=== PATIENT | female | born 1955 | race Caucasian/White ===

== ENCOUNTER 2018-01-29 15:03 | Outpatient (RCR) | payer MEDICARE, OTHER, SELFPAY ==
[2018-01-19 16:02] LABS: Absolute Lymphocyte Count 0.81 X10^3/ul (0.83-4.51); Absolute Neutrophil Count 1.9 X10^3/uL (2.0-7.7); Basophil# 0.02 X10^3/uL; Basophil% 0.6 % (0-1); Eosinophil# 0.22 X10^3/uL; Eosinophils% 6.7 % (0-5); Hemoglobin 8.3 g/dl (12.0-15.0); Lymphocyte # 0.81 X10^3/ul (4.0); Lymphocyte % 24.8 % (19-41); Mean Corp Hgb Conc 30.7 g/gl (32-36); Mean Corpuscular Hgb 25.9 pg (27.0-32.0); Mean Corpuscular Volume 84.4 fL (81-99); Mean Platelet Vol. 9.1 fl (6.2-12.0); Monocyte# 0.32 X10^3/uL; Monocyte% 9.8 % (0-10); Neutrophil # 1.89 X10^3/uL (2.7-7.7); Neutrophil % 58.1 % (47-70); Platelet Count 79 K/mm3 (150-450); RBC Distribution Width CV 19.3 % (11.6-14.6); RBC Distribution Width SD 58.7 fl (35.1-43.9); White Blood Count 3.3 K/mm3 (4.4-11.0)
[2018-01-19 16:03] LABS: POSITIVE COUNT NO; POSITIVE DIFFERENTIAL NO; POSITIVE MORPHOLOGY NO
[2018-01-19 16:08] LABS: Vancomycin, Trough Level 22.3 ug/mL (5.0-15.0)
[2018-01-19 16:10] LABS: AST(SGOT) 49 U/L (15-37); Alanine Aminotransfer ALT/SGPT 23 U/L (13-56); Albumin, Serum 2.9 g/dL (3.2-5.0); Alkaline Phosphatase 145 U/L (45-117); Anion Gap 8 (5-15); BUN 27 mg/dL (7-18); Calcium,Total 8.3 mg/dL (8.5-10.1); Chloride 108 mmol/L (98-107); Creatinine, Serum 1.69 mg/dL (0.55-1.02); EST Glomerular Filtration Rate 32 mL/min (>60); Est Glom Filt Rate - Afr Amer 39 mL/min (>60); Glucose 183 mg/dL (74-106); Potassium 3.7 mmol/L (3.5-5.1); Protein, Total 6.9 g/dL (6.4-8.2); Sodium Level 141 mmol/L (136-145)
[2018-01-19 16:15] LABS: Erythrocyte Sedimentation Rate 9 mm/hr (0-30)
[2018-01-22 14:21] LABS: Anion Gap 9 (5-15); BUN 22 mg/dL (7-18); BUN/Creat Ratio 13.6 RATIO (10-20); Calcium,Total 8.2 mg/dL (8.5-10.1); Chloride 109 mmol/L (98-107); Creatinine, Serum 1.62 mg/dL (0.55-1.02); EST Glomerular Filtration Rate 34 mL/min (>60); Est Glom Filt Rate - Afr Amer 41 mL/min (>60); Glucose 174 mg/dL (74-106); Potassium 3.5 mmol/L (3.5-5.1); Sodium Level 140 mmol/L (136-145)
[2018-01-24 13:38] LABS: Creatinine, Serum 1.47 mg/dL (0.55-1.02); EST Glomerular Filtration Rate 38 mL/min (>60); Est Glom Filt Rate - Afr Amer 46 mL/min (>60)
[2018-01-24 13:58] LABS: Vancomycin, Trough Level 18.7 ug/mL (5.0-15.0)
[2018-01-27 14:06] LABS: Absolute Lymphocyte Count 0.82 X10^3/ul (0.83-4.51); Absolute Neutrophil Count 1.7 X10^3/uL (2.0-7.7); Basophil# 0.02 X10^3/uL; Basophil% 0.7 % (0-1); Eosinophil# 0.25 X10^3/uL; Eosinophils% 8.2 % (0-5); Hematocrit 26.2 % (37-47); Hemoglobin 8.1 g/dl (12.0-15.0); Lymphocyte # 0.82 X10^3/ul (4.0); Lymphocyte % 26.8 % (19-41); Mean Corp Hgb Conc 30.9 g/gl (32-36); Mean Corpuscular Hgb 25.2 pg (27.0-32.0); Mean Corpuscular Volume 81.4 fL (81-99); Mean Platelet Vol. 10.1 fl (6.2-12.0); Monocyte# 0.32 X10^3/uL; Monocyte% 10.5 % (0-10); Neutrophil # 1.65 X10^3/uL (2.7-7.7); Neutrophil % 53.8 % (47-70); Platelet Count 99 K/mm3 (150-450); RBC Distribution Width SD 51.4 fl (35.1-43.9); Red Blood Count 3.22 M/mm3 (4.2-5.4); White Blood Count 3.1 K/mm3 (4.4-11.0)
[2018-01-27 14:07] LABS: POSITIVE COUNT NO; POSITIVE DIFFERENTIAL NO; POSITIVE MORPHOLOGY NO
[2018-01-27 14:20] LABS: AST(SGOT) 39 U/L (15-37); Alanine Aminotransfer ALT/SGPT 20 U/L (13-56); Albumin, Serum 2.8 g/dL (3.2-5.0); Alkaline Phosphatase 154 U/L (45-117); Anion Gap 10 (5-15); BUN 21 mg/dL (7-18); BUN/Creat Ratio 12.1 RATIO (10-20); Calcium,Total 8.1 mg/dL (8.5-10.1); Chloride 108 mmol/L (98-107); Creatinine, Serum 1.73 mg/dL (0.55-1.02); EST Glomerular Filtration Rate 32 mL/min (>60); Est Glom Filt Rate - Afr Amer 38 mL/min (>60); Globulin 3.9 g/dL (2.2-4.2); Glucose 121 mg/dL (74-106); Potassium 3.8 mmol/L (3.5-5.1); Protein, Total 6.7 g/dL (6.4-8.2); Sodium Level 143 mmol/L (136-145)
[2018-01-27 14:22] LABS: Vancomycin, Trough Level 19.6 ug/mL (5.0-15.0)
[2018-01-29 15:26] LABS: Anion Gap 11 (5-15); BUN 22 mg/dL (7-18); Calcium,Total 8.1 mg/dL (8.5-10.1); Chloride 107 mmol/L (98-107); Creatinine, Serum 1.47 mg/dL (0.55-1.02); EST Glomerular Filtration Rate 38 mL/min (>60); Est Glom Filt Rate - Afr Amer 46 mL/min (>60); Glucose 285 mg/dL (74-106); Potassium 3.9 mmol/L (3.5-5.1); Sodium Level 140 mmol/L (136-145)
[2018-01-29 15:28] LABS: Vancomycin, Trough Level 15.4 ug/mL (5.0-15.0)
== END 2018-01-31 23:59 ==
LOC: HHLAB 15:03
PROVIDERS: Family Provider Family Medicine; PCP Family Medicine
DX: I12.9 Hypertensive chronic kidney disease with stage 1 through stage 4 chronic kidney disease, or unspecified chronic kidney disease (principal); G93.40 Encephalopathy, unspecified; S81.852A Open bite, left lower leg, initial encounter; L03.116 Cellulitis of left lower limb
CPT/HCPCS: 80048; 80076; 80202; 82565; 85025; 85652; 86140

== ENCOUNTER → 2018-07-21 09:14 | Outpatient (CLI) | payer MEDICARE, OTHER, SELFPAY ==
[2018-07-21 10:35] LABS: Hematocrit 23.9 % (37-47); Hemoglobin 7.8 g/dl (12.0-15.0); Mean Corp Hgb Conc 32.6 g/gl (32-36); Mean Corpuscular Hgb 27.2 pg (27.0-32.0); Mean Corpuscular Volume 83.3 fL (81-99); RBC Distribution Width CV 16.5 % (11.6-14.6); RBC Distribution Width SD 51.1 fl (35.1-43.9); Red Blood Count 2.87 M/mm3 (4.2-5.4)
[2018-07-21 10:43] LABS: ALB/GLOB Ratio 0.8 RATIO (0.9-2.4); AST(SGOT) 21 U/L (15-37); Alanine Aminotransfer ALT/SGPT 30 U/L (13-56); Albumin, Serum 2.3 g/dL (3.2-5.0); Alkaline Phosphatase 188 U/L (45-117); Anion Gap 8 (5-15); BUN 49 mg/dL (7-18); BUN/Creat Ratio 28.8 RATIO (10-20); Calcium,Total 7.3 mg/dL (8.5-10.1); Chloride 108 mmol/L (98-107); EST Glomerular Filtration Rate 32 mL/min (>60); Est Glom Filt Rate - Afr Amer 39 mL/min (>60); Globulin 2.9 g/dL (2.2-4.2); Glucose 131 mg/dL (74-106); Potassium 3.5 mmol/L (3.5-5.1); Protein, Total 5.2 g/dL (6.4-8.2); Sodium Level 141 mmol/L (136-145)
[2018-07-21 10:44] LABS: Differential Indicated MANUAL DIFF; POSITIVE COUNT YES; POSITIVE DIFFERENTIAL YES; POSITIVE MORPHOLOGY YES; Platelet Count 17 K/mm3 (150-450); White Blood Count 0.2 K/mm3 (4.4-11.0)
[2018-07-21 10:55] LABS: Neutrophil-Segmented 8 % (47-70); Total Cells Counted 25 (MANUAL DIFF)
[2018-07-21 10:56] LABS: Eosinophil 16 % (0-5); Lymphocyte 68 % (19-41); Monocyte 8 % (0-10); Platelet Estimate MKD DEC (ADEQ); Platelet Morphology LARGE; Red Cell Morphology NORM C+C NORMAL (NORM C&C)
[2018-07-21 10:57] LABS: Neutrophil # 0.02 X10^3/uL (2.7-7.7)
[2018-07-21 10:58] LABS: Absolute Lymphocyte Count 0.14 X10^3/ul (0.83-4.51); Lymphocyte # 0.14 X10^3/ul (4.0)
[2018-07-21 14:59] LABS: Pathologist Review Reviewed
--- OUTSIDE RECORDS SUMMARY | 2018-10-22 16:24 | XMS RPT_ITS ---
:1955 Author Organization OHIP Support Name Relationship Address Phone D Unavailable Unavailable Unavailable ALYCIA DILLON Unavailable [address] + [place] [address] DOMINGO, MAGO Unavailable Unavailable Unavailable ALYCIA DILLON Unavailable [address] + [place] [address] KIM DILLON Unavailable Unavailable Unavailable DOMINGO MAGO Unavailable Unavailable Unavailable ALYCIA DILLON Unavailable [address] + [place] [address] KIM DILLON Unavailable Unavailable Unavailable D Unavailable Unavailable Unavailable ALYCAI DILLON Unavailable [address] + [place] [address] D Unavailable Unavailable Unavailable ALYCIA DILLON Unavailable [address] + [place] [address] CHAYO MAGO Unavailable Unavailable Unavailable ALYCIA DILLON Unavailable [address] + [place] [address] KIM DILLON Unavailable Unavailable Unavailable DOMINGO MAGO Unavailable Unavailable Unavailable ALYCIA DILLON Unavailable [address] + [place] [address] KIM DILLON Unavailable Unavailable Unavailable DOMINGO MAGO Unavailable Unavailable Unavailable ALYCIA DILLON Unavailable [address] + [place] [address] KIM DILLON Unavailable Unavailable Unavailable DOMINGO, MAGO Unavailable Unavailable Unavailable ALYCIA DILLON Unavailable [address] + [place] [address] KIM DILLON Unavailable Unavailable Unavailable DOMINGO MAGO Unavailable Unavailable Unavailable ALYCIA DILLON Unavailable [address] + [place] [address] KMI DILLON Unavailable Unavailable Unavailable DOMINGO MAGO Unavailable Unavailable Unavailable ALYCIA DILLON Unavailable [address] + [place] [address] DILLON, KIM Unavailable Unavailable Unavailable DOMINGO, MAGO Unavailable Unavailable Unavailable ALYCIA DILLNO Unavailable [address] + [place] [address] DILLON, KIM Unavailable Unavailable Unavailable DOMINGO, MAGO Unavailable Unavailable Unavailable ALYCIA DILLON Unavailable [address] + [place] [address] DILLON, KIM Unavailable Unavailable Unavailable DOMINGO, MAGO Unavailable Unavailable Unavailable ALYCIA DILLON Unavailable [address] + [place] [address] DILLON, KIM Unavailable Unavailable Unavailable DOMINGO, MAGO Unavailable Unavailable Unavailable ALYCIA DILLON Unavailable [address] + [place] [address] SANTANA KIM Unavailable Unavailable Unavailable D Unavailable Unavailable Unavailable ALYCIA DILLON Unavailable [address] + [place] [address] D Unavailable Unavailable Unavailable Alycia Dillon Unavailable [address] + [place] [address] D Unavailable Unavailable Unavailable Alycia Dillon Unavailable [address] + [place] [address] ALYCIA DILLON Unavailable Unavailable + DOMINGO, MAGO Unavailable Unavailable Unavailable ALYCIA DILLON Unavailable [address] + [place] [address] SANTANA KIM Unavailable Unavailable Unavailable DOMINGO, MAGO Unavailable Unavailable Unavailable ALYCIA DILLON Unavailable [address] + [place] [address] DILLON, KIM Unavailable Unavailable Unavailable DOMINGO, MAGO Unavailable Unavailable Unavailable ALYCIA DILLON Unavailable [address] + [place] [address] DILLON, KIM Unavailable Unavailable Unavailable DOMINGO, MAGO Unavailable Unavailable Unavailable ALYCIA DILLON Unavailable [address] + [place] [address] DILLON, KIM Unavailable Unavailable Unavailable DOMINGO, MAGO Unavailable Unavailable Unavailable ALYCIA DILLON Unavailable [address] + [place] [address] DILLON, KIM Unavailable Unavailable Unavailable DOMINGO, MAGO Unavailable Unavailable Unavailable MARC DILLONON Unavailable [address] + [place] [address] DILLON, KIM Unavailable Unavailable Unavailable DOMINGO, MAGO Unavailable Unavailable Unavailable ALYCIA DILLON Unavailable [address] + [place] [address] DILLON, KIM Unavailable Unavailable Unavailable DOMINGO, MAGO Unavailable Unavailable Unavailable MARC DILLONON Unavailable [address] + [place] [address] DILLON, KIM Unavailable Unavailable Unavailable DOMINGO, MAGO Unavailable Unavailable Unavailable SANTANA ALYCIA Unavailable [address] + [place] [address] DILLON, KIM Unavailable Unavailable Unavailable DOMINGO, MAGO Unavailable Unavailable Unavailable ALYCIA DILLON Unavailable [address] + [place] [address] DILLON, KIM Unavailable Unavailable Unavailable DOMINGO, MAGO Unavailable Unavailable Unavailable ALYCIA DILLON Unavailable [address] + [place] [address] DILLON, KIM Unavailable Unavailable Unavailable DOMINGO, MAGO Unavailable Unavailable Unavailable ALYCIA DILLON Unavailable [address] + [place] [address] DILLON, KIM Unavailable Unavailable Unavailable DOMINGO, MAGO Unavailable Unavailable Unavailable ALYCIA DILLON Unavailable [address] + [place] [address] DILLON, KIM Unavailable Unavailable Unavailable DOMINGO, MAGO Unavailable Unavailable Unavailable ALYCIA DILLON Unavailable [address] + [place] [address] DILLON, KIM Unavailable Unavailable Unavailable DOMINGO, MAGO Unavailable Unavailable Unavailable SANTANA ALYCIA Unavailable [address] + [place] [address] DILLON, KIM Unavailable Unavailable Unavailable DOMINGO, MAGO Unavailable Unavailable Unavailable ALYCIA DILLON Unavailable [address] + [place] [address] DILLON, KIM Unavailable Unavailable Unavailable ALYCIA DILLON Unavailable Unavailable + ALYCIA DILLON Unavailable Unavailable + ALYCIA DILLON Unavailable Unavailable + DOMINGO, MAGO Unavailable Unavailable Unavailable ALYCIA DILLON Unavailable [address] + [place] [address] EPI DILLONORAH Unavailable Unavailable Unavailable DOMINGO, MAGO Unavailable Unavailable Unavailable ALYCIA DILLON Unavailable [address] + [place] [address] EPI DILLONORAH Unavailable Unavailable Unavailable ALYCIA DILLON Unavailable Unavailable + DOMINGO, MAGO Unavailable Unavailable Unavailable ALYCIA DILLON Unavailable [address] + [place] [address] SANTANA KIM Unavailable Unavailable Unavailable DOMINGO, MAGO Unavailable Unavailable Unavailable ALYCIA DILLON Unavailable [address] + [place] [address] EPI DILLONORAH Unavailable Unavailable Unavailable DOMINGO, MAGO Unavailable Unavailable Unavailable ALYCIA DILLON Unavailable [address] + [place] [address] EPI DILLONORAH Unavailable Unavailable Unavailable DOMINGO, MAGO Unavailable Unavailable Unavailable ALYCIA DILLON Unavailable [address] + [place] [address] EPI DILLONORAH Unavailable Unavailable Unavailable ALYCIA DILLON Unavailable Unavailable + D Unavailable Unavailable Unavailable Alycia Dillon Unavailable [address] + [place] [address] DOMINGO, MAGO Unavailable Unavailable Unavailable ALYCIA DILLON Unavailable [address] + [place] [address] EPI DILLONORAH Unavailable Unavailable Unavailable D Unavailable Unavailable Unavailable Alycia Dillon Unavailable [address] + [place] [address] ALYCIA DILLON Unavailable Unavailable + D Unavailable Unavailable Unavailable Alycia Dillon Unavailable [address] + [place] [address] DOMINGO, MAGO Unavailable Unavailable Unavailable ALYCIA DILLON Unavailable [address] + [place] [address] EPI DILLONORAH Unavailable Unavailable Unavailable D Unavailable Unavailable Unavailable Alycia Dillon Unavailable [address] + [place] [address] D Unavailable Unavailable Unavailable Alycia Dillon Unavailable [address] + [place] [address] TREY DOMINGOA Unavailable Unavailable Unavailable ALYCIA DILLON Unavailable [address] + [place] [address] DEVANG DILLONH Unavailable Unavailable Unavailable D Unavailable Unavailable Unavailable ALYCIA DILLON Unavailable [address] + [place] [address] D Unavailable Unavailable Unavailable Alycia Dillon Unavailable [address] + [place] [address] DOMINGO, MAGO Unavailable Unavailable Unavailable ALYCIA DILLON Unavailable [address] + [place] [address] EPI DILLONORAH Unavailable Unavailable Unavailable DOMINGO, MAGO Unavailable Unavailable Unavailable ALYCIA DILLON Unavailable [address] + [place] [address] KIM DILLON Unavailable Unavailable Unavailable D Unavailable Unavailable Unavailable Alycia Dillon Unavailable [address] + [place] [address] ALYCIA DILLON Unavailable Unavailable + D Unavailable Unavailable Unavailable ALYCIA DILLON Unavailable [address] + [place] [address] DOMINGO, MAGO Unavailable Unavailable Unavailable ALYCIA DILLON Unavailable [address] + [place] [address] EPI DILLONORAH Unavailable Unavailable Unavailable DOMINGO, MAGO Unavailable Unavailable Unavailable ALYCIA DILLON Unavailable [address] + [place] [address] SANTANA KIM Unavailable Unavailable Unavailable DOMINGO, MAGO Unavailable Unavailable Unavailable ALYCIA DILLON Unavailable [address] + [place] [address] EPI DILLONORAH Unavailable Unavailable Unavailable DOMINGO, MAGO Unavailable Unavailable Unavailable ALYCIA DILLON Unavailable [address] + [place] [address] EPI DILLONORAH Unavailable Unavailable Unavailable DOMINGO, MAGO Unavailable Unavailable Unavailable ALYCIA DILLON Unavailable [address] + [place] [address] DILLON, KIM Unavailable Unavailable Unavailable ALYCIA DILLON Unavailable Unavailable + MARC DILLONON Unavailable Unavailable + DOMINGO, MAGO Unavailable Unavailable Unavailable ALYCIA DILLON Unavailable [address] + [place] [address] DILLON, KIM Unavailable Unavailable Unavailable DOMINGO, MAGO Unavailable Unavailable Unavailable ALYCIA DILLON Unavailable [address] + [place] [address] DILLON, KIM Unavailable Unavailable Unavailable DOMINGO, MAGO Unavailable Unavailable Unavailable ALYCIA DILLON Unavailable [address] + [place] [address] DILLON, KIM Unavailable Unavailable Unavailable DOMINGO, MAGO Unavailable Unavailable Unavailable ALYCIA DILLON Unavailable [address] + [place] [address] DILLON, KIM Unavailable Unavailable Unavailable DOMINGO, MAGO Unavailable Unavailable Unavailable ALYCIA DILLON Unavailable [address] + [place] [address] DILLON, KIM Unavailable Unavailable Unavailable DOMINGO, MAGO Unavailable Unavailable Unavailable ALYCIA DILLON Unavailable [address] + [place] [address] DILLON, KIM Unavailable Unavailable Unavailable DOMINGO, MAGO Unavailable Unavailable Unavailable ALYCIA DILLON Unavailable [address] + [place] [address] DILLON, KIM Unavailable Unavailable Unavailable DOMINGO, MAGO Unavailable Unavailable Unavailable ALYCIA DILLON Unavailable [address] + [place] [address] DILLON, KIM Unavailable Unavailable Unavailable DOMINGO, MAGO Unavailable Unavailable Unavailable ALYCIA DILLON Unavailable [address] + [place] [address] DILLON, KIM Unavailable Unavailable Unavailable DOMINGO, MAGO Unavailable Unavailable Unavailable ALYCIA DILLON Unavailable [address] + [place] [address] DILLON, KIM Unavailable Unavailable Unavailable DOMINGO, MAGO Unavailable Unavailable Unavailable MARC DILLONON Unavailable [address] + [place] [address] DILLON, KIM Unavailable Unavailable Unavailable DOMINGO, MAGO Unavailable Unavailable Unavailable SANTANA ALYCIA Unavailable [address] [facility] [address] + [place] [address] KIM DILLON Unavailable Unavailable Unavailable Care Team Providers Name Role Phone ALDEN ARGUELLES Attending Unavailable ALDEN ARGUELLES Referring Unavailable Emanuel, Azul Primary Care Unavailable Karen, Rita E Attending Unavailable Emanuel, Azul Primary Care Unavailable ALDEN ARGUELLES Attending Unavailable ALDEN ARGUELLES Referring Unavailable Emanuel, Azul Primary Care Unavailable ALDEN ARGUELLES Attending Unavailable ALDEN ARGUELLES Referring Unavailable Tourlas, Carlos Primary Care Unavailable Headley, Kike Attending Unavailable Headley, Kike Attending Unavailable Headley, Kike Attending Unavailable Headley, Kike Attending Unavailable Headley, Kike Attending Unavailable Headley, Kike Attending Unavailable Headley, Kike Attending Unavailable Karen, Rita E Attending Unavailable Emanuel, Azul Primary Care Unavailable Karen, Rita E Consulting Unavailable Karen, Rita E Attending Unavailable Emanuel, Azul Primary Care Unavailable Ryan Quarles Attending Unavailable Tourlas, Carlos Primary Care Unavailable ALDEN ARGUELLES Attending Unavailable ALDEN ARGUELLES Referring Unavailable Tourlas, Carlos Primary Care Unavailable EMANUEL, AZUL L Primary Care Unavailable SIRNI MAURICIO Admitting Unavailable CONSULT, INFECTIOUS DISEASE Consulting Unavailable DEANDRA DANIELS Attending Unavailable EMANUEL, AZUL L Primary Care Unavailable BRIAN Flynn MUKHERJEE Admitting Unavailable SINDY POPE Attending Unavailable TYE CHAPA Attending Unavailable SELF, SELF Referring Unavailable EMANUEL, AZUL L Primary Care Unavailable JESSY BLACKMON Attending Unavailable EMANUEL, AZUL L Referring Unavailable EMANUEL, AZUL L Primary Care Unavailable TYE CHAPA Attending Unavailable EMANUEL, AZUL L Referring Unavailable EMANUEL, AZUL L Primary Care Unavailable JESSY BLACKMON Attending Unavailable JESSY BLACKMON A ENOCH Referring Unavailable EMANUEL, AZUL L Primary Care Unavailable PACO KIMBLE Attending Unavailable EMANUEL, AZUL L Referring Unavailable EMANUEL, AZUL L Primary Care Unavailable MARVIN JUAREZ Attending Unavailable NARESH FERNANDEZ Referring Unavailable EMANUEL, AZUL L Primary Care Unavailable DAVONTE, GARRETT Admitting Unavailable DAVONTE, GARRETT Attending Unavailable EMANUEL, AZUL L Primary Care Unavailable SRINI RODRÍGUEZ Attending Unavailable HANJE, AH A ENOCH Referring Unavailable EMANUEL, AZUL L Primary Care Unavailable LUNAMAVERICK Attending Unavailable EMANUEL, AZUL L Referring Unavailable EMANUEL, AZUL L Primary Care Unavailable HANJE, AH A ENOCH Referring Unavailable EMANUEL, AZUL L Primary Care Unavailable HANJE, AH A ENOCH Attending Unavailable EMANUEL, AZUL L Referring Unavailable EMANUEL, AZUL L Primary Care Unavailable ODALYS DAVIS Attending Unavailable HANJE, AH A ENOCH Referring Unavailable EMANUEL, AZUL L Primary Care Unavailable Mp AVENDANO Attending Unavailable HANJE, AH A ENOCH Referring Unavailable EMANUEL, AZUL L Primary Care Unavailable EMANUEL, AZUL L Primary Care Unavailable EFRAIN, SITARAMESH Admitting Unavailable EFRAIN, SITARAMESH Attending Unavailable WALKER, MAGO N Attending Unavailable WALKER, MAGO N Referring Unavailable EMANUEL, AZUL L Primary Care Unavailable HANJE, AH A ENOCH Attending Unavailable HANJE, AH A ENOCH Referring Unavailable EMANUEL, AZUL L Primary Care Unavailable SHYANNE, AHMAD Attending Unavailable EMANUEL, AZUL L Referring Unavailable EMANUEL, AZUL L Primary Care Unavailable TERRIBSCOURTNEY, AHJAMESD Attending Unavailable SHABSIGH, AHMAD Referring Unavailable EMANUEL, AZUL L Primary Care Unavailable LOKESH CREWS Attending Unavailable EMANUEL, AZUL L Referring Unavailable EMANUEL, AZUL L Primary Care Unavailable LUNA, MAVERICK A Attending Unavailable LUNA, MAVERICK A Referring Unavailable EMANUEL, AZUL L Primary Care Unavailable IHISSCHEDULE, ENDOSCOPY Admitting Unavailable IHISSCHEDULE, ENDOSCOPY Attending Unavailable EMANUEL, AZUL L Primary Care Unavailable WALKER, MAGO N Attending Unavailable WALKER, MAGO N Referring Unavailable EMANUEL, AZUL L Primary Care Unavailable WALKER, MAGO N Attending Unavailable WALKER, MAGO N Referring Unavailable EMANUEL, AZUL L Primary Care Unavailable SHABSIGH, AHMAD Attending Unavailable EMANUEL, AZUL L Referring Unavailable EMANUEL, AZUL L Primary Care Unavailable SRINI RODRÍGUEZ Attending Unavailable EMANUEL, AZUL L Referring Unavailable EMANUEL, AZUL L Primary Care Unavailable LUNA, MAVERICK A Attending Unavailable EMANUEL, AZUL L Referring Unavailable EMANUEL, AZUL L Primary Care Unavailable LUNA, MAVERICK A Attending Unavailable LUNA, MAVERICK A Referring Unavailable EMANUEL, AZUL L Primary Care Unavailable MADDIE CANTRELL Attending Unavailable PACO KIMBLE Referring Unavailable EMANUEL, AZUL L Primary Care Unavailable MORTAZAVI, AMIR Attending Unavailable RAIMUNDO, CATHY L Referring Unavailable EMANUEL, AZUL L Primary Care Unavailable RAIMUNDO, CATHY L Attending Unavailable RAIMUNDO, CATHY L Referring Unavailable EMANUEL, AZUL L Primary Care Unavailable RAIMUNDO, CATHY L Attending Unavailable RAIMUNDO, CATHY L Referring Unavailable EMANUEL, AZUL L Primary Care Unavailable EMANUEL, AZUL L Primary Care Unavailable CONSULT, UROLOGY Consulting Unavailable LEANNE HERRERA Admitting Unavailable SAMUEL CANSECO Attending Unavailable TYE MURPHY Referring Unavailable EMANUEL, AZUL L Primary Care Unavailable AC, AMRIT Referring Unavailable EMANUEL, AZUL L Primary Care Unavailable MORTAZAVI, AMIR Attending Unavailable MORTAZAVI, AMIR Referring Unavailable EMANUEL, AZUL L Primary Care Unavailable MORTAZAVI, AMIR Attending Unavailable MORTAZAVI, AMIR Referring Unavailable EMANUEL, AZUL L Primary Care Unavailable RAIMUNDO, CATHY L Attending Unavailable RAIMUNDO, CATHY L Referring Unavailable EMANUEL, AZUL L Primary Care Unavailable RAIMUNDO, CATHY L Attending Unavailable RAIMUNDO, CATHY L Referring Unavailable EMANUEL, AZUL L Primary Care Unavailable AC, AMRIT Referring Unavailable EMANUEL, AZUL L Primary Care Unavailable TAYA LINCOLN Attending Unavailable SINDY CHERRY Attending Unavailable AC, AMRIT Referring Unavailable EMANUEL, AZUL L Primary Care Unavailable AC, AMRIT Referring Unavailable EMANUEL, AZUL L Primary Care Unavailable YUAN HAYNES Attending Unavailable AC, AMRIT Referring Unavailable EMANUEL, AZUL L Primary Care Unavailable SINDY CHERRY Attending Unavailable SPEECKAERT, ALDEN L Attending Unavailable SPEECKAERT, ALDEN L Referring Unavailable EMANUEL, AZUL L Primary Care Unavailable AC, AMRIT Referring Unavailable EMANUEL, AZUL L Primary Care Unavailable AC, AMRIT Referring Unavailable EMANUEL, AZUL L Primary Care Unavailable AC, AMRIT Referring Unavailable EMANUEL, AZUL L Primary Care Unavailable AC, AMRIT Referring Unavailable EMANUEL, AZUL L Primary Care Unavailable LINNEA JOLLY Attending Unavailable SAMUEL CANSECO Referring Unavailable EMANUEL, AZUL L Primary Care Unavailable NATALIA CARMONA Attending Unavailable AYYAPPAN, SABARISH R Admitting Unavailable TYLER, RUMA P Referring Unavailable EMANUEL, AZUL L Primary Care Unavailable CONSULT, INFECTIOUS DISEASE Consulting Unavailable KWAME CHERRY Attending Unavailable SAMARITAN, SAMUEL BONNIE Attending Unavailable MATHEW, NATALIA Referring Unavailable EMANUEL, AZUL L Primary Care Unavailable SAMARITAN, SAMUEL BONNIE Attending Unavailable MATHEW, NATALIA Referring Unavailable EMANUEL, AZUL L Primary Care Unavailable SAMARITAN, SAMUEL BONNIE Attending Unavailable MATHEW, NATALIA Referring Unavailable EMANUEL, AZUL L Primary Care Unavailable SAMARITAN, SAMUEL BONNIE Attending Unavailable MATHEW, NATALIA Referring Unavailable EMANUEL, AZUL L Primary Care Unavailable SAMARITAN, SAMUEL BONNIE Attending Unavailable MATHEW, NATALIA Referring Unavailable EMANUEL, AZUL L Primary Care Unavailable Emanuel, Azul L Attending Unavailable Emanuel, Azul L Primary Care Unavailable Emanuel, Azul L Admitting Unavailable Emanuel, Azul L Attending Unavailable Emanuel, Azul L Primary Care Unavailable Emanuel, Azul L Admitting Unavailable Emanuel, Azul L Admitting Unavailable Emanuel, Azul L Attending Unavailable Emanuel, Azul L Primary Care Unavailable Emanuel, Azul L Attending Unavailable Emanuel, Azul L Primary Care Unavailable Emanuel, Azul L Admitting Unavailable NovyMago M Admitting Unavailable NovyMago M Attending Unavailable Emanuel, Azul L Primary Care Unavailable Emanuel, Azul L Admitting Unavailable Emanuel, Azul L Attending Unavailable Emanuel, Azul L Primary Care Unavailable Emanuel, Azul L Attending Unavailable Emanuel, Azul L Primary Care Unavailable Emanuel, Azul L Admitting Unavailable Emanuel, Azul L Attending Unavailable Emanuel, Azul L Primary Care Unavailable Ulysses, Kyle Admitting Unavailable Ulysses, Kyle Attending Unavailable Emanuel, Azul L Primary Care Unavailable Emanuel, Azul L Primary Care Unavailable Ivanauskas, Saulius Admitting Unavailable Ivanauskas, Saulius Attending Unavailable Emanuel, Azul L Primary Care Unavailable Enoch Duckworth Admitting Unavailable Enoch Duckworth Attending Unavailable Tobi Colvin Consulting Unavailable Emanuel, Azul L Attending Unavailable Emanuel, Azul L Primary Care Unavailable Emanuel, Azul L Admitting Unavailable Emanuel, Azul L Attending Unavailable Emanuel, Azul L Primary Care Unavailable Tobi Colvin Attending Unavailable Emanuel, Azul L Primary Care Unavailable Emanuel, Azul L Admitting Unavailable Emanuel, Azul L Attending Unavailable Emanuel, Azul L Primary Care Unavailable Emnauel, Azul L Primary Care Unavailable Sara, Radames A Admitting Unavailable Sara, Radames A Attending Unavailable Emanuel, Azul L Attending Unavailable Emanuel, Azul L Primary Care Unavailable Emanuel, Azul L Attending Unavailable Emanuel, Azul L Primary Care Unavailable Emanuel, Azul L Primary Care Unavailable Ivanauskas, Saulius Admitting Unavailable Ivanauskas, Saulius Attending Unavailable Emanuel, Azul L Attending Unavailable Emanuel, Azul L Primary Care Unavailable Yolie Rice Attending Unavailable Emanuel, Azul L Primary Care Unavailable Srini Rodríguez Admitting Unavailable JamirSrini sethi P Attending Unavailable Emanuel, Azul L Primary Care Unavailable Emanuel, Azul L Admitting Unavailable Emanuel, Azul L Attending Unavailable Emanuel, Azul L Primary Care Unavailable Ulysses, Kyle Admitting Unavailable UlyssesJalilKyle Attending Unavailable Emanuel, Azul L Primary Care Unavailable Emanuel, Azul L Admitting Unavailable Emanuel, Azul L Attending Unavailable Emanuel, Azul L Primary Care Unavailable Aaron Narayan Admitting Unavailable Aaron Narayan Attending Unavailable Emanuel, Azul L Primary Care Unavailable Aaron Narayan Admitting Unavailable Aaron Narayan Attending Unavailable Emanuel, Azul L Primary Care Unavailable Maverick Luna Admitting Unavailable Maverick Luna Attending Unavailable Emanuel, Azul L Primary Care Unavailable AARON NARAYAN MD. Attending Unavailable AARON NARAYAN MD. Referring Unavailable Emanuel, Ms. Azul Hope Primary Care Unavailable Emanuel, Ms. Azul Herminia Primary Care Unavailable Emanuel, Ms. Azul Herminia Primary Care Unavailable Emanuel, Ms. 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, not [facility] elsewhere classified Center / E88.09(ICD-10) Repository 08/14/2018 Admitting Abnormal findings on KWAME CHERRY Active [facility] diagnosis diagnostic imaging University of other specified [facility] body structures / Center R93.89(ICD-10) Repository 08/14/2018 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, University unspecified site / [facility] C83.30(ICD-10) Center Repository 08/14/2018 Admitting Acute kidney KWAME CHERRY Active [facility] diagnosis failure, unspecified University / N17.9(ICD-10) [facility] Repository 08/12/2018 Admitting Chronic kidney KWAME CHERRY Active [facility] diagnosis disease, stage 3 University (moderate) / [facility] N18.3(ICD-10) Center Repository 08/06/2018 Admitting Encephalopathy, KWAME CHERRY Active [facility] diagnosis unspecified / University G93.40(ICD-10) [facility] Repository 08/03/2018 Admitting Cellulitis of left KWAME CHERRY Active [facility] diagnosis lower limb / University L03.116(ICD-10) [facility] 07/31/2018 Admitting Obstructive sleep KWAME CHERRY BABS [facility] diagnosis apnea (adult) University (pediatric) / [facility] G47.33(ICD-10) [facility] Rep[facility] 07/24/2018 Admitting Other specified KWAME CHERRY Active [facility] [place] [facility] diagnosis disorders of bladder [place] / N32.89(ICD-10) [facility] 07/23/2018 Admitting Cellulitis of KWAME CHERRY Active [facility] diagnosis unspecified part of University limb / [facility] L03.119(ICD-10) [facility] 07/22/2018 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, extranodal University and solid organ [facility] sites / Center C85.19(ICD-10) Repository 07/22/2018 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, University unspecified / [facility] C67.9(ICD-10) [facility] 07/22/2018 Admitting Encounter for KWAME CHERRY Active [facility] [place] [facility] diagnosis palliative care / University Z51.5(ICD-10) [facility] 07/22/2018 Admitting Follow-up / 145() ALDEN HAMILTON Active [facility] [place] [facility] diagnosis L University [facility] 07/22/2018 Admitting New Patient / ALDEN HAMILTON Active [facility] diagnosis [id number]() L [facility] Repository 07/23/2018 Admitting Cellulitis, NATALIA CARMONA Active [facility] diagnosis unspecified / University L03.90(ICD-10) [facility] 07/22/2018 Admitting Other pancytopenia / NATALIA CARMONA Active [facility] diagnosis D61.818(ICD-10) [facility] Repository 07/22/2018 Admitting Sepsis, unspecified MATHEW NATALIA Active [facility] [place] [facility] diagnosis organism / University A41.9(ICD-10) [facility] 07/22/2018 Admitting Edema, unspecified / NATALIA CARMONA Active [facility] diagnosis R60.9(ICD-10) [facility] Repository 07/22/2018 Admitting Shortness of breath MATHEW NATALIA [facility] diagnosis / R06.02(ICD-10) [facility] Repository 07/22/2018 Admitting Pain in left hip / MATHEW NATALIA [facility] diagnosis M25.552(ICD-10) [facility] Repository 07/14/2018 Admitting Anemia, unspecified NATALIA CARMONA [facility] diagnosis / D64.9(ICD-10) [facility] Repository 04/08/2018 Admitting Nonalcoholic IHISSCHEDULE, [facility] diagnosis steatohepatitis [facility] (RYAN) / [facility] K75.81(ICD-10) [facility] 04/08/2018 Admitting Unspecified IHISSCHEDULE, [facility] diagnosis cirrhosis of liver / [facility] K74.60(ICD-10) [facility] 07/13/2018 Admitting Pyogenic arthritis, SAMARITAN, SAMUEL Active [facility] [place] [facility] diagnosis unspecified / [facility] M00.9(ICD-10) [facility] 07/07/2018 Admitting Neoplasm related SAMARITAN, SAMUEL [facility] diagnosis pain (acute) [facility] (chronic) / [facility] G89.3(ICD-10) [facility] 07/07/2018 Admitting Malignant neoplasm SAMARITAN, SAMUEL Active [facility] [place] [facility] diagnosis of urinary organ, [facility] unspecified / [facility] C68.9(ICD-10) [facility] 07/07/2018 Admitting Other specified SAMARITAN, SAMUEL Active [facility] diagnosis diabetes mellitus [facility] with hyperglycemia / [facility] E13.65(ICD-10) [facility] 07/07/2018 Admitting prison (current) SAMUEL CANSECO Active [facility] [place] [facility] diagnosis use of insulin / [facility] Z79.4(ICD-10) [facility] 07/07/2018 Admitting Gross hematuria / SAMUEL CANSECO Active [facility] diagnosis R31.0(ICD-10) [facility] Repository 06/27/2018 Admitting Bacteremia / SAMARITAN, SAMUEL Active [facility] diagnosis R78.81(ICD-10) [facility] Repository 06/27/2018 Admitting Unspecified B-cell SAMARITAN, SAMUEL Active [facility] [place] [facility] diagnosis lymphoma, [facility] unspecified site / [facility] C85.10(ICD-10) [facility] 06/27/2018 Admitting Disorder of bone, SAMARITAN, SAMUEL Active [facility] diagnosis unspecified / [facility] M89.9(ICD-10) [facility] 06/27/2018 Admitting Other cirrhosis of SAMUEL CANSECO Active [facility] diagnosis liver / [facility] K74.69(ICD-10) [facility] 06/27/2018 Admitting 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, 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 [facility] sites / Center C83.38(ICD-10) Repository 06/22/2018 Admitting Personal history of RAIMUNDOCATHY CHOWDARY L Active [facility] [place] [facility] diagnosis malignant neoplasm University of bladder / [facility] Z85.51(ICD-10) [facility] 06/22/2018 Admitting Secondary malignant RAIMUNDO, 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 / University C79.51(ICD-10) [facility] 06/05/2018 Admitting Liver disease, MAVERICK LUNA Active [facility] diagnosis unspecified / University K76.9(ICD-10) [facility] 04/16/2018 Admitting Malignant neoplasm MAGO DENT Active [facility] diagnosis of overlapping sites N University of bladder / [facility] C67.8(ICD-10) [facility] Rep[facility] 03/10/2018 Admitting Cirrhosis / MAVERICK LUNA Active [facility] diagnosis [id number]() [facility] Repository 02/24/2018 Admitting Fall / [id number]() SRINI RODRÍGUEZ Active [facility] diagnosis [facility] Repository 02/24/2018 Admitting Headache / 52() SRINI RODRÍGUEZ Active [facility] diagnosis [facility] Repository 02/11/2018 Admitting Unspecified mycosis BONNIE ARAUZ Active [facility] diagnosis / B49(ICD-10) [facility] Repository 02/11/2018 Admitting Osteomyelitis, BONNIE ARAUZ Active [facility] [place] [facility] diagnosis unspecified / [facility] M86.9(ICD-10) [facility] 02/10/2018 Admitting Post-Discharge MARVIN JUAREZ Active [facility] diagnosis Follow Up / 403() [facility] Repository 02/01/2018 Unknown M86.172 - Other ALDEN ARGUELLES [facility] acute osteomyelitis, [facility] ankle and foot [facility] / M86.172(ICD-10) Repository 01/28/2018 Admitting 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[facility] 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 / Center E11.42(ICD-10) Repository 02/16/2016 Admitting Other specified [facility] diagnosis postprocedural [facility] / [facility] Z98.890(ICD-10) [facility] Rep[facility] 01/21/2018 [facility] Repository 01/21/2018 Admitting Paperwork / 111() NIKOLAY, [facility] diagnosis [facility] Repository 01/21/2018 Admitting Pain / 121() NIKOLAY, [facility] diagnosis [facility] Repository 01/13/2018 Admitting Primary insomnia / NIKO, SINDY J Active [facility] diagnosis F51.01(ICD-10) [facility] Repository 01/10/2018 Admitting Abscess of bursa, DEANDRA DANIELS Active [facility] diagnosis [facility] ankle and foot [place] / M71.072(ICD-10) [facility] 01/04/2018 Admitting Other acute DEANDRA DANIELS Active [facility] diagnosis osteomyelitis, [facility] ankle [facility] foot / [facility] M86.172(ICD-10) [facility] Repository 01/04/2018 Admitting Open bite, DANIELS, DEANDRA J Active [facility] diagnosis unspecified lower University leg, initial [facility] encounter / Center S81.859A(ICD-10) Repository 01/04/2018 Admitting Local infection of DEANDRA DANIELS Active [facility] diagnosis the skin and [place] subcutaneous tissue, [facility] unspecified / Center L08.9(ICD-10) Repository 08/26/2015 Admitting 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 / University D50.8(ICD-10) [facility] 11/06/2017 Admitting Adverse effect of LUNAMAVERICK A Active [facility] diagnosis other drugs, [place] medicaments and [facility] biological [place] substances, Repository subsequent encounter / T50.995D(ICD-10) 09/16/2017 Admitting Encounter for EFRAIN, Active [facility] diagnosis preprocedural [facility] cardiovascular [facility] examination / Center Z01.810(ICD-10) Repository 10/16/2017 Admitting Cystoscopy / 600() PACO KIMBLE Active [facility] diagnosis [facility] Repository 10/16/2017 Admitting Malignant neoplasm JESSY BLACKMON A Active [facility] diagnosis of bladder, [facility] unspecified (HCC) / [facility] C67.9(ICD-10) [facility] Repository 09/15/2017 Admitting Liver Recipient JUAN ALBERTO ErinJadon Active [facility] diagnosis Evaluation / [facility] [id number]() [facility] 09/02/2017 Admitting Unspecified JESSY BLACKMON A Active [facility] diagnosis cirrhosis of liver [facility] (HCC) / [facility] K74.60(ICD-10) [facility] Rep[facility] PROCEDURES PROCEDURES No Procedure Records FoundRESULTS RESULTS *POC GLUCOSE BATTERY Collected: 08/21/2018 Status: F Source: [facility] [facility] 10:42 PM [facility] REPOSITORY TYPE CODE TESTS RESULT OUT OF REFERENCE UNITS RANGE LAB GLUP 70-99 mg/dL High Glucose (poc 154 device) Result Comment: No BRAVE per RN: PATIENT TYPE LAB PCSTYP *POC Capillary SAMPLE TYPE Blood CT HEAD WITHOUT Observed: 08/21/2018 Status: F Source: [facility] [facility] CONTRAST 12:57 PM [facility] REPOSITORY EXAM: CT HEAD WITHOUT CONTRAST, 08/21/2018 12:22 AM COMPARISON: 08/08/2018 CLINICAL INDICATIONS: 63 years Female Encephalopathy; RELEVANT CLINICAL HISTORY: TECHNIQUE: A series of transaxial computerized tomographic images are obtained from base of skull to vertex without intravenous contrast. Axial whole-head and thin section posterior fossa slices are provided. Reformats: Sagittal and coronal. FINDINGS: Age related central and cortical volume loss is identified. No acute parenchymal hemorrhage, mass effect, midline shift or extra- axial fluid collections are noted. Mild nonspecific low-attenuation is identified in the white matter especially involving the frontal periventricular white matter likely related to microvascular ischemic changes. There are vascular calcifications in the internal carotid arteries. The brainstem and cerebellum are unremarkable. There is evidence of a prior bilateral cataract surgery. Retained secretions are visualized in the nasopharyngeal soft tissues and posterior nasal cavity. There is mild mucosal thickening in the ethmoids. Mild nasal septal deviation to the left is noted. There is no significant mastoid opacification. IMPRESSION: 1. No acute intracranial abnormality identified. 2. No significant interval change compared to the prior exam. *POC GLUCOSE BATTERY Collected: 08/21/2018 Status: F Source: [facility] 12:05 PM [facility] REPOSITORY TYPE CODE TESTS RESULT OUT OF REFERENCE UNITS RANGE LAB GLUP 70-99 mg/dL High Glucose (poc 153 device) Result Comment: No BRAVE per RN: PATIENT TYPE LAB PCSTYP *POC Capillary SAMPLE TYPE Blood XR CHEST PORTABLE Observed: 08/21/2018 Status: F Source: [facility] 11:43 AM [facility] REPOSITORY EXAM: XR CHEST PORTABLE, 08/21/2018 11:26 AM COMPARISON: August 20, 2018 CLINICAL INDICATIONS: ETT placement RELEVANT CLINICAL HISTORY: FINDINGS: (Adequate technique) ET tube is been mildly retracted and is in the mid trachea. Other support devices are in unchanged position. New trace left effusion. Redemonstration of infrahilar opacities. Stable cardiomediastinal silhouette. No interval bone findings. IMPRESSION: ET tube is mildly retracted and terminates in the midtrachea. Observed: 08/21/2018 Status: F Source: [facility] RESPIRATORY CULTURE 11:02 AM [facility] REPOSITORY SOURCE: Sputum-Aspirated: Tracheal Aspirate MICROSCOPIC: Neutrophils, Heavy NO ORGANISMS SEEN SPECIMEN IS OF OPTIMAL QUALITY QUANTITATION: Total Microbial Growth, Light RESULT: ---Common Oropharyngeal Microbes--- REPORT STATUS: 08/23/2018 FINAL Performed By: #### RES #### [address] [address] Blood Cultures processed at: [facility] TROPONIN I Collected: 08/21/2018 Status: F Source: [facility] 8:06 AM [facility] REPOSITORY TYPE CODE TESTS RESULT OUT OF REFERENCE UNITS RANGE LAB TROP <0.11 ng/mL Troponin I 0.01 Performed By: #### TROP #### [facility] [address] [place] [address] [facility] [address] [place], [place] [address] XR WRIST LEFT 3 Observed: 08/21/2018 Status: F Source: [facility] VIEWS 7:59 AM [facility] REPOSITORY EXAM: XR WRIST LEFT 3 VIEWS ,, 08/20/2018 19:41 PM COMPARISON: 06/27/2018 CLINICAL INDICATIONS: S/p I&D in June with slow healing wounds RELEVANT CLINICAL HISTORY: FINDINGS: 3 images obtained. Soft Tissue: Dorsal soft tissue swelling at the wrist extending into the distal forearm. Foci of soft tissue air likely related to the provided history of recent I&D. Overlying dressing material is present. No radiopaque foreign bodies are identified. Bone: No definite periostitis or osteolysis is identified. Carpal Joints: No evidence of dislocation. Moderate osteoarthritic changes at first carpometacarpal joint. Ulnar length: There is ulnar neutral variance. DRUJ: The distal radioulnar joint is anatomically aligned. IMPRESSION: Soft tissue swelling and soft tissue air dorsally likely related to recent surgery. No radiographic findings to suggest osteomyelitis. *POC GLUCOSE BATTERY Collected: 08/21/2018 Status: F Source: [facility] 7:59 AM [facility] REPOSITORY TYPE CODE TESTS RESULT OUT OF REFERENCE UNITS RANGE LAB GLUP 70-99 mg/dL High Glucose (poc 118 device) Result Comment: Meets BRAVE per RN: PATIENT TYPE LAB PCSTYP *POC SAMPLE TYPE Venous XR CHEST PORTABLE Observed: 08/21/2018 Status: F Source: [facility] 6:13 AM [facility] REPOSITORY EXAM: XR CHEST PORTABLE, 08/20/2018 23:24 PM COMPARISON: August 16, 2018 CLINICAL INDICATIONS: Intubation RELEVANT CLINICAL HISTORY: FINDINGS: (Adequate technique) Life Support Devices: ET tube is 1.1 cm above the senia. The esophagogastric tube terminates beneath the diaphragm, outside the wssig-th-pcam. Right port and right IJ CVC remain in place. Chest Wall: Normal Jodi: Normal Mediastinum: Normal Pleural Spaces: No definite pleural effusion. No definite pneumothorax. Lungs: The lungs are under aerated with new patchy opacities in the infrahilar regions. Cardiac Silhouette: Normal, without overall or specific chamber enlargement, or abnormal calcification Thoracic Aorta: Normal Pulmonary Vessels: Normal, without PVH IMPRESSION: Intubated. New patchy opacities in the bilateral infrahilar regions, atelectasis versus airspace disease. ABDOMEN 1 VIEW Observed: 08/21/2018 Status: F Source: [facility] 6:13 AM [facility] REPOSITORY EXAM: XR ABDOMEN 1 VIEW, 08/20/2018 23:24 PM COMPARISON: August 20, 2018 CLINICAL INDICATIONS: OG FINDINGS: NG tube in place with tip and side-port in the stomach. No gross free air. Relative paucity of bowel gas within the abdomen, no grossly dilated loops are apparent. There is no gross organomegaly or mass effect. Cholecystectomy clips are noted in the right upper quadrant. Osseous structures are grossly intact.. IMPRESSION: NG tube with tip and side-port in the stomach. *POC GLUCOSE BATTERY Collected: 08/21/2018 Status: F Source: [facility] 5:45 AM [facility] REPOSITORY TYPE CODE TESTS RESULT OUT OF REFERENCE UNITS RANGE LAB GLUP 70-99 mg/dL High Glucose (poc 115 device) Result Comment: No BRAVE per RN: PATIENT TYPE LAB PCSTYP *POC Capillary SAMPLE TYPE Blood Observed: 08/21/2018 Status: F Source: [facility] TYPE AND CROSS 12:55 AM [facility] REPOSITORY ABO/RH(D): O POSITIVE ANTIBODY SCREEN: NEGATIVE Performed By: #### XM #### [facility] [place] [facility] [address] [place] [address] CBC,PLATELET,DIFFERENTIAL - CCL Collected: Status: F Source: [facility] 08/21/2018 12:47 [facility] REPOSITORY TYPE CODE TESTS RESULT OUT OF REFERENCE UNITS RANGE LAB WBC 3.99-11.19 K/uL WBC Count 8.45 LAB RBC 3.91-5.04 M/uL RBC Count 2.41 Low LAB HGB 11.4-15.2 g/dL Hemoglobin 7.2 Low LAB HCT 34.9-44.3 % Hematocrit 21.7 Low LAB MCV 79.6-97.7 fL Mean Cell 90.0 Volume LAB MCH 25.9-33.9 pg Mean Cell 29.9 Hgb LAB MCHC 31.4-35.9 g/dL Mean Cell 33.2 Hgb Conc LAB RDW 10.8-14.9 % RBC 23.6 High Distribution LAB PLT 150-393 K/uL Platelet 44 Low Count LAB MPV 8.5-12.2 fL Mean 10.5 Platelet Volume LAB NRBC 0.0-0.2 /100 WBC NUCLEATED 0.2 RBC LAB DTYPE Electronic DIFFERENTIAL TYPE Differential LAB IGRE % IMMATURE 2.4 GRANS % LAB SEGS % NEUTROPHIL 68.8 SEGMENTED LAB LYM % LYMPHOCYTE 8.5 % LAB MON % MONOCYTE % 9.2 LAB EOS % *EOSINOPHIL 10.4 % LAB BASO % BASOPHIL % 0.7 LAB IGABS 0.00-0.08 K/uL IMMATURE 0.20 High GRANS ABSOLUTE LAB SBANS 1.64-7.28 K/uL SEGS + 5.81 Bands,Absolute LAB ALYM 1.16-3.51 K/uL Abs Lymph 0.72 Low LAB AMONO 0.22-0.87 K/uL Abs Laurel 0.78 LAB AEOS 0.00-0.42 K/uL Abs Eos 0.88 High LAB ABASO 0.00-0.15 K/uL Abs Baso 0.06 Performed By: #### CBCDFC, PTPTT, TROP, CA, CHM7, CKB, HFP, IPB, MGO, TRIG #### [facility] [address] [place] [address] [place] [address] PT*PTT Collected: 08/21/2018 Status: F Source: [facility] 12:47 AM [facility] REPOSITORY TYPE CODE TESTS RESULT OUT OF RANGE REFERENCE UNITS LAB PT 11.9-14.2 sec High PT 18.0 LAB INR 0.9-1.1 High INR 1.5 LAB PTT 24.0-34.3 sec High PTT 39.6 Performed By: #### CBCDFC, PTPTT, TROP, CA, CHM7, CKB, HFP, IPB, MGO, TRIG #### [facility] [address] [place] [id number] [facility] [address] [place] [address] TROPONIN I Collected: 08/21/2018 Status: F Source: [facility] 12:47 AM [facility] REPOSITORY TYPE CODE TESTS RESULT OUT OF REFERENCE UNITS RANGE LAB TROP <0.11 ng/mL Troponin I 0.01 Performed By: #### CBCDFC, PTPTT, TROP, CA, CHM7, CKB, HFP, IPB, MGO, TRIG #### [facility] [address] [place] [id number] [facility] [address] [place] [id number] CALCIUM Collected: 08/21/2018 Status: F Source: [facility] 12:47 AM [facility] REPOSITORY TYPE CODE TESTS RESULT OUT OF REFERENCE UNITS RANGE LAB CA 8.6-10.5 mg/dL Low Calcium 7.5 Performed By: #### CBCDFC, PTPTT, TROP, CA, CHM7, CKB, HFP, IPB, MGO, TRIG #### [facility] [address] [place] [address] [address] [place] [address] CHEM 7 Collected: 08/21/2018 Status: F Source: [facility] 12:47 AM [facility] REPOSITORY TYPE CODE TESTS RESULT OUT OF REFERENCE UNITS RANGE LAB BUN 7-22 mg/dL BUN 19 LAB NA 133-143 mmol/L Sodium 139 LAB K 3.5-5.0 mmol/L Potassium 3.8 LAB CL 98-108 mmol/L Chloride 104 LAB CO2 22-30 mmol/L Carbon Dioxide 26 LAB GLUC 70-99 mg/dL Glucose High 136 LAB CREA 0.50-1.20 mg/dL High Creatinine 3.55 LAB GAP 7-17 mmol/L Anion Gap 13 LAB BC BUN/CREA Ratio 5 LAB OSMC 278-305 mOsm/kg Osmolality 295 (Calc) LAB GFR >60 mL/min/1.73 Low sqM Est GFR,non 13 Estonian LAB GFRA >60 mL/min/1.73 Low sqM Est GFR, 16 Performed By: #### CBCDFC, PTPTT, TROP, CA, CHM7, CKB, HFP, IPB, MGO, TRIG #### [facility] [address] [place] [id number] [facility] [address] [place] [id number] CK Collected: 08/21/2018 Status: F Source: [facility] 12:47 AM [facility] REPOSITORY TYPE CODE TESTS RESULT OUT OF REFERENCE UNITS RANGE LAB CK 30-184 U/L Low Creatine 19 Kinase Performed By: #### CBCDFC, PTPTT, TROP, CA, CHM7, CKB, HFP, IPB, MGO, TRIG #### [facility] [address] [place] [address] [place] [address] HEPATIC FUNCTION Collected: 08/21/2018 Status: F Source: [facility] 12:47 AM [facility] REPOSITORY TYPE CODE TESTS RESULT OUT OF REFERENCE UNITS RANGE LAB ALB 3.5-5.0 g/dL Low Albumin 2.0 LAB BILD <0.3 mg/dL Bilirubin High Direct 0.9 LAB BILT <1.5 mg/dL Bilirubin High Total 2.0 LAB ALP 32-126 U/L Alkaline High Phosphatase 225 LAB ALT 9-48 U/L ALT 18 LAB AST 14-40 U/L AST High 58 LAB TP 6.4-8.3 g/dL Low Total Protein 4.8 Performed By: #### CBCDFC, PTPTT, TROP, CA, CHM7, CKB, HFP, IPB, MGO, TRIG #### [facility] [address] [place] [id number] [facility] [address] [place] [address] INORGANIC PHOSPHATE Collected: 08/21/2018 Status: F Source: [facility] 12:47 AM [facility] REPOSITORY TYPE CODE TESTS RESULT OUT OF REFERENCE UNITS RANGE LAB IP 2.2-4.6 mg/dL Inorg Phosphate 4.2 Performed By: #### CBCDFC, PTPTT, TROP, CA, CHM7, CKB, HFP, IPB, MGO, TRIG #### [facility] [address] [place], [place] [phone] [facility] [address] [place] [address] MAGNESIUM Collected: 08/21/2018 Status: F Source: [facility] 12:47 AM [facility] REPOSITORY TYPE CODE TESTS RESULT OUT OF REFERENCE UNITS RANGE LAB MG 1.6-2.6 mg/dL Magnesium 2.1 Performed By: #### CBCDFC, PTPTT, TROP, CA, CHM7, CKB, HFP, IPB, MGO, TRIG #### [facility] [address] [place] [address] [facility] [address] [place] [id number] TRIGLYCERIDES Collected: 08/21/2018 Status: F Source: [facility] 12:47 AM [facility] REPOSITORY TYPE CODE TESTS RESULT OUT OF REFERENCE UNITS RANGE LAB TRIG <150 mg/dL TRIGLYCERIDES 147 Performed By: #### CBCDFC, PTPTT, TROP, CA, CHM7, CKB, HFP, IPB, MGO, TRIG #### [facility] [address] [place] [address] [facility] [address] [place] [id number] Observed: 08/21/2018 Status: F Source: [facility] BLOOD:ROUTINE II 12:31 AM [facility] REPOSITORY SOURCE: BLOOD, PERIPHERAL: Site not specified RESULT: NO GROWTH DAY 5 OF 5 REPORT STATUS: 08/26/2018 FINAL Performed By: Frida ABRAHAM2 #### [address] [address] Blood Cultures processed at: [facility] *POC GLUCOSE BATTERY Collected: 08/21/2018 Status: F Source: [facility] 12:28 AM [facility] REPOSITORY TYPE CODE TESTS RESULT OUT OF REFERENCE UNITS RANGE LAB GLUP 70-99 mg/dL High Glucose (poc 142 device) Result Comment: No BRAVE per RN: PATIENT TYPE LAB PCSTYP *POC Capillary SAMPLE TYPE Blood Observed: 08/20/2018 Status: F Source: [facility] BLOOD:ROUTINE I 10:53 PM [facility] REPOSITORY SOURCE: BLOOD, PERIPHERAL: Site not specified RESULT: NO GROWTH DAY 5 OF 5 REPORT STATUS: 08/25/2018 FINAL Performed By: #Sintia ABRAHAM #### [address] [address] Blood Cultures processed at: [facility] Observed: 08/20/2018 Status: F Source: [facility] BLOOD:LINE ASSESSMENT 10:[address] REPOSITORY SOURCE: LINE, PERMACATH: PIGTAIL RESULT: NO GROWTH DAY 5 OF 5 REPORT STATUS: 08/25/2018 FINAL Performed By: #### LINE2 #### [place] [address] Blood Cultures processed at: [facility] *POC GLUCOSE BATTERY Collected: 08/20/2018 Status: F Source: [facility] 9:56 PM [facility] REPOSITORY TYPE CODE TESTS RESULT OUT OF REFERENCE UNITS RANGE LAB GLUP 70-99 mg/dL High Glucose (poc 150 device) Result Comment: Meets BRAVE per RN: PATIENT TYPE LAB PCSTYP *POC Arterial SAMPLE TYPE HEMOGRAM (CBC AND Collected: 08/20/2018 Status: F Source: [facility] PLATELET) 9:50 PM [facility] REPOSITORY TYPE CODE TESTS RESULT OUT OF REFERENCE UNITS RANGE LAB WBC 3.99-11.19 K/uL WBC Count 9.52 LAB RBC 3.91-5.04 M/uL Low RBC Count 2.53 LAB HGB 11.4-15.2 g/dL Low Hemoglobin 7.4 LAB HCT 34.9-44.3 % Low Hematocrit 22.2 LAB MCV 79.6-97.7 fL Mean Cell Volume 87.7 LAB MCH 25.9-33.9 pg Mean Cell Hgb 29.2 LAB MCHC 31.4-35.9 g/dL Mean Cell Hgb Conc 33.3 LAB RDW 10.8-14.9 % RBC High Distribution 23.7 LAB PLT 150-393 K/uL Low Platelet Count 42 LAB MPV 8.5-12.2 fL Mean Platelet Volume 10.8 LAB NRBC 0.0-0.2 /100 WBC NUCLEATED RBC 0.0 Performed By: #### HEMOGC, CHM7, HFP, PTPTT, FIB, TROP #### [facility] [address] [place] [id number] [place] [address] [place] [id number] CHEM 7 Collected: 08/20/2018 Status: F Source: [facility] 9:50 PM [facility] REPOSITORY TYPE CODE TESTS RESULT OUT OF REFERENCE UNITS RANGE LAB BUN 7-22 mg/dL BUN 19 LAB NA 133-143 mmol/L Sodium 139 LAB K 3.5-5.0 mmol/L Potassium 3.9 LAB CL 98-108 mmol/L Chloride 103 LAB CO2 22-30 mmol/L Carbon Dioxide 26 LAB GLUC 70-99 mg/dL Glucose High 146 LAB CREA 0.50-1.20 mg/dL High Creatinine 3.44 LAB GAP 7-17 mmol/L Anion Gap 14 LAB BC BUN/CREA Ratio 6 LAB [facility] 278-305 mOsm/kg Osmolality 296 (Calc) LAB GFR >60 mL/min/1.73 Low sqM Est GFR,non 13 Estonian LAB GFRA >60 mL/min/1.73 Low sqM Est GFR, 16 Performed By: #### HEMOGC, CHM7, HFP, PTPTT, FIB, TROP #### [facility] [address] [place] [id number] [place] [address] [place] [address] HEPATIC FUNCTION Collected: 08/20/2018 Status: F Source: [facility] 9:50 PM [facility] REPOSITORY TYPE CODE TESTS RESULT OUT OF REFERENCE UNITS RANGE LAB ALB 3.5-5.0 g/dL Low Albumin 2.1 LAB BILD <0.3 mg/dL Bilirubin High Direct 0.9 LAB BILT <1.5 mg/dL Bilirubin High Total 2.2 LAB ALP 32-126 U/L Alkaline High Phosphatase 248 LAB ALT 9-48 U/L ALT 19 LAB AST 14-40 U/L AST High 61 LAB TP 6.4-8.3 g/dL Low Total Protein 5.0 Performed By: #### HEMOGC, CHM7, HFP, PTPTT, FIB, TROP #### [facility] [address] [place] [phone] [place] [address] [place] [address] PT*PTT Collected: 08/20/2018 Status: F Source: [facility] 9:50 PM [facility] REPOSITORY TYPE CODE TESTS RESULT OUT OF RANGE REFERENCE UNITS LAB PT 11.9-14.2 sec High PT 17.7 LAB INR 0.9-1.1 High INR 1.5 LAB PTT 24.0-34.3 sec High PTT 37.9 Performed By: #### HEMOGC, CHM7, HFP, PTPTT, FIB, TROP #### [facility] [address] [place] [address] [place] [address] FIBRINOGEN-CLOTTABLE Collected: Status: F Source: [facility] 08/20/2018 9:50 PM [facility] REPOSITORY TYPE CODE TESTS RESULT OUT OF RANGE REFERENCE UNITS LAB FIB 220-410 mg/dL 266 Fibrinogen-C lottable Performed By: #### HEMOGC, CHM7, HFP, PTPTT, FIB, TROP #### [facility] [address] [place] [address] [place] [address] TROPONIN I Collected: 08/20/2018 Status: F Source: [facility] 9:50 PM [facility] REPOSITORY TYPE CODE TESTS RESULT OUT OF REFERENCE UNITS RANGE LAB TROP <0.11 ng/mL Troponin I 0.01 Performed By: #### HEMOGC, CHM7, HFP, PTPTT, FIB, TROP #### [facility] [address] [place] [address] [place] [address] AMMONIA Collected: 08/20/2018 Status: F Source: [facility] 9:50 PM [facility] REPOSITORY TYPE CODE TESTS RESULT OUT OF REFERENCE UNITS RANGE LAB NH3 6-47 umol/L High Ammonia 49 Performed By: #### NH3B #### [facility] [address] [place], [place] [phone] [place] [address] [address] [place] [address] *POC GLUCOSE BATTERY Collected: 08/20/2018 Status: F Source: [facility] 8:59 PM [facility] REPOSITORY TYPE CODE TESTS RESULT OUT OF REFERENCE UNITS RANGE LAB GLUP 70-99 mg/dL High Glucose (poc 161 device) Result Comment: Notified RNread back No BRAVE per RN: PATIENT TYPE LAB PCSTYP *POC Capillary SAMPLE TYPE Blood XR ABDOMEN 1 VIEW Observed: 08/20/2018 Status: F Source: [facility] 7:03 PM [facility] REPOSITORY EXAM: XR ABDOMEN 1 VIEW, 08/20/2018 14:14 PM COMPARISON: August 11, 2018 CLINICAL INDICATIONS: Abdominal tenderness, distention FINDINGS: Tubes: None. No gross free air. There is a non obstructive bowel gas pattern; moderate stool burden. No organomegaly or mass effect. No significant calcific densities or definite stones. Visualized osseous structures are unremarkable for the patient's age. IMPRESSION: Moderate stool burden *POC GLUCOSE BATTERY Collected: 08/20/2018 Status: F Source: [facility] 3:32 PM [facility] REPOSITORY TYPE CODE TESTS RESULT OUT OF REFERENCE UNITS RANGE LAB GLUP 70-99 mg/dL High Glucose (poc 117 device) Result Comment: No BRAVE per RN: PATIENT TYPE LAB PCSTYP *POC Capillary SAMPLE TYPE Blood *POC GLUCOSE BATTERY Collected: 08/20/2018 Status: F Source: [facility] 7:30 AM [facility] REPOSITORY TYPE CODE TESTS RESULT OUT OF REFERENCE UNITS RANGE LAB GLUP 70-99 mg/dL High Glucose (poc 133 device) Result Comment: No BRAVE per RN: PATIENT TYPE LAB PCSTYP *POC Capillary SAMPLE TYPE Blood CBC,PLATELET,DIFFERENTIAL - CCL Collected: Status: F Source: [facility] 08/20/2018 4:02 AM [facility] REPOSITORY TYPE CODE TESTS RESULT OUT OF REFERENCE UNITS RANGE LAB WBC 3.99-11.19 K/uL WBC Count 8.77 LAB RBC 3.91-5.04 M/uL RBC Count 2.58 Low LAB HGB 11.4-15.2 g/dL Hemoglobin 7.6 Low LAB HCT 34.9-44.3 % Hematocrit 22.8 Low LAB MCV 79.6-97.7 fL Mean Cell 88.4 Volume LAB MCH 25.9-33.9 pg Mean Cell 29.5 Hgb LAB MCHC 31.4-35.9 g/dL Mean Cell 33.3 Hgb Conc LAB RDW 10.8-14.9 % RBC 23.3 High Distribution LAB PLT 150-393 K/uL Platelet 52 Low Count LAB MPV 8.5-12.2 fL Mean 10.2 Platelet Volume LAB NRBC 0.0-0.2 /100 WBC NUCLEATED 0.2 RBC LAB DTYPE Electronic DIFFERENTIAL TYPE Differential LAB IGRE % IMMATURE 2.6 GRANS % LAB SEGS % NEUTROPHIL 61.8 SEGMENTED LAB LYM % LYMPHOCYTE 7.2 % LAB MON % MONOCYTE % 12.1 LAB EOS % *EOSINOPHIL 15.4 % LAB BASO % BASOPHIL % 0.9 LAB IGABS 0.00-0.08 K/uL IMMATURE 0.23 High GRANS ABSOLUTE LAB SBANS 1.64-7.28 K/uL SEGS + 5.42 Bands,Absolute LAB ALYM 1.16-3.51 K/uL Abs Lymph 0.63 Low LAB AMONO 0.22-0.87 K/uL Abs Laurel 1.06 High LAB AEOS 0.00-0.42 K/uL Abs Eos 1.35 High LAB ABASO 0.00-0.15 K/uL Abs Baso 0.08 Performed By: #### CBCDFC, CA, CHM7, HFP, IPB, MGO, PTPTT #### [facility] [address] [place] [address] [address] [place] [address] CALCIUM Collected: 08/20/2018 Status: F Source: [facility] 4:02 AM [facility] REPOSITORY TYPE CODE TESTS RESULT OUT OF REFERENCE UNITS RANGE LAB CA 8.6-10.5 mg/dL Low Calcium 7.7 Performed By: #### CBCDFC, CA, CHM7, HFP, IPB, MGO, PTPTT #### [facility] [address] [place] [address] [place] [id number] CHEM 7 Collected: 08/20/2018 Status: F Source: [facility] 4:02 AM [facility] REPOSITORY TYPE CODE TESTS RESULT OUT OF REFERENCE UNITS RANGE LAB BUN 7-22 mg/dL BUN High 29 LAB NA 133-143 mmol/L Sodium 134 LAB K 3.5-5.0 mmol/L Potassium 3.8 LAB CL 98-108 mmol/L Chloride 100 LAB CO2 22-30 mmol/L Carbon Dioxide 25 LAB GLUC 70-99 mg/dL Glucose High 133 LAB CREA 0.50-1.20 mg/dL High Creatinine 4.65 LAB GAP 7-17 mmol/L Anion Gap 13 LAB BC BUN/CREA Ratio 6 LAB [facility] 278-305 mOsm/kg Osmolality 289 (Calc) LAB GFR >60 mL/min/1.73 Low sqM Est GFR,non 9 Estonian LAB GFRA >60 mL/min/1.73 Low sqM Est GFR, 11 Performed By: #### CBCDFC, CA, CHM7, HFP, IPB, MGO, PTPTT #### [facility] [phone] [place] [address] [place] [address] HEPATIC FUNCTION Collected: 08/20/2018 Status: F Source: [facility] 4:02 [facility] REPOSITORY TYPE CODE TESTS RESULT OUT OF REFERENCE UNITS RANGE LAB ALB 3.5-5.0 g/dL Low Albumin 2.2 LAB BILD <0.3 mg/dL Bilirubin High Direct 0.8 LAB BILT <1.5 mg/dL Bilirubin High Total 2.0 LAB ALP 32-126 U/L Alkaline High Phosphatase 225 LAB ALT 9-48 U/L ALT 17 LAB AST 14-40 U/L AST High 55 LAB TP 6.4-8.3 g/dL Low Total Protein 5.1 Performed By: #### CBCDFC, CA, CHM7, HFP, IPB, MGO, PTPTT #### [facility] [address] [address] [facility] [address] [place] [address] INORGANIC PHOSPHATE Collected: 08/20/2018 Status: F Source: [facility] 4:02 AM [facility] REPOSITORY TYPE CODE TESTS RESULT OUT OF REFERENCE UNITS RANGE LAB IP 2.2-4.6 mg/dL Inorg Phosphate 4.3 Performed By: #### CBCDFC, CA, CHM7, HFP, IPB, MGO, PTPTT #### [facility] [address] [place] [phone] [place] [address] [place] [address] MAGNESIUM Collected: 08/20/2018 Status: F Source: [facility] 4:02 AM [facility] REPOSITORY TYPE CODE TESTS RESULT OUT OF REFERENCE UNITS RANGE LAB MG 1.6-2.6 mg/dL Magnesium 2.3 Performed By: #### CBCDFC, CA, CHM7, HFP, IPB, MGO, PTPTT #### [facility] [address] [place] [address] [address] [place] [address] PT*PTT Collected: 08/20/2018 Status: F Source: [facility] 4:02 AM [facility] REPOSITORY TYPE CODE TESTS RESULT OUT OF RANGE REFERENCE UNITS LAB PT 11.9-14.2 sec High PT 16.7 LAB INR 0.9-1.1 High INR 1.3 LAB PTT 24.0-34.3 sec High PTT 36.2 Performed By: #### CBCDFC, CA, CHM7, HFP, IPB, MGO, PTPTT #### [facility] [address] [place] [address] AMMONIA Collected: 08/20/2018 Status: F Source: [facility] 4:02 AM [facility] REPOSITORY TYPE CODE TESTS RESULT OUT OF REFERENCE UNITS RANGE LAB NH3 6-47 umol/L High Ammonia 58 Performed By: #### NH3B #### [facility] [address] [place] [address] [address] [place] [address] *POC GLUCOSE BATTERY Collected: 08/19/2018 Status: F Source: [facility] 9:25 PM [facility] REPOSITORY TYPE CODE TESTS RESULT OUT OF REFERENCE UNITS RANGE LAB GLUP 70-99 mg/dL High Glucose (poc 198 device) Result Comment: Notified RNread back No BRAVE per RN: PATIENT TYPE LAB PCSTYP *POC Capillary SAMPLE TYPE Blood *POC GLUCOSE BATTERY Collected: 08/19/2018 Status: F Source: [facility] 5:26 PM [facility] REPOSITORY TYPE CODE TESTS RESULT OUT OF REFERENCE UNITS RANGE LAB GLUP 70-99 mg/dL High Glucose (poc 174 device) Result Comment: No BRAVE per RN: PATIENT TYPE LAB PCSTYP *POC Capillary SAMPLE TYPE Blood *POC GLUCOSE BATTERY Collected: 08/19/2018 Status: F Source: [facility] 11:29 AM [facility] REPOSITORY TYPE CODE TESTS RESULT OUT OF REFERENCE UNITS RANGE LAB GLUP 70-99 mg/dL High Glucose (poc 185 device) Result Comment: No BRAVE per RN: PATIENT TYPE LAB PCSTYP *POC Capillary SAMPLE TYPE Blood *POC GLUCOSE BATTERY Collected: 08/19/2018 Status: F Source: [facility] 7:39 AM [facility] REPOSITORY TYPE CODE TESTS RESULT OUT OF REFERENCE UNITS RANGE LAB GLUP 70-99 mg/dL High Glucose (poc 129 device) Result Comment: No BRAVE per RN: PATIENT TYPE LAB PCSTYP *POC Capillary SAMPLE TYPE Blood CBC,PLATELET,DIFFERENTIAL - CCL Collected: Status: F Source: [facility] 08/19/2018 4:14 AM [facility] REPOSITORY TYPE CODE TESTS RESULT OUT OF REFERENCE UNITS RANGE LAB WBC 3.99-11.19 K/uL WBC Count 8.01 LAB RBC 3.91-5.04 M/uL RBC Count 2.50 Low LAB HGB 11.4-15.2 g/dL Hemoglobin 7.5 Low LAB HCT 34.9-44.3 % Hematocrit 22.6 Low LAB MCV 79.6-97.7 fL Mean Cell 90.4 Volume LAB MCH 25.9-33.9 pg Mean Cell 30.0 Hgb LAB MCHC 31.4-35.9 g/dL Mean Cell 33.2 Hgb Conc LAB RDW 10.8-14.9 % RBC 23.8 High Distribution LAB PLT 150-393 K/uL Platelet 57 Low Count LAB MPV 8.5-12.2 fL Mean 10.0 Platelet Volume LAB NRBC 0.0-0.2 /100 WBC NUCLEATED 0.0 RBC LAB DTYPE Electronic DIFFERENTIAL TYPE Differential LAB IGRE % IMMATURE 3.0 GRANS % LAB SEGS % NEUTROPHIL 59.6 SEGMENTED LAB LYM % LYMPHOCYTE 7.2 % LAB MON % MONOCYTE % 15.9 LAB EOS % *EOSINOPHIL 13.7 % LAB BASO % BASOPHIL % 0.6 LAB IGABS 0.00-0.08 K/uL IMMATURE 0.24 High GRANS ABSOLUTE LAB SBANS 1.64-7.28 K/uL SEGS + 4.77 Bands,Absolute LAB ALYM 1.16-3.51 K/uL Abs Lymph 0.58 Low LAB AMONO 0.22-0.87 K/uL Abs Laurel 1.27 High LAB AEOS 0.00-0.42 K/uL Abs Eos 1.10 High LAB ABASO 0.00-0.15 K/uL Abs Baso 0.05 Performed By: #### CBCDFC, PTPTT, CA, CHM7, HFP, IPB, MGO #### [facility] [address] [place] [address] [place] [address] PT*PTT Collected: 08/19/2018 Status: F Source: [facility] 4:14 AM [facility] REPOSITORY TYPE CODE TESTS RESULT OUT OF RANGE REFERENCE UNITS LAB PT 11.9-14.2 sec High PT 17.4 LAB INR 0.9-1.1 High INR 1.4 LAB PTT 24.0-34.3 sec High PTT 42.6 Performed By: #### CBCDFC, PTPTT, CA, CHM7, HFP, IPB, MGO #### [facility] [address] [place] [address] [place] [address] CALCIUM Collected: 08/19/2018 Status: F Source: [facility] 4:14 AM [facility] REPOSITORY TYPE CODE TESTS RESULT OUT OF REFERENCE UNITS RANGE LAB CA 8.6-10.5 mg/dL Low Calcium 7.4 Performed By: #### CBCDFC, PTPTT, CA, CHM7, HFP, IPB, MGO #### [facility] [address] [place] [address] [place] [address] CHEM 7 Collected: 08/19/2018 Status: F Source: [facility] 4:14 AM [facility] REPOSITORY TYPE CODE TESTS RESULT OUT OF REFERENCE UNITS RANGE LAB BUN 7-22 mg/dL BUN High 25 LAB NA 133-143 mmol/L Sodium 136 LAB K 3.5-5.0 mmol/L Potassium 3.6 LAB CL 98-108 mmol/L Chloride 101 LAB CO2 22-30 mmol/L Carbon Dioxide 25 LAB GLUC 70-99 mg/dL Glucose High 149 LAB CREA 0.50-1.20 mg/dL High Creatinine 3.92 LAB GAP 7-17 mmol/L Anion Gap 14 LAB BC BUN/CREA Ratio 6 LAB [facility] 278-305 mOsm/kg Osmolality 292 (Calc) LAB GFR >60 mL/min/1.73 Low sqM Est GFR,non 12 Estonian LAB GFRA >60 mL/min/1.73 Low sqM Est GFR, 14 Performed By: #### CBCDFC, PTPTT, CA, CHM7, HFP, IPB, MGO #### [facility] [place] [address] HEPATIC FUNCTION Collected: 08/19/2018 Status: F Source: [facility] 4:14 [facility] REPOSITORY TYPE CODE TESTS RESULT OUT OF REFERENCE UNITS RANGE LAB ALB 3.5-5.0 g/dL Low Albumin 1.9 LAB BILD <0.3 mg/dL Bilirubin High Direct 0.7 LAB BILT <1.5 mg/dL Bilirubin High Total 1.6 LAB ALP 32-126 U/L Alkaline High Phosphatase 212 LAB ALT 9-48 U/L ALT 14 LAB AST 14-40 U/L AST 40 LAB TP 6.4-8.3 g/dL Low Total Protein 4.7 Performed By: #### CBCDFC, PTPTT, CA, CHM7, HFP, IPB, MGO #### [facility] [place] [address] INORGANIC PHOSPHATE Collected: 08/19/2018 Status: F Source: [facility] 4:14 AM [facility] REPOSITORY TYPE CODE TESTS RESULT OUT OF REFERENCE UNITS RANGE LAB IP 2.2-4.6 mg/dL Inorg Phosphate 3.8 Performed By: #### CBCDFC, PTPTT, CA, CHM7, HFP, IPB, MGO #### [facility] [address] [place] [address] [facility] [address] [place], [place] [address] MAGNESIUM Collected: 08/19/2018 Status: F Source: [facility] 4:14 AM [facility] REPOSITORY TYPE CODE TESTS RESULT OUT OF REFERENCE UNITS RANGE LAB MG 1.6-2.6 mg/dL Magnesium 2.2 Performed By: #### CBCDFC, PTPTT, CA, CHM7, HFP, IPB, MGO #### [facility] [address] [place] [address] [facility] [address] [place], [place] [address] *POC GLUCOSE BATTERY Collected: 08/18/2018 Status: F Source: [facility] 8:56 PM [facility] REPOSITORY TYPE CODE TESTS RESULT OUT OF REFERENCE UNITS RANGE LAB GLUP 70-99 mg/dL High Glucose (poc 235 device) Result Comment: No BRAVE per RN: PATIENT TYPE LAB PCSTYP *POC Capillary SAMPLE TYPE Blood *POC GLUCOSE BATTERY Collected: 08/18/2018 Status: F Source: [facility] 5:59 PM [facility] REPOSITORY TYPE CODE TESTS RESULT OUT OF REFERENCE UNITS RANGE LAB GLUP 70-99 mg/dL High Glucose (poc 222 device) Result Comment: No BRAVE per RN: PATIENT TYPE LAB PCSTYP *POC Capillary SAMPLE TYPE Blood US ABDOMEN LIVER Observed: 08/18/2018 Status: F Source: [facility] DOPPLER 5:42 PM [facility] REPOSITORY EXAM: US ABDOMEN LIVER DOPPLER, 08/18/2018 15:51 PM CLINICAL INDICATIONS: Hx of RYAN cirrhosis, worsening LIZ, concern for hepatorenal syndrome. Worsening T bili COMPARISON: No prior studies available for comparison. TECHNIQUE: Multiple longitudinal and transverse real-time luna scale survey images of the liver were obtained. The portal veins, hepatic arteries, hepatic veins and inferior vena cava were evaluated using color flow Doppler and spectral waveform analysis. FINDINGS: Portal Vein: Main, left and right portal veins show normal spectral waveform and flow direction. Flow velocity is 46.5 cm/sec which is normal. Hepatic Arteries: Main, left and right hepatic arteries show normal spectral waveform. Hepatic Veins: Right, middle and left hepatic veins show normal spectral waveform and flow direction. Inferior Vena Cava: The inferior vena cava is unremarkable. Other: A trace amount of ascites is seen. The liver is heterogeneous. IMPRESSION: Normal doppler ultrasound of hepatic vessels. *POC GLUCOSE BATTERY Collected: 08/18/2018 Status: F Source: [facility] 12:49 PM [facility] REPOSITORY TYPE CODE TESTS RESULT OUT OF REFERENCE UNITS RANGE LAB GLUP 70-99 mg/dL High Glucose (poc 162 device) Result Comment: No BRAVE per RN: PATIENT TYPE LAB PCSTYP *POC Capillary SAMPLE TYPE Blood *POC GLUCOSE BATTERY Collected: 08/18/2018 Status: F Source: [facility] 7:30 AM [facility] REPOSITORY TYPE CODE TESTS RESULT OUT OF REFERENCE UNITS RANGE LAB GLUP 70-99 mg/dL High Glucose (poc 153 device) Result Comment: No BRAVE per RN: PATIENT TYPE LAB PCSTYP *POC Capillary SAMPLE TYPE Blood CBC,PLATELET,DIFFERENTIAL - CCL Collected: Status: F Source: [facility] 08/18/2018 5:15 AM [facility] REPOSITORY TYPE CODE TESTS RESULT OUT OF REFERENCE UNITS RANGE LAB WBC 3.99-11.19 K/uL WBC Count 8.77 LAB RBC 3.91-5.04 M/uL RBC Count 2.57 Low LAB HGB 11.4-15.2 g/dL Hemoglobin 7.5 Low LAB HCT 34.9-44.3 % Hematocrit 22.9 Low LAB MCV 79.6-97.7 fL Mean Cell 89.1 Volume LAB MCH 25.9-33.9 pg Mean Cell 29.2 Hgb LAB MCHC 31.4-35.9 g/dL Mean Cell 32.8 Hgb Conc LAB RDW 10.8-14.9 % RBC 23.9 High Distribution LAB PLT 150-393 K/uL Platelet 65 Low Count LAB MPV 8.5-12.2 fL Mean 10.6 Platelet Volume LAB NRBC 0.0-0.2 /100 WBC NUCLEATED 0.0 RBC LAB DTYPE Electronic DIFFERENTIAL TYPE Differential LAB IGRE % IMMATURE 2.2 GRANS % LAB SEGS % NEUTROPHIL 69.6 SEGMENTED LAB LYM % LYMPHOCYTE 6.4 % LAB MON % MONOCYTE % 13.0 LAB EOS % *EOSINOPHIL 8.0 % LAB BASO % BASOPHIL % 0.8 LAB IGABS 0.00-0.08 K/uL IMMATURE 0.19 High GRANS ABSOLUTE LAB SBANS 1.64-7.28 K/uL SEGS + 6.11 Bands,Absolute LAB ALYM 1.16-3.51 K/uL Abs Lymph 0.56 Low LAB AMONO 0.22-0.87 K/uL Abs Laurel 1.14 High LAB AEOS 0.00-0.42 K/uL Abs Eos 0.70 High LAB ABASO 0.00-0.15 K/uL Abs Baso 0.07 Performed By: #### CBCDFC, CA, CHM7, HFP, IPB, MGO, PTPTT #### [place] [address] CALCIUM Collected: 08/18/2018 Status: F Source: [facility] 5:15 [facility] REPOSITORY TYPE CODE TESTS RESULT OUT OF REFERENCE UNITS RANGE LAB CA 8.6-10.5 mg/dL Low Calcium 7.6 Performed By: #### CBCDFC, CA, CHM7, HFP, IPB, MGO, PTPTT #### [place] [address] CHEM 7 Collected: 08/18/2018 Status: F Source: [facility] 5:15 [facility] REPOSITORY TYPE CODE TESTS RESULT OUT OF REFERENCE UNITS RANGE LAB BUN 7-22 mg/dL BUN High 32 LAB NA 133-143 mmol/L Low Sodium 132 LAB K 3.5-5.0 mmol/L Potassium 4.1 LAB CL 98-108 mmol/L Chloride 100 LAB CO2 22-30 mmol/L Carbon Dioxide 24 LAB GLUC 70-99 mg/dL Glucose High 163 LAB CREA 0.50-1.20 mg/dL High Creatinine 5.09 LAB GAP 7-17 mmol/L Anion Gap 12 LAB BC BUN/CREA Ratio 6 LAB [facility] 278-305 mOsm/kg Osmolality 289 (Calc) LAB GFR >60 mL/min/1.73 Low sqM Est GFR,non 9 Estonian LAB GFRA >60 mL/min/1.73 Low sqM Est GFR, 10 Performed By: #### CBCDFC, CA, CHM7, HFP, IPB, MGO, PTPTT #### [facility] [address] [place] [id number] [place] [address] [place] [id number] HEPATIC FUNCTION Collected: 08/18/2018 Status: F Source: [facility] 5:15 AM [facility] REPOSITORY TYPE CODE TESTS RESULT OUT OF REFERENCE UNITS RANGE LAB ALB 3.5-5.0 g/dL Low Albumin 1.9 LAB BILD <0.3 mg/dL Bilirubin High Direct 0.6 LAB BILT <1.5 mg/dL Bilirubin High Total 1.6 LAB ALP 32-126 U/L Alkaline High Phosphatase 214 LAB ALT 9-48 U/L ALT 14 LAB AST 14-40 U/L AST 30 LAB TP 6.4-8.3 g/dL Low Total Protein 4.8 Performed By: #### CBCDFC, CA, CHM7, HFP, IPB, MGO, PTPTT #### [facility] [address] [place] [address] [place] [id number] INORGANIC PHOSPHATE Collected: 08/18/2018 Status: F Source: [facility] 5:15 AM [facility] REPOSITORY TYPE CODE TESTS RESULT OUT OF REFERENCE UNITS RANGE LAB IP 2.2-4.6 mg/dL Inorg High Phosphate 5.0 Performed By: #### CBCDFC, CA, CHM7, HFP, IPB, MGO, PTPTT #### [facility] [address] [place] [id number] [place] [address] [place] [id number] MAGNESIUM Collected: 08/18/2018 Status: F Source: [facility] [facility] 5:15 AM [facility] REPOSITORY TYPE CODE TESTS RESULT OUT OF REFERENCE UNITS RANGE LAB MG 1.6-2.6 mg/dL Magnesium 2.2 Performed By: #### CBCDFC, CA, CHM7, HFP, IPB, MGO, PTPTT #### [facility] [address] [place] [address] [place] [address] PT*PTT Collected: 08/18/2018 Status: F Source: [facility] 5:15 AM [facility] REPOSITORY TYPE CODE TESTS RESULT OUT OF RANGE REFERENCE UNITS LAB PT 11.9-14.2 sec High PT 17.2 LAB INR 0.9-1.1 High INR 1.4 LAB PTT 24.0-34.3 sec High PTT 37.3 Performed By: #### CBCDFC, CA, CHM7, HFP, IPB, MGO, PTPTT #### [facility] [address] [place] [address] [place] [address] Observed: 08/18/2018 Status: F Source: [facility] TYPE AND CROSS 5:15 AM [facility] REPOSITORY ABO/RH(D): O POSITIVE ANTIBODY SCREEN: NEGATIVE Performed By: #### XM #### [facility] [address] [place] [address] [place] [address] *POC GLUCOSE BATTERY Collected: 08/17/2018 Status: F Source: [facility] 10:11 PM [facility] REPOSITORY TYPE CODE TESTS RESULT OUT OF REFERENCE UNITS RANGE LAB GLUP 70-99 mg/dL High Glucose (poc 139 device) Result Comment: Notified RNread back No BRAVE per RN: PATIENT TYPE LAB PCSTYP *POC Capillary SAMPLE TYPE Blood *POC GLUCOSE BATTERY Collected: 08/17/2018 Status: F Source: [facility] 5:41 PM [facility] REPOSITORY TYPE CODE TESTS RESULT OUT OF REFERENCE UNITS RANGE LAB GLUP 70-99 mg/dL High Glucose (poc 164 device) Result Comment: Meets BRAVE per RN: PATIENT TYPE LAB PCSTYP *POC SAMPLE TYPE Venous Observed: 08/17/2018 Status: F Source: [facility] URINE CULTURE -UHE 2:24 PM [facility] REPOSITORY SOURCE: URINE-CLEAN CATCH: RESULT: NO GROWTH REPORT STATUS: 08/18/2018 FINAL Performed By: #### UR #### [place] [address] Blood Cultures processed at: [facility] *POC GLUCOSE BATTERY Collected: 08/17/2018 Status: F Source: [facility] 10:39 AM [facility] REPOSITORY TYPE CODE TESTS RESULT OUT OF REFERENCE UNITS RANGE LAB GLUP 70-99 mg/dL High Glucose (poc 162 device) Result Comment: No BRAVE per RN: PATIENT TYPE LAB PCSTYP *POC Capillary SAMPLE TYPE Blood *POC GLUCOSE BATTERY Collected: 08/17/2018 Status: F Source: [facility] 8:01 AM [facility] REPOSITORY TYPE CODE TESTS RESULT OUT OF REFERENCE UNITS RANGE LAB GLUP 70-99 mg/dL High Glucose (poc 124 device) Result Comment: No BRAVE per RN: PATIENT TYPE LAB PCSTYP *POC Capillary SAMPLE TYPE Blood CBC,PLATELET,DIFFERENTIAL - CCL Collected: Status: F Source: [facility] 08/17/2018 5:55 AM [facility] REPOSITORY TYPE CODE TESTS RESULT OUT OF REFERENCE UNITS RANGE LAB WBC 3.99-11.19 K/uL WBC Count 8.25 LAB RBC 3.91-5.04 M/uL RBC Count 2.65 Low LAB HGB 11.4-15.2 g/dL Hemoglobin 7.9 Low LAB HCT 34.9-44.3 % Hematocrit 24.1 Low LAB MCV 79.6-97.7 fL Mean Cell 90.9 Volume LAB MCH 25.9-33.9 pg Mean Cell 29.8 Hgb LAB MCHC 31.4-35.9 g/dL Mean Cell 32.8 Hgb Conc LAB RDW 10.8-14.9 % RBC 23.8 High Distribution LAB PLT 150-393 K/uL Platelet 75 Low Count LAB MPV 8.5-12.2 fL Mean 10.0 Platelet Volume LAB NRBC 0.0-0.2 /100 WBC NUCLEATED 0.0 RBC LAB DTYPE Electronic DIFFERENTIAL TYPE Differential LAB IGRE % IMMATURE 3.9 GRANS % LAB SEGS % NEUTROPHIL 71.5 SEGMENTED LAB LYM % LYMPHOCYTE 5.8 % LAB MON % MONOCYTE % 12.4 LAB EOS % *EOSINOPHIL 5.7 % LAB BASO % BASOPHIL % 0.7 LAB IGABS 0.00-0.08 K/uL IMMATURE 0.32 High GRANS ABSOLUTE LAB SBANS 1.64-7.28 K/uL SEGS + 5.90 Bands,Absolute LAB ALYM 1.16-3.51 K/uL Abs Lymph 0.48 Low LAB AMONO 0.22-0.87 K/uL Abs Laurel 1.02 High LAB AEOS 0.00-0.42 K/uL Abs Eos 0.47 High LAB ABASO 0.00-0.15 K/uL Abs Baso 0.06 Performed By: #### CBCDFC, CA, CHM7, HFP, IPB, MGO, PTPTT #### [facility] [address] [address] CALCIUM Collected: 08/17/2018 Status: F Source: [facility] 5:55 AM [facility] REPOSITORY TYPE CODE TESTS RESULT OUT OF REFERENCE UNITS RANGE LAB CA 8.6-10.5 mg/dL Low Calcium 7.7 Performed By: #### CBCDFC, CA, CHM7, HFP, IPB, MGO, PTPTT #### [facility] [address] [address] CHEM 7 Collected: 08/17/2018 Status: F Source: [facility] 5:55 AM [facility] REPOSITORY TYPE CODE TESTS RESULT OUT OF REFERENCE UNITS RANGE LAB BUN 7-22 mg/dL BUN High 26 LAB NA 133-143 mmol/L Sodium 134 LAB K 3.5-5.0 mmol/L Potassium 4.1 LAB CL 98-108 mmol/L Chloride 100 LAB CO2 22-30 mmol/L Carbon Dioxide 27 LAB GLUC 70-99 mg/dL Glucose High 136 LAB CREA 0.50-1.20 mg/dL High Creatinine 4.12 LAB GAP 7-17 mmol/L Anion Gap 11 LAB BC BUN/CREA Ratio 6 LAB [facility] 278-305 mOsm/kg Osmolality 289 (Calc) LAB GFR >60 mL/min/1.73 Low sqM Est GFR,non 11 Estonian LAB GFRA >60 mL/min/1.73 Low sqM Est GFR, 13 Performed By: #### CBCDFC, CA, CHM7, HFP, IPB, MGO, PTPTT #### [facility] [address] [place] [address] HEPATIC FUNCTION Collected: 08/17/2018 Status: F Source: [facility] PANEL 5:55 AM [facility] REPOSITORY TYPE CODE TESTS RESULT OUT OF REFERENCE UNITS RANGE LAB ALB 3.5-5.0 g/dL Low Albumin 2.2 LAB BILD <0.3 mg/dL Bilirubin High Direct 0.7 LAB BILT <1.5 mg/dL Bilirubin High Total 1.5 LAB ALP 32-126 U/L Alkaline High Phosphatase 209 LAB ALT 9-48 U/L ALT 14 LAB AST 14-40 U/L AST 27 LAB TP 6.4-8.3 g/dL Low Total Protein 4.9 Performed By: #### CBCDFC, CA, CHM7, HFP, IPB, MGO, PTPTT #### [facility] [address] [place] [id number] [place] [address] INORGANIC PHOSPHATE Collected: 08/17/2018 Status: F Source: [facility] 5:55 AM [facility] REPOSITORY TYPE CODE TESTS RESULT OUT OF REFERENCE UNITS RANGE LAB IP 2.2-4.6 mg/dL Inorg Phosphate 4.4 Performed By: #### CBCDFC, CA, CHM7, HFP, IPB, MGO, PTPTT #### [facility] [address] [place] [id number] [place] [address] [place] [address] MAGNESIUM Collected: 08/17/2018 Status: F Source: [facility] 5:55 AM [facility] REPOSITORY TYPE CODE TESTS RESULT OUT OF REFERENCE UNITS RANGE LAB MG 1.6-2.6 mg/dL Magnesium 2.1 Performed By: #### CBCDFC, CA, CHM7, HFP, IPB, MGO, PTPTT #### [facility] [address] [place] [phone] [place] [address] [place] [address] PT*PTT Collected: 08/17/2018 Status: F Source: [facility] 5:55 AM [facility] REPOSITORY TYPE CODE TESTS RESULT OUT OF RANGE REFERENCE UNITS LAB PT 11.9-14.2 sec High PT 16.9 LAB INR 0.9-1.1 High INR 1.4 LAB PTT 24.0-34.3 sec High PTT 38.2 Performed By: #### CBCDFC, CA, CHM7, HFP, IPB, MGO, PTPTT #### [facility] [address] [place] [address] [address] [place] [address] *POC GLUCOSE BATTERY Collected: 08/16/2018 Status: F Source: [facility] 9:56 PM [facility] REPOSITORY TYPE CODE TESTS RESULT OUT OF REFERENCE UNITS RANGE LAB GLUP 70-99 mg/dL High Glucose (poc 156 device) Result Comment: Notified RNread back No BRAVE per RN: PATIENT TYPE LAB PCSTYP *POC Capillary SAMPLE TYPE Blood URINALYSIS Collected: 08/16/2018 Status: F Source: [facility] 8:54 PM [facility] REPOSITORY TYPE CODE TESTS RESULT OUT OF RANGE REFERENCE UNITS LAB [employer] Clear Appearance Urine Clear LAB SPGR 1.001-1.035 Specific [place] urine 1.007 LAB UGL Negative mg/dL Glucose Urine Negative LAB UKET Negative Ketones Urine Negative LAB UBLD Negative Blood Urine Abnormal Large LAB UPH 5.0-7.0 pH Urine 6.5 LAB UPR Negative mg/dL Protein Abnormal Urine 100 LAB UNTR Negative Nitrites Urine Negative LAB ULEU Negative Leukocyte Abnormal Esterase Moderate LAB COLR Yellow Color Yellow LAB UURO <2.0 EU/dL Urobilinogen 0.2 urine LAB UWBC 0-5 /HPF WBC Urine Abnormal >20 LAB URBC 0-2 /HPF RBC Urine Abnormal >20 LAB BACT Absent Bacteria Absent LAB UCOM COMMENT URINE None LAB EPIS /HPF Squamous Epithelial 3+ Performed By: #### URIN #### [facility] [address] [place] [address] [facility] [address] [place], [place] [address] Observed: 08/16/2018 Status: F Source: [facility] URINE CULTURE -UHE 8:54 PM [facility] REPOSITORY SOURCE: URINE-CLEAN CATCH: RESULT: NO GROWTH REPORT STATUS: 08/18/2018 FINAL Performed By: #### UR #### [facility] [address] [place] [address] Blood Cultures processed at: [facility] *POC GLUCOSE BATTERY Collected: 08/16/2018 Status: F Source: [facility] 5:28 PM [facility] REPOSITORY TYPE CODE TESTS RESULT OUT OF REFERENCE UNITS RANGE LAB GLUP 70-99 mg/dL High Glucose (poc 184 device) Result Comment: Notified RNread back No BRAVE per RN: PATIENT TYPE LAB PCSTYP *POC Capillary SAMPLE TYPE Blood *POC GLUCOSE BATTERY Collected: 08/16/2018 Status: F Source: [facility] 11:30 AM [facility] REPOSITORY TYPE CODE TESTS RESULT OUT OF REFERENCE UNITS RANGE LAB GLUP 70-99 mg/dL High Glucose (poc 233 device) Result Comment: Notified RNread back No BRAVE per RN: PATIENT TYPE LAB PCSTYP *POC Capillary SAMPLE TYPE Blood XR CHEST PORTABLE Observed: 08/16/2018 Status: F Source: [facility] 11:21 AM [facility] REPOSITORY EXAM: XR CHEST PORTABLE, 08/16/2018 09:49 AM COMPARISON: Compared to prior day. CLINICAL INDICATIONS: , fever FINDINGS: Support devices are unchanged. Diffuse airspace disease appears slightly improved. No new consolidation. No pneumothorax or pleural effusion. Heart size stable. IMPRESSION: Slight interval improvement in diffuse bilateral airspace disease. Critical Results: None reported Observed: 08/16/2018 Status: F Source: [facility] BLOOD:ROUTINE I 9:50 AM [facility] REPOSITORY SOURCE: BLOOD, PERIPHERAL: Right Wrist RESULT: NO GROWTH DAY 5 OF 5 REPORT STATUS: 08/21/2018 FINAL Performed By: #### JARAD #### [address] [address] Blood Cultures processed at: [facility] Observed: 08/16/2018 Status: F Source: [facility] BLOOD: LINE ASSESSMENT 8:27 [facility] REPOSITORY SOURCE: LINE MEDIPORT: RESULT: NO GROWTH DAY 5 OF 5 REPORT STATUS: 08/21/2018 FINAL Performed By: #### TAMIR #### [address] [address] Blood Cultures processed at: [facility] Observed: 08/16/2018 Status: F Source: [facility] BLOOD:LINE ASSESSMENT 8:[address] REPOSITORY SOURCE: LINE, HEMODIALYSIS: RESULT: NO GROWTH DAY 5 OF 5 REPORT STATUS: 08/21/2018 FINAL Performed By: #### LINE2 #### [place] [address] Blood Cultures processed at: [facility] *POC GLUCOSE BATTERY Collected: 08/16/2018 Status: F Source: [facility] 7:34 AM [facility] REPOSITORY TYPE CODE TESTS RESULT OUT OF REFERENCE UNITS RANGE LAB GLUP 70-99 mg/dL High Glucose (poc 127 device) Result Comment: Notified RNread back No BRAVE per RN: PATIENT TYPE LAB PCSTYP *POC Capillary SAMPLE TYPE Blood CBC,PLATELET,DIFFERENTIAL - CCL Collected: Status: F Source: [facility] 08/16/2018 4:44 AM [facility] REPOSITORY TYPE CODE TESTS RESULT OUT OF REFERENCE UNITS RANGE LAB WBC 3.99-11.19 K/uL WBC Count 6.70 LAB RBC 3.91-5.04 M/uL RBC Count 2.83 Low LAB HGB 11.4-15.2 g/dL Hemoglobin 8.3 Low LAB HCT 34.9-44.3 % Hematocrit 26.1 Low LAB MCV 79.6-97.7 fL Mean Cell 92.2 Volume LAB MCH 25.9-33.9 pg Mean Cell 29.3 Hgb LAB MCHC 31.4-35.9 g/dL Mean Cell 31.8 Hgb Conc LAB RDW 10.8-14.9 % RBC 23.9 High Distribution LAB PLT 150-393 K/uL Platelet 91 Low Count LAB MPV 8.5-12.2 fL Mean 9.3 Platelet Volume LAB NRBC 0.0-0.2 /100 WBC NUCLEATED 0.3 High RBC LAB DTYPE Electronic DIFFERENTIAL TYPE Differential LAB IGRE % IMMATURE 1.9 GRANS % LAB SEGS % NEUTROPHIL 72.2 SEGMENTED LAB LYM % LYMPHOCYTE 6.1 % LAB MON % MONOCYTE % 12.2 LAB EOS % *EOSINOPHIL 6.4 % LAB BASO % BASOPHIL % 1.2 LAB IGABS 0.00-0.08 K/uL IMMATURE 0.13 High GRANS ABSOLUTE LAB SBANS 1.64-7.28 K/uL SEGS + 4.83 Bands,Absolute LAB ALYM 1.16-3.51 K/uL Abs Lymph 0.41 Low LAB AMONO 0.22-0.87 K/uL Abs Laurel 0.82 LAB AEOS 0.00-0.42 K/uL Abs Eos 0.43 High LAB ABASO 0.00-0.15 K/uL Abs Baso 0.08 Performed By: #### CBCDFC, CA, CHM7, HFP, IPB, MGO, PTPTT #### [facility] [address] [place] [address] CALCIUM Collected: 08/16/2018 Status: F Source: [facility] 4:44 [facility] REPOSITORY TYPE CODE TESTS RESULT OUT OF REFERENCE UNITS RANGE LAB CA 8.6-10.5 mg/dL Low Calcium 7.7 Performed By: #### CBCDFC, CA, CHM7, HFP, IPB, MGO, PTPTT #### [place] [address] CHEM 7 Collected: 08/16/2018 Status: F Source: [facility] 4:44 [facility] REPOSITORY TYPE CODE TESTS RESULT OUT OF REFERENCE UNITS RANGE LAB BUN 7-22 mg/dL BUN 20 LAB NA 133-143 mmol/L Sodium 136 LAB K 3.5-5.0 mmol/L Potassium 4.3 LAB CL 98-108 mmol/L Chloride 102 LAB CO2 22-30 mmol/L Carbon Dioxide 28 LAB GLUC 70-99 mg/dL Glucose High 139 LAB CREA 0.50-1.20 mg/dL High Creatinine 3.05 LAB GAP 7-17 mmol/L Anion Gap 10 LAB BC BUN/CREA Ratio 7 LAB [facility] 278-305 mOsm/kg Osmolality 291 (Calc) LAB GFR >60 mL/min/1.73 Low sqM Est GFR,non 15 Estonian LAB GFRA >60 mL/min/1.73 Low sqM Est GFR, 19 Performed By: #### CBCDFC, CA, CHM7, HFP, IPB, MGO, PTPTT #### [facility] [address] [place] [address] [facility] [address] [place] [address] HEPATIC FUNCTION Collected: 08/16/2018 Status: F Source: [facility] 4:44 [facility] REPOSITORY TYPE CODE TESTS RESULT OUT OF REFERENCE UNITS RANGE LAB ALB 3.5-5.0 g/dL Low Albumin 2.3 LAB BILD <0.3 mg/dL Bilirubin High Direct 0.6 LAB BILT <1.5 mg/dL Bilirubin Total 1.3 LAB ALP 32-126 U/L Alkaline High Phosphatase 238 LAB ALT 9-48 U/L ALT 16 LAB AST 14-40 U/L AST 28 LAB TP 6.4-8.3 g/dL Low Total Protein 5.1 Performed By: #### CBCDFC, CA, CHM7, HFP, IPB, MGO, PTPTT #### [facility] [address] [place] [phone] [place] [address] [place] [address] INORGANIC PHOSPHATE Collected: 08/16/2018 Status: F Source: [facility] 4:44 AM [facility] REPOSITORY TYPE CODE TESTS RESULT OUT OF REFERENCE UNITS RANGE LAB IP 2.2-4.6 mg/dL Inorg Phosphate 3.9 Performed By: #### CBCDFC, CA, CHM7, HFP, IPB, MGO, PTPTT #### [facility] [address] [place] [address] [facility] [address] [place] [address] MAGNESIUM Collected: 08/16/2018 Status: F Source: [facility] 4:44 AM [facility] REPOSITORY TYPE CODE TESTS RESULT OUT OF REFERENCE UNITS RANGE LAB MG 1.6-2.6 mg/dL Magnesium 2.0 Performed By: #### CBCDFC, CA, CHM7, HFP, IPB, MGO, PTPTT #### [facility] [address] [place] [address] [facility] [address] [place] [address] PT*PTT Collected: 08/16/2018 Status: F Source: [facility] 4:44 AM [facility] REPOSITORY TYPE CODE TESTS RESULT OUT OF RANGE REFERENCE UNITS LAB PT 11.9-14.2 sec High PT 16.0 LAB INR 0.9-1.1 High INR 1.3 LAB PTT 24.0-34.3 sec High PTT 36.7 Performed By: #### CBCDFC, CA, CHM7, HFP, IPB, MGO, PTPTT #### [facility] [address] [place] [address] [place] [address] *POC GLUCOSE BATTERY Collected: 08/15/2018 Status: F Source: [facility] 9:16 PM [facility] REPOSITORY TYPE CODE TESTS RESULT OUT OF REFERENCE UNITS RANGE LAB GLUP 70-99 mg/dL High Glucose (poc 179 device) Result Comment: No BRAVE per RN: PATIENT TYPE LAB PCSTYP *POC Capillary SAMPLE TYPE Blood *POC GLUCOSE BATTERY Collected: 08/15/2018 Status: F Source: [facility] 6:06 PM [facility] REPOSITORY TYPE CODE TESTS RESULT OUT OF REFERENCE UNITS RANGE LAB GLUP 70-99 mg/dL High Glucose (poc 154 device) Result Comment: No BRAVE per RN: PATIENT TYPE LAB PCSTYP *POC Capillary SAMPLE TYPE Blood *POC GLUCOSE BATTERY Collected: 08/15/2018 Status: F Source: [facility] 11:31 AM [facility] REPOSITORY TYPE CODE TESTS RESULT OUT OF REFERENCE UNITS RANGE LAB GLUP 70-99 mg/dL High Glucose (poc 134 device) Result Comment: No BRAVE per RN: PATIENT TYPE LAB PCSTYP *POC Capillary SAMPLE TYPE Blood *POC GLUCOSE BATTERY Collected: 08/15/2018 Status: F Source: [facility] 7:31 AM [facility] REPOSITORY TYPE CODE TESTS RESULT OUT OF REFERENCE UNITS RANGE LAB GLUP 70-99 mg/dL High Glucose (poc 121 device) Result Comment: No BRAVE per RN: PATIENT TYPE LAB PCSTYP *POC Capillary SAMPLE TYPE Blood CBC,PLATELET,DIFFERENTIAL - CCL Collected: Status: F Source: [facility] 08/15/2018 4:31 AM [facility] REPOSITORY TYPE CODE TESTS RESULT OUT OF REFERENCE UNITS RANGE LAB WBC 3.99-11.19 K/uL WBC Count 6.26 LAB RBC 3.91-5.04 M/uL RBC Count 2.74 Low LAB HGB 11.4-15.2 g/dL Hemoglobin 8.1 Low LAB HCT 34.9-44.3 % Hematocrit 24.8 Low LAB MCV 79.6-97.7 fL Mean Cell 90.5 Volume LAB MCH 25.9-33.9 pg Mean Cell 29.6 Hgb LAB MCHC 31.4-35.9 g/dL Mean Cell 32.7 Hgb Conc LAB RDW 10.8-14.9 % RBC 23.6 High Distribution LAB PLT 150-393 K/uL Platelet 103 Low Count LAB MPV 8.5-12.2 fL Mean 9.8 Platelet Volume LAB NRBC 0.0-0.2 /100 WBC NUCLEATED 0.0 RBC LAB DTYPE Electronic DIFFERENTIAL TYPE Differential LAB IGRE % IMMATURE 1.4 GRANS % LAB SEGS % NEUTROPHIL 68.8 SEGMENTED LAB LYM % LYMPHOCYTE 9.7 % LAB MON % MONOCYTE % 10.5 LAB EOS % *EOSINOPHIL 7.8 % LAB BASO % BASOPHIL % 1.8 LAB IGABS 0.00-0.08 K/uL IMMATURE 0.09 High GRANS ABSOLUTE LAB SBANS 1.64-7.28 K/uL SEGS + 4.30 Bands,Absolute LAB ALYM 1.16-3.51 K/uL Abs Lymph 0.61 Low LAB AMONO 0.22-0.87 K/uL Abs Laurel 0.66 LAB AEOS 0.00-0.42 K/uL Abs Eos 0.49 High LAB ABASO 0.00-0.15 K/uL Abs Baso 0.11 Performed By: #### CBCDFC, CA, CHM7, CKB, HFP, IPB, MGO, PTPTT #### [facility] [address] [place] [address] [place] [address] CALCIUM Collected: 08/15/2018 Status: F Source: [facility] 4:31 AM [facility] REPOSITORY TYPE CODE TESTS RESULT OUT OF REFERENCE UNITS RANGE LAB CA 8.6-10.5 mg/dL Low Calcium 7.7 Performed By: #### CBCDFC, CA, CHM7, CKB, HFP, IPB, MGO, PTPTT #### [facility] [address] [place] [address] [facility] [address] [place] [address] CHEM 7 Collected: 08/15/2018 Status: F Source: [facility] 4:31 AM [facility] REPOSITORY TYPE CODE TESTS RESULT OUT OF REFERENCE UNITS RANGE LAB BUN 7-22 mg/dL BUN High 29 LAB NA 133-143 mmol/L Sodium 138 LAB K 3.5-5.0 mmol/L Potassium 4.1 LAB CL 98-108 mmol/L Chloride 104 LAB CO2 22-30 mmol/L Carbon Dioxide 24 LAB GLUC 70-99 mg/dL Glucose High 123 LAB CREA 0.50-1.20 mg/dL High Creatinine 3.35 LAB GAP 7-17 mmol/L Anion Gap 14 LAB BC BUN/CREA Ratio 9 LAB [facility] 278-305 mOsm/kg Osmolality 297 (Calc) LAB GFR >60 mL/min/1.73 Low sqM Est GFR,non 14 Estonian LAB GFRA >60 mL/min/1.73 Low sqM Est GFR, 17 Performed By: #### CBCDFC, CA, CHM7, CKB, HFP, IPB, MGO, PTPTT #### [facility] [address] [place] [phone] [place] [address] [place] [id number] CK Collected: 08/15/2018 Status: F Source: [facility] 4:31 AM [facility] REPOSITORY TYPE CODE TESTS RESULT OUT OF REFERENCE UNITS RANGE LAB CK 30-184 U/L Creatine 36 Kinase Performed By: #### CBCDFC, CA, CHM7, CKB, HFP, IPB, MGO, PTPTT #### [facility] [address] [place] [phone] [place] [address] [place] [address] HEPATIC FUNCTION Collected: 08/15/2018 Status: F Source: [facility] 4:31 AM [facility] REPOSITORY TYPE CODE TESTS RESULT OUT OF REFERENCE UNITS RANGE LAB ALB 3.5-5.0 g/dL Low Albumin 2.2 LAB BILD <0.3 mg/dL Bilirubin High Direct 0.5 LAB BILT <1.5 mg/dL Bilirubin Total 1.2 LAB ALP 32-126 U/L Alkaline High Phosphatase 228 LAB ALT 9-48 U/L ALT 17 LAB AST 14-40 U/L AST 29 LAB TP 6.4-8.3 g/dL Low Total Protein 5.0 Performed By: #### CBCDFC, CA, CHM7, CKB, HFP, IPB, MGO, PTPTT #### [facility] [address] [place] [phone] [place] [address] [place] [address] INORGANIC PHOSPHATE Collected: 08/15/2018 Status: F Source: [facility] 4:31 AM [facility] REPOSITORY TYPE CODE TESTS RESULT OUT OF REFERENCE UNITS RANGE LAB IP 2.2-4.6 mg/dL Inorg Phosphate 3.8 Performed By: #### CBCDFC, CA, CHM7, CKB, HFP, IPB, MGO, PTPTT #### [facility] [address] [place] [address] [place] [address] MAGNESIUM Collected: 08/15/2018 Status: F Source: [facility] 4:31 AM [facility] REPOSITORY TYPE CODE TESTS RESULT OUT OF REFERENCE UNITS RANGE LAB MG 1.6-2.6 mg/dL Magnesium 2.0 Performed By: #### CBCDFC, CA, CHM7, CKB, HFP, IPB, MGO, PTPTT #### [facility] [address] [place] [phone] [place] [address] [place] [phone] PT*PTT Collected: 08/15/2018 Status: F Source: [facility] 4:31 AM [facility] REPOSITORY TYPE CODE TESTS RESULT OUT OF RANGE REFERENCE UNITS LAB PT 11.9-14.2 sec High PT 16.0 LAB INR 0.9-1.1 High INR 1.3 LAB PTT 24.0-34.3 sec High PTT 37.4 Performed By: #### CBCDFC, CA, CHM7, CKB, HFP, IPB, MGO, PTPTT #### [facility] [address] [place] [address] [facility] [address] [place], [place] [address] Observed: 08/15/2018 Status: F Source: [facility] TYPE AND CROSS 4:31 AM [facility] REPOSITORY ABO/RH(D): O POSITIVE ANTIBODY SCREEN: NEGATIVE Performed By: #### XM #### [facility] [address] [place] [address] *POC GLUCOSE BATTERY Collected: 08/14/2018 Status: F Source: [facility] 9:51 PM [facility] REPOSITORY TYPE CODE TESTS RESULT OUT OF REFERENCE UNITS RANGE LAB GLUP 70-99 mg/dL High Glucose (poc 155 device) Result Comment: Notified RNread back No BRAVE per RN: PATIENT TYPE LAB PCSTYP *POC Capillary SAMPLE TYPE Blood *POC GLUCOSE BATTERY Collected: 08/14/2018 Status: F Source: [facility] 6:36 PM [facility] REPOSITORY TYPE CODE TESTS RESULT OUT OF REFERENCE UNITS RANGE LAB GLUP 70-99 mg/dL High Glucose (poc 131 device) Result Comment: No BRAVE per RN: PATIENT TYPE LAB PCSTYP *POC Capillary SAMPLE TYPE Blood *POC GLUCOSE BATTERY Collected: 08/14/2018 Status: F Source: [facility] 11:44 AM [facility] REPOSITORY TYPE CODE TESTS RESULT OUT OF REFERENCE UNITS RANGE LAB GLUP 70-99 mg/dL High Glucose (poc 169 device) Result Comment: No BRAVE per RN: PATIENT TYPE LAB PCSTYP *POC Capillary SAMPLE TYPE Blood *POC GLUCOSE BATTERY Collected: 08/14/2018 Status: F Source: [facility] 7:23 AM [facility] REPOSITORY TYPE CODE TESTS RESULT OUT OF REFERENCE UNITS RANGE LAB GLUP 70-99 mg/dL High Glucose (poc 148 device) Result Comment: No BRAVE per RN: PATIENT TYPE LAB PCSTYP *POC Capillary SAMPLE TYPE Blood CBC,PLATELET,DIFFERENTIAL - CCL Collected: Status: F Source: [facility] 08/14/2018 2:40 AM [facility] REPOSITORY TYPE CODE TESTS RESULT OUT OF REFERENCE UNITS RANGE LAB WBC 3.99-11.19 K/uL WBC Count 8.32 LAB RBC 3.91-5.04 M/uL RBC Count 2.74 Low LAB HGB 11.4-15.2 g/dL Hemoglobin 8.1 Low LAB HCT 34.9-44.3 % Hematocrit 24.8 Low LAB MCV 79.6-97.7 fL Mean Cell 90.5 Volume LAB MCH 25.9-33.9 pg Mean Cell 29.6 Hgb LAB MCHC 31.4-35.9 g/dL Mean Cell 32.7 Hgb Conc LAB RDW 10.8-14.9 % RBC 23.3 High Distribution LAB PLT 150-393 K/uL Platelet 109 Low Count LAB MPV 8.5-12.2 fL Mean 10.6 Platelet Volume LAB NRBC 0.0-0.2 /100 WBC NUCLEATED 0.0 RBC LAB DTYPE Electronic DIFFERENTIAL TYPE Differential LAB IGRE % IMMATURE 1.2 GRANS % LAB SEGS % NEUTROPHIL 77.4 SEGMENTED LAB LYM % LYMPHOCYTE 6.9 % LAB MON % MONOCYTE % 9.0 LAB EOS % *EOSINOPHIL 4.2 % LAB BASO % BASOPHIL % 1.3 LAB IGABS 0.00-0.08 K/uL IMMATURE 0.10 High GRANS ABSOLUTE LAB SBANS 1.64-7.28 K/uL SEGS + 6.44 Bands,Absolute LAB ALYM 1.16-3.51 K/uL Abs Lymph 0.57 Low LAB AMONO 0.22-0.87 K/uL Abs Laurel 0.75 LAB AEOS 0.00-0.42 K/uL Abs Eos 0.35 LAB ABASO 0.00-0.15 K/uL Abs Baso 0.11 Performed By: #### CBCDFC, CA, CHM7, HFP, IPB, MGO, PTPTT, HEP3B #### [facility] [address] [place] [id number] [place] [address] [address] [place] [address] CALCIUM Collected: 08/14/2018 Status: F Source: [facility] 2:40 AM [facility] REPOSITORY TYPE CODE TESTS RESULT OUT OF REFERENCE UNITS RANGE LAB CA 8.6-10.5 mg/dL Low Calcium 7.6 Performed By: #### CBCDFC, CA, CHM7, HFP, IPB, MGO, PTPTT, HEP3B #### [facility] [address] [place] [id number] [place] [address] [place] [address] CHEM 7 Collected: 08/14/2018 Status: F Source: [facility] 2:40 AM [facility] REPOSITORY TYPE CODE TESTS RESULT OUT OF REFERENCE UNITS RANGE LAB BUN 7-22 mg/dL BUN High 40 LAB NA 133-143 mmol/L Sodium 137 LAB K 3.5-5.0 mmol/L Potassium 4.3 LAB CL 98-108 mmol/L Chloride 105 LAB CO2 22-30 mmol/L Low Carbon Dioxide 20 LAB GLUC 70-99 mg/dL Glucose High 193 LAB CREA 0.50-1.20 mg/dL High Creatinine 3.85 LAB GAP 7-17 mmol/L Anion Gap 16 LAB BC BUN/CREA Ratio 10 LAB OSMC 278-305 mOsm/kg Osmolality 303 (Calc) LAB GFR >60 mL/min/1.73 Low sqM Est GFR,non 12 Estonian LAB GFRA >60 mL/min/1.73 Low sqM Est GFR, 14 Performed By: #### CBCDFC, CA, CHM7, HFP, IPB, MGO, PTPTT, HEP3B #### [facility] [address] [place] [id number] [facility] [address] [place] [address] HEPATIC FUNCTION Collected: 08/14/2018 Status: F Source: [facility] PANEL 2:40 AM [facility] REPOSITORY TYPE CODE TESTS RESULT OUT OF REFERENCE UNITS RANGE LAB ALB 3.5-5.0 g/dL Low Albumin 2.1 LAB BILD <0.3 mg/dL Bilirubin High Direct 0.7 LAB BILT <1.5 mg/dL Bilirubin Total 1.4 LAB ALP 32-126 U/L Alkaline High Phosphatase 233 LAB ALT 9-48 U/L ALT 19 LAB AST 14-40 U/L AST 32 LAB TP 6.4-8.3 g/dL Low Total Protein 5.1 Performed By: #### CBCDFC, CA, CHM7, HFP, IPB, MGO, PTPTT, HEP3B #### [facility] [address] [address] [facility] [address] [place] [address] INORGANIC PHOSPHATE Collected: 08/14/2018 Status: F Source: [facility] 2:40 AM [facility] REPOSITORY TYPE CODE TESTS RESULT OUT OF REFERENCE UNITS RANGE LAB IP 2.2-4.6 mg/dL Inorg Phosphate 4.6 Performed By: #### CBCDFC, CA, CHM7, HFP, IPB, MGO, PTPTT, HEP3B #### [facility] [address] [place] [address] [place] [address] MAGNESIUM Collected: 08/14/2018 Status: F Source: [facility] 2:40 AM [facility] REPOSITORY TYPE CODE TESTS RESULT OUT OF REFERENCE UNITS RANGE LAB MG 1.6-2.6 mg/dL Magnesium 2.0 Performed By: #### CBCDFC, CA, CHM7, HFP, IPB, MGO, PTPTT, HEP3B #### [facility] [address] [place] [address] [place] [address] PT*PTT Collected: 08/14/2018 Status: F Source: [facility] 2:40 AM [facility] REPOSITORY TYPE CODE TESTS RESULT OUT OF RANGE REFERENCE UNITS LAB PT 11.9-14.2 sec High PT 17.0 LAB INR 0.9-1.1 High INR 1.4 LAB PTT 24.0-34.3 sec High PTT 37.8 Performed By: #### CBCDFC, CA, CHM7, HFP, IPB, MGO, PTPTT, HEP3B #### [facility] [address] [place] [address] [place] [address] CHRONIC HEPATITIS B Collected: 08/14/2018 Status: F Source: [facility] PACKAGE 2:40 AM [facility] REPOSITORY TYPE CODE TESTS RESULT OUT OF REFERENCE UNITS RANGE LAB HBSAG Negative Hep B Surface Ag Negative LAB HBSAB Negative Hep B Surface Ab Negative LAB HBCBG Negative Hep B Core Ab,Total Negative (IgG+IgM) LAB HCAB Negative Hepatitis C Negative Antibody Performed By: #### CBCDFC, CA, CHM7, HFP, IPB, MGO, PTPTT, HEP3B #### [facility] [address] [place] [address] [facility] [address] [place], [place] [address] *POC GLUCOSE BATTERY Collected: 08/13/2018 Status: F Source: [facility] 9:48 PM [facility] REPOSITORY TYPE CODE TESTS RESULT OUT OF REFERENCE UNITS RANGE LAB GLUP 70-99 mg/dL High Glucose (poc 136 device) Result Comment: No BRAVE per RN: PATIENT TYPE LAB PCSTYP *POC Capillary SAMPLE TYPE Blood XR CHEST PORTABLE Observed: 08/13/2018 Status: F Source: [facility] 6:59 PM [facility] REPOSITORY EXAM: XR CHEST PORTABLE, 08/13/2018 17:45 PM COMPARISON: August 09, 2018 CLINICAL INDICATIONS: temp HD line placement RELEVANT CLINICAL HISTORY: FINDINGS: (Adequate technique) Life Support Devices: Interval placement right IJ central line with tip in upper SVC. Stable right subcutaneous port. Chest Wall: Normal Jodi: Normal Mediastinum: Normal Pleural Spaces: No definite pleural effusion. No definite pneumothorax. 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 Life support devices as described above. *POC GLUCOSE BATTERY Collected: 08/13/2018 Status: F Source: [facility] 12:32 PM [facility] REPOSITORY TYPE CODE TESTS RESULT OUT OF REFERENCE UNITS RANGE LAB GLUP 70-99 mg/dL High Glucose (poc 212 device) Result Comment: No BRAVE per RN: PATIENT TYPE LAB PCSTYP *POC Capillary SAMPLE TYPE Blood XR ABDOMEN 1 VIEW Observed: 08/13/2018 Status: F Source: [facility] PORTABLE 11:07 AM [facility] REPOSITORY EXAM: XR ABDOMEN 1 VIEW PORTABLE, 08/11/2018 21:27 PM COMPARISON: No prior abdominal radiographs available for comparison. CLINICAL INDICATIONS: abdominal distention w/ subjective sense of bloating in lymphoma pt. FINDINGS: Tubes: None. No gross free air. There is a non obstructive bowel gas pattern; mild-moderate stool burden noted. Of note is the somewhat nodular appearance to the stomach folds.. Fullness of left upper quadrant suggest splenomegaly. No significant calcific densities or definite stones. Visualized osseous structures are unremarkable for the patient's age. IMPRESSION: Splenomegaly Nodular appearance of gastric rugae of uncertain significance OVIRUS DNA, Collected: 08/13/2018 Status: F Source: [facility] QUANTITATIVE, PCR 9:38 AM [facility] REPOSITORY TYPE CODE TESTS RESULT OUT OF REFERENCE UNITS RANGE LAB SOUR24 ADV source Urine LAB ADTC <500 copies/mL ADENOVIRUS BY <500 PCR Result Comment: (NOTE) This test was developed and its analytical performance characteristics have been determined by [employer], [place], [place]. It has not been cleared or approved by the U.S. Food and Drug Administration. This assay has been validated pursuant to the CLIA regulations and is used for clinical purposes. This test is performed pursuant to a license agreement with [employer] Test Performed by [facility], [facility], [address] [place] [address] Colin Fleming M.D., Ph.D., Director of Laboratories , CLIA [id number] Reported by [facility] Performed By: #### XADVPC #### Reference lab information reported with result *POC GLUCOSE BATTERY Collected: 08/13/2018 Status: F Source: [facility] 7:27 AM [facility] REPOSITORY TYPE CODE TESTS RESULT OUT OF REFERENCE UNITS RANGE LAB GLUP 70-99 mg/dL High Glucose (poc 130 device) Result Comment: No BRAVE per RN: PATIENT TYPE LAB PCSTYP *POC Capillary SAMPLE TYPE Blood CBC,PLATELET,DIFFERENTIAL - CCL Collected: Status: F Source: [facility] 08/13/2018 4:10 AM [facility] REPOSITORY TYPE CODE TESTS RESULT OUT OF REFERENCE UNITS RANGE LAB WBC 3.99-11.19 K/uL WBC Count 8.97 LAB RBC 3.91-5.04 M/uL RBC Count 2.59 Low LAB HGB 11.4-15.2 g/dL Hemoglobin 7.6 Low LAB HCT 34.9-44.3 % Hematocrit 23.8 Low LAB MCV 79.6-97.7 fL Mean Cell 91.9 Volume LAB MCH 25.9-33.9 pg Mean Cell 29.3 Hgb LAB MCHC 31.4-35.9 g/dL Mean Cell 31.9 Hgb Conc LAB RDW 10.8-14.9 % RBC 23.5 High Distribution LAB PLT 150-393 K/uL Platelet 100 Low Count LAB MPV 8.5-12.2 fL Mean 10.1 Platelet Volume LAB NRBC 0.0-0.2 /100 WBC NUCLEATED 0.0 RBC LAB DTYPE Electronic DIFFERENTIAL TYPE Differential LAB IGRE % IMMATURE 1.0 GRANS % LAB SEGS % NEUTROPHIL 80.4 SEGMENTED LAB LYM % LYMPHOCYTE 4.9 % LAB MON % MONOCYTE % 9.9 LAB EOS % *EOSINOPHIL 2.7 % LAB BASO % BASOPHIL % 1.1 LAB IGABS 0.00-0.08 K/uL IMMATURE 0.09 High GRANS ABSOLUTE LAB SBANS 1.64-7.28 K/uL SEGS + 7.21 Bands,Absolute LAB ALYM 1.16-3.51 K/uL Abs Lymph 0.44 Low LAB AMONO 0.22-0.87 K/uL Abs Laurel 0.89 High LAB AEOS 0.00-0.42 K/uL Abs Eos 0.24 LAB ABASO 0.00-0.15 K/uL Abs Baso 0.10 Performed By: #### CBCDFC, CA, CHM7, HFP, IPB, MGO, PTPTT #### [place] [address] [place] [address] CALCIUM Collected: 08/13/2018 Status: F Source: [facility] 4:10 AM [facility] REPOSITORY TYPE CODE TESTS RESULT OUT OF REFERENCE UNITS RANGE LAB CA 8.6-10.5 mg/dL Low Calcium 7.8 Performed By: #### CBCDFC, CA, CHM7, HFP, IPB, MGO, PTPTT #### [facility] [address] [address] CHEM 7 Collected: 08/13/2018 Status: F Source: [facility] 4:10 AM [facility] REPOSITORY TYPE CODE TESTS RESULT OUT OF REFERENCE UNITS RANGE LAB BUN 7-22 mg/dL BUN High 47 LAB NA 133-143 mmol/L Sodium 137 LAB K 3.5-5.0 mmol/L Potassium 4.3 LAB CL 98-108 mmol/L Chloride 105 LAB CO2 22-30 mmol/L Low Carbon Dioxide 19 LAB GLUC 70-99 mg/dL Glucose High 122 LAB CREA 0.50-1.20 mg/dL High Creatinine 4.36 LAB GAP 7-17 mmol/L Anion Gap 17 LAB BC BUN/CREA Ratio 11 LAB OSMC 278-305 mOsm/kg Osmolality 301 (Calc) LAB GFR >60 mL/min/1.73 Low sqM Est GFR,non 10 Estonian LAB GFRA >60 mL/min/1.73 Low sqM Est GFR, 12 Performed By: #### CBCDFC, CA, CHM7, HFP, IPB, MGO, PTPTT #### [facility] [address] [place] [address] HEPATIC FUNCTION Collected: 08/13/2018 Status: F Source: [facility] 4:10 AM [facility] REPOSITORY TYPE CODE TESTS RESULT OUT OF REFERENCE UNITS RANGE LAB ALB 3.5-5.0 g/dL Low Albumin 2.2 LAB BILD <0.3 mg/dL Bilirubin High Direct 0.8 LAB BILT <1.5 mg/dL Bilirubin Total 1.3 LAB ALP 32-126 U/L Alkaline High Phosphatase 193 LAB ALT 9-48 U/L ALT 19 LAB AST 14-40 U/L AST 26 LAB TP 6.4-8.3 g/dL Low Total Protein 5.1 Performed By: #### CBCDFC, CA, CHM7, HFP, IPB, MGO, PTPTT #### [facility] [address] [address] INORGANIC PHOSPHATE Collected: 08/13/2018 Status: F Source: [facility] 4:10 AM [facility] REPOSITORY TYPE CODE TESTS RESULT OUT OF REFERENCE UNITS RANGE LAB IP 2.2-4.6 mg/dL Inorg High Phosphate 5.2 Performed By: #### CBCDFC, CA, CHM7, HFP, IPB, MGO, PTPTT #### [facility] [address] [place] [address] [facility] [address] [place] [address] MAGNESIUM Collected: 08/13/2018 Status: F Source: [facility] 4:10 AM [facility] REPOSITORY TYPE CODE TESTS RESULT OUT OF REFERENCE UNITS RANGE LAB MG 1.6-2.6 mg/dL Magnesium 2.2 Performed By: #### CBCDFC, CA, CHM7, HFP, IPB, MGO, PTPTT #### [facility] [address] [place] [address] [facility] [address] [place] [address] PT*PTT Collected: 08/13/2018 Status: F Source: [facility] 4:10 AM [facility] REPOSITORY TYPE CODE TESTS RESULT OUT OF RANGE REFERENCE UNITS LAB PT 11.9-14.2 sec High PT 17.6 LAB INR 0.9-1.1 High INR 1.4 LAB PTT 24.0-34.3 sec High PTT 39.2 Performed By: #### CBCDFC, CA, CHM7, HFP, IPB, MGO, PTPTT #### [facility] [address] [place] [id number] [place] [address] ADENOVIRUS DNA, Collected: 08/13/2018 Status: C Source: [facility] QUANTITATIVE, PCR 4:10 AM [facility] REPOSITORY TYPE CODE TESTS RESULT OUT OF REFERENCE UNITS RANGE LAB SOUR24 ADV source Whole Blood Result Comment: CORRECTED ON 08/14 AT 2047: PREVIOUSLY REPORTED EDTA WHOLE BLOOD LAB ADTC <500 copies/mL ADENOVIRUS BY PCR <500 Result Comment: (NOTE) This test was developed and its analytical performance characteristics have been determined by [employer], [place], [place]. It has not been cleared or approved by the U.S. Food and Drug Administration. This assay has been validated pursuant to the CLIA regulations and is used for clinical purposes. This test is performed pursuant to a license agreement with [employer] Test Performed by [facility], [employer] [place], [address] [place], [place] Colin Fleming M.D., Ph.D., Director of Laboratories , [place] [id number] Reported by [facility] Performed By: #### XADVPC #### Reference lab information reported with result *POC GLUCOSE BATTERY Collected: 08/12/2018 Status: F Source: [facility] 8:07 PM [facility] REPOSITORY TYPE CODE TESTS RESULT OUT OF REFERENCE UNITS RANGE LAB GLUP 70-99 mg/dL High Glucose (poc 186 device) Result Comment: No BRAVE per RN: PATIENT TYPE LAB PCSTYP *POC Capillary SAMPLE TYPE Blood *POC GLUCOSE BATTERY Collected: 08/12/2018 Status: F Source: [facility] 5:13 PM [facility] REPOSITORY TYPE CODE TESTS RESULT OUT OF REFERENCE UNITS RANGE LAB GLUP 70-99 mg/dL High Glucose (poc 177 device) Result Comment: Notified RNread back No BRAVE per RN: PATIENT TYPE LAB PCSTYP *POC Capillary SAMPLE TYPE Blood *POC GLUCOSE BATTERY Collected: 08/12/2018 Status: F Source: [facility] 12:16 PM [facility] REPOSITORY TYPE CODE TESTS RESULT OUT OF REFERENCE UNITS RANGE LAB GLUP 70-99 mg/dL High Glucose (poc 161 device) Result Comment: No BRAVE per RN: PATIENT TYPE LAB PCSTYP *POC Capillary SAMPLE TYPE Blood *POC GLUCOSE BATTERY Collected: 08/12/2018 Status: F Source: [facility] 8:01 AM [facility] REPOSITORY TYPE CODE TESTS RESULT OUT OF REFERENCE UNITS RANGE LAB GLUP 70-99 mg/dL High Glucose (poc 107 device) Result Comment: No BRAVE per RN: PATIENT TYPE LAB PCSTYP *POC Capillary SAMPLE TYPE Blood LACTATE, BLOOD Collected: 08/12/2018 Status: F Source: [facility] 4:44 AM [facility] REPOSITORY TYPE CODE TESTS RESULT OUT OF RANGE REFERENCE UNITS LAB LACT 0.5-1.6 mmol/L Lactate, 1.0 Blood Performed By: #### LACT #### [facility] [place] [address] [place] [address] [place] [address] AMMONIA Collected: 08/12/2018 Status: F Source: [facility] 4:44 AM [facility] REPOSITORY TYPE CODE TESTS RESULT OUT OF REFERENCE UNITS RANGE LAB NH3 6-47 umol/L High Ammonia 49 Performed By: #### NH3B #### [facility] [address] [place] [id number] [place] [address] [place] [address] HEPATIC FUNCTION Collected: 08/12/2018 Status: F Source: [facility] PANEL 4:44 AM [facility] REPOSITORY TYPE CODE TESTS RESULT OUT OF REFERENCE UNITS RANGE LAB ALB 3.5-5.0 g/dL Low Albumin 2.2 LAB BILD <0.3 mg/dL Bilirubin High Direct 0.9 LAB BILT <1.5 mg/dL Bilirubin High Total 1.6 LAB ALP 32-126 U/L Alkaline High Phosphatase 184 LAB ALT 9-48 U/L ALT 20 LAB AST 14-40 U/L AST 25 LAB TP 6.4-8.3 g/dL Low Total Protein 5.1 Performed By: #### HFP #### [facility] [address] [place] [address] Observed: 08/12/2018 Status: F Source: [facility] TYPE AND CROSS 3:57 AM [facility] REPOSITORY ABO/RH(D): O POSITIVE ANTIBODY SCREEN: NEGATIVE Performed By: #### XM #### [facility] [address] [place] [address] CBC,PLATELET,DIFFERENTIAL - CCL Collected: Status: F Source: [facility] 08/12/2018 3:47 AM [facility] REPOSITORY TYPE CODE TESTS RESULT OUT OF REFERENCE UNITS RANGE LAB WBC 3.99-11.19 K/uL WBC Count 10.97 LAB RBC 3.91-5.04 M/uL RBC Count 2.65 Low LAB HGB 11.4-15.2 g/dL Hemoglobin 7.8 Low LAB HCT 34.9-44.3 % Hematocrit 24.0 Low LAB MCV 79.6-97.7 fL Mean Cell 90.6 Volume LAB MCH 25.9-33.9 pg Mean Cell 29.4 Hgb LAB MCHC 31.4-35.9 g/dL Mean Cell 32.5 Hgb Conc LAB RDW 10.8-14.9 % RBC 23.0 High Distribution LAB PLT 150-393 K/uL Platelet 111 Low Count LAB MPV 8.5-12.2 fL Mean 11.0 Platelet Volume LAB NRBC 0.0-0.2 /100 WBC NUCLEATED 0.0 RBC LAB DTYPE Electronic DIFFERENTIAL TYPE Differential LAB IGRE % IMMATURE 0.8 GRANS % LAB SEGS % NEUTROPHIL 83.8 SEGMENTED LAB LYM % LYMPHOCYTE 4.0 % LAB MON % MONOCYTE % 8.2 LAB EOS % *EOSINOPHIL 2.0 % LAB BASO % BASOPHIL % 1.2 LAB IGABS 0.00-0.08 K/uL IMMATURE 0.09 High GRANS ABSOLUTE LAB SBANS 1.64-7.28 K/uL SEGS + 9.19 High Bands,Absolute LAB ALYM 1.16-3.51 K/uL Abs Lymph 0.44 Low LAB AMONO 0.22-0.87 K/uL Abs Laurel 0.90 High LAB AEOS 0.00-0.42 K/uL Abs Eos 0.22 LAB ABASO 0.00-0.15 K/uL Abs Baso 0.13 Performed By: #### CBCDFC, CA, CHM7, HFP, IPB, MGO, PTPTT #### [facility] [address] [place] [address] [place] [address] CALCIUM Collected: 08/12/2018 Status: F Source: [facility] 3:47 [facility] REPOSITORY TYPE CODE TESTS RESULT OUT OF REFERENCE UNITS RANGE LAB CA 8.6-10.5 mg/dL Low Calcium 7.6 Performed By: #### CBCDFC, CA, CHM7, HFP, IPB, MGO, PTPTT #### [facility] [address] [place] [address] [place] [address] CHEM 7 Collected: 08/12/2018 Status: F Source: [facility] 3:47 [facility] REPOSITORY TYPE CODE TESTS RESULT OUT OF REFERENCE UNITS RANGE LAB BUN 7-22 mg/dL BUN High 45 LAB NA 133-143 mmol/L Sodium 136 LAB K 3.5-5.0 mmol/L Potassium 4.2 LAB CL 98-108 mmol/L Chloride 105 LAB CO2 22-30 mmol/L Low Carbon Dioxide 20 LAB GLUC 70-99 mg/dL Glucose High 137 LAB CREA 0.50-1.20 mg/dL High Creatinine 3.84 LAB GAP 7-17 mmol/L Anion Gap 15 LAB BC BUN/CREA Ratio 12 LAB [facility]SMC 278-305 mOsm/kg Osmolality 300 (Calc) LAB GFR >60 mL/min/1.73 Low sqM Est GFR,non 12 Estonian LAB GFRA >60 mL/min/1.73 Low sqM Est GFR, 14 Performed By: #### CBCDFC, CA, CHM7, HFP, IPB, MGO, PTPTT #### [facility] [address] [place] [id number] [place] [address] [place] [address] HEPATIC FUNCTION Collected: 08/12/2018 Status: F Source: [facility] 3:47 AM [facility] REPOSITORY TYPE CODE TESTS RESULT OUT OF REFERENCE UNITS RANGE LAB ALB 3.5-5.0 g/dL Low Albumin 2.2 LAB BILD <0.3 mg/dL Bilirubin High Direct 0.9 LAB BILT <1.5 mg/dL Bilirubin High Total 1.6 LAB ALP 32-126 U/L Alkaline High Phosphatase 195 LAB ALT 9-48 U/L ALT 20 LAB AST 14-40 U/L AST 26 LAB TP 6.4-8.3 g/dL Low Total Protein 5.2 Performed By: #### CBCDFC, CA, CHM7, HFP, IPB, MGO, PTPTT #### [facility] [address] [place] [address] [facility] [address] [place] [address] INORGANIC PHOSPHATE Collected: 08/12/2018 Status: F Source: [facility] 3:47 AM [facility] REPOSITORY TYPE CODE TESTS RESULT OUT OF REFERENCE UNITS RANGE LAB IP 2.2-4.6 mg/dL Inorg Phosphate 4.3 Performed By: #### CBCDFC, CA, CHM7, HFP, IPB, MGO, PTPTT #### [facility] [address] [place] [address] [facility] [address] [place] [address] MAGNESIUM Collected: 08/12/2018 Status: F Source: [facility] 3:47 AM [facility] REPOSITORY TYPE CODE TESTS RESULT OUT OF REFERENCE UNITS RANGE LAB MG 1.6-2.6 mg/dL Magnesium 2.2 Performed By: #### CBCDFC, CA, CHM7, HFP, IPB, MGO, PTPTT #### [facility] [address] [place] [address] [place] [address] PT*PTT Collected: 08/12/2018 Status: F Source: [facility] 3:47 AM [facility] REPOSITORY TYPE CODE TESTS RESULT OUT OF RANGE REFERENCE UNITS LAB PT 11.9-14.2 sec High PT 18.0 LAB INR 0.9-1.1 High INR 1.5 LAB PTT 24.0-34.3 sec High PTT 41.5 Performed By: #### CBCDFC, CA, CHM7, HFP, IPB, MGO, PTPTT #### [facility] [address] [place] [address] [place] [address] *POC GLUCOSE BATTERY Collected: 08/11/2018 Status: F Source: [facility] 9:59 PM [facility] REPOSITORY TYPE CODE TESTS RESULT OUT OF REFERENCE UNITS RANGE LAB GLUP 70-99 mg/dL High Glucose (poc 169 device) Result Comment: Notified RNread back No BRAVE per RN: PATIENT TYPE LAB PCSTYP *POC Capillary SAMPLE TYPE Blood *POC GLUCOSE BATTERY Collected: 08/11/2018 Status: F Source: [facility] 4:58 PM [facility] REPOSITORY TYPE CODE TESTS RESULT OUT OF REFERENCE UNITS RANGE LAB GLUP 70-99 mg/dL High Glucose (poc 192 device) Result Comment: No BRAVE per RN: PATIENT TYPE LAB PCSTYP *POC Capillary SAMPLE TYPE Blood HGB & HCT Collected: 08/11/2018 Status: F Source: [facility] 3:23 PM [facility] REPOSITORY TYPE CODE TESTS RESULT OUT OF REFERENCE UNITS RANGE LAB HGB 11.4-15.2 g/dL Low Hemoglobin 7.9 LAB HCT 34.9-44.3 % Low Hematocrit 24.2 Performed By: #### HH #### [facility] [address] [place], [place] [address] *POC GLUCOSE BATTERY Collected: 08/11/2018 Status: F Source: [facility] 12:12 PM [facility] REPOSITORY TYPE CODE TESTS RESULT OUT OF REFERENCE UNITS RANGE LAB GLUP 70-99 mg/dL High Glucose (poc 187 device) Result Comment: No BRAVE per RN: PATIENT TYPE LAB PCSTYP *POC Capillary SAMPLE TYPE Blood *POC GLUCOSE BATTERY Collected: 08/11/2018 Status: F Source: [facility] 7:45 AM [facility] REPOSITORY TYPE CODE TESTS RESULT OUT OF REFERENCE UNITS RANGE LAB GLUP 70-99 mg/dL High Glucose (poc 140 device) Result Comment: No BRAVE per RN: PATIENT TYPE LAB PCSTYP *POC Capillary SAMPLE TYPE Blood CBC,PLATELET,DIFFERENTIAL - CCL Collected: Status: F Source: [facility] 08/11/2018 4:14 AM [facility] REPOSITORY TYPE CODE TESTS RESULT OUT OF REFERENCE UNITS RANGE LAB WBC 3.99-11.19 K/uL WBC High Count 12.15 LAB RBC 3.91-5.04 M/uL Low RBC Count 2.32 LAB HGB 11.4-15.2 g/dL Low alert Hemoglobin 6.9 Result Comment: This result has been called to RN ROHIT SCHMIDT by Urmila Lopez on 08 11 2018 at 0619, and has been read back. LAB HCT 34.9-44.3 % Hematocrit 21.3 Low LAB MCV 79.6-97.7 fL Mean Cell 91.8 Volume LAB MCH 25.9-33.9 pg Mean Cell 29.7 Hgb LAB MCHC 31.4-35.9 g/dL Mean Cell 32.4 Hgb Conc LAB RDW 10.8-14.9 % RBC 24.0 High Distribution LAB PLT 150-393 K/uL Platelet 112 Low Count LAB MPV 8.5-12.2 fL Mean 10.5 Platelet Volume LAB NRBC 0.0-0.2 /100 WBC NUCLEATED 0.0 RBC LAB DTYPE Electronic DIFFERENTIAL TYPE Differential LAB IGRE % IMMATURE 0.7 GRANS % LAB SEGS % NEUTROPHIL 87.5 SEGMENTED LAB LYM % LYMPHOCYTE 3.5 % LAB MON % MONOCYTE % 6.9 LAB EOS % *EOSINOPHIL 0.7 % LAB BASO % BASOPHIL % 0.7 LAB IGABS 0.00-0.08 K/uL IMMATURE 0.08 GRANS ABSOLUTE LAB SBANS 1.64-7.28 K/uL SEGS + 10.64 High Bands,Absolute LAB ALYM 1.16-3.51 K/uL Abs Lymph 0.42 Low LAB AMONO 0.22-0.87 K/uL Abs Laurel 0.84 LAB AEOS 0.00-0.42 K/uL Abs Eos 0.09 LAB ABASO 0.00-0.15 K/uL Abs Baso 0.08 Performed By: #### CBCDFC, CA, CHM7, IPB, MGO #### [facility] [address] [place] [address] [address] [place] [address] CALCIUM Collected: 08/11/2018 Status: F Source: [facility] 4:14 [facility] REPOSITORY TYPE CODE TESTS RESULT OUT OF REFERENCE UNITS RANGE LAB CA 8.6-10.5 mg/dL Low Calcium 7.6 Performed By: #### CBCDFC, CA, CHM7, IPB, MGO #### [facility] [address] [place] [address] CHEM 7 Collected: 08/11/2018 Status: F Source: [facility] 4:14 [facility] REPOSITORY TYPE CODE TESTS RESULT OUT OF REFERENCE UNITS RANGE LAB BUN 7-22 mg/dL BUN High 44 LAB NA 133-143 mmol/L Sodium 137 LAB K 3.5-5.0 mmol/L Potassium 4.3 LAB CL 98-108 mmol/L Chloride 106 LAB CO2 22-30 mmol/L Low Carbon Dioxide 20 LAB GLUC 70-99 mg/dL Glucose High 155 LAB CREA 0.50-1.20 mg/dL High Creatinine 3.59 LAB GAP 7-17 mmol/L Anion Gap 15 LAB BC BUN/CREA Ratio 12 LAB [facility] 278-305 mOsm/kg Osmolality 302 (Calc) LAB GFR >60 mL/min/1.73 Low sqM Est GFR,non 13 Estonian LAB GFRA >60 mL/min/1.73 Low sqM Est GFR, 15 Performed By: #### CBCDFC, CA, CHM7, IPB, MGO #### [facility] [address] [place] [address] [facility] [address] [place] [address] INORGANIC PHOSPHATE Collected: 08/11/2018 Status: F Source: [facility] 4:14 AM [facility] REPOSITORY TYPE CODE TESTS RESULT OUT OF REFERENCE UNITS RANGE LAB IP 2.2-4.6 mg/dL Inorg Phosphate 4.3 Performed By: #### CBCDFC, CA, CHM7, IPB, MGO #### [facility] [address] [place], [place] [id number] [place] [address] [place] [address] MAGNESIUM Collected: 08/11/2018 Status: F Source: [facility] 4:14 AM [facility] REPOSITORY TYPE CODE TESTS RESULT OUT OF REFERENCE UNITS RANGE LAB MG 1.6-2.6 mg/dL Magnesium 2.1 Performed By: #### CBCDFC, CA, CHM7, IPB, MGO #### [facility] [address] [place] [id number] [place] [address] [place] [address] *POC GLUCOSE BATTERY Collected: 08/10/2018 Status: F Source: [facility] 9:10 PM [facility] REPOSITORY TYPE CODE TESTS RESULT OUT OF REFERENCE UNITS RANGE LAB GLUP 70-99 mg/dL High Glucose (poc 208 device) Result Comment: Notified RNread back No BRAVE per RN: PATIENT TYPE LAB PCSTYP *POC Capillary SAMPLE TYPE Blood *POC GLUCOSE BATTERY Collected: 08/10/2018 Status: F Source: [facility] 5:20 PM [facility] REPOSITORY TYPE CODE TESTS RESULT OUT OF REFERENCE UNITS RANGE LAB GLUP 70-99 mg/dL High Glucose (poc 203 device) Result Comment: No BRAVE per RN: PATIENT TYPE LAB PCSTYP *POC Capillary SAMPLE TYPE Blood QUANT MONOCLONAL PROTEIN Collected: Status: F Source: [facility] IMMUNOFIXATION,SERUM 08/10/2018 11:47 AM [facility] REPOSITORY TYPE CODE TESTS RESULT OUT OF REFERENCE UNITS RANGE LAB IGG 600-1560 mg/dL IgG 1014 LAB IGA 90-410 mg/dL IgA 310 LAB IGM 30-360 mg/dL IgM 48 LAB TPE 6.4-8.3 g/dL Total Protein Low 4.6 LAB ALBNC 3.5-5.0 g/dL ALBUMIN Low 2.0 LAB ALPH1C 0.2-0.4 g/dL ALPHA 1 High 0.6 LAB ALPH2C 0.5-1.0 g/dL ALPHA 2 0.5 LAB BETAC 0.5-1.1 g/dL BETA 0.6 LAB GAMC 0.6-1.5 g/dL Gamma 0.9 LAB ISPE SPE INTERPRETATION Alpha 1 region is increased which is most often an acute phase response. Result Comment: The albumin is decreased. This may occur in protein loss, malnutrition, liver disease, and (or) as an acute-phase reactant. LAB RB4 REVIEWED BY: Anita Ngo M.D. LAB MPRO 0 mg/dL *SERUM *MONOCLONAL NONE *PROTEIN DETECTED LAB SIMFX SERUM IMMUNOFIXATION No monoclonal protein present. LAB INTBI INTERPRETATION BY: Anita Ngo M.D. Performed By: #### QMPROP #### [facility] [place] [address] *POC GLUCOSE BATTERY Collected: 08/10/2018 Status: F Source: [facility] 11:46 AM [facility] REPOSITORY TYPE CODE TESTS RESULT OUT OF REFERENCE UNITS RANGE LAB GLUP 70-99 mg/dL High Glucose (poc 164 device) Result Comment: No BRAVE per RN: PATIENT TYPE LAB PCSTYP *POC Capillary SAMPLE TYPE Blood CK Collected: 08/10/2018 Status: F Source: [facility] 8:07 AM [facility] REPOSITORY TYPE CODE TESTS RESULT OUT OF REFERENCE UNITS RANGE LAB CK 30-184 U/L Creatine 88 Kinase Performed By: #### CKB #### [facility] [place] [address] *POC GLUCOSE BATTERY Collected: 08/10/2018 Status: F Source: [facility] 7:43 AM [facility] REPOSITORY TYPE CODE TESTS RESULT OUT OF REFERENCE UNITS RANGE LAB GLUP 70-99 mg/dL High Glucose (poc 162 device) Result Comment: No BRAVE per RN: PATIENT TYPE LAB PCSTYP *POC Capillary SAMPLE TYPE Blood CBC,PLATELET,DIFFERENTIAL - CCL Collected: Status: F Source: [facility] 08/10/2018 4:14 AM [facility] REPOSITORY TYPE CODE TESTS RESULT OUT OF REFERENCE UNITS RANGE LAB WBC 3.99-11.19 K/uL WBC Count 17.45 High LAB RBC 3.91-5.04 M/uL RBC Count 2.46 Low LAB HGB 11.4-15.2 g/dL Hemoglobin 7.3 Low LAB HCT 34.9-44.3 % Hematocrit 22.6 Low LAB MCV 79.6-97.7 fL Mean Cell 91.9 Volume LAB MCH 25.9-33.9 pg Mean Cell 29.7 Hgb LAB MCHC 31.4-35.9 g/dL Mean Cell 32.3 Hgb Conc LAB RDW 10.8-14.9 % RBC 23.9 High Distribution LAB PLT 150-393 K/uL Platelet 122 Low Count LAB MPV 8.5-12.2 fL Mean 10.7 Platelet Volume LAB NRBC 0.0-0.2 /100 WBC NUCLEATED 0.0 RBC LAB DTYPE Electronic DIFFERENTIAL TYPE Differential LAB IGRE % IMMATURE 0.8 GRANS % LAB SEGS % NEUTROPHIL 88.7 SEGMENTED LAB LYM % LYMPHOCYTE 3.2 % LAB MON % MONOCYTE % 6.2 LAB EOS % *EOSINOPHIL 0.2 % LAB BASO % BASOPHIL % 0.9 LAB IGABS 0.00-0.08 K/uL IMMATURE 0.14 High GRANS ABSOLUTE LAB SBANS 1.64-7.28 K/uL SEGS + 15.48 High Bands,Absolute LAB ALYM 1.16-3.51 K/uL Abs Lymph 0.55 Low LAB AMONO 0.22-0.87 K/uL Abs Laurel 1.08 High LAB AEOS 0.00-0.42 K/uL Abs Eos 0.04 LAB ABASO 0.00-0.15 K/uL Abs Baso 0.16 High Performed By: #### CBCDFC, CA, CHM7, HFP, IPB, MGO #### [facility] [address] [place] [address] [address] [place] [address] CALCIUM Collected: 08/10/2018 Status: F Source: [facility] 4:14 [facility] REPOSITORY TYPE CODE TESTS RESULT OUT OF REFERENCE UNITS RANGE LAB CA 8.6-10.5 mg/dL Low Calcium 7.7 Performed By: #### ISSACC, CA, CHM7, HFP, IPB, MGO #### [facility] [address] [place] [address] [facility] [address] [place] [address] CHEM 7 Collected: 08/10/2018 Status: F Source: [facility] 4:14 [facility] REPOSITORY TYPE CODE TESTS RESULT OUT OF REFERENCE UNITS RANGE LAB BUN 7-22 mg/dL BUN High 41 LAB NA 133-143 mmol/L Sodium 136 LAB K 3.5-5.0 mmol/L Potassium 4.3 LAB CL 98-108 mmol/L Chloride 105 LAB CO2 22-30 mmol/L Low Carbon Dioxide 20 LAB GLUC 70-99 mg/dL Glucose High 154 LAB CREA 0.50-1.20 mg/dL High Creatinine 3.44 LAB GAP 7-17 mmol/L Anion Gap 15 LAB BC BUN/CREA Ratio 12 LAB [facility] 278-305 mOsm/kg Osmolality 299 (Calc) LAB GFR >60 mL/min/1.73 Low sqM Est GFR,non 13 Estonian LAB GFRA >60 mL/min/1.73 Low sqM Est GFR, 16 Performed By: #### ELIJAH, CA, CHM7, HFP, IPB, MGO #### [facility] [address] [place] [address] [place] [address] HEPATIC FUNCTION Collected: 08/10/2018 Status: F Source: [facility] PANEL 4:14 [facility] REPOSITORY TYPE CODE TESTS RESULT OUT OF REFERENCE UNITS RANGE LAB ALB 3.5-5.0 g/dL Low Albumin 2.3 LAB BILD <0.3 mg/dL Bilirubin High Direct 0.8 LAB BILT <1.5 mg/dL Bilirubin High Total 1.5 LAB ALP 32-126 U/L Alkaline High Phosphatase 162 LAB ALT 9-48 U/L ALT 24 LAB AST 14-40 U/L AST 36 LAB TP 6.4-8.3 g/dL Low Total Protein 5.1 Performed By: #### CBCDFC, CA, CHM7, HFP, IPB, MGO #### [facility] [address] [place] [address] [facility] [address] [place] [address] INORGANIC PHOSPHATE Collected: 08/10/2018 Status: F Source: [facility] 4:14 AM [facility] REPOSITORY TYPE CODE TESTS RESULT OUT OF REFERENCE UNITS RANGE LAB IP 2.2-4.6 mg/dL Inorg Phosphate 3.9 Performed By: #### CBCDFC, CA, CHM7, HFP, IPB, MGO #### [facility] [address] [place] [phone] [place] [address] [place] [address] MAGNESIUM Collected: 08/10/2018 Status: F Source: [facility] 4:14 [facility] REPOSITORY TYPE CODE TESTS RESULT OUT OF REFERENCE UNITS RANGE LAB MG 1.6-2.6 mg/dL Magnesium 2.1 Performed By: #### CBCDFC, CA, CHM7, HFP, IPB, MGO #### [facility] [address] [place] [phone] [place] [address] [place] [address] Observed: 08/10/2018 Status: F Source: [facility] BLOOD:ROUTINE I 12:14 AM [facility] REPOSITORY SOURCE: BLOOD, PERIPHERAL: Right Arm RESULT: NO GROWTH DAY 5 OF 5 REPORT STATUS: 08/15/2018 FINAL Performed By: Frida Brunner##Kannan [address] [address] Blood Cultures processed at: [facility] Observed: 08/10/2018 Status: F Source: [facility] BLOOD: LINE ASSESSMENT 12:14 AM [facility] REPOSITORY SOURCE: LINE, PORT: Right Medial COMMENT: Results may be compromised due to inappropriate blood volume. The optimal blood volume is 8-10 mls per aerobic/anaerobic blood culture bottle. RESULT: NO GROWTH DAY 5 OF 5 REPORT STATUS: 08/15/2018 FINAL Performed By: #### LINE #### [address] [address] Blood Cultures processed at: [facility] *POC GLUCOSE BATTERY Collected: 08/09/2018 Status: F Source: [facility] 9:31 PM [facility] REPOSITORY TYPE CODE TESTS RESULT OUT OF REFERENCE UNITS RANGE LAB GLUP 70-99 mg/dL High Glucose (poc 186 device) Result Comment: Notified RNread back No BRAVE per RN: PATIENT TYPE LAB PCSTYP *POC Capillary SAMPLE TYPE Blood *POC GLUCOSE BATTERY Collected: 08/09/2018 Status: F Source: [facility] 4:59 PM [facility] REPOSITORY TYPE CODE TESTS RESULT OUT OF REFERENCE UNITS RANGE LAB GLUP 70-99 mg/dL High Glucose (poc 199 device) Result Comment: Notified RNread back No BRAVE per RN: PATIENT TYPE LAB PCSTYP *POC Capillary SAMPLE TYPE Blood *POC GLUCOSE BATTERY Collected: 08/09/2018 Status: F Source: [facility] 12:02 PM [facility] REPOSITORY TYPE CODE TESTS RESULT OUT OF REFERENCE UNITS RANGE LAB GLUP 70-99 mg/dL High Glucose (poc 190 device) Result Comment: Notified RNread back No BRAVE per RN: PATIENT TYPE LAB PCSTYP *POC Capillary SAMPLE TYPE Blood XR CHEST PORTABLE Observed: 08/09/2018 Status: F Source: [facility] 11:08 AM [facility] REPOSITORY EXAM: XR CHEST PORTABLE, 08/09/2018 11:00 AM COMPARISON: July 31, 2018 CLINICAL INDICATIONS: fever RELEVANT CLINICAL HISTORY: FINDINGS: (Adequate technique) Life Support Devices: Stable right port catheter Chest Wall: Stable osseous structures Jodi: Normal Mediastinum: Normal Pleural Spaces: No definite pleural effusion. No definite pneumothorax. Lungs: Progressed bilateral airspace disease Cardiac Silhouette: Stable heart size Thoracic Aorta: Atherosclerotic calcifications Pulmonary Vessels: Obscured IMPRESSION: Diffuse multifocal airspace disease is likely compatible with pneumonia. HEAD WITHOUT Observed: 08/09/2018 Status: F Source: [facility] CONTRAST 8:14 AM [facility] REPOSITORY EXAM: CT HEAD WITHOUT CONTRAST, 08/08/2018 9:16 PM COMPARISON: Head CT 06/28/2018 CLINICAL INDICATIONS: 63 years Female Confusion, acute, unexplained; RELEVANT CLINICAL HISTORY: TECHNIQUE: A series of axial computerized tomographic images are obtained from base of skull to vertex without intravenous contrast, with coronal and sagittal reformats. FINDINGS: No acute intracranial hemorrhage, large territory infarction, edema pattern or mass effect is seen. Mild periventricular white matter hypodensity is non-specific, but compatible with chronic small vessel changes. Ventricles are normal in size and configuration for age. No abnormal extracerebral collection. Calvaria and skull base appear intact. Visualized paranasal sinuses show no air-fluid levels. IMPRESSION: No acute intracranial findings. *POC GLUCOSE BATTERY Collected: 08/09/2018 Status: F Source: [facility] 7:40 AM [facility] REPOSITORY TYPE CODE TESTS RESULT OUT OF REFERENCE UNITS RANGE LAB GLUP 70-99 mg/dL High Glucose (poc 154 device) Result Comment: No BRAVE per RN: PATIENT TYPE LAB PCSTYP *POC Capillary SAMPLE TYPE Blood CBC,PLATELET,DIFFERENTIAL - CCL Collected: Status: F Source: [facility] 08/09/2018 4:13 AM [facility] REPOSITORY TYPE CODE TESTS RESULT OUT OF REFERENCE UNITS RANGE LAB WBC 3.99-11.19 K/uL WBC Count 17.30 High LAB RBC 3.91-5.04 M/uL RBC Count 2.44 Low LAB HGB 11.4-15.2 g/dL Hemoglobin 7.1 Low LAB HCT 34.9-44.3 % Hematocrit 22.2 Low LAB MCV 79.6-97.7 fL Mean Cell 91.0 Volume LAB MCH 25.9-33.9 pg Mean Cell 29.1 Hgb LAB MCHC 31.4-35.9 g/dL Mean Cell 32.0 Hgb Conc LAB RDW 10.8-14.9 % RBC 23.8 High Distribution LAB PLT 150-393 K/uL Platelet 120 Low Count LAB MPV 8.5-12.2 fL Mean 10.9 Platelet Volume LAB NRBC 0.0-0.2 /100 WBC NUCLEATED 0.0 RBC LAB DTYPE Electronic DIFFERENTIAL TYPE Differential LAB IGRE % IMMATURE 0.6 GRANS % LAB SEGS % NEUTROPHIL 90.1 SEGMENTED LAB LYM % LYMPHOCYTE 3.0 % LAB MON % MONOCYTE % 5.5 LAB EOS % *EOSINOPHIL 0.2 % LAB BASO % BASOPHIL % 0.6 LAB IGABS 0.00-0.08 K/uL IMMATURE 0.10 High GRANS ABSOLUTE LAB SBANS 1.64-7.28 K/uL SEGS + 15.60 High Bands,Absolute LAB ALYM 1.16-3.51 K/uL Abs Lymph 0.52 Low LAB AMONO 0.22-0.87 K/uL Abs Laurel 0.95 High LAB AEOS 0.00-0.42 K/uL Abs Eos <0.04 LAB ABASO 0.00-0.15 K/uL Abs Baso 0.10 Performed By: #### CBCDFC, CA, CHM7, IPB, IRBC, MGO #### [facility] [address] [place] [address] [address] CALCIUM Collected: 08/09/2018 Status: F Source: [facility] 4:13 [facility] REPOSITORY TYPE CODE TESTS RESULT OUT OF REFERENCE UNITS RANGE LAB CA 8.6-10.5 mg/dL Low Calcium 7.8 Performed By: #### CBCDFC, CA, CHM7, IPB, IRBC, MGO #### [facility] [address] [place] [address] CHEM 7 Collected: 08/09/2018 Status: F Source: [facility] 4:13 [facility] REPOSITORY TYPE CODE TESTS RESULT OUT OF REFERENCE UNITS RANGE LAB BUN 7-22 mg/dL BUN High 40 LAB NA 133-143 mmol/L Sodium 137 LAB K 3.5-5.0 mmol/L Potassium 4.3 LAB CL 98-108 mmol/L Chloride 106 LAB CO2 22-30 mmol/L Low Carbon Dioxide 21 LAB GLUC 70-99 mg/dL Glucose High 160 LAB CREA 0.50-1.20 mg/dL High Creatinine 3.44 LAB GAP 7-17 mmol/L Anion Gap 14 LAB BC BUN/CREA Ratio 12 LAB [facility] 278-305 mOsm/kg Osmolality 301 (Calc) LAB GFR >60 mL/min/1.73 Low sqM Est GFR,non 13 Estonian LAB GFRA >60 mL/min/1.73 Low sqM Est GFR, 16 Performed By: #### CBCDFC, CA, CHM7, IPB, IRBC, MGO #### [facility] [address] [place] [address] [facility] [address] [place] [address] INORGANIC PHOSPHATE Collected: 08/09/2018 Status: F Source: [facility] 4:13 AM [facility] REPOSITORY TYPE CODE TESTS RESULT OUT OF REFERENCE UNITS RANGE LAB IP 2.2-4.6 mg/dL Inorg Phosphate 4.1 Performed By: #### CBCDFC, CA, CHM7, IPB, IRBC, MGO #### [facility] [address] [place] [address] [place] [address] IRON*TIBC (TRANSFERRIN) Collected: 08/09/2018 Status: F Source: [facility] 4:13 AM [facility] REPOSITORY TYPE CODE TESTS RESULT OUT OF REFERENCE UNITS RANGE LAB IRON 40-174 mcg/dL Low Iron 21 LAB TIBC 298-596 mcg/dL Low Total Iron Binding Capacity 271 LAB IRONS 20-55 % Low *Iron*Saturation 8 LAB MORALES 200-400 mg/dL Low Transferrin 182 Performed By: #### CBCDFC, CA, CHM7, IPB, IRBC, MGO #### [facility] [address] [place] [address] [address] MAGNESIUM Collected: 08/09/2018 Status: F Source: [facility] 4:13 AM [facility] REPOSITORY TYPE CODE TESTS RESULT OUT OF REFERENCE UNITS RANGE LAB MG 1.6-2.6 mg/dL Magnesium 2.1 Performed By: #### CBCDFC, CA, CHM7, IPB, IRBC, MGO #### [facility] [address] [place] [address] [address] Observed: 08/09/2018 Status: F Source: [facility] TYPE AND CROSS 4:13 AM [facility] REPOSITORY ABO/RH(D): O POSITIVE ANTIBODY SCREEN: NEGATIVE UNIT NUMBER: [id number] BLOOD COMPONENT TYPE: Red Cell,Leukoreduced,[id number] STATUS OF UNIT: Issued, Final TRANSFUSION STATUS: OK TO TRANSFUSE CROSSMATCH RESULT: Electronically Compatible Performed By: #### XM #### [facility] [address] [place], [place] [id number] [facility] [address] [place], [place] [address] Observed: 08/09/2018 Status: F Source: [facility] BLOOD: LINE ASSESSMENT 4:13 AM [facility] REPOSITORY SOURCE: LINE, PORT: Medial MICROSCOPIC: GRAM POSITIVE COCCI IN GROUPS ---> RVW Called to and read back by TIM MEJIA RN ([id number]) AT 1234 ON 08/10/18 STAPHYLOCOCCUS EPIDERMIDIS DNA DETECTED METHICILLIN RESISTANCE (mecA) DETECTED (NOTE) CULTURE IS NECESSARY TO CONFIRM SUSCEPTIBILITIES, IDENTIFY ORGANISMS NOT DETECTED BY THIS TEST, AND FOR MIXED INFECTIONS. NEGATIVE RESULTS MAY BE DUE TO A LOW CONCENTRATION OF ORGANISM(S) OR BY OTHER ORGANISMS NOT SCREENED FOR BY THIS TEST. A NOT DETECTED RESULT FOR A RESISTANCE MARKER DOES NOT INDICATE SUSCEPTIBILITY SINCE RESISTANCE MAY OCCUR BY ANOTHER MECHANISM. RESULTS SHOULD BE USED IN CONJUNCTION WITH OTHER CLINICAL AND LABORATORY FINDINGS. This test was performed using a multiplex gram-positive blood culture nucleic acid probe method for the detection of: Staphylococcus aureus, S. e pidermidis, S. lugdunensis, other Staphylococcus species, Enterococcus faecalis, Enterococcus faecium, Streptococcus agalactiae, Streptococcus anginosus group, S. pneumoniae, S. pyogenes, other Streptoc occus species, mecA (methicillin resistance), Aj/B (vancomycin resistance). RESULT: STAPHYLOCOCCUS EPIDERMIDIS: METHICILLIN RESISTANT ---> RVW (NOTE) The recovery of this organism(s) from a single blood culture most likely represents contamination during collection. Susceptibility testing will not be performed. Please evaluate carefully prio r to initiation or continuation of microbial therapy. If further workup is needed, please contact the Blood culture area at [phone] REPORT STATUS: 08/14/2018 FINAL Performed By: #### LINE #### [facility] [address] [place] [address] Blood Cultures processed at: [facility] FERRITIN Collected: 08/09/2018 Status: F Source: [facility] 3:45 AM [facility] REPOSITORY TYPE CODE TESTS RESULT OUT OF RANGE REFERENCE UNITS LAB FERI 10-291 ng/mL *Ferritin 222 Performed By: #### FERIB #### [facility] [id number] [place] [address] Observed: 08/09/2018 Status: F Source: [facility] BLOOD:ROUTINE I 3:42 AM [facility] REPOSITORY SOURCE: BLOOD, PERIPHERAL: Site not specified RESULT: NO GROWTH DAY 5 OF 5 REPORT STATUS: 08/14/2018 FINAL Performed By: #### FAST #### [address] [address] Blood Cultures processed at: [facility] (NA,K,CL), URINE Collected: 08/08/2018 Status: F Source: [facility] 11:35 PM [facility] REPOSITORY TYPE CODE TESTS RESULT OUT OF REFERENCE UNITS RANGE LAB NAU1 mmol/L URINE SODIUM 73 Result Comment: The reference range has not been established for random urine specimens. The test result should be integrated into the clinical context for interpretation. LAB KU1 mmol/L URINE POTASSIUM 26.3 Result Comment: The reference range has not been established for random urine specimens. The test result should be integrated into the clinical context for interpretation. LAB CLU1 mmol/L URINE CHLORIDE 60 Result Comment: The reference range has not been established for random urine specimens. The test result should be integrated into the clinical context for interpretation. Performed By: #### ULYTR, UPCR #### [facility] [address] [address] URINE PROTEIN/CREAT Collected: 08/08/2018 Status: F Source: [facility]OM 11:35 PM [facility] REPOSITORY TYPE CODE TESTS RESULT OUT OF RANGE REFERENCE UNITS LAB CREU1 mg/dL 55.00 Creatinine, urine mg/dL LAB PROT3 mg/dL PROTEIN, 91 urine mg/dL LAB PRCR2 mg prot/mg crea 1.655 PROT/CREAT RATIO Performed By: #### ULYTR, UPCR #### [facility] [address] [place] [address] [facility] [address] [place] [address] URINE SCREEN WITH Collected: 08/08/2018 Status: F Source: [facility] REFLEX TO MICROSCOPIC 11:35 PM [facility] REPOSITORY TYPE CODE TESTS RESULT OUT OF RANGE REFERENCE UNITS LAB [employer]UTION MANAGER CONSULTANT Clear Appearance Urine Clear LAB SPGR 1.001-1.035 Specific [place] urine 1.012 LAB UGL Negative mg/dL Glucose Urine Negative LAB UKET Negative Ketones Urine Negative LAB UBLD Negative Blood Urine Abnormal Large LAB UPH 5.0-7.0 pH Urine 5.5 LAB UPR Negative mg/dL Protein Abnormal Urine 30 LAB UNTR Negative Nitrites Urine Negative LAB ULEU Negative Leukocyte Abnormal Esterase Small LAB COLR Yellow Color Yellow LAB UURO <2.0 EU/dL Urobilinogen 0.2 urine Performed By: #### UASR, UMICR #### [facility] [address] [place] [phone] [place] [address] [place] [address] URINE MICROSCOPIC Collected: 08/08/2018 Status: F Source: [facility] 11:35 PM [facility] REPOSITORY TYPE CODE TESTS RESULT OUT OF RANGE REFERENCE UNITS LAB UWBC 0-5 /HPF WBC Abnormal Urine >20 LAB URBC 0-2 /HPF RBC Abnormal Urine >20 LAB BACT Absent Bacteria Absent LAB UCOM COMMENT URINE None LAB EPIS /HPF Squamous Epithelial 2+ Performed By: #### UASR, UMICR #### [facility] [address] [place] [phone] [place] [address] [place] [id number] *POC GLUCOSE BATTERY Collected: 08/08/2018 Status: F Source: [facility] 9:52 PM [facility] REPOSITORY TYPE CODE TESTS RESULT OUT OF REFERENCE UNITS RANGE LAB GLUP 70-99 mg/dL High Glucose (poc 181 device) Result Comment: Notified RNread back No BRAVE per RN: PATIENT TYPE LAB PCSTYP *POC Capillary SAMPLE TYPE Blood *POC GLUCOSE BATTERY Collected: 08/08/2018 Status: F Source: [facility] 5:41 PM [facility] REPOSITORY TYPE CODE TESTS RESULT OUT OF REFERENCE UNITS RANGE LAB GLUP 70-99 mg/dL High Glucose (poc 228 device) Result Comment: No BRAVE per RN: PATIENT TYPE LAB PCSTYP *POC Capillary SAMPLE TYPE Blood *POC GLUCOSE BATTERY Collected: 08/08/2018 Status: F Source: [facility] 11:46 AM [facility] REPOSITORY TYPE CODE TESTS RESULT OUT OF REFERENCE UNITS RANGE LAB GLUP 70-99 mg/dL High Glucose (poc 179 device) Result Comment: No BRAVE per RN: PATIENT TYPE LAB PCSTYP *POC Capillary SAMPLE TYPE Blood *POC GLUCOSE BATTERY Collected: 08/08/2018 Status: F Source: [facility] 7:41 AM [facility] REPOSITORY TYPE CODE TESTS RESULT OUT OF REFERENCE UNITS RANGE LAB GLUP 70-99 mg/dL High Glucose (poc 131 device) Result Comment: No BRAVE per RN: PATIENT TYPE LAB PCSTYP *POC Capillary SAMPLE TYPE Blood CBC,PLATELET,DIFFERENTIAL - CCL Collected: Status: F Source: [facility] 08/08/2018 3:28 AM [facility] REPOSITORY TYPE CODE TESTS RESULT OUT OF REFERENCE UNITS RANGE LAB WBC 3.99-11.19 K/uL WBC Count 14.69 High LAB RBC 3.91-5.04 M/uL RBC Count 2.67 Low LAB HGB 11.4-15.2 g/dL Hemoglobin 7.8 Low LAB HCT 34.9-44.3 % Hematocrit 24.3 Low LAB MCV 79.6-97.7 fL Mean Cell 91.0 Volume LAB MCH 25.9-33.9 pg Mean Cell 29.2 Hgb LAB MCHC 31.4-35.9 g/dL Mean Cell 32.1 Hgb Conc LAB RDW 10.8-14.9 % RBC 24.2 High Distribution LAB PLT 150-393 K/uL Platelet 126 Low Count LAB MPV 8.5-12.2 fL Mean 10.6 Platelet Volume LAB NRBC 0.0-0.2 /100 WBC NUCLEATED 0.0 RBC LAB DTYPE Electronic DIFFERENTIAL TYPE Differential LAB IGRE % IMMATURE 0.7 GRANS % LAB SEGS % NEUTROPHIL 88.2 SEGMENTED LAB LYM % LYMPHOCYTE 4.5 % LAB MON % MONOCYTE % 5.7 LAB EOS % *EOSINOPHIL 0.3 % LAB BASO % BASOPHIL % 0.6 LAB IGABS 0.00-0.08 K/uL IMMATURE 0.10 High GRANS ABSOLUTE LAB SBANS 1.64-7.28 K/uL SEGS + 12.97 High Bands,Absolute LAB ALYM 1.16-3.51 K/uL Abs Lymph 0.66 Low LAB AMONO 0.22-0.87 K/uL Abs Laurel 0.83 LAB AEOS 0.00-0.42 K/uL Abs Eos 0.04 LAB ABASO 0.00-0.15 K/uL Abs Baso 0.09 Performed By: #### CBCDFC, PTPTT, ALB, CHM7, CA, CKB, IPB, MGO #### [facility] [address] [place] [address] [place] [address] PT*PTT Collected: 08/08/2018 Status: F Source: [facility] [address] [place] [address] REPOSITORY TYPE CODE TESTS RESULT OUT OF RANGE REFERENCE UNITS LAB PT 11.9-14.2 sec High PT 18.5 LAB INR 0.9-1.1 High INR 1.5 LAB PTT 24.0-34.3 sec High PTT 35.7 Performed By: #### CBCDFC, PTPTT, ALB, CHM7, CA, CKB, IPB, MGO #### [facility] [address] [place] [address] [place] [address] ALBUMIN Collected: 08/08/2018 Status: F Source: [facility] [address] [place] [address] REPOSITORY TYPE CODE TESTS RESULT OUT OF REFERENCE UNITS RANGE LAB ALB 3.5-5.0 g/dL Low Albumin 2.5 Performed By: #### CBCDFC, PTPTT, ALB, CHM7, CA, CKB, IPB, MGO #### [facility] [address] [place] [id number] [place] [address] [place] [address] CHEM 7 Collected: 08/08/2018 Status: F Source: [facility] [address] [place] [address] REPOSITORY TYPE CODE TESTS RESULT OUT OF REFERENCE UNITS RANGE LAB BUN 7-22 mg/dL BUN High 39 LAB NA 133-143 mmol/L Sodium 140 LAB K 3.5-5.0 mmol/L Potassium 4.4 LAB CL 98-108 mmol/L Chloride 107 LAB CO2 22-30 mmol/L Low Carbon Dioxide 21 LAB GLUC 70-99 mg/dL Glucose High 136 LAB CREA 0.50-1.20 mg/dL High Creatinine 3.03 LAB GAP 7-17 mmol/L Anion Gap 16 LAB BC BUN/CREA Ratio 13 LAB [facility] 278-305 mOsm/kg Osmolality 305 (Calc) LAB GFR >60 mL/min/1.73 Low sqM Est GFR,non 16 Estonian LAB GFRA >60 mL/min/1.73 Low sqM Est GFR, 19 Performed By: #### CBCDFC, PTPTT, ALB, CHM7, CA, CKB, IPB, MGO #### [facility] [address] [place] [address] [place] [address] CALCIUM Collected: 08/08/2018 Status: F Source: [facility] 3:28 [facility] REPOSITORY TYPE CODE TESTS RESULT OUT OF REFERENCE UNITS RANGE LAB CA 8.6-10.5 mg/dL Low Calcium 8.0 Performed By: #### CBCDFC, PTPTT, ALB, CHM7, CA, CKB, IPB, MGO #### [facility] [address] [place] [address] [place] [address] CK Collected: 08/08/2018 Status: F Source: [facility] 3:28 [facility] REPOSITORY TYPE CODE TESTS RESULT OUT OF REFERENCE UNITS RANGE LAB CK 30-184 U/L High alert Creatine 890 Kinase Performed By: #### CBCDFC, PTPTT, ALB, CHM7, CA, CKB, IPB, MGO #### [facility] [address] [place] [address] [place] [address] [address] INORGANIC PHOSPHATE Collected: 08/08/2018 Status: F Source: [facility] 3:28 [facility] REPOSITORY TYPE CODE TESTS RESULT OUT OF REFERENCE UNITS RANGE LAB IP 2.2-4.6 mg/dL Inorg Phosphate 4.5 Performed By: #### CBCDFC, PTPTT, ALB, CHM7, CA, CKB, IPB, MGO #### [facility] [address] [place] [address] [facility] [address] [place] [address] MAGNESIUM Collected: 08/08/2018 Status: F Source: [facility] 3:28 AM [facility] REPOSITORY TYPE CODE TESTS RESULT OUT OF REFERENCE UNITS RANGE LAB MG 1.6-2.6 mg/dL Magnesium 2.2 Performed By: #### CBCDFC, PTPTT, ALB, CHM7, CA, CKB, IPB, MGO #### [facility] [address] [place] [id number] [place] [address] [place] [address] LACTATE, BLOOD Collected: 08/08/2018 Status: F Source: [facility] 12:13 AM [facility] REPOSITORY TYPE CODE TESTS RESULT OUT OF RANGE REFERENCE UNITS LAB LACT 0.5-1.6 mmol/L Lactate, 1.0 Blood Performed By: #### LACT #### [facility] [address] [place] [id number] [place] [address] [place] [address] CHEM 6 Collected: 08/08/2018 Status: F Source: [facility] 12:02 AM [facility] REPOSITORY TYPE CODE TESTS RESULT OUT OF REFERENCE UNITS RANGE LAB BUN 7-22 mg/dL BUN High 38 LAB NA 133-143 mmol/L Sodium 140 LAB K 3.5-5.0 mmol/L Potassium 4.4 LAB CL 98-108 mmol/L Chloride 107 LAB CO2 22-30 mmol/L Carbon Dioxide 22 LAB CREA 0.50-1.20 mg/dL High Creatinine 3.02 LAB GAP 7-17 mmol/L Anion Gap 15 LAB BC BUN/CREA Ratio 13 LAB GFR >60 mL/min/1.73 Low sqM Est GFR,non 16 Estonian LAB GFRA >60 mL/min/1.73 Low sqM Est GFR, 19 Performed By: #### CHM6 #### [facility] [address] [place] [phone] [place] [address] [place] [address] *POC GLUCOSE BATTERY Collected: 08/07/2018 Status: F Source: [facility] 9:20 PM [facility] REPOSITORY TYPE CODE TESTS RESULT OUT OF REFERENCE UNITS RANGE LAB GLUP 70-99 mg/dL High Glucose (poc 189 device) Result Comment: Notified RNread back No BRAVE per RN: PATIENT TYPE LAB PCSTYP *POC Capillary SAMPLE TYPE Blood OSMOLALITY, URINE - Collected: 08/07/2018 Status: F Source: [facility] RANDOM 8:20 PM [facility] REPOSITORY TYPE CODE TESTS RESULT OUT OF RANGE REFERENCE UNITS LAB UOSM 300-900 mOsm/kg Low Urine 282 Osmolality, 24 hr Performed By: #### UOSMR, UCLR, UCRER, UKR, UNAR #### [facility] [id number] [place] [address] [address] CHLORIDE, URINE - Collected: 08/07/2018 Status: F Source: [facility] 8:20 PM [facility] REPOSITORY TYPE CODE TESTS RESULT OUT OF REFERENCE UNITS RANGE LAB CLU1 mmol/L URINE CHLORIDE 48 Result Comment: The reference range has not been established for random urine specimens. The test result should be integrated into the clinical context for interpretation. Performed By: #### UOSMR, UCLR, UCRER, UKR, UNAR #### [place] [address] [address] CREATININE, URINE - Collected: 08/07/2018 Status: F Source: [facility] 8:20 PM [facility] REPOSITORY TYPE CODE TESTS RESULT OUT OF RANGE REFERENCE UNITS LAB CREU1 mg/dL 67.00 Creatinine, urine mg/dL Result Comment: The reference range has not been established for random urine specimens. The test result should be integrated into the clinical context for interpretation. Performed By: #### UOSMR, UCLR, UCRER, UKR, UNAR #### [facility] [id number] [place] [address] [address] POTASSIUM, URINE - Collected: 08/07/2018 Status: F Source: [facility] 8:20 PM [facility] REPOSITORY TYPE CODE TESTS RESULT OUT OF REFERENCE UNITS RANGE LAB KU1 mmol/L URINE POTASSIUM 28.6 Result Comment: The reference range has not been established for random urine specimens. The test result should be integrated into the clinical context for interpretation. Performed By: #### UOSMR, UCLR, UCRER, UKR, UNAR #### [facility] [address] [place] [address] SODIUM, URINE - Collected: 08/07/2018 Status: F Source: [facility] 8:20 PM [facility] REPOSITORY TYPE CODE TESTS RESULT OUT OF REFERENCE UNITS RANGE LAB NAU1 mmol/L URINE SODIUM 59 Result Comment: The reference range has not been established for random urine specimens. The test result should be integrated into the clinical context for interpretation. Performed By: #### UOSMR, MALAR, UCRER, UKR, UNAR #### [facility] [place] [address] URINALYSIS Collected: 08/07/2018 Status: F Source: [facility] 8:20 PM [facility] REPOSITORY TYPE CODE TESTS RESULT OUT OF RANGE REFERENCE UNITS LAB SAP SOLUTION MANAGER CONSULTANT Clear Appearance Abnormal Urine Cloudy LAB SPGR 1.001-1.035 Specific [place] urine 1.012 LAB UGL Negative mg/dL Glucose Urine Negative LAB UKET Negative Ketones Urine Negative LAB UBLD Negative Blood Urine Abnormal Large LAB UPH 5.0-7.0 pH Urine 5.5 LAB UPR Negative mg/dL Protein Abnormal Urine 100 LAB UNTR Negative Nitrites Urine Negative LAB ULEU Negative Leukocyte Abnormal Esterase Large LAB COLR Yellow Color Yellow LAB UURO <2.0 EU/dL Urobilinogen 0.2 urine LAB UWBC 0-5 /HPF WBC Urine Abnormal >20 LAB URBC 0-2 /HPF RBC Urine Abnormal >20 LAB BACT Absent Bacteria Absent LAB UCOM COMMENT URINE None LAB EPIS /HPF Squamous Epithelial 1+ Performed By: #### URIN #### [facility] [place] [address] Observed: 08/07/2018 Status: F Source: [facility] URINE CULTURE -UHE 7:52 PM [facility] REPOSITORY SOURCE: URINE-CLEAN CATCH: RESULT: NO GROWTH REPORT STATUS: 08/09/2018 FINAL Performed By: #### UR #### [place] [address] Blood Cultures processed at: [facility] RENAL Observed: 08/07/2018 Status: F Source: [facility] 6:29 PM [facility] REPOSITORY EXAM: RENAL, 08/07/2018 14:17 PM CLINICAL INDICATIONS: Worsening acute kidney injury, developing oliguria. COMPARISON: Renal ultrasound dated 07/03/2018. TECHNIQUE: Multiple longitudinal and transverse real-time grayscale images of both kidneys were obtained. Color-flow Doppler images were also obtained. FINDINGS: Right Kidney: The right kidney measures 10.8 cm in length, which is within normal limits for the patient's age. Renal cortical thickness and echogenicity are within normal limits. Renal Pelvis: There is no hydronephrosis. No obvious renal calculi. Left Kidney: The left kidney measures 11.6 cm in length, which is within normal limits for the patient's age. Renal cortical thickness and echogenicity are within normal limits. Renal Pelvis: There is no hydronephrosis. No obvious renal calculi. Bladder: Urinary bladder is underdistended with limited visualization. Spleen is significantly enlarged measuring at least 22 cm in craniocaudal dimension. IMPRESSION: 1. Normal sonographic appearance of kidneys without hydronephrosis. 2. Significant splenomegaly. I personally viewed and interpreted these images and I have reviewed and approved this report. *POC GLUCOSE BATTERY Collected: 08/07/2018 Status: F Source: [facility] 5:56 PM [facility] REPOSITORY TYPE CODE TESTS RESULT OUT OF REFERENCE UNITS RANGE LAB GLUP 70-99 mg/dL High Glucose (poc 202 device) Result Comment: No BRAVE per RN: PATIENT TYPE LAB PCSTYP *POC Capillary SAMPLE TYPE Blood LACTATE, BLOOD Collected: 08/07/2018 Status: F Source: [facility] 5:37 PM [facility] REPOSITORY TYPE CODE TESTS RESULT OUT OF RANGE REFERENCE UNITS LAB LACT 0.5-1.6 mmol/L Lactate, 1.3 Blood Performed By: #### LACT #### [facility] [address] [place] [address] CHEM 7 Collected: 08/07/2018 Status: F Source: [facility] 5:37 PM [facility] REPOSITORY TYPE CODE TESTS RESULT OUT OF REFERENCE UNITS RANGE LAB BUN 7-22 mg/dL BUN High 39 LAB NA 133-143 mmol/L Sodium 138 LAB K 3.5-5.0 mmol/L Potassium 4.6 LAB CL 98-108 mmol/L Chloride 107 LAB CO2 22-30 mmol/L Carbon Dioxide 24 LAB GLUC 70-99 mg/dL Glucose High 209 LAB CREA 0.50-1.20 mg/dL High Creatinine 3.07 LAB GAP 7-17 mmol/L Anion Gap 12 LAB BC BUN/CREA Ratio 13 LAB [facility] 278-305 mOsm/kg High Osmolality 307 (Calc) LAB GFR >60 mL/min/1.73 Low sqM Est GFR,non 15 Estonian LAB GFRA >60 mL/min/1.73 Low sqM Est GFR, 19 Performed By: #### CHM7 #### [facility] [address] [place] [address] AMMONIA Collected: 08/07/2018 Status: F Source: [facility] 5:37 PM [facility] REPOSITORY TYPE CODE TESTS RESULT OUT OF REFERENCE UNITS RANGE LAB NH3 6-47 umol/L Ammonia 37 Performed By: #### NH3B #### [facility] [address] [place] [address] [place] [address] *POC GLUCOSE BATTERY Collected: 08/07/2018 Status: F Source: [facility] 5:23 PM [facility] REPOSITORY TYPE CODE TESTS RESULT OUT OF REFERENCE UNITS RANGE LAB GLUP 70-99 mg/dL High Glucose (poc 190 device) Result Comment: No BRAVE per RN: PATIENT TYPE LAB PCSTYP *POC Capillary SAMPLE TYPE Blood LYTES (NA,K,CL,CREA),URINE,RANDOM Collected: Status: F Source: [place] 08/07/2018 3:13 PM [facility] REPOSITORY TYPE CODE TESTS RESULT OUT OF REFERENCE UNITS RANGE LAB NAU1 mmol/L URINE SODIUM 58 LAB KU1 mmol/L URINE POTASSIUM 32.9 LAB CLU1 mmol/L URINE CHLORIDE 44 LAB CREU1 mg/dL Creatinine, 95.00 urine mg/dL Performed By: #### ULYCR #### [facility] [address] [place] [address] [place] [address] *POC GLUCOSE BATTERY Collected: 08/07/2018 Status: F Source: [facility] 9:58 AM [facility] REPOSITORY TYPE CODE TESTS RESULT OUT OF REFERENCE UNITS RANGE LAB GLUP 70-99 mg/dL High Glucose (poc 158 device) Result Comment: No BRAVE per RN: PATIENT TYPE LAB PCSTYP *POC Capillary SAMPLE TYPE Blood *POC GLUCOSE BATTERY Collected: 08/07/2018 Status: F Source: [facility] 7:29 AM [facility] REPOSITORY TYPE CODE TESTS RESULT OUT OF REFERENCE UNITS RANGE LAB GLUP 70-99 mg/dL High Glucose (poc 149 device) Result Comment: No BRAVE per RN: PATIENT TYPE LAB PCSTYP *POC Capillary SAMPLE TYPE Blood *POC GLUCOSE BATTERY Collected: 08/07/2018 Status: F Source: [facility] 7:15 AM [facility] REPOSITORY TYPE CODE TESTS RESULT OUT OF REFERENCE UNITS RANGE LAB GLUP 70-99 mg/dL High Glucose (poc 142 device) Result Comment: No BRAVE per RN: PATIENT TYPE LAB PCSTYP *POC Capillary SAMPLE TYPE Blood CBC,PLATELET,DIFFERENTIAL - CCL Collected: Status: F Source: [facility] 08/07/2018 4:46 AM [facility] REPOSITORY TYPE CODE TESTS RESULT OUT OF REFERENCE UNITS RANGE LAB WBC 3.99-11.19 K/uL WBC Count 12.39 High LAB RBC 3.91-5.04 M/uL RBC Count 2.58 Low LAB HGB 11.4-15.2 g/dL Hemoglobin 7.5 Low LAB HCT 34.9-44.3 % Hematocrit 23.6 Low LAB MCV 79.6-97.7 fL Mean Cell 91.5 Volume LAB MCH 25.9-33.9 pg Mean Cell 29.1 Hgb LAB MCHC 31.4-35.9 g/dL Mean Cell 31.8 Hgb Conc LAB RDW 10.8-14.9 % RBC 23.7 High Distribution LAB PLT 150-393 K/uL Platelet 116 Low Count LAB MPV 8.5-12.2 fL Mean 10.2 Platelet Volume LAB NRBC 0.0-0.2 /100 WBC NUCLEATED 0.0 RBC LAB DTYPE Electronic DIFFERENTIAL TYPE Differential LAB IGRE % IMMATURE 0.9 GRANS % LAB SEGS % NEUTROPHIL 86.2 SEGMENTED LAB LYM % LYMPHOCYTE 4.8 % LAB MON % MONOCYTE % 7.0 LAB EOS % *EOSINOPHIL 0.3 % LAB BASO % BASOPHIL % 0.8 LAB IGABS 0.00-0.08 K/uL IMMATURE 0.11 High GRANS ABSOLUTE LAB SBANS 1.64-7.28 K/uL SEGS + 10.68 High Bands,Absolute LAB ALYM 1.16-3.51 K/uL Abs Lymph 0.59 Low LAB AMONO 0.22-0.87 K/uL Abs Laurel 0.87 LAB AEOS 0.00-0.42 K/uL Abs Eos 0.04 LAB ABASO 0.00-0.15 K/uL Abs Baso 0.10 Performed By: #### CBCDFC, CA, CHM7, HFP, IPB, MGO #### [place] [address] [facility] [address] [place] [address] CALCIUM Collected: 08/07/2018 Status: F Source: [facility] 4:46 AM [facility] REPOSITORY TYPE CODE TESTS RESULT OUT OF REFERENCE UNITS RANGE LAB CA 8.6-10.5 mg/dL Low Calcium 8.0 Performed By: #### CBCDFC, CA, CHM7, HFP, IPB, MGO #### [facility] [address] [place] [address] [facility] [address] [place] [address] CHEM 7 Collected: 08/07/2018 Status: F Source: [facility] 4:46 AM [facility] REPOSITORY TYPE CODE TESTS RESULT OUT OF REFERENCE UNITS RANGE LAB BUN 7-22 mg/dL BUN High 36 LAB NA 133-143 mmol/L Sodium 138 LAB K 3.5-5.0 mmol/L Potassium 4.5 LAB CL 98-108 mmol/L Chloride 107 LAB CO2 22-30 mmol/L Carbon Dioxide 23 LAB GLUC 70-99 mg/dL Glucose High 137 LAB CREA 0.50-1.20 mg/dL High Creatinine 2.69 LAB GAP 7-17 mmol/L Anion Gap 13 LAB BC BUN/CREA Ratio 13 LAB [facility] 278-305 mOsm/kg Osmolality 301 (Calc) LAB GFR >60 mL/min/1.73 Low sqM Est GFR,non 18 Estonian LAB GFRA >60 mL/min/1.73 Low sqM Est GFR, 22 Performed By: #### CBCDFC, CA, CHM7, HFP, IPB, MGO #### [facility] [address] [place] [address] [facility] [address] [place] [address] HEPATIC FUNCTION Collected: 08/07/2018 Status: F Source: [facility] 4:46 AM [facility] REPOSITORY TYPE CODE TESTS RESULT OUT OF REFERENCE UNITS RANGE LAB ALB 3.5-5.0 g/dL Low Albumin 2.3 LAB BILD <0.3 mg/dL Bilirubin High Direct 0.7 LAB BILT <1.5 mg/dL Bilirubin High Total 1.5 LAB ALP 32-126 U/L Alkaline High Phosphatase 163 LAB ALT 9-48 U/L ALT 16 LAB AST 14-40 U/L AST High 59 LAB TP 6.4-8.3 g/dL Low Total Protein 5.0 Performed By: #### CBCDFC, CA, CHM7, HFP, IPB, MGO #### [facility] [address] [place] [id number] [place] [address] [place] [address] INORGANIC PHOSPHATE Collected: 08/07/2018 Status: F Source: [facility] 4:46 AM [facility] REPOSITORY TYPE CODE TESTS RESULT OUT OF REFERENCE UNITS RANGE LAB IP 2.2-4.6 mg/dL Inorg Phosphate 4.3 Performed By: #### BOOMDFC, CA, CHM7, HFP, IPB, MGO #### [facility] [address] [place] [address] [address] [place] [address] MAGNESIUM Collected: 08/07/2018 Status: F Source: [facility] 4:46 AM [facility] REPOSITORY TYPE CODE TESTS RESULT OUT OF REFERENCE UNITS RANGE LAB MG 1.6-2.6 mg/dL Magnesium 2.1 Performed By: #### CBCDFC, CA, CHM7, HFP, IPB, MGO #### [facility] [address] [place] [address] [place] [address] Observed: 08/07/2018 Status: F Source: [facility] URINE CULTURE -UHE 2:51 AM [facility] REPOSITORY SOURCE: URINE-CLEAN CATCH: RESULT: NO GROWTH REPORT STATUS: 08/08/2018 FINAL Performed By: #### UR #### [address] [address] Blood Cultures processed at: [facility] *POC GLUCOSE BATTERY Collected: 08/06/2018 Status: F Source: [facility] 9:12 PM [facility] REPOSITORY TYPE CODE TESTS RESULT OUT OF REFERENCE UNITS RANGE LAB GLUP 70-99 mg/dL High Glucose (poc 157 device) Result Comment: Notified RNread back No BRAVE per RN: PATIENT TYPE LAB PCSTYP *POC Capillary SAMPLE TYPE Blood *POC GLUCOSE BATTERY Collected: 08/06/2018 Status: F Source: [facility] 5:48 PM [facility] REPOSITORY TYPE CODE TESTS RESULT OUT OF REFERENCE UNITS RANGE LAB GLUP 70-99 mg/dL High Glucose (poc 172 device) Result Comment: No BRAVE per RN: PATIENT TYPE LAB PCSTYP *POC Capillary SAMPLE TYPE Blood Observed: 08/06/2018 Status: F Source: [facility] BLOOD:ROUTINE I 3:35 PM [facility] REPOSITORY SOURCE: BLOOD, PERIPHERAL: Site not specified RESULT: NO GROWTH DAY OF 5 REPORT STATUS: 08/11/2018 FINAL Performed By: #### JARAD #### [address] [address] Blood Cultures processed at: [facility] Observed: 08/06/2018 Status: F Source: [facility] BLOOD: LINE ASSESSMENT 3:25 PM [facility] REPOSITORY SOURCE: MICHAEL GARNETT: RESULT: NO GROWTH DAY 5 OF 5 REPORT STATUS: 08/11/2018 FINAL Performed By: #### TAMIR #### [address] [address] Blood Cultures processed at: [facility] AMMONIA Collected: 08/06/2018 Status: F Source: [facility] 1:55 PM [facility] REPOSITORY TYPE CODE TESTS RESULT OUT OF REFERENCE UNITS RANGE LAB NH3 6-47 umol/L High Ammonia 51 Performed By: #### NH3B #### [facility] [address] [place] [address] [place] [address] URINALYSIS Collected: 08/06/2018 Status: F Source: [facility] 1:55 PM [facility] REPOSITORY TYPE CODE TESTS RESULT OUT OF RANGE REFERENCE UNITS LAB SAP SOLUTION MANAGER CONSULTANT Clear Appearance Abnormal Urine Turbid LAB SPGR 1.001-1.035 Specific [place] urine 1.016 LAB UGL Negative mg/dL Glucose Urine Negative LAB UKET Negative Ketones Abnormal Urine Trace LAB UBLD Negative Blood Urine Abnormal Large LAB UPH 5.0-7.0 pH Urine 5.5 LAB UPR Negative mg/dL Protein Abnormal Urine 100 LAB UNTR Negative Nitrites Urine Negative LAB ULEU Negative Leukocyte Abnormal Esterase Large LAB COLR Yellow Color Abnormal Dark Yellow LAB UURO <2.0 EU/dL Urobilinogen 0.2 urine LAB UWBC 0-5 /HPF WBC Urine Abnormal >20 LAB URBC 0-2 /HPF RBC Urine Abnormal >20 LAB BACT Absent Bacteria Absent LAB UCOM COMMENT URINE Mucus LAB EPIS /HPF Squamous Epithelial 2+ Performed By: #### URIN #### [facility] [address] [place] [address] [place] [address] *POC GLUCOSE BATTERY Collected: 08/06/2018 Status: F Source: [facility] 12:07 PM [facility] REPOSITORY TYPE CODE TESTS RESULT OUT OF REFERENCE UNITS RANGE LAB GLUP 70-99 mg/dL High Glucose (poc 175 device) Result Comment: No BRAVE per RN: PATIENT TYPE LAB PCSTYP *POC Capillary SAMPLE TYPE Blood *POC GLUCOSE BATTERY Collected: 08/06/2018 Status: F Source: [facility] 11:28 AM [facility] REPOSITORY TYPE CODE TESTS RESULT OUT OF REFERENCE UNITS RANGE LAB GLUP 70-99 mg/dL High Glucose (poc 194 device) Result Comment: No BRAVE per RN: PATIENT TYPE LAB PCSTYP *POC Capillary SAMPLE TYPE Blood *POC GLUCOSE BATTERY Collected: 08/06/2018 Status: F Source: [facility] 8:45 AM [facility] [facility] REPOSITORY TYPE CODE TESTS RESULT OUT OF REFERENCE UNITS RANGE LAB GLUP 70-99 mg/dL High Glucose (poc 186 device) Result Comment: No BRAVE per RN: PATIENT TYPE LAB PCSTYP *POC Capillary SAMPLE TYPE Blood *POC GLUCOSE BATTERY Collected: 08/06/2018 Status: F Source: [facility] 7:48 AM [facility] REPOSITORY TYPE CODE TESTS RESULT OUT OF REFERENCE UNITS RANGE LAB GLUP 70-99 mg/dL High Glucose (poc 157 device) Result Comment: No BRAVE per RN: PATIENT TYPE LAB PCSTYP *POC Capillary SAMPLE TYPE Blood Observed: 08/06/2018 Status: F Source: [facility] TYPE AND CROSS 5:15 AM [facility] REPOSITORY ABO/RH(D): O POSITIVE ANTIBODY SCREEN: NEGATIVE Performed By: #### XM #### [facility] [address] [place], [place] [id number] [place] [address] [address] [place], [place] [address] CBC,PLATELET,DIFFERENTIAL - CCL Collected: Status: F Source: [facility] 08/06/2018 4:39 AM [facility] REPOSITORY TYPE CODE TESTS RESULT OUT OF REFERENCE UNITS RANGE LAB WBC 3.99-11.19 K/uL WBC Count 14.83 High LAB RBC 3.91-5.04 M/uL RBC Count 2.90 Low LAB HGB 11.4-15.2 g/dL Hemoglobin 8.4 Low LAB HCT 34.9-44.3 % Hematocrit 26.1 Low LAB MCV 79.6-97.7 fL Mean Cell 90.0 Volume LAB MCH 25.9-33.9 pg Mean Cell 29.0 Hgb LAB MCHC 31.4-35.9 g/dL Mean Cell 32.2 Hgb Conc LAB RDW 10.8-14.9 % RBC 23.4 High Distribution LAB PLT 150-393 K/uL Platelet 133 Low Count LAB MPV 8.5-12.2 fL Mean 10.6 Platelet Volume LAB NRBC 0.0-0.2 /100 WBC NUCLEATED 0.0 RBC LAB DTYPE Electronic DIFFERENTIAL TYPE Differential LAB IGRE % IMMATURE 1.8 GRANS % LAB SEGS % NEUTROPHIL 84.9 SEGMENTED LAB LYM % LYMPHOCYTE 5.9 % LAB MON % MONOCYTE % 6.4 LAB EOS % *EOSINOPHIL 0.3 % LAB BASO % BASOPHIL % 0.7 LAB IGABS 0.00-0.08 K/uL IMMATURE 0.27 High GRANS ABSOLUTE LAB SBANS 1.64-7.28 K/uL SEGS + 12.60 High Bands,Absolute LAB ALYM 1.16-3.51 K/uL Abs Lymph 0.87 Low LAB AMONO 0.22-0.87 K/uL Abs Laurel 0.95 High LAB AEOS 0.00-0.42 K/uL Abs Eos 0.04 LAB ABASO 0.00-0.15 K/uL Abs Baso 0.10 Performed By: #### CBCDFC, CA, CHM7, IPB, MGO #### [facility] [address] [place] [address] [address] [place] [address] CALCIUM Collected: 08/06/2018 Status: F Source: [facility] 4:39 [facility] REPOSITORY TYPE CODE TESTS RESULT OUT OF REFERENCE UNITS RANGE LAB CA 8.6-10.5 mg/dL Low Calcium 8.3 Performed By: #### ELIJAH, CA, CHM7, IPB, MGO #### [facility] [address] [place] [address] CHEM 7 Collected: 08/06/2018 Status: F Source: [facility] 4:39 [facility] REPOSITORY TYPE CODE TESTS RESULT OUT OF REFERENCE UNITS RANGE LAB BUN 7-22 mg/dL BUN High 32 LAB NA 133-143 mmol/L Sodium 138 LAB K 3.5-5.0 mmol/L Potassium 4.6 LAB CL 98-108 mmol/L Chloride 105 LAB CO2 22-30 mmol/L Carbon Dioxide 24 LAB GLUC 70-99 mg/dL Glucose High 160 LAB CREA 0.50-1.20 mg/dL High Creatinine 2.36 LAB GAP 7-17 mmol/L Anion Gap 14 LAB BC BUN/CREA Ratio 14 LAB [facility] 278-305 mOsm/kg Osmolality 301 (Calc) LAB GFR >60 mL/min/1.73 Low sqM Est GFR,non 21 Estonian LAB GFRA >60 mL/min/1.73 Low sqM Est GFR, 25 Performed By: #### CBCDFC, CA, CHM7, IPB, MGO #### [facility] [address] [place] [address] INORGANIC PHOSPHATE Collected: 08/06/2018 Status: F Source: [facility] 4:39 AM [facility] REPOSITORY TYPE CODE TESTS RESULT OUT OF REFERENCE UNITS RANGE LAB IP 2.2-4.6 mg/dL Inorg Phosphate 3.8 Performed By: #### CBCDFC, CA, CHM7, IPB, MGO #### [facility] [address] [place] [id number] [place] [address] [place] [address] MAGNESIUM Collected: 08/06/2018 Status: F Source: [facility] 4:39 AM [facility] REPOSITORY TYPE CODE TESTS RESULT OUT OF REFERENCE UNITS RANGE LAB MG 1.6-2.6 mg/dL Magnesium 2.0 Performed By: #### CBCDFC, CA, CHM7, IPB, MGO #### [facility] [address] [place] [address] [place] [address] *POC GLUCOSE BATTERY Collected: 08/05/2018 Status: F Source: [facility] 9:14 PM [facility] REPOSITORY TYPE CODE TESTS RESULT OUT OF REFERENCE UNITS RANGE LAB GLUP 70-99 mg/dL High Glucose (poc 125 device) Result Comment: Notified RNread back No BRAVE per RN: PATIENT TYPE LAB PCSTYP *POC Capillary SAMPLE TYPE Blood *POC GLUCOSE BATTERY Collected: 08/05/2018 Status: F Source: [facility] 5:00 PM [facility] REPOSITORY TYPE CODE TESTS RESULT OUT OF REFERENCE UNITS RANGE LAB GLUP 70-99 mg/dL High Glucose (poc 201 device) Result Comment: Notified RNread back No BRAVE per RN: PATIENT TYPE LAB PCSTYP *POC Capillary SAMPLE TYPE Blood AMMONIA Collected: 08/05/2018 Status: F Source: [facility] 1:07 PM [facility] REPOSITORY TYPE CODE TESTS RESULT OUT OF REFERENCE UNITS RANGE LAB NH3 6-47 umol/L High Ammonia 53 Performed By: #### NH3B #### [facility] [address] [place] [address] [place] [address] *POC GLUCOSE BATTERY Collected: 08/05/2018 Status: F Source: [facility] 11:05 AM [facility] REPOSITORY TYPE CODE TESTS RESULT OUT OF REFERENCE UNITS RANGE LAB GLUP 70-99 mg/dL High Glucose (poc 191 device) Result Comment: Notified RNread back No BRAVE per RN: PATIENT TYPE LAB PCSTYP *POC Capillary SAMPLE TYPE Blood *POC GLUCOSE BATTERY Collected: 08/05/2018 Status: F Source: [facility] 8:18 AM [facility] REPOSITORY TYPE CODE TESTS RESULT OUT OF REFERENCE UNITS RANGE LAB GLUP 70-99 mg/dL High Glucose (poc 154 device) Result Comment: No BRAVE per RN: PATIENT TYPE LAB PCSTYP *POC Capillary SAMPLE TYPE Blood CBC,PLATELET,DIFFERENTIAL - CCL Collected: Status: F Source: [facility] 08/05/2018 3:56 AM [facility] REPOSITORY TYPE CODE TESTS RESULT OUT OF REFERENCE UNITS RANGE LAB WBC 3.99-11.19 K/uL WBC Count 8.15 LAB RBC 3.91-5.04 M/uL RBC Count 2.78 Low LAB HGB 11.4-15.2 g/dL Hemoglobin 8.1 Low LAB HCT 34.9-44.3 % Hematocrit 25.4 Low LAB MCV 79.6-97.7 fL Mean Cell 91.4 Volume LAB MCH 25.9-33.9 pg Mean Cell 29.1 Hgb LAB MCHC 31.4-35.9 g/dL Mean Cell 31.9 Hgb Conc LAB RDW 10.8-14.9 % RBC 23.0 High Distribution LAB PLT 150-393 K/uL Platelet 98 Low Count LAB MPV 8.5-12.2 fL Mean 11.5 Platelet Volume LAB NRBC 0.0-0.2 /100 WBC NUCLEATED 0.0 RBC LAB DTYPE Electronic DIFFERENTIAL TYPE Differential LAB IGRE % IMMATURE 2.9 GRANS % LAB SEGS % NEUTROPHIL 78.5 SEGMENTED LAB LYM % LYMPHOCYTE 8.6 % LAB MON % MONOCYTE % 8.2 LAB EOS % *EOSINOPHIL 1.1 % LAB BASO % BASOPHIL % 0.7 LAB IGABS 0.00-0.08 K/uL IMMATURE 0.24 High GRANS ABSOLUTE LAB SBANS 1.64-7.28 K/uL SEGS + 6.39 Bands,Absolute LAB ALYM 1.16-3.51 K/uL Abs Lymph 0.70 Low LAB AMONO 0.22-0.87 K/uL Abs Laurel 0.67 LAB AEOS 0.00-0.42 K/uL Abs Eos 0.09 LAB ABASO 0.00-0.15 K/uL Abs Baso 0.06 Performed By: #### CBCDFC, CA, CHM7, HFP, IPB, MGO #### [facility] [address] [place] [phone] [place] [address] [place] [address] CALCIUM Collected: 08/05/2018 Status: F Source: [facility] 3:56 AM [facility] REPOSITORY TYPE CODE TESTS RESULT OUT OF REFERENCE UNITS RANGE LAB CA 8.6-10.5 mg/dL Low Calcium 8.1 Performed By: #### CBCDFC, CA, CHM7, HFP, IPB, MGO #### [facility] [address] [place] [address] [address] CHEM 7 Collected: 08/05/2018 Status: F Source: [facility] 3:56 [facility] REPOSITORY TYPE CODE TESTS RESULT OUT OF REFERENCE UNITS RANGE LAB BUN 7-22 mg/dL BUN High 29 LAB NA 133-143 mmol/L Sodium 140 LAB K 3.5-5.0 mmol/L Potassium 4.2 LAB CL 98-108 mmol/L Chloride 108 LAB CO2 22-30 mmol/L Carbon Dioxide 25 LAB GLUC 70-99 mg/dL Glucose High 142 LAB CREA 0.50-1.20 mg/dL High Creatinine 1.88 LAB GAP 7-17 mmol/L Anion Gap 11 LAB BC BUN/CREA Ratio 15 LAB [facility] 278-305 mOsm/kg Osmolality 302 (Calc) LAB GFR >60 mL/min/1.73 Low sqM Est GFR,non 27 Estonian LAB GFRA >60 mL/min/1.73 Low sqM Est GFR, 33 Performed By: #### CBCDFC, CA, CHM7, HFP, IPB, MGO #### [facility] [address] [place] [id number] [place] [address] [place] [address] HEPATIC FUNCTION Collected: 08/05/2018 Status: F Source: [facility] 3:56 AM [facility] REPOSITORY TYPE CODE TESTS RESULT OUT OF REFERENCE UNITS RANGE LAB ALB 3.5-5.0 g/dL Low Albumin 2.5 LAB BILD <0.3 mg/dL Bilirubin High Direct 0.6 LAB BILT <1.5 mg/dL Bilirubin High Total 1.5 LAB ALP 32-126 U/L Alkaline High Phosphatase 169 LAB ALT 9-48 U/L ALT 13 LAB AST 14-40 U/L AST 40 LAB TP 6.4-8.3 g/dL Low Total Protein 5.2 Performed By: #### CBCDFC, CA, CHM7, HFP, IPB, MGO #### [facility] [address] [place] [phone] [place] [address] [place] [address] INORGANIC PHOSPHATE Collected: 08/05/2018 Status: F Source: [facility] 3:56 AM [facility] REPOSITORY TYPE CODE TESTS RESULT OUT OF REFERENCE UNITS RANGE LAB IP 2.2-4.6 mg/dL Inorg Phosphate 3.4 Performed By: #### CBCDFC, CA, CHM7, HFP, IPB, MGO #### [facility] [address] [place] [address] [place] [address] MAGNESIUM Collected: 08/05/2018 Status: F Source: [facility] 3:56 AM [facility] REPOSITORY TYPE CODE TESTS RESULT OUT OF REFERENCE UNITS RANGE LAB MG 1.6-2.6 mg/dL Magnesium 2.0 Performed By: #### CBCDFC, CA, CHM7, HFP, IPB, MGO #### [facility] [address] [place] [address] [place] [address] *POC GLUCOSE BATTERY Collected: 08/04/2018 Status: F Source: [facility] 9:00 PM [facility] REPOSITORY TYPE CODE TESTS RESULT OUT OF REFERENCE UNITS RANGE LAB GLUP 70-99 mg/dL High Glucose (poc 154 device) Result Comment: Notified RNread back No BRAVE per RN: PATIENT TYPE LAB PCSTYP *POC Capillary SAMPLE TYPE Blood *POC GLUCOSE BATTERY Collected: 08/04/2018 Status: F Source: [facility] 5:04 PM [facility] REPOSITORY TYPE CODE TESTS RESULT OUT OF REFERENCE UNITS RANGE LAB GLUP 70-99 mg/dL High Glucose (poc 147 device) Result Comment: Notified RNread back No BRAVE per RN: PATIENT TYPE LAB PCSTYP *POC Capillary SAMPLE TYPE Blood *POC GLUCOSE BATTERY Collected: 08/04/2018 Status: F Source: [facility] 11:25 AM [facility] REPOSITORY TYPE CODE TESTS RESULT OUT OF REFERENCE UNITS RANGE LAB GLUP 70-99 mg/dL High Glucose (poc 200 device) Result Comment: Notified RNread back No BRAVE per RN: PATIENT TYPE LAB PCSTYP *POC Capillary SAMPLE TYPE Blood *POC GLUCOSE BATTERY Collected: 08/04/2018 Status: F Source: [facility] 7:28 AM [facility] REPOSITORY TYPE CODE TESTS RESULT OUT OF REFERENCE UNITS RANGE LAB GLUP 70-99 mg/dL High Glucose (poc 166 device) Result Comment: Notified RNread back No BRAVE per RN: PATIENT TYPE LAB PCSTYP *POC Capillary SAMPLE TYPE Blood CBC,PLATELET,DIFFERENTIAL - CCL Collected: Status: F Source: [facility] 08/04/2018 5:24 AM [facility] REPOSITORY TYPE CODE TESTS RESULT OUT OF REFERENCE UNITS RANGE LAB WBC 3.99-11.19 K/uL WBC Count 9.58 LAB RBC 3.91-5.04 M/uL RBC Count 2.80 Low LAB HGB 11.4-15.2 g/dL Hemoglobin 8.1 Low LAB HCT 34.9-44.3 % Hematocrit 25.1 Low LAB MCV 79.6-97.7 fL Mean Cell 89.6 Volume LAB MCH 25.9-33.9 pg Mean Cell 28.9 Hgb LAB MCHC 31.4-35.9 g/dL Mean Cell 32.3 Hgb Conc LAB RDW 10.8-14.9 % RBC 22.5 High Distribution LAB PLT 150-393 K/uL Platelet 94 Low Count LAB MPV 8.5-12.2 fL Mean 11.0 Platelet Volume LAB NRBC 0.0-0.2 /100 WBC NUCLEATED 0.2 RBC LAB DTYPE Electronic DIFFERENTIAL TYPE Differential LAB IGRE % IMMATURE 4.2 GRANS % LAB SEGS % NEUTROPHIL 80.1 SEGMENTED LAB LYM % LYMPHOCYTE 7.3 % LAB MON % MONOCYTE % 7.5 LAB EOS % *EOSINOPHIL 0.4 % LAB BASO % BASOPHIL % 0.5 LAB IGABS 0.00-0.08 K/uL IMMATURE 0.40 High GRANS ABSOLUTE LAB SBANS 1.64-7.28 K/uL SEGS + 7.67 High Bands,Absolute LAB ALYM 1.16-3.51 K/uL Abs Lymph 0.70 Low LAB AMONO 0.22-0.87 K/uL Abs Laurel 0.72 LAB AEOS 0.00-0.42 K/uL Abs Eos 0.04 LAB ABASO 0.00-0.15 K/uL Abs Baso 0.05 Performed By: #### CBCDFC, CA, CHM7, IPB, MGO #### [facility] [address] [place] [address] CALCIUM Collected: 08/04/2018 Status: F Source: [facility] 5:24 AM [facility] REPOSITORY TYPE CODE TESTS RESULT OUT OF REFERENCE UNITS RANGE LAB CA 8.6-10.5 mg/dL Low Calcium 8.0 Performed By: #### CBCDFC, CA, CHM7, IPB, MGO #### [facility] [address] [place] [address] CHEM 7 Collected: 08/04/2018 Status: F Source: [facility] 5:24 AM [facility] REPOSITORY TYPE CODE TESTS RESULT OUT OF REFERENCE UNITS RANGE LAB BUN 7-22 mg/dL BUN High 27 LAB NA 133-143 mmol/L Sodium 140 LAB K 3.5-5.0 mmol/L Potassium 4.2 LAB CL 98-108 mmol/L Chloride 107 LAB CO2 22-30 mmol/L Carbon Dioxide 26 LAB GLUC 70-99 mg/dL Glucose High 176 LAB CREA 0.50-1.20 mg/dL High Creatinine 1.80 LAB GAP 7-17 mmol/L Anion Gap 11 LAB BC BUN/CREA Ratio 15 LAB [facility] 278-305 mOsm/kg Osmolality 303 (Calc) LAB GFR >60 mL/min/1.73 Low sqM Est GFR,non 28 Estonian LAB GFRA >60 mL/min/1.73 Low sqM Est GFR, 34 Performed By: #### CBCDFC, CA, CHM7, IPB, MGO #### [facility] [address] [place] [address] [facility] [address] [place] [address] INORGANIC PHOSPHATE Collected: 08/04/2018 Status: F Source: [facility] 5:24 AM [facility] REPOSITORY TYPE CODE TESTS RESULT OUT OF REFERENCE UNITS RANGE LAB IP 2.2-4.6 mg/dL Inorg Phosphate 2.6 Performed By: #### CBCDFC, CA, CHM7, IPB, MGO #### [facility] [address] [place], [place] [id number] [place] [address] [place] [address] MAGNESIUM Collected: 08/04/2018 Status: F Source: [facility] 5:24 AM [facility] REPOSITORY TYPE CODE TESTS RESULT OUT OF REFERENCE UNITS RANGE LAB MG 1.6-2.6 mg/dL Magnesium 1.8 Performed By: #### CBCDFC, CA, CHM7, IPB, MGO #### [facility] [address] [place] [phone] [place] [address] [address] [place] [address] *POC GLUCOSE BATTERY Collected: 08/03/2018 Status: F Source: [facility] 9:46 PM [facility] REPOSITORY TYPE CODE TESTS RESULT OUT OF REFERENCE UNITS RANGE LAB GLUP 70-99 mg/dL High Glucose (poc 194 device) Result Comment: No BRAVE per RN: PATIENT TYPE LAB PCSTYP *POC Capillary SAMPLE TYPE Blood *POC GLUCOSE BATTERY Collected: 08/03/2018 Status: F Source: [facility] 4:59 PM [facility] REPOSITORY TYPE CODE TESTS RESULT OUT OF REFERENCE UNITS RANGE LAB GLUP 70-99 mg/dL High Glucose (poc 221 device) Result Comment: No BRAVE per RN: PATIENT TYPE LAB PCSTYP *POC Capillary SAMPLE TYPE Blood *POC GLUCOSE BATTERY Collected: 08/03/2018 Status: F Source: [facility] 4:06 PM [facility] REPOSITORY TYPE CODE TESTS RESULT OUT OF REFERENCE UNITS RANGE LAB GLUP 70-99 mg/dL High Glucose (poc 191 device) Result Comment: No BRAVE per RN: PATIENT TYPE LAB PCSTYP *POC Capillary SAMPLE TYPE Blood *POC GLUCOSE BATTERY Collected: 08/03/2018 Status: F Source: [facility] 2:01 PM [facility] REPOSITORY TYPE CODE TESTS RESULT OUT OF REFERENCE UNITS RANGE LAB GLUP 70-99 mg/dL High Glucose (poc 211 device) Result Comment: No BRAVE per RN: PATIENT TYPE LAB PCSTYP *POC Capillary SAMPLE TYPE Blood *POC GLUCOSE BATTERY Collected: 08/03/2018 Status: F Source: [facility] 11:29 AM [facility] REPOSITORY TYPE CODE TESTS RESULT OUT OF REFERENCE UNITS RANGE LAB GLUP 70-99 mg/dL High Glucose (poc 122 device) Result Comment: No BRAVE per RN: PATIENT TYPE LAB PCSTYP *POC Capillary SAMPLE TYPE Blood Observed: 08/03/2018 Status: F Source: [facility] BAL CONSULT 9:42 AM [facility] REPOSITORY 90 7 3 rare Cellular specimen consisting predominantly of alveolar macrophages. Rare budding yeast is seen. Correlation with gram stain and culture results is recommended. Anita Ngo M.D. Performed By: #### BAL #### [place] [address] Observed: 08/03/2018 Status: F Source: [facility] RESPIRATORY CULTURE 9:42 AM [facility] REPOSITORY SOURCE: BRONCHIAL ALVEOLAR LAVAGE, QUANTITATIVE: Right Upper Lobe COMMENT: Cloudy 20MLS MICROSCOPIC: Cytocentrifuge preparation Neutrophils, Rare Local Materials, Heavy NO ORGANISMS SEEN RESULT: ----Less than 10,000 CFU/ML---- YEAST NOT CRYPTOCOCCUS (NOTE) Growth of yeast (not Cryptococcus) from respiratory secretions rarely indicates invasive disease and should not be treated with antifungal therapy. (Mau BRUNSON et al (2009). Clin Infect Dis. 48:503-35). REPORT STATUS: 08/05/2018 FINAL Performed By: #### RES #### [place] [address] Blood Cultures processed at: [facility] Observed: 08/03/2018 Status: I Source: [facility] 9:42 [facility] REPOSITORY SOURCE: BRONCHIAL ALVEOLAR LAVAGE: Right Upper Lobe COMMENT: Cultures held 28 days. Cloudy 20MLS RESULT: YEAST NOT CRYPTOCOCCUS : 3 COLONIES (NOTE) Growth of yeast (not Cryptococcus) from respiratory secretions rarely indicates invasive disease and should not be treated with antifungal therapy. (Mau BRUNSON et al (2009). Clin Infect Dis. 48:503-35). REPORT STATUS: PENDING Performed By: #### FUN #### [place] [address] Blood Cultures processed at: [facility] ASPERGILLUS ANTIGEN, Collected: 08/03/2018 Status: F Source: [facility] 9:42 AM [facility] REPOSITORY TYPE CODE TESTS RESULT OUT OF REFERENCE UNITS RANGE LAB ASGFL <0.50 Aspergillus Antigen, fluid 0.17 LAB ASGIN NOT DETECTED Asper Interpretation NOT DETECTED Result Comment: (NOTE) A negative result does not exclude invasive aspergillosis. Follow-up testing may be indicated for high-risk patients. RESULT INTERPRETATION: An Index <0.50 is considered to be negative. An Index >=0.50 is considered to be positive. A positive result for patients being treated with piperacillin-tazobactam and other beta-lactam antibiotics such as amoxicillin-clavulanate may be a false positive due to cross reactivity and should be viewed in conjunction with all clinical findings. Positive results with this assay has also been reported in patients infected with Penicillium marneffei and Cryptococcus. Test Performed by [facility], [facility], [address] [place] [id number] Colin Fleming M.D., Ph.D., Director of Laboratories , CLIA [id number] Reported by [facility] Performed By: #### XASGFL #### Reference lab information reported with result PNEUMOCYSTIS Collected: 08/03/2018 Status: C Source: [facility] JIROVECI,PCR 9:42 AM [facility] REPOSITORY TYPE CODE TESTS RESULT OUT OF REFERENCE UNITS RANGE LAB PNRP PN Specimen BRONCHIAL Source ALVEOLAR LAVAGE: Result Comment: CORRECTED ON 08/07 AT 0717: PREVIOUSLY REPORTED BRONCHIAL ALVEOLAR LAVAGE: LAB PNRPR Not Applicable Pneumocystis jiroveci,PCR resu Negative Result Comment: (NOTE) ADDITIONAL INFORMATION This test was developed and its performance characteristics determined by [facility] in a manner consistent with CLIA requirements. This test has not been cleared or approved by the U.S. Food and Drug Administration. LAB PNRPI Pneumocystis Not applicable jiroveci,PCR comm LAB PNRPRS PN RESULT STATUS Not applicable Result Comment: Test performed by [facility] Dpt of Lab Med & Pathology Performed By: #### YPNRP #### Reference lab information reported with result *POC GLUCOSE BATTERY Collected: 08/03/2018 Status: F Source: [facility] 7:16 AM [facility] REPOSITORY TYPE CODE TESTS RESULT OUT OF REFERENCE UNITS RANGE LAB GLUP 70-99 mg/dL High Glucose (poc 123 device) Result Comment: No BRAVE per RN: PATIENT TYPE LAB PCSTYP *POC Capillary SAMPLE TYPE Blood PT*PTT Collected: 08/03/2018 Status: F Source: [facility] 4:06 AM [facility] REPOSITORY TYPE CODE TESTS RESULT OUT OF RANGE REFERENCE UNITS LAB PT 11.9-14.2 sec High PT 18.0 LAB INR 0.9-1.1 High INR 1.5 LAB PTT 24.0-34.3 sec High PTT 38.0 Performed By: #### PTPTT, CA, CHM7, HFP, IPB, MGO, CBCDFC #### [facility] [address] [place] [address] [address] [place] [address] CALCIUM Collected: 08/03/2018 Status: F Source: [facility] 4:06 AM [facility] REPOSITORY TYPE CODE TESTS RESULT OUT OF REFERENCE UNITS RANGE LAB CA 8.6-10.5 mg/dL Low Calcium 8.0 Performed By: #### TALIA, CA, CHM7, HFP, IPB, MGO, CBCDFC #### [facility] [address] [place] [address] [facility] [address] [place] [address] CHEM 7 Collected: 08/03/2018 Status: F Source: [facility] 4:06 AM [facility] REPOSITORY TYPE CODE TESTS RESULT OUT OF REFERENCE UNITS RANGE LAB BUN 7-22 mg/dL BUN High 24 LAB NA 133-143 mmol/L Sodium 138 LAB K 3.5-5.0 mmol/L Potassium 3.6 LAB CL 98-108 mmol/L Chloride 104 LAB CO2 22-30 mmol/L Carbon Dioxide 26 LAB GLUC 70-99 mg/dL Glucose High 123 LAB CREA 0.50-1.20 mg/dL High Creatinine 1.76 LAB GAP 7-17 mmol/L Anion Gap 12 LAB BC BUN/CREA Ratio 14 LAB [facility] 278-305 mOsm/kg Osmolality 294 (Calc) LAB GFR >60 mL/min/1.73 Low sqM Est GFR,non 29 Estonian LAB GFRA >60 mL/min/1.73 Low sqM Est GFR, 35 Performed By: #### TALIA, CA, CHM7, HFP, IPB, MGO, CBCDFC #### [facility] [address] [place], [place] [id number] [facility] [address] [place] [address] HEPATIC FUNCTION Collected: 08/03/2018 Status: F Source: [facility] PANEL 4:06 AM [facility] REPOSITORY TYPE CODE TESTS RESULT OUT OF REFERENCE UNITS RANGE LAB ALB 3.5-5.0 g/dL Low Albumin 2.5 LAB BILD <0.3 mg/dL Bilirubin High Direct 0.6 LAB BILT <1.5 mg/dL Bilirubin High Total 1.5 LAB ALP 32-126 U/L Alkaline High Phosphatase 143 LAB ALT 9-48 U/L Low ALT 8 LAB AST 14-40 U/L AST 18 LAB TP 6.4-8.3 g/dL Low Total Protein 5.0 Performed By: #### PTPTT, CA, CHM7, HFP, IPB, MGO, CBCDFC #### [facility] [address] [place] [id number] [place] [address] [place] [address] INORGANIC PHOSPHATE Collected: 08/03/2018 Status: F Source: [facility] 4:06 AM [facility] REPOSITORY TYPE CODE TESTS RESULT OUT OF REFERENCE UNITS RANGE LAB IP 2.2-4.6 mg/dL Inorg Phosphate 3.2 Performed By: #### PTPTT, CA, CHM7, HFP, IPB, MGO, CBCDFC #### [facility] [address] [place] [id number] [place] [address] [place] [address] MAGNESIUM Collected: 08/03/2018 Status: F Source: [facility] 4:06 AM [facility] REPOSITORY TYPE CODE TESTS RESULT OUT OF REFERENCE UNITS RANGE LAB MG 1.6-2.6 mg/dL Magnesium 1.8 Performed By: #### PTPTT, CA, CHM7, HFP, IPB, MGO, CBCDFC #### [facility] [address] [place] [id number] [facility] [address] [place] [address] CBC,PLATELET,DIFFERENTIAL - CCL Collected: Status: F Source: [facility] 08/03/2018 4:06 AM [facility] REPOSITORY TYPE CODE TESTS RESULT OUT OF REFERENCE UNITS RANGE LAB WBC 3.99-11.19 K/uL WBC Count 6.24 LAB RBC 3.91-5.04 M/uL RBC Count 2.70 Low LAB HGB 11.4-15.2 g/dL Hemoglobin 7.8 Low LAB HCT 34.9-44.3 % Hematocrit 24.1 Low LAB MCV 79.6-97.7 fL Mean Cell 89.3 Volume LAB MCH 25.9-33.9 pg Mean Cell Hgb 28.9 LAB MCHC 31.4-35.9 g/dL Mean Cell Hgb 32.4 Conc LAB RDW 10.8-14.9 % RBC 22.3 High Distribution LAB PLT 150-393 K/uL Platelet Count 82 Low LAB MPV 8.5-12.2 fL Mean Platelet 11.3 Volume LAB NRBC 0.0-0.2 /100 WBC NUCLEATED RBC 0.0 LAB DTYPE DIFFERENTIAL Manual TYPE Differential LAB SEGS % NEUTROPHIL 83.9 SEGMENTED LAB LYM % LYMPHOCYTE % 10.7 LAB MON % MONOCYTE % 0.9 LAB EOS % *EOSINOPHIL % 0.9 LAB BASO % BASOPHIL % 1.8 LAB BAND % BAND 0.9 NEUTROPHIL % LAB META % METAMYELOCYTE 0.9 % LAB SBANS 1.64-7.28 K/uL SEGS + 5.29 Bands,Absolute LAB ALYM 1.16-3.51 K/uL Abs Lymph 0.67 Low LAB AMONO 0.22-0.87 K/uL Abs Laurel 0.06 Low LAB AEOS 0.00-0.42 K/uL Abs Eos 0.06 LAB ABASO 0.00-0.15 K/uL Abs Baso 0.11 LAB AMETA 0.00 K/uL Abs Jonancy 0.06 High LAB OVALO OVALOCYTES Present LAB POLYCH POLYCHROMASIA 1+ LAB TEARDR TEARDROP CELLS Present LAB PLTEST PLATELET ESTIMATE Automated platelet count confirmed by manual slide review. Performed By: #### PTPTT, CA, CHM7, HFP, IPB, MGO, CBCDFC #### [facility] [place] [address] [place] [address] [place] [address] *POC GLUCOSE BATTERY Collected: 08/02/2018 Status: F Source: [facility] 9:03 PM [facility] REPOSITORY TYPE CODE TESTS RESULT OUT OF REFERENCE UNITS RANGE LAB GLUP 70-99 mg/dL High Glucose (poc 166 device) Result Comment: No BRAVE per RN: PATIENT TYPE LAB PCSTYP *POC Capillary SAMPLE TYPE Blood *POC GLUCOSE BATTERY Collected: 08/02/2018 Status: F Source: [facility] 5:11 PM [facility] REPOSITORY TYPE CODE TESTS RESULT OUT OF REFERENCE UNITS RANGE LAB GLUP 70-99 mg/dL High Glucose (poc 173 device) Result Comment: No BRAVE per RN: PATIENT TYPE LAB PCSTYP *POC Capillary SAMPLE TYPE Blood *POC GLUCOSE BATTERY Collected: 08/02/2018 Status: F Source: [facility] 11:49 AM [facility] REPOSITORY TYPE CODE TESTS RESULT OUT OF REFERENCE UNITS RANGE LAB GLUP 70-99 mg/dL High Glucose (poc 178 device) Result Comment: No BRAVE per RN: PATIENT TYPE LAB PCSTYP *POC Capillary SAMPLE TYPE Blood Observed: 08/02/2018 Status: I Source: [facility] BLOOD: FUNGUS 9:06 AM [facility] REPOSITORY SOURCE: BLOOD, FUNGAL: RESULT: NO GROWTH TO DATE REPORT STATUS: PENDING Performed By: #### FBLD #### [place] [address] Blood Cultures processed at: [facility] CRYPTOCOCCUS Collected: 08/02/2018 Status: F Source: [facility] ANTIGEN,SERUM 9:06 AM [facility] REPOSITORY TYPE CODE TESTS RESULT OUT OF REFERENCE UNITS RANGE LAB CRAG Negative Cryptococcus Antigen,serum Negative Result Comment: This test should not be used to screen asymptomatic patients. Performed By: #### CRAG #### [facility] [place] [address] [place] [address] #### YASPR, YFFUNG, YFHIST, YHISID, YSCOC #### Reference lab information reported with result ASPERGILLUS ANTIGEN Collected: 08/02/2018 Status: F Source: [facility] 9:06 [facility] REPOSITORY TYPE CODE TESTS RESULT OUT OF REFERENCE UNITS RANGE LAB YASPER NOT DETECTED Aspergillus NOT DETECTED Antigen Result Comment: (NOTE) A negative result does not exclude invasive aspergillosis. Follow-up testing may be indicated for high-risk patients. RESULT INTERPRETATION: An Index <0.50 is considered to be negative. An Index >=0.50 is considered to be positive. A positive result for patients being treated with piperacillin-tazobactam and other beta-lactam antibiotics such as amoxicillin-clavulanate may be a false positive due to cross reactivity and should be viewed in conjunction with all clinical findings. Positive results with this assay has also been reported in patients infected with Penicillium marneffei and Cryptococcus. Test Performed by [facility] [place], [facility], [address] [place] [address] Colin Fleming M.D., Ph.D., Director of Laboratories , [facility] [id number] LAB ASPERI <0.50 Aspergillus Index Value 0.12 Result Comment: Reported by [facility] Performed By: #### CRAG #### [facility] [place] [address] [place] [address] #### YASPR, YFFUNG, YFHIST, YHISID, YSCOC #### Reference lab information reported with result FUNGITELL ASSAY Collected: 08/02/2018 Status: F Source: [facility] 9:06 [facility] REPOSITORY TYPE CODE TESTS RESULT OUT OF REFERENCE UNITS RANGE LAB FFUNG <60 pg/mL Fungitell Result <31 LAB FUNINT Fungitell Interpretation Negative Result Comment: (NOTE) This assay is for the presumptive diagnosis of fungal infections and should be used in conjunction with other diagnostic procedures. (1->3)-ujav-C-xyjrem values of <60 pg/mL are considered negative and indicate the presumptive absence of fungal infection. Glucan values of >=60 but <79 pg/mL are considered indeterminate, and glucan values of >=80 pg/mL are considered positive and indicate the presumptive presence of a fungal infection. This assay may not detect certain fungal species that do not produce or produce low levels of (1->3)-qvjt-O-gizlig including: Cryptococcus, Absidia, Mucor, Rhizopus, and the yeast phase of Blastomyces dermatitidis. Test Performed by [place], [facility] [place] [facility], [address] [place] [address] Colin Fleming M.D., Ph.D., Director of Laboratories , [facility] [id number] Reported by [facility] Performed By: #### CRAG #### [facility] [place] [address] #### YASPR, YFFUNG, YFHIST, YHISID, YSCOC #### Reference lab information reported with result HISTOPLASMA ANTIGEN, Collected: 08/02/2018 Status: F Source: [facility] SERUM 9:06 AM [facility] REPOSITORY TYPE CODE TESTS RESULT OUT OF REFERENCE UNITS RANGE LAB FHRES ng/mL Histoplasma Antigen, serum NONE DETECTED LAB FHINT Histo Interpretation Negative Result Comment: (NOTE) ADDITIONAL INFORMATION Reference interval: None Detected Results reported as ng/mL in 0.4 - 19 ng/mL range Results above the limit of detection but below 0.4 ng/mL are reported as 'Positive, Below the Limit of Quantification' Results above 19.0 ng/mL are reported as 'Positive, Above the Limit of Quantification' This test was developed and its performance characteristics determined by [facility]. It has not been cleared or approved by the FDA; however, FDA clearance or approval is not currently required for clinical use. The results are not intended to be used as the sole means for clinical diagnosis or patient management decisions. Test Performed by: [facility] [address] [facility] [place] [address] Performed By: #### CRAG #### [place] [address] #### YASPR, YFFUNG, YFHIST, YHISID, YSCOC #### Reference lab information reported with result HISTOPLASMA ANTIBODY, Collected: 08/02/2018 Status: F Source: [facility] IMMUNODIFFUSION 9:06 AM [facility] REPOSITORY TYPE CODE TESTS RESULT OUT OF REFERENCE UNITS RANGE LAB HISID Negative Histoplasma Yeast ID Ab Negative Result Comment: (NOTE) Interpretive Criteria: Negative: Antibody Not Detected Positive: Antibody Detected Positive immunodiffusion (ID) reactions involve one or more specific precipitin bands. Of these bands the first to appear in active histoplasmosis is the M band, which is seen in approximately 70% of proven cases. This band is also seen in some patients with past infections and in 20% of those with recent histoplasmin skin testing. The H band is usually seen in active and progressive histoplasmosis and almost always in the presence of the M band, although it is found less often (approximately 10% of proven cases). Test [facility]formed by [facility], [facility], [address] [place] [address] Colin Fleming M.D., Ph.D., Director of Laboratories , [facility] [id number] Reported by [facility] Performed By: #### CRAG #### [facility] [place] [address] [place] [address] [place] [address] #### YASPR, YFFUNG, YFHIST, YHISID, YSCOC #### Reference lab information reported with result COCCIDIOIDES AB, SERUM Collected: 08/02/2018 Status: F Source: [facility] 9:06 AM [facility] REPOSITORY TYPE CODE TESTS RESULT OUT OF REFERENCE UNITS RANGE LAB CCOMF Negative Cocci Complement F Negative LAB CIMMG Negative Cocci Immunodiffusion IgG Negative LAB CIMMM Negative Cocci Immunodiffusion IgM Negative Result Comment: (NOTE) A negative complement fixation and immunodiffusion (CF/ID) result does not exclude the diagnosis of coccidioidomycosis. Repeat testing by CF/ID in 2-3 weeks if clinically indicated. Test performed by [facility] Dpt of Lab & Pathology [facility] Performed By: #### CRAG #### [facility] [address] [place] [address] [facility] [address] [place], [place] [address] #### YASPR, YFFUNG, YFHIST, YHISID, YSCOC #### Reference lab information reported with result HISTOPLASMA AG, U Collected: 08/02/2018 Status: F Source: [facility] 9:06 [facility] REPOSITORY TYPE CODE TESTS RESULT OUT OF REFERENCE UNITS RANGE LAB YHISTO Negative Negative *Histoplasm a Antigen, urine Result Comment: (NOTE) No Histoplasma antigen detected. Repeat testing on a new sample if clinically indicated. This test was performed using the IMMY Histoplasma capsulatum galactomannan EIA. LAB HRESUL ng/mL Histoplasma Ag, Interpretation 0.00 Result Comment: (NOTE) REFERENCE VALUE 0.00 - 0.10 = Negative 0.11 - 0.49 = Indeterminate >=0.50 = Positive ADDITIONAL INFORMATION This test was developed and its performance characteristics determined by [facility] in a manner consistent with CLIA requirements. This test has not been cleared or approved by the U.S. Food and Drug Administration. Test performed by [facility] Dpt of Lab & Pathology [facility] Performed By: #### YHISTG #### Reference lab information reported with result BLASTOMYCES ANTIGEN Collected: 08/02/2018 Status: C Source: [facility] 9:06 [facility] REPOSITORY TYPE CODE TESTS RESULT OUT OF REFERENCE UNITS RANGE LAB BLSPT Blastomyces spec type Serum Result Comment: CORRECTED ON 08/07 AT 0910: PREVIOUSLY REPORTED Serum LAB BLASAG Blastomyces Ag Negative Comment Result Comment: (NOTE) ADDITIONAL INFORMATION Reference interval: None Detected Results reported as ng/mL in 0.2 - 14.7 ng/mL range Results above the limit of detection but below 0.2 ng/mL are reported as 'Positive, Below the Limit of Quantification' Results above 14.7 ng/mL are reported as 'Positive, Above the Limit of Quantification' This test was developed and its performance characteristics determined by [facility]. It has not been cleared or approved by the FDA; however, FDA clearance or approval is not currently required for clinical use. The results are not intended to be used as the sole means for clinical diagnosis or patient management decisions. Test Performed by: [facility] [place] [address] LAB BLRES ng/mL Blastomyces NONE RESULT: DETECTED Performed By: #### YBLASG #### Reference lab information reported with result BLASTOMYCES ANTIGEN Collected: 08/02/2018 Status: C Source: [facility] 9:06 AM [facility] REPOSITORY TYPE CODE TESTS RESULT OUT OF REFERENCE UNITS RANGE LAB BLSPT Blastomyces spec type Urine Result Comment: CORRECTED ON 08/07 AT 0910: PREVIOUSLY REPORTED Urine LAB BLASAG Blastomyces Ag Negative Comment Result Comment: (NOTE) ADDITIONAL INFORMATION Reference interval: None Detected Results reported as ng/mL in 0.2 - 14.7 ng/mL range Results above the limit of detection but below 0.2 ng/mL are reported as 'Positive, Below the Limit of Quantification' Results above 14.7 ng/mL are reported as 'Positive, Above the Limit of Quantification' This test was developed and its performance characteristics determined by [facility]. It has not been cleared or approved by the FDA; however, FDA clearance or approval is not currently required for clinical use. The results are not intended to be used as the sole means for clinical diagnosis or patient management decisions. Test Performed by: [facility] [address] [employer] [place] [address] LAB BLRES ng/mL Blastomyces NONE RESULT: DETECTED Performed By: #### YBLASG #### Reference lab information reported with result *POC GLUCOSE BATTERY Collected: 08/02/2018 Status: F Source: [facility] 7:23 [facility] REPOSITORY TYPE CODE TESTS RESULT OUT OF REFERENCE UNITS RANGE LAB GLUP 70-99 mg/dL High Glucose (poc 103 device) Result Comment: No BRAVE per RN: PATIENT TYPE LAB PCSTYP *POC Capillary SAMPLE TYPE Blood CALCIUM Collected: 08/02/2018 Status: F Source: [facility] 4:21 AM [facility] REPOSITORY TYPE CODE TESTS RESULT OUT OF REFERENCE UNITS RANGE LAB CA 8.6-10.5 mg/dL Low Calcium 8.0 Performed By: #### CA, CHM7, IPB, MGO, CBCDFC #### [facility] [address] [place] [id number] [place] [address] [place] [address] CHEM 7 Collected: 08/02/2018 Status: F Source: [facility] 4:21 AM [facility] REPOSITORY TYPE CODE TESTS RESULT OUT OF REFERENCE UNITS RANGE LAB BUN 7-22 mg/dL BUN High 24 LAB NA 133-143 mmol/L Sodium 142 LAB K 3.5-5.0 mmol/L Potassium 3.8 LAB CL 98-108 mmol/L Chloride 108 LAB CO2 22-30 mmol/L Carbon Dioxide 27 LAB GLUC 70-99 mg/dL Glucose High 115 LAB CREA 0.50-1.20 mg/dL High Creatinine 1.53 LAB GAP 7-17 mmol/L Anion Gap 11 LAB BC BUN/CREA Ratio 16 LAB OSMC 278-305 mOsm/kg Osmolality 301 (Calc) LAB GFR >60 mL/min/1.73 Low sqM Est GFR,non 34 Estonian LAB GFRA >60 mL/min/1.73 Low sqM Est GFR, 41 Performed By: #### CA, CHM7, IPB, MGO, CBCDFC #### [facility] [address] [place] [address] [place] [address] [place] [address] INORGANIC PHOSPHATE Collected: 08/02/2018 Status: F Source: [facility] 4:21 AM [facility] REPOSITORY TYPE CODE TESTS RESULT OUT OF REFERENCE UNITS RANGE LAB IP 2.2-4.6 mg/dL Inorg Phosphate 3.0 Performed By: #### CA, CHM7, IPB, MGO, CBCDFC #### [facility] [address] [place] [address] [facility] [address] [place], [place] [address] MAGNESIUM Collected: 08/02/2018 Status: F Source: [facility] 4:21 AM [facility] REPOSITORY TYPE CODE TESTS RESULT OUT OF REFERENCE UNITS RANGE LAB MG 1.6-2.6 mg/dL Magnesium 1.8 Performed By: #### CA, CHM7, IPB, MGO, CBCDFC #### [facility] [address] [place] [address] [facility] [address] [place], [place] [address] CBC,PLATELET,DIFFERENTIAL - CCL Collected: Status: F Source: [facility] 08/02/2018 4:21 AM [facility] REPOSITORY TYPE CODE TESTS RESULT OUT OF REFERENCE UNITS RANGE LAB WBC 3.99-11.19 K/uL WBC Count 7.33 LAB RBC 3.91-5.04 M/uL RBC Count 2.72 Low LAB HGB 11.4-15.2 g/dL Hemoglobin 7.8 Low LAB HCT 34.9-44.3 % Hematocrit 24.0 Low LAB MCV 79.6-97.7 fL Mean Cell 88.2 Volume LAB MCH 25.9-33.9 pg Mean Cell Hgb 28.7 LAB MCHC 31.4-35.9 g/dL Mean Cell Hgb 32.5 Conc LAB RDW 10.8-14.9 % RBC 22.2 High Distribution LAB PLT 150-393 K/uL Platelet Count 79 Low LAB MPV 8.5-12.2 fL Mean Platelet 11.0 Volume LAB NRBC 0.0-0.2 /100 WBC NUCLEATED RBC 0.0 LAB DTYPE DIFFERENTIAL Manual TYPE Differential LAB SEGS % NEUTROPHIL 86.7 SEGMENTED LAB LYM % LYMPHOCYTE % 5.3 LAB MON % MONOCYTE % 3.5 LAB EOS % *EOSINOPHIL % 0.0 LAB BASO % BASOPHIL % 0.0 LAB BAND % BAND 2.7 NEUTROPHIL % LAB MYEL % MYELOCYTE % 1.8 LAB SBANS 1.64-7.28 K/uL SEGS + 6.55 Bands,Absolute LAB ALYM 1.16-3.51 K/uL Abs Lymph 0.39 Low LAB AMONO 0.22-0.87 K/uL Abs Laurel 0.26 LAB AEOS 0.00-0.42 K/uL Abs Eos 0.00 LAB ABASO 0.00-0.15 K/uL Abs Baso 0.00 LAB AMYEL 0.00 K/uL Abs Myelo 0.13 High LAB OVALO OVALOCYTES Present LAB POLYCH POLYCHROMASIA 1+ LAB TEARDR TEARDROP CELLS Present LAB PLTEST PLATELET ESTIMATE Automated platelet count confirmed by manual slide review. Performed By: #### CA, CHM7, IPB, MGO, CBCDFC #### [facility] [address] [place] [address] [facility] [address] [place] [address] *POC GLUCOSE BATTERY Collected: 08/01/2018 Status: F Source: [facility] 8:15 PM [facility] REPOSITORY TYPE CODE TESTS RESULT OUT OF REFERENCE UNITS RANGE LAB GLUP 70-99 mg/dL High Glucose (poc 185 device) Result Comment: Notified RNread back No BRAVE per RN: PATIENT TYPE LAB PCSTYP *POC Capillary SAMPLE TYPE Blood CT CHEST WITHOUT Observed: 08/01/2018 Status: F Source: [facility] CONTRAST 5:47 PM [facility] REPOSITORY EXAM: CT CHEST WITHOUT CONTRAST, 08/01/2018 17:20 PM COMPARISON: June 28, 2018 CLINICAL INDICATIONS: lymphoma, liver cirrhosis, CKD, new oxygen requirement; RELEVANT CLINICAL HISTORY: TECHNIQUE: Axial CT images were reconstructed from the volumetric data set, from the thoracic inlet through the adrenal glands. No intravenous contrast was used. Coronal MIP images were also reconstructed. FINDINGS: Lungs and Pleura: Patchy opacities bilaterally in the upper lobes, mostly ground glass reticular couple of areas of consolidation and some bronchial wall thickening, new since the prior study. Nodule in the right lower lobe measures 6 mm in diameter, stable (image 41).. Tracheobronchial tree: No abnormality. Mediastinum/Jodi: Precarinal lymph node measures 1.1 x 1.4 cm, previously 1.4 x 1.8 cm. A right lower paratracheal node measures 1 x 1.2 cm, previously 1.6 x 2 cm. There is no other measurable enlarged node. Axilla and Supraclavicular Regions: No axillary or supraclavicular adenopathy. Cardiovascular: The cardiac chambers are within normal limits. The pericardium is normal. Atherosclerosis and minimal coronary calcification. Upper Abdomen: Splenomegaly. Atherosclerosis. Status post cholecystectomy. Bones and Soft Tissue: No suspicious osseous lesion. IMPRESSION: 1. Patchy opacities in the upper lobes, most likely related to infection or aspiration. 2. Improved lymphadenopathy. 3. Stable right lower lobe nodule. 4. Splenomegaly. *POC GLUCOSE BATTERY Collected: 08/01/2018 Status: F Source: [facility] 5:12 PM [facility] REPOSITORY TYPE CODE TESTS RESULT OUT OF REFERENCE UNITS RANGE LAB GLUP 70-99 mg/dL High Glucose (poc 155 device) Result Comment: No BRAVE per RN: PATIENT TYPE LAB PCSTYP *POC Capillary SAMPLE TYPE Blood *POC GLUCOSE BATTERY Collected: 08/01/2018 Status: F Source: [facility] 11:48 AM [facility] REPOSITORY TYPE CODE TESTS RESULT OUT OF REFERENCE UNITS RANGE LAB GLUP 70-99 mg/dL High Glucose (poc 190 device) Result Comment: No BRAVE per RN: PATIENT TYPE LAB PCSTYP *POC Capillary SAMPLE TYPE Blood *POC GLUCOSE BATTERY Collected: 08/01/2018 Status: F Source: [facility] 7:26 AM [facility] REPOSITORY TYPE CODE TESTS RESULT OUT OF REFERENCE UNITS RANGE LAB GLUP 70-99 mg/dL High Glucose (poc 148 device) Result Comment: No BRAVE per RN: PATIENT TYPE LAB PCSTYP *POC Capillary SAMPLE TYPE Blood CALCIUM Collected: 08/01/2018 Status: F Source: [facility] 4:57 AM [facility] REPOSITORY TYPE CODE TESTS RESULT OUT OF REFERENCE UNITS RANGE LAB CA 8.6-10.5 mg/dL Low Calcium 8.1 Performed By: #### CA, CHM7, CKB, IPB, MGO, CBCDFC #### [facility] [address] [place] [address] [place] [address] CHEM 7 Collected: 08/01/2018 Status: F Source: [facility] 4:57 AM [facility] REPOSITORY TYPE CODE TESTS RESULT OUT OF REFERENCE UNITS RANGE LAB BUN 7-22 mg/dL BUN High 25 LAB NA 133-143 mmol/L Sodium 142 LAB K 3.5-5.0 mmol/L Potassium 3.9 LAB CL 98-108 mmol/L Chloride 108 LAB CO2 22-30 mmol/L Carbon Dioxide 26 LAB GLUC 70-99 mg/dL Glucose High 146 LAB CREA 0.50-1.20 mg/dL High Creatinine 1.71 LAB GAP 7-17 mmol/L Anion Gap 12 LAB BC BUN/CREA Ratio 15 LAB [facility] 278-305 mOsm/kg Osmolality 304 (Calc) LAB GFR >60 mL/min/1.73 Low sqM Est GFR,non 30 Estonian LAB GFRA >60 mL/min/1.73 Low sqM Est GFR, 36 Performed By: #### CA, CHM7, CKB, IPB, MGO, CBCDFC #### [facility] [address] [place] [address] CK Collected: 08/01/2018 Status: F Source: [facility] 4:57 AM [facility] REPOSITORY TYPE CODE TESTS RESULT OUT OF REFERENCE UNITS RANGE LAB CK 30-184 U/L Creatine 49 Kinase Performed By: #### CA, CHM7, CKB, IPB, MGO, CBCDFC #### [facility] [address] [place] [address] INORGANIC PHOSPHATE Collected: 08/01/2018 Status: F Source: [facility] 4:57 AM [facility] REPOSITORY TYPE CODE TESTS RESULT OUT OF REFERENCE UNITS RANGE LAB IP 2.2-4.6 mg/dL Inorg Phosphate 3.1 Performed By: #### CA, CHM7, CKB, IPB, MGO, CBCDFC #### [facility] [address] [place] [address] [address] [place] [address] MAGNESIUM Collected: 08/01/2018 Status: F Source: [facility] 4:57 AM [facility] REPOSITORY TYPE CODE TESTS RESULT OUT OF REFERENCE UNITS RANGE LAB MG 1.6-2.6 mg/dL Magnesium 1.9 Performed By: #### CA, CHM7, CKB, IPB, MGO, CBCDFC #### [facility] [address] [place] [address] [facility] [address] [place], [place] [address] CBC,PLATELET,DIFFERENTIAL - CCL Collected: Status: F Source: [facility] 08/01/2018 4:57 AM [facility] REPOSITORY TYPE CODE TESTS RESULT OUT OF REFERENCE UNITS RANGE LAB WBC 3.99-11.19 K/uL WBC Count 7.64 LAB RBC 3.91-5.04 M/uL RBC Count 3.12 Low LAB HGB 11.4-15.2 g/dL Hemoglobin 8.9 Low LAB HCT 34.9-44.3 % Hematocrit 28.4 Low LAB MCV 79.6-97.7 fL Mean Cell 91.0 Volume LAB MCH 25.9-33.9 pg Mean Cell Hgb 28.5 LAB MCHC 31.4-35.9 g/dL Mean Cell Hgb 31.3 Low Conc LAB RDW 10.8-14.9 % RBC 22.5 High Distribution LAB PLT 150-393 K/uL Platelet Count 86 Low LAB MPV 8.5-12.2 fL Mean Platelet 10.3 Volume LAB NRBC 0.0-0.2 /100 WBC NUCLEATED RBC 0.4 High LAB DTYPE DIFFERENTIAL Manual TYPE Differential LAB SEGS % NEUTROPHIL 82.1 SEGMENTED LAB LYM % LYMPHOCYTE % 7.1 LAB MON % MONOCYTE % 3.6 LAB EOS % *EOSINOPHIL % 0.0 LAB BASO % BASOPHIL % 1.8 LAB BAND % BAND 1.8 NEUTROPHIL % LAB MYEL % MYELOCYTE % 3.6 LAB SBANS 1.64-7.28 K/uL SEGS + 6.41 Bands,Absolute LAB ALYM 1.16-3.51 K/uL Abs Lymph 0.54 Low LAB AMONO 0.22-0.87 K/uL Abs Laurel 0.28 LAB AEOS 0.00-0.42 K/uL Abs Eos 0.00 LAB ABASO 0.00-0.15 K/uL Abs Baso 0.14 LAB AMYEL 0.00 K/uL Abs Myelo 0.28 High LAB POLYCH POLYCHROMASIA 1+ LAB TEARDR TEARDROP CELLS Present LAB PLTEST PLATELET ESTIMATE Automated platelet count confirmed by manual slide review. Performed By: #### CA, CHM7, CKB, IPB, MGO, CBCDFC #### [facility] [address] [place] [address] [facility] [address] [place] [address] XR CHEST PORTABLE Observed: 07/31/2018 Status: F Source: [facility] 8:23 PM [facility] REPOSITORY EXAM: XR CHEST PORTABLE, 07/31/2018 19:25 PM COMPARISON: July 26, 2018. CLINICAL INDICATIONS: New oxygen requirements, desatted to 76% on RA RELEVANT CLINICAL HISTORY: FINDINGS: (Adequate technique) Tubes, Lines, and life support hardware: There is a right anterior chest wall ChemoPort catheter with its tip at the atriocaval junction. Lungs: Nodular and patchy opacities in the peripheral aspects of the bilateral lungs. There are no pleural effusions. There is no pneumothorax. Cardiac, mediastinum, and hilum: The cardiomediastinal silhouette is within normal limits. ... Pulmonary Vessels: Normal, without PVH Impression: 1. New right anterior chest wall port catheter tip at the atriocaval junction. 2. Patchy nodular opacities in the bilateral lungs. *POC GLUCOSE BATTERY Collected: 07/31/2018 Status: F Source: [facility] 8:15 PM [facility] REPOSITORY TYPE CODE TESTS RESULT OUT OF REFERENCE UNITS RANGE LAB GLUP 70-99 mg/dL High Glucose (poc 175 device) Result Comment: No BRAVE per RN: PATIENT TYPE LAB PCSTYP *POC Capillary SAMPLE TYPE Blood *POC GLUCOSE BATTERY Collected: 07/31/2018 Status: F Source: [facility] 5:07 PM [facility] REPOSITORY TYPE CODE TESTS RESULT OUT OF REFERENCE UNITS RANGE LAB GLUP 70-99 mg/dL High Glucose (poc 215 device) Result Comment: No BRAVE per RN: PATIENT TYPE LAB PCSTYP *POC Capillary SAMPLE TYPE Blood *POC GLUCOSE BATTERY Collected: 07/31/2018 Status: F Source: [facility] 11:04 AM [facility] REPOSITORY TYPE CODE TESTS RESULT OUT OF REFERENCE UNITS RANGE LAB GLUP 70-99 mg/dL High Glucose (poc 164 device) Result Comment: No BRAVE per RN: PATIENT TYPE LAB PCSTYP *POC Capillary SAMPLE TYPE Blood *POC GLUCOSE BATTERY Collected: 07/31/2018 Status: F Source: [facility] 7:41 AM [facility] REPOSITORY TYPE CODE TESTS RESULT OUT OF REFERENCE UNITS RANGE LAB GLUP 70-99 mg/dL High Glucose (poc 154 device) Result Comment: No BRAVE per RN: PATIENT TYPE LAB PCSTYP *POC Capillary SAMPLE TYPE Blood *POC GLUCOSE BATTERY Collected: 07/31/2018 Status: F Source: [facility] 6:50 AM [facility] REPOSITORY TYPE CODE TESTS RESULT OUT OF REFERENCE UNITS RANGE LAB GLUP 70-99 mg/dL High Glucose (poc 140 device) Result Comment: No BRAVE per RN: PATIENT TYPE LAB PCSTYP *POC Capillary SAMPLE TYPE Blood AMMONIA Collected: 07/31/2018 Status: F Source: [facility] 4:28 AM [facility] REPOSITORY TYPE CODE TESTS RESULT OUT OF REFERENCE UNITS RANGE LAB NH3 6-47 umol/L High Ammonia 49 Performed By: #### NH3B #### [facility] [address] [place] [id number] [place] [address] [place] [id number] CALCIUM Collected: 07/31/2018 Status: F Source: [facility] 4:28 [facility] REPOSITORY TYPE CODE TESTS RESULT OUT OF REFERENCE UNITS RANGE LAB CA 8.6-10.5 mg/dL Low Calcium 7.7 Performed By: #### CA, CHM7, HFP, IPB, MGO, CBCDFC #### [facility] [address] [place] [id number] [facility] [address] [place] [address] [id number] CHEM 7 Collected: 07/31/2018 Status: F Source: [facility] 4:28 [facility] REPOSITORY TYPE CODE TESTS RESULT OUT OF REFERENCE UNITS RANGE LAB BUN 7-22 mg/dL BUN High 24 LAB NA 133-143 mmol/L Sodium 141 LAB K 3.5-5.0 mmol/L Potassium 3.8 LAB CL 98-108 mmol/L Chloride 107 LAB CO2 22-30 mmol/L Carbon Dioxide 25 LAB GLUC 70-99 mg/dL Glucose High 145 LAB CREA 0.50-1.20 mg/dL High Creatinine 1.76 LAB GAP 7-17 mmol/L Anion Gap 13 LAB BC BUN/CREA Ratio 14 LAB [facility] 278-305 mOsm/kg Osmolality 301 (Calc) LAB GFR >60 mL/min/1.73 Low sqM Est GFR,non 29 Estonian LAB GFRA >60 mL/min/1.73 Low sqM Est GFR, 35 Performed By: #### CA, CHM7, HFP, IPB, MGO, CBCDFC #### [facility] [address] [place] [id number] [facility] [address] [place] [address] [id number] HEPATIC FUNCTION Collected: 07/31/2018 Status: F Source: [facility] 4:28 [facility] REPOSITORY TYPE CODE TESTS RESULT OUT OF REFERENCE UNITS RANGE LAB ALB 3.5-5.0 g/dL Low Albumin 2.4 LAB BILD <0.3 mg/dL Bilirubin High Direct 0.6 LAB BILT <1.5 mg/dL Bilirubin Total 1.3 LAB ALP 32-126 U/L Alkaline High Phosphatase 160 LAB ALT 9-48 U/L ALT 11 LAB AST 14-40 U/L AST 17 LAB TP 6.4-8.3 g/dL Low Total Protein 4.9 Performed By: #### CA, CHM7, HFP, IPB, MGO, CBCDFC #### [facility] [address] [place] [id number] [place] [address] [place] [address] [id number] INORGANIC PHOSPHATE Collected: 07/31/2018 Status: F Source: [facility] 4:28 [facility] REPOSITORY TYPE CODE TESTS RESULT OUT OF REFERENCE UNITS RANGE LAB IP 2.2-4.6 mg/dL Inorg Phosphate 3.3 Performed By: #### CA, CHM7, HFP, IPB, MGO, CBCDFC #### [facility] [address] [place] [address] 437[address] [facility] [address] [place] [address] [id number] MAGNESIUM Collected: 07/31/2018 Status: F Source: [facility] 4:28 [facility] REPOSITORY TYPE CODE TESTS RESULT OUT OF REFERENCE UNITS RANGE LAB MG 1.6-2.6 mg/dL Magnesium 1.9 Performed By: #### CA, CHM7, HFP, IPB, MGO, CBCDFC #### [facility] [address] [place] [address] [facility] [address] [place], [place] [address] CBC,PLATELET,DIFFERENTIAL - CCL Collected: Status: F Source: [facility] 07/31/2018 4:28 AM [facility] REPOSITORY TYPE CODE TESTS RESULT OUT OF REFERENCE UNITS RANGE LAB WBC 3.99-11.19 K/uL WBC Count 6.32 LAB RBC 3.91-5.04 M/uL RBC Count 2.85 Low LAB HGB 11.4-15.2 g/dL Hemoglobin 8.1 Low LAB HCT 34.9-44.3 % Hematocrit 25.5 Low LAB MCV 79.6-97.7 fL Mean Cell 89.5 Volume LAB MCH 25.9-33.9 pg Mean Cell Hgb 28.4 LAB MCHC 31.4-35.9 g/dL Mean Cell Hgb 31.8 Conc LAB RDW 10.8-14.9 % RBC 22.4 High Distribution LAB PLT 150-393 K/uL Platelet Count 81 Low LAB MPV 8.5-12.2 fL Mean Platelet 10.9 Volume LAB NRBC 0.0-0.2 /100 WBC NUCLEATED RBC 0.5 High LAB DTYPE DIFFERENTIAL Manual TYPE Differential LAB SEGS % NEUTROPHIL 72.8 SEGMENTED LAB LYM % LYMPHOCYTE % 10.5 LAB MON % MONOCYTE % 9.6 LAB EOS % *EOSINOPHIL % 0.0 LAB BASO % BASOPHIL % 0.0 LAB BAND % BAND 1.8 NEUTROPHIL % LAB META % METAMYELOCYTE 3.5 % LAB MYEL % MYELOCYTE % 1.8 LAB SBANS 1.64-7.28 K/uL SEGS + 4.71 Bands,Absolute LAB ALYM 1.16-3.51 K/uL Abs Lymph 0.66 Low LAB AMONO 0.22-0.87 K/uL Abs Laurel 0.61 LAB AEOS 0.00-0.42 K/uL Abs Eos 0.00 LAB ABASO 0.00-0.15 K/uL Abs Baso 0.00 LAB AMETA 0.00 K/uL Abs Jonancy 0.22 High LAB AMYEL 0.00 K/uL Abs Myelo 0.11 High LAB OVALO OVALOCYTES Present LAB POLYCH POLYCHROMASIA 1+ LAB PLTEST PLATELET ESTIMATE Automated platelet count confirmed by manual slide review. LAB RMORPH Red Cell RBC Morphology indices confirmed by manual smear review. Performed By: #### CA, CHM7, HFP, IPB, MGO, CBCDFC #### [facility] [address] [place] [id number] [place] [address] [address] [place] [address] *POC GLUCOSE BATTERY Collected: 07/30/2018 Status: F Source: [facility] 9:14 PM [facility] REPOSITORY TYPE CODE TESTS RESULT OUT OF REFERENCE UNITS RANGE LAB GLUP 70-99 mg/dL High Glucose (poc 227 device) Result Comment: No BRAVE per RN: PATIENT TYPE LAB PCSTYP *POC Capillary SAMPLE TYPE Blood *POC GLUCOSE BATTERY Collected: 07/30/2018 Status: F Source: [facility] 4:45 PM [facility] REPOSITORY TYPE CODE TESTS RESULT OUT OF REFERENCE UNITS RANGE LAB GLUP 70-99 mg/dL High Glucose (poc 173 device) Result Comment: No BRAVE per RN: PATIENT TYPE LAB PCSTYP *POC Capillary SAMPLE TYPE Blood *POC GLUCOSE BATTERY Collected: 07/30/2018 Status: F Source: [facility] 12:39 PM [facility] REPOSITORY TYPE CODE TESTS RESULT OUT OF REFERENCE UNITS RANGE LAB GLUP 70-99 mg/dL High Glucose (poc 138 device) Result Comment: No BRAVE per RN: PATIENT TYPE LAB PCSTYP *POC Capillary SAMPLE TYPE Blood MEDIPORT PLACEMENT Observed: 07/30/2018 Status: F Source: [facility] 12:08 PM [facility] REPOSITORY EXAM: IR MEDIPORT PLACEMENT, 07/30/2018 11:57 AM DUAL LUMEN CLINICAL INDICATIONS: C83.30:Diffuse large B-cell lymphoma, unspecified body region MEDICATIONS: 10:55 AM 07/30/18 fentaNYL (SUBLIMAZE) injection 300 mcg 50 mcg Route: Intravenous; 10:55 AM 07/30/18 midazolam (VERSED) injection 10 mg 1 mg Route: Intravenous; 11:15 AM 07/30/18 fentaNYL (SUBLIMAZE) injection 300 mcg 50 mcg Route: Intravenous; 11:15 AM 07/30/18 midazolam (VERSED) injection 10 mg 1 mg Route: Intravenous; 11:21 AM 07/30/18 midazolam (VERSED) injection 10 mg 1 mg Route: Intravenous; 11:21 AM 07/30/18 fentaNYL (SUBLIMAZE) injection 300 mcg 50 mcg Route: Intravenous; 11:23 AM 07/30/18 lidocaine-epinephrine 2 %-[id number] injection 20 mL 17 mL Route: Other; 11:27 AM 07/30/18 ceFAZolin (ANCEF) injection 1 g 1 g Route: Irrigation; 11:35 AM 07/30/18 heparin 100 UNIT/ML flush injection 500 Units 500 Units Route: Intravenous; 11:35 AM 07/30/18 heparin 100 UNIT/ML flush injection 500 Units 500 Units Route: Intravenous; Total Fluoro Time: 0.2 minutes Operators: Tyrell Reilly M.D. Consent: Following discussion of the risks, benefits and alternatives of the procedure, written informed consent was obtained. Moderate Sedation: I performed Moderate Sedation which included the presence of a nurse that assisted in monitoring the patients level of consciousness and physiological status. After administration of sedative medication(s), I spent 20 minutes of continuous rubh-di-gbak time with the patient prior to the timeout. COMPARISON: No prior studies available for comparison. TIME OUT: Prior to the procedure a time out was performed in the presence of the patient and all personnel involved in this case. The patient identity, procedure type, procedure side/site, and allergies were verified. ......................................................... TECHNIQUE: Position: The patient was transferred to the IR laboratory and was positioned supine on the procedural table. Venous Entry: Real-time ultrasound examination of the neck demonstrated a patent right internal jugular vein, which was documented. The right internal jugular vein was chosen for placement of the catheter. The neck and anterior chest were prepped and draped utilizing maximum sterile barrier technique. This consisted of cap, mask, hand hygiene, sterile gown and gloves, 2% Chlorhexidine solution for cutaneous antisepsis and occlusive sterile draping of the field. Procedure: Using direct ultrasound guidance, access was gained into the vein and an image was saved in the imaging archive system for documentation. A subcutaneous pocket was created over the anterior chest wall. A tunnel was created between the pocket and the venotomy site. The catheter was carried through the tunnel. It was clamped using two hemostats. It was then inserted under fluoroscopy. The tip of the catheter was positioned in the right atrium. The catheter was then cut to appropriate length and subsequently attached to the port. The port was placed within the pocket in standard fashion. The pocket was closed in two layers with the most superficial layer being a subcuticular running suture using absorbable suture. The venotomy site was closed using absorbable suture. The port was aspirated and flushed successfully. Access to the port was maintained. A sterile, occlusive dressing was placed on the skin over the catheter entry site. Sterile adhesive strips were applied to the suture lines and the venotomy site. FINDINGS: The final position of the tip of the catheter is in the right atrium. IMPRESSION: Successful placement of a dual-lumen PowerPort via the right internal jugular vein. The port is ready for use. Most Recent Value Fluoro time: 0.2 minutes Rad Dose: 1 mGy IR CoAlign Event Details User 10:45 AM 07/30/18 Timeout: Sign-in Verified by Rashmi Yanez RN at 07/30/2018 10:56 AM KP 10:55 AM 07/30/18 fentaNYL (SUBLIMAZE) injection 300 mcg 50 mcg Given Rate: 0 Route: Intravenous KP 10:55 AM 07/30/18 midazolam (VERSED) injection 10 mg 1 mg Given Rate: 0 Route: Intravenous KP 11:15 AM 07/30/18 Timeout: TimeOut Verified by Rashmi Yanez RN at 07/30/2018 11:15 AM KP 11:15 AM 07/30/18 fentaNYL (SUBLIMAZE) injection 300 mcg 50 mcg Given Rate: 0 Route: Intravenous KP 11:15 AM 07/30/18 midazolam (VERSED) injection 10 mg 1 mg Given Rate: 0 Route: Intravenous KP 11:21 AM 07/30/18 midazolam (VERSED) injection 10 mg 1 mg Given Rate: 0 Route: Intravenous KP 11:21 AM 07/30/18 fentaNYL (SUBLIMAZE) injection 300 mcg 50 mcg Given Rate: 0 Route: Intravenous KP 11:23 AM 07/30/18 lidocaine-epinephrine 2 %-[id number] injection 20 mL 17 mL Given Rate: 0 Route: Other GG 11:27 AM 07/30/18 ceFAZolin (ANCEF) injection 1 g 1 g Given Rate: 0 Route: Irrigation GG 11:35 AM 07/30/18 heparin 100 UNIT/ML flush injection 500 Units 500 Units Given Rate: 0 Route: Intravenous GG 11:35 AM 07/30/18 heparin 100 UNIT/ML flush injection 500 Units 500 Units Given Rate: 0 Route: Intravenous GG 11:40 AM 07/30/18 Timeout: Sign-out Verified by Rashmi Yanez RN at 07/30/2018 11:40 AM IR Physician Event Details User 10:45 AM 07/30/18 Timeout: Sign-in Verified by Rashmi Yanez RN at 07/30/2018 10:56 AM 11:15 AM 07/30/18 Timeout: TimeOut Verified by Rashmi Yanez RN at 07/30/2018 11:15 AM 11:40 AM 07/30/18 Timeout: Sign-out Verified by Rashmi Yanez RN at 07/30/2018 11:40 AM *POC GLUCOSE BATTERY Collected: 07/30/2018 Status: F Source: [facility] 8:24 AM [facility] REPOSITORY TYPE CODE TESTS RESULT OUT OF REFERENCE UNITS RANGE LAB GLUP 70-99 mg/dL High Glucose (poc 107 device) Result Comment: No BRAVE per RN: PATIENT TYPE LAB PCSTYP *POC Capillary SAMPLE TYPE Blood CALCIUM Collected: 07/30/2018 Status: F Source: [facility] 1:17 AM [facility] REPOSITORY TYPE CODE TESTS RESULT OUT OF REFERENCE UNITS RANGE LAB CA 8.6-10.5 mg/dL Low Calcium 7.8 Performed By: #### CA, CHM7, IPB, MGO, CBCDFC #### [facility] [address] [place] [address] [facility] [address] [place] [address] CHEM 7 Collected: 07/30/2018 Status: F Source: [facility] 1:17 AM [facility] REPOSITORY TYPE CODE TESTS RESULT OUT OF REFERENCE UNITS RANGE LAB BUN 7-22 mg/dL BUN High 23 LAB NA 133-143 mmol/L Sodium 140 LAB K 3.5-5.0 mmol/L Potassium 3.6 LAB CL 98-108 mmol/L Chloride 107 LAB CO2 22-30 mmol/L Carbon Dioxide 24 LAB GLUC 70-99 mg/dL Glucose High 171 LAB CREA 0.50-1.20 mg/dL High Creatinine 1.83 LAB GAP 7-17 mmol/L Anion Gap 13 LAB BC BUN/CREA Ratio 13 LAB [facility] 278-305 mOsm/kg Osmolality 300 (Calc) LAB GFR >60 mL/min/1.73 Low sqM Est GFR,non 28 Estonian LAB GFRA >60 mL/min/1.73 Low sqM Est GFR, 34 Performed By: #### CA, CHM7, IPB, MGO, CBCDFC #### [facility] [address] [place] [address] [place] [address] INORGANIC PHOSPHATE Collected: 07/30/2018 Status: F Source: [facility] 1:17 AM [facility] REPOSITORY TYPE CODE TESTS RESULT OUT OF REFERENCE UNITS RANGE LAB IP 2.2-4.6 mg/dL Inorg Phosphate 2.7 Performed By: #### CA, CHM7, IPB, MGO, CBCDFC #### [facility] [address] [place] [address] [place] [address] MAGNESIUM Collected: 07/30/2018 Status: F Source: [facility] 1:17 AM [facility] REPOSITORY TYPE CODE TESTS RESULT OUT OF REFERENCE UNITS RANGE LAB MG 1.6-2.6 mg/dL Magnesium 1.8 Performed By: #### CA, CHM7, IPB, MGO, CBCDFC #### [facility] [address] [place] [address] [place] [address] CBC,PLATELET,DIFFERENTIAL - CCL Collected: Status: F Source: [facility] 07/30/2018 1:17 AM [facility] REPOSITORY TYPE CODE TESTS RESULT OUT OF REFERENCE UNITS RANGE LAB WBC 3.99-11.19 K/uL WBC Count 5.71 LAB RBC 3.91-5.04 M/uL RBC Count 2.84 Low LAB HGB 11.4-15.2 g/dL Hemoglobin 8.1 Low LAB HCT 34.9-44.3 % Hematocrit 24.7 Low LAB MCV 79.6-97.7 fL Mean Cell 87.0 Volume LAB MCH 25.9-33.9 pg Mean Cell Hgb 28.5 LAB MCHC 31.4-35.9 g/dL Mean Cell Hgb 32.8 Conc LAB RDW 10.8-14.9 % RBC 21.9 High Distribution LAB PLT 150-393 K/uL Platelet Count 66 Low LAB MPV 8.5-12.2 fL Mean Platelet 10.5 Volume LAB NRBC 0.0-0.2 /100 WBC NUCLEATED RBC 0.0 LAB DTYPE DIFFERENTIAL Manual TYPE Differential LAB SEGS % NEUTROPHIL 65.7 SEGMENTED LAB LYM % LYMPHOCYTE % 13.8 LAB MON % MONOCYTE % 6.9 LAB EOS % *EOSINOPHIL % 1.7 LAB BASO % BASOPHIL % 1.7 LAB BAND % BAND 3.4 NEUTROPHIL % LAB META % METAMYELOCYTE 3.4 % LAB MYEL % MYELOCYTE % 3.4 LAB SBANS 1.64-7.28 K/uL SEGS + 3.95 Bands,Absolute LAB ALYM 1.16-3.51 K/uL Abs Lymph 0.79 Low LAB AMONO 0.22-0.87 K/uL Abs Laurel 0.39 LAB AEOS 0.00-0.42 K/uL Abs Eos 0.10 LAB ABASO 0.00-0.15 K/uL Abs Baso 0.10 LAB AMETA 0.00 K/uL Abs Jonancy 0.19 High LAB AMYEL 0.00 K/uL Abs Myelo 0.19 High LAB OVALO OVALOCYTES Present LAB POLYCH POLYCHROMASIA 1+ LAB PLTEST PLATELET ESTIMATE Automated platelet count confirmed by manual slide review. Performed By: #### CA, CHM7, IPB, MGO, CBCDFC #### [facility] [address] [place] [id number] [facility] [address] [place] [address] *POC GLUCOSE BATTERY Collected: 07/29/2018 Status: F Source: [facility] 10:34 PM [facility] REPOSITORY TYPE CODE TESTS RESULT OUT OF REFERENCE UNITS RANGE LAB GLUP 70-99 mg/dL High Glucose (poc 196 device) Result Comment: No BRAVE per RN: PATIENT TYPE LAB PCSTYP *POC Capillary SAMPLE TYPE Blood *POC GLUCOSE BATTERY Collected: 07/29/2018 Status: F Source: [facility] 3:44 PM [facility] REPOSITORY TYPE CODE TESTS RESULT OUT OF REFERENCE UNITS RANGE LAB GLUP 70-99 mg/dL High Glucose (poc 184 device) Result Comment: No BRAVE per RN: PATIENT TYPE LAB PCSTYP *POC Capillary SAMPLE TYPE Blood *POC GLUCOSE BATTERY Collected: 07/29/2018 Status: F Source: [facility] 11:07 AM [facility] REPOSITORY TYPE CODE TESTS RESULT OUT OF REFERENCE UNITS RANGE LAB GLUP 70-99 mg/dL High Glucose (poc 175 device) Result Comment: No BRAVE per RN: PATIENT TYPE LAB PCSTYP *POC Capillary SAMPLE TYPE Blood *POC GLUCOSE BATTERY Collected: 07/29/2018 Status: F Source: [facility] 7:51 AM [facility] REPOSITORY TYPE CODE TESTS RESULT OUT OF REFERENCE UNITS RANGE LAB GLUP 70-99 mg/dL High Glucose (poc 123 device) Result Comment: No BRAVE per RN: PATIENT TYPE LAB PCSTYP *POC Capillary SAMPLE TYPE Blood CALCIUM Collected: 07/29/2018 Status: F Source: [facility] 3:00 AM [facility] REPOSITORY TYPE CODE TESTS RESULT OUT OF REFERENCE UNITS RANGE LAB CA 8.6-10.5 mg/dL Low Calcium 8.2 Performed By: #### CA, CHM7, HFP, IPB, MGO, CBCDFC #### [facility] [place] [address] CHEM 7 Collected: 07/29/2018 Status: F Source: [facility] 3:00 AM [facility] REPOSITORY TYPE CODE TESTS RESULT OUT OF REFERENCE UNITS RANGE LAB BUN 7-22 mg/dL BUN High 25 LAB NA 133-143 mmol/L Sodium 139 LAB K 3.5-5.0 mmol/L Potassium 3.6 LAB CL 98-108 mmol/L Chloride 106 LAB CO2 22-30 mmol/L Carbon Dioxide 24 LAB GLUC 70-99 mg/dL Glucose High 139 LAB CREA 0.50-1.20 mg/dL High Creatinine 1.88 LAB GAP 7-17 mmol/L Anion Gap 13 LAB BC BUN/CREA Ratio 13 LAB [facility]SM[facility] 278-305 mOsm/kg Osmolality 297 (Calc) LAB GFR >60 mL/min/1.73 Low sqM Est GFR,non 27 Estonian LAB GFRA >60 mL/min/1.73 Low sqM Est GFR, 33 Performed By: #### CA, CHM7, HFP, IPB, MGO, CBCDFC #### [facility] [address] [place] [id number] [facility] [address] [place] [id number] HEPATIC FUNCTION Collected: 07/29/2018 Status: F Source: [facility] 3:00 AM [facility] REPOSITORY TYPE CODE TESTS RESULT OUT OF REFERENCE UNITS RANGE LAB ALB 3.5-5.0 g/dL Low Albumin 2.6 LAB BILD <0.3 mg/dL Bilirubin High Direct 0.8 LAB BILT <1.5 mg/dL Bilirubin High Total 1.7 LAB ALP 32-126 U/L Alkaline High Phosphatase 147 LAB ALT 9-48 U/L ALT 11 LAB AST 14-40 U/L AST 17 LAB TP 6.4-8.3 g/dL Low Total Protein 5.1 Performed By: #### CA, CHM7, HFP, IPB, MGO, CBCDFC #### [facility] [address] [place] [id number] [place] [address] [place] [id number] INORGANIC PHOSPHATE Collected: 07/29/2018 Status: F Source: [facility] 3:00 AM [facility] REPOSITORY TYPE CODE TESTS RESULT OUT OF REFERENCE UNITS RANGE LAB IP 2.2-4.6 mg/dL Inorg Phosphate 2.8 Performed By: #### CA, CHM7, HFP, IPB, MGO, CBCDFC #### [facility] [address] [place] [id number] [facility] [address] [place] [id number] MAGNESIUM Collected: 07/29/2018 Status: F Source: [facility] 3:00 AM [facility] REPOSITORY TYPE CODE TESTS RESULT OUT OF REFERENCE UNITS RANGE LAB MG 1.6-2.6 mg/dL Magnesium 1.8 Performed By: #### CA, CHM7, HFP, IPB, MGO, CBCDFC #### [facility] [address] [place] [id number] [facility] [address] [place], [place] [address] CBC,PLATELET,DIFFERENTIAL - CCL Collected: Status: F Source: [facility] 07/29/2018 3:00 AM [facility] REPOSITORY TYPE CODE TESTS RESULT OUT OF REFERENCE UNITS RANGE LAB WBC 3.99-11.19 K/uL WBC Count 6.57 LAB RBC 3.91-5.04 M/uL RBC Count 3.12 Low LAB HGB 11.4-15.2 g/dL Hemoglobin 8.8 Low LAB HCT 34.9-44.3 % Hematocrit 27.7 Low LAB MCV 79.6-97.7 fL Mean Cell 88.8 Volume LAB MCH 25.9-33.9 pg Mean Cell Hgb 28.2 LAB MCHC 31.4-35.9 g/dL Mean Cell Hgb 31.8 Conc LAB RDW 10.8-14.9 % RBC 22.5 High Distribution LAB PLT 150-393 K/uL Platelet Count 64 Low LAB MPV 8.5-12.2 fL Mean Platelet 9.9 Volume LAB NRBC 0.0-0.2 /100 WBC NUCLEATED RBC 0.8 High LAB DTYPE DIFFERENTIAL Manual TYPE Differential LAB SEGS % NEUTROPHIL 60.2 SEGMENTED LAB LYM % LYMPHOCYTE % 12.4 LAB MON % MONOCYTE % 16.8 LAB EOS % *EOSINOPHIL % 0.0 LAB BASO % BASOPHIL % 0.0 LAB BAND % BAND 4.4 NEUTROPHIL % LAB META % METAMYELOCYTE 3.5 % LAB MYEL % MYELOCYTE % 2.7 LAB SBANS 1.64-7.28 K/uL SEGS + 4.24 Bands,Absolute LAB ALYM 1.16-3.51 K/uL Abs Lymph 0.81 Low LAB AMONO 0.22-0.87 K/uL Abs Laurel 1.10 High LAB AEOS 0.00-0.42 K/uL Abs Eos 0.00 LAB ABASO 0.00-0.15 K/uL Abs Baso 0.00 LAB AMETA 0.00 K/uL Abs Jonancy 0.23 High LAB AMYEL 0.00 K/uL Abs Myelo 0.18 High LAB POLYCH POLYCHROMASIA 1+ LAB PLTEST PLATELET ESTIMATE Automated platelet count confirmed by manual slide review. Performed By: #### CA, CHM7, HFP, IPB, MGO, CBCDFC #### [facility] [address] [place] [address] [facility] [address] [place], [place] [address] *POC GLUCOSE BATTERY Collected: 07/28/2018 Status: F Source: [facility] 9:08 PM [facility] REPOSITORY TYPE CODE TESTS RESULT OUT OF REFERENCE UNITS RANGE LAB GLUP 70-99 mg/dL High Glucose (poc 219 device) Result Comment: No BRAVE per RN: PATIENT TYPE LAB PCSTYP *POC Capillary SAMPLE TYPE Blood *POC GLUCOSE BATTERY Collected: 07/28/2018 Status: F Source: [facility] 4:10 PM [facility] REPOSITORY TYPE CODE TESTS RESULT OUT OF REFERENCE UNITS RANGE LAB GLUP 70-99 mg/dL High Glucose (poc 165 device) Result Comment: Notified RNread back No BRAVE per RN: PATIENT TYPE LAB PCSTYP *POC Capillary SAMPLE TYPE Blood *POC GLUCOSE BATTERY Collected: 07/28/2018 Status: F Source: [facility] 11:51 AM [facility] REPOSITORY TYPE CODE TESTS RESULT OUT OF REFERENCE UNITS RANGE LAB GLUP 70-99 mg/dL High Glucose (poc 227 device) Result Comment: No BRAVE per RN: PATIENT TYPE LAB PCSTYP *POC Capillary SAMPLE TYPE Blood *POC GLUCOSE BATTERY Collected: 07/28/2018 Status: F Source: [facility] 8:02 AM [facility] REPOSITORY TYPE CODE TESTS RESULT OUT OF REFERENCE UNITS RANGE LAB GLUP 70-99 mg/dL High Glucose (poc 122 device) Result Comment: No BRAVE per RN: PATIENT TYPE LAB PCSTYP *POC Capillary SAMPLE TYPE Blood CALCIUM Collected: 07/28/2018 Status: F Source: [facility] 4:01 AM [facility] REPOSITORY TYPE CODE TESTS RESULT OUT OF REFERENCE UNITS RANGE LAB CA 8.6-10.5 mg/dL Low Calcium 8.1 Performed By: #### CA, CHM7, IPB, MGO, CBCDFC #### [facility] [address] [place] [id number] [facility] [address] [place] [id number] CHEM 7 Collected: 07/28/2018 Status: F Source: [facility] 4:01 AM [facility] REPOSITORY TYPE CODE TESTS RESULT OUT OF REFERENCE UNITS RANGE LAB BUN 7-22 mg/dL BUN High 27 LAB NA 133-143 mmol/L Sodium 139 LAB K 3.5-5.0 mmol/L Potassium 3.7 LAB CL 98-108 mmol/L Chloride 107 LAB CO2 22-30 mmol/L Carbon Dioxide 23 LAB GLUC 70-99 mg/dL Glucose High 142 LAB CREA 0.50-1.20 mg/dL High Creatinine 1.99 LAB GAP 7-17 mmol/L Anion Gap 13 LAB BC BUN/CREA Ratio 14 LAB [facility] 278-305 mOsm/kg Osmolality 298 (Calc) LAB GFR >60 mL/min/1.73 Low sqM Est GFR,non 25 Estonian LAB GFRA >60 mL/min/1.73 Low sqM Est GFR, 31 Performed By: #### CA, CHM7, IPB, MGO, CBCDFC #### [facility] [address] [place] [address] [address] [address] INORGANIC PHOSPHATE Collected: 07/28/2018 Status: F Source: [facility] 4:01 AM [facility] REPOSITORY TYPE CODE TESTS RESULT OUT OF REFERENCE UNITS RANGE LAB IP 2.2-4.6 mg/dL Inorg Phosphate 2.6 Performed By: #### CA, CHM7, IPB, MGO, CBCDFC #### [facility] [address] [address] MAGNESIUM Collected: 07/28/2018 Status: F Source: [facility] 4:01 [facility] REPOSITORY TYPE CODE TESTS RESULT OUT OF REFERENCE UNITS RANGE LAB MG 1.6-2.6 mg/dL Magnesium 1.8 Performed By: #### CA, CHM7, IPB, MGO, CBCDFC #### [facility] [address] [address] CBC,PLATELET,DIFFERENTIAL - CCL Collected: Status: F Source: [facility] 07/28/2018 4:01 [facility] REPOSITORY TYPE CODE TESTS RESULT OUT OF REFERENCE UNITS RANGE LAB WBC 3.99-11.19 K/uL WBC Count 5.89 LAB RBC 3.91-5.04 M/uL RBC Count 2.91 Low LAB HGB 11.4-15.2 g/dL Hemoglobin 8.2 Low LAB HCT 34.9-44.3 % Hematocrit 25.7 Low LAB MCV 79.6-97.7 fL Mean Cell 88.3 Volume LAB MCH 25.9-33.9 pg Mean Cell Hgb 28.2 LAB MCHC 31.4-35.9 g/dL Mean Cell Hgb 31.9 Conc LAB RDW 10.8-14.9 % RBC 22.1 High Distribution LAB PLT 150-393 K/uL Platelet Count 67 Low LAB MPV 8.5-12.2 fL Mean Platelet 10.0 Volume LAB NRBC 0.0-0.2 /100 WBC NUCLEATED RBC 1.4 High LAB DTYPE DIFFERENTIAL Manual TYPE Differential LAB SEGS % NEUTROPHIL 68.7 SEGMENTED LAB LYM % LYMPHOCYTE % 17.4 LAB MON % MONOCYTE % 7.0 LAB EOS % *EOSINOPHIL % 0.9 LAB BASO % BASOPHIL % 0.0 LAB BAND % BAND 1.7 NEUTROPHIL % LAB META % METAMYELOCYTE 1.7 % LAB MYEL % MYELOCYTE % 1.7 LAB PRO % PROMYELOCYTES 0.9 LAB SBANS 1.64-7.28 K/uL SEGS + 4.15 Bands,Absolute LAB ALYM 1.16-3.51 K/uL Abs Lymph 1.02 Low LAB AMONO 0.22-0.87 K/uL Abs Laurel 0.41 LAB AEOS 0.00-0.42 K/uL Abs Eos 0.05 LAB ABASO 0.00-0.15 K/uL Abs Baso 0.00 LAB AMETA 0.00 K/uL Abs Jonancy 0.10 High LAB AMYEL 0.00 K/uL Abs Myelo 0.10 High LAB APRO 0.00 K/uL Abs Promyelo 0.05 High LAB OVALO OVALOCYTES Present LAB POLYCH POLYCHROMASIA 2+ LAB PLTEST PLATELET ESTIMATE Automated platelet count confirmed by manual slide review. Performed By: #### CA, CHM7, IPB, MGO, CBCDFC #### [facility] [address] [place] [address] [address] [place] [address] *POC GLUCOSE BATTERY Collected: 07/27/2018 Status: F Source: [facility] 9:01 PM [facility] REPOSITORY TYPE CODE TESTS RESULT OUT OF REFERENCE UNITS RANGE LAB GLUP 70-99 mg/dL High Glucose (poc 178 device) Result Comment: Notified RNread back No BRAVE per RN: PATIENT TYPE LAB PCSTYP *POC Capillary SAMPLE TYPE Blood *POC GLUCOSE BATTERY Collected: 07/27/2018 Status: F Source: [facility] 5:28 PM [facility] REPOSITORY TYPE CODE TESTS RESULT OUT OF REFERENCE UNITS RANGE LAB GLUP 70-99 mg/dL High Glucose (poc 143 device) Result Comment: No BRAVE per RN: PATIENT TYPE LAB PCSTYP *POC Capillary SAMPLE TYPE Blood *POC GLUCOSE BATTERY Collected: 07/27/2018 Status: F Source: [facility] 12:25 PM [facility] REPOSITORY TYPE CODE TESTS RESULT OUT OF REFERENCE UNITS RANGE LAB GLUP 70-99 mg/dL High Glucose (poc 139 device) Result Comment: No BRAVE per RN: PATIENT TYPE LAB PCSTYP *POC Capillary SAMPLE TYPE Blood *POC GLUCOSE BATTERY Collected: 07/27/2018 Status: F Source: [facility] 10:23 AM [facility] REPOSITORY TYPE CODE TESTS RESULT OUT OF REFERENCE UNITS RANGE LAB GLUP 70-99 mg/dL High Glucose (poc 164 device) Result Comment: No BRAVE per RN: PATIENT TYPE LAB PCSTYP *POC Capillary SAMPLE TYPE Blood *POC GLUCOSE BATTERY Collected: 07/27/2018 Status: F Source: [facility] 7:57 AM [facility] REPOSITORY TYPE CODE TESTS RESULT OUT OF REFERENCE UNITS RANGE LAB GLUP 70-99 mg/dL Glucose (poc 85 device) Result Comment: No BRAVE per RN: PATIENT TYPE LAB PCSTYP *POC Capillary SAMPLE TYPE Blood *POC GLUCOSE BATTERY Collected: 07/27/2018 Status: F Source: [facility] 6:26 AM [facility] REPOSITORY TYPE CODE TESTS RESULT OUT OF REFERENCE UNITS RANGE LAB GLUP 70-99 mg/dL High Glucose (poc 116 device) Result Comment: No BRAVE per RN: PATIENT TYPE LAB PCSTYP *POC Capillary SAMPLE TYPE Blood *POC GLUCOSE BATTERY Collected: 07/27/2018 Status: F Source: [facility] 6:04 AM [facility] REPOSITORY TYPE CODE TESTS RESULT OUT OF REFERENCE UNITS RANGE LAB GLUP 70-99 mg/dL Low Glucose (poc 52 device) Result Comment: Notified RNread back No BRAVE per RN: PATIENT TYPE LAB PCSTYP *POC Capillary SAMPLE TYPE Blood HEPATIC FUNCTION Collected: 07/27/2018 Status: F Source: [facility] PANEL 4:50 AM [facility] REPOSITORY TYPE CODE TESTS RESULT OUT OF REFERENCE UNITS RANGE LAB ALB 3.5-5.0 g/dL Low Albumin 2.7 LAB BILD <0.3 mg/dL Bilirubin High Direct 1.1 LAB BILT <1.5 mg/dL Bilirubin High Total 2.5 LAB ALP 32-126 U/L Alkaline High Phosphatase 147 LAB ALT 9-48 U/L ALT 15 LAB AST 14-40 U/L AST 19 LAB TP 6.4-8.3 g/dL Low Total Protein 5.1 Performed By: #### HFP, CHM7, CA, IPB, MGO, CBCDFC #### [facility] [address] [address] CHEM 7 Collected: 07/27/2018 Status: F Source: [facility] 4:50 AM [facility] REPOSITORY TYPE CODE TESTS RESULT OUT OF REFERENCE UNITS RANGE LAB BUN 7-22 mg/dL BUN High 30 LAB NA 133-143 mmol/L Sodium 140 LAB K 3.5-5.0 mmol/L Low Potassium 3.4 LAB CL 98-108 mmol/L Chloride 106 LAB CO2 22-30 mmol/L Carbon Dioxide 23 LAB GLUC 70-99 mg/dL Low alert Glucose 41 Result Comment: Critical GLU result called to and read back by: RENALDO VINES at: 07/27/2018 06:00:57 by : [id number] LAB CREA 0.50-1.20 mg/dL Creatinine High 2.02 LAB GAP 7-17 mmol/L Anion Gap 14 LAB BC BUN/CREA Ratio 15 LAB [facility] 278-305 mOsm/kg Osmolality (Calc) 294 LAB GFR >60 mL/min/1.73 sqM Est GFR,non Low 25 LAB GFRA >60 mL/min/1.73 sqM Est GFR, Low 30 Performed By: #### HFP, CHM7, CA, IPB, MGO, CBCDFC #### [facility] [address] [place] [address] CALCIUM Collected: 07/27/2018 Status: F Source: [facility] 4:50 AM [facility] REPOSITORY TYPE CODE TESTS RESULT OUT OF REFERENCE UNITS RANGE LAB CA 8.6-10.5 mg/dL Low Calcium 8.2 Performed By: #### HFP, CHM7, CA, IPB, MGO, CBCDFC #### [facility] [address] [place] [address] [place] [address] INORGANIC PHOSPHATE Collected: 07/27/2018 Status: F Source: [facility] 4:50 AM [facility] REPOSITORY TYPE CODE TESTS RESULT OUT OF REFERENCE UNITS RANGE LAB IP 2.2-4.6 mg/dL Inorg Phosphate 2.8 Performed By: #### HFP, CHM7, CA, IPB, MGO, CBCDFC #### [facility] [address] [place] [address] [place] [address] MAGNESIUM Collected: 07/27/2018 Status: F Source: [facility] 4:50 AM [facility] REPOSITORY TYPE CODE TESTS RESULT OUT OF REFERENCE UNITS RANGE LAB MG 1.6-2.6 mg/dL Magnesium 1.8 Performed By: #### HFP, CHM7, CA, IPB, MGO, CBCDFC #### [facility] [address] [place] [address] [place] [address] CBC,PLATELET,DIFFERENTIAL - CCL Collected: Status: F Source: [facility] 07/27/2018 4:50 AM [facility] REPOSITORY TYPE CODE TESTS RESULT OUT OF REFERENCE UNITS RANGE LAB WBC 3.99-11.19 K/uL WBC Count 6.70 LAB RBC 3.91-5.04 M/uL RBC Count 3.14 Low LAB HGB 11.4-15.2 g/dL Hemoglobin 8.7 Low LAB HCT 34.9-44.3 % Hematocrit 27.3 Low LAB MCV 79.6-97.7 fL Mean Cell 86.9 Volume LAB MCH 25.9-33.9 pg Mean Cell Hgb 27.7 LAB MCHC 31.4-35.9 g/dL Mean Cell Hgb 31.9 Conc LAB RDW 10.8-14.9 % RBC 22.0 High Distribution LAB PLT 150-393 K/uL Platelet Count 68 Low LAB MPV 8.5-12.2 fL Mean Platelet 11.7 Volume LAB NRBC 0.0-0.2 /100 WBC NUCLEATED RBC 1.6 High LAB DTYPE DIFFERENTIAL Manual TYPE Differential LAB SEGS % NEUTROPHIL 74.6 SEGMENTED LAB LYM % LYMPHOCYTE % 7.9 LAB MON % MONOCYTE % 10.5 LAB EOS % *EOSINOPHIL % 0.9 LAB BASO % BASOPHIL % 0.0 LAB BAND % BAND 0.9 NEUTROPHIL % LAB MYEL % MYELOCYTE % 2.6 LAB BLAST % BLAST % 2.6 LAB SBANS 1.64-7.28 K/uL SEGS + 5.06 Bands,Absolute LAB ALYM 1.16-3.51 K/uL Abs Lymph 0.53 Low LAB AMONO 0.22-0.87 K/uL Abs Laurel 0.70 LAB AEOS 0.00-0.42 K/uL Abs Eos 0.06 LAB ABASO 0.00-0.15 K/uL Abs Baso 0.00 LAB AMYEL 0.00 K/uL Abs Myelo 0.17 High LAB ABLAST 0.00 K/uL Abs Blast 0.17 High LAB OVALO OVALOCYTES Present LAB POLYCH POLYCHROMASIA 1+ LAB PLTEST PLATELET ESTIMATE Automated platelet count confirmed by manual slide review. LAB RMORPH Red Cell RBC Morphology indices confirmed by manual smear review. Performed By: #### HFP, CHM7, CA, IPB, MGO, CBCDFC #### [facility] [address] [place] [address] [address] [place] [address] *POC GLUCOSE BATTERY Collected: 07/26/2018 Status: F Source: [facility] 9:05 PM [facility] REPOSITORY TYPE CODE TESTS RESULT OUT OF REFERENCE UNITS RANGE LAB GLUP 70-99 mg/dL High Glucose (poc 132 device) Result Comment: Notified RNread back No BRAVE per RN: PATIENT TYPE LAB PCSTYP *POC Capillary SAMPLE TYPE Blood *POC GLUCOSE BATTERY Collected: 07/26/2018 Status: F Source: [facility] 4:57 PM [facility] REPOSITORY TYPE CODE TESTS RESULT OUT OF REFERENCE UNITS RANGE LAB GLUP 70-99 mg/dL High Glucose (poc 127 device) Result Comment: No BRAVE per RN: PATIENT TYPE LAB PCSTYP *POC Capillary SAMPLE TYPE Blood XR CHEST PORTABLE Observed: 07/26/2018 Status: F Source: [facility] 1:57 PM [facility] REPOSITORY EXAM: XR CHEST PORTABLE, 07/26/2018 13:44 PM COMPARISON: July 22, 2018 CLINICAL INDICATIONS: evaluate for pulmonary edema-requiring oxygen RELEVANT CLINICAL HISTORY: FINDINGS: (Adequate technique) Interval removal of the right PICC. Azygos vein is dilated. Increased prominence of pulmonary vascular interstitium. Few patchy opacities in the left upper lobe. Stable cardiomediastinal silhouette. No interval bone findings. IMPRESSION: Increased prominence of pulmonary vascular interstitium consistent with pulmonary venous hypertension without evidence of whitney edema. A few patchy opacities in the left upper lobe are nonspecific and may be infectious/inflammatory. *POC GLUCOSE BATTERY Collected: 07/26/2018 Status: F Source: [facility] 10:50 AM [facility] REPOSITORY TYPE CODE TESTS RESULT OUT OF REFERENCE UNITS RANGE LAB GLUP 70-99 mg/dL High Glucose (poc 178 device) Result Comment: No BRAVE per RN: PATIENT TYPE LAB PCSTYP *POC Capillary SAMPLE TYPE Blood *POC GLUCOSE BATTERY Collected: 07/26/2018 Status: F Source: [facility] 8:25 AM [facility] REPOSITORY TYPE CODE TESTS RESULT OUT OF REFERENCE UNITS RANGE LAB GLUP 70-99 mg/dL High Glucose (poc 142 device) Result Comment: No BRAVE per RN: PATIENT TYPE LAB PCSTYP *POC Capillary SAMPLE TYPE Blood CALCIUM Collected: 07/26/2018 Status: F Source: [facility] 3:32 AM [facility] REPOSITORY TYPE CODE TESTS RESULT OUT OF REFERENCE UNITS RANGE LAB CA 8.6-10.5 mg/dL Low Calcium 8.0 Performed By: #### CA, CHM7, IPB, MGO, CBCDFC #### [facility] [address] [place] [address] [address] [place] [address] CHEM 7 Collected: 07/26/2018 Status: F Source: [facility] 3:32 AM [facility] REPOSITORY TYPE CODE TESTS RESULT OUT OF REFERENCE UNITS RANGE LAB BUN 7-22 mg/dL BUN High 30 LAB NA 133-143 mmol/L Sodium 138 LAB K 3.5-5.0 mmol/L Potassium 3.6 LAB CL 98-108 mmol/L Chloride 105 LAB CO2 22-30 mmol/L Carbon Dioxide 22 LAB GLUC 70-99 mg/dL Glucose High 120 LAB CREA 0.50-1.20 mg/dL High Creatinine 2.01 LAB GAP 7-17 mmol/L Anion Gap 15 LAB BC BUN/CREA Ratio 15 LAB [facility] 278-305 mOsm/kg Osmolality 296 (Calc) LAB GFR >60 mL/min/1.73 Low sqM Est GFR,non 25 Estonian LAB GFRA >60 mL/min/1.73 Low sqM Est GFR, 30 Performed By: #### CA, CHM7, IPB, MGO, CBCDFC #### [facility] [address] [place] [address] [place] [address] INORGANIC PHOSPHATE Collected: 07/26/2018 Status: F Source: [facility] 3:32 AM [facility] REPOSITORY TYPE CODE TESTS RESULT OUT OF REFERENCE UNITS RANGE LAB IP 2.2-4.6 mg/dL Inorg Phosphate 3.4 Performed By: #### CA, CHM7, IPB, MGO, CBCDFC #### [facility] [address] [place] [address] [place] [address] MAGNESIUM Collected: 07/26/2018 Status: F Source: [facility] 3:32 AM [facility] REPOSITORY TYPE CODE TESTS RESULT OUT OF REFERENCE UNITS RANGE LAB MG 1.6-2.6 mg/dL Magnesium 1.9 Performed By: #### CA, CHM7, IPB, MGO, CBCDFC #### [facility] [address] [place] [address] [place] [address] CBC,PLATELET,DIFFERENTIAL - CCL Collected: Status: F Source: [facility] 07/26/2018 3:32 AM [facility] REPOSITORY TYPE CODE TESTS RESULT OUT OF REFERENCE UNITS RANGE LAB WBC 3.99-11.19 K/uL WBC Count 2.31 Low LAB RBC 3.91-5.04 M/uL RBC Count 3.09 Low LAB HGB 11.4-15.2 g/dL Hemoglobin 8.8 Low LAB HCT 34.9-44.3 % Hematocrit 27.4 Low LAB MCV 79.6-97.7 fL Mean Cell 88.7 Volume LAB MCH 25.9-33.9 pg Mean Cell Hgb 28.5 LAB MCHC 31.4-35.9 g/dL Mean Cell Hgb 32.1 Conc LAB RDW 10.8-14.9 % RBC 21.1 High Distribution LAB PLT 150-393 K/uL Platelet Count 62 Low LAB MPV 8.5-12.2 fL Mean Platelet 12.7 High Volume LAB NRBC 0.0-0.2 /100 WBC NUCLEATED RBC 5.6 High LAB DTYPE DIFFERENTIAL Manual TYPE Differential LAB SEGS % NEUTROPHIL 43.0 SEGMENTED LAB LYM % LYMPHOCYTE % 33.0 LAB MON % MONOCYTE % 16.0 LAB EOS % *EOSINOPHIL % 2.0 LAB BASO % BASOPHIL % 2.0 LAB BAND % BAND 2.0 NEUTROPHIL % LAB BLAST % BLAST % 2.0 LAB SBANS 1.64-7.28 K/uL SEGS + 1.04 Low Bands,Absolute LAB ALYM 1.16-3.51 K/uL Abs Lymph 0.76 Low LAB AMONO 0.22-0.87 K/uL Abs Laurel 0.37 LAB AEOS 0.00-0.42 K/uL Abs Eos 0.05 LAB ABASO 0.00-0.15 K/uL Abs Baso 0.05 LAB ABLAST 0.00 K/uL Abs Blast 0.05 High LAB ECHINO *ECHINOCYTES Present LAB OVALO OVALOCYTES Present LAB POLYCH POLYCHROMASIA 1+ LAB PLTEST PLATELET ESTIMATE Automated platelet count confirmed by manual slide review. LAB RMORPH Red Cell RBC Morphology indices confirmed by manual smear review. Performed By: #### CA, CHM7, IPB, MGO, CBCDFC #### [facility] [address] [place] [address] [address] [place] [address] *POC GLUCOSE BATTERY Collected: 07/25/2018 Status: F Source: [facility] 9:12 PM [facility] REPOSITORY TYPE CODE TESTS RESULT OUT OF REFERENCE UNITS RANGE LAB GLUP 70-99 mg/dL High Glucose (poc 229 device) Result Comment: No BRAVE per RN: PATIENT TYPE LAB PCSTYP *POC Capillary SAMPLE TYPE Blood *POC GLUCOSE BATTERY Collected: 07/25/2018 Status: F Source: [facility] 6:34 PM [facility] REPOSITORY TYPE CODE TESTS RESULT OUT OF REFERENCE UNITS RANGE LAB GLUP 70-99 mg/dL High Glucose (poc 146 device) Result Comment: No BRAVE per RN: PATIENT TYPE LAB PCSTYP *POC Capillary SAMPLE TYPE Blood *POC GLUCOSE BATTERY Collected: 07/25/2018 Status: F Source: [facility] 1:24 PM [facility] REPOSITORY TYPE CODE TESTS RESULT OUT OF REFERENCE UNITS RANGE LAB GLUP 70-99 mg/dL High Glucose (poc 140 device) Result Comment: No BRAVE per RN: PATIENT TYPE LAB PCSTYP *POC Capillary SAMPLE TYPE Blood *POC GLUCOSE BATTERY Collected: 07/25/2018 Status: F Source: [facility] 11:37 AM [facility] REPOSITORY TYPE CODE TESTS RESULT OUT OF REFERENCE UNITS RANGE LAB GLUP 70-99 mg/dL High Glucose (poc 155 device) Result Comment: No BRAVE per RN: PATIENT TYPE LAB PCSTYP *POC Capillary SAMPLE TYPE Blood *POC GLUCOSE BATTERY Collected: 07/25/2018 Status: F Source: [facility] 10:34 AM [facility] REPOSITORY TYPE CODE TESTS RESULT OUT OF REFERENCE UNITS RANGE LAB GLUP 70-99 mg/dL Low Glucose (poc 69 device) Result Comment: No BRAVE per RN: PATIENT TYPE LAB PCSTYP *POC Capillary SAMPLE TYPE Blood MRI TIBIA LEFT Observed: 07/25/2018 Status: F Source: [facility] WITHOUT CONTRAST 10:13 AM [facility] REPOSITORY EXAM: MRI TIBIA LEFT WITHOUT CONTRAST, 07/25/2018 09:35 AM COMPARISON: Radiographs of the left tibia/fibula July 22, 2018 CLINICAL INDICATIONS: Osteomyelitis, tib/fib; 63 yo woman with new DLBCL s/p one cycle of chemo, now with lle swelling and xray concerning for osteomyelitis.; RELEVANT CLINICAL HISTORY: TECHNIQUE: MR scanning of the tibia was performed using multiple pulse sequences, without intravenous contrast material. Intravenous contrast was not administered secondary to impaired renal function. FINDINGS: Muscles: Muscles demonstrate normal signal and morphology. Bone: The bone marrow signal is heterogeneous without focal edema to confirm osteomyelitis. No acute periostitis. No cortical signal abnormality. Joint: Arthritic changes are partially visualized at the left knee with a small joint effusion. Soft Tissues: Diffuse subcutaneous edema is noted within the bilateral lower extremities. This appears slightly more pronounced on the left. No dominant fluid collection visualized. No discrete soft tissue mass. No intramuscular collection or significant fluid along the deep fascial layers. IMPRESSION: Intravenous contrast not administered secondary to impaired renal function. Heterogeneous bone marrow signal without focal abnormality to suggest osteomyelitis. No focal fluid collection identified. Diffuse subcutaneous edema of the bilateral lower extremities which is nonspecific. This could be seen in the setting of cellulitis. Third spacing of fluid/volume overload could also give this appearance. Observed: 07/25/2018 Status: F Source: [facility] URINE CULTURE -UHE 8:19 AM [facility] REPOSITORY SOURCE: URINE-CLEAN CATCH: RESULT: NO GROWTH REPORT STATUS: 07/26/2018 FINAL Performed By: #### UR #### [address] [address] Blood Cultures processed at: [facility] CALCIUM Collected: 07/25/2018 Status: F Source: [facility] 3:11 AM [facility] REPOSITORY TYPE CODE TESTS RESULT OUT OF REFERENCE UNITS RANGE LAB CA 8.6-10.5 mg/dL Low Calcium 8.2 Performed By: #### CA, CHM7, CKB, IPB, MGO, IAPTHD, CBCDFC #### [facility] [address] [place] [address] [facility] [address] [place] [id number] CHEM 7 Collected: 07/25/2018 Status: F Source: [facility] 3:11 AM [facility] REPOSITORY TYPE CODE TESTS RESULT OUT OF REFERENCE UNITS RANGE LAB BUN 7-22 mg/dL BUN High 31 LAB NA 133-143 mmol/L Sodium 139 LAB K 3.5-5.0 mmol/L Potassium 3.9 LAB CL 98-108 mmol/L Chloride 106 LAB CO2 22-30 mmol/L Carbon Dioxide 22 LAB GLUC 70-99 mg/dL Glucose 70 LAB CREA 0.50-1.20 mg/dL High Creatinine 1.98 LAB GAP 7-17 mmol/L Anion Gap 15 LAB BC BUN/CREA Ratio 16 LAB [facility] 278-305 mOsm/kg Osmolality 295 (Calc) LAB GFR >60 mL/min/1.73 Low sqM Est GFR,non 25 Estonian LAB GFRA >60 mL/min/1.73 Low sqM Est GFR, 31 Performed By: #### CA, CHM7, CKB, IPB, MGO, IAPTHD, CBCDFC #### [facility] [address] [place] [address] [place] [id number] CK Collected: 07/25/2018 Status: F Source: [facility] 3:11 AM [facility] REPOSITORY TYPE CODE TESTS RESULT OUT OF REFERENCE UNITS RANGE LAB CK 30-184 U/L Creatine 82 Kinase Performed By: #### CA, CHM7, CKB, IPB, MGO, IAPTHD, CBCDFC #### [facility] [address] [place] [address] [facility] [address] [place] [address] INORGANIC PHOSPHATE Collected: 07/25/2018 Status: F Source: [facility] 3:11 AM [facility] REPOSITORY TYPE CODE TESTS RESULT OUT OF REFERENCE UNITS RANGE LAB IP 2.2-4.6 mg/dL Low Inorg Phosphate 1.8 Performed By: #### CA, CHM7, CKB, IPB, MGO, IAPTHD, CBCDFC #### [facility] [address] [place] [id number] [facility] [address] [place] [address] MAGNESIUM Collected: 07/25/2018 Status: F Source: [facility] 3:11 AM [facility] REPOSITORY TYPE CODE TESTS RESULT OUT OF REFERENCE UNITS RANGE LAB MG 1.6-2.6 mg/dL Magnesium 1.8 Performed By: #### CA, CHM7, CKB, IPB, MGO, IAPTHD, CBCDFC #### [facility] [address] [place] [id number] [place] [address] [place] [address] PATHOLOGIST DIFFERENTIAL Collected: 07/25/2018 Status: F Source: [facility] 3:11 AM [facility] REPOSITORY TYPE CODE TESTS RESULT OUT OF REFERENCE UNITS RANGE LAB MARLENY COATESFF Pathologist TRACKING CODE Differential LAB DRVBPP Dr. Lianne Villalta MD, PhD REVIEWED BY LAB PWCOM WBC Blasts COMMENTS confirmed by pathologist review. Result Comment: Blasts are medium to large with moderate to abundant cytoplasm, fine chromatin, and variably prominent nucleoli. Cytoplasmic toxic granulation is present. Performed By: #### CA, CHM7, CKB, IPB, MGO, IAPTHD, CBCDFC #### [facility] [address] [place], [place] [id number] [facility] [address] [place] [id number] CBC,PLATELET,DIFFERENTIAL - CCL Collected: Status: F Source: [facility] 07/25/2018 3:11 AM [facility] REPOSITORY TYPE CODE TESTS RESULT OUT OF REFERENCE UNITS RANGE LAB WBC 3.99-11.19 K/uL WBC Count 0.81 Low alert LAB RBC 3.91-5.04 M/uL RBC Count 3.11 Low LAB HGB 11.4-15.2 g/dL Hemoglobin 8.8 Low LAB HCT 34.9-44.3 % Hematocrit 27.2 Low LAB MCV 79.6-97.7 fL Mean Cell 87.5 Volume LAB MCH 25.9-33.9 pg Mean Cell Hgb 28.3 LAB MCHC 31.4-35.9 g/dL Mean Cell Hgb 32.4 Conc LAB RDW 10.8-14.9 % RBC 19.6 High Distribution LAB PLT 150-393 K/uL Platelet Count 52 Low LAB MPV 8.5-12.2 fL Mean Platelet 12.3 High Volume LAB NRBC 0.0-0.2 /100 WBC NUCLEATED RBC 7.4 High LAB DTYPE DIFFERENTIAL Manual TYPE Differential LAB SEGS % NEUTROPHIL 6.0 SEGMENTED LAB LYM % LYMPHOCYTE % 68.0 LAB MON % MONOCYTE % 16.0 LAB EOS % *EOSINOPHIL % 4.0 LAB BASO % BASOPHIL % 2.0 LAB BAND % BAND 0.0 NEUTROPHIL % LAB BLAST % BLAST % 4.0 LAB SBANS 1.64-7.28 K/uL SEGS + 0.05 Low Bands,Absolute LAB ALYM 1.16-3.51 K/uL Abs Lymph 0.55 Low LAB AMONO 0.22-0.87 K/uL Abs Laurel 0.13 Low LAB AEOS 0.00-0.42 K/uL Abs Eos 0.03 LAB ABASO 0.00-0.15 K/uL Abs Baso 0.02 LAB ABLAST 0.00 K/uL Abs Blast 0.03 High LAB OVALO OVALOCYTES Present LAB POLYCH POLYCHROMASIA 3+ LAB SCHIS 0 SCHISTOCYTES 1+ High LAB WCOM WBC COMMENTS Blasts confirmed by pathologist review. Result Comment: Blasts are medium to large with moderate to abundant cytoplasm, fine chromatin, and variably prominent nucleoli. Cytoplasmic toxic granulation is present. LAB PLTEST PLATELET Automated ESTIMATE platelet count confirmed by manual slide review. LAB RMORPH Red Cell RBC indices Morphology confirmed by manual smear review. Performed By: #### CA, CHM7, CKB, IPB, MGO, IAPTHD, CBCDFC #### [facility] [address] [place] [address] [address] [place] [address] Observed: 07/25/2018 Status: F Source: [facility] BLOOD:ROUTINE II 12:30 AM [facility] REPOSITORY SOURCE: BLOOD, PERIPHERAL: Left Hand RESULT: NO GROWTH DAY 5 OF 5 REPORT STATUS: 07/30/2018 FINAL Performed By: #### FAST2 #### [address] [address] Blood Cultures processed at: [facility] Observed: 07/25/2018 Status: F Source: [facility] BLOOD:ROUTINE I 12:20 AM [facility] REPOSITORY SOURCE: BLOOD, PERIPHERAL: Right Hand RESULT: NO GROWTH DAY 5 OF 5 REPORT STATUS: 07/30/2018 FINAL Performed By: #### JARAD #### [address] [address] Blood Cultures processed at: [facility] *POC GLUCOSE BATTERY Collected: 07/24/2018 Status: F Source: [facility] 9:14 PM [facility] REPOSITORY TYPE CODE TESTS RESULT OUT OF REFERENCE UNITS RANGE LAB GLUP 70-99 mg/dL High Glucose (poc 197 device) Result Comment: Notified RNread back No BRAVE per RN: PATIENT TYPE LAB PCSTYP *POC Capillary SAMPLE TYPE Blood *POC GLUCOSE BATTERY Collected: 07/24/2018 Status: F Source: [facility] 6:50 PM [facility] REPOSITORY TYPE CODE TESTS RESULT OUT OF REFERENCE UNITS RANGE LAB GLUP 70-99 mg/dL High Glucose (poc 171 device) Result Comment: No BRAVE per RN: PATIENT TYPE LAB PCSTYP *POC Capillary SAMPLE TYPE Blood Observed: 07/24/2018 Status: F Source: [facility] CATHETER TIP CULTURE 5:24 PM [facility] REPOSITORY SOURCE: CATHETER, PICC: RESULT: NO GROWTH DAY 2 REPORT STATUS: 07/26/2018 FINAL Performed By: #### CTIP #### [facility] [address] [place] [address] Blood Cultures processed at: [facility] VANCOMYCIN, TROUGH Collected: 07/24/2018 Status: F Source: [facility] 3:48 PM [facility] REPOSITORY TYPE CODE TESTS RESULT OUT OF REFERENCE UNITS RANGE LAB VANCTR 10.0-20.0 mcg/mL 18.1 Vancomycin, Trough Performed By: #### VANCTR #### [facility] [address] [place] [address] [facility] [address] [place], [place] [address] Observed: 07/24/2018 Status: F Source: [facility] FUNGUS: SKIN, HAIR, 2:57 PM [facility] REPOSITORY SOURCE: SKIN: Punch Biopsy Tissue Left Leg COMMENT: Cultures held 28 days. Tiny Tissue RESULT: NO GROWTH TO DATE REPORT STATUS: 08/21/2018 FINAL Performed By: #### SHNF #### [facility] [address] [place] [address] Blood Cultures processed at: [facility] SURGICAL PATHOLOGY Observed: 07/24/2018 Status: F Source: [facility] 2:48 PM [facility] REPOSITORY Surgical Pathology Report Patient Name: KIM DILLON Med. Rec #: [id number] Submitting Physician: JAZMYN MI --- Clinical History --- 63 yo F w/ DLBCL, pancytopenic from C1 of R CHOP with history of cat bite to left hand now with recurrent left lower extremity cellulitis, worsening. Erythematous, warm, edematous plaque LLE. Favor infectious. ---Final Pathologic Diagnosis--- A. Skin, left lower leg, punch biopsy: - Perivascular hemorrhage and dermal edema (see Comment). - No evidence of cellulitis identified. ---Comment--- The findings are not entirely specific but may be seen in the setting of venous insufficiency, resolving cellulitis, and other causes of edema. Clinical-pathologic correlation may be helpful. [email or web address]:07/30/2018 Electronically Signed By BLAYNE MAYS MD 07/30/2018 08:26:11 Professional Interpretation performed at location: [address] [place] [address] ---SPECIMEN(S) RECEIVED:--- SBX A: Skin, BX, not cyst, tag, debridement,plastic ---GROSS DESCRIPTION:--- The specimen is received in one properly labeled container with the patient's name and accession number. A. The specimen is designated left lower leg and consists of a punch of skin measuring 0.3 cm in diameter and 0.4 cm in depth. The epidermal surface is purple-pink and dusky. The specimen is bisected. TE 1 Lab Use Only: JobID [id number] Gross description by: Nita Huddleston Performed By: #### SURGP #### [facility] [address] [place] [address] [facility] [address] [place], [place] [address] BACT CULTURE/DIR Observed: Status: F Source: [place] [facility],LESION,TISSUE,DEVICE-E 07/24/2018 1:28 [facility] REPOSITORY SOURCE: SKIN: Punch Biopsy Tissue Left Leg COMMENT: Tiny Tissue MICROSCOPIC: Neutrophils, None NO ORGANISMS SEEN Gram Stain read at [facility] QUANTITATION: <<NOT APPLICABLE>> RESULT: NO GROWTH DAY 2 REPORT STATUS: 07/26/2018 FINAL Performed By: #### #### [address] [address] Blood Cultures processed at: [facility] Observed: 07/24/2018 Status: I Source: [facility] AFB: TISSUE -UHE 1:28 PM [facility] REPOSITORY SOURCE: SKIN: Punch Biopsy Tissue Left Leg COMMENT: Tiny Tissue MICROSCOPIC: No Acid Fast Bacillus Seen :Examined by Fluorochrome Stain RESULT: NO GROWTH DAY 33 OF 42 REPORT STATUS: PENDING Performed By: #### AFBT #### [address] [address] Blood Cultures processed at: [facility] Observed: 07/24/2018 Status: F Source: [facility] ANAEROBE CULTURE -UHE 1:28 PM [facility] REPOSITORY SOURCE: SKIN: Punch Biopsy Tissue Left Leg COMMENT: Tiny Tissue MICROSCOPIC: See Routine Culture RESULT: NO ANAEROBIC GROWTH REPORT STATUS: 07/30/2018 FINAL Performed By: #### REINALDO #### [facility] [address] [place] [address] Blood Cultures processed at: [facility] *POC GLUCOSE BATTERY Collected: 07/24/2018 Status: F Source: [facility] 12:59 PM [facility] REPOSITORY TYPE CODE TESTS RESULT OUT OF REFERENCE UNITS RANGE LAB GLUP 70-99 mg/dL High Glucose (poc 145 device) Result Comment: No BRAVE per RN: PATIENT TYPE LAB PCSTYP *POC Capillary SAMPLE TYPE Blood [facility] Observed: 07/24/2018 Status: F Source: [facility] CONSULT 11:59 AM [facility] [address] [place] [address] [facility] Consult 07/22/18 0939 MR#: [id number] Acct: [id number] Name: KIM DILLON Rep #: [id number] : 1955 63 From: Rita BALLESTEROS PCP: LESLI Chang Status: REG RCR Y Location: WC (1) Soft tissue radionecrosis Status: Chronic Current Visit: Yes Code(s): L59.8 - Other specified disorders of the skin and subcutaneous tissue related to radiation; Y84.2 - Radiological procedure and radiotherapy as the cause of abnormal reaction of the patient, or of later complication, without mention of misadventure at the time of the procedure Comment: Bladder (2) Hematuria due to cystitis Status: Acute Current Visit: Yes Code(s): N30.91 - Cystitis, unspecified with hematuria (3) 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 This is a closer facility than driving to [place] daily. She started HBOT in [place] a couple weeks ago before her first treatment of Chemotherapy for recurrent bladder CA with mets to pelvis and hip. The patient is a 63 year old F who [facility] evaluate the possibility of initiating hyperbaric oxygen therapy for treatment of Soft tissue Radionecrosis to her bladder. 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 (Chronic) History of radiation therapy (Chronic) Soft tissue radionecrosis (Chronic) Bladder Allergies/Adverse Reactions: Allergies Iodinated Contrast- Oral and IV Dye [CONTRASTS] Allergy (Verified 07/21/18 13:11) Shortness of breath Home Medications: Ambulatory Orders Medication Instructions Recorded Acyclovir 400 mg pe BC BID 07/21/18 Allopurinol [Zyloprim] 300 mg BC DAILY 07/21/18 Lives: Spouse/ Significant Other Smoking Status: Former smoker Review of Systems Constitutional: Denies: Anorexia, Chills Eyes: Denies: Blurred vision HEENT: Denies: Difficulty Hearing, Difficulty Swallowing Cardiovascular: Denies: Chest Pain, Edema Respiratory: Denies: Cough, Shortness of Breath Genitourinary: Reports: Hematuria Musculoskeletal: Denies: Arm Pain, Back Pain, Foot Pain Skin: Denies: Dryness, Jaundice Neurological: Denies: Balance problems, Blurred vision, Change in Speech Endocrine: Denies: Change in Body Habitus - Physical Exam Vital Signs Temp Pulse Resp BP 98.0 F 89 18 112/54 L 07/21/18 12:46 07/21/18 12:46 07/21/18 12:46 07/21/18 12:46 General: Alert, Oriented x3, Cooperative HEENT: Atraumatic, PERRLA, TM's Clear Oral: Moist Mucosa Lungs: Clear to auscultation, Normal air movement Cardiovascular: Regular rate, Regular Rhythm Extremities: No edema, Capillary Refill Less than 3 Seconds, Peripheral Pulses Normal Skin: No rashes, No breakdown Musculoskeletal: No Tenderness to Palpation of Joints or Extremities Neurological: Neuro grossly intact Psych/Mental Status: Normal Affect, Appropriate Assessment/Plan Active Problems (Last Updated 07/21/18 @ 15:11 by Karen Quiles) 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 There is a relative contraindication for HBOT due to her currently being treated with a chemotherapeutic agent for her recurrent bladder cancer with mets to the pelvis. She previously has received 4 treatments of HBOT prior to starting this current course of chemotherapy which started a week ago. Instructed patient that she will need to discuss this issue further with her physicians in [place]. 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) Code Visit Office Visits / Consults: 37934 OV L4 Est 07/24/18 1159 <Electronically signed by Rita BALLESTEROS> Date Rita BALLESTEROS CC: Signed Observed: 07/24/2018 Status: F Source: [facility] TRANSFUSE PLATELETS 11:19 [facility] REPOSITORY CROSSMATCH EXPIRATION: 07/25/2018 UNIT NUMBER: [id number] BLOOD COMPONENT TYPE: Platelet Pheresis,Leukoreduced,[id number] STATUS OF UNIT: Issued, Final TRANSFUSION STATUS: OK TO TRANSFUSE Performed By: #### TPLT #### [facility] [address] [place] [address] [place] [address] BACT CULTURE/DIR Observed: Status: F Source: [place] [facility],LESION,TISSUE,DEVICE-UHE 07/24/2018 10:26 [facility] REPOSITORY SOURCE: WOUND: Right Knee Drainage COMMENT: eSwab transport medium sent MICROSCOPIC: Neutrophils, None Acellular debris present NO ORGANISMS SEEN QUANTITATION: <<NOT APPLICABLE>> RESULT: NO GROWTH DAY 2 REPORT STATUS: 07/26/2018 FINAL Performed By: #### GEN #### [address] [address] Blood Cultures processed at: [facility] *POC GLUCOSE BATTERY Collected: 07/24/2018 Status: F Source: [facility] 8:08 AM [facility] REPOSITORY TYPE CODE TESTS RESULT OUT OF REFERENCE UNITS RANGE LAB GLUP 70-99 mg/dL High Glucose (poc 133 device) Result Comment: No BRAVE per RN: PATIENT TYPE LAB PCSTYP *POC Capillary SAMPLE TYPE Blood CBC,PLATELET,DIFFERENTIAL - CCL Collected: Status: F Source: [facility] 07/24/2018 5:17 AM [facility] REPOSITORY TYPE CODE TESTS RESULT OUT OF REFERENCE UNITS RANGE LAB WBC 3.99-11.19 K/uL <0.30 WBC Result below Count linearity Result Comment: Critical value previously called LAB RBC 3.91-5.04 M/uL RBC Count 2.71 Low LAB HGB 11.4-15.2 g/dL Hemoglobin 7.7 Low LAB HCT 34.9-44.3 % Hematocrit 23.5 Low LAB MCV 79.6-97.7 fL Mean Cell 86.7 Volume LAB MCH 25.9-33.9 pg Mean Cell 28.4 Hgb LAB MCHC 31.4-35.9 g/dL Mean Cell 32.8 Hgb Conc LAB RDW 10.8-14.9 % RBC 16.7 High Distribution LAB PLT 150-393 K/uL Platelet 22 Low alert Count LAB MPV 8.5-12.2 fL Mean NOT Platelet Volume MEASURED LAB NRBC 0.0-0.2 /100 WBC NUCLEATED 7.4 High RBC LAB DTYPE Too few DIFFERENTIAL TYPE cells to count, no differential performed Performed By: #### CBCDFC, CA, CHM7, HFP, IPB, MGO #### [facility] [address] [place] [address] [place] [address] CALCIUM Collected: 07/24/2018 Status: F Source: [facility] 5:17 AM [facility] REPOSITORY TYPE CODE TESTS RESULT OUT OF REFERENCE UNITS RANGE LAB CA 8.6-10.5 mg/dL Low Calcium 8.0 Performed By: #### CBCDFC, CA, CHM7, HFP, IPB, MGO #### [facility] [address] [place] [address] [place] [address] CHEM 7 Collected: 07/24/2018 Status: F Source: [facility] 5:17 AM [facility] REPOSITORY TYPE CODE TESTS RESULT OUT OF REFERENCE UNITS RANGE LAB BUN 7-22 mg/dL BUN High 35 LAB NA 133-143 mmol/L Sodium 138 LAB K 3.5-5.0 mmol/L Potassium 3.5 LAB CL 98-108 mmol/L Chloride 106 LAB CO2 22-30 mmol/L Carbon Dioxide 23 LAB GLUC 70-99 mg/dL Glucose High 155 LAB CREA 0.50-1.20 mg/dL High Creatinine 1.71 LAB GAP 7-17 mmol/L Anion Gap 13 LAB BC BUN/CREA Ratio 20 LAB OSMC 278-305 mOsm/kg Osmolality 300 (Calc) LAB GFR >60 mL/min/1.73 Low sqM Est GFR,non 30 Estonian LAB GFRA >60 mL/min/1.73 Low sqM Est GFR, 36 Performed By: #### CBCDFC, CA, CHM7, HFP, IPB, MGO #### [facility] [address] [place] [address] [address] [place] [address] HEPATIC FUNCTION Collected: 07/24/2018 Status: F Source: [facility] 5:17 AM [facility] REPOSITORY TYPE CODE TESTS RESULT OUT OF REFERENCE UNITS RANGE LAB ALB 3.5-5.0 g/dL Low Albumin 2.6 LAB BILD <0.3 mg/dL Bilirubin High Direct 0.8 LAB BILT <1.5 mg/dL Bilirubin High Total 2.0 LAB ALP 32-126 U/L Alkaline High Phosphatase 146 LAB ALT 9-48 U/L ALT 18 LAB AST 14-40 U/L AST 21 LAB TP 6.4-8.3 g/dL Low Total Protein 5.0 Performed By: #### CBCDFC, CA, CHM7, HFP, IPB, MGO #### [facility] [address] [place] [id number] [place] [address] [place] [address] INORGANIC PHOSPHATE Collected: 07/24/2018 Status: F Source: [facility] 5:17 AM [facility] REPOSITORY TYPE CODE TESTS RESULT OUT OF REFERENCE UNITS RANGE LAB IP 2.2-4.6 mg/dL Inorg Phosphate 2.2 Performed By: #### CBCDFC, CA, CHM7, HFP, IPB, MGO #### [facility] [address] [place] [address] [facility] [address] [address] MAGNESIUM Collected: 07/24/2018 Status: F Source: [facility] 5:17 AM [facility] REPOSITORY TYPE CODE TESTS RESULT OUT OF REFERENCE UNITS RANGE LAB MG 1.6-2.6 mg/dL Magnesium 1.8 Performed By: #### CBCDFC, CA, CHM7, HFP, IPB, MGO #### [facility] [address] [place] [address] [facility] [address] [place] [address] *POC GLUCOSE BATTERY Collected: 07/23/2018 Status: F Source: [facility] 9:09 PM [facility] REPOSITORY TYPE CODE TESTS RESULT OUT OF REFERENCE UNITS RANGE LAB GLUP 70-99 mg/dL High Glucose (poc 153 device) Result Comment: No BRAVE per RN: PATIENT TYPE LAB PCSTYP *POC Capillary SAMPLE TYPE Blood *POC GLUCOSE BATTERY Collected: 07/23/2018 Status: F Source: [facility] 5:28 PM [facility] REPOSITORY TYPE CODE TESTS RESULT OUT OF REFERENCE UNITS RANGE LAB GLUP 70-99 mg/dL High Glucose (poc 132 device) Result Comment: No BRAVE per RN: PATIENT TYPE LAB PCSTYP *POC Capillary SAMPLE TYPE Blood CBC,PLATELET,DIFFERENTIAL - CCL Collected: Status: F Source: [facility] 07/23/2018 3:35 PM [facility] REPOSITORY TYPE CODE TESTS RESULT OUT OF REFERENCE UNITS RANGE LAB WBC 3.99-11.19 K/uL <0.30 WBC Result below Count linearity Result Comment: Critical value previously called LAB RBC 3.91-5.04 M/uL Low RBC Count 2.87 LAB HGB 11.4-15.2 g/dL Low Hemoglobin 8.1 LAB HCT 34.9-44.3 % Low Hematocrit 24.4 LAB MCV 79.6-97.7 fL Mean Cell Volume 85.0 LAB MCH 25.9-33.9 pg Mean Cell Hgb 28.2 LAB MCHC 31.4-35.9 g/dL Mean Cell Hgb Conc 33.2 LAB RDW 10.8-14.9 % RBC High Distribution 16.4 LAB PLT 150-393 K/uL Low Platelet Count 20 alert LAB MPV 8.5-12.2 fL Mean Platelet Volume NOT MEASURED LAB NRBC 0.0-0.2 /100 WBC NUCLEATED RBC 0.0 Performed By: #### CBCDFC #### [facility] [address] [place], [place] [address] [place] [address] [address] [place] [address] *POC GLUCOSE BATTERY Collected: 07/23/2018 Status: F Source: [facility] 11:47 AM [facility] REPOSITORY TYPE CODE TESTS RESULT OUT OF REFERENCE UNITS RANGE LAB GLUP 70-99 mg/dL High Glucose (poc 159 device) Result Comment: No BRAVE per RN: PATIENT TYPE LAB PCSTYP *POC Capillary SAMPLE TYPE Blood *POC GLUCOSE BATTERY Collected: 07/23/2018 Status: F Source: [facility] 8:03 AM [facility] REPOSITORY TYPE CODE TESTS RESULT OUT OF REFERENCE UNITS RANGE LAB GLUP 70-99 mg/dL High Glucose (poc 149 device) Result Comment: No BRAVE per RN: PATIENT TYPE LAB PCSTYP *POC Capillary SAMPLE TYPE Blood CBC,PLATELET,DIFFERENTIAL - CCL Collected: Status: F Source: [facility] 07/23/2018 5:17 AM [facility] REPOSITORY TYPE CODE TESTS RESULT OUT OF REFERENCE UNITS RANGE LAB WBC 3.99-11.19 K/uL <0.30 WBC Result below Count linearity Result Comment: Called to and read back by RENALDO HILL [id number] LAB RBC 3.91-5.04 M/uL Low RBC Count 2.37 LAB HGB 11.4-15.2 g/dL Low Hemoglobin alert 6.7 Result Comment: This result has been called to RENALDO HILL by Kate Castillo on 07 23 2018 at 0638, and has been read back. LAB HCT 34.9-44.3 % Hematocrit 20.4 Low LAB MCV 79.6-97.7 fL Mean Cell 86.1 Volume LAB MCH 25.9-33.9 pg Mean Cell 28.3 Hgb LAB MCHC 31.4-35.9 g/dL Mean Cell 32.8 Hgb Conc LAB RDW 10.8-14.9 % RBC 16.6 High Distribution LAB PLT 150-393 K/uL Platelet 17 Low alert Count LAB MPV 8.5-12.2 fL Mean NOT Platelet Volume MEASURED LAB NRBC 0.0-0.2 /100 WBC NUCLEATED 0.0 RBC LAB DTYPE Too few DIFFERENTIAL TYPE cells to count, no differential performed Performed By: #### CBCDFC, CA, CHM7, IPB, MGO #### [facility] [address] [place] [address] [facility] [address] [place] [address] CALCIUM Collected: 07/23/2018 Status: F Source: [facility] 5:17 AM [facility] REPOSITORY TYPE CODE TESTS RESULT OUT OF REFERENCE UNITS RANGE LAB CA 8.6-10.5 mg/dL Low Calcium 7.8 Performed By: #### CBCDFC, CA, CHM7, IPB, MGO #### [facility] [address] [place] [address] [facility] [address] [place] [address] CHEM 7 Collected: 07/23/2018 Status: F Source: [facility] 5:17 [facility] REPOSITORY TYPE CODE TESTS RESULT OUT OF REFERENCE UNITS RANGE LAB BUN 7-22 mg/dL BUN High 38 LAB NA 133-143 mmol/L Sodium 140 LAB K 3.5-5.0 mmol/L Low Potassium 3.4 LAB CL 98-108 mmol/L Chloride High 109 LAB CO2 22-30 mmol/L Carbon Dioxide 24 LAB GLUC 70-99 mg/dL Glucose High 200 LAB CREA 0.50-1.20 mg/dL High Creatinine 1.60 LAB GAP 7-17 mmol/L Anion Gap 10 LAB BC BUN/CREA Ratio 24 LAB [facility]SM[facility] 278-305 mOsm/kg High Osmolality 307 (Calc) LAB GFR >60 mL/min/1.73 Low sqM Est GFR,non 32 Estonian LAB GFRA >60 mL/min/1.73 Low sqM Est GFR, 39 Performed By: #### CBCDFC, CA, CHM7, IPB, MGO #### [facility] [address] [place] [address] [facility] [address] [place] [address] INORGANIC PHOSPHATE Collected: 07/23/2018 Status: F Source: [facility] 5:17 [facility] REPOSITORY TYPE CODE TESTS RESULT OUT OF REFERENCE UNITS RANGE LAB IP 2.2-4.6 mg/dL Inorg Phosphate 2.9 Performed By: #### CBCDFC, CA, CHM7, IPB, MGO #### [facility] [address] [place] [address] [facility] [address] [place], [place] [address] MAGNESIUM Collected: 07/23/2018 Status: F Source: [facility] 5:17 AM [facility] REPOSITORY TYPE CODE TESTS RESULT OUT OF REFERENCE UNITS RANGE LAB MG 1.6-2.6 mg/dL Magnesium 1.9 Performed By: #### CBCDFC, CA, CHM7, IPB, MGO #### [facility] [address] [place] [address] [facility] [address] [place], [place] [address] *POC GLUCOSE BATTERY Collected: 07/22/2018 Status: F Source: [facility] 11:10 PM [facility] REPOSITORY TYPE CODE TESTS RESULT OUT OF REFERENCE UNITS RANGE LAB GLUP 70-99 mg/dL High Glucose (poc 148 device) Result Comment: No BRAVE per RN: PATIENT TYPE LAB PCSTYP *POC Capillary SAMPLE TYPE Blood XR CHEST PA AND Observed: 07/22/2018 Status: F Source: [facility] LATERAL 6:30 PM [facility] REPOSITORY EXAM: XR CHEST PA AND LATERAL, 07/22/2018 17:51 PM COMPARISON: June 27, 2018. CLINICAL INDICATIONS: sob RELEVANT CLINICAL HISTORY: R06.02:Shortness of breath FINDINGS: (Adequate technique) Tubes, Lines, and life support hardware: There is a right PICC with its tip at the atriocaval junction. Lungs: The lungs are clear. There are no pleural effusions. There is no pneumothorax. Cardiac, mediastinum, and hilum: The cardiomediastinal silhouette is within normal limits. ... Pulmonary Vessels: Normal, without PVH Bones, chest wall, and soft tissues: The visualized osseous structures are unremarkable. IMPRESSION: 1. No acute disease in the chest. 2. Right PICC tip at the atriocaval junction. ANKLE LEFT 3+ Observed: 07/22/2018 Status: F Source: [facility] VIEWS 6:17 PM [facility] REPOSITORY EXAM: XR FOOT LEFT 3 VIEWS, XR ANKLE LEFT 3+ VIEWS, 07/22/2018 17:52 PM (accession [id number]), 07/22/2018 17:51 PM (accession [id number]) COMPARISON: No prior studies available for comparison. CLINICAL INDICATIONS: cellulitis, concern for osteomyelitis RELEVANT CLINICAL HISTORY: L03:Cellulitis, unspecified cellulitis site FINDINGS: 3 nonweightbearing images of the left ankle and 3 nonweightbearing images of the left foot obtained. LEFT ANKLE: Soft Tissue: Soft tissue swelling is seen diffusely. Bone: No acute osseous abnormality is identified. There is calcaneal enthesopathy at the insertion of the plantar fascia. Joint: No evidence of dislocation. LEFT FOOT: Soft Tissue: Soft tissue swelling is evident. Bone: No acute osseous abnormality is identified. There is calcaneal enthesopathy at the insertion of the plantar fascia. Joint: No evidence of dislocation. The tarsal-metatarsal joints appear grossly intact. IMPRESSION: No acute osseous abnormality. Diffuse soft tissue swelling. FOOT LEFT 3 Observed: 07/22/2018 Status: F Source: [facility] 6:17 PM [facility] REPOSITORY EXAM: XR FOOT LEFT 3 VIEWS, XR ANKLE LEFT 3+ VIEWS, 07/22/2018 17:52 PM (accession [id number]), 07/22/2018 17:51 PM (accession [id number]) COMPARISON: No prior studies available for comparison. CLINICAL INDICATIONS: cellulitis, concern for osteomyelitis RELEVANT CLINICAL HISTORY: L:Cellulitis, unspecified cellulitis site FINDINGS: 3 nonweightbearing images of the left ankle and 3 nonweightbearing images of the left foot obtained. LEFT ANKLE: Soft Tissue: Soft tissue swelling is seen diffusely. Bone: No acute osseous abnormality is identified. There is calcaneal enthesopathy at the insertion of the plantar fascia. Joint: No evidence of dislocation. LEFT FOOT: Soft Tissue: Soft tissue swelling is evident. Bone: No acute osseous abnormality is identified. There is calcaneal enthesopathy at the insertion of the plantar fascia. Joint: No evidence of dislocation. The tarsal-metatarsal joints appear grossly intact. IMPRESSION: No acute osseous abnormality. Diffuse soft tissue swelling. TIBIA AND FIBULA Observed: 07/22/2018 Status: F Source: [facility] LEFT 6:07 PM [facility] REPOSITORY EXAM: XR TIBIA AND FIBULA LEFT, 07/22/2018 17:52 PM COMPARISON: No prior studies available for comparison. CLINICAL INDICATIONS: cellulitis, concern for osteomyelitis RELEVANT CLINICAL HISTORY: L03.90:Cellulitis, unspecified cellulitis site FINDINGS: 2 images obtained. Soft Tissue: Soft tissue swelling is seen diffusely. Bone: No fracture is identified. Mild periosteal reaction arising from the lateral mid tibial diaphysis. Joint: The proximal and distal tibiofibular syndesmosis appear intact. Tricompartmental degenerative changes are seen in the knee joint. IMPRESSION: Diffuse soft tissue swelling. Mild periosteal reaction arising from the lateral mid tibial diaphysis may represent osteomyelitis. Further evaluation with MRI may be beneficial as clinically indicated. HIP LEFT 2 VIEWS Observed: 07/22/2018 Status: F Source: [facility] 6:06 PM [facility] REPOSITORY EXAM: XR HIP LEFT 2 VIEWS,, 07/22/2018 17:52 PM COMPARISON: No prior studies available for comparison. CLINICAL INDICATIONS: pain with ambulation RELEVANT CLINICAL HISTORY: M25.552:Left hip pain FINDINGS: 2 images obtained. Soft Tissue: There is no obvious soft tissue swelling. Bone: No acute osseous abnormality is identified. Hip: The left hip is anatomically aligned with degenerative changes. IMPRESSION: Left hip osteoarthritis. No acute osseous abnormality identified. E W/ MICROSCOPIC-CHRI Collected: 07/22/2018 Status: F Source: [facility] 4:54 PM [facility] REPOSITORY TYPE CODE TESTS RESULT OUT OF RANGE REFERENCE UNITS LAB SAP SOLUTION MANAGER CONSULTANT Clear Appearance Urine Clear LAB SPGR 1.001-1.035 Specific [place] urine 1.020 LAB UPH 5.0-7.0 pH Urine 6.0 LAB UGL Negative mg/dL Glucose Urine Negative LAB UKET Negative Ketones Urine Negative LAB UPR Negative mg/dL Protein Abnormal Urine 100 LAB UURO <2.0 EU/dL Urobilinogen 0.2 urine LAB UNTR Negative Nitrites Urine Negative LAB ULEU Negative Leukocyte Esterase Negative LAB UBLD Negative Blood Urine Abnormal Large LAB COLR Yellow Color Yellow LAB UWBC 0-5 /HPF WBC Urine 0-5 LAB URBC 0-2 /HPF RBC Urine Abnormal >20 LAB BACT Absent Bacteria Abnormal Present LAB UCOM COMMENT URINE None LAB EPIS /HPF Squamous Epithelial 2+ Performed By: #### URNJ #### U [facility] [address] [place] [address] [facility] [address] [place], [place] [address] *POC GLUCOSE BATTERY Collected: 07/22/2018 Status: F Source: [facility] 4:48 PM [facility] REPOSITORY TYPE CODE TESTS RESULT OUT OF REFERENCE UNITS RANGE LAB GLUP 70-99 mg/dL High Glucose (poc 133 device) Result Comment: No BRAVE per RN: PATIENT TYPE LAB PCSTYP *POC Capillary SAMPLE TYPE Blood CBC WITH DIFF ENOCH Collected: 07/22/2018 Status: X Source: [facility] 4:26 PM [facility] REPOSITORY TYPE CODE TESTS RESULT OUT OF REFERENCE UNITS RANGE LAB CBCDFJ CBC WITH This DIFF ENOCH result has been cancelled. Performed By: #### CBCDFJ #### [facility] (DEFAULT) [address] [place] [address] LACTATE, BLOOD Collected: 07/22/2018 Status: F Source: [facility] 4:25 PM [facility] REPOSITORY TYPE CODE TESTS RESULT OUT OF RANGE REFERENCE UNITS LAB LACT 0.5-1.6 mmol/L High Lactate, 2.9 Blood Performed By: #### LACT #### [facility] [address] [place] [address] [facility] [address] [place] [address] URINALYSIS W REFLEX Collected: 07/22/2018 Status: F Source: [facility] CULTURE -CHRI 4:25 PM [facility] REPOSITORY TYPE CODE TESTS RESULT OUT OF RANGE REFERENCE UNITS LAB SAP SOLUTION MANAGER CONSULTANT Clear Appearance Urine Clear LAB SPGR 1.001-1.035 Specific [place] urine 1.020 LAB UGL Negative mg/dL Glucose Urine Negative LAB UKET Negative Ketones Urine Negative LAB UBLD Negative Blood Urine Abnormal Large LAB UPH 5.0-7.0 pH Urine 6.0 LAB UPR Negative mg/dL Protein Abnormal Urine 100 LAB UNTR Negative Nitrites Urine Negative LAB ULEU Negative Leukocyte Esterase Negative LAB COLR Yellow Color Yellow LAB UURO <2.0 EU/dL Urobilinogen 0.2 urine LAB UWBC 0-5 /HPF WBC Urine 0-5 LAB URBC 0-2 /HPF RBC Urine Abnormal >20 LAB BACT Absent Bacteria Abnormal Present LAB EPIS /HPF Squamous Epithelial 3+ LAB UCOM COMMENT URINE None Performed By: #### URN1J #### U [facility] [address] [place] [id number] [place] [address] [place] [address] PT*PTT - CHRI Collected: 07/22/2018 Status: F Source: [facility] 4:25 PM [facility] REPOSITORY TYPE CODE TESTS RESULT OUT OF RANGE REFERENCE UNITS LAB PT 11.9-14.2 sec High PT 17.4 LAB INR 0.9-1.1 High INR 1.4 LAB PTT 24.0-34.3 sec PTT 33.7 Performed By: #### CBCDFJ #### [facility], [facility] [address] [place] [address] #### CRP, ESR #### [facility] [address] [place] [phone] [place] [address] [place] [address] 34428 CHEM 6 - CHRI Collected: 07/22/2018 Status: F Source: [facility] 4:25 PM [facility] REPOSITORY TYPE CODE TESTS RESULT OUT OF REFERENCE UNITS RANGE LAB BUN 7-22 mg/dL BUN High 43 LAB CREA 0.50-1.20 mg/dL High Creatinine 1.61 LAB NA 133-143 mmol/L Sodium 137 LAB K 3.5-5.0 mmol/L Potassium 3.5 LAB CL 98-108 mmol/L Chloride 107 LAB CO2 22-30 mmol/L Low Carbon Dioxide 21 LAB GFR >60 mL/min/1.73 Low sqM Est GFR,non 32 Estonian LAB GFRA >60 mL/min/1.73 Low sqM Est GFR, 39 LAB GAP 7-17 mmol/L Anion Gap 13 Performed By: #### CBCDFJ #### [facility], [facility] [address] [place] [id number] #### CRP, ESR #### [facility] [address] [place] [id number] [place] [address] [place] [address] 17560 INORG PHOSPHATE - CHRI Collected: 07/22/2018 Status: F Source: [facility] 4:25 PM [facility] REPOSITORY TYPE CODE TESTS RESULT OUT OF REFERENCE UNITS RANGE LAB IP 2.2-4.6 mg/dL Inorg Phosphate 2.2 Performed By: #### CBCDFJ #### [facility], [facility] [address] [place] [address] #### CRP, ESR #### [facility] [address] [place] [phone] [place] [address] [place] [address] 22102 MAGNESIUM - CHRI Collected: 07/22/2018 Status: F Source: [facility] 4:25 PM [facility] REPOSITORY TYPE CODE TESTS RESULT OUT OF REFERENCE UNITS RANGE LAB MG 1.6-2.6 mg/dL Magnesium 2.0 Performed By: #### CBCDFJ #### [facility], [facility] [address] [place] [address] 825[address] #### CRP, ESR #### U [facility] [address] [place] [address] [facility] [address] [place] [address] 54660 CBC WITH DIFF ENOCH Collected: 07/22/2018 Status: F Source: [facility] 4:25 [facility] REPOSITORY TYPE CODE TESTS RESULT OUT OF RANGE REFERENCE UNITS LAB WBC 3.99-11.19 K/uL Low alert WBC Count 0.36 Result Comment: This result has been called to RENALDO CHEN by Yovani Brown on 07 22 2018 at 1705, and has been read back. LAB RBC 3.91-5.04 M/uL Low RBC Count 2.84 LAB HGB 11.4-15.2 g/dL Low Hemoglobin 7.8 LAB HCT 34.9-44.3 % Low Hematocrit 23.9 LAB MCV 79.6-97.7 fL Mean Cell Volume 84.2 LAB MCH 25.9-33.9 pg Mean Cell Hgb 27.5 LAB MCHC 31.4-35.9 g/dL Mean Cell Hgb Conc 32.6 LAB RDW 10.8-14.9 % RBC High Distribution 16.5 LAB PLT 150-393 K/uL Low Platelet Count alert 17 Result Comment: Automated platelet count confirmed by manual slide review This result has been called to RENALDO CHEN by Babs Munoz on 07 22 2018 at 1710, and has been read back. LAB MPV 8.5-12.2 fL Mean NOT Platelet Volume MEASURED LAB NRBC 0.0-0.2 /100 WBC 0.0 NUCLEATED RBC Performed By: #### CBCDFJ #### [facility] [address] [place] [address] #### CRP, ESR #### U [facility] [address] [place] [phone] [place] [address] [address] [place] [address] TROPONIN - CHRI Collected: 07/22/2018 Status: F Source: [facility] 4:25 PM [facility] REPOSITORY TYPE CODE TESTS RESULT OUT OF REFERENCE UNITS RANGE LAB TROP <0.11 ng/mL Troponin I 0.02 Performed By: #### CBCDFJ #### [facility] [address] [place] [address] #### CRP, ESR #### U [facility] [address] [place] [address] [facility] [address] [place] [address] 58081 C REACTIVE PROTEIN Collected: 07/22/2018 Status: F Source: [facility] 4:25 [facility] REPOSITORY TYPE CODE TESTS RESULT OUT OF REFERENCE UNITS RANGE LAB CRP <10.00 mg/L C High Reactive 31.90 Protein Performed By: #### CBCDFJ #### [facility] [address] [place] [address] #### CRP, ESR #### U [facility] [address] [place] [address] [facility] [address] [place] [address] 09834 ESR WESTERGREN Collected: 07/22/2018 Status: F Source: [facility] 4:25 PM [facility] REPOSITORY TYPE CODE TESTS RESULT OUT OF REFERENCE UNITS RANGE LAB ESR <30 mm/hr ESR Westergren 2 Performed By: #### CBCDFJ #### [place], [facility] [address] [place] [address] #### CRP, ESR #### [facility] [address] [place] [address] [facility] [address] [place] [address] 10810 Observed: 07/22/2018 Status: F Source: [facility] BLOOD:ROUTINE II 4:15 PM [facility] REPOSITORY SOURCE: BLOOD, PERIPHERAL: Site not specified RESULT: NO GROWTH DAY 5 OF 5 REPORT STATUS: 07/27/2018 FINAL Performed By: #### FAST2 #### [facility] [address] [place] [address] Blood Cultures processed at: [facility] Observed: 07/22/2018 Status: F Source: [facility] BLOOD: LINE ASSESSMENT 4:00 PM [facility] REPOSITORY SOURCE: LINE, PICC: PURPLE RESULT: NO GROWTH DAY 5 OF 5 REPORT STATUS: 07/27/2018 FINAL Performed By: #### LINE #### [place] [address] Blood Cultures processed at: [facility] Observed: 07/22/2018 Status: F Source: [facility] TYPE AND CROSS 12:25 PM [facility] REPOSITORY ABO/RH(D): O POSITIVE ANTIBODY SCREEN: NEGATIVE UNIT NUMBER: [id number] BLOOD COMPONENT TYPE: Red Cell,Leukoreduced,[id number] STATUS OF UNIT: Issued, Final TRANSFUSION STATUS: OK TO TRANSFUSE CROSSMATCH RESULT: Electronically Compatible Performed By: #### XM #### [facility] [place] [address] Observed: 07/22/2018 Status: F Source: [facility] TRANSFUSE PLATELETS 12:06 PM [facility] REPOSITORY CROSSMATCH EXPIRATION: 07/23/2018 UNIT NUMBER: [id number] BLOOD COMPONENT TYPE: Platelet Pheresis,Leukoreduced,[id number] STATUS OF UNIT: REL FROM [facility]OC TRANSFUSION STATUS: OK TO TRANSFUSE UNIT NUMBER: [id number] BLOOD COMPONENT TYPE: Platelet Pheresis,Leukoreduced,[id number] STATUS OF UNIT: Issued, Final TRANSFUSION STATUS: OK TO TRANSFUSE UNIT NUMBER: [id number] BLOOD COMPONENT TYPE: Platelet Pheresis,Leukoreduced,[id number] STATUS OF UNIT: Issued, Final TRANSFUSION STATUS: OK TO TRANSFUSE Performed By: #### TPLT #### [facility] [address] [place] [address] [facility] [address] [place], [place] [address] COMPREHENSIVE METABOLIC Collected: 07/21/2018 Status: F Source: [facility] 9:50 AM [facility] [place] [place] Order Comment: IF CRITICAL CALL [phone] TYPE CODE TESTS RESULT OUT OF RANGE REFERENCE UNITS LAB L501.0100 74-106 mg/dL High GLU 131 Result Comment: Fasting Glucose result greater than or equal to 126 mg/dL suggests DIABETES MELLITUS per A.D.A. criteria. Please note revised GLUCOSE reference range effective 2017. LAB L501.1000 7-18 mg/dL High BUN 49 LAB L501.1100 0.55-1.02 mg/dL High CREAT,SERUM 1.70 Result Comment: The validity of the calculated GFR AND GFRAA in patients over 70 years has not been determined. Clinical correlation is essential. LAB L501.1110 >60 mL/min Low EST GFR 32 Result Comment: Non- GFR Calc LAB L501.1115 >60 mL/min Low EST GFR - AA 39 Result Comment: GFR Calc LAB L501.1300 10-20 RATIO High BUN/CRE 28.8 LAB L501.1500 6.4-8.2 g/dL Low T PROT 5.2 LAB L501.1800 3.2-5.0 g/dL Low ALB 2.3 LAB L501.1950 2.2-4.2 g/dL Normal GLOB 2.9 LAB L501.2000 0.9-2.4 RATIO Low A/G 0.8 LAB L501.2200 8.5-10.1 mg/dL Low CA 7.3 LAB L501.4100 15-37 U/L Normal AST 21 LAB L501.4305 45-117 U/L High ALK P 188 LAB L501.4405 13-56 U/L Normal ALT 30 LAB L501.4600 0.20-1.00 mg/dL High T BILI 1.70 LAB L501.5300 136-145 mmol/L NA Normal 141 LAB L501.5600 3.5-5.1 mmol/L K Normal 3.5 LAB L501.5900 98-107 mmol/L High CL 108 LAB L501.6100 21.0-32.0 mmol/L Normal CO2 25.0 LAB L501.6200 5-15 Normal GAP 8 Performed By: #### L500.4050 #### [facility] [place], [address] CBC W/DIFF, AUTOMATED Collected: 07/21/2018 Status: C Source: [place] 9:50 AM [facility] [place] Order Comment: IF CRITICAL CALL [phone] TYPE CODE TESTS RESULT OUT OF RANGE REFERENCE UNITS LAB L100.1000 4.4-11.0 K/mm3 Low alert WBC 0.2 Result Comment: CRITICAL VALUE VERIFIED. CALLED TO [facility] 07/21/18 1044 Blair Saenz. RESULTS READ BACK BY SAME. LAB L100.1200 4.2-5.4 M/mm3 Low RBC 2.87 LAB L100.1300 12.0-15.0 g/dl Low HGB 7.8 LAB L100.1400 37-47 % Low HCT 23.9 LAB L100.1500 81-99 fL Normal MCV 83.3 LAB L100.1600 27.0-32.0 pg Normal MCH 27.2 LAB L100.1700 32-36 g/gl Normal MCHC 32.6 LAB L100.1810 11.6-14.6 % High RDW 16.5 CV LAB L100.1820 35.1-43.9 fl High RDW 51.1 SD LAB L100.1900 150-450 K/mm3 Low alert PLT 17 Result Comment: CRITICAL VALUE VERIFIED. CALLED TO [facility] 07/21/18 1044 Blair Saenz. RESULTS READ BACK BY SAME. LAB L100.3100 MANUAL DIFF 25 Normal CELLS COUNTED LAB L100.3200 47-70 % Low 8 SEGS LAB L100.3800 19-41 % 68 High LYMPH LAB L100.3900 0-10 % 8 Normal MONOCYTE LAB L100.4000 0-5 % 16 High EOS LAB L100.5500 ADEQ Normal PLT EST MKD DEC LAB L100.5650 Normal PLT MORPH LARGE LAB L100.7000 NORM C AND NORMAL C Normal RED CELL MORPH NORM C+C LAB L100.2620 2.0-7.7 X10 3/uL Low Absolute Neut 0.0 LAB L100.2720 0.83-4.51 X10 3/ul Low Absolute Lymph 0.14 LAB L100.9900 Normal PATH REV Reviewed Result Comment: Pancytopenia. Clinical correlation necessary. Bill Kenney M.D. 07/21/18 AMENDED REPORT 07/21/18 [id number] PATH REV previously reported as: December Performed By: #### L100.0100 #### [facility] [address] [place], [address] *POC GLUCOSE BATTERY Collected: 07/16/2018 Status: F Source: [facility] 1:43 PM [facility] REPOSITORY TYPE CODE TESTS RESULT OUT OF REFERENCE UNITS RANGE LAB GLUP 70-99 mg/dL High Glucose (poc 282 device) Result Comment: No BRAVE per RN: PATIENT TYPE LAB PCSTYP *POC Capillary SAMPLE TYPE Blood *POC GLUCOSE BATTERY Collected: 07/16/2018 Status: F Source: [facility] 10:47 AM [facility] REPOSITORY TYPE CODE TESTS RESULT OUT OF REFERENCE UNITS RANGE LAB GLUP 70-99 mg/dL High Glucose (poc 241 device) Result Comment: No BRAVE per RN: PATIENT TYPE LAB PCSTYP *POC Capillary SAMPLE TYPE Blood *POC GLUCOSE BATTERY Collected: 07/16/2018 Status: F Source: [facility] 10:19 AM [facility] REPOSITORY TYPE CODE TESTS RESULT OUT OF REFERENCE UNITS RANGE LAB GLUP 70-99 mg/dL High Glucose (poc 266 device) Result Comment: No BRAVE per RN: PATIENT TYPE LAB PCSTYP *POC Capillary SAMPLE TYPE Blood *POC GLUCOSE BATTERY Collected: 07/16/2018 Status: F Source: [facility] 6:34 AM [facility] REPOSITORY TYPE CODE TESTS RESULT OUT OF REFERENCE UNITS RANGE LAB GLUP 70-99 mg/dL High Glucose (poc 176 device) Result Comment: No BRAVE per RN: PATIENT TYPE LAB PCSTYP *POC Capillary SAMPLE TYPE Blood CALCIUM Collected: 07/16/2018 Status: F Source: [facility] 4:16 AM [facility] REPOSITORY TYPE CODE TESTS RESULT OUT OF REFERENCE UNITS RANGE LAB CA 8.6-10.5 mg/dL Low Calcium 8.4 Performed By: #### CA, CHM7, HFP, IPB, LDO, MGO, URICB, CBCDFC #### [facility] [phone] [place] [address] [place] [address] 86687 CHEM 7 Collected: 07/16/2018 Status: F Source: [facility] 4:16 AM [facility] REPOSITORY TYPE CODE TESTS RESULT OUT OF REFERENCE UNITS RANGE LAB BUN 7-22 mg/dL BUN High 54 LAB NA 133-143 mmol/L Sodium 140 LAB K 3.5-5.0 mmol/L Potassium 3.9 LAB CL 98-108 mmol/L Chloride 107 LAB CO2 22-30 mmol/L Carbon Dioxide 26 LAB GLUC 70-99 mg/dL Glucose High 190 LAB CREA 0.50-1.20 mg/dL High Creatinine 1.44 LAB GAP 7-17 mmol/L Anion Gap 11 LAB BC BUN/CREA Ratio 38 LAB OSMC 278-305 mOsm/kg High Osmolality 313 (Calc) LAB GFR >60 mL/min/1.73 Low sqM Est GFR,non 37 Estonian LAB GFRA >60 mL/min/1.73 Low sqM Est GFR, 44 Performed By: #### CA, CHM7, HFP, IPB, LDO, MGO, URICB, CBCDFC #### [facility] [address] [place] [address] HEPATIC FUNCTION Collected: 07/16/2018 Status: F Source: [facility] PANEL 4:16 AM [facility] REPOSITORY TYPE CODE TESTS RESULT OUT OF REFERENCE UNITS RANGE LAB ALB 3.5-5.0 g/dL Low Albumin 2.5 LAB BILD <0.3 mg/dL Bilirubin High Direct 0.5 LAB BILT <1.5 mg/dL Bilirubin Total 1.4 LAB ALP 32-126 U/L Alkaline High Phosphatase 137 LAB ALT 9-48 U/L ALT 31 LAB AST 14-40 U/L AST High 42 LAB TP 6.4-8.3 g/dL Low Total Protein 5.2 Performed By: #### CA, CHM7, HFP, IPB, LDO, MGO, URICB, CBCDFC #### [facility] [address] [facility] [address] [place] [address] INORGANIC PHOSPHATE Collected: 07/16/2018 Status: F Source: [facility] 4:16 AM [facility] REPOSITORY TYPE CODE TESTS RESULT OUT OF REFERENCE UNITS RANGE LAB IP 2.2-4.6 mg/dL Inorg Phosphate 3.3 Performed By: #### CA, CHM7, HFP, IPB, LDO, MGO, URICB, CBCDFC #### [facility] [address] [place] [phone] [place] [address] [place] [address] 58614 LD TOTAL Collected: 07/16/2018 Status: F Source: [facility] 4:16 [facility] REPOSITORY TYPE CODE TESTS RESULT OUT OF RANGE REFERENCE UNITS LAB LD 100-190 U/L High LD Total 283 Performed By: #### CA, CHM7, HFP, IPB, LDO, MGO, URICB, CBCDFC #### [facility] [address] [place] [address] [place] [address] MAGNESIUM Collected: 07/16/2018 Status: F Source: [facility] 4:16 [facility] REPOSITORY TYPE CODE TESTS RESULT OUT OF REFERENCE UNITS RANGE LAB MG 1.6-2.6 mg/dL Magnesium 1.9 Performed By: #### CA, CHM7, HFP, IPB, LDO, MGO, URICB, CBCDFC #### [facility] [address] [place] [address] [place] [address] 05929 URIC ACID Collected: 07/16/2018 Status: F Source: [facility] 4:16 [facility] REPOSITORY TYPE CODE TESTS RESULT OUT OF RANGE REFERENCE UNITS LAB URIC 2.8-6.0 mg/dL High Uric Acid 6.3 Performed By: #### CA, CHM7, HFP, IPB, LDO, MGO, URICB, CBCDFC #### [facility] [address] [place] [phone] [place] [address] [place] [address]140 CBC,PLATELET,DIFFERENTIAL - CCL Collected: Status: F Source: [facility] 07/16/2018 4:16 AM [facility] REPOSITORY TYPE CODE TESTS RESULT OUT OF REFERENCE UNITS RANGE LAB WBC 3.99-11.19 K/uL WBC Count 9.60 LAB RBC 3.91-5.04 M/uL RBC Count 3.11 Low LAB HGB 11.4-15.2 g/dL Hemoglobin 8.7 Low LAB HCT 34.9-44.3 % Hematocrit 26.8 Low LAB MCV 79.6-97.7 fL Mean Cell 86.2 Volume LAB MCH 25.9-33.9 pg Mean Cell 28.0 Hgb LAB MCHC 31.4-35.9 g/dL Mean Cell 32.5 Hgb Conc LAB RDW 10.8-14.9 % RBC 16.9 High Distribution LAB PLT 150-393 K/uL Platelet 51 Low Count LAB MPV 8.5-12.2 fL Mean 11.4 Platelet Volume LAB NRBC 0.0-0.2 /100 WBC NUCLEATED 0.0 RBC LAB DTYPE Manual DIFFERENTIAL TYPE Differential LAB SEGS % NEUTROPHIL 99.1 SEGMENTED LAB LYM % LYMPHOCYTE 0.9 % LAB MON % MONOCYTE % 0.0 LAB EOS % *EOSINOPHIL 0.0 % LAB BASO % BASOPHIL % 0.0 LAB BAND % BAND 0.0 NEUTROPHIL % LAB SBANS 1.64-7.28 K/uL SEGS + 9.51 High Bands,Absolute LAB ALYM 1.16-3.51 K/uL Abs Lymph 0.09 Low LAB AMONO 0.22-0.87 K/uL Abs Laurel 0.00 Low LAB AEOS 0.00-0.42 K/uL Abs Eos 0.00 LAB ABASO 0.00-0.15 K/uL Abs Baso 0.00 LAB OVALO OVALOCYTES Present LAB PLTEST PLATELET Automated ESTIMATE platelet count confirmed by manual slide review. Performed By: #### CA, CHM7, HFP, IPB, LDO, MGO, URICB, CBCDFC #### [facility] [address] [place] [address] [place] [address] *POC GLUCOSE BATTERY Collected: 07/15/2018 Status: F Source: [facility] 9:06 PM [facility] REPOSITORY TYPE CODE TESTS RESULT OUT OF REFERENCE UNITS RANGE LAB GLUP 70-99 mg/dL High Glucose (poc 373 device) Result Comment: No BRAVE per RN: PATIENT TYPE LAB PCSTYP *POC Capillary SAMPLE TYPE Blood *POC GLUCOSE BATTERY Collected: 07/15/2018 Status: F Source: [facility] 5:24 PM [facility] REPOSITORY TYPE CODE TESTS RESULT OUT OF REFERENCE UNITS RANGE LAB GLUP 70-99 mg/dL High Glucose (poc 377 device) Result Comment: No BRAVE per RN: PATIENT TYPE LAB PCSTYP *POC Capillary SAMPLE TYPE Blood CALCIUM Collected: 07/15/2018 Status: F Source: [facility] 4:57 PM [facility] REPOSITORY TYPE CODE TESTS RESULT OUT OF REFERENCE UNITS RANGE LAB CA 8.6-10.5 mg/dL Low Calcium 8.2 Performed By: #### CA, CHM7, IPB, LDO, URICB #### [facility] [address] [place] [address] [place] [address] CHEM 7 Collected: 07/15/2018 Status: F Source: [facility] 4:57 PM [facility] REPOSITORY TYPE CODE TESTS RESULT OUT OF REFERENCE UNITS RANGE LAB BUN 7-22 mg/dL BUN High 53 LAB NA 133-143 mmol/L Sodium 137 LAB K 3.5-5.0 mmol/L Potassium 4.2 LAB CL 98-108 mmol/L Chloride 106 LAB CO2 22-30 mmol/L Carbon Dioxide 23 LAB GLUC 70-99 mg/dL Glucose High 398 LAB CREA 0.50-1.20 mg/dL High Creatinine 1.53 LAB GAP 7-17 mmol/L Anion Gap 12 LAB BC BUN/CREA Ratio 35 LAB [facility] 278-305 mOsm/kg High Osmolality 321 (Calc) LAB GFR >60 mL/min/1.73 Low sqM Est GFR,non 34 Estonian LAB GFRA >60 mL/min/1.73 Low sqM Est GFR, 41 Performed By: #### CA, CHM7, IPB, LDO, URICB #### [facility] [address] [place] [id number] [place] [address] [place] [address] INORGANIC PHOSPHATE Collected: 07/15/2018 Status: F Source: [facility] 4:57 PM [facility] REPOSITORY TYPE CODE TESTS RESULT OUT OF REFERENCE UNITS RANGE LAB IP 2.2-4.6 mg/dL Inorg Phosphate 3.2 Performed By: #### CA, CHM7, IPB, LDO, URICB #### [facility] [address] [place] [address] [place] [address] LD TOTAL Collected: 07/15/2018 Status: F Source: [facility] 4:57 PM [facility] REPOSITORY TYPE CODE TESTS RESULT OUT OF RANGE REFERENCE UNITS LAB LD 100-190 U/L High LD Total 294 Performed By: #### CA, CHM7, IPB, LDO, URICB #### [facility] [address] [place] [address] [place] [address] URIC ACID Collected: 07/15/2018 Status: F Source: [facility] 4:57 PM [facility] REPOSITORY TYPE CODE TESTS RESULT OUT OF RANGE REFERENCE UNITS LAB URIC 2.8-6.0 mg/dL Uric Acid 6.0 Performed By: #### CA, CHM7, IPB, LDO, URICB #### [facility] [address] [place] [address] [place] [address] *POC GLUCOSE BATTERY Collected: 07/15/2018 Status: F Source: [facility] 12:33 PM [facility] REPOSITORY TYPE CODE TESTS RESULT OUT OF REFERENCE UNITS RANGE LAB GLUP 70-99 mg/dL High Glucose (poc 384 device) Result Comment: No BRAVE per RN: PATIENT TYPE LAB PCSTYP *POC Capillary SAMPLE TYPE Blood *POC GLUCOSE BATTERY Collected: 07/15/2018 Status: F Source: [facility] 10:15 AM [facility] REPOSITORY TYPE CODE TESTS RESULT OUT OF REFERENCE UNITS RANGE LAB GLUP 70-99 mg/dL High Glucose (poc 305 device) Result Comment: No BRAVE per RN: PATIENT TYPE LAB PCSTYP *POC Capillary SAMPLE TYPE Blood *POC GLUCOSE BATTERY Collected: 07/15/2018 Status: F Source: [facility] 7:58 AM [facility] REPOSITORY TYPE CODE TESTS RESULT OUT OF REFERENCE UNITS RANGE LAB GLUP 70-99 mg/dL High Glucose (poc 263 device) Result Comment: No BRAVE per RN: PATIENT TYPE LAB PCSTYP *POC Capillary SAMPLE TYPE Blood *POC GLUCOSE BATTERY Collected: 07/15/2018 Status: F Source: [facility] 7:19 AM [facility] REPOSITORY TYPE CODE TESTS RESULT OUT OF REFERENCE UNITS RANGE LAB GLUP 70-99 mg/dL High Glucose (poc 248 device) Result Comment: No BRAVE per RN: PATIENT TYPE LAB PCSTYP *POC Capillary SAMPLE TYPE Blood Observed: 07/15/2018 Status: F Source: [facility] TYPE AND CROSS 4:39 AM [facility] REPOSITORY ABO/RH(D): O POSITIVE ANTIBODY SCREEN: NEGATIVE UNIT NUMBER: [id number] BLOOD COMPONENT TYPE: Red Cell,Leukoreduced,[id number] STATUS OF UNIT: Issued, Final TRANSFUSION STATUS: OK TO TRANSFUSE CROSSMATCH RESULT: Electronically Compatible Performed By: #### XM #### [place] [address] CALCIUM Collected: 07/15/2018 Status: F Source: [facility] 4:36 AM [facility] REPOSITORY TYPE CODE TESTS RESULT OUT OF REFERENCE UNITS RANGE LAB CA 8.6-10.5 mg/dL Low Calcium 8.2 Performed By: #### CA, CHM7, HFP, IPB, LDO, MGO, URICB, CBCDFC #### [place] [address] CHEM 7 Collected: 07/15/2018 Status: F Source: [facility] 4:36 AM [facility] REPOSITORY TYPE CODE TESTS RESULT OUT OF REFERENCE UNITS RANGE LAB BUN 7-22 mg/dL BUN High 49 LAB NA 133-143 mmol/L Sodium 138 LAB K 3.5-5.0 mmol/L Potassium 4.2 LAB CL 98-108 mmol/L Chloride 107 LAB CO2 22-30 mmol/L Carbon Dioxide 22 LAB GLUC 70-99 mg/dL Glucose High 296 LAB CREA 0.50-1.20 mg/dL High Creatinine 1.39 LAB GAP 7-17 mmol/L Anion Gap 13 LAB BC BUN/CREA Ratio 35 LAB [facility] 278-305 mOsm/kg High Osmolality 315 (Calc) LAB GFR >60 mL/min/1.73 Low sqM Est GFR,non 38 Estonian LAB GFRA >60 mL/min/1.73 Low sqM Est GFR, 46 Performed By: #### CA, CHM7, HFP, IPB, LDO, MGO, URICB, CBCDFC #### [facility] [address] [place] [address] [place] [address] HEPATIC FUNCTION Collected: 07/15/2018 Status: F Source: [facility] 4:36 AM [facility] REPOSITORY TYPE CODE TESTS RESULT OUT OF REFERENCE UNITS RANGE LAB ALB 3.5-5.0 g/dL Low Albumin 2.4 LAB BILD <0.3 mg/dL Bilirubin High Direct 0.4 LAB BILT <1.5 mg/dL Bilirubin Total 1.3 LAB ALP 32-126 U/L Alkaline High Phosphatase 139 LAB ALT 9-48 U/L ALT 25 LAB AST 14-40 U/L AST 33 LAB TP 6.4-8.3 g/dL Low Total Protein 5.0 Performed By: #### CA, CHM7, HFP, IPB, LDO, MGO, URICB, CBCDFC #### [facility] [address] [place] [address] [place] [address] INORGANIC PHOSPHATE Collected: 07/15/2018 Status: F Source: [facility] 4:36 AM [facility] REPOSITORY TYPE CODE TESTS RESULT OUT OF REFERENCE UNITS RANGE LAB IP 2.2-4.6 mg/dL Inorg Phosphate 3.4 Performed By: #### CA, CHM7, HFP, IPB, LDO, MGO, URICB, CBCDFC #### [facility] [address] [place] [phone] [place] [address] [place] [address] LD TOTAL Collected: 07/15/2018 Status: F Source: [facility] 4:36 AM [facility] REPOSITORY TYPE CODE TESTS RESULT OUT OF RANGE REFERENCE UNITS LAB LD 100-190 U/L High LD Total 264 Performed By: #### CA, CHM7, HFP, IPB, LDO, MGO, URICB, CBCDFC #### [facility] [address] [place] [address] [facility] [address] [place] [address] MAGNESIUM Collected: 07/15/2018 Status: F Source: [facility] 4:36 AM [facility] REPOSITORY TYPE CODE TESTS RESULT OUT OF REFERENCE UNITS RANGE LAB MG 1.6-2.6 mg/dL Magnesium 2.0 Performed By: #### CA, CHM7, HFP, IPB, LDO, MGO, URICB, CBCDFC #### [facility] [address] [place] [phone] [place] [address] [place] [address] URIC ACID Collected: 07/15/2018 Status: F Source: [facility] 4:36 AM [facility] REPOSITORY TYPE CODE TESTS RESULT OUT OF RANGE REFERENCE UNITS LAB URIC 2.8-6.0 mg/dL High Uric Acid 6.2 Performed By: #### CA, CHM7, HFP, IPB, LDO, MGO, URICB, CBCDFC #### [facility] [address] [place] [phone] [place] [address] [place] [address] CBC,PLATELET,DIFFERENTIAL - CCL Collected: Status: F Source: [facility] 07/15/2018 4:36 AM [facility] REPOSITORY TYPE CODE TESTS RESULT OUT OF REFERENCE UNITS RANGE LAB WBC 3.99-11.19 K/uL WBC Count 8.02 LAB RBC 3.91-5.04 M/uL RBC Count 2.82 Low LAB HGB 11.4-15.2 g/dL Hemoglobin 8.0 Low LAB HCT 34.9-44.3 % Hematocrit 24.4 Low LAB MCV 79.6-97.7 fL Mean Cell 86.5 Volume LAB MCH 25.9-33.9 pg Mean Cell Hgb 28.4 LAB MCHC 31.4-35.9 g/dL Mean Cell Hgb 32.8 Conc LAB RDW 10.8-14.9 % RBC 17.1 High Distribution LAB PLT 150-393 K/uL Platelet Count 47 Low LAB MPV 8.5-12.2 fL Mean Platelet 10.8 Volume LAB NRBC 0.0-0.2 /100 WBC NUCLEATED RBC 0.0 LAB DTYPE DIFFERENTIAL Manual TYPE Differential LAB SEGS % NEUTROPHIL 100.0 SEGMENTED LAB LYM % LYMPHOCYTE % 0.0 LAB MON % MONOCYTE % 0.0 LAB EOS % *EOSINOPHIL % 0.0 LAB BASO % BASOPHIL % 0.0 LAB BAND % BAND 0.0 NEUTROPHIL % LAB SBANS 1.64-7.28 K/uL SEGS + 8.02 High Bands,Absolute LAB ALYM 1.16-3.51 K/uL Abs Lymph 0.00 Low LAB AMONO 0.22-0.87 K/uL Abs Laurel 0.00 Low LAB AEOS 0.00-0.42 K/uL Abs Eos 0.00 LAB ABASO 0.00-0.15 K/uL Abs Baso 0.00 LAB OVALO OVALOCYTES Present LAB POLYCH POLYCHROMASIA 1+ LAB PLTEST PLATELET ESTIMATE Automated platelet count confirmed by manual slide review. Performed By: #### CA, CHM7, HFP, IPB, LDO, MGO, URICB, CBCDFC #### [facility] [address] [place] [address] [address] [place] [address] *POC GLUCOSE BATTERY Collected: 07/14/2018 Status: F Source: [facility] 11:46 PM [facility] REPOSITORY TYPE CODE TESTS RESULT OUT OF REFERENCE UNITS RANGE LAB GLUP 70-99 mg/dL High Glucose (poc 301 device) Result Comment: No BRAVE per RN: PATIENT TYPE LAB PCSTYP *POC Capillary SAMPLE TYPE Blood *POC GLUCOSE BATTERY Collected: 07/14/2018 Status: F Source: [facility] 8:59 PM [facility] REPOSITORY TYPE CODE TESTS RESULT OUT OF REFERENCE UNITS RANGE LAB GLUP 70-99 mg/dL High Glucose (poc 361 device) Result Comment: No BRAVE per RN: PATIENT TYPE LAB PCSTYP *POC Capillary SAMPLE TYPE Blood *POC GLUCOSE BATTERY Collected: 07/14/2018 Status: F Source: [facility] 5:57 PM [facility] REPOSITORY TYPE CODE TESTS RESULT OUT OF REFERENCE UNITS RANGE LAB GLUP 70-99 mg/dL High Glucose (poc 337 device) Result Comment: No BRAVE per RN: PATIENT TYPE LAB PCSTYP *POC Capillary SAMPLE TYPE Blood CALCIUM Collected: 07/14/2018 Status: F Source: [facility] 5:48 PM [facility] REPOSITORY TYPE CODE TESTS RESULT OUT OF REFERENCE UNITS RANGE LAB CA 8.6-10.5 mg/dL Low Calcium 8.0 Performed By: #### CA, CHM7, IPB, LDO, URICB #### [facility] [address] [place] [id number] [place] [address] [place] [address] CHEM 7 Collected: 07/14/2018 Status: F Source: [facility] 5:48 PM [facility] REPOSITORY TYPE CODE TESTS RESULT OUT OF REFERENCE UNITS RANGE LAB BUN 7-22 mg/dL BUN High 47 LAB NA 133-143 mmol/L Sodium 137 LAB K 3.5-5.0 mmol/L Potassium 4.3 LAB CL 98-108 mmol/L Chloride 107 LAB CO2 22-30 mmol/L Low Carbon Dioxide 21 LAB GLUC 70-99 mg/dL Glucose High 351 LAB CREA 0.50-1.20 mg/dL High Creatinine 1.47 LAB GAP 7-17 mmol/L Anion Gap 13 LAB BC BUN/CREA Ratio 32 LAB [facility] 278-305 mOsm/kg High Osmolality 316 (Calc) LAB GFR >60 mL/min/1.73 Low sqM Est GFR,non 36 Estonian LAB GFRA >60 mL/min/1.73 Low sqM Est GFR, 43 Performed By: #### CA, CHM7, IPB, LDO, URICB #### [facility] [address] [place] [phone] [place] [address] [place] [address] INORGANIC PHOSPHATE Collected: 07/14/2018 Status: F Source: [facility] 5:48 PM [facility] REPOSITORY TYPE CODE TESTS RESULT OUT OF REFERENCE UNITS RANGE LAB IP 2.2-4.6 mg/dL Inorg Phosphate 3.2 Performed By: #### CA, CHM7, IPB, LDO, URICB #### [facility] [address] [place] [address] [facility] [address] [place] [address] 9[address] LD TOTAL Collected: 07/14/2018 Status: F Source: [facility] 5:48 PM [facility] REPOSITORY TYPE CODE TESTS RESULT OUT OF RANGE REFERENCE UNITS LAB LD 100-190 U/L High LD Total 331 Performed By: #### CA, CHM7, IPB, LDO, URICB #### [facility] [address] [place] [phone] [place] [address] [place] [address] URIC ACID Collected: 07/14/2018 Status: F Source: [facility] 5:48 PM [facility] REPOSITORY TYPE CODE TESTS RESULT OUT OF RANGE REFERENCE UNITS LAB URIC 2.8-6.0 mg/dL High Uric Acid 6.2 Performed By: #### CA, CHM7, IPB, LDO, URICB #### [facility] [address] [place] [phone] [place] [address] [place] [address] XR FLUORO LUMBAR Observed: 07/14/2018 Status: F Source: [facility] PUNCTURE WITH 4:19 PM [facility] REPOSITORY EXAM: IR XR FLUORO LUMBAR PUNCTURE WITH CHEMOTHERAPY, 07/14/2018 16:02 PM CLINICAL INDICATIONS: 63 years Female DLBCL therapeutic and diagnostic , RELEVANT CLINICAL HISTORY: COMPARISON: CT the abdomen pelvis on 06/27/2018. TECHNIQUE AND FINDINGS: The chemotherapy type and dosage was verified by Dr. Karen Trejo and myself GIFTY Montaño. The lumbar puncture portion was performed by GIFTY Montaño. Fluoroscopy Time: 0.2 Consent: The risks (including, but not limited to bleeding, infection, severe headache, and nerve damage), benefits, and alternatives of procedure were discussed with the patient who provided written and verbal consent. Position: The patient was placed in a prone position on the fluoroscopy table. The overlying skin was marked, prepped and sterilely draped and prepped utilizing sterile barrier technique at the appropriate vertebral body level. Procedure: A time-out was performed. 2 mL 1% Lidocaine was used to locally anesthetize the puncture site. Lumbar puncture was performed under fluoroscopic guidance at the L2-L3 interlaminar space using a 3.5 inch 20 gauge spinal needle. 12 ml of clear colorless cerebrospinal fluid was removed and sent to the laboratory for analysis. Intrathecal chemotherapy administration was then performed by Dr. Nikolay Waggoner with 12 mg of Methotrexate (PF) in 3 mL Gianni's B solution slowly instilled into the thecal sac at 1551 hours. The needle was then removed and a bandage applied to the site. Total needle time was from 1541 to 1554 hours. All materials utilized for chemotherapy administration or potentially contaminated were disposed of in designated containers. The patient tolerated the procedure well without any immediate complications. Blood loss: None. IMPRESSION: 1. Successful fluoroscopic-guided lumbar puncture with intrathecal chemotherapy administration as described above. 2. 12 mg of Methotrexate (PF) in 3mL of Gianni's B solution administered on 07/14/2018 at 1551 hours. I, Karen Trejo M.D., attest that I was present and provided direct supervision of this procedure. I personally viewed and interpreted these images and I have reviewed and approved this report. ELET COUNT Collected: 07/14/2018 Status: F Source: [facility] 1:07 PM [facility] REPOSITORY TYPE CODE TESTS RESULT OUT OF REFERENCE UNITS RANGE LAB PLT 150-393 K/uL Low Platelet Count 56 LAB MPV 8.5-12.2 fL Mean Platelet 11.0 Volume Performed By: #### PLAT #### [facility] [address] [place] [address] *POC GLUCOSE BATTERY Collected: 07/14/2018 Status: F Source: [facility] 11:31 AM [facility] REPOSITORY TYPE CODE TESTS RESULT OUT OF REFERENCE UNITS RANGE LAB GLUP 70-99 mg/dL High Glucose (poc 278 device) Result Comment: No BRAVE per RN: PATIENT TYPE LAB PCSTYP *POC Capillary SAMPLE TYPE Blood *POC GLUCOSE BATTERY Collected: 07/14/2018 Status: F Source: [facility] 10:34 AM [facility] REPOSITORY TYPE CODE TESTS RESULT OUT OF REFERENCE UNITS RANGE LAB GLUP 70-99 mg/dL High Glucose (poc 268 device) Result Comment: No BRAVE per RN: PATIENT TYPE LAB PCSTYP *POC Capillary SAMPLE TYPE Blood *POC GLUCOSE BATTERY Collected: 07/14/2018 Status: F Source: [facility] 8:21 AM [facility] REPOSITORY TYPE CODE TESTS RESULT OUT OF REFERENCE UNITS RANGE LAB GLUP 70-99 mg/dL High Glucose (poc 237 device) Result Comment: No BRAVE per RN: PATIENT TYPE LAB PCSTYP *POC Capillary SAMPLE TYPE Blood Observed: 07/14/2018 Status: F Source: [facility] TRANSFUSE PLATELETS 7:19 AM [facility] REPOSITORY CROSSMATCH EXPIRATION: 07/15/2018 UNIT NUMBER: [id number] BLOOD COMPONENT TYPE: Platelet Pheresis,Leukoreduced,[id number] STATUS OF UNIT: Issued, Final TRANSFUSION STATUS: OK TO TRANSFUSE Performed By: #### TPLT #### [facility] [address] [place] [address] [place] [address] CSF PROT & GLUC Collected: 07/14/2018 Status: F Source: [facility] 7:14 [facility] REPOSITORY TYPE CODE TESTS RESULT OUT OF REFERENCE UNITS RANGE LAB CFG 40-70 mg/dL High CSF Glucose 135 LAB CFP 15-45 mg/dL CSF Protein 45 Performed By: #### CFPG, CSFLDB, GIPP #### [facility] [address] [place] [address] [place] [address] CSF FLUID BATTERY Collected: 07/14/2018 Status: F Source: [facility] 7:14 [facility] REPOSITORY TYPE CODE TESTS RESULT OUT OF REFERENCE UNITS RANGE LAB CSTUBE TUBE(S) CSF 4 TUBE NUMBER LAB SGROS Gross Appearance Colorless (CSF) Result Comment: Clear LAB SSUPN Supernatant (CSF) Not indicated LAB SFWBC <6 /uL WBC (CSF) 7 High LAB SFRBC <3 /uL RBC (CSF) 38 High LAB SNOCC Cells Counted 100 (CSF) LAB SFSEG 0-6 % Neutrophils (CSF) 0 LAB SFLYM 40-80 % Low Lymphocytes (CSF) 23 LAB SFMOMA 15-45 % 77 High Monocytes/Macrophag es, CSF LAB SEOSN % Eosinophils (CSF) 0 LAB SFBAS % Basophils (CSF) [address] Kody Jorge Reviewed by LAB SFCOM Comment (CSF) The white blood cells consist predominantly of mononuclear cells. Result Comment: Lymphoma cells are not seen. Blood is present. Correlation with flow cytometry is recommended. LAB SFPLAS % Plasma Cells, CSF 0 Performed By: #### CFPG, CSFLDB, GIPP #### [facility] [address] [place] [address] IMMUNOPHENOTYPING, Collected: Status: F Source: [facility] FLUID/TISSUE 07/14/2018 7:14 AM [facility] REPOSITORY TYPE CODE TESTS RESULT OUT OF REFERENCE UNITS RANGE LAB ICINT3 Immunophenotyping FL SEE NOTES Result Comment: (NOTE) IMMUNOPHENOTYPING DIAGNOSIS PATIENT NAME: KIM DILLON : 1955 ACCN#: [id number] REVIEWED BY: Neo Jorge M.D. [id number] SAMPLE TYPE: Cerebral Spinal Fluid LABORATORY INTERPRETATION: Suboptimal specimen with low cell viability (73%). Flow cytometric analysis shows no immunophenotypic evidence of an abnormal population of B-cells or T-cells. B-cells are essentially not detected. The CD4 to CD8 ratio is elevated with no significant loss of T cell antigens as can be seen in reactive T cells. Correlation with morphologic findings is recommended. PHENOTYPIC DESCRIPTION: Flow cytometric analysis of cerebral spinal fluid was performed using a ten color technique with a gating strategy based on CD45 staining and light side scatter characteristics. The concentrated specimen is suboptimal based on a viability of 73.0% as assessed by 7AAD dye exclusion. Lymphocytes represent 21.2 % of the total events analyzed. Of the lymphocytes: 0.0 % are B cells (CD19+) , 85.4 % are T cells (CD3+) with a CD4:CD8 ratio of 6.6 and 13.9 % are NK cells (positive for CD56 and/or CD16 and negative for CD3). MARKER DESCRIPTION LYM REG % CD19+ B CELL 0.0 CD19+/CD20+ B CELL 0.0 SIG SURFACE IG 0 K/L KAPPA/LAMBDA 0:0 CD2+ TCELL 92.0 CD3+ T CELL 85.4 CD4+/CD3- T CELL 2.1 CD4+/CD3+ T HELPER 55.2 CD8+/CD3- T CELL 29.4 CD8+/CD3+ T SUPPRESSOR 8.4 HSRA CD4/CD8 6.6 CD5+/CD19- T CELL 82.5 CD5+/CD19+ 0.0 CD23+ B CELL SUBSET 0.0 CD19+/CD10+ 0.0 CD10+ HILDA 0.0 CD7+/CD2- T CELL 5.8 CD7+/CD2+ T CELL 79.6 CD13+/HLA DR- MONO/GRAN 0.[address]+/CD13+ 0.7 HLADR+/CD13- 35.0 CD14+CD13- 2.2 CD13+/CD14+ 1.5 CD56/16+/CD3- NATURAL KILLER 13.9 MARKERS TESTED: 7AAD, CD10, CD13, CD14, CD19, CD2, CD20, CD23, CD3, CD4, CD45, CD5, CD56/16, CD7, CD8, HLA DR, KAPPA, LAMBDA MARKERS BILLED: 17 This test was developed and its performance characteristics determined The Flow Cytometry Laboratory at [facility]. It has not been cleared or approved by the FDA. This laboratory is certified under the Clinical Laboratory Improvement Amendments (CLIA) as qualified to perform high complexity clinical laboratory testing. This test is used for clinical purposes. It should not be regarded as investigational or for research. The [facility] Flow Cytometry Laboratory lower limit of CLL MRD detection is 0.1% of the gated lymphocytes. Performed By: #### CFPG, CSFLDB, GIPP #### [facility] [address] [place] [address] CYTOLOGY- NON-EGG GATHERER Observed: 07/14/2018 Status: F Source: [facility] 7:14 AM [facility] REPOSITORY Cytology Report Patient Name: KIM DILLON Med. Rec. #: [id number] Submitting Physician: KAREN BRIGGS ---Clinical History:--- - 63-year-old female with history of diffuse large B-cell lymphoma ---Source of Specimen(s):--- A: Cerebrospinal Fluid Cytologic Diagnosis CEREBROSPINAL FLUID (CYTOLOGY): - No Malignant Cells Are Identified. - Abundant Monocytes. [id number]:07/16/2018 ---Electronically Signed Out By Sergey Howe MD--- Garage Door Hanger: JL Mitchell(ASCP) ---Procedures/Addenda--- Performed By: #### NONGN #### [place] [address] PT/INR BATTERY Collected: 07/14/2018 Status: F Source: [facility] 6:42 AM [facility] REPOSITORY TYPE CODE TESTS RESULT OUT OF RANGE REFERENCE UNITS LAB PT 11.9-14.2 sec High PT 17.3 LAB INR 0.9-1.1 High INR 1.4 Performed By: #### PTI #### [facility] [place] [address] *POC GLUCOSE BATTERY Collected: 07/14/2018 Status: F Source: [facility] 6:31 AM [facility] REPOSITORY TYPE CODE TESTS RESULT OUT OF REFERENCE UNITS RANGE LAB GLUP 70-99 mg/dL High Glucose (poc 222 device) Result Comment: No BRAVE per RN: PATIENT TYPE LAB PCSTYP *POC Capillary SAMPLE TYPE Blood CBC,PLATELET,DIFFERENTIAL - CCL Collected: Status: F Source: [facility] 07/14/2018 4:19 AM [facility] REPOSITORY TYPE CODE TESTS RESULT OUT OF REFERENCE UNITS RANGE LAB WBC 3.99-11.19 K/uL WBC Count 8.61 LAB RBC 3.91-5.04 M/uL RBC Count 2.87 Low LAB HGB 11.4-15.2 g/dL Hemoglobin 8.1 Low LAB HCT 34.9-44.3 % Hematocrit 24.5 Low LAB MCV 79.6-97.7 fL Mean Cell 85.4 Volume LAB MCH 25.9-33.9 pg Mean Cell 28.2 Hgb LAB MCHC 31.4-35.9 g/dL Mean Cell 33.1 Hgb Conc LAB RDW 10.8-14.9 % RBC 17.2 High Distribution LAB PLT 150-393 K/uL Platelet 43 Low Count LAB MPV 8.5-12.2 fL Mean 10.5 Platelet Volume LAB NRBC 0.0-0.2 /100 WBC NUCLEATED 0.0 RBC LAB DTYPE Electronic DIFFERENTIAL TYPE Differential LAB IGRE % IMMATURE 2.6 GRANS % LAB SEGS % NEUTROPHIL 91.0 SEGMENTED LAB LYM % LYMPHOCYTE 1.0 % LAB MON % MONOCYTE % 5.3 LAB EOS % *EOSINOPHIL 0.0 % LAB BASO % BASOPHIL % 0.1 LAB IGABS 0.00-0.08 K/uL IMMATURE 0.22 High GRANS ABSOLUTE LAB SBANS 1.64-7.28 K/uL SEGS + 7.83 High Bands,Absolute LAB ALYM 1.16-3.51 K/uL Abs Lymph 0.09 Low LAB AMONO 0.22-0.87 K/uL Abs Laurel 0.46 LAB AEOS 0.00-0.42 K/uL Abs Eos <0.04 LAB ABASO 0.00-0.15 K/uL Abs Baso <0.04 Performed By: #### CBCDFC, CA, CHM7, HFP, IPB, LDO, MGO, URICB #### [facility] [address] [place] [id number] [place] [address] [address] [place], [place] [address] CALCIUM Collected: 07/14/2018 Status: F Source: [facility] 4:19 AM [facility] REPOSITORY TYPE CODE TESTS RESULT OUT OF REFERENCE UNITS RANGE LAB CA 8.6-10.5 mg/dL Low Calcium 7.9 Performed By: #### CBCDFC, CA, CHM7, HFP, IPB, LDO, MGO, URICB #### [facility] [address] [place] [id number] [facility] [address] [place] [address] [id number] CHEM 7 Collected: 07/14/2018 Status: F Source: [facility] 4:19 AM [facility] REPOSITORY TYPE CODE TESTS RESULT OUT OF REFERENCE UNITS RANGE LAB BUN 7-22 mg/dL BUN High 44 LAB NA 133-143 mmol/L Sodium 135 LAB K 3.5-5.0 mmol/L Potassium 4.3 LAB CL 98-108 mmol/L Chloride 106 LAB CO2 22-30 mmol/L Low Carbon Dioxide 21 LAB GLUC 70-99 mg/dL Glucose High 260 LAB CREA 0.50-1.20 mg/dL High Creatinine 1.55 LAB GAP 7-17 mmol/L Anion Gap 12 LAB BC BUN/CREA Ratio 28 LAB [facility] 278-305 mOsm/kg Osmolality 305 (Calc) LAB GFR >60 mL/min/1.73 Low sqM Est GFR,non 34 Estonian LAB GFRA >60 mL/min/1.73 Low sqM Est GFR, 41 Performed By: #### CBCDFC, CA, CHM7, HFP, IPB, LDO, MGO, URICB #### [facility] [address] [place] [address] 236[address] [facility] [address] [place] [address] [id number] HEPATIC FUNCTION Collected: 07/14/2018 Status: F Source: [facility] PANEL 4:19 AM [facility] REPOSITORY TYPE CODE TESTS RESULT OUT OF REFERENCE UNITS RANGE LAB ALB 3.5-5.0 g/dL Low Albumin 2.4 LAB BILD <0.3 mg/dL Bilirubin High Direct 0.4 LAB BILT <1.5 mg/dL Bilirubin Total 1.2 LAB ALP 32-126 U/L Alkaline Phosphatase 125 LAB ALT 9-48 U/L ALT 25 LAB AST 14-40 U/L AST 34 LAB TP 6.4-8.3 g/dL Low Total Protein 5.0 Performed By: #### CBCDFC, CA, CHM7, HFP, IPB, LDO, MGO, URICB #### [facility] [address] [place] [address] [facility] [address] [place] [address] 62909 INORGANIC PHOSPHATE Collected: 07/14/2018 Status: F Source: [facility] 4:19 AM [facility] REPOSITORY TYPE CODE TESTS RESULT OUT OF REFERENCE UNITS RANGE LAB IP 2.2-4.6 mg/dL Inorg Phosphate 3.5 Performed By: #### CBCDFC, CA, CHM7, HFP, IPB, LDO, MGO, URICB #### [facility] [address] [place] [address] [place] [address] LD TOTAL Collected: 07/14/2018 Status: F Source: [facility] 4:19 AM [facility] REPOSITORY TYPE CODE TESTS RESULT OUT OF RANGE REFERENCE UNITS LAB LD 100-190 U/L High LD Total 285 Performed By: #### CBCDFC, CA, CHM7, HFP, IPB, LDO, MGO, URICB #### [facility] [address] [place] [address] [place] [address] 48620 MAGNESIUM Collected: 07/14/2018 Status: F Source: [facility] 4:19 AM [facility] REPOSITORY TYPE CODE TESTS RESULT OUT OF REFERENCE UNITS RANGE LAB MG 1.6-2.6 mg/dL Magnesium 2.0 Performed By: #### CBCDFC, CA, CHM7, HFP, IPB, LDO, MGO, URICB #### [facility] [address] [place] [id number] [place] [address] [place] [address] 11495 URIC ACID Collected: 07/14/2018 Status: F Source: [facility] 4:19 AM [facility] REPOSITORY TYPE CODE TESTS RESULT OUT OF RANGE REFERENCE UNITS LAB URIC 2.8-6.0 mg/dL High Uric Acid 6.2 Performed By: #### CBCDFC, CA, CHM7, HFP, IPB, LDO, MGO, URICB #### [facility] [address] [place] [phone] [place] [address] [place] [address] 73051 AMMONIA Collected: 07/14/2018 Status: F Source: [facility] 4:19 AM [facility] REPOSITORY TYPE CODE TESTS RESULT OUT OF REFERENCE UNITS RANGE LAB NH3 6-47 umol/L Ammonia 44 Performed By: #### NH3B #### [facility] [address] [place] [address] [place] [address] 65409 *POC GLUCOSE BATTERY Collected: 07/14/2018 Status: F Source: [facility] 1:34 AM [facility] REPOSITORY TYPE CODE TESTS RESULT OUT OF REFERENCE UNITS RANGE LAB GLUP 70-99 mg/dL High Glucose (poc 307 device) Result Comment: Notified RNread back No BRAVE per RN: PATIENT TYPE LAB PCSTYP *POC Capillary SAMPLE TYPE Blood *POC GLUCOSE BATTERY Collected: 07/14/2018 Status: F Source: [facility] 12:24 AM [facility] REPOSITORY TYPE CODE TESTS RESULT OUT OF REFERENCE UNITS RANGE LAB GLUP 70-99 mg/dL High Glucose (poc 328 device) Result Comment: No BRAVE per RN: PATIENT TYPE LAB PCSTYP *POC Capillary SAMPLE TYPE Blood *POC GLUCOSE BATTERY Collected: 07/13/2018 Status: F Source: [facility] 9:50 PM [facility] REPOSITORY TYPE CODE TESTS RESULT OUT OF REFERENCE UNITS RANGE LAB GLUP 70-99 mg/dL High Glucose (poc 332 device) Result Comment: Notified RNread back No BRAVE per RN: PATIENT TYPE LAB PCSTYP *POC Capillary SAMPLE TYPE Blood CALCIUM Collected: 07/13/2018 Status: F Source: [facility] 6:35 PM [facility] REPOSITORY TYPE CODE TESTS RESULT OUT OF REFERENCE UNITS RANGE LAB CA 8.6-10.5 mg/dL Low Calcium 7.9 Performed By: #### CA, CHM7, IPB, LDO, URICB #### [facility] [address] [place] [id number] [place] [address] [place] [address] 95084 CHEM 7 Collected: 07/13/2018 Status: F Source: [facility] 6:35 PM [facility] REPOSITORY TYPE CODE TESTS RESULT OUT OF REFERENCE UNITS RANGE LAB BUN 7-22 mg/dL BUN High 42 LAB NA 133-143 mmol/L Low Sodium 132 LAB K 3.5-5.0 mmol/L Potassium 4.3 LAB CL 98-108 mmol/L Chloride 102 LAB CO2 22-30 mmol/L Low Carbon Dioxide 20 LAB GLUC 70-99 mg/dL Glucose High 297 LAB CREA 0.50-1.20 mg/dL High Creatinine 1.62 LAB GAP 7-17 mmol/L Anion Gap 14 LAB BC BUN/CREA Ratio 26 LAB [facility] 278-305 mOsm/kg Osmolality 301 (Calc) LAB GFR >60 mL/min/1.73 Low sqM Est GFR,non 32 Estonian LAB GFRA >60 mL/min/1.73 Low sqM Est GFR, 39 Performed By: #### CA, CHM7, IPB, LDO, URICB #### [facility] [address] [place] [address] [address] [place] [address] INORGANIC PHOSPHATE Collected: 07/13/2018 Status: F Source: [facility] 6:35 PM [facility] REPOSITORY TYPE CODE TESTS RESULT OUT OF REFERENCE UNITS RANGE LAB IP 2.2-4.6 mg/dL Inorg Phosphate 3.8 Performed By: #### CA, CHM7, IPB, LDO, URICB #### [facility] [address] [place] [address] [place] [address] 06954 LD TOTAL Collected: 07/13/2018 Status: F Source: [facility] 6:35 PM [facility] REPOSITORY TYPE CODE TESTS RESULT OUT OF RANGE REFERENCE UNITS LAB LD 100-190 U/L High LD Total 325 Performed By: #### CA, CHM7, IPB, LDO, URICB #### [facility] [address] [place] [address] [place] [address] 65450 URIC ACID Collected: 07/13/2018 Status: F Source: [facility] 6:35 PM [facility] REPOSITORY TYPE CODE TESTS RESULT OUT OF RANGE REFERENCE UNITS LAB URIC 2.8-6.0 mg/dL Uric Acid 6.0 Performed By: #### CA, CHM7, IPB, LDO, URICB #### [facility] [address] [place] [phone] [place] [address] [address] [place] [address] *POC GLUCOSE BATTERY Collected: 07/13/2018 Status: F Source: [facility] 4:39 PM [facility] REPOSITORY TYPE CODE TESTS RESULT OUT OF REFERENCE UNITS RANGE LAB GLUP 70-99 mg/dL High Glucose (poc 209 device) Result Comment: No BRAVE per RN: PATIENT TYPE LAB PCSTYP *POC Arterial SAMPLE TYPE PT*PTT Collected: 07/13/2018 Status: F Source: [facility] 1:51 PM [facility] REPOSITORY TYPE CODE TESTS RESULT OUT OF RANGE REFERENCE UNITS LAB PT 11.9-14.2 sec High PT 17.1 LAB INR 0.9-1.1 High INR 1.4 LAB PTT 24.0-34.3 sec PTT 28.2 Performed By: #### PTPTT #### U [facility] [address] [place] [address] [address] [place] [address] *POC GLUCOSE BATTERY Collected: 07/13/2018 Status: F Source: [facility] 11:32 AM [facility] REPOSITORY TYPE CODE TESTS RESULT OUT OF REFERENCE UNITS RANGE LAB GLUP 70-99 mg/dL High Glucose (poc 244 device) Result Comment: No BRAVE per RN: PATIENT TYPE LAB PCSTYP *POC Capillary SAMPLE TYPE Blood IMMUNOPHENOTYPING, Collected: Status: X Source: [facility] FLUID/TISSUE 07/13/2018 9:55 AM [facility] REPOSITORY TYPE CODE TESTS RESULT OUT OF RANGE REFERENCE UNITS LAB GIPP This result Immunophenot has been yping, cancelled. fluid/tissue Performed By: #### GIPP #### U [facility] (DEFAULT) [address] [place] [address] *POC GLUCOSE BATTERY Collected: 07/13/2018 Status: F Source: [facility] 9:29 AM [facility] REPOSITORY TYPE CODE TESTS RESULT OUT OF REFERENCE UNITS RANGE LAB GLUP 70-99 mg/dL High Glucose (poc 181 device) Result Comment: No BRAVE per RN: PATIENT TYPE LAB PCSTYP *POC Capillary SAMPLE TYPE Blood Observed: 07/13/2018 Status: F Source: [facility] TRANSFUSE FFP 7:35 AM [facility] REPOSITORY CROSSMATCH EXPIRATION: 07/14/2018 UNIT NUMBER: [id number] BLOOD COMPONENT TYPE: Thawed [id number] STATUS OF UNIT: REL FROM [facility] TRANSFUSION STATUS: OK TO TRANSFUSE UNIT NUMBER: [id number] BLOOD COMPONENT TYPE: Thawed [id number] STATUS OF UNIT: Issued, Final TRANSFUSION STATUS: OK TO TRANSFUSE Performed By: #### TFFP #### [facility] [address] [place] [address] *POC GLUCOSE BATTERY Collected: 07/13/2018 Status: F Source: [facility] 7:17 AM [facility] REPOSITORY TYPE CODE TESTS RESULT OUT OF REFERENCE UNITS RANGE LAB GLUP 70-99 mg/dL High Glucose (poc 177 device) Result Comment: No BRAVE per RN: PATIENT TYPE LAB PCSTYP *POC Capillary SAMPLE TYPE Blood *POC GLUCOSE BATTERY Collected: 07/13/2018 Status: F Source: [facility] 6:53 AM [facility] REPOSITORY TYPE CODE TESTS RESULT OUT OF REFERENCE UNITS RANGE LAB GLUP 70-99 mg/dL High Glucose (poc 174 device) Result Comment: Notified RNread back No BRAVE per RN: PATIENT TYPE LAB PCSTYP *POC Capillary SAMPLE TYPE Blood CBC,PLATELET,DIFFERENTIAL - CCL Collected: Status: F Source: [facility] 07/13/2018 3:32 AM [facility] REPOSITORY TYPE CODE TESTS RESULT OUT OF REFERENCE UNITS RANGE LAB WBC 3.99-11.19 K/uL WBC Count 5.72 LAB RBC 3.91-5.04 M/uL RBC Count 2.86 Low LAB HGB 11.4-15.2 g/dL Hemoglobin 8.0 Low LAB HCT 34.9-44.3 % Hematocrit 24.9 Low LAB MCV 79.6-97.7 fL Mean Cell 87.1 Volume LAB MCH 25.9-33.9 pg Mean Cell 28.0 Hgb LAB MCHC 31.4-35.9 g/dL Mean Cell 32.1 Hgb Conc LAB RDW 10.8-14.9 % RBC 17.4 High Distribution LAB PLT 150-393 K/uL Platelet 56 Low Count LAB MPV 8.5-12.2 fL Mean 10.5 Platelet Volume LAB NRBC 0.0-0.2 /100 WBC NUCLEATED 0.0 RBC LAB DTYPE Electronic DIFFERENTIAL TYPE Differential LAB IGRE % IMMATURE 0.5 GRANS % LAB SEGS % NEUTROPHIL 92.0 SEGMENTED LAB LYM % LYMPHOCYTE 3.0 % LAB MON % MONOCYTE % 4.5 LAB EOS % *EOSINOPHIL 0.0 % LAB BASO % BASOPHIL % 0.0 LAB IGABS 0.00-0.08 K/uL IMMATURE <0.04 GRANS ABSOLUTE LAB SBANS 1.64-7.28 K/uL SEGS + 5.26 Bands,Absolute LAB ALYM 1.16-3.51 K/uL Abs Lymph 0.17 Low LAB AMONO 0.22-0.87 K/uL Abs Laurel 0.26 LAB AEOS 0.00-0.42 K/uL Abs Eos <0.04 LAB ABASO 0.00-0.15 K/uL Abs Baso <0.04 Performed By: #### CBCDFC, CA, CHM7, HFP, IPB, LDO, MGO, URICB, PTPTT #### [facility] [address] [place] [address] [address] [place] [address] CALCIUM Collected: 07/13/2018 Status: F Source: [facility] 3:32 [facility] REPOSITORY TYPE CODE TESTS RESULT OUT OF REFERENCE UNITS RANGE LAB CA 8.6-10.5 mg/dL Low Calcium 7.8 Performed By: #### CBCDFC, CA, CHM7, HFP, IPB, LDO, MGO, URICB, PTPTT #### [facility] [address] [place] [address] [place] [address] [id number] CHEM 7 Collected: 07/13/2018 Status: F Source: [facility] 3:32 [facility] REPOSITORY TYPE CODE TESTS RESULT OUT OF REFERENCE UNITS RANGE LAB BUN 7-22 mg/dL BUN High 34 LAB NA 133-143 mmol/L Sodium 133 LAB K 3.5-5.0 mmol/L Potassium 4.4 LAB CL 98-108 mmol/L Chloride 104 LAB CO2 22-30 mmol/L Carbon Dioxide 24 LAB GLUC 70-99 mg/dL Glucose High 202 LAB CREA 0.50-1.20 mg/dL High Creatinine 1.73 LAB GAP 7-17 mmol/L Anion Gap 9 LAB BC BUN/CREA Ratio 20 LAB [facility] 278-305 mOsm/kg Osmolality 295 (Calc) LAB GFR >60 mL/min/1.73 Low sqM Est GFR,non 30 Estonian LAB GFRA >60 mL/min/1.73 Low sqM Est GFR, 36 Performed By: #### CBCDFC, CA, CHM7, HFP, IPB, LDO, MGO, URICB, PTPTT #### [facility] [address] [address] HEPATIC FUNCTION Collected: 07/13/2018 Status: F Source: [facility] 3:32 AM [facility] REPOSITORY TYPE CODE TESTS RESULT OUT OF REFERENCE UNITS RANGE LAB ALB 3.5-5.0 g/dL Low Albumin 2.4 LAB BILD <0.3 mg/dL Bilirubin High Direct 0.4 LAB BILT <1.5 mg/dL Bilirubin Total 1.1 LAB ALP 32-126 U/L Alkaline High Phosphatase 129 LAB ALT 9-48 U/L ALT 21 LAB AST 14-40 U/L AST 37 LAB TP 6.4-8.3 g/dL Low Total Protein 5.4 Performed By: #### CBCDFC, CA, CHM7, HFP, IPB, LDO, MGO, URICB, PTPTT #### [facility] [id number] [place] [address] 73250 INORGANIC PHOSPHATE Collected: 07/13/2018 Status: F Source: [facility] 3:32 AM [facility] REPOSITORY TYPE CODE TESTS RESULT OUT OF REFERENCE UNITS RANGE LAB IP 2.2-4.6 mg/dL Inorg Phosphate 4.1 Performed By: #### CBCDFC, CA, CHM7, HFP, IPB, LDO, MGO, URICB, PTPTT #### [facility] [address] [place] [address] [facility] [address] [place] [address] 42647 LD TOTAL Collected: 07/13/2018 Status: F Source: [facility] 3:32 AM [facility] REPOSITORY TYPE CODE TESTS RESULT OUT OF RANGE REFERENCE UNITS LAB LD 100-190 U/L High LD Total 305 Performed By: #### CBCDFC, CA, CHM7, HFP, IPB, LDO, MGO, URICB, PTPTT #### [facility] [address] [place] [id number] [place] [address] [place] [address] 48473 MAGNESIUM Collected: 07/13/2018 Status: F Source: [facility] 3:32 [facility] REPOSITORY TYPE CODE TESTS RESULT OUT OF REFERENCE UNITS RANGE LAB MG 1.6-2.6 mg/dL Magnesium 1.8 Performed By: #### CBCDFC, CA, CHM7, HFP, IPB, LDO, MGO, URICB, PTPTT #### [facility] [address] [place] [id number] [place] [address] [place] [address] 00698 URIC ACID Collected: 07/13/2018 Status: F Source: [facility] 3:32 [facility] REPOSITORY TYPE CODE TESTS RESULT OUT OF RANGE REFERENCE UNITS LAB URIC 2.8-6.0 mg/dL High Uric Acid 6.3 Performed By: #### CBCDFC, CA, CHM7, HFP, IPB, LDO, MGO, URICB, PTPTT #### [facility] [address] [place] [phone] [place] [address] [address] [place] [address] 81421 PT*PTT Collected: 07/13/2018 Status: F Source: [facility] 3:32 AM [facility] REPOSITORY TYPE CODE TESTS RESULT OUT OF RANGE REFERENCE UNITS LAB PT 11.9-14.2 sec High PT 17.7 LAB INR 0.9-1.1 High INR 1.5 LAB PTT 24.0-34.3 sec PTT 30.5 Performed By: #### CBCDFC, CA, CHM7, HFP, IPB, LDO, MGO, URICB, PTPTT #### [facility] [address] [place] [phone] [place] [address] [address] [place] [address] AMMONIA Collected: 07/13/2018 Status: F Source: [facility] 3:32 AM [facility] REPOSITORY TYPE CODE TESTS RESULT OUT OF REFERENCE UNITS RANGE LAB NH3 6-47 umol/L High Ammonia 61 Performed By: #### NH3B #### [facility] [address] [place] [address] [address] [place] [address] *POC GLUCOSE BATTERY Collected: 07/12/2018 Status: F Source: [facility] 9:05 PM [facility] REPOSITORY TYPE CODE TESTS RESULT OUT OF REFERENCE UNITS RANGE LAB GLUP 70-99 mg/dL High Glucose (poc 253 device) Result Comment: Notified RNread back No BRAVE per RN: PATIENT TYPE LAB PCSTYP *POC Capillary SAMPLE TYPE Blood CALCIUM Collected: 07/12/2018 Status: F Source: [facility] 5:27 PM [facility] REPOSITORY TYPE CODE TESTS RESULT OUT OF REFERENCE UNITS RANGE LAB CA 8.6-10.5 mg/dL Low Calcium 7.6 Performed By: #### CA, CHM7, IPB, LDO, URICB #### [facility] [address] [place] [address] [place] [address] 11116 CHEM 7 Collected: 07/12/2018 Status: F Source: [facility] 5:27 PM [facility] REPOSITORY TYPE CODE TESTS RESULT OUT OF REFERENCE UNITS RANGE LAB BUN 7-22 mg/dL BUN High 29 LAB NA 133-143 mmol/L Low Sodium 132 LAB K 3.5-5.0 mmol/L Potassium 4.5 LAB CL 98-108 mmol/L Chloride 105 LAB CO2 22-30 mmol/L Low Carbon Dioxide 20 LAB GLUC 70-99 mg/dL Glucose High 349 LAB CREA 0.50-1.20 mg/dL High Creatinine 1.49 LAB GAP 7-17 mmol/L Anion Gap 12 LAB BC BUN/CREA Ratio 19 LAB [facility] 278-305 mOsm/kg Osmolality 301 (Calc) LAB GFR >60 mL/min/1.73 Low sqM Est GFR,non 35 Estonian LAB GFRA >60 mL/min/1.73 Low sqM Est GFR, 43 Performed By: #### CA, CHM7, IPB, LDO, URICB #### [facility] [address] [place] [id number] [place] [address] [place] [address] [id number] INORGANIC PHOSPHATE Collected: 07/12/2018 Status: F Source: [facility] 5:27 PM [facility] REPOSITORY TYPE CODE TESTS RESULT OUT OF REFERENCE UNITS RANGE LAB IP 2.2-4.6 mg/dL Inorg Phosphate 3.5 Performed By: #### CA, CHM7, IPB, LDO, URICB #### [facility] [address] [place] [address] [address] [place] [address] LD TOTAL Collected: 07/12/2018 Status: F Source: [facility] 5:27 PM [facility] REPOSITORY TYPE CODE TESTS RESULT OUT OF RANGE REFERENCE UNITS LAB LD 100-190 U/L High LD Total 310 Performed By: #### CA, CHM7, IPB, LDO, URICB #### [facility] [address] [place] [address] [place] [address] 66469 URIC ACID Collected: 07/12/2018 Status: F Source: [facility] 5:27 PM [facility] REPOSITORY TYPE CODE TESTS RESULT OUT OF RANGE REFERENCE UNITS LAB URIC 2.8-6.0 mg/dL Uric Acid 5.7 Performed By: #### CA, CHM7, IPB, LDO, URICB #### [facility] [address] [place] [id number] [place] [address] [address] [place] [address] *POC GLUCOSE BATTERY Collected: 07/12/2018 Status: F Source: [facility] 4:59 PM [facility] REPOSITORY TYPE CODE TESTS RESULT OUT OF REFERENCE UNITS RANGE LAB GLUP 70-99 mg/dL High Glucose (poc 331 device) Result Comment: No BRAVE per RN: PATIENT TYPE LAB PCSTYP *POC Capillary SAMPLE TYPE Blood Observed: 07/12/2018 Status: F Source: [facility] TYPE AND CROSS 1:40 PM [facility] REPOSITORY ABO/RH(D): O POSITIVE ANTIBODY SCREEN: NEGATIVE UNIT NUMBER: [id number] BLOOD COMPONENT TYPE: Red Cell,Leukoreduced,[id number] STATUS OF UNIT: Issued, Final TRANSFUSION STATUS: OK TO TRANSFUSE CROSSMATCH RESULT: Electronically Compatible UNIT NUMBER: [id number] BLOOD COMPONENT TYPE: Red Cell,Leukoreduced,[id number] STATUS OF UNIT: Issued, Final TRANSFUSION STATUS: OK TO TRANSFUSE CROSSMATCH RESULT: Electronically Compatible Performed By: #### XM #### [place] [address] [place] [address] *POC GLUCOSE BATTERY Collected: 07/12/2018 Status: F Source: [facility] 11:42 AM [facility] REPOSITORY TYPE CODE TESTS RESULT OUT OF REFERENCE UNITS RANGE LAB GLUP 70-99 mg/dL High Glucose (poc 316 device) Result Comment: No BRAVE per RN: PATIENT TYPE LAB PCSTYP *POC Capillary SAMPLE TYPE Blood *POC GLUCOSE BATTERY Collected: 07/12/2018 Status: F Source: [facility] 7:24 AM [facility] REPOSITORY TYPE CODE TESTS RESULT OUT OF REFERENCE UNITS RANGE LAB GLUP 70-99 mg/dL High Glucose (poc 285 device) Result Comment: No BRAVE per RN: PATIENT TYPE LAB PCSTYP *POC Capillary SAMPLE TYPE Blood AMMONIA Collected: 07/12/2018 Status: F Source: [facility] 5:17 AM [facility] REPOSITORY TYPE CODE TESTS RESULT OUT OF REFERENCE UNITS RANGE LAB NH3 6-47 umol/L High Ammonia 54 Performed By: #### NH3B #### U [place] [address] CALCIUM Collected: 07/12/2018 Status: F Source: [facility] 5:17 AM [facility] REPOSITORY TYPE CODE TESTS RESULT OUT OF REFERENCE UNITS RANGE LAB CA 8.6-10.5 mg/dL Low Calcium 7.4 Performed By: #### CA, CHM7, HFP, IPB, LDO, MGO, URICB, CBCDFC #### [facility] [id number] [place] [address] [address] CHEM 7 Collected: 07/12/2018 Status: F Source: [facility] 5:17 AM [facility] REPOSITORY TYPE CODE TESTS RESULT OUT OF REFERENCE UNITS RANGE LAB BUN 7-22 mg/dL BUN High 23 LAB NA 133-143 mmol/L Sodium 135 LAB K 3.5-5.0 mmol/L Potassium 4.4 LAB CL 98-108 mmol/L Chloride 107 LAB CO2 22-30 mmol/L Carbon Dioxide 22 LAB GLUC 70-99 mg/dL Glucose High 307 LAB CREA 0.50-1.20 mg/dL High Creatinine 1.21 LAB GAP 7-17 mmol/L Anion Gap 10 LAB BC BUN/CREA Ratio 19 LAB [facility] 278-305 mOsm/kg Osmolality 301 (Calc) LAB GFR >60 mL/min/1.73 Low sqM Est GFR,non 45 Estonian LAB GFRA >60 mL/min/1.73 Low sqM Est GFR, 54 Performed By: #### CA, CHM7, HFP, IPB, LDO, MGO, URICB, CBCDFC #### [facility] [address] [place] [address] HEPATIC FUNCTION Collected: 07/12/2018 Status: F Source: [facility] PANEL 5:17 AM [facility] REPOSITORY TYPE CODE TESTS RESULT OUT OF REFERENCE UNITS RANGE LAB ALB 3.5-5.0 g/dL Low Albumin 2.5 LAB BILD <0.3 mg/dL Bilirubin High Direct 0.4 LAB BILT <1.5 mg/dL Bilirubin Total 1.0 LAB ALP 32-126 U/L Alkaline Phosphatase 120 LAB ALT 9-48 U/L ALT 22 LAB AST 14-40 U/L AST High 41 LAB TP 6.4-8.3 g/dL Low Total Protein 5.2 Performed By: #### CA, CHM7, HFP, IPB, LDO, MGO, URICB, CBCDFC #### [facility] [address] [facility] [address] [place] [address] INORGANIC PHOSPHATE Collected: 07/12/2018 Status: F Source: [facility] 5:17 AM [facility] REPOSITORY TYPE CODE TESTS RESULT OUT OF REFERENCE UNITS RANGE LAB IP 2.2-4.6 mg/dL Inorg Phosphate 2.8 Performed By: #### CA, CHM7, HFP, IPB, LDO, MGO, URICB, CBCDFC #### [facility] [address] [place] [address] [place] [id number] LD TOTAL Collected: 07/12/2018 Status: F Source: [facility] 5:17 AM [facility] REPOSITORY TYPE CODE TESTS RESULT OUT OF RANGE REFERENCE UNITS LAB LD 100-190 U/L High LD Total 288 Performed By: #### CA, CHM7, HFP, IPB, LDO, MGO, URICB, CBCDFC #### [facility] [address] [place] [address] [id number] MAGNESIUM Collected: 07/12/2018 Status: F Source: [facility] 5:17 [facility] REPOSITORY TYPE CODE TESTS RESULT OUT OF REFERENCE UNITS RANGE LAB MG 1.6-2.6 mg/dL Magnesium 1.7 Performed By: #### CA, CHM7, HFP, IPB, LDO, MGO, URICB, CBCDFC #### [facility] [address] [place] [address] [place] [id number] URIC ACID Collected: 07/12/2018 Status: F Source: [facility] 5:17 [facility] REPOSITORY TYPE CODE TESTS RESULT OUT OF RANGE REFERENCE UNITS LAB URIC 2.8-6.0 mg/dL Uric Acid 5.9 Performed By: #### CA, CHM7, HFP, IPB, LDO, MGO, URICB, CBCDFC #### [facility] [address] [place] [id number] [place] [address] [address] CBC,PLATELET,DIFFERENTIAL - CCL Collected: Status: F Source: [facility] 07/12/2018 5:17 AM [facility] REPOSITORY TYPE CODE TESTS RESULT OUT OF REFERENCE UNITS RANGE LAB WBC 3.99-11.19 K/uL WBC Count 3.53 Low LAB RBC 3.91-5.04 M/uL RBC Count 2.72 Low LAB HGB 11.4-15.2 g/dL Hemoglobin 7.3 Low LAB HCT 34.9-44.3 % Hematocrit 22.9 Low LAB MCV 79.6-97.7 fL Mean Cell 84.2 Volume LAB MCH 25.9-33.9 pg Mean Cell Hgb 26.8 LAB MCHC 31.4-35.9 g/dL Mean Cell Hgb 31.9 Conc LAB RDW 10.8-14.9 % RBC 18.0 High Distribution LAB PLT 150-393 K/uL Platelet Count 46 Low LAB MPV 8.5-12.2 fL Mean Platelet 9.9 Volume LAB NRBC 0.0-0.2 /100 WBC NUCLEATED RBC 0.0 LAB DTYPE DIFFERENTIAL Manual TYPE Differential LAB SEGS % NEUTROPHIL 99.1 SEGMENTED LAB LYM % LYMPHOCYTE % 0.9 LAB MON % MONOCYTE % 0.0 LAB EOS % *EOSINOPHIL % 0.0 LAB BASO % BASOPHIL % 0.0 LAB BAND % BAND 0.0 NEUTROPHIL % LAB SBANS 1.64-7.28 K/uL SEGS + 3.50 Bands,Absolute LAB ALYM 1.16-3.51 K/uL Abs Lymph 0.03 Low LAB AMONO 0.22-0.87 K/uL Abs Laurel 0.00 Low LAB AEOS 0.00-0.42 K/uL Abs Eos 0.00 LAB ABASO 0.00-0.15 K/uL Abs Baso 0.00 LAB POLYCH POLYCHROMASIA 1+ LAB TEARDR TEARDROP CELLS Present LAB PLTEST PLATELET ESTIMATE Automated platelet count confirmed by manual slide review. Performed By: #### CA, CHM7, HFP, IPB, LDO, MGO, URICB, CBCDFC #### [facility] [address] [place] [address] *POC GLUCOSE BATTERY Collected: 07/11/2018 Status: F Source: [facility] 9:12 PM [facility] REPOSITORY TYPE CODE TESTS RESULT OUT OF REFERENCE UNITS RANGE LAB GLUP 70-99 mg/dL High Glucose (poc 269 device) Result Comment: Notified RNread back No BRAVE per RN: PATIENT TYPE LAB PCSTYP *POC Capillary SAMPLE TYPE Blood *POC GLUCOSE BATTERY Collected: 07/11/2018 Status: F Source: [facility] 5:28 PM [facility] REPOSITORY TYPE CODE TESTS RESULT OUT OF REFERENCE UNITS RANGE LAB GLUP 70-99 mg/dL High Glucose (poc 144 device) Result Comment: No BRAVE per RN: PATIENT TYPE LAB PCSTYP *POC Capillary SAMPLE TYPE Blood CALCIUM Collected: 07/11/2018 Status: F Source: [facility] 4:40 PM [facility] REPOSITORY TYPE CODE TESTS RESULT OUT OF REFERENCE UNITS RANGE LAB CA 8.6-10.5 mg/dL Low Calcium 7.5 Performed By: #### CA, CHM7, IPB, LDO, URICB #### [facility] [address] [place] [address] CHEM 7 Collected: 07/11/2018 Status: F Source: [facility] 4:40 PM [facility] REPOSITORY TYPE CODE TESTS RESULT OUT OF REFERENCE UNITS RANGE LAB BUN 7-22 mg/dL BUN 21 LAB NA 133-143 mmol/L Sodium 136 LAB K 3.5-5.0 mmol/L Potassium 4.6 LAB CL 98-108 mmol/L Chloride 108 LAB CO2 22-30 mmol/L Carbon Dioxide 22 LAB GLUC 70-99 mg/dL Glucose High 253 LAB CREA 0.50-1.20 mg/dL High Creatinine 1.36 LAB GAP 7-17 mmol/L Anion Gap 11 LAB BC BUN/CREA Ratio 15 LAB [facility] 278-305 mOsm/kg Osmolality 299 (Calc) LAB GFR >60 mL/min/1.73 Low sqM Est GFR,non 39 Estonian LAB GFRA >60 mL/min/1.73 Low sqM Est GFR, 47 Performed By: #### CA, CHM7, IPB, LDO, URICB #### [facility] [id number] [place] [address] [place] [address] INORGANIC PHOSPHATE Collected: 07/11/2018 Status: F Source: [facility] 4:40 PM [facility] REPOSITORY TYPE CODE TESTS RESULT OUT OF REFERENCE UNITS RANGE LAB IP 2.2-4.6 mg/dL Inorg Phosphate 2.3 Performed By: #### CA, CHM7, IPB, LDO, URICB #### [facility] [address] [place] [address] [place] [address] LD TOTAL Collected: 07/11/2018 Status: F Source: [facility] 4:40 PM [facility] REPOSITORY TYPE CODE TESTS RESULT OUT OF RANGE REFERENCE UNITS LAB LD 100-190 U/L High LD Total 295 Performed By: #### CA, CHM7, IPB, LDO, URICB #### [facility] [address] [place] [address] [place] [address] URIC ACID Collected: 07/11/2018 Status: F Source: [facility] 4:40 PM [facility] REPOSITORY TYPE CODE TESTS RESULT OUT OF RANGE REFERENCE UNITS LAB URIC 2.8-6.0 mg/dL High Uric Acid 6.3 Performed By: #### CA, CHM7, IPB, LDO, URICB #### [facility] [address] [place] [address] [place] [address] *POC GLUCOSE BATTERY Collected: 07/11/2018 Status: F Source: [facility] 12:01 PM [facility] REPOSITORY TYPE CODE TESTS RESULT OUT OF REFERENCE UNITS RANGE LAB GLUP 70-99 mg/dL High Glucose (poc 206 device) Result Comment: No BRAVE per RN: PATIENT TYPE LAB PCSTYP *POC Capillary SAMPLE TYPE Blood *POC GLUCOSE BATTERY Collected: 07/11/2018 Status: F Source: [facility] 7:32 AM [facility] REPOSITORY TYPE CODE TESTS RESULT OUT OF REFERENCE UNITS RANGE LAB GLUP 70-99 mg/dL High Glucose (poc 107 device) Result Comment: No BRAVE per RN: PATIENT TYPE LAB PCSTYP *POC Capillary SAMPLE TYPE Blood CBC,PLATELET,DIFFERENTIAL - CCL Collected: Status: F Source: [facility] 07/11/2018 4:22 AM [facility] REPOSITORY TYPE CODE TESTS RESULT OUT OF REFERENCE UNITS RANGE LAB WBC 3.99-11.19 K/uL WBC Count 5.42 LAB RBC 3.91-5.04 M/uL RBC Count 2.72 Low LAB HGB 11.4-15.2 g/dL Hemoglobin 7.4 Low LAB HCT 34.9-44.3 % Hematocrit 23.3 Low LAB MCV 79.6-97.7 fL Mean Cell 85.7 Volume LAB MCH 25.9-33.9 pg Mean Cell 27.2 Hgb LAB MCHC 31.4-35.9 g/dL Mean Cell 31.8 Hgb Conc LAB RDW 10.8-14.9 % RBC 18.2 High Distribution LAB PLT 150-393 K/uL Platelet 61 Low Count LAB MPV 8.5-12.2 fL Mean 9.5 Platelet Volume LAB NRBC 0.0-0.2 /100 WBC NUCLEATED 0.0 RBC LAB DTYPE Electronic DIFFERENTIAL TYPE Differential LAB IGRE % IMMATURE 0.2 GRANS % LAB SEGS % NEUTROPHIL 69.3 SEGMENTED LAB LYM % LYMPHOCYTE 18.3 % LAB MON % MONOCYTE % 7.4 LAB EOS % *EOSINOPHIL 4.2 % LAB BASO % BASOPHIL % 0.6 LAB IGABS 0.00-0.08 K/uL IMMATURE <0.04 GRANS ABSOLUTE LAB SBANS 1.64-7.28 K/uL SEGS + 3.76 Bands,Absolute LAB ALYM 1.16-3.51 K/uL Abs Lymph 0.99 Low LAB AMONO 0.22-0.87 K/uL Abs Laurel 0.40 LAB AEOS 0.00-0.42 K/uL Abs Eos 0.23 LAB ABASO 0.00-0.15 K/uL Abs Baso <0.04 Performed By: #### CBCDFC, CA, CHM7, HFP, IPB, LDO, MGO, URICB #### [facility] [address] [place] [address] [place] [address] CALCIUM Collected: 07/11/2018 Status: F Source: [facility] 4:22 AM [facility] REPOSITORY TYPE CODE TESTS RESULT OUT OF REFERENCE UNITS RANGE LAB CA 8.6-10.5 mg/dL Low Calcium 7.9 Performed By: #### CBCDFC, CA, CHM7, HFP, IPB, LDO, MGO, URICB #### [facility] [address] [place] [id number] [place] [address] [place] [address] CHEM 7 Collected: 07/11/2018 Status: F Source: [facility] 4:22 AM [facility] REPOSITORY TYPE CODE TESTS RESULT OUT OF REFERENCE UNITS RANGE LAB BUN 7-22 mg/dL BUN 22 LAB NA 133-143 mmol/L Sodium 140 LAB K 3.5-5.0 mmol/L Potassium 4.6 LAB CL 98-108 mmol/L Chloride High 110 LAB CO2 22-30 mmol/L Carbon Dioxide 22 LAB GLUC 70-99 mg/dL Glucose High 115 LAB CREA 0.50-1.20 mg/dL High Creatinine 1.58 LAB GAP 7-17 mmol/L Anion Gap 13 LAB BC BUN/CREA Ratio 14 LAB [facility] 278-305 mOsm/kg Osmolality 298 (Calc) LAB GFR >60 mL/min/1.73 Low sqM Est GFR,non 33 Estonian LAB GFRA >60 mL/min/1.73 Low sqM Est GFR, 40 Performed By: #### CBCDFC, CA, CHM7, HFP, IPB, LDO, MGO, URICB #### [facility] [address] [place] [address] [place] [address] HEPATIC FUNCTION Collected: 07/11/2018 Status: F Source: [facility] PANEL 4:22 AM [facility] REPOSITORY TYPE CODE TESTS RESULT OUT OF REFERENCE UNITS RANGE LAB ALB 3.5-5.0 g/dL Low Albumin 2.5 LAB BILD <0.3 mg/dL Bilirubin High Direct 0.3 LAB BILT <1.5 mg/dL Bilirubin Total 1.0 LAB ALP 32-126 U/L Alkaline Phosphatase 121 LAB ALT 9-48 U/L ALT 18 LAB AST 14-40 U/L AST High 56 LAB TP 6.4-8.3 g/dL Low Total Protein 5.1 Performed By: #### CBCDFC, CA, CHM7, HFP, IPB, LDO, MGO, URICB #### [facility] [address] [place] [id number] [place] [address] [place] [address] INORGANIC PHOSPHATE Collected: 07/11/2018 Status: F Source: [facility] 4:22 AM [facility] REPOSITORY TYPE CODE TESTS RESULT OUT OF REFERENCE UNITS RANGE LAB IP 2.2-4.6 mg/dL Inorg Phosphate 2.4 Performed By: #### CBCDFC, CA, CHM7, HFP, IPB, LDO, MGO, URICB #### [facility] [address] [place] [address] [address] [place] [address] LD TOTAL Collected: 07/11/2018 Status: F Source: [facility] 4:22 [facility] REPOSITORY TYPE CODE TESTS RESULT OUT OF RANGE REFERENCE UNITS LAB LD 100-190 U/L High LD Total 302 Performed By: #### CBCDFC, CA, CHM7, HFP, IPB, LDO, MGO, URICB #### [facility] [address] [place] [address] [place] [address] MAGNESIUM Collected: 07/11/2018 Status: F Source: [facility] 4:22 [facility] REPOSITORY TYPE CODE TESTS RESULT OUT OF REFERENCE UNITS RANGE LAB MG 1.6-2.6 mg/dL Magnesium 1.8 Performed By: #### CBCDFC, CA, CHM7, HFP, IPB, LDO, MGO, URICB #### [facility] [address] [place] [id number] [place] [address] [place] [id number] URIC ACID Collected: 07/11/2018 Status: F Source: [facility] 4:22 [facility] REPOSITORY TYPE CODE TESTS RESULT OUT OF RANGE REFERENCE UNITS LAB URIC 2.8-6.0 mg/dL High Uric Acid 7.0 Performed By: #### CBCDFC, CA, CHM7, HFP, IPB, LDO, MGO, URICB #### [facility] [address] [place] [address] [place] [address] [facility] [address] [place], [place] [address] AMMONIA Collected: 07/11/2018 Status: F Source: [facility] 4:22 AM [facility] REPOSITORY TYPE CODE TESTS RESULT OUT OF REFERENCE UNITS RANGE LAB NH3 6-47 umol/L Ammonia 42 Performed By: #### NH3B #### [facility] [address] [place] [address] [facility] [address] [place], [place] [address] *POC GLUCOSE BATTERY Collected: 07/10/2018 Status: F Source: [facility] 9:22 PM [facility] REPOSITORY TYPE CODE TESTS RESULT OUT OF REFERENCE UNITS RANGE LAB GLUP 70-99 mg/dL High Glucose (poc 144 device) Result Comment: No BRAVE per RN: PATIENT TYPE LAB PCSTYP *POC Capillary SAMPLE TYPE Blood *POC GLUCOSE BATTERY Collected: 07/10/2018 Status: F Source: [facility] 8:04 PM [facility] REPOSITORY TYPE CODE TESTS RESULT OUT OF REFERENCE UNITS RANGE LAB GLUP 70-99 mg/dL High Glucose (poc 182 device) Result Comment: No BRAVE per RN: PATIENT TYPE LAB PCSTYP *POC Capillary SAMPLE TYPE Blood *POC GLUCOSE BATTERY Collected: 07/10/2018 Status: F Source: [facility] 5:34 PM [facility] REPOSITORY TYPE CODE TESTS RESULT OUT OF REFERENCE UNITS RANGE LAB GLUP 70-99 mg/dL High Glucose (poc 170 device) Result Comment: No BRAVE per RN: PATIENT TYPE LAB PCSTYP *POC Capillary SAMPLE TYPE Blood *POC GLUCOSE BATTERY Collected: 07/10/2018 Status: F Source: [facility] 11:22 AM [facility] REPOSITORY TYPE CODE TESTS RESULT OUT OF REFERENCE UNITS RANGE LAB GLUP 70-99 mg/dL High Glucose (poc 159 device) Result Comment: No BRAVE per RN: PATIENT TYPE LAB PCSTYP *POC Capillary SAMPLE TYPE Blood *POC GLUCOSE BATTERY Collected: 07/10/2018 Status: F Source: [facility] 10:00 AM [facility] REPOSITORY TYPE CODE TESTS RESULT OUT OF REFERENCE UNITS RANGE LAB GLUP 70-99 mg/dL High Glucose (poc 170 device) Result Comment: No BRAVE per RN: PATIENT TYPE LAB PCSTYP *POC Capillary SAMPLE TYPE Blood *POC GLUCOSE BATTERY Collected: 07/10/2018 Status: F Source: [facility] 7:39 AM [facility] REPOSITORY TYPE CODE TESTS RESULT OUT OF REFERENCE UNITS RANGE LAB GLUP 70-99 mg/dL High Glucose (poc 115 device) Result Comment: No BRAVE per RN: PATIENT TYPE LAB PCSTYP *POC Capillary SAMPLE TYPE Blood *POC GLUCOSE BATTERY Collected: 07/10/2018 Status: F Source: [facility] 7:19 AM [facility] REPOSITORY TYPE CODE TESTS RESULT OUT OF REFERENCE UNITS RANGE LAB GLUP 70-99 mg/dL High Glucose (poc 104 device) Result Comment: No BRAVE per RN: PATIENT TYPE LAB PCSTYP *POC Capillary SAMPLE TYPE Blood CBC,PLATELET,DIFFERENTIAL - CCL Collected: Status: F Source: [facility] 07/10/2018 12:05 [facility] REPOSITORY TYPE CODE TESTS RESULT OUT OF REFERENCE UNITS RANGE LAB WBC 3.99-11.19 K/uL WBC Count 4.42 LAB RBC 3.91-5.04 M/uL RBC Count 2.67 Low LAB HGB 11.4-15.2 g/dL Hemoglobin 7.4 Low LAB HCT 34.9-44.3 % Hematocrit 23.1 Low LAB MCV 79.6-97.7 fL Mean Cell 86.5 Volume LAB MCH 25.9-33.9 pg Mean Cell 27.7 Hgb LAB MCHC 31.4-35.9 g/dL Mean Cell 32.0 Hgb Conc LAB RDW 10.8-14.9 % RBC 18.4 High Distribution LAB PLT 150-393 K/uL Platelet 52 Low Count LAB MPV 8.5-12.2 fL Mean 9.3 Platelet Volume LAB NRBC 0.0-0.2 /100 WBC NUCLEATED 0.0 RBC LAB DTYPE Electronic DIFFERENTIAL TYPE Differential LAB IGRE % IMMATURE 0.2 GRANS % LAB SEGS % NEUTROPHIL 65.8 SEGMENTED LAB LYM % LYMPHOCYTE 19.0 % LAB MON % MONOCYTE % 9.3 LAB EOS % *EOSINOPHIL 5.2 % LAB BASO % BASOPHIL % 0.5 LAB IGABS 0.00-0.08 K/uL IMMATURE <0.04 GRANS ABSOLUTE LAB SBANS 1.64-7.28 K/uL SEGS + 2.91 Bands,Absolute LAB ALYM 1.16-3.51 K/uL Abs Lymph 0.84 Low LAB AMONO 0.22-0.87 K/uL Abs Laurel 0.41 LAB AEOS 0.00-0.42 K/uL Abs Eos 0.23 LAB ABASO 0.00-0.15 K/uL Abs Baso <0.04 Performed By: #### CBCDFC, CA, CHM7, HFP, IPB, LDO, MGO, URICB #### [facility] [address] [place] [address] [address] [place] [address] CALCIUM Collected: 07/10/2018 Status: F Source: [facility] 12:05 AM [facility] REPOSITORY TYPE CODE TESTS RESULT OUT OF REFERENCE UNITS RANGE LAB CA 8.6-10.5 mg/dL Low Calcium 7.9 Performed By: #### CBCDFC, CA, CHM7, HFP, IPB, LDO, MGO, URICB #### [place] [address] CHEM 7 Collected: 07/10/2018 Status: F Source: [facility] 12:05 AM [facility] REPOSITORY TYPE CODE TESTS RESULT OUT OF REFERENCE UNITS RANGE LAB BUN 7-22 mg/dL BUN High 23 LAB NA 133-143 mmol/L Sodium 137 LAB K 3.5-5.0 mmol/L Potassium 4.6 LAB CL 98-108 mmol/L Chloride 108 LAB CO2 22-30 mmol/L Carbon Dioxide 22 LAB GLUC 70-99 mg/dL Glucose High 135 LAB CREA 0.50-1.20 mg/dL High Creatinine 1.66 LAB GAP 7-17 mmol/L Anion Gap 12 LAB BC BUN/CREA Ratio 14 LAB [facility] 278-305 mOsm/kg Osmolality 294 (Calc) LAB GFR >60 mL/min/1.73 Low sqM Est GFR,non 31 Estonian LAB GFRA >60 mL/min/1.73 Low sqM Est GFR, 38 Performed By: #### CBCDFC, CA, CHM7, HFP, IPB, LDO, MGO, URICB #### [facility] [address] [place] [address] HEPATIC FUNCTION Collected: 07/10/2018 Status: F Source: [facility] 12:05 AM [facility] REPOSITORY TYPE CODE TESTS RESULT OUT OF REFERENCE UNITS RANGE LAB ALB 3.5-5.0 g/dL Low Albumin 2.3 LAB BILD <0.3 mg/dL Bilirubin High Direct 0.4 LAB BILT <1.5 mg/dL Bilirubin Total 1.0 LAB ALP 32-126 U/L Alkaline Phosphatase 122 LAB ALT 9-48 U/L ALT 15 LAB AST 14-40 U/L AST 39 LAB TP 6.4-8.3 g/dL Low Total Protein 5.0 Performed By: #### CBCDFC, CA, CHM7, HFP, IPB, LDO, MGO, URICB #### [facility] [address] [place] [address] INORGANIC PHOSPHATE Collected: 07/10/2018 Status: F Source: [facility] 12:05 [facility] REPOSITORY TYPE CODE TESTS RESULT OUT OF REFERENCE UNITS RANGE LAB IP 2.2-4.6 mg/dL Inorg Phosphate 2.3 Performed By: #### CBCDFC, CA, CHM7, HFP, IPB, LDO, MGO, URICB #### [facility] [address] [place] [address] [address] LD TOTAL Collected: 07/10/2018 Status: F Source: [facility] 12:05 AM [facility] REPOSITORY TYPE CODE TESTS RESULT OUT OF RANGE REFERENCE UNITS LAB LD 100-190 U/L High LD Total 259 Performed By: #### CBCDFC, CA, CHM7, HFP, IPB, LDO, MGO, URICB #### [facility] [address] [place] [address] [address] MAGNESIUM Collected: 07/10/2018 Status: F Source: [facility] 12:05 AM [facility] REPOSITORY TYPE CODE TESTS RESULT OUT OF REFERENCE UNITS RANGE LAB MG 1.6-2.6 mg/dL Magnesium 1.7 Performed By: #### CBCDFC, CA, CHM7, HFP, IPB, LDO, MGO, URICB #### [facility] [address] [place] [id number] [place] [address] [place] [id number] URIC ACID Collected: 07/10/2018 Status: F Source: [facility] 12:05 AM [facility] REPOSITORY TYPE CODE TESTS RESULT OUT OF RANGE REFERENCE UNITS LAB URIC 2.8-6.0 mg/dL High Uric Acid 7.1 Performed By: #### CBCDFC, CA, CHM7, HFP, IPB, LDO, MGO, URICB #### [facility] [address] [place] [address] [place] [address] AMMONIA Collected: 07/10/2018 Status: F Source: [facility] 12:05 AM [facility] REPOSITORY TYPE CODE TESTS RESULT OUT OF REFERENCE UNITS RANGE LAB NH3 6-47 umol/L High Ammonia 59 Performed By: #### NH3B #### [facility] [address] [place] [id number] [place] [address] [place] [address] *POC GLUCOSE BATTERY Collected: 07/09/2018 Status: F Source: [facility] 5:56 PM [facility] REPOSITORY TYPE CODE TESTS RESULT OUT OF REFERENCE UNITS RANGE LAB GLUP 70-99 mg/dL High Glucose (poc 152 device) Result Comment: Notified RNread back No BRAVE per RN: PATIENT TYPE LAB PCSTYP *POC Capillary SAMPLE TYPE Blood *POC GLUCOSE BATTERY Collected: 07/09/2018 Status: F Source: [facility] 5:16 PM [facility] REPOSITORY TYPE CODE TESTS RESULT OUT OF REFERENCE UNITS RANGE LAB GLUP 70-99 mg/dL High Glucose (poc 158 device) Result Comment: No BRAVE per RN: PATIENT TYPE LAB PCSTYP *POC Capillary SAMPLE TYPE Blood *POC GLUCOSE BATTERY Collected: 07/09/2018 Status: F Source: [facility] 2:47 PM [facility] REPOSITORY TYPE CODE TESTS RESULT OUT OF REFERENCE UNITS RANGE LAB GLUP 70-99 mg/dL High Glucose (poc 178 device) Result Comment: No BRAVE per RN: PATIENT TYPE LAB PCSTYP *POC Capillary SAMPLE TYPE Blood AMMONIA Collected: 07/09/2018 Status: F Source: [facility] 1:56 PM [facility] REPOSITORY TYPE CODE TESTS RESULT OUT OF REFERENCE UNITS RANGE LAB NH3 6-47 umol/L High Ammonia 66 Performed By: #### NH3B #### [facility] [address] [place] [address] [facility] [address] [place] [address] *POC GLUCOSE BATTERY Collected: 07/09/2018 Status: F Source: [facility] 11:31 AM [facility] REPOSITORY TYPE CODE TESTS RESULT OUT OF REFERENCE UNITS RANGE LAB GLUP 70-99 mg/dL High Glucose (poc 135 device) Result Comment: Notified RNread back No BRAVE per RN: PATIENT TYPE LAB PCSTYP *POC Capillary SAMPLE TYPE Blood *POC GLUCOSE BATTERY Collected: 07/09/2018 Status: F Source: [facility] 7:26 AM [facility] REPOSITORY TYPE CODE TESTS RESULT OUT OF REFERENCE UNITS RANGE LAB GLUP 70-99 mg/dL High Glucose (poc 119 device) Result Comment: Notified RNread back No BRAVE per RN: PATIENT TYPE LAB PCSTYP *POC Capillary SAMPLE TYPE Blood CBC,PLATELET,DIFFERENTIAL - CCL Collected: Status: F Source: [facility] 07/09/2018 4:26 AM [facility] REPOSITORY TYPE CODE TESTS RESULT OUT OF REFERENCE UNITS RANGE LAB WBC 3.99-11.19 K/uL WBC Count 5.06 LAB RBC 3.91-5.04 M/uL RBC Count 2.81 Low LAB HGB 11.4-15.2 g/dL Hemoglobin 7.7 Low LAB HCT 34.9-44.3 % Hematocrit 24.4 Low LAB MCV 79.6-97.7 fL Mean Cell 86.8 Volume LAB MCH 25.9-33.9 pg Mean Cell 27.4 Hgb LAB MCHC 31.4-35.9 g/dL Mean Cell 31.6 Hgb Conc LAB RDW 10.8-14.9 % RBC 18.3 High Distribution LAB PLT 150-393 K/uL Platelet 60 Low Count LAB MPV 8.5-12.2 fL Mean 10.8 Platelet Volume LAB NRBC 0.0-0.2 /100 WBC NUCLEATED 0.0 RBC LAB DTYPE Electronic DIFFERENTIAL TYPE Differential LAB IGRE % IMMATURE 0.4 GRANS % LAB SEGS % NEUTROPHIL 70.2 SEGMENTED LAB LYM % LYMPHOCYTE 15.0 % LAB MON % MONOCYTE % 7.9 LAB EOS % *EOSINOPHIL 5.7 % LAB BASO % BASOPHIL % 0.8 LAB IGABS 0.00-0.08 K/uL IMMATURE <0.04 GRANS ABSOLUTE LAB SBANS 1.64-7.28 K/uL SEGS + 3.55 Bands,Absolute LAB ALYM 1.16-3.51 K/uL Abs Lymph 0.76 Low LAB AMONO 0.22-0.87 K/uL Abs Laurel 0.40 LAB AEOS 0.00-0.42 K/uL Abs Eos 0.29 LAB ABASO 0.00-0.15 K/uL Abs Baso 0.04 Performed By: #### CBCDFC, CA, CHM7, HFP, IPB, LDO, MGO, URICB #### [facility] [address] [place] [address] CALCIUM Collected: 07/09/2018 Status: F Source: [facility] 4:26 [facility] REPOSITORY TYPE CODE TESTS RESULT OUT OF REFERENCE UNITS RANGE LAB CA 8.6-10.5 mg/dL Low Calcium 7.7 Performed By: #### CBCDFC, CA, CHM7, HFP, IPB, LDO, MGO, URICB #### [facility] [address] [place] [address] CHEM 7 Collected: 07/09/2018 Status: F Source: [facility] 4:26 [facility] REPOSITORY TYPE CODE TESTS RESULT OUT OF REFERENCE UNITS RANGE LAB BUN 7-22 mg/dL BUN High 23 LAB NA 133-143 mmol/L Sodium 139 LAB K 3.5-5.0 mmol/L Potassium 4.4 LAB CL 98-108 mmol/L Chloride High 111 LAB CO2 22-30 mmol/L Low Carbon Dioxide 21 LAB GLUC 70-99 mg/dL Glucose High 150 LAB CREA 0.50-1.20 mg/dL High Creatinine 1.69 LAB GAP 7-17 mmol/L Anion Gap 11 LAB BC BUN/CREA Ratio 14 LAB [facility] 278-305 mOsm/kg Osmolality 299 (Calc) LAB GFR >60 mL/min/1.73 Low sqM Est GFR,non 30 [place]ian LAB GFRA >60 mL/min/1.73 Low sqM Est GFR, 37 Performed By: #### CBCDFC, CA, CHM7, HFP, IPB, LDO, MGO, URICB #### [facility] [address] [place] [address] [place] [address] HEPATIC FUNCTION Collected: 07/09/2018 Status: F Source: [facility] 4:26 AM [facility] REPOSITORY TYPE CODE TESTS RESULT OUT OF REFERENCE UNITS RANGE LAB ALB 3.5-5.0 g/dL Low Albumin 2.3 LAB BILD <0.3 mg/dL Bilirubin High Direct 0.4 LAB BILT <1.5 mg/dL Bilirubin Total 1.1 LAB ALP 32-126 U/L Alkaline Phosphatase 117 LAB ALT 9-48 U/L ALT 14 LAB AST 14-40 U/L AST 34 LAB TP 6.4-8.3 g/dL Low Total Protein 4.9 Performed By: #### CBCDFC, CA, CHM7, HFP, IPB, LDO, MGO, URICB #### [facility] [address] [place] [address] INORGANIC PHOSPHATE Collected: 07/09/2018 Status: F Source: [facility] 4:26 AM [facility] REPOSITORY TYPE CODE TESTS RESULT OUT OF REFERENCE UNITS RANGE LAB IP 2.2-4.6 mg/dL Inorg Phosphate 2.5 Performed By: #### CBCDFC, CA, CHM7, HFP, IPB, LDO, MGO, URICB #### [facility] [address] [place] [address] [address] [address] LD TOTAL Collected: 07/09/2018 Status: F Source: [facility] 4:26 AM [facility] REPOSITORY TYPE CODE TESTS RESULT OUT OF RANGE REFERENCE UNITS LAB LD 100-190 U/L High LD Total 220 Performed By: #### CBCDFC, CA, CHM7, HFP, IPB, LDO, MGO, URICB #### [facility] [address] [place] [id number] [place] [address] [place] [address] MAGNESIUM Collected: 07/09/2018 Status: F Source: [facility] 4:26 AM [facility] REPOSITORY TYPE CODE TESTS RESULT OUT OF REFERENCE UNITS RANGE LAB MG 1.6-2.6 mg/dL Magnesium 1.8 Performed By: #### CBCDFC, CA, CHM7, HFP, IPB, LDO, MGO, URICB #### [facility] [address] [place] [id number] [place] [address] [place] [address] URIC ACID Collected: 07/09/2018 Status: F Source: [facility] 4:26 AM [facility] REPOSITORY TYPE CODE TESTS RESULT OUT OF RANGE REFERENCE UNITS LAB URIC 2.8-6.0 mg/dL High Uric Acid 7.1 Performed By: #### CBCDFC, CA, CHM7, HFP, IPB, LDO, MGO, URICB #### [facility] [address] [place] [id number] [place] [address] [place] [address] *POC GLUCOSE BATTERY Collected: 07/08/2018 Status: F Source: [facility] 9:06 PM [facility] REPOSITORY TYPE CODE TESTS RESULT OUT OF REFERENCE UNITS RANGE LAB GLUP 70-99 mg/dL High Glucose (poc 148 device) Result Comment: No BRAVE per RN: PATIENT TYPE LAB PCSTYP *POC Capillary SAMPLE TYPE Blood *POC GLUCOSE BATTERY Collected: 07/08/2018 Status: F Source: [facility] 6:49 PM [facility] REPOSITORY TYPE CODE TESTS RESULT OUT OF REFERENCE UNITS RANGE LAB GLUP 70-99 mg/dL High Glucose (poc 148 device) Result Comment: Notified RNread back No BRAVE per RN: PATIENT TYPE LAB PCSTYP *POC Capillary SAMPLE TYPE Blood SURGICAL PATHOLOGY Observed: 07/08/2018 Status: F Source: [facility] 3:11 PM [facility] REPOSITORY Surgical Pathology Report Patient Name: KIM DILLON Med. Rec #: [id number] Submitting Physician: AMIRT SHEN --- Clinical History --- NHL ---Final Pathologic Diagnosis--- A. Bone marrow, left posterior iliac crest, biopsy, aspirate, and peripheral blood smear: - No morphologic or immunophenotypic evidence of involvement by lymphoma or metastatic carcinoma; see comment. - Hypercellular bone marrow (65%) with erythroid and megakaryocytic hyperplasia and adequate myelopoiesis; see comment. 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 There is no morphologic or immunophenotypic evidence of metastatic carcinoma or large cell lymphoma. Please correlate with the clinical findings and with the concurrent cytogenetics studies. [id number]:07/12/2018 Electronically Signed By Humberto Hare M.D., PhD. 07/12/2018 12:25:41 Professional Interpretation performed at location: [address] [place] [address] ---MICROSCOPIC:--- BONE MARROW REPORT The following specimens were interpreted to arrive at the above diagnosis: peripheral blood smear, bone marrow aspirate, decalcified trephine biopsy, and iron stain. CBC data and smear review (200 cells): WBC: 4.19 x K/uL; Hgb: 6.9 g/dL; Hct: 22.1%; MCV: 87.4 fl; RDW: 17.9%; Plt: 44 K/uL Electronic differential: immature grans 0.5%, bands 0%, neutrophils 70.2%, lymphocytes 16.7%, monocytes 7.6%, eosinophils 4.5%, basophils 0.5% Blood smear findings: Review of the blood smear shows adequate leukocytes with normal differential and unremarkable morphology. No atypical lymphoid cells are seen. There is a normocytic hypochromic anemia with increased anisocytosis, occasional teardrop cells, and elliptocytes. Platelets are decreased with unremarkable morphology. Aspirate smear quality: Spicules are present, and the stain is of good quality. Bone marrow aspirate smear differential (500 cells): Blasts: 1% Promyelocytes: 1% Myelocytes: 4% Metamyelocytes: 9% Bands/neutrophils: 17% Lymphocytes: 7% Monocytes: 2% Eosinophils: 3% Basophils: 0% Erythroid: 55% Plasma cells: 1% M:E Ratio: The myeloid to erythroid ratio is 0.6:1. Erythropoiesis: Erythroid predominance with full spectrum maturation and occasional dyspoietic forms (<10%). Granulopoiesis: Adequate with progressive maturation and no overt dysplasia. Blasts are not increased. Megakaryocytes: Megakaryocytes are present in mildly increased numbers with unremarkable morphology. Lymphocytes/plasma cells: The lymphocytes and plasma cells are unremarkable. Large atypical lymphoid cells are not seen. Iron stain: Iron staining cannot be evaluated due to lack of spicules on the iron stained aspirate smear. No ring sideroblasts are seen. The iron control shows appropriate reactivity. Biopsy findings: The bone marrow shows a cellularity of 65%. Large atypical lymphoid and carcinoma cells are not seen by H&E. Ancillary studies: A cytokeratin AE1/AE3 stain is negative. A CD3 stain labels scattered small T cells that are focally clustered. A CD20 stain labels a small number of scattered small B cells; there is no immunophenotypic evidence of a large B cell infiltrate. Flow cytometric analysis (marrow aspirate): There is no definitive immunophenotypic evidence of an abnormal population of B lymphocytes, T lymphocytes or blasts. Cytogenetics/FISH: Performed and resulted in a separate report ([id number]). Immunohistochemical stains were performed in addition to flow cytometry in specimen A block A1 to further characterize the lymphoid cells in the context of cell morphology and tissue architecture, since discrepancy between flow cytometric analysis and morphology can occur due to sampling bias, preferential loss of targeted cells, or hemodilution. All controls show appropriate reactivity. All immunohistochemistry, in situ hybridization, and histochemical tests were developed by and are performed at the [facility], [address] [place] [address]. All tests reported here, except those addressing HER2 overexpression as a predictive marker, have not been cleared or approved by the FDA. The laboratory is regulated under CLIA as qualified to perform high-complexity testing. The tests are used for clinical purposes. They should not be regarded as investigational or for research. The above report complies, in slightly modified form, with the guidelines of the [employer] for the reporting of cancer specimens. ---SPECIMEN(S) RECEIVED:--- SBX A: Bone marrow, BX ---GROSS DESCRIPTION:--- The specimen is received in one properly labeled container with the patient's name and accession number. A. The specimen is designated BM BX L and consists of one torrez-red core of calcified tissue that measures 1.3 cm in length x 0.3 cm in average diameter. TE 1 Note: This cassette will be ready after decalcification. Lab Use Only: Job ID [id number] Gross description by: Jennifer Alba Performed By: #### SURGP #### [facility] [address] [place] [address] [place] [address] PACKAGE 3 Collected: 07/08/2018 Status: F Source: [facility] 2:35 PM [facility] REPOSITORY TYPE CODE TESTS RESULT OUT OF REFERENCE UNITS RANGE LAB BMBXJ BM Biopsy Doctor to - CHRI interpret test LAB BMFEJ BM Iron Doctor to Stain interpret test Performed By: #### P3J #### Enoch CCCT, [facility] [address] [place] [address] #### BMIPP #### [facility] [address] [place] [address] [address] [place] [address] BM IMMUNOPHENOTYPING Collected: Status: F Source: [facility] 07/08/2018 2:35 PM [facility] REPOSITORY TYPE CODE TESTS RESULT OUT OF REFERENCE UNITS RANGE LAB ICINT1 Immunophenotyping BM SEE NOTES Result Comment: (NOTE) IMMUNOPHENOTYPING DIAGNOSIS PATIENT NAME: KIM DILLON : 1955 ACCN#: [id number] [facility] od: Humberto Hare M.D., Ph.D. [id number] SAMPLE TYPE: Bone Marrow LABORATORY INTERPRETATION: There is no definitive immunophenotypic evidence of an abnormal population of B lymphocytes, T lymphocytes or blasts. PHENOTYPIC DESCRIPTION: Flow cytometric analysis of the bone marrow was performed using a ten color technique with a gating strategy based on CD45 staining and light side scatter characteristics. Lymphocytes represent 16.5 % of the total events analyzed. Of the lymphocytes: 8.8 % are B cells (CD19+) with a [place]:Lambda ratio of 4:2 , 82.8 % are T cells (CD3+) with a CD4:CD8 ratio of 2.2 and 7.3 % are NK cells (positive for CD56 and/or CD16 and negative for CD3). Blasts, defined by CD45 faint staining and low side scatter represent 0.7 % of the total events analyzed and dong as indicated in the table below. MARKER DESCRIPTION CD45 DIM % LYM REG % MONO REG % 0.7 16.5 2.3 CD19+ B CELL 7.7 8.8 0.5 CD19+/CD20+ B CELL 0.3 7.3 1.7 SIG SURFACE IG NA 7 NA K/L KAPPA/LAMBDA NA 4:2 NA CD2+ TCELL 6.7 87.9 7.1 CD3+ T CELL 4.5 82.8 5.3 CD4+/CD3- T CELL 0.3 0.8 78.6 CD4+/CD3+ T HELPER 0.6 57.0 7.5 CD8+/CD3- T CELL 0.9 2.0 0.6 CD8+/CD3+ T SUPPRESSOR 0.3 26.5 2.9 HSRA CD4/CD8 NA 2.2 NA CD5+/CD19- T CELL 2.0 81.7 6.6 CD5+/CD19+ 0.0 0.2 0.6 CD23+ B CELL SUBSET 1.4 6.6 1.5 CD19+/CD10+ 0.0 0.0 0.7 CD10+ HILDA 0.0 0.0 1.2 CD7+/CD2- T CELL 2.2 2.5 0.3 CD7+/CD2+ T CELL 4.1 77.0 4.5 CD13+/HLA DR- MONO/GRAN 41.[address]CD13+ 8.9 0.6 92.1 HLADR+/CD13- 39.5 33.4 4.5 CD14+CD13- 2.6 0.0 0.3 CD13+/CD14+ 2.0 0.3 89.4 CD56/16+/CD3- NATURAL KILLER 26.8 7.3 24.4 MARKERS TESTED: CD10, CD13, CD14, CD19, CD2, CD20, CD23, CD3, CD4, CD45, CD5, CD56/16, CD7, CD8, HLA DR, KAPPA, LAMBDA MARKERS BILLED: 17 This test was developed and its performance characteristics determined The Flow Cytometry Laboratory at [facility]. It has not been cleared or approved by the FDA. This laboratory is certified under the Clinical Laboratory Improvement Amendments (CLIA) as qualified to perform high complexity clinical laboratory testing. This test is used for clinical purposes. It should not be regarded as investigational or for research. The [facility] Flow Cytometry Laboratory lower limit of CLL MRD detection is 0.1% of the gated lymphocytes. Performed By: #### P3J #### Enoch SWANN, [facility] [address] [place] [address] #### BMIPP #### [facility] [address] [place], [place] [id number] [place] [address] [address] [place], [place] [address] CYTOGENETICS Observed: 07/08/2018 Status: F Source: [facility] 2:15 PM [facility] REPOSITORY Cytogenetics Report Patient Name: KIM DILLON Med. Rec #: [id number] Submitting Physician: AMRIT SHEN Clinical History Aggressive B-Cell Lymphoma SPECIMEN(S) RECEIVED: A: Bone Marrow, Aspirate KARYOTYPE 46,XX[25] INTERPRETATION This is a bone marrow aspirate from a patient with aggressive B-cell lymphoma. This sample was cultured unstimulated for 24 hours and stimulated with oligonucleotides for 72 hours. Cytogenetic analysis of the sample shows normal chromosomes. Normal chromosomes are found in the marrow of patients with lymphoma unless there is marrow involvement. Even with marrow involvement it is important that involved foci are examined. Most lymphomas have abnormal chromosomes when involved tissue is examined. FISH analyses on this sample were negative for IGH-BCL2, BCL6 and MYC rearrangements. Due to the limitations of this analysis, these results do not rule out an abnormality. Subtle chromosomal abnormalities or the presence of abnormalities that could exist in a low population of cells cannot be excluded. sc/NAH:07/24/2018 Electronically Signed By Purvi Remy, PhD, AB, [facility] 07/24/2018 11:41:57 LABORATORY DATA Band Level: 450 Process: 1 Mitogen: CpG Duration: 72 hrs Banding: GTG Media: RPMI 30min colcemid Number of cells: 15 Process: 2 Mitogen: none Duration: 24 hrs Banding: GTG Media: BMC 30min colcemid Number of cells: 10 Chromosome Count Analysis 43 3 44 2 45 3 46 17 Total 25 Total number of cells karyotyped: 25 FISH REPORT Cytogenetics FISH Report Date Ordered: 07/08/2018 Status: Signed Out Date Reported: 07/22/2018 Laboratory Data Process: 1 Mitogen: CpG Duration: 72hrs Banding: FISH Media: RPMI 30min colcemid Number of interphases analyzed: BCL6 201 MYC 201 IGH-BCL2 200 Probe/Control Range Patient/Interpretation BCL6(3q27(ba))/0-2.3% 0.5%/negative MYC(8q24(ba))/0-3.0% 0.5%/negative IGH-BCL2(14q32.3-18q21)/0-0.6% 0%/negative Karyotype/Interpretation nuc marilia(BCL6,MYC)x2[200],(IGH,BCL2)x2[200] This is a bone marrow aspirate from a patient with aggressive B-cell lymphoma. The sample was stimulated with oligonucleotides for 72 hours. FISH analysis with the dual fusion IGH-BCL2 (14q32.3;18q21) probes ([employer]) was negative for fusion products and showed a normal signal number for each of these probes. Additionally, FISH analyses with the BCL6 and MYC break-apart probes ([employer]), which distinguish rearrangements of these genes, were each negative for splitting and showed normal signal numbers for each of these probes. These results indicate this sample is negative for rearrangements involving BCL6, MYC or IGH-BCL2 within the limits of these analyses. METHOD: Fluorescence in situ hybridization (FISH) was performed by applying DNA probes (analyte specific reagents, ASRs) developed by [employer] (and/or [employer], [employer] or [employer]) to interphase (non-dividing) nuclei isolated from peripheral blood/bone marrow. These are specific DNA probes that detect a number of commonly observed aberrations in hematologic malignancies. This test was developed and its performance characteristics determined by the Cytogenetics Lab at [facility]. It has not been cleared or approved by the FDA. The laboratory is regulated under CLIA as qualified to perform high-complexity testing. This test is used for clinical purposes. It should not be regarded as investigational or for research. Pursuant to the requirements of CLIA'88, this laboratory has established and verified the test's accuracy and precision. Purvi Remy, PhD, ABMG, FACMG Performed By: #### CYTOG #### [facility] [place] [address] *POC GLUCOSE BATTERY Collected: 07/08/2018 Status: F Source: [facility] 1:46 PM [facility] REPOSITORY TYPE CODE TESTS RESULT OUT OF REFERENCE UNITS RANGE LAB GLUP 70-99 mg/dL High Glucose (poc 107 device) Result Comment: Notified RNread back No BRAVE per RN: PATIENT TYPE LAB PCSTYP *POC Capillary SAMPLE TYPE Blood NUC PET LYMPHOMA Observed: 07/08/2018 Status: F Source: [facility] 1:08 PM [facility] REPOSITORY EXAM: NUC PET LYMPHOMA, 07/08/2018 12:49 PM CLINICAL INDICATIONS: High grade B cell lymphoma; , COMPARISON: PET/CT November 29, 2016 CT DOSE: DLP: 1026 mGy x cm kVp: 120 TECHNIQUE: The patient's fasting blood glucose was 100 mg/dl. Approximately 77 minutes following the injection of 11.0 mCi of F-18 FDG, the patient was positioned on the Siemens Biograph mCT TOF< PET/CT-64, Serjio imaging unit. A low resolution non-contrast CT was obtained from the top of the head through the mid-femurs for use in attenuation correction and anatomic correlation. PET emission scans of this anatomic region were acquired shortly thereafter. Axial, sagittal, coronal and maximal intensity projection reconstruction images were presented for interpretation. FINDINGS: Head/Neck: Nonspecific linear muscle uptake adjacent to the right lobe of the thyroid. Normal, intense physiologic uptake is noted in the cerebral cortex luna matter and subcortical nuclei without gross hypermetabolic abnormality. Chest: Bilateral opacities seen with hypermetabolic activity likely infectious or inflammatory in etiology. Hypermetabolic mediastinal adenopathy noted which appears new since prior exam. maximum SUV of a right paratracheal lymph node measures 14.7. Previously this was background activity. There is also evidence of bilateral hilar adenopathy also which is new since prior exam. Bilateral pleural effusions seen without significant FDG avidity. Physiologic FDG uptake is seen in the myocardium. Abdomen/Pelvis: Physiologic FDG uptake is seen throughout the liver, spleen and bowel. Innumerable hypermetabolic foci noted throughout the liver, new since prior exam. Physiologic FDG excretion is seen in the kidneys, ureters, and bladder. There are no hypermetabolic lesions in the adrenal glands. Hypermetabolic retrocrural and retroperitoneal adenopathy is seen demonstrating hypermetabolic activity, new since prior exam. Other mildly avid retroperitoneal lymph nodes are seen which are background activity and nonspecific. Focal increased uptake seen within the small bowel which is indeterminate. Hypermetabolic peripancreatic adenopathy also noted, new. Musculoskeletal: There is physiologic FDG uptake throughout the axial and proximal appendicular skeleton. Intense hypermetabolic activity seen within the left humeral head which is new since prior exam.. Multifocal other abnormalities noted within the bones including within the rib cage, the thoracic spine, the lumbar spine, the sacrum, bilateral iliac bones, the left acetabulum, and the left femoral neck. Uptake also noted within the left ischium. IMPRESSION: Significant interval progression since the prior exam with new hypermetabolic adenopathy above and below the diaphragm, interval development of the hepatic metastatic disease, as well as of osseous metastatic disease. Opacities within the bilateral lungs may be infectious or inflammatory in etiology. Deauville score: 5 *POC GLUCOSE BATTERY Collected: 07/08/2018 Status: F Source: [facility] 10:56 AM [facility] REPOSITORY TYPE CODE TESTS RESULT OUT OF REFERENCE UNITS RANGE LAB GLUP 70-99 mg/dL High Glucose (poc 100 device) Result Comment: No BRAVE per RN: PATIENT TYPE LAB PCSTYP *POC Capillary SAMPLE TYPE Blood BK VIRAL LOAD, Collected: 07/08/2018 Status: F Source: [facility] PLASMA - UHE 8:09 AM [facility] REPOSITORY TYPE CODE TESTS RESULT OUT OF REFERENCE UNITS RANGE LAB BKBPT <500 copies/mL BK Viral <500 Load, plasma Result Comment: This test was performed using a real time PCR assay. The dynamic range for this assay is 500-5,000,000 copies/mL. This test was developed and its performance characteristics determined by The Clinical Microbiology Laboratory at [facility]. It has not been cleared or approved by the FDA. The laboratory is regulated under CLIA as qualified to perform high-complexity testing. This test is used for clinical purposes. It should not be regarded as investigational or for research Performed By: #### BKBP #### [place] [address] *POC GLUCOSE BATTERY Collected: 07/08/2018 Status: F Source: [facility] 7:38 AM [facility] REPOSITORY TYPE CODE TESTS RESULT OUT OF REFERENCE UNITS RANGE LAB GLUP 70-99 mg/dL High Glucose (poc 123 device) Result Comment: Notified RNread back No BRAVE per RN: PATIENT TYPE LAB PCSTYP *POC Capillary SAMPLE TYPE Blood *POC GLUCOSE BATTERY Collected: 07/08/2018 Status: F Source: [facility] 6:30 AM [facility] REPOSITORY TYPE CODE TESTS RESULT OUT OF REFERENCE UNITS RANGE LAB GLUP 70-99 mg/dL High Glucose (poc 127 device) Result Comment: No BRAVE per RN: PATIENT TYPE LAB PCSTYP *POC Capillary SAMPLE TYPE Blood IMMUNOPHENOTYPING, Collected: Status: X Source: [facility] FLUID/TISSUE 07/08/2018 5:35 AM [facility] REPOSITORY TYPE CODE TESTS RESULT OUT OF RANGE REFERENCE UNITS LAB GIPP This result Immunophenot has been yping, cancelled. fluid/tissue Performed By: #### GIPP #### [facility] (DEFAULT) [address] [place] [address] #### PBIPP #### [facility] [address] [place] [address] [facility] [address] [place], [place] [address] IMMUNOPHENOTYPING, BLOOD Collected: Status: F Source: [facility] 07/08/2018 5:35 AM [facility] REPOSITORY TYPE CODE TESTS RESULT OUT OF REFERENCE UNITS RANGE LAB ICINT Immunophenotyping (PBIPP) SEE NOTES Result Comment: (NOTE) IMMUNOPHENOTYPING DIAGNOSIS PATIENT NAME: KIM DILLON : 1955 ACCN#: [id number] REVIEWED BY: Diann Serna M.D., Ph.D. [id number] SAMPLE TYPE: Peripheral Blood LABORATORY INTERPRETATION: There is no definite evidence of an abnormal population of B lymphocytes or T lymphocytes. PHENOTYPIC DESCRIPTION: Flow cytometric analysis of a peripheral blood was performed using a ten color technique with a gating strategy based on CD45 staining and light side scatter characteristics. Lymphocytes represent 14.5 % of the total events analyzed. Of the lymphocytes: 9.8 % are B cells (CD19+) with a [place]:Lambda ratio of 6:3 , 83.1 % are T cells (CD3+) with a CD4:CD8 ratio of 2.5 and an absolute CD4+/CD3+ count of 425 ABS/mm3 and 5.8 % are NK cells (positive for CD56 and/or CD16 and negative for CD3). MARKER DESCRIPTION LYM REG% ABS/mm3 NORMAL % NML ABS ABSOLUTE LYMPHOCYTE COUNT [phone] CD19+ B CELL 9.8 69 2.0-21.0 20-1008 CD19+/CD20+ B CELL 9.5 67 2.0-21.0 20-1008 SIG SURFACE IG 9 K/L KAPPA/LAMBDA 6:3 RATIO CD2+ T CELL 87.1 610 70.0-92.0 700-4416 CD3+ T CELL 83.1 582 59.0-92.0 590-4416 CD4+/CD3- T CELL 0.9 CD4+/CD3+ T HELPER 60.7 425 32.0-62.0 320-2976 CD8+/CD3- T CELL 1.5 CD8+/CD3+ T SUPPRESSOR 24.4 171 11.0-40.0 110-1920 HSRA CD4/CD8 2.5 RATIO CD5+/CD19- T CELL 83.0 CD5+/CD19+ 0.5 CD23+ B CELL SUBSET 9.1 CD19+/CD10+ 0.0 CD10+ HILDA 0.1 CD7+/CD2- T CELL 1.9 CD7+/CD2+ T CELL 76.0 CD13+/HLA DR- MONO/GRAN 0.[address]+/CD13+ 1.0 HLADR+/CD13- 32.1 CD14+/CD13- 0.0 CD13+/CD14+ 0.2 CD56/16+/CD3- NATURAL KILLER 5.8 41 3.0-25.0 30-1200 MARKERS TESTED: CD10, CD13, CD14, CD19, CD2, CD20, CD23, CD3, CD4, CD45, CD5, CD56/16, CD7, CD8, HLA DR, KAPPA, LAMBDA MARKERS BILLED: 17 This test was developed and its performance characteristics determined The Flow Cytometry Laboratory at [facility]. It has not been cleared or approved by the FDA. This laboratory is certified under the Clinical Laboratory Improvement Amendments (CLIA) as qualified to perform high complexity clinical laboratory testing. This test is used for clinical purposes. It should not be regarded as investigational or for research. The [facility] Flow Cytometry Laboratory lower limit of CLL MRD detection is 0.1% of the gated lymphocytes. [id number] KIM DILLON Page 1 of 1 Performed By: #### GIPP #### [facility] (DEFAULT) [address] [place] [id number] #### PBIPP #### [facility] [address] [place] [address] [facility] [address] [place] [address] CBC,PLATELET,DIFFERENTIAL - CCL Collected: Status: F Source: [facility] 07/08/2018 5:35 AM [facility] REPOSITORY TYPE CODE TESTS RESULT OUT OF REFERENCE UNITS RANGE LAB WBC 3.99-11.19 K/uL WBC Count 4.19 LAB RBC 3.91-5.04 M/uL Low RBC Count 2.53 LAB HGB 11.4-15.2 g/dL Low alert Hemoglobin 6.9 Result Comment: This result has been called to RENALDO ELIAS by [facility] on 07 08 2018 at 0648, and has been read back. LAB HCT 34.9-44.3 % Hematocrit 22.1 Low LAB MCV 79.6-97.7 fL Mean Cell 87.4 Volume LAB MCH 25.9-33.9 pg Mean Cell 27.3 Hgb LAB MCHC 31.4-35.9 g/dL Mean Cell 31.2 Low Hgb Conc LAB RDW 10.8-14.9 % RBC 17.9 High Distribution LAB PLT 150-393 K/uL Platelet 44 Low Count LAB MPV 8.5-12.2 fL Mean 9.6 Platelet Volume LAB NRBC 0.0-0.2 /100 WBC NUCLEATED 0.0 RBC LAB DTYPE Electronic DIFFERENTIAL TYPE Differential LAB IGRE % IMMATURE 0.5 GRANS % LAB SEGS % NEUTROPHIL 70.2 SEGMENTED LAB LYM % LYMPHOCYTE 16.7 % LAB MON % MONOCYTE % 7.6 LAB EOS % *EOSINOPHIL 4.5 % LAB BASO % BASOPHIL % 0.5 LAB IGABS 0.00-0.08 K/uL IMMATURE <0.04 GRANS ABSOLUTE LAB SBANS 1.64-7.28 K/uL SEGS + 2.94 Bands,Absolute LAB ALYM 1.16-3.51 K/uL Abs Lymph 0.70 Low LAB AMONO 0.22-0.87 K/uL Abs Laurel 0.32 LAB AEOS 0.00-0.42 K/uL Abs Eos 0.19 LAB ABASO 0.00-0.15 K/uL Abs Baso <0.04 Performed By: #### CBCDFC, CHM7, CA, URICB, IPB, MGO, LDO, QIMM, HIV, HEP3B, B2M, SIMFXB, SPEB #### [facility] [place] [address] [place] [address] #### EBVPCR, CMVPCR #### [address] [address] CHEM 7 Collected: 07/08/2018 Status: F Source: [facility] 5:35 AM [facility] REPOSITORY TYPE CODE TESTS RESULT OUT OF REFERENCE UNITS RANGE LAB BUN 7-22 mg/dL BUN 20 LAB NA 133-143 mmol/L Sodium 141 LAB K 3.5-5.0 mmol/L Potassium 3.9 LAB CL 98-108 mmol/L Chloride High 112 LAB CO2 22-30 mmol/L Low Carbon Dioxide 21 LAB GLUC 70-99 mg/dL Glucose High 130 LAB CREA 0.50-1.20 mg/dL High Creatinine 1.39 LAB GAP 7-17 mmol/L Anion Gap 12 LAB BC BUN/CREA Ratio 14 LAB OSMC 278-305 mOsm/kg Osmolality 299 (Calc) LAB GFR >60 mL/min/1.73 Low sqM Est GFR,non 38 Estonian LAB GFRA >60 mL/min/1.73 Low sqM Est GFR, 46 Performed By: #### CBCDFC, CHM7, CA, URICB, IPB, MGO, LDO, QIMM, HIV, HEP3B, B2M, SIMFXB, SPEB #### [facility] [id number] [place] [address] #### EBVPCR, CMVPCR #### [address] [address] CALCIUM Collected: 07/08/2018 Status: F Source: [facility] 5:35 AM [facility] REPOSITORY TYPE CODE TESTS RESULT OUT OF REFERENCE UNITS RANGE LAB CA 8.6-10.5 mg/dL Low Calcium 7.8 Performed By: #### CBCDFC, CHM7, CA, URICB, IPB, MGO, LDO, QIMM, HIV, HEP3B, B2M, SIMFXB, SPEB #### [facility] [id number] [place] [address] #### EBVPCR, CMVPCR #### [place] [address] URIC ACID Collected: 07/08/2018 Status: F Source: [facility] 5:35 AM [facility] REPOSITORY TYPE CODE TESTS RESULT OUT OF RANGE REFERENCE UNITS LAB URIC 2.8-6.0 mg/dL Uric Acid 6.0 Performed By: #### CBCDFC, CHM7, CA, URICB, IPB, MGO, LDO, QIMM, HIV, HEP3B, B2M, SIMFXB, SPEB #### [facility] [address] [place] [address] #### EBVPCR, CMVPCR #### [address] [address] INORGANIC PHOSPHATE Collected: 07/08/2018 Status: F Source: [facility] 5:35 AM [facility] REPOSITORY TYPE CODE TESTS RESULT OUT OF REFERENCE UNITS RANGE LAB IP 2.2-4.6 mg/dL Inorg Phosphate 2.7 Performed By: #### CBCDFC, CHM7, CA, URICB, IPB, MGO, LDO, QIMM, HIV, HEP3B, B2M, SIMFXB, SPEB #### [facility] [address] [place] [address] [facility] [address] [address] #### EBVPCR, CMVPCR #### [address] [address] MAGNESIUM Collected: 07/08/2018 Status: F Source: [facility] 5:35 AM [facility] REPOSITORY TYPE CODE TESTS RESULT OUT OF REFERENCE UNITS RANGE LAB MG 1.6-2.6 mg/dL Magnesium 2.0 Performed By: #### CBCDFC, CHM7, CA, URICB, IPB, MGO, LDO, QIMM, HIV, HEP3B, B2M, SIMFXB, SPEB #### [facility] [id number] [place] [address] [address] [place] [address] #### EBVPCR, CMVPCR #### [place] [address] LD TOTAL Collected: 07/08/2018 Status: F Source: [facility] 5:35 AM [facility] REPOSITORY TYPE CODE TESTS RESULT OUT OF RANGE REFERENCE UNITS LAB LD 100-190 U/L High LD Total 213 Performed By: #### CBCDFC, CHM7, CA, URICB, IPB, MGO, LDO, QIMM, HIV, HEP3B, B2M, SIMFXB, SPEB #### [facility] [id number] [place] [address] [address] #### EBVPCR, CMVPCR #### [address] [address] QUANTITATIVE Collected: 07/08/2018 Status: F Source: [facility] IMMUNOGLOBULINS 5:35 AM [facility] REPOSITORY TYPE CODE TESTS RESULT OUT OF RANGE REFERENCE UNITS LAB IGG 600-1560 mg/dL IgG 883 LAB IGA 90-410 mg/dL IgA 345 LAB IGM 30-360 mg/dL IgM 128 Performed By: #### CBCDFC, CHM7, CA, URICB, IPB, MGO, LDO, QIMM, HIV, HEP3B, B2M, SIMFXB, SPEB #### [facility] [address] [place] [address] [facility] [address] [place] [address] #### EBVPCR, CMVPCR #### [address] [address] HIV-1/HIV-2 AB WITH P24 Collected: 07/08/2018 Status: F Source: [facility] ANTIGEN 5:35 AM [facility] REPOSITORY TYPE CODE TESTS RESULT OUT OF REFERENCE UNITS RANGE LAB HIV NONREACTIVE NONREACTIVE HIV-1/HIV-2 AB with p24 Antige Performed By: #### CBCDFC, CHM7, CA, URICB, IPB, MGO, LDO, QIMM, HIV, HEP3B, B2M, SIMFXB, SPEB #### [facility] [address] [place] [phone] [place] [address] [place] [address] #### EBVPCR, CMVPCR #### [address] [address] CHRONIC HEPATITIS B Collected: 07/08/2018 Status: F Source: [facility] PACKAGE 5:35 AM [facility] REPOSITORY TYPE CODE TESTS RESULT OUT OF REFERENCE UNITS RANGE LAB HBSAG Negative Hep B Surface Ag Negative LAB HBSAB Negative Hep B Surface Ab Negative LAB HBCBG Negative Hep B Core Ab,Total Negative (IgG+IgM) LAB HCAB Negative Hepatitis C Negative Antibody Performed By: #### CBCDFC, CHM7, CA, URICB, IPB, MGO, LDO, QIMM, HIV, HEP3B, B2M, SIMFXB, SPEB #### [facility] [address] [place] [address] [facility] [address] [place] [address] #### EBVPCR, CMVPCR #### [place] [address] BETA 2 MICROGLOBULIN Collected: 07/08/2018 Status: F Source: [facility] 5:35 AM [facility] REPOSITORY TYPE CODE TESTS RESULT OUT OF REFERENCE UNITS RANGE LAB B2M 0.60-2.11 mg/L Beta 2 High Microglobulin 6.5 Performed By: #### CBCDFC, CHM7, CA, URICB, IPB, MGO, LDO, QIMM, HIV, HEP3B, B2M, SIMFXB, SPEB #### [address] [address] [place] [address] #### EBVPCR, CMVPCR #### [address] [address] EBV BY PCR, QUANT, Collected: 07/08/2018 Status: F Source: [facility] BLOOD [facility] 5:35 AM [facility] REPOSITORY TYPE CODE TESTS RESULT OUT OF RANGE REFERENCE UNITS LAB EBV1 <1000 IU/mL EBV by <1000 PCR, Quant, Blood Result Comment: This test was performed using a real time PCR assay. The dynamic range for this assay is 1000-5,000,000 IU/mL. A result of <1000 IU/mL does not rule out the presence of EBV DNA in allyn ntities below the sensitivity of this assay. This test was developed and its performance characteristics determined by [facility]. It has not been cleared or approved by the FDA. The laboratory is regulated under CLIA as qualified to perform high-complexity testing. This test is used for clinical purposes. It should not be regarded as investigational or for research Performed By: #### CBCDFC, CHM7, CA, URICB, IPB, MGO, LDO, QIMM, HIV, HEP3B, B2M, SIMFXB, SPEB #### [place] [address] #### EBVPCR, CMVPCR #### [address] [address] QUANTITATIVE CMV BY PCR Collected: 07/08/2018 Status: F Source: [facility] 5:35 AM [facility] REPOSITORY TYPE CODE TESTS RESULT OUT OF REFERENCE UNITS RANGE LAB CMV1IU <50 IU/mL CMV by PCR, <50 IU/mL, plasma Result Comment: This test was performed using a real time CMV PCR assay. The dynamic range for this assay is 50-156,000,000 IU/mL. Results should be interpreted in conjunction with other clinical and laboratory findings. Performed By: #### CBCDFC, CHM7, CA, URICB, IPB, MGO, LDO, QIMM, HIV, HEP3B, B2M, SIMFXB, SPEB #### [facility] [address] [address] #### EBVPCR, CMVPCR #### [address] [address] *IMMUNOFIXATION,*SERUM Collected: Status: F Source: [facility] 07/08/2018 5:35 AM [facility] REPOSITORY TYPE CODE TESTS RESULT OUT OF RANGE REFERENCE UNITS LAB MPRO 0 mg/dL High *SERUM 40.5 *MONOCLONAL *PROTEIN Performed By: #### CBCDFC, CHM7, CA, URICB, IPB, MGO, LDO, QIMM, HIV, HEP3B, B2M, SIMFXB, SPEB #### [place] [address] #### EBVPCR, CMVPCR #### [address] [address] PROTEIN ELECTROPHORESIS Collected: 07/08/2018 Status: F Source: [facility] WITH REFLEX 5:35 AM [facility] REPOSITORY TYPE CODE TESTS RESULT OUT OF REFERENCE UNITS RANGE LAB TPE 6.4-8.3 g/dL Total Protein 4.5 Low LAB ALBNC 3.5-5.0 g/dL ALBUMIN 2.3 Low LAB ALPH1C 0.2-0.4 g/dL ALPHA 1 0.3 LAB ALPH2C 0.5-1.0 g/dL ALPHA 2 0.4 Low LAB BETAC 0.5-1.1 g/dL BETA 0.6 LAB GAMC 0.6-1.5 g/dL Gamma 0.9 LAB ISPE SPE Faint to INTERPRETATION moderate zone of restriction accompanied by polyclonal gamma. Result Comment: Alpha-2 is decreased. This may occur with low concentration of haptoglobin which may be due to liver disease or congenital deficiency. The albumin is decreased. This may occur in protein loss, malnutrition, liver disease, and (or) as an acute-phase reactant. LAB RB4 REVIEWED Alcinda BY: MD Addie Performed By: #### CBCDFC, CHM7, CA, URICB, IPB, MGO, LDO, QIMM, HIV, HEP3B, B2M, SIMFXB, SPEB #### [facility] [address] [place] [address] [facility] [address] [place] [address] #### EBVPCR, CMVPCR #### [address] [address] *POC GLUCOSE BATTERY Collected: 07/08/2018 Status: F Source: [facility] 1:28 AM [facility] REPOSITORY TYPE CODE TESTS RESULT OUT OF REFERENCE UNITS RANGE LAB GLUP 70-99 mg/dL High Glucose (poc 208 device) Result Comment: No BRAVE per RN: PATIENT TYPE LAB PCSTYP *POC Capillary SAMPLE TYPE Blood *POC GLUCOSE BATTERY Collected: 07/08/2018 Status: F Source: [facility] 12:45 AM [facility] REPOSITORY TYPE CODE TESTS RESULT OUT OF REFERENCE UNITS RANGE LAB GLUP 70-99 mg/dL High Glucose (poc 234 device) Result Comment: No BRAVE per RN: PATIENT TYPE LAB PCSTYP *POC Capillary SAMPLE TYPE Blood *POC GLUCOSE BATTERY Collected: 07/08/2018 Status: F Source: [facility] 12:02 AM [facility] REPOSITORY TYPE CODE TESTS RESULT OUT OF REFERENCE UNITS RANGE LAB GLUP 70-99 mg/dL High Glucose (poc 248 device) Result Comment: No BRAVE per RN: PATIENT TYPE LAB PCSTYP *POC Capillary SAMPLE TYPE Blood *POC GLUCOSE BATTERY Collected: 07/07/2018 Status: F Source: [facility] 9:33 PM [facility] REPOSITORY TYPE CODE TESTS RESULT OUT OF REFERENCE UNITS RANGE LAB GLUP 70-99 mg/dL High Glucose (poc 123 device) Result Comment: No BRAVE per RN: PATIENT TYPE LAB PCSTYP *POC Capillary SAMPLE TYPE Blood *POC GLUCOSE BATTERY Collected: 07/07/2018 Status: F Source: [facility] 5:50 PM [facility] REPOSITORY TYPE CODE TESTS RESULT OUT OF REFERENCE UNITS RANGE LAB GLUP 70-99 mg/dL Glucose (poc 86 device) Result Comment: No BRAVE per RN: PATIENT TYPE LAB PCSTYP *POC Capillary SAMPLE TYPE Blood *POC GLUCOSE BATTERY Collected: 07/07/2018 Status: F Source: [facility] 4:52 PM [facility] REPOSITORY TYPE CODE TESTS RESULT OUT OF REFERENCE UNITS RANGE LAB GLUP 70-99 mg/dL Glucose (poc 77 device) Result Comment: No BRAVE per RN: PATIENT TYPE LAB PCSTYP *POC Capillary SAMPLE TYPE Blood *POC GLUCOSE BATTERY Collected: 07/07/2018 Status: F Source: [facility] 4:50 PM [facility] REPOSITORY TYPE CODE TESTS RESULT OUT OF REFERENCE UNITS RANGE LAB GLUP 70-99 mg/dL Glucose (poc 75 device) Result Comment: No BRAVE per RN: PATIENT TYPE LAB PCSTYP *POC Capillary SAMPLE TYPE Blood *POC GLUCOSE BATTERY Collected: 07/07/2018 Status: F Source: [facility] 2:36 PM [facility] REPOSITORY TYPE CODE TESTS RESULT OUT OF REFERENCE UNITS RANGE LAB GLUP 70-99 mg/dL Glucose (poc 85 device) Result Comment: No BRAVE per RN: PATIENT TYPE LAB PCSTYP *POC Capillary SAMPLE TYPE Blood *POC GLUCOSE BATTERY Collected: 07/07/2018 Status: F Source: [facility] 11:57 AM [facility] REPOSITORY TYPE CODE TESTS RESULT OUT OF REFERENCE UNITS RANGE LAB GLUP 70-99 mg/dL High Glucose (poc 100 device) Result Comment: No BRAVE per RN: PATIENT TYPE LAB PCSTYP *POC Capillary SAMPLE TYPE Blood *POC GLUCOSE BATTERY Collected: 07/07/2018 Status: F Source: [facility] 8:25 AM [facility] REPOSITORY TYPE CODE TESTS RESULT OUT OF REFERENCE UNITS RANGE LAB GLUP 70-99 mg/dL High Glucose (poc 111 device) Result Comment: No BRAVE per RN: PATIENT TYPE LAB PCSTYP *POC Capillary SAMPLE TYPE Blood Observed: 07/07/2018 Status: F Source: [facility] TRANSFUSE PLATELETS 8:16 AM [facility] REPOSITORY CROSSMATCH EXPIRATION: 07/11/2018 UNIT NUMBER: [id number] BLOOD COMPONENT TYPE: Platelet Pheresis,Leukoreduced,[id number] STATUS OF UNIT: Issued, Final TRANSFUSION STATUS: OK TO TRANSFUSE Performed By: #### TPLT #### [facility] [address] [place] [id number] [place] [address] [place] [address] Observed: 07/07/2018 Status: F Source: [facility] TYPE AND CROSS 4:00 AM [facility] REPOSITORY ABO/RH(D): O POSITIVE ANTIBODY SCREEN: NEGATIVE UNIT NUMBER: [id number] BLOOD COMPONENT TYPE: Red Cell,Leukoreduced,[id number] STATUS OF UNIT: Issued, Final TRANSFUSION STATUS: OK TO TRANSFUSE CROSSMATCH RESULT: Electronically Compatible Performed By: #### XM #### [facility] [address] [place] [address] HEMOGRAM (CBC AND Collected: 07/07/2018 Status: F Source: [facility] PLATELET) 3:51 AM [facility] REPOSITORY TYPE CODE TESTS RESULT OUT OF REFERENCE UNITS RANGE LAB WBC 3.99-11.19 K/uL WBC Count 5.55 LAB RBC 3.91-5.04 M/uL Low RBC Count 2.71 LAB HGB 11.4-15.2 g/dL Low Hemoglobin 7.3 LAB HCT 34.9-44.3 % Low Hematocrit 22.8 LAB MCV 79.6-97.7 fL Mean Cell Volume 84.1 LAB MCH 25.9-33.9 pg Mean Cell Hgb 26.9 LAB MCHC 31.4-35.9 g/dL Mean Cell Hgb Conc 32.0 LAB RDW 10.8-14.9 % RBC High Distribution 18.1 LAB PLT 150-393 K/uL Low Platelet Count 48 LAB MPV 8.5-12.2 fL Mean Platelet Volume 9.4 LAB NRBC 0.0-0.2 /100 WBC NUCLEATED RBC 0.0 Performed By: #### HEMOGC, ESR, CHM6, CRP, MGO, PTI #### [facility] [address] [place] [address] ESR WESTERGREN Collected: 07/07/2018 Status: F Source: [facility] 3:51 AM [facility] REPOSITORY TYPE CODE TESTS RESULT OUT OF REFERENCE UNITS RANGE LAB ESR <30 mm/hr ESR Westergren 3 Performed By: #### HEMOGC, ESR, CHM6, CRP, MGO, PTI #### [facility] [address] [facility] [address] [place] [address] CHEM 6 Collected: 07/07/2018 Status: F Source: [facility] 3:51 AM [facility] REPOSITORY TYPE CODE TESTS RESULT OUT OF REFERENCE UNITS RANGE LAB BUN 7-22 mg/dL BUN 21 LAB NA 133-143 mmol/L Sodium 138 LAB K 3.5-5.0 mmol/L Potassium 4.1 LAB CL 98-108 mmol/L Chloride High 111 LAB CO2 22-30 mmol/L Low Carbon Dioxide 19 LAB CREA 0.50-1.20 mg/dL High Creatinine 1.61 LAB GAP 7-17 mmol/L Anion Gap 12 LAB BC BUN/CREA Ratio 13 LAB GFR >60 mL/min/1.73 Low sqM Est GFR,non 32 Estonian LAB GFRA >60 mL/min/1.73 Low sqM Est GFR, 39 Performed By: #### HEMOGC, ESR, CHM6, CRP, MGO, PTI #### [facility] [address] [place] [address] [place] [address] C REACTIVE PROTEIN Collected: 07/07/2018 Status: F Source: [facility] 3:51 AM [facility] REPOSITORY TYPE CODE TESTS RESULT OUT OF REFERENCE UNITS RANGE LAB CRP <10.00 mg/L C High Reactive 17.30 Protein Performed By: #### HEMOGC, ESR, CHM6, CRP, MGO, PTI #### [facility] [address] [place] [id number] [place] [address] [place] [address] MAGNESIUM Collected: 07/07/2018 Status: F Source: [facility] 3:51 AM [facility] REPOSITORY TYPE CODE TESTS RESULT OUT OF REFERENCE UNITS RANGE LAB MG 1.6-2.6 mg/dL Magnesium 1.9 Performed By: #### HEMOGC, ESR, CHM6, CRP, MGO, PTI #### [facility] [address] [place] [address] [facility] [address] [place] [address] PT/INR BATTERY Collected: 07/07/2018 Status: F Source: [facility] 3:51 AM [facility] REPOSITORY TYPE CODE TESTS RESULT OUT OF RANGE REFERENCE UNITS LAB PT 11.9-14.2 sec High PT 17.1 LAB INR 0.9-1.1 High INR 1.4 Performed By: #### HEMOGC, ESR, CHM6, CRP, MGO, PTI #### [facility] [address] [place], [place] [id number] [place] [address] [address] [place] [address] *POC GLUCOSE BATTERY Collected: 07/06/2018 Status: F Source: [facility] 11:37 PM [facility] REPOSITORY TYPE CODE TESTS RESULT OUT OF REFERENCE UNITS RANGE LAB GLUP 70-99 mg/dL High Glucose (poc 162 device) Result Comment: No BRAVE per RN: PATIENT TYPE LAB PCSTYP *POC Capillary SAMPLE TYPE Blood *POC GLUCOSE BATTERY Collected: 07/06/2018 Status: F Source: [facility] 8:56 PM [facility] REPOSITORY TYPE CODE TESTS RESULT OUT OF REFERENCE UNITS RANGE LAB GLUP 70-99 mg/dL High Glucose (poc 154 device) Result Comment: No BRAVE per RN: PATIENT TYPE LAB PCSTYP *POC Capillary SAMPLE TYPE Blood ECHOCARDIOGRAM Observed: 07/06/2018 Status: F Source: [facility] 6:01 PM [facility] REPOSITORY ? Echo is negative for vegetation or valve dysfunction to suggest endocarditis. ? Left ventricle is normal in size with mild concentric hypertrophy. Normal segmental wall motion and global systolic function. Ejection fraction 59% ? Left atrium is mild to moderately enlarged. ? Right atrium and ventricle are normal in size. Ventricular function is normal. Pulmonary artery systolic pressure estimated at +/- 40mmHg ? Aortic valve is trileaflet with no regurgitation nor stenosis ? Mitral valve is normal in structure for age. Trace regurgitation ? Tricuspid valve is normal in structure. Mild regurgitation ? Pericardium is normal, no effusion ? Aorta is normal in size to extent seen *POC GLUCOSE BATTERY Collected: 07/06/2018 Status: F Source: [facility] 5:35 PM [facility] REPOSITORY TYPE CODE TESTS RESULT OUT OF REFERENCE UNITS RANGE LAB GLUP 70-99 mg/dL High Glucose (poc 133 device) Result Comment: No BRAVE per RN: PATIENT TYPE LAB PCSTYP *POC Capillary SAMPLE TYPE Blood *B-NHL*FISH Observed: 07/06/2018 Status: F Source: [facility] (*BCL2*BCL6MYC) - MARA 12:04 PM [facility] REPOSITORY NOT DETECTED NOT DETECTED NOT DETECTED No rearrangements of the BCL2, BCL6 or MYC genes are detected by FISH. The clinical relevance of this result should be interpreted in the context of the tissue morphology and immunophenotyping. Fransico Jackson MD,PhD LIVER MASS, NEEDLE CORE BIOPSY [id number] Result Comment: BLOCK A1 Performed By: #### BHGFI #### [facility] [address] [place] [address] [facility] [address] [place] [address] *POC GLUCOSE BATTERY Collected: 07/06/2018 Status: F Source: [facility] 11:35 AM [facility] REPOSITORY TYPE CODE TESTS RESULT OUT OF REFERENCE UNITS RANGE LAB GLUP 70-99 mg/dL High Glucose (poc 149 device) Result Comment: No BRAVE per RN: PATIENT TYPE LAB PCSTYP *POC Capillary SAMPLE TYPE Blood *POC GLUCOSE BATTERY Collected: 07/06/2018 Status: F Source: [facility] 7:46 AM [facility] REPOSITORY TYPE CODE TESTS RESULT OUT OF REFERENCE UNITS RANGE LAB GLUP 70-99 mg/dL High Glucose (poc 121 device) Result Comment: No BRAVE per RN: PATIENT TYPE LAB PCSTYP *POC Capillary SAMPLE TYPE Blood HEMOGRAM (CBC AND Collected: 07/06/2018 Status: F Source: [facility] PLATELET) 2:53 AM [facility] REPOSITORY TYPE CODE TESTS RESULT OUT OF REFERENCE UNITS RANGE LAB WBC 3.99-11.19 K/uL WBC Count 6.80 LAB RBC 3.91-5.04 M/uL Low RBC Count 3.26 LAB HGB 11.4-15.2 g/dL Low Hemoglobin 8.9 LAB HCT 34.9-44.3 % Low Hematocrit 27.8 LAB MCV 79.6-97.7 fL Mean Cell Volume 85.3 LAB MCH 25.9-33.9 pg Mean Cell Hgb 27.3 LAB MCHC 31.4-35.9 g/dL Mean Cell Hgb Conc 32.0 LAB RDW 10.8-14.9 % RBC High Distribution 18.2 LAB PLT 150-393 K/uL Low Platelet Count 59 LAB MPV 8.5-12.2 fL Mean Platelet Volume 9.4 LAB NRBC 0.0-0.2 /100 WBC NUCLEATED RBC 0.0 Performed By: #### HEMOGC, CHM6, MGO #### [facility] [address] [place] [id number] [place] [address] [place] [address] CHEM 6 Collected: 07/06/2018 Status: F Source: [facility] 2:53 AM [facility] REPOSITORY TYPE CODE TESTS RESULT OUT OF REFERENCE UNITS RANGE LAB BUN 7-22 mg/dL BUN 20 LAB NA 133-143 mmol/L Sodium 139 LAB K 3.5-5.0 mmol/L Potassium 4.2 LAB CL 98-108 mmol/L Chloride High 111 LAB CO2 22-30 mmol/L Low Carbon Dioxide 19 LAB CREA 0.50-1.20 mg/dL High Creatinine 1.60 LAB GAP 7-17 mmol/L Anion Gap 13 LAB BC BUN/CREA Ratio 13 LAB GFR >60 mL/min/1.73 Low sqM Est GFR,non 32 Estonian LAB GFRA >60 mL/min/1.73 Low sqM Est GFR, 39 Performed By: #### HEMANDREWC, DERRELLM6, MGO #### [facility] [address] [place] [address] [place] [address] MAGNESIUM Collected: 07/06/2018 Status: F Source: [facility] 2:53 [facility] REPOSITORY TYPE CODE TESTS RESULT OUT OF REFERENCE UNITS RANGE LAB MG 1.6-2.6 mg/dL Magnesium 2.0 Performed By: #### HEMOGC, CHM6, MGO #### [facility] [address] [place] [address] [place] [address] BARTONELLA, DNA, PCR Collected: 07/06/2018 Status: F Source: [facility] 2:53 [facility] REPOSITORY TYPE CODE TESTS RESULT OUT OF REFERENCE UNITS RANGE LAB BRSOUR BR Source BLOOD, PERIPHERAL: LAB BARRP See below Bartonella, DNA, PCR Result Comment: (NOTE) TESTS RESULTS--------UNITS--REF. RANGE--- Source WHOLE BLOOD BARTONELLA HENSELAE DNA NOT DETECTED BARTONELLA CAM DNA NOT DETECTED REFERENCE RANGE: NOT DETECTED This test was developed and its analytical performance characteristics have been determined by [facility]. It has not been cleared or approved by FDA. This assay has been validated pursuant to the CLIA regulations and is used for clinical purposes. Results Received 07/10/18 Reference lab accession: [id number] Test performed by [facility], [address] [place] [address] Blanker Press Operator: Nima Alfonso MD Test Rep[facility] by [facility], [facility], [address] [place] [address] Colin Fleming M.D., Ph.D., Director of Laboratories , CLIA [id number] Reported by [facility] Performed By: #### YBARRP #### Reference lab information reported with result *POC GLUCOSE BATTERY Collected: 07/05/2018 Status: F Source: [facility] 8:51 PM [place] [facility] REPOSITORY TYPE CODE TESTS RESULT OUT OF REFERENCE UNITS RANGE LAB GLUP 70-99 mg/dL High Glucose (poc 198 device) Result Comment: No BRAVE per RN: PATIENT TYPE LAB PCSTYP *POC Capillary SAMPLE TYPE Blood URIC ACID Collected: 07/05/2018 Status: F Source: [facility] 8:36 PM [facility] REPOSITORY TYPE CODE TESTS RESULT OUT OF RANGE REFERENCE UNITS LAB URIC 2.8-6.0 mg/dL Uric Acid 5.4 Performed By: #### URICB #### [facility] [address] [place] [address] [place] [address] XR ANKLE RIGHT 3+ Observed: 07/05/2018 Status: F Source: [facility] VIEWS 6:10 PM [facility] REPOSITORY EXAM: XR ANKLE RIGHT 3 VIEWS, 07/05/2018 17:45 PM COMPARISON: No prior studies available for comparison. CLINICAL INDICATIONS: right ankle (near tibia/talus) sharp pain, pain is worse with right foot plantar flexion. Please evaluate for injury FINDINGS: 3 nonweight-bearing images obtained. Effusion: There is no joint effusion. Soft Tissue: Mild soft tissue swelling laterally. Bone: The distal tibia and fibula appear intact. The syndesmosis is anatomically aligned. Talar dome is intact. Calcaneal enthesopathy at the insertions of the plantar fascia and Achilles tendon. Joint: Joint spaces are grossly intact. IMPRESSION: Mild soft tissue swelling laterally. No acute osseous abnormality. *POC GLUCOSE BATTERY Collected: 07/05/2018 Status: F Source: [facility] 5:54 PM [facility] REPOSITORY TYPE CODE TESTS RESULT OUT OF REFERENCE UNITS RANGE LAB GLUP 70-99 mg/dL High Glucose (poc 175 device) Result Comment: No BRAVE per RN: PATIENT TYPE LAB PCSTYP *POC Capillary SAMPLE TYPE Blood *POC GLUCOSE BATTERY Collected: 07/05/2018 Status: F Source: [facility] 11:22 AM [facility] REPOSITORY TYPE CODE TESTS RESULT OUT OF REFERENCE UNITS RANGE LAB GLUP 70-99 mg/dL High Glucose (poc 219 device) Result Comment: No BRAVE per RN: PATIENT TYPE LAB PCSTYP *POC Capillary SAMPLE TYPE Blood *POC GLUCOSE BATTERY Collected: 07/05/2018 Status: F Source: [facility] 7:44 AM [facility] REPOSITORY TYPE CODE TESTS RESULT OUT OF REFERENCE UNITS RANGE LAB GLUP 70-99 mg/dL Glucose (poc 98 device) Result Comment: No BRAVE per RN: PATIENT TYPE LAB PCSTYP *POC Capillary SAMPLE TYPE Blood HEMOGRAM (CBC AND Collected: 07/05/2018 Status: F Source: [facility] PLATELET) 2:44 AM [facility] REPOSITORY TYPE CODE TESTS RESULT OUT OF REFERENCE UNITS RANGE LAB WBC 3.99-11.19 K/uL WBC Count 4.55 LAB RBC 3.91-5.04 M/uL Low RBC Count 2.98 LAB HGB 11.4-15.2 g/dL Low Hemoglobin 8.2 LAB HCT 34.9-44.3 % Low Hematocrit 25.6 LAB MCV 79.6-97.7 fL Mean Cell Volume 85.9 LAB MCH 25.9-33.9 pg Mean Cell Hgb 27.5 LAB MCHC 31.4-35.9 g/dL Mean Cell Hgb Conc 32.0 LAB RDW 10.8-14.9 % RBC High Distribution 18.1 LAB PLT 150-393 K/uL Low Platelet Count 52 LAB MPV 8.5-12.2 fL Mean Platelet Volume 9.7 LAB NRBC 0.0-0.2 /100 WBC NUCLEATED RBC 0.0 Performed By: #### HEMPATI, CHM6 #### [facility] [address] [place] [id number] [place] [address] [place] [address] CHEM 6 Collected: 07/05/2018 Status: F Source: [facility] 2:44 AM [facility] REPOSITORY TYPE CODE TESTS RESULT OUT OF REFERENCE UNITS RANGE LAB BUN 7-22 mg/dL BUN 22 LAB NA 133-143 mmol/L Sodium 140 LAB K 3.5-5.0 mmol/L Potassium 3.9 LAB CL 98-108 mmol/L Chloride High 113 LAB CO2 22-30 mmol/L Low Carbon Dioxide 20 LAB CREA 0.50-1.20 mg/dL High Creatinine 1.62 LAB GAP 7-17 mmol/L Anion Gap 11 LAB BC BUN/CREA Ratio 14 LAB GFR >60 mL/min/1.73 Low sqM Est GFR,non 32 Estonian LAB GFRA >60 mL/min/1.73 Low sqM Est GFR, 39 Performed By: #### HEMPATI, CHM6 #### [facility] [address] [place] [id number] [place] [address] [place] [address] *POC GLUCOSE BATTERY Collected: 07/04/2018 Status: F Source: [facility] 9:13 PM [facility] REPOSITORY TYPE CODE TESTS RESULT OUT OF REFERENCE UNITS RANGE LAB GLUP 70-99 mg/dL High Glucose (poc 241 device) Result Comment: No BRAVE per RN: PATIENT TYPE LAB PCSTYP *POC Capillary SAMPLE TYPE Blood *POC GLUCOSE BATTERY Collected: 07/04/2018 Status: F Source: [facility] 4:17 PM [facility] REPOSITORY TYPE CODE TESTS RESULT OUT OF REFERENCE UNITS RANGE LAB GLUP 70-99 mg/dL High Glucose (poc 193 device) Result Comment: Notified RNread back No BRAVE per RN: PATIENT TYPE LAB PCSTYP *POC Capillary SAMPLE TYPE Blood *POC GLUCOSE BATTERY Collected: 07/04/2018 Status: F Source: [facility] 11:46 AM [facility] REPOSITORY TYPE CODE TESTS RESULT OUT OF REFERENCE UNITS RANGE LAB GLUP 70-99 mg/dL High Glucose (poc 205 device) Result Comment: Notified RNread back No BRAVE per RN: PATIENT TYPE LAB PCSTYP *POC Capillary SAMPLE TYPE Blood *POC GLUCOSE BATTERY Collected: 07/04/2018 Status: F Source: [facility] 7:46 AM [facility] REPOSITORY TYPE CODE TESTS RESULT OUT OF REFERENCE UNITS RANGE LAB GLUP 70-99 mg/dL Glucose (poc 81 device) Result Comment: Notified RNread back No BRAVE per RN: PATIENT TYPE LAB PCSTYP *POC Capillary SAMPLE TYPE Blood HEMOGRAM (CBC AND Collected: 07/04/2018 Status: F Source: [facility] PLATELET) 2:09 AM [facility] REPOSITORY TYPE CODE TESTS RESULT OUT OF REFERENCE UNITS RANGE LAB WBC 3.99-11.19 K/uL WBC Count 5.37 LAB RBC 3.91-5.04 M/uL Low RBC Count 3.05 LAB HGB 11.4-15.2 g/dL Low Hemoglobin 8.3 LAB HCT 34.9-44.3 % Low Hematocrit 26.0 LAB MCV 79.6-97.7 fL Mean Cell Volume 85.2 LAB MCH 25.9-33.9 pg Mean Cell Hgb 27.2 LAB MCHC 31.4-35.9 g/dL Mean Cell Hgb Conc 31.9 LAB RDW 10.8-14.9 % RBC High Distribution 18.0 LAB PLT 150-393 K/uL Low Platelet Count 57 LAB MPV 8.5-12.2 fL Mean Platelet Volume 9.1 LAB NRBC 0.0-0.2 /100 WBC NUCLEATED RBC 0.0 Performed By: #### HEMOGC, CHM6, HFP #### [facility] [address] [place] [address] [place] [address] CHEM 6 Collected: 07/04/2018 Status: F Source: [facility] 2:09 AM [facility] REPOSITORY TYPE CODE TESTS RESULT OUT OF REFERENCE UNITS RANGE LAB BUN 7-22 mg/dL BUN High 25 LAB NA 133-143 mmol/L Sodium 140 LAB K 3.5-5.0 mmol/L Potassium 3.9 LAB CL 98-108 mmol/L Chloride High 113 LAB CO2 22-30 mmol/L Low Carbon Dioxide 18 LAB CREA 0.50-1.20 mg/dL High Creatinine 1.51 LAB GAP 7-17 mmol/L Anion Gap 13 LAB BC BUN/CREA Ratio 17 LAB GFR >60 mL/min/1.73 Low sqM Est GFR,non 35 Estonian LAB GFRA >60 mL/min/1.73 Low sqM Est GFR, 42 Performed By: #### HEMOGC, CHM6, [facility] #### [facility] [address] [place] [address] HEPATIC FUNCTION Collected: 07/04/2018 Status: F Source: [facility] 2:09 AM [facility] REPOSITORY TYPE CODE TESTS RESULT OUT OF REFERENCE UNITS RANGE LAB ALB 3.5-5.0 g/dL Low Albumin 2.3 LAB BILD <0.3 mg/dL Bilirubin High Direct 0.6 LAB BILT <1.5 mg/dL Bilirubin High Total 1.6 LAB ALP 32-126 U/L Alkaline Phosphatase 112 LAB ALT 9-48 U/L ALT 13 LAB AST 14-40 U/L AST 26 LAB TP 6.4-8.3 g/dL Low Total Protein 4.7 Performed By: #### HEMOGC, M6, [facility] #### [place] [address] BARTONELLA, DNA, PCR Collected: 07/04/2018 Status: F Source: [facility] 2:09 AM [facility] REPOSITORY TYPE CODE TESTS RESULT OUT OF REFERENCE UNITS RANGE LAB BRSOUR BR Source BLOOD, PERIPHERAL: LAB BARRP See below Bartonella, DNA, PCR Result Comment: (NOTE) TESTS RESULTS--------UNITS--REF. RANGE--- Source WHOLE BLOOD BARTONELLA HENSELAE DNA NOT DETECTED BARTONELLA CAM DNA NOT DETECTED REFERENCE RANGE: NOT DETECTED This test was developed and its analytical performance characteristics have been determined by [facility]. It has not been cleared or approved by FDA. This assay has been validated pursuant to the CLIA regulations and is used for clinical purposes. Results Received 07/09/18 Reference lab accession: [id number] Test performed by [facility], [address] [place] [address] Blanker Press Operator: Nima Alfonso MD Test Reported by [facility], [facility], [address] [place] [address] Colin Fleming M.D., Ph.D., Director of Laboratories , CLIA [id number] Reported by [facility] Performed By: #### YBARRP #### Reference lab information reported with result *POC GLUCOSE BATTERY Collected: 07/03/2018 Status: F Source: [facility] 9:07 PM [facility] REPOSITORY TYPE CODE TESTS RESULT OUT OF REFERENCE UNITS RANGE LAB GLUP 70-99 mg/dL High Glucose (poc 228 device) Result Comment: No BRAVE per RN: PATIENT TYPE LAB PCSTYP *POC Capillary SAMPLE TYPE Blood HGB & HCT Collected: 07/03/2018 Status: F Source: [facility] 5:41 PM [facility] REPOSITORY TYPE CODE TESTS RESULT OUT OF REFERENCE UNITS RANGE LAB HGB 11.4-15.2 g/dL Low Hemoglobin 9.3 LAB HCT 34.9-44.3 % Low Hematocrit 28.1 Performed By: #### HH #### [facility] [place] [address] [place] [address] [place] [address] *POC GLUCOSE BATTERY Collected: 07/03/2018 Status: F Source: [facility] 4:58 PM [facility] REPOSITORY TYPE CODE TESTS RESULT OUT OF REFERENCE UNITS RANGE LAB GLUP 70-99 mg/dL High Glucose (poc 206 device) Result Comment: No BRAVE per RN: PATIENT TYPE LAB PCSTYP *POC Capillary SAMPLE TYPE Blood US RENAL Observed: 07/03/2018 Status: F Source: [facility] 11:58 AM [facility] REPOSITORY EXAM: US RENAL, 07/03/2018 11:30 AM CLINICAL INDICATIONS: LIZ COMPARISON: CT abdomen pelvis without contrast 06/27/2018 TECHNIQUE: Multiple longitudinal and transverse real-time grayscale images of both kidneys were obtained. Color-flow Doppler images were also obtained. FINDINGS: Right Kidney: The right kidney measures 10.6 cm in length, which is within normal limits for the patient's age. Renal cortical thickness and echogenicity are within normal limits. Renal Pelvis: There is no hydronephrosis. No obvious renal calculi. Left Kidney: The left kidney measures 11.4 cm in length, which is within normal limits for the patient's age. Renal cortical thickness and echogenicity are within normal limits. Renal Pelvis: There is no hydronephrosis. No obvious renal calculi. Bladder: Groves catheter in the bladder. Other: Liver appears enlarged, coarsened and heterogeneous with increased echogenicity consistent with cirrhotic appearance on CT. Ascites and splenomegaly also noted. IMPRESSION: 1. Normal sonographic appearance of kidneys without hydronephrosis. 2. Cirrhosis with ascites and splenomegaly. *POC GLUCOSE BATTERY Collected: 07/03/2018 Status: F Source: [facility] 11:42 AM [facility] REPOSITORY TYPE CODE TESTS RESULT OUT OF REFERENCE UNITS RANGE LAB GLUP 70-99 mg/dL High Glucose (poc 182 device) Result Comment: No BRAVE per RN: PATIENT TYPE LAB PCSTYP *POC Capillary SAMPLE TYPE Blood CREATININE, URINE - Collected: 07/03/2018 Status: F Source: [facility] RANDOM 7:47 AM [facility] REPOSITORY TYPE CODE TESTS RESULT OUT OF RANGE REFERENCE UNITS LAB CREU1 mg/dL 10.00 Creatinine, urine mg/dL Result Comment: The reference range has not been established for random urine specimens. The test result should be integrated into the clinical context for interpretation. Performed By: #### UCRER, ULYTR #### [facility] [address] [place] [address] [place] [address] LYTES (NA,K,CL), URINE Collected: 07/03/2018 Status: F Source: [facility] 7:47 AM [facility] REPOSITORY TYPE CODE TESTS RESULT OUT OF REFERENCE UNITS RANGE LAB NAU1 mmol/L URINE SODIUM 133 Result Comment: The reference range has not been established for random urine specimens. The test result should be integrated into the clinical context for interpretation. LAB KU1 mmol/L URINE POTASSIUM 3.2 Result Comment: The reference range has not been established for random urine specimens. The test result should be integrated into the clinical context for interpretation. LAB CLU1 mmol/L URINE CHLORIDE 134 Result Comment: The reference range has not been established for random urine specimens. The test result should be integrated into the clinical context for interpretation. Performed By: #### UCRER, ULYTR #### [facility] [address] [place] [id number] [place] [address] [address] [place] [address] *POC GLUCOSE BATTERY Collected: 07/03/2018 Status: F Source: [facility] 7:43 AM [facility] REPOSITORY TYPE CODE TESTS RESULT OUT OF REFERENCE UNITS RANGE LAB GLUP 70-99 mg/dL High Glucose (poc 103 device) Result Comment: No BRAVE per RN: PATIENT TYPE LAB PCSTYP *POC Capillary SAMPLE TYPE Blood CBC,PLATELET,DIFFERENTIAL - CCL Collected: Status: F Source: [facility] 07/03/2018 5:51 AM [facility] REPOSITORY TYPE CODE TESTS RESULT OUT OF REFERENCE UNITS RANGE LAB WBC 3.99-11.19 K/uL WBC Count 5.33 LAB RBC 3.91-5.04 M/uL RBC Count 3.09 Low LAB HGB 11.4-15.2 g/dL Hemoglobin 8.5 Low LAB HCT 34.9-44.3 % Hematocrit 26.3 Low LAB MCV 79.6-97.7 fL Mean Cell 85.1 Volume LAB MCH 25.9-33.9 pg Mean Cell 27.5 Hgb LAB MCHC 31.4-35.9 g/dL Mean Cell 32.3 Hgb Conc LAB RDW 10.8-14.9 % RBC 18.3 High Distribution LAB PLT 150-393 K/uL Platelet 52 Low Count LAB MPV 8.5-12.2 fL Mean 9.9 Platelet Volume LAB NRBC 0.0-0.2 /100 WBC NUCLEATED 0.0 RBC LAB DTYPE Electronic DIFFERENTIAL TYPE Differential LAB IGRE % IMMATURE 0.6 GRANS % LAB SEGS % NEUTROPHIL 65.4 SEGMENTED LAB LYM % LYMPHOCYTE 16.5 % LAB MON % MONOCYTE % 7.9 LAB EOS % *EOSINOPHIL 8.8 % LAB BASO % BASOPHIL % 0.8 LAB IGABS 0.00-0.08 K/uL IMMATURE <0.04 GRANS ABSOLUTE LAB SBANS 1.64-7.28 K/uL SEGS + 3.49 Bands,Absolute LAB ALYM 1.16-3.51 K/uL Abs Lymph 0.88 Low LAB AMONO 0.22-0.87 K/uL Abs Laurel 0.42 LAB AEOS 0.00-0.42 K/uL Abs Eos 0.47 High LAB ABASO 0.00-0.15 K/uL Abs Baso 0.04 Performed By: #### ELIJAH, [facility] #### [facility] [address] [place] [address] [place] [address] CHEM 6 Collected: 07/03/2018 Status: F Source: [facility] 5:51 AM [facility] REPOSITORY TYPE CODE TESTS RESULT OUT OF REFERENCE UNITS RANGE LAB BUN 7-22 mg/dL BUN High 26 LAB NA 133-143 mmol/L Sodium 139 LAB K 3.5-5.0 mmol/L Potassium 3.9 LAB CL 98-108 mmol/L Chloride High 114 LAB CO2 22-30 mmol/L Low Carbon Dioxide 18 LAB CREA 0.50-1.20 mg/dL High Creatinine 1.44 LAB GAP 7-17 mmol/L Anion Gap 11 LAB BC BUN/CREA Ratio 18 LAB GFR >60 mL/min/1.73 Low sqM Est GFR,non 37 Estonian LAB GFRA >60 mL/min/1.73 Low sqM Est GFR, 44 Performed By: #### CBCHIEN, CHM6 #### [facility] [address] [place] [address] [place] [address] HGB & HCT Collected: 07/02/2018 Status: F Source: [facility] 10:14 PM [facility] REPOSITORY TYPE CODE TESTS RESULT OUT OF REFERENCE UNITS RANGE LAB HGB 11.4-15.2 g/dL Low Hemoglobin 8.3 LAB HCT 34.9-44.3 % Low Hematocrit 25.6 Performed By: #### HH #### [facility] [address] [place] [address] [facility] [address] [place] [address] *POC GLUCOSE BATTERY Collected: 07/02/2018 Status: F Source: [facility] 9:34 PM [facility] REPOSITORY TYPE CODE TESTS RESULT OUT OF REFERENCE UNITS RANGE LAB GLUP 70-99 mg/dL High Glucose (poc 136 device) Result Comment: No BRAVE per RN: PATIENT TYPE LAB PCSTYP *POC Capillary SAMPLE TYPE Blood VANCOMYCIN, TROUGH Collected: 07/02/2018 Status: F Source: [facility] 7:39 PM [facility] REPOSITORY TYPE CODE TESTS RESULT OUT OF REFERENCE UNITS RANGE LAB VANCTR 10.0-20.0 mcg/mL 11.0 Vancomycin, Trough Performed By: #### VANCTR #### [facility] [address] [place] [address] [place] [address] *POC GLUCOSE BATTERY Collected: 07/02/2018 Status: F Source: [facility] 4:26 PM [facility] REPOSITORY TYPE CODE TESTS RESULT OUT OF REFERENCE UNITS RANGE LAB GLUP 70-99 mg/dL High Glucose (poc 168 device) Result Comment: No BRAVE per RN: PATIENT TYPE LAB PCSTYP *POC Capillary SAMPLE TYPE Blood HGB & HCT Collected: 07/02/2018 Status: F Source: [facility] 1:57 PM [facility] REPOSITORY TYPE CODE TESTS RESULT OUT OF REFERENCE UNITS RANGE LAB HGB 11.4-15.2 g/dL Low Hemoglobin 9.1 LAB HCT 34.9-44.3 % Low Hematocrit 28.2 Performed By: #### HH #### [facility] [address] [place] [address] [place] [address] *POC GLUCOSE BATTERY Collected: 07/02/2018 Status: F Source: [facility] 10:56 AM [facility] REPOSITORY TYPE CODE TESTS RESULT OUT OF REFERENCE UNITS RANGE LAB GLUP 70-99 mg/dL High Glucose (poc 176 device) Result Comment: Notified RNread back No BRAVE per RN: PATIENT TYPE LAB PCSTYP *POC Capillary SAMPLE TYPE Blood SURG PATH ADD-ON Observed: 07/02/2018 Status: F Source: [facility] ORDER 7:59 AM [facility] REPOSITORY Test will be added on to an earlier surg path specimen Tissue has been submitted to testing laboratory. Performed By: #### SPAOB #### [facility] [address] [place], [place] [id number] [place] [address] [address] [place] [address] *POC GLUCOSE BATTERY Collected: 07/02/2018 Status: F Source: [facility] 7:23 AM [facility] REPOSITORY TYPE CODE TESTS RESULT OUT OF REFERENCE UNITS RANGE LAB GLUP 70-99 mg/dL High Glucose (poc 104 device) Result Comment: No BRAVE per RN: PATIENT TYPE LAB PCSTYP *POC Capillary SAMPLE TYPE Blood CBC,PLATELET,DIFFERENTIAL - CCL Collected: Status: F Source: [facility] 07/02/2018 5:55 AM [facility] REPOSITORY TYPE CODE TESTS RESULT OUT OF REFERENCE UNITS RANGE LAB WBC 3.99-11.19 K/uL WBC Count 5.45 LAB RBC 3.91-5.04 M/uL RBC Count 3.09 Low LAB HGB 11.4-15.2 g/dL Hemoglobin 8.4 Low LAB HCT 34.9-44.3 % Hematocrit 26.1 Low LAB MCV 79.6-97.7 fL Mean Cell 84.5 Volume LAB MCH 25.9-33.9 pg Mean Cell 27.2 Hgb LAB MCHC 31.4-35.9 g/dL Mean Cell 32.2 Hgb Conc LAB RDW 10.8-14.9 % RBC 17.7 High Distribution LAB PLT 150-393 K/uL Platelet 60 Low Count LAB MPV 8.5-12.2 fL Mean 10.3 Platelet Volume LAB NRBC 0.0-0.2 /100 WBC NUCLEATED 0.0 RBC LAB DTYPE Electronic DIFFERENTIAL TYPE Differential LAB IGRE % IMMATURE 0.7 GRANS % LAB SEGS % NEUTROPHIL 67.4 SEGMENTED LAB LYM % LYMPHOCYTE 14.1 % LAB MON % MONOCYTE % 9.0 LAB EOS % *EOSINOPHIL 8.1 % LAB BASO % BASOPHIL % 0.7 LAB IGABS 0.00-0.08 K/uL IMMATURE 0.04 GRANS ABSOLUTE LAB SBANS 1.64-7.28 K/uL SEGS + 3.67 Bands,Absolute LAB ALYM 1.16-3.51 K/uL Abs Lymph 0.77 Low LAB AMONO 0.22-0.87 K/uL Abs Laurel 0.49 LAB AEOS 0.00-0.42 K/uL Abs Eos 0.44 High LAB ABASO 0.00-0.15 K/uL Abs Baso 0.04 Performed By: #### ELIJAH, M6 #### [facility] [address] [place] [address] #### YCAT #### Reference lab information reported with result CHEM 6 Collected: 07/02/2018 Status: F Source: [facility] 5:55 AM [facility] REPOSITORY TYPE CODE TESTS RESULT OUT OF REFERENCE UNITS RANGE LAB BUN 7-22 mg/dL BUN High 30 LAB NA 133-143 mmol/L Sodium 138 LAB K 3.5-5.0 mmol/L Potassium 4.0 LAB CL 98-108 mmol/L Chloride High 112 LAB CO2 22-30 mmol/L Low Carbon Dioxide 18 LAB CREA 0.50-1.20 mg/dL High Creatinine 1.36 LAB GAP 7-17 mmol/L Anion Gap 12 LAB BC BUN/CREA Ratio 22 LAB GFR >60 mL/min/1.73 Low sqM Est GFR,non 39 Estonian LAB GFRA >60 mL/min/1.73 Low sqM Est GFR, 47 Performed By: #### ELIJAH, [facility] #### [place] [address] #### YCAT #### Reference lab information reported with result BARTONELLA AB PANEL Collected: 07/02/2018 Status: F Source: [facility] 5:55 AM [facility] REPOSITORY TYPE CODE TESTS RESULT OUT OF REFERENCE UNITS RANGE LAB BARTHG <1:128 titer Juventino Henselae <1:128 IgG LAB BARTHM <1:20 titer Juventino Henselae <1:20 IgM LAB BARTQG <1:128 titer Juventino Cam <1:128 IgG LAB BARTQM <1:20 titer Juventino Cam <1:20 IgM Result Comment: (NOTE) ADDITIONAL INFORMATION This test was developed and its performance characteristics determined by [facility] in a manner consistent with CLIA requirements. This test has not been cleared or approved by the U.S. Food and Drug Administration. Test performed by [facility] Dpt of Lab & Pathology [facility] Performed By: #### CBCDFC, CH6 #### [facility] [id number] [place] [address] [place] [address] #### YCAT #### Reference lab information reported with result HGB & HCT Collected: 07/01/2018 Status: F Source: [facility] 11:42 PM [facility] REPOSITORY TYPE CODE TESTS RESULT OUT OF REFERENCE UNITS RANGE LAB HGB 11.4-15.2 g/dL Low Hemoglobin 8.8 LAB HCT 34.9-44.3 % Low Hematocrit 25.8 Performed By: #### HH #### [facility] [address] [place] [id number] [place] [address] [place] [address] *POC GLUCOSE BATTERY Collected: 07/01/2018 Status: F Source: [facility] 8:54 PM [facility] REPOSITORY TYPE CODE TESTS RESULT OUT OF REFERENCE UNITS RANGE LAB GLUP 70-99 mg/dL High Glucose (poc 199 device) Result Comment: No BRAVE per RN: PATIENT TYPE LAB PCSTYP *POC Capillary SAMPLE TYPE Blood *POC GLUCOSE BATTERY Collected: 07/01/2018 Status: F Source: [facility] 5:58 PM [facility] REPOSITORY TYPE CODE TESTS RESULT OUT OF REFERENCE UNITS RANGE LAB GLUP 70-99 mg/dL High Glucose (poc 104 device) Result Comment: No BRAVE per RN: PATIENT TYPE LAB PCSTYP *POC Capillary SAMPLE TYPE Blood HGB & HCT Collected: 07/01/2018 Status: F Source: [facility] 5:49 PM [facility] REPOSITORY TYPE CODE TESTS RESULT OUT OF REFERENCE UNITS RANGE LAB HGB 11.4-15.2 g/dL Low Hemoglobin 8.8 LAB HCT 34.9-44.3 % Low Hematocrit 27.0 Performed By: #### HH #### [facility] [address] [place] [address] [facility] [address] [place] [id number] US HEPATIC MASS Observed: 07/01/2018 Status: F Source: [facility] BIOPSY 5:00 PM [facility] REPOSITORY EXAM: BIR US HEPATIC MASS BIOPSY, 07/01/2018 15:59 PM CLINICAL INDICATIONS: 63 y.o. with RYAN cirrhosis, urothelial cancer and new liver lesions concerning for mets, admitted for hematuria. Please assist with liver biopsy COMPARISON: CT of the abdomen/pelvis, 06/27/2018. OPERATORS: Susy Kimble MD and Radames Roland MD PROCEDURE/TECHNIQUE: Consent: Written, informed consent was obtained after explaining the procedure to the patient, including benefits and risks, and answering the patient's questions. Moderate Sedation: I performed Moderate Sedation which included the presence of a nurse that assisted in monitoring the patients level of consciousness and physiological status. After administration of Intravenous Fentanyl and Versed, I spent 30 minutes of continuous [id number] time with the patient. Position: The patient was placed in the supine position. Real time US guidance was used to locate the liver lesion and the skin dong was placed. Preparation: Time out was performed. The patient was then prepped and draped in sterile fashion. Local anesthesia was provided using 2% Lidocaine. Procedure: The 18G x16cm Mermaid biopsy gun was placed into the skin dong and into the liver lesion and 3 core samples were taken. The specimens were placed in formalin solution and sent to pathology for analysis. Gelfoam was used to achieve hemostasis. Post-procedure: There were no immediate complications. The patient tolerated the procedure well. IMPRESSION: Successful US guided biopsy of liver lesion. Susy Kimble MD was in the room and participated during all huang portions of this procedure. I personally viewed and interpreted these images and I have reviewed and approved this report. [facility] PATHOLOGY Observed: 07/01/2018 Status: F Source: [facility] 3:59 PM [facility] REPOSITORY Surgical Pathology Report Patient Name: KIM DILLON [facility] Rec #: [id number] Submitting Physician: SUSY KIMBLE --- Clinical History --- Urothelial cancer. ADDENDA: Addendum added: 08/03/2018 ---Final Pathologic Diagnosis--- A. 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 See comment and synoptic report. Comment: Sections show cores of liver tissue with a crushed atypical B lymphocytic infiltrate expressing BCL2, BCL6 and MUM1 with a high proliferation rate (90%). The overall findings are consistent with an aggressive B cell lymphoma. The differential diagnoses include diffuse large B cell lymphoma not otherwise specified, non-germinal center phenotype and high grade B cell lymphoma with MYC and BCL2 and/or BCL6 rearrangements. For definitive subclassification, FISH for BCL2, BCL6 and C-MYC is requested. The sample size is small and may not be adequate for all the tests. The results and final diagnosis will be reported in an addendum. The adjacent liver is being reviewed by Dr. Haven Guerrier and the result will be reported in an addendum. LYMPHOMA SYNOPTIC REPORT Diagnosis: Aggressive B cell lymphoma Specimen type and site: Liver Procedure: Core needle biopsy Microscopic description: Sections show cores of liver tissue with foci of dense lymphoid infiltrate admixed with histiocytes and rare plasma cells. There is marked crush artifact and the morphologic evaluation is difficult. --Ancillary Studies-- Flow cytometry: Not performed/submitted Molecular studies: Sent for FISH analyses evaluating for rearrangements in MYC, BCL2, and BCL6. Special stains: Not performed Immunohistochemistry (IHC)/in situ hybridization (MARILIA): Neoplastic cells are positive for: CD45, PAX5, BCL2 (60%), BCL6 (60%), MUM1 (40%), and shows a high proliferation rate by Ki67 (90%). Neoplastic cells are negative for: CD3, CD10, CD56, synaptophysin, CK20, CK7, AE1/AE3 and RAMON-MARILIA. Other IHC/MARILIA findings: Bcl2: Highlights T cells in the background CD3: Highlights T cells in the background CD10: Marked background staining, precluding an accurate evaluation. All controls show appropriate reactivity. All immunohistochemistry, in situ hybridization, and histochemical tests were developed by and are performed at the [facility], [address] [place] [address]. All tests reported here, except those addressing HER2 overexpression as a predictive marker, have not been cleared by or approved by the US Food and Drug Administration (FDA). The laboratory is regulated under CLIA as qualified to perform high-complexity testing. The tests are used for clinical purposes. They should not be regarded as investigational or for research. Manual quantitative immunohistochemical assessment ofBCL2,BCL6,CD10, MUM1, MYC, and Ki67 is performed to determine prognostic categories of diffuse large B cell lymphoma (DLBCL), as per established guidelines. DLBCL is classified as germinal center B cell-like (GCB) subtype versus non-GCB by Suhail' Algorithm, and the positivity cutoff value for CD10, MUM1, and BCL6 immunohistochemistry is greater than or equal to 30% of the tumor cells. Of note, occasionally there is both CD10 and MUM1 expression in DLBCL. KT21-tyekeede, MUM1-positive DLBCLs are classified as GCB subtype per Suhail' Algorithm; however, these lymphomas are not well-characterized and may have a different clinical course compared to typical GCB DLBCL. Positivity cutoff values for MYC and BCL2 immunohistochemistry are greater than or equal to 40% and greater than or equal to 50% of the tumor cells, respectively. The above synoptic report complies, in slightly modified form, with the guidelines of the [employer] for the reporting of cancer specimens. Lymphoid neoplasms are classified according to NICOLE Shi et al. (Eds.). (2017) WHO Classification of Tumours of Haematopoietic and Lymphoid Tissue (revised 4th edition). Styles, Qi: International Agency for Research on Cancer. mg03/STEFAN:07/06/2018 Electronically Signed By IVONNE Elena 07/06/2018 14:09:55 Professional Interpretation performed at location: [address] 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 Dr. Ric Gonzales reviewed this case and concurs. Please see the attached B cell FISH report, which shows no rearrangement of the BCL2, BCL6 and MYC genes are detected by FISH. [facility] Clinical [facility] Results Order Code Test Code Clinical Result Unit BHGFI BCL2 rearrangement NOT DETECTED BCL6 Rearrangement NOT DETECTED MYCR Rearrangement NOT DETECTED B-NHL FISH Comment SEE TEXT Text/Comments: No rearrangements of the BCL2, BCL6 or MYC genes are detected by FISH. The clinical relevance of this result should be interpreted in the context of the tissue morphology and immunophenotyping. Methodology and Interpretation: After review of material to be tested by a molecular pathologist to select an area with labor union business representative lesional cells, formalin-fixed paraffin-embedded tissue sections from this case were evaluated by interphase fluorescence in situ hybridization (FISH). For each assay, up to 100 interphase cells from different mata were scored by a technologist using computer assisted technology ([employer] Image Analysis System) with results confirmed and an integrated report generated by the interpreting pathologist correlating FISH pattern with morphologic features. For BCL2 (Vysis LSI BCL2 Dual Color, Break Apart Rearrangement Probe), BCL6 (Vysis LSI BCL6/ABR dual color break apart rearrangement probe) and MYC (Vysis LSI MYC dual color break apart rearrangement probe): Cells were scored as negative if orange and green signals are adjacent or fused/yellow OR have single green signal(s) without corresponding orange signal(s). Cells were scored as positive if at least one set of orange and green signals were two or more signal diameters apart OR for MYC and BCL6 had orange signal(s) without corresponding green signal(s). A rearrangement is detected if at least 15% of tumor cells were scored as positive. An amplified result for BCL2 or MYC is indicated if there is an average of greater than 3 fusion signals per cell. Limitations: The use of one or more reagents in this test is regulated as an analyte specific reagent (ASR). This test was developed and performance characteristics were determined by the [facility], [facility] , [address] [place] [address] (CLIA: [id number]). Performance characteristics refer to the analytical performance of the test. They have not been cleared or approved by the US Food and Drug Administration (FDA). The FDA has determined that such clearance or approval is not necessary. The laboratory is regulated under the CLIA and CAP as qualified to perform high-complexity testing. This test is used for clinical purposes. They should not be regarded as investigational or for research. B-NHL FISH Read by Fransico Jackson MD,PhD B-NHL FISH Source LIVER MASS, NEEDLE CORE BIOPSY B-NHL FISH case number [id number] B-NHL Material Tested [id number] BLOCK A1 Addendum Date Ordered: 07/07/2018 Status: Signed Out Date Complete: 07/07/2018 Date Reported: 08/03/2018 Text: - Background liver shows cirrhosis (clinical history of RYAN) This addendum is issued to report the results of special stain performed on block A1 at the request of the clinical team, and special stains on block A2 to evaluate the adjacent liver: - Warthin Starry (A1) is negative - Trichrome stain highlights complete nodule formation/cirrhosis (reflected in addendum diagnosis) - Iron stain is negative - PAS-D is negative for cytoplasmic inclusions The clinical history of RYAN-cirrhosis is noted. No residual steatosis or steatohepatitis pattern of fibrosis is present in the submitted sample. Correlation with pertinent serologies is recommended to rule out other possible etiologies for the cirrhosis. All controls show appropriate reactivity. The histochemical tests reported here were performed at the [facility], Clinical Laboratory, [address] [place] [address]. On 2017, Lindsey Petersen CNP submitted an order for additional stains/tests Warthin-Starry staining and the tissue block(s) was submitted to the [facility] clinical histology laboratory for additional processing and staining. Haven Bocanegra MD ---SPECIMEN(S) RECEIVED:--- SBX A: Liver, neoplastic, BX ---GROSS DESCRIPTION:--- The specimen is received in one properly labeled container with the patient's name and accession number. A. The specimen is designated liver mass and consists of three torrez soft tissue cores ranging from 1.5 to 1.7 cm in length and 0.1 cm in diameter. TE 2 Lab Use Only: Job ID [id number] Gross description by: Nita Huddleston Performed By: #### SURGP #### [place] [address] *POC GLUCOSE BATTERY Collected: 07/01/2018 Status: F Source: [facility] 12:05 PM [facility] REPOSITORY TYPE CODE TESTS RESULT OUT OF REFERENCE UNITS RANGE LAB GLUP 70-99 mg/dL High Glucose (poc 109 device) Result Comment: No BRAVE per RN: PATIENT TYPE LAB PCSTYP *POC Capillary SAMPLE TYPE Blood *POC GLUCOSE BATTERY Collected: 07/01/2018 Status: F Source: [facility] 8:22 AM [facility] REPOSITORY TYPE CODE TESTS RESULT OUT OF REFERENCE UNITS RANGE LAB GLUP 70-99 mg/dL High Glucose (poc 111 device) Result Comment: No BRAVE per RN: PATIENT TYPE LAB PCSTYP *POC Capillary SAMPLE TYPE Blood HGB & HCT Collected: 07/01/2018 Status: F Source: [facility] 6:20 AM [facility] REPOSITORY TYPE CODE TESTS RESULT OUT OF REFERENCE UNITS RANGE LAB HGB 11.4-15.2 g/dL Low Hemoglobin 8.0 LAB HCT 34.9-44.3 % Low Hematocrit 24.2 Performed By: #### HH, PTI #### [place] [address] PT/INR BATTERY Collected: 07/01/2018 Status: F Source: [facility] 6:20 AM [facility] REPOSITORY TYPE CODE TESTS RESULT OUT OF RANGE REFERENCE UNITS LAB PT 11.9-14.2 sec High PT 16.7 LAB INR 0.9-1.1 High INR 1.3 Performed By: #### HH, PTI #### [place] [address] Observed: 07/01/2018 Status: F Source: [facility] TYPE AND CROSS 12:20 AM [facility] REPOSITORY ABO/RH(D): O POSITIVE ANTIBODY SCREEN: NEGATIVE UNIT NUMBER: [id number] BLOOD COMPONENT TYPE: Red Cells, Leukoreduced_[id number] STATUS OF UNIT: Issued, Final TRANSFUSION STATUS: OK TO TRANSFUSE CROSSMATCH RESULT: Electronically Compatible UNIT NUMBER: [id number] BLOOD COMPONENT TYPE: Red Cells, Leukoreduced_[id number] STATUS OF UNIT: Issued, Final TRANSFUSION STATUS: OK TO TRANSFUSE CROSSMATCH RESULT: Electronically Compatible Performed By: #### XM #### [facility] [address] [place] [address] [address] [place], [place] [address] CBC,PLATELET,DIFFERENTIAL - CCL Collected: Status: F Source: [facility] 07/01/2018 12:10 [facility] REPOSITORY TYPE CODE TESTS RESULT OUT OF REFERENCE UNITS RANGE LAB WBC 3.99-11.19 K/uL WBC Count 6.00 LAB RBC 3.91-5.04 M/uL RBC Count 2.70 Low LAB HGB 11.4-15.2 g/dL Hemoglobin 7.6 Low LAB HCT 34.9-44.3 % Hematocrit 22.7 Low LAB MCV 79.6-97.7 fL Mean Cell 84.1 Volume LAB MCH 25.9-33.9 pg Mean Cell 28.1 Hgb LAB MCHC 31.4-35.9 g/dL Mean Cell 33.5 Hgb Conc LAB RDW 10.8-14.9 % RBC 16.6 High Distribution LAB PLT 150-393 K/uL Platelet 57 Low Count LAB MPV 8.5-12.2 fL Mean 9.9 Platelet Volume LAB NRBC 0.0-0.2 /100 WBC NUCLEATED 0.3 High RBC LAB DTYPE Electronic DIFFERENTIAL TYPE Differential LAB IGRE % IMMATURE 0.7 GRANS % LAB SEGS % NEUTROPHIL 72.6 SEGMENTED LAB LYM % LYMPHOCYTE 12.0 % LAB MON % MONOCYTE % 9.7 LAB EOS % *EOSINOPHIL 4.7 % LAB BASO % BASOPHIL % 0.3 LAB IGABS 0.00-0.08 K/uL IMMATURE 0.04 GRANS ABSOLUTE LAB SBANS 1.64-7.28 K/uL SEGS + 4.36 Bands,Absolute LAB ALYM 1.16-3.51 K/uL Abs Lymph 0.72 Low LAB AMONO 0.22-0.87 K/uL Abs Laurel 0.58 LAB AEOS 0.00-0.42 K/uL Abs Eos 0.28 LAB ABASO 0.00-0.15 K/uL Abs Baso <0.04 Performed By: #### CBCDFC, CHM6 #### [facility] [address] [place] [id number] [place] [address] [place] [address] CHEM 6 Collected: 07/01/2018 Status: F Source: [facility] 12:10 AM [facility] REPOSITORY TYPE CODE TESTS RESULT OUT OF REFERENCE UNITS RANGE LAB BUN 7-22 mg/dL BUN High 37 LAB NA 133-143 mmol/L Sodium 137 LAB K 3.5-5.0 mmol/L Potassium 4.2 LAB CL 98-108 mmol/L Chloride High 112 LAB CO2 22-30 mmol/L Low Carbon Dioxide 17 LAB CREA 0.50-1.20 mg/dL High Creatinine 1.32 LAB GAP 7-17 mmol/L Anion Gap 12 LAB BC BUN/CREA Ratio 28 LAB GFR >60 mL/min/1.73 Low sqM Est GFR,non 41 Estonian LAB GFRA >60 mL/min/1.73 Low sqM Est GFR, 49 Performed By: #### CBCDFC, CHM6 #### [facility] [address] [place] [address] [place] [address] *POC GLUCOSE BATTERY Collected: 06/30/2018 Status: F Source: [facility] 9:53 PM [facility] REPOSITORY TYPE CODE TESTS RESULT OUT OF REFERENCE UNITS RANGE LAB GLUP 70-99 mg/dL High Glucose (poc 212 device) Result Comment: No BRAVE per RN: PATIENT TYPE LAB PCSTYP *POC Capillary SAMPLE TYPE Blood *POC GLUCOSE BATTERY Collected: 06/30/2018 Status: F Source: [facility] 6:18 PM [facility] REPOSITORY TYPE CODE TESTS RESULT OUT OF REFERENCE UNITS RANGE LAB GLUP 70-99 mg/dL High Glucose (poc 242 device) Result Comment: Notified RNread back No BRAVE per RN: PATIENT TYPE LAB PCSTYP *POC Capillary SAMPLE TYPE Blood HGB & HCT Collected: 06/30/2018 Status: F Source: [facility] 5:25 PM [facility] REPOSITORY TYPE CODE TESTS RESULT OUT OF REFERENCE UNITS RANGE LAB HGB 11.4-15.2 g/dL Low Hemoglobin 8.1 LAB HCT 34.9-44.3 % Low Hematocrit 25.2 Performed By: #### HH #### [facility] [id number] [place] [address] [place] [address] BACT CULTURE/DIR Observed: Status: F Source: [place] [facility],LESION,TISSUE,DEVICE-[facility] 06/30/2018 1:37 [facility] REPOSITORY SOURCE: WOUND: Left Dorsum Wrist COMMENT: eSwab transport medium sent MICROSCOPIC: Neutrophils, Heavy Red Blood Cells Present Mononuclear cells present NO ORGANISMS SEEN Gram Stain read at [facility] QUANTITATION: <<NOT APPLICABLE>> RESULT: PASTEURELLA MULTOCIDA : 1 COLONY :Identification by MALDI- TOF mass spectrometer. ---> RVW (NOTE) Susceptibilities not routinely performed. Identification was performed on the MALDI-TOF mass spectrometer Biot[employer]per. This test was developed and its performance characteristics determined by [facility] at [facility]. It has not been cleared or approved by the FDA. The laboratory is regulated under CLIA as qualified to perform high -complexity testing. This test is used for clinical purposes. It should not be regarded as investigational or for research REPORT STATUS: 07/02/2018 FINAL Performed By: #### GEN #### [address] [address] Blood Cultures processed at: [facility] Observed: 06/30/2018 Status: F Source: [facility] CULTURE -E 1:37 PM [facility] REPOSITORY SOURCE: WOUND: Left Dorsum Wrist COMMENT: eSwab transport medium sent MICROSCOPIC: See Routine Culture RESULT: NO ANAEROBIC GROWTH REPORT STATUS: 07/06/2018 FINAL Performed By: #### REINALDO #### [address] [address] Blood Cultures processed at: [facility] Observed: 06/30/2018 Status: F Source: [facility] ACID FAST CULTURE 1:36 PM [facility] REPOSITORY SOURCE: WOUND: Left Dorsum Wrist COMMENT: eSwab transport medium sent MICROSCOPIC: No Acid Fast Bacillus Seen :Examined by Fluorochrome Stain RESULT: NO GROWTH DAY 42 OF 42 REPORT STATUS: 08/11/2018 FINAL Performed By: #### AFB #### [address] [address] Blood Cultures processed at: [facility] Observed: 06/30/2018 Status: F Source: [facility] FUNGUS CULTURE -UHE 1:35 PM [facility] REPOSITORY SOURCE: WOUND: Left Dorsum Wrist COMMENT: Cultures held 28 days. eSwab transport medium sent RESULT: NO GROWTH TO DATE REPORT STATUS: 07/28/2018 FINAL Performed By: #### FUN #### [address] [address] Blood Cultures processed at: [facility] HGB & HCT Collected: 06/30/2018 Status: F Source: [facility] 12:43 PM [facility] REPOSITORY TYPE CODE TESTS RESULT OUT OF REFERENCE UNITS RANGE LAB HGB 11.4-15.2 g/dL Low Hemoglobin 7.9 LAB HCT 34.9-44.3 % Low Hematocrit 24.2 Performed By: #### HH, PTI #### U [address] [address] PT/INR BATTERY Collected: 06/30/2018 Status: F Source: [facility] 12:43 PM [facility] REPOSITORY TYPE CODE TESTS RESULT OUT OF RANGE REFERENCE UNITS LAB PT 11.9-14.2 sec High PT 16.9 LAB INR 0.9-1.1 High INR 1.4 Performed By: #### HH, PTI #### U [id number] [place] [address] [place] [address] *POC GLUCOSE BATTERY Collected: 06/30/2018 Status: F Source: [facility] 12:16 PM [facility] REPOSITORY TYPE CODE TESTS RESULT OUT OF REFERENCE UNITS RANGE LAB GLUP 70-99 mg/dL High Glucose (poc 133 device) Result Comment: No BRAVE per RN: PATIENT TYPE LAB PCSTYP *POC Capillary SAMPLE TYPE Blood *POC GLUCOSE BATTERY Collected: 06/30/2018 Status: F Source: [facility] 11:43 AM [facility] REPOSITORY TYPE CODE TESTS RESULT OUT OF REFERENCE UNITS RANGE LAB GLUP 70-99 mg/dL High Glucose (poc 141 device) Result Comment: No BRAVE per RN: PATIENT TYPE LAB PCSTYP *POC Capillary SAMPLE TYPE Blood BACT CULTURE/DIR Observed: Status: F Source: [place] [facility],LESION,TISSUE,DEVICE-UHE 06/30/2018 11:29 [facility] REPOSITORY SOURCE: WOUND: Left Wrist JOINT COMMENT: eSwab transport medium sent MICROSCOPIC: Neutrophils, None Red Blood Cells Present NO ORGANISMS SEEN Gram Stain read at [facility] QUANTITATION: <<NOT APPLICABLE>> RESULT: PASTEURELLA MULTOCIDA : 1 COLONY :Identification by MALDI- TOF mass spectrometer. ---> RVW (NOTE) Susceptibilities not routinely performed. Identification was performed on the MALDI-TOF mass spectrometer [place]. This test was developed and its performance characteristics determined by [facility] at [facility]. It has not been cleared or approved by the FDA. The laboratory is regulated under CLIA as qualified to perform high -complexity testing. This test is used for clinical purposes. It should not be regarded as investigational or for research REPORT STATUS: 07/02/2018 FINAL Performed By: #### GEN #### [place] [address] Blood Cultures processed at: [facility] Observed: 06/30/2018 Status: F Source: [facility] ACID FAST CULTURE 11:29 [facility] REPOSITORY SOURCE: WOUND: Left Wrist JOINT COMMENT: eSwab transport medium sent MICROSCOPIC: No Acid Fast Bacillus Seen :Examined by Fluorochrome Stain RESULT: NO GROWTH DAY 42 OF 42 REPORT STATUS: 08/11/2018 FINAL Performed By: #### AFB #### [address] [address] Blood Cultures processed at: [facility] Observed: 06/30/2018 Status: F Source: [facility] FUNGUS CULTURE -UHE 11:29 [facility] REPOSITORY SOURCE: WOUND: Right Wrist JOINT COMMENT: Cultures held 28 days. eSwab transport medium sent RESULT: NO GROWTH TO DATE REPORT STATUS: 07/28/2018 FINAL Performed By: #### FUN #### [address] [address] Blood Cultures processed at: [facility] Observed: 06/30/2018 Status: F Source: [facility] ANAEROBE CULTURE -E 11:29 [facility] REPOSITORY SOURCE: WOUND: Left Wrist JOINT COMMENT: eSwab transport medium sent MICROSCOPIC: See Routine Culture RESULT: NO ANAEROBIC GROWTH (NOTE) Specimen incubated up to 14 days REPORT STATUS: 07/14/2018 FINAL Performed By: #### REINALDO #### [facility] [address] [place] [address] Blood Cultures processed at: [facility] *POC GLUCOSE BATTERY Collected: 06/30/2018 Status: F Source: [facility] 8:00 AM [facility] REPOSITORY TYPE CODE TESTS RESULT OUT OF REFERENCE UNITS RANGE LAB GLUP 70-99 mg/dL High Glucose (poc 138 device) Result Comment: Notified RNread back No BRAVE per RN: PATIENT TYPE LAB PCSTYP *POC Capillary SAMPLE TYPE Blood HGB & HCT Collected: 06/30/2018 Status: F Source: [facility] 6:00 AM [facility] REPOSITORY TYPE CODE TESTS RESULT OUT OF REFERENCE UNITS RANGE LAB HGB 11.4-15.2 g/dL Low Hemoglobin 7.2 LAB HCT 34.9-44.3 % Low Hematocrit 21.8 Performed By: #### HH #### [facility] [address] [place] [id number] [place] [address] [place] [address] CBC,PLATELET,DIFFERENTIAL - CCL Collected: Status: F Source: [facility] 06/30/2018 12:01 [facility] REPOSITORY TYPE CODE TESTS RESULT OUT OF REFERENCE UNITS RANGE LAB WBC 3.99-11.19 K/uL WBC Count 6.52 LAB RBC 3.91-5.04 M/uL Low RBC Count 2.47 LAB HGB 11.4-15.2 g/dL Low alert Hemoglobin 6.5 Result Comment: This result has been called to RN ANDREA BERNSTEIN by Babita Castro on 06 30 2018 at 0038, and has been read back. LAB HCT 34.9-44.3 % Hematocrit 20.2 Low LAB MCV 79.6-97.7 fL Mean Cell 81.8 Volume LAB MCH 25.9-33.9 pg Mean Cell 26.3 Hgb LAB MCHC 31.4-35.9 g/dL Mean Cell 32.2 Hgb Conc LAB RDW 10.8-14.9 % RBC 16.6 High Distribution LAB PLT 150-393 K/uL Platelet 71 Low Count LAB MPV 8.5-12.2 fL Mean 11.0 Platelet Volume LAB NRBC 0.0-0.2 /100 WBC NUCLEATED 0.6 High RBC LAB DTYPE Electronic DIFFERENTIAL TYPE Differential LAB IGRE % IMMATURE 0.6 GRANS % LAB SEGS % NEUTROPHIL 71.8 SEGMENTED LAB LYM % LYMPHOCYTE 10.6 % LAB MON % MONOCYTE % 10.9 LAB EOS % *EOSINOPHIL 5.8 % LAB BASO % BASOPHIL % 0.3 LAB IGABS 0.00-0.08 K/uL IMMATURE 0.04 GRANS ABSOLUTE LAB SBANS 1.64-7.28 K/uL SEGS + 4.68 Bands,Absolute LAB ALYM 1.16-3.51 K/uL Abs Lymph 0.69 Low LAB AMONO 0.22-0.87 K/uL Abs Laurel 0.71 LAB AEOS 0.00-0.42 K/uL Abs Eos 0.38 LAB ABASO 0.00-0.15 K/uL Abs Baso <0.04 Performed By: #### ELIJAH, CHM6 #### [facility] [address] [place] [address] CHEM 6 Collected: 06/30/2018 Status: F Source: [facility] 12:01 AM [facility] REPOSITORY TYPE CODE TESTS RESULT OUT OF REFERENCE UNITS RANGE LAB BUN 7-22 mg/dL BUN High 39 LAB NA 133-143 mmol/L Sodium 137 LAB K 3.5-5.0 mmol/L Potassium 4.0 LAB CL 98-108 mmol/L Chloride High 112 LAB CO2 22-30 mmol/L Low Carbon Dioxide 18 LAB CREA 0.50-1.20 mg/dL High Creatinine 1.30 LAB GAP 7-17 mmol/L Anion Gap 11 LAB BC BUN/CREA Ratio 30 LAB GFR >60 mL/min/1.73 Low sqM Est GFR,non 41 Estonian LAB GFRA >60 mL/min/1.73 Low sqM Est GFR, 50 Performed By: #### ELIJAH, CHM6 #### [facility] [address] [address] [facility] [address] [place] [address] *POC GLUCOSE BATTERY Collected: 06/29/2018 Status: F Source: [facility] 9:38 PM [facility] REPOSITORY TYPE CODE TESTS RESULT OUT OF REFERENCE UNITS RANGE LAB GLUP 70-99 mg/dL High Glucose (poc 220 device) Result Comment: No BRAVE per RN: PATIENT TYPE LAB PCSTYP *POC Capillary SAMPLE TYPE Blood *POC GLUCOSE BATTERY Collected: 06/29/2018 Status: F Source: [facility] 6:16 PM [facility] REPOSITORY TYPE CODE TESTS RESULT OUT OF REFERENCE UNITS RANGE LAB GLUP 70-99 mg/dL High Glucose (poc 203 device) Result Comment: No BRAVE per RN: PATIENT TYPE LAB PCSTYP *POC Capillary SAMPLE TYPE Blood HGB & HCT Collected: 06/29/2018 Status: F Source: [facility] 5:57 PM [facility] REPOSITORY TYPE CODE TESTS RESULT OUT OF REFERENCE UNITS RANGE LAB HGB 11.4-15.2 g/dL Low Hemoglobin 7.1 LAB HCT 34.9-44.3 % Low Hematocrit 21.8 Performed By: #### HH #### [facility] [place] [address] *POC GLUCOSE BATTERY Collected: 06/29/2018 Status: F Source: [facility] 3:44 PM [facility] REPOSITORY TYPE CODE TESTS RESULT OUT OF REFERENCE UNITS RANGE LAB GLUP 70-99 mg/dL High Glucose (poc 263 device) Result Comment: Notified RNread back No BRAVE per RN: PATIENT TYPE LAB PCSTYP *POC Capillary SAMPLE TYPE Blood XR FEMUR LEFT Observed: 06/29/2018 Status: F Source: [facility] 2:28 PM [facility] REPOSITORY EXAM: XR PELVIS MIN 3 VIEWS, XR FEMUR LEFT, 06/29/2018 14:04 PM (accession [id number]), 06/29/2018 14:05 PM (accession [id number]) COMPARISON: CT abdomen/pelvis 06/27/2018, left femur radiographs 06/22/2018 CLINICAL INDICATIONS: , please include inlet, outlet, and judet views. patient with known lesions to left femoral neck, ischial and acetabular, R inferior pubic ramus, and left sacral lesions on MRI RELEVANT CLINICAL HISTORY: FINDINGS 6 images of the pelvis and 4 images of the left femur obtained. PELVIS: Bone: No displaced fracture is identified. Ill-defined lesions of the left innominate bones are better seen on recent CT. SI Joint: The sacroiliac joints are anatomically aligned. Hip: The hips are anatomically aligned with degenerative changes. LEFT FEMUR: Bone: No displaced fracture is identified. Ill-defined lesions of the proximal left femur are better seen on recent CT. Joint: Degenerative changes are seen in the left hip and knee. IMPRESSION: Ill-defined osseous lesions are better seen on recent CT. No displaced fracture identified. Osteoarthritis of the left hip and knee. PELVIS MIN 3 Observed: 06/29/2018 Status: F Source: [facility] VIEWS 2:28 PM [facility] REPOSITORY EXAM: XR PELVIS MIN 3 VIEWS, XR FEMUR LEFT, 06/29/2018 14:04 PM (accession [id number]), 06/29/2018 14:05 PM (accession [id number]) COMPARISON: CT abdomen/pelvis 06/27/2018, left femur radiographs 06/22/2018 CLINICAL INDICATIONS: , please include inlet, outlet, and judet views. patient with known lesions to left femoral neck, ischial and acetabular, R inferior pubic ramus, and left sacral lesions on MRI RELEVANT CLINICAL HISTORY: FINDINGS 6 images of the pelvis and 4 images of the left femur obtained. PELVIS: Bone: No displaced fracture is identified. Ill-defined lesions of the left innominate bones are better seen on recent CT. SI Joint: The sacroiliac joints are anatomically aligned. Hip: The hips are anatomically aligned with degenerative changes. LEFT FEMUR: Bone: No displaced fracture is identified. Ill-defined lesions of the proximal left femur are better seen on recent CT. Joint: Degenerative changes are seen in the left hip and knee. IMPRESSION: Ill-defined osseous lesions are better seen on recent CT. No displaced fracture identified. Osteoarthritis of the left hip and knee. & HCT Collected: 06/29/2018 Status: F Source: [facility] 12:24 PM [facility] REPOSITORY TYPE CODE TESTS RESULT OUT OF REFERENCE UNITS RANGE LAB HGB 11.4-15.2 g/dL Low Hemoglobin 7.3 LAB HCT 34.9-44.3 % Low Hematocrit 22.6 Performed By: #### HH #### [facility] [address] [place] [address] [facility] [address] [place] [address] *POC GLUCOSE BATTERY Collected: 06/29/2018 Status: F Source: [facility] 11:39 AM [facility] REPOSITORY TYPE CODE TESTS RESULT OUT OF REFERENCE UNITS RANGE LAB GLUP 70-99 mg/dL High Glucose (poc 212 device) Result Comment: Notified RNread back No BRAVE per RN: PATIENT TYPE LAB PCSTYP *POC Capillary SAMPLE TYPE Blood *POC GLUCOSE BATTERY Collected: 06/29/2018 Status: F Source: [facility] 7:44 AM [facility] REPOSITORY TYPE CODE TESTS RESULT OUT OF REFERENCE UNITS RANGE LAB GLUP 70-99 mg/dL High Glucose (poc 168 device) Result Comment: Notified RNread back No BRAVE per RN: PATIENT TYPE LAB PCSTYP *POC Capillary SAMPLE TYPE Blood HGB & HCT Collected: 06/29/2018 Status: F Source: [facility] 5:38 AM [facility] REPOSITORY TYPE CODE TESTS RESULT OUT OF REFERENCE UNITS RANGE LAB HGB 11.4-15.2 g/dL Low Hemoglobin 7.5 LAB HCT 34.9-44.3 % Low Hematocrit 23.1 Performed By: #### HH #### [facility] [address] [place] [address] [place] [address] IMMUNOCOMPROMISED Collected: Status: F Source: [facility] RESPIRATORY PANEL 06/29/2018 1:55 AM [facility] REPOSITORY TYPE CODE TESTS RESULT OUT OF REFERENCE UNITS RANGE LAB SOUR17 Specimen Source NASOPHARYNX: LAB MINFA Influenza A - PCR NOT DETECTED LAB MINFH1 Influenza A - NOT Subtype H1 DETECTED LAB MINFH3 Influenza A - NOT Subtype Human H3 DETECTED LAB MINFHN Influenza - NOT Subtype 2009 H1N1 DETECTED LAB MINFB *Influenza B - NOT PCR DETECTED LAB MINRSV RSV - PCR NOT DETECTED LAB MINP1 Parainfluenza 1 - NOT PCR DETECTED LAB MINP2 Parainfluenza 2 - NOT PCR DETECTED LAB MINP3 Parainfluenza 3 - NOT PCR DETECTED LAB MINP4 Parainfluenza 4 - NOT PCR DETECTED LAB MINMPV Metapneumovirus - NOT PCR DETECTED LAB MINRV NOT Rhinovirus/Enterovi DETECTED tamara - PCR LAB MINADV Adenovirus - PCR NOT DETECTED LAB MINCE Coronavirus 229E NOT DETECTED LAB MINCN Coronavirus NL63 NOT DETECTED LAB MINCH Coronavirus HKU1 NOT DETECTED LAB MINCO Coronavirus OC43 NOT DETECTED LAB MINBPP Bordetella NOT parapertussis DETECTED LAB MINBP Bordetella NOT pertussis DETECTED LAB MINCP Chlamydia NOT pneumoniae DETECTED LAB MINMP Mycoplasma NOT pneumoniae DETECTED LAB RVPCOM RV COMMENT Results should be used in conjunction with other clinical and laboratory findings. This result does not rule out co-infections with pathogens that are not screened for by the Respiratory Panel(RP). This RP assay was performed using a Film Array multiplex nucleic accid assay. Performed By: #### ICRESP #### [place] [address] CBC,PLATELET,DIFFERENTIAL - CCL Collected: Status: F Source: [facility] 06/29/2018 12:22 [facility] REPOSITORY TYPE CODE TESTS RESULT OUT OF REFERENCE UNITS RANGE LAB WBC 3.99-11.19 K/uL WBC Count 6.37 LAB RBC 3.91-5.04 M/uL Low RBC Count 2.39 LAB HGB 11.4-15.2 g/dL Low alert Hemoglobin 6.3 Result Comment: This result has been called to RENALDO BERNSTEIN by Urmila Lopez on 06 29 2018 at 0059, and has been read back. LAB HCT 34.9-44.3 % Hematocrit 19.8 Low LAB MCV 79.6-97.7 fL Mean Cell 82.8 Volume LAB MCH 25.9-33.9 pg Mean Cell 26.4 Hgb LAB MCHC 31.4-35.9 g/dL Mean Cell 31.8 Hgb Conc LAB RDW 10.8-14.9 % RBC 16.2 High Distribution LAB PLT 150-393 K/uL Platelet 67 Low Count LAB MPV 8.5-12.2 fL Mean 10.3 Platelet Volume LAB NRBC 0.0-0.2 /100 WBC NUCLEATED 0.8 High RBC LAB DTYPE Electronic DIFFERENTIAL TYPE Differential LAB IGRE % IMMATURE 0.8 GRANS % LAB SEGS % NEUTROPHIL 73.7 SEGMENTED LAB LYM % LYMPHOCYTE 11.9 % LAB MON % MONOCYTE % 10.2 LAB EOS % *EOSINOPHIL 3.1 % LAB BASO % BASOPHIL % 0.3 LAB IGABS 0.00-0.08 K/uL IMMATURE 0.05 GRANS ABSOLUTE LAB SBANS 1.64-7.28 K/uL SEGS + 4.69 Bands,Absolute LAB ALYM 1.16-3.51 K/uL Abs Lymph 0.76 Low LAB AMONO 0.22-0.87 K/uL Abs Laurel 0.65 LAB AEOS 0.00-0.42 K/uL Abs Eos 0.20 LAB ABASO 0.00-0.15 K/uL Abs Baso <0.04 Performed By: #### CBCDFC, CHM6, HFP, IPB, MGO #### [facility] [address] [place] [id number] [place] [address] [address] CHEM 6 Collected: 06/29/2018 Status: F Source: [facility] 12:22 [facility] REPOSITORY TYPE CODE TESTS RESULT OUT OF REFERENCE UNITS RANGE LAB BUN 7-22 mg/dL BUN High 47 LAB NA 133-143 mmol/L Sodium 140 LAB K 3.5-5.0 mmol/L Potassium 4.0 LAB CL 98-108 mmol/L Chloride High 112 LAB CO2 22-30 mmol/L Low Carbon Dioxide 19 LAB CREA 0.50-1.20 mg/dL High Creatinine 1.58 LAB GAP 7-17 mmol/L Anion Gap 13 LAB BC BUN/CREA Ratio 30 LAB GFR >60 mL/min/1.73 Low sqM Est GFR,non 33 Estonian LAB GFRA >60 mL/min/1.73 Low sqM Est GFR, 40 Performed By: #### CBCDFC, CHM6, HFP, IPB, MGO #### [facility] [address] [place] [id number] [place] [address] [place] [address] HEPATIC FUNCTION Collected: 06/29/2018 Status: F Source: [facility] 12:22 [facility] REPOSITORY TYPE CODE TESTS RESULT OUT OF REFERENCE UNITS RANGE LAB ALB 3.5-5.0 g/dL Low Albumin 2.4 LAB BILD <0.3 mg/dL Bilirubin High Direct 1.0 LAB BILT <1.5 mg/dL Bilirubin High Total 2.5 LAB ALP 32-126 U/L Alkaline Phosphatase 102 LAB ALT 9-48 U/L ALT 9 LAB AST 14-40 U/L Low AST 12 LAB TP 6.4-8.3 g/dL Low Total Protein 4.9 Performed By: #### CBCDFC, CHM6, HFP, IPB, MGO #### [facility] [address] [place] [id number] [place] [address] [place] [address] INORGANIC PHOSPHATE Collected: 06/29/2018 Status: F Source: [facility] 12:22 AM [facility] REPOSITORY TYPE CODE TESTS RESULT OUT OF REFERENCE UNITS RANGE LAB IP 2.2-4.6 mg/dL Inorg Phosphate 3.4 Performed By: #### CBCDFC, CHM6, HFP, IPB, MGO #### [facility] [address] [place] [id number] [place] [address] [place] [address] MAGNESIUM Collected: 06/29/2018 Status: F Source: [facility] 12:22 AM [facility] REPOSITORY TYPE CODE TESTS RESULT OUT OF REFERENCE UNITS RANGE LAB MG 1.6-2.6 mg/dL Magnesium 2.2 Performed By: #### CBCDFC, CHM6, HFP, IPB, MGO #### [facility] [address] [place] [phone] [place] [address] [place] [address] *POC GLUCOSE BATTERY Collected: 06/28/2018 Status: F Source: [facility] 9:07 PM [facility] REPOSITORY TYPE CODE TESTS RESULT OUT OF REFERENCE UNITS RANGE LAB GLUP 70-99 mg/dL High Glucose (poc 225 device) Result Comment: No BRAVE per RN: PATIENT TYPE LAB PCSTYP *POC Capillary SAMPLE TYPE Blood *POC GLUCOSE BATTERY Collected: 06/28/2018 Status: F Source: [facility] 6:31 PM [facility] REPOSITORY TYPE CODE TESTS RESULT OUT OF REFERENCE UNITS RANGE LAB GLUP 70-99 mg/dL High Glucose (poc 220 device) Result Comment: Notified RNread back No BRAVE per RN: PATIENT TYPE LAB PCSTYP *POC Capillary SAMPLE TYPE Blood HGB & HCT Collected: 06/28/2018 Status: F Source: [facility] 5:35 PM [facility] REPOSITORY TYPE CODE TESTS RESULT OUT OF REFERENCE UNITS RANGE LAB HGB 11.4-15.2 g/dL Low alert Hemoglobin 6.2 Result Comment: This result has been called to RN SAHIL BEVAERS by Felipe Baker on 06 28 2018 at 1836, and has been read back. LAB HCT 34.9-44.3 % Hematocrit Low 19.5 Performed By: #### HH #### [facility] [address] [place] [address] [place] [address] *POC GLUCOSE BATTERY Collected: 06/28/2018 Status: F Source: [facility] 11:48 AM [facility] REPOSITORY TYPE CODE TESTS RESULT OUT OF REFERENCE UNITS RANGE LAB GLUP 70-99 mg/dL High Glucose (poc 247 device) Result Comment: No BRAVE per RN: PATIENT TYPE LAB PCSTYP *POC Capillary SAMPLE TYPE Blood HGB & HCT Collected: 06/28/2018 Status: F Source: [facility] 11:46 AM [facility] REPOSITORY TYPE CODE TESTS RESULT OUT OF REFERENCE UNITS RANGE LAB HGB 11.4-15.2 g/dL Low Hemoglobin 7.1 LAB HCT 34.9-44.3 % Low Hematocrit 21.6 Performed By: #### HH #### [facility] [address] [place] [address] [place] [address] CHEST WITHOUT Observed: 06/28/2018 Status: F Source: [facility] CONTRAST 11:08 AM [facility] REPOSITORY EXAM: CT CHEST WITHOUT CONTRAST, 06/28/2018 09:39 AM COMPARISON: Chest CT from April 16, 2018 CLINICAL INDICATIONS: METASTATIC UROTHELIAL CANCER STAGING, PULM NODULE AND ? PNEUMONIA; RELEVANT CLINICAL HISTORY: TECHNIQUE: Axial CT images were reconstructed from the volumetric data set, from the thoracic inlet through the adrenal glands. No intravenous contrast was used. Coronal MIP images were also reconstructed. FINDINGS: Lungs and Pleura: Stable 5 mm nodules in the right lower lobe (image 42). No new or enlarging suspicious pulmonary nodule. No consolidation, pleural effusion, or pneumothorax. Tracheobronchial tree: No abnormality. Mediastinum/Jodi: Interval increase in size of a right lower paratracheal lymph node, now measuring 2.0 x 1.6 cm as compared to 1.3 x 0.7 cm previously (axial image 19). Axilla and Supraclavicular Regions: No axillary or supraclavicular adenopathy. Cardiovascular: The cardiac chambers are within normal limits. The pericardium is normal. Minimal coronary artery calcifications. The aorta and its arch branch vessels are unremarkable. The pulmonary arteries are also unremarkable. Upper Abdomen: For details regarding the abdomen, please see separately dictated report for CT abdomen/pelvis performed on the same day. Bones and Soft Tissue: No suspicious osseous lesion. IMPRESSION: 1. Redemonstration of right lower lobe nodule, stable since at least March 2015, likely of a benign etiology. No new or enlarging suspicious pulmonary nodule. 2. Interval increase in size of mediastinal lymph nodes, now mildly enlarged. This is of indeterminate etiology, but metastatic disease cannot be excluded. HEAD WITHOUT Observed: 06/28/2018 Status: F Source: [facility] CONTRAST 10:35 AM [facility] REPOSITORY EXAM: CT HEAD WITHOUT CONTRAST, 06/28/2018 9:39 AM COMPARISON: None. CLINICAL INDICATIONS: 63 years Female HEAD TAUMA; RELEVANT CLINICAL HISTORY: TECHNIQUE: A series of transaxial computerized tomographic images are obtained from base of skull to vertex without intravenous contrast. Axial whole-head and thin section posterior fossa slices are provided. Reformats: Sagittal and coronal. FINDINGS: No acute intracranial hemorrhage. Mild patchy periventricular and subcortical white matter changes are nonspecific but likely related to chronic small vessel ischemic disease. There is no mass lesion or midline shift. There is no evidence of hemorrhage or acute infarct. Scattered atherosclerotic vascular calcifications at the skull base. There is no extracerebral collection. Ventricles are normal in size and configuration for patient's stated age. Posterior fossa is within normal limits. Calvarium and skull base appear intact. Visualized sinuses show no air fluid levels. Visualized orbits are unremarkable. IMPRESSION: No intracranial hemorrhage or other acute abnormality. I personally viewed and interpreted these images and I have reviewed and approved this report. ONIN I Collected: 06/28/2018 Status: F Source: [facility] 10:21 AM [facility] REPOSITORY TYPE CODE TESTS RESULT OUT OF REFERENCE UNITS RANGE LAB TROP <0.11 ng/mL Troponin I 0.01 Performed By: #### TROP #### [facility] [address] [place] [address] XR CHEST AP PORTABLE Observed: 06/28/2018 Status: F Source: [facility] ED 8:53 AM [facility] REPOSITORY EXAM: XR CHEST AP PORTABLE ED, 06/27/2018 16:51 PM COMPARISON: CT chest dated 04/16/2018, chest radiograph dated 01/13/2018. CLINICAL INDICATIONS: SOB RELEVANT CLINICAL HISTORY: FINDINGS: (Adequate technique) Life Support Devices: None Chest Wall: Normal Jodi: Normal Mediastinum: Normal Pleural Spaces: No definite pleural effusion. No definite pneumothorax. Lungs: Clear Cardiac Silhouette: Normal, without overall or specific chamber enlargement, or abnormal calcification Thoracic Aorta: Normal Pulmonary Vessels: Normal, without PVH IMPRESSION: No acute cardiopulmonary findings. I personally viewed and interpreted these images and I have reviewed and approved this report. ATE, BLOOD Collected: 06/28/2018 Status: F Source: [facility] 7:56 AM [facility] REPOSITORY TYPE CODE TESTS RESULT OUT OF RANGE REFERENCE UNITS LAB LACT 0.5-1.6 mmol/L Lactate, 1.2 Blood Performed By: #### LACT #### [place] [address] HGB & HCT Collected: 06/28/2018 Status: F Source: [facility] 6:12 AM [facility] REPOSITORY TYPE CODE TESTS RESULT OUT OF REFERENCE UNITS RANGE LAB HGB 11.4-15.2 g/dL Low Hemoglobin 7.0 LAB HCT 34.9-44.3 % Low Hematocrit 21.1 Performed By: #### HH, TROP #### [facility] [address] [place] [address] TROPONIN I Collected: 06/28/2018 Status: F Source: [facility] 6:12 AM [facility] REPOSITORY TYPE CODE TESTS RESULT OUT OF REFERENCE UNITS RANGE LAB TROP <0.11 ng/mL Troponin I 0.01 Performed By: #### HH, TROP #### [facility] [address] [place], [place] [id number] [place] [address] [address] [place], [place] [address] FLUID BATTERY Collected: 06/28/2018 Status: C Source: [facility] 1:48 AM [facility] REPOSITORY TYPE CODE TESTS RESULT OUT OF REFERENCE UNITS RANGE LAB AMIRAH Gross Appearance Red (Fluid) Result Comment: Opaque LAB SUPN Supernatant TEST NOT (Fluid) PERFORMED, SPECIMEN VOLUME IS NOT SUFFICIENT LAB FWBC /uL WBC FLUID [id number] Result Comment: The reference range and other method performance specifications have not been established for this fluid specimen. The test result should be integrated into the clinical context for interpretation. Fluid contains clots or clumped cells, results may not be accurate. LAB FRBC /uL RBC FLUID [id number] Result Comment: The reference range and other method performance specifications have not been established for this fluid specimen. The test result should be integrated into the clinical context for interpretation. Fluid contains clots or clumped cells, results may not be accurate. LAB NOCC Cells Counted 100 (Fluid) LAB FSEG % Neutrophils (Fluid) 87 LAB FLYM % Lymphocytes (Fluid) 10 LAB FMOMAC % Monocytes/Macrophage 2 s, Fluid LAB EOSN % EOSINOPHILS FLUID 0 LAB BAS % BASOPHILS (FLUID) [address] Lianne Villalta MD, Reviewed by PhD LAB FCOM Comment (Fluid) Acute inflammation present, no organisms seen. Result Comment: Blood is present. Correlation with gram stain and culture recommended. LAB SPECBF SPECIMEN Synovial SOURCE Fluid: Left Wrist Result Comment: CORRECTED ON 06/28 AT 0233: PREVIOUSLY REPORTED FLUID: LAB SYNLC % SYNOVIAL LINING CELLS 1 Performed By: #### FLDB, FCRYSB #### [facility] [address] [place], [place] [id number] [place] [address] [address] [place], [place] [address] FLUID CRYSTALS Collected: 06/28/2018 Status: F Source: [facility] 1:48 AM [facility] REPOSITORY TYPE CODE TESTS RESULT OUT OF RANGE REFERENCE UNITS LAB FCRYS Negative Calcium Abnormal CRYSTALS pyrophosphate FLUID crystals are present. Result Comment: RARE LAB RB17 Reviewed by: Dr. Lianne Villalta MD, PhD Performed By: #### FLDB, FCRYSB #### [facility] [address] [place] [address] [address] [place], [place] [address] Observed: 06/28/2018 Status: F Source: [facility] BODY FLUID CULTURE 1:48 AM [facility] REPOSITORY SOURCE: Synovial Fluid: Left Wrist COMMENT: Results may be compromised due to the limited volume of specimen received. Bloody .2MLS MICROSCOPIC: Neutrophils, Heavy Mononuclear cells present NO ORGANISMS SEEN Final Report, verified by Microbiology RESULT: NO GROWTH DAY 2 REPORT STATUS: 06/30/2018 FINAL Performed By: #### BENOIT #### [address] [address] Blood Cultures processed at: [facility] Observed: 06/28/2018 Status: F Source: [facility] FUNGUS CULTURE -UHE 1:48 AM [facility] REPOSITORY SOURCE: Synovial Fluid: Left Wrist COMMENT: Bloody .2MLS RESULT: NO GROWTH TO DATE REPORT STATUS: 07/27/2018 FINAL Performed By: #### FUN #### [address] [address] Blood Cultures processed at: [facility] HEMOGRAM (CBC AND Collected: 06/28/2018 Status: F Source: [facility] PLATELET) 1:38 AM [facility] REPOSITORY TYPE CODE TESTS RESULT OUT OF REFERENCE UNITS RANGE LAB WBC 3.99-11.19 K/uL WBC Count 8.38 LAB RBC 3.91-5.04 M/uL Low RBC Count 2.23 LAB HGB 11.4-15.2 g/dL Low alert Hemoglobin 5.9 Result Comment: This result has been called to RENALDO MENDOZA by Nikolay Chapa on 06 28 2018 at 0214, and has been read back. LAB HCT 34.9-44.3 % Hematocrit Low 18.2 LAB MCV 79.6-97.7 fL Mean Cell Volume 81.6 LAB MCH 25.9-33.9 pg Mean Cell Hgb 26.5 LAB MCHC 31.4-35.9 g/dL Mean Cell Hgb Conc 32.4 LAB RDW 10.8-14.9 % RBC Distribution High 15.9 LAB PLT 150-393 K/uL Platelet Count Low 71 LAB MPV 8.5-12.2 fL Mean Platelet Volume 9.8 LAB NRBC 0.0-0.2 /100 WBC NUCLEATED RBC High 0.5 Performed By: #### HEMOGC, CHM7, HFP, MGO, TROP, PTPTT #### [facility] [address] [place] [address] [place] [address] CHEM 7 Collected: 06/28/2018 Status: F Source: [facility] 1:38 AM [facility] REPOSITORY TYPE CODE TESTS RESULT OUT OF REFERENCE UNITS RANGE LAB BUN 7-22 mg/dL BUN High 52 LAB NA 133-143 mmol/L Sodium 138 LAB K 3.5-5.0 mmol/L Potassium 4.3 LAB CL 98-108 mmol/L Chloride High 111 LAB CO2 22-30 mmol/L Low Carbon Dioxide 17 LAB GLUC 70-99 mg/dL Glucose High 252 LAB CREA 0.50-1.20 mg/dL High Creatinine 1.91 LAB GAP 7-17 mmol/L Anion Gap 14 LAB BC BUN/CREA Ratio 27 LAB OSMC 278-305 mOsm/kg High Osmolality 313 (Calc) LAB GFR >60 mL/min/1.73 Low sqM Est GFR,non 26 Estonian LAB GFRA >60 mL/min/1.73 Low sqM Est GFR, 32 Performed By: #### HEMOGC, CHM7, HFP, MGO, TROP, PTPTT #### [facility] [address] [place] [id number] [place] [address] [place] [address] HEPATIC FUNCTION Collected: 06/28/2018 Status: F Source: [facility] PANEL 1:38 AM [facility] REPOSITORY TYPE CODE TESTS RESULT OUT OF REFERENCE UNITS RANGE LAB ALB 3.5-5.0 g/dL Low Albumin 2.8 LAB BILD <0.3 mg/dL Bilirubin High Direct 0.8 LAB BILT <1.5 mg/dL Bilirubin High Total 2.1 LAB ALP 32-126 U/L Alkaline Phosphatase 101 LAB ALT 9-48 U/L ALT 10 LAB AST 14-40 U/L Low AST 9 LAB TP 6.4-8.3 g/dL Low Total Protein 5.1 Performed By: #### HEMOGC, CHM7, HFP, MGO, TROP, PTPTT #### [facility] [address] [place] [address] [place] [address] MAGNESIUM Collected: 06/28/2018 Status: F Source: [facility] 1:38 AM [facility] REPOSITORY TYPE CODE TESTS RESULT OUT OF REFERENCE UNITS RANGE LAB MG 1.6-2.6 mg/dL Magnesium 2.2 Performed By: #### HEMOGC, CHM7, HFP, MGO, TROP, PTPTT #### [facility] [address] [place] [address] [place] [address] TROPONIN I Collected: 06/28/2018 Status: F Source: [facility] 1:38 AM [facility] REPOSITORY TYPE CODE TESTS RESULT OUT OF REFERENCE UNITS RANGE LAB TROP <0.11 ng/mL Troponin I 0.02 Performed By: #### HEMOGC, CHM7, HFP, MGO, TROP, PTPTT #### [facility] [address] [place] [address] [address] [place] [address] PT*PTT Collected: 06/28/2018 Status: F Source: [facility] 1:38 AM [facility] REPOSITORY TYPE CODE TESTS RESULT OUT OF RANGE REFERENCE UNITS LAB PT 11.9-14.2 sec High PT 17.6 LAB INR 0.9-1.1 High INR 1.4 LAB PTT 24.0-34.3 sec PTT 30.8 Performed By: #### HEMOGC, CHM7, HFP, MGO, TROP, PTPTT #### [facility] [address] [place] [id number] [place] [address] [place] [address] STREP PNEUMONIAE Collected: 06/28/2018 Status: F Source: [facility] ANTIGEN,URINE 1:38 AM [facility] REPOSITORY TYPE CODE TESTS RESULT OUT OF REFERENCE UNITS RANGE LAB PNEUMO Negative Strep Pneumoniae Negative Antigen,urine Performed By: #### PNEUMO #### [facility] [address] [place] [address] [address] [address] LEGIONELLA URINARY Collected: 06/28/2018 Status: F Source: [facility] ANTIGEN 1:38 [facility] REPOSITORY TYPE CODE TESTS RESULT OUT OF RANGE REFERENCE UNITS LAB LEGION Negative Abnormal Legionella Bloody, Urinary Antigen cannot perform assay Result Comment: Called to and read back by RENALDO BEAVERS AT 0831 06/28/2018 Performed By: #### LEGION #### [facility] [address] [place] [address] [address] [address] Observed: 06/28/2018 Status: F Source: [facility] INFLUENZA A AND B, 1:38 AM [facility] RSV, PCR - [facility] REPOSITORY NASOPHARYNX: NOT DETECTED This test was performed using a multiplex real time PCR assay. This result does not rule out co-infections with pathogens that were not screened for by this test. Results should be used in conjun ction with other clinical and laboratory findings. NOT DETECTED NOT DETECTED Performed By: #### RVPCR #### [address] [address] C REACTIVE PROTEIN Collected: 06/28/2018 Status: F Source: [facility] 1:26 AM [facility] REPOSITORY TYPE CODE TESTS RESULT OUT OF REFERENCE UNITS RANGE LAB CRP <10.00 mg/L C High Reactive 50.80 Protein Performed By: #### CRP, ESR #### [facility] [address] [place] [address] [facility] [address] [place], [place] [address] ESR WESTERGREN Collected: 06/28/2018 Status: F Source: [facility] 1:26 AM [facility] REPOSITORY TYPE CODE TESTS RESULT OUT OF REFERENCE UNITS RANGE LAB ESR <30 mm/hr ESR Westergren 3 Performed By: #### CRP, ESR #### [facility] [address] [place] [address] [facility] [address] [place], [place] [address] *POC GLUCOSE BATTERY Collected: 06/27/2018 Status: F Source: [facility] 11:57 PM [facility] REPOSITORY TYPE CODE TESTS RESULT OUT OF REFERENCE UNITS RANGE LAB GLUP 70-99 mg/dL High Glucose (poc 189 device) Result Comment: No BRAVE per RN: PATIENT TYPE LAB PCSTYP *POC Capillary SAMPLE TYPE Blood CBC WITH DIFF ENOCH Collected: 06/27/2018 Status: F Source: [facility] 11:50 PM [facility] REPOSITORY TYPE CODE TESTS RESULT OUT OF REFERENCE UNITS RANGE LAB WBC 3.99-11.19 K/uL WBC Count 8.03 LAB RBC 3.91-5.04 M/uL Low RBC Count 2.23 LAB HGB 11.4-15.2 g/dL Low alert Hemoglobin 5.9 Result Comment: This result has been called to TALIA BROWN RN by Kim Hart on 06 28 2018 at 0020, and has been read back. LAB HCT 34.9-44.3 % Hematocrit 18.4 Low LAB MCV 79.6-97.7 fL Mean Cell 82.5 Volume LAB MCH 25.9-33.9 pg Mean Cell 26.5 Hgb LAB MCHC 31.4-35.9 g/dL Mean Cell 32.1 Hgb Conc LAB RDW 10.8-14.9 % RBC 16.0 High Distribution LAB PLT 150-393 K/uL Platelet 73 Low Count LAB MPV 8.5-12.2 fL Mean 10.3 Platelet Volume LAB NRBC 0.0-0.2 /100 WBC NUCLEATED 0.4 High RBC LAB DTYPE Electronic DIFFERENTIAL TYPE Differential LAB IGRE % IMMATURE 0.5 GRANS % LAB SEGS % NEUTROPHIL 74.3 SEGMENTED LAB LYM % LYMPHOCYTE 12.3 % LAB MON % MONOCYTE % 11.6 LAB EOS % *EOSINOPHIL 1.2 % LAB BASO % BASOPHIL % 0.1 LAB IGABS 0.00-0.08 K/uL IMMATURE 0.04 GRANS ABSOLUTE LAB SBANS 1.64-7.28 K/uL SEGS + 5.96 Bands,Absolute LAB ALYM 1.16-3.51 K/uL Abs Lymph 0.99 Low LAB AMONO 0.22-0.87 K/uL Abs Laurel 0.93 High LAB AEOS 0.00-0.42 K/uL Abs Eos 0.10 LAB ABASO 0.00-0.15 K/uL Abs Baso <0.04 Performed By: #### PEDRO #### [facility], [facility] [address] [place] [address] BASIC METABOLIC Collected: 06/27/2018 Status: F Source: [facility] PANEL-CHRI 11:50 PM [facility] REPOSITORY TYPE CODE TESTS RESULT OUT OF REFERENCE UNITS RANGE LAB BUN 7-22 mg/dL BUN High 55 LAB CREA 0.50-1.20 mg/dL High Creatinine 1.90 LAB NA 133-143 mmol/L Sodium 134 LAB K 3.5-5.0 mmol/L Potassium 4.1 LAB CL 98-108 mmol/L Chloride 108 LAB CO2 22-30 mmol/L Low Carbon Dioxide 17 LAB GLUC 70-99 mg/dL Glucose High 209 LAB CA 8.6-10.5 mg/dL Low Calcium 8.0 LAB GAP 7-17 mmol/L Anion Gap 13 LAB GFR >60 mL/min/1.73 Low sqM Est GFR,non 27 Estonian LAB GFRA >60 mL/min/1.73 Low sqM Est GFR, 32 Performed By: #### PEDRO #### [facility], [facility] [address] [place] [address] TROPONIN - CHRI Collected: 06/27/2018 Status: F Source: [facility] 11:05 PM [facility] REPOSITORY TYPE CODE TESTS RESULT OUT OF REFERENCE UNITS RANGE LAB TROP <0.11 ng/mL Troponin I 0.02 CT ABDOMEN/PELVIS WITHOUT Observed: 06/27/2018 Status: F Source: [facility] 8:50 PM [facility] REPOSITORY EXAM: CT ABDOMEN/PELVIS WITHOUT CONTRAST, 06/27/2018 19:01 PM COMPARISON: CT abdomen and pelvis, 04/16/2018 CLINICAL INDICATIONS: hematuria; TECHNIQUE: Helical axial images of the abdomen and pelvis were performed from the domes of the diaphragm to the ischial tuberosities without the administration of intravenous contrast. Oral contrast was administered. Coronal 2 mm reconstructions were also made. CONTRAST: No contrast was given. FINDINGS: Lung Bases: There is a 6 mm nodule at the right lung base (series 3, image 9) which does not appear significant changed in size dating back to 04/17/2017. A few lymph nodes there is a more prominent in the cardiophrenic region (series 3, image 9). The lower mediastinal structures are otherwise unremarkable. ABDOMEN Limited evaluation of the intra-abdominal viscera due to the lack of IV contrast. Liver: The liver is nodular in contour with hypertrophy of the left hepatic lobe and caudate, suggestive of cirrhosis. There are numerous ill-defined hypodense lesions scattered throughout the liver parenchyma, which are difficult to measure on this exam without contrast and were better evaluated on the recent MRI on 06/05/2018. However, in general, there are new and enlarging lesions in comparison to the prior CT. There is recanalization of the paraumbilical vein with numerous upper abdominal collaterals. Biliary/Gallbladder: The gallbladder surgically absent. The biliary tree is nondilated. Spleen: Stable splenomegaly, with the craniocaudal length measuring up to 20.1 cm. Pancreas: Pancreas is normal. There is no evidence of pancreatic mass or peripancreatic fluid. Kidneys: Kidneys are normal in size. There are no stones or hydronephrosis. Adrenals: Adrenal glands are unremarkable. Retroperitoneal/Lymph Nodes/Vasculature: There are numerous prominent lymph nodes scattered throughout the retroperitoneal region and in the yaquelin hepatis, which appear similar to the prior exam and are nonspecific in the setting of liver disease. Previously measured gastrohepatic lymph node on MRI is stable in size, measuring 1.4 x 0.9 cm (series 3, image 28). Scattered atherosclerotic calcifications of the abdominal aorta and its major branches. Recanalization of the periumbilical vein and numerous collaterals in the upper abdomen. Gastrointestinal/Mesentery: The bowel loops are non-dilated without wall thickening or mass. PELVIS Bladder: Interval development of a hyperdense region along the posterior bladder wall (series 3, image 129) which measures 5.0 x 1.6 cm, which involves the region of the right ureter. Genital: The uterus is absent. No adnexal masses. Other: Small fat-containing umbilical hernia. Mild subcutaneous edema. Bony Structures: Visualized bony structures are consistent with the patient's age. Enhancing lesions of the left femur seen on prior MRI are not well visualized on this exam. IMPRESSION: 1. Hyperdense material along the posterior bladder wall, which given history of hematuria, likely represents hemorrhagic debris, not present on the prior study performed 04/16/2018. No renal/ureteral stones or bladder calculi. 2. Numerous hypodense lesions scattered throughout the liver parenchyma, some of which appear new or enlarged from the prior CT, concerning for metastatic disease. These lesions are not well evaluated on this noncontrast CT examination and were described in detail on the recent MRI of the abdomen. 3. Numerous prominent lymph nodes in the retroperitoneal and yaquelin hepatis region, which are indeterminate. 4. Cirrhosis with sequelae of portal hypertension including splenomegaly. 5. Stable 6 mm nodule at the right lung base. I personally viewed and interpreted these images and I have reviewed and approved this report. /HCT - CHRI Collected: 06/27/2018 Status: F Source: [facility] 7:36 PM [facility] REPOSITORY TYPE CODE TESTS RESULT OUT OF REFERENCE UNITS RANGE LAB HGB 11.4-15.2 g/dL Low alert Hemoglobin 5.1 Result Comment: This result has been called to URMILA CLAROS RN by Roseanna Velásquez on 06 27 2018 at 2005, and has been read back. LAB HCT 34.9-44.3 % Hematocrit Low 15.9 Performed By: #### ALONZO ###Kannan Connell [facility], [facility] [address] [place], [place] [address] TROPONIN - CHRI Collected: 06/27/2018 Status: F Source: [facility] 7:36 PM [facility] REPOSITORY TYPE CODE TESTS RESULT OUT OF REFERENCE UNITS RANGE LAB TROP <0.11 ng/mL Troponin I 0.02 Performed By: #### ALONZO ###Kannan Connell [facility], [facility] [address] [place], [place] [address] Observed: 06/27/2018 Status: F Source: [facility] BLOOD:ROUTINE II 5:32 PM [facility] REPOSITORY SOURCE: BLOOD, PERIPHERAL: Right Antecubital RESULT: NO GROWTH DAY 5 OF 5 REPORT STATUS: 07/02/2018 FINAL Performed By: #### FAST2 #### [address] [address] Blood Cultures processed at: [facility] XR FOREARM LEFT Observed: 06/27/2018 Status: F Source: [facility] 5:10 PM [facility] REPOSITORY EXAM: XR WRIST LEFT 4 VIEWS, XR FOREARM LEFT 2 VIEWS,, 06/27/2018 16:51 PM COMPARISON: No prior studies available for comparison. 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 No radiopaque foreign body or obvious soft tissue gas. The osseous structures appear grossly intact. No focal bone lysis. Carpal alignment appears anatomic. No erosions. Left forearm, 2 views: There is soft tissue swelling in the distal aspect of the left forearm, particularly laterally and dorsally. No soft tissue gas. No bone lysis or periosteal reactive changes. There is an intravenous catheter in the anterior aspect of the elbow. IMPRESSION: 1. Diffuse soft tissue swelling, which may represent cellulitis. No soft tissue gas. 2. No focal bone lysis or periostitis. If clinically indicated, further evaluation by means of MRI may be considered for direct inspection of the bone marrow. WRIST LEFT 3 Observed: 06/27/2018 Status: F Source: [facility] 5:10 PM [facility] REPOSITORY EXAM: XR WRIST LEFT 4 VIEWS, XR FOREARM LEFT 2 VIEWS,, 06/27/2018 16:51 PM COMPARISON: No prior studies available for comparison. 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 No radiopaque foreign body or obvious soft tissue gas. The osseous structures appear grossly intact. No focal bone lysis. Carpal alignment appears anatomic. No erosions. Left forearm, 2 views: There is soft tissue swelling in the distal aspect of the left forearm, particularly laterally and dorsally. No soft tissue gas. No bone lysis or periosteal reactive changes. There is an intravenous catheter in the anterior aspect of the elbow. IMPRESSION: 1. Diffuse soft tissue swelling, which may represent cellulitis. No soft tissue gas. 2. No focal bone lysis or periostitis. If clinically indicated, further evaluation by means of MRI may be considered for direct inspection of the bone marrow. ALYSIS W REFLEX Collected: 06/27/2018 Status: F Source: [facility] CULTURE -CHRI 4:31 PM [facility] REPOSITORY TYPE CODE TESTS RESULT OUT OF RANGE REFERENCE UNITS LAB [employer] Clear Appearance Turbid Abnormal Urine LAB SPGR 1.001-1.035 Specific 1.020 [place] urine LAB UGL Negative mg/dL Glucose Negative Urine LAB UKET Negative Ketones Negative Urine LAB UBLD Negative Blood Urine Large Abnormal LAB UPH 5.0-7.0 pH Urine 5.5 LAB UPR Negative mg/dL Protein >=300 Abnormal Urine LAB UNTR Negative Nitrites POSITIVE Abnormal Urine LAB ULEU Negative Leukocyte Negative Esterase LAB COLR Yellow Color Red - Abnormal Result of urine dipstick analysis may be inaccurate due to color interference. Clinical correlation is recommended. LAB UURO <2.0 EU/dL 1.0 Urobilinogen urine LAB UWBC 0-5 /HPF WBC Urine 0-5 LAB URBC 0-2 /HPF RBC Urine >20 Abnormal LAB BACT Absent Bacteria Trace Abnormal LAB EPIS /HPF Squamous None Epithelial LAB UCOM COMMENT None URINE Performed By: #### [id number] #### [facility] [address] [place] [address] [facility] [address] [place], [place] [address] Observed: 06/27/2018 Status: F Source: [facility] URINE CULTURE -[facility] 4:31 PM [facility] REPOSITORY SOURCE: URINE-CLEAN CATCH: RESULT: NO SIGNIFICANT GROWTH. Routine cultures are evaluated for significant uropathogens >10,000 CFU/mL. REPORT STATUS: 06/29/2018 FINAL Performed By: #### UR #### [facility] [address] [place] [address] Blood Cultures processed at: [facility] Observed: 06/27/2018 Status: F Source: [facility] BLOOD:ROUTINE I 4:15 PM [facility] REPOSITORY SOURCE: BLOOD, PERIPHERAL: Left Antecubital RESULT: NO GROWTH DAY 5 OF 5 REPORT STATUS: 07/02/2018 FINAL Performed By: #### FAST #### [place] [address] Blood Cultures processed at: [facility] Observed: 06/27/2018 Status: F Source: [facility] TYPE AND CROSS 4:12 PM [facility] REPOSITORY ABO/RH(D): O POSITIVE ANTIBODY SCREEN: NEGATIVE UNIT NUMBER: [id number] BLOOD COMPONENT TYPE: Red Cells, Leukoreduced_[id number] STATUS OF UNIT: Issued, Final TRANSFUSION STATUS: OK TO TRANSFUSE CROSSMATCH RESULT: Electronically Compatible UNIT NUMBER: [id number] BLOOD COMPONENT TYPE: Red Cells, Leukoreduced_[id number] STATUS OF UNIT: Issued, Final TRANSFUSION STATUS: OK TO TRANSFUSE CROSSMATCH RESULT: Electronically Compatible UNIT NUMBER: [id number] BLOOD COMPONENT TYPE: Red Cells, Leukoreduced_[id number] STATUS OF UNIT: Issued, Final TRANSFUSION STATUS: OK TO TRANSFUSE CROSSMATCH RESULT: Electronically Compatible UNIT NUMBER: [id number] BLOOD COMPONENT TYPE: Apheresis Red Cells, Leukoreduced_[id number] STATUS OF UNIT: Issued, Final TRANSFUSION STATUS: OK TO TRANSFUSE CROSSMATCH RESULT: Electronically Compatible UNIT NUMBER: [id number] BLOOD COMPONENT TYPE: Red Cells, Leukoreduced_[id number] STATUS OF UNIT: Issued, Final TRANSFUSION STATUS: OK TO TRANSFUSE CROSSMATCH RESULT: Electronically Compatible UNIT NUMBER: [id number] BLOOD COMPONENT TYPE: Red Cells, Leukoreduced_[id number] STATUS OF UNIT: Issued, Final TRANSFUSION STATUS: OK TO TRANSFUSE CROSSMATCH RESULT: Electronically Compatible UNIT NUMBER: [id number] BLOOD COMPONENT TYPE: Apheresis Red Cells, Leukoreduced_[id number] STATUS OF UNIT: Issued, Final TRANSFUSION STATUS: OK TO TRANSFUSE CROSSMATCH RESULT: Electronically Compatible Performed By: #### XM #### [facility] [address] [place] [address] [place] [address] PT*PTT - CHRI Collected: 06/27/2018 Status: F Source: [facility] 3:32 PM [facility] REPOSITORY TYPE CODE TESTS RESULT OUT OF RANGE REFERENCE UNITS LAB PT 11.9-14.2 sec High PT 16.7 LAB INR 0.9-1.1 High INR 1.4 LAB PTT 24.0-34.3 sec PTT 29.8 Performed By: #### CBCDFJ #### [facility], [facility] [address] [place] [address] CBC WITH DIFF ENOCH Collected: 06/27/2018 Status: F Source: [facility] 3:32 PM [facility] REPOSITORY TYPE CODE TESTS RESULT OUT OF REFERENCE UNITS RANGE LAB WBC 3.99-11.19 K/uL WBC High Count 11.74 LAB RBC 3.91-5.04 M/uL Low RBC Count 1.93 LAB HGB 11.4-15.2 g/dL Low alert Hemoglobin 4.9 Result Comment: This result has been called to URMILA KERN RN by Roseanna Velásquez on 06 27 2018 at 1612, and has been read back. LAB HCT 34.9-44.3 % Hematocrit 15.8 Low LAB MCV 79.6-97.7 fL Mean Cell 81.9 Volume LAB MCH 25.9-33.9 pg Mean Cell 25.4 Low Hgb LAB MCHC 31.4-35.9 g/dL Mean Cell 31.0 Low Hgb Conc LAB RDW 10.8-14.9 % RBC 16.3 High Distribution LAB PLT 150-393 K/uL Platelet 96 Low Count LAB MPV 8.5-12.2 fL Mean 10.2 Platelet Volume LAB NRBC 0.0-0.2 /100 WBC NUCLEATED 0.3 High RBC LAB DTYPE Electronic DIFFERENTIAL TYPE Differential LAB IGRE % IMMATURE 0.9 GRANS % LAB SEGS % NEUTROPHIL 82.3 SEGMENTED LAB LYM % LYMPHOCYTE 6.6 % LAB MON % MONOCYTE % 9.4 LAB EOS % *EOSINOPHIL 0.6 % LAB BASO % BASOPHIL % 0.2 LAB IGABS 0.00-0.08 K/uL IMMATURE 0.10 High GRANS ABSOLUTE LAB SBANS 1.64-7.28 K/uL SEGS + 9.67 High Bands,Absolute LAB ALYM 1.16-3.51 K/uL Abs Lymph 0.78 Low LAB AMONO 0.22-0.87 K/uL Abs Laurel 1.10 High LAB AEOS 0.00-0.42 K/uL Abs Eos 0.07 LAB ABASO 0.00-0.15 K/uL Abs Baso <0.04 Performed By: #### CBCDFJ #### [facility], [facility] [address] [place], [place] [address] BASIC METABOLIC Collected: 06/27/2018 Status: F Source: [facility] PANEL-CHRI 3:32 PM [facility] REPOSITORY TYPE CODE TESTS RESULT OUT OF REFERENCE UNITS RANGE LAB BUN 7-22 mg/dL BUN High 54 LAB CREA 0.50-1.20 mg/dL High Creatinine 1.99 LAB NA 133-143 mmol/L Low Sodium 132 LAB K 3.5-5.0 mmol/L Potassium 4.4 LAB CL 98-108 mmol/L Chloride 105 LAB CO2 22-30 mmol/L Low Carbon Dioxide 16 LAB GLUC 70-99 mg/dL Glucose High 323 LAB CA 8.6-10.5 mg/dL Low Calcium 8.3 LAB GAP 7-17 mmol/L Anion Gap 15 LAB GFR >60 mL/min/1.73 Low sqM Est GFR,non 25 Estonian LAB GFRA >60 mL/min/1.73 Low sqM Est GFR, 31 Performed By: #### PEDRO #### [facility], [facility] [address] [place] [address] HEPATIC FUNCTIONS - Collected: 06/27/2018 Status: F Source: [facility] 3:32 PM [facility] REPOSITORY TYPE CODE TESTS RESULT OUT OF REFERENCE UNITS RANGE LAB AST 14-40 U/L Low AST 13 LAB ALT 9-48 U/L ALT 10 LAB ALP 32-126 U/L Alkaline Phosphatase 118 LAB ALB 3.5-5.0 g/dL Low Albumin 2.9 LAB BILD <0.3 mg/dL Bilirubin High Direct 0.7 LAB BILT <1.5 mg/dL Bilirubin High Total 1.7 LAB TP 6.4-8.3 g/dL Low Total Protein 5.7 Performed By: #### ISSACJ #### [facility], [facility] [address] [place] [address] [place] PHOSPHATE - CHRI Collected: 06/27/2018 Status: F Source: [facility] 3:32 PM [facility] REPOSITORY TYPE CODE TESTS RESULT OUT OF REFERENCE UNITS RANGE LAB IP 2.2-4.6 mg/dL Inorg Phosphate 3.6 Performed By: #### ISSACJ #### [facility], [facility] [address] [place] [address] MAGNESIUM - CHRI Collected: 06/27/2018 Status: F Source: [facility] 3:32 PM [facility] REPOSITORY TYPE CODE TESTS RESULT OUT OF REFERENCE UNITS RANGE LAB MG 1.6-2.6 mg/dL Magnesium 2.2 Performed By: #### ISSACJ #### [place], [facility] [address] [place] [address] TROPONIN - CHRI Collected: 06/27/2018 Status: F Source: [facility] 3:32 PM [facility] REPOSITORY TYPE CODE TESTS RESULT OUT OF REFERENCE UNITS RANGE LAB TROP <0.11 ng/mL Troponin I 0.02 B-TYPE NATRIURETIC Collected: 06/27/2018 Status: F Source: [facility] PEPTIDE - CHRI 3:32 PM [facility] REPOSITORY TYPE CODE TESTS RESULT OUT OF REFERENCE UNITS RANGE LAB BNP 0-100 pg/mL B-Type High Natriuretic 343 Peptide XR HIP RIGHT 2 Observed: 06/22/2018 Status: F Source: [facility] 2:02 PM [facility] REPOSITORY EXAM: XR HIP RIGHT 3 VIEWS,, 06/22/2018 13:45 PM COMPARISON: MRI abdomen/pelvis dated 06/05/2018 CLINICAL INDICATIONS: bladder cancer. Bone lesions on MRI. RELEVANT CLINICAL HISTORY: Z85.51:Hx of bladder cancer C79.51:Metastatic cancer to bone FINDINGS: 3 images obtained. Soft Tissue: There is no obvious soft tissue swelling. Bone: No acute osseous abnormality is identified. Numerous known osseous lesions better visualized on the MRI. No definite fractures are identified. Hip: Minor degenerative changes at the right hip manifested as mils superior joint space narrowing. IMPRESSION: Known osseous lesions better seen on recent MRI, difficult to appreciate on the radiographs. No definite fractures. FEMUR LEFT Observed: 06/22/2018 Status: F Source: [facility] 1:52 PM [facility] REPOSITORY EXAM: XR FEMUR LEFT 2 views, 06/22/2018 13:45 PM COMPARISON: MRI abdomen/pelvis dated 06/05/2018 CLINICAL INDICATIONS: bladder cancer. Bone lesions on MRI. RELEVANT CLINICAL HISTORY: Z85.51:Hx of bladder cancer C79.51:Metastatic cancer to bone FINDINGS: 4 images obtained. Soft Tissue: There is no obvious soft tissue swelling. Atheromatous vascular calcifications. Bone: No acute osseous abnormality. Osseous lesions involving the proximal left femur seen on recent MRI abdomen/pelvis dated the visualized on the current study. Joint: The joint space narrowing and subarticular sclerosis consistent with mild osteoarthritis. IMPRESSION: Osseous lesions within the proximal left femur seen on recent MRI abdomen/pelvis dated the visualized on the radiograph. No acute osseous abnormality. Mild osteoarthritis at the left hip joint. *PTT - CHRI Collected: 06/22/2018 Status: F Source: [facility] 12:16 PM [facility] HOSPITAL REPOSITORY TYPE CODE TESTS RESULT OUT OF RANGE REFERENCE UNITS LAB PT 11.9-14.2 sec High PT 15.4 LAB INR 0.9-1.1 High INR 1.2 LAB PTT 24.0-34.3 sec PTT 31.5 Performed By: #### CBCDFJ #### [facility] [address] [place] [id number] #### AFPTMR #### [facility] [address] [place] [address] [address] [place] [address] CMPN WITHOUT GLUCOSE Collected: 06/22/2018 Status: F Source: [facility] 12:16 PM [facility] REPOSITORY TYPE CODE TESTS RESULT OUT OF REFERENCE UNITS RANGE LAB NA 133-143 mmol/L Sodium 137 LAB K 3.5-5.0 mmol/L Potassium 4.6 LAB CL 98-108 mmol/L Chloride High 109 LAB BUN 7-22 mg/dL BUN High 41 LAB CREA 0.50-1.20 mg/dL Creatinine High 1.67 LAB CA 8.6-10.5 mg/dL Calcium 8.8 LAB ALP 32-126 U/L Alkaline Phosphatase 126 LAB AST 14-40 U/L AST 18 LAB TP 6.4-8.3 g/dL Low Total Protein 6.3 LAB ALB 3.5-5.0 g/dL Low Albumin 3.3 LAB BILT <1.5 mg/dL Bilirubin High Total 1.6 LAB CO2 22-30 mmol/L Low Carbon Dioxide 21 LAB GAP 7-17 mmol/L Anion Gap 12 LAB ALT 9-48 U/L ALT 12 LAB GFR >60 mL/min/1.7 Low 3sqM Est GFR,non 31 LAB GFRA >60 mL/min/1.7 Low 3sqM Est GFR, 37 Performed By: #### CBCDFJ #### Enoch CCCIsrrael, [facility] [address] [place] [id number] #### AFPTMR #### [facility] [address] [place] [id number] [place] [address] [place] [id number] LD - CHRI Collected: 06/22/2018 Status: F Source: [facility] 12:16 PM [facility] REPOSITORY TYPE CODE TESTS RESULT OUT OF RANGE REFERENCE UNITS LAB LD 100-190 U/L High LD Total 239 Performed By: #### CBCDFJ #### Enoch CCCT, [facility] [address] [place], [place] [address] #### AFPTMR #### [facility] [address] [place] [address] [facility] [address] [place], [place] [address] CBC WITH DIFF ENOCH Collected: 06/22/2018 Status: F Source: [facility] 12:16 PM [facility] REPOSITORY TYPE CODE TESTS RESULT OUT OF REFERENCE UNITS RANGE LAB WBC 3.99-11.19 K/uL WBC Count 4.58 LAB RBC 3.91-5.04 M/uL Low RBC Count 2.82 LAB HGB 11.4-15.2 g/dL Low Hemoglobin 7.5 LAB HCT 34.9-44.3 % Low Hematocrit 23.1 LAB MCV 79.6-97.7 fL Mean Cell Volume 81.9 LAB MCH 25.9-33.9 pg Mean Cell Hgb 26.6 LAB MCHC 31.4-35.9 g/dL Mean Cell Hgb Conc 32.5 LAB RDW 10.8-14.9 % RBC High Distribution 16.0 LAB PLT 150-393 K/uL Low Platelet Count 91 Result Comment: Automated platelet count confirmed by manual slide review LAB MPV 8.5-12.2 fL Mean Platelet 9.9 Volume LAB NRBC 0.0-0.2 /100 WBC NUCLEATED RBC 0.0 LAB DTYPE DIFFERENTIAL Electronic TYPE Differential LAB IGRE % IMMATURE GRANS 0.4 % LAB SEGS % NEUTROPHIL 62.5 SEGMENTED LAB LYM % LYMPHOCYTE % 18.1 LAB MON % MONOCYTE % 10.7 LAB EOS % EOSINOPHIL % 7.4 LAB BASO % BASOPHIL % 0.9 LAB IGABS 0.00-0.08 K/uL IMMATURE GRANS 0.02 ABSOLUTE LAB SBANS 1.64-7.28 K/uL SEGS + 2.86 Bands,Absolute LAB ALYM 1.16-3.51 K/uL Abs Lymph 0.83 Low LAB AMONO 0.22-0.87 K/uL Abs Laurel 0.49 LAB AEOS 0.00-0.42 K/uL Abs Eos 0.34 LAB ABASO 0.00-0.15 K/uL Abs Baso 0.04 Performed By: #### CBCDFJ #### Enoch [facility] [address] [place] [address] #### AFPTMR #### [facility] [address] [place] [id number] [facility] [address] [place] [address]353 ALPHAFETOPROTEIN TUMOR Collected: 06/22/2018 Status: F Source: [facility] 12:16 PM [facility] REPOSITORY TYPE CODE TESTS RESULT OUT OF REFERENCE UNITS RANGE LAB AFPTMR <8.5 ng/mL Alphafetoprotein Tumor Marker 2.7 Performed By: #### CBCDFJ #### Enoch [facility] [address] [place] [address] #### AFPTMR #### [facility] [address] [place] [id number] [facility] [address] [place] [id number] U DRUG SCREEN Collected: 06/20/2018 Status: F Source: [facility] 11:32 AM [facility] REPOSITORY TYPE CODE TESTS RESULT OUT OF RANGE REFERENCE UNITS LAB 84856922(L OINC) U Normal Amph Scr NEGATIVE LAB 75346472(L OINC) U Normal Jen Scr NEGATIVE LAB 47113212(L OINC) U Normal Benzodia Scr POSITIVE LAB 10387822(L OINC) U Normal Cannab Scr NEGATIVE LAB 68763587(L OINC) U Normal Cocaine Scr NEGATIVE LAB 18507650(L OINC) U Normal Opiate Scr POSITIVE LAB 91966165(L OINC) U Normal PCP Scr NEGATIVE Performed By: #### [id number] #### DL [facility] [place] [address] OFFICE VISIT Observed: 06/19/2018 Status: UNK Source: [facility] (NEURO-GENERAL) 12:00 PM HOSPITALS REPOSITORY Chief Complaint Sleep apnea Neurologic Evaluation. New patient visit former . Patient request new C-PAP machine. Patient states she has sleep apnea. DME Angelica History of Present Illness The patient states that she has a history of loud snoring. She feels that at times she snores so loudly that she woke herself up. No one has seen her stop breathing at night. She states that she was up a lot during the night. The patient states that she has a history of falling asleep while watching TV but not reading or driving. The patient states that prior to CPAP she does not feel that his sleep is refreshing. The patient states that about 7 or 8 years ago she had a diagnostic polysomnogram and subsequently had a CPAP titration study done. The patient is compliant with her CPAP but states that recently she rios s not been using her CPAP as her machine is broken. She wishes to get a new one. The patient states that she will have lights out at 9 PM and it will take her about a half an hour to fall sleep. She will wake for the day at about 6 AM to 7 AM. She feels that when she uses CPAP her sleep is refreshing. I did review the patient's OARRS report. Review of Systems Constitutional: no fever, no unexplained weight gain and no unexplained weight loss. Eyes: no blurred vision and no diplopia. ENT: no hearing loss, no tinnitus, no earache, no sore throat, no hoarseness and no swollen glands in the neck. Cardiovascular: no chest pain, no shortness of breath, no palpitations and no lower extremity edema. Respiratory: no chronic cough, not coughing up sputum and no wheezing that is consistent with asthma. Gastrointestinal: no abdominal pain, no nausea, no vomiting, no diarrhea, no constipation and no bloody stools. Genitourinary: no urinary frequency, no dysuria, no burning sensation during urination and no hematuria. Musculoskeletal: no arthralgias, no joint stiffness, no muscle weakness, no back pain and no difficulty walking. Skin: no rashes, no change in skin color and pigmentation, no skin lesions and no skin lumps. Neurological: no headaches, no dizziness, no seizures, no tingling, no numbness and no limb weakness. Psychiatric: no confusion, no memory lapses or loss, no depression and no sleep disturbances. Endocrine: no excessive thirst, no cold intolerance, no heat intolerance, no dry skin and no increased urinary frequency. Hematologic/Lymphatic: is not slow to heal, does not bleed easily, does not bruise easily, no thrombophlebitis and no anemia. Past Medical History History of Depression with anxiety (300.4) (F41.8) History of anemia (V12.3) (Z86.2) History of ascites (V13.89) (Z87.898) History of cellulitis (V13.3) (Z87.2) History of chronic kidney disease (V13.09) (Z87.448) History of diabetes mellitus (V12.29) (Z86.39) History of hypertension (V12.59) (Z86.79) History of insomnia (V13.89) (Z87.898) History of malignant neoplasm of bladder (V10.51) (Z85.51) History of neuropathy (V12.49) (Z86.69) History of obesity (V12.29) (Z86.39) History of sepsis (V12.09) (Z86.19) History of sleep apnea (V13.89) (Z86.69) History of splenomegaly (V12.3) (Z87.898) History of Hyperammonemia (270.6) (E72.20) History of RYAN (nonalcoholic steatohepatitis) (571.8) (K75.81) Surgical History History of Appendectomy History of Cholecystectomy History of Colonoscopy (Fiberoptic) History of Diagnostic Esophagogastroduodenoscopy History of Gastric Variceal Banding History of Hysterectomy History of Incision And Drainage Of Pilonidal Cyst History of Tubal Ligation Family History Family history of heart failure (V17.49) (Z82.49) Family history of cerebrovascular accident (CVA) (V17.1) (Z82.3) Family history of heart failure (V17.49) (Z82.49) Family history of malignant neoplasm of kidney (V16.51) (Z80.51) Family history of malignant neoplasm of breast (V16.3) (Z80.3) Social History Ex-cigarette smoker (V15.82) (Z87.891) Allergies IV Contrast Dye Recorded By: Crys Chung; 05/19/2018 10:07:21 AM Current Meds Medication NameInstructionReason Famotidine 20 MG Oral TabletTAKE 1 TABLET DAILY DIRECTED.PMH: Depression with anxiety Fluconazole 200 MG Oral TabletTAKE 1 TABLET TWICE DAILY.PMH: Depression with anxiety Lantus 100 UNIT/ML Subcutaneous SolutionINJECT SUBCUTANEOUSLY DIRECTED.PMH: Depression with anxiety Klemme 5-325 MG Oral TabletTAKE 1 TABLET EVERY 6 HOURS NEEDED.PMH: Depression with anxiety NovoLOG FlexPen 100 UNIT/ML Subcutaneous Solution Pen-injectorINJECT SUBCUTANEOUSLY DIRECTED.PMH: Depression with anxiety Zofran 4 MG Oral TabletTAKE 1 TABLET Every 8 hoursPMH: Depression with anxiety Zoloft 100 MG Oral TabletTAKE 1 AND 1/2 TABLETS DAILY.PMH: Depression with anxiety Zolpidem Tartrate 5 MG Oral TabletTAKE 1 TABLET AT BEDTIME.PMH: Depression with anxiety Bumetanide 1 MG Oral TabletTAKE 0.5 TABLET Daily HumaLOG KwikPen 100 UNIT/ML SOLNUSE DIRECTED. Spironolactone 50 MG Oral TabletTAKE 1 TABLET DAILY. Zinc Sulfate 220 (50 Zn) MG Oral CapsuleTAKE 1 CAPSULE TWICE DAILY. Physical Exam Constitutional: General appearance: no acute distress The patient has a Mallampati class 2 airway. Auscultation of Heart: Regular rate and rhythm, no murmurs, normal S1 and S2. Carotid Arteries: Intact without any bruits Peripheral Vascular Exam: Abnormal. The patient has minimal chronic venous stasis changes but no swelling was noted. Mental Status:. The patient was in no distress, alert, interactive and cooperative. Affect is appropriate. Orientation: oriented to person, oriented to place, oriented to time. Memory: recent memory intact, remote memory intact. Attention: normal attention span, normal concentrating ability. Language: normal comprehension, no difficulty naming common objects. Fund of knowledge: Patient displays adequate knowledge of current events, adequate fund of knowledge regarding past history, adequate fund of knowledge regarding vocabulary. Eyes: The ophthalmoscopic examination was normal. The fundi were well visualized with normal disc margins, clear vessels and vascular pulsations. No disc edema. The cup/disk ratio was not enlarged. No h emorrhages or exudates were present in the posterior segments that were visualized. Cranial nerve II: Visual mata full to confrontation. Cranial nerves III, IV, and : Pupils round, equally reactive to light. Lids symmetric; no ptosis. EOMs intact. No nystagmus. Cranial Nerve V: Facial sensation intact bilaterally. Cranial nerve VII: Normal and symmetric facial strength. Cranial nerve VIII: Hearing intact to finger rub. Cranial nerves IX and X: Palate elevates symmetrically. Cranial nerve XI: Normal strength of shoulder shrug and neck turning. Cranial nerve XII: Tongue midline with normal bulk and strength; no fasciculations. Motor: Motor exam was normal. Muscle bulk was normal in both upper and lower extremities. Muscle tone was normal in both upper and lower extremities. Muscle strength was 5/5 in distal and proximal musc les in both upper and lower extremities. No fasciculations, tremor or other abnormal movements were present. Deep Tendon Reflexes: left biceps 2+, right biceps 2+, left triceps 2+, right triceps 2+, left brachioradialis 2+, right brachioradialis 2+, left patella 1+, right patella 1+, left ankle jerk 1+, right ankle jerk 1+ Plantar Reflex: Toes downgoing to plantar stimulation on the left. Toes downgoing to plantar stimulation on the right. Sensory Exam: Sensory Exam was normal. In both upper and lower extremities, sensation was intact to light touch;sharp/dull, vibration and joint position sense. Coordination: coordination was normal. In both upper extremities, [id number] was intact without dysmetria or overshoot. In both lower extremities, [id number]-akdy was intact. Rapid alternating move ments were intact in both upper and lower extremities. Gait: Abnormal The patient has a mildly unsteady gait and she uses a walker to ambulate. Diagnoses/Problems Sleep apnea (780.57) (G47.30) Insomnia (780.52) (G47.00) Orders Insomnia Renew: Zolpidem Tartrate 5 MG Oral Tablet; TAKE 1 TABLET AT BEDTIME Rx By: Aaron Narayan; Dispense: 30 Days ; #:30 Tablet; Refill: 5;For: Insomnia; HARMEET = N; Print Rx Sleep apnea Sleep Study/Polysomnography, 6 years of age and over; Status:Hold For - Scheduling; Requested for:19Jun2018; Perform:Non Facility; Order Comments:The patient needs a split-night study done.The patient needs to have her sleep study done at [facility].; Due:[id number];Ordered; For:Sleep apnea; Ordered By:Aaron Narayan; Precautions : Diabetes Indications : Daytime sleepiness/fatigue/tiredness If test is abnormal, schedule patient consult with Sleep Medicine? : Yes Study Type : SPLIT - Diagnostic with Treatment Provider Impressions The patient has long history of snoring and excessive daytime sleepiness. She was diagnosed with sleep apnea and is been compliant with her CPAP but the machine is no longer working. Her neurological ex amination is mildly abnormal and noted above. The patient has a mildly unsteady gait and may have an underlying polyneuropathy from diabetes. Patient Discussion/Summary The patient needs a split-night study and after I get the results back I will order her optimal CPAP pressure and a new machine.. The patient does need to use her CPAP every night and all night. The patient needs to improve her sleep hygiene, get at least 8 hours sleep a night, avoid the supine position and lose weight to her ideal body weight. The patient should not drive while drowsy. The patient should continue to use a walker to ambulate. The patient does need tight blood sugar control. Please consider a neurology consultation if you feel that it is clinically indicated. The patient should continue her Ambien at the current dose. The patient needs a urine drug screen. I discussed all these issues in detail with the patient and answered all of her questions. The patient will follow up with me in one year. 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 PET/CT 11/29/2016. TECHNIQUE: 3T. Axial and coronal Single-Shot Fast Spin Echo T2-weighted images. Axial T1-weighted images, in and [id number], with and without fat suppression, and pre and postcontrast. The postcontrast images were obtained in the arterial, portal venous, and hepatic venous phases. Additional T1-weighted fat-suppressed postcontrast and equilibrium images were obtained in the axial and coronal planes. Diffusion-weighted imaging was also performed. FINDINGS: Lung bases: Please see separate recent CT chest 04/16/2018. Abdomen: Liver: Cirrhotic morphology of the liver demonstrated. There are numerous slightly T2 hyperintense lesions throughout the liver present. Lesions are slightly T1 hypointense precontrast. Postcontrast lesions demonstrate rim enhancement with central hypointensity. Lesions are present throughout the right and left hepatic lobes, much more conspicuous than on CT. The largest in the left lobe is present in the left lateral segment, series 23 image 23 measuring 2.5 x 2.9 cm. Largest in the right hepatic lobe is present towards the junction with the medial segment, series 23 image 44 measuring 2.2 x 3.4 cm. Numerous other lesions noted. On the later postcontrast imaging lesions demonstrate gradual fill-in consistent with central hypoperfusion but not necrosis. No washout noted. Tiny hepatic cysts noted. Mild prominence of intrahepatic ducts noted. Portal vein is patent. Sequelae of portal venous hypertension present with large recannulized paraumbilical vein and gastroesophageal/paraesophageal varices. Numerous retroperitoneal and upper abdominal collaterals noted. Gallbladder and biliary tree: The gallbladder has been resected. Biliary tree within normal limits for same. Spleen: Spleen is markedly enlarged measuring 20.5 cm craniocaudad. Trace perisplenic fluid. Focal nonenhancing focus in the anterior spleen is T2 hyperintense and may represent a small cyst, series 5 image 7. Pancreas: Incidental pancreas divisum versus dominant minor duct noted. There is some mild diffuse loss of T1 hyperintensity. No ductal dilatation or focal lesion. Kidneys: Kidneys are normal in size and signal. There is no hydronephrosis. Incidental right extrarenal pelvis. Mass effect on the left kidney secondary to the enlarged spleen. There may be a few tiny renal cysts. Adrenals: Adrenal glands are unremarkable. Retroperitoneal/Lymph Nodes/Vasculature: Midline vessels are normal in caliber with gastroesophageal and paraesophageal varices present. Upper abdominal collateralization. Recanalized paraumbilical vein. Multiple small lymph nodes in the upper abdomen are present as seen on CT. These are nonspecific in the setting of cirrhosis. A labor union business representative node in the gastrohepatic ligament measures 1 x 1.5 cm, series 27 image 31. GI Tract: Possible small hiatal hernia. No bowel obstruction. Trace ascites. Pelvis: Bladder: Bladder is collapsed which makes evaluation for focal lesion. Wall appears diffusely circumferentially thickened. Patient has had a recent cystoscopy 04/16/2018 which did not demonstrate any focal bladder mass. Pelvic Organs: Hysterectomy. Trace pelvic fluid. Other: No enlarged iliac or inguinal nodes. Minor posterior body wall edema. Osseous Structures: Multiple enhancing lesions in the bones are demonstrated with the largest identified in the left femoral neck, series 35 images 71-78. These are heterogeneous on T2 sequences. Lesions are also noted elsewhere in the left femur, left ischium and left acetabulum. Tiny lesion in the right inferior pubic ramus and lesion in the left sacrum also present. Additional small heterogeneous areas of enhancement may also represent early metastatic lesions. No loss of height in the spine. IMPRESSION: 1. Background liver is cirrhotic with changes of portal venous hypertension. 2. There are innumerable lesions in the liver, overall increased in size and number from prior noncontrast CT. These do not have typical features of hepatocellular carcinoma and would be more compatible with metastatic disease. 3. There are borderline enlarged gastrohepatic and upper abdominal lymph nodes present, indeterminate. 4. Enhancing osseous lesions present mainly in the left pelvis and femur concerning for metastatic disease. Could correlate with a bone scan to assess remainder of the bones. 5. Bladder is collapsed without definite mass identified separate to circumferential wall thickening. Please correlate with recent cystoscopy. 6. Other ancillary findings as above. *CRE/GFR POC DEVICE Collected: 06/05/2018 Status: F Source: [facility] 2:04 PM [facility] REPOSITORY TYPE CODE TESTS RESULT OUT OF REFERENCE UNITS RANGE LAB CREPC 0.50-1.20 mg/dL High Creatinine (poc 1.25 device) LAB GFRPC >60 mL/min/1.7 Low 3 sq m est GFR, (poc device) 46 LAB PCSTYP *POC SAMPLE TYPE Venous PT Collected: 05/22/2018 Status: F Source: [facility] 1:43 PM [facility] REPOSITORY TYPE CODE TESTS RESULT OUT OF RANGE REFERENCE UNITS LAB [id number](LO 1.0-1.2 INC) High INR 1.3 Result Comment: INR Recommended Therapeuptic Ranges: Prophylaxis/treatment of DVT and PE?2.0-3.0 Prevention of systemic embolism?.2.0-3.0 Mechanical prosthetic values?2.5-3.5 CRITICAL VALUES?.>4.0 LAB [id number](LOINC) 11.6-14.6 second(s) High PT 15.3 Performed By: #### [id number] #### DL [facility] [employer] [address] [place] [address] BMP Collected: 05/22/2018 Status: F Source: [facility] 1:43 PM [facility] REPOSITORY TYPE CODE TESTS RESULT OUT OF RANGE REFERENCE UNITS LAB [id number](L 70-99 mg/dL OINC) Abnormal Alert Glucose Lvl 427 Result Comment: Critical Result (s) Called to and read back by: DR HOSKINS at: 05/22/2018 18:45:42 by:SYMARILIA 4 ATTEMPTS TO CALL ORDERING PHYSICIAN; NO RESPONSE CALLED AFP Tameka CASTELLANOS IS LISTED PCP LAB [id number](LOINC) 6-23 mg/dL BUN High 40 LAB [id number](LOINC) 0.6-1.3 mg/dL High Creatinine 1.8 LAB 56196464(LOINC) 5.4-30.0 ratio Normal BUN/Creat Ratio 22.2 LAB 98189628(LOINC) 8.6-10.3 mg/dL Calcium Normal Lvl 9.0 LAB 67123243(LOINC) 136-145 mEq/L Low Sodium Lvl 133 LAB 25434399(LOINC) 3.5-5.3 mEq/L Normal Potassium Lvl 5.3 LAB 39772489(LOINC) 98-107 mEq/L Chloride Normal 105 LAB [id number](LOINC) 21.0-32.0 mEq/L CO2 Normal 21.0 LAB [id number](LOINC) 10-20 mEq/L AGAP Normal 12 Performed By: #### [id number] #### DL [employer] [address] [place] [address] HEP FUNC PANEL Collected: 05/22/2018 Status: F Source: [facility] 1:43 PM [facility] REPOSITORY TYPE CODE TESTS RESULT OUT OF RANGE REFERENCE UNITS LAB [id number](L 7-45 Int._Unit/L OINC) Normal ALT 17 LAB 25629525(L 9-39 Int._Unit/L OINC) Normal AST 22 LAB [id number](L 3.4-5.0 G/DL OINC) Normal Albumin Lvl 3.5 LAB 99389476(L 2.0-4.0 G/DL OINC) Normal Globulin 3.0 LAB 27900000(L 1.1-1.9 ratio OINC) Normal A/G Ratio 1.2 LAB [id number](L 33-136 Int._Unit/L OINC) High Alk Phos 163 LAB 84727864(L .00-.30 mg/dL OINC) High Bili Direct .80 LAB 52451003(L OINC) Normal Bili Indirect 1.5 LAB 22679251(L 0.0-1.2 mg/dL OINC) High Bili Total 2.3 LAB 71752129(L 6.4-8.2 gm/dL OINC) Low Total Protein 6.3 Performed By: #### [id number] #### DL [employer] [facility] [place] [address] EGFR Collected: 05/22/2018 Status: F Source: [facility] 1:43 [facility] REPOSITORY Order Comment: Order added by Discern Expert. TYPE CODE TESTS RESULT OUT OF RANGE REFERENCE UNITS LAB [id number](LO mL/min/1.73 INC) m2 Normal eGFR 28 LAB [id number](LO mL/min/1.73 INC) m2 Normal eGFR AA 34 Performed By: #### [id number] #### DL [employer] [facility] [place] [address] CBC W/ AUTO DIFF Collected: 05/22/2018 Status: F Source: [facility] 1:43 [facility] REPOSITORY TYPE CODE TESTS RESULT OUT OF RANGE REFERENCE UNITS LAB [id number](L 3.6-11.0 E3/mcL OINC) Normal WBC 4.5 LAB [id number](L 3.90-5.40 E6/mcL OINC) Low RBC 3.70 LAB 15993024(L 12.0-16.0 G/DL OINC) Low Hgb 10.8 LAB 99766835(L 36.0-48.0 % OINC) Low Hct 32.4 LAB 49687639(L 11.5-14.5 % OINC) High RDW 17.2 LAB 66930304(L 27.0-31.0 pg OINC) Normal MCH 29.2 LAB 56319778(L 33.0-37.0 G/DL OINC) Normal MCHC 33.5 LAB 10235230(L 78.0-100.0 fL OINC) Normal MCV 87.4 LAB 87776375(L 7.4-11.0 fL OINC) Normal MPV 8.3 LAB 05353982(L 130-400 E3/mcL OINC) Low Platelet 70 Performed By: #### [id number] #### DL [employer] [address] [place] [address] MORPH Collected: 05/22/2018 Status: F Source: [facility] 1:43 [facility] REPOSITORY Order Comment: Order Added by Discern Expert. TYPE CODE TESTS RESULT OUT OF REFERENCE UNITS RANGE LAB [id number]( LOINC) RBC Morph SEE Normal MORPHOLOGY LAB 56715337( LOINC) 1+ Normal Anisocytosis Performed By: #### [id number] #### DL [facility] [address] [place] [address] ZZPLT MORPH Collected: 05/22/2018 Status: F Source: BUDDHIST 1:43 PM [facility] REPOSITORY TYPE CODE TESTS RESULT OUT OF RANGE REFERENCE UNITS LAB 10448047(L OINC) Normal Platelet DECREASED Estimate LAB 30035647(L OINC) Normal Platelet Morph NORMAL Performed By: #### [id number] #### [facility] [address] [place] [address] AUTO DIFF Collected: 05/22/2018 Status: F Source: BUDDHIST 1:43 [facility] REPOSITORY Order Comment: Order Added by Discern Expert. TYPE CODE TESTS RESULT OUT OF RANGE REFERENCE UNITS LAB 51115862(L 37.0-75.0 % OINC) Normal Neutro Auto 67.1 LAB 93015419(L 20.0-55.0 % OINC) Low Lymph Auto 17.5 LAB 73373456(L 0.0-10.0 % OINC) Normal Laurel Auto 9.1 LAB 77236263(L 0.0-11.0 % OINC) Normal Eos Auto 5.7 LAB 66871633(L 0.0-2.0 % OINC) Normal Basophil Auto 0.6 LAB 51994095(L 1.4-6.5 E3/mcL OINC) Normal Neutro 3.0 Absolute LAB 71713553(L 1.2-3.4 E3/mcL OINC) Low Lymph Absolute 0.8 LAB 55152622(L 0.0-0.7 E3/mcL OINC) Normal Laurel Absolute 0.4 LAB 87753742(L 0.0-0.7 E3/mcL OINC) Normal Eos Absolute 0.3 LAB 46094994(L 0.0-0.2 E3/mcL OINC) Normal Basophil 0.0 Absolute Performed By: #### [id number] #### DL [facility] [address] [place] [address] PT Collected: 05/06/2018 Status: F Source: BUDDHIST 1:10 PM [facility] REPOSITORY TYPE CODE TESTS RESULT OUT OF RANGE REFERENCE UNITS LAB 16612888(LO 1.0-1.2 INC) High INR 1.3 Result Comment: INR Recommended Therapeuptic Ranges: Prophylaxis/treatment of DVT and PE?2.0-3.0 Prevention of systemic embolism?.2.0-3.0 Mechanical prosthetic values?2.5-3.5 CRITICAL VALUES?.>4.0 LAB 08668720(LOINC) 11.6-14.6 second(s) High PT 15.5 Performed By: #### [id number] #### DL [facility] [address] [place] [id number] BMP Collected: 05/06/2018 Status: F Source: BUDDHIST 1:10 PM [facility] REPOSITORY TYPE CODE TESTS RESULT OUT OF RANGE REFERENCE UNITS LAB 54428667(L 70-99 mg/dL OINC) Glucose Abnormal Lvl 415 Alert LAB 13134973(L 6-23 mg/dL OINC) High BUN 38 LAB 3307006(LO 0.6-1.3 mg/dL INC) High Creatinine 1.7 LAB 06412022(L 5.4-30.0 ratio OINC) Normal BUN/Creat Ratio 22.4 LAB 85055704(L 8.6-10.3 mg/dL OINC) Normal Calcium Lvl 8.7 LAB 52969235(L 136-145 mEq/L OINC) Low Sodium Lvl 134 LAB 97598536(L 3.5-5.3 mEq/L OINC) Normal Potassium Lvl 4.9 LAB 29094924(L 98-107 mEq/L OINC) Normal Chloride 106 LAB 30586946(L 21.0-32.0 mEq/L OINC) Low CO2 20.0 Performed By: #### [id number] #### DL [employer] [place] [address] HEP FUNC PANEL Collected: 05/06/2018 Status: C Source: BUDDHIST 1:10 PM [facility] REPOSITORY TYPE CODE TESTS RESULT OUT OF RANGE REFERENCE UNITS LAB 46107305(L 7-45 Int._Unit/L OINC) Normal ALT 15 LAB 96307484(L 9-39 Int._Unit/L OINC) Normal AST 24 LAB 91135827(L 3.4-5.0 G/DL OINC) Low Albumin Lvl 3.3 LAB 27763674(L 2.0-4.0 G/DL OINC) Normal Globulin 3.0 LAB 84078932(L 1.1-1.9 ratio OINC) Low A/G Ratio 1.0 LAB 02464550(L 33-136 Int._Unit/L OINC) High Alk Phos 164 LAB 05342568(L .00-.30 mg/dL OINC) High Bili Direct .80 LAB 09672856(L 0.0-0.9 mg/dL OINC) High Bili Indirect 1.9 LAB 86441851(L 0.0-1.2 mg/dL OINC) High Bili Total 2.7 LAB 67355146(L 6.4-8.2 gm/dL OINC) Normal Total Protein 6.5 Performed By: #### [id number] #### DL [employer] [place] [address] EGFR Collected: 05/06/2018 Status: F Source: BUDDHIST 1:10 PM [facility] REPOSITORY Order Comment: Order added by Discern Expert. TYPE CODE TESTS RESULT OUT OF RANGE REFERENCE UNITS LAB 09706561(LO mL/min/1.73 INC) m2 Normal eGFR 31 LAB 16500319(LO mL/min/1.73 INC) m2 Normal eGFR AA 38 Performed By: #### [id number] #### DL [facility] [address] [place] [id number] CBC W/ AUTO DIFF Collected: 05/06/2018 Status: F Source: BUDDHIST 1:10 PM [facility] REPOSITORY TYPE CODE TESTS RESULT OUT OF RANGE REFERENCE UNITS LAB 33845010(L 3.6-11.0 E3/mcL OINC) Normal WBC 4.2 LAB 38261812(L 3.90-5.40 E6/mcL OINC) Low RBC 3.84 LAB 60720637(L 12.0-16.0 G/DL OINC) Low Hgb 11.0 LAB 67302363(L 36.0-48.0 % OINC) Low Hct 33.3 LAB 64084510(L 11.5-14.5 % OINC) High RDW 17.0 LAB 86571227(L 27.0-31.0 pg OINC) Normal MCH 28.6 LAB 09375878(L 33.0-37.0 G/DL OINC) Normal MCHC 33.0 LAB 70547019(L 78.0-100.0 fL OINC) Normal MCV 86.6 LAB 30734513(L 7.4-11.0 fL OINC) Normal MPV 7.8 LAB [id number](L 130-400 E3/mcL OINC) Low Platelet 82 Performed By: #### [id number] #### DL [facility] [address] [place] [id number] MORPH Collected: 05/06/2018 Status: F Source: BUDDHIST 1:10 PM [facility] REPOSITORY Order Comment: Order Added by Discern Expert. TYPE CODE TESTS RESULT OUT OF REFERENCE UNITS RANGE LAB 79297741( LOINC) RBC Morph SEE Normal MORPHOLOGY LAB 57994636( LOINC) Hypochromasia 1+ Normal LAB 55079705( LOINC) Anisocytosis 2+ Normal Performed By: #### [id number] #### DL Rem[facility] [place] [id number] ZZPLT MORPH Collected: 05/06/2018 Status: F Source: BUDDHIST 1:10 PM [facility] REPOSITORY TYPE CODE TESTS RESULT OUT OF RANGE REFERENCE UNITS LAB 04818752(L OINC) Normal Platelet DECREASED Estimate LAB 12374552(L OINC) Normal Platelet Morph NORMAL Performed By: #### [id number] #### DL [employer] [address] [place] [address] AUTO DIFF Collected: 05/06/2018 Status: F Source: BUDDHIST 1:10 PM [facility] REPOSITORY Order Comment: Order Added by Discern Expert. TYPE CODE TESTS RESULT OUT OF RANGE REFERENCE UNITS LAB 04865458(L 37.0-75.0 % OINC) Normal Neutro Auto 69.0 LAB 48849304(L 20.0-55.0 % OINC) Low Lymph Auto 18.7 LAB 90986221(L 0.0-10.0 % OINC) Normal Laurel Auto 6.7 LAB 11229362(L 0.0-11.0 % OINC) Normal Eos Auto 4.9 LAB 23000480(L 0.0-2.0 % OINC) Normal Basophil Auto 0.7 LAB 54506120(L 1.4-6.5 E3/mcL OINC) Normal Neutro 2.9 Absolute LAB 28950213(L 1.2-3.4 E3/mcL OINC) Low Lymph Absolute 0.8 LAB 38346436(L 0.0-0.7 E3/mcL OINC) Normal Laurel Absolute 0.3 LAB 34157030(L 0.0-0.7 E3/mcL OINC) Normal Eos Absolute 0.2 LAB 41105948(L 0.0-0.2 E3/mcL OINC) Normal Basophil 0.0 Absolute Performed By: #### [id number] #### DL [facility] [address] [place], [place] [id number] PT Collected: 04/17/2018 Status: F Source: BUDDHIST 11:[address] [facility] REPOSITORY TYPE CODE TESTS RESULT OUT OF RANGE REFERENCE UNITS LAB [id number](LO 1.0-1.2 INC) Normal INR 1.1 Result Comment: INR Recommended Therapeuptic Ranges: Prophylaxis/treatment of DVT and PE?2.0-3.0 Prevention of systemic embolism?.2.0-3.0 Mechanical prosthetic values?2.5-3.5 CRITICAL VALUES?.>4.0 LAB 30068650(LOINC) 11.6-14.6 second(s) Normal 14.0 PT Performed By: #### [id number] #### DL Hematology Automated Subsection [facility] [place] [address] SODIUM Collected: 04/17/2018 Status: F Source: BUDDHIST 11:32 AM [facility] REPOSITORY TYPE CODE TESTS RESULT OUT OF RANGE REFERENCE UNITS LAB 06853696(LO 136-145 mEq/L INC) Normal Sodium Lvl 138 Performed By: #### [id number] #### DL [employer] [address] [place] [address] POTASSIUM Collected: 04/17/2018 Status: F Source: BUDDHIST 11:32 AM [facility] REPOSITORY TYPE CODE TESTS RESULT OUT OF RANGE REFERENCE UNITS LAB [id number](L 3.5-5.1 mEq/L OINC) Normal Potassium Lvl 4.7 Performed By: #### [id number] #### DL [facility] [address] [place] [address] LYTES Collected: 04/17/2018 Status: F Source: BUDDHIST 11:32 AM [facility] REPOSITORY TYPE CODE TESTS RESULT OUT OF RANGE REFERENCE UNITS LAB [id number](L 136-145 mEq/L OINC) Normal Sodium Lvl 136 LAB [id number](L 3.5-5.1 mEq/L OINC) Normal Potassium Lvl 4.7 LAB 43222516(L 98-107 mEq/L OINC) Normal Chloride 106 LAB 50750712(L 24.0-30.0 mEq/L OINC) Low CO2 20.1 Performed By: #### [id number] #### DL [facility] [address] [place] [address] BUN Collected: 04/17/2018 Status: F Source: BUDDHIST 11:32 AM [facility] REPOSITORY TYPE CODE TESTS RESULT OUT OF RANGE REFERENCE UNITS LAB 59151424(LO 7-18 mg/dL INC) High BUN 28 Performed By: #### [id number] #### DL [facility] [address] [place] [address] CREATININE Collected: 04/17/2018 Status: F Source: BUDDHIST 11:32 AM [facility] REPOSITORY TYPE CODE TESTS RESULT OUT OF REFERENCE UNITS RANGE LAB 8164697(LO 0.6-1.3 mg/dL INC) High Creatinine 1.5 Performed By: #### [id number] #### DL [facility] [address] [place] [address] EGFR Collected: 04/17/2018 Status: F Source: BUDDHIST 11:32 AM [facility] REPOSITORY Order Comment: Order added by Discern Expert. TYPE CODE TESTS RESULT OUT OF RANGE REFERENCE UNITS LAB [id number](LO mL/min/1.73 INC) m2 Normal eGFR 35 LAB 71979819(LO mL/min/1.73 INC) m2 Normal eGFR AA 42 Performed By: #### [id number] #### DL [facility] [address] [place] [address] HEP FUNC PANEL Collected: 04/17/2018 Status: F Source: BUDDHIST 11:32 [facility] REPOSITORY TYPE CODE TESTS RESULT OUT OF RANGE REFERENCE UNITS LAB 89415020(L 10-40 Int._Unit/L OINC) Normal ALT 24 LAB 78821041(L 10-42 Int._Unit/L OINC) High AST 44 LAB 76647983(L 3.2-5.0 G/DL OINC) Low Albumin Lvl 3.0 LAB 34631537(L 2.0-4.0 G/DL OINC) Normal Globulin 3.0 LAB 31927310(L 1.1-1.9 ratio OINC) Low A/G Ratio 1.0 LAB 83427786(L 42-121 Int._Unit/L OINC) High Alk Phos 149 LAB 57288058(L .00-.20 mg/dL OINC) High Bili Direct .75 LAB 42378208(L OINC) Normal Bili Indirect 1.6 Result Comment: No established ranges available for the Indirect Biliruben. LAB 77025138(LOINC) 0.2-1.0 mg/dL High Bili Total 2.4 LAB 73657758(LOINC) 6.4-8.3 G/DL Low Total Protein 6.0 Performed By: #### [id number] #### DL [facility] [address] [place] [address] PHOSPHORUS Collected: 04/17/2018 Status: F Source: BUDDHIST 11:32 [facility] REPOSITORY TYPE CODE TESTS RESULT OUT OF RANGE REFERENCE UNITS LAB 40715640(L 2.5-4.6 mg/dL OINC) Normal Phosphorus 3.6 Performed By: #### [id number] #### DL [facility] [place] [address] CBC W/ AUTO DIFF Collected: 04/17/2018 Status: F Source: BUDDHIST 11:32 [facility] TYPE CODE TESTS RESULT OUT OF RANGE REFERENCE UNITS LAB 69563413(L 3.6-11.0 E3/mcL OINC) Normal WBC 3.9 LAB 71878278(L 3.90-5.40 E6/mcL OINC) Low RBC 3.74 LAB 64101352(L 12.0-16.0 G/DL OINC) Low Hgb 10.8 LAB 81266778(L 36.0-48.0 % OINC) Low Hct 32.7 LAB 24043646(L 11.5-14.5 % OINC) High RDW 18.2 LAB 44522788(L 27.0-31.0 pg OINC) Normal MCH 28.8 LAB 92911806(L 33.0-37.0 G/DL OINC) Normal MCHC 33.0 LAB 74721539(L 78.0-100.0 fL OINC) Normal MCV 87.3 LAB 61582719(L 7.4-11.0 fL OINC) Low MPV 7.2 LAB 60261022(L 130-400 E3/mcL OINC) Low Platelet 80 Performed By: #### [id number] #### DL [facility] [address] [place] [id number] MORPH Collected: 04/17/2018 Status: F Source: BUDDHIST 11:32 AM [facility] REPOSITORY Order Comment: Order Added by Discern Expert. TYPE CODE TESTS RESULT OUT OF REFERENCE UNITS RANGE LAB 94020180( LOINC) RBC Morph SEE Normal MORPHOLOGY LAB 27383225( LOINC) Hypochromasia 1+ Normal LAB 25787558( LOINC) Anisocytosis 1+ Normal Performed By: #### [id number] #### DL Rem[facility]emo [facility] [place] [address] ZZPLT MORPH Collected: 04/17/2018 Status: F Source: BUDDHIST 11:32 AM [facility] REPOSITORY TYPE CODE TESTS RESULT OUT OF RANGE REFERENCE UNITS LAB 38951377(L OINC) Normal Platelet DECREASED Estimate LAB 04794573(L OINC) Normal Platelet Morph ENLARGED Performed By: #### [id number] #### DL [facility] [address] [place] [address] AUTO DIFF Collected: 04/17/2018 Status: F Source: BUDDHIST 11:32 [facility] REPOSITORY Order Comment: Order Added by Discern Expert. TYPE CODE TESTS RESULT OUT OF RANGE REFERENCE UNITS LAB 19082834(L 37.0-75.0 % OINC) Normal Neutro Auto 64.7 LAB 67726123(L 20.0-55.0 % OINC) Normal Lymph Auto 20.3 LAB 70136441(L 0.0-10.0 % OINC) Normal Laurel Auto 9.2 LAB 31220053(L 0.0-11.0 % OINC) Normal Eos Auto 4.8 LAB 50475487(L 0.0-2.0 % OINC) Normal Basophil Auto 1.0 LAB 75592232(L 1.4-6.5 E3/mcL OINC) Normal Neutro 2.5 Absolute LAB 69378848(L 1.2-3.4 E3/mcL OINC) Low Lymph Absolute 0.8 LAB 32696689(L 0.0-0.7 E3/mcL OINC) Normal Laurel Absolute 0.4 LAB 18604923(L 0.0-0.7 E3/mcL OINC) Normal Eos Absolute 0.2 LAB 16068539(L 0.0-0.2 E3/mcL OINC) Normal Basophil 0.0 Absolute Performed By: #### [id number] #### DL Rem[facility]emo [facility] [place] [address] CALCIUM Collected: 04/17/2018 Status: F Source: BUDDHIST 11:23 AM [facility] REPOSITORY TYPE CODE TESTS RESULT OUT OF RANGE REFERENCE UNITS LAB 94746838(LO 8.4-10.2 mg/dL INC) Normal Calcium Lvl 8.5 Performed By: #### [id number] #### DL [facility] [address] [place] [address] CT CHEST WITHOUT Observed: 04/16/2018 Status: F Source: [facility] 3:23 PM [facility] REPOSITORY EXAM: CT CHEST WITHOUT CONTRAST, 04/16/2018 09:54 AM COMPARISON: October 16, 2017 and March 14, 2015 CLINICAL INDICATIONS: History of bladder cancer s/p EBRT, evaluate for metastatic disease; RELEVANT CLINICAL HISTORY: C67.8:Malignant neoplasm of overlapping sites of bladder TECHNIQUE: Axial CT images were reconstructed from the volumetric data set, from the thoracic inlet through the adrenal glands. No intravenous contrast was used. Coronal MIP images were also reconstructed. This patient underwent a CT examination using radiation exposure as low as reasonably achievable. CTDIvol and DLP radiation exposure values for each series were: Exposure: 1; Series: 1; Anatomy: Chest; Phantom: 32 cm; CTDIvol: 5; DLP: 354 The following accession numbers are related to this dose report {[id number]}: [id number] The dose indicators for CT are the volume Computed Tomography (CT) Dose Index (CTDIvol) and the Dose Length Product (DLP), and are measured in units of mGy and mGy-cm, respectively. These indicators are not patient dose, but values generated from the CT scanner acquisition factors and may substantially underestimate or overestimate the absorbed dose based on patient size and other factors. FINDINGS: Lungs and Pleura: No new suspicious pulmonary nodule. Stable 5 mm right lower lobe nodule and few tiny pulmonary nodules since 2015 (image 43). No consolidation. No pleural fluid. Tracheobronchial tree: No abnormality. Mediastinum/Jodi: No mediastinal or hilar lymphadenopathy. Stable subcentimeter short axis mediastinal lymph nodes. Axilla and Supraclavicular Regions: No axillary or supraclavicular adenopathy. Cardiovascular: The cardiac chambers are within normal limits. The pericardium is normal. The aorta and its arch branch vessels are unremarkable. The pulmonary arteries are also unremarkable. Upper Abdomen: Please see the abdominal CT scan report from the same date for further description of findings related to the upper abdomen. Bones and Soft Tissue: No suspicious osseous lesion. IMPRESSION: 1. Stable exam with no convincing evidence of metastasis within the chest. ABDOMEN/PELVIS WITHOUT Observed: 04/16/2018 Status: F Source: [facility] [facility] 10:56 AM [facility] REPOSITORY EXAM: CT ABDOMEN/PELVIS WITHOUT CONTRAST, 04/16/2018 09:53 AM COMPARISON: October 16, 2017. CLINICAL INDICATIONS: History of bladder cancer s/p EBRT, evaluate for metastatic disease; C67.8:Malignant neoplasm of overlapping sites of bladder TECHNIQUE: Helical axial images of the abdomen and pelvis were performed from the domes of the diaphragm to the ischial tuberosities without the administration of intravenous contrast. Oral contrast was administered. Coronal 2 mm reconstructions were also made. CONTRAST: This patient underwent a CT examination using radiation exposure as low as reasonably achievable. CTDIvol and DLP radiation exposure values for each series were: Exposure: 1; Series: 1; Anatomy: Chest; Phantom: 32 cm; CTDIvol: 5; DLP: 354 The following accession numbers are related to this dose report {[id number]}: [id number] The dose indicators for CT are the volume Computed Tomography (CT) Dose Index (CTDIvol) and the Dose Length Product (DLP), and are measured in units of mGy and mGy-cm, respectively. These indicators are not patient dose, but values generated from the CT scanner acquisition factors and may substantially underestimate or overestimate the absorbed dose based on patient size and other factors. FINDINGS: Lung Bases: Please refer to chest CT report on same date for complete description of intrathoracic contents. ABDOMEN The study is limited for evaluation of solid abdominal organs without IV contrast injection Liver: * The liver is nodular and mildly contracted in contour compatible with hepatic cirrhosis. Multiple hypodense lesions have appeared in right and left lobes of liver in the interim, due to lack of IV contrast difficult to visualize and accurate measurements cannot be obtained. The measurements are as follows: * * on image 28 in left hepatic lobe lesion measured 2.1 x 2.1 cm. * Right hepatic lobe lesion on image 28 approximately measures 2.6 x 2.5 cm * Posterior inferior right hepatic lobe lesion on image 40 measures 2 x 2.4 center. * Multiple additional lesions throughout the right and left hepatic parenchyma are present of variable size.. Redemonstrated enlarged periumbilical collateral veins courses anterior to the liver and along the midline rectus sheath indicating presence of left inferior epigastric vein. Biliary/Gallbladder: Status post cholecystectomy. The biliary tree is nondilated. Spleen: Spleen is enlarged measuring 21.2 cm in craniocaudal diameter previously 22 cm. Pancreas: Pancreas is normal. There is no evidence of pancreatic mass or peripancreatic fluid. Kidneys: Kidneys are normal in size. The left kidney is caudally displaced by enlarged spleen. There are no stones or hydronephrosis. Adrenals: Adrenal glands are unremarkable. Retroperitoneal/Lymph Nodes/Vasculature: Atherosclerotic calcifications in abdominal aorta and iliac arteries. No evidence of aneurysm. As described above evidence for portal hypertension with venous collateralization with esophageal varices and enlarged periumbilical collateral veins and several additional venous collaterals are present in central upper abdomen. Several curvilinear nodular structures in the gastrohepatic interval redemonstrated, difficult to distinguish from vascular collaterals and lymph nodes these are essentially stable. Further inferiorly no discrete retroperitoneal adenopathy by CT size criteria. Gastrointestinal/Mesentery: There is a small hiatal hernia. The bowel loops are non-dilated without wall thickening or mass. Scattered colonic diverticula without evidence for acute diverticulitis. PELVIS Bladder: Suggestion of mild thickening of for urinary bladder wall, unchanged. Genital: Status post to hysterectomy. No adnexal mass. Other: The previously stated thickening along the wall of sigmoid colon/upper rectum is improved compared to prior study, possibly due to presence of trace fluid in the basilar intraperitoneal space, small thickening or fluid is still present.. Small fat-containing umbilical hernia is redemonstrated. Bony Structures: Visualized bony structures are consistent with the patient's age. No suspicious osseous lesion. IMPRESSION: 1. Multiple variable sized new hypodense lesions involving throughout the right and left lobes of liver, the findings are suggestive of diffuse hepatic metastases, given limitation of noncontrast study. 2. Sequela of hepatic cirrhosis as described above. Evidence for portal hypertension. 3. Improvement in thickening along the sigmoid:/Upper rectal wall with a small amount of fluid in the pelvis. 4. No definite new adenopathy by CT size criteria. As above multiple venous collaterals are present in upper retroperitoneum related to portal hypertension, limiting evaluation for lymph node. 5. Other ancillary findings as above. [facility] Collected: 04/08/2018 Status: F Source: BUDDHIST 10:26 AM [facility] REPOSITORY TYPE CODE TESTS RESULT OUT OF RANGE REFERENCE UNITS LAB 05394593(L 70-99 mg/dL OINC) High Glucose Lvl 165 LAB 63940214(L 8.4-10.2 mg/dL OINC) Calcium Normal Lvl 8.6 LAB 79365506(L 136-145 mEq/L OINC) Sodium Normal Lvl 139 LAB 06428919(L 3.5-5.1 mEq/L OINC) Normal Potassium Lvl 4.6 LAB 52755106(L 98-107 mEq/L OINC) High Chloride 108 LAB 57352093(L 24.0-30.0 mEq/L OINC) Low CO2 21.5 LAB 07954798(L 7-18 mg/dL OINC) High BUN 21 LAB 1648629(LO 0.6-1.3 mg/dL INC) High Creatinine 1.4 LAB 90771220(L 5.4-30.0 ratio OINC) Normal BUN/Creat Ratio 15.0 Performed By: #### [id number] #### DL [facility] [place] [address] PT Collected: 04/08/2018 Status: F Source: [facility]IST 10:26 AM [facility] REPOSITORY TYPE CODE TESTS RESULT OUT OF RANGE REFERENCE UNITS LAB 41650084(LO 1.0-1.2 INC) High INR 1.4 Result Comment: INR Recommended Therapeuptic Ranges: Prophylaxis/treatment of DVT and PE?2.0-3.0 Prevention of systemic embolism?.2.0-3.0 Mechanical prosthetic values?2.5-3.5 CRITICAL VALUES?.>4.0 LAB 87886840(LOINC) 11.6-14.6 second(s) High PT 15.9 Performed By: #### [id number] #### DL Hematology Automated Subsection [address] [place] [address] HEP FUNC PANEL Collected: 04/08/2018 Status: F Source: BUD[facility]IST 10:26 AM [facility] REPOSITORY TYPE CODE TESTS RESULT OUT OF RANGE REFERENCE UNITS LAB 59187784(L 10-40 Int._Unit/L OINC) Normal ALT 22 LAB 68006693(L 10-42 Int._Unit/L OINC) Normal AST 35 LAB 90491908(L 3.2-5.0 G/DL OINC) Low Albumin Lvl 3.0 LAB 11263055(L 2.0-4.0 G/DL OINC) Normal Globulin 3.1 LAB 40967896(L 1.1-1.9 ratio OINC) Low A/G Ratio 1.0 LAB 78873524(L 42-121 Int._Unit/L OINC) High Alk Phos 132 LAB 12756723(L .00-.20 mg/dL OINC) High Bili Direct .57 LAB 78793341(L OINC) Normal Bili Indirect 1.5 Result Comment: No established ranges available for the Indirect Biliruben. LAB 85461819(LOINC) 0.2-1.0 mg/dL High Bili Total 2.1 LAB 50709027(LOINC) 6.4-8.3 G/DL Low Total Protein 6.1 Performed By: #### [id number] #### DL [facility] [address] [place] [address] EGFR Collected: 04/08/2018 Status: F Source: [facility] 10:26 AM [facility] REPOSITORY Order Comment: Order added by Discern Expert. TYPE CODE TESTS RESULT OUT OF RANGE REFERENCE UNITS LAB 75208270(LO mL/min/1.73 INC) m2 Normal eGFR 38 LAB 80919911(LO mL/min/1.73 INC) m2 Normal eGFR AA 46 Performed By: #### [id number] #### DL [facility] [address] [place] [id number] CBC W/ AUTO DIFF Collected: 04/08/2018 Status: F Source: [facility] 10:26 AM [facility] REPOSITORY TYPE CODE TESTS RESULT OUT OF RANGE REFERENCE UNITS LAB 98345622(L 3.6-11.0 E3/mcL OINC) Low WBC 3.5 LAB 20800682(L 3.90-5.40 E6/mcL OINC) Low RBC 3.81 LAB 71032250(L 12.0-16.0 G/DL OINC) Low Hgb 11.1 LAB 81320978(L 36.0-48.0 % OINC) Low Hct 33.3 LAB 74818434(L 11.5-14.5 % OINC) High RDW 20.4 LAB 25173393(L 27.0-31.0 pg OINC) Normal MCH 29.0 LAB 72029588(L 33.0-37.0 G/DL OINC) Normal MCHC 33.2 LAB 14141037(L 78.0-100.0 fL OINC) Normal MCV 87.4 LAB 11606441(L 7.4-11.0 fL OINC) Low MPV 7.2 LAB 48319711(L 130-400 E3/mcL OINC) Low Platelet 70 Performed By: #### [id number] #### DL Rem[facility] [place] [address] MORPH Collected: 04/08/2018 Status: F Source: [facility]IST 10:26 AM [facility] REPOSITORY Order Comment: Order Added by Discern Expert. TYPE CODE TESTS RESULT OUT OF RANGE REFERENCE UNITS LAB 43389755(L OINC) SEE Normal RBC MORPHOLOGY Morph Performed By: #### [id number] #### DL [facility] [place] [address] ZZPLT MORPH Collected: 04/08/2018 Status: F Source: [facility] 10:26 AM [facility] REPOSITORY TYPE CODE TESTS RESULT OUT OF RANGE REFERENCE UNITS LAB 66597769(L OINC) Normal Platelet DECREASED Estimate LAB 84773232(L OINC) Normal Platelet Morph NORMAL Performed By: #### [id number] #### DL [facility] [place] [address] AUTO DIFF Collected: 04/08/2018 Status: F Source: [facility] 10:26 AM [facility] REPOSITORY Order Comment: Order Added by [employer]. TYPE CODE TESTS RESULT OUT OF RANGE REFERENCE UNITS LAB 35551734(L 37.0-75.0 % OINC) Normal Neutro Auto 58.4 LAB 51261777(L 20.0-55.0 % OINC) Normal Lymph Auto 24.2 LAB 08902619(L 0.0-10.0 % OINC) Normal Laurel Auto 9.5 LAB 12391905(L 0.0-11.0 % OINC) Normal Eos Auto 6.5 LAB 58207890(L 0.0-2.0 % OINC) Normal Basophil Auto 1.4 LAB 18398353(L 1.4-6.5 E3/mcL OINC) Normal Neutro 2.0 Absolute LAB 30581935(L 1.2-3.4 E3/mcL OINC) Low Lymph Absolute 0.8 LAB 31015453(L 0.0-0.7 E3/mcL OINC) Normal Laurel Absolute 0.3 LAB 40871383(L 0.0-0.7 E3/mcL OINC) Normal Eos Absolute 0.2 LAB 59964323(L 0.0-0.2 E3/mcL OINC) Normal Basophil 0.1 Absolute Performed By: #### [id number] #### [facility] [place] [address] CBC W/DIFF, AUTOMATED Collected: 03/16/2018 Status: F Source: [place] 6:50 AM [facility] [place] Order Comment: ROOM 104 TYPE CODE TESTS RESULT OUT OF RANGE REFERENCE UNITS LAB L100.1000 4.4-11.0 K/mm3 Normal WBC 4.9 LAB L100.1200 4.2-5.4 M/mm3 Low RBC 3.93 LAB L100.1300 12.0-15.0 g/dl Low HGB 10.8 LAB L100.1400 37-47 % Low HCT 32.9 LAB L100.1500 81-99 fL Normal MCV 83.7 LAB L100.1600 27.0-32.0 pg Normal MCH 27.5 LAB L100.1700 32-36 g/gl Normal MCHC 32.8 LAB L100.1810 11.6-14.6 % High RDW CV 22.9 LAB L100.1820 35.1-43.9 fl High RDW SD 67.8 LAB L100.1900 150-450 K/mm3 Low PLT 62 LAB L100.2000 6.2-12.0 fl Normal MPV 9.0 LAB L100.2100 47-70 % Normal NEUT% 52.4 LAB L100.2200 19-41 % Normal LY% 27.4 LAB L100.2300 0-10 % Normal MONO% 9.3 LAB L100.2400 0-5 % High EO% 10.3 LAB L100.2500 0-1 % Normal BASO% 0.4 LAB L100.2550 0.0-0.9 % Normal IM GRAN % 0.200 Result Comment: IG% - Immature Granulocytes (promyelocytes, myelocytes and metamyelocytes) > 1% indicates that a LEFT SHIFT is Present. LAB L100.2620 2.0-7.7 X10 3/uL Absolute Neut Normal 2.5 LAB L100.2720 0.83-4.51 X10 3/ul Absolute Lymph Normal 1.33 LAB L100.5500 ADEQ PLT EST Normal MKD DEC LAB L100.7300 ANISO Normal 2+ LAB L100.7500 POLYCHROMASIA Normal RARE LAB L100.7600 HYPOCHROMASIA Normal 1+ Performed By: #### L100.0100 #### [facility] [address] [place], [place], [address] COMPREHENSIVE METABOLIC Collected: 03/16/2018 Status: F Source: [facility] 6:50 AM [facility] [place] [facility] Order Comment: ROOM 104 TYPE CODE TESTS RESULT OUT OF RANGE REFERENCE UNITS LAB L501.0100 74-106 mg/dL High GLU 148 Result Comment: Fasting Glucose result greater than or equal to 126 mg/dL suggests DIABETES MELLITUS per A.D.A. criteria. Please note revised GLUCOSE reference range effective 2017. LAB L501.1000 7-18 mg/dL High BUN 32 LAB L501.1100 0.55-1.02 mg/dL High CREAT,SERUM 1.34 Result Comment: The validity of the calculated GFR AND GFRAA in patients over 70 years has not been determined. Clinical correlation is essential. LAB L501.1110 >60 mL/min Low EST GFR 42 Result Comment: Non- GFR Calc LAB L501.1115 >60 mL/min Low EST GFR - AA 51 Result Comment: GFR Calc LAB L501.1300 10-20 RATIO High BUN/CRE 23.9 LAB L501.1500 6.4-8.2 g/dL T Normal PROT 6.5 LAB L501.1800 3.2-5.0 g/dL Low ALB 2.7 LAB L501.1950 2.2-4.2 g/dL Normal GLOB 3.8 LAB L501.2000 0.9-2.4 RATIO Low A/G 0.7 LAB L501.2200 8.5-10.1 mg/dL Low CA 8.4 LAB L501.4100 15-37 U/L Normal AST 36 LAB L501.4305 45-117 U/L High ALK P 198 LAB L501.4405 13-56 U/L Normal ALT 31 LAB L501.4600 0.20-1.00 mg/dL High T BILI 2.40 LAB L501.5300 136-145 mmol/L High NA 146 LAB L501.5600 3.5-5.1 mmol/L K Normal 4.8 LAB L501.5900 98-107 mmol/L High CL 113 LAB L501.6100 21.0-32.0 mmol/L Normal CO2 21.0 LAB L501.6200 5-15 Normal GAP 12 Performed By: #### L500.4050 #### [facility] [address] [place], [address] AMMONIA Collected: 03/09/2018 Status: F Source: [place] 10:00 AM [facility] [place] [facility] Order Comment: ROOM 104 TYPE CODE TESTS RESULT OUT OF REFERENCE UNITS RANGE LAB L503.5510 11-32 umol/L High AMMONIA 88.0 Performed By: #### L503.5510 #### [facility] [address] [place], [address] CBC W/DIFF, AUTOMATED Collected: 03/09/2018 Status: F Source: [place] 10:00 AM [facility] [place] [facility] Order Comment: ROOM 104 TYPE CODE TESTS RESULT OUT OF RANGE REFERENCE UNITS LAB L100.1000 4.4-11.0 K/mm3 Normal WBC 4.8 LAB L100.1200 4.2-5.4 M/mm3 Low RBC 4.04 LAB L100.1300 12.0-15.0 g/dl Low HGB 11.0 LAB L100.1400 37-47 % Low HCT 33.1 LAB L100.1500 81-99 fL Normal MCV 81.9 LAB L100.1600 27.0-32.0 pg Normal MCH 27.2 LAB L100.1700 32-36 g/gl Normal MCHC 33.2 LAB L100.1810 11.6-14.6 % High RDW CV 23.1 LAB L100.1820 35.1-43.9 fl High RDW SD 63.9 LAB L100.1900 150-450 K/mm3 Low PLT 84 LAB L100.2000 6.2-12.0 fl Normal MPV 9.2 LAB L100.2100 47-70 % Normal NEUT% 54.4 LAB L100.2200 19-41 % Normal LY% 28.8 LAB L100.2300 0-10 % Normal MONO% 8.1 LAB L100.2400 0-5 % High EO% 7.7 LAB L100.2500 0-1 % Normal BASO% 0.8 LAB L100.2550 0.0-0.9 % Normal IM GRAN % 0.200 Result Comment: IG% - Immature Granulocytes (promyelocytes, myelocytes and metamyelocytes) > 1% indicates that a LEFT SHIFT is Present. LAB L100.2620 2.0-7.7 X10 3/uL Normal Absolute Neut 2.6 LAB L100.2720 0.83-4.51 X10 3/ul Normal Absolute Lymph 1.39 LAB L100.4500 SMEAR Normal COMMENT Result Comment: SLIDE SCANNED - 1+ ANISO. Performed By: #### L100.0100 #### [facility] [address] [place], [address] COMPREHENSIVE METABOLIC Collected: 03/09/2018 Status: F Source: [facility] 10:00 AM [facility] [place] [facility] Order Comment: ROOM 104 TYPE CODE TESTS RESULT OUT OF RANGE REFERENCE UNITS LAB L501.0100 74-106 mg/dL High GLU 213 Result Comment: Glucose result greater than or equal to 200 mg/dL suggests DIABETES MELLITUS per A.D.A. criteria. Please note revised GLUCOSE reference range effective 2017. LAB L501.1000 7-18 mg/dL High BUN 27 LAB L501.1100 0.55-1.02 mg/dL High CREAT,SERUM 1.26 Result Comment: The validity of the calculated GFR AND GFRAA in patients over 70 years has not been determined. Clinical correlation is essential. LAB L501.1110 >60 mL/min Low EST GFR 45 Result Comment: Non- GFR Calc LAB L501.1115 >60 mL/min Low EST GFR - AA 55 Result Comment: GFR Calc LAB L501.1300 10-20 RATIO High BUN/CRE 21.4 LAB L501.1500 6.4-8.2 g/dL T Normal PROT 6.7 LAB L501.1800 3.2-5.0 g/dL Low ALB 2.7 LAB L501.1950 2.2-4.2 g/dL Normal GLOB 4.0 LAB L501.2000 0.9-2.4 RATIO Low A/G 0.7 LAB L501.2200 8.5-10.1 mg/dL Low CA 8.2 LAB L501.4100 15-37 U/L High AST 49 LAB L501.4305 45-117 U/L High ALK P 234 LAB L501.4405 13-56 U/L Normal ALT 33 LAB L501.4600 0.20-1.00 mg/dL High T BILI 2.30 LAB L501.5300 136-145 mmol/L NA Normal 144 LAB L501.5600 3.5-5.1 mmol/L K Normal 4.9 LAB L501.5900 98-107 mmol/L High CL 113 LAB L501.6100 21.0-32.0 mmol/L Low CO2 20.0 LAB L501.6200 5-15 Normal GAP 11 Performed By: #### L500.4050 #### [facility] [address] [place], [place], [address] MRI BRAIN W/O Observed: 03/05/2018 Status: F Source: [facility]UDDHIST CONTRAST 1:50 PM [facility] REPOSITORY Exam Date/Time: 03/05/2018 14:33 EDT Reason for Exam: NEW HEADACHE Report STUDY: MRI Brain w/o Contrast; 03/05/2018 2:33 pm INDICATION: NEW HEADACHE. Dizziness, headaches, frequent falls, headache starting and left congregational and across forehead than 2 in-house tire head for 3 months. Fell with multiple alexander in head at the end of January 2018. COMPARISON: 01/31/[address] ACCESSION NUMBER(S): [id number] ORDERING CLINICIAN: Srini Rodríguez TECHNIQUE: Axial T2, FLAIR, DWI, gradient echo T2 and sagittal and coronal T1 weighted images of brain were acquired. FINDINGS: CSF Spaces: The ventricles, sulci and basal cisterns are within normal limits. Parenchyma: There is no diffusion restriction abnormality to suggest acute infarct. The basal ganglia and to a lesser degree dentate nuclei have mild T1 hyperintensity. The white matter, basal ganglia and left thalamus have a few scattered focal hyperintensities. No hemorrhage or mass is noted. Scalp hematoma noted previously in the right frontal region is no longer identified. Paranasal Sinuses and Mastoids: Visualized paranasal sinuses and mastoid air cells are unremarkable. IMPRESSION: No acute infarct, hemorrhage or mass is noted. The hyperintensity in the basal ganglia and to lesser degree dentate nuclei may be secondary to in all deposition or prior contrast administration. Exam Date/Time: 03/05/2018 14:33 EDT Report The scattered parenchymal hyperintensities are nonspecific and may be secondary to degenerative, hypertensive, chronic microvascular ischemic or other etiologies. FINAL REPORT Dictated: 03/05/2018 4:06 pm Manuel Stroud MD Signed (Electronic Signature): 03/05/2018 4:06 pm Signed by: Manuel Stroud MD Technologist: [facility] AM[place]IA Collected: 03/02/2018 Status: F Source: [place] 8:05 AM [facility] [place] [facility] TYPE CODE TESTS RESULT OUT OF REFERENCE UNITS RANGE LAB L503.5510 11-32 umol/L High AMMONIA 82.0 Performed By: #### L503.5510 #### [facility] [address] [place], [place], [address] CBC W/DIFF, AUTOMATED Collected: 03/02/2018 Status: F Source: [place] 8:05 AM [facility] [place] [facility] TYPE CODE TESTS RESULT OUT OF RANGE REFERENCE UNITS LAB L100.1000 4.4-11.0 K/mm3 Low WBC 3.6 LAB L100.1200 4.2-5.4 M/mm3 Low RBC 3.86 LAB L100.1300 12.0-15.0 g/dl Low HGB 10.3 LAB L100.1400 37-47 % Low HCT 30.7 LAB L100.1500 81-99 fL Low MCV 79.5 LAB L100.1600 27.0-32.0 pg Low MCH 26.7 LAB L100.1700 32-36 g/gl Normal MCHC 33.6 LAB L100.1810 11.6-14.6 % High RDW CV 22.0 LAB L100.1820 35.1-43.9 fl High RDW SD 59.3 LAB L100.1900 150-450 K/mm3 Low PLT 76 LAB L100.2000 6.2-12.0 fl Normal MPV 9.1 LAB L100.2100 47-70 % Normal NEUT% 53.2 LAB L100.2200 19-41 % Normal LY% 24.8 LAB L100.2300 0-10 % High MONO% 11.7 LAB L100.2400 0-5 % High EO% 8.9 LAB L100.2500 0-1 % High BASO% 1.1 LAB L100.2550 0.0-0.9 % Normal IM GRAN % 0.300 Result Comment: IG% - Immature Granulocytes (promyelocytes, myelocytes and metamyelocytes) > 1% indicates that a LEFT SHIFT is Present. LAB L100.2620 2.0-7.7 X10 3/uL Low Absolute Neut 1.9 LAB L100.2720 0.83-4.51 X10 3/ul Normal Absolute Lymph 0.89 LAB L100.4500 Normal SMEAR COMMENT COMMENT Result Comment: SLIDE SCANNED - 1+ ANISO. Performed By: #### L100.0100 #### [facility] [address] [facility]. [place], [place], [address] VITAMIN B12 Collected: 03/02/2018 Status: F Source: [place] 8:05 AM [facility] [place] [facility] TYPE CODE TESTS RESULT OUT OF RANGE REFERENCE UNITS [facility] L503.0105 211-911 pg/mL Normal Vitamin B12 877 Performed By: #### L503.0105 #### [facility] [address] [place], [place], [address] COMPREHENSIVE METABOLIC Collected: 03/02/2018 Status: F Source: [place] 8:05 AM [facility] [place] [facility] Order Comment: Is Patient Taking Vitamins or Folic Acid Supplements? N TYPE CODE TESTS RESULT OUT OF RANGE REFERENCE UNITS LAB L501.0100 74-106 mg/dL High GLU 178 Result Comment: Fasting Glucose result greater than or equal to 126 mg/dL suggests DIABETES MELLITUS per A.D.A. criteria. Please note revised GLUCOSE reference range effective 2017. LAB L501.1000 7-18 mg/dL High BUN 22 LAB L501.1100 0.55-1.02 mg/dL High CREAT,SERUM 1.26 Result Comment: The validity of the calculated GFR AND GFRAA in patients over 70 years has not been determined. Clinical correlation is essential. LAB L501.1110 >60 mL/min Low EST GFR 45 Result Comment: Non- GFR Calc LAB L501.1115 >60 mL/min Low EST GFR - AA 55 Result Comment: GFR Calc LAB L501.1300 10-20 RATIO Normal BUN/CRE 17.5 LAB L501.1500 6.4-8.2 g/dL T Normal PROT 6.6 LAB L501.1800 3.2-5.0 g/dL Low ALB 2.6 LAB L501.1950 2.2-4.2 g/dL Normal GLOB 4.0 LAB L501.2000 0.9-2.4 RATIO Low A/G 0.6 LAB L501.2200 8.5-10.1 mg/dL Low CA 8.0 LAB L501.4100 15-37 U/L High AST 48 LAB L501.4305 45-117 U/L High ALK P 252 LAB L501.4405 13-56 U/L Normal ALT 26 LAB L501.4600 0.20-1.00 mg/dL High T BILI 2.50 LAB L501.5300 136-145 mmol/L NA Normal 143 LAB L501.5600 3.5-5.1 mmol/L K Normal 4.3 LAB L501.5900 98-107 mmol/L High CL 114 LAB L501.6100 21.0-32.0 mmol/L Normal CO2 21.0 LAB L501.6200 5-15 Normal GAP 8 Performed By: #### L500.4050, L501.9520, L506.0250 #### [facility] [address] [place], [address] THYROID STIM HORMONE Collected: 03/02/2018 Status: F Source: [place] (TSH) 8:05 AM [facility] [place] [facility] Order Comment: Is Patient Taking Vitamins or Folic Acid Supplements? N TYPE CODE TESTS RESULT OUT OF RANGE REFERENCE UNITS LAB L501.9520 0.358-3.74 uIU/mL High TSH 4.94 Performed By: #### L500.4050, L501.9520, L506.0250 #### [facility] [address], [address] FOLATES, (FOLIC ACID) Collected: 03/02/2018 Status: F Source: [place] 8:05 AM [facility] [place] [facility] Order Comment: Is Patient Taking Vitamins or Folic Acid Supplements? N TYPE CODE TESTS RESULT OUT OF RANGE REFERENCE UNITS LAB L506.0250 3.1-55.4 ng/mL Normal FOLATES 6.90 Performed By: #### L500.4050, L501.9520, L506.0250 #### [facility] [address], [address] MARY + PROTEIN ELECT, Collected: 03/02/2018 Status: F Source: [place] 8:05 AM [facility] [place] [facility] Order Comment: Is Patient Fasting? Y TYPE CODE TESTS RESULT OUT OF RANGE REFERENCE UNITS LAB L3100.3500 6.0-8.5 g/dL Normal PROTEIN,TOTAL 6.0 LAB L3200.3558 620-3552 mg/dL Normal IMMUNO G 1550 LAB L3200.1400 87-352 mg/dL High IMMUNO A 495 LAB L3200.1500 26-217 mg/dL Normal IMMUNOGL M 149 LAB L3200.1510 2.9-4.4 g/dL Low ALBUMIN 2.8 LAB L3200.1520 0.0-0.4 g/dL Normal QDFPE-2-SMLD 0.2 LAB L3200.1530 0.4-1.0 g/dL Normal FOZOU-9-YVES 0.4 LAB L3200.1540 0.7-1.3 g/dL Normal BETA GLOBULIN 0.8 LAB L3200.1550 0.4-1.8 g/dL Normal GAMMA GLOBULIN 1.7 LAB L3200.1560 Not Observed g/dL High M-SPIKE 0.2 LAB L3200.1570 2.2-3.9 g/dL Normal GLOBULIN, 3.2 TOTAL LAB L3200.1580 0.7-1.7 Normal A/G RATIO 0.9 LAB L3200.1590 . Normal MARY RESULT,S Comment Result Comment: Immunofixation shows IgG monoclonal protein with kappa light chain specificity. LAB L3200.1594 . Normal NOTE: Comment Result Comment: Protein electrophoresis scan will follow via computer, mail, or supervisor cigar making machine delivery. Performed at: [facility] [id number] Agency Director: Isaiah Blake PhD, Phone: [phone] Performed By: #### L3100.3425 #### [facility] (refer to report for specific site) refer to report for address and phone number KAPPA LAMBDA LIGHT Collected: 03/02/2018 Status: F [facility] [place] [facility] Order Comment: Is Patient Fasting? Y TYPE CODE TESTS RESULT OUT OF RANGE REFERENCE UNITS LAB L3130.0200 3.3-19.4 mg/L High FR KAPPA LT 143.3 CHN LAB L3130.0300 5.7-26.3 mg/L High FR LAMBDA LT 110.7 CH LAB L3130.0400 0.26-1.65 Normal KAPPA/LAMBDA 1.29 % Performed By: #### L3130.0010, L3200.1300, L3200.1400, L3200.1500 #### [facility] (refer to report for specific site) refer to report for address and phone number IMMUNOGLOBULIN G Collected: 03/02/2018 Status: F Source: [place] 8:05 AM [facility] [place] [facility] Order Comment: Is Patient Fasting? Y TYPE CODE TESTS RESULT OUT OF RANGE REFERENCE UNITS LAB L3200.2362 699-3241 mg/dL Normal IMMUNO G 1454 Performed By: #### L3130.0010, L3200.1300, L3200.1400, L3200.1500 #### [facility] (refer to report for specific site) refer to report for address and phone number IMMUNOGLOBULIN A Collected: 03/02/2018 Status: F Source: [place] 8:05 AM [facility] [place] Order Comment: Is Patient Fasting? Y TYPE CODE TESTS RESULT OUT OF REFERENCE UNITS RANGE LAB L3200.1400 87-352 mg/dL High IMMUNO A 502 Performed By: #### L3130.0010, L3200.1300, L3200.1400, L3200.1500 #### [facility] (refer to report for specific site) refer to report for address and phone number IMMUNOGLOBULIN M Collected: 03/02/2018 Status: F Source: [place] 8:05 AM [facility] [place] [facility] Order Comment: Is Patient Fasting? Y TYPE CODE TESTS RESULT OUT OF RANGE REFERENCE UNITS LAB L3200.1500 26-217 mg/dL Normal IMMUNOGL M 150 Result Comment: Performed at: [facility] [place] [id number] Agency Director: Isaiah Blake PhD, Phone: [phone] Performed By: #### L3130.0010, L3200.1300, L3200.1400, L3200.1500 #### [facility] (refer to report for specific site) refer to report for address and phone number COMPREHENSIVE METABOLIC Collected: 02/23/2018 Status: F [facility] [place] Order Comment: 104 NOT FASTING TYPE CODE TESTS RESULT OUT OF RANGE REFERENCE UNITS LAB L501.0100 74-106 mg/dL High GLU 251 Result Comment: Glucose result greater than or equal to 200 mg/dL suggests DIABETES MELLITUS per A.D.A. criteria. Please note revised GLUCOSE reference range effective 2017. LAB L501.1000 7-18 mg/dL High BUN 23 LAB L501.1100 0.55-1.02 mg/dL High CREAT,SERUM 1.44 Result Comment: The validity of the calculated GFR AND GFRAA in patients over 70 years has not been determined. Clinical correlation is essential. LAB L501.1110 >60 mL/min Low EST GFR 39 Result Comment: Non- GFR Calc LAB L501.1115 >60 mL/min Low EST GFR - AA 47 Result Comment: GFR Calc LAB L501.1300 10-20 RATIO Normal BUN/CRE 16.0 LAB L501.1500 6.4-8.2 g/dL T Normal PROT 6.7 LAB L501.1800 3.2-5.0 g/dL Low ALB 2.6 LAB L501.1950 2.2-4.2 g/dL Normal GLOB 4.1 LAB L501.2000 0.9-2.4 RATIO Low A/G 0.6 LAB L501.2200 8.5-10.1 mg/dL Low CA 8.4 LAB L501.4100 15-37 U/L High AST 44 LAB L501.4305 45-117 U/L High ALK P 243 LAB L501.4405 13-56 U/L Normal ALT 26 LAB L501.4600 0.20-1.00 mg/dL High T BILI 2.30 LAB L501.5300 136-145 mmol/L NA Normal 141 LAB L501.5600 3.5-5.1 mmol/L K Normal 4.2 LAB L501.5900 98-107 mmol/L High CL 111 LAB L501.6100 21.0-32.0 mmol/L Normal CO2 22.0 LAB L501.6200 5-15 Normal GAP 8 Performed By: #### L500.4050 #### [facility] [address] [place], [address] AMMONIA Collected: 02/23/2018 Status: F Source: [place] 8:45 AM [facility] [place] [facility] Order Comment: 104 TYPE CODE TESTS RESULT OUT OF REFERENCE UNITS RANGE LAB L503.5510 11-32 umol/L High AMMONIA 75.0 Performed By: #### L503.5510 #### [facility] [address] [place], [address] CBC W/DIFF, AUTOMATED Collected: 02/23/2018 Status: F Source: [place] 8:45 [facility] REPOSITORY Order Comment: 104 TYPE CODE TESTS RESULT OUT OF RANGE REFERENCE UNITS LAB L100.1000 4.4-11.0 K/mm3 Low WBC 3.1 LAB L100.1200 4.2-5.4 M/mm3 Low RBC 3.92 LAB L100.1300 12.0-15.0 g/dl Low HGB 10.1 LAB L100.1400 37-47 % Low HCT 31.5 LAB L100.1500 81-99 fL Low MCV 80.4 LAB L100.1600 27.0-32.0 pg Low MCH 25.8 LAB L100.1700 32-36 g/gl Normal MCHC 32.1 LAB L100.1810 11.6-14.6 % High RDW CV 20.5 LAB L100.1820 35.1-43.9 fl High RDW SD 58.1 LAB L100.1900 150-450 K/mm3 Low PLT 69 LAB L100.2000 6.2-12.0 fl Normal MPV 8.8 LAB L100.2100 47-70 % Normal NEUT% 53.3 LAB L100.2200 19-41 % Normal LY% 23.9 LAB L100.2300 0-10 % High MONO% 11.9 LAB L100.2400 0-5 % High EO% 10.0 LAB L100.2500 0-1 % Normal BASO% 0.6 LAB L100.2550 0.0-0.9 % Normal IM GRAN % 0.300 Result Comment: IG% - Immature Granulocytes (promyelocytes, myelocytes and metamyelocytes) > 1% indicates that a LEFT SHIFT is Present. LAB L100.2620 2.0-7.7 X10 3/uL Low Absolute Neut 1.7 LAB L100.2720 0.83-4.51 X10 3/ul Low Absolute Lymph 0.74 LAB L100.5500 ADEQ PLT EST Normal MKD DEC LAB L100.7300 ANISO Normal 2+ LAB L100.7600 HYPOCHROMASIA Normal 1+ LAB L100.8200 OVALOCYTE Normal 1+ Performed By: #### L100.0100 #### [facility] [address] [facility] [place], [place], [address] AMMONIA Collected: 02/17/2018 Status: F Source: [place] 7:20 AM [facility] [place] [facility] Order Comment: ROOM 104 TYPE CODE TESTS RESULT OUT OF REFERENCE UNITS RANGE LAB L503.5510 11-32 umol/L High AMMONIA 76.0 Performed By: #### L503.5510 #### [facility] [address] [facility] [place], [address] CBC W/DIFF, AUTOMATED Collected: 02/17/2018 Status: F Source: [place] 7:20 AM [facility] [place] Order Comment: ROOM 104 TYPE CODE TESTS RESULT OUT OF RANGE REFERENCE UNITS LAB L100.1000 4.4-11.0 K/mm3 Low WBC 3.4 LAB L100.1200 4.2-5.4 M/mm3 Low RBC 4.19 LAB L100.1300 12.0-15.0 g/dl Low HGB 10.7 LAB L100.1400 37-47 % Low HCT 33.4 LAB L100.1500 81-99 fL Low MCV 79.7 LAB L100.1600 27.0-32.0 pg Low MCH 25.5 LAB L100.1700 32-36 g/gl Normal MCHC 32.0 LAB L100.1810 11.6-14.6 % High RDW CV 20.2 LAB L100.1820 35.1-43.9 fl High RDW SD 56.1 LAB L100.1900 150-450 K/mm3 Low PLT 101 LAB L100.2000 6.2-12.0 fl Normal MPV 8.9 LAB L100.2100 47-70 % Normal NEUT% 50.6 LAB L100.2200 19-41 % Normal LY% 28.3 LAB L100.2300 0-10 % High MONO% 10.7 LAB L100.2400 0-5 % High EO% 9.5 LAB L100.2500 0-1 % Normal BASO% 0.9 LAB L100.2550 0.0-0.9 % Normal IM GRAN % 0.000 Result Comment: IG% - Immature Granulocytes (promyelocytes, myelocytes and metamyelocytes) > 1% indicates that a LEFT SHIFT is Present. LAB L100.2620 2.0-7.7 X10 3/uL Low Absolute Neut 1.7 LAB L100.2720 0.83-4.51 X10 3/ul Normal Absolute Lymph 0.95 LAB L100.7300 ANISO Normal 2+ Performed By: #### L100.0100 #### [facility] [address] [place], [place], [address] COMPREHENSIVE METABOLIC Collected: 02/17/2018 Status: F [facility] [place] Order Comment: ROOM 104 TYPE CODE TESTS RESULT OUT OF RANGE REFERENCE UNITS LAB L501.0100 74-106 mg/dL High GLU 132 Result Comment: Fasting Glucose result greater than or equal to 126 mg/dL suggests DIABETES MELLITUS per A.D.A. criteria. Please note revised GLUCOSE reference range effective 2017. LAB L501.1000 7-18 mg/dL High BUN 25 LAB L501.1100 0.55-1.02 mg/dL High CREAT,SERUM 1.42 Result Comment: The validity of the calculated GFR AND GFRAA in patients over 70 years has not been determined. Clinical correlation is essential. LAB L501.1110 >60 mL/min Low EST GFR 40 Result Comment: Non- GFR Calc LAB L501.1115 >60 mL/min Low EST GFR - AA 48 Result Comment: GFR Calc LAB L501.1300 10-20 RATIO Normal BUN/CRE 17.6 LAB L501.1500 6.4-8.2 g/dL T Normal PROT 7.2 LAB L501.1800 3.2-5.0 g/dL Low ALB 2.8 LAB L501.1950 2.2-4.2 g/dL High GLOB 4.4 LAB L501.2000 0.9-2.4 RATIO Low A/G 0.6 LAB L501.2200 8.5-10.1 mg/dL Low CA 8.4 LAB L501.4100 15-37 U/L High AST 52 LAB L501.4305 45-117 U/L High ALK P 231 LAB L501.4405 13-56 U/L Normal ALT 26 LAB L501.4600 0.20-1.00 mg/dL High T BILI 2.50 LAB L501.5300 136-145 mmol/L NA Normal 143 LAB L501.5600 3.5-5.1 mmol/L K Normal 4.1 LAB L501.5900 98-107 mmol/L High CL 111 LAB L501.6100 21.0-32.0 mmol/L Normal CO2 24.0 LAB L501.6200 5-15 Normal GAP 8 Performed By: #### L500.4050 #### [facility] [address] [place], [address] VENOUS ACCESS Observed: 02/16/2018 Status: F Source: [facility] REMOVAL 4:37 PM [facility] REPOSITORY EXAM: IR VENOUS ACCESS REMOVAL, 02/16/2018 11:06 AM CLINICAL INDICATIONS: Osteomyelitis. Completion of antibiotics. A time-out was performed. TECHNIQUE: Position: The patient was positioned semi-upright on their bed. The chest and indwelling catheter were prepped and draped. Procedure: The cuff of the right internal jugular triple lumen Powerline tunneled catheter was gently freed. The catheter was withdrawn and pressure was held over the entry point of the catheter into the vein and over the subcutaneous tunnel. Hemostasis was maintained with pressure. A sterile, occlusive dressing was applied over the former catheter exit site. COMPLICATIONS: There was no active bleeding or other complications. ESTIMATED BLOOD LOSS: trace. FINDINGS: The tunnel appeared non-infected. The entire catheter was removed intact. IMPRESSION: Successful removal of a tunneled catheter. I personally viewed and interpreted these images and I have reviewed and approved this report. Meds Event Details User 10:50 AM 02/16/18 Timeout: Sign-in Verified by Maverick Schaeffer RN at 02/16/2018 10:56 AM ND 10:56 AM 02/16/18 Timeout: TimeOut Verified by Maverick Schaeffer RN at 02/16/2018 10:56 AM ND 10:59 AM 02/16/18 Timeout: Sign-out Verified by Maverick Schaeffer RN at 02/16/2018 11:01 AM ND IR Physician Event Details User 10:50 AM 02/16/18 Timeout: Sign-in Verified by Maverick Schaeffer RN at 02/16/2018 10:56 AM ND 10:56 AM 02/16/18 Timeout: TimeOut Verified by Maverick Schaeffer RN at 02/16/2018 10:56 AM ND 10:59 AM 02/16/18 Timeout: Sign-out Verified by Maverick Schaeffer RN at 02/16/2018 11:01 AM ND VANCOMYCIN, TROUGH Collected: 02/10/2018 Status: F Source: [place] LEVEL 2:00 PM [facility] [place] Order Comment: Time Medication is to be Given? 1500 TYPE CODE TESTS RESULT OUT OF REFERENCE UNITS RANGE LAB L501.8820 5.0-15.0 ug/mL High VANCO, TROUGH 15.3 Result Comment: VANCOMYCIN STANDARED DRUG THERAPY TROUGH LEVEL: 5.0 - 15.0 mg/L VANCOMYCIN HIGH INTENSITY THERAPY TROUGH LEVEL: 15.0 - 20.0 mg/L High Intensity therapy recommended for serious life threatening infections include: - Meningitis -Endocarditis -Pneumonia (Ventilator/Healtcare Associated) -Sepsis PLEASE CONTACT PHARMACY SERVICES (#[id number]) FOR INTERPRETATION OF RESULTS. Performed By: #### L501.8820 #### [facility] [address] [place], [address] CHEM 6 - CHRI Collected: 02/10/2018 Status: F Source: [facility] 7:51 AM [facility] REPOSITORY TYPE CODE TESTS RESULT OUT OF REFERENCE UNITS RANGE LAB BUN 7-22 mg/dL BUN 20 LAB CREA 0.50-1.20 mg/dL Creatinine 1.17 LAB NA 133-143 mmol/L Sodium 138 LAB K 3.5-5.0 mmol/L Potassium 4.0 LAB CL 98-108 mmol/L Chloride 108 LAB CO2 22-30 mmol/L Carbon Dioxide 23 LAB GFR >60 mL/min/1.73 Low sqM Est GFR,non 47 Estonian LAB GFRA >60 mL/min/1.73 Low sqM Est GFR, 57 LAB GAP 7-17 mmol/L Anion Gap 11 Performed By: #### CBCDFJ #### [place], [facility] [address] [place], [place] [address] CBC WITH DIFF ENOCH Collected: 02/10/2018 Status: F Source: [facility] 7:51 AM [facility] REPOSITORY TYPE CODE TESTS RESULT OUT OF REFERENCE UNITS RANGE LAB WBC 3.98-10.04 K/uL Low WBC Count 3.27 LAB RBC 3.93-5.22 M/uL RBC Count 4.10 LAB HGB 11.2-15.7 g/dL Low Hemoglobin 10.2 LAB HCT 34.1-44.9 % Low Hematocrit 33.3 LAB MCV 79.4-94.8 fL Mean Cell Volume 81.2 Result Comment: Results inconsistent with previous results LAB MCH 25.6-32.2 pg Low Mean Cell Hgb 24.9 LAB MCHC 32.2-35.5 g/dL Low Mean Cell Hgb alert Conc 30.6 LAB RDW 11.7-14.4 % RBC Distribution High 20.5 LAB PLT 182-369 K/uL Low Platelet Count 79 Result Comment: Automated platelet count confirmed by manual slide review LAB MPV 9.4-12.3 fL Mean Platelet 10.9 Volume LAB NRBC 0.0-0.2 /100 WBC NUCLEATED RBC 0.0 LAB DTYPE DIFFERENTIAL Electronic TYPE Differential LAB IGRE % IMMATURE GRANS 0.3 % LAB SEGS % NEUTROPHIL 54.1 SEGMENTED LAB LYM % LYMPHOCYTE % 23.9 LAB MON % MONOCYTE % 10.7 LAB EOS % EOSINOPHIL % 10.1 LAB BASO % BASOPHIL % 0.9 LAB IGABS <0.04 K/uL IMMATURE GRANS 0.01 ABSOLUTE LAB SBANS 1.56-6.13 K/uL SEGS + 1.77 Bands,Absolute LAB ALYM 1.18-3.74 K/uL Abs Lymph 0.78 Low LAB AMONO 0.24-0.86 K/uL Abs Laurel 0.35 LAB AEOS <0.37 K/uL Abs Eos 0.33 LAB ABASO <0.09 K/uL Abs Baso 0.03 Performed By: #### CBCDFJ #### [facility], [facility] [address] [place], [place] [address] VANCOMYCIN, PEAK LEVEL Collected: 02/09/2018 Status: F Source: [place] 5:05 PM [facility] [place] [facility] Order Comment: Time Medication is to be Given? 1600 TYPE CODE TESTS RESULT OUT OF RANGE REFERENCE UNITS LAB L501.8800 ug/mL Normal VANCO, PK 24.5 Result Comment: NOTE: Specimen collection differencs of as little as 15 minutes in sampling time can result in a 0 - 15 mcg/dL difference in measure Vancomycin concentrations. It is important that consistency be maintained in the dosage intervals and infusion period throughout the course of therapy for comparison of vancomycien concentrations to be valid. PEAK levels collected at 2 hours after completion of 60 mniute infusion are less variable with a range of 18.0 - 26.0 mcg/dL PLEASE CONTACT PHARMACY SERVICES (#[id number]) FOR INTERPRETATION OF RESULTS Performed By: #### L501.8800 #### [place] [facility] [address] [place], [address] GLUCOSE POC Collected: 02/06/2018 Status: F Source: [place] 7:12 AM [facility] REPOSITORY TYPE CODE TESTS RESULT OUT OF RANGE REFERENCE UNITS LAB [id number](LO 70-99 mg/dL INC) Normal Glucose POC 87 Performed By: #### [id number] #### DL POC [address] [place] [address] CMP Collected: 02/06/2018 Status: F Source: [place] 5:25 AM [facility] REPOSITORY TYPE CODE TESTS RESULT OUT OF RANGE REFERENCE UNITS LAB [id number](L 70-99 mg/dL OINC) Glucose Normal Lvl 90 LAB 70343337(L 8.4-10.2 mg/dL OINC) Calcium Normal Lvl 8.7 LAB 92189067(L 136-145 mEq/L OINC) Sodium Normal Lvl 140 LAB 92435810(L 3.5-5.1 mEq/L OINC) Normal Potassium Lvl 4.0 LAB 18974886(L 98-107 mEq/L OINC) High Chloride 112 LAB 80343567(L 24.0-30.0 mEq/L OINC) Low CO2 23.6 LAB 78778381(L 7-18 mg/dL OINC) BUN Normal 15 LAB 0473159(LO 0.6-1.3 mg/dL INC) Normal Creatinine 1.2 LAB 18535789(L 42-121 Int._Unit/ OINC) High L Alk Phos 155 LAB 07530733(L 0.2-1.0 mg/dL OINC) High Bili Total 2.3 LAB 35461896(L 3.2-5.0 G/DL OINC) Low Albumin Lvl 2.6 LAB 27262242(L 6.4-8.3 G/DL OINC) Low Total Protein 6.3 LAB 17993388(L 10-40 Int._Unit/ OINC) L ALT Normal 16 LAB 14793367(L 10-42 Int._Unit/ OINC) L AST Normal 41 LAB 33942675(L 5.4-30.0 ratio OINC) Normal BUN/Creat Ratio 12.5 LAB 21014182(L 2.0-4.0 G/DL OINC) Globulin Normal 3.7 LAB 89591461(L 1.1-1.9 ratio OINC) Low A/G Ratio 0.7 Performed By: #### [id number] #### DL [facility] [address] [place] [address] AMMONIA Collected: 02/06/2018 Status: F Source: [place] 5:25 AM [facility] REPOSITORY TYPE CODE TESTS RESULT OUT OF RANGE REFERENCE UNITS LAB 65422915(LO 7-35 mcmol INC) Normal Ammonia 30 Performed By: #### [id number] #### DL [facility] [place] [id number] EGFR Collected: 02/06/2018 Status: F Source: [place]UD[place] 5:[address] [facility] REPOSITORY Order Comment: Order added by Discern Expert. TYPE CODE TESTS RESULT OUT OF RANGE REFERENCE UNITS LAB 35087370(LO mL/min/1.73 INC) m2 Normal eGFR 45 LAB 75200619(LO mL/min/1.73 INC) m2 Normal eGFR AA 55 Performed By: #### [id number] #### DL [facility] [place] [id number] CBC W/ MANUAL DIFF Collected: 02/06/2018 Status: F Source: [place] 5:25 AM [facility] REPOSITORY TYPE CODE TESTS RESULT OUT OF REFERENCE UNITS RANGE LAB 18948625(LO 3.6-11.0 E3/mcL INC) Low WBC 3.3 LAB 23816953(LO 3.90-5.40 E6/mcL INC) Low RBC 3.80 LAB 66326418(LO 12.0-16.0 G/DL INC) Low Hgb 9.6 LAB 88533323(LO 36.0-48.0 % INC) Low Hct 29.5 LAB 03583064(LO 11.5-14.5 % INC) High RDW 20.8 LAB 17280876(LO 27.0-31.0 pg INC) Low MCH 25.3 LAB 77743145(LO 33.0-37.0 G/DL INC) Low MCHC 32.5 LAB 68398471(LO 78.0-100.0 fL INC) Low MCV 77.7 LAB 37576640(LO 7.4-11.0 fL INC) Low MPV 7.2 LAB 64958992(LO 130-400 E3/mcL INC) Low Platelet 72 Performed By: #### [id number] #### DL [facility] [place] [id number] MANUAL DIFF Collected: 02/06/2018 Status: F Source: [place] 5:25 AM [facility] REPOSITORY Order Comment: Order added by Discern Expert. TYPE CODE TESTS RESULT OUT OF REFERENCE UNITS RANGE LAB 06242915( 37-75 % LOINC) Segs Man 57 Normal LAB 91659906( 0-1 LOINC) Band Man 3 High LAB 62136682( 14-48 % LOINC) Lymph Man 30 Normal LAB 22344639( 1-11 % LOINC) Monocyte Man 5 Normal LAB 87873800( 0-5 % LOINC) Eos Man 5 Normal LAB 28629158( 0-1 % LOINC) Basophil Man 0 Normal LAB 05528079( LOINC) RBC Morph SEE Normal MORPHOLOGY LAB 46221994( LOINC) Hypochromasia 1+ Normal LAB 32103783( LOINC) Poikilocytosis 1+ Normal LAB 97144484( LOINC) Polychromasia 1+ Normal LAB 58491816( LOINC) Anisocytosis 2+ Normal Performed By: #### [id number] #### DL [facility] [address] [place] [address] ZZPLT MORPH Collected: 02/06/2018 Status: F Source: [place] 5:25 AM [facility] TYPE CODE TESTS RESULT OUT OF RANGE REFERENCE UNITS LAB 77039968(L OINC) Normal Platelet DECREASED Estimate LAB 68413242(L OINC) Normal Platelet Morph NORMAL Performed By: #### [id number] #### DL [facility] [address] [place] [address] .MANUAL ABS Collected: 02/06/2018 Status: F Source: [place] 5:25 AM [facility] REPOSITORY Order Comment: Order added by Discern Expert. TYPE CODE TESTS RESULT OUT OF RANGE REFERENCE UNITS LAB 02110378(L 1.4-6.5 10x3/ OINC) Normal Segs Abs Man 1.9 LAB 52938959(L 1.2-3.4 10x3/ OINC) Low Lymph Abs Man 1.0 LAB 32006554(L 0.0-0.7 10x3/ OINC) Normal Laurel Abs Man 0.2 LAB 65838785(L 0.0-0.5 10x3/ OINC) Normal Eos Abs Man 0.2 LAB 63682375(L 0.0-0.2 10x3/ OINC) Normal Basophil Abs 0.0 Man Performed By: #### [id number] #### DL [facility] [address] [place] [address] GLUCOSE POC Collected: 02/05/2018 Status: F Source: [place] 8:46 PM [facility] REPOSITORY TYPE CODE TESTS RESULT OUT OF REFERENCE UNITS RANGE LAB 60094103(LO 70-99 mg/dL INC) High Glucose POC 171 Performed By: #### [id number] #### DL POC Subsection [address] [place] [address] GLUCOSE POC Collected: 02/05/2018 Status: F Source: [place] 4:57 PM [facility] REPOSITORY TYPE CODE TESTS RESULT OUT OF RANGE REFERENCE UNITS LAB 67388283(LO 70-99 mg/dL INC) Normal Glucose POC 84 Performed By: #### [id number] #### DL POC Subsection [address] [place] [address] GLUCOSE POC Collected: 02/05/2018 Status: F Source: [place] 11:23 AM [facility] REPOSITORY TYPE CODE TESTS RESULT OUT OF REFERENCE UNITS RANGE LAB 83148019(LO 70-99 mg/dL INC) High Glucose POC 142 Performed By: #### [id number] #### DL POC [address]section [address] [place] [address] CBC W/DIFF, AUTOMATED Collected: 01/19/2018 Status: F Source: [place] 11:30 AM [facility] [place] TYPE CODE TESTS RESULT OUT OF RANGE REFERENCE UNITS LAB L100.1000 4.4-11.0 K/mm3 Low WBC 3.3 LAB L100.1200 4.2-5.4 M/mm3 Low RBC 3.20 LAB L100.1300 12.0-15.0 g/dl Low HGB 8.3 LAB L100.1400 37-47 % Low HCT 27.0 LAB L100.1500 81-99 fL Normal MCV 84.4 LAB L100.1600 27.0-32.0 pg Low MCH 25.9 LAB L100.1700 32-36 g/gl Low MCHC 30.7 LAB L100.1810 11.6-14.6 % High RDW CV 19.3 LAB L100.1820 35.1-43.9 fl High RDW SD 58.7 LAB L100.1900 150-450 K/mm3 Low PLT 79 LAB L100.2000 6.2-12.0 fl Normal MPV 9.1 LAB L100.2100 47-70 % Normal NEUT% 58.1 LAB L100.2200 19-41 % Normal LY% 24.8 LAB L100.2300 0-10 % Normal MONO% 9.8 LAB L100.2400 0-5 % High EO% 6.7 LAB L100.2500 0-1 % Normal BASO% 0.6 LAB L100.2550 0.0-0.9 % Normal IM GRAN % 0.000 Result Comment: IG% - Immature Granulocytes (promyelocytes, myelocytes and metamyelocytes) > 1% indicates that a LEFT SHIFT is Present. LAB L100.2620 2.0-7.7 X10 3/uL Low Absolute Neut 1.9 LAB L100.2720 0.83-4.51 X10 3/ul Low Absolute Lymph 0.81 Performed By: #### L100.0100, L101.9900 #### [facility] [address] [place], [place], [address] ERYTHROCYTE SED RATE Collected: 01/19/2018 Status: F Source: [place] 11:30 AM [facility] [place] TYPE CODE TESTS RESULT OUT OF RANGE REFERENCE UNITS LAB L102.0000 0-30 mm/hr Normal SED RATE 9 Performed By: #### L100.0100, L101.9900 #### [facility] [address] [place], [address] VANCOMYCIN, TROUGH Collected: 01/19/2018 Status: F Source: [place] LEVEL 11:30 AM [facility] [place] [facility] Order Comment: Time Medication is to be Given? 0000 TYPE CODE TESTS RESULT OUT OF REFERENCE UNITS RANGE LAB L501.8820 5.0-15.0 ug/mL High VANCO, TROUGH 22.3 Result Comment: VANCOMYCIN STANDARED DRUG THERAPY TROUGH LEVEL: 5.0 - 15.0 mg/L VANCOMYCIN HIGH INTENSITY THERAPY TROUGH LEVEL: 15.0 - 20.0 mg/L High Intensity therapy recommended for serious life threatening infections include: - Meningitis -Endocarditis -Pneumonia (Ventilator/Healtcare Associated) -Sepsis PLEASE CONTACT PHARMACY SERVICES (#[id number]) FOR INTERPRETATION OF RESULTS. Performed By: #### L501.8820 #### [facility] [address] [place], [place], [address] BASIC METABOLIC Collected: 01/19/2018 Status: F Source: [place] PROFILE (BMP) 11:30 AM [facility] TYPE CODE TESTS RESULT OUT OF RANGE REFERENCE UNITS LAB L501.0100 74-106 mg/dL High GLU 183 Result Comment: Fasting Glucose result greater than or equal to 126 mg/dL suggests DIABETES MELLITUS per A.D.A. criteria. Please note revised GLUCOSE reference range effective 2017. LAB L501.1000 7-18 mg/dL High BUN 27 LAB L501.1100 0.55-1.02 mg/dL High CREAT,SERUM 1.69 Result Comment: The validity of the calculated GFR AND GFRAA in patients over 70 years has not been determined. Clinical correlation is essential. LAB L501.1110 >60 mL/min Low EST GFR 32 Result Comment: Non- GFR Calc LAB L501.1115 >60 mL/min Low EST GFR - AA 39 Result Comment: GFR Calc LAB L501.1300 10-20 RATIO Normal BUN/CRE 16.0 LAB L501.2200 8.5-10.1 mg/dL Low CA 8.3 LAB L501.5300 136-145 mmol/L NA Normal 141 LAB L501.5600 3.5-5.1 mmol/L K Normal 3.7 LAB L501.5900 98-107 mmol/L High CL 108 LAB L501.6100 21.0-32.0 mmol/L Normal CO2 25.0 LAB L501.6200 5-15 Normal GAP 8 Performed By: #### L500.2500, L500.3400, L501.6710 #### [facility] [address] [place], [address] LIVER PROFILE Collected: 01/19/2018 Status: F Source: [place] 11:30 AM [facility] TYPE CODE TESTS RESULT OUT OF RANGE REFERENCE UNITS LAB L501.1500 6.4-8.2 g/dL Normal T PROT 6.9 LAB L501.1800 3.2-5.0 g/dL Low ALB 2.9 LAB L501.1950 2.2-4.2 g/dL Normal GLOB 4.0 LAB L501.4100 15-37 U/L High AST 49 LAB L501.4305 45-117 U/L High ALK P 145 LAB L501.4405 13-56 U/L Normal ALT 23 LAB L501.4600 0.20-1.00 mg/dL High T BILI 2.80 LAB L501.4700 0.00-0.30 mg/dL High D BILI 0.70 Performed By: #### L500.2500, L500.3400, L501.6710 #### [facility] [address] [place], [address] CRP Collected: 01/19/2018 Status: F Source: [place] 11:30 AM [facility] TYPE CODE TESTS RESULT OUT OF RANGE REFERENCE UNITS LAB L501.6710 0.0-3.0 mg/L High 9.50 C-REACTIVE PROT Result Comment: C-Reactive Protein (CRP) provides useful information for the diagnosis, therapy and monitoring of inflammatory processes and associated diseases. For the evaluation of Relative Risk for Cardiovascular Disease, a High Sensitivity CRP (HSCRP) should be ordered. Performed By: #### L500.2500, L500.3400, L501.6710 #### [facility] [address] [facility] [place], [address] *POC GLUCOSE BATTERY Collected: 01/15/2018 Status: F Source: [facility] 7:42 AM [facility] REPOSITORY TYPE CODE TESTS RESULT OUT OF REFERENCE UNITS RANGE LAB GLUP 70-99 mg/dL High Glucose (poc 123 device) Result Comment: No BRAVE per RN: PATIENT TYPE LAB PCSTYP *POC Capillary SAMPLE TYPE Blood *POC GLUCOSE BATTERY Collected: 01/14/2018 Status: F Source: [facility] 10:13 PM [facility] REPOSITORY TYPE CODE TESTS RESULT OUT OF REFERENCE UNITS RANGE LAB GLUP 70-99 mg/dL High Glucose (poc 185 device) Result Comment: No BRAVE per RN: PATIENT TYPE LAB PCSTYP *POC Capillary SAMPLE TYPE Blood *POC GLUCOSE BATTERY Collected: 01/14/2018 Status: F Source: [facility] 4:08 PM [facility] REPOSITORY TYPE CODE TESTS RESULT OUT OF REFERENCE UNITS RANGE LAB GLUP 70-99 mg/dL High Glucose (poc 165 device) Result Comment: No BRAVE per RN: PATIENT TYPE LAB PCSTYP *POC Capillary SAMPLE TYPE Blood *POC GLUCOSE BATTERY Collected: 01/14/2018 Status: F Source: [facility] 11:23 AM [facility] REPOSITORY TYPE CODE TESTS RESULT OUT OF REFERENCE UNITS RANGE LAB GLUP 70-99 mg/dL High Glucose (poc 218 device) Result Comment: No BRAVE per RN: PATIENT TYPE LAB PCSTYP *POC Capillary SAMPLE TYPE Blood XR CHEST PORTABLE Observed: 01/14/2018 Status: F Source: [facility] 9:42 AM [facility] REPOSITORY EXAM: XR CHEST PORTABLE, 01/13/2018 23:09 PM COMPARISON: December 26, 2017 CLINICAL INDICATIONS: Verify PICC position RELEVANT CLINICAL HISTORY: FINDINGS: (Adequate technique) Life Support Devices: Interval placement right IJ central line with tip in the lower SVC. Chest Wall: Normal Jodi: Normal Mediastinum: Normal Pleural Spaces: No definite pleural effusion. No definite pneumothorax. Lungs: Clear Cardiac Silhouette: Borderline size. Thoracic Aorta: Normal Pulmonary Vessels: Normal, without PVH IMPRESSION: No acute cardiopulmonary findings. *POC GLUCOSE BATTERY Collected: 01/14/2018 Status: F Source: [facility] 7:49 AM [facility] REPOSITORY TYPE CODE TESTS RESULT OUT OF REFERENCE UNITS RANGE LAB GLUP 70-99 mg/dL High Glucose (poc 116 device) Result Comment: No BRAVE per RN: PATIENT TYPE LAB PCSTYP *POC Capillary SAMPLE TYPE Blood HEMOGRAM (CBC AND Collected: 01/14/2018 Status: F Source: [facility] PLATELET) 3:31 AM [facility] REPOSITORY TYPE CODE TESTS RESULT OUT OF REFERENCE UNITS RANGE LAB WBC 3.98-10.04 K/uL Low WBC Count 2.97 LAB RBC 3.93-5.22 M/uL Low RBC Count 2.71 LAB HGB 11.2-15.7 g/dL Low Hemoglobin 7.4 LAB HCT 34.1-44.9 % Low Hematocrit 23.3 LAB MCV 79.4-94.8 fL Mean Cell Volume 86.0 LAB MCH 25.6-32.2 pg Mean Cell Hgb 27.3 LAB MCHC 32.2-35.5 g/dL Low Mean Cell Hgb Conc 31.8 LAB RDW 11.7-14.4 % RBC High Distribution 20.3 LAB PLT 182-369 K/uL Low Platelet Count 64 LAB MPV 9.4-12.3 fL Mean Platelet Volume 9.6 LAB NRBC 0.0-0.2 /100 WBC NUCLEATED RBC 0.0 Performed By: #### HEMOGC, PTPTT, CHM7, HFP, MGO, TSH #### [facility] [address] [place] [address] [place] [address] [place] [address] PT*PTT Collected: 01/14/2018 Status: F Source: [facility] 3:31 AM [facility] REPOSITORY TYPE CODE TESTS RESULT OUT OF RANGE REFERENCE UNITS LAB PT 11.9-14.2 sec High PT 18.6 LAB INR 0.9-1.1 High INR 1.6 LAB PTT 24.0-34.3 sec High PTT 38.8 Performed By: #### HEMOGC, PTPTT, CHM7, HFP, MGO, TSH #### [facility] [address] [place] [id number] [place] [address] [address] CHEM 7 Collected: 01/14/2018 Status: F Source: [facility] 3:31 AM [facility] REPOSITORY TYPE CODE TESTS RESULT OUT OF REFERENCE UNITS RANGE LAB BUN 7-22 mg/dL BUN High 23 LAB NA 133-143 mmol/L Sodium 141 LAB K 3.5-5.0 mmol/L Potassium 4.2 LAB CL 98-108 mmol/L Chloride 108 LAB CO2 22-30 mmol/L Carbon Dioxide 24 LAB GLUC 70-99 mg/dL Glucose High 119 LAB CREA 0.50-1.20 mg/dL High Creatinine 1.27 LAB GAP 7-17 mmol/L Anion Gap 13 LAB BC BUN/CREA Ratio 18 LAB OSMC 278-305 mOsm/kg Osmolality 300 (Calc) LAB GFR >60 mL/min/1.73 Low sqM Est GFR,non 43 Estonian LAB GFRA >60 mL/min/1.73 Low sqM Est GFR, 51 Performed By: #### HEMOGC, PTPTT, CHM7, HFP, MGO, TSH #### [facility] [address] [place] [address] [place] [address] HEPATIC FUNCTION Collected: 01/14/2018 Status: F Source: [facility] 3:31 AM [facility] REPOSITORY TYPE CODE TESTS RESULT OUT OF REFERENCE UNITS RANGE LAB ALB 3.5-5.0 g/dL Low Albumin 3.3 LAB BILD <0.3 mg/dL Bilirubin High Direct 0.9 LAB BILT <1.5 mg/dL Bilirubin High Total 2.8 LAB ALP 32-126 U/L Alkaline High Phosphatase 134 LAB ALT 9-48 U/L ALT 15 LAB AST 14-40 U/L AST 34 LAB TP 6.4-8.3 g/dL Total Protein 6.5 Performed By: #### HEMOGC, PTPTT, CHM7, HFP, MGO, TSH #### [facility] [address] [place] [address] [place] [address] MAGNESIUM Collected: 01/14/2018 Status: F Source: [facility] 3:31 AM [facility] REPOSITORY TYPE CODE TESTS RESULT OUT OF REFERENCE UNITS RANGE LAB MG 1.6-2.6 mg/dL Magnesium 1.9 Performed By: #### HEMOGC, PTPTT, CHM7, HFP, MGO, TSH #### [facility] [address] [place] [address] [place] [address] TSH, HIGH SENSITIVITY Collected: 01/14/2018 Status: F Source: [facility] 3:31 AM [facility] REPOSITORY TYPE CODE TESTS RESULT OUT OF REFERENCE UNITS RANGE LAB TSH 0.550-4.780 uIU/mL TSH, High Sensitivity 3.200 Performed By: #### HEMOGC, PTPTT, CHM7, HFP, MGO, TSH #### [facility] [address] [place] [address] [place] [address] AMMONIA Collected: 01/14/2018 Status: F Source: [facility] 3:31 AM [facility] REPOSITORY TYPE CODE TESTS RESULT OUT OF REFERENCE UNITS RANGE LAB NH3 6-47 umol/L High Ammonia 70 Performed By: #### NH3B #### [facility] [address] [place] [address] [facility] [address] [place], [place] [address] *POC GLUCOSE BATTERY Collected: 01/13/2018 Status: F Source: [facility] 8:30 PM [facility] REPOSITORY TYPE CODE TESTS RESULT OUT OF REFERENCE UNITS RANGE LAB GLUP 70-99 mg/dL High Glucose (poc 210 device) Result Comment: No BRAVE per RN: PATIENT TYPE LAB PCSTYP *POC Capillary SAMPLE TYPE Blood *POC GLUCOSE BATTERY Collected: 01/13/2018 Status: F Source: [facility] 6:11 PM [facility] REPOSITORY TYPE CODE TESTS RESULT OUT OF REFERENCE UNITS RANGE LAB GLUP 70-99 mg/dL High Glucose (poc 197 device) Result Comment: No BRAVE per RN: PATIENT TYPE LAB PCSTYP *POC Capillary SAMPLE TYPE Blood *POC GLUCOSE BATTERY Collected: 01/13/2018 Status: F Source: [facility] 3:44 PM [facility] REPOSITORY TYPE CODE TESTS RESULT OUT OF REFERENCE UNITS RANGE LAB GLUP 70-99 mg/dL High Glucose (poc 116 device) Result Comment: Notified RNread back No BRAVE per RN: PATIENT TYPE LAB PCSTYP *POC Capillary SAMPLE TYPE Blood *POC GLUCOSE BATTERY Collected: 01/13/2018 Status: F Source: [facility] 9:00 AM [facility] REPOSITORY TYPE CODE TESTS RESULT OUT OF REFERENCE UNITS RANGE LAB GLUP 70-99 mg/dL Glucose (poc 94 device) Result Comment: No BRAVE per RN: PATIENT TYPE LAB PCSTYP *POC Capillary SAMPLE TYPE Blood Observed: 01/13/2018 Status: F Source: [facility] BLOOD:ROUTINE I 4:05 AM [facility] REPOSITORY SOURCE: BLOOD, PERIPHERAL: Site not specified RESULT: NO GROWTH DAY 5 OF 5 REPORT STATUS: 01/18/2018 FINAL Performed By: #### FAST #### [place] [address] Blood Cultures processed at: [facility] CBC WITH DIFF ENOCH Collected: 01/13/2018 Status: F Source: [facility] 4:04 AM [facility] REPOSITORY TYPE CODE TESTS RESULT OUT OF REFERENCE UNITS RANGE LAB WBC 3.98-10.04 K/uL WBC Count 2.56 Low LAB RBC 3.93-5.22 M/uL RBC Count 2.61 Low LAB HGB 11.2-15.7 g/dL Hemoglobin 7.2 Low LAB HCT 34.1-44.9 % Hematocrit 22.7 Low LAB MCV 79.4-94.8 fL Mean Cell 87.0 Volume LAB MCH 25.6-32.2 pg Mean Cell 27.6 Hgb LAB MCHC 32.2-35.5 g/dL Mean Cell 31.7 Low Hgb Conc LAB RDW 11.7-14.4 % RBC 20.0 High Distribution LAB PLT 182-369 K/uL Platelet 59 Low Count LAB MPV 9.4-12.3 fL Mean 9.0 Low Platelet Volume LAB NRBC 0.0-0.2 /100 WBC NUCLEATED 0.0 RBC LAB DTYPE Electronic DIFFERENTIAL TYPE Differential LAB IGRE % IMMATURE 0.8 GRANS % LAB SEGS % NEUTROPHIL 48.0 SEGMENTED LAB LYM % LYMPHOCYTE 30.1 % LAB MON % MONOCYTE % 12.5 LAB EOS % EOSINOPHIL 7.8 % LAB BASO % BASOPHIL % 0.8 LAB IGABS <0.04 K/uL IMMATURE <0.04 GRANS ABSOLUTE LAB SBANS 1.56-6.13 K/uL SEGS + 1.23 Low Bands,Absolute LAB ALYM 1.18-3.74 K/uL Abs Lymph 0.77 Low LAB AMONO 0.24-0.86 K/uL Abs Laurel 0.32 LAB AEOS <0.37 K/uL Abs Eos 0.20 LAB ABASO <0.09 K/uL Abs Baso <0.04 Performed By: ###Kannan VASQUEZ #### [facility] [address] [place] [address]493 CHEM 7 ED - CHRI Collected: 01/13/2018 Status: F Source: [facility] 4:04 [facility] REPOSITORY TYPE CODE TESTS RESULT OUT OF REFERENCE UNITS RANGE LAB BUN 7-22 mg/dL BUN 21 LAB CREA 0.50-1.20 mg/dL High Creatinine 1.40 LAB NA 133-143 mmol/L Sodium 139 LAB K 3.5-5.0 mmol/L Potassium 4.2 LAB CL 98-108 mmol/L Chloride High 109 LAB CO2 22-30 mmol/L Carbon Dioxide 23 LAB GLUC 70-99 mg/dL Glucose High 104 LAB GFR >60 mL/min/1.73 Low sqM Est GFR,non 38 Estonian LAB GFRA >60 mL/min/1.73 Low sqM Est GFR, 46 LAB GAP 7-17 mmol/L Anion Gap 11 LAB BC BUN/CREA Ratio 15 LAB OSMC 278-305 mOsm/kg Osmolality 294 (Calc) Performed By: #### PEDRO #### [facility] [address] [place] [address] [id number] TROPONIN - CHRI Collected: 01/13/2018 Status: F Source: [facility] 4:04 [facility] REPOSITORY TYPE CODE TESTS RESULT OUT OF REFERENCE UNITS RANGE LAB TROP <0.11 ng/mL Troponin I 0.01 Performed By: #### PEDRO #### [facility] [address] [place] [address] 56058 GASES - BLOOD Collected: 01/12/2018 Status: F Source: [facility] 11:14 PM [facility] REPOSITORY TYPE CODE TESTS RESULT OUT OF RANGE REFERENCE UNITS LAB 96732952(L OINC) Arterial Normal Sample Type. LAB [id number](L 7.350-7.450 OINC) 7.384 Normal pH. LAB 05532809(L 35.0-45.0 mmHg OINC) 40.9 Normal P CO2. LAB 10859606(L 80-100 mmHg OINC) Low 32 P O2. LAB 24075398(L 22-28 mmol/L OINC) 26 Normal CO2 Tot. LAB 77788347(L 22.0-26.0 mmol/L OINC) 24.5 Normal HCO#. LAB 28993080(L 95-100 % OINC) Low 62 O2 Sat. LAB 18592417(L -2-3 mmol/L OINC) -1 Normal Base Excess. LAB 69775889(L % OINC) 21 Normal FiO2. LAB 98767755(L OINC) L rad Normal Sample Site. LAB 89604524(L OINC) Neg Normal Allens Test. LAB 47250989(L OINC) Room Air Normal O2 Devices. LAB 63243782(L OINC) NOT Normal Vent Mode. CALCULATED LAB 17973342(L OINC) NOT Normal Set CALCULATED RR(b/min). LAB 97072750(L OINC) NOT Normal CPAP/PEEP(cmH CALCULATED 2O). LAB 19685514(L OINC) NOT Normal Tidal CALCULATED Volume(mL). LAB 04089822(L OINC) NOT Normal PSV/IP(cmH2O) CALCULATED . LAB 40020633(L DegC OINC) NOT Normal Patient Temp. CALCULATED LAB 10606904(L OINC) [id number] Normal OPID. Performed By: #### [id number] #### DL POC Subsection [address] [place] [address] PT Collected: 01/12/2018 Status: F Source: [facility] 11:13 PM [facility] REPOSITORY TYPE CODE TESTS RESULT OUT OF RANGE REFERENCE UNITS LAB [id number](LO 1.0-1.2 INC) High INR 1.5 Result Comment: INR Recommended Therapeuptic Ranges: Prophylaxis/treatment of DVT and PE?2.0-3.0 Prevention of systemic embolism?.2.0-3.0 Mechanical prosthetic values?2.5-3.5 CRITICAL VALUES?.>4.0 LAB 84411624(LOINC) 11.6-14.6 second(s) High PT 17.1 Performed By: #### [id number] #### DL Hematology Automated [address] [place] [address] CBC W/ AUTO DIFF Collected: 01/12/2018 Status: F Source: [facility] 11:13 [facility] REPOSITORY TYPE CODE TESTS RESULT OUT OF RANGE REFERENCE UNITS LAB 09438783(L 3.6-11.0 E3/mcL OINC) Low WBC 2.8 LAB 15093105(L 3.90-5.40 E6/mcL OINC) Low RBC 2.89 LAB 03273647(L 12.0-16.0 G/DL OINC) Low Hgb 8.0 LAB 16817493(L 36.0-48.0 % OINC) Low Hct 24.4 LAB 63856798(L 11.5-14.5 % OINC) High RDW 20.9 LAB 69808694(L 27.0-31.0 pg OINC) Normal MCH 27.7 LAB 51649145(L 33.0-37.0 G/DL OINC) Low MCHC 32.8 LAB 69370237(L 78.0-100.0 fL OINC) Normal MCV 84.4 LAB 56076910(L 7.4-11.0 fL OINC) Low MPV 6.8 LAB 82240402(L 130-400 E3/mcL OINC) Low Platelet 75 Performed By: #### [id number] #### DL [employer] [address] [place] [id number] MORPH Collected: 01/12/2018 Status: F Source: [facility] 11:13 [facility] REPOSITORY Order Comment: Order Added by Discern Expert. TYPE CODE TESTS RESULT OUT OF REFERENCE UNITS RANGE LAB 94499279( LOINC) RBC Morph SEE Normal MORPHOLOGY LAB 09326145( LOINC) Hypochromasia 2+ Normal LAB 80847133( LOINC) Anisocytosis 1+ Normal Performed By: #### [id number] #### DL [facility] [place] [id number] ZZPLT MORPH Collected: 01/12/2018 Status: F Source: [facility] 11:13 [facility] REPOSITORY TYPE CODE TESTS RESULT OUT OF RANGE REFERENCE UNITS LAB 93159527(L OINC) Normal Platelet DECREASED Estimate LAB 39880095(L OINC) Normal Platelet Morph NORMAL Performed By: #### [id number] #### DL [facility] [address] [place], [place] [id number] AUTO DIFF Collected: 01/12/2018 Status: F Source: [facility] 11:13 [facility] REPOSITORY Order Comment: Order Added by Discern Expert. TYPE CODE TESTS RESULT OUT OF RANGE REFERENCE UNITS LAB 70469872(L 37.0-75.0 % OINC) Normal Neutro Auto 47.2 LAB 54742638(L 20.0-55.0 % OINC) Normal Lymph Auto 29.2 LAB 22495036(L 0.0-10.0 % OINC) High Laurel Auto 13.8 LAB 12646477(L 0.0-11.0 % OINC) Normal Eos Auto 8.4 LAB 99824285(L 0.0-2.0 % OINC) Normal Basophil Auto 1.4 LAB 09671469(L 1.4-6.5 E3/mcL OINC) Low Neutro 1.3 Absolute LAB 27401594(L 1.2-3.4 E3/mcL OINC) Low Lymph Absolute 0.8 LAB 36859086(L 0.0-0.7 E3/mcL OINC) Normal Laurel Absolute 0.4 LAB 42646937(L 0.0-0.7 E3/mcL OINC) Normal Eos Absolute 0.2 LAB 75013408(L 0.0-0.2 E3/mcL OINC) Normal Basophil 0.0 Absolute Performed By: #### [id number] #### DL [facility] [place] [id number] CMP Collected: 01/12/2018 Status: F Source: [facility] 11:13 [facility] REPOSITORY TYPE CODE TESTS RESULT OUT OF RANGE REFERENCE UNITS LAB 31341048(L 70-99 mg/dL OINC) High Glucose Lvl 131 LAB 90013167(L 8.4-10.2 mg/dL OINC) Calcium Normal Lvl 8.8 LAB 43941781(L 136-145 mEq/L OINC) Sodium Normal Lvl 138 LAB 66804830(L 3.5-5.1 mEq/L OINC) Normal Potassium Lvl 4.1 LAB 00127095(L 98-107 mEq/L OINC) Chloride Normal 105 LAB 48620525(L 24.0-30.0 mEq/L OINC) CO2 Normal 24.0 LAB 00596190(L 7-18 mg/dL OINC) High BUN 21 LAB 3147551(LO 0.6-1.3 mg/dL INC) High Creatinine 1.5 LAB 50716175(L 42-121 Int._Unit/ OINC) L Alk Phos Normal 121 LAB 16485680(L 0.2-1.0 mg/dL OINC) High Bili Total 3.4 LAB 80452136(L 3.2-5.0 G/DL OINC) Albumin Normal Lvl 3.2 LAB 80395186(L 6.4-8.3 G/DL OINC) Total Normal Protein 6.5 LAB 95017106(L 10-40 Int._Unit/ OINC) L ALT Normal 19 LAB 12740455(L 10-42 Int._Unit/ OINC) High L AST 49 LAB 78450601(L 5.4-30.0 ratio OINC) Normal BUN/Creat Ratio 14.0 LAB 83207076(L 2.0-4.0 G/DL OINC) Globulin Normal 3.3 LAB 22896562(L 1.1-1.9 ratio OINC) Low A/G Ratio 1.0 Performed By: #### [id number] #### DL [employer] [place] [address] EGFR Collected: 01/12/2018 Status: F Source: [facility] 11:13 PM [facility] REPOSITORY Order Comment: Order added by Discern Expert. TYPE CODE TESTS RESULT OUT OF RANGE REFERENCE UNITS LAB 72118840(LO mL/min/1.73 INC) m2 Normal eGFR 35 LAB 08172091(LO mL/min/1.73 INC) m2 Normal eGFR AA 43 Performed By: #### [id number] #### DL Brenda [address] [place] [address] INSERTION CVC TUNNELED Observed: 01/12/2018 Status: F Source: [facility] 1:49 PM [facility] REPOSITORY EXAM: IR INSERTION CVC TUNNELED, 01/12/2018 09:36 AM CLINICAL INDICATIONS: M71.072:Abscess of bursa of left ankle MEDICATIONS: 8:57 AM 01/12/18 fentaNYL (SUBLIMAZE) injection 300 mcg 50 mcg Route: Intravenous; 8:57 AM 01/12/18 midazolam (VERSED) injection 10 mg 1 mg Route: Intravenous; 9:05 AM 01/12/18 fentaNYL (SUBLIMAZE) injection 300 mcg 50 mcg Route: Intravenous; 9:05 AM 01/12/18 midazolam (VERSED) injection 10 mg 1 mg Route: Intravenous; 9:26 AM 01/12/18 midazolam (VERSED) injection 10 mg 1 mg Route: Intravenous; 9:27 AM 01/12/18 lidocaine-epinephrine 2 %-1:254090 injection 20 mL 12 mL Route: Other; Total Fluoro Time: 0.6 minutes Operators: Dr. Archer (attending), Dr. Chen (fellow), Dr. Roland (resident). Consent: Following discussion of the risks, benefits and alternatives of the procedure, written informed consent was obtained. Moderate Sedation: I performed Moderate Sedation which included the presence of a nurse that assisted in monitoring the patients level of consciousness and physiological status. After administration of sedative medication(s), I spent 30 minutes of continuous [id number] time with the patient. COMPARISON: Chest radiograph, 12/26/2017. TIME OUT: Prior to the procedure a time out was performed in the presence of the patient and all personnel involved in this case. The patient identity, procedure type, procedure side/site, and allergies were verified. .............................................................. TECHNIQUE: Position: The patient was transferred to the IR laboratory and was positioned supine on the procedural table. Venous Entry: Preliminary ultrasound demonstrated a patent right internal jugular vein which was documented. The appropriate area was prepped and draped using maximum sterile barrier technique. This consisted of cap, mask, hand hygiene, sterile gown and gloves, 2% Chlorhexidine solution for cutaneous antisepsis and occlusive sterile draping of the field. Procedure: Local anesthesia was obtained using 2% lidocaine. Under direct ultrasound guidance the vein was accessed and a 5-Setswana dilator was placed. Local anesthesia was given in the subcutaneous tissues extending from the neck incision to the upper thorax. A tunneled catheter was advanced through the subcutaneous tissues from the upper thorax to the neck incision. The dilator was exchanged over a wire for an introducer. The dilator and wire were removed from the introducer. The catheter was advanced through the introducer and was positioned under fluoroscopy with its tip in the right atrium. The introducer was removed, keeping the catheter in place. Immediately following placement, the catheter lumens aspirated and flushed without difficulty. The catheter was secured to the skin using a suture. The neck incision was closed using Steri-Strips. A sterile, occlusive dressing was placed on the skin over the catheter entry site. DEVICE: Type: Tunneled Catheter: Triple lumen Length: Cut to measured length FINDINGS: The tip of the catheter was positioned in the right atrium. IMPRESSION: Successful placement of a right IJ triple-lumen tunneled catheter. Sindy Charles D.O. was in the room and participated during all huang portions of this procedure. I personally viewed and interpreted these images and I have reviewed and approved this report. Most Recent Value Fluoro time: 0.6 minutes Rad Dose: 3 mGy IR Meds Event Details User 8:46 AM 01/12/18 Timeout: Sign-in Verified by Carlitos Davison RN at 01/12/2018 8:46 AM AB 8:57 AM 01/12/18 fentaNYL (SUBLIMAZE) injection 300 mcg 50 mcg Given Rate: 0 Route: Intravenous AB 8:57 AM 01/12/18 midazolam (VERSED) injection 10 mg 1 mg Given Rate: 0 Route: Intravenous AB 9:01 AM 01/12/18 Timeout: TimeOut Verified by Carlitos Davison RN at 01/12/2018 9:01 AM AB 9:05 AM 01/12/18 fentaNYL (SUBLIMAZE) injection 300 mcg 50 mcg Given Rate: 0 Route: Intravenous AB 9:05 AM 01/12/18 midazolam (VERSED) injection 10 mg 1 mg Given Rate: 0 Route: Intravenous AB 9:26 AM 01/12/18 midazolam (VERSED) injection 10 mg 1 mg Given Rate: 0 Route: Intravenous AB 9:27 AM 01/12/18 lidocaine-epinephrine 2 %-1:[id number] injection 20 mL 12 mL Given Rate: 0 Route: Other TM 9:35 AM 01/12/18 Timeout: Sign-out Verified by Carlitos Davison RN at 01/12/2018 9:35 AM AB IR Physician Event Details User 8:46 AM 01/12/18 Timeout: Sign-in Verified by Carlitos Davison RN at 01/12/2018 8:46 AM AB 9:01 AM 01/12/18 Timeout: TimeOut Verified by Carlitos Davison RN at 01/12/2018 9:01 AM AB 9:35 AM 01/12/18 Timeout: Sign-out Verified by Carlitos Davison RN at 01/12/2018 9:35 AM AB *POC GLUCOSE BATTERY Collected: 01/12/2018 Status: F Source: [facility] 11:14 AM [facility] REPOSITORY TYPE CODE TESTS RESULT OUT OF REFERENCE UNITS RANGE LAB GLUP 70-99 mg/dL High Glucose (poc 154 device) Result Comment: No BRAVE per RN: PATIENT TYPE LAB PCSTYP *POC Capillary SAMPLE TYPE Blood *POC GLUCOSE BATTERY Collected: 01/12/2018 Status: F Source: [facility] 7:24 AM [facility] REPOSITORY TYPE CODE TESTS RESULT OUT OF REFERENCE UNITS RANGE LAB GLUP 70-99 mg/dL High Glucose (poc 143 device) Result Comment: No BRAVE per RN: PATIENT TYPE LAB PCSTYP *POC Capillary SAMPLE TYPE Blood Observed: 01/12/2018 Status: F Source: [facility] URINE CULTURE -UHE 7:21 AM [facility] REPOSITORY SOURCE: URINE-CLEAN CATCH: RESULT: NO GROWTH REPORT STATUS: 01/13/2018 FINAL Performed By: #### UR #### [place] [address] Blood Cultures processed at: [facility] HEMOGRAM (CBC AND Collected: 01/12/2018 Status: F Source: [facility]) 1:53 AM [facility] REPOSITORY TYPE CODE TESTS RESULT OUT OF REFERENCE UNITS RANGE LAB WBC 3.98-10.04 K/uL Low WBC Count 2.83 LAB RBC 3.93-5.22 M/uL Low RBC Count 2.82 LAB HGB 11.2-15.7 g/dL Low Hemoglobin 7.7 LAB HCT 34.1-44.9 % Low Hematocrit 24.3 LAB MCV 79.4-94.8 fL Mean Cell Volume 86.2 LAB MCH 25.6-32.2 pg Mean Cell Hgb 27.3 LAB MCHC 32.2-35.5 g/dL Low Mean Cell Hgb Conc 31.7 LAB RDW 11.7-14.4 % RBC High Distribution 20.2 LAB PLT 182-369 K/uL Low Platelet Count 66 LAB MPV 9.4-12.3 fL Low Mean Platelet Volume 9.0 LAB NRBC 0.0-0.2 /100 WBC NUCLEATED RBC 0.0 Performed By: #### HEMOGC, CHM7, HFP, MGO, PTPTT #### [facility] [address] [place] [address] [facility] [address] [place] [address] CHEM 7 Collected: 01/12/2018 Status: F Source: [facility] 1:53 AM [facility] REPOSITORY TYPE CODE TESTS RESULT OUT OF REFERENCE UNITS RANGE LAB BUN 7-22 mg/dL BUN 19 LAB NA 133-143 mmol/L Sodium 138 LAB K 3.5-5.0 mmol/L Potassium 4.1 LAB CL 98-108 mmol/L Chloride 106 LAB CO2 22-30 mmol/L Carbon Dioxide 25 LAB GLUC 70-99 mg/dL Glucose High 154 LAB CREA 0.50-1.20 mg/dL High Creatinine 1.40 LAB GAP 7-17 mmol/L Anion Gap 11 LAB BC BUN/CREA Ratio 14 LAB OSMC 278-305 mOsm/kg Osmolality 295 (Calc) LAB GFR >60 mL/min/1.73 Low sqM Est GFR,non 38 Estonian LAB GFRA >60 mL/min/1.73 Low sqM Est GFR, 46 Performed By: #### HEMOGC, CHM7, HFP, MGO, PTPTT #### [facility] [address] [place] [address] [address] [place] [address] HEPATIC FUNCTION Collected: 01/12/2018 Status: F Source: [facility] PANEL 1:53 AM [facility] REPOSITORY TYPE CODE TESTS RESULT OUT OF REFERENCE UNITS RANGE LAB ALB 3.5-5.0 g/dL Low Albumin 3.4 LAB BILD <0.3 mg/dL Bilirubin High Direct 1.0 LAB BILT <1.5 mg/dL Bilirubin High Total 2.9 LAB ALP 32-126 U/L Alkaline Phosphatase 125 LAB ALT 9-48 U/L ALT 13 LAB AST 14-40 U/L AST 35 LAB TP 6.4-8.3 g/dL Total Protein 6.5 Performed By: #### HEMOGC, CHM7, HFP, MGO, PTPTT #### [facility] [address] [place] [address] [facility] [address] [place] [address] MAGNESIUM Collected: 01/12/2018 Status: F Source: [facility] 1:53 AM [facility] REPOSITORY TYPE CODE TESTS RESULT OUT OF REFERENCE UNITS RANGE LAB MG 1.6-2.6 mg/dL Magnesium 2.0 Performed By: #### HEMOGC, CHM7, HFP, MGO, PTPTT #### [facility] [address] [place] [id number] [place] [address] [place] [address] PT*PTT Collected: 01/12/2018 Status: F Source: [facility] 1:53 AM [facility] REPOSITORY TYPE CODE TESTS RESULT OUT OF RANGE REFERENCE UNITS LAB PT 11.9-14.2 sec High PT 17.0 LAB INR 0.9-1.1 High INR 1.4 LAB PTT 24.0-34.3 sec High PTT 35.6 Performed By: #### HEMOGC, CHM7, HFP, MGO, PTPTT #### [facility] [address] [place] [address] [place] [address] *POC GLUCOSE BATTERY Collected: 01/11/2018 Status: F Source: [facility] 11:04 PM [facility] REPOSITORY TYPE CODE TESTS RESULT OUT OF REFERENCE UNITS RANGE LAB GLUP 70-99 mg/dL High Glucose (poc 194 device) Result Comment: No BRAVE per RN: PATIENT TYPE LAB PCSTYP *POC Capillary SAMPLE TYPE Blood *POC GLUCOSE BATTERY Collected: 01/11/2018 Status: F Source: [facility] 8:35 PM [facility] REPOSITORY TYPE CODE TESTS RESULT OUT OF REFERENCE UNITS RANGE LAB GLUP 70-99 mg/dL High Glucose (poc 183 device) Result Comment: No BRAVE per RN: PATIENT TYPE LAB PCSTYP *POC Capillary SAMPLE TYPE Blood *POC GLUCOSE BATTERY Collected: 01/11/2018 Status: F Source: [facility] 4:32 PM [facility] REPOSITORY TYPE CODE TESTS RESULT OUT OF REFERENCE UNITS RANGE LAB GLUP 70-99 mg/dL High Glucose (poc 215 device) Result Comment: No BRAVE per RN: PATIENT TYPE LAB PCSTYP *POC Capillary SAMPLE TYPE Blood HGB & HCT Collected: 01/11/2018 Status: F Source: [facility] 2:30 PM [facility] REPOSITORY TYPE CODE TESTS RESULT OUT OF REFERENCE UNITS RANGE LAB HGB 11.2-15.7 g/dL Low Hemoglobin 7.8 LAB HCT 34.1-44.9 % Low Hematocrit 24.5 Performed By: #### HH #### [facility] [address] [place] [id number] [place] [address] [address] [place] [address] *POC GLUCOSE BATTERY Collected: 01/11/2018 Status: F Source: [facility] 11:16 AM [facility] REPOSITORY TYPE CODE TESTS RESULT OUT OF REFERENCE UNITS RANGE LAB GLUP 70-99 mg/dL High Glucose (poc 228 device) Result Comment: No BRAVE per RN: PATIENT TYPE LAB PCSTYP *POC Capillary SAMPLE TYPE Blood IRON*TIBC (TRANSFERRIN) Collected: 01/11/2018 Status: F Source: [facility] 7:48 AM [facility] REPOSITORY TYPE CODE TESTS RESULT OUT OF REFERENCE UNITS RANGE LAB IRON 40-174 mcg/dL Iron 68 LAB TIBC 298-596 mcg/dL Total Iron Binding Capacity 364 LAB IRONS 20-55 % Low *Iron*Saturation 19 LAB MORALES 200-400 mg/dL Transferrin 244 Performed By: #### IRBC #### [facility] [address] [place] [address] [address] [place] [address] FERRITIN Collected: 01/11/2018 Status: F Source: [facility] 7:48 AM [facility] REPOSITORY TYPE CODE TESTS RESULT OUT OF RANGE REFERENCE UNITS LAB FERI 10-291 ng/mL *Ferritin 20 Performed By: #### FERIB #### [facility] [address] [place] [address] [address] [place] [address] *POC GLUCOSE BATTERY Collected: 01/11/2018 Status: F Source: [facility] 7:09 AM [facility] REPOSITORY TYPE CODE TESTS RESULT OUT OF REFERENCE UNITS RANGE LAB GLUP 70-99 mg/dL High Glucose (poc 112 device) Result Comment: No BRAVE per RN: PATIENT TYPE LAB PCSTYP *POC Capillary SAMPLE TYPE Blood Observed: 01/11/2018 Status: F Source: [facility] TYPE AND CROSS 5:10 AM [facility] REPOSITORY ABO/RH(D): O POSITIVE ANTIBODY SCREEN: NEGATIVE UNIT NUMBER: [id number] BLOOD COMPONENT TYPE: Red Cells, Leukoreduced_[id number] STATUS OF UNIT: Issued, Final TRANSFUSION STATUS: OK TO TRANSFUSE CROSSMATCH RESULT: Electronically Compatible Performed By: #### XM #### [facility] [address] [place], [place] [id number] [place] [address] [place] [id number] HEMOGRAM (CBC AND Collected: 01/11/2018 Status: F Source: [facility] PLATELET) 1:51 AM [facility] REPOSITORY TYPE CODE TESTS RESULT OUT OF REFERENCE UNITS RANGE LAB WBC 3.98-10.04 K/uL Low WBC Count 2.72 LAB RBC 3.93-5.22 M/uL Low RBC Count 2.51 LAB HGB 11.2-15.7 g/dL Low alert Hemoglobin 6.8 Result Comment: This result has been called to RENALDO VINCENT by Urmila Lopez on 01 11 2018 at 0435, and has been read back. LAB HCT 34.1-44.9 % Hematocrit Low 21.5 LAB MCV 79.4-94.8 fL Mean Cell Volume 85.7 LAB MCH 25.6-32.2 pg Mean Cell Hgb 27.1 LAB MCHC 32.2-35.5 g/dL Mean Cell Hgb Low Conc 31.6 LAB RDW 11.7-14.4 % RBC Distribution High 20.8 LAB PLT 182-369 K/uL Platelet Count Low 63 LAB MPV 9.4-12.3 fL Mean Platelet Low Volume 9.0 LAB NRBC 0.0-0.2 /100 WBC NUCLEATED RBC High 0.7 Performed By: #### HEMOGC, CHM7, HFP, MGO, PTPTT #### [facility] [address] [place] [address] [facility] [address] [place] [address] CHEM 7 Collected: 01/11/2018 Status: F Source: [facility] 1:51 AM [facility] REPOSITORY TYPE CODE TESTS RESULT OUT OF REFERENCE UNITS RANGE LAB BUN 7-22 mg/dL BUN 19 LAB NA 133-143 mmol/L Sodium 141 LAB K 3.5-5.0 mmol/L Potassium 4.1 LAB CL 98-108 mmol/L Chloride 107 LAB CO2 22-30 mmol/L Carbon Dioxide 25 LAB GLUC 70-99 mg/dL Glucose High 135 LAB CREA 0.50-1.20 mg/dL High Creatinine 1.41 LAB GAP 7-17 mmol/L Anion Gap 13 LAB BC BUN/CREA Ratio 13 LAB [facility] 278-305 mOsm/kg Osmolality 299 (Calc) LAB GFR >60 mL/min/1.73 Low sqM Est GFR,non 38 Estonian LAB GFRA >60 mL/min/1.73 Low sqM Est GFR, 46 Performed By: #### HEMOGC, CHM7, HFP, MGO, PTPTT #### [facility] [address] [place] [address] [address] [place] [address] HEPATIC FUNCTION Collected: 01/11/2018 Status: F Source: [facility] 1:51 AM [facility] REPOSITORY TYPE CODE TESTS RESULT OUT OF REFERENCE UNITS RANGE LAB ALB 3.5-5.0 g/dL Low Albumin 3.3 LAB BILD <0.3 mg/dL Bilirubin High Direct 0.9 LAB BILT <1.5 mg/dL Bilirubin High Total 3.0 LAB ALP 32-126 U/L Alkaline Phosphatase 122 LAB ALT 9-48 U/L ALT 12 LAB AST 14-40 U/L AST 29 LAB TP 6.4-8.3 g/dL Low Total Protein 6.3 Performed By: #### HEMOGC, CHM7, HFP, MGO, PTPTT #### [facility] [address] [place] [address] [place] [address] MAGNESIUM Collected: 01/11/2018 Status: F Source: [facility] 1:51 AM [facility] REPOSITORY TYPE CODE TESTS RESULT OUT OF REFERENCE UNITS RANGE LAB MG 1.6-2.6 mg/dL Magnesium 1.9 Performed By: #### HEMOGC, CHM7, HFP, MGO, PTPTT #### [facility] [address] [place] [address] [facility] [address] [place] [address] PT*PTT Collected: 01/11/2018 Status: F Source: [facility] 1:51 AM [facility] REPOSITORY TYPE CODE TESTS RESULT OUT OF RANGE REFERENCE UNITS LAB PT 11.9-14.2 sec High PT 17.9 LAB INR 0.9-1.1 High INR 1.5 LAB PTT 24.0-34.3 sec High PTT 35.6 Performed By: #### HEMOGC, CHM7, HFP, MGO, PTPTT #### [facility] [address] [place] [address] [address] [place] [address] *POC GLUCOSE BATTERY Collected: 01/10/2018 Status: F Source: [facility] 9:50 PM [facility] REPOSITORY TYPE CODE TESTS RESULT OUT OF REFERENCE UNITS RANGE LAB GLUP 70-99 mg/dL High Glucose (poc 149 device) Result Comment: No BRAVE per RN: PATIENT TYPE LAB PCSTYP *POC Capillary SAMPLE TYPE Blood *POC GLUCOSE BATTERY Collected: 01/10/2018 Status: F Source: [facility] 8:39 PM [facility] REPOSITORY TYPE CODE TESTS RESULT OUT OF REFERENCE UNITS RANGE LAB GLUP 70-99 mg/dL High Glucose (poc 154 device) Result Comment: No BRAVE per RN: PATIENT TYPE LAB PCSTYP *POC Capillary SAMPLE TYPE Blood *POC GLUCOSE BATTERY Collected: 01/10/2018 Status: F Source: [facility] 4:50 PM [facility] REPOSITORY TYPE CODE TESTS RESULT OUT OF REFERENCE UNITS RANGE LAB GLUP 70-99 mg/dL High Glucose (poc 131 device) Result Comment: No BRAVE per RN: PATIENT TYPE LAB PCSTYP *POC Capillary SAMPLE TYPE Blood *POC GLUCOSE BATTERY Collected: 01/10/2018 Status: F Source: [facility] 11:31 AM [facility] REPOSITORY TYPE CODE TESTS RESULT OUT OF REFERENCE UNITS RANGE LAB GLUP 70-99 mg/dL High Glucose (poc 244 device) Result Comment: No BRAVE per RN: PATIENT TYPE LAB PCSTYP *POC Capillary SAMPLE TYPE Blood *POC GLUCOSE BATTERY Collected: 01/10/2018 Status: F Source: [facility] 7:17 AM [facility] REPOSITORY TYPE CODE TESTS RESULT OUT OF REFERENCE UNITS RANGE LAB GLUP 70-99 mg/dL High Glucose (poc 110 device) Result Comment: No BRAVE per RN: PATIENT TYPE LAB PCSTYP *POC Capillary SAMPLE TYPE Blood HEMOGRAM (CBC AND Collected: 01/10/2018 Status: F Source: [facility] PLATELET) 2:49 AM [facility] REPOSITORY TYPE CODE TESTS RESULT OUT OF REFERENCE UNITS RANGE LAB WBC 3.98-10.04 K/uL Low WBC Count 3.06 LAB RBC 3.93-5.22 M/uL Low RBC Count 2.59 LAB HGB 11.2-15.7 g/dL Low Hemoglobin 7.2 LAB HCT 34.1-44.9 % Low Hematocrit 22.5 LAB MCV 79.4-94.8 fL Mean Cell Volume 86.9 LAB MCH 25.6-32.2 pg Mean Cell Hgb 27.8 LAB MCHC 32.2-35.5 g/dL Low Mean Cell Hgb Conc 32.0 LAB RDW 11.7-14.4 % RBC High Distribution 21.2 LAB PLT 182-369 K/uL Low Platelet Count 67 LAB MPV 9.4-12.3 fL Low Mean Platelet Volume 8.8 LAB NRBC 0.0-0.2 /100 WBC NUCLEATED RBC High 0.7 Performed By: #### HEMOGC, CHM7, HFP, MGO, PTPTT #### [facility] [address] [place] [address] [place] [address] CHEM 7 Collected: 01/10/2018 Status: F Source: [facility] 2:49 AM [facility] REPOSITORY TYPE CODE TESTS RESULT OUT OF REFERENCE UNITS RANGE LAB BUN 7-22 mg/dL BUN 17 LAB NA 133-143 mmol/L Sodium 140 LAB K 3.5-5.0 mmol/L Potassium 3.8 LAB CL 98-108 mmol/L Chloride 108 LAB CO2 22-30 mmol/L Carbon Dioxide 24 LAB GLUC 70-99 mg/dL Glucose High 115 LAB CREA 0.50-1.20 mg/dL High Creatinine 1.40 LAB GAP 7-17 mmol/L Anion Gap 12 LAB BC BUN/CREA Ratio 12 LAB [facility] 278-305 mOsm/kg Osmolality 295 (Calc) LAB GFR >60 mL/min/1.73 Low sqM Est GFR,non 38 Estonian LAB GFRA >60 mL/min/1.73 Low sqM Est GFR, 46 Performed By: #### HEMOGC, CHM7, HFP, MGO, PTPTT #### [facility] [address] [place] [address] [place] [address] HEPATIC FUNCTION Collected: 01/10/2018 Status: F Source: [facility] PANEL 2:49 AM [facility] REPOSITORY TYPE CODE TESTS RESULT OUT OF REFERENCE UNITS RANGE LAB ALB 3.5-5.0 g/dL Albumin 3.6 LAB BILD <0.3 mg/dL Bilirubin High Direct 1.0 LAB BILT <1.5 mg/dL Bilirubin High Total 3.6 LAB ALP 32-126 U/L Alkaline Phosphatase 119 LAB ALT 9-48 U/L ALT 11 LAB AST 14-40 U/L AST 26 LAB TP 6.4-8.3 g/dL Total Protein 6.6 Performed By: #### HEMOGC, CHM7, HFP, MGO, PTPTT #### [facility] [address] [place] [address] [place] [address] MAGNESIUM Collected: 01/10/2018 Status: F Source: [facility] 2:49 AM [facility] REPOSITORY TYPE CODE TESTS RESULT OUT OF REFERENCE UNITS RANGE LAB MG 1.6-2.6 mg/dL Magnesium 2.0 Performed By: #### HEMOGC, CHM7, HFP, MGO, PTPTT #### [facility] [address] [place] [address] [place] [address] PT*PTT Collected: 01/10/2018 Status: F Source: [facility] 2:49 AM [facility] REPOSITORY TYPE CODE TESTS RESULT OUT OF RANGE REFERENCE UNITS LAB PT 11.9-14.2 sec High PT 17.3 LAB INR 0.9-1.1 High INR 1.4 LAB PTT 24.0-34.3 sec High PTT 36.6 Performed By: #### HEMOGC, CHM7, HFP, MGO, PTPTT #### [facility] [address] [place] [address] [address] [place] [address] VANCOMYCIN, TROUGH Collected: 01/09/2018 Status: F Source: [facility] 9:58 PM [facility] REPOSITORY TYPE CODE TESTS RESULT OUT OF REFERENCE UNITS RANGE LAB VANCTR 10.0-20.0 mcg/mL 18.8 Vancomycin, Trough Performed By: #### VANCTR #### [facility] [address] [place] [address] [facility] [address] [place], [place] [address] *POC GLUCOSE BATTERY Collected: 01/09/2018 Status: F Source: [facility] 8:42 PM [facility] REPOSITORY TYPE CODE TESTS RESULT OUT OF REFERENCE UNITS RANGE LAB GLUP 70-99 mg/dL High Glucose (poc 127 device) Result Comment: No BRAVE per RN: PATIENT TYPE LAB PCSTYP *POC Capillary SAMPLE TYPE Blood *POC GLUCOSE BATTERY Collected: 01/09/2018 Status: F Source: [facility] 4:38 PM [facility] REPOSITORY TYPE CODE TESTS RESULT OUT OF REFERENCE UNITS RANGE LAB GLUP 70-99 mg/dL High Glucose (poc 150 device) Result Comment: No BRAVE per RN: PATIENT TYPE LAB PCSTYP *POC Capillary SAMPLE TYPE Blood Observed: 01/09/2018 Status: F Source: [facility] URINE CULTURE -UHE 1:27 PM [facility] REPOSITORY SOURCE: URINE-CLEAN CATCH: RESULT: NO GROWTH REPORT STATUS: 01/10/2018 FINAL Performed By: #### UR #### [address] [address] Blood Cultures processed at: [facility] URINALYSIS Collected: 01/09/2018 Status: F Source: [facility] 1:11 PM [facility] REPOSITORY TYPE CODE TESTS RESULT OUT OF RANGE REFERENCE UNITS LAB [employer]ANT Clear Appearance Turbid Abnormal Urine LAB SPGR 1.001-1.035 Specific 1.015 [place] urine LAB UGL Negative mg/dL Glucose 100 Abnormal Urine LAB UKET Negative Ketones Trace Abnormal Urine LAB UBLD Negative Blood Urine Large Abnormal LAB UPH 5.0-7.0 pH Urine 6.5 LAB UPR Negative mg/dL Protein >=300 Abnormal Urine LAB UNTR Negative Nitrites POSITIVE Abnormal Urine LAB ULEU Negative Leukocyte Small Abnormal Esterase LAB COLR Yellow Color Red - Abnormal Result of urine dipstick analysis may be inaccurate due to color interference. Clinical correlation is recommended. LAB UURO <2.0 EU/dL High 2.0 Urobilinogen urine LAB UWBC 0-5 /HPF WBC Urine 0-5 LAB URBC 0-2 /HPF RBC Urine >20 Abnormal LAB BACT Absent Bacteria Absent LAB UCOM COMMENT None URINE LAB EPIS /HPF Squamous None Epithelial Performed By: #### URIN #### [facility] [id number] [place] [address] [place], [place] [id number] *POC GLUCOSE BATTERY Collected: 01/09/2018 Status: F Source: [facility] 11:16 AM [facility] REPOSITORY TYPE CODE TESTS RESULT OUT OF REFERENCE UNITS RANGE LAB GLUP 70-99 mg/dL High Glucose (poc 109 device) Result Comment: Notified RNread back No BRAVE per RN: PATIENT TYPE LAB PCSTYP *POC Capillary SAMPLE TYPE Blood *POC GLUCOSE BATTERY Collected: 01/09/2018 Status: F Source: [facility] 8:33 AM [facility] REPOSITORY TYPE CODE TESTS RESULT OUT OF REFERENCE UNITS RANGE LAB GLUP 70-99 mg/dL Glucose (poc 97 device) Result Comment: Notified RNread back No BRAVE per RN: PATIENT TYPE LAB PCSTYP *POC Capillary SAMPLE TYPE Blood *POC GLUCOSE BATTERY Collected: 01/09/2018 Status: F Source: [facility] 7:13 AM [facility] REPOSITORY TYPE CODE TESTS RESULT OUT OF REFERENCE UNITS RANGE LAB GLUP 70-99 mg/dL Glucose (poc 76 device) Result Comment: Notified RNread back No BRAVE per RN: PATIENT TYPE LAB PCSTYP *POC Capillary SAMPLE TYPE Blood HEMOGRAM (CBC AND Collected: 01/09/2018 Status: F Source: [facility] PLATELET) 2:21 AM [facility] REPOSITORY TYPE CODE TESTS RESULT OUT OF REFERENCE UNITS RANGE LAB WBC 3.98-10.04 K/uL Low WBC Count 3.39 LAB RBC 3.93-5.22 M/uL Low RBC Count 2.74 LAB HGB 11.2-15.7 g/dL Low Hemoglobin 7.5 LAB HCT 34.1-44.9 % Low Hematocrit 23.7 LAB MCV 79.4-94.8 fL Mean Cell Volume 86.5 LAB MCH 25.6-32.2 pg Mean Cell Hgb 27.4 LAB MCHC 32.2-35.5 g/dL Low Mean Cell Hgb Conc 31.6 LAB RDW 11.7-14.4 % RBC High Distribution 21.4 LAB PLT 182-369 K/uL Low Platelet Count 72 LAB MPV 9.4-12.3 fL Low Mean Platelet Volume 9.1 LAB NRBC 0.0-0.2 /100 WBC NUCLEATED RBC 0.0 Performed By: #### HEMOGC, CHM7, HFP, MGO, PTPTT #### [facility] [address] [place] [address] [place] [address] CHEM 7 Collected: 01/09/2018 Status: F Source: [facility] 2:21 AM [facility] REPOSITORY TYPE CODE TESTS RESULT OUT OF REFERENCE UNITS RANGE LAB BUN 7-22 mg/dL BUN 19 LAB NA 133-143 mmol/L Sodium 142 LAB K 3.5-5.0 mmol/L Potassium 3.9 LAB CL 98-108 mmol/L Chloride High 109 LAB CO2 22-30 mmol/L Carbon Dioxide 25 LAB GLUC 70-99 mg/dL Low Glucose 60 LAB CREA 0.50-1.20 mg/dL High Creatinine 1.51 LAB GAP 7-17 mmol/L Anion Gap 12 LAB BC BUN/CREA Ratio 13 LAB [facility] 278-305 mOsm/kg Osmolality 296 (Calc) LAB GFR >60 mL/min/1.73 Low sqM Est GFR,non 35 Estonian LAB GFRA >60 mL/min/1.73 Low sqM Est GFR, 42 Performed By: #### HEMOGC, CHM7, HFP, MGO, PTPTT #### [facility] [address] [place] [id number] [place] [address] [place] [address] HEPATIC FUNCTION Collected: 01/09/2018 Status: F Source: [facility] 2:21 AM [facility] REPOSITORY TYPE CODE TESTS RESULT OUT OF REFERENCE UNITS RANGE LAB ALB 3.5-5.0 g/dL Albumin 3.7 LAB BILD <0.3 mg/dL Bilirubin High Direct 1.2 LAB BILT <1.5 mg/dL Bilirubin High Total 3.9 LAB ALP 32-126 U/L Alkaline High Phosphatase 131 LAB ALT 9-48 U/L ALT 13 LAB AST 14-40 U/L AST 28 LAB TP 6.4-8.3 g/dL Total Protein 6.9 Performed By: #### HEMOGC, CHM7, HFP, MGO, PTPTT #### [facility] [address] [place] [address] [address] [place] [address] MAGNESIUM Collected: 01/09/2018 Status: F Source: [facility] 2:21 AM [facility] REPOSITORY TYPE CODE TESTS RESULT OUT OF REFERENCE UNITS RANGE LAB MG 1.6-2.6 mg/dL Magnesium 2.2 Performed By: #### HEMOGC, CHM7, HFP, MGO, PTPTT #### [facility] [address] [place] [id number] [place] [address] [place] [address] PT*PTT Collected: 01/09/2018 Status: F Source: [facility] 2:21 AM [facility] REPOSITORY TYPE CODE TESTS RESULT OUT OF RANGE REFERENCE UNITS LAB PT 11.9-14.2 sec High PT 17.0 LAB INR 0.9-1.1 High INR 1.4 LAB PTT 24.0-34.3 sec High PTT 36.4 Performed By: #### HEMOGC, CHM7, HFP, MGO, PTPTT #### [facility] [address] [place], [place] [id number] [place] [address] [address] [place] [address] *POC GLUCOSE BATTERY Collected: 01/08/2018 Status: F Source: [facility] 8:32 PM [facility] REPOSITORY TYPE CODE TESTS RESULT OUT OF REFERENCE UNITS RANGE LAB GLUP 70-99 mg/dL Glucose (poc 88 device) Result Comment: No BRAVE per RN: PATIENT TYPE LAB PCSTYP *POC Capillary SAMPLE TYPE Blood *POC GLUCOSE BATTERY Collected: 01/08/2018 Status: F Source: [facility] 4:58 PM [facility] REPOSITORY TYPE CODE TESTS RESULT OUT OF REFERENCE UNITS RANGE LAB GLUP 70-99 mg/dL High Glucose (poc 117 device) Result Comment: No BRAVE per RN: PATIENT TYPE LAB PCSTYP *POC Capillary SAMPLE TYPE Blood *POC GLUCOSE BATTERY Collected: 01/08/2018 Status: F Source: [facility] 11:23 AM [facility] REPOSITORY TYPE CODE TESTS RESULT OUT OF REFERENCE UNITS RANGE LAB GLUP 70-99 mg/dL High Glucose (poc 139 device) Result Comment: No BRAVE per RN: PATIENT TYPE LAB PCSTYP *POC Capillary SAMPLE TYPE Blood *POC GLUCOSE BATTERY Collected: 01/08/2018 Status: F Source: [facility] 7:35 AM [facility] REPOSITORY TYPE CODE TESTS RESULT OUT OF REFERENCE UNITS RANGE LAB GLUP 70-99 mg/dL Glucose (poc 78 device) Result Comment: No BRAVE per RN: PATIENT TYPE LAB PCSTYP *POC Capillary SAMPLE TYPE Blood HEMOGRAM (CBC AND Collected: 01/08/2018 Status: F Source: [facility] PLATELET) 2:51 AM [facility] REPOSITORY TYPE CODE TESTS RESULT OUT OF REFERENCE UNITS RANGE LAB WBC 3.98-10.04 K/uL Low WBC Count 3.14 LAB RBC 3.93-5.22 M/uL Low RBC Count 2.61 LAB HGB 11.2-15.7 g/dL Low Hemoglobin 7.2 LAB HCT 34.1-44.9 % Low Hematocrit 22.4 LAB MCV 79.4-94.8 fL Mean Cell Volume 85.8 LAB MCH 25.6-32.2 pg Mean Cell Hgb 27.6 LAB MCHC 32.2-35.5 g/dL Low Mean Cell Hgb Conc 32.1 LAB RDW 11.7-14.4 % RBC High Distribution 21.5 LAB PLT 182-369 K/uL Low Platelet Count 74 LAB MPV 9.4-12.3 fL Mean Platelet Volume 9.6 LAB NRBC 0.0-0.2 /100 WBC NUCLEATED RBC 0.0 Performed By: #### HEMOGC, PTPTT, CHM7, HFP, MGO #### [facility] [address] [place] [address] [place] [address] PT*PTT Collected: 01/08/2018 Status: F Source: [facility] [address] [place] [address] REPOSITORY TYPE CODE TESTS RESULT OUT OF RANGE REFERENCE UNITS LAB PT 11.9-14.2 sec High PT 17.6 LAB INR 0.9-1.1 High INR 1.5 LAB PTT 24.0-34.3 sec High PTT 38.0 Performed By: #### HEMOGC, PTPTT, CHM7, HFP, MGO #### [facility] [address] [place] [address] [address] [place] [address] CHEM 7 Collected: 01/08/2018 Status: F Source: [facility] [address] [place] [address] REPOSITORY TYPE CODE TESTS RESULT OUT OF REFERENCE UNITS RANGE LAB BUN 7-22 mg/dL BUN 20 LAB NA 133-143 mmol/L Sodium 139 LAB K 3.5-5.0 mmol/L Potassium 4.1 LAB CL 98-108 mmol/L Chloride High 110 LAB CO2 22-30 mmol/L Carbon Dioxide 22 LAB GLUC 70-99 mg/dL Glucose 92 LAB CREA 0.50-1.20 mg/dL High Creatinine 1.49 LAB GAP 7-17 mmol/L Anion Gap 11 LAB BC BUN/CREA Ratio 13 LAB [facility] 278-305 mOsm/kg Osmolality 293 (Calc) LAB GFR >60 mL/min/1.73 Low sqM Est GFR,non 35 Estonian LAB GFRA >60 mL/min/1.73 Low sqM Est GFR, 43 Performed By: #### HEMOGC, PTPTT, CHM7, HFP, MGO #### [facility] [address] [place] [address] HEPATIC FUNCTION Collected: 01/08/2018 Status: F Source: [facility] PANEL 2:51 AM [facility] REPOSITORY TYPE CODE TESTS RESULT OUT OF REFERENCE UNITS RANGE LAB ALB 3.5-5.0 g/dL Low Albumin 3.1 LAB BILD <0.3 mg/dL Bilirubin High Direct 1.1 LAB BILT <1.5 mg/dL Bilirubin High Total 3.5 LAB ALP 32-126 U/L Alkaline Phosphatase 117 LAB ALT 9-48 U/L ALT 14 LAB AST 14-40 U/L AST 29 LAB TP 6.4-8.3 g/dL Low Total Protein 6.1 Performed By: #### HEMOGC, PTPTT, CHM7, HFP, MGO #### [facility] [address] [place] [address] MAGNESIUM Collected: 01/08/2018 Status: F Source: [facility] 2:51 AM [facility] REPOSITORY TYPE CODE TESTS RESULT OUT OF REFERENCE UNITS RANGE LAB MG 1.6-2.6 mg/dL Magnesium 2.4 Performed By: #### HEMOGC, PTPTT, CHM7, HFP, MGO #### [place] [address] VANCOMYCIN, TROUGH Collected: 01/07/2018 Status: F Source: [facility] 9:55 PM [facility] REPOSITORY TYPE CODE TESTS RESULT OUT OF REFERENCE UNITS RANGE LAB VANCTR 10.0-20.0 mcg/mL 18.6 Vancomycin, Trough Performed By: #### VANCTR #### [facility] [address] [place] [address] *POC GLUCOSE BATTERY Collected: 01/07/2018 Status: F Source: [facility] 9:11 PM [facility] REPOSITORY TYPE CODE TESTS RESULT OUT OF REFERENCE UNITS RANGE LAB GLUP 70-99 mg/dL High Glucose (poc 141 device) Result Comment: No BRAVE per RN: PATIENT TYPE LAB PCSTYP *POC Capillary SAMPLE TYPE Blood *POC GLUCOSE BATTERY Collected: 01/07/2018 Status: F Source: [facility] 5:01 PM [facility] REPOSITORY TYPE CODE TESTS RESULT OUT OF REFERENCE UNITS RANGE LAB GLUP 70-99 mg/dL High Glucose (poc 105 device) Result Comment: No BRAVE per RN: PATIENT TYPE LAB PCSTYP *POC Capillary SAMPLE TYPE Blood *POC GLUCOSE BATTERY Collected: 01/07/2018 Status: F Source: [facility] 10:54 AM [facility] REPOSITORY TYPE CODE TESTS RESULT OUT OF REFERENCE UNITS RANGE LAB GLUP 70-99 mg/dL High Glucose (poc 218 device) Result Comment: No BRAVE per RN: PATIENT TYPE LAB PCSTYP *POC Capillary SAMPLE TYPE Blood *POC GLUCOSE BATTERY Collected: 01/07/2018 Status: F Source: [facility] 7:24 AM [facility] REPOSITORY TYPE CODE TESTS RESULT OUT OF REFERENCE UNITS RANGE LAB GLUP 70-99 mg/dL Glucose (poc 81 device) Result Comment: No BRAVE per RN: PATIENT TYPE LAB PCSTYP *POC Capillary SAMPLE TYPE Blood HEMOGRAM (CBC AND Collected: 01/07/2018 Status: F Source: [facility] PLATELET) 2:45 AM [facility] REPOSITORY TYPE CODE TESTS RESULT OUT OF REFERENCE UNITS RANGE LAB WBC 3.98-10.04 K/uL Low WBC Count 3.81 LAB RBC 3.93-5.22 M/uL Low RBC Count 2.74 LAB HGB 11.2-15.7 g/dL Low Hemoglobin 7.6 LAB HCT 34.1-44.9 % Low Hematocrit 23.9 LAB MCV 79.4-94.8 fL Mean Cell Volume 87.2 LAB MCH 25.6-32.2 pg Mean Cell Hgb 27.7 LAB MCHC 32.2-35.5 g/dL Low Mean Cell Hgb Conc 31.8 LAB RDW 11.7-14.4 % RBC High Distribution 21.8 LAB PLT 182-369 K/uL Low Platelet Count 72 LAB MPV 9.4-12.3 fL Low Mean Platelet Volume 9.2 LAB NRBC 0.0-0.2 /100 WBC NUCLEATED RBC 0.0 Performed By: #### HEMOGC, CHM7, HFP, MGO, PTPTT #### [facility] [address] [place] [address] [facility] [address] [place] [address] CHEM 7 Collected: 01/07/2018 Status: F Source: [facility] 2:45 AM [facility] REPOSITORY TYPE CODE TESTS RESULT OUT OF REFERENCE UNITS RANGE LAB BUN 7-22 mg/dL BUN 20 LAB NA 133-143 mmol/L Sodium 140 LAB K 3.5-5.0 mmol/L Potassium 4.5 LAB CL 98-108 mmol/L Chloride High 109 LAB CO2 22-30 mmol/L Carbon Dioxide 24 LAB GLUC 70-99 mg/dL Glucose High 116 LAB CREA 0.50-1.20 mg/dL High Creatinine 1.46 LAB GAP 7-17 mmol/L Anion Gap 12 LAB BC BUN/CREA Ratio 14 LAB [facility] 278-305 mOsm/kg Osmolality 297 (Calc) LAB GFR >60 mL/min/1.73 Low sqM Est GFR,non 36 Estonian LAB GFRA >60 mL/min/1.73 Low sqM Est GFR, 44 Performed By: #### HEMOGC, CHM7, HFP, MGO, PTPTT #### [facility] [address] [place] [address] HEPATIC FUNCTION Collected: 01/07/2018 Status: F Source: [facility] PANEL 2:45 AM [facility] REPOSITORY TYPE CODE TESTS RESULT OUT OF REFERENCE UNITS RANGE LAB ALB 3.5-5.0 g/dL Low Albumin 3.2 LAB BILD <0.3 mg/dL Bilirubin High Direct 1.2 LAB BILT <1.5 mg/dL Bilirubin High Total 3.0 LAB ALP 32-126 U/L Alkaline Phosphatase 126 LAB ALT 9-48 U/L ALT 12 LAB AST 14-40 U/L AST 29 LAB TP 6.4-8.3 g/dL Total Protein 6.4 Performed By: #### HEMOGC, CHM7, HFP, MGO, PTPTT #### [facility] [address] [address] [facility] [address] [place] [address] MAGNESIUM Collected: 01/07/2018 Status: F Source: [facility] 2:45 AM [facility] REPOSITORY TYPE CODE TESTS RESULT OUT OF REFERENCE UNITS RANGE LAB MG 1.6-2.6 mg/dL Magnesium 2.4 Performed By: #### HEMOGC, CHM7, HFP, MGO, PTPTT #### [facility] [address] [place] [address] [facility] [address] [place] [address] PT*PTT Collected: 01/07/2018 Status: F Source: [facility] 2:45 AM [facility] REPOSITORY TYPE CODE TESTS RESULT OUT OF RANGE REFERENCE UNITS LAB PT 11.9-14.2 sec High PT 17.9 LAB INR 0.9-1.1 High INR 1.5 LAB PTT 24.0-34.3 sec High PTT 38.7 Performed By: #### HEMOGC, CHM7, HFP, MGO, PTPTT #### [facility] [address] [place] [id number] [place] [address] [place] [address] *POC GLUCOSE BATTERY Collected: 01/06/2018 Status: F Source: [facility] 8:41 PM [facility] REPOSITORY TYPE CODE TESTS RESULT OUT OF REFERENCE UNITS RANGE LAB GLUP 70-99 mg/dL High Glucose (poc 149 device) Result Comment: Notified RNread back No BRAVE per RN: PATIENT TYPE LAB PCSTYP *POC Capillary SAMPLE TYPE Blood *POC GLUCOSE BATTERY Collected: 01/06/2018 Status: F Source: [facility] 11:21 AM [facility] REPOSITORY TYPE CODE TESTS RESULT OUT OF REFERENCE UNITS RANGE LAB GLUP 70-99 mg/dL High Glucose (poc 128 device) Result Comment: No BRAVE per RN: PATIENT TYPE LAB PCSTYP *POC Capillary SAMPLE TYPE Blood *POC GLUCOSE BATTERY Collected: 01/06/2018 Status: F Source: [facility] 7:39 AM [facility] REPOSITORY TYPE CODE TESTS RESULT OUT OF REFERENCE UNITS RANGE LAB GLUP 70-99 mg/dL Glucose (poc 91 device) Result Comment: No BRAVE per RN: PATIENT TYPE LAB PCSTYP *POC Capillary SAMPLE TYPE Blood HEMOGRAM (CBC AND Collected: 01/06/2018 Status: F Source: [facility] PL[facility]) 2:07 AM [facility] REPOSITORY TYPE CODE TESTS RESULT OUT OF REFERENCE UNITS RANGE LAB WBC 3.98-10.04 K/uL WBC Count 4.45 LAB RBC 3.93-5.22 M/uL Low RBC Count 2.75 LAB HGB 11.2-15.7 g/dL Low Hemoglobin 7.6 LAB HCT 34.1-44.9 % Low Hematocrit 23.7 LAB MCV 79.4-94.8 fL Mean Cell Volume 86.2 LAB MCH 25.6-32.2 pg Mean Cell Hgb 27.6 LAB MCHC 32.2-35.5 g/dL Low Mean Cell Hgb Conc 32.1 LAB RDW 11.7-14.4 % RBC High Distribution 21.6 LAB PLT 182-369 K/uL Low Platelet Count 78 LAB MPV 9.4-12.3 fL Mean Platelet Volume 9.4 LAB NRBC 0.0-0.2 /100 WBC NUCLEATED RBC High 0.7 Performed By: #### HEMOGC, CHM7, HFP, MGO, PTPTT #### [place] [address] CHEM 7 Collected: 01/06/2018 Status: F Source: [facility] 2:07 AM [facility] REPOSITORY TYPE CODE TESTS RESULT OUT OF REFERENCE UNITS RANGE LAB BUN 7-22 mg/dL BUN 20 LAB NA 133-143 mmol/L Sodium 138 LAB K 3.5-5.0 mmol/L Potassium 4.4 LAB CL 98-108 mmol/L Chloride 108 LAB CO2 22-30 mmol/L Low Carbon Dioxide 20 LAB GLUC 70-99 mg/dL Glucose High 118 LAB CREA 0.50-1.20 mg/dL High Creatinine 1.44 LAB GAP 7-17 mmol/L Anion Gap 14 LAB BC BUN/CREA Ratio 14 LAB [facility] 278-305 mOsm/kg Osmolality 294 (Calc) LAB GFR >60 mL/min/1.73 Low sqM Est GFR,non 37 [place] LAB GFRA >60 mL/min/1.73 Low sqM Est GFR, 44 Performed By: #### HEMOGC, CHM7, HFP, MGO, PTPTT #### [address] [facility] [address] [place] [id number] HEPATIC FUNCTION Collected: 01/06/2018 Status: F Source: [facility] 2:07 AM [facility] REPOSITORY TYPE CODE TESTS RESULT OUT OF REFERENCE UNITS RANGE LAB ALB 3.5-5.0 g/dL Low Albumin 3.3 LAB BILD <0.3 mg/dL Bilirubin High Direct 1.1 LAB BILT <1.5 mg/dL Bilirubin High Total 3.1 LAB ALP 32-126 U/L Alkaline High Phosphatase 143 LAB ALT 9-48 U/L ALT 12 LAB AST 14-40 U/L AST 33 LAB TP 6.4-8.3 g/dL Low Total Protein 6.3 Performed By: #### HEMOGC, CHM7, HFP, MGO, PTPTT #### [facility] [address] [place] [address] [address] [id number] MAGNESIUM Collected: 01/06/2018 Status: F Source: [facility] 2:07 AM [facility] REPOSITORY TYPE CODE TESTS RESULT OUT OF REFERENCE UNITS RANGE LAB MG 1.6-2.6 mg/dL Magnesium 2.2 Performed By: #### HEMOGC, CHM7, HFP, MGO, PTPTT #### [facility] [address] [place] [address] [place] [id number] PT*PTT Collected: 01/06/2018 Status: F Source: [facility] 2:07 AM [facility] REPOSITORY TYPE CODE TESTS RESULT OUT OF RANGE REFERENCE UNITS LAB PT 11.9-14.2 sec High PT 17.9 LAB INR 0.9-1.1 High INR 1.5 LAB PTT 24.0-34.3 sec High PTT 35.1 Performed By: #### HEMOGC, CHM7, HFP, MGO, PTPTT #### [facility] [address] [place] [address] [place] [address] *POC GLUCOSE BATTERY Collected: 01/05/2018 Status: F Source: [facility] 8:47 PM [facility] REPOSITORY TYPE CODE TESTS RESULT OUT OF REFERENCE UNITS RANGE LAB GLUP 70-99 mg/dL High Glucose (poc 184 device) Result Comment: No BRAVE per RN: PATIENT TYPE LAB PCSTYP *POC Capillary SAMPLE TYPE Blood *POC GLUCOSE BATTERY Collected: 01/05/2018 Status: F Source: [facility] 3:49 PM [facility] REPOSITORY TYPE CODE TESTS RESULT OUT OF REFERENCE UNITS RANGE LAB GLUP 70-99 mg/dL Glucose (poc 87 device) Result Comment: No BRAVE per RN: PATIENT TYPE LAB PCSTYP *POC Capillary SAMPLE TYPE Blood SURGICAL PATHOLOGY Observed: 01/05/2018 Status: F Source: [facility] 2:35 PM [facility] REPOSITORY Surgical Pathology Report Patient Name: K[facility]. Rec #: [id number] Submitting Physician: TYE CHAPA --- Clinical History --- Preop Diagnosis: Infected bite of lower leg. Osteomyelitis of ankle or foot, acute left. S81.859A L08.9 M86.172. Medical History: Splenomegaly. Peripheral neuropathy. Hypertension. Bladder mass. Obstructive sleep apnea. Bladder cancer. Diabetes mellitus, type 2. Basal cell carcinoma NOS. Hematuria. Overweight (278.02). Diabetes mellitus. Cataract. Cranial nerve palsy. Cirrhosis. Gastroesophageal reflux disease. Anemia. Renal disease. Non-alcoholic steatohepatitis. H/O screening mammography. Depression. Cardiac angina. ---Final Pathologic Diagnosis--- A. 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 - Negative for Osteomyelitis. - Negative for Metastatic Carcinoma. mg03/OHI:01/07/2018 Electronically Signed By O. Suhail Ruiz MD 01/07/2018 13:00:15 Professional Interpretation performed at location: [address] [place] [phone] ---SPECIMEN(S) RECEIVED:--- SR A: Tissue, debridement/abscess ---GROSS DESCRIPTION:--- The specimen is received in one properly labeled container with the patient's name and accession number. A. The specimen is designated left fibula and consists of a core of torrez-white bone that is 1.0 cm in length x 0.2 cm in diameter. Also received in the container is a portion of dark red blood clot that is 0.3 cm in greatest dimension. TE 1 Lab Use Only: Job ID [id number] Gross description by: Matthew Pederson Performed By: #### SURGP #### [facility] [address] [place] [address] [facility] [address] [place] [id number] *POC GLUCOSE BATTERY Collected: 01/05/2018 Status: F Source: [facility] 2:29 PM [facility] REPOSITORY TYPE CODE TESTS RESULT OUT OF REFERENCE UNITS RANGE LAB GLUP 70-99 mg/dL Glucose (poc 88 device) Result Comment: No BRAVE per RN: PATIENT TYPE LAB PCSTYP *POC Capillary SAMPLE TYPE Blood Observed: 01/05/2018 Status: F Source: [facility] AFB: TISSUE -[facility] 2:22 PM [facility] REPOSITORY SOURCE: BONE: Left Fibula COMMENT: Tiny MICROSCOPIC: No Acid Fast Bacillus Seen :Examined by Fluorochrome Stain RESULT: NO GROWTH DAY 43 OF 43 REPORT STATUS: 02/17/2018 FINAL Performed By: #### AFBT #### [address] [address] Blood Cultures processed at: [facility] BACT CULTURE/DIR Observed: Status: F Source: [place] [facility],LESION,TISSUE,DEVICE-[facility] 01/05/2018 2:22 [facility] REPOSITORY SOURCE: SURGICAL WOUND: Leg COMMENT: Small Tissue MICROSCOPIC: Neutrophils, Moderate Red Blood Cells Present Mononuclear cells present NO ORGANISMS SEEN Gram Stain read at [facility] QUANTITATION: Total Microbial Growth, Light RESULT: GERARD PARAPSILOSIS COMPLEX :Identification by MALDI-TOF mass spectrometer. ---> RVW (NOTE) Identification was performed on the MALDI-TOF mass spectrometer Biotyper. This test was developed and its performance characteristics determined by The [facility] at [facility]. It has not been cleared or approved by the FDA. The laboratory is regulated under CLIA as qualified to perform high- complexity testing. This test is used for cl inical purposes. It should not be regarded as investigational or for research REPORT STATUS: 01/08/2018 FINAL Performed By: #### #### [address] [address] Blood Cultures processed at: [facility] BACT CULTURE/DIR Observed: Status: F Source: [place] [facility],LESION,TISSUE,DEVICE-[facility] 01/05/2018 2:22 [facility] REPOSITORY SOURCE: BONE: Left Fibula COMMENT: Tiny MICROSCOPIC: Neutrophils, Light Red Blood Cells Present Mononuclear cells present NO ORGANISMS SEEN Gram Stain read at [facility] QUANTITATION: <<NOT APPLICABLE>> RESULT: NO GROWTH DAY 2 REPORT STATUS: 01/07/2018 FINAL Performed By: #### GEN #### [address] [address] Blood Cultures processed at: [facility] Observed: 01/05/2018 Status: F Source: [facility] AFB: TISSUE -E 2:22 PM [facility] REPOSITORY SOURCE: SURGICAL WOUND: Leg COMMENT: Small Tissue MICROSCOPIC: No Acid Fast Bacillus Seen :Examined by Fluorochrome Stain RESULT: NO GROWTH DAY 43 OF 43 REPORT STATUS: 02/17/2018 FINAL Performed By: #### AFBT #### [address] [address] Blood Cultures processed at: [facility] Observed: 01/05/2018 Status: F Source: [facility] FUNGUS CULTURE -E 2:22 PM [facility] REPOSITORY SOURCE: BONE: Left Fibula COMMENT: Cultures held 28 days. Tiny RESULT: NO GROWTH TO DATE REPORT STATUS: 02/02/2018 FINAL Performed By: #### FUN #### [address] [address] Blood Cultures processed at: [facility] Observed: 01/05/2018 Status: F Source: [facility] FUNGUS [facility] 2:22 PM [facility] REPOSITORY SOURCE: SURGICAL WOUND: Leg COMMENT: Cultures held 28 days. Small Tissue RESULT: GERARD PARAPSILOSIS COMPLEX :Unable to quantitate growing directly from tissue :Identification by MALDI-TOF mass spectrometer. ---> RVW (NOTE) Identification was performed on the MALDI-TOF mass spectrometer WeGushyper. This test was developed and its performance characteristics determined by The [facility] at [facility]. It has not been cleared or approved by the FDA. The laboratory is regulated under CLIA as qualified to perform high- complexity testing. This test is used for cl inical purposes. It should not be regarded as investigational or for research REPORT STATUS: 02/02/2018 FINAL Performed By: #### FUN #### [address] [address] Blood Cultures processed at: [facility] Observed: 01/05/2018 Status: F [facility] REPOSITORY SOURCE: BONE: Left Fibula COMMENT: Tiny MICROSCOPIC: See Routine Culture RESULT: NO ANAEROBIC GROWTH (NOTE) Specimen incubated up to 14 days REPORT STATUS: 01/19/2018 FINAL Performed By: #### REINALDO #### [address] [address] Blood Cultures processed at: [facility] Observed: 01/05/2018 Status: F Source: [facility] ANAEROBE CULTURE -[facility] 2:22 PM [facility] REPOSITORY SOURCE: SURGICAL WOUND: Leg COMMENT: Small Tissue MICROSCOPIC: See Routine Culture RESULT: NO ANAEROBIC GROWTH REPORT STATUS: 01/11/2018 FINAL Performed By: #### REINALDO #### [place] [address] Blood Cultures processed at: [facility] *POC GLUCOSE BATTERY Collected: 01/05/2018 Status: F Source: [facility] 12:18 PM [facility] REPOSITORY TYPE CODE TESTS RESULT OUT OF REFERENCE UNITS RANGE LAB GLUP 70-99 mg/dL High Glucose (poc 103 device) Result Comment: No BRAVE per RN: PATIENT TYPE LAB PCSTYP *POC Capillary SAMPLE TYPE Blood *POC GLUCOSE BATTERY Collected: 01/05/2018 Status: F Source: [facility] 7:46 AM [facility] REPOSITORY TYPE CODE TESTS RESULT OUT OF REFERENCE UNITS RANGE LAB GLUP 70-99 mg/dL High Glucose (poc 111 device) Result Comment: No BRAVE per RN: PATIENT TYPE LAB PCSTYP *POC Capillary SAMPLE TYPE Blood HEMOGRAM (CBC AND Collected: 01/05/2018 Status: F Source: [facility] PLATELET) 3:18 AM [facility] REPOSITORY TYPE CODE TESTS RESULT OUT OF REFERENCE UNITS RANGE LAB WBC 3.98-10.04 K/uL Low WBC Count 3.11 LAB RBC 3.93-5.22 M/uL Low RBC Count 2.64 LAB HGB 11.2-15.7 g/dL Low Hemoglobin 7.5 LAB HCT 34.1-44.9 % Low Hematocrit 22.6 LAB MCV 79.4-94.8 fL Mean Cell Volume 85.6 LAB MCH 25.6-32.2 pg Mean Cell Hgb 28.4 LAB MCHC 32.2-35.5 g/dL Mean Cell Hgb Conc 33.2 LAB RDW 11.7-14.4 % RBC High Distribution 21.7 LAB PLT 182-369 K/uL Low Platelet Count 65 LAB MPV 9.4-12.3 fL Mean Platelet Volume 9.5 LAB NRBC 0.0-0.2 /100 WBC NUCLEATED RBC High 1.0 Performed By: #### HEMANDREWC, CHM7, HFP, MGO, PTPTT #### [facility] [address] [place] [id number] [facility] [address] [place], [place] [address] CHEM 7 Collected: 01/05/2018 Status: F Source: [facility] 3:18 AM [facility] REPOSITORY TYPE CODE TESTS RESULT OUT OF REFERENCE UNITS RANGE LAB BUN 7-22 mg/dL BUN 19 LAB NA 133-143 mmol/L Sodium 137 LAB K 3.5-5.0 mmol/L Potassium 4.1 LAB CL 98-108 mmol/L Chloride High 109 LAB CO2 22-30 mmol/L Low Carbon Dioxide 21 LAB GLUC 70-99 mg/dL Glucose High 103 LAB CREA 0.50-1.20 mg/dL High Creatinine 1.29 LAB GAP 7-17 mmol/L Anion Gap 11 LAB BC BUN/CREA Ratio 15 LAB [facility] 278-305 mOsm/kg Osmolality 290 (Calc) LAB GFR >60 mL/min/1.73 Low sqM Est GFR,non 42 Estonian LAB GFRA >60 mL/min/1.73 Low sqM Est GFR, 51 Performed By: #### HEMOGC, CHM7, HFP, MGO, PTPTT #### [facility] [address] [place] [address] [facility] [address] [place], [place] [address] HEPATIC FUNCTION Collected: 01/05/2018 Status: F Source: [facility] PANEL 3:18 AM [facility] REPOSITORY TYPE CODE TESTS RESULT OUT OF REFERENCE UNITS RANGE LAB ALB 3.5-5.0 g/dL Low Albumin 3.2 LAB BILD <0.3 mg/dL Bilirubin High Direct 1.0 LAB BILT <1.5 mg/dL Bilirubin High Total 3.0 LAB ALP 32-126 U/L Alkaline High Phosphatase 127 LAB ALT 9-48 U/L ALT 11 LAB AST 14-40 U/L AST 29 LAB TP 6.4-8.3 g/dL Low Total Protein 6.3 Performed By: #### HEMOGC, CHM7, HFP, MGO, PTPTT #### [facility] [address] [place] [address] [address] [place] [address] MAGNESIUM Collected: 01/05/2018 Status: F Source: [facility] 3:18 AM [facility] REPOSITORY TYPE CODE TESTS RESULT OUT OF REFERENCE UNITS RANGE LAB MG 1.6-2.6 mg/dL Magnesium 2.3 Performed By: #### HEMOGC, CHM7, HFP, MGO, PTPTT #### [facility] [address] [place] [address] [address] [place] [address] PT*PTT Collected: 01/05/2018 Status: F Source: [facility] 3:18 AM [facility] REPOSITORY TYPE CODE TESTS RESULT OUT OF RANGE REFERENCE UNITS LAB PT 11.9-14.2 sec High PT 17.2 LAB INR 0.9-1.1 High INR 1.4 LAB PTT 24.0-34.3 sec High PTT 34.9 Performed By: #### HEMOGC, CHM7, HFP, MGO, PTPTT #### [facility] [address] [place] [address] [address] [place] [address] *POC GLUCOSE BATTERY Collected: 01/04/2018 Status: F Source: [facility] 9:41 PM [facility] REPOSITORY TYPE CODE TESTS RESULT OUT OF REFERENCE UNITS RANGE LAB GLUP 70-99 mg/dL High Glucose (poc 146 device) Result Comment: No BRAVE per RN: PATIENT TYPE LAB PCSTYP *POC Capillary SAMPLE TYPE Blood *POC GLUCOSE BATTERY Collected: 01/04/2018 Status: F Source: [facility] 4:26 PM [facility] REPOSITORY TYPE CODE TESTS RESULT OUT OF REFERENCE UNITS RANGE LAB GLUP 70-99 mg/dL High Glucose (poc 145 device) Result Comment: No BRAVE per RN: PATIENT TYPE LAB PCSTYP *POC Capillary SAMPLE TYPE Blood *POC GLUCOSE BATTERY Collected: 01/04/2018 Status: F Source: [facility] 10:44 AM [facility] REPOSITORY TYPE CODE TESTS RESULT OUT OF REFERENCE UNITS RANGE LAB GLUP 70-99 mg/dL High Glucose (poc 235 device) Result Comment: Notified RNread back No BRAVE per RN: PATIENT TYPE LAB PCSTYP *POC Capillary SAMPLE TYPE Blood *POC GLUCOSE BATTERY Collected: 01/04/2018 Status: F Source: [facility] 7:45 AM [facility] REPOSITORY TYPE CODE TESTS RESULT OUT OF REFERENCE UNITS RANGE LAB GLUP 70-99 mg/dL High Glucose (poc 102 device) Result Comment: Notified RNread back No BRAVE per RN: PATIENT TYPE LAB PCSTYP *POC Capillary SAMPLE TYPE Blood HEMOGRAM (CBC AND Collected: 01/04/2018 Status: F Source: [facility] PLATELET) 5:22 AM [facility] REPOSITORY TYPE CODE TESTS RESULT OUT OF REFERENCE UNITS RANGE LAB WBC 3.98-10.04 K/uL Low WBC Count 3.92 LAB RBC 3.93-5.22 M/uL Low RBC Count 2.78 LAB HGB 11.2-15.7 g/dL Low Hemoglobin 7.8 LAB HCT 34.1-44.9 % Low Hematocrit 24.1 LAB MCV 79.4-94.8 fL Mean Cell Volume 86.7 LAB MCH 25.6-32.2 pg Mean Cell Hgb 28.1 LAB MCHC 32.2-35.5 g/dL Mean Cell Hgb Conc 32.4 LAB RDW 11.7-14.4 % RBC High Distribution 22.0 LAB PLT 182-369 K/uL Low Platelet Count 63 LAB MPV 9.4-12.3 fL Mean Platelet Volume 10.0 LAB NRBC 0.0-0.2 /100 WBC NUCLEATED RBC High 0.8 Performed By: #### HEMOGC, PTPTT, CHM7, HFP, MGO #### [facility] [address] [place] [phone] [facility] [address] [place] [address] PT*PTT Collected: 01/04/2018 Status: F Source: [facility] 5:22 AM [facility] REPOSITORY TYPE CODE TESTS RESULT OUT OF RANGE REFERENCE UNITS LAB PT 11.9-14.2 sec High PT 16.5 LAB INR 0.9-1.1 High INR 1.4 LAB PTT 24.0-34.3 sec PTT 34.0 Performed By: #### HEMOGC, PTPTT, CHM7, HFP, MGO #### [facility] [address] [place] [id number] [place] [address] [place] [address] CHEM 7 Collected: 01/04/2018 Status: F Source: [facility] 5:22 [facility] REPOSITORY TYPE CODE TESTS RESULT OUT OF REFERENCE UNITS RANGE LAB BUN 7-22 mg/dL BUN 22 LAB NA 133-143 mmol/L Sodium 137 LAB K 3.5-5.0 mmol/L Potassium 4.3 LAB CL 98-108 mmol/L Chloride 107 LAB CO2 22-30 mmol/L Low Carbon Dioxide 21 LAB GLUC 70-99 mg/dL Glucose High 105 LAB CREA 0.50-1.20 mg/dL High Creatinine 1.45 LAB GAP 7-17 mmol/L Anion Gap 13 LAB BC BUN/CREA Ratio 15 LAB [facility] 278-305 mOsm/kg Osmolality 291 (Calc) LAB GFR >60 mL/min/1.73 Low sqM Est GFR,non 36 Estonian LAB GFRA >60 mL/min/1.73 Low sqM Est GFR, 44 Performed By: #### HEMOGC, PTPTT, CHM7, HFP, MGO #### [facility] [address] [place] [address] [facility] [address] [place] [address] HEPATIC FUNCTION Collected: 01/04/2018 Status: F Source: [facility] 5:22 AM [facility] REPOSITORY TYPE CODE TESTS RESULT OUT OF REFERENCE UNITS RANGE LAB ALB 3.5-5.0 g/dL Low Albumin 3.4 LAB BILD <0.3 mg/dL Bilirubin High Direct 1.0 LAB BILT <1.5 mg/dL Bilirubin High Total 3.0 LAB ALP 32-126 U/L Alkaline Phosphatase 115 LAB ALT 9-48 U/L ALT 13 LAB AST 14-40 U/L AST 30 LAB TP 6.4-8.3 g/dL Total Protein 6.5 Performed By: #### HEMOGC, PTPTT, CHM7, HFP, MGO #### [facility] [address] [place] [address] [address] [place] [address] MAGNESIUM Collected: 01/04/2018 Status: F Source: [facility] 5:22 AM [facility] REPOSITORY TYPE CODE TESTS RESULT OUT OF REFERENCE UNITS RANGE LAB MG 1.6-2.6 mg/dL Magnesium 2.4 Performed By: #### HEMOGC, PTPTT, CHM7, HFP, MGO #### [facility] [address] [place] [address] [address] [place] [address] *POC GLUCOSE BATTERY Collected: 01/03/2018 Status: F Source: [facility] 9:06 PM [facility] REPOSITORY TYPE CODE TESTS RESULT OUT OF REFERENCE UNITS RANGE LAB GLUP 70-99 mg/dL High Glucose (poc 198 device) Result Comment: No BRAVE per RN: PATIENT TYPE LAB PCSTYP *POC Capillary SAMPLE TYPE Blood VANCOMYCIN, TROUGH Collected: 01/03/2018 Status: F Source: [facility] 8:48 PM [facility] REPOSITORY TYPE CODE TESTS RESULT OUT OF REFERENCE UNITS RANGE LAB VANCTR 10.0-20.0 mcg/mL 13.9 Vancomycin, Trough Performed By: #### VANCTR #### [facility] [address] [place] [address] [address] [place] [address] *POC GLUCOSE BATTERY Collected: 01/03/2018 Status: F Source: [facility] 4:14 PM [facility] REPOSITORY TYPE CODE TESTS RESULT OUT OF REFERENCE UNITS RANGE LAB GLUP 70-99 mg/dL High Glucose (poc 142 device) Result Comment: No BRAVE per RN: PATIENT TYPE LAB PCSTYP *POC Capillary SAMPLE TYPE Blood *POC GLUCOSE BATTERY Collected: 01/03/2018 Status: F Source: [facility] 10:44 AM [facility] REPOSITORY TYPE CODE TESTS RESULT OUT OF REFERENCE UNITS RANGE LAB GLUP 70-99 mg/dL High Glucose (poc 239 device) Result Comment: Notified RNread back No BRAVE per RN: PATIENT TYPE LAB PCSTYP *POC Capillary SAMPLE TYPE Blood MRI ANKLE LEFT WITH Observed: 01/03/2018 Status: F Source: [place] [facility] 9:25 AM [facility] REPOSITORY EXAM: MRI ANKLE LEFT WITH AND WITHOUT CONTRAST, 01/03/2018 04:50 AM CLINICAL INDICATIONS: Cutaneous abscess, furuncle and carbuncle; concern for abscess underlying cellulitis; RELEVANT CLINICAL HISTORY: COMPARISON: No prior studies available for comparison. TECHNIQUE: MR scanning of the ankle was performed using multiple pulse sequences including proton density and fluid sensitive axial and coronal images as well as T1 weighted and inversion recovery sagittal images. Pre and post T1 fat saturation axial and postcontrast T1 fat saturation sagittal images were performed FINDINGS: Soft tissues: There is diffuse soft tissue swelling with edema and enhancement along the anterior lateral aspect of the distal calf extending inferior to the ankle joint compatible with cellulitis. There is an oval-shaped rim-enhancing fluid collection adjacent to the extensor tendons at the level of the distal tibia and fibula measuring approximately 0.6 x 2.6 cm in the AP and medial to lateral dimension and 5 cm in the craniocaudad dimension. There is enhancement in the adjacent tendons concerning for infectious tenosynovitis. No additional fluid collections. There is diffuse muscle edema and mild atrophy. There is minimal myositis within the extensor digitorum tendon compartments. Bones: There is subtle periostitis with enhancement within the distal fibula adjacent to the fluid collection best demonstrated on the axial and coronal sequences which suggests osteomyelitis. Remaining osseous structures demonstrate no altered signal or enhancement. The visualized lateral collateral, deltoid ligament complex and syndesmotic ligaments are grossly intact. There findings compatible with remote strain of the talonavicular ligament. The visualized flexor tendons are intact. There is tendinosis with a likely small tear of the peroneal brevis. Peroneal longus is intact. There is mild tenosynovitis The Achilles tendon is unremarkable. There is diffuse thickening of the plantar fascia. Osteoarthritic changes are noted at the midfoot. Bone marrow is age-appropriate. IMPRESSION: Diffuse cellulitis with minimal myositis along the anterolateral aspect of the distal calf and ankle. Oval-shaped rim-enhancing fluid collection along the lateral aspect of the ankle adjacent to the extensor tendons compatible with abscess. In addition there is likely infectious tenosynovitis of the extensor digitorum tendons. Subtle periostitis and enhancement within the distal fibula concerning for osteomyelitis. Tendinosis of the peroneal brevis with a likely partial tear. In addition there is mild tenosynovitis. Chronic plantar fasciitis Diffuse muscle edema *POC GLUCOSE BATTERY Collected: 01/03/2018 Status: F Source: [facility] 7:17 AM [facility] REPOSITORY TYPE CODE TESTS RESULT OUT OF REFERENCE UNITS RANGE LAB GLUP 70-99 mg/dL Glucose (poc 89 device) Result Comment: Notified RNread back No BRAVE per RN: PATIENT TYPE LAB PCSTYP *POC Capillary SAMPLE TYPE Blood HEMOGRAM (CBC AND Collected: 01/03/2018 Status: F Source: [facility] PLATELET) 2:37 AM [facility] REPOSITORY TYPE CODE TESTS RESULT OUT OF REFERENCE UNITS RANGE LAB WBC 3.98-10.04 K/uL Low WBC Count 3.37 LAB RBC 3.93-5.22 M/uL Low RBC Count 2.63 LAB HGB 11.2-15.7 g/dL Low Hemoglobin 7.4 LAB HCT 34.1-44.9 % Low Hematocrit 22.9 LAB MCV 79.4-94.8 fL Mean Cell Volume 87.1 LAB MCH 25.6-32.2 pg Mean Cell Hgb 28.1 LAB MCHC 32.2-35.5 g/dL Mean Cell Hgb Conc 32.3 LAB RDW 11.7-14.4 % RBC High Distribution 21.9 LAB PLT 182-369 K/uL Low Platelet Count 49 LAB MPV 9.4-12.3 fL Mean Platelet Volume 9.6 LAB NRBC 0.0-0.2 /100 WBC NUCLEATED RBC 0.0 Performed By: #### HEMOGC, PTPTT, CHM7, HFP, MGO #### [facility] [address] [place] [address] [address] [place] [address] PT*PTT Collected: 01/03/2018 Status: F Source: [facility] 2:37 AM [facility] REPOSITORY TYPE CODE TESTS RESULT OUT OF RANGE REFERENCE UNITS LAB PT 11.9-14.2 sec High PT 16.7 LAB INR 0.9-1.1 High INR 1.4 LAB PTT 24.0-34.3 sec High PTT 34.6 Performed By: #### HEMOGC, PTPTT, CHM7, HFP, MGO #### [facility] [address] [place] [id number] [facility] [address] [place] [address] CHEM 7 Collected: 01/03/2018 Status: F Source: [facility] 2:37 AM [facility] REPOSITORY TYPE CODE TESTS RESULT OUT OF REFERENCE UNITS RANGE LAB BUN 7-22 mg/dL BUN 22 LAB NA 133-143 mmol/L Sodium 138 LAB K 3.5-5.0 mmol/L Potassium 4.2 LAB CL 98-108 mmol/L Chloride High 110 LAB CO2 22-30 mmol/L Low Carbon Dioxide 21 LAB GLUC 70-99 mg/dL Glucose High 144 LAB CREA 0.50-1.20 mg/dL High Creatinine 1.58 LAB GAP 7-17 mmol/L Anion Gap 11 LAB BC BUN/CREA Ratio 14 LAB [facility] 278-305 mOsm/kg Osmolality 296 (Calc) LAB GFR >60 mL/min/1.73 Low sqM Est GFR,non 33 [place]ian LAB GFRA >60 mL/min/1.73 Low sqM Est GFR, 40 Performed By: #### HEMOGC, PTPTT, CHM7, HFP, MGO #### [facility] [address] [place] [id number] [facility] [address] [place] [address] HEPATIC FUNCTION Collected: 01/03/2018 Status: F Source: [facility] 2:37 [facility] REPOSITORY TYPE CODE TESTS RESULT OUT OF REFERENCE UNITS RANGE LAB ALB 3.5-5.0 g/dL Low Albumin 3.4 LAB BILD <0.3 mg/dL Bilirubin High Direct 1.0 LAB BILT <1.5 mg/dL Bilirubin High Total 3.0 LAB ALP 32-126 U/L Alkaline Phosphatase 113 LAB ALT 9-48 U/L ALT 11 LAB AST 14-40 U/L AST 26 LAB TP 6.4-8.3 g/dL Low Total Protein 6.3 Performed By: #### HEMOGC, PTPTT, CHM7, HFP, MGO #### [facility] [address] [place] [id number] [facility] [address] [place] [address] MAGNESIUM Collected: 01/03/2018 Status: F Source: [facility] 2:37 AM [facility] REPOSITORY TYPE CODE TESTS RESULT OUT OF REFERENCE UNITS RANGE LAB MG 1.6-2.6 mg/dL Magnesium 2.5 Performed By: #### HEMOGC, PTPTT, CHM7, HFP, MGO #### [facility] [address] [place] [id number] [facility] [address] [place] [id number] *POC GLUCOSE BATTERY Collected: 01/02/2018 Status: F Source: [facility] 9:08 PM [facility] REPOSITORY TYPE CODE TESTS RESULT OUT OF REFERENCE UNITS RANGE LAB GLUP 70-99 mg/dL High Glucose (poc 152 device) Result Comment: No BRAVE per RN: PATIENT TYPE LAB PCSTYP *POC Capillary SAMPLE TYPE Blood *POC GLUCOSE BATTERY Collected: 01/02/2018 Status: F Source: [facility] 4:26 PM [facility] REPOSITORY TYPE CODE TESTS RESULT OUT OF REFERENCE UNITS RANGE LAB GLUP 70-99 mg/dL High Glucose (poc 150 device) Result Comment: No BRAVE per RN: PATIENT TYPE LAB PCSTYP *POC Capillary SAMPLE TYPE Blood *POC GLUCOSE BATTERY Collected: 01/02/2018 Status: F Source: [facility] 11:05 AM [facility] REPOSITORY TYPE CODE TESTS RESULT OUT OF REFERENCE UNITS RANGE LAB GLUP 70-99 mg/dL High Glucose (poc 231 device) Result Comment: No BRAVE per RN: PATIENT TYPE LAB PCSTYP *POC Capillary SAMPLE TYPE Blood *POC GLUCOSE BATTERY Collected: 01/02/2018 Status: F Source: [facility] 9:07 AM [facility] REPOSITORY TYPE CODE TESTS RESULT OUT OF REFERENCE UNITS RANGE LAB GLUP 70-99 mg/dL High Glucose (poc 200 device) Result Comment: No BRAVE per RN: PATIENT TYPE LAB PCSTYP *POC Capillary SAMPLE TYPE Blood *POC GLUCOSE BATTERY Collected: 01/02/2018 Status: F Source: [facility] 7:40 AM [facility] REPOSITORY TYPE CODE TESTS RESULT OUT OF REFERENCE UNITS RANGE LAB GLUP 70-99 mg/dL High Glucose (poc 110 device) Result Comment: No BRAVE per RN: PATIENT TYPE LAB PCSTYP *POC Capillary SAMPLE TYPE Blood HEMOGRAM (CBC AND Collected: 01/02/2018 Status: F Source: [facility] PLATELET) 2:04 AM [facility] REPOSITORY TYPE CODE TESTS RESULT OUT OF REFERENCE UNITS RANGE LAB WBC 3.98-10.04 K/uL Low WBC Count 3.38 LAB RBC 3.93-5.22 M/uL Low RBC Count 2.69 LAB HGB 11.2-15.7 g/dL Low Hemoglobin 7.4 LAB HCT 34.1-44.9 % Low Hematocrit 23.0 LAB MCV 79.4-94.8 fL Mean Cell Volume 85.5 LAB MCH 25.6-32.2 pg Mean Cell Hgb 27.5 LAB MCHC 32.2-35.5 g/dL Mean Cell Hgb Conc 32.2 LAB RDW 11.7-14.4 % RBC High Distribution 21.6 LAB PLT 182-369 K/uL Low Platelet Count 46 LAB MPV 9.4-12.3 fL Mean Platelet Volume 9.8 LAB NRBC 0.0-0.2 /100 WBC NUCLEATED RBC High 0.6 Performed By: #### HEMOGC, CHM7, HFP, MGO, PTPTT #### [facility] [address] [place] [address] [place] [address] CHEM 7 Collected: 01/02/2018 Status: F Source: [facility] 2:04 AM [facility] REPOSITORY TYPE CODE TESTS RESULT OUT OF REFERENCE UNITS RANGE LAB BUN 7-22 mg/dL BUN 21 LAB NA 133-143 mmol/L Sodium 137 LAB K 3.5-5.0 mmol/L Potassium 4.2 LAB CL 98-108 mmol/L Chloride 107 LAB CO2 22-30 mmol/L Low Carbon Dioxide 20 LAB GLUC 70-99 mg/dL Glucose 98 LAB CREA 0.50-1.20 mg/dL High Creatinine 1.59 LAB GAP 7-17 mmol/L Anion Gap 14 LAB BC BUN/CREA Ratio 13 LAB [facility] 278-305 mOsm/kg Osmolality 290 (Calc) LAB GFR >60 mL/min/1.73 Low sqM Est GFR,non 33 Estonian LAB GFRA >60 mL/min/1.73 Low sqM Est GFR, 40 Performed By: #### HEMOGC, CHM7, HFP, MGO, PTPTT #### [facility] [address] [place] [id number] [place] [address] [place] [id number] HEPATIC FUNCTION Collected: 01/02/2018 Status: F Source: [facility] 2:04 [facility] REPOSITORY TYPE CODE TESTS RESULT OUT OF REFERENCE UNITS RANGE LAB ALB 3.5-5.0 g/dL Low Albumin 3.2 LAB BILD <0.3 mg/dL Bilirubin High Direct 1.2 LAB BILT <1.5 mg/dL Bilirubin High Total 3.3 LAB ALP 32-126 U/L Alkaline High Phosphatase 138 LAB ALT 9-48 U/L ALT 11 LAB AST 14-40 U/L AST 31 LAB TP 6.4-8.3 g/dL Total Protein 6.5 Performed By: #### HEMOGC, CHM7, HFP, MGO, PTPTT #### [facility] [address] [place] [address] [place] [address] MAGNESIUM Collected: 01/02/2018 Status: F Source: [facility] 2:04 AM [facility] REPOSITORY TYPE CODE TESTS RESULT OUT OF REFERENCE UNITS RANGE LAB MG 1.6-2.6 mg/dL Magnesium 2.4 Performed By: #### HEMOGC, CHM7, HFP, MGO, PTPTT #### [facility] [address] [place] [id number] [place] [address] [place] [address] PT*PTT Collected: 01/02/2018 Status: F Source: [facility] 2:04 AM [facility] REPOSITORY TYPE CODE TESTS RESULT OUT OF RANGE REFERENCE UNITS LAB PT 11.9-14.2 sec High PT 16.1 LAB INR 0.9-1.1 High INR 1.3 LAB PTT 24.0-34.3 sec High PTT 35.8 Performed By: #### HEMOGC, CHM7, HFP, MGO, PTPTT #### [facility] [address] [place], [place] [id number] [place] [address] [address] [place] [address] *POC GLUCOSE BATTERY Collected: 01/01/2018 Status: F Source: [facility] 9:23 PM [facility] REPOSITORY TYPE CODE TESTS RESULT OUT OF REFERENCE UNITS RANGE LAB GLUP 70-99 mg/dL High Glucose (poc 171 device) Result Comment: Notified RNread back No BRAVE per RN: PATIENT TYPE LAB PCSTYP *POC Capillary SAMPLE TYPE Blood *POC GLUCOSE BATTERY Collected: 01/01/2018 Status: F Source: [facility] 4:51 PM [facility] REPOSITORY TYPE CODE TESTS RESULT OUT OF REFERENCE UNITS RANGE LAB GLUP 70-99 mg/dL High Glucose (poc 153 device) Result Comment: No BRAVE per RN: PATIENT TYPE LAB PCSTYP *POC Capillary SAMPLE TYPE Blood *POC GLUCOSE BATTERY Collected: 01/01/2018 Status: F Source: [facility] 11:44 AM [facility] REPOSITORY TYPE CODE TESTS RESULT OUT OF REFERENCE UNITS RANGE LAB GLUP 70-99 mg/dL High Glucose (poc 216 device) Result Comment: No BRAVE per RN: PATIENT TYPE LAB PCSTYP *POC Capillary SAMPLE TYPE Blood *POC GLUCOSE BATTERY Collected: 01/01/2018 Status: F Source: [facility] 10:08 AM [facility] REPOSITORY TYPE CODE TESTS RESULT OUT OF REFERENCE UNITS RANGE LAB GLUP 70-99 mg/dL High Glucose (poc 235 device) Result Comment: No BRAVE per RN: PATIENT TYPE LAB PCSTYP *POC Capillary SAMPLE TYPE Blood HEMOGRAM (CBC AND Collected: 01/01/2018 Status: F Source: [facility] PLATELET) 7:26 AM [facility] REPOSITORY TYPE CODE TESTS RESULT OUT OF REFERENCE UNITS RANGE LAB WBC 3.98-10.04 K/uL WBC Count 4.78 LAB RBC 3.93-5.22 M/uL Low RBC Count 3.19 LAB HGB 11.2-15.7 g/dL Low Hemoglobin 9.0 LAB HCT 34.1-44.9 % Low Hematocrit 26.9 LAB MCV 79.4-94.8 fL Mean Cell Volume 84.3 LAB MCH 25.6-32.2 pg Mean Cell Hgb 28.2 LAB MCHC 32.2-35.5 g/dL Mean Cell Hgb Conc 33.5 LAB RDW 11.7-14.4 % RBC High Distribution 21.8 LAB PLT 182-369 K/uL Low Platelet Count 67 LAB MPV 9.4-12.3 fL Mean Platelet Volume 9.6 LAB NRBC 0.0-0.2 /100 WBC NUCLEATED RBC High 0.4 Performed By: #### HEMOGC #### [facility] [address] [place] [address] [place] [address] *POC GLUCOSE BATTERY Collected: 01/01/2018 Status: F Source: [facility] 7:15 AM [facility] REPOSITORY TYPE CODE TESTS RESULT OUT OF REFERENCE UNITS RANGE LAB GLUP 70-99 mg/dL Glucose (poc 99 device) Result Comment: No BRAVE per RN: PATIENT TYPE LAB PCSTYP *POC Capillary SAMPLE TYPE Blood CHEM 7 Collected: 01/01/2018 Status: F Source: [facility] 2:05 AM [facility] REPOSITORY TYPE CODE TESTS RESULT OUT OF REFERENCE UNITS RANGE LAB BUN 7-22 mg/dL BUN 20 LAB NA 133-143 mmol/L Sodium 136 LAB K 3.5-5.0 mmol/L Potassium 4.2 LAB CL 98-108 mmol/L Chloride 107 LAB CO2 22-30 mmol/L Carbon Dioxide 22 LAB GLUC 70-99 mg/dL Glucose 89 LAB CREA 0.50-1.20 mg/dL High Creatinine 1.54 LAB GAP 7-17 mmol/L Anion Gap 11 LAB BC BUN/CREA Ratio 13 LAB [facility] 278-305 mOsm/kg Osmolality 288 (Calc) LAB GFR >60 mL/min/1.73 Low sqM Est GFR,non 34 Estonian LAB GFRA >60 mL/min/1.73 Low sqM Est GFR, 41 Performed By: #### CHM7, HFP, MGO, PTPTT #### [facility] [address] [place] [address] HEPATIC FUNCTION Collected: 01/01/2018 Status: F Source: [facility] PANEL 2:05 AM [facility] REPOSITORY TYPE CODE TESTS RESULT OUT OF REFERENCE UNITS RANGE LAB ALB 3.5-5.0 g/dL Low Albumin 2.9 LAB BILD <0.3 mg/dL Bilirubin High Direct 1.1 LAB BILT <1.5 mg/dL Bilirubin High Total 3.0 LAB ALP 32-126 U/L Alkaline High Phosphatase 145 LAB ALT 9-48 U/L ALT 14 LAB AST 14-40 U/L AST 31 LAB TP 6.4-8.3 g/dL Total Protein 6.5 Performed By: #### CHM7, HFP, MGO, PTPTT #### [facility] [address] [place] [address] [address] [place] [address] MAGNESIUM Collected: 01/01/2018 Status: F Source: [facility] 2:05 AM [facility] REPOSITORY TYPE CODE TESTS RESULT OUT OF REFERENCE UNITS RANGE LAB MG 1.6-2.6 mg/dL Magnesium 2.3 Performed By: #### DERRELLM7, HFP, MGO, PTPTT #### [facility] [address] [place] [address] PT*PTT Collected: 01/01/2018 Status: F Source: [facility] 2:05 AM [facility] REPOSITORY TYPE CODE TESTS RESULT OUT OF RANGE REFERENCE UNITS LAB PT 11.9-14.2 sec High PT 15.4 LAB INR 0.9-1.1 High INR 1.2 LAB PTT 24.0-34.3 sec High PTT 36.1 Performed By: #### CHM7, HFP, MGO, PTPTT #### [facility] [address] [place] [address] *POC GLUCOSE BATTERY Collected: 12/31/2017 Status: F Source: [facility] 9:04 PM [facility] REPOSITORY TYPE CODE TESTS RESULT OUT OF REFERENCE UNITS RANGE LAB GLUP 70-99 mg/dL High Glucose (poc 169 device) Result Comment: No BRAVE per RN: PATIENT TYPE LAB PCSTYP *POC Capillary SAMPLE TYPE Blood *POC GLUCOSE BATTERY Collected: 12/31/2017 Status: F Source: [facility] 7:14 PM [facility] REPOSITORY TYPE CODE TESTS RESULT OUT OF REFERENCE UNITS RANGE LAB GLUP 70-99 mg/dL High Glucose (poc 177 device) Result Comment: No BRAVE per RN: PATIENT TYPE LAB PCSTYP *POC Capillary SAMPLE TYPE Blood *POC GLUCOSE BATTERY Collected: 12/31/2017 Status: F Source: [facility] 4:48 PM [facility] REPOSITORY TYPE CODE TESTS RESULT OUT OF REFERENCE UNITS RANGE LAB GLUP 70-99 mg/dL High Glucose (poc 122 device) Result Comment: No BRAVE per RN: PATIENT TYPE LAB PCSTYP *POC Capillary SAMPLE TYPE Blood VANCOMYCIN, TROUGH Collected: 12/31/2017 Status: F Source: [facility] 4:24 PM [facility] REPOSITORY TYPE CODE TESTS RESULT OUT OF REFERENCE UNITS RANGE LAB VANCTR 10.0-20.0 mcg/mL 14.3 Vancomycin, Trough Performed By: #### VANCTR #### [facility] [address] [place] [address] [address] [place] [address] *POC GLUCOSE BATTERY Collected: 12/31/2017 Status: F Source: [facility] 11:47 AM [facility] REPOSITORY TYPE CODE TESTS RESULT OUT OF REFERENCE UNITS RANGE LAB GLUP 70-99 mg/dL High Glucose (poc 172 device) Result Comment: No BRAVE per RN: PATIENT TYPE LAB PCSTYP *POC Capillary SAMPLE TYPE Blood BACT CULTURE/DIR Observed: Status: F Source: [place] SMEAR,LESION,TISSUE,DEVICE-UHE 12/31/2017 10:42 [facility] REPOSITORY SOURCE: SURGICAL WOUND: Left Lower Leg Tissue COMMENT: Tiny Tissue MICROSCOPIC: Neutrophils, None Red Blood Cells Present NO ORGANISMS SEEN Gram Stain read at [facility] QUANTITATION: <<NOT APPLICABLE>> RESULT: NO GROWTH DAY 2 REPORT STATUS: 01/02/2018 FINAL Performed By: #### GEN #### [address] [address] Blood Cultures processed at: [facility] Observed: 12/31/2017 Status: F Source: [facility] AFB: TISSUE -UHE 10:42 [facility] REPOSITORY SOURCE: SURGICAL WOUND: Left Lower Tissue COMMENT: Tiny Tissue MICROSCOPIC: No Acid Fast Bacillus Seen :Examined by Fluorochrome Stain RESULT: NO GROWTH DAY 42 42 REPORT STATUS: 02/11/2018 FINAL Performed By: #### AFBT #### [address] [address] Blood Cultures processed at: [facility] Observed: 12/31/2017 Status: F Source: [facility] FUNGUS CULTURE -UHE 10:42 [facility] REPOSITORY SOURCE: SURGICAL WOUND: Left Lower Leg Tissue COMMENT: Cultures held 28 days. Tiny Tissue RESULT: GERARD PARAPSILOSIS COMPLEX : 1 COLONY :Identification by MALDI-TOF mass spectrometer. ---> FARIDA (NOTE) Identification was performed on the MALDI-TOF mass spectrometer Biotyper. This test was developed and its performance characteristics determined by [facility]. It has not been cleared or approved by the FDA. The laboratory is regulated under CLIA as qualified to perform high- complexity testing. This test is used for cl inical purposes. It should not be regarded as investigational or for research REPORT STATUS: 01/28/2018 FINAL Performed By: #### FUN #### [address] [address] Blood Cultures processed at: [facility] Observed: 12/31/2017 Status: F Source: [facility] ANAEROBE CULTURE -UHE 10:42 AM [facility] REPOSITORY SOURCE: SURGICAL WOUND: Left Lower Leg Tissue COMMENT: Tiny Tissue MICROSCOPIC: See Routine Culture RESULT: NO ANAEROBIC GROWTH REPORT STATUS: 01/06/2018 FINAL Performed By: #### REINALDO #### [address] [address] Blood Cultures processed at: [facility] *POC GLUCOSE BATTERY Collected: 12/31/2017 Status: F Source: [facility] 7:14 AM [facility] REPOSITORY TYPE CODE TESTS RESULT OUT OF REFERENCE UNITS RANGE LAB GLUP 70-99 mg/dL Glucose (poc 83 device) Result Comment: Notified RNread back No BRAVE per RN: PATIENT TYPE LAB PCSTYP *POC Capillary SAMPLE TYPE Blood HEMOGRAM (CBC AND Collected: 12/31/2017 Status: F Source: [facility] PLATELET) 2:40 AM [facility] REPOSITORY TYPE CODE TESTS RESULT OUT OF REFERENCE UNITS RANGE LAB WBC 3.98-10.04 K/uL Low WBC Count 3.43 LAB RBC 3.93-5.22 M/uL Low RBC Count 2.79 LAB HGB 11.2-15.7 g/dL Low Hemoglobin 7.8 LAB HCT 34.1-44.9 % Low Hematocrit 23.7 LAB MCV 79.4-94.8 fL Mean Cell Volume 84.9 LAB MCH 25.6-32.2 pg Mean Cell Hgb 28.0 LAB MCHC 32.2-35.5 g/dL Mean Cell Hgb Conc 32.9 LAB RDW 11.7-14.4 % RBC High Distribution 21.6 LAB PLT 182-369 K/uL Low Platelet Count 52 LAB MPV 9.4-12.3 fL Mean Platelet Volume 9.6 LAB NRBC 0.0-0.2 /100 WBC NUCLEATED RBC High 0.6 Performed By: #### HEMOGC, PTPTT, CHM7, HFP, MGO #### [facility] [address] [place] [address] [address] [place] [address] PT*PTT Collected: 12/31/2017 Status: F Source: [facility] 2:40 AM [facility] REPOSITORY TYPE CODE TESTS RESULT OUT OF RANGE REFERENCE UNITS LAB PT 11.9-14.2 sec High PT 15.4 LAB INR 0.9-1.1 High INR 1.2 LAB PTT 24.0-34.3 sec High PTT 38.4 Performed By: #### HEMOGC, PTPTT, CHM7, HFP, MGO #### [facility] [address] [place] [address] [place] [address] CHEM 7 Collected: 12/31/2017 Status: F Source: [facility] 2:40 AM [facility] REPOSITORY TYPE CODE TESTS RESULT OUT OF REFERENCE UNITS RANGE LAB BUN 7-22 mg/dL BUN 19 LAB NA 133-143 mmol/L Sodium 138 LAB K 3.5-5.0 mmol/L Potassium 4.1 LAB CL 98-108 mmol/L Chloride High 109 LAB CO2 22-30 mmol/L Low Carbon Dioxide 21 LAB GLUC 70-99 mg/dL Glucose 80 LAB CREA 0.50-1.20 mg/dL High Creatinine 1.37 LAB GAP 7-17 mmol/L Anion Gap 12 LAB BC BUN/CREA Ratio 14 LAB [facility] 278-305 mOsm/kg Osmolality 290 (Calc) LAB GFR >60 mL/min/1.73 Low sqM Est GFR,non 39 Estonian LAB GFRA >60 mL/min/1.73 Low sqM Est GFR, 47 Performed By: #### HEMOGC, PTPTT, CHM7, HFP, MGO #### [facility] [address] [place] [address] [address] [place] [address] HEPATIC FUNCTION Collected: 12/31/2017 Status: F Source: [facility] PANEL 2:40 AM [facility] REPOSITORY TYPE CODE TESTS RESULT OUT OF REFERENCE UNITS RANGE LAB ALB 3.5-5.0 g/dL Low Albumin 2.8 LAB BILD <0.3 mg/dL Bilirubin High Direct 1.0 LAB BILT <1.5 mg/dL Bilirubin High Total 3.0 LAB ALP 32-126 U/L Alkaline High Phosphatase 133 LAB ALT 9-48 U/L ALT 13 LAB AST 14-40 U/L AST 32 LAB TP 6.4-8.3 g/dL Low Total Protein 6.2 Performed By: #### HEMOGC, PTPTT, CHM7, HFP, MGO #### [facility] [address] [place] [address] [address] [place] [address] MAGNESIUM Collected: 12/31/2017 Status: F Source: [facility] 2:40 AM [facility] REPOSITORY TYPE CODE TESTS RESULT OUT OF REFERENCE UNITS RANGE LAB MG 1.6-2.6 mg/dL Magnesium 2.2 Performed By: #### HEMOGC, PTPTT, CHM7, HFP, MGO #### [facility] [address] [place] [address] [address] [place] [address] *POC GLUCOSE BATTERY Collected: 12/30/2017 Status: F Source: [facility] 8:51 PM [facility] REPOSITORY TYPE CODE TESTS RESULT OUT OF REFERENCE UNITS RANGE LAB GLUP 70-99 mg/dL High Glucose (poc 165 device) Result Comment: Notified RNread back No BRAVE per RN: PATIENT TYPE LAB PCSTYP *POC Capillary SAMPLE TYPE Blood *POC GLUCOSE BATTERY Collected: 12/30/2017 Status: F Source: [facility] 4:30 PM [facility] REPOSITORY TYPE CODE TESTS RESULT OUT OF REFERENCE UNITS RANGE LAB GLUP 70-99 mg/dL High Glucose (poc 179 device) Result Comment: No BRAVE per RN: PATIENT TYPE LAB PCSTYP *POC Capillary SAMPLE TYPE Blood *POC GLUCOSE BATTERY Collected: 12/30/2017 Status: F Source: [facility] 11:15 AM [facility] REPOSITORY TYPE CODE TESTS RESULT OUT OF REFERENCE UNITS RANGE LAB GLUP 70-99 mg/dL High Glucose (poc 232 device) Result Comment: No BRAVE per RN: PATIENT TYPE LAB PCSTYP *POC Capillary SAMPLE TYPE Blood *POC GLUCOSE BATTERY Collected: 12/30/2017 Status: F Source: [facility] 7:28 AM [facility] REPOSITORY TYPE CODE TESTS RESULT OUT OF REFERENCE UNITS RANGE LAB GLUP 70-99 mg/dL High Glucose (poc 106 device) Result Comment: No BRAVE per RN: PATIENT TYPE LAB PCSTYP *POC Capillary SAMPLE TYPE Blood HEMOGRAM (CBC AND Collected: 12/30/2017 Status: F Source: [facility] PLATELET) 2:32 AM [facility] REPOSITORY TYPE CODE TESTS RESULT OUT OF REFERENCE UNITS RANGE LAB WBC 3.98-10.04 K/uL Low WBC Count 3.63 LAB RBC 3.93-5.22 M/uL Low RBC Count 2.87 LAB HGB 11.2-15.7 g/dL Low Hemoglobin 8.0 LAB HCT 34.1-44.9 % Low Hematocrit 24.3 LAB MCV 79.4-94.8 fL Mean Cell Volume 84.7 LAB MCH 25.6-32.2 pg Mean Cell Hgb 27.9 LAB MCHC 32.2-35.5 g/dL Mean Cell Hgb Conc 32.9 LAB RDW 11.7-14.4 % RBC High Distribution 21.2 LAB PLT 182-369 K/uL Low Platelet Count 58 LAB MPV 9.4-12.3 fL Low Mean Platelet Volume 9.2 LAB NRBC 0.0-0.2 /100 WBC NUCLEATED RBC 0.0 Performed By: #### HEMOGC, CHM7, HFP, MGO, PTPTT #### [facility] [address] [place] [address] [facility] [address] [place] [address] CHEM 7 Collected: 12/30/2017 Status: F Source: [facility] 2:32 [facility] REPOSITORY TYPE CODE TESTS RESULT OUT OF REFERENCE UNITS RANGE LAB BUN 7-22 mg/dL BUN 20 LAB NA 133-143 mmol/L Sodium 137 LAB K 3.5-5.0 mmol/L Potassium 4.4 LAB CL 98-108 mmol/L Chloride 107 LAB CO2 22-30 mmol/L Carbon Dioxide 22 LAB GLUC 70-99 mg/dL Glucose High 104 LAB CREA 0.50-1.20 mg/dL High Creatinine 1.48 LAB GAP 7-17 mmol/L Anion Gap 12 LAB BC BUN/CREA Ratio 14 LAB [facility] 278-305 mOsm/kg Osmolality 291 (Calc) LAB GFR >60 mL/min/1.73 Low sqM Est GFR,non 36 Estonian LAB GFRA >60 mL/min/1.73 Low sqM Est GFR, 43 Performed By: #### HEMOGC, CHM7, HFP, MGO, PTPTT #### [facility] [address] [place] [id number] [place] [address] [place] [address] HEPATIC FUNCTION Collected: 12/30/2017 Status: F Source: [facility] PANEL 2:32 [facility] REPOSITORY TYPE CODE TESTS RESULT OUT OF REFERENCE UNITS RANGE LAB ALB 3.5-5.0 g/dL Low Albumin 3.0 LAB BILD <0.3 mg/dL Bilirubin High Direct 1.2 LAB BILT <1.5 mg/dL Bilirubin High Total 3.2 LAB ALP 32-126 U/L Alkaline High Phosphatase 151 LAB ALT 9-48 U/L ALT 13 LAB AST 14-40 U/L AST 30 LAB TP 6.4-8.3 g/dL Total Protein 6.5 Performed By: #### HEMOGC, CHM7, HFP, MGO, PTPTT #### [facility] [address] [place] [address] [facility] [address] [place] [address] MAGNESIUM Collected: 12/30/2017 Status: F Source: [facility] 2:32 AM [facility] REPOSITORY TYPE CODE TESTS RESULT OUT OF REFERENCE UNITS RANGE LAB MG 1.6-2.6 mg/dL Magnesium 2.3 Performed By: #### HEMOGC, CHM7, HFP, MGO, PTPTT #### [facility] [address] [place] [address] [facility] [address] [place] [address] PT*PTT Collected: 12/30/2017 Status: F Source: [facility] 2:32 AM [facility] REPOSITORY TYPE CODE TESTS RESULT OUT OF RANGE REFERENCE UNITS LAB PT 11.9-14.2 sec High PT 15.6 LAB INR 0.9-1.1 High INR 1.3 LAB PTT 24.0-34.3 sec High PTT 36.8 Performed By: #### HEMOGC, CHM7, HFP, MGO, PTPTT #### [facility] [address] [place] [id number] [place] [address] [place] [address] *POC GLUCOSE BATTERY Collected: 12/29/2017 Status: F Source: [facility] 8:45 PM [facility] REPOSITORY TYPE CODE TESTS RESULT OUT OF REFERENCE UNITS RANGE LAB GLUP 70-99 mg/dL High Glucose (poc 199 device) Result Comment: Notified RNread back No BRAVE per RN: PATIENT TYPE LAB PCSTYP *POC Capillary SAMPLE TYPE Blood *POC GLUCOSE BATTERY Collected: 12/29/2017 Status: F Source: [facility] 4:23 PM [facility] REPOSITORY TYPE CODE TESTS RESULT OUT OF REFERENCE UNITS RANGE LAB GLUP 70-99 mg/dL High Glucose (poc 225 device) Result Comment: No BRAVE per RN: PATIENT TYPE LAB PCSTYP *POC Capillary SAMPLE TYPE Blood *POC GLUCOSE BATTERY Collected: 12/29/2017 Status: F Source: [facility] 12:55 PM [facility] REPOSITORY TYPE CODE TESTS RESULT OUT OF REFERENCE UNITS RANGE LAB GLUP 70-99 mg/dL High Glucose (poc 213 device) Result Comment: No BRAVE per RN: PATIENT TYPE LAB PCSTYP *POC Capillary SAMPLE TYPE Blood US RENAL Observed: 12/29/2017 Status: F Source: [facility] 11:40 AM [facility] REPOSITORY EXAM: US RENAL, 12/29/2017 11:22 AM CLINICAL INDICATIONS: Acute kidney injury. COMPARISON: Renal sonogram, 11/19/2011. Correlation is also made with a CT of the abdomen and pelvis, 10/16/2017. TECHNIQUE: Multiple longitudinal and transverse real-time grayscale images of both kidneys were obtained. Color-flow Doppler images were also obtained. FINDINGS: Right Kidney: The right kidney measures 10.8 cm in length, which is within normal limits for the patient's age. Renal cortical thickness and echogenicity are within normal limits. Renal Pelvis: There is no hydronephrosis. No obvious renal calculi. Left Kidney: The left kidney measures 11.4 cm in length, which is within normal limits for the patient's age. Renal cortical thickness and echogenicity are within normal limits. Renal Pelvis: There is no hydronephrosis. No obvious renal calculi. Bladder: The bladder is decompressed and not visualized. Other: Incidental note is made of splenomegaly with the maximum craniocaudal length of 21.7 cm. IMPRESSION: 1. Normal sonographic appearance of kidneys without hydronephrosis. 2. Marked splenomegaly. ALYSIS REFLEX Collected: 12/29/2017 Status: F Source: [facility] CULTURE 9:08 AM [facility] REPOSITORY TYPE CODE TESTS RESULT OUT OF RANGE REFERENCE UNITS LAB SAP SOLUTION MANAGER CONSULTANT Clear Appearance Clear Urine LAB SPGR 1.001-1.035 Specific 1.014 [place] urine LAB UGL Negative mg/dL Glucose Negative Urine LAB UKET Negative Ketones Negative Urine LAB UBLD Negative Blood Urine Large Abnormal LAB UPH 5.0-7.0 pH Urine 6.0 LAB UPR Negative mg/dL Protein 100 Abnormal Urine LAB UNTR Negative Nitrites Negative Urine LAB ULEU Negative Leukocyte Negative Esterase LAB COLR Yellow Color [place] - Abnormal Result of urine dipstick analysis may be inaccurate due to color interference. Clinical correlation is recommended. LAB UURO <2.0 EU/dL 1.0 Urobilinogen urine LAB UWBC 0-5 /HPF WBC Urine 0-5 LAB URBC 0-2 /HPF RBC Urine >20 Abnormal LAB BACT Absent Bacteria Absent LAB UCOM COMMENT None URINE LAB EPIS /HPF Squamous 1+ Epithelial Performed By: #### URIN1 #### [facility] [address] [place] [address] [id number] CREATININE, URINE - Collected: 12/29/2017 Status: F Source: [facility] RANDOM 9:08 AM [facility] REPOSITORY TYPE CODE TESTS RESULT OUT OF RANGE REFERENCE UNITS LAB CREU1 mg/dL 58.00 Creatinine, urine mg/dL Result Comment: The reference range has not been established for random urine specimens. The test result should be integrated into the clinical context for interpretation. Performed By: #### UCRER, UNAR #### [facility] [address] [place] [id number] [place] [address] [place] [address] [id number] SODIUM, URINE - Collected: 12/29/2017 Status: F Source: [facility] RANDOM 9:08 AM [facility] REPOSITORY TYPE CODE TESTS RESULT OUT OF REFERENCE UNITS RANGE LAB NAU1 mmol/L URINE SODIUM 54 Result Comment: The reference range has not been established for random urine specimens. The test result should be integrated into the clinical context for interpretation. Performed By: #### UCRER, UNAR #### [facility] [address] [place] [id number] [place] [address] [place] [phone] *POC GLUCOSE BATTERY Collected: 12/29/2017 Status: F Source: [facility] 9:07 AM [facility] REPOSITORY TYPE CODE TESTS RESULT OUT OF REFERENCE UNITS RANGE LAB GLUP 70-99 mg/dL High Glucose (poc 140 device) Result Comment: No BRAVE per RN: PATIENT TYPE LAB PCSTYP *POC Capillary SAMPLE TYPE Blood HEMOGRAM (CBC AND Collected: 12/29/2017 Status: F Source: [facility] PLATELET) 2:26 AM [facility] REPOSITORY TYPE CODE TESTS RESULT OUT OF REFERENCE UNITS RANGE LAB WBC 3.98-10.04 K/uL Low WBC Count 3.56 LAB RBC 3.93-5.22 M/uL Low RBC Count 2.68 LAB HGB 11.2-15.7 g/dL Low Hemoglobin 7.6 LAB HCT 34.1-44.9 % Low Hematocrit 22.9 LAB MCV 79.4-94.8 fL Mean Cell Volume 85.4 LAB MCH 25.6-32.2 pg Mean Cell Hgb 28.4 LAB MCHC 32.2-35.5 g/dL Mean Cell Hgb Conc 33.2 LAB RDW 11.7-14.4 % RBC High Distribution 21.1 LAB PLT 182-369 K/uL Low Platelet Count 58 LAB MPV 9.4-12.3 fL Low Mean Platelet Volume 9.3 LAB NRBC 0.0-0.2 /100 WBC NUCLEATED RBC High 1.1 Performed By: #### HEMANDREWC, CHM7, HFP, MGO, PTPTT #### [facility] [address] [place] [id number] [place] [address] [place] [address] [id number] CHEM 7 Collected: 12/29/2017 Status: F Source: [facility] 2:26 AM [facility] REPOSITORY TYPE CODE TESTS RESULT OUT OF REFERENCE UNITS RANGE LAB BUN 7-22 mg/dL BUN 22 LAB NA 133-143 mmol/L Sodium 136 LAB K 3.5-5.0 mmol/L Potassium 4.0 LAB CL 98-108 mmol/L Chloride 105 LAB CO2 22-30 mmol/L Carbon Dioxide 25 LAB GLUC 70-99 mg/dL Glucose High 183 LAB CREA 0.50-1.20 mg/dL High Creatinine 1.90 LAB GAP 7-17 mmol/L Anion Gap 10 LAB BC BUN/CREA Ratio 12 LAB [facility] 278-305 mOsm/kg Osmolality 294 (Calc) LAB GFR >60 mL/min/1.73 Low sqM Est GFR,non 27 Estonian LAB GFRA >60 mL/min/1.73 Low sqM Est GFR, 32 Performed By: #### HEMANDREWC, CHM7, HFP, MGO, PTPTT #### [facility] [address] [place] [phone] [place] [address] [place] [address] [id number] HEPATIC FUNCTION Collected: 12/29/2017 Status: F Source: [facility] PANEL 2:26 AM [facility] REPOSITORY TYPE CODE TESTS RESULT OUT OF REFERENCE UNITS RANGE LAB ALB 3.5-5.0 g/dL Low Albumin 2.7 LAB BILD <0.3 mg/dL Bilirubin High Direct 1.1 LAB BILT <1.5 mg/dL Bilirubin High Total 3.3 LAB ALP 32-126 U/L Alkaline High Phosphatase 145 LAB ALT 9-48 U/L ALT 13 LAB AST 14-40 U/L AST 27 LAB TP 6.4-8.3 g/dL Low Total Protein 6.1 Performed By: #### HEMOGC, CHM7, HFP, MGO, PTPTT #### [facility] [address] [place] [id number] [place] [address] [place] [address] [id number] MAGNESIUM Collected: 12/29/2017 Status: F Source: [facility] 2:26 AM [facility] REPOSITORY TYPE CODE TESTS RESULT OUT OF REFERENCE UNITS RANGE LAB MG 1.6-2.6 mg/dL Magnesium 2.0 Performed By: #### HEMOGC, CHM7, HFP, MGO, PTPTT #### [facility] [address] [place] [id number] [place] [address] [place] [address] PT*PTT Collected: 12/29/2017 Status: F Source: [facility] 2:26 AM [facility] REPOSITORY TYPE CODE TESTS RESULT OUT OF RANGE REFERENCE UNITS LAB PT 11.9-14.2 sec High PT 16.3 LAB INR 0.9-1.1 High INR 1.3 LAB PTT 24.0-34.3 sec High PTT 40.6 Performed By: #### HEMOGC, CHM7, HFP, MGO, PTPTT #### [facility] [address] [place] [address] [address] [place] [address] *POC GLUCOSE BATTERY Collected: 12/28/2017 Status: F Source: [facility] 9:07 PM [facility] REPOSITORY TYPE CODE TESTS RESULT OUT OF REFERENCE UNITS RANGE LAB GLUP 70-99 mg/dL High Glucose (poc 223 device) Result Comment: Notified RNread back No BRAVE per RN: PATIENT TYPE LAB PCSTYP *POC Capillary SAMPLE TYPE Blood *POC GLUCOSE BATTERY Collected: 12/28/2017 Status: F Source: [facility] 4:33 PM [facility] REPOSITORY TYPE CODE TESTS RESULT OUT OF REFERENCE UNITS RANGE LAB GLUP 70-99 mg/dL High Glucose (poc 179 device) Result Comment: No BRAVE per RN: PATIENT TYPE LAB PCSTYP *POC Capillary SAMPLE TYPE Blood *POC GLUCOSE BATTERY Collected: 12/28/2017 Status: F Source: [facility] 11:44 AM [facility] REPOSITORY TYPE CODE TESTS RESULT OUT OF REFERENCE UNITS RANGE LAB GLUP 70-99 mg/dL High Glucose (poc 265 device) Result Comment: No BRAVE per RN: PATIENT TYPE LAB PCSTYP *POC Capillary SAMPLE TYPE Blood HEMOGRAM (CBC AND Collected: 12/28/2017 Status: F Source: [facility] PLATELET) 2:58 AM [facility] REPOSITORY TYPE CODE TESTS RESULT OUT OF REFERENCE UNITS RANGE LAB WBC 3.98-10.04 K/uL Low WBC Count 3.77 LAB RBC 3.93-5.22 M/uL Low RBC Count 2.90 LAB HGB 11.2-15.7 g/dL Low Hemoglobin 8.0 LAB HCT 34.1-44.9 % Low Hematocrit 24.7 LAB MCV 79.4-94.8 fL Mean Cell Volume 85.2 LAB MCH 25.6-32.2 pg Mean Cell Hgb 27.6 LAB MCHC 32.2-35.5 g/dL Mean Cell Hgb Conc 32.4 LAB RDW 11.7-14.4 % RBC High Distribution 20.4 LAB PLT 182-369 K/uL Low Platelet Count 69 LAB MPV 9.4-12.3 fL Mean Platelet Volume 9.7 LAB NRBC 0.0-0.2 /100 WBC NUCLEATED RBC High 1.1 Performed By: #### HEMOGC, CHM7, HFP, MGO, PTPTT #### [facility] [address] [place] [address] [place] [address] CHEM 7 Collected: 12/28/2017 Status: F Source: [facility] 2:58 AM [facility] REPOSITORY TYPE CODE TESTS RESULT OUT OF REFERENCE UNITS RANGE LAB BUN 7-22 mg/dL BUN 20 LAB NA 133-143 mmol/L Sodium 137 LAB K 3.5-5.0 mmol/L Potassium 4.0 LAB CL 98-108 mmol/L Chloride 105 LAB CO2 22-30 mmol/L Carbon Dioxide 24 LAB GLUC 70-99 mg/dL Glucose High 125 LAB CREA 0.50-1.20 mg/dL High Creatinine 1.59 LAB GAP 7-17 mmol/L Anion Gap 12 LAB BC BUN/CREA Ratio 13 LAB [facility] 278-305 mOsm/kg Osmolality 291 (Calc) LAB GFR >60 mL/min/1.73 Low sqM Est GFR,non 33 Estonian LAB GFRA >60 mL/min/1.73 Low sqM Est GFR, 40 Performed By: #### HEMOGC, CHM7, HFP, MGO, PTPTT #### [facility] [address] [place] [id number] [facility] [address] [place] [address] HEPATIC FUNCTION Collected: 12/28/2017 Status: F Source: [facility] 2:58 AM [facility] REPOSITORY TYPE CODE TESTS RESULT OUT OF REFERENCE UNITS RANGE LAB ALB 3.5-5.0 g/dL Low Albumin 2.8 LAB BILD <0.3 mg/dL Bilirubin High Direct 1.4 LAB BILT <1.5 mg/dL Bilirubin High Total 4.1 LAB ALP 32-126 U/L Alkaline High Phosphatase 153 LAB ALT 9-48 U/L ALT 13 LAB AST 14-40 U/L AST 27 LAB TP 6.4-8.3 g/dL Low Total Protein 6.3 Performed By: #### HEMOGC, CHM7, HFP, MGO, PTPTT #### [facility] [address] [place] [address] [place] [address] MAGNESIUM Collected: 12/28/2017 Status: F Source: [facility] 2:58 AM [facility] REPOSITORY TYPE CODE TESTS RESULT OUT OF REFERENCE UNITS RANGE LAB MG 1.6-2.6 mg/dL Magnesium 1.9 Performed By: #### HEMOGC, CHM7, HFP, MGO, PTPTT #### [facility] [address] [place] [phone] [place] [address] [address] [place] [address] PT*PTT Collected: 12/28/2017 Status: F Source: [facility] 2:58 AM [facility] REPOSITORY TYPE CODE TESTS RESULT OUT OF RANGE REFERENCE UNITS LAB PT 11.9-14.2 sec High PT 16.4 LAB INR 0.9-1.1 High INR 1.3 LAB PTT 24.0-34.3 sec High PTT 45.3 Performed By: #### HEMOGC, CHM7, HFP, MGO, PTPTT #### [facility] [address] [place], [place] [phone] [place] [address] [address] [address] *POC GLUCOSE BATTERY Collected: 12/27/2017 Status: F Source: [facility] 9:05 PM [facility] REPOSITORY TYPE CODE TESTS RESULT OUT OF REFERENCE UNITS RANGE LAB GLUP 70-99 mg/dL High Glucose (poc 216 device) Result Comment: No BRAVE per RN: PATIENT TYPE LAB PCSTYP *POC Capillary SAMPLE TYPE Blood *POC GLUCOSE BATTERY Collected: 12/27/2017 Status: F Source: [facility] 4:11 PM [facility] REPOSITORY TYPE CODE TESTS RESULT OUT OF REFERENCE UNITS RANGE LAB GLUP 70-99 mg/dL High Glucose (poc 222 device) Result Comment: No BRAVE per RN: PATIENT TYPE LAB PCSTYP *POC Capillary SAMPLE TYPE Blood *POC GLUCOSE BATTERY Collected: 12/27/2017 Status: F Source: [facility] 1:35 PM [facility] REPOSITORY TYPE CODE TESTS RESULT OUT OF REFERENCE UNITS RANGE LAB GLUP 70-99 mg/dL High Glucose (poc 179 device) Result Comment: No BRAVE per RN: PATIENT TYPE LAB PCSTYP *POC Capillary SAMPLE TYPE Blood *POC GLUCOSE BATTERY Collected: 12/27/2017 Status: F Source: [facility] 10:50 AM [facility] REPOSITORY TYPE CODE TESTS RESULT OUT OF REFERENCE UNITS RANGE LAB GLUP 70-99 mg/dL High Glucose (poc 212 device) Result Comment: No BRAVE per RN: PATIENT TYPE LAB PCSTYP *POC Capillary SAMPLE TYPE Blood *POC GLUCOSE BATTERY Collected: 12/27/2017 Status: F Source: [facility] 7:06 AM [facility] REPOSITORY TYPE CODE TESTS RESULT OUT OF REFERENCE UNITS RANGE LAB GLUP 70-99 mg/dL High Glucose (poc 161 device) Result Comment: Notified RNread back No BRAVE per RN: PATIENT TYPE LAB PCSTYP *POC Capillary SAMPLE TYPE Blood HEMOGRAM (CBC AND Collected: 12/27/2017 Status: F Source: [facility] PLATELET) 3:31 AM [facility] REPOSITORY TYPE CODE TESTS RESULT OUT OF REFERENCE UNITS RANGE LAB WBC 3.98-10.04 K/uL Low WBC Count 3.36 LAB RBC 3.93-5.22 M/uL Low RBC Count 2.75 LAB HGB 11.2-15.7 g/dL Low Hemoglobin 7.6 LAB HCT 34.1-44.9 % Low Hematocrit 23.3 LAB MCV 79.4-94.8 fL Mean Cell Volume 84.7 LAB MCH 25.6-32.2 pg Mean Cell Hgb 27.6 LAB MCHC 32.2-35.5 g/dL Mean Cell Hgb Conc 32.6 LAB RDW 11.7-14.4 % RBC High Distribution 19.9 LAB PLT 182-369 K/uL Low Platelet Count 68 LAB MPV 9.4-12.3 fL Mean Platelet Volume 9.9 LAB NRBC 0.0-0.2 /100 WBC NUCLEATED RBC 0.0 Performed By: #### HEMOGC, PTPTT, CHM7, HFP, MGO #### [facility] [address] [place] [address] [address] [place] [address] PT*PTT Collected: 12/27/2017 Status: F Source: [facility] 3:31 AM [facility] REPOSITORY TYPE CODE TESTS RESULT OUT OF RANGE REFERENCE UNITS LAB PT 11.9-14.2 sec High PT 16.9 LAB INR 0.9-1.1 High INR 1.4 LAB PTT 24.0-34.3 sec High PTT 38.1 Performed By: #### HEMOGC, PTPTT, CHM7, HFP, MGO #### [facility] [address] [place] [address] [place] [id number] CHEM 7 Collected: 12/27/2017 Status: F Source: [facility] 3:31 [facility] REPOSITORY TYPE CODE TESTS RESULT OUT OF REFERENCE UNITS RANGE LAB BUN 7-22 mg/dL BUN 22 LAB NA 133-143 mmol/L Sodium 137 LAB K 3.5-5.0 mmol/L Potassium 4.3 LAB CL 98-108 mmol/L Chloride 107 LAB CO2 22-30 mmol/L Carbon Dioxide 22 LAB GLUC 70-99 mg/dL Glucose High 180 LAB CREA 0.50-1.20 mg/dL High Creatinine 1.60 LAB GAP 7-17 mmol/L Anion Gap 12 LAB BC BUN/CREA Ratio 14 LAB [facility] 278-305 mOsm/kg Osmolality 296 (Calc) LAB GFR >60 mL/min/1.73 Low sqM Est GFR,non 33 Estonian LAB GFRA >60 mL/min/1.73 Low sqM Est GFR, 39 Performed By: #### HEMOGC, PTPTT, CHM7, HFP, MGO #### [facility] [address] [place] [address] [address] [place] [address] HEPATIC FUNCTION Collected: 12/27/2017 Status: F Source: [facility] PANEL 3:31 AM [facility] REPOSITORY TYPE CODE TESTS RESULT OUT OF REFERENCE UNITS RANGE LAB ALB 3.5-5.0 g/dL Low Albumin 2.7 LAB BILD <0.3 mg/dL Bilirubin High Direct 1.4 LAB BILT <1.5 mg/dL Bilirubin High Total 4.0 LAB ALP 32-126 U/L Alkaline High Phosphatase 144 LAB ALT 9-48 U/L ALT 13 LAB AST 14-40 U/L AST 31 LAB TP 6.4-8.3 g/dL Low Total Protein 6.1 Performed By: #### HEMOGC, PTPTT, CHM7, HFP, MGO #### [facility] [address] [place] [address] [address] [place] [address] MAGNESIUM Collected: 12/27/2017 Status: F Source: [facility] 3:31 AM [facility] REPOSITORY TYPE CODE TESTS RESULT OUT OF REFERENCE UNITS RANGE LAB MG 1.6-2.6 mg/dL Magnesium 2.0 Performed By: #### HEMOGC, PTPTT, CHM7, HFP, MGO #### [facility] [address] [place] [address] [address] [place] [address] *POC GLUCOSE BATTERY Collected: 12/26/2017 Status: F Source: [facility] 9:04 PM [facility] REPOSITORY TYPE CODE TESTS RESULT OUT OF REFERENCE UNITS RANGE LAB GLUP 70-99 mg/dL High Glucose (poc 184 device) Result Comment: Notified RNread back No BRAVE per RN: PATIENT TYPE LAB PCSTYP *POC Capillary SAMPLE TYPE Blood *POC GLUCOSE BATTERY Collected: 12/26/2017 Status: F Source: [facility] 4:47 PM [facility] REPOSITORY TYPE CODE TESTS RESULT OUT OF REFERENCE UNITS RANGE LAB GLUP 70-99 mg/dL High Glucose (poc 252 device) Result Comment: Notified RNread back No BRAVE per RN: PATIENT TYPE LAB PCSTYP *POC Capillary SAMPLE TYPE Blood *POC GLUCOSE BATTERY Collected: 12/26/2017 Status: F Source: [facility] 11:30 AM [facility] REPOSITORY TYPE CODE TESTS RESULT OUT OF REFERENCE UNITS RANGE LAB GLUP 70-99 mg/dL High Glucose (poc 202 device) Result Comment: No BRAVE per RN: PATIENT TYPE LAB PCSTYP *POC Capillary SAMPLE TYPE Blood *POC GLUCOSE BATTERY Collected: 12/26/2017 Status: F Source: [facility] 7:22 AM [facility] REPOSITORY TYPE CODE TESTS RESULT OUT OF REFERENCE UNITS RANGE LAB GLUP 70-99 mg/dL High Glucose (poc 118 device) Result Comment: No BRAVE per RN: PATIENT TYPE LAB PCSTYP *POC Capillary SAMPLE TYPE Blood NUC LUNG VENTILATION/PERFUSION Observed: Status: F Source: [facility] 12/26/2017 6:03 AM [facility] REPOSITORY EXAM: NUC LUNG VENTILATION/PERFUSION, 12/26/2017 05:36 AM CLINICAL INDICATIONS: new hypoxia, contrast allergy; COMPARISON: Same day chest x-ray TECHNIQUE: 29.4 millicuries technetium 99m aerosolized DTPA was inhaled per protocol for the ventilation images. 4.05 mCi Tc 99m MAA was administered IV per protocol for the perfusion images. Planar images of the chest in the anterior, posterior, right lateral, left lateral, right posterior oblique and left posterior oblique projections were obtained for both ventilation and perfusion portions of the study. FINDINGS: There are no segmental or subsegmental perfusion defects. Heterogeneity of radiotracer activity similar on ventilation and perfusion. There are no mismatched ventilation/perfusion defects. IMPRESSION: Low probability for acute pulmonary embolism. GRAM ENOCH Collected: 12/26/2017 Status: F Source: [facility] 5:37 AM [facility] REPOSITORY TYPE CODE TESTS RESULT OUT OF REFERENCE UNITS RANGE LAB WBC 3.98-10.04 K/uL Low WBC Count 3.89 LAB RBC 3.93-5.22 M/uL Low RBC Count 3.04 LAB HGB 11.2-15.7 g/dL Low Hemoglobin 8.3 LAB HCT 34.1-44.9 % Low Hematocrit 25.9 LAB MCV 79.4-94.8 fL Mean Cell Volume 85.2 LAB MCH 25.6-32.2 pg Mean Cell Hgb 27.3 LAB MCHC 32.2-35.5 g/dL Low Mean Cell Hgb Conc 32.0 LAB RDW 11.7-14.4 % RBC High Distribution 19.9 LAB PLT 182-369 K/uL Low Platelet Count 74 LAB MPV 9.4-12.3 fL Low Mean Platelet Volume 9.3 LAB NRBC 0.0-0.2 /100 WBC NUCLEATED RBC 0.0 Performed By: #### HEMOGJ #### [facility] [address] [place] [address] #### IRBC #### [facility] [address] [place] [address] [address] [place] [address] PT*PTT - CHRI Collected: 12/26/2017 Status: F Source: [facility] 5:37 AM [facility] REPOSITORY TYPE CODE TESTS RESULT OUT OF RANGE REFERENCE UNITS LAB PT 11.9-14.2 sec High PT 16.6 LAB INR 0.9-1.1 High INR 1.4 LAB PTT 24.0-34.3 sec High PTT 34.7 Performed By: #### HEMOGJ #### [facility], [facility] [address] [place] [address] #### IRBC #### [facility] [address] [place] [address] [address] [place] [address] HEPATIC FUNCTIONS - Collected: 12/26/2017 Status: F Source: [facility] 5:37 AM [facility] REPOSITORY TYPE CODE TESTS RESULT OUT OF REFERENCE UNITS RANGE LAB AST 14-40 U/L AST 38 LAB ALT 9-48 U/L ALT 15 LAB ALP 32-126 U/L Alkaline Phosphatase 125 LAB ALB 3.5-5.0 g/dL Low Albumin 2.8 LAB BILD <0.3 mg/dL Bilirubin High Direct 1.4 LAB BILT <1.5 mg/dL Bilirubin High Total 4.0 LAB TP 6.4-8.3 g/dL Low Total Protein 6.3 Performed By: #### HEMOGTaylor #### [facility] [address] [place] [id number] #### IRBC #### [facility] [address] [place] [id number] [place] [address] [place] [phone] CHEM 7 - CHRI Collected: 12/26/2017 Status: F Source: [facility] 5:37 AM [facility] REPOSITORY TYPE CODE TESTS RESULT OUT OF REFERENCE UNITS RANGE LAB BUN 7-22 mg/dL BUN 19 LAB CREA 0.50-1.20 mg/dL High Creatinine 1.34 LAB NA 133-143 mmol/L Sodium 135 LAB K 3.5-5.0 mmol/L Potassium 4.5 LAB CL 98-108 mmol/L Chloride 108 LAB CO2 22-30 mmol/L Low Carbon Dioxide 21 LAB GLUC 70-99 mg/dL Glucose High 126 LAB GFR >60 mL/min/1.73 Low sqM Est GFR,non 40 Estonian LAB GFRA >60 mL/min/1.73 Low sqM Est GFR, 48 LAB GAP 7-17 mmol/L Anion Gap 11 LAB BC BUN/CREA Ratio 14 LAB [facility] 278-305 mOsm/kg Osmolality 288 (Calc) Performed By: #### HEMOGJ #### [facility] [address] [place] [id number] #### IRBC #### [facility] [address] [place] [phone] [facility] [address] [place] [address] 3[address] MAGNESIUM - CHRI Collected: 12/26/2017 Status: F Source: [facility] 5:37 AM [facility] REPOSITORY TYPE CODE TESTS RESULT OUT OF REFERENCE UNITS RANGE LAB MG 1.6-2.6 mg/dL Magnesium 2.1 Performed By: #### HEMOGJ #### [facility], [facility] [address] [place], [place] [id number] #### IRBC #### [facility] [address] [place] [address] [facility] [address] [place] [address] [phone] IRON*TIBC (TRANSFERRIN) Collected: 12/26/2017 Status: F Source: [facility] 5:37 AM [facility] REPOSITORY TYPE CODE TESTS RESULT OUT OF REFERENCE UNITS RANGE LAB IRON 40-174 mcg/dL Iron 82 LAB TIBC 298-596 mcg/dL Total Iron Binding Capacity 390 LAB IRONS 20-55 % *Iron*Saturation 21 LAB MORALES 200-400 mg/dL Transferrin 262 Performed By: #### HEMOGJ #### [facility], [facility] [address] [place] [address] #### IRBC #### [facility] [address] [place] [address] [address] [place] [address] [id number] FERRITIN Collected: 12/26/2017 Status: F Source: [facility] 5:37 AM [facility] REPOSITORY TYPE CODE TESTS RESULT OUT OF RANGE REFERENCE UNITS LAB FERI 10-291 ng/mL *Ferritin 30 Performed By: #### FERIB, B12B, FOLSB #### [facility] [address] [place] [address] [place] [address] 95746 VITAMIN B12 Collected: 12/26/2017 Status: F Source: [facility] 5:37 AM [facility] REPOSITORY TYPE CODE TESTS RESULT OUT OF RANGE REFERENCE UNITS LAB B12 211-911 pg/mL High 1277 *Vitamin*B12 Performed By: #### FERIB, B12B, FOLSB #### [facility] [address] [place] [id number] [facility] [address] [place] [address] [phone] FOLATE, SERUM Collected: 12/26/2017 Status: F Source: [facility] 5:37 AM [facility] REPOSITORY TYPE CODE TESTS RESULT OUT OF RANGE REFERENCE UNITS LAB FOLS >5.38 ng/mL 5.89 *Folate*Seru m Performed By: #### FERIB, B12B, FOLSB #### [facility] [address] [place] [address] [place] [address] [facility] [address] [place], [place] [address] XR CHEST AP PORTABLE Observed: 12/26/2017 Status: F Source: [facility] ED 2:33 AM [facility] REPOSITORY EXAM: XR CHEST AP PORTABLE ED, 12/26/2017 02:14 AM COMPARISON: [id number] CLINICAL INDICATIONS: new hypoxia RELEVANT CLINICAL HISTORY: FINDINGS: Life Support Devices: None Chest Wall: Grossly stable Jodi: Normal Mediastinum: Normal Pleural Spaces: No definite pleural effusion. No definite pneumothorax. Lungs: Clear Cardiac Silhouette: Normal, without overall or specific chamber enlargement, or abnormal calcification Thoracic Aorta: Significant atherosclerotic changes Pulmonary Vessels: Normal, without PVH IMPRESSION: No acute cardiopulmonary findings. *PTT - CHRI Collected: 12/26/2017 Status: F Source: [facility] 12:41 AM [facility] REPOSITORY TYPE CODE TESTS RESULT OUT OF RANGE REFERENCE UNITS LAB PT 11.9-14.2 sec High PT 16.0 LAB INR 0.9-1.1 High INR 1.3 LAB PTT 24.0-34.3 sec High PTT 36.5 Performed By: #### CBCDFJ #### Enoch [facility], [facility] [address] [place] [address] CHEM 7 - CHRI Collected: 12/26/2017 Status: F Source: [facility] 12:41 AM [facility] REPOSITORY TYPE CODE TESTS RESULT OUT OF REFERENCE UNITS RANGE LAB BUN 7-22 mg/dL BUN 21 LAB CREA 0.50-1.20 mg/dL High Creatinine 1.21 LAB NA 133-143 mmol/L Sodium 133 LAB K 3.5-5.0 mmol/L Potassium 4.2 LAB CL 98-108 mmol/L Chloride 105 LAB CO2 22-30 mmol/L Carbon Dioxide 22 LAB GLUC 70-99 mg/dL Glucose 92 LAB GFR >60 mL/min/1.73 Low sqM Est GFR,non 45 Estonian LAB GFRA >60 mL/min/1.73 Low sqM Est GFR, 54 LAB GAP 7-17 mmol/L Anion Gap 10 LAB BC BUN/CREA Ratio 17 LAB OSMC 278-305 mOsm/kg Osmolality 283 (Calc) Performed By: #### ISSACJ #### [facility] [address] [place] [address] CALCIUM - CHRI Collected: 12/26/2017 Status: F Source: [facility] 12:41 AM [facility] REPOSITORY TYPE CODE TESTS RESULT OUT OF REFERENCE UNITS RANGE LAB CA 8.6-10.5 mg/dL Calcium 8.8 Performed By: #### ISSACJ #### Enoch [facility], [facility] [address] [place] [address]1970 HEPATIC FUNCTIONS - Collected: 12/26/2017 Status: F [facility] REPOSITORY TYPE CODE TESTS RESULT OUT OF REFERENCE UNITS RANGE LAB AST 14-40 U/L AST 39 LAB ALT 9-48 U/L ALT 18 LAB ALP 32-126 U/L Alkaline High Phosphatase 139 LAB ALB 3.5-5.0 g/dL Low Albumin 3.0 LAB BILD <0.3 mg/dL Bilirubin High Direct 1.4 LAB BILT <1.5 mg/dL Bilirubin High Total 4.2 LAB TP 6.4-8.3 g/dL Total Protein 6.5 Performed By: #### BOOMDFJ #### Enoch [facility] [address] [place] [address] INORG PHOSPHATE - CHRI Collected: 12/26/2017 Status: F Source: [facility] 12:41 [facility] REPOSITORY TYPE CODE TESTS RESULT OUT OF REFERENCE UNITS RANGE LAB IP 2.2-4.6 mg/dL Inorg Phosphate 3.4 Performed By: #### BOOMDFJ #### Enoch [facility] [address] [place] [address]85 MAGNESIUM - CHRI Collected: 12/26/2017 Status: F Source: [facility] 12:41 [facility] REPOSITORY TYPE CODE TESTS RESULT OUT OF REFERENCE UNITS RANGE LAB MG 1.6-2.6 mg/dL Magnesium 2.1 Performed By: #### CBCDFJ #### Enoch [facility] [address] [place] [address]714 TROPONIN - CHRI Collected: 12/26/2017 Status: F Source: [facility] 12:41 AM [facility] REPOSITORY TYPE CODE TESTS RESULT OUT OF REFERENCE UNITS RANGE LAB TROP <0.11 ng/mL Troponin I 0.01 Performed By: #### CBCDFJ #### Enoch [facility], [facility] [address] [place], [place] [address] CBC WITH DIFF ENOCH Collected: 12/26/2017 Status: F Source: [facility] 12:41 AM [facility] REPOSITORY TYPE CODE TESTS RESULT OUT OF REFERENCE UNITS RANGE LAB WBC 3.98-10.04 K/uL WBC Count 4.77 LAB RBC 3.93-5.22 M/uL Low RBC Count 3.14 LAB HGB 11.2-15.7 g/dL Low Hemoglobin 8.7 LAB HCT 34.1-44.9 % Low Hematocrit 26.3 LAB MCV 79.4-94.8 fL Mean Cell Volume 83.8 Result Comment: Results inconsistent with previous results LAB MCH 25.6-32.2 pg Mean Cell 27.7 Hgb LAB MCHC 32.2-35.5 g/dL Mean Cell 33.1 Hgb Conc LAB RDW 11.7-14.4 % RBC 19.3 High Distribution LAB PLT 182-369 K/uL Platelet 97 Low Count LAB MPV 9.4-12.3 fL Mean 9.5 Platelet Volume LAB NRBC 0.0-0.2 /100 WBC NUCLEATED 0.0 RBC LAB DTYPE Electronic DIFFERENTIAL TYPE Differential LAB IGRE % IMMATURE 0.6 GRANS % LAB SEGS % NEUTROPHIL 59.3 SEGMENTED LAB LYM % LYMPHOCYTE 20.5 % LAB MON % MONOCYTE % 13.6 LAB EOS % EOSINOPHIL 5.2 % LAB BASO % BASOPHIL % 0.8 LAB IGABS 0.00-0.03 K/uL IMMATURE 0.03 GRANS ABSOLUTE LAB SBANS 1.56-6.13 K/uL SEGS + 2.82 Bands,Absolute LAB ALYM 1.18-3.74 K/uL Abs Lymph 0.98 Low LAB AMONO 0.24-0.86 K/uL Abs Laurel 0.65 LAB AEOS 0.04-0.36 K/uL Abs Eos 0.25 LAB ABASO 0.01-0.08 K/uL Abs Baso 0.04 Performed By: #### CBCDFJ #### Enoch [facility], [facility] [address] [place], [place] [address] Observed: 12/26/2017 Status: F Source: [facility] BLOOD:ROUTINE I 12:41 AM [facility] REPOSITORY SOURCE: BLOOD, PERIPHERAL: Site not specified RESULT: NO GROWTH DAY 5 OF 5 REPORT STATUS: 12/31/2017 FINAL Performed By: #### FAST #### [address] [address] Blood Cultures processed at: [facility] Observed: 12/26/2017 Status: F Source: [facility] BLOOD:ROUTINE II 12:41 AM [facility] REPOSITORY SOURCE: BLOOD, PERIPHERAL: Site not specified RESULT: NO GROWTH DAY 5 OF 5 REPORT STATUS: 12/31/2017 FINAL Performed By: #### FAST2 #### [place] [id number] Blood Cultures processed at: [facility] XR ANKLE 3+ VIEWS Observed: 12/25/2017 Status: F Source: [facility] 7:18 PM [facility] REPOSITORY Exam Date/Time: 12/25/2017 19:29 EDT Reason for Exam: Pain Report Exam: Left ankle, 3 views INDICATION: Pain FINDINGS: There is soft tissue swelling over the lateral malleolus. There is no fracture or dislocation. IMPRESSION: Soft tissue swelling. FINAL REPORT Dictated: 12/25/2017 7:59 pm Ramiro Valdez MD Signed (Electronic Signature): 12/25/2017 7:59 pm Signed by: Ramiro Valdez MD Technologist: [facility] BMP Collected: 12/25/2017 Status: F Source: [facility] 7:01 PM [facility] REPOSITORY TYPE CODE TESTS RESULT OUT OF RANGE REFERENCE UNITS LAB 35056195(L 70-99 mg/dL OINC) High Glucose Lvl 199 LAB 70657200(L 8.4-10.2 mg/dL OINC) Low Calcium Lvl 8.2 LAB 38300507(L 136-145 mEq/L OINC) Low Sodium Lvl 130 LAB 77009382(L 3.5-5.1 mEq/L OINC) Normal Potassium Lvl 3.8 LAB 69405187(L 98-107 mEq/L OINC) Chloride Normal 102 LAB 30257543(L 24.0-30.0 mEq/L OINC) Low CO2 21.0 LAB 36057195(L 7-18 mg/dL OINC) High BUN 20 LAB 9416874(LO 0.6-1.3 mg/dL INC) Normal Creatinine 1.3 LAB 89934388(L 5.4-30.0 ratio OINC) Normal BUN/Creat Ratio 15.4 Performed By: #### [id number] #### DLMali [employer] [facility] [place] [id number] EGFR Collected: 12/25/2017 Status: F Source: [facility] [address] [place] [address] REPOSITORY Order Comment: Order added by Discern Expert. TYPE CODE TESTS RESULT OUT OF RANGE REFERENCE UNITS LAB 84217486(LO mL/min/1.73 INC) m2 Normal eGFR 41 LAB 03932258(LO mL/min/1.73 INC) m2 Normal eGFR AA 50 Performed By: #### [id number] #### DL [employer] [facility] [place] [address] LACTIC ACID Collected: 12/25/2017 Status: F Source: [facility] [address] [place] [address] REPOSITORY TYPE CODE TESTS RESULT OUT OF RANGE REFERENCE UNITS LAB 14372859(LO 0.5-2.2 mmol/L INC) Normal Lactic Acid 1.6 Lvl Performed By: #### [id number] #### [facility] [address] [place] [address] CBC W/ AUTO DIFF Collected: 12/25/2017 Status: F Source: [facility] [address] [place] [address] REPOSITORY TYPE CODE TESTS RESULT OUT OF RANGE REFERENCE UNITS LAB 78738423(L 3.6-11.0 E3/mcL OINC) Low WBC 3.5 LAB 39393647(L 3.90-5.40 E6/mcL OINC) Low RBC 3.16 LAB 13123380(L 12.0-16.0 G/DL OINC) Low Hgb 8.7 LAB 65111805(L 36.0-48.0 % OINC) Low Hct 25.9 LAB 49464061(L 11.5-14.5 % OINC) High RDW 19.0 LAB 60686881(L 27.0-31.0 pg OINC) Normal MCH 27.5 LAB 62768845(L 33.0-37.0 G/DL OINC) Normal MCHC 33.5 LAB 71071416(L 78.0-100.0 fL OINC) Normal MCV 82.0 LAB 19937490(L 7.4-11.0 fL OINC) Low MPV 6.6 LAB 30569447(L 130-400 E3/mcL OINC) Low Platelet 81 Performed By: #### [id number] #### DL [employer] [address] [place] [address] MORPH Collected: 12/25/2017 Status: F Source: [place] [address]:[address] [place] [address] REPOSITORY Order Comment: Order Added by Discern Expert. TYPE CODE TESTS RESULT OUT OF REFERENCE UNITS RANGE LAB 91739464( LOINC) RBC Morph SEE Normal MORPHOLOGY LAB 53582648( LOINC) Hypochromasia 2+ Normal LAB 68340388( LOINC) Poikilocytosis 1+ Normal LAB 51546049( LOINC) Anisocytosis 1+ Normal Performed By: #### [id number] #### DL [employer] [address] [place] [address] ZZPLT MORPH Collected: 12/25/2017 Status: F Source: [place] [address]:[address] [place] [address] REPOSITORY TYPE CODE TESTS RESULT OUT OF RANGE REFERENCE UNITS LAB 20582995(L OINC) Normal Platelet DECREASED Estimate LAB 02472428(L OINC) Normal Platelet Morph NORMAL Performed By: #### [id number] #### DL [employer] [address] [place] [address] AUTO DIFF Collected: 12/25/2017 Status: F Source: [place] [address]:[address] [place] [address] REPOSITORY Order Comment: Order Added by Discern Expert. TYPE CODE TESTS RESULT OUT OF RANGE REFERENCE UNITS LAB 35954338(L 37.0-75.0 % OINC) Normal Neutro Auto 59.5 LAB 43624574(L 20.0-55.0 % OINC) Normal Lymph Auto 22.9 LAB 29637701(L 0.0-10.0 % OINC) High Laurel Auto 11.1 LAB 75217654(L 0.0-11.0 % OINC) Normal Eos Auto 5.3 LAB 19734066(L 0.0-2.0 % OINC) Normal Basophil Auto 1.2 LAB 11613711(L 1.4-6.5 E3/mcL OINC) Normal Neutro 2.1 Absolute LAB 80115324(L 1.2-3.4 E3/mcL OINC) Low Lymph Absolute 0.8 LAB 45652766(L 0.0-0.7 E3/mcL OINC) Normal Laurel Absolute 0.4 LAB 30371346(L 0.0-0.7 E3/mcL OINC) Normal Eos Absolute 0.2 LAB 23730180(L 0.0-0.2 E3/mcL OINC) Normal Basophil 0.0 Absolute Performed By: #### [id number] #### DL RemHemo [address] [place] [address] Observed: 12/25/2017 Status: F Source: [place] [place] BLOOD 7:01 PM [facility] REPOSITORY Final Report: No growth at 5 Days Performed By: #### [id number] #### DL Microbiology Automated Subsection [address] [place] [address] Observed: 12/22/2017 Status: F Source: [place] [place] WOUND 2:57 PM [facility] REPOSITORY Final Report: No growth Gram Stain Report: No organisms seen. Performed By: #### [id number] #### DL Microbiology Subsection [address] [place] [address] GLUCOSE POC Collected: 12/19/2017 Status: F Source: [facility] 11:27 AM [facility] REPOSITORY TYPE CODE TESTS RESULT OUT OF REFERENCE UNITS RANGE LAB 06824620(LO 70-99 mg/dL INC) High Glucose POC 255 Performed By: #### [id number] #### DL POC Subsection [address] [place] [address] GLUCOSE POC Collected: 12/19/2017 Status: F Source: [facility] 7:42 AM [facility] REPOSITORY TYPE CODE TESTS RESULT OUT OF REFERENCE UNITS RANGE LAB 02527918(LO 70-99 mg/dL INC) High Glucose POC 106 Performed By: #### [id number] #### DL POC Subsection [address] [place] [address] BMP Collected: 12/19/2017 Status: F Source: [facility] 5:54 AM [facility] REPOSITORY TYPE CODE TESTS RESULT OUT OF RANGE REFERENCE UNITS LAB 86426477(L 70-99 mg/dL OINC) High Glucose Lvl 101 LAB 84022697(L 7-18 mg/dL OINC) High BUN 22 LAB 5700044(LO 0.6-1.3 mg/dL INC) High Creatinine 1.4 LAB 94568756(L 5.4-30.0 ratio OINC) Normal BUN/Creat Ratio 15.7 LAB 73804001(L 8.4-10.2 mg/dL OINC) Low Calcium Lvl 8.0 LAB 07311394(L 136-145 mEq/L OINC) Sodium Normal Lvl 137 LAB 49292970(L 3.5-5.1 mEq/L OINC) Normal Potassium Lvl 3.9 LAB 29535956(L 98-107 mEq/L OINC) High Chloride 110 LAB 46226342(L 24.0-30.0 mEq/L OINC) Low CO2 22.5 Performed By: #### [id number] #### DL [employer] [facility] [place] [address] EGFR Collected: 12/19/2017 Status: F Source: [facility] 5:54 AM [facility] REPOSITORY Order Comment: Order added by Discern Expert. TYPE CODE TESTS RESULT OUT OF RANGE REFERENCE UNITS LAB 11572024(LO mL/min/1.73 INC) m2 Normal eGFR 38 LAB 18975092(LO mL/min/1.73 INC) m2 Normal eGFR AA 46 Performed By: #### [id number] #### DL [employer] [facility] [place] [address] CBC W/ AUTO DIFF Collected: 12/19/2017 Status: F Source: [facility] 5:54 AM [facility] REPOSITORY TYPE CODE TESTS RESULT OUT OF RANGE REFERENCE UNITS LAB 84410185(L 3.6-11.0 E3/mcL OINC) Normal WBC 4.1 LAB 29094340(L 3.90-5.40 E6/mcL OINC) Low RBC 3.13 LAB 53976419(L 12.0-16.0 G/DL OINC) Low Hgb 8.8 LAB 08616963(L 36.0-48.0 % OINC) Low Hct 25.5 LAB 32843435(L 11.5-14.5 % OINC) High RDW 18.0 LAB 61434256(L 27.0-31.0 pg OINC) Normal MCH 27.9 LAB 46778522(L 33.0-37.0 G/DL OINC) Normal MCHC 34.3 LAB 64738732(L 78.0-100.0 fL OINC) Normal MCV 81.5 LAB 00777430(L 7.4-11.0 fL OINC) Low MPV 7.0 LAB 45274964(L 130-400 E3/mcL OINC) Low Platelet 82 Performed By: #### [id number] #### DL [employer] [facility] [place] [address] MORPH Collected: 12/19/2017 Status: F Source: [facility] 5:54 AM [facility] REPOSITORY Order Comment: Order Added by Discern Expert. TYPE CODE TESTS RESULT OUT OF REFERENCE UNITS RANGE LAB 66131682( LOINC) RBC Morph SEE Normal MORPHOLOGY LAB 63045535( LOINC) 1+ Normal Anisocytosis Performed By: #### [id number] #### [facility] [address] [place] [address] ZZPLT MORPH Collected: 12/19/2017 Status: F Source: [facility] 5:54 AM [facility] REPOSITORY TYPE CODE TESTS RESULT OUT OF RANGE REFERENCE UNITS LAB 48138280(L OINC) Normal Platelet DECREASED Estimate LAB 19222899(L OINC) Normal Platelet Morph NORMAL Performed By: #### [id number] #### DL [employer] [address] [place] [address] AUTO DIFF Collected: 12/19/2017 Status: F Source: [facility] 5:54 AM [facility] REPOSITORY Order Comment: Order Added by Discern Expert. TYPE CODE TESTS RESULT OUT OF RANGE REFERENCE UNITS LAB 90007112(L 37.0-75.0 % OINC) Normal Neutro Auto 68.8 LAB 28387472(L 20.0-55.0 % OINC) Low Lymph Auto 15.9 LAB 54235051(L 0.0-10.0 % OINC) Normal Laurel Auto 9.2 LAB 81417176(L 0.0-11.0 % OINC) Normal Eos Auto 5.2 LAB 01641918(L 0.0-2.0 % OINC) Normal Basophil Auto 0.9 LAB 81347819(L 1.4-6.5 E3/mcL OINC) Normal Neutro 2.8 Absolute LAB 89365925(L 1.2-3.4 E3/mcL OINC) Low Lymph Absolute 0.7 LAB 59435255(L 0.0-0.7 E3/mcL OINC) Normal Laurel Absolute 0.4 LAB 76876824(L 0.0-0.7 E3/mcL OINC) Normal Eos Absolute 0.2 LAB 34447707(L 0.0-0.2 E3/mcL OINC) Normal Basophil 0.0 Absolute Performed By: #### [id number] #### DL [employer] [address] [place] [address] GLUCOSE POC Collected: 12/18/2017 Status: F Source: [facility] 8:22 PM [facility] REPOSITORY TYPE CODE TESTS RESULT OUT OF REFERENCE UNITS RANGE LAB 87734472(LO 70-99 mg/dL INC) High Glucose POC 253 Performed By: #### [id number] #### DL POC Subsection [address] [place] [address] GLUCOSE POC Collected: 12/18/2017 Status: F Source: [facility] 4:42 PM [facility] REPOSITORY TYPE CODE TESTS RESULT OUT OF REFERENCE UNITS RANGE LAB 69958624(LO 70-99 mg/dL INC) High Glucose POC 282 Performed By: #### [id number] #### DL POC Subsection [facility] [place] [address] MRI ANKLE W/O Observed: 12/18/2017 Status: F Source: [facility] CONTRAST LEFT 12:10 PM [facility] REPOSITORY Exam Date/Time: 12/18/2017 13:05 EDT Reason for Exam: Cellulitis Report HISTORY: The patient reportedly suffered a cat bite to the lateral aspect of the left ankle approximately one week ago. Redness and swelling of the ankle. The patient was found to have a possible abscess along the anterolateral aspect of the ankle on a recent MRI of 12/16/2017. Follow-up. MRI OF THE LEFT ANKLE WITHOUT CONTRAST 12/18/2017. COMPARISON: MRI left ankle 12/16/2017. TECHNIQUE: Axial proton density, STIR, T2 fat-saturated images, sagittal T1, STIR, 3-D T2 gradient echo images, coronal T1, T2, and T2 fat-saturated images of the left ankle were obtained without contrast. FINDINGS: The major ligaments of the ankle appear within normal limits. No osteochondral defect of the tibiotalar joint is seen. A plantar calcaneal enthesophyte is again seen with evidence of the sequela of mild plantar fasciitis. A longitudinal split tear of the peroneus brevis tendon is again seen measuring approximately 1.6 cm in length. The other tendons of the ankle appear within normal limits. There is a similar appearance of diffuse soft tissue edema surrounding the lower leg, ankle, and extending into the dorsum of the foot. A small amount of edema-like signal is again seen within the distal extensor digitorum longus muscle. Along the anterolateral aspect of the ankle superficial to the extensor digitorum longus muscle there is an ovoid fluid signal intensity collection again seen. This has slightly decreased in size since the prior study. This currently measures 0.9 x 2.4 x 5.8 cm in transverse, AP, and craniocaudal dimension. This previously measured 1.1 x 2.8 x 6.2 cm. No other fluid signal intensity collection is seen. Bone marrow signal intensity appears age appropriate. No bone marrow edema-like signal is seen to suggest osteomyelitis. IMPRESSION: 1. There has been slight interval decrease in the size of a fluid signal intensity collection along the surface of the extensor digitorum longus muscle along the anterolateral aspect of the ankle since the prior MRI of 12/16/2017. Differential diagnostic considerations for this collection primarily include an abscess or hematoma. The remainder of the examination appears similar to the prior study. 2. Diffuse soft tissue edema of the lower leg, ankle, and dorsum of the foot is likely due to a cellulitis. Exam Date/Time: 12/18/2017 13:05 EDT Report 3. Probable myositis or grade 1 muscle strain of the extensor digitorum longus muscle. 4. There is no MRI evidence of osteomyelitis of the ankle. 5. Stable appearance of a longitudinal split tear of the peroneus brevis tendon. FINAL REPORT Dictated: 12/18/2017 5:04 pm Ambrose Briones MD Signed (Electronic Signature): 12/18/2017 5:04 pm Signed by: Ambrose Briones MD Technologist: SERVANDO, GLUCOSE POC Collected: 12/18/2017 Status: F Source: [facility] 11:31 AM [facility] REPOSITORY TYPE CODE TESTS RESULT OUT OF REFERENCE UNITS RANGE LAB [id number](LO 70-99 mg/dL INC) High Glucose POC 138 Performed By: #### [id number] #### [place] [address] GLUCOSE POC Collected: 12/18/2017 Status: F Source: [facility] 7:42 AM [facility] REPOSITORY TYPE CODE TESTS RESULT OUT OF REFERENCE UNITS RANGE LAB 82072353(LO 70-99 mg/dL INC) High Glucose POC 144 Performed By: #### [id number] #### DL POC Subsection [address] [place] [id number] BMP Collected: 12/18/2017 Status: F Source: [facility] 6:05 AM [facility] REPOSITORY TYPE CODE TESTS RESULT OUT OF RANGE REFERENCE UNITS LAB 95395653(L 70-99 mg/dL OINC) High Glucose Lvl 148 LAB 15662326(L 7-18 mg/dL OINC) High BUN 23 LAB 1597939(LO 0.6-1.3 mg/dL INC) High Creatinine 1.5 LAB 58308853(L 5.4-30.0 ratio OINC) Normal BUN/Creat Ratio 15.3 LAB 73989688(L 8.4-10.2 mg/dL OINC) Low Calcium Lvl 8.1 LAB 03266665(L 136-145 mEq/L OINC) Sodium Normal Lvl 138 LAB 27401889(L 3.5-5.1 mEq/L OINC) Normal Potassium Lvl 4.3 LAB 63419155(L 98-107 mEq/L OINC) High Chloride 111 LAB 41919053(L 24.0-30.0 mEq/L OINC) Low CO2 20.9 Performed By: #### [id number] #### DL [employer] [address] [place] [address] EGFR Collected: 12/18/2017 Status: F Source: [facility] 6:05 AM [facility] REPOSITORY Order Comment: Order added by Discern Expert. TYPE CODE TESTS RESULT OUT OF RANGE REFERENCE UNITS LAB 47075086(LO mL/min/1.73 INC) m2 Normal eGFR 35 LAB 65568941(LO mL/min/1.73 INC) m2 Normal eGFR AA 43 Performed By: #### [id number] #### DL [employer] [address] [place], [place] [id number] CBC W/ AUTO DIFF Collected: 12/18/2017 Status: F Source: [facility] 6:05 AM [facility] REPOSITORY TYPE CODE TESTS RESULT OUT OF RANGE REFERENCE UNITS LAB 28462490(L 3.6-11.0 E3/mcL OINC) Normal WBC 4.4 LAB 67898010(L 3.90-5.40 E6/mcL OINC) Low RBC 2.98 LAB 41752226(L 12.0-16.0 G/DL OINC) Low Hgb 8.3 LAB 79116611(L 36.0-48.0 % OINC) Low Hct 24.7 LAB 97155121(L 11.5-14.5 % OINC) High RDW 18.3 LAB 67302719(L 27.0-31.0 pg OINC) Normal MCH 28.0 LAB 81550571(L 33.0-37.0 G/DL OINC) Normal MCHC 33.8 LAB 04444998(L 78.0-100.0 fL OINC) Normal MCV 82.8 LAB 27066896(L 7.4-11.0 fL OINC) Low MPV 7.2 LAB 42090703(L 130-400 E3/mcL OINC) Low Platelet 83 Performed By: #### [id number] #### DL [employer] [facility] [place] [address] MORPH Collected: 12/18/2017 Status: F Source: [facility] 6:05 AM [facility] REPOSITORY Order Comment: Order Added by Discern Expert. TYPE CODE TESTS RESULT OUT OF REFERENCE UNITS RANGE LAB 15746850( LOINC) RBC Morph SEE Normal MORPHOLOGY LAB 43075463( LOINC) Hypochromasia 1+ Normal LAB 81303503( LOINC) Polychromasia 1+ Normal LAB 56864412( LOINC) Anisocytosis 1+ Normal Performed By: #### [id number] #### DL [employer] [facility] [place] [address] ZZPLT MORPH Collected: 12/18/2017 Status: F Source: [facility] 6:05 AM [facility] REPOSITORY TYPE CODE TESTS RESULT OUT OF RANGE REFERENCE UNITS LAB 47083169(L OINC) Normal Platelet DECREASED Estimate LAB 27567462(L OINC) Normal Platelet Morph NORMAL Performed By: #### [id number] #### DL [employer] [address] [place] [address] AUTO DIFF Collected: 12/18/2017 Status: F Source: [facility] 6:05 AM [facility] REPOSITORY Order Comment: Order Added by Discern Expert. TYPE CODE TESTS RESULT OUT OF RANGE REFERENCE UNITS LAB 74869051(L 37.0-75.0 % OINC) Normal Neutro Auto 68.3 LAB 48813289(L 20.0-55.0 % OINC) Low Lymph Auto 15.8 LAB 85701498(L 0.0-10.0 % OINC) Normal Laurel Auto 9.7 LAB 42248911(L 0.0-11.0 % OINC) Normal Eos Auto 5.1 LAB 78802344(L 0.0-2.0 % OINC) Normal Basophil Auto 1.1 LAB 36929345(L 1.4-6.5 E3/mcL OINC) Normal Neutro 3.0 Absolute LAB 90386731(L 1.2-3.4 E3/mcL OINC) Low Lymph Absolute 0.7 LAB 60140753(L 0.0-0.7 E3/mcL OINC) Normal Laurel Absolute 0.4 LAB 70340286(L 0.0-0.7 E3/mcL OINC) Normal Eos Absolute 0.2 LAB 30159757(L 0.0-0.2 E3/mcL OINC) Normal Basophil 0.0 Absolute Performed By: #### [id number] #### DL [employer] [address] [place] [address] GLUCOSE POC Collected: 12/17/2017 Status: F Source: [facility] 9:00 PM [facility] REPOSITORY TYPE CODE TESTS RESULT OUT OF REFERENCE UNITS RANGE LAB 49849802(LO 70-99 mg/dL INC) High Glucose POC 157 Performed By: #### [id number] #### DL POC Subsection [address] [place] [address] GLUCOSE POC Collected: 12/17/2017 Status: F Source: [facility] 4:09 PM [facility] REPOSITORY TYPE CODE TESTS RESULT OUT OF REFERENCE UNITS RANGE LAB 65182947(LO 70-99 mg/dL INC) High Glucose POC 204 Performed By: #### [id number] #### DL POC Subsection [address] [place] [id number] GLUCOSE POC Collected: 12/17/2017 Status: F Source: BUDDHIST 11:39 AM [facility] REPOSITORY TYPE CODE TESTS RESULT OUT OF REFERENCE UNITS RANGE LAB [id number](LO 70-99 mg/dL INC) High Glucose POC 177 Performed By: #### [id number] #### DL POC Subsection [address] [place] [address] GLUCOSE POC Collected: 12/17/2017 Status: F Source: BUDDHIST 7:37 AM [facility] REPOSITORY TYPE CODE TESTS RESULT OUT OF REFERENCE UNITS RANGE LAB [id number](LO 70-99 mg/dL INC) High Glucose POC 122 Performed By: #### [id number] #### DL POC Subsection [address] [place] [address] BMP Collected: 12/17/2017 Status: F Source: BUDDHIST 5:30 AM [facility] REPOSITORY TYPE CODE TESTS RESULT OUT OF RANGE REFERENCE UNITS LAB [id number](L 70-99 mg/dL OINC) High Glucose Lvl 111 LAB [id number](L 7-18 mg/dL OINC) High BUN 25 LAB [id number](LO 0.6-1.3 mg/dL INC) High Creatinine 1.5 LAB [id number](L 5.4-30.0 ratio OINC) Normal BUN/Creat Ratio 16.7 LAB [id number](L 8.4-10.2 mg/dL OINC) Low Calcium Lvl 7.9 LAB [id number](L 136-145 mEq/L OINC) Sodium Normal Lvl 138 LAB [id number](L 3.5-5.1 mEq/L OINC) Normal Potassium Lvl 4.5 LAB [id number](L 98-107 mEq/L OINC) High Chloride 111 LAB [id number](L 24.0-30.0 mEq/L OINC) Low CO2 21.4 Performed By: #### [id number] #### DL [employer] [address] [place] [address] EGFR Collected: 12/17/2017 Status: F Source: BUDDHIST 5:30 AM [facility] REPOSITORY Order Comment: Order added by Discern Expert. TYPE CODE TESTS RESULT OUT OF RANGE REFERENCE UNITS LAB [id number](LO mL/min/1.73 INC) m2 Normal eGFR 35 LAB 38475550(LO mL/min/1.73 INC) m2 Normal eGFR AA 43 Performed By: #### [id number] #### DL [employer] [address] [place] [address] CBC W/ AUTO DIFF Collected: 12/17/2017 Status: F Source: BUDDHIST 5:30 AM [facility] REPOSITORY TYPE CODE TESTS RESULT OUT OF RANGE REFERENCE UNITS LAB [id number](L 3.6-11.0 E3/mcL OINC) Normal WBC 5.1 LAB 51601076(L 3.90-5.40 E6/mcL OINC) Low RBC 3.16 LAB 45280942(L 12.0-16.0 G/DL OINC) Low Hgb 8.9 LAB 33311130(L 36.0-48.0 % OINC) Low Hct 26.0 LAB 92949000(L 11.5-14.5 % OINC) High RDW 18.3 LAB 88939918(L 27.0-31.0 pg OINC) Normal MCH 28.3 LAB 00378501(L 33.0-37.0 G/DL OINC) Normal MCHC 34.3 LAB 82109066(L 78.0-100.0 fL OINC) Normal MCV 82.4 LAB 25284427(L 7.4-11.0 fL OINC) Low MPV 7.1 LAB [id number](L 130-400 E3/mcL OINC) Low Platelet 91 Performed By: #### [id number] #### DL [facility] [place] [id number] MORPH Collected: 12/17/2017 Status: F Source: BUDDHIST 5:30 AM [facility] REPOSITORY Order Comment: Order Added by Discern Expert. TYPE CODE TESTS RESULT OUT OF REFERENCE UNITS RANGE LAB [id number]( LOINC) RBC Morph SEE Normal MORPHOLOGY LAB 47999745( LOINC) Hypochromasia 1+ Normal LAB 20896946( LOINC) Poikilocytosis 1+ Normal LAB 20223116( LOINC) Anisocytosis 2+ Normal Performed By: #### [id number] #### DL [employer] [address] [place], [place] [id number] ZZPLT MORPH Collected: 12/17/2017 Status: F Source: BUDDHIST 5:30 AM [facility] REPOSITORY TYPE CODE TESTS RESULT OUT OF RANGE REFERENCE UNITS LAB 27103141(L OINC) Normal Platelet DECREASED Estimate LAB 93167158(L OINC) Normal Platelet Morph NORMAL Performed By: #### [id number] #### DL [facility] [place] [id number] AUTO DIFF Collected: 12/17/2017 Status: F Source: BUDDHIST 5:30 AM [facility] REPOSITORY Order Comment: Order Added by Discern Expert. TYPE CODE TESTS RESULT OUT OF RANGE REFERENCE UNITS LAB 50889215(L 37.0-75.0 % OINC) Normal Neutro Auto 69.9 LAB 17553279(L 20.0-55.0 % OINC) Low Lymph Auto 14.5 LAB 99043182(L 0.0-10.0 % OINC) Normal Laurel Auto 8.8 LAB 40790811(L 0.0-11.0 % OINC) Normal Eos Auto 5.8 LAB 00371756(L 0.0-2.0 % OINC) Normal Basophil Auto 1.0 LAB 57993130(L 1.4-6.5 E3/mcL OINC) Normal Neutro 3.6 Absolute LAB 15010414(L 1.2-3.4 E3/mcL OINC) Low Lymph Absolute 0.7 LAB 51779829(L 0.0-0.7 E3/mcL OINC) Normal Laurel Absolute 0.5 LAB 77133997(L 0.0-0.7 E3/mcL OINC) Normal Eos Absolute 0.3 LAB 40438223(L 0.0-0.2 E3/mcL OINC) Normal Basophil 0.1 Absolute Performed By: #### [id number] #### DL [employer] [address] [place] [address] GLUCOSE POC Collected: 12/16/2017 Status: F Source: BUDDHIST 8:23 PM [facility] REPOSITORY TYPE CODE TESTS RESULT OUT OF REFERENCE UNITS RANGE LAB 57301430(LO 70-99 mg/dL INC) High Glucose POC 234 Performed By: #### [id number] #### DL POC Subsection [address] [place] [address] GLUCOSE POC Collected: 12/16/2017 Status: F Source: BUDDHIST 4:31 PM [facility] REPOSITORY TYPE CODE TESTS RESULT OUT OF REFERENCE UNITS RANGE LAB 51495575(LO 70-99 mg/dL INC) High Glucose POC 172 Performed By: #### [id number] #### DL POC Subsection [address] [place], [place] [id number] PATRICIA TEST Collected: 12/16/2017 Status: F Source: BUDDHIST 3:20 PM [facility] REPOSITORY TYPE CODE TESTS RESULT OUT OF RANGE REFERENCE UNITS LAB [id number](LO Negative INC) Normal PATRICIA Negative Test Performed By: #### [id number] #### DL Misc Micro SubSection , VANCO TROUGH Collected: 12/16/2017 Status: F Source: BUDDHIST 12:43 PM [facility] REPOSITORY TYPE CODE TESTS RESULT OUT OF RANGE REFERENCE UNITS LAB [id number](LO 15.0-20.0 microgram/m INC) L Normal Vanco Tr 18.9 Result Comment: Guidelines taken from the August 2008 [facility] report: It is recommended that therapeutic monitoring of vancomycin in adult patients be done using the TROUGH serum vancomycin concentration. It is the MOST ACCURATE and practical method for monitoring efficacy. DESIRED CONC: TROUGH 15-20 ug/ml CRITICAL >30 UG/ML Performed By: #### [id number] #### DL [facility] [address] [place] [address] GLUCOSE POC Collected: 12/16/2017 Status: F Source: BUDDHIST 12:22 PM [facility] REPOSITORY TYPE CODE TESTS RESULT OUT OF REFERENCE UNITS RANGE LAB 30446460(LO 70-99 mg/dL INC) High Glucose POC 145 Performed By: #### [id number] #### DL POC Subsection [address] [place] [address] MRI ANKLE W/O Observed: 12/16/2017 Status: F Source: BUDDHIST CONTRAST LEFT 11:00 AM [facility] REPOSITORY Exam Date/Time: 12/16/2017 12:01 EDT Reason for Exam: Cellulitis Report MRI Ankle w/o Contrast Left CLINICAL STATEMENT: Left ankle pain with swelling and erythema. Cat bite 2 weeks ago. TECHNIQUE: Multiplanar, multisequence MRI of the left ankle was performed without contrast. This included coronal T1, coronal T2 fat- sat, coronal T2, axial STIR, axial T1, axial PD, sagittal T1, and sagittal STIR imaging. COMPARISON: CT 12/15/2017. X-rays 12/08/2017. FINDINGS: No talar dome or osteochondral lesion is seen. Study is somewhat motion degraded. There is marginal spur at the talonavicular joint. No stress reaction or fracture is identified. Tarsometatarsal alignment appears preserved on this nonweightbearing study. Interosseous component of the Lisfranc ligament is identified and is intact. Minor cystic change in the medial cuneiform bone. There is soft tissue swelling and edema in the subcutaneous fat along the dorsum of the foot and circumferentially about the ankle though greater laterally. There is a partially circumscribed fluid collection along the lateral margin of the extensor digitorum longus myotendinous junction at the anterolateral ankle measuring 2.8 x 1.1 x 5.9 cm, AP by transverse by craniocaudal dimension. This does not encircle the tendon and is unlikely correlates with tenosynovitis. This may correlate with an abscess. Evaluation of the soft tissues is limited without contrast. Achilles tendon is intact. Small enthesophyte at the insertion. Plantar calcaneal spur is noted. No fascial tear is identified. There is nonspecific edema involving the muscles of the foot and lower leg. No intramuscular fluid collection is identified. Flexor and extensor tendons are intact. Split tear of the peroneus brevis tendon begins near the tip of the lateral malleolus and extends approximately 1.6 cm distally. Peroneus longus tendon is intact. No tenosynovitis is seen. No mass lesion in the tarsal tunnel is identified. The ATFL, calcaneofibular, and posterior talofibular ligaments appear preserved. Deep and superficial fibers of the deltoid ligament are grossly preserved. Superior medial band of the spring ligament is grossly preserved. The anterior and posterior tibiofibular ligaments appear grossly maintained. Exam Date/Time: 12/16/2017 12:01 EDT Report IMPRESSION: 1. There is soft tissue swelling and edema along the ankle and foot which may correlate with cellulitis, given the clinical scenario. 2. There is a fluid collection along the anterolateral aspect of the ankle adjacent to the extensor digitorum longus myotendinous junction measuring 2.8 x 1.1 x 5.9 cm, which may correlate with an abscess. 3. No MR signs of osteomyelitis. No acute fracture. 4. Short segment split tear of the peroneus brevis tendon near the tip of the lateral malleolus extending 1.6 cm. 5. No acute ligamentous injury identified. FINAL REPORT Dictated: 12/16/2017 1:49 pm Blair Cantor DO Signed (Electronic Signature): 12/16/2017 1:49 pm Signed by: Blair Cantor DO Technologist: ZENAIDA GLUCOSE POC Collected: 12/16/2017 Status: F Source: BUDDHIST 7:23 AM [facility] REPOSITORY TYPE CODE TESTS RESULT OUT OF REFERENCE UNITS RANGE LAB 52393062(LO 70-99 mg/dL INC) High Glucose POC 160 Performed By: #### [id number] #### DL POC Subsection [address] [place] [address] BMP Collected: 12/16/2017 Status: F Source: BUDDHIST 5:30 AM [facility] REPOSITORY TYPE CODE TESTS RESULT OUT OF RANGE REFERENCE UNITS LAB [id number](L 70-99 mg/dL OINC) High Glucose Lvl 132 LAB 06663346(L 7-18 mg/dL OINC) High BUN 27 LAB 7468099(LO 0.6-1.3 mg/dL INC) High Creatinine 1.7 LAB 32841949(L 5.4-30.0 ratio OINC) Normal BUN/Creat Ratio 15.9 LAB 99675240(L 8.4-10.2 mg/dL OINC) Low Calcium Lvl 7.7 LAB 53645321(L 136-145 mEq/L OINC) Low Sodium Lvl 133 LAB 03729091(L 3.5-5.1 mEq/L OINC) Normal Potassium Lvl 4.0 LAB 17268254(L 98-107 mEq/L OINC) Chloride Normal 107 LAB [id number](L 24.0-30.0 mEq/L OINC) Low CO2 19.6 Performed By: #### [id number] #### DL [facility] [address] [place] [address] EGFR Collected: 12/16/2017 Status: F Source: BUDDHIST 5:30 AM [facility] REPOSITORY Order Comment: Order added by Discern Expert. TYPE CODE TESTS RESULT OUT OF RANGE REFERENCE UNITS LAB 94429306(LO mL/min/1.73 INC) m2 Normal eGFR 30 LAB 92560119(LO mL/min/1.73 INC) m2 Normal eGFR AA 37 Performed By: #### [id number] #### DL [facility] [address] [place] [address] CBC W/ AUTO DIFF Collected: 12/16/2017 Status: F Source: BUDDHIST 5:30 AM [facility] REPOSITORY TYPE CODE TESTS RESULT OUT OF RANGE REFERENCE UNITS LAB [id number](L 3.6-11.0 E3/mcL OINC) Normal WBC 4.2 LAB 85923689(L 3.90-5.40 E6/mcL OINC) Low RBC 2.91 LAB 27504125(L 12.0-16.0 G/DL OINC) Low Hgb 8.2 LAB 00112723(L 36.0-48.0 % OINC) Low Hct 24.1 LAB 46358325(L 11.5-14.5 % OINC) High RDW 18.4 LAB 98682505(L 27.0-31.0 pg OINC) Normal MCH 28.3 LAB 57544363(L 33.0-37.0 G/DL OINC) Normal MCHC 34.2 LAB 12089590(L 78.0-100.0 fL OINC) Normal MCV 82.8 LAB 94809721(L 7.4-11.0 fL OINC) Low MPV 7.3 LAB 99675900(L 130-400 E3/mcL OINC) Low Platelet 78 Performed By: #### [id number] #### DL [facility] [address] [place] [address] MORPH Collected: 12/16/2017 Status: F Source: BUDDHIST 5:30 AM [facility] REPOSITORY Order Comment: Order Added by Discern Expert. TYPE CODE TESTS RESULT OUT OF REFERENCE UNITS RANGE LAB 45389739( LOINC) RBC Morph SEE Normal MORPHOLOGY LAB 86720676( LOINC) Hypochromasia 1+ Normal LAB 43530043( LOINC) Poikilocytosis 1+ Normal LAB 68651807( LOINC) Anisocytosis 1+ Normal Performed By: #### [id number] #### DL [facility] [address] [place] [address] ZZPLT MORPH Collected: 12/16/2017 Status: F Source: BUDDHIST 5:30 AM [facility] REPOSITORY TYPE CODE TESTS RESULT OUT OF RANGE REFERENCE UNITS LAB 73495323(L OINC) Normal Platelet DECREASED Estimate LAB 59536114(L OINC) Normal Platelet Morph NORMAL Performed By: #### [id number] #### DL [facility] [address] [place], [place] [id number] AUTO DIFF Collected: 12/16/2017 Status: F Source: BUDDHIST 5:30 AM [facility] REPOSITORY Order Comment: Order Added by Discern Expert. TYPE CODE TESTS RESULT OUT OF RANGE REFERENCE UNITS LAB 29535747(L 37.0-75.0 % OINC) Normal Neutro Auto 67.5 LAB 67156129(L 20.0-55.0 % OINC) Low Lymph Auto 14.9 LAB 94957961(L 0.0-10.0 % OINC) High Laurel Auto 10.4 LAB 51217903(L 0.0-11.0 % OINC) Normal Eos Auto 6.1 LAB 53944730(L 0.0-2.0 % OINC) Normal Basophil Auto 1.1 LAB 44988578(L 1.4-6.5 E3/mcL OINC) Normal Neutro 2.8 Absolute LAB 85099573(L 1.2-3.4 E3/mcL OINC) Low Lymph Absolute 0.6 LAB 67509932(L 0.0-0.7 E3/mcL OINC) Normal Laurel Absolute 0.4 LAB 54716386(L 0.0-0.7 E3/mcL OINC) Normal Eos Absolute 0.3 LAB 46258501(L 0.0-0.2 E3/mcL OINC) Normal Basophil 0.0 Absolute Performed By: #### [id number] #### DL [facility] [address] [place] [address] GLUCOSE POC Collected: 12/15/2017 Status: F Source: BUDDHIST 8:38 PM [facility] REPOSITORY TYPE CODE TESTS RESULT OUT OF REFERENCE UNITS RANGE LAB 33656758(LO 70-99 mg/dL INC) High Glucose POC 232 Performed By: #### [id number] #### DL POC Subsection [address] [place] [address] PT Collected: 12/15/2017 Status: F Source: BUDDHIST 5:55 PM [facility] REPOSITORY TYPE CODE TESTS RESULT OUT OF RANGE REFERENCE UNITS LAB [id number](LO 1.0-1.2 INC) High INR 1.5 Result Comment: INR Recommended Therapeuptic Ranges: Prophylaxis/treatment of DVT and PE?2.0-3.0 Prevention of systemic embolism?.2.0-3.0 Mechanical prosthetic values?2.5-3.5 CRITICAL VALUES?.>4.0 LAB [id number](LOINC) 11.6-14.6 second(s) High PT 17.0 Performed By: #### [id number] #### DL Hematology Automated Subsection [address] [place] [address] GLUCOSE POC Collected: 12/15/2017 Status: F Source: BUDDHIST 4:02 PM [facility] REPOSITORY TYPE CODE TESTS RESULT OUT OF REFERENCE UNITS RANGE LAB 45026538(LO 70-99 mg/dL INC) High Glucose POC 311 Performed By: #### [id number] #### DL POC Subsection [address] [place] [address] GLUCOSE POC Collected: 12/15/2017 Status: F Source: BUDDHIST 11:[address] [facility] REPOSITORY TYPE CODE TESTS RESULT OUT OF REFERENCE UNITS RANGE LAB 06582224(LO 70-99 mg/dL INC) High Glucose POC 300 Performed By: #### [id number] #### DL POC Subsection [address] [place] [address] CT ANKLE W/O CONTRAST Observed: 12/15/2017 Status: F Source: BUDDHIST [facility] 10:01 AM [facility] REPOSITORY Exam Date/Time: 12/15/2017 10:15 EDT Reason for Exam: Cat bite cellulitis not improving, r/o joint/ tendon involvment/ abscess/ air;Other (please specify) Report EXAM: CT LEFT ANKLE WITHOUT CONTRAST 12/15/2017. HISTORY: Pain and swelling in the ankle from a cat bite to the left ankle 1 week ago. TECHNIQUE: 2 mm thick axial images were obtained through the left ankle without contrast. 2-D reconstructive images were created in the coronal and sagittal planes. Dose reduction techniques were achieved by using automated exposure control and/or adjustment of mA and/or kV according to patient size and/or use of iterative reconstruction technique. FINDINGS: There is moderate subcutaneous edema and soft tissue swelling involving the distal calf and ankle more pronounced anteriorly and laterally extending into the dorsal aspect of the foot. There is mild associated skin thickening with findings suspicious for cellulitis. Correlation for the clinical extent of cellulitis would be helpful. No well-defined fluid collection is identified on this noncontrast CT to suggest a well-defined abscess. No soft tissue gas is identified. MRI would be more sensitive than CT for evaluation for muscle edema, myositis, and deep fasciitis. No acute bony abnormality is identified involving the left ankle. There is no acute or healing fracture. There is no radiographic evidence of osteomyelitis. There is no OCD lesion involving the talar dome. A moderate to large plantar calcaneal spur is present. There is relative preservation of the joint spaces. MRI is more sensitive than CT for evaluation of the soft tissues and tendinous and ligamentous structures. No gross tendon tear is identified. IMPRESSION: 1. There is moderate subcutaneous edema and soft tissue swelling involving the distal calf and ankle more pronounced anteriorly and laterally tracking into the dorsal aspect of the foot with skin thickening and findings suspicious for cellulitis. Correlation for the clinical extent of cellulitis would be helpful. 2. No well-defined fluid collection to suggest a focal abscess. 3. No acute bony abnormality. Exam Date/Time: 12/15/2017 10:15 EDT Report 4. MRI would be more sensitive than CT for evaluation for muscle edema, myositis, and deep fasciitis. There is no soft tissue gas. FINAL REPORT Dictated: 12/15/2017 12:02 pm Aaron Becker MD Signed (Electronic Signature): 12/15/2017 12:02 pm Signed by: Aaron Becker MD Technologist: TRD GLUCOSE POC Collected: 12/15/2017 Status: F Source: BUDDHIST 7:47 AM [facility] REPOSITORY TYPE CODE TESTS RESULT OUT OF REFERENCE UNITS RANGE LAB [id number](LO 70-99 mg/dL INC) High Glucose POC 173 Performed By: #### [id number] #### DL POC [address] Collected: 12/15/2017 Status: F Source: BUDDHIST 5:36 AM [facility] REPOSITORY TYPE CODE TESTS RESULT OUT OF RANGE REFERENCE UNITS LAB 87516901(L 70-99 mg/dL OINC) High Glucose Lvl 175 LAB 09686287(L 7-18 mg/dL OINC) High BUN 30 LAB 3438344(LO 0.6-1.3 mg/dL INC) High Creatinine 1.7 LAB 86020866(L 5.4-30.0 ratio OINC) Normal BUN/Creat Ratio 17.6 LAB 42871271(L 8.4-10.2 mg/dL OINC) Low Calcium Lvl 7.4 LAB 19086637(L 136-145 mEq/L OINC) Low Sodium Lvl 133 LAB 11024487(L 3.5-5.1 mEq/L OINC) Normal Potassium Lvl 4.3 LAB 52651704(L 98-107 mEq/L OINC) Chloride Normal 106 LAB 21751093(L 24.0-30.0 mEq/L OINC) Low CO2 20.6 Performed By: #### [id number] #### DL [employer] [address] [place] [address] EGFR Collected: 12/15/2017 Status: F Source: BUDDHIST 5:36 AM [facility] REPOSITORY Order Comment: Order added by Discern Expert. TYPE CODE TESTS RESULT OUT OF RANGE REFERENCE UNITS LAB 30118654(LO mL/min/1.73 INC) m2 Normal eGFR 30 LAB 79254141(LO mL/min/1.73 INC) m2 Normal eGFR AA 37 Performed By: #### [id number] #### DL [employer] [address] [place], [place] [id number] CBC W/ AUTO DIFF Collected: 12/15/2017 Status: F Source: BUDDHIST 5:36 AM [facility] REPOSITORY TYPE CODE TESTS RESULT OUT OF RANGE REFERENCE UNITS LAB 58789616(L 3.6-11.0 E3/mcL OINC) Normal WBC 5.0 LAB 07483961(L 3.90-5.40 E6/mcL OINC) Low RBC 2.95 LAB 26428626(L 12.0-16.0 G/DL OINC) Low Hgb 8.2 LAB 04941578(L 36.0-48.0 % OINC) Low Hct 24.4 LAB 64169834(L 11.5-14.5 % OINC) High RDW 18.6 LAB 25117458(L 27.0-31.0 pg OINC) Normal MCH 27.9 LAB 37279207(L 33.0-37.0 G/DL OINC) Normal MCHC 33.8 LAB 18979971(L 78.0-100.0 fL OINC) Normal MCV 82.5 LAB 32720948(L 7.4-11.0 fL OINC) Low MPV 7.2 LAB 20822944(L 130-400 E3/mcL OINC) Low Platelet 75 Performed By: #### [id number] #### DL [facility] [address] [place] [address] MORPH Collected: 12/15/2017 Status: F Source: BUDDHIST 5:36 AM [facility] REPOSITORY Order Comment: Order Added by Discern Expert. TYPE CODE TESTS RESULT OUT OF REFERENCE UNITS RANGE LAB 10237841( LOINC) RBC Morph SEE Normal MORPHOLOGY LAB 10165021( LOINC) 1+ Normal Anisocytosis LAB 96932687( LOINC) Ovalocytes 1+ Normal Performed By: #### [id number] #### DL [facility] [address] [place] [address] ZZPLT MORPH Collected: 12/15/2017 Status: F Source: BUDDHIST 5:36 AM [facility] REPOSITORY TYPE CODE TESTS RESULT OUT OF RANGE REFERENCE UNITS LAB 54774911(L OINC) Normal Platelet DECREASED Estimate LAB 97440813(L OINC) Normal Platelet Morph NORMAL Performed By: #### [id number] #### DL [facility] [address] [place] [address] AUTO DIFF Collected: 12/15/2017 Status: F Source: BUDDHIST 5:36 AM [facility] REPOSITORY Order Comment: Order Added by Discern Expert. TYPE CODE TESTS RESULT OUT OF RANGE REFERENCE UNITS LAB 84437569(L 37.0-75.0 % OINC) Normal Neutro Auto 70.7 LAB 75990560(L 20.0-55.0 % OINC) Low Lymph Auto 15.0 LAB 16278731(L 0.0-10.0 % OINC) Normal Laurel Auto 9.8 LAB 29816220(L 0.0-11.0 % OINC) Normal Eos Auto 3.7 LAB 10483820(L 0.0-2.0 % OINC) Normal Basophil Auto 0.8 LAB 80284387(L 1.4-6.5 E3/mcL OINC) Normal Neutro 3.6 Absolute LAB 16406615(L 1.2-3.4 E3/mcL OINC) Low Lymph Absolute 0.8 LAB 18831385(L 0.0-0.7 E3/mcL OINC) Normal Laurel Absolute 0.5 LAB 58431427(L 0.0-0.7 E3/mcL OINC) Normal Eos Absolute 0.2 LAB 73106805(L 0.0-0.2 E3/mcL OINC) Normal Basophil 0.0 Absolute Performed By: #### [id number] #### DL [facility] [address] [place] [address] GLUCOSE POC Collected: 12/14/2017 Status: F Source: BUDDHIST 8:41 PM [facility] REPOSITORY TYPE CODE TESTS RESULT OUT OF REFERENCE UNITS RANGE LAB 94366511(LO 70-99 mg/dL INC) High Glucose POC 300 Performed By: #### [id number] #### DL POC Subsection [address] [place] [address] IFOB OCCULT BLOOD Collected: 12/14/2017 Status: F Source: BUDDHIST 6:07 PM [facility] REPOSITORY TYPE CODE TESTS RESULT OUT OF RANGE REFERENCE UNITS LAB 600527385( LOINC) Abnormal Occult Positive Blood iFOB LAB CD:9557940 601(LOINC) Normal Occult Positive Bld iFOB Int Ctl Performed By: #### [id number] #### DL Misc Micro SubSection , GLUCOSE POC Collected: 12/14/2017 Status: F Source: BUDDHIST 4:44 PM [facility] REPOSITORY TYPE CODE TESTS RESULT OUT OF REFERENCE UNITS RANGE LAB 71210820(LO 70-99 mg/dL INC) High Glucose POC 292 Performed By: #### [id number] #### DL POC Subsection [address] [place] [address] HCT & HGB Collected: 12/14/2017 Status: F Source: BUDDHIST 3:45 PM [facility] REPOSITORY TYPE CODE TESTS RESULT OUT OF RANGE REFERENCE UNITS LAB 92152132(LO 12.0-16.0 G/DL INC) Low Hgb 8.7 LAB 93747134(LO 36.0-48.0 % INC) Low Hct 25.5 Performed By: #### [id number] #### DL [facility] [address] [place] [id number] GLUCOSE POC Collected: 12/14/2017 Status: F Source: BUDDHIST 11:01 AM [facility] REPOSITORY TYPE CODE TESTS RESULT OUT OF REFERENCE UNITS RANGE LAB 70767893(LO 70-99 mg/dL INC) High Glucose POC 328 Performed By: #### [id number] #### DL POC Subsection [facility] [place] [id number] GLUCOSE POC Collected: 12/14/2017 Status: F Source: BUDDHIST 7:22 AM [facility] REPOSITORY TYPE CODE TESTS RESULT OUT OF REFERENCE UNITS RANGE LAB 35685534(LO 70-99 mg/dL INC) High Glucose POC 164 Performed By: #### [id number] #### DL POC Subsection [facility] [place] [address] BMP Collected: 12/14/2017 Status: F Source: BUDDHIST 5:56 AM [facility] REPOSITORY TYPE CODE TESTS RESULT OUT OF RANGE REFERENCE UNITS LAB 50635156(L 70-99 mg/dL OINC) High Glucose Lvl 149 LAB 06691519(L 7-18 mg/dL OINC) High BUN 32 LAB 7137828(LO 0.6-1.3 mg/dL INC) High Creatinine 1.6 LAB 48523188(L 5.4-30.0 ratio OINC) Normal BUN/Creat Ratio 20.0 LAB 92872108(L 8.4-10.2 mg/dL OINC) Low Calcium Lvl 7.0 LAB 62283433(L 136-145 mEq/L OINC) Low Sodium Lvl 129 LAB 26326983(L 3.5-5.1 mEq/L OINC) Normal Potassium Lvl 3.9 LAB 65262018(L 98-107 mEq/L OINC) Chloride Normal 105 LAB 43768873(L 24.0-30.0 mEq/L OINC) Low CO2 18.4 Performed By: #### [id number] #### DL [facility] [facility] [place] [id number] EGFR Collected: 12/14/2017 Status: F Source: BUDDHIST 5:56 AM [facility] REPOSITORY Order Comment: Order added by Discern Expert. TYPE CODE TESTS RESULT OUT OF RANGE REFERENCE UNITS LAB 82740579(LO mL/min/1.73 INC) m2 Normal eGFR 33 LAB 54985380(LO mL/min/1.73 INC) m2 Normal eGFR AA 39 Performed By: #### [id number] #### DL [employer] [address] [place] [address] CBC W/ AUTO DIFF Collected: 12/14/2017 Status: F Source: BUDDHIST 5:56 AM [facility] REPOSITORY TYPE CODE TESTS RESULT OUT OF RANGE REFERENCE UNITS LAB 26977965(L 3.6-11.0 E3/mcL OINC) Normal WBC 4.4 LAB 49950746(L 3.90-5.40 E6/mcL OINC) Low RBC 2.86 LAB 23148431(L 12.0-16.0 G/DL OINC) Low Hgb 8.1 LAB 27926206(L 36.0-48.0 % OINC) Low Hct 23.8 LAB 09610864(L 11.5-14.5 % OINC) High RDW 18.4 LAB 62058161(L 27.0-31.0 pg OINC) Normal MCH 28.2 LAB 39620750(L 33.0-37.0 G/DL OINC) Normal MCHC 33.9 LAB 53066962(L 78.0-100.0 fL OINC) Normal MCV 83.3 LAB 16029587(L 7.4-11.0 fL OINC) Normal MPV 7.8 LAB 50327756(L 130-400 E3/mcL OINC) Low Platelet 73 Performed By: #### [id number] #### DL [facility] [address] [place] [address] MORPH Collected: 12/14/2017 Status: F Source: BUDDHIST 5:56 AM [facility] REPOSITORY Order Comment: Order Added by Discern Expert. TYPE CODE TESTS RESULT OUT OF REFERENCE UNITS RANGE LAB 52579828( LOINC) RBC Morph SEE Normal MORPHOLOGY LAB 24828604( LOINC) Hypochromasia 1+ Normal LAB [id number]( LOINC) Anisocytosis 1+ Normal Performed By: #### [id number] #### DL [employer] [address] [place] [address] ZZPLT MORPH Collected: 12/14/2017 Status: F Source: BUDDHIST 5:56 AM [facility] REPOSITORY TYPE CODE TESTS RESULT OUT OF RANGE REFERENCE UNITS LAB 79379211(L OINC) Normal Platelet DECREASED Estimate LAB 42260679(L OINC) Normal Platelet Morph NORMAL Performed By: #### [id number] #### DL [employer] [facility] [place] [address] AUTO DIFF Collected: 12/14/2017 Status: F Source: BUDDHIST 5:56 AM [facility] REPOSITORY Order Comment: Order Added by Discern Expert. TYPE CODE TESTS RESULT OUT OF RANGE REFERENCE UNITS LAB [id number](L 37.0-75.0 % OINC) Normal Neutro Auto 64.6 LAB 91767808(L 20.0-55.0 % OINC) Low Lymph Auto 16.4 LAB 68081308(L 0.0-10.0 % OINC) High Laurel Auto 13.3 LAB 67763613(L 0.0-11.0 % OINC) Normal Eos Auto 4.6 LAB 39578571(L 0.0-2.0 % OINC) Normal Basophil Auto 1.1 LAB 80712632(L 1.4-6.5 E3/mcL OINC) Normal Neutro 2.8 Absolute LAB 30932664(L 1.2-3.4 E3/mcL OINC) Low Lymph Absolute 0.7 LAB 19751751(L 0.0-0.7 E3/mcL OINC) Normal Laurel Absolute 0.6 LAB 79321534(L 0.0-0.7 E3/mcL OINC) Normal Eos Absolute 0.2 LAB 90776626(L 0.0-0.2 E3/mcL OINC) Normal Basophil 0.0 Absolute Performed By: #### [id number] #### DL Rem[employer] [address] [place], [place] [id number] GLUCOSE POC Collected: 12/13/2017 Status: F Source: BUDDHIST 8:18 PM [facility] REPOSITORY TYPE CODE TESTS RESULT OUT OF REFERENCE UNITS RANGE LAB 56157776(LO 70-99 mg/dL INC) High Glucose POC 277 Performed By: #### [id number] #### DL POC Subsection [facility] [place] [id number] GLUCOSE POC Collected: 12/13/2017 Status: F Source: BUDDHIST 4:51 PM [facility] REPOSITORY TYPE CODE TESTS RESULT OUT OF REFERENCE UNITS RANGE LAB 11146058(LO 70-99 mg/dL INC) High Glucose POC 247 Performed By: #### [id number] #### DL POC Subsection [address] [place] [address] GLUCOSE POC Collected: 12/13/2017 Status: F Source: BUDDHIST 11:37 AM [facility] REPOSITORY TYPE CODE TESTS RESULT OUT OF REFERENCE UNITS RANGE LAB 44485579(LO 70-99 mg/dL INC) High Glucose POC 300 Performed By: #### [id number] #### DL POC Subsection [address] [place] [address] ABO/RH ECHO Collected: 12/13/2017 Status: F Source: BUDDHIST 9:43 AM [facility] REPOSITORY TYPE CODE TESTS RESULT OUT OF RANGE REFERENCE UNITS LAB 10078789(LO INC) ABO/Rh E O POS Interp... Performed By: #### [id number] #### DL Blood Bank Subsection [address] [place] [address] ANTIBODY SCREEN Collected: 12/13/2017 Status: F Source: BUDDHIST CAP... 9:43 AM [facility] REPOSITORY TYPE CODE TESTS RESULT OUT OF RANGE REFERENCE UNITS LAB 79861631(L OINC) Normal Screen Negative Interp... Performed By: #### [id number] #### DL Blood Bank Subsection [address] [place] [address] RCO Collected: 12/13/2017 Status: F Source: BUDDHIST 9:06 AM [facility] REPOSITORY TYPE CODE TESTS RESULT OUT OF RANGE REFERENCE UNITS LAB 79155081(L OINC) Normal Product Type None Required Performed By: #### [id number] #### DL Blood Bank Subsection [address] [place] [address] GLUCOSE POC Collected: 12/13/2017 Status: F Source: BUDDHIST 7:24 AM [facility] REPOSITORY TYPE CODE TESTS RESULT OUT OF REFERENCE UNITS RANGE LAB 40537200(LO 70-99 mg/dL INC) High Glucose POC 206 Performed By: #### [id number] #### DL POC Subsection [address] [place] [address] BMP Collected: 12/13/2017 Status: F Source: BUDDHIST 5:17 AM [facility] REPOSITORY TYPE CODE TESTS RESULT OUT OF RANGE REFERENCE UNITS LAB 20237814(L 70-99 mg/dL OINC) High Glucose Lvl 179 LAB 62609579(L 7-18 mg/dL OINC) High BUN 33 LAB 7057453(LO 0.6-1.3 mg/dL INC) High Creatinine 1.5 LAB 94826775(L 5.4-30.0 ratio OINC) Normal BUN/Creat Ratio 22.0 LAB 59402940(L 8.4-10.2 mg/dL OINC) Low Calcium Lvl 7.2 LAB 31373342(L 136-145 mEq/L OINC) Low Sodium Lvl 135 LAB 41080057(L 3.5-5.1 mEq/L OINC) Normal Potassium Lvl 4.2 LAB 30112997(L 98-107 mEq/L OINC) High Chloride 110 LAB 60160058(L 24.0-30.0 mEq/L OINC) Low CO2 19.5 Performed By: #### [id number] #### DL [employer] [facility] [place] [address] EGFR Collected: 12/13/2017 Status: F Source: BUDDHIST 5:17 AM [facility] REPOSITORY Order Comment: Order added by Discern Expert. TYPE CODE TESTS RESULT OUT OF RANGE REFERENCE UNITS LAB 09924862(LO mL/min/1.73 INC) m2 Normal eGFR 35 LAB 99986471(LO mL/min/1.73 INC) m2 Normal eGFR AA 43 Performed By: #### [id number] #### DL [employer] [facility] [place] [address] CBC W/ AUTO DIFF Collected: 12/13/2017 Status: F Source: BUDDHIST 5:17 AM [facility] REPOSITORY TYPE CODE TESTS RESULT OUT OF RANGE REFERENCE UNITS LAB 18690638(L 3.6-11.0 E3/mcL OINC) Normal WBC 3.7 LAB 68096472(L 3.90-5.40 E6/mcL OINC) Low RBC 2.55 LAB 62818944(L 12.0-16.0 G/DL OINC) Low Hgb 7.3 LAB 65581504(L 36.0-48.0 % OINC) Low Hct 21.6 LAB 28812010(L 11.5-14.5 % OINC) High RDW 18.5 LAB 62001966(L 27.0-31.0 pg OINC) Normal MCH 28.5 LAB 91863716(L 33.0-37.0 G/DL OINC) Normal MCHC 33.8 LAB 70920811(L 78.0-100.0 fL OINC) Normal MCV 84.5 LAB 40674492(L 7.4-11.0 fL OINC) Normal MPV 7.5 LAB 04599370(L 130-400 E3/mcL OINC) Low Platelet 58 Performed By: #### [id number] #### DL [facility]emo [address] [place] [address] MORPH Collected: 12/13/2017 Status: F Source: BUDDHIST 5:17 AM [facility] REPOSITORY Order Comment: Order Added by Discern Expert. TYPE CODE TESTS RESULT OUT OF REFERENCE UNITS RANGE LAB 92009545( LOINC) RBC Morph SEE Normal MORPHOLOGY LAB 14293547( LOINC) 1+ Normal Anisocytosis Performed By: #### [id number] #### DL Rem[facility]emo [facility] [place] [address] ZZPLT MORPH Collected: 12/13/2017 Status: F Source: BUDDHIST 5:17 AM [facility] REPOSITORY TYPE CODE TESTS RESULT OUT OF RANGE REFERENCE UNITS LAB 75684120(L OINC) Normal Platelet DECREASED Estimate LAB 91143278(L OINC) Normal Platelet Morph NORMAL Performed By: #### [id number] #### DL [facility]emo [facility] [place] [address] AUTO DIFF Collected: 12/13/2017 Status: F Source: BUDDHIST 5:17 AM [facility] REPOSITORY Order Comment: Order Added by Discern Expert. TYPE CODE TESTS RESULT OUT OF RANGE REFERENCE UNITS LAB 00511497(L 37.0-75.0 % OINC) Normal Neutro Auto 67.3 LAB 68515479(L 20.0-55.0 % OINC) Low Lymph Auto 15.3 LAB 76693605(L 0.0-10.0 % OINC) High Laurel Auto 13.2 LAB 94989078(L 0.0-11.0 % OINC) Normal Eos Auto 3.7 LAB 19247310(L 0.0-2.0 % OINC) Normal Basophil Auto 0.5 LAB 18200975(L 1.4-6.5 E3/mcL OINC) Normal Neutro 2.5 Absolute LAB 90076801(L 1.2-3.4 E3/mcL OINC) Low Lymph Absolute 0.6 LAB 01023717(L 0.0-0.7 E3/mcL OINC) Normal Laurel Absolute 0.5 LAB 62414677(L 0.0-0.7 E3/mcL OINC) Normal Eos Absolute 0.1 LAB 99096893(L 0.0-0.2 E3/mcL OINC) Normal Basophil 0.0 Absolute Performed By: #### [id number] #### DL Rem[facility]emo [address] [place] [address] GLUCOSE POC Collected: 12/12/2017 Status: F Source: BUDDHIST 8:54 PM [facility] REPOSITORY TYPE CODE TESTS RESULT OUT OF REFERENCE UNITS RANGE LAB 00387694(LO 70-99 mg/dL INC) High Glucose POC 217 Performed By: #### [id number] #### DL POC Subsection [address] [place] [address] GLUCOSE POC Collected: 12/12/2017 Status: F Source: BUDDHIST 4:40 PM [facility] REPOSITORY TYPE CODE TESTS RESULT OUT OF REFERENCE UNITS RANGE LAB 36509848(LO 70-99 mg/dL INC) High Glucose POC 232 Performed By: #### [id number] #### DL POC Subsection [address] [place] [address] HCT & HGB Collected: 12/12/2017 Status: F Source: BUDDHIST 12:47 PM [facility] REPOSITORY TYPE CODE TESTS RESULT OUT OF RANGE REFERENCE UNITS LAB 49773123(LO 12.0-16.0 G/DL INC) Low Hgb 8.2 LAB 76268427(LO 36.0-48.0 % INC) Low Hct 24.4 Performed By: #### [id number] #### DL Rem[facility]emo [address] [place] [address] GLUCOSE POC Collected: 12/12/2017 Status: F Source: BUDDHIST 11:39 AM [facility] REPOSITORY TYPE CODE TESTS RESULT OUT OF REFERENCE UNITS RANGE LAB 92179953(LO 70-99 mg/dL INC) High Glucose POC 311 Performed By: #### [id number] #### DL POC Subsection [address] [place] [address] GLUCOSE POC Collected: 12/12/2017 Status: F Source: BUDDHIST 7:13 AM [facility] REPOSITORY TYPE CODE TESTS RESULT OUT OF REFERENCE UNITS RANGE LAB 86076568(LO 70-99 mg/dL INC) High Glucose POC 190 Performed By: #### [id number] #### DL POC Subsection [address] [place] [id number] BMP Collected: 12/12/2017 Status: F Source: BUDDHIST 6:16 AM [facility] REPOSITORY TYPE CODE TESTS RESULT OUT OF RANGE REFERENCE UNITS LAB 01099206(L 70-99 mg/dL OINC) High Glucose Lvl 162 LAB 31923201(L 7-18 mg/dL OINC) High BUN 33 LAB 3479312(LO 0.6-1.3 mg/dL INC) High Creatinine 1.6 LAB 77101347(L 5.4-30.0 ratio OINC) Normal BUN/Creat Ratio 20.6 LAB 44739729(L 8.4-10.2 mg/dL OINC) Low Calcium Lvl 7.3 LAB 41375980(L 136-145 mEq/L OINC) Sodium Normal Lvl 142 LAB 54693969(L 3.5-5.1 mEq/L OINC) Normal Potassium Lvl 4.1 LAB 65358003(L 98-107 mEq/L OINC) High Chloride 115 LAB 95305392(L 24.0-30.0 mEq/L OINC) Low CO2 21.7 Performed By: #### [id number] #### DL [employer] [address] [place], [place] [id number] EGFR Collected: 12/12/2017 Status: F Source: BUDDHIST 6:16 AM [facility] REPOSITORY Order Comment: Order added by Discern Expert. TYPE CODE TESTS RESULT OUT OF RANGE REFERENCE UNITS LAB 03933385(LO mL/min/1.73 INC) m2 Normal eGFR 33 LAB 39349021(LO mL/min/1.73 INC) m2 Normal eGFR AA 39 Performed By: #### [id number] #### DL [employer] [address] [place], [place] [id number] CBC W/ AUTO DIFF Collected: 12/12/2017 Status: F Source: BUDDHIST 6:16 AM [facility] REPOSITORY TYPE CODE TESTS RESULT OUT OF RANGE REFERENCE UNITS LAB 13613369(L 3.6-11.0 E3/mcL OINC) Normal WBC 4.5 LAB 84412760(L 3.90-5.40 E6/mcL OINC) Low RBC 2.65 LAB 35831319(L 12.0-16.0 G/DL OINC) Low Hgb 7.7 LAB 73102759(L 36.0-48.0 % OINC) Low Hct 22.6 LAB 22687999(L 11.5-14.5 % OINC) High RDW 18.6 LAB 60765514(L 27.0-31.0 pg OINC) Normal MCH 29.0 LAB 08057643(L 33.0-37.0 G/DL OINC) Normal MCHC 34.0 LAB 10450292(L 78.0-100.0 fL OINC) Normal MCV 85.1 LAB 69617148(L 7.4-11.0 fL OINC) Normal MPV 7.7 LAB 67676681(L 130-400 E3/mcL OINC) Low Platelet 66 Performed By: #### [id number] #### DL Rem[facility]emo [address] [place] [address] MORPH Collected: 12/12/2017 Status: F Source: BUDDHIST 6:16 [facility] REPOSITORY Order Comment: Order Added by Discern Expert. TYPE CODE TESTS RESULT OUT OF RANGE REFERENCE UNITS LAB 09672031(LO INC) Normal RBC Morph NORMAL Performed By: #### [id number] #### DL Rem[facility] [place] [address] ZZPLT MORPH Collected: 12/12/2017 Status: F Source: BUDDHIST 6:16 AM [facility] REPOSITORY TYPE CODE TESTS RESULT OUT OF RANGE REFERENCE UNITS LAB 13866520(L OINC) Normal Platelet DECREASED Estimate LAB 71868437(L OINC) Normal Platelet Morph NORMAL Performed By: #### [id number] #### DL [facility] [address] [place] [address] AUTO DIFF Collected: 12/12/2017 Status: F Source: BUDDHIST 6:16 AM [facility] REPOSITORY Order Comment: Order Added by Discern Expert. TYPE CODE TESTS RESULT OUT OF RANGE REFERENCE UNITS LAB 30547049(L 37.0-75.0 % OINC) Normal Neutro Auto 71.1 LAB 50603881(L 20.0-55.0 % OINC) Low Lymph Auto 13.7 LAB 92233051(L 0.0-10.0 % OINC) High Laurel Auto 11.3 LAB 41666254(L 0.0-11.0 % OINC) Normal Eos Auto 3.3 LAB 72778151(L 0.0-2.0 % OINC) Normal Basophil Auto 0.6 LAB 39252098(L 1.4-6.5 E3/mcL OINC) Normal Neutro 3.2 Absolute LAB 01654342(L 1.2-3.4 E3/mcL OINC) Low Lymph Absolute 0.6 LAB 70818394(L 0.0-0.7 E3/mcL OINC) Normal Laurel Absolute 0.5 LAB 48213292(L 0.0-0.7 E3/mcL OINC) Normal Eos Absolute 0.1 LAB 15819310(L 0.0-0.2 E3/mcL OINC) Normal Basophil 0.0 Absolute Performed By: #### [id number] #### DL Rem[facility] [address] [place] [address] GLUCOSE POC Collected: 12/11/2017 Status: F Source: BUDDHIST 9:23 PM [facility] REPOSITORY TYPE CODE TESTS RESULT OUT OF REFERENCE UNITS RANGE LAB 51628317(LO 70-99 mg/dL INC) High Glucose POC 248 Performed By: #### [id number] #### DL POC Subsection [address] [place] [address] GLUCOSE POC Collected: 12/11/2017 Status: F Source: BUDDHIST 4:26 PM [facility] REPOSITORY TYPE CODE TESTS RESULT OUT OF REFERENCE UNITS RANGE LAB 44458706(LO 70-99 mg/dL INC) High Glucose POC 194 Performed By: #### [id number] #### DL POC Subsection [address] [place] [address] GLUCOSE POC Collected: 12/11/2017 Status: F Source: BUDDHIST 11:15 AM [facility] REPOSITORY TYPE CODE TESTS RESULT OUT OF REFERENCE UNITS RANGE LAB 74457627(LO 70-99 mg/dL INC) High Glucose POC 362 Performed By: #### [id number] #### DL POC Subsection [facility] [place] [address] GLUCOSE POC Collected: 12/11/2017 Status: F Source: BUDDHIST 7:12 AM [facility] REPOSITORY TYPE CODE TESTS RESULT OUT OF REFERENCE UNITS RANGE LAB 08171677(LO 70-99 mg/dL INC) High Glucose POC 273 Performed By: #### [id number] #### DL POC Subsection [address] [place] [address] BMP Collected: 12/11/2017 Status: F Source: BUDDHIST 5:45 AM [facility] REPOSITORY TYPE CODE TESTS RESULT OUT OF RANGE REFERENCE UNITS LAB 42714710(L 70-99 mg/dL OINC) High Glucose Lvl 283 LAB 07257417(L 7-18 mg/dL OINC) High BUN 35 LAB 0212952(LO 0.6-1.3 mg/dL INC) High Creatinine 1.6 LAB 18153526(L 5.4-30.0 ratio OINC) Normal BUN/Creat Ratio 21.9 LAB 49956894(L 8.4-10.2 mg/dL OINC) Low Calcium Lvl 7.6 LAB 40902246(L 136-145 mEq/L OINC) Low Sodium Lvl 132 LAB 68661513(L 3.5-5.1 mEq/L OINC) Normal Potassium Lvl 4.2 LAB 90289717(L 98-107 mEq/L OINC) High Chloride 108 LAB 97372091(L 24.0-30.0 mEq/L OINC) Low CO2 16.8 Performed By: #### [id number] #### DL [employer] [address] [place], [place] [id number] EGFR Collected: 12/11/2017 Status: F Source: BUDDHIST 5:45 AM [facility] REPOSITORY Order Comment: Order added by Discern Expert. TYPE CODE TESTS RESULT OUT OF RANGE REFERENCE UNITS LAB 71233099(LO mL/min/1.73 INC) m2 Normal eGFR 33 LAB 45730148(LO mL/min/1.73 INC) m2 Normal eGFR AA 39 Performed By: #### [id number] #### DL [employer] [address] [place], [place] [id number] GLUCOSE POC Collected: 12/11/2017 Status: F Source: BUDDHIST 1:40 AM [facility] REPOSITORY TYPE CODE TESTS RESULT OUT OF REFERENCE UNITS RANGE LAB 40984012(LO 70-99 mg/dL INC) High Glucose POC 207 Performed By: #### [id number] #### DL POC Subsection [facility] [place] [address] UA COMPLETE Collected: 12/10/2017 Status: F Source: BUDDHIST 9:18 PM [facility] REPOSITORY Order Comment: Straight Cath as needed TYPE CODE TESTS RESULT OUT OF RANGE REFERENCE UNITS LAB 50775762( Yellow LOINC) Normal UA Color Yellow LAB 67395846( Clear LOINC) UA Clarity Abnormal SltCloudy LAB 91952390( Negative LOINC) UA Glucose 1+ Abnormal LAB 99077400( Negative LOINC) Normal UA Bili Negative LAB 76407521( Negative LOINC) Normal UA Ketones Negative LAB 58903700( 1.003-1.030 LOINC) Normal UA Spec Grav 1.013 LAB 45305928( 4.6-8.0 LOINC) Normal UA pH 5.0 LAB 24210194( Negative LOINC) UA Protein 1+ Abnormal LAB 73495097( mg/dL LOINC) UA Abnormal Urobilinogen 2.0 LAB 55274271( Negative LOINC) Normal UA Nitrite Negative LAB 64093940( Negative LOINC) UA Blood 2+ Abnormal LAB 02857655( Negative LOINC) Normal UA Leuk Est Negative LAB 56044209( 0-3 /HPF LOINC) UA RBC Abnormal 5-10 LAB 48525516( 0-5 /HPF LOINC) Normal UA WBC 0-5 LAB 53099743( 0-2 /LPF LOINC) Normal UA Hyal Cast 0-2 LAB 05312736( 0-5 /HPF LOINC) Normal UA Squam Epithelial 0-5 LAB 87047670( Trace /LPF LOINC) UA Mucous Abnormal Trace Performed By: #### [id number] #### DL Urinalysis Automated Subsection [facility] [place] [address] PT Collected: 12/10/2017 Status: F Source: BUDDHIST 8:39 PM [facility] REPOSITORY TYPE CODE TESTS RESULT OUT OF RANGE REFERENCE UNITS LAB 79733943(LO 1.0-1.2 INC) High INR 1.4 Result Comment: INR Recommended Therapeuptic Ranges: Prophylaxis/treatment of DVT and PE?2.0-3.0 Prevention of systemic embolism?.2.0-3.0 Mechanical prosthetic values?2.5-3.5 CRITICAL VALUES?.>4.0 LAB 51864364(LOINC) 11.6-14.6 second(s) High PT 15.9 Performed By: #### [id number] #### DL Hematology Automated Subsection [address] [place] [address] PTT Collected: 12/10/2017 Status: F Source: BUDDHIST 8:39 [facility] REPOSITORY TYPE CODE TESTS RESULT OUT OF RANGE REFERENCE UNITS LAB 81815378(LO 23.2-36.4 second(s) INC) Normal PTT 31.4 Performed By: #### [id number] #### DL Hematology Automated Subsection [address] [place] [address] PTT CONTROL RATIO Collected: 12/10/2017 Status: F Source: BUDDHIST 8:39 [facility] REPOSITORY Order Comment: Order added by Discern Expert. TYPE CODE TESTS RESULT OUT OF RANGE REFERENCE UNITS LAB 39019429(LO 0.8-1.2 ratio INC) Normal PTT Ratio 1.1 Performed By: #### [id number] #### DL Hematology Automated Subsection [address] [place] [address] BMP Collected: 12/10/2017 Status: F Source: BUDDHIST 8:39 [facility] REPOSITORY TYPE CODE TESTS RESULT OUT OF RANGE REFERENCE UNITS LAB 12087168(L 70-99 mg/dL OINC) High Glucose Lvl 234 LAB 49664378(L 8.4-10.2 mg/dL OINC) Low Calcium Lvl 8.1 LAB 10096842(L 136-145 mEq/L OINC) Low Sodium Lvl 128 LAB 06008514(L 3.5-5.1 mEq/L OINC) Normal Potassium Lvl 3.9 LAB 37474490(L 98-107 mEq/L OINC) Chloride Normal 102 LAB 55077801(L 24.0-30.0 mEq/L OINC) Low CO2 17.1 LAB 10104911(L 7-18 mg/dL OINC) High BUN 36 LAB 9091315(LO 0.6-1.3 mg/dL INC) High Creatinine 1.6 LAB 25813355(L 5.4-30.0 ratio OINC) Normal BUN/Creat Ratio 22.5 Performed By: #### [id number] #### DL [employer] [facility] [place] [address] LACTIC ACID Collected: 12/10/2017 Status: F Source: BUDDHIST 8:39 PM [facility] REPOSITORY TYPE CODE TESTS RESULT OUT OF RANGE REFERENCE UNITS LAB 74972364(LO 0.5-2.2 mmol/L INC) Normal Lactic Acid 1.2 Lvl Performed By: #### [id number] #### DL [employer] [facility] [place] [address] HEP FUNC PANEL Collected: 12/10/2017 Status: F Source: BUDDHIST 8:39 [facility] REPOSITORY TYPE CODE TESTS RESULT OUT OF RANGE REFERENCE UNITS LAB 08948957(L 10-40 Int._Unit/L OINC) Normal ALT 17 LAB 44982811(L 10-42 Int._Unit/L OINC) Normal AST 24 LAB 07835616(L 3.2-5.0 G/DL OINC) Normal Albumin Lvl 3.2 LAB 15225649(L 2.0-4.0 G/DL OINC) Normal Globulin 3.8 LAB 52753895(L 1.1-1.9 ratio OINC) Low A/G Ratio 0.8 LAB 97622325(L 42-121 Int._Unit/L OINC) Normal Alk Phos 89 LAB 92260974(L .00-.20 mg/dL OINC) High Bili Direct .73 LAB 86887590(L OINC) Normal Bili Indirect 1.9 Result Comment: No established ranges available for the Indirect Biliruben. LAB 11470094(LOINC) 0.2-1.0 mg/dL High Bili Total 2.6 LAB 32743917(LOINC) 6.4-8.3 G/DL Normal Total Protein 7.0 Performed By: #### [id number] #### DL [employer] [address] [place] [address] EGFR Collected: 12/10/2017 Status: F Source: BUDDHIST 8:39 [facility] REPOSITORY Order Comment: Order added by Discern Expert. TYPE CODE TESTS RESULT OUT OF RANGE REFERENCE UNITS LAB 11348759(LO mL/min/1.73 INC) m2 Normal eGFR 33 LAB 94328536(LO mL/min/1.73 INC) m2 Normal eGFR AA 39 Performed By: #### [id number] #### DL [employer] [facility] [place] [id number] LIPASE LEVEL Collected: 12/10/2017 Status: F Source: BUDDHIST 8:39 [facility] REPOSITORY TYPE CODE TESTS RESULT OUT OF RANGE REFERENCE UNITS LAB 66296471(LO 8-57 U/L INC) Normal Lipase Lvl 26 Performed By: #### [id number] #### DL [place] [address] [place] [address] CBC W/ AUTO DIFF Collected: 12/10/2017 Status: F Source: BUDDHIST 8:39 [facility] REPOSITORY TYPE CODE TESTS RESULT OUT OF RANGE REFERENCE UNITS LAB 45148617(L 3.6-11.0 E3/mcL OINC) Normal WBC 5.3 LAB 33667280(L 3.90-5.40 E6/mcL OINC) Low RBC 2.98 LAB 49563259(L 12.0-16.0 G/DL OINC) Low Hgb 8.6 LAB 19859337(L 36.0-48.0 % OINC) Low Hct 25.3 LAB 95602724(L 11.5-14.5 % OINC) High RDW 18.6 LAB 47793046(L 27.0-31.0 pg OINC) Normal MCH 28.9 LAB 87818421(L 33.0-37.0 G/DL OINC) Normal MCHC 34.1 LAB 28269175(L 78.0-100.0 fL OINC) Normal MCV 84.7 LAB 42760813(L 7.4-11.0 fL OINC) Normal MPV 7.6 LAB 20746763(L 130-400 E3/mcL OINC) Low Platelet 68 Performed By: #### [id number] #### DL [employer] [address] [place] [address] MANUAL DIFF Collected: 12/10/2017 Status: F Source: BUDDHIST 8:39 [facility] REPOSITORY Order Comment: Order Added by Discern Expert. TYPE CODE TESTS RESULT OUT OF REFERENCE UNITS RANGE LAB 35888385( 37-75 % LOINC) Segs Man 69 Normal LAB 97011430( 14-48 % LOINC) Lymph Man 21 Normal LAB 24063209( 1-11 % LOINC) Monocyte 6 Normal Man LAB 50584283( 0-5 % LOINC) Eos Man 2 Normal LAB 62395328( 0-1 % LOINC) Basophil 0 Normal Man LAB 30165942( % LOINC) React Lymph 2 Normal Man LAB 60299602( LOINC) RBC Morph SEE Normal MORPHOLOGY LAB 80641189( LOINC) 1+ Normal Anisocytosis Performed By: #### [id number] #### DL [employer] [address] [place] [address] ZZPLT MORPH Collected: 12/10/2017 Status: F Source: BUDDHIST 8:39 [facility] REPOSITORY TYPE CODE TESTS RESULT OUT OF RANGE REFERENCE UNITS LAB 41879244(L OINC) Normal Platelet DECREASED Estimate LAB 90850364(L OINC) Normal Platelet Morph NORMAL Performed By: #### [id number] #### [facility] [address] [place] [address] .MANUAL ABS Collected: 12/10/2017 Status: F Source: BUDDHIST 8:39 [facility] REPOSITORY Order Comment: Order Added by Discern Expert. TYPE CODE TESTS RESULT OUT OF RANGE REFERENCE UNITS LAB 47993827(L 1.4-6.5 10x3/ OINC) Normal Segs Abs Man 3.7 LAB [id number](L 1.2-3.4 10x3/ OINC) Low Lymph Abs Man 1.1 LAB [id number](L 0.0-0.7 10x3/ OINC) Normal Laurel Abs Man 0.3 LAB [id number](L 0.0-0.5 10x3/ OINC) Normal Eos Abs Man 0.1 LAB [id number](L 0.0-0.2 10x3/ OINC) Normal Basophil Abs 0.0 Man Performed By: #### [id number] #### DL [facility] [address] [id number] Observed: 12/10/2017 Status: F Source: BUDDHIST C BLOOD 8:39 PM [facility] REPOSITORY Order Comment: Lab Collect Final Report: No growth at 5 Days Performed By: #### [id number] #### DL [facility] Automated Subsection [address] [id number] Observed: 12/10/2017 Status: F Source: BUDDHIST C BLOOD 8:39 PM [facility] REPOSITORY Order Comment: Lab Collect Final Report: No growth at 5 Days Performed By: #### [id number] #### DL Microbiology Automated Subsection [address] [place] [address] XR TIB/FIB LEFT 2 Observed: 12/08/2017 Status: F Source: BUDDHIST VIEW 8:23 PM [facility] REPOSITORY Exam Date/Time: 12/08/2017 20:35 EDT Reason for Exam: Other (please specify) Report CLINICAL HISTORY: Cat bite, leg pain along the distal tibia and fibula. LEFT TIBIA AND FIBULA: 12/08/2017. COMPARISON: None. FINDINGS: AP, lateral view in 4 films are provided which demonstrate no definite fractures or dislocations. There are degenerative changes of the left knee joint. No abnormal soft tissue swelling, calcifications, or radiopaque foreign bodies. There is an enthesophyte at the insertion site of plantar aponeurosis. IMPRESSION: 1. No acute fractures or dislocations. 2. No soft tissue swelling or soft tissue gas. FINAL REPORT Dictated: 12/08/2017 9:11 pm Yonatan Rosas MD Signed (Electronic Signature): 12/08/2017 9:11 pm Signed by: Yonatan Rosas MD Technologist: [facility] CT HEAD OR BRAIN W/O Observed: 12/08/2017 Status: F Source: BUDDHIST CONTRAST 7:16 PM [facility] REPOSITORY Exam Date/Time: 12/08/2017 19:16 EDT Reason for Exam: Injury Report EXAM: CT Head or Brain w/o Contrast CLINICAL STATEMENT: Status post fall with head injury. COMPARISON: 05/27/2016. TECHNIQUE: CT examination of the head without IV contrast. Dose reduction techniques were achieved by using automated exposure control and/or adjustment of mA and/or kV according to patient size and/or use of iterative reconstruction technique. FINDINGS: No midline shift, mass effect or intracranial hemorrhage are present. The mastoid air cells and the visualized paranasal sinuses are clear. IMPRESSION: No acute intracranial process. FINAL REPORT Dictated: 12/08/2017 7:31 pm Maurice Islas MD Signed (Electronic Signature): 12/08/2017 7:31 pm Signed by: Maurice Islas MD Technologist: AM LACTIC ACID Collected: 12/08/2017 Status: F Source: BUDDHIST 7:00 PM [facility] REPOSITORY TYPE CODE TESTS RESULT OUT OF RANGE REFERENCE UNITS LAB [id number](LO 0.5-2.2 mmol/L INC) Normal Lactic Acid 2.0 Lvl Performed By: #### [id number] #### DL [facility] [place] [address] AMMONIA Collected: 12/08/2017 Status: F Source: BUDDHIST 7:00 PM [facility] REPOSITORY TYPE CODE TESTS RESULT OUT OF REFERENCE UNITS RANGE LAB [id number](LO 7-35 mcmol INC) High Ammonia 54 Performed By: #### [id number] #### DL [facility] [place] [address] PT Collected: 12/08/2017 Status: F Source: BUD[facility]IST 6:55 PM [facility] REPOSITORY TYPE CODE TESTS RESULT OUT OF RANGE REFERENCE UNITS LAB [id number](LO 1.0-1.2 INC) High INR 1.5 Result Comment: INR Recommended Therapeuptic Ranges: Prophylaxis/treatment of DVT and PE?2.0-3.0 Prevention of systemic embolism?.2.0-3.0 Mechanical prosthetic values?2.5-3.5 CRITICAL VALUES?.>4.0 LAB [id number](LOINC) 11.6-14.6 second(s) High PT 16.7 Performed By: #### [id number] #### DL Hematology Automated Subsection [address] [place] [address] CMP Collected: 12/08/2017 Status: F Source: BUDDHIST 6:55 PM [facility] REPOSITORY TYPE CODE TESTS RESULT OUT OF RANGE REFERENCE UNITS LAB [id number](L 42-121 Int._Unit/ OINC) L Alk Phos Normal 96 LAB 63529526(L 0.2-1.0 mg/dL OINC) High Bili Total 4.5 LAB [id number](L 3.2-5.0 G/DL OINC) Albumin Normal Lvl 3.6 LAB 14402619(L 6.4-8.3 G/DL OINC) Total Normal Protein 7.1 LAB 77032077(L 10-40 Int._Unit/ OINC) L ALT Normal 19 LAB 14078306(L 10-42 Int._Unit/ OINC) L AST Normal 31 LAB 08630240(L 2.0-4.0 G/DL OINC) Globulin Normal 3.5 LAB 13145225(L 1.1-1.9 ratio OINC) Low A/G Ratio 1.0 LAB 51919217(L 70-99 mg/dL OINC) High Glucose Lvl 351 LAB 03558874(L 7-18 mg/dL OINC) High BUN 31 LAB 7240934(LO 0.6-1.3 mg/dL INC) High Creatinine 1.5 LAB 08786009(L 8.4-10.2 mg/dL OINC) Calcium Normal Lvl 9.0 LAB 66585898(L 136-145 mEq/L OINC) Low Sodium Lvl 129 LAB 49570885(L 3.5-5.1 mEq/L OINC) Normal Potassium Lvl 4.9 LAB 22189374(L 98-107 mEq/L OINC) Chloride Normal 104 LAB 49734662(L 24.0-30.0 mEq/L OINC) Low CO2 13.4 LAB 69740833(L 5.4-30.0 ratio OINC) Normal BUN/Creat Ratio 20.7 Performed By: #### [id number] #### DL [facility] [address] [place], [place] [id number] LIPASE LEVEL Collected: 12/08/2017 Status: F Source: BUD[facility] 6:55 PM [facility] REPOSITORY TYPE CODE TESTS RESULT OUT OF RANGE REFERENCE UNITS LAB [id number](LO 8-57 U/L INC) Normal Lipase Lvl 15 Performed By: #### [id number] #### DL [facility] [address] [place] [id number] EGFR Collected: 12/08/2017 Status: F Source: [facility]UD[facility]IST 6:55 [facility] REPOSITORY Order Comment: Order added by Discern Expert. TYPE CODE TESTS RESULT OUT OF RANGE REFERENCE UNITS LAB 22223702(LO mL/min/1.73 INC) m2 Normal eGFR 35 LAB 32390994(LO mL/min/1.73 INC) m2 Normal eGFR AA 43 Performed By: #### [id number] #### DL [facility] [place] [id number] CBC W/ AUTO DIFF Collected: 12/08/2017 Status: F Source: [place] [address]:[address] [place] [address] REPOSITORY TYPE CODE TESTS RESULT OUT OF RANGE REFERENCE UNITS LAB 77981128(L 3.6-11.0 E3/mcL OINC) Normal WBC 7.5 LAB 55284290(L 3.90-5.40 E6/mcL OINC) Low RBC 3.02 LAB 10292767(L 12.0-16.0 G/DL OINC) Low Hgb 8.7 LAB 58176795(L 36.0-48.0 % OINC) Low Hct 25.9 LAB 13837291(L 11.5-14.5 % OINC) High RDW 18.6 LAB 85315422(L 27.0-31.0 pg OINC) Normal MCH 28.7 LAB 98882304(L 33.0-37.0 G/DL OINC) Normal MCHC 33.5 LAB 99286110(L 78.0-100.0 fL OINC) Normal MCV 85.8 LAB 87898305(L 7.4-11.0 fL OINC) Normal MPV 8.0 LAB 75105880(L 130-400 E3/mcL OINC) Low Platelet 57 Performed By: #### [id number] #### DL [facility] [place] [id number] MANUAL DIFF Collected: 12/08/2017 Status: F Source: [facility]UD[facility]IST 6:55 [facility] REPOSITORY Order Comment: Order Added by Discern Expert. TYPE CODE TESTS RESULT OUT OF REFERENCE UNITS RANGE LAB [id number]( 37-75 % LOINC) Segs Man 62 Normal LAB 18731512( 0-1 LOINC) Band Man 16 High LAB 89712692( 14-48 % LOINC) Low Lymph Man 12 LAB 54371324( 1-11 % LOINC) Monocyte Man 10 Normal LAB 55248865( 0-5 % LOINC) Eos Man 0 Normal LAB 41833543( 0-1 % LOINC) Basophil Man 0 Normal LAB 50567101( LOINC) RBC Morph SEE Normal MORPHOLOGY LAB 08975601( LOINC) Polychromasia 1+ Normal LAB 47918322( LOINC) Acanthocytes 1+ Normal Performed By: #### [id number] #### DL [facility] [address] [place] [address] ZZPLT MORPH Collected: 12/08/2017 Status: F Source: [place] [address]:[address] [place] [address] REPOSITORY TYPE CODE TESTS RESULT OUT OF RANGE REFERENCE UNITS LAB 41029814(L OINC) Normal Platelet DECREASED Estimate LAB 73193828(L OINC) Normal Platelet Morph NORMAL Performed By: #### [id number] #### DL [facility] [address] [place] [address] .MANUAL ABS Collected: 12/08/2017 Status: F Source: BUDDHIST 6:[address] [place] [address] REPOSITORY Order Comment: Order Added by Discern Expert. TYPE CODE TESTS RESULT OUT OF RANGE REFERENCE UNITS LAB 90050628(L 1.4-6.5 10x3/ OINC) Normal Segs Abs Man 4.6 LAB 26523348(L 1.2-3.4 10x3/ OINC) Low Lymph Abs Man 0.9 LAB 91590817(L 0.0-0.7 10x3/ OINC) High Laurel Abs Man 0.8 LAB 54118837(L 0.0-0.5 10x3/ OINC) Normal Eos Abs Man 0.0 LAB 14513609(L 0.0-0.2 10x3/ OINC) Normal Basophil Abs 0.0 Man Performed By: #### [id number] #### DL [facility] [place] [address] ABO/RH ECHO Collected: 12/08/2017 Status: F Source: [place] [address]:55 PM [facility] REPOSITORY TYPE CODE TESTS RESULT OUT OF RANGE REFERENCE UNITS LAB 15705249(LO INC) ABO/Rh E O POS Interp... Performed By: #### [id number] #### DL Blood Bank Subsection [address] [place] [address] ANTIBODY SCREEN Collected: 12/08/2017 Status: F Source: BUDDHIST CAP... 6:55 PM [facility] REPOSITORY TYPE CODE TESTS RESULT OUT OF RANGE REFERENCE UNITS LAB 68411617(L OINC) Normal Screen Negative Interp... Performed By: #### [id number] #### DL Blood Bank Subsection [address] [place] [address] XR CHEST AP PORTABLE Observed: 12/08/2017 Status: F Source: BUDDHIST 6:[address] [facility] REPOSITORY Exam Date/Time: 12/08/2017 18:51 EDT Reason for Exam: Shortness of breath (SOB) Report CHEST ONE VIEW ADDITIONAL CLINICAL INFORMATION: Shortness of breath. COMPARISON: 07/14/2017. FINDINGS: Atherosclerotic vascular calcifications present involving the thoracic aorta. Cardiac size and pulmonary vascularity are within normal limits. There are a few punctate scattered pulmonary granulomatous calcifications. The costophrenic angles are clear. IMPRESSION: No acute cardiopulmonary disease. FINAL REPORT Dictated: 12/08/2017 7:31 pm Maurice Islas MD Signed (Electronic Signature): 12/08/2017 7:31 pm Signed by: Maurice Islas MD Technologist: [facility] HCT & HGB Collected: 12/05/2017 Status: F Source: BUD[facility] 9:38 AM [facility] REPOSITORY TYPE CODE TESTS RESULT OUT OF RANGE REFERENCE UNITS LAB [id number](LO 12.0-16.0 G/DL INC) Low Hgb 8.9 LAB 02414874(LO 36.0-48.0 % INC) Low Hct 26.9 Performed By: #### [id number] #### DL [facility] [address] [place], [place] [id number] ALBUMIN Collected: 12/05/2017 Status: F Source: [facility] 9:38 AM [facility] REPOSITORY TYPE CODE TESTS RESULT OUT OF RANGE REFERENCE UNITS LAB [id number](LO 3.2-5.0 G/DL INC) Normal Albumin Lvl 3.6 Performed By: #### [id number] #### DL [facility] [address] [place] [address] PHOSPHORUS Collected: 12/05/2017 Status: F Source: [facility] 9:38 AM [facility] REPOSITORY TYPE CODE TESTS RESULT OUT OF RANGE REFERENCE UNITS LAB [id number](L 2.5-4.6 mg/dL OINC) Normal Phosphorus 3.8 Performed By: #### [id number] #### DL [facility] [place] [address] BUN Collected: 12/05/2017 Status: F Source: [facility] 9:38 AM [facility] REPOSITORY TYPE CODE TESTS RESULT OUT OF RANGE REFERENCE UNITS LAB 89064030(LO 7-18 mg/dL INC) High BUN 24 Performed By: #### [id number] #### DL [facility] [place] [address] CREATININE Collected: 12/05/2017 Status: F Source: [facility] 9:38 AM [facility] REPOSITORY TYPE CODE TESTS RESULT OUT OF REFERENCE UNITS RANGE LAB 0356042(LO 0.6-1.3 mg/dL INC) High Creatinine 1.6 Performed By: #### [id number] #### DL [facility] [place] [address] EGFR Collected: 12/05/2017 Status: F Source: [facility]UD[facility] 9:38 AM [facility] REPOSITORY Order Comment: Order added by Discern Expert. TYPE CODE TESTS RESULT OUT OF RANGE REFERENCE UNITS LAB [id number](LO mL/min/1.73 INC) m2 Normal eGFR 33 LAB 02436382(LO mL/min/1.73 INC) m2 Normal eGFR AA 39 Performed By: #### [id number] #### DL [facility] [place] [address] LYTES Collected: 12/05/2017 Status: F Source: [facility] 9:38 AM [facility] REPOSITORY TYPE CODE TESTS RESULT OUT OF REFERENCE UNITS RANGE LAB 79793213(L 136-145 mEq/L OINC) Low Sodium Lvl 133 LAB 57619000(L 3.5-5.1 mEq/L OINC) High Potassium Lvl 5.4 LAB [id number](L 98-107 mEq/L OINC) High Chloride 109 LAB [id number](L 24.0-30.0 mEq/L OINC) Low CO2 19.2 Performed By: #### [id number] #### DL [facility] [address] [place] [address] CALCIUM Collected: 12/05/2017 Status: F Source: [facility] 9:38 AM [facility] REPOSITORY TYPE CODE TESTS RESULT OUT OF RANGE REFERENCE UNITS LAB [id number](LO 8.4-10.2 mg/dL INC) Normal Calcium Lvl 9.3 Performed By: #### [id number] #### DL [facility] [address] [place] [address] U CREATININE Collected: 12/05/2017 Status: F Source: [facility] 9:38 AM [facility] REPOSITORY TYPE CODE TESTS RESULT OUT OF RANGE REFERENCE UNITS LAB [id number](L 20-300 mg/dL OINC) U Normal Creatinine 72 Performed By: #### [id number] #### DL [facility] [address] [place] [address] U PROTEIN Collected: 12/05/2017 Status: F Source: [facility] 9:38 AM [facility] REPOSITORY TYPE CODE TESTS RESULT OUT OF REFERENCE UNITS RANGE LAB 06206970(LO 1-14 mg/dL INC) Ur High Total Protein 49 Performed By: #### [id number] #### DL [facility] [place] [address] AMMONIA Collected: 11/27/2017 Status: F Source: [facility] 3:42 PM [facility] REPOSITORY TYPE CODE TESTS RESULT OUT OF REFERENCE UNITS RANGE LAB 07850012(LO 7-35 mcmol INC) High Ammonia 77 Performed By: #### [id number] #### DL [facility] [place] [address] BMP Collected: 11/21/2017 Status: F Source: [facility] 11:34 AM [facility] REPOSITORY TYPE CODE TESTS RESULT OUT OF RANGE REFERENCE UNITS LAB 78400875(L 70-99 mg/dL OINC) High Glucose Lvl 177 LAB 87820212(L 8.4-10.2 mg/dL OINC) Calcium Normal Lvl 9.2 LAB 58502800(L 136-145 mEq/L OINC) Low Sodium Lvl 132 LAB 93759486(L 3.5-5.1 mEq/L OINC) Normal Potassium Lvl 4.5 LAB 87271630(L 98-107 mEq/L OINC) Chloride Normal 101 LAB 74618986(L 24.0-30.0 mEq/L OINC) Low CO2 21.7 LAB 97773714(L 7-18 mg/dL OINC) High BUN 35 LAB 5788375(LO 0.6-1.3 mg/dL INC) High Creatinine 1.8 LAB 31053060(L 5.4-30.0 ratio OINC) Normal BUN/Creat Ratio 19.4 Performed By: #### [id number] #### DL [facility] [place] [address] EGFR Collected: 11/21/2017 Status: F Source: [facility] 11:34 AM [facility] REPOSITORY Order Comment: Order added by Discern Expert. TYPE CODE TESTS RESULT OUT OF RANGE REFERENCE UNITS LAB [id number](LO mL/min/1.73 INC) m2 Normal eGFR 28 LAB [id number](LO mL/min/1.73 INC) m2 Normal eGFR AA 34 Performed By: #### [id number] #### DL [employer] [facility] [place] [id number] CBC W/ AUTO DIFF Collected: 11/21/2017 Status: F Source: BUDDHIST 11:34 AM [facility] REPOSITORY TYPE CODE TESTS RESULT OUT OF RANGE REFERENCE UNITS LAB [id number](L 3.6-11.0 E3/mcL OINC) Normal WBC 5.8 LAB 03308049(L 3.90-5.40 E6/mcL OINC) Low RBC 3.72 LAB 96251300(L 12.0-16.0 G/DL OINC) Low Hgb 10.9 LAB 47753647(L 36.0-48.0 % OINC) Low Hct 31.9 LAB 88052260(L 11.5-14.5 % OINC) High RDW 17.6 LAB 53174326(L 27.0-31.0 pg OINC) Normal MCH 29.2 LAB 34973477(L 33.0-37.0 G/DL OINC) Normal MCHC 34.1 LAB 11572807(L 78.0-100.0 fL OINC) Normal MCV 85.6 LAB 61027475(L 7.4-11.0 fL OINC) Normal MPV 8.3 LAB 03141806(L 130-400 E3/mcL OINC) Low Platelet 84 Performed By: #### [id number] #### DL [facility] [place] [address] MORPH Collected: 11/21/2017 Status: F Source: [facility] 11:34 AM [facility] REPOSITORY Order Comment: Order Added by Discern Expert. TYPE CODE TESTS RESULT OUT OF REFERENCE UNITS RANGE LAB 53247709( LOINC) RBC Morph SEE Normal MORPHOLOGY LAB 06129905( LOINC) 1+ Normal Anisocytosis Performed By: #### [id number] #### DL [facility] [place] [address] ZZPLT MORPH Collected: 11/21/2017 Status: F Source: [facility] 11:34 AM [facility] REPOSITORY TYPE CODE TESTS RESULT OUT OF RANGE REFERENCE UNITS LAB 90704214(L OINC) Normal Platelet DECREASED Estimate LAB 42716665(L OINC) Normal Platelet Morph NORMAL Performed By: #### [id number] #### [place] [address] AUTO DIFF Collected: 11/21/2017 Status: F Source: [facility] 11:34 AM [facility] REPOSITORY Order Comment: Order Added by Discern Expert. TYPE CODE TESTS RESULT OUT OF RANGE REFERENCE UNITS LAB [id number](L 37.0-75.0 % OINC) Normal Neutro Auto 58.6 LAB 12843213(L 20.0-55.0 % OINC) Normal Lymph Auto 22.6 LAB 98693469(L 0.0-10.0 % OINC) Normal Laurel Auto 9.4 LAB 84950098(L 0.0-11.0 % OINC) Normal Eos Auto 7.5 LAB 99319405(L 0.0-2.0 % OINC) Normal Basophil Auto 1.9 LAB 54320559(L 1.4-6.5 E3/mcL OINC) Normal Neutro 3.4 Absolute LAB 98569815(L 1.2-3.4 E3/mcL OINC) Normal Lymph Absolute 1.3 LAB 25514881(L 0.0-0.7 E3/mcL OINC) Normal [place]urel Absolute 0.5 LAB 53410190(L 0.0-0.7 E3/mcL OINC) Normal Eos Absolute 0.4 LAB 86960922(L 0.0-0.2 E3/mcL OINC) Normal Basophil 0.1 Absolute Performed By: #### [id number] #### DL [facility] [address] [place] [address] VIT B12 Collected: 11/21/2017 Status: F Source: [place] 11:34 AM [facility] REPOSITORY TYPE CODE TESTS RESULT OUT OF REFERENCE UNITS RANGE LAB 98847737(LO 180-914 pg/mL INC) High Vitamin B12 1192 Lvl Performed By: #### [id number] #### DL [facility] [address] [place] [address] HGBA1C Collected: 11/21/2017 Status: F Source: [place] 11:34 AM [facility] REPOSITORY TYPE CODE TESTS RESULT OUT OF REFERENCE UNITS RANGE LAB 671871244( 4.0-6.3 % LOINC) High Hemoglobin A1c 6.9 Performed By: #### [id number] #### DL Chemistry Manual Subsection [facility] [place] [address] *CRE/GFR POC DEVICE Collected: 11/06/2017 Status: F Source: [facility] 9:40 AM [facility] REPOSITORY TYPE CODE TESTS RESULT OUT OF REFERENCE UNITS RANGE LAB CREPC 0.50-1.20 mg/dL High Creatinine (poc 2.12 device) LAB GFRPC >60 mL/min/1.7 Low 3 sq m est GFR, (poc device) 25 Observed: 11/03/2017 Status: F Source: [facility] 5:38 PM [facility] REPOSITORY Final Report: Moderate Escherichia coli Moderate Streptococcus agalactiae (Group B) ORGANISM: EC ORGANISM: Strep B Gram Stain Report: Occasional Gram Negative Rods SUSCEPTIBILITY RESULTS Antibiotic DANIEL Dilutn DANIEL Interp ORGANISM: EC Amox/Cla : <=8/4 S Amp : <=8 S Amp/Sul : <=8/4 S Cefaz : <=8 S Cefo : <=2 S Cipro : <=1 S Gent : <=4 S Levo : <=2 S Marta : <=1 S Pip/Tee : <=16 S Tetra : <=4 S Tobra : <=4 S SXT : <=2/38 S ORGANISM: Strep B Levo : <=1 S Line : <=1 S Pen : <=0.03 S Vanc : 0.5 S Performed By: #### [id number] #### DL Microbiology Subsection [address] [place], [place] [id number] CT ABDOMEN/PELVIS WITHOUT Observed: 10/22/2017 Status: F Source: [facility] 10:27 PM [facility] REPOSITORY EXAM: CT ABDOMEN/PELVIS WITHOUT CONTRAST, 10/16/2017 11:24 AM COMPARISON: 04/17/2017. CLINICAL INDICATIONS: Bladder cancer (TCC), invasive, treated, follow up; History of bladder cancer s/p radiation treatment, evaluate for metastasis; C67.9:Malignant neoplasm of bladder, unspecified (HCC) TECHNIQUE: Helical axial images of the abdomen and pelvis were performed from the domes of the diaphragm to the ischial tuberosities without the administration of contrast. Coronal 2 mm reconstructions were also made. CONTRAST: None administered. This patient underwent a CT examination using radiation exposure as low as reasonably achievable. CTDIvol and DLP radiation exposure values for each series were: Exposure: 1; Series: 1; Anatomy: Chest; Phantom: 32 cm; CTDIvol: 13; DLP: 864 The following accession numbers are related to this dose report {[id number]}: [id number] The dose indicators for CT are the volume Computed Tomography (CT) Dose Index (CTDIvol) and the Dose Length Product (DLP), and are measured in units of mGy and mGy-cm, respectively. These indicators are not patient dose, but values generated from the CT scanner acquisition factors and may substantially underestimate or overestimate the absorbed dose based on patient size and other factors. FINDINGS: Lung Bases: For full description of cardiothoracic findings please refer to separately reported chest CT. There is mild thickening, with multiple curvilinear nodular structures bordering the lower esophagus, as visible previously, limited in evaluation without IV contrast, but compatible with esophageal varices. There is no new retrocrural lymphadenopathy. A top normal 6 mm short axis right retrocrural node is stable, indeterminate. ABDOMEN Liver: Liver is nodular and mildly contracted in contour compatible with cirrhosis. There is no substantial change in morphology. An enlarged periumbilical collateral vein courses anterior to the liver and along the midline rectus sheath to indicate with the left inferior epigastric vein. There is no definite focal lesion identified to the limits of unenhanced evaluation. Biliary/Gallbladder: Gallbladder is surgically absent. The biliary tree is nondilated. Spleen: Spleen is enlarged measuring up to 16.6 cm transverse and 22 cm craniocaudal, stable to minimally increased. Pancreas: Normal parenchymal contour, no obvious focal mass or main duct dilation. No peripancreatic fluid. Kidneys: Kidneys are normal in size in contour, the left remaining caudally displaced by the enlarged spleen. There are no stones or hydronephrosis. Adrenals: Normal contour. No focal nodule. Retroperitoneal/Lymph Nodes/Vasculature: As above, there is evidence of portal hypertension with a venous collateralization, seen as esophageal varices and enlarged periumbilical collateral vein. Several additional prominent venous collaterals are present in the upper central abdomen. There are several curvilinear nodular structures in the gastrohepatic interval. These are difficult to distinguish in terms of vascular collaterals and lymph nodes. These are not substantially changed in appearance from earlier PET/CT 11/29/2016, which had not shown any suspicious metabolic activity at this level. Moving caudally, there is no new discrete retroperitoneal lymphadenopathy by CT size criteria. Vascular assessment is limited without IV contrast. There is mild aortic atherosclerosis without abdominal aortic aneurysm. Gastrointestinal/Mesentery: Bowel pattern is unobstructed. There is mild thickening along the wall of the sigmoid colon and upper rectum, new or more conspicuous from the prior study, along with some trace fluid in the basilar intraperitoneal space and some stable slightly increased thickening along the lower peritoneal reflections. All these findings could be related to therapy. An additional component of edema/fluid in the setting of impaired hepatic function is possible. PELVIS Bladder: Bladder remains limited in delineation without IV contrast. The wall remains mildly thickened and irregular throughout. There is no obvious new perivesicular nodularity (some mildly prominent perivesicular veins persist). Genital: The uterus is surgically absent with trace air in the vaginal cuff. There is no obvious new nodularity along the margins of the vaginal cuff. Body wall: Mild subcutaneous edema is demonstrated anteriorly and posteriorly. There is a tiny fat-containing umbilical hernia and a mild degree of laxity of the midline rectus sheath, as evident previously. As above, the large collateral vein borders the midline rectus sheath. Osseous Structures: Bones are mildly to moderately demineralized. There is moderate degenerative change within the included vertebral levels, most notably the facet articulations. There is no new dominant lytic or sclerotic focal lesion identified in the included bones. IMPRESSION: 1. Bladder wall remains mildly thickened and irregular, limited in delineation without IV contrast. Findings may reflect posttherapeutic change and scar, but underlying active neoplasm would be difficult to fully exclude. There is no definite new perivesicular nodularity to suggest active perivesicular tumor. 2. There is mild thickening along the rothman of the sigmoid colon and upper rectum, and a new or more conspicuous small amount of fluid in the pelvis. This could be related to therapy, or alternately, due to mild volume overload in the setting of liver disease. 3. No definite new lymphadenopathy by pathological size criteria. As above, there our multiple venous collaterals present in the upper retroperitoneum, related to portal hypertension, limiting evaluation for lymph nodes by unenhanced evaluation. There is no obvious change in appearance and no suspicious activity was evident at this level on earlier PET/CT. 4. Morphological sequelae of cirrhosis. Stigmata of portal hypertension include multiple venous collaterals including esophageal varices and moderate to marked hepatosplenomegaly, not substantially changed. SIVE CARDIOLOGY Observed: 10/21/2017 Status: F Source: [facility] CATH PROCEDURE 8:51 AM [facility] REPOSITORY [facility] Summary: No occlusive CAD RCA with minimal plaque disease (10% maximal stenosis) LCx with minimal plaque disease (10% maximal stenosis) LAD with mild disease (10-20% mLAD stenosis) Elevated LVEDP at baseline (22 mmHg) No LV-Ao gradient on pullback LV angiography deferred Baseline hemodynamics ? Systemic BP: 160/77 mmHg ? RA Mean: 11 mmHg ? PA Systolic: 49 mmHg / PA Diastolic: 24 mmHg , PA Mean: 36 mmHg ? PCW Mean: 23 mmHg ? Jayda C.O.: 8.02 L/min / Jayda C.I.: 3.91 L/min/m2 , PA O2 Sat: 67 % ? TDCO: 10.8 L/min / TDCI: 5.27 L/min/m2 Hemodynamics after SLNTG 0.4 mg x1 ? Systemic BP: 150/71 mmHg ? PA Systolic: 40 mmHg / PA Diastolic: 18 mmHg , PA Mean: 28 mmHg ? PCW Mean: 15 mmHg Procedure notes: Right internal jugular vein infiltration with needle visualized under ultrasound guidance. Right radial access for angiography using JR5 and JL4 [facility] Invasive Cardiology Cath Procedure Ordering Physician: Valerie Sanon Order #: [id number] Study Date: 10/20/2017 Patient Information Name MRN Description Kim Dillon [id number] 62 y.o. Female Location Name Address [facility] [address] [facility] [address] Physicians Panel Physicians Referring Physician Case Authorizing Physician Jessika Lan MD (Primary) MD Valerie Toussaint MD CC Referring Recipient Method Contact Information Odalys Davis MD In Basket Felipe Blackmon MD In Basket Valerie Sanon MD In Basket Azul Castellanos CNP Fax Procedures Left Heart Catheterization Coronary Angiogram Right Heart Catheterization Hemodynamic Measurement With Drug Administration Ultrasound Guided Access Indications Pre-operative cardiovascular examination [Z01.810 (ICD-10-CM)] Conclusion [facility] Summary: No occlusive CAD RCA with minimal plaque disease (10% maximal stenosis) LCx with minimal plaque disease (10% maximal stenosis) LAD with mild disease (10-20% mLAD stenosis) Elevated LVEDP at baseline (22 mmHg) No LV-Ao gradient on pullback LV angiography deferred Baseline hemodynamics ? Systemic BP: 160/77 mmHg ? RA Mean: 11 mmHg ? PA Systolic: 49 mmHg / PA Diastolic: 24 mmHg , PA Mean: 36 mmHg ? PCW Mean: 23 mmHg ? Jayda C.O.: 8.02 L/min / Jayda C.I.: 3.91 L/min/m2 , PA O2 Sat: 67 % ? TDCO: 10.8 L/min / TDCI: 5.27 L/min/m2 Hemodynamics after SLNTG 0.4 mg x1 ? Systemic BP: 150/71 mmHg ? PA Systolic: 40 mmHg / PA Diastolic: 18 mmHg , PA Mean: 28 mmHg ? PCW Mean: 15 mmHg Procedure notes: Right internal jugular vein infiltration with needle visualized under ultrasound guidance. 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 Provider Hematuria Provider HTN (hypertension) 1990 Provider RYAN (nonalcoholic steatohepatitis) Provider HALLE (obstructive sleep apnea) 2005 uses cpap Provider Overweight(278.02) Provider Peripheral neuropathy ([facility]) Provider Renal disease Provider Splenomegaly Provider Medical History - Pertinent Negatives Pertinent Negative Date Comment Source Arrhythmia 09/15/2017 Provider Asthma 09/15/2017 Provider CAD (coronary artery disease) 09/15/2017 Provider Congestive heart failure ([facility]) 09/15/2017 Provider COPD (chronic obstructive pulmonary disease) ([facility]) 09/15/2017 Provider Hyperlipidemia 09/15/2017 Provider Hyperthyroidism 09/15/2017 Provider Hypothyroidism 09/15/2017 Provider LA (myocardial infarction) 09/15/2017 Provider Pacemaker 06/08/2015 Provider Seizure ([facility]) 06/08/2015 Provider Stroke ([facility]) 09/15/2017 Provider TIA (transient ischemic attack) 09/15/2017 Provider Vascular disease 09/15/2017 Provider Procedure The risks and alternatives of the procedure and conscious sedation were explained. Informed consent was obtained. The patient was brought to the rn cardiac cath and placed on the table. The planned puncture s ites were prepped and draped in the usual sterile fashion Coronary Findings Dominance: Right Left Anterior Descending The vessel was visualized by angiography and is moderate in size. There is mild diffuse disease throughout the vessel. First Diagonal Branch The vessel was visualized by angiography, is small and is angiographically normal. Left Circumflex The vessel was visualized by angiography and is moderate in size. The vessel exhibits minimal luminal irregularities. First Obtuse Marginal Branch The vessel was visualized by angiography, is small and is angiographically normal. Second Obtuse Marginal Branch The vessel was visualized by angiography, is small and is angiographically normal. Third Obtuse Marginal Branch The vessel was visualized by angiography, is small and is angiographically normal. Right Coronary Artery The vessel was visualized by angiography and is moderate in size. The vessel exhibits minimal luminal irregularities. Left Heart Left Ventricle LV systolic pressure is normal. LV end diastolic pressure is normal. Aortic Valve There is no aortic valve stenosis. Fluoro Dose Fluoro Dose: 52.227 Gy-cm^2 Complications Complications documented before study signed (10/21/2017 8:51 AM EDT) No complications were associated with this study. Documented by Jessika Lan MD - 10/20/2017 3:32 PM EDT Cardiac Real Property Appraiser Attending Physician Statement and Signature I have personally performed and/or personally supervised and was present for this entire procedure, including the review and interpretation of all images and physiologic tracings acquired during the course of this study. Signed at 1532 EDT Phase: Baseline Data Systolic Diastolic Mean dP/dt A Wave V Wave RA Pressures 11 mmHg 16 mmHg 13 mmHg RV Pressures 53 mmHg 19 mmHg PA Pressures 49 mmHg 24 mmHg 36 mmHg PCW Pressures 23 mmHg 28 mmHg 27 mmHg Phase: Pre Intervention Data Systolic Diastolic Mean dP/dt A Wave V Wave AO Pressures 145 mmHg 72 mmHg 104 mmHg LV Pressures 152 mmHg 22 mmHg PA Pressures 40 mmHg 18 mmHg 28 mmHg PCW Pressures 15 mmHg 19 mmHg 17 mmHg Phase: Baseline Data HR TDCO TDCI Jayda CO Jayda CI PVR/SVR TPR/TVR Hemo Outputs 10.8 L/min 5.27 L/min/m2 5.28 L/min 2.58 L/min/m2 Phase: Pre Intervention Data HR TDCO TDCI Jayda CO Jayda CI PVR/SVR TPR/TVR Hemo Outputs 8.02 L/min 3.91 L/min/m2 Blood Oximetry 10/20/17 1418--10/20/17 1533 Date/Time AO O2 Sat PA O2 Sat SVC O2 Sat 10/20/17 14:23:28 -- 68 % -- 10/20/17 14:54:11 96 % -- -- 10/20/17 14:54:30 -- -- 53 % 10/20/17 14:58:23 -- 67 % -- 10/20/17 15:03:10 96 % -- -- Coronary Diagrams Diagnostic Diagram Result Report Result Report *POC GLUCOSE BATTERY Collected: 10/20/2017 Status: F Source: [facility] 3:38 PM [facility] REPOSITORY TYPE CODE TESTS RESULT OUT OF REFERENCE UNITS RANGE LAB GLUP 70-99 mg/dL High Glucose (poc 258 device) Result Comment: No BRAVE per RN: PATIENT TYPE LAB PCSTYP *POC Capillary SAMPLE TYPE Blood *POC GLUCOSE BATTERY Collected: 10/20/2017 Status: F Source: [facility] 10:42 AM [facility] REPOSITORY TYPE CODE TESTS RESULT OUT OF REFERENCE UNITS RANGE LAB GLUP 70-99 mg/dL High Glucose (poc 287 device) Result Comment: No BRAVE per RN: PATIENT TYPE LAB PCSTYP *POC SAMPLE TYPE Venous HEMOGRAM (CBC AND Collected: 10/20/2017 Status: F Source: [facility] PLATELET) 10:11 AM [facility] REPOSITORY TYPE CODE TESTS RESULT OUT OF REFERENCE UNITS RANGE LAB WBC 3.98-10.04 K/uL WBC Count 6.04 LAB RBC 3.93-5.22 M/uL Low RBC Count 2.75 LAB HGB 11.2-15.7 g/dL Low Hemoglobin 8.4 LAB HCT 34.1-44.9 % Low Hematocrit 24.6 LAB MCV 79.4-94.8 fL Mean Cell Volume 89.5 LAB MCH 25.6-32.2 pg Mean Cell Hgb 30.5 LAB MCHC 32.2-35.5 g/dL Mean Cell Hgb Conc 34.1 LAB RDW 11.7-14.4 % RBC High Distribution 16.5 LAB PLT 182-369 K/uL Low Platelet Count 61 LAB MPV 9.4-12.3 fL Mean Platelet Volume 10.1 LAB NRBC 0.0-0.2 /100 WBC NUCLEATED RBC 0.0 Performed By: #### HEMOGC, CHM6, PTI #### [facility] [address] [place] [address] CHEM 6 Collected: 10/20/2017 Status: F Source: [facility] 10:11 AM [facility] REPOSITORY TYPE CODE TESTS RESULT OUT OF REFERENCE UNITS RANGE LAB BUN 7-22 mg/dL BUN High 40 LAB NA 133-143 mmol/L Low Sodium 132 LAB K 3.5-5.0 mmol/L Potassium 4.8 LAB CL 98-108 mmol/L Chloride 104 LAB CO2 22-30 mmol/L Low Carbon Dioxide 19 LAB CREA 0.50-1.20 mg/dL High Creatinine 1.53 LAB GAP 7-17 mmol/L Anion Gap 14 LAB BC BUN/CREA Ratio 26 LAB GFR >60 mL/min/1.73 Low sqM Est GFR,non 34 Estonian LAB GFRA >60 mL/min/1.73 Low sqM Est GFR, 41 Performed By: #### HEMOGC, CHM6, PTI #### [facility] [address] [place] [address] [facility] [address] [place] [address] PT/INR BATTERY Collected: 10/20/2017 Status: F Source: [facility] 10:11 AM [facility] REPOSITORY TYPE CODE TESTS RESULT OUT OF RANGE REFERENCE UNITS LAB PT 11.9-14.2 sec High PT 15.7 LAB INR 0.9-1.1 High INR 1.3 Performed By: #### HEMOGC, CHM6, PTI #### [facility] [address] [place], [place] [address] [place] [address] [address] [place] [address] PT*PTT - CHRI Collected: 10/16/2017 Status: F Source: [facility] 1:20 PM [facility] REPOSITORY TYPE CODE TESTS RESULT OUT OF RANGE REFERENCE UNITS LAB PT 11.9-14.2 sec High PT 15.4 LAB INR 0.9-1.1 High INR 1.2 LAB PTT 24.0-34.3 sec PTT 30.5 Performed By: #### BOOMDFJ #### [facility] [address] [place] [address] ALBUMIN - CHRI Collected: 10/16/2017 Status: F Source: [facility] 1:20 PM [facility] REPOSITORY TYPE CODE TESTS RESULT OUT OF REFERENCE UNITS RANGE LAB ALB 3.5-5.0 g/dL Albumin 3.8 Performed By: #### ISSACJ #### [facility] [address] [place] [address] ALP*ALT*AST - CHRI Collected: 10/16/2017 Status: F Source: [facility] 1:20 PM [facility] REPOSITORY TYPE CODE TESTS RESULT OUT OF REFERENCE UNITS RANGE LAB ALT 9-48 U/L ALT 17 LAB AST 14-40 U/L AST 23 LAB ALP 32-126 U/L Alkaline High Phosphatase 130 Performed By: #### BOOMDFJ #### [facility] [address] [place] [address] BILIRUBIN - CHRI Collected: 10/16/2017 Status: F Source: [facility] 1:20 PM [facility] REPOSITORY TYPE CODE TESTS RESULT OUT OF REFERENCE UNITS RANGE LAB BILT <1.5 mg/dL High Bilirubin Total 5.0 LAB BILD <0.3 mg/dL High Bilirubin 1.2 Direct Performed By: #### CBCDFJ #### [facility], [facility] [address] [place], [place] [address] CALCIUM - CHRI Collected: 10/16/2017 Status: F Source: [facility] 1:20 PM [facility] REPOSITORY TYPE CODE TESTS RESULT OUT OF REFERENCE UNITS RANGE LAB CA 8.6-10.5 mg/dL Calcium 9.4 Performed By: #### CBCDFJ #### [facility] [address] [place] [address] CHEM 7 - CHRI Collected: 10/16/2017 Status: F Source: [facility] 1:20 PM [facility] REPOSITORY TYPE CODE TESTS RESULT OUT OF REFERENCE UNITS RANGE LAB BUN 7-22 mg/dL BUN High 35 LAB CREA 0.50-1.20 mg/dL High Creatinine 1.50 LAB NA 133-143 mmol/L Low Sodium 132 LAB K 3.5-5.0 mmol/L Potassium 4.8 LAB CL 98-108 mmol/L Chloride 105 LAB CO2 22-30 mmol/L Low Carbon Dioxide 19 LAB GLUC 70-99 mg/dL Glucose High 224 LAB GFR >60 mL/min/1.73 Low sqM Est GFR,non 35 Estonian LAB GFRA >60 mL/min/1.73 Low sqM Est GFR, 42 LAB GAP 7-17 mmol/L Anion Gap 13 LAB BC BUN/CREA Ratio 23 LAB OSMC 278-305 mOsm/kg Osmolality 295 (Calc) Performed By: #### CBCDFJ #### [place] [facility], [facility] [address] [place], [place] [address] CBC WITH DIFF ENOCH Collected: 10/16/2017 Status: F Source: [facility] 1:20 PM [facility] REPOSITORY TYPE CODE TESTS RESULT OUT OF REFERENCE UNITS RANGE LAB WBC 3.98-10.04 K/uL WBC Count 4.74 LAB RBC 3.93-5.22 M/uL RBC Count 2.98 Low LAB HGB 11.2-15.7 g/dL Hemoglobin 9.2 Low LAB HCT 34.1-44.9 % Hematocrit 26.4 Low LAB MCV 79.4-94.8 fL Mean Cell 88.6 Volume LAB MCH 25.6-32.2 pg Mean Cell 30.9 Hgb LAB MCHC 32.2-35.5 g/dL Mean Cell 34.8 Hgb Conc LAB RDW 11.7-14.4 % RBC 17.1 High Distribution LAB PLT 182-369 K/uL Platelet 69 Low Count LAB MPV 9.4-12.3 fL Mean 10.0 Platelet Volume LAB NRBC 0.0-0.2 /100 WBC NUCLEATED 0.0 RBC LAB DTYPE Electronic DIFFERENTIAL TYPE Differential LAB IGRE % IMMATURE 0.2 GRANS % LAB SEGS % NEUTROPHIL 58.8 SEGMENTED LAB LYM % LYMPHOCYTE 22.6 % LAB MON % MONOCYTE % 8.9 LAB EOS % EOSINOPHIL 8.4 % LAB BASO % BASOPHIL % 1.1 LAB IGABS 0.00-0.03 K/uL IMMATURE 0.01 GRANS ABSOLUTE LAB SBANS 1.56-6.13 K/uL SEGS + 2.79 Bands,Absolute LAB ALYM 1.18-3.74 K/uL Abs Lymph 1.07 Low LAB AMONO 0.24-0.86 K/uL Abs Laurel 0.42 LAB AEOS 0.04-0.36 K/uL Abs Eos 0.40 High LAB ABASO 0.01-0.08 K/uL Abs Baso 0.05 Performed By: #### CBCDFJ #### [place], [facility] [address] [address] [address] CHEST WITHOUT Observed: 10/16/2017 Status: F Source: [facility] 12:31 PM [facility] REPOSITORY EXAM: CT CHEST WITHOUT CONTRAST, 10/16/2017 11:24 AM COMPARISON: April 17, 2017 CLINICAL INDICATIONS: Bladder cancer (TCC), invasive, treated, follow up; RELEVANT CLINICAL HISTORY: C67.9:Malignant neoplasm of bladder, unspecified (HCC) TECHNIQUE: Axial CT images were reconstructed from the volumetric data set, from the thoracic inlet through the adrenal glands. No intravenous contrast was used. Coronal MIP images were also reconstructed. This patient underwent a CT examination using radiation exposure as low as reasonably achievable. CTDIvol and DLP radiation exposure values for each series were: Exposure: 1; Series: 1; Anatomy: Chest; Phantom: 32 cm; CTDIvol: 13; DLP: 864 The following accession numbers are related to this dose report {[id number]}: [id number] The dose indicators for CT are the volume Computed Tomography (CT) Dose Index (CTDIvol) and the Dose Length Product (DLP), and are measured in units of mGy and mGy-cm, respectively. These indicators are not patient dose, but values generated from the CT scanner acquisition factors and may substantially underestimate or overestimate the absorbed dose based on patient size and other factors. FINDINGS: Lungs and Pleura: 6 mm nodule at the right lung base, stable since the prior study. Otherwise clear. No pleural fluid. Tracheobronchial tree: No abnormality. Mediastinum/Jodi: Small nodes, not enlarged by CT criteria. Axilla and Supraclavicular Regions: No axillary or supraclavicular adenopathy. Cardiovascular: The cardiac chambers are within normal limits. The pericardium is normal. The aorta and its arch branch vessels are unremarkable. The pulmonary arteries are also unremarkable. Upper Abdomen: Please see the abdominal CT scan report from the same date for further description of findings related to the upper abdomen. Bones and Soft Tissue: No suspicious osseous lesion. IMPRESSION: 1. Stable nodule in the right lung base. No other abnormality. 2. Please see the abdomen CT report from the same date. DER CANCER, FISH Collected: 10/16/2017 Status: F Source: [facility] 11:43 AM [facility] REPOSITORY TYPE CODE TESTS RESULT OUT OF REFERENCE UNITS RANGE LAB YBRES Bladder See below Cancer, FISH Result Comment: (NOTE) CYTOGENETIC RESULTS Cytogenetic Reference #: [id number] Test Setup Date: 10/17/2017 Test Completion Date: 10/20/2017 Specimen Source: Urine Clinical History:Non invasive papillary urothelial carcinoma Interphase Cells: >=25 Metaphase Cells: 0 FISH RESULTS: NEGATIVE INTERPRETATION and COMMENTS: This result is NOT INDICATIVE of bladder cancer according to the Vysis UroVysion Directional Insert. A NORMAL hybridization pattern was observed for chromosomes 3, 7, 9, and 17. Although the UroVysion test was designed to detect genetic changes associated with most bladder cancers, not all genetic changes can be detected by this test. If the test results are not consistent with other clinical findings, a consultation between a pathologist and the treating physician is warranted. Vysis UroVysion test: Designed as an aid for the initial diagnosis of bladder carcinoma in patients with hematuria and subsequent monitoring for tumor recurrence in patients previously diagnosed with bladder cancer. For samples other than voided urine, the analytical performance characteristics of this assay have been determined by [place] The modifications have not been cleared or approved by the FDA. This assay has been validated pursuant to the CLIA regulations and is used for clinical purposes. For a review of the performance characteristics of the UroVysion assay, see Adv Carola Pathol 2008;15:279-86. FISH ISCN: nuc marilia(D3Z1,D7Z1,CDKN2A,D17Z1)x2 Electronic Signature on File Toro Alonso, Ph.D., [facility] Director, Cytogenetics and Genomics, Test Performed by [facility], [facility], [address] [place] [address] Colin Fleming M.D., Ph.D., Director of Laboratories , [facility] [id number] Test sent to [facility] Performed By: #### YBFISH #### Reference lab information reported with result HLA SINGLE LOCUS Collected: 09/15/2017 Status: F Source: [facility] 3:00 PM [facility] REPOSITORY TYPE CODE TESTS RESULT OUT OF REFERENCE UNITS RANGE LAB HLASLQ HLA SINGLE LOCUS DQA LAB ALLEL1 ALLELE 1 03:XX LAB ALLEL2 ALLELE 2 xxx LAB HLAINT HLA interpretation HLA DQA1*03:XX, LAB HLCOM3 HLA COMMENT Result Comment: Testing performed by SSOP (sequence specific oligonucleotide probe methodology). Additional testing may be performed by SSP (sequence specific primer), and or SBT ( sequence based Typing ) methodologies. Some of the reagents used for testing in the Clinical Histocompatibility Laboratory have yet to be approved by the FDA. Our certification by CLIA to perform high complexity tests allows us to use the se reagents in the context of a stringent QC program, and obviates the need for FDA approval. Testing performed by the [facility] Clinical Histocompatibility Laboratory. [facility] number: [id number]. CLIA number: [id number], Director: Manuelito Mcconnell, PhD, D([facility]). Performed By: #### HLALOC #### [place] [address] Observed: 09/15/2017 Status: F Source: [facility] TYPE AND SCREEN - 1:58 PM [facility] REPOSITORY ABO/RH(D): O POSITIVE ANTIBODY SCREEN: NEGATIVE Performed By: #### TYSC #### [address] [place] [address] ALCOHOL, URINE Collected: 09/15/2017 Status: F Source: [facility] 12:04 PM [facility] REPOSITORY TYPE CODE TESTS RESULT OUT OF REFERENCE UNITS RANGE LAB ALCOUU <10 mg/dL NONE DETECTED Alcohol, Urine Performed By: #### ALCOUU, UDRG #### [place] [address] URINE DRUG SCREEN Collected: 09/15/2017 Status: F Source: [facility] 12:04 PM [facility] REPOSITORY TYPE CODE TESTS RESULT OUT OF REFERENCE UNITS RANGE LAB AURES URINE DRUGS DETECTED Result Comment: CAFFEINE ZOLPIDEM Diphenhydramine SERTRALINE LAB AUDRG For Medical Purposes Urine Drug Only, Non-forensic, Screen screen results are presumptive. No confirmatory testing will follow. Result Comment: This Liquid Chromatography Mass Spectrometry (LC/MS/MS) test was developed and its performance characteristics determined by [facility] at [facility]. It has not been cleared or approved by the FDA. The laboratory is regulated under CLIA as qualified to perform high-complexity testing. This test is used for clinical purposes. It should not be regarded as investigational or for research. The following drugs with their lowest level of detection in ng/ml(LOD) are included in this screen: 6 Monoacetylmorphine(300), 7 Aminoflunitrazepam(25), 7 Aminoclonazepam(50), Alphahydroxytriazolam(400), Alphahydrozyalprazolam(200), Alprazolam(50), Amitriptyline(50), Amphetamine(250), Atenolol(500), Barbiturates(200), Benzoylecgonine(50), Buprenorphine(500), Bupropion(25), Caffeine(25692), Cannabinoids(THC)(50), Chlordiazepoxide(50), Chlorpheniramine(100), Chlorpromazine(50), Citalopram(100), Clonazepam(200), Cocaine(25), Codeine(200), Cotinine(500), Desakylflurazepam(50), Desipramine(50), Desmethyldoxepin(100), Dextromethorphan(100), Diazepam(100), Dihydrocodeine(100), Diltazem(50), Diphenhydramine(100), Doxepin(100), EDDP/methadone(100), Ephedrine/Pseudoephedrine(100), Fentanyl(25), Flunitrazepam(100), Fluoxetine(200), Flurazepam(50), Gabapentin(1500), Haloperidol(25), Hydrocodone(100), Hydromorphone(200), Imipramine(50), Ketamine(25), Lidocaine(25), Lorazepam(100), Lysergide(LSD)(25), Maprotiline(200), MDA(250), MDMA(250), Meperidine(50), Methadone(50), Methamphetamine(500), Methylphenidate(50), Metoprolol(50), Morphine(200), Nalbuphine(50), Naloxone(200), Norbuprenorphine(300), Nordiazepam(100), Norfentanyl(100), Norpropoxyphene(50), Nortriptyline(50), Olanzapine(200), Oxazepam(200), Oxycodone(100), Oxymorphone(200), Phencyclidine(PCP)(25), Pheniramine(25), Pregabalin(1500), Promethazine(50), Propoxyphene(100), Propanolol(50) Quetiapine(25), Quinidine(500), Ranitidine(500), Risperidone(100), Sertraline(50), Temazepam(100), Thioridazine(100), Tramadol(50), Trazodone(25, Triazolam(100), Venlafaxine(50), Verapamil(100), Zolpidem(200) Performed By: #### ALCOUU, UDRG #### [place] [address] PT*PTT Collected: 09/15/2017 Status: F Source: [facility] 12:03 [facility] REPOSITORY TYPE CODE TESTS RESULT OUT OF RANGE REFERENCE UNITS LAB PT 11.9-14.2 sec High PT 15.4 LAB INR 0.9-1.1 High INR 1.2 LAB PTT 24.0-34.3 sec PTT 29.8 Performed By: #### PTPTT, ALB, BILI, CA, CHM7, ENZ3, ALCOSU, CBCDFC, A1CB, SERDRG, HBSAB, HBSAG, HCAB, TOXOG, HAABG, HBCBG, HIV, EBVG, HSVG12, SYPHG, RUBOIB, VZISB, CMVG, QFTB, AFPTMR, THCCMS #### [place] [address] #### HLAB #### [facility] (DEFAULT) [address] [place] [address] ALBUMIN Collected: 09/15/2017 Status: F Source: [facility] 12:03 [facility] REPOSITORY TYPE CODE TESTS RESULT OUT OF REFERENCE UNITS RANGE LAB ALB 3.5-5.0 g/dL Albumin 3.7 Performed By: #### PTPTT, ALB, BILI, CA, CHM7, ENZ3, ALCOSU, CBCDFC, A1CB, SERDRG, HBSAB, HBSAG, HCAB, TOXOG, HAABG, HBCBG, HIV, EBVG, HSVG12, SYPHG, RUBOIB, VZISB, CMVG, QFTB, AFPTMR, THCCMS #### [facility] [address] [place] [address] [facility] [address] [place] [address] #### HLAB #### [facility] (DEFAULT) [address] [place] [address] BILIRUBIN, TOTAL AND Collected: 09/15/2017 Status: F Source: [facility] DIRECT 12:03 PM [facility] REPOSITORY TYPE CODE TESTS RESULT OUT OF REFERENCE UNITS RANGE LAB BILT <1.5 mg/dL High Bilirubin Total 4.5 LAB BILD <0.3 mg/dL High Bilirubin 1.2 Direct Performed By: #### PTPTT, ALB, BILI, CA, CHM7, ENZ3, ALCOSU, CBCDFC, A1CB, SERDRG, HBSAB, HBSAG, HCAB, TOXOG, HAABG, HBCBG, HIV, EBVG, HSVG12, SYPHG, RUBOIB, VZISB, CMVG, QFTB, AFPTMR, THCCMS #### [facility] [address] [place] [address] [facility] [address] [place] [address] #### HLAB #### [facility] (DEFAULT) [address] [place] [address] CALCIUM Collected: 09/15/2017 Status: F Source: [facility] 12:03 PM [facility] REPOSITORY TYPE CODE TESTS RESULT OUT OF REFERENCE UNITS RANGE LAB CA 8.6-10.5 mg/dL Calcium 8.9 Performed By: #### PTPTT, ALB, BILI, CA, CHM7, ENZ3, ALCOSU, CBCDFC, A1CB, SERDRG, HBSAB, HBSAG, HCAB, TOXOG, HAABG, HBCBG, HIV, EBVG, HSVG12, SYPHG, RUBOIB, VZISB, CMVG, QFTB, AFPTMR, THCCMS #### [facility] [address] [place] [address] #### HLAB #### [facility] (DEFAULT) [address] [place] [address] CHEM 7 Collected: 09/15/2017 Status: F Source: [facility] 12:03 [facility] REPOSITORY TYPE CODE TESTS RESULT OUT OF REFERENCE UNITS RANGE LAB BUN 7-22 mg/dL BUN High 26 LAB NA 133-143 mmol/L Sodium 133 LAB K 3.5-5.0 mmol/L Potassium 4.9 LAB CL 98-108 mmol/L Chloride 106 LAB CO2 22-30 mmol/L Low Carbon Dioxide 21 LAB GLUC 70-99 mg/dL Glucose High 399 LAB CREA 0.50-1.20 mg/dL High Creatinine 1.72 LAB GAP 7-17 mmol/L Anion Gap 11 LAB BC BUN/CREA Ratio 15 LAB [facility] 278-305 mOsm/kg Osmolality 305 (Calc) LAB GFR >60 mL/min/1.73 Low sqM Est GFR,non 30 [place] LAB GFRA >60 mL/min/1.73 Low sqM Est GFR, 36 Performed By: #### PTPTT, ALB, BILI, CA, CHM7, ENZ3, ALCOSU, CBCDFC, A1CB, SERDRG, HBSAB, HBSAG, HCAB, TOXOG, HAABG, HBCBG, HIV, EBVG, HSVG12, SYPHG, RUBOIB, VZISB, CMVG, QFTB, AFPTMR, THCCMS #### [facility] [address] [place] [address] #### HLAB #### [facility] (DEFAULT) 410 [place] [address] ALP*ALT*AST Collected: 09/15/2017 Status: F Source: [facility] 12:03 [facility] REPOSITORY TYPE CODE TESTS RESULT OUT OF REFERENCE UNITS RANGE LAB ALP 32-126 U/L Alkaline High Phosphatase 144 LAB ALT 9-48 U/L ALT 20 LAB AST 14-40 U/L AST 22 Performed By: #### PTPTT, ALB, BILI, CA, CHM7, ENZ3, ALCOSU, CBCDFC, A1CB, SERDRG, HBSAB, HBSAG, HCAB, TOXOG, HAABG, HBCBG, HIV, EBVG, HSVG12, SYPHG, RUBOIB, VZISB, CMVG, QFTB, AFPTMR, THCCMS #### [facility] [address] [place] [address] #### HLAB #### [facility] (DEFAULT) 410 [place] [address] ALCOHOL,WHOLE BLOOD/SERUM Collected: 09/15/2017 Status: F Source: [facility] 12:03 [facility] REPOSITORY TYPE CODE TESTS RESULT OUT OF REFERENCE UNITS RANGE LAB ALCOSU <10 mg/dL <10 Alcohol,Whol e Blood/Serum Result Comment: For Medical Purposes Only, Non forensic Performed By: #### PTPTT, ALB, BILI, CA, CHM7, ENZ3, ALCOSU, CBCDFC, A1CB, SERDRG, HBSAB, HBSAG, HCAB, TOXOG, HAABG, HBCBG, HIV, EBVG, HSVG12, SYPHG, RUBOIB, VZISB, CMVG, QFTB, AFPTMR, THCCMS #### [facility] [address] [place] [address] #### HLAB #### [facility] (DEFAULT) [address] [address] CBC,PLATELET,DIFFERENTIAL - CCL Collected: Status: F Source: [facility] 09/15/2017 12:03 [facility] REPOSITORY TYPE CODE TESTS RESULT OUT OF REFERENCE UNITS RANGE LAB WBC 3.98-10.04 K/uL Low WBC Count 3.42 LAB RBC 3.93-5.22 M/uL Low RBC Count 3.11 LAB HGB 11.2-15.7 g/dL Low Hemoglobin 9.2 LAB HCT 34.1-44.9 % Low Hematocrit 27.1 LAB MCV 79.4-94.8 fL Mean Cell Volume 87.1 Result Comment: Results inconsistent with previous results LAB MCH 25.6-32.2 pg Mean Cell Hgb 29.6 LAB MCHC 32.2-35.5 g/dL Mean Cell Hgb Conc 33.9 LAB RDW 11.7-14.4 % RBC Distribution High 22.1 LAB PLT 182-369 K/uL Low Platelet Count 60 Result Comment: Automated platelet count confirmed by manual slide review LAB MPV 9.4-12.3 fL Mean Platelet 9.6 Volume LAB NRBC 0.0-0.2 /100 WBC NUCLEATED RBC 0.0 LAB DTYPE DIFFERENTIAL Electronic TYPE Differential LAB IGRE % IMMATURE GRANS 0.6 % LAB SEGS % NEUTROPHIL 67.5 SEGMENTED LAB LYM % LYMPHOCYTE % 19.0 LAB MON % MONOCYTE % 7.6 LAB EOS % EOSINOPHIL % 4.7 LAB BASO % BASOPHIL % 0.6 LAB IGABS 0.00-0.03 K/uL IMMATURE GRANS 0.02 ABSOLUTE LAB SBANS 1.56-6.13 K/uL SEGS + 2.31 Bands,Absolute LAB ALYM 1.18-3.74 K/uL Abs Lymph 0.65 Low LAB AMONO 0.24-0.86 K/uL Abs Laurel 0.26 LAB AEOS 0.04-0.36 K/uL Abs Eos 0.16 LAB ABASO 0.01-0.08 K/uL Abs Baso 0.02 Performed By: #### PTPTT, ALB, BILI, CA, CHM7, ENZ3, ALCOSU, CBCDFC, A1CB, SERDRG, HBSAB, HBSAG, HCAB, TOXOG, HAABG, HBCBG, HIV, EBVG, HSVG12, SYPHG, RUBOIB, VZISB, CMVG, QFTB, AFPTMR, THCCMS #### [facility] [address] [place] [address] [place] [address] #### HLAB #### [facility] (DEFAULT) [address] [place] [address] HEMOGLOBIN A1C Collected: 09/15/2017 Status: F Source: [facility] 12:03 PM [facility] REPOSITORY TYPE CODE TESTS RESULT OUT OF REFERENCE UNITS RANGE LAB A1C 4.7-5.6 % High Hemoglobin A1C 7.3 LAB EAG mg/dL Estimated 163 Average Glucose Performed By: #### PTPTT, ALB, BILI, CA, CHM7, ENZ3, ALCOSU, CBCDFC, A1CB, SERDRG, HBSAB, HBSAG, HCAB, TOXOG, HAABG, HBCBG, HIV, EBVG, HSVG12, SYPHG, RUBOIB, VZISB, CMVG, QFTB, AFPTMR, THCCMS #### [facility] [address] [place] [address] [facility] [address] [place] [address] #### HLAB #### [facility] (DEFAULT) [address] [place] [address] BLOOD DRUG SCREEN Collected: 09/15/2017 Status: F Source: [facility] 12:03 PM [facility] REPOSITORY TYPE CODE TESTS RESULT OUT OF REFERENCE UNITS RANGE LAB ASRES BLOOD DRUGS DETECTED Result Comment: CAFFEINE NORDIAZEPAM ZOLPIDEM Diphenhydramine SERTRALINE LAB ASDRG For Medical Purposes BLOOD DRUG Only, Non-forensic, SCREEN screen results are presumptive. No confirmatory testing will follow. Result Comment: This Liquid Chromatography Mass Spectrometry (LC/MS/MS) test was developed and its performance characteristics determined by Toxicology Laboratory at [facility]. It has not been cleared or approved by the FDA. The laboratory is regulated under CLIA as qualified to perform high-complexity testing. This test is used for clinical purposes. It should not be regarded as investigational or for research. The following drugs with their lowest level of detection in ng/ml(LOD) are included in this screen: 6 Monoacetylmorphine(300), 7 Aminoflunitrazepam(25), 7 Aminoclonazepam(50), Alphahydroxytriazolam(400), Alphahydrozyalprazolam(200), Alprazolam(50), Amitriptyline(50), Amphetamine(250), Atenolol(500), Barbiturates(1000), Benzoylecgonine(50), Buprenorphine(50), Bupropion(25), Caffeine(06713), Chlordiazepoxide(50), Chlorpheniramine(100), Chlorpromazine(50), Citalopram(100), Clonazepam(200), Cocaine(25), Codeine(200), Cotinine(500), Desakylflurazepam(50), Desipramine(50), Desmethyldoxepin(100), Dextromethorphan(100), Diazepam(100), Dihydrocodeine(100), Diltazem(50), Diphenhydramine(100), Doxepin(100), EDDP/methadone(100), Ephedrine/Pseudoephedrine(100), Fentanyl(25), Flunitrazepam(100), Fluoxetine(200), Flurazepam(50), Gabapentin(1500), Haloperidol(25), Hydrocodone(100), Hydromorphone(200), Imipramine(50), Ketamine(25), Lidocaine(25), Lorazepam(100), Lysergide(LSD)(25), Maprotiline(200), MDA(250), MDMA(250), Meperidine(50), Methadone(50), Methamphetamine(500), Methylphenidate(50), Metoprolol(50), Morphine(200), Nalbuphine(50), Naloxone(200), Norbuprenorphine(300), Nordiazepam(100), Norfentanyl(100), Norpropoxyphene(50), Nortriptyline(50), Olanzapine(200), Oxazepam(200), Oxycodone(100), Oxymorphone(200), Phencyclidine(PCP)(25), Pheniramine(25), Pregabalin(1500), Promethazine(50), Propoxyphene(100), Propanolol(50) Quetiapine(25), Quinidine(500), Ranitidine(500), Risperidone(100), Sertraline(50), Temazepam(100), Thioridazine(100), Tramadol(50), Trazodone(25, Triazolam(100), Venlafaxine(50), Verapamil(100), Zolpidem(200) Performed By: #### PTPTT, ALB, BILI, CA, CHM7, ENZ3, ALCOSU, CBCDFC, A1CB, SERDRG, HBSAB, HBSAG, HCAB, TOXOG, HAABG, HBCBG, HIV, EBVG, HSVG12, SYPHG, RUBOIB, VZISB, CMVG, QFTB, AFPTMR, THCCMS #### [facility] [address] [place] [address] #### HLAB #### [facility] (DEFAULT) 410 [place] [address] HLA TYPING Collected: 09/15/2017 Status: X Source: [facility] 12:03 [facility] REPOSITORY TYPE CODE TESTS RESULT OUT OF REFERENCE UNITS RANGE LAB HLAB HLA TYPING This result has been cancelled. Performed By: #### PTPTT, ALB, BILI, CA, CHM7, ENZ3, ALCOSU, CBCDFC, A1CB, SERDRG, HBSAB, HBSAG, HCAB, TOXOG, HAABG, HBCBG, HIV, EBVG, HSVG12, SYPHG, RUBOIB, VZISB, CMVG, QFTB, AFPTMR, THCCMS #### [facility] [id number] [place] [address] [address] [place] [address] #### HLAB #### [facility] (DEFAULT) 410 [place] [address] HEP B SURFACE AB Collected: 09/15/2017 Status: F Source: [facility] 12:03 [facility] REPOSITORY TYPE CODE TESTS RESULT OUT OF REFERENCE UNITS RANGE LAB HBSAB Hep B Surface Negative Ab Performed By: #### PTPTT, ALB, BILI, CA, CHM7, ENZ3, ALCOSU, CBCDFC, A1CB, SERDRG, HBSAB, HBSAG, HCAB, TOXOG, HAABG, HBCBG, HIV, EBVG, HSVG12, SYPHG, RUBOIB, VZISB, CMVG, QFTB, AFPTMR, THCCMS #### [facility] [address] [place] [id number] [place] [address] [address] [place] [address] #### HLAB #### [facility] (DEFAULT) [address] [place] [address] HEP B SURFACE AG Collected: 09/15/2017 Status: F Source: [facility] 12:03 PM [facility] REPOSITORY TYPE CODE TESTS RESULT OUT OF REFERENCE UNITS RANGE LAB HBSAG Negative Hep B Surface Negative Ag Performed By: #### PTPTT, ALB, BILI, CA, CHM7, ENZ3, ALCOSU, CBCDFC, A1CB, SERDRG, HBSAB, HBSAG, HCAB, TOXOG, HAABG, HBCBG, HIV, EBVG, HSVG12, SYPHG, RUBOIB, VZISB, CMVG, QFTB, AFPTMR, THCCMS #### [facility] [address] [place] [address] [address] [place] [address] #### HLAB #### [facility] (DEFAULT) [address] [place] [address] HEPATITIS C ANTIBODY Collected: 09/15/2017 Status: F Source: [facility] 12:03 [facility] REPOSITORY TYPE CODE TESTS RESULT OUT OF REFERENCE UNITS RANGE LAB HCAB Negative Hepatitis C Negative Antibody Performed By: #### PTPTT, ALB, BILI, CA, CHM7, ENZ3, ALCOSU, CBCDFC, A1CB, SERDRG, HBSAB, HBSAG, HCAB, TOXOG, HAABG, HBCBG, HIV, EBVG, HSVG12, SYPHG, RUBOIB, VZISB, CMVG, QFTB, AFPTMR, THCCMS #### [facility] [address] [place] [phone] [place] [address] [address] #### HLAB #### [facility] (DEFAULT) [address] [place] [address] TOXOPLASMA IGG Collected: 09/15/2017 Status: F Source: [facility] ANTIBODY 12:03 PM [facility] REPOSITORY TYPE CODE TESTS RESULT OUT OF REFERENCE UNITS RANGE LAB TOXOG Negative Toxoplasma IgG Negative Antibody Result Comment: Siemens Advia Centaur XP Toxo IgG Chemiluminescence Performed By: #### PTPTT, ALB, BILI, CA, CHM7, ENZ3, ALCOSU, CBCDFC, A1CB, SERDRG, HBSAB, HBSAG, HCAB, TOXOG, HAABG, HBCBG, HIV, EBVG, HSVG12, SYPHG, RUBOIB, VZISB, CMVG, QFTB, AFPTMR, THCCMS #### [facility] [address] [place] [address] #### HLAB #### [facility] (DEFAULT) [address] [place] [address] HEP A AB, (IGG+IGM) Collected: 09/15/2017 Status: F Source: [facility] 12:03 PM [facility] REPOSITORY TYPE CODE TESTS RESULT OUT OF RANGE REFERENCE UNITS LAB HAABG Negative Abnormal Hep A POSITIVE Ab, (IgG+IgM) Performed By: #### PTPTT, ALB, BILI, CA, CHM7, ENZ3, ALCOSU, CBCDFC, A1CB, SERDRG, HBSAB, HBSAG, HCAB, TOXOG, HAABG, HBCBG, HIV, EBVG, HSVG12, SYPHG, RUBOIB, VZISB, CMVG, QFTB, AFPTMR, THCCMS #### [facility] [address] [place] [address] [address] [place] [address] #### HLAB #### [facility] (DEFAULT) [address] [place] [address] HEP B CORE AB,TOTAL Collected: 09/15/2017 Status: F Source: [facility] (IGG+IGM) 12:03 PM [facility] REPOSITORY TYPE CODE TESTS RESULT OUT OF RANGE REFERENCE UNITS LAB HBCBG Negative Normal Hep B Negative Core Ab,Total (IgG+IgM) Result Comment: Results inconsistent with the patient's previous results Performed By: #### PTPTT, ALB, BILI, CA, CHM7, ENZ3, ALCOSU, CBCDFC, A1CB, SERDRG, HBSAB, HBSAG, HCAB, TOXOG, HAABG, HBCBG, HIV, EBVG, HSVG12, SYPHG, RUBOIB, VZISB, CMVG, QFTB, AFPTMR, THCCMS #### [facility] [address] [place] [address] #### HLAB #### [facility] (DEFAULT) 410 [place] [address] HIV-1/HIV-2 AB WITH P24 Collected: 09/15/2017 Status: F Source: [facility] 12:03 [facility] REPOSITORY TYPE CODE TESTS RESULT OUT OF REFERENCE UNITS RANGE LAB HIV NONREACTIVE NONREACTIVE HIV-1/HIV-2 AB with p24 Antige Performed By: #### PTPTT, ALB, BILI, CA, CHM7, ENZ3, ALCOSU, CBCDFC, A1CB, SERDRG, HBSAB, HBSAG, HCAB, TOXOG, HAABG, HBCBG, HIV, EBVG, HSVG12, SYPHG, RUBOIB, VZISB, CMVG, QFTB, AFPTMR, THCCMS #### [facility] [address] [place] [address] #### HLAB #### [facility] (DEFAULT) 410 [place] [address] EBV VCA IGG ANTIBODY Collected: 09/15/2017 Status: F Source: [facility] 12:03 [facility] REPOSITORY TYPE CODE TESTS RESULT OUT OF RANGE REFERENCE UNITS LAB EBVG Negative Abnormal EBV VCA IgG POSITIVE Antibody Performed By: #### PTPTT, ALB, BILI, CA, CHM7, ENZ3, ALCOSU, CBCDFC, A1CB, SERDRG, HBSAB, HBSAG, HCAB, TOXOG, HAABG, HBCBG, HIV, EBVG, HSVG12, SYPHG, RUBOIB, VZISB, CMVG, QFTB, AFPTMR, THCCMS #### [facility] [address] [place] [address] #### HLAB #### [facility] (DEFAULT) [address] [address] HSV I&II IGG ANTIBODY Collected: 09/15/2017 Status: F Source: [facility] 12:03 PM [facility] REPOSITORY TYPE CODE TESTS RESULT OUT OF RANGE REFERENCE UNITS LAB HSVG1 Negative Abnormal HSV 1 IgG POSITIVE Antibody LAB HSVG2 Negative HSV 2 IgG Negative Antibody Performed By: #### PTPTT, ALB, BILI, CA, CHM7, ENZ3, ALCOSU, CBCDFC, A1CB, SERDRG, HBSAB, HBSAG, HCAB, TOXOG, HAABG, HBCBG, HIV, EBVG, HSVG12, SYPHG, RUBOIB, VZISB, CMVG, QFTB, AFPTMR, THCCMS #### [facility] [address] [place] [address] #### HLAB #### [facility] (DEFAULT) 410 [place] [address] SYPHILIS IGG AB WITH Collected: 09/15/2017 Status: F Source: [facility] REFLEX RPR 12:03 [facility] REPOSITORY TYPE CODE TESTS RESULT OUT OF REFERENCE UNITS RANGE LAB SYPHG Negative Syphilis IgG Negative AB with Reflex RP Performed By: #### PTPTT, ALB, BILI, CA, CHM7, ENZ3, ALCOSU, CBCDFC, A1CB, SERDRG, HBSAB, HBSAG, HCAB, TOXOG, HAABG, HBCBG, HIV, EBVG, HSVG12, SYPHG, RUBOIB, VZISB, CMVG, QFTB, AFPTMR, THCCMS #### [facility] [address] [place] [address] #### HLAB #### [facility] (DEFAULT) [address] [address] MEASLES RUBEOLA Collected: 09/15/2017 Status: F Source: [facility] IMMUNE STATUS AB 12:03 PM [facility] REPOSITORY TYPE CODE TESTS RESULT OUT OF REFERENCE UNITS RANGE LAB RUBOIS POSITIVE Measles POSITIVE Rubeola Immune Status Result Comment: A positive result indicates either prior exposure to the virus or response to vaccination. The presence of Rubeola IgG suggests immunity against rubeola. LAB RUBOQ Measles Rubeola Immune >8.0 Status Result Comment: THIS IS A QUALITATIVE ASSAY. The numeric value is not necessarily indicative of the amount of anti-Measles, Mumps, Rubella, or VZV IgG antibody present. Results should be interpreted in conjunction with clinical and epidemological data. Performed By: #### PTPTT, ALB, BILI, CA, CHM7, ENZ3, ALCOSU, CBCDFC, A1CB, SERDRG, HBSAB, HBSAG, HCAB, TOXOG, HAABG, HBCBG, HIV, EBVG, HSVG12, SYPHG, RUBOIB, VZISB, CMVG, QFTB, AFPTMR, THCCMS #### [facility] [address] [place] [address] #### HLAB #### [facility] (DEFAULT) [address] [address] VARICELLA IMMUNE Collected: 09/15/2017 Status: F Source: [facility] STATUS IGG ANTIBODY 12:03 PM [facility] REPOSITORY TYPE CODE TESTS RESULT OUT OF REFERENCE UNITS RANGE LAB VZIS POSITIVE Varicella POSITIVE Immune Status IgG An Result Comment: Prior exposure to the varicella zoster virus may cause measurable varicella zoster IgG antibody. LAB VZISQ Varicella Immune Status IgG 7.8 In Result Comment: THIS IS A QUALITATIVE ASSAY. The numeric value is not necessarily indicative of the amount of anti-Measles, Mumps, Rubella, or VZV IgG antibody present. Results should be interpreted in conjunction with clinical and epidemological data. Performed By: #### PTPTT, ALB, BILI, CA, CHM7, ENZ3, ALCOSU, CBCDFC, A1CB, SERDRG, HBSAB, HBSAG, HCAB, TOXOG, HAABG, HBCBG, HIV, EBVG, HSVG12, SYPHG, RUBOIB, VZISB, CMVG, QFTB, AFPTMR, THCCMS #### [facility] [address] [place] [address] [facility] [address] [place] [address] #### HLAB #### [facility] (DEFAULT) [address] [address] CMV IGG ANTIBODY Collected: 09/15/2017 Status: F Source: [facility] 12:03 PM [facility] REPOSITORY TYPE CODE TESTS RESULT OUT OF RANGE REFERENCE UNITS LAB CMVG Negative Abnormal CMV IgG POSITIVE Antibody Performed By: #### PTPTT, ALB, BILI, CA, CHM7, ENZ3, ALCOSU, CBCDFC, A1CB, SERDRG, HBSAB, HBSAG, HCAB, TOXOG, HAABG, HBCBG, HIV, EBVG, HSVG12, SYPHG, RUBOIB, VZISB, CMVG, QFTB, AFPTMR, THCCMS #### [facility] [id number] [place] [address] #### HLAB #### [facility] (DEFAULT) [address] [address] QUANTIFERON TB GOLD IN Collected: 09/15/2017 Status: F Source: [facility] 12:03 PM [facility] REPOSITORY TYPE CODE TESTS RESULT OUT OF REFERENCE UNITS RANGE LAB QFT Negative M. Tuberculosis by Negative Quantiferon LAB QFTUB2 IU/mL M. tuberculosis 0.00 Interferon Amari Result Comment: The M. Tuberculosis antigen levels cannot be correlated to stage or degree of infection, response to therapy or likelihood for progression to active disease. Results from QuantiFERON TB Gold must be used in conjunction with individual epidemiological history, current medical status, and results of other diagnostic evaluation. Performed By: #### PTPTT, ALB, BILI, CA, CHM7, ENZ3, ALCOSU, CBCDFC, A1CB, SERDRG, HBSAB, HBSAG, HCAB, TOXOG, HAABG, HBCBG, HIV, EBVG, HSVG12, SYPHG, RUBOIB, VZISB, CMVG, QFTB, AFPTMR, THCCMS #### [facility] [address] [place] [address] [facility] [address] [place] [address] #### HLAB #### [facility] (DEFAULT) [address] [place] [address] ALPHAFETOPROTEIN TUMOR Collected: 09/15/2017 Status: F Source: [facility] MARKER 12:03 [facility] REPOSITORY TYPE CODE TESTS RESULT OUT OF REFERENCE UNITS RANGE LAB AFPTMR <8.5 ng/mL Alphafetoprotein Tumor Marker 2.5 Performed By: #### PTPTT, ALB, BILI, CA, CHM7, ENZ3, ALCOSU, CBCDFC, A1CB, SERDRG, HBSAB, HBSAG, HCAB, TOXOG, HAABG, HBCBG, HIV, EBVG, HSVG12, SYPHG, RUBOIB, VZISB, CMVG, QFTB, AFPTMR, THCCMS #### [facility] [id number] [place] [address] [address] [place] [address] #### HLAB #### [facility] (DEFAULT) [address] [address] THC GCMS CONFIRMATION Collected: 09/15/2017 Status: F Source: [facility] 12:03 [facility] REPOSITORY TYPE CODE TESTS RESULT OUT OF REFERENCE UNITS RANGE LAB THCCMS 5 ng/mL THC GCMS Confirmation NONE DETECTED Result Comment: This Gas Chromatography Mass Spectrometry (GC/MS) test was developed and its performance characteristics determined by Toxicology Laboratory at [facility]. It has not been cleared or approved by the FDA. The laboratory is regulated under CLIA as qualified to perform high-complexity testing. This test is used for clinical purposes. It should not be regarded as investigational or for research. Performed By: #### PTPTT, ALB, BILI, CA, CHM7, ENZ3, ALCOSU, CBCDFC, A1CB, SERDRG, HBSAB, HBSAG, HCAB, TOXOG, HAABG, HBCBG, HIV, EBVG, HSVG12, SYPHG, RUBOIB, VZISB, CMVG, QFTB, AFPTMR, THCCMS #### [facility] [address] [place] [address] [facility] [address] [place] [address] #### HLAB #### [facility] (DEFAULT) [address] [place] [address] VOLUME MEASURED Collected: 09/15/2017 Status: F Source: [facility] 12:03 PM [facility] REPOSITORY TYPE CODE TESTS RESULT OUT OF REFERENCE UNITS RANGE LAB VOL 0-6000 mL Volume 2417 LAB INT hrs Interval 24 Performed By: #### JETHROB, [id number] #### [facility] [address] [place] [address] [facility] [address] [place] [address] PROTEIN/CREAT Collected: 09/15/2017 Status: F Source: [facility] RATIO,URINE, 24 HR 12:03 PM [facility] REPOSITORY TYPE CODE TESTS RESULT OUT OF RANGE REFERENCE UNITS LAB CREU1 mg/dL 47.00 Creatinine, urine mg/dL LAB CREU2 0.6-1.8 g/24 hrs 1.14 *CREATININE, UR, 24HR LAB PROT3 mg/dL PROTEIN, 26 urine mg/dL LAB PROT4 40-225 mg/24 hrs High Protein, 628 urine 24 hr LAB PRCR2 mg prot/mg crea 0.553 PROT/CREAT RATIO Performed By: #### VOLB, [id number] #### [facility] [address] [place] [address] [facility] [address] [place] [address] ALLERGIES ALLERGIES DATE TYPE / CODE NAME / CODE REACTION SEVERITY SOURCE 07/21/2018 Drug Iodinated Shortness of Unknown [place] Allergy/416 Contrast- Oral breath Community 396316([facility] ED CT) Dye/[id number](R Repository XNORM) Drug/489962 Contrast Dye [id number] Severe Hinduism 003([facility] CT) System Repository ENCOUNTERS ENCOUNTERS ADMIT/DISCHARGE ACCOUNT NUMBER ADMITTING ENCOUNTER LOCATION SOURCE CLASS 08/14/2018 [id number] Ambulatory [facility] ng:WC Repository 08/06/2018 [id number] Ambulatory Building:[address] Repository 08/06/2018 [id number] Ambulatory Building:[address] Repository 07/27/2018 [id number] Ambulatory [facility] ng:OMD Repository 07/23/2018 [id number] Ambulatory [facility] ng:MEDOUTP Repository 07/23/2018 [id number] Ambulatory Building:[address] Repository 07/23/2018 [id number] Ambulatory Building:[address] Repository 07/22/2018/ [id number] [facility] Building:[place] [address] [facility] Encounter oom: 1115Bed: [facility] Repository 07/22/2018 [id number] Ambulatory Building:[address] Repository 07/22/2018 [id number] Ambulatory Building:[address] Repository 07/22/2018 [id number] Ambulatory Building:[address] Repository 07/22/2018 [id number] Ambulatory Building:[address] Repository 07/22/2018 [id number] Ambulatory Building:[address] Repository 07/22/2018 [id number] Ambulatory Building:[facility] Repository 07/22/2018 [id number] Ambulatory Building:[facility] Repository 07/22/2018 [id number] Ambulatory BMSBuilding:[facility] [place] [facility] Repository 07/21/2018/ [id number] Ambulatory [address] ng:WC Repository 07/21/2018 [id number] Ambulatory [facility] ng:[facility] Repository 07/21/2018 [id number] Ambulatory [address] [place] [address] Repository 07/17/2018 [id number] Ambulatory Building:S[facility]HY [facility] Repository 07/16/2018 [id number] Ambulatory Building:S93HY [facility] Repository 07/15/2018 [id number] Ambulatory Building:S93HY [facility] Repository 07/14/2018 [id number] Inpatient Building:S93HY [facility] Repository 07/13/2018 [id number] Inpatient Building:S93HY [facility] Repository 07/10/2018 [id number] Inpatient Building:S93HY [facility] Repository 07/09/2018 [id number] [facility] Repository 07/09/2018 [id number] [facility]patient [facility] Repository 07/08/2018 [id number] [facility] 07/07/2018 [id number] [facility] Repository 07/07/2018 [id number] IHISSPATRICIA, Ambulatory Building:D2NEN [facility] Repository 06/27/2018/ [id number] SHARON, Inpatient Building:C16CR [facility] 018 PHILICIA S Encounter oom: 1629Bed: [facility] Repository 06/22/2018 [id number] Ambulatory Building:[facility] Repository 06/22/2018 [id number] Ambulatory Building:[facility] Repository 06/22/2018 [id number] Ambulatory Building:[facility] Repository 06/22/2018 [id number] Ambulatory Building:[facility] Repository 06/20/2018/ [id number] Helene, Ambulatory Hinduism Hindu[address] Regional ng:[facility] Repository 06/20/2018 [id number] Ambulatory [address] [place] [address] Repository 06/19/2018 [id number] Ambulatory [address] [place] [address] Repository 06/19/2018/ [id number] Helene, Ambulatory Hinduism Hinduism 018 [facility] Regional ng:[facility] Repository 06/19/2018 [id number] Ambulatory [address] [place] [address] Repository 06/05/2018 [id number] Ambulatory Building:[facility] Repository 04/30/2018/ [id number] Azul Castellanos [facility] L [facility] ng:[place] [employer] om: Room 2 System Repository 04/21/2018 [id number] [facility] Repository 04/17/2018/ [id number] Ulysses, Ambulatory Hinduism Hinduism 018 [facility] Regional ng:[facility] Repository 04/17/2018 [id number] Ambulatory [address] [place] [address] Repository 04/16/2018 [id number] Ambulatory Building:FLINE [facility] Repository 04/16/2018 [id number] Ambulatory Building:BS1UR [facility] Repository 04/16/2018 [id number] Ambulatory Building:CT1CT [facility] Repository 04/16/2018 [id number] Ambulatory Building:CT1CT [facility] Repository 04/08/2018/ [id number] Maverick Luna Ambulatory Hinduism Hinduism 018 [facility] Regional ng:[facility] Repository 04/08/2018 [id number] Ambulatory [address] [place] [address] Repository 03/31/2018/ [id number] Emanuel Azul Ambulatory [facility] Hinduism 018 L [facility] ng:[employer] om: Room 2 System Repository 03/16/2018 [id number] Ambulatory [facility] ng:OLS.AVEB Repository 03/10/2018 [id number] [facility] Repository 03/09/2018 [id number] Ambulatory [facility] ng:OLS.AVEB Repository 03/05/2018/ [id number] Srini Rodríguez Ambulatory [facility] 018 [facility] ng:[facility] Repository 03/05/2018 [id number] Ambulatory [address] [place] [address] Repository 03/02/2018 [id number] Ambulatory [facility] ng:OLS.AVEB Repository 02/24/2018 [id number] Ambulatory Building:[facility] Repository 02/23/2018 [id number] Ambulatory [facility] ng:OLS.AVEB Repository 02/17/2018 [id number] Ambulatory [facility] ng:OLS.AVEB Repository 02/16/2018/ [id number] BONNIE ARAUZ Ambulatory Building:[address] RRoom: [facility] Repository 02/13/2018/ [id number] [place] [address] lding:[facility] Repository 02/11/2018 [id number] Ambulatory [facility] ng:LAB Repository 02/10/2018 [id number] Ambulatory [facility] ng:OLS.AVEB Repository 02/10/2018 [id number] Ambulatory Building[facility] Repository 02/10/2018 [id number] Ambulatory Building:[address] Repository 02/09/2018 [id number] [facility] ng:OLS.AVEB Repository 02/02/2018/ [id number] Ambulatory [address] ng:[facility] Repository 01/31/2018 [id number] Ambulatory 9509 [facility] Repository 01/29/2018/ [id number] Ambulatory Susannah Susannah 018 [facility] ng:HHLAB Repository 01/28/2018 [id number] Ambulatory Building:[facility]SP[facility] Repository 01/28/2018 [id number] Ambulatory Building:[facility] Repository 01/26/2018 [id number] Ambulatory Building:GHN[facility] Repository 01/21/2018 [id number] Ambulatory Building:[facility] Repository 01/16/2018/ [id number] [facility] Regional ng:[facility] Repository 01/13/2018/ [id number] [facility] Building:[place] [address] KM LONNY Encounter oom: 1179Bed: [facility] Repository 01/13/2018 [id number] Ambulatory [address] [place] [address] Repository 01/12/2018/ [id number] Hiral, Emergency Hinduism Hinduism 018 [facility] ng: EDRoom: [facility] Repository 01/12/2018 [id number] Ambulatory [address] [place] [address] Repository 01/08/2018/ [id number] Ambulatory Samariran Hinduism 018 [facility] ng:[facility] Repository 01/08/2018/ [id number] Ambulatory [facility] Hinduism 018 [facility] Regional ng:[facility] Repository 12/31/2017/ [id number] [facility]18 [facility] ng:[facility] Repository 12/26/2017/ [id number] SRINI MAURICIO Inpatient Building:R9ERo [place] [address] J Encounter om: 0920Bed: [facility] Repository 12/25/2017/ [id number] Sara, Emergency Hinduism Hinduism 018 Radames A [facility] Regional ng: EDRoom: Health System Repository 12/22/2017/ [id number] EmanuelAzul goldberg Ambulatory Hinduism Hinduism 018 L [facility] Regional ng:[facility] System Repository 12/22/2017/ [id number] EmanuelAzul Ambulatory [facility] 018 L [facility] Regional ng:[facility] oom: Room 2 System Repository 12/15/2017/ [id number] Ambulatory [facility] Hinduism 018 [facility] Regional ng:[facility] Repository 12/10/2017/ [id number] Enoch Duckworth Inpatient Hinduism Hinduism 018 Encounter [facility] Regional ng:[facility] m: 0306Bed: 01 System Repository 12/08/2017/ [id number] Hiral, Emergency Hinduism Hinduism 018 Saulius [facility] Regional ng: EDRoom: [facility] Repository 12/05/2017/ [id number] Ulysses, Ambulatory Hinduism Hinduism 018 Kyle [facility] Regional ng:[facility] Repository 11/27/2017/ [id number] EmanuelAzul Ambulatory Hinduism Hinduism 018 L [facility] Regional ng:[facility] Repository 11/27/2017/ [id number] EmanuelAzul Ambulatory [facility] Hinduism 018 L [facility] 2 System Repository 11/21/2017/ [id number] EmanuelAzul Ambulatory Hinduism Hinduism 018 L [facility] Regional ng:[facility] Repository 11/21/2017/ [id number] Mago Dumont Ambulatory Hinduism Hinduism 018 M [facility] Regional ng:[facility] Repository 11/14/2017/ [id number] Emanuel Azul Ambulatory [facility] Hinduism 018 L [facility] Regional ng:[facility] oom: Room 1 System Repository 11/06/2017 [id number] Ambulatory Building:[facility] Repository 11/06/2017 [id number] Ambulatory Building:[facility] Repository 11/03/2017/ [id number] Emanuel, Azul Ambulatory Hinduism Hinduism 018 [facility] Repository 11/03/2017/ [id number] Emanuel, Azul Ambulatory [facility] Hinduism 018 L [facility] Regional ng:[facility] oom: Room 1 System Repository 10/20/2017/ [id number] EFRAIN, Ambulatory Building:[place] [address] [facility] SRoom: [facility] Repository 10/16/2017 [id number] Ambulatory Building:[address] Repository 10/16/2017 [id number] Ambulatory Building:[address] Repository 10/16/2017 [id number] Ambulatory Building:[facility] Repository 10/16/2017 [id number] Ambulatory Building:[facility] Repository 09/15/2017 [id number] Ambulatory Building:[address] Repository 09/15/2017 [id number] Ambulatory Building:[facility] Repository 09/02/2017 [id number] Ambulatory Building:[facility] Repository 09/01/2017 [id number] Ambulatory Building:[address] Repository PAYERS PAYERS ENCOUNTER GUARANTOR PAYER SUBSCRIBER SOURCE 08/14/2018 ALYCIA Davalos [id number] CR Insurance:MEDICARE MURPHYDOB: [address] PART A BPolicy [id number] Hospital 16549Ggp: (419) Number: Repository [phone] () [id number] Date:2018-07-20 08/14/2018 Secondary ALYCIA H [place] Insurance:MEDICAL MURPHYDOB: [facility] [id number] Hospital Number: Repository [id number] Date:0442-20-05BJ[address] [address]KD: 08/14/2018 Tertiary NOT GIVENUNK [place] Insurance:SELF PAY [facility] Number: Effective Repository Date:2018-08-04 08/06/2018 KIM Louis Primary KIM Louis [facility] MURPHYDOB: Insurance:MEDICARE A MURPHYDOB: [place] [id number] AND BPolicy Number: [id number] [facility] [id number] Date:6056-92-26Yyrd [address] [place] [address] Repository 53634Men: (831) Name:CARE [id number]: () [phone] (HP) 08/06/2018 Secondary ALYCIA H [facility] Insurance:MMOPolicy MURPHYDOB: [place] Number: [id number] [facility] [id number] Date:0308-37-96Oess [address] [place] [address] Repository Name:MANAGED CARE [id number]: () 08/06/2018 Tertiary KIM Louis [facility] Insurance:MEDICAIDPol MURPHYDOB: [place] icy Number: [id number] [facility] [id number] Date:3255-27-48Zesm [address] [place] [address] Repository Name:CAID [id number]: () 08/06/2018 KIM Louis Primary KIM Louis [facility] MURPHYDOB: Insurance:MEDICARE A MURPHYDOB: [place] [id number] AND BPolicy Number: [id number] [facility] [id number] [address] [place] [address] Date:1655-40-92Utuk [address] [place] [address] Repository 58707Tcf: (087) Name:CARE [id number]: () [phone] (HP) 08/06/2018 Secondary ALYCIA Castellon [facility] Insurance:MMOPolicy MURPHYDOB: [place] Number: [id number] [facility] [id number] [address] [place] [address] Date:3955-83-82Loav [address] [place] [address] Repository Name:MANAGED CARE [id number]: () 08/06/2018 Tertiary KIM Louis [facility] Insurance:MEDICAIDPol MURPHYDOB: [facility] Number: [id number] [facility] [id number] Date:3865-69-39Hrey [address] [place] [address] Repository Name:CAID [id number]: () 07/27/2018 ALYCIA H Primary KIM Davalos [id number] CR Insurance:MEDICARE MURPHYDOB: [address] PART A [facility] [id number] Hospital 01682Fxd: 419) Number: Repository [phone] () [id number] Date:2018-07-20 07/27/2018 Secondary ALYCIA Ravinder [place] Insurance:MEDICAL MURPHYB: [facility] [id number] Hospital Number: Repository [id number] Date:5913-01-78KK[address] [address]QG: 07/27/2018 Tertiary NOT GIVENUNK [place] Insurance:SELF PAY [facility] Number: Effective Repository Date:2018-07-20 07/23/2018 ALYCIA H Primary KIM Louis [place] [id number] CR Insurance:MEDICARE MURPHYDOB: [address] A [facility] [id number] Hospital 18217Udh: (419) Number: Repository [phone] () [id number] Date:2018-07-21 07/23/2018 Secondary ALYCIA H [place] Insurance:MEDICAL MURPHYDOB: [facility] [id number] Hospital Number: Repository [id number] Date:1916-88-07CD [address] [place] [address]TC: 07/23/2018 Tertiary NOT GIVENUNK [place] Insurance:SELF PAY [facility] Number: Effective Repository Date:2018-07-21 07/23/2018 KIM Louis Primary KIM Louis [facility] MURPHYDOB: Insurance:MEDICARE A SANTANADOB: [place] [id number] AND BPolicy Number: [id number] [facility] [id number] Date:6213-85-81Mynl [address] [place] [address] Repository 99962Jsp: 419) Name:CARE [id number]: (HP) [phone] (HP) 07/23/2018 Secondary [facility] Insurance:MMOPolicy [facility] [place] Number: [id number] [facility] [id number] Date:3622-23-00Ijkw [address] [place] [address] Repository Name:MANAGED CARE [id number]: (HP) 07/23/2018 Tertiary KIM Louis [facility] Insurance:MEDICAIDPol [facility]: [place] icy Number: [id number] [facility] [id number] Date:0280-35-86Sjea [address] [place] [address] Repository Name:CAID [id number]: (HP) 07/23/2018 KIM Louis Primary KIM Louis [facility] MURPHYDOB: Insurance:MEDICARE A SANTANADOB: [place] [id number] AND BPolicy Number: [id number] [facility] [id number] Date:9885-41-06Xxfi [address] [place] [address] Repository 05584Fmc: 419) Name:CARE 16421Bhq: (HP) [phone] (HP) 07/23/2018 Secondary [facility] Insurance:MMOPolicy MURPHYDOB: University Number: [id number] [facility] [id number] Date:7213-28-63Ahhh [address] [place] [address] Repository Name:MANAGED CARE [id number]: () 07/23/2018 Tertiary KIM Louis [facility] Insurance:MEDICAIDPol MURPHYDOB: [place] icy Number: [id number] [facility] [id number] Date:9272-55-75Sths [address] [place] [address] Repository Name:[facility] 00520Lcr: () 07/22/2018 KIM M Primary KIM Louis [facility] MURPHYDOB: Insurance:MEDICARE A SANTANADOB: [place] [id number] AND BPolicy Number: [id number] [facility] [id number] Date:7814-41-01Fyun [address] [place] [address] Repository 55409Pgk: (558) Name:CARE [id number]: () [phone] () 07/22/2018 Secondary [facility] Insurance:MMOPolicy SANTANADOB: University Number: [id number] [facility] [id number] Date:8954-99-39Nezk [address] [place] [address] Repository Name:MANAGED CARE 86165Kdw: () 07/22/2018 Tertiary KIM Louis [facility] Insurance:MEDICAIDPol MURPHYDOB: [place] icy Number: [id number] [facility] [id number] Date:8500-23-34Iazw [address] [place] [address] Repository Name:CAID 15319Nih: () 07/22/2018 KIM M Primary KIM Louis [facility] MURPHYDOB: Insurance:MEDICARE A MURPHYDOB: [place] [id number] AND BPolicy Number: [id number] [facility] [id number] Date:4929-14-22Iazw [address] [place] [address] Repository 85926Zpe: (419) Name:CARE 72100Rzy: (HP) [phone] (HP) 07/22/2018 Secondary ALYCIA H [facility] Insurance:MMOPolicy ALEXB: University Number: [id number] [facility] [id number] Date:7135-09-31Ccia [address] [place] [address] Repository Name:MANAGED CARE [id number]: (HP) 07/22/2018 Tertiary KIM Louis [facility] Insurance:MEDICAIDPol SANTANAB: [place] icy Number: [id number] [facility] [id number] Date:2072-52-26Fbof [address] [place] [address] Repository Name:CAID 63846Roq: (HP) 07/22/2018 [facility] ALEXB: Insurance:MEDICARE A ALEXB: [place] [id number] AND BPolicy Number: [id number] [facility] [id number] Date:3961-70-70Hbbz [address] [place] [address] Repository 47750Tkv: (419) Name:CARE 24726Xlb: (HP) [phone] (HP) 07/22/2018 Secondary ALYCIA H [facility] Insurance:MMOPolicy ALEXB: University Number: [id number] [facility] [id number] Date:1794-20-68Uhbk [address] [place] [address] Repository Name:MANAGED CARE [id number]: (HP) 07/22/2018 Tertiary KIM Louis [facility] Insurance:MEDICAIDPol ALEXB: [place] icy Number: [id number] [facility] [id number] Date:6329-72-71Bfpe [address] [place] [address] Repository Name:MARITZA 52789Ldu: (HP) 07/22/2018 KIM Louis Primary KIM Louis [facility] MURPHYDOB: Insurance:MEDICARE A MURPHYDOB: [place] [id number] AND BPolicy Number: [id number] [facility] [id number] Date:8528-84-13Rgov [address] [place] [address] Repository 99656Cqq: (999) Name:CARE 92860Sxg: (HP) [phone] (HP) 07/22/2018 Secondary [facility] Insurance:MMOPolicy MURPHYDOB: University Number: [id number] [facility] [id number] Date:6124-61-78Ojso [address] [place] [address] Repository Name:MANAGED CARE 83850Cju: (HP) 07/22/2018 Tertiary KIM M [facility] Insurance:MEDICAIDPol MURPHYDOB: [place] icy Number: [id number] [facility] [id number] Date:3137-20-94Wkpe [address] [place] [address] Repository Name:MARITZA [id number]: (HP) 07/22/2018 KIM Louis Primary KIM Louis [facility] MURPHYDOB: Insurance:MEDICARE A MURPHYDOB: [place] [id number] AND BPolicy Number: [id number] [facility] [id number] Date:6318-01-72Iydf [address] [place] [address] Repository 72708Bca: (151) Name:CARE 54740Mkm: (HP) [phone] (HP) 07/22/2018 Secondary [facility] Insurance:MMOPolicy MURPHYDOB: University Number: [id number] [facility] [id number] Date:1216-14-83Ojmw [address] [place] [address] Repository Name:MANAGED CARE [id number]: () 07/22/2018 Tertiary KIM Louis [facility] Insurance:MEDICAIDPol MURPHYDOB: University icy Number: [id number] [facility] [id number] Date:1102-37-39Knve [address] [place] [address] Repository Name:[facility] 98576Vcm: () 07/22/2018 KIM M Primary KIM Louis [facility] MURPHYDOB: Insurance:MEDICARE A SANTANADOB: [place] [id number] AND BPolicy Number: [id number] [facility] [id number] Date:6899-82-87Yhbh [address] [place] [address] Repository 23888Oxx: (811) Name:CARE 69965Pjr: (HP) [phone] (HP) 07/22/2018 Secondary [facility] Insurance:MMOPolicy SANTANADOB: University Number: [id number] [facility] [id number] Date:3833-98-22Kmjz [address] [place] [address] Repository Name:MANAGED CARE 74897Rxz: (HP) 07/22/2018 Tertiary KIM Louis [facility] Insurance:MEDICAIDPol MURPHYDOB: [place] icy Number: [id number] [facility] [id number] Date:1539-66-89Laqy [address] [place] [address] Repository Name:MARITZA [id number]: (HP) 07/22/2018 KIM M Primary KIM Louis [facility] MURPHYDOB: Insurance:MEDICARE A MURPHYDOB: [place] [id number] AND BPolicy Number: [id number] [facility] [id number] Date:9141-13-07Oogm [address] [place] [address] Repository 45141Hbu: 419) Name:CARE 53110Kfz: (HP) [phone] (HP) 07/22/2018 Secondary ALYCIA H [facility] Insurance:MMOPolicy ALEXB: University Number: [id number] [facility] [id number] Date:8544-56-35Spnb [address] [place] [address] Repository Name:MANAGED CARE [id number]: () 07/22/2018 Tertiary KIM Louis [facility] Insurance:MEDICAIDPol SANTANAB: [place] icy Number: [id number] [facility] [id number] Date:0289-37-67Ocpf [address] [place] [address] [facility] 89301Rtp: (HP) 07/22/2018 [facility]IM [facility] SANTANADOB: Insurance:MEDICARE A ALEXB: [place] [id number] AND BPolicy Number: [id number] [facility] [id number] Date:4524-58-08Kxol [address] [place] [address] Repository 66489Vwp: (419) Name:CARE 54180Hob: (HP) [phone] (HP) 07/22/2018 Secondary [facility] Insurance:MMOPolicy SANTANADOB: University Number: [id number] [facility] [id number] Date:6043-62-12Rxdo [address] [place] [address] Repository Name:MANAGED CARE [id number]: (HP) 07/22/2018 Tertiary KIM Louis [facility] Insurance:MEDICAIDPol SANTANADOB: [place] icy Number: [id number] [facility] [id number] [address] [place] [address] Date:3799-46-48Fcmg[address] Repository Name:MARITZA 93454Knn: () 07/22/2018 ALYCIA Castellon Primary KIM Davalos [id number] CR Insurance:MEDICARE MURPHYDOB: [address] PART A [facility] [id number] Hospital 99743Gft: 419) Number: Repository [phone] () [id number] Date:2018-07-20 07/22/2018 Secondary ALYCIA H [place] Insurance:MEDICAL MURPHYDOB: [facility] [id number] Hospital Number: Repository [id number] Date:0442-62-80PE [address] [address]JX: 07/22/2018 Tertiary [place] GIVENUNK [place] Insurance:SELF PAY [facility] Number: Effective Repository Date:2018-07-22 07/21/2018 ALYCIA H Primary KIM Davalos [id number] CR Insurance:MEDICARE MURPHYDOB: [address] PART A [facility] [id number] Hospital 15466Qcy: 419) Number: Repository [phone] () [id number] Date:2018-07-20 07/21/2018 Secondary ALYCIA H [place] Insurance:MEDICAL MURPHYDOB: [facility] [id number] Hospital Number: Repository [id number] Date:8068-60-35XW [address] [place] [address]HT: 07/21/2018 Tertiary NOT GIVENUNK [place] Insurance:SELF PAY [facility] Number: Effective Repository Date:2018-07-20 07/21/2018 ALYCIA H Primary KIM Davalos [id number] CR Insurance:MEDICARE MURPHYDOB: [address] PART A [facility] [id number] Hospital 53544Zde: (419) Number: Repository [phone] () [id number] Date:2018-07-20 07/21/2018 Secondary ALYCIA H [place] Insurance:MEDICAL MURPHYDOB: [facility] [id number] Hospital Number: Repository [id number] Date:8905-14-95IB[address] [address]UH: 07/21/2018 Tertiary [facility] [place] Insurance:SELF PAY [facility] Number: Effective Repository Date:2018-07-20 07/21/2018 [facility] MURPHYDOB: Insurance[facility]MedicarePol [facility] [id number] icy Number: [id number] [facility] [id number] Date:Plan Name:[address] [id number]: A [id number]: (YB) () 07/21/2018 Secondary [facility] Insurance:MedicarePol KAILUADOB: [facility] icy Number: [id number] Repository [id number] Date:Plan Name:[address] B [id number]: () 07/21/2018 [facility] Insurance:Medical MURPHYDOB: [facility] [id number] Repository Number: [id number] Date:Plan Name:Health 07/21/2018 [facility] Insurance:Medical MURPHYDOB: [facility] [id number] Repository Number: [id number] Date:Plan Name:Health [facility]/17/[facility] M[facility]: Insurance:MEDICARE A MURPHYDOB: [place] [id number] AND BPolicy Number: [id number] [facility] [id number] [address] [place] [address] Date:7206-71-61Efkt[address] Repository [address]Kse: (615) Name:CARE [id number]: (HP) [phone] (HP) 07/17/2018 Secondary [facility] Insurance:MMOPoldanay JOHNSONB: University Number: [id number] [facility] [id number] Date:3730-89-48Eaam [address] [place] [address] Repository Name:MANAGED CARE [id number]: (HP) 07/17/2018 Tertiary KIM Louis [facility] Insurance:MEDICAIDPol [facility] [place] icy Number: [id number] [facility] [id number] Date:8138-49-67Ygwn [address] [place] [address] Repository Name:MARITZA [id number]: () 07/16/2018 KIM M Primary KIM Louis [facility] MURPHYDOB: Insurance:MEDICARE A ALEXB: [place] [id number] AND BPolicy Number: [id number] [facility] [id number] Date:0763-36-00Bksj [address] [place] [address] Repository 17009Ypd: (152) Name:CARE [id number]: (HP) [phone] () 07/16/2018 Secondary [facility] Insurance:MMOPoldanay DILLONB: University Number: [id number] [facility] [id number] Date:5397-52-85Pzky [address] [place] [address] Repository Name:MANAGED CARE [id number]: () 07/16/2018 Tertiary KIM Louis [facility] Insurance:MEDICAIDPol MURPHYDOB: [place] icy Number: [id number] [facility] [id number] Date:8086-82-59Eqhw [address] [place] [address] Repository Name:MARITZA [id number]: (HP) 07/15/2018 KIM Louis Primary KIM Louis [facility] MURPHYDOB: Insurance:MEDICARE A MURPHYDOB: [place] [id number] AND BPolicy Number: [id number] [facility] [id number] Date:4814-46-24Nwur [address] [place] [address] Repository 99558Gtf: (243) Name:CARE [id number]: (HP) [phone] (HP) 07/15/2018 Secondary [facility] Insurance:MMOPolicy SANTANADOB: University Number: [id number] [facility] [id number] Date:8350-65-54Xkgd [address] [place] [address] Repository Name:MANAGED CARE 89714Vov: () 07/15/2018 Tertiary KIM Louis [facility] Insurance:MEDICAIDPol [facility] [place] icy Number: [id number] [facility] [id number] Date:6208-40-72Cxbj [address] [place] [address] Repository Name:CAID 44356Wia: () 07/14/2018 KIM Louis Primary KIM Louis [facility] MURPHYDOB: Insurance:MEDICARE A SANTANADOB: [place] [id number] AND BPolicy Number: [id number] [facility] [id number] Date:2108-99-61Rfgs [address] [place] [address] Repository 43749Dqw: (359) Name:CARE [id number]: (HP) [phone] (HP) 07/14/2018 Secondary [facility] Insurance:MMOPolicy MURPHYDOB: University Number: [id number] [facility] [id number] Date:3322-34-80Arom [address] [place] [address] Repository Name:MANAGED CARE 70668Pgz: (HP) 07/14/2018 Tertiary KIM Louis [facility] Insurance:MEDICAIDPol MURPHYDOB: [place] icy Number: [id number] [facility] [id number] Date:7249-14-06Mndh [address] [place] [address] Repository Name:MARITZA [id number]: (HP) 07/13/2018 KIM Louis Primary KIM Louis [facility] MURPHYDOB: Insurance:MEDICARE A MURPHYDOB: [place] [id number] AND BPolicy Number: [id number] [facility] [id number] Date:6045-77-64Rkbb [address] [place] [address] Repository 27772Fie: (170) Name:CARE [id number]: (HP) [phone] (HP) 07/13/2018 Secondary ALYCIA H [facility] Insurance:MMOPolicy MURPHYDOB: University Number: [id number] [facility] [id number] Date:1410-44-87Bmbs [address] [place] [address] Repository Name:MANAGED CARE [id number]: () 07/13/2018 Tertiary KIM Louis [facility] Insurance:MEDICAIDPol MURPHYDOB: [place] icy Number: [id number] [facility] [id number] Date:2278-63-71Jbce [address] [place] [address] Repository Name:RICHARDDeepa 22646Wgy: (HP) 07/10/2018 KIM Louis Primary KIM Louis [facility] MURPHYDOB: Insurance:MEDICARE A MURPHYDOB: [place] [id number] AND BPolicy Number: [id number] [facility] [id number] Date:6623-45-28Nblg [address] [place] [address] Repository 91306Fye: 036) Name:CARE [id number]: (HP) [phone] (HP) 07/10/2018 Secondary [facility] Insurance:MMOPoldanay DILLONDOB: University Number: [id number] [facility] [id number] Date:4741-84-26Xmkz [address] [place] [address] Repository Name:MANAGED CARE 70007Piv: (HP) 07/10/2018 Tertiary KIM Louis [facility] Insurance:MEDICAIDPol KAILUADOB: [place] icy Number: [id number] [facility] [id number] Date:2280-10-69Fzhi [address] [place] [address] Repository Name:CAID [id number]: () 07/09/2018 KIM Heriberto Primary KIM M [facility] MURPHYDOB: Insurance:MEDICARE A ALEXB: [place] [id number] AND BPolicy Number: [id number] [facility] [id number] Date:8957-97-52Jdku [address] [place] [address] Repository 25700Sxf: (720) Name:CARE 99802Cda: (HP) [phone] (HP) 07/09/2018 Secondary [facility] Insurance:MMOPolicy ALEXB: University Number: [id number] [facility] [id number] Date:2043-65-55Cwan [address] [place] [address] Repository Name:MANAGED CARE 79895Daa: (HP) 07/09/2018 Tertiary KIM Louis [facility] Insurance:MEDICAIDPol MURPHYDOB: [place] icy Number: [id number] [facility] [id number] Date:9981-08-70Xgpf [address] [place] [address] Repository Name:CAID [id number]: () 07/09/2018 KIM Louis Primary KIM M [facility] MURPHYDOB: Insurance:MEDICARE A MURPHYDOB: [place] [id number] AND BPolicy Number: [id number] [facility] [id number] Date:5903-30-55Wyou [address] [place] [address] Repository 76567Vaa: (148) Name:CARE [id number]: (HP) [phone] (HP) 07/09/2018 Secondary ALYCIA H [facility] Insurance:MMOPolicy SANTANADOB: University Number: [id number] [facility] [id number] Date:6728-24-75Havl [address] [place] [address] Repository Name:MANAGED CARE 40351Rsb: (HP) 07/09/2018 Tertiary KIM Louis [facility] Insurance:MEDICAIDPol SANTANADOB: [place] icy Number: [id number] [facility] [id number] Date:5204-96-26Yort [address] [place] [address] Repository Name:CAID 95870Swj: (HP) 07/08/2018 KIM Louis Primary KIM Louis [facility] MURPHYDOB: Insurance:MEDICARE A SANTANADOB: [place] [id number] AND BPolicy Number: [id number] [facility] [id number] Date:7130-48-84Jivu [address] [place] [address] Repository 53783Fhi: (798) Name:CARE [id number]: (HP) [phone] (HP) 07/08/2018 Secondary ALYCIA H [facility] Insurance:MMOPolicy MURPHYDOB: University Number: [id number] [facility] [id number] Date:6411-67-97Xwlr [address] [place] [address] Repository Name:MANAGED CARE 27134Zoy: (HP) 07/08/2018 Tertiary KIM Louis [facility] Insurance:MEDICAIDPol MURPHYDOB: [place] icy Number: [id number] [facility] [id number] Date:1598-92-40Winn [address] [place] [address] Repository Name:MARITZA [id number]: (HP) 07/07/2018 KIM Louis Primary KIM Louis [facility] MURPHYDOB: Insurance:MEDICARE A MURPHYDOB: [place] [id number] AND BPolicy Number: [id number] [facility] [id number] Date:1789-23-01Rrfl [address] [place] [address] Repository 59535Jmv: (968) Name:CARE 18350Jrs: (HP) [phone] (HP) 07/07/2018 Secondary ALYCIA H [facility] Insurance:MMOPolicy MURPHYDOB: University Number: [id number] [facility] [id number] Date:9623-86-04Swxf [address] [place] [address] Repository Name:MANAGED CARE [id number]: (HP) 07/07/2018 Tertiary KIM Louis [facility] Insurance:MEDICAIDPol MURPHYDOB: [place] icy Number: [id number] [facility] [id number] Date:7041-41-93Leyf [address] [place] [address] Repository Name:MARITZA [id number]: (HP) 07/07/2018 KIM Louis Primary KIM Louis [facility] MURPHYDOB: Insurance:MEDICARE A MURPHYDOB: [place] [id number] AND BPolicy Number: [id number] [facility] [id number] Date:0734-60-82Yqgx [address] [place] [address] Repository 92214Yqw: (211) Name:CARE 13535Ljc: (HP) [phone] (HP) 07/07/2018 Secondary ALYCIA H [facility] Insurance:MMOPolicy SANTANADOB: University Number: [id number] [facility] [id number] Date:9956-80-02Twem [address] [place] [address] Repository Name:MANAGED CARE 81557Ksq: () 07/07/2018 Tertiary KIM Louis [facility] Insurance:MEDICAIDPol MURPHYDOB: [place] icy Number: [id number] [facility] [id number] Date:0764-56-11Eagy [address] [place] [address] Repository Name:[facility] 46888Lbz: () 06/27/2018 KIM Heriberto Primary KIM M [facility] MURPHYDOB: Insurance:MEDICARE A SANTANADOB: [place] [id number] AND BPolicy Number: [id number] [facility] [id number] Date:0603-31-84Cuik [address] [place] [address] Repository 21602Izs: (959) Name:CARE 73666Mru: (HP) [phone] () 06/27/2018 Secondary [facility] Insurance:MMOPolicy SANTANADOB: University Number: [id number] [facility] [id number] Date:6152-77-89Ytli [address] [place] [address] Repository Name:MANAGED CARE 72267Gdm: () 06/27/2018 Tertiary KIM Louis [facility] Insurance:MEDICAIDPol MURPHYDOB: [place] icy Number: [id number] [facility] [id number] Date:8564-68-28Osvb [address] [place] [address] Repository Name:CAID 80823Vkw: () 06/22/2018 KIM M Primary KIM Louis [facility] MURPHYDOB: Insurance:MEDICARE A MURPHYDOB: [place] [id number] AND BPolicy Number: [id number] [facility] [id number] Date:6360-94-41Jkgu [address] [place] [address] Repository 63002Nmc: (879) Name:CARE 74960Vil: (HP) [phone] (HP) 06/22/2018 [facility] Insurance:MMOPolicy SANTANADOB: University Number: [id number] [facility] [id number] Date:0718-24-81Ulrh [address] [place] [address] Repository Name:MANAGED CARE 83228Gbo: (HP) 06/22/2018 Tertiary KIM M [facility] Insurance:MEDICAIDPol SANTANADOB: [place] icy Number: [id number] [facility] [id number] Date:7877-70-37Tkhf [address] [place] [address] Repository Name:CAID 81757Kdf: (HP) 06/22/2018 KIM Louis Primary KIM M [facility] ALEXB: Insurance:MEDICARE A [facility] [place] [id number] AND BPolicy Number: [id number] [facility] [id number] Date:7090-25-05Cdrg [address] [place] [address] Repository 89079Fga: (550) Name:CARE 54574Stm: (HP) [phone] (HP) 06/22/2018 Secondary [facility] Insurance:MMOPolicy MURPHYDOB: University Number: [id number] [facility] [id number] Date:0743-86-52Ntmu [address] [place] [address] Repository Name:MANAGED CARE 15715Mum: (HP) 06/22/2018 Tertiary KIM Louis [facility] Insurance:MEDICAIDPol MURPHYDOB: [place] icy Number: [id number] [facility] [id number] Date:7587-37-13Dljk [address] [place] [address] Repository Name:MARITZA 40230Gbg: (HP) 06/22/2018 KIM Louis Primary KIM Louis [facility] MURPHYDOB: Insurance:MEDICARE A MURPHYDOB: [place] [id number] AND BPolicy Number: [id number] [facility] [id number] Date:0305-72-05Ajiv [address] [place] [address] Repository 21628Yga: (135) Name:CARE 08704Qfk: (HP) [phone] (HP) 06/22/2018 Secondary ALYCIA H [facility] Insurance:MMOPolicy MURPHYDOB: University Number: [id number] [facility] [id number] Date:6793-91-24Hinj [address] [place] [address] Repository Name:MANAGED CARE 02037Hsk: (HP) 06/22/2018 Tertiary KIM Louis [facility] Insurance:MEDICAIDPol MURPHYDOB: [place] icy Number: [id number] [facility] [id number] Date:7473-19-82Ovtq [address] [place] [address] Repository Name:MARITZA [id number]: (HP) 06/22/2018 KIM Louis Primary KIM Louis [facility] MURPHYDOB: Insurance:MEDICARE A MURPHYDOB: [place] [id number] AND BPolicy Number: [id number] [facility] [id number] Date:5743-82-13Xljx [address] [place] [address] Repository 54765Bbv: (683) Name:CARE 48275Gzm: (HP) [phone] (HP) 06/22/2018 Secondary ALYCIA [facility] Insurance:MMOPolicy MURPHYDOB: University Number: [id number] [facility] [id number] Date:6035-13-85Wwlk[address] Repository Name:[facility] CARE 09819Nat: () 06/22/2018 [facility]ICAIDPol [facility] icy Number: [id number] [facility] [id number] Date:2876Bzvh[address] Repository Name:[facility] 31045Zgf: () 06/20/2018 [facility] ALEXB: Insurance:MedicarePol [facility] [id number] icy Number: [id number] [facility] [id number] [place] [address] Date:Plan Name:[address] [id number]: A [id number]: (TW) () 06/20/2018 [facility] Insurance:MedicarePol MURPHYDOB: [facility] icy Number: [id number] Repository [id number] Date:Plan Name:[address] B [id number]: () 06/20/2018 [facility] Insurance:Medical MURPHYDOB: [facility] [id number] Repository Number: [id number] Date:Plan Name:Health 06/20/2018 [facility] Insurance:Medical MURPHYDOB: [facility] [id number] Repository Number: [id number] Date:Plan Name:Health [facility]/19/[facility] Insurance:MedicarePol MURPHYDOB: Hospitals [id number] icy Number: [id number] Repository [facility] [address] [id number] [address] Date:Plan Name:[address] [id number]: A [id number]: (QV) (HP) 06/19/2018 [facility] Insurance:MedicarePol MURPHYDOB: Hospitals icy Number: [id number] Repository [id number] [address] Date:Plan Name:[address] B [id number]: (HP) 06/19/2018 [facility] Insurance:Medical MURPHYDOB: [facility] [id number] Repository Number: [id number] Date:Plan Name:Health 06/19/2018 [facility] MURPHYDOB: Insurance:MedicarePol MURPHYDOB: Hospitals [id number] icy Number: [id number] Repository [facility] [id number] Date:Plan Name:[address] [id number]: A [id number]: (HP) (HP) 06/19/2018 [facility] Insurance:MedicarePol MURPHYDOB: Hospitals icy Number: [id number] Repository [id number] [address] Date:Plan Name:[address] [id number]: (HP) 06/19/2018 [facility] Insurance:Medical MURPHYDOB: [facility] [id number] Repository Number: [id number] Date:Plan Name:Health 06/19/2018 [facility] Insurance:Medical MURPHYDOB: [facility] [id number] Repository Number: [id number] Date:Plan Name:Health 06/05/2018 KIM M Primary KIM M [place] [facility] MURPHYDOB: Insurance:MEDICARE A MURPHYDOB: [place] [id number] AND BPolicy Number: [id number] [facility] [id number] Date:9762-19-97Aqlg [address] [place] [address] Repository 14006Ohy: (204) Name:CARE 27002Tez: (HP) [phone] (HP) 06/05/2018 [facility] Insurance:MMOPolicy MURPHYDOB: University Number: [id number] [facility] [id number] Date:7218-01-49Nzxy [address] [place] [address] Repository Name:MANAGED CARE 15771Rox: (HP) 06/05/2018 Tertiary KIM Louis [facility] Insurance:MEDICAIDPol MURPHYB: [place] icy Number: [id number] [facility] [id number] Date:4997-08-41Byci [address] [place] [address] Repository Name:CAID [id number]: (HP) 04/21/2018 KIM M Primary KIM Louis [facility] MURPHYDOB: Insurance:MEDICARE A [facility] [place] [id number] AND BPolicy Number: [id number] [facility] [id number] [address] [place] [address] Date:9177-86-25Kdla [address] [place] [address] Repository 96488Rcy: (741) Name:CARE 92300Mpk: (HP) [phone] (HP) 04/21/2018 [facility] Insurance:MMOPolicy MURPHYDOB: University Number: [id number] [facility] [id number] Date:1712-15-14Jwop [address] [place] [address] Repository Name:MANAGED CARE 00517Foe: (HP) 04/17/2018 [facility] MURPHYDOB: Insurance:MedicarePol KAILUADOB: [facility] [id number] icy Number: [id number] [facility] [id number] Date:Plan Name:[address] [id number]: A [id number]: (HP) (HP) 04/17/2018 [facility] Insurance:MedicarePol KAILUADOB: Hospitals icy Number: [id number] Repository [id number] Date:Plan Name:[address] B [id number]: (HP) 04/17/2018 [facility] Insurance:Medical MURPHYDOB: [facility] [id number] Repository Number: [id number] Date:Plan Name:Health 04/17/2018 [facility] Insurance:Medical MURPHYDOB: [facility] [id number] Repository Number: [id number] Date:Plan Name:Health 04/16/2018 [facility]IM [facility] Insurance:MEDICARE A [facility]: [place] [id number] AND BPolicy Number: [id number] [facility] [id number] Date:7081-06-27Hftr[address] Repository [address]Tux: 419) Name:CARE [id number]: (HP) [phone] (HP) 04/16/2018 Secondary [facility] Insurance:MMOPolicy KAILUADOB: University Number: [id number] [facility] [id number] [address] [place] [address] Date:1704-84-91Zkfa [address] [place] [address] Repository Name:MANAGED CARE 61020Uox: (HP) 04/16/2018 KIM Louis Primary ALYCIA H [facility] MURPHYDOB: Insurance:MMOPoldanay DILLONDOB: [place] [id number] Number: [id number] [facility] [id number] Date:2368-16-36Bmnu [address] [place] [address] Repository 00709Jbt: (494) Name:MANAGED CARE 53866Xvs: (HP) [phone] (HP) 04/16/2018 Secondary KIM Louis [facility] Insurance:MEDICARE A MURPHYDOB: [place] AND BPolicy Number: [id number] [facility] [id number] Date:7568-38-03Vpyf [address] [place] [address] Repository Name:CARE [id number]: () 04/16/2018 KIM Heriberto Primary ALYCIA H [facility] MURPHYDOB: Insurance:MMOPoldanay DILLONDOB: [place] [id number] Number: [id number] [facility] [id number] Date:2383-34-92Fspe [address] [place] [address] Repository 97785Xqf: (419) Name:MANAGED CARE 68567Ctz: (HP) [phone] () 04/16/2018 Secondary KIM Louis [facility] Insurance:MEDICARE A MURPHYDOB: [place] AND BPolicy Number: [id number] [facility] [id number] Date:8482-52-44Buik [address] [place] [address] Repository Name:CARE [id number]: () 04/16/2018 KIM M Primary ALYCIA H [facility] MURPHYDOB: Insurance:MMOPolicherson MURPHYDOB: [place] [id number] Number: [id number] [facility] [id number] Date:4214-58-90Dtny [address] [place] [address] Repository 50561Lhq: (236) Name:MANAGED CARE [id number]: (HP) [phone] (HP) 04/16/2018 Secondary KIM M [facility] Insurance:MEDICARE A MURPHYDOB: University AND BPolicy Number: [id number] [facility] [id number] Date:8701-93-35Hopl[address] Repository Name:CARE [id number]: (HP) 04/08/2018 [facility] MURPHYDOB: Insurance:MedicarePol [facility] [id number] icy Number: [id number] Repository [facility] [id number] Date:Plan Name:[address] [id number]: A [id number]: () (HP) 04/08/2018 [facility] Insurance:MedicarePol KAILUADOB: Hospitals icy Number: [id number] Repository [id number] Date:Plan Name:[address] B [phone]: () 04/08/2018 [facility] Insurance:Medical MURPHYDOB: [facility] [id number] Repository Number: [id number] Date:Plan Name:Health 04/08/2018 [facility] Insurance:Medical MURPHYDOB: [facility] [id number] Repository Number: [id number] Date:Plan Name:Health 03/16/2018 [facility] Susannah [id number] Insurance:SELF PAY [address] [address]Ptn: (223) Number: Effective Repository [phone] (HP) Date:2018-03-16 03/10/2018 [facility] M[facility]: Insurance:MEDICARE A MURPHYDOB: University [id number] AND BPolicy Number: [id number] [facility] [id number] Date:8052-77-43Ukmr [address] [place] [address] Repository 32766Ozk: (419) Name:CARE [id number]: (HP) [phone] (HP) 03/10/2018 Secondary [facility] Insurance:MMOPolicy MURPHYDOB: University Number: [id number] [facility] [id number] [address] [place] [address] Date:5150-94-02Cxlh [address] [place] [address] Repository Name:MANAGED CARE [id number]: (HP) 03/09/2018 [facility] Susannah [id number] Cr Insurance:SELF PAY [address] 06881Ctv: (419) Number: Effective Repository [phone] (HP) Date:2018-03-09 03/05/2018 [facility] MURPHYDOB: Insurance:MedicarePol [facility] Hospitals [id number] icy Number: [id number] [facility] [id number] Date:Plan Name:[address] [id number]: A [id number]: (HP) (HP) 03/05/2018 Secondary [facility] Insurance:MedicarePol [facility] icy Number: [id number] Repository [id number] Date:Plan Name:[address] B [id number]: (HP) 03/05/2018 Tertiary [facility] Insurance:Medical MURPHYDOB: [facility] [id number] Repository Number: [id number] Date:Plan Name:Health 03/05/2018 Tertiary [facility] Insurance:Medical [facility] Repository Number: [id number] Date:Plan Name:Health 03/02/2018 Alycia Primary NOT GIVENUNK [place] [id number] Cr Insurance:SELF PAY [address] [address]Tpa: (419) Number: Effective Repository [phone] (HP) Date:2018-03-02 02/24/2018 KIM Louis Primary KIM Louis [facility] SANTANADOB: Insurance:MEDICARE A ALEXB: [place] [id number] AND BPolicy Number: [id number] [facility] [id number] Date:9388-07-27Fiiz [address] [place] [address] Repository 92330Obi: (914) Name:CARE 11863Wro: (HP) [phone] () 02/24/2018 Secondary ALYCIA H [facility] [place] Number: [id number] [facility] [id number] [address] [place] [address] Date:9207-77-45Jyws [address] [place] [address] Repository Name:MANAGED CARE [id number]: (HP) 02/23/2018 Alycia Primary NOT GIVENUNK Susannah [id number] Cr Insurance:SELF PAY [address] [address]Qvm: (419) Number: Effective Repository [phone] () Date:2018-02-23 02/17/2018 Alycia Primary NOT GIVENUNK [place] [id number] Cr Insurance:SELF PAY [address] [address]Xdi: (419) Number: Effective Repository [phone] (HP) Date:2018-02-17 02/16/2018 KIM Louis Primary KIM Louis [facility] ALEXB: Insurance:MEDICARE A ALEXB: [place] [id number] AND BPolicy Number: [id number] [facility] [id number] Date:9267-84-39Kzps [address] [place] [address] Repository 06171Hla: (486) Name:CARE 10976Hqu: (HP) [phone] (HP) 02/16/2018 Secondary ALYCIA H [facility] Insurance:Kolton JOHNSONB: [place] Number: [id number] [facility] [id number] Date:0734-88-37Mgtl [address] [place] [address] Repository Name:MANAGED CARE [id number]: () 02/11/2018 Alycia Primary KIM Davalos [id number] Cr Insurance:MEDICARE KAILUADOB: [address] PART A [facility] [id number] 30527Rol: (419) Number: Repository [phone] () [id number] Date:2018-01-19 02/11/2018 Secondary Alycia [place] Insurance:MEDICAL [facility]: [facility] [id number] Hospital Number: Repository [id number] Date:9390-89-96OV[address] [address]XT: 02/11/2018 Tertiary NOT GIVENUNK [place] Insurance:SELF PAY [facility] Number: Effective Repository Date:2018-02-01 02/10/2018 Alycia Primary NOT GIVENUNK [place] [id number] Cr Insurance:SELF PAY [address] [address]Ohi: (419) Number: Effective Repository [phone] () Date:2018-02-10 02/10/2018 KIM M Primary ALYCIA H [facility] MURPHYDOB: Insurance:ANITHAFormerly Chesterfield General Hospitaldanay [facility]: [place] [id number] Number: [id number] [facility] [id number] Date:2950-07-13Llcb [address] [place] [address] Repository 86936Kjq: (535) Name:MANAGED CARE 50238Kga: (HP) [phone] () 02/10/2018 Secondary KIM M [facility] Insurance:MEDICARE A MURPHYDOB: [place] AND BPolicy Number: [id number] [facility] [id number] [address] [place] [address] Date:8925-86-93Rkeb [address] [place] [address] Repository Name:CARE [id number]: (HP) 02/10/2018 KIM Louis Primary KIM Louis [facility] MURPHYDOB: Insurance:MEDICARE A SANTANADOB: [place] [id number] AND BPolicy Number: [id number] [facility] [id number] Date:1341-87-91Yrfz [address] [place] [address] Repository 69724Iye: (330) Name:CARE [id number]: (HP) [phone] (HP) 02/10/2018 Secondary ALYCIA H [facility] Insurance:MMOPolicy SANTANADOB: [place] Number: [id number] [facility] [id number] [address] [place] [address] Date:9114-56-24Hgrz [address] [place] [address] Repository Name:MANAGED CARE [id number]: (HP) 02/09/2018 Alycia Primary NOT GIVENUNK Susannah [id number] Cr Insurance:SELF PAY [address] [address]Nmt: (419) Number: Effective Repository [phone] (HP) Date:2018-02-09 02/02/2018 KIM Louis Primary KIM Guerraaritan ALEXB: Insurance:MedicarePol KAILUADOB: [facility] [id number] icy Number: Effective [id number] [facility] [address] Date:2018-01-[address] [facility] [address] Repository [address] [place] [address] 1150-39-41Iviz [address] [place] [address]Dol: Name:CD:[id number] [address]Zmr: [id number], [place] (HP) [id number]: (800) (HP) [phone] (WP) 02/02/2018 Secondary ALYCIA Ravinder Cruz Insurance:Medical MURPHYDOB: [facility] Number: [id number] System Effective [address] [facility] [address] Repository Date:2018-01-22 - [address] [place] [address] 5221-10-46Icoc [address]Idz: Name:[facility] [address] [place] [address] (HP)Tel: [phone]) [phone]: (wp) [phone] 01/31/2018 [facility] MURPHYDOB: Insurance:MedicarePol MURPHYDOB: [facility] [id number] icy Number: [id number] Repository [facility] [id number] [address] [place] [address] Date:Plan Name:[address] [id number]: A [phone]: (IH) () 01/31/2018 [facility] Insurance:MedicarePol MURPHYDOB: [facility] icy Number: [id number] Repository [id number] Date:Plan Name:[address] B [id number]: () 01/31/2018 [facility] Insurance:Medical MURPHYDOB: [facility] [id number] Repository Number: [id number] Date:Plan Name:Health 01/31/2018 [facility] Insurance:Medical Hospitals [facility] Repository Number: [id number] Date:Plan Name:Health 01/29/2018 [facility] KIM Heriberto Davalos [id number] Insurance:MEDICARE MURPHYDOB: [address] PART A BPolicy [id number] [facility] 93376Fps: (419) Number: Repository [phone] () [id number] Date:2018-01-19 01/29/2018 Secondary Alycia [place] Insurance:MEDICAL MurphyDOB: [facility] [id number] Hospital Number: Repository [id number] Date:8485-75-75UQ[address] [address]VH: 01/29/2018 Tertiary NOT GIVENUNK [place] Insurance:SELF PAY [facility] Number: Effective Repository Date:2018-01-19 01/28/2018 KIM Louis Primary KIM Louis [facility] MURPHYDOB: Insurance:MEDICARE A SANTANADOB: [place] [id number] AND BPolicy Number: [id number] [facility] [id number] Date:7805-19-12Ogql [address] [place] [address] Repository 31758Jfm: (028) Name:CARE [id number]: (HP) [phone] (HP) 01/28/2018 Secondary [facility] Insurance:MMOPolicy SANTANADOB: University Number: [id number] [facility] [id number] Date:9351-31-01Spko [address] [place] [address] Repository Name:MANAGED CARE 50938Ytj: (HP) 01/28/2018 KIM Louis Primary KIM Louis [facility] MURPHYDOB: Insurance:MEDICARE A SANTANADOB: [place] [id number] AND BPolicy Number: [id number] [facility] [id number] Date:0725-49-14Wvcv [address] [place] [address] Repository 26112Hbo: (493) Name:CARE [id number]: (HP) [id number] (HP) 01/28/2018 Secondary [facility] Insurance:MMOPolicy MURPHYDOB: University Number: [id number] [facility] [id number] Date:7630-17-95Vuzi [address] [place] [address] Repository Name:MANAGED CARE [id number]: (HP) 01/26/2018 KIM Louis Primary KIM Louis [facility] MURPHYDOB: Insurance:MEDICARE A MURPHYDOB: [place] [id number] AND BPolicy Number: [id number] [facility] [id number] Date:7141-77-32Gtuh [address] [place] [address] Repository 62946Zxu: (330) Name:CARE 27579Mnr: (HP) [phone] (HP) 01/26/2018 Secondary ALYCIA H [facility] Insurance:MMOPolicy ALEXB: University Number: [id number] [facility] [id number] Date:2022-16-54Xpud [address] [place] [address] Repository Name:MANAGED CARE 50073Ekk: () 01/21/2018 KIM M Primary KIM Louis [facility] SANTANADOB: Insurance:MEDICARE A SANTANADOB: [place] [id number] AND BPolicy Number: [id number] [facility] [id number] Date:9485-79-65Rxem [address] [place] [address] Repository 11438Iug: (330) Name:CARE 67819Bpv: (HP) [phone] (HP) 01/21/2018 Secondary ALYCIA H [facility] Insurance:MMOPolcarolay ALEXB: University Number: [id number] [facility] [id number] Date:5445-42-05Jvto [address] [place] [address] Repository Name:MANAGED CARE [id number]: () 01/16/2018 KIM Louis Primary KIM Louis [facility] ALEXB: Insurance:MedicarePol MURPHYDOB: [facility] [id number] icy Number: Effective [id number] [facility] Date:2018-01-12 [facility] Repository [address] [place] [address] 6910-07-20Nufl [address] [place] [address]Igu: Name:CD:[id number] [address] [address]Kmw: [id number], [place] (OI) [phone]: (800) (HP) 000-0000 (WP) 01/16/2018 Secondary ALYCIA H [facility] Insurance:Medical MURPHYDOB: [facility]ryPolicy Number: [id number] System Effective [address] [place] [address] Repository Date:2018-01-[address] [place] [address] 1661-51-35Ejye [address]Lfg: Name:Medical MutualPO [address] [place] [address] (HP)Tel: ([phone]) [phone]: (WP) [phone] 01/13/2018 KIM Louis Primary KIM Louis [facility] MURPHYDOB: Insurance:MEDICARE A KAILUADOB: [place] [id number] AND BPolicy Number: [id number] [facility] [id number] [address] [place] [address] Date:3091-92-36Dhqj [address] [place] [address] Repository 61671Bld: (410) Name:CARE 65034Mcz: (HP) [phone] (HP) 01/13/2018 Secondary ALYCIA [facility] Insurance:MMOPolic ALEXB: [place] Number: [id number] [facility] [id number] [address] [place] [address] Date:9796-95-81Gefh [address] [place] [address] Repository Name:MANAGED CARE [id number]: (HP) 01/13/2018 KIM EVERETT [facility] ALEXB: Insurance:MedicarePol [facility] [id number] icy Number: [id number] [facility] [id number] Date:Plan Name:[address] [id number]: A [id number]: (HP) (HP) 01/13/2018 [facility] Insurance:MedicarePol MURPHYDOB: Hospitals icy Number: [id number] Repository [id number] [address] [place] [address] ROAD Date:Plan Name:[address] B [phone]: (HP) 01/13/2018 [facility] Insurance:Medical MURPHYDOB: [facility] [id number] Repository Number: [id number] Date:Plan Name:Health 01/12/2018 [facility] Insurance:MedicarePol [facility]: [facility] [id number] icy Number: Effective [id number] Date:2018-01-[address] Repository [address] [place] [address] 0815-14-11Ldgq [address] [place] [address]Zod: Name:CD:[id number] [address] [address]Pwz: [id number], [place] (HP) [phone]: 800) (HP) 000-0000 (WP) 01/12/2018 [facility] Insurance:Medical KAILUADOB: [facility] Number: [id number] System Effective [address] [place] [address] ROAD Repository Date:2018-01-[address] [place] [address] 9596-38-26Fvtg [address]Vlr: Name:Medical [facility] [address] [place] [address] (HP)Tel: [phone]) [phone]: (WP) [phone] 01/12/2018 KIM Louis [facility] MURPHYDOB: Insurance:MedicarePol MURPHYDOB: Hospitals [id number] icy Number: [id number] Repository [facility] [address] [id number] [address] [facility] [address] [place] [address] Date:Plan Name:[address] [id number]: A [id number]: (HP) (HP) 01/12/2018 [facility] Insurance:MedicarePol MURPHYDOB: Hospitals icy Number: [id number] Repository [id number] [address] [facility] Date:Plan Name:[address] B [id number]: (HP) 01/12/2018 [facility] Insurance:Medical KAILUADOB: [facility] [id number] Repository Number: [id number] Date:Plan Name:Health 01/12/2018 [facility] Insurance:[facility] Repository Number: [id number] Date:Plan Name:Health 01/08/2018 [facility] Primary [facility] MURPHYDOB: Insurance:1500 MURPHYDOB: [facility] [id number] MEDICARE [id number] System [facility] PRIMARYPolicy Number: 79 [facility] Repository [address] [place] [address] [place] [address]Pzq: Date:2017-12-22 [address]Ank: 9834-23-13Ysvq (HP) Name:CD:[id number] O ()Tel: (339) CKW 66532IAEWMWZFW, 000-0000 () [place] [address]AW: 01/08/2018 Secondary [facility] Insurance:1500 MURPHYDOB: [facility] [id number] System Number: Effective [address] [facility] [address] Repository Date:2017-12-[address] [place] [address] 8471-15-84Hvuj [address]Qjd: Name:CD:[id number] [address] [place] [address] (HP)Tel: ([phone]) [phone]: (WP) [phone] 01/08/2018 KIM Louis Primary KIM Cruz ALEXB: Insurance:MedicareUpper Allegheny Health SystemB: [facility] [id number] icy Number: Effective [id number] [facility] Date:2017-12-31 [facility] Repository [address] [place] [address] 4198-98-28Pnkq [address] [place] [address]Tde: Name:CD:[id number] [address] [address]Xwb: [id number], [place] (HP) [phone]: (162) (HP) 000-0000 (WP) 01/08/2018 Secondary ALYCIA Cruz Insurance:Medical [facility] MutualPolicy Number: [id number] System Effective 79 [facility] Repository Date:2017-12-31 - [address] [place] [address] 3388-98-84Cgtn [address]Alq: Name:Medical MutualPO [address] [place] [address] (HP)Tel: ([phone]) [phone]: (WP) [phone] 12/31/2017 KIM Louis Primary KIM Cruz ALEXB: Insurance:[address] [place], [place] [address]B: [facility] [id number] MEDICARE [id number] System [facility] PRIMARYPolicy Number: 79 [facility] Repository [address] [place] [address] [place] [address]Rox: Date:2017-12-22 [address]-4[address]Yml: 2100-12-31plan (HP) Name:CD:[id number] O (HP)Tel: (000) [address] [address]EZDRIAHUO, 000-0000 (WP) [place] [address]JQ: 12/31/2017 Secondary ALYCIA Guerraaritan Insurance:1500 MURPHYDOB: [facility] [id number] System Number: Effective [address] [place] [address] Repository Date:2017-12-22 - [address] [place] [address] 8889-15-51Jnrp [address]Suy: Name:CD:[id number] [address] [place] [address] (HP)Tel: ([phone]) [phone]: (WP) [phone] 12/26/2017 KIM Heriberto Primary KIM M [facility] MURPHYDOB: Insurance:MEDICARE A [facility]: [place] [id number] AND BPolicy Number: [id number] [facility] [id number] [address] [place] [address] Date:2986-06-92Zrqy [address] [place] [address] Repository 83575Kup: 330) Name:CARE [id number]: (HP) [phone] (HP) 12/26/2017 Secondary ALYCIA [facility] Insurance:MMOPolicy KAILUADOB: University Number: [id number] [facility] [id number] [address] [place] [address] Date:2672-57-77Jgso [address] [place] [address] Repository Name:MANAGED CARE 46898Ywj: (HP) 12/25/2017 KIM Louis Primary KIM M Hinduism [facility] Insurance:MedicarePol [facility]: [facility] [id number] icy Number: Effective [id number] [facility] [address] Date:2017-12-25 [facility] Repository [address] [place] [address] 4952-37-03Urdg [address] [place] [address]Gbg: Name:CD:[id number] [address] [address]Euw: [id number], [place] (HP) [phone]: [phone]) (HP) [phone] (WP) 12/25/2017 Secondary ALYCIA H [employer] Insurance:Medical MURPHYDOB: [facility] MutualPolicy Number: [id number] System Effective [address] Repository Date:2017-12-25 - [address] [place] [address] [id number]: Name:Medical [address]PO [address] [place] [address] (HP)Tel: [phone]: (WP) [phone] 12/22/2017 KIM Louis Primary KIM JOHNSONB: Insurance:MedicarePol MURPHYDOB: [facility] [id number] icy Number: Effective [id number] System [facility] [address] Date:2017-12-22 - [address] Repository [address] [place] [address] [id number] [address] [place] [id number]: Name::[id number] [address] [address]Awv: [id number], [place] (HP) [phone]: [phone]) (HP) [phone] (WP) 12/22/2017 Secondary ALYCIA H Hindu[employer] Insurance:Medical MURPHYDOB: [place] [facility]Policy Number: [id number] System Effective [address] Repository Date:2017-12-22 - [address] [place] [address] [id number] [address]Zhr: Name:Medical MutualPO [address] [place] [address] (HP)Tel: [phone]: (WP) [phone] 12/22/2017 KIM Louis Primary KIM JOHNSONB: Insurance:1500 MURPHYDOB: [facility] [id number] MEDICARE [id number] System [facility] [address] [address] PRIMARYPolicy Number: [address] Repository [address] [place] [address] [place] [address]Eqw: Date:2017-12-2257219-8169Tow: 0441-77-89Ghoe (HP) Name:CD:[id number] O (HP)Tel: (000) [address]VKHQYETQH, 000-0000 (WP) [place] [address]HB: 12/22/2017 Secondary ALYCIA H Hinduism Insurance:1500 [facility]URPHYDOB[facility] [id number] System Number: Effective [address] [facility] Repository Date:2017-12-22 - [address] [place] [address] 0985-00-29Ulry [address]Jkp: Name:CD:[id number] [address] [place] [address] ()Tel: ([phone]) [phone]: (WP) [phone] 12/15/2017 KIM M [facility]: [facility]1500 [facility] [id number] MEDICARE [id number] System [facility] PRIMARYPolicy Number: 79 [facility] Repository [address] [place] [address] [place] [address] [id number]: Date:2017-11-27 [id number]: 6201-16-85Geum (HP) Name:CD:[id number] O (HP)Tel: (000) [address]CPGBKSRFG, 000-0000 (WP) [place] [address]EC: 12/15/2017 Secondary ALYCIA H Hinduism Insurance:1500 MURPHYDOB: [facility] ER[facility] [id number] System Number: Effective 79 [facility] Repository Date:2017-11-27 - [address] [place] [address] 1058-78-88Wkcn [address]Anr: Name:CD:[id number] [address] [place] [address] (HP)Tel: [phone]: (WP) [phone] 12/10/2017 KIM M Primary KIM Cruz SANTANADOB: Insurance:MedicarePol MURPHYDOB: [facility] icy Number: Effective [id number] System [facility] [address] Date:2017-12-[address] [facility] [address] Repository [address] [place] [address] [id number] [address] [place] [address]Gdh: Name:CD:[id number] [address] [address]Lpy: [id number] [place] [address] (HP) [phone]: (800) (HP) [phone] (WP) 12/10/2017 Secondary ALYCIA H Hinduism Insurance:Medical MURPHYDOB: [facility]Policy Number: [id number] System Effective [address] [facility] [address] Repository Date:2017-12-[address] [place] [address] 8338-50-43Teas [address]Alu: Name:Medical MutualPO [address] [place] [address] (HP)Tel: [phone]: (WP) [phone] 12/08/2017 KIM M Primary KIM Cruz ALEXB: Insurance:MedicarePol [facility] icy Number: Effective [id number] Date:2017-12-[address] [facility] [address] Repository [address] [place] [address] [id number] [address] [place] [address]Qot: Name:CD:[id number] [address] [address]Qni: [id number] [place] [address] (HP) [phone]: (800) (HP) 000-0000 (WP) 12/08/2017 Secondary ALYCIA H Hinduism Insurance:Medical MURPHYDOB: [facility]ryPolicy Number: [id number] System Effective [address] Repository Date:2017-12-[address] [place] [address] 3324-14-22Guhv [address]Hvj: Name:Medical MutualPO [address] [place] [address] (HP)Tel: [phone]: (WP) [phone] 12/05/2017 KIM M Primary KIM Guerraaritan ALEXB: Insurance:MedicarePol MURPHYDOB: [facility] [id number] icy Number: Effective [id number] System [facility] [address] Date:2017-12-05 [facility] Repository [address] [place] [address] [id number] [address] [place] [address]Lvm: Name:CD:[id number] [facility] [address]Izq: [id number], [place] (HP) [phone]: [phone]) (HP) [phone] (WP) 12/05/2017 Secondary ALYCIA H Hinduism Insurance:Medical MURPHYDOB: [facility]ryPolicy Number: [id number] System Effective [address] Repository Date:2017-12-[address] [place] [address] 0553-62-30Ugey [address]Lmo: Name:Medical MutualPO [address] [place] [address] (HP)Tel: [phone]) [phone]: (WP) [phone] 11/27/2017 KIM Louis Primary KIM Louis Gideon JOHNSONB: Insurance:MedicarePol MURPHYDOB: [facility] icy Number: Effective [id number] [facility] [address] Date:2017-11-27 [facility] [address] Repository [address] [place] [address] 5874-20-38Dogz [address] [place] [address] [id number]: Name:CD:[id number] [id number]: [id number], [place] (HP) [phone]: (122) (HP) [phone] (WP) 11/27/2017 Secondary ALYCIA H Hinduism Insurance:Medical MURPHYDOB: [facility]Policy Number: [id number] System Effective [address] [facility] [address] [address] Repository Date:2017-11-27 - [address] [place] [address] 9450-19-79Flau [address]Zhi: Name:Medical MutualPO [address] [place] [address] ()Tel: [phone]) [phone]: (WP) [phone] 11/27/2017 KIM Louis Primary KIM JOHNSONB: Insurance:1500 [facility] [id number] MEDICARE [id number] System [facility] PRIMARYPolicy Number: [address] [facility] [address] Repository [address] [place] [address] [place] [address] [id number]: Date:2017-11-14 [id number]: 4131-03-86Xino () Name:CD:[id number] O ()Tel: 000) [address]GRYRABLGL, 000-0000 (WP) [place] [address]UW: 11/27/2017 Secondary ALYCIA H Hinduism Insurance:1500 MURPHYDOB: [facility] [id number] System Number: Effective [address] Repository Date:2017-11-14 - [address] [place] [address] 4374-88-65Vyot [address]Jtr: Name:CD:[id number] [address] [place] [address] ()Tel: [phone]) [phone]: (WP) [phone] 11/21/2017 KIM Louis Primary KIM JOHNSONB: Insurance:MedicarePol KAILUADOB: [facility] icy Number: Effective [id number] System [facility] Date:2017-11-[address] Repository [address] [place] [address] [id number] [address] [place] [address] [id number]: Name:CD:[id number] [id number]: [id number], [place] (HP) [phone]: (800) (HP) [phone] (WP) 11/21/2017 Secondary ALYCIA Cruz Insurance:Medical MURPHYDOB: [facility]ryPolicy Number: [id number] System Effective [address] [place] [address] ROAD Repository Date:2017-11-[address] [place] [address] 0573-20-14Vfrl [address]Pnh: Name:Medical MutualPO [address] [place] [address] (HP)Tel: [phone]: (WP) [phone] 11/21/2017 KIM Louis Primary KIM DILLONDOB: Insurance:MedicarePol [facility] [id number] icy Number: Effective [id number] [facility] [address] Date:2017-11-[address] [facility] [address] Repository [address] [place] [address] [id number] [address] [place] [address] [id number]: Name:CD:[id number] [id number]: [id number] [place] [address] (HP) [phone]: (800) (HP) [phone] (WP) 11/21/2017 Secondary ALYCIA Hinduism Insurance:Medical MURPHYDOB: [facility]ryPolicy Number: [id number] System Effective [address] [place] [address] ROAD Repository Date:2017-11-[address] [place] [address] 8736-94-66Npfz [address]Xgp: Name:Medical MutualPO [address] [place] [address] (HP)Tel: [phone]) [phone]: (WP) [phone] 11/14/2017 KIM Louis Primary KIM M Hinduism MURPHYDOB: Insurance:1500 [facility] [id number] MEDICARE [id number] [facility] PRIMARYPolicy Number: [address] Effective [address] [place] [address] [id number]: Date:2017-08-12 [id number]: 2100-12-31plan (HP) Name:CD:[id number] O (HP)Tel: (395) [address]ZGSCOBPAV, 000-0000 (WP) [place] [address]PR: 11/14/2017 Secondary ALYCIA Cruz Insurance:1500 KAILUADOB: [facility] MUTUALPolicy [id number] System Number: Effective 79 [facility] Date:2017-08-12 - [address] [place] [address] 6805-20-63Xapl [address]Iwv: Name:CD:[id number] [address] [place] [address] (HP)Tel: [phone]) [phone]: (WP) [phone] 11/06/2017 KIM Heriberto Primary KIM M [facility] MURPHYDOB: Insurance:MEDICARE A SANTANADOB: [place] [id number] AND BPolicy Number: [id number] [facility] [id number] [address] [place] [address] Date:9307-67-84Tmhn [address] [place] [address] Repository 73116Dxb: (330) Name:[facility] 82893Iyb: (HP) [phone] (HP) 11/06/2017 Secondary ALYCIA H [facility] Insurance:MMOPolicy MURPHYDOB: [place] Number: [id number] [facility] [id number] [address] [place] [address] Date:5368-00-19Rzoi [address] [place] [address] Repository Name:MANAGED CARE [id number]: (HP) 11/06/2017 KIM M Primary KIM Louis [facility] MURPHYDOB: Insurance:MEDICARE A MURPHYDOB: [place] [id number] AND BPolicy Number: [id number] [facility] [id number] [address] [place] [address] Date:8452-44-69Viin [address] [place] [address] Repository 90665Obm: (912) Name:CARE 89916Apm: (HP) [phone] (HP) 11/06/2017 Secondary ALYCIA Castellon [facility] SANTANADOB: [place] Number: [id number] [facility] [id number] [address] [place] [address] Date:0916-80-73Jmul [address] [place] [address] Repository Name:MANAGED CARE 60075Mxq: (HP) 11/03/2017 KIM M Primary ALYICA Castellon Hinduism MURPHYDOB: Insurance:Medical MURPHYDOB: [facility] [id number] MutualPolicy Number: [id number] [facility] Effective [address] [place] [address] [place] [address] Date:2017-11-[address] [place] [address] [id number]: 2399-37-96Kwer [address]Aqj: Name:Medical MutualPO () [address] [address]OLMDDGTUQ, (HP)Tel: [facility] [place] [address]QJ: [phone] (WP) 11/03/2017 Secondary KIM Heriberto Hinduism Insurance:MedicarePol KAILUADOB: [facility] icy Number: Effective [id number] System Date:2017-11-03 [facility] Repository 7432-07-67Extu [address] [place] [address] Name:CD:[id number] [id number]: 267004XRDCXRVPBT, [place] [id number]: (800) (HP) [phone] (WP) 11/03/2017 KIM Heriberto Primary KIMSUE Guerraaritan MURPHYDOB: Insurance:1500 KAILUADOB: [facility] [id number] MEDICARE [id number] [facility] PRIMARYPolicy Number: [address] Effective [address] [place] [address] [id number]: Date:2017-11-03 [id number]: 2100-12-31Plan (HP) Name:CD:[id number] O (HP)Tel: 000) [address] [address]CSLXJACWY, 000-0000 (WP) [place] [address]MI: 11/03/2017 Secondary ALYCIA Ravinder Cruz Insurance:1500 KAILUADOB: [facility] ERPolicy [id number] System Number: Effective 79 [facility] Date:2017-11-03 - [address] [place] [address] 9204-42-94Seco [address]Rhs: Name:CD:[id number] [address] [place] [address] (HP)Tel: ([phone]) [phone]: (WP) [phone] 10/20/2017 KIM M Primary KIM M [facility] MURPHYDOB: Insurance:MEDICARE A SANTANADOB: [place] [id number] AND BPolicy Number: [id number] [facility] [id number] [address] [place] [address] Date:2267-11-95Ejam [address] [place] [address] Repository 78064Igi: (330) Name:CARE 54111Xzk: (HP) [phone] (HP) 10/20/2017 Secondary ALYCIA H [facility] Insurance:MMOPolicy MURPHYDOB: [place] Number: [id number] [facility] [id number] [address] [place] [address] Date:2262-78-73Xkzc [address] [place] [address] Repository Name:MANAGED CARE 66696Uqi: (HP) 10/16/2017 KIM Louis Primary KIM Louis [facility] MURPHYDOB: Insurance:MEDICARE A MURPHYDOB: [place] [id number] AND BPolicy Number: [id number] [facility] [id number] Date:0320-32-86Ejuj [address] [place] [address] Repository 53863Lmw: (330) Name:CARE 91175Skl: (HP) [id number] (HP) 10/16/2017 Secondary [facility] Insurance:MMOPolicy SANTANADOB: University Number: [id number] [facility] [id number] Date:3991-02-96Rfmq [address] [place] [address] Repository Name:MANAGED CARE 73677Ama: (HP) 10/16/2017 KIM Louis Primary KIM Louis [facility] MURPHYDOB: Insurance:MEDICARE A SANTANADOB: [place] [id number] AND BPolicy Number: [id number] [facility] [id number] Date:8994-84-32Ismi [address] [place] [address] Repository 80756Mgo: (330) Name:CARE 75976Ujp: (HP) [id number] (HP) 10/16/2017 Secondary [facility] Insurance:MMOPoldanay DILLONDOB: University Number: [id number] [facility] [id number] Date:4966-09-27Hhpk [address] [place] [address] Repository Name:MANAGED CARE 22251Uil: (HP) 10/16/2017 KIM Louis Primary KIM Louis [facility] MURPHYDOB: Insurance:MEDICARE A MURPHYDOB: [place] [id number] AND BPolicy Number: [id number] [facility] [id number] Date:4572-94-47Oqiz [address] [place] [address] Repository 66190Jzs: (330) Name:CARE 02430Rad: (HP) [id number] (HP) 10/16/2017 Secondary ALYCIA H [facility] Insurance:[place] ALEXB: University Number: [id number] [facility] [id number] Date:2979-77-54Dqsd [address] [place] [address] Repository Name:MANAGED CARE 84970Tis: (HP) 10/16/2017 KIM Louis Primary KIM Louis [facility] SANTANADOB: Insurance:MEDICARE A SANTANADOB: [place] [id number] AND BPolicy Number: [id number] [facility] [id number] Date:1789-92-64Ksbr [address] [place] [address] Repository 65886Abg: (330) Name:CARE 68977Poa: (HP) [id number] (HP) 10/16/2017 Secondary ALYCIA H [facility] Insurance:ANITHALydiadanay ALEXB: University Number: [id number] [facility] [id number] Date:9467-01-25Hunj [address] [place] [address] Repository Name:MANAGED CARE 63559Tpt: (HP) 09/15/2017 KIM Louis Primary KIM Heriberto [facility] SANTANADOB: Insurance:MEDICARE A MURPHYDOB: [place] [id number] AND BPolicy Number: [id number] [facility] [id number] Date:3199-52-15Ovem [address] [place] [address] Repository 93099Bbu: (330) Name:CARE 05058Xxf: (HP) [id number] (HP) 09/15/2017 Secondary ALYCIA H [facility] Insurance:MMOPoldanay JOHNSONB: University Number: [id number] [facility] [id number] Date:7805-86-50Hial [address] [place] [address] Repository Name:MANAGED CARE 14100Ycw: (HP) 09/15/2017 KIM Louis Primary KIM Louis [facility] SANTANADOB: Insurance:MEDICARE A SANTANADOB: [place] [id number] AND BPolicy Number: [id number] [facility] [id number] Date:7072-94-56Ymxk [address] [place] [address] Repository 92077Vnh: (893) Name:CARE 40805Mwr: (HP) [phone] (HP) 09/15/2017 Secondary [facility] Insurance:MMRemy DILLONB: University Number: [id number] [facility] [id number] Date:1522-57-27Ccnj [address] [place] [address] Repository Name:MANAGED CARE 11276Irb: (HP) 09/02/2017 KIM Louis Primary KIM Louis [facility] SANTANADOB: Insurance:MEDICARE A SANTANADOB: [place] [id number] AND BPolicy Number: [id number] [facility] [id number] Date:3532-45-36Jdki [address] [place] [address] Repository 23229Zxw: (088) Name:CARE 44013Ajq: (HP) [id number] (HP) 09/02/2017 Secondary ALYCIA H [facility] Insurance:MMOPolicherson DILLONDOB: University Number: [id number] [facility] [id number] Date:0956-73-85Fvba [address] [place] [address] Repository Name:MANAGED CARE 82993Tyf: (HP) 09/01/2017 KIM Louis Primary KIM Louis [facility] SANTANADOB: Insurance:MEDICARE A ALEXB: [place] [id number] AND [facility] Number: [id number] [facility] [id number] [address] [place] [address] Date:4977-68-76Jpzq [address] [place] [address] Repository 02143Lsb: (484) Name:CARE 09312Jlc: () [phone] () 09/01/2017 Secondary ALYCIA Castellon [facility] Insurance:MMOPoldanay JOHNSONB: [place] Number: [id number] [facility] [id number] [address] [place] [address] Date:2245-37-29Rfsf [address] [place] [address] Repository Name:MANAGED CARE 95825Vib: ()
== END ==
PROVIDERS: Family Provider Nurse Practitioner Family; PCP Nurse Practitioner Family
DX: C85.10 Unspecified B-cell lymphoma, unspecified site (principal); L59.8 Other specified disorders of the skin and subcutaneous tissue related to radiation; Y84.2 Radiological procedure and radiotherapy as the cause of abnormal reaction of the patient, or of later complication, without mention of misadventure at the time of the procedure; C67.9 Malignant neoplasm of bladder, unspecified; C79.89 Secondary malignant neoplasm of other specified sites; N30.10 Interstitial cystitis (chronic) without hematuria; Z87.891 Personal history of nicotine dependence
CPT/HCPCS: 36592; 80053; 85025; 99213; A4216; G0463

== ENCOUNTER 2018-07-21 12:09 | Outpatient (RCR) | payer MEDICARE, OTHER, SELFPAY ==
[2018-07-21 12:46] VITALS: BP 112/54; PULSE 89; RESP 18; TEMP 36.7; BMI 32.2
--- NOTE | 2018-07-22 09:39 | PCM.CONHBO ---
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 This is a closer facility than driving to [place] daily. She started HBOT in [place] a couple weeks ago before her first treatment of Chemotherapy for recurrent bladder CA with mets to pelvis and hip. The patient is a 63 year old F who [facility] possibility of initiating hyperbaric oxygen therapy for treatment of Soft tissue Radionecrosis to her bladder. 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 (Chronic) History of radiation therapy (Chronic) Soft tissue radionecrosis (Chronic) Bladder Allergies/Adverse Reactions: Allergies Iodinated Contrast- Oral and IV Dye [CONTRASTS] Allergy (Verified 07/21/18 13:11) Shortness of breath Home Medications: Ambulatory Orders Medication Instructions Recorded Acyclovir 400 mg pe BC BID 07/21/18 Allopurinol [Zyloprim] 300 mg BC DAILY 07/21/18 Bumetanide 1 mg pe BC DAILY 07/21/18 Docusate Sodium [Colace] 100 mg PO BID 07/21/18 Doxycycline 100 mg pe BC BID 07/21/18 Famotidine [Pepcid] 20 mg BC DAILY 07/21/18 Filgrastim (G-Csf) [Neupogen] 480 mcg SC X1 07/21/18 Hydrocodone/Acetaminophen 5 mg pe BC Q6H PRN PRN 07/21/18 [Hydrocodone-Acetamin 5-325 mg] Insulin Aspart [Novolog Flexpen 23 units SC TIDCM 07/21/18 ([facility])] Insulin Glargine,Hum.rec.anlog 100 unit SQ BID 07/21/18 [Lantus] Lactulose [Chronulac, Cephulac] 20 gm PO BID 07/21/18 Levofloxacin [Levaquin] 750 mg BC 07/21/18 Melatonin 3 mg PO DAILY 07/21/18 Oxybutynin [Ditropan] 5 mg BC TID 07/21/18 Oxycodone HCl [Oxycontin] 10 mg PO Q6H PRN PRN 07/21/18 Rifaximin [Xifaxan] 550 mg PO BID 07/21/18 Sennosides [Senna] 8.6 mg PO BID 07/21/18 Sertraline HCl [Zoloft] 150 mg BC DAILY 07/21/18 Spironolactone [Aldactone] 50 mg BC DAILY 07/21/18 Zinc Sulfate (50mg elemental) 220 mg PO DAILY 07/21/18 [Zinc Sulfate] Zolpidem Tartrate [Ambien 5 mg PO QHS 07/21/18 (Generic)] Zolpidem Tartrate [Ambien] 07/21/18 levoFLOXacin tablet [Levaquin 07/21/18 tablet] proCHLORPERazine tablet 10 mg Q6H PRN PRN 07/21/18 Lives: Spouse/ Significant Other Smoking Status: Former smoker Review of Systems Constitutional: Denies: Anorexia, Chills Eyes: Denies: Blurred vision HEENT: Denies: Difficulty Hearing, Difficulty Swallowing Cardiovascular: Denies: Chest Pain, Edema Respiratory: Denies: Cough, Shortness of Breath Genitourinary: Reports: Hematuria Musculoskeletal: Denies: Arm Pain, Back Pain, Foot Pain Skin: Denies: Dryness, Jaundice Neurological: Denies: Balance problems, Blurred vision, Change in Speech Endocrine: Denies: Change in Body Habitus - Physical Exam Vital Signs Temp Pulse Resp BP 98.0 F 89 18 112/54 L 07/21/18 12:46 07/21/18 12:46 07/21/18 12:46 07/21/18 12:46 General: Alert, Oriented x3, Cooperative HEENT: Atraumatic, PERRLA, TM's Clear Oral: Moist Mucosa Lungs: Clear to auscultation, Normal air movement Cardiovascular: Regular rate, Regular Rhythm Extremities: No edema, Capillary Refill Less than 3 Seconds, Peripheral Pulses Normal Skin: No rashes, No breakdown Musculoskeletal: No Tenderness to Palpation of Joints or Extremities Neurological: Neuro grossly intact Psych/Mental Status: Normal Affect, Appropriate Assessment/Plan Active Problems (Last Updated 07/21/18 @ 15:11 by Karen Quiles) 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 There is a relative contraindication for HBOT due to her currently being treated with a chemotherapeutic agent for her recurrent bladder cancer with mets to the pelvis. She previously has received 4 treatments of HBOT prior to starting this current course of chemotherapy which started a week ago. Instructed patient that she will need to discuss this issue further with her physicians in [place]. 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) Code Visit Office Visits / Consults: [id number] OV L4 Est
--- OUTSIDE RECORDS SUMMARY | 2018-10-22 21:54 | XMS RPT_ITS ---
:1955 Author Organization OHIP Support Name Relationship Address Phone D Unavailable Unavailable Unavailable ALYCIA DILLON Unavailable [address] + [place] [address] DOMINGO, MAGO Unavailable Unavailable Unavailable ALYCIA DILLON Unavailable [address] + [place] [address] KIM DILLON Unavailable Unavailable Unavailable DOMINGO MAGO Unavailable Unavailable Unavailable ALYCIA DILLON Unavailable [address] + [place] [address] KIM DILLON Unavailable Unavailable Unavailable D Unavailable Unavailable Unavailable ALYCIA DILLON Unavailable [address] + [place] [address] D Unavailable Unavailable Unavailable ALYCIA DILLON Unavailable [address] + [place] [address] CHAYO MAGO Unavailable Unavailable Unavailable ALYCIA DILLON Unavailable [address] + [place] [address] KIM DILLON Unavailable Unavailable Unavailable DOMINGO MAGO Unavailable Unavailable Unavailable ALYCIA DILLON Unavailable [address] + [place] [address] KIM DILLON Unavailable Unavailable Unavailable DOMINGO MAGO Unavailable Unavailable Unavailable ALYCIA DILLON Unavailable [address] + [place] [address] KIM DILLON Unavailable Unavailable Unavailable DOMINGO, MAGO Unavailable Unavailable Unavailable ALYCIA DILLON Unavailable [address] + [place] [address] KIM DILLON Unavailable Unavailable Unavailable DOMINGO MAGO Unavailable Unavailable Unavailable ALYCIA DILLON Unavailable [address] + [place] [address] KIM DILLON Unavailable Unavailable Unavailable DOMINGO MAGO Unavailable Unavailable Unavailable ALYCIA DILLON Unavailable [address] + [place] [address] DILLON, KIM Unavailable Unavailable Unavailable DOMINGO, MAGO Unavailable Unavailable Unavailable ALYCIA DILLON Unavailable [address] + [place] [address] DILLON, KIM Unavailable Unavailable Unavailable DOMINGO, MAGO Unavailable Unavailable Unavailable ALYCIA DILLON Unavailable [address] + [place] [address] DILLON, KIM Unavailable Unavailable Unavailable DOMINGO, MAGO Unavailable Unavailable Unavailable ALYCIA DILLON Unavailable [address] + [place] [address] DILLON, KIM Unavailable Unavailable Unavailable DOMINGO, MAGO Unavailable Unavailable Unavailable ALYCIA DILLON Unavailable [address] + [place] [address] SANTANA KIM Unavailable Unavailable Unavailable D Unavailable Unavailable Unavailable ALYCIA DILLON Unavailable [address] + [place] [address] D Unavailable Unavailable Unavailable Alycia Dillon Unavailable [address] + [place] [address] D Unavailable Unavailable Unavailable Alycia Dillon Unavailable [address] + [place] [address] ALYCIA DILLON Unavailable Unavailable + DOMINGO, MAGO Unavailable Unavailable Unavailable ALYCIA DILLON Unavailable [address] + [place] [address] SANTANA KIM Unavailable Unavailable Unavailable DOMINGO, MAGO Unavailable Unavailable Unavailable ALYCIA DILLON Unavailable [address] + [place] [address] DILLON, KIM Unavailable Unavailable Unavailable DOMINGO, MAGO Unavailable Unavailable Unavailable ALYCIA DILLON Unavailable [address] + [place] [address] DILLON, KIM Unavailable Unavailable Unavailable DOMINGO, MAGO Unavailable Unavailable Unavailable ALYCIA DILLON Unavailable [address] + [place] [address] DILLON, KIM Unavailable Unavailable Unavailable DOMINGO, MAGO Unavailable Unavailable Unavailable ALYCIA DILLON Unavailable [address] + [place] [address] DILLON, KIM Unavailable Unavailable Unavailable DOMINGO, MAGO Unavailable Unavailable Unavailable MARC DILLONON Unavailable [address] + [place] [address] DILLON, KIM Unavailable Unavailable Unavailable DOMINGO, MAGO Unavailable Unavailable Unavailable ALYCIA DILLON Unavailable [address] + [place] [address] DILLON, KIM Unavailable Unavailable Unavailable DOMINGO, MAGO Unavailable Unavailable Unavailable MARC DILLONON Unavailable [address] + [place] [address] DILLON, KIM Unavailable Unavailable Unavailable DOMINGO, MAGO Unavailable Unavailable Unavailable SANTANA ALYCIA Unavailable [address] + [place] [address] DILLON, KIM Unavailable Unavailable Unavailable DOMINGO, MAGO Unavailable Unavailable Unavailable ALYCIA DILLON Unavailable [address] + [place] [address] DILLON, KIM Unavailable Unavailable Unavailable DOMINGO, MAGO Unavailable Unavailable Unavailable ALYCIA DILLON Unavailable [address] + [place] [address] DILLON, KIM Unavailable Unavailable Unavailable DOMINGO, MAGO Unavailable Unavailable Unavailable ALYCIA DILLON Unavailable [address] + [place] [address] DILLON, KIM Unavailable Unavailable Unavailable DOMINGO, MAGO Unavailable Unavailable Unavailable ALYCIA DILLON Unavailable [address] + [place] [address] DILLON, KIM Unavailable Unavailable Unavailable DOMINGO, MAGO Unavailable Unavailable Unavailable ALYCIA DILLON Unavailable [address] + [place] [address] DILLON, KIM Unavailable Unavailable Unavailable DOMINGO, MAGO Unavailable Unavailable Unavailable SANTANA ALYCIA Unavailable [address] + [place] [address] DILLON, KIM Unavailable Unavailable Unavailable DOMINGO, MAGO Unavailable Unavailable Unavailable ALYCIA DILLON Unavailable [address] + [place] [address] DILLON, KIM Unavailable Unavailable Unavailable ALYCIA DILLON Unavailable Unavailable + ALYCIA DILLON Unavailable Unavailable + ALYCIA DILLON Unavailable Unavailable + DOMINGO, MAGO Unavailable Unavailable Unavailable ALYCIA DILLON Unavailable [address] + [place] [address] EPI DILLONORAH Unavailable Unavailable Unavailable DOMINGO, MAGO Unavailable Unavailable Unavailable ALYCIA DILLON Unavailable [address] + [place] [address] EPI DILLONORAH Unavailable Unavailable Unavailable ALYCIA DILLON Unavailable Unavailable + DOMINGO, MAGO Unavailable Unavailable Unavailable ALYCIA DILLON Unavailable [address] + [place] [address] SANTANA KIM Unavailable Unavailable Unavailable DOMINGO, MAGO Unavailable Unavailable Unavailable ALYCIA DILLON Unavailable [address] + [place] [address] EPI DILLONORAH Unavailable Unavailable Unavailable DOMINGO, MAGO Unavailable Unavailable Unavailable ALYCIA DILLON Unavailable [address] + [place] [address] EPI DILLONORAH Unavailable Unavailable Unavailable DOMINGO, MAGO Unavailable Unavailable Unavailable ALYCIA DILLON Unavailable [address] + [place] [address] EPI DILLONORAH Unavailable Unavailable Unavailable ALYCIA DILLON Unavailable Unavailable + D Unavailable Unavailable Unavailable Alycia Dillon Unavailable [address] + [place] [address] DOMINGO, MAGO Unavailable Unavailable Unavailable ALYCIA DILLON Unavailable [address] + [place] [address] EPI DILLONORAH Unavailable Unavailable Unavailable D Unavailable Unavailable Unavailable Alycia Dillon Unavailable [address] + [place] [address] ALYCIA DILLON Unavailable Unavailable + D Unavailable Unavailable Unavailable Alycia Dillon Unavailable [address] + [place] [address] DOMINGO, AMGO Unavailable Unavailable Unavailable ALYCIA DILLON Unavailable [address] + [place] [address] EPI DILLONORAH Unavailable Unavailable Unavailable D Unavailable Unavailable Unavailable Alycia Dillon Unavailable [address] + [place] [address] D Unavailable Unavailable Unavailable Alycia Dillon Unavailable [address] + [place] [address] TREY DOMINGOA Unavailable Unavailable Unavailable ALYCIA DILLON Unavailable [address] + [place] [address] DEVANG DILLONH Unavailable Unavailable Unavailable D Unavailable Unavailable Unavailable ALYCIA DILLON Unavailable [address] + [place] [address] D Unavailable Unavailable Unavailable Alycia Dillon Unavailable [address] + [place] [address] DOMINGO, MAGO Unavailable Unavailable Unavailable ALYCIA DILLON Unavailable [address] + [place] [address] EPI DILLONORAH Unavailable Unavailable Unavailable DOMINGO, MAGO Unavailable Unavailable Unavailable ALYCIA DILLON Unavailable [address] + [place] [address] KIM DILLON Unavailable Unavailable Unavailable D Unavailable Unavailable Unavailable Alycia Dillon Unavailable [address] + [place] [address] ALYCIA DILLON Unavailable Unavailable + D Unavailable Unavailable Unavailable ALYCIA DILLON Unavailable [address] + [place] [address] DOMINGO, MAGO Unavailable Unavailable Unavailable ALYCIA DILLON Unavailable [address] + [place] [address] EPI DILLONORAH Unavailable Unavailable Unavailable DOMINGO, MAGO Unavailable Unavailable Unavailable ALYCIA DILLON Unavailable [address] + [place] [address] SANTANA KIM Unavailable Unavailable Unavailable DOMINGO, MAGO Unavailable Unavailable Unavailable ALYCIA DILLON Unavailable [address] + [place] [address] EPI DILLONORAH Unavailable Unavailable Unavailable DOMINGO, MAGO Unavailable Unavailable Unavailable ALYCIA DILLON Unavailable [address] + [place] [address] EPI DILLONORAH Unavailable Unavailable Unavailable DOMINGO, MAGO Unavailable Unavailable Unavailable ALYCIA DILLON Unavailable [address] + [place] [address] DILLON, KIM Unavailable Unavailable Unavailable ALYCIA DILLON Unavailable Unavailable + MARC DILLONON Unavailable Unavailable + DOMINGO, MAGO Unavailable Unavailable Unavailable ALYCIA DILLON Unavailable [address] + [place] [address] DILLON, KIM Unavailable Unavailable Unavailable DOMINGO, MAGO Unavailable Unavailable Unavailable ALYCIA DILLON Unavailable [address] + [place] [address] DILLON, KIM Unavailable Unavailable Unavailable DOMINGO, MAGO Unavailable Unavailable Unavailable ALYCIA DILLON Unavailable [address] + [place] [address] DILLON, KIM Unavailable Unavailable Unavailable DOMINGO, MAGO Unavailable Unavailable Unavailable ALYCIA DILLON Unavailable [address] + [place] [address] DILLON, KIM Unavailable Unavailable Unavailable DOMINGO, MAGO Unavailable Unavailable Unavailable ALYCIA DILLON Unavailable [address] + [place] [address] DILLON, KIM Unavailable Unavailable Unavailable DOMINGO, MAGO Unavailable Unavailable Unavailable ALYCIA DILLON Unavailable [address] + [place] [address] DILLON, KIM Unavailable Unavailable Unavailable DOMINGO, MAGO Unavailable Unavailable Unavailable ALYCIA DILLON Unavailable [address] + [place] [address] DILLON, KIM Unavailable Unavailable Unavailable DOMINGO, MAGO Unavailable Unavailable Unavailable ALYCIA DILLON Unavailable [address] + [place] [address] DILLON, KIM Unavailable Unavailable Unavailable DOMINGO, MAGO Unavailable Unavailable Unavailable ALYCIA DILLON Unavailable [address] + [place] [address] DILLON, KIM Unavailable Unavailable Unavailable DOMINGO, MAGO Unavailable Unavailable Unavailable ALYCIA DILLON Unavailable [address] + [place] [address] DILLON, KIM Unavailable Unavailable Unavailable DOMINGO, MAGO Unavailable Unavailable Unavailable MARC DILLONON Unavailable [address] + [place] [address] DILLON, KIM Unavailable Unavailable Unavailable DOMINGO, MAGO Unavailable Unavailable Unavailable SANTANAALYCIA Unavailable [address] + [place] [address] KIM DILLON Unavailable Unavailable Unavailable Care Team Providers Name Role Phone ALDEN ARGUELLES Attending Unavailable ALDEN ARGUELLES Referring Unavailable Emanuel, Azul Primary Care Unavailable Karen, Rita E Attending Unavailable Emanuel, Azul Primary Care Unavailable ALDEN ARGUELLES Attending Unavailable ALDEN ARGUELLES Referring Unavailable Emanuel, Azul Primary Care Unavailable Karen, Rita E Attending Unavailable Emanuel, Azul Primary Care Unavailable Karen, Rita E Consulting Unavailable Ryan Quarles Attending Unavailable Tourlas, Carlos Primary Care Unavailable Karen, Rita E Attending Unavailable Emanuel, Azul Primary Care Unavailable ALDEN ARGUELLES Attending Unavailable ALDEN ARGUELLES Referring Unavailable Tourlas, Carlos Primary Care Unavailable ALDEN ARGUELLES Attending Unavailable ALDEN ARGUELLES Referring Unavailable Tourlas, Carlos Primary Care Unavailable Fang, Kike Attending Unavailable Headley, Kike Attending Unavailable Headley, Kike Attending Unavailable Headley, Kike Attending Unavailable Headley, Kike Attending Unavailable Headley, Kike Attending Unavailable Headley, Kike Attending Unavailable EMANUEL, AZUL L Primary Care Unavailable SRINI MAURICIO Admitting Unavailable CONSULT, INFECTIOUS DISEASE Consulting [...] Care Unavailable RAIMUNDO, CATHY L Attending Unavailable ARIMUNDO, CATHY L Referring Unavailable EMANUEL, AZUL L Primary Care Unavailable RAIMUNDO, CATHY L Attending Unavailable RAIMUNDO, CATHY L Referring Unavailable EMANUEL, AZUL L Primary Care Unavailable CA, AMRIT Referring Unavailable EMANUEL, AZUL L Primary Care Unavailable TAYA LINCOLN Attending Unavailable SINDY CHERRY Attending Unavailable AC, AMRIT Referring Unavailable EMANUEL, AUZL L Primary Care Unavailable AC, AMRIT Referring [...] DISEASE Consulting Unavailable KWAME CHERRY Attending Unavailable DENOMINATIONAL, SAMUEL BONNIE Attending Unavailable MATHEW, ANTALIA Referring Unavailable EMANUEL, AZUL L Primary Care Unavailable DENOMINATIONAL, SAMUEL BONNIE Attending Unavailable MATHEW, NATALIA Referring Unavailable EMANUEL, AZUL L Primary Care Unavailable DENOMINATIONAL, SAMUEL BONNIE Attending Unavailable MATHEW, NATALIA Referring Unavailable EMANUEL, AZUL L Primary Care Unavailable DENOMINATIONAL, SAMUEL BONNIE Attending Unavailable MATHEW, NATALIA Referring Unavailable EMANUEL, AZUL L Primary Care Unavailable DENOMINATIONAL, SAMUEL BONNIE Attending Unavailable MATHEW, NATALIA Referring [...] Unavailable Emanuel, Azul L Primary Care Unavailable Sara, Radames [...] Admitting 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 elsewhere classified Center / E88.09(ICD-10) Repository 08/14/2018 Admitting Abnormal findings on KWAME CHERRY Active [facility] diagnosis diagnostic imaging University of other specified 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 C83.30(ICD-10) Center Repository 08/14/2018 Admitting Acute kidney KWAME CHERRY Active [facility] diagnosis failure, unspecified University / N17.9(ICD-10) [facility] Repository 08/12/2018 Admitting Chronic kidney KWAME CHERRY Active [facility] diagnosis disease, stage 3 University (moderate) / [facility] N18.3(ICD-10) Center Repository 08/06/2018 Admitting Encephalopathy, KWAME CHERRY Active [facility] diagnosis unspecified / University G93.40(ICD-10) [facility] Repository 08/03/2018 Admitting Cellulitis of left KWAME CHERRY Active [facility] diagnosis lower limb / University L03.116(ICD-10) [facility] Repository 07/31/2018 Admitting Obstructive sleep KWAME CHERRY BABS [facility] diagnosis apnea (adult) University (pediatric) / [facility] G47.33(ICD-10) Center Repository 07/24/2018 Admitting Other specified KWAME CHERRY Active [facility] diagnosis disorders of bladder [place] / N32.89(ICD-10) [facility] Repository 07/23/2018 Admitting Cellulitis of KWAME CHERRY Active [facility] diagnosis unspecified part of University limb / [facility] L03.119(ICD-10) Center Repository 07/22/2018 Admitting Unspecified b-cell KWAME CHERRY Active [facility] diagnosis lymphoma, extranodal University and solid organ [facility] sites / Center C85.19(ICD-10) Repository 07/22/2018 Admitting Malignant neoplasm KWAME CHERRY Active [facility] diagnosis of bladder, University unspecified / [facility] C67.9(ICD-10) Center Repository 07/22/2018 Admitting Encounter for KWAME CHERRY Active [facility] diagnosis palliative care / University Z51.5(ICD-10) [facility] Repository 07/22/2018 Admitting Follow-up / 145() ALDEN HAMILTON Active [facility] diagnosis L University [facility] Repository 07/22/2018 Admitting New Patient / ALDEN HAMILTON Active [facility] diagnosis [id number]() L [facility] Repository 07/23/2018 Admitting Cellulitis, NATALIA CARMONA Active [facility] diagnosis unspecified / University L03.90(ICD-10) [facility] Repository 07/22/2018 Admitting Other pancytopenia / NATALIA CARMONA Active [facility] diagnosis D61.818(ICD-10) [facility] Repository 07/22/2018 Admitting Sepsis, unspecified MATHEW NATALIA Active [facility] diagnosis organism / University A41.9(ICD-10) [facility] Repository 07/22/2018 Admitting Edema, unspecified / NATALIA CARMONA Active [facility] diagnosis R60.9(ICD-10) [facility] Repository 07/22/2018 Admitting Shortness of breath MATHEW NATALIA [facility] diagnosis / R06.02(ICD-10) [facility] Repository 07/22/2018 Admitting Pain in left hip / MATHEW NATALIA [facility] diagnosis M25.552(ICD-10) [facility] Repository 07/14/2018 Admitting Anemia, unspecified NATALIA CARMONA [facility] diagnosis / D64.9(ICD-10) [facility] Repository 04/08/2018 Admitting Nonalcoholic IHISSCHEDULE, [facility] diagnosis steatohepatitis [facility] ([facility]) / [facility] K75.81(ICD-10) Center Repository 04/08/2018 Admitting Unspecified IHISSCHEDULE, [facility] diagnosis cirrhosis of liver / [facility] K74.60(ICD-10) [facility] Repository 07/13/2018 Admitting Pyogenic arthritis, DENOMINATIONAL, SAMUEL Active [facility] diagnosis unspecified / Counts include 234 beds at the [facility] M00.9(ICD-10) [facility] Repository 07/07/2018 Admitting Neoplasm related DENOMINATIONAL, SAMUEL [facility] diagnosis pain (acute) Counts include 234 beds at the [facility] (chronic) / [facility] G89.3(ICD-10) Center Repository 07/07/2018 Admitting Malignant neoplasm DENOMINATIONAL, SAMUEL Active [facility] diagnosis of urinary organ, Counts include 234 beds at the [facility] unspecified / [facility] C68.9(ICD-10) Center Repository 07/07/2018 Admitting Other specified DENOMINATIONAL, SAMUEL [facility] diabetes mellitus Counts include 234 beds at the [facility] with hyperglycemia / [facility] E13.65(ICD-10) Center Repository 07/07/2018 Admitting penitentiary (current) SAMUEL CANSECO Active [facility] diagnosis use of insulin / Counts include 234 beds at the [facility] Z79.4(ICD-10) [facility] Repository 07/07/2018 Admitting Gross hematuria / SAMUEL CANSECO Active [facility] diagnosis R31.0(ICD-10) [facility] Repository 06/27/2018 Admitting Bacteremia / DENOMINATIONAL, SAMUEL Active [facility] diagnosis R78.81(ICD-10) [facility] Repository 06/27/2018 Admitting Unspecified B-cell DENOMINATIONAL, SAMUEL Active [facility] diagnosis lymphoma, Counts include 234 beds at the [facility] unspecified site / [facility] C85.10(ICD-10) Center Repository 06/27/2018 Admitting Disorder of bone, DENOMINATIONAL, SAMUEL Active [facility] diagnosis unspecified / Counts include 234 beds at the [facility] M89.9(ICD-10) [facility] Repository 06/27/2018 Admitting Other cirrhosis of SAMUEL CANSECO Active [facility] diagnosis liver / Counts include 234 beds at the [facility] K74.69(ICD-10) [facility] Repository 06/27/2018 Admitting Diffuse large b-cell SAMUEL CANSECO Active [facility] diagnosis lymphoma, lymph Counts include 234 beds at the [facility] nodes of multiple [facility] sites / Center C83.38(ICD-10) Repository 06/22/2018 Admitting Personal history of RAIMUNDOCATHY CHOWDARY L Active [facility] diagnosis malignant neoplasm University of bladder / 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 C67.8(ICD-10) Center Repository 03/10/2018 Admitting Cirrhosis / MAVERICK LUNA Active [facility] diagnosis [id number]() [facility] Repository 02/24/2018 Admitting Fall / [id number]() SRINI RODRÍGUEZ Active [facility] diagnosis [facility] Repository 02/24/2018 Admitting Headache / 52() SRINI RODRÍGUEZ Active [facility] diagnosis [facility] Repository 02/11/2018 Admitting Unspecified mycosis BONNIE ARAUZ Active [facility] diagnosis / B49(ICD-10) [facility] Repository 02/11/2018 Admitting Osteomyelitis, BONNIE ARAUZ Active [facility] diagnosis unspecified / [facility] M86.9(ICD-10) [facility] Repository 02/10/2018 Admitting Post-Discharge MARVIN JUAREZ Active [facility] diagnosis Follow Up / 403() [facility] Repository 02/01/2018 Unknown M86.172 - Other ALDEN ARGUELLES [facility] acute osteomyelitis, [facility] ankle and foot [facility] 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 Z98.890(ICD-10) Center Repository 01/21/2018 [facility] Repository 01/21/2018 Admitting Paperwork / 111() NIKOLAY, [facility] diagnosis [facility] Repository 01/21/2018 Admitting Pain / 121() NIKOLAY, [facility] diagnosis [facility] Repository 01/13/2018 Admitting Primary insomnia / NIKO, SINDY J Active [facility] diagnosis F51.01(ICD-10) [facility] Hospital Repository 01/10/2018 Admitting Abscess of bursa, DEANDRA DANIELS Active [facility] diagnosis [facility] ankle and foot [place] / M71.072(ICD-10) [facility] Repository 01/04/2018 Admitting Other acute DEANDRA DANIELS Active [facility] M86.172(ICD-10) Center Repository 01/04/2018 Admitting Open bite, DANIELS, DEANDRA J Active [facility] diagnosis unspecified lower [facility] leg, initial [facility] encounter / Center S81.859A(ICD-10) Repository 01/04/2018 Admitting Local infection of DEANDRA DANIELS Active [facility] diagnosis the skin and [place] subcutaneous tissue, 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 biological [place] substances, Repository subsequent encounter / T50.995D(ICD-10) 09/16/2017 Admitting Encounter for EFRAIN, Active [facility] diagnosis preprocedural [facility] cardiovascular [facility] examination / Center Z01.810(ICD-10) Repository 10/16/2017 Admitting Cystoscopy / 600() PACO KIMBLE Active [facility] diagnosis [facility] Repository 10/16/2017 Admitting Malignant neoplasm JESSY BLACKMON A Active [facility] diagnosis of bladder, [facility] unspecified (HCC) / [facility] C67.9(ICD-10) Center Repository 09/15/2017 Admitting Liver Recipient JUAN ALBERTO ErinJadon Active [facility] diagnosis Evaluation / [facility] [id number]() [facility] Repository 09/02/2017 Admitting Unspecified JESSY BLACKMON A Active [facility] diagnosis cirrhosis of liver [facility] (HCC) / [facility] K74.60(ICD-10) Center Repository PROCEDURES PROCEDURES No Procedure Records FoundRESULTS RESULTS *POC GLUCOSE BATTERY Collected: 08/21/2018 Status: F Source: [place] 10:42 PM [facility] REPOSITORY TYPE CODE TESTS RESULT OUT OF REFERENCE UNITS RANGE LAB GLUP 70-99 mg/dL High Glucose (poc 154 device) Result Comment: No BRAVE per RN: PATIENT TYPE LAB PCSTYP *POC Capillary SAMPLE TYPE Blood CT HEAD WITHOUT Observed: 08/21/2018 Status: F Source: [place] CONTRAST 12:57 PM [facility] REPOSITORY EXAM: CT HEAD WITHOUT CONTRAST, 08/21/2018 [...] GLUCOSE BATTERY Collected: 08/21/2018 Status: F Source: [facility] 12:05 PM [facility] REPOSITORY TYPE CODE TESTS RESULT OUT OF REFERENCE UNITS RANGE LAB GLUP 70-99 mg/dL High Glucose (poc 153 device) Result Comment: No BRAVE per RN: PATIENT TYPE LAB PCSTYP *POC Capillary SAMPLE TYPE Blood XR CHEST PORTABLE Observed: 08/21/2018 Status: F Source: [facility] 11:43 AM [facility] REPOSITORY EXAM: XR CHEST PORTABLE, 08/21/2018 11:26 [...] the midtrachea. Observed: 08/21/2018 Status: F Source: [facility] RESPIRATORY CULTURE 11:02 AM [facility] REPOSITORY SOURCE: Sputum-Aspirated: Tracheal Aspirate MICROSCOPIC: Neutrophils, Heavy NO ORGANISMS SEEN SPECIMEN IS OF OPTIMAL QUALITY QUANTITATION: Total Microbial Growth, Light RESULT: ---Common Oropharyngeal Microbes--- REPORT STATUS: 08/23/2018 FINAL Performed By: #### RES #### [address] [address] Blood Cultures processed at: [facility] TROPONIN I Collected: 08/21/2018 Status: F Source: [facility] 8:06 AM [facility] REPOSITORY TYPE CODE TESTS RESULT OUT OF REFERENCE UNITS RANGE LAB TROP <0.11 ng/mL Troponin I 0.01 Performed By: #### TROP #### [facility] [address] [place] [address] [facility] [address] [place], [place] [address] XR WRIST LEFT 3 Observed: 08/21/2018 Status: F Source: [facility] VIEWS 7:59 AM [facility] REPOSITORY EXAM: XR WRIST LEFT 3 VIEWS [...] GLUCOSE BATTERY Collected: 08/21/2018 Status: F Source: [facility] 7:59 AM [facility] REPOSITORY TYPE CODE TESTS RESULT OUT OF REFERENCE UNITS RANGE LAB GLUP 70-99 mg/dL High Glucose (poc 118 device) Result Comment: Meets BRAVE per RN: PATIENT TYPE LAB PCSTYP *POC SAMPLE TYPE Venous XR CHEST PORTABLE Observed: 08/21/2018 Status: F Source: [facility] 6:13 AM [facility] REPOSITORY EXAM: XR CHEST PORTABLE, 08/20/2018 23:24 PM COMPARISON: August 16, 2018 CLINICAL INDICATIONS: Intubation RELEVANT CLINICAL HISTORY: FINDINGS: (Adequate technique) Life Support Devices: ET tube is 1.1 cm above the senia. The esophagogastric tube terminates beneath the diaphragm, outside the [id number]. Right port and right IJ CVC remain [...] 1 VIEW Observed: 08/21/2018 Status: F Source: [facility] 6:13 AM [facility] REPOSITORY EXAM: XR ABDOMEN 1 VIEW, 08/20/2018 [...] GLUCOSE BATTERY Collected: 08/21/2018 Status: F Source: [facility] 5:45 AM [facility] REPOSITORY TYPE CODE TESTS RESULT OUT OF REFERENCE UNITS RANGE LAB GLUP 70-99 mg/dL High Glucose (poc 115 device) Result Comment: No BRAVE per RN: PATIENT TYPE LAB PCSTYP *POC Capillary SAMPLE TYPE Blood Observed: 08/21/2018 Status: F Source: [facility] TYPE AND CROSS 12:55 AM [facility] REPOSITORY ABO/RH(D): O POSITIVE ANTIBODY SCREEN: NEGATIVE Performed By: #### XM #### [facility] [place] [address] [place] [address] CBC,PLATELET,DIFFERENTIAL - CCL Collected: Status: F Source: [facility] 08/21/2018 12:47 [facility] REPOSITORY TYPE CODE TESTS RESULT [...] 0.72 Low LAB AMONO 0.22-0.87 K/uL Abs [facility] 0.78 LAB AEOS 0.00-0.42 K/uL Abs Eos 0.88 High LAB ABASO 0.00-0.15 K/uL Abs Baso 0.06 Performed By: #### CBCDFC, PTPTT, TROP, CA, CHM7, CKB, HFP, IPB, MGO, TRIG #### [facility] [address] [place] [address] [place] [address] PT*PTT Collected: 08/21/2018 Status: F Source: [facility] 12:47 AM [facility] REPOSITORY TYPE CODE TESTS RESULT OUT OF RANGE REFERENCE UNITS LAB PT 11.9-14.2 sec High PT 18.0 LAB INR 0.9-1.1 High INR 1.5 LAB PTT 24.0-34.3 sec High PTT 39.6 Performed By: #### CBCDFC, PTPTT, TROP, CA, CHM7, CKB, HFP, IPB, MGO, TRIG #### [facility] [address] [place] [address] [facility] [address] [place] [address] TROPONIN I Collected: 08/21/2018 Status: F Source: [facility] 12:47 AM [facility] REPOSITORY TYPE CODE TESTS RESULT OUT OF REFERENCE UNITS RANGE LAB TROP <0.11 ng/mL Troponin I 0.01 Performed By: #### CBCDFC, PTPTT, TROP, CA, CHM7, CKB, HFP, IPB, MGO, TRIG #### [facility] [address] [place] [address] [facility] [address] [place] [address] CALCIUM Collected: 08/21/2018 Status: F Source: [facility] 12:47 AM [facility] REPOSITORY TYPE CODE TESTS RESULT OUT OF REFERENCE UNITS RANGE LAB CA 8.6-10.5 mg/dL Low Calcium 7.5 Performed By: #### CBCDFC, PTPTT, TROP, CA, CHM7, CKB, HFP, IPB, MGO, TRIG #### [facility] [address] [place] [address] [address] [place] [address] CHEM 7 Collected: 08/21/2018 Status: F Source: [facility] 12:47 AM [facility] REPOSITORY TYPE CODE TESTS RESULT [...] >60 mL/min/1.73 Low sqM Est GFR,non 13 Dutch LAB GFRA >60 mL/min/1.73 Low sqM Est GFR, 16 Performed By: #### CBCDFC, PTPTT, TROP, CA, CHM7, CKB, HFP, IPB, MGO, TRIG #### [facility] [address] [place] [phone] [facility] [address] [place] [address] CK Collected: 08/21/2018 Status: F Source: [facility] 12:47 AM [facility] REPOSITORY TYPE CODE TESTS RESULT OUT OF REFERENCE UNITS RANGE LAB CK 30-184 U/L Low Creatine 19 Kinase Performed By: #### CBCDFC, PTPTT, TROP, CA, CHM7, CKB, HFP, IPB, MGO, TRIG #### [facility] [address] [place] [address] [place] [address] HEPATIC FUNCTION Collected: 08/21/2018 Status: F Source: [facility] 12:47 AM [facility] REPOSITORY TYPE CODE TESTS RESULT [...] CKB, HFP, IPB, MGO, TRIG #### [facility] [address] [place] [address] [facility] [address] [place] [address] INORGANIC PHOSPHATE Collected: 08/21/2018 Status: F Source: [facility] 12:47 AM [facility] REPOSITORY TYPE CODE TESTS RESULT OUT OF REFERENCE UNITS RANGE LAB IP 2.2-4.6 mg/dL Inorg Phosphate 4.2 Performed By: #### CBCDFC, PTPTT, TROP, CA, CHM7, CKB, HFP, IPB, MGO, TRIG #### [facility] [address] [place], [place] [phone] [facility] [address] [place] [address] MAGNESIUM Collected: 08/21/2018 Status: F Source: [facility] 12:47 AM [facility] REPOSITORY TYPE CODE TESTS RESULT OUT OF REFERENCE UNITS RANGE LAB MG 1.6-2.6 mg/dL Magnesium 2.1 Performed By: #### CBCDFC, PTPTT, TROP, CA, CHM7, CKB, HFP, IPB, MGO, TRIG #### [facility] [address] [place] [phone] [facility] [address] [place] [address] TRIGLYCERIDES Collected: 08/21/2018 Status: F Source: [facility] 12:47 AM [facility] REPOSITORY TYPE CODE TESTS RESULT OUT OF REFERENCE UNITS RANGE LAB TRIG <150 mg/dL TRIGLYCERIDES 147 Performed By: #### CBCDFC, PTPTT, TROP, CA, CHM7, CKB, HFP, IPB, MGO, TRIG #### [facility] [address] [place] [phone] [facility] [address] [place] [address] Observed: 08/21/2018 Status: F Source: [facility] BLOOD:ROUTINE II 12:31 AM [facility] REPOSITORY SOURCE: BLOOD, PERIPHERAL: Site not specified RESULT: NO GROWTH DAY 5 OF 5 REPORT STATUS: 08/26/2018 FINAL Performed By: Frida ABRAHAM2 #### [address] [address] Blood Cultures processed at: [facility] *POC GLUCOSE BATTERY Collected: 08/21/2018 Status: F Source: [facility] 12:28 AM [facility] REPOSITORY TYPE CODE TESTS RESULT OUT OF REFERENCE UNITS RANGE LAB GLUP 70-99 mg/dL High Glucose (poc 142 device) Result Comment: No BRAVE per RN: PATIENT TYPE LAB PCSTYP *POC Capillary SAMPLE TYPE Blood Observed: 08/20/2018 Status: F Source: [facility] BLOOD:ROUTINE I 10:53 PM [facility] REPOSITORY SOURCE: BLOOD, PERIPHERAL: Site not specified RESULT: NO GROWTH DAY 5 OF 5 REPORT STATUS: 08/25/2018 FINAL Performed By: #Sintia ABRAHAM #### [address] [address] Blood Cultures processed at: [facility] Observed: 08/20/2018 Status: F Source: [facility] BLOOD:LINE ASSESSMENT 10:[address] REPOSITORY SOURCE: LINE, PERMACATH: PIGTAIL RESULT: NO GROWTH DAY 5 OF 5 REPORT STATUS: 08/25/2018 FINAL Performed By: #### LINE2 #### [place] [address] Blood Cultures processed at: [facility] *POC GLUCOSE BATTERY Collected: 08/20/2018 Status: F Source: [facility] 9:56 PM [facility] REPOSITORY TYPE CODE TESTS RESULT OUT OF REFERENCE UNITS RANGE LAB GLUP 70-99 mg/dL High Glucose (poc 150 device) Result Comment: Meets BRAVE per RN: PATIENT TYPE LAB PCSTYP *POC Arterial SAMPLE TYPE HEMOGRAM (CBC AND Collected: 08/20/2018 Status: F Source: [facility] PLATELET) 9:50 PM [facility] REPOSITORY TYPE CODE TESTS RESULT [...] CHM7, HFP, PTPTT, FIB, TROP #### [facility] [address] [place] [phone] [place] [address] [place] [address] CHEM 7 Collected: 08/20/2018 Status: F Source: [facility] 9:50 PM [facility] REPOSITORY TYPE CODE TESTS RESULT [...] >60 mL/min/1.73 Low sqM Est GFR,non 13 Dutch LAB GFRA >60 mL/min/1.73 Low sqM Est GFR, 16 Performed By: #### HEMOGC, CHM7, HFP, PTPTT, FIB, TROP #### [facility] [address] [place] [phone] [place] [address] [place] [phone] HEPATIC FUNCTION Collected: 08/20/2018 Status: F Source: [facility] 9:50 PM [facility] REPOSITORY TYPE CODE TESTS RESULT [...] CHM7, HFP, PTPTT, FIB, TROP #### [facility] [address] [place] [phone] [place] [address] [place] [address] PT*PTT Collected: 08/20/2018 Status: F Source: [facility] 9:50 PM [facility] REPOSITORY TYPE CODE TESTS RESULT OUT OF RANGE REFERENCE UNITS LAB PT 11.9-14.2 sec High PT 17.7 LAB INR 0.9-1.1 High INR 1.5 LAB PTT 24.0-34.3 sec High PTT 37.9 Performed By: #### HEMOGC, CHM7, HFP, PTPTT, FIB, TROP #### [facility] [address] [place] [address] [place] [address] FIBRINOGEN-CLOTTABLE Collected: Status: F Source: [facility] 08/20/2018 9:50 PM [facility] REPOSITORY TYPE CODE TESTS RESULT OUT OF RANGE REFERENCE UNITS LAB FIB 220-410 mg/dL 266 Fibrinogen-C lottable Performed By: #### HEMOGC, CHM7, HFP, PTPTT, FIB, TROP #### [facility] [address] [place] [address] [place] [address] TROPONIN I Collected: 08/20/2018 Status: F Source: [facility] 9:50 PM [facility] REPOSITORY TYPE CODE TESTS RESULT OUT OF REFERENCE UNITS RANGE LAB TROP <0.11 ng/mL Troponin I 0.01 Performed By: #### HEMOGC, CHM7, HFP, PTPTT, FIB, TROP #### [facility] [address] [place] [address] [place] [address] AMMONIA Collected: 08/20/2018 Status: F Source: [facility] 9:50 PM [facility] REPOSITORY TYPE CODE TESTS RESULT OUT OF REFERENCE UNITS RANGE LAB NH3 6-47 umol/L High Ammonia 49 Performed By: #### NH3B #### [facility] [address] [place], [place] [phone] [place] [address] [address] [place] [address] *POC GLUCOSE BATTERY Collected: 08/20/2018 Status: F Source: [facility] 8:59 PM [facility] REPOSITORY TYPE CODE TESTS RESULT OUT OF REFERENCE UNITS RANGE LAB GLUP 70-99 mg/dL High Glucose (poc 161 device) Result Comment: Notified RNread back No BRAVE per RN: PATIENT TYPE LAB PCSTYP *POC Capillary SAMPLE TYPE Blood XR ABDOMEN 1 VIEW Observed: 08/20/2018 Status: F Source: [facility] 7:03 PM [facility] REPOSITORY EXAM: XR ABDOMEN 1 VIEW, 08/20/2018 [...] GLUCOSE BATTERY Collected: 08/20/2018 Status: F Source: [facility] 3:32 PM [facility] REPOSITORY TYPE CODE TESTS RESULT OUT OF REFERENCE UNITS RANGE LAB GLUP 70-99 mg/dL High Glucose (poc 117 device) Result Comment: No BRAVE per RN: PATIENT TYPE LAB PCSTYP *POC Capillary SAMPLE TYPE Blood *POC GLUCOSE BATTERY Collected: 08/20/2018 Status: F Source: [facility] 7:30 AM [facility] REPOSITORY TYPE CODE TESTS RESULT OUT OF REFERENCE UNITS RANGE LAB GLUP 70-99 mg/dL High Glucose (poc 133 device) Result Comment: No BRAVE per RN: PATIENT TYPE LAB PCSTYP *POC Capillary SAMPLE TYPE Blood CBC,PLATELET,DIFFERENTIAL - CCL Collected: Status: F Source: [facility] 08/20/2018 4:02 AM [facility] REPOSITORY TYPE CODE TESTS RESULT [...] 0.63 Low LAB AMONO 0.22-0.87 K/uL Abs [facility] 1.06 High LAB AEOS 0.00-0.42 K/uL Abs Eos 1.35 High LAB ABASO 0.00-0.15 K/uL Abs Baso 0.08 Performed By: #### CBCDFC, CA, CHM7, HFP, IPB, MGO, PTPTT #### [facility] [address] [place] [address] [address] [place] [address] CALCIUM Collected: 08/20/2018 Status: F Source: [facility] 4:02 AM [facility] REPOSITORY TYPE CODE TESTS RESULT OUT OF REFERENCE UNITS RANGE LAB CA 8.6-10.5 mg/dL Low Calcium 7.7 Performed By: #### CBCDFC, CA, CHM7, HFP, IPB, MGO, PTPTT #### [facility] [address] [place] [address] [place] [address] CHEM 7 Collected: 08/20/2018 Status: F Source: [facility] 4:02 AM [facility] REPOSITORY TYPE CODE TESTS RESULT [...] >60 mL/min/1.73 Low sqM Est GFR,non 9 Dutch LAB GFRA >60 mL/min/1.73 Low sqM Est GFR, 11 Performed By: #### CBCDFC, CA, CHM7, HFP, IPB, MGO, PTPTT #### [facility] [phone] [place] [address] [place] [address] HEPATIC FUNCTION Collected: 08/20/2018 Status: F Source: [facility] 4:02 [facility] REPOSITORY TYPE CODE TESTS RESULT [...] CHM7, HFP, IPB, MGO, PTPTT #### [facility] [address] [address] [facility] [address] [place] [address] INORGANIC PHOSPHATE Collected: 08/20/2018 Status: F Source: [facility] 4:02 AM [facility] REPOSITORY TYPE CODE TESTS RESULT OUT OF REFERENCE UNITS RANGE LAB IP 2.2-4.6 mg/dL Inorg Phosphate 4.3 Performed By: #### CBCDFC, CA, CHM7, HFP, IPB, MGO, PTPTT #### [facility] [address] [place] [phone] [place] [address] [place] [address] MAGNESIUM Collected: 08/20/2018 Status: F Source: [facility] 4:02 AM [facility] REPOSITORY TYPE CODE TESTS RESULT OUT OF REFERENCE UNITS RANGE LAB MG 1.6-2.6 mg/dL Magnesium 2.3 Performed By: #### CBCDFC, CA, CHM7, HFP, IPB, MGO, PTPTT #### [facility] [address] [place] [address] [place] [address] PT*PTT Collected: 08/20/2018 Status: F Source: [facility] 4:02 AM [facility] REPOSITORY TYPE CODE TESTS RESULT OUT OF RANGE REFERENCE UNITS LAB PT 11.9-14.2 sec High PT 16.7 LAB INR 0.9-1.1 High INR 1.3 LAB PTT 24.0-34.3 sec High PTT 36.2 Performed By: #### CBCDFC, CA, CHM7, HFP, IPB, MGO, PTPTT #### [facility] [address] [place] [address] AMMONIA Collected: 08/20/2018 Status: F Source: [facility] 4:02 AM [facility] REPOSITORY TYPE CODE TESTS RESULT OUT OF REFERENCE UNITS RANGE LAB NH3 6-47 umol/L High Ammonia 58 Performed By: #### NH3B #### [facility] [address] [place] [address] [address] [place] [address] *POC GLUCOSE BATTERY Collected: 08/19/2018 Status: F Source: [facility] 9:25 PM [facility] REPOSITORY TYPE CODE TESTS RESULT OUT OF REFERENCE UNITS RANGE LAB GLUP 70-99 mg/dL High Glucose (poc 198 device) Result Comment: Notified RNread back No BRAVE per RN: PATIENT TYPE LAB PCSTYP *POC Capillary SAMPLE TYPE Blood *POC GLUCOSE BATTERY Collected: 08/19/2018 Status: F Source: [facility] 5:26 PM [facility] REPOSITORY TYPE CODE TESTS RESULT OUT OF REFERENCE UNITS RANGE LAB GLUP 70-99 mg/dL High Glucose (poc 174 device) Result Comment: No BRAVE per RN: PATIENT TYPE LAB PCSTYP *POC Capillary SAMPLE TYPE Blood *POC GLUCOSE BATTERY Collected: 08/19/2018 Status: F Source: [facility] 11:29 AM [facility] REPOSITORY TYPE CODE TESTS RESULT OUT OF REFERENCE UNITS RANGE LAB GLUP 70-99 mg/dL High Glucose (poc 185 device) Result Comment: No BRAVE per RN: PATIENT TYPE LAB PCSTYP *POC Capillary SAMPLE TYPE Blood *POC GLUCOSE BATTERY Collected: 08/19/2018 Status: F Source: [facility] 7:39 AM [facility] REPOSITORY TYPE CODE TESTS RESULT OUT OF REFERENCE UNITS RANGE LAB GLUP 70-99 mg/dL High Glucose (poc 129 device) Result Comment: No BRAVE per RN: PATIENT TYPE LAB PCSTYP *POC Capillary SAMPLE TYPE Blood CBC,PLATELET,DIFFERENTIAL - CCL Collected: Status: F Source: [facility] 08/19/2018 4:14 AM [facility] REPOSITORY TYPE CODE TESTS RESULT [...] 0.58 Low LAB AMONO 0.22-0.87 K/uL Abs [facility] 1.27 High LAB AEOS 0.00-0.42 K/uL Abs Eos 1.10 High LAB ABASO 0.00-0.15 K/uL Abs Baso 0.05 Performed By: #### CBCDFC, PTPTT, CA, CHM7, HFP, IPB, MGO #### [facility] [address] [place] [address] [place] [address] PT*PTT Collected: 08/19/2018 Status: F Source: [facility] 4:14 AM [facility] REPOSITORY TYPE CODE TESTS RESULT OUT OF RANGE REFERENCE UNITS LAB PT 11.9-14.2 sec High PT 17.4 LAB INR 0.9-1.1 High INR 1.4 LAB PTT 24.0-34.3 sec High PTT 42.6 Performed By: #### CBCDFC, PTPTT, CA, CHM7, HFP, IPB, MGO #### [facility] [address] [place] [address] [place] [address] CALCIUM Collected: 08/19/2018 Status: F Source: [facility] 4:14 AM [facility] REPOSITORY TYPE CODE TESTS RESULT OUT OF REFERENCE UNITS RANGE LAB CA 8.6-10.5 mg/dL Low Calcium 7.4 Performed By: #### CBCDFC, PTPTT, CA, CHM7, HFP, IPB, MGO #### [facility] [address] [place] [address] [place] [address] CHEM 7 Collected: 08/19/2018 Status: F Source: [facility] 4:14 AM [facility] REPOSITORY TYPE CODE TESTS RESULT [...] >60 mL/min/1.73 Low sqM Est GFR,non 12 Dutch LAB GFRA >60 mL/min/1.73 Low sqM Est GFR, 14 Performed By: #### CBCDFC, PTPTT, CA, CHM7, HFP, IPB, MGO #### [facility] [place] [address] HEPATIC FUNCTION Collected: 08/19/2018 Status: F Source: [facility] 4:14 [facility] REPOSITORY TYPE CODE TESTS RESULT [...] CA, CHM7, HFP, IPB, MGO #### [facility] [place] [address] INORGANIC PHOSPHATE Collected: 08/19/2018 Status: F Source: [facility] 4:14 AM [facility] REPOSITORY TYPE CODE TESTS RESULT OUT OF REFERENCE UNITS RANGE LAB IP 2.2-4.6 mg/dL Inorg Phosphate 3.8 Performed By: #### CBCDFC, PTPTT, CA, CHM7, HFP, IPB, MGO #### [facility] [address] [place] [address] [facility] [address] [place], [place] [address] MAGNESIUM Collected: 08/19/2018 Status: F Source: [facility] 4:14 AM [facility] REPOSITORY TYPE CODE TESTS RESULT OUT OF REFERENCE UNITS RANGE LAB MG 1.6-2.6 mg/dL Magnesium 2.2 Performed By: #### CBCDFC, PTPTT, CA, CHM7, HFP, IPB, MGO #### [facility] [address] [place] [address] [facility] [address] [place], [place] [address] *POC GLUCOSE BATTERY Collected: 08/18/2018 Status: F Source: [facility] 8:56 PM [facility] REPOSITORY TYPE CODE TESTS RESULT OUT OF REFERENCE UNITS RANGE LAB GLUP 70-99 mg/dL High Glucose (poc 235 device) Result Comment: No BRAVE per RN: PATIENT TYPE LAB PCSTYP *POC Capillary SAMPLE TYPE Blood *POC GLUCOSE BATTERY Collected: 08/18/2018 Status: F Source: [facility] 5:59 PM [facility] REPOSITORY TYPE CODE TESTS RESULT OUT OF REFERENCE UNITS RANGE LAB GLUP 70-99 mg/dL High Glucose (poc 222 device) Result Comment: No BRAVE per RN: PATIENT TYPE LAB PCSTYP *POC Capillary SAMPLE TYPE Blood US ABDOMEN LIVER Observed: 08/18/2018 Status: F Source: [facility] DOPPLER 5:42 PM [facility] REPOSITORY EXAM: US ABDOMEN LIVER DOPPLER, 08/18/2018 [...] GLUCOSE BATTERY Collected: 08/18/2018 Status: F Source: [facility] 12:49 PM [facility] REPOSITORY TYPE CODE TESTS RESULT OUT OF REFERENCE UNITS RANGE LAB GLUP 70-99 mg/dL High Glucose (poc 162 device) Result Comment: No BRAVE per RN: PATIENT TYPE LAB PCSTYP *POC Capillary SAMPLE TYPE Blood *POC GLUCOSE BATTERY Collected: 08/18/2018 Status: F Source: [facility] 7:30 AM [facility] REPOSITORY TYPE CODE TESTS RESULT OUT OF REFERENCE UNITS RANGE LAB GLUP 70-99 mg/dL High Glucose (poc 153 device) Result Comment: No BRAVE per RN: PATIENT TYPE LAB PCSTYP *POC Capillary SAMPLE TYPE Blood CBC,PLATELET,DIFFERENTIAL - CCL Collected: Status: F Source: [facility] 08/18/2018 5:15 AM [facility] REPOSITORY TYPE CODE TESTS RESULT [...] 0.56 Low LAB AMONO 0.22-0.87 K/uL Abs Sutter 1.14 High LAB AEOS 0.00-0.42 K/uL Abs Eos 0.70 High LAB ABASO 0.00-0.15 K/uL Abs Baso 0.07 Performed By: #### CBCDFC, CA, CHM7, HFP, IPB, MGO, PTPTT #### [place] [address] CALCIUM Collected: 08/18/2018 Status: F Source: [facility] 5:15 [facility] REPOSITORY TYPE CODE TESTS RESULT OUT OF REFERENCE UNITS RANGE LAB CA 8.6-10.5 mg/dL Low Calcium 7.6 Performed By: #### CBCDFC, CA, CHM7, HFP, IPB, MGO, PTPTT #### [place] [address] CHEM 7 Collected: 08/18/2018 Status: F Source: [facility] 5:15 [facility] REPOSITORY TYPE CODE TESTS RESULT [...] >60 mL/min/1.73 Low sqM Est GFR,non 9 Dutch LAB GFRA >60 mL/min/1.73 Low sqM Est GFR, 10 Performed By: #### CBCDFC, CA, CHM7, HFP, IPB, MGO, PTPTT #### [facility] [address] [place] [id number] [place] [address] [place] [address] HEPATIC FUNCTION Collected: 08/18/2018 Status: F Source: [facility] 5:15 AM [facility] REPOSITORY TYPE CODE TESTS RESULT [...] CA, CHM7, HFP, IPB, MGO, PTPTT #### [facility] [address] [place] [address] [place] [address] INORGANIC PHOSPHATE Collected: 08/18/2018 Status: F Source: [facility] 5:15 AM [facility] REPOSITORY TYPE CODE TESTS RESULT OUT OF REFERENCE UNITS RANGE LAB IP 2.2-4.6 mg/dL Inorg High Phosphate 5.0 Performed By: #### CBCDFC, CA, CHM7, HFP, IPB, MGO, PTPTT #### [facility] [address] [place] [id number] [place] [address] [place] [address] MAGNESIUM Collected: 08/18/2018 Status: F Source: [facility] 5:15 AM [facility] REPOSITORY TYPE CODE TESTS RESULT OUT OF REFERENCE UNITS RANGE LAB MG 1.6-2.6 mg/dL Magnesium 2.2 Performed By: #### CBCDFC, CA, CHM7, HFP, IPB, MGO, PTPTT #### [facility] [address] [place] [address] [place] [address] PT*PTT Collected: 08/18/2018 Status: F Source: [facility] 5:15 AM [facility] REPOSITORY TYPE CODE TESTS RESULT OUT OF RANGE REFERENCE UNITS LAB PT 11.9-14.2 sec High PT 17.2 LAB INR 0.9-1.1 High INR 1.4 LAB PTT 24.0-34.3 sec High PTT 37.3 Performed By: #### CBCDFC, CA, CHM7, HFP, IPB, MGO, PTPTT #### [facility] [address] [place] [address] [place] [address] Observed: 08/18/2018 Status: F Source: [facility] TYPE AND CROSS 5:15 AM [facility] REPOSITORY ABO/RH(D): O POSITIVE ANTIBODY SCREEN: NEGATIVE Performed By: #### XM #### [facility] [address] [place] [address] [place] [address] *POC GLUCOSE BATTERY Collected: 08/17/2018 Status: F Source: [facility] 10:11 PM [facility] REPOSITORY TYPE CODE TESTS RESULT OUT OF REFERENCE UNITS RANGE LAB GLUP 70-99 mg/dL High Glucose (poc 139 device) Result Comment: Notified RNread back No BRAVE per RN: PATIENT TYPE LAB PCSTYP *POC Capillary SAMPLE TYPE Blood *POC GLUCOSE BATTERY Collected: 08/17/2018 Status: F Source: [facility] 5:41 PM [facility] REPOSITORY TYPE CODE TESTS RESULT OUT OF REFERENCE UNITS RANGE LAB GLUP 70-99 mg/dL High Glucose (poc 164 device) Result Comment: Meets BRAVE per RN: PATIENT TYPE LAB PCSTYP *POC SAMPLE TYPE Venous Observed: 08/17/2018 Status: F Source: [facility] URINE CULTURE -UHE 2:24 PM [facility] REPOSITORY SOURCE: URINE-CLEAN CATCH: RESULT: NO GROWTH REPORT STATUS: 08/18/2018 FINAL Performed By: #### UR #### [place] [address] Blood Cultures processed at: [facility] *POC GLUCOSE BATTERY Collected: 08/17/2018 Status: F Source: [facility] 10:39 AM [facility] REPOSITORY TYPE CODE TESTS RESULT OUT OF REFERENCE UNITS RANGE LAB GLUP 70-99 mg/dL High Glucose (poc 162 device) Result Comment: No BRAVE per RN: PATIENT TYPE LAB PCSTYP *POC Capillary SAMPLE TYPE Blood *POC GLUCOSE BATTERY Collected: 08/17/2018 Status: F Source: [facility] 8:01 AM [facility] REPOSITORY TYPE CODE TESTS RESULT OUT OF REFERENCE UNITS RANGE LAB GLUP 70-99 mg/dL High Glucose (poc 124 device) Result Comment: No BRAVE per RN: PATIENT TYPE LAB PCSTYP *POC Capillary SAMPLE TYPE Blood CBC,PLATELET,DIFFERENTIAL - CCL Collected: Status: F Source: [facility] 08/17/2018 5:55 AM [facility] REPOSITORY TYPE CODE TESTS RESULT [...] 0.48 Low LAB AMONO 0.22-0.87 K/uL Abs Sutter 1.02 High LAB AEOS 0.00-0.42 K/uL Abs Eos 0.47 High LAB ABASO 0.00-0.15 K/uL Abs Baso 0.06 Performed By: #### CBCDFC, CA, CHM7, HFP, IPB, MGO, PTPTT #### [facility] [address] [address] CALCIUM Collected: 08/17/2018 Status: F Source: [facility] 5:55 AM [facility] REPOSITORY TYPE CODE TESTS RESULT OUT OF REFERENCE UNITS RANGE LAB CA 8.6-10.5 mg/dL Low Calcium 7.7 Performed By: #### CBCDFC, CA, CHM7, HFP, IPB, MGO, PTPTT #### [facility] [address] [address] CHEM 7 Collected: 08/17/2018 Status: F Source: [facility] 5:55 AM [facility] REPOSITORY TYPE CODE TESTS RESULT [...] >60 mL/min/1.73 Low sqM Est GFR,non 11 Dutch LAB GFRA >60 mL/min/1.73 Low sqM Est GFR, 13 Performed By: #### CBCDFC, CA, CHM7, HFP, IPB, MGO, PTPTT #### [facility] [address] [place] [address] HEPATIC FUNCTION Collected: 08/17/2018 Status: F Source: [facility] PANEL 5:55 AM [facility] REPOSITORY TYPE CODE TESTS RESULT [...] CA, CHM7, HFP, IPB, MGO, PTPTT #### [facility] [address] [place] [id number] [place] [address] INORGANIC PHOSPHATE Collected: 08/17/2018 Status: F Source: [facility] 5:55 AM [facility] REPOSITORY TYPE CODE TESTS RESULT OUT OF REFERENCE UNITS RANGE LAB IP 2.2-4.6 mg/dL Inorg Phosphate 4.4 Performed By: #### CBCDFC, CA, CHM7, HFP, IPB, MGO, PTPTT #### [facility] [address] [place] [phone] [place] [address] [place] [address] MAGNESIUM Collected: 08/17/2018 Status: F Source: [facility] 5:55 AM [facility] REPOSITORY TYPE CODE TESTS RESULT OUT OF REFERENCE UNITS RANGE LAB MG 1.6-2.6 mg/dL Magnesium 2.1 Performed By: #### CBCDFC, CA, CHM7, HFP, IPB, MGO, PTPTT #### [facility] [address] [place] [phone] [place] [address] [place] [address] PT*PTT Collected: 08/17/2018 Status: F Source: [facility] 5:55 AM [facility] REPOSITORY TYPE CODE TESTS RESULT OUT OF RANGE REFERENCE UNITS LAB PT 11.9-14.2 sec High PT 16.9 LAB INR 0.9-1.1 High INR 1.4 LAB PTT 24.0-34.3 sec High PTT 38.2 Performed By: #### CBCDFC, CA, CHM7, HFP, IPB, MGO, PTPTT #### [facility] [address] [place] [address] [place] [address] *POC GLUCOSE BATTERY Collected: 08/16/2018 Status: F Source: [facility] 9:56 PM [facility] REPOSITORY TYPE CODE TESTS RESULT OUT OF REFERENCE UNITS RANGE LAB GLUP 70-99 mg/dL High Glucose (poc 156 device) Result Comment: Notified RNread back No BRAVE per RN: PATIENT TYPE LAB PCSTYP *POC Capillary SAMPLE TYPE Blood URINALYSIS Collected: 08/16/2018 Status: F Source: [facility] 8:54 PM [facility] REPOSITORY TYPE CODE TESTS RESULT OUT OF RANGE REFERENCE UNITS LAB PROCESS CHECKER Clear Appearance Urine Clear LAB SPGR 1.001-1.035 Specific [place] urine 1.007 LAB UGL Negative mg/dL Glucose [...] 3+ Performed By: #### URIN #### [facility] [address] [place] [address] [facility] [address] [place], [place] [address] Observed: 08/16/2018 Status: F Source: [facility] URINE CULTURE -UHE 8:54 PM [facility] REPOSITORY SOURCE: URINE-CLEAN CATCH: RESULT: NO GROWTH REPORT STATUS: 08/18/2018 FINAL Performed By: #### UR #### [facility] [address] [place] [address] Blood Cultures processed at: [facility] *POC GLUCOSE BATTERY Collected: 08/16/2018 Status: F Source: [facility] 5:28 PM [facility] REPOSITORY TYPE CODE TESTS RESULT OUT OF REFERENCE UNITS RANGE LAB GLUP 70-99 mg/dL High Glucose (poc 184 device) Result Comment: Notified RNread back No BRAVE per RN: PATIENT TYPE LAB PCSTYP *POC Capillary SAMPLE TYPE Blood *POC GLUCOSE BATTERY Collected: 08/16/2018 Status: F Source: [facility] 11:30 AM [facility] REPOSITORY TYPE CODE TESTS RESULT OUT OF REFERENCE UNITS RANGE LAB GLUP 70-99 mg/dL High Glucose (poc 233 device) Result Comment: Notified RNread back No BRAVE per RN: PATIENT TYPE LAB PCSTYP *POC Capillary SAMPLE TYPE Blood XR CHEST PORTABLE Observed: 08/16/2018 Status: F Source: [facility] 11:21 AM [facility] REPOSITORY EXAM: XR CHEST PORTABLE, 08/16/2018 09:49 AM COMPARISON: Compared to prior day. CLINICAL INDICATIONS: , fever FINDINGS: Support devices are unchanged. Diffuse airspace disease appears slightly improved. No new consolidation. No pneumothorax or pleural effusion. Heart size stable. IMPRESSION: Slight interval improvement in diffuse bilateral airspace disease. Critical Results: None reported Observed: 08/16/2018 Status: F Source: [facility] BLOOD:ROUTINE I 9:50 AM [facility] REPOSITORY SOURCE: BLOOD, PERIPHERAL: Right Wrist RESULT: NO GROWTH DAY 5 OF 5 REPORT STATUS: 08/21/2018 FINAL Performed By: #### JARAD #### [address] [address] Blood Cultures processed at: [facility] Observed: 08/16/2018 Status: F Source: [facility] BLOOD: LINE ASSESSMENT 8:27 [facility] REPOSITORY SOURCE: LINE MEDIPORT: RESULT: NO GROWTH DAY 5 OF 5 REPORT STATUS: 08/21/2018 FINAL Performed By: #### TAMIR #### [address] [address] Blood Cultures processed at: [facility] Observed: 08/16/2018 Status: F Source: [facility] BLOOD:LINE ASSESSMENT 8:[address] REPOSITORY SOURCE: LINE, HEMODIALYSIS: RESULT: NO GROWTH DAY 5 OF 5 REPORT STATUS: 08/21/2018 FINAL Performed By: #### LINE2 #### [place] [address] Blood Cultures processed at: [facility] *POC GLUCOSE BATTERY Collected: 08/16/2018 Status: F Source: [facility] 7:34 AM [facility] REPOSITORY TYPE CODE TESTS RESULT OUT OF REFERENCE UNITS RANGE LAB GLUP 70-99 mg/dL High Glucose (poc 127 device) Result Comment: Notified RNread back No BRAVE per RN: PATIENT TYPE LAB PCSTYP *POC Capillary SAMPLE TYPE Blood CBC,PLATELET,DIFFERENTIAL - CCL Collected: Status: F Source: [facility] 08/16/2018 4:44 AM [facility] REPOSITORY TYPE CODE TESTS RESULT [...] 0.41 Low LAB AMONO 0.22-0.87 K/uL Abs Sutter 0.82 LAB AEOS 0.00-0.42 K/uL Abs Eos 0.43 High LAB ABASO 0.00-0.15 K/uL Abs Baso 0.08 Performed By: #### CBCDFC, CA, CHM7, HFP, IPB, MGO, PTPTT #### [facility] [address] [place] [address] CALCIUM Collected: 08/16/2018 Status: F Source: [facility] 4:44 [facility] REPOSITORY TYPE CODE TESTS RESULT OUT OF REFERENCE UNITS RANGE LAB CA 8.6-10.5 mg/dL Low Calcium 7.7 Performed By: #### CBCDFC, CA, CHM7, HFP, IPB, MGO, PTPTT #### [place] [address] CHEM 7 Collected: 08/16/2018 Status: F Source: [facility] 4:44 [facility] REPOSITORY TYPE CODE TESTS RESULT [...] >60 mL/min/1.73 Low sqM Est GFR,non 15 Dutch LAB GFRA >60 mL/min/1.73 Low sqM Est GFR, 19 Performed By: #### CBCDFC, CA, CHM7, HFP, IPB, MGO, PTPTT #### [facility] [address] [place] [address] [facility] [address] [place] [address] HEPATIC FUNCTION Collected: 08/16/2018 Status: F Source: [facility] 4:44 [facility] REPOSITORY TYPE CODE TESTS RESULT [...] CHM7, HFP, IPB, MGO, PTPTT #### [facility] [address] [place] [phone] [place] [address] [place] [address] INORGANIC PHOSPHATE Collected: 08/16/2018 Status: F Source: [facility] 4:44 AM [facility] REPOSITORY TYPE CODE TESTS RESULT OUT OF REFERENCE UNITS RANGE LAB IP 2.2-4.6 mg/dL Inorg Phosphate 3.9 Performed By: #### CBCDFC, CA, CHM7, HFP, IPB, MGO, PTPTT #### [facility] [address] [place] [address] [facility] [address] [place] [address] MAGNESIUM Collected: 08/16/2018 Status: F Source: [facility] 4:44 AM [facility] REPOSITORY TYPE CODE TESTS RESULT OUT OF REFERENCE UNITS RANGE LAB MG 1.6-2.6 mg/dL Magnesium 2.0 Performed By: #### CBCDFC, CA, CHM7, HFP, IPB, MGO, PTPTT #### [facility] [address] [place] [address] [facility] [address] [place] [address] PT*PTT Collected: 08/16/2018 Status: F Source: [facility] 4:44 AM [facility] REPOSITORY TYPE CODE TESTS RESULT OUT OF RANGE REFERENCE UNITS LAB PT 11.9-14.2 sec High PT 16.0 LAB INR 0.9-1.1 High INR 1.3 LAB PTT 24.0-34.3 sec High PTT 36.7 Performed By: #### CBCDFC, CA, CHM7, HFP, IPB, MGO, PTPTT #### [facility] [address] [place] [address] [place] [address] *POC GLUCOSE BATTERY Collected: 08/15/2018 Status: F Source: [facility] 9:16 PM [facility] REPOSITORY TYPE CODE TESTS RESULT OUT OF REFERENCE UNITS RANGE LAB GLUP 70-99 mg/dL High Glucose (poc 179 device) Result Comment: No BRAVE per RN: PATIENT TYPE LAB PCSTYP *POC Capillary SAMPLE TYPE Blood *POC GLUCOSE BATTERY Collected: 08/15/2018 Status: F Source: [facility] 6:06 PM [facility] REPOSITORY TYPE CODE TESTS RESULT OUT OF REFERENCE UNITS RANGE LAB GLUP 70-99 mg/dL High Glucose (poc 154 device) Result Comment: No BRAVE per RN: PATIENT TYPE LAB PCSTYP *POC Capillary SAMPLE TYPE Blood *POC GLUCOSE BATTERY Collected: 08/15/2018 Status: F Source: [facility] 11:31 AM [facility] REPOSITORY TYPE CODE TESTS RESULT OUT OF REFERENCE UNITS RANGE LAB GLUP 70-99 mg/dL High Glucose (poc 134 device) Result Comment: No BRAVE per RN: PATIENT TYPE LAB PCSTYP *POC Capillary SAMPLE TYPE Blood *POC GLUCOSE BATTERY Collected: 08/15/2018 Status: F Source: [facility] 7:31 AM [facility] REPOSITORY TYPE CODE TESTS RESULT OUT OF REFERENCE UNITS RANGE LAB GLUP 70-99 mg/dL High Glucose (poc 121 device) Result Comment: No BRAVE per RN: PATIENT TYPE LAB PCSTYP *POC Capillary SAMPLE TYPE Blood CBC,PLATELET,DIFFERENTIAL - CCL Collected: Status: F Source: [facility] 08/15/2018 4:31 AM [facility] REPOSITORY TYPE CODE TESTS RESULT [...] 0.61 Low LAB AMONO 0.22-0.87 K/uL Abs Sutter 0.66 LAB AEOS 0.00-0.42 K/uL Abs Eos 0.49 High LAB ABASO 0.00-0.15 K/uL Abs Baso 0.11 Performed By: #### CBCDFC, CA, CHM7, CKB, HFP, IPB, MGO, PTPTT #### [facility] [address] [place] [address] [place] [address] CALCIUM Collected: 08/15/2018 Status: F Source: [facility] 4:31 AM [facility] REPOSITORY TYPE CODE TESTS RESULT OUT OF REFERENCE UNITS RANGE LAB CA 8.6-10.5 mg/dL Low Calcium 7.7 Performed By: #### CBCDFC, CA, CHM7, CKB, HFP, IPB, MGO, PTPTT #### [facility] [address] [place] [address] [facility] [address] [place] [address] CHEM 7 Collected: 08/15/2018 Status: F Source: [facility] 4:31 AM [facility] REPOSITORY TYPE CODE TESTS RESULT [...] >60 mL/min/1.73 Low sqM Est GFR,non 14 Dutch LAB GFRA >60 mL/min/1.73 Low sqM Est GFR, 17 Performed By: #### CBCDFC, CA, CHM7, CKB, HFP, IPB, MGO, PTPTT #### [facility] [address] [place] [phone] [place] [address] [address] [place] [id number] CK Collected: 08/15/2018 Status: F Source: [facility] 4:31 AM [facility] REPOSITORY TYPE CODE TESTS RESULT OUT OF REFERENCE UNITS RANGE LAB CK 30-184 U/L Creatine 36 Kinase Performed By: #### CBCDFC, CA, CHM7, CKB, HFP, IPB, MGO, PTPTT #### [facility] [address] [place] [phone] [place] [address] [address] [place] [phone] HEPATIC FUNCTION Collected: 08/15/2018 Status: F Source: [facility] 4:31 AM [facility] REPOSITORY TYPE CODE TESTS RESULT [...] CHM7, CKB, HFP, IPB, MGO, PTPTT #### [facility] [address] [place] [phone] [place] [address] [place] [address] INORGANIC PHOSPHATE Collected: 08/15/2018 Status: F Source: [facility] 4:31 AM [facility] REPOSITORY TYPE CODE TESTS RESULT OUT OF REFERENCE UNITS RANGE LAB IP 2.2-4.6 mg/dL Inorg Phosphate 3.8 Performed By: #### CBCDFC, CA, CHM7, CKB, HFP, IPB, MGO, PTPTT #### [facility] [address] [place] [address] [place] [address] MAGNESIUM Collected: 08/15/2018 Status: F Source: [facility] 4:31 AM [facility] REPOSITORY TYPE CODE TESTS RESULT OUT OF REFERENCE UNITS RANGE LAB MG 1.6-2.6 mg/dL Magnesium 2.0 Performed By: #### CBCDFC, CA, CHM7, CKB, HFP, IPB, MGO, PTPTT #### [facility] [address] [place] [id number] [place] [address] [address] [place] [address] PT*PTT Collected: 08/15/2018 Status: F Source: [facility] 4:31 AM [facility] REPOSITORY TYPE CODE TESTS RESULT OUT OF RANGE REFERENCE UNITS LAB PT 11.9-14.2 sec High PT 16.0 LAB INR 0.9-1.1 High INR 1.3 LAB PTT 24.0-34.3 sec High PTT 37.4 Performed By: #### CBCDFC, CA, CHM7, CKB, HFP, IPB, MGO, PTPTT #### [facility] [address] [place] [address] [facility] [address] [place], [place] [address] Observed: 08/15/2018 Status: F Source: [facility] TYPE AND CROSS 4:31 AM [facility] REPOSITORY ABO/RH(D): O POSITIVE ANTIBODY SCREEN: NEGATIVE Performed By: #### XM #### [facility] [address] [place] [address] *POC GLUCOSE BATTERY Collected: 08/14/2018 Status: F Source: [facility] 9:51 PM [facility] REPOSITORY TYPE CODE TESTS RESULT OUT OF REFERENCE UNITS RANGE LAB GLUP 70-99 mg/dL High Glucose (poc 155 device) Result Comment: Notified RNread back No BRAVE per RN: PATIENT TYPE LAB PCSTYP *POC Capillary SAMPLE TYPE Blood *POC GLUCOSE BATTERY Collected: 08/14/2018 Status: F Source: [facility] 6:36 PM [facility] REPOSITORY TYPE CODE TESTS RESULT OUT OF REFERENCE UNITS RANGE LAB GLUP 70-99 mg/dL High Glucose (poc 131 device) Result Comment: No BRAVE per RN: PATIENT TYPE LAB PCSTYP *POC Capillary SAMPLE TYPE Blood *POC GLUCOSE BATTERY Collected: 08/14/2018 Status: F Source: [facility] 11:44 AM [facility] REPOSITORY TYPE CODE TESTS RESULT OUT OF REFERENCE UNITS RANGE LAB GLUP 70-99 mg/dL High Glucose (poc 169 device) Result Comment: No BRAVE per RN: PATIENT TYPE LAB PCSTYP *POC Capillary SAMPLE TYPE Blood *POC GLUCOSE BATTERY Collected: 08/14/2018 Status: F Source: [facility] 7:23 AM [facility] REPOSITORY TYPE CODE TESTS RESULT OUT OF REFERENCE UNITS RANGE LAB GLUP 70-99 mg/dL High Glucose (poc 148 device) Result Comment: No BRAVE per RN: PATIENT TYPE LAB PCSTYP *POC Capillary SAMPLE TYPE Blood CBC,PLATELET,DIFFERENTIAL - CCL Collected: Status: F Source: [facility] 08/14/2018 2:40 AM [facility] REPOSITORY TYPE CODE TESTS RESULT [...] 0.57 Low LAB AMONO 0.22-0.87 K/uL Abs [place] 0.75 LAB AEOS 0.00-0.42 K/uL Abs Eos 0.35 LAB ABASO 0.00-0.15 K/uL Abs Baso 0.11 Performed By: #### CBCDFC, CA, CHM7, HFP, IPB, MGO, PTPTT, HEP3B #### [facility] [address] [place] [id number] [place] [address] [address] [place] [address] CALCIUM Collected: 08/14/2018 Status: F Source: [facility] 2:40 AM [facility] REPOSITORY TYPE CODE TESTS RESULT OUT OF REFERENCE UNITS RANGE LAB CA 8.6-10.5 mg/dL Low Calcium 7.6 Performed By: #### CBCDFC, CA, CHM7, HFP, IPB, MGO, PTPTT, HEP3B #### [facility] [address] [place] [id number] [place] [address] [place] [address] CHEM 7 Collected: 08/14/2018 Status: F Source: [facility] 2:40 AM [facility] REPOSITORY TYPE CODE TESTS RESULT [...] >60 mL/min/1.73 Low sqM Est GFR,non 12 Dutch LAB GFRA >60 mL/min/1.73 Low sqM Est GFR, 14 Performed By: #### CBCDFC, CA, CHM7, HFP, IPB, MGO, PTPTT, HEP3B #### [facility] [address] [id number] [facility] [address] [place] [address] HEPATIC FUNCTION Collected: 08/14/2018 Status: F Source: [facility] PANEL 2:40 AM [facility] REPOSITORY TYPE CODE TESTS RESULT [...] CHM7, HFP, IPB, MGO, PTPTT, HEP3B #### [facility] [address] [address] [facility] [address] [place] [address] INORGANIC PHOSPHATE Collected: 08/14/2018 Status: F Source: [facility] 2:40 AM [facility] REPOSITORY TYPE CODE TESTS RESULT OUT OF REFERENCE UNITS RANGE LAB IP 2.2-4.6 mg/dL Inorg Phosphate 4.6 Performed By: #### CBCDFC, CA, CHM7, HFP, IPB, MGO, PTPTT, HEP3B #### [facility] [address] [place] [address] [place] [address] MAGNESIUM Collected: 08/14/2018 Status: F Source: [facility] 2:40 AM [facility] REPOSITORY TYPE CODE TESTS RESULT OUT OF REFERENCE UNITS RANGE LAB MG 1.6-2.6 mg/dL Magnesium 2.0 Performed By: #### CBCDFC, CA, CHM7, HFP, IPB, MGO, PTPTT, HEP3B #### [facility] [address] [place] [address] [place] [address] PT*PTT Collected: 08/14/2018 Status: F Source: [facility] 2:40 AM [facility] REPOSITORY TYPE CODE TESTS RESULT OUT OF RANGE REFERENCE UNITS LAB PT 11.9-14.2 sec High PT 17.0 LAB INR 0.9-1.1 High INR 1.4 LAB PTT 24.0-34.3 sec High PTT 37.8 Performed By: #### CBCDFC, CA, CHM7, HFP, IPB, MGO, PTPTT, HEP3B #### [facility] [address] [place] [address] [place] [address] CHRONIC HEPATITIS B Collected: 08/14/2018 Status: F Source: [facility] PACKAGE 2:40 AM [facility] REPOSITORY TYPE CODE TESTS RESULT OUT OF REFERENCE UNITS RANGE LAB HBSAG Negative Hep B Surface Ag Negative LAB HBSAB Negative Hep B Surface Ab Negative LAB HBCBG Negative Hep B Core Ab,Total Negative (IgG+IgM) LAB HCAB Negative Hepatitis C Negative Antibody Performed By: #### CBCDFC, CA, CHM7, HFP, IPB, MGO, PTPTT, HEP3B #### [facility] [address] [place] [address] [facility] [address] [place], [place] [address] *POC GLUCOSE BATTERY Collected: 08/13/2018 Status: F Source: [facility] 9:48 PM [facility] REPOSITORY TYPE CODE TESTS RESULT OUT OF REFERENCE UNITS RANGE LAB GLUP 70-99 mg/dL High Glucose (poc 136 device) Result Comment: No BRAVE per RN: PATIENT TYPE LAB PCSTYP *POC Capillary SAMPLE TYPE Blood XR CHEST PORTABLE Observed: 08/13/2018 Status: F Source: [facility] 6:59 PM [facility] REPOSITORY EXAM: XR CHEST PORTABLE, 08/13/2018 17:45 [...] GLUCOSE BATTERY Collected: 08/13/2018 Status: F Source: [facility] 12:32 PM [facility] REPOSITORY TYPE CODE TESTS RESULT OUT OF REFERENCE UNITS RANGE LAB GLUP 70-99 mg/dL High Glucose (poc 212 device) Result Comment: No BRAVE per RN: PATIENT TYPE LAB PCSTYP *POC Capillary SAMPLE TYPE Blood XR ABDOMEN 1 VIEW Observed: 08/13/2018 Status: F Source: [facility] PORTABLE 11:07 AM [facility] REPOSITORY EXAM: XR ABDOMEN 1 VIEW PORTABLE, [...] OVIRUS DNA, Collected: 08/13/2018 Status: F Source: [facility] QUANTITATIVE, PCR 9:38 AM [facility] REPOSITORY TYPE CODE TESTS RESULT OUT OF REFERENCE UNITS RANGE LAB SOUR24 ADV source Urine LAB ADTC <500 copies/mL ADENOVIRUS BY <500 PCR Result Comment: (NOTE) This test was developed and its analytical performance characteristics have been determined by [employer], [place], [place]. It has not been cleared or approved by the U.S. Food and Drug Administration. This assay has been validated pursuant to the CLIA regulations and is used for clinical purposes. This test is performed pursuant to a license agreement with [employer] Test Performed by [facility], [facility], [address] [place] [address] Colin Fleming M.D., Ph.D., Director of Laboratories , CLIA [id number] Reported by [employer] [facility] Lab Performed By: #### XADVPC #### Reference lab information reported with result *POC GLUCOSE BATTERY Collected: 08/13/2018 Status: F Source: [facility] 7:27 AM [facility] REPOSITORY TYPE CODE TESTS RESULT OUT OF REFERENCE UNITS RANGE LAB GLUP 70-99 mg/dL High Glucose (poc 130 device) Result Comment: No BRAVE per RN: PATIENT TYPE LAB PCSTYP *POC Capillary SAMPLE TYPE Blood CBC,PLATELET,DIFFERENTIAL - CCL Collected: Status: F Source: [facility] 08/13/2018 4:10 AM [facility] REPOSITORY TYPE CODE TESTS RESULT [...] 0.44 Low LAB AMONO 0.22-0.87 K/uL Abs Sutter 0.89 High LAB AEOS 0.00-0.42 K/uL Abs Eos 0.24 LAB ABASO 0.00-0.15 K/uL Abs Baso 0.10 Performed By: #### CBCDFC, CA, CHM7, HFP, IPB, MGO, PTPTT #### [place] [address] [place] [address] CALCIUM Collected: 08/13/2018 Status: F Source: [facility] 4:10 AM [facility] REPOSITORY TYPE CODE TESTS RESULT OUT OF REFERENCE UNITS RANGE LAB CA 8.6-10.5 mg/dL Low Calcium 7.8 Performed By: #### CBCDFC, CA, CHM7, HFP, IPB, MGO, PTPTT #### [facility] [address] [address] CHEM 7 Collected: 08/13/2018 Status: F Source: [facility] 4:10 AM [facility] REPOSITORY TYPE CODE TESTS RESULT [...] >60 mL/min/1.73 Low sqM Est GFR,non 10 Dutch LAB GFRA >60 mL/min/1.73 Low sqM Est GFR, 12 Performed By: #### CBCDFC, CA, CHM7, HFP, IPB, MGO, PTPTT #### [facility] [address] [address] HEPATIC FUNCTION Collected: 08/13/2018 Status: F Source: [facility] 4:10 AM [facility] REPOSITORY TYPE CODE TESTS RESULT [...] CA, CHM7, HFP, IPB, MGO, PTPTT #### [facility] [address] [address] INORGANIC PHOSPHATE Collected: 08/13/2018 Status: F Source: [facility] 4:10 AM [facility] REPOSITORY TYPE CODE TESTS RESULT OUT OF REFERENCE UNITS RANGE LAB IP 2.2-4.6 mg/dL Inorg High Phosphate 5.2 Performed By: #### CBCDFC, CA, CHM7, HFP, IPB, MGO, PTPTT #### [facility] [address] [place] [address] [facility] [address] [place] [address] MAGNESIUM Collected: 08/13/2018 Status: F Source: [facility] 4:10 AM [facility] REPOSITORY TYPE CODE TESTS RESULT OUT OF REFERENCE UNITS RANGE LAB MG 1.6-2.6 mg/dL Magnesium 2.2 Performed By: #### CBCDFC, CA, CHM7, HFP, IPB, MGO, PTPTT #### [facility] [address] [place] [address] [facility] [address] [place] [address] PT*PTT Collected: 08/13/2018 Status: F Source: [facility] 4:10 AM [facility] REPOSITORY TYPE CODE TESTS RESULT OUT OF RANGE REFERENCE UNITS LAB PT 11.9-14.2 sec High PT 17.6 LAB INR 0.9-1.1 High INR 1.4 LAB PTT 24.0-34.3 sec High PTT 39.2 Performed By: #### CBCDFC, CA, CHM7, HFP, IPB, MGO, PTPTT #### [facility] [address] [place] [phone] [place] [address] ADENOVIRUS DNA, Collected: 08/13/2018 Status: C Source: [facility] QUANTITATIVE, PCR 4:10 AM [facility] REPOSITORY TYPE CODE TESTS RESULT OUT OF REFERENCE UNITS RANGE LAB SOUR24 ADV source Whole Blood Result Comment: CORRECTED ON 08/14 AT 2047: PREVIOUSLY REPORTED EDTA WHOLE BLOOD LAB ADTC <500 copies/mL ADENOVIRUS BY PCR <500 Result Comment: (NOTE) This test was developed and its analytical performance characteristics have been determined by [employer], [place], [place]. It has not been cleared or approved by the U.S. Food and Drug Administration. This assay has been validated pursuant to the CLIA regulations and is used for clinical purposes. This test is performed pursuant to a license agreement with [employer] Test Performed by [facility], [employer] [place], [address] [place], [place] Colin Fleming M.D., Ph.D., Director of Laboratories , [place] [id number] Reported by [facility] Performed By: #### XADVPC #### Reference lab information reported with result *POC GLUCOSE BATTERY Collected: 08/12/2018 Status: F Source: [facility] 8:07 PM [facility] REPOSITORY TYPE CODE TESTS RESULT OUT OF REFERENCE UNITS RANGE LAB GLUP 70-99 mg/dL High Glucose (poc 186 device) Result Comment: No BRAVE per RN: PATIENT TYPE LAB PCSTYP *POC Capillary SAMPLE TYPE Blood *POC GLUCOSE BATTERY Collected: 08/12/2018 Status: F Source: [facility] 5:13 PM [facility] REPOSITORY TYPE CODE TESTS RESULT OUT OF REFERENCE UNITS RANGE LAB GLUP 70-99 mg/dL High Glucose (poc 177 device) Result Comment: Notified RNread back No BRAVE per RN: PATIENT TYPE LAB PCSTYP *POC Capillary SAMPLE TYPE Blood *POC GLUCOSE BATTERY Collected: 08/12/2018 Status: F Source: [facility] 12:16 PM [facility] REPOSITORY TYPE CODE TESTS RESULT OUT OF REFERENCE UNITS RANGE LAB GLUP 70-99 mg/dL High Glucose (poc 161 device) Result Comment: No BRAVE per RN: PATIENT TYPE LAB PCSTYP *POC Capillary SAMPLE TYPE Blood *POC GLUCOSE BATTERY Collected: 08/12/2018 Status: F Source: [facility] 8:01 AM [facility] REPOSITORY TYPE CODE TESTS RESULT OUT OF REFERENCE UNITS RANGE LAB GLUP 70-99 mg/dL High Glucose (poc 107 device) Result Comment: No BRAVE per RN: PATIENT TYPE LAB PCSTYP *POC Capillary SAMPLE TYPE Blood LACTATE, BLOOD Collected: 08/12/2018 Status: F Source: [facility] 4:44 AM [facility] REPOSITORY TYPE CODE TESTS RESULT OUT OF RANGE REFERENCE UNITS LAB LACT 0.5-1.6 mmol/L Lactate, 1.0 Blood Performed By: #### LACT #### [facility] [place] [address] [address] [place] [address] AMMONIA Collected: 08/12/2018 Status: F Source: [facility] 4:44 AM [facility] REPOSITORY TYPE CODE TESTS RESULT OUT OF REFERENCE UNITS RANGE LAB NH3 6-47 umol/L High Ammonia 49 Performed By: #### NH3B #### [facility] [address] [place] [phone] [place] [address] [place] [address] HEPATIC FUNCTION Collected: 08/12/2018 Status: F Source: [facility] PANEL 4:44 AM [facility] REPOSITORY TYPE CODE TESTS RESULT [...] Protein 5.1 Performed By: #### HFP #### [facility] [address] [address] Observed: 08/12/2018 Status: F Source: [facility] TYPE AND CROSS 3:57 AM [facility] REPOSITORY ABO/RH(D): O POSITIVE ANTIBODY SCREEN: NEGATIVE Performed By: #### XM #### [facility] [address] [address] CBC,PLATELET,DIFFERENTIAL - CCL Collected: Status: F Source: [facility] 08/12/2018 3:47 AM [facility] REPOSITORY TYPE CODE TESTS RESULT [...] 0.44 Low LAB AMONO 0.22-0.87 K/uL Abs Sutter 0.90 High LAB AEOS 0.00-0.42 K/uL Abs Eos 0.22 LAB ABASO 0.00-0.15 K/uL Abs Baso 0.13 Performed By: #### CBCDFC, CA, CHM7, HFP, IPB, MGO, PTPTT #### [facility] [address] [place] [address] [place] [address] CALCIUM Collected: 08/12/2018 Status: F Source: [facility] 3:47 [facility] REPOSITORY TYPE CODE TESTS RESULT OUT OF REFERENCE UNITS RANGE LAB CA 8.6-10.5 mg/dL Low Calcium 7.6 Performed By: #### CBCDFC, CA, CHM7, HFP, IPB, MGO, PTPTT #### [facility] [address] [place] [address] [place] [address] CHEM 7 Collected: 08/12/2018 Status: F Source: [facility] 3:47 [facility] REPOSITORY TYPE CODE TESTS RESULT [...] >60 mL/min/1.73 Low sqM Est GFR,non 12 Dutch LAB GFRA >60 mL/min/1.73 Low sqM Est GFR, 14 Performed By: #### CBCDFC, CA, CHM7, HFP, IPB, MGO, PTPTT #### [facility] [address] [place] [phone] [place] [address] [place] [address] HEPATIC FUNCTION Collected: 08/12/2018 Status: F Source: [facility] 3:47 AM [facility] REPOSITORY TYPE CODE TESTS RESULT [...] CA, CHM7, HFP, IPB, MGO, PTPTT #### [facility] [address] [place] [address] [facility] [address] [place] [address] INORGANIC PHOSPHATE Collected: 08/12/2018 Status: F Source: [facility] 3:47 AM [facility] REPOSITORY TYPE CODE TESTS RESULT OUT OF REFERENCE UNITS RANGE LAB IP 2.2-4.6 mg/dL Inorg Phosphate 4.3 Performed By: #### CBCDFC, CA, CHM7, HFP, IPB, MGO, PTPTT #### [facility] [address] [place] [address] [facility] [address] [place] [address] MAGNESIUM Collected: 08/12/2018 Status: F Source: [facility] 3:47 AM [facility] REPOSITORY TYPE CODE TESTS RESULT OUT OF REFERENCE UNITS RANGE LAB MG 1.6-2.6 mg/dL Magnesium 2.2 Performed By: #### CBCDFC, CA, CHM7, HFP, IPB, MGO, PTPTT #### [facility] [address] [place] [address] [place] [address] PT*PTT Collected: 08/12/2018 Status: F Source: [facility] 3:47 AM [facility] REPOSITORY TYPE CODE TESTS RESULT OUT OF RANGE REFERENCE UNITS LAB PT 11.9-14.2 sec High PT 18.0 LAB INR 0.9-1.1 High INR 1.5 LAB PTT 24.0-34.3 sec High PTT 41.5 Performed By: #### CBCDFC, CA, CHM7, HFP, IPB, MGO, PTPTT #### [facility] [address] [place] [address] [place] [address] *POC GLUCOSE BATTERY Collected: 08/11/2018 Status: F Source: [facility] 9:59 PM [facility] REPOSITORY TYPE CODE TESTS RESULT OUT OF REFERENCE UNITS RANGE LAB GLUP 70-99 mg/dL High Glucose (poc 169 device) Result Comment: Notified RNread back No BRAVE per RN: PATIENT TYPE LAB PCSTYP *POC Capillary SAMPLE TYPE Blood *POC GLUCOSE BATTERY Collected: 08/11/2018 Status: F Source: [facility] 4:58 PM [facility] REPOSITORY TYPE CODE TESTS RESULT OUT OF REFERENCE UNITS RANGE LAB GLUP 70-99 mg/dL High Glucose (poc 192 device) Result Comment: No BRAVE per RN: PATIENT TYPE LAB PCSTYP *POC Capillary SAMPLE TYPE Blood HGB & HCT Collected: 08/11/2018 Status: F Source: [facility] 3:23 PM [facility] REPOSITORY TYPE CODE TESTS RESULT OUT OF REFERENCE UNITS RANGE LAB HGB 11.4-15.2 g/dL Low Hemoglobin 7.9 LAB HCT 34.9-44.3 % Low Hematocrit 24.2 Performed By: #### HH #### [facility] [address] [place], [place] [address] *POC GLUCOSE BATTERY Collected: 08/11/2018 Status: F Source: [facility] 12:12 PM [facility] REPOSITORY TYPE CODE TESTS RESULT OUT OF REFERENCE UNITS RANGE LAB GLUP 70-99 mg/dL High Glucose (poc 187 device) Result Comment: No BRAVE per RN: PATIENT TYPE LAB PCSTYP *POC Capillary SAMPLE TYPE Blood *POC GLUCOSE BATTERY Collected: 08/11/2018 Status: F Source: [facility] 7:45 AM [facility] REPOSITORY TYPE CODE TESTS RESULT OUT OF REFERENCE UNITS RANGE LAB GLUP 70-99 mg/dL High Glucose (poc 140 device) Result Comment: No BRAVE per RN: PATIENT TYPE LAB PCSTYP *POC Capillary SAMPLE TYPE Blood CBC,PLATELET,DIFFERENTIAL - CCL Collected: Status: F Source: [facility] 08/11/2018 4:14 AM [facility] REPOSITORY TYPE CODE TESTS RESULT [...] 0.42 Low LAB AMONO 0.22-0.87 K/uL Abs Sutter 0.84 LAB AEOS 0.00-0.42 K/uL Abs Eos 0.09 LAB ABASO 0.00-0.15 K/uL Abs Baso 0.08 Performed By: #### CBCDFC, CA, CHM7, IPB, MGO #### [facility] [address] [place] [address] [address] [address] CALCIUM Collected: 08/11/2018 Status: F Source: [facility] 4:14 [facility] REPOSITORY TYPE CODE TESTS RESULT OUT OF REFERENCE UNITS RANGE LAB CA 8.6-10.5 mg/dL Low Calcium 7.6 Performed By: #### CBCDFC, CA, CHM7, IPB, MGO #### [facility] [address] [place] [address] CHEM 7 Collected: 08/11/2018 Status: F Source: [facility] 4:14 [facility] REPOSITORY TYPE CODE TESTS RESULT [...] >60 mL/min/1.73 Low sqM Est GFR,non 13 Dutch LAB GFRA >60 mL/min/1.73 Low sqM Est GFR, 15 Performed By: #### CBCDFC, CA, CHM7, IPB, MGO #### [facility] [address] [place] [phone] [facility] [address] [place] [address] INORGANIC PHOSPHATE Collected: 08/11/2018 Status: F Source: [facility] 4:14 AM [facility] REPOSITORY TYPE CODE TESTS RESULT OUT OF REFERENCE UNITS RANGE LAB IP 2.2-4.6 mg/dL Inorg Phosphate 4.3 Performed By: #### CBCDFC, CA, CHM7, IPB, MGO #### [facility] [address] [place], [place] [address] [place] [address] [address] [place] [address] MAGNESIUM Collected: 08/11/2018 Status: F Source: [facility] 4:14 AM [facility] REPOSITORY TYPE CODE TESTS RESULT OUT OF REFERENCE UNITS RANGE LAB MG 1.6-2.6 mg/dL Magnesium 2.1 Performed By: #### CBCDFC, CA, CHM7, IPB, MGO #### [facility] [address] [place] [id number] [place] [address] [place] [address] *POC GLUCOSE BATTERY Collected: 08/10/2018 Status: F Source: [facility] 9:10 PM [facility] REPOSITORY TYPE CODE TESTS RESULT OUT OF REFERENCE UNITS RANGE LAB GLUP 70-99 mg/dL High Glucose (poc 208 device) Result Comment: Notified RNread back No BRAVE per RN: PATIENT TYPE LAB PCSTYP *POC Capillary SAMPLE TYPE Blood *POC GLUCOSE BATTERY Collected: 08/10/2018 Status: F Source: [facility] 5:20 PM [facility] REPOSITORY TYPE CODE TESTS RESULT OUT OF REFERENCE UNITS RANGE LAB GLUP 70-99 mg/dL High Glucose (poc 203 device) Result Comment: No BRAVE per RN: PATIENT TYPE LAB PCSTYP *POC Capillary SAMPLE TYPE Blood QUANT MONOCLONAL PROTEIN Collected: Status: F Source: [facility] IMMUNOFIXATION,SERUM 08/10/2018 11:47 AM [facility] REPOSITORY TYPE CODE TESTS RESULT [...] M.D. Performed By: #### QMPROP #### [facility] [place] [address] *POC GLUCOSE BATTERY Collected: 08/10/2018 Status: F Source: [facility] 11:46 AM [facility] REPOSITORY TYPE CODE TESTS RESULT OUT OF REFERENCE UNITS RANGE LAB GLUP 70-99 mg/dL High Glucose (poc 164 device) Result Comment: No BRAVE per RN: PATIENT TYPE LAB PCSTYP *POC Capillary SAMPLE TYPE Blood CK Collected: 08/10/2018 Status: F Source: [facility] 8:07 AM [facility] REPOSITORY TYPE CODE TESTS RESULT OUT OF REFERENCE UNITS RANGE LAB CK 30-184 U/L Creatine 88 Kinase Performed By: #### CKB #### [facility] [place] [address] *POC GLUCOSE BATTERY Collected: 08/10/2018 Status: F Source: [facility] 7:43 AM [facility] REPOSITORY TYPE CODE TESTS RESULT OUT OF REFERENCE UNITS RANGE LAB GLUP 70-99 mg/dL High Glucose (poc 162 device) Result Comment: No BRAVE per RN: PATIENT TYPE LAB PCSTYP *POC Capillary SAMPLE TYPE Blood CBC,PLATELET,DIFFERENTIAL - CCL Collected: Status: F Source: [facility] 08/10/2018 4:14 AM [facility] REPOSITORY TYPE CODE TESTS RESULT [...] 0.55 Low LAB AMONO 0.22-0.87 K/uL Abs Sutter 1.08 High LAB AEOS 0.00-0.42 K/uL Abs Eos 0.04 LAB ABASO 0.00-0.15 K/uL Abs Baso 0.16 High Performed By: #### CBCDFC, CA, CHM7, HFP, IPB, MGO #### [facility] [address] [place] [address] [address] [place] [address] CALCIUM Collected: 08/10/2018 Status: F Source: [facility] 4:14 [facility] REPOSITORY TYPE CODE TESTS RESULT OUT OF REFERENCE UNITS RANGE LAB CA 8.6-10.5 mg/dL Low Calcium 7.7 Performed By: #### ISSACC, CA, CHM7, HFP, IPB, MGO #### [facility] [address] [place] [address] [facility] [address] [place] [address] CHEM 7 Collected: 08/10/2018 Status: F Source: [facility] 4:14 [facility] REPOSITORY TYPE CODE TESTS RESULT [...] >60 mL/min/1.73 Low sqM Est GFR,non 13 Dutch LAB GFRA >60 mL/min/1.73 Low sqM Est GFR, 16 Performed By: #### ELIJAH, CA, CHM7, HFP, IPB, MGO #### [facility] [address] [place] [address] [place] [id number] HEPATIC FUNCTION Collected: 08/10/2018 Status: F Source: [facility] PANEL 4:14 [facility] REPOSITORY TYPE CODE TESTS RESULT [...] CA, CHM7, HFP, IPB, MGO #### [facility] [address] [place] [address] [facility] [address] [place] [address] INORGANIC PHOSPHATE Collected: 08/10/2018 Status: F Source: [facility] 4:14 AM [facility] REPOSITORY TYPE CODE TESTS RESULT OUT OF REFERENCE UNITS RANGE LAB IP 2.2-4.6 mg/dL Inorg Phosphate 3.9 Performed By: #### CBCDFC, CA, CHM7, HFP, IPB, MGO #### [facility] [address] [place] [id number] [place] [address] [place] [address] MAGNESIUM Collected: 08/10/2018 Status: F Source: [facility] 4:14 [facility] REPOSITORY TYPE CODE TESTS RESULT OUT OF REFERENCE UNITS RANGE LAB MG 1.6-2.6 mg/dL Magnesium 2.1 Performed By: #### CBCDFC, CA, CHM7, HFP, IPB, MGO #### [facility] [address] [place] [phone] [place] [address] [place] [address] Observed: 08/10/2018 Status: F Source: [facility] BLOOD:ROUTINE I 12:14 AM [facility] REPOSITORY SOURCE: BLOOD, PERIPHERAL: Right Arm RESULT: NO GROWTH DAY 5 OF 5 REPORT STATUS: 08/15/2018 FINAL Performed By: Frida Brunner##Kannan [address] [address] Blood Cultures processed at: [facility] Observed: 08/10/2018 Status: F [facility] [place] BLOOD: LINE ASSESSMENT 12:14 AM [facility] REPOSITORY SOURCE: LINE, PORT: Right Medial COMMENT: Results may be compromised due to inappropriate blood volume. The optimal blood volume is 8-10 mls per aerobic/anaerobic blood culture bottle. RESULT: NO GROWTH DAY 5 OF 5 REPORT STATUS: 08/15/2018 FINAL Performed By: #### LINE #### [address] [address] Blood Cultures processed at: [facility] *POC GLUCOSE BATTERY Collected: 08/09/2018 Status: F Source: [facility] 9:31 PM [facility] REPOSITORY TYPE CODE TESTS RESULT OUT OF REFERENCE UNITS RANGE LAB GLUP 70-99 mg/dL High Glucose (poc 186 device) Result Comment: Notified RNread back No BRAVE per RN: PATIENT TYPE LAB PCSTYP *POC Capillary SAMPLE TYPE Blood *POC GLUCOSE BATTERY Collected: 08/09/2018 Status: F Source: [facility] 4:59 PM [facility] REPOSITORY TYPE CODE TESTS RESULT OUT OF REFERENCE UNITS RANGE LAB GLUP 70-99 mg/dL High Glucose (poc 199 device) Result Comment: Notified RNread back No BRAVE per RN: PATIENT TYPE LAB PCSTYP *POC Capillary SAMPLE TYPE Blood *POC GLUCOSE BATTERY Collected: 08/09/2018 Status: F Source: [facility] 12:02 PM [facility] REPOSITORY TYPE CODE TESTS RESULT OUT OF REFERENCE UNITS RANGE LAB GLUP 70-99 mg/dL High Glucose (poc 190 device) Result Comment: Notified RNread back No BRAVE per RN: PATIENT TYPE LAB PCSTYP *POC Capillary SAMPLE TYPE Blood XR CHEST PORTABLE Observed: 08/09/2018 Status: F Source: [facility] 11:08 AM [facility] REPOSITORY EXAM: XR CHEST PORTABLE, 08/09/2018 11:00 [...] HEAD WITHOUT Observed: 08/09/2018 Status: F Source: [facility] CONTRAST 8:14 AM [facility] REPOSITORY EXAM: CT HEAD WITHOUT CONTRAST, 08/08/2018 [...] GLUCOSE BATTERY Collected: 08/09/2018 Status: F Source: [facility] 7:40 AM [facility] REPOSITORY TYPE CODE TESTS RESULT OUT OF REFERENCE UNITS RANGE LAB GLUP 70-99 mg/dL High Glucose (poc 154 device) Result Comment: No BRAVE per RN: PATIENT TYPE LAB PCSTYP *POC Capillary SAMPLE TYPE Blood CBC,PLATELET,DIFFERENTIAL - CCL Collected: Status: F Source: [facility] 08/09/2018 4:13 AM [facility] REPOSITORY TYPE CODE TESTS RESULT [...] 0.52 Low LAB AMONO 0.22-0.87 K/uL Abs Sutter 0.95 High LAB AEOS 0.00-0.42 K/uL Abs Eos <0.04 LAB ABASO 0.00-0.15 K/uL Abs Baso 0.10 Performed By: #### CBCDFC, CA, CHM7, IPB, IRBC, MGO #### [facility] [address] [place] [address] [address] CALCIUM Collected: 08/09/2018 Status: F Source: [facility] 4:13 [facility] REPOSITORY TYPE CODE TESTS RESULT OUT OF REFERENCE UNITS RANGE LAB CA 8.6-10.5 mg/dL Low Calcium 7.8 Performed By: #### CBCDFC, CA, CHM7, IPB, IRBC, MGO #### [facility] [address] [place] [address] CHEM 7 Collected: 08/09/2018 Status: F Source: [facility] 4:13 [facility] REPOSITORY TYPE CODE TESTS RESULT [...] >60 mL/min/1.73 Low sqM Est GFR,non 13 Dutch LAB GFRA >60 mL/min/1.73 Low sqM Est GFR, 16 Performed By: #### CBCDFC, CA, CHM7, IPB, IRBC, MGO #### [facility] [address] [place] [address] [facility] [address] [place] [address] INORGANIC PHOSPHATE Collected: 08/09/2018 Status: F Source: [facility] 4:13 AM [facility] REPOSITORY TYPE CODE TESTS RESULT OUT OF REFERENCE UNITS RANGE LAB IP 2.2-4.6 mg/dL Inorg Phosphate 4.1 Performed By: #### CBCDFC, CA, CHM7, IPB, IRBC, MGO #### [facility] [address] [place] [address] [place] [address] IRON*TIBC (TRANSFERRIN) Collected: 08/09/2018 Status: F Source: [facility] 4:13 AM [facility] REPOSITORY TYPE CODE TESTS RESULT OUT OF REFERENCE UNITS RANGE LAB IRON 40-174 mcg/dL Low Iron 21 LAB TIBC 298-596 mcg/dL Low Total Iron Binding Capacity 271 LAB IRONS 20-55 % Low *Iron*Saturation 8 LAB MORALES 200-400 mg/dL Low Transferrin 182 Performed By: #### CBCDFC, CA, CHM7, IPB, IRBC, MGO #### [facility] [address] [place] [address] [address] MAGNESIUM Collected: 08/09/2018 Status: F Source: [facility] 4:13 AM [facility] REPOSITORY TYPE CODE TESTS RESULT OUT OF REFERENCE UNITS RANGE LAB MG 1.6-2.6 mg/dL Magnesium 2.1 Performed By: #### CBCDFC, CA, CHM7, IPB, IRBC, MGO #### [facility] [address] [place] [address] [address] Observed: 08/09/2018 Status: F Source: [facility] TYPE AND CROSS 4:13 AM [facility] REPOSITORY ABO/RH(D): O POSITIVE ANTIBODY SCREEN: NEGATIVE UNIT NUMBER: [id number] BLOOD COMPONENT TYPE: Red Cell,Leukoreduced,[id number] STATUS OF UNIT: Issued, Final TRANSFUSION STATUS: OK TO TRANSFUSE CROSSMATCH RESULT: Electronically Compatible Performed By: #### XM #### [facility] [address] [place], [place] [id number] [facility] [address] [place], [place] [address] Observed: 08/09/2018 Status: F Source: [facility] BLOOD: [place] ASSESSMENT 4:13 AM [facility] REPOSITORY SOURCE: LINE, PORT: Medial MICROSCOPIC: GRAM [...] please contact the Blood culture area at [phone] REPORT STATUS: 08/14/2018 FINAL Performed By: #### LINE #### [facility] [address] [place] [address] Blood Cultures processed at: [facility] FERRITIN Collected: 08/09/2018 Status: F Source: [facility] 3:45 AM [facility] REPOSITORY TYPE CODE TESTS RESULT OUT OF RANGE REFERENCE UNITS LAB FERI 10-291 ng/mL *Ferritin 222 Performed By: #### FERIB #### [facility] [address] [place] [address] Observed: 08/09/2018 Status: F Source: [facility] BLOOD:ROUTINE I 3:42 AM [facility] REPOSITORY SOURCE: BLOOD, PERIPHERAL: Site not specified RESULT: NO GROWTH DAY 5 OF 5 REPORT STATUS: 08/14/2018 FINAL Performed By: #### FAST #### [address] [address] Blood Cultures processed at: [facility] (NA,K,CL), URINE Collected: 08/08/2018 Status: F Source: [facility] 11:35 PM [facility] REPOSITORY TYPE CODE TESTS RESULT [...] Performed By: #### ULYTR, UPCR #### [facility] [address] [address] URINE PROTEIN/CREAT Collected: 08/08/2018 Status: F Source: [facility] RANDOM 11:35 PM [facility] REPOSITORY TYPE CODE TESTS RESULT OUT OF RANGE REFERENCE UNITS LAB CREU1 mg/dL 55.00 Creatinine, urine mg/dL LAB PROT3 mg/dL PROTEIN, 91 urine mg/dL LAB PRCR2 mg prot/mg crea 1.655 PROT/CREAT RATIO Performed By: #### ULYTR, UPCR #### [facility] [address] [place] [address] [facility] [address] [place] [address] URINE SCREEN WITH Collected: 08/08/2018 Status: F Source: [facility] REFLEX TO MICROSCOPIC 11:35 PM [facility] REPOSITORY TYPE CODE TESTS RESULT OUT OF RANGE REFERENCE UNITS LAB PROCESS CHECKER Clear Appearance Urine Clear LAB SPGR 1.001-1.035 Specific [place] urine 1.012 LAB UGL Negative mg/dL Glucose [...] Performed By: #### UASR, UMICR #### [facility] [address] [place] [phone] [place] [address] [place] [address] URINE MICROSCOPIC Collected: 08/08/2018 Status: F Source: [facility] 11:35 PM [facility] REPOSITORY TYPE CODE TESTS RESULT OUT OF RANGE REFERENCE UNITS LAB UWBC 0-5 /HPF WBC Abnormal Urine >20 LAB URBC 0-2 /HPF RBC Abnormal Urine >20 LAB BACT Absent Bacteria Absent LAB UCOM COMMENT URINE None LAB EPIS /HPF Squamous Epithelial 2+ Performed By: #### UASR, UMICR #### [facility] [address] [place] [phone] [place] [address] [place] [address] *POC GLUCOSE BATTERY Collected: 08/08/2018 Status: F Source: [facility] 9:52 PM [facility] REPOSITORY TYPE CODE TESTS RESULT OUT OF REFERENCE UNITS RANGE LAB GLUP 70-99 mg/dL High Glucose (poc 181 device) Result Comment: Notified RNread back No BRAVE per RN: PATIENT TYPE LAB PCSTYP *POC Capillary SAMPLE TYPE Blood *POC GLUCOSE BATTERY Collected: 08/08/2018 Status: F Source: [facility] 5:41 PM [facility] REPOSITORY TYPE CODE TESTS RESULT OUT OF REFERENCE UNITS RANGE LAB GLUP 70-99 mg/dL High Glucose (poc 228 device) Result Comment: No BRAVE per RN: PATIENT TYPE LAB PCSTYP *POC Capillary SAMPLE TYPE Blood *POC GLUCOSE BATTERY Collected: 08/08/2018 Status: F Source: [facility] 11:46 AM [facility] REPOSITORY TYPE CODE TESTS RESULT OUT OF REFERENCE UNITS RANGE LAB GLUP 70-99 mg/dL High Glucose (poc 179 device) Result Comment: No BRAVE per RN: PATIENT TYPE LAB PCSTYP *POC Capillary SAMPLE TYPE Blood *POC GLUCOSE BATTERY Collected: 08/08/2018 Status: F Source: [facility] 7:41 AM [facility] REPOSITORY TYPE CODE TESTS RESULT OUT OF REFERENCE UNITS RANGE LAB GLUP 70-99 mg/dL High Glucose (poc 131 device) Result Comment: No BRAVE per RN: PATIENT TYPE LAB PCSTYP *POC Capillary SAMPLE TYPE Blood CBC,PLATELET,DIFFERENTIAL - CCL Collected: Status: F Source: [facility] 08/08/2018 3:28 AM [facility] REPOSITORY TYPE CODE TESTS RESULT [...] 0.66 Low LAB AMONO 0.22-0.87 K/uL Abs Sutter 0.83 LAB AEOS 0.00-0.42 K/uL Abs Eos 0.04 LAB ABASO 0.00-0.15 K/uL Abs Baso 0.09 Performed By: #### CBCDFC, PTPTT, ALB, CHM7, CA, CKB, IPB, MGO #### [facility] [address] [place] [address] [place] [address] PT*PTT Collected: 08/08/2018 Status: F Source: [facility] [address] [place] [address] REPOSITORY TYPE CODE TESTS RESULT OUT OF RANGE REFERENCE UNITS LAB PT 11.9-14.2 sec High PT 18.5 LAB INR 0.9-1.1 High INR 1.5 LAB PTT 24.0-34.3 sec High PTT 35.7 Performed By: #### CBCDFC, PTPTT, ALB, CHM7, CA, CKB, IPB, MGO #### [facility] [address] [place] [address] [place] [address] ALBUMIN Collected: 08/08/2018 Status: F Source: [facility] [address] [place] [address] REPOSITORY TYPE CODE TESTS RESULT OUT OF REFERENCE UNITS RANGE LAB ALB 3.5-5.0 g/dL Low Albumin 2.5 Performed By: #### CBCDFC, PTPTT, ALB, CHM7, CA, CKB, IPB, MGO #### [facility] [address] [place] [phone] [place] [address] [place] [address] CHEM 7 Collected: 08/08/2018 Status: F Source: [facility] 3:[address] [place] [address] REPOSITORY TYPE CODE TESTS RESULT OUT OF [...] >60 mL/min/1.73 Low sqM Est GFR,non 16 Dutch LAB GFRA >60 mL/min/1.73 Low sqM Est GFR, 19 Performed By: #### CBCDFC, PTPTT, ALB, CHM7, CA, CKB, IPB, MGO #### [facility] [address] [place] [address] [place] [address] CALCIUM Collected: 08/08/2018 Status: F Source: [facility] 3:28 [facility] REPOSITORY TYPE CODE TESTS RESULT OUT OF REFERENCE UNITS RANGE LAB CA 8.6-10.5 mg/dL Low Calcium 8.0 Performed By: #### CBCDFC, PTPTT, ALB, CHM7, CA, CKB, IPB, MGO #### [facility] [address] [place] [address] [place] [address] CK Collected: 08/08/2018 Status: F Source: [facility] 3:28 [facility] REPOSITORY TYPE CODE TESTS RESULT OUT OF REFERENCE UNITS RANGE LAB CK 30-184 U/L High alert Creatine 890 Kinase Performed By: #### CBCDFC, PTPTT, ALB, CHM7, CA, CKB, IPB, MGO #### [facility] [address] [place] [phone] [place] [address] [address] INORGANIC PHOSPHATE Collected: 08/08/2018 Status: F Source: [facility] 3:28 [facility] REPOSITORY TYPE CODE TESTS RESULT OUT OF REFERENCE UNITS RANGE LAB IP 2.2-4.6 mg/dL Inorg Phosphate 4.5 Performed By: #### CBCDFC, PTPTT, ALB, CHM7, CA, CKB, IPB, MGO #### [facility] [address] [place] [address] [facility] [address] [place] [address] MAGNESIUM Collected: 08/08/2018 Status: F Source: [facility] 3:28 AM [facility] REPOSITORY TYPE CODE TESTS RESULT OUT OF REFERENCE UNITS RANGE LAB MG 1.6-2.6 mg/dL Magnesium 2.2 Performed By: #### CBCDFC, PTPTT, ALB, CHM7, CA, CKB, IPB, MGO #### [facility] [address] [place] [phone] [place] [address] [place] [address] LACTATE, BLOOD Collected: 08/08/2018 Status: F Source: [facility] 12:13 AM [facility] REPOSITORY TYPE CODE TESTS RESULT OUT OF RANGE REFERENCE UNITS LAB LACT 0.5-1.6 mmol/L Lactate, 1.0 Blood Performed By: #### LACT #### [facility] [address] [place] [phone] [place] [address] [place] [address] CHEM 6 Collected: 08/08/2018 Status: F Source: [facility] 12:02 AM [facility] REPOSITORY TYPE CODE TESTS RESULT [...] >60 mL/min/1.73 Low sqM Est GFR,non 16 Dutch LAB GFRA >60 mL/min/1.73 Low sqM Est GFR, 19 Performed By: #### CHM6 #### [facility] [address] [place] [phone] [place] [address] [place] [address] *POC GLUCOSE BATTERY Collected: 08/07/2018 Status: F Source: [facility] 9:20 PM [facility] REPOSITORY TYPE CODE TESTS RESULT OUT OF REFERENCE UNITS RANGE LAB GLUP 70-99 mg/dL High Glucose (poc 189 device) Result Comment: Notified RNread back No BRAVE per RN: PATIENT TYPE LAB PCSTYP *POC Capillary SAMPLE TYPE Blood OSMOLALITY, URINE - Collected: 08/07/2018 Status: F Source: [facility] RANDOM 8:20 PM [facility] REPOSITORY TYPE CODE TESTS RESULT OUT OF RANGE REFERENCE UNITS LAB UOSM 300-900 mOsm/kg Low Urine 282 Osmolality, 24 hr Performed By: #### UOSMR, UCLR, UCRER, UKR, UNAR #### [facility] [phone] [place] [address] [address] CHLORIDE, URINE - Collected: 08/07/2018 Status: F Source: [facility] RANDOM 8:20 PM [facility] REPOSITORY TYPE CODE TESTS RESULT OUT OF REFERENCE UNITS RANGE LAB CLU1 mmol/L URINE CHLORIDE 48 Result Comment: The reference range has not been established for random urine specimens. The test result should be integrated into the clinical context for interpretation. Performed By: #### UOSMR, UCLR, UCRER, UKR, UNAR #### [place] [address] [address] CREATININE, URINE - Collected: 08/07/2018 Status: F Source: [facility] RANDOM 8:20 PM [facility] REPOSITORY TYPE CODE TESTS RESULT OUT OF RANGE REFERENCE UNITS LAB CREU1 mg/dL 67.00 Creatinine, urine mg/dL Result Comment: The reference range has not been established for random urine specimens. The test result should be integrated into the clinical context for interpretation. Performed By: #### UOSMR, UCLR, UCRER, UKR, UNAR #### [facility] [phone] [place] [address] [address] POTASSIUM, URINE - Collected: 08/07/2018 Status: F Source: [facility] RANDOM 8:20 PM [facility] REPOSITORY TYPE CODE TESTS RESULT OUT OF REFERENCE UNITS RANGE LAB KU1 mmol/L URINE POTASSIUM 28.6 Result Comment: The reference range has not been established for random urine specimens. The test result should be integrated into the clinical context for interpretation. Performed By: #### UOSMR, UCLR, UCRER, UKR, UNAR #### [facility] [address] [place] [address] SODIUM, URINE - Collected: 08/07/2018 Status: F Source: [facility] RANDOM 8:20 PM [facility] REPOSITORY TYPE CODE TESTS RESULT OUT OF REFERENCE UNITS RANGE LAB NAU1 mmol/L URINE SODIUM 59 Result Comment: The reference range has not been established for random urine specimens. The test result should be integrated into the clinical context for interpretation. Performed By: #### UOSMR, MALAR, UCRER, UKR, UNAR #### [facility] [place] [address] URINALYSIS Collected: 08/07/2018 Status: F Source: [facility] 8:20 PM [facility] REPOSITORY TYPE CODE TESTS RESULT OUT OF RANGE REFERENCE UNITS LAB PROCESS CHECKER Clear Appearance Abnormal Urine Cloudy LAB SPGR 1.001-1.035 Specific [place] urine 1.012 LAB UGL Negative mg/dL Glucose [...] 1+ Performed By: #### URIN #### [facility] [place] [address] Observed: 08/07/2018 Status: F Source: [facility] URINE CULTURE -UHE 7:52 PM [facility] REPOSITORY SOURCE: URINE-CLEAN CATCH: RESULT: NO GROWTH REPORT STATUS: 08/09/2018 FINAL Performed By: #### UR #### [place] [address] Blood Cultures processed at: [facility] RENAL Observed: 08/07/2018 Status: F Source: [facility] 6:29 PM [facility] REPOSITORY EXAM: RENAL, 08/07/2018 14:17 PM CLINICAL [...] GLUCOSE BATTERY Collected: 08/07/2018 Status: F Source: [facility] 5:56 PM [facility] REPOSITORY TYPE CODE TESTS RESULT OUT OF REFERENCE UNITS RANGE LAB GLUP 70-99 mg/dL High Glucose (poc 202 device) Result Comment: No BRAVE per RN: PATIENT TYPE LAB PCSTYP *POC Capillary SAMPLE TYPE Blood LACTATE, BLOOD Collected: 08/07/2018 Status: F Source: [facility] 5:37 PM [facility] REPOSITORY TYPE CODE TESTS RESULT OUT OF RANGE REFERENCE UNITS LAB LACT 0.5-1.6 mmol/L Lactate, 1.3 Blood Performed By: #### LACT #### [facility] [address] [place] [address] CHEM 7 Collected: 08/07/2018 Status: F Source: [facility] 5:37 PM [facility] REPOSITORY TYPE CODE TESTS RESULT [...] >60 mL/min/1.73 Low sqM Est GFR,non 15 Dutch LAB GFRA >60 mL/min/1.73 Low sqM Est GFR, 19 Performed By: #### CHM7 #### [facility] [address] [place] [address] AMMONIA Collected: 08/07/2018 Status: F Source: [facility] 5:37 PM [facility] REPOSITORY TYPE CODE TESTS RESULT OUT OF REFERENCE UNITS RANGE LAB NH3 6-47 umol/L Ammonia 37 Performed By: #### NH3B #### [facility] [address] [place] [address] [place] [address] *POC GLUCOSE BATTERY Collected: 08/07/2018 Status: F Source: [facility] 5:23 PM [facility] REPOSITORY TYPE CODE TESTS RESULT OUT OF REFERENCE UNITS RANGE LAB GLUP 70-99 mg/dL High Glucose (poc 190 device) Result Comment: No BRAVE per RN: PATIENT TYPE LAB PCSTYP *POC Capillary SAMPLE TYPE Blood LYTES (NA,K,CL,CREA),URINE,RANDOM Collected: Status: F Source: [place] 08/07/2018 3:13 PM [facility] REPOSITORY TYPE CODE TESTS RESULT OUT OF REFERENCE UNITS RANGE LAB NAU1 mmol/L URINE SODIUM 58 LAB KU1 mmol/L URINE POTASSIUM 32.9 LAB CLU1 mmol/L URINE CHLORIDE 44 LAB CREU1 mg/dL Creatinine, 95.00 urine mg/dL Performed By: #### ULYCR #### [facility] [address] [place] [address] [place] [address] *POC GLUCOSE BATTERY Collected: 08/07/2018 Status: F Source: [facility] 9:58 AM [facility] REPOSITORY TYPE CODE TESTS RESULT OUT OF REFERENCE UNITS RANGE LAB GLUP 70-99 mg/dL High Glucose (poc 158 device) Result Comment: No BRAVE per RN: PATIENT TYPE LAB PCSTYP *POC Capillary SAMPLE TYPE Blood *POC GLUCOSE BATTERY Collected: 08/07/2018 Status: F Source: [facility] 7:29 AM [facility] REPOSITORY TYPE CODE TESTS RESULT OUT OF REFERENCE UNITS RANGE LAB GLUP 70-99 mg/dL High Glucose (poc 149 device) Result Comment: No BRAVE per RN: PATIENT TYPE LAB PCSTYP *POC Capillary SAMPLE TYPE Blood *POC GLUCOSE BATTERY Collected: 08/07/2018 Status: F Source: [facility] 7:15 AM [facility] REPOSITORY TYPE CODE TESTS RESULT OUT OF REFERENCE UNITS RANGE LAB GLUP 70-99 mg/dL High Glucose (poc 142 device) Result Comment: No BRAVE per RN: PATIENT TYPE LAB PCSTYP *POC Capillary SAMPLE TYPE Blood CBC,PLATELET,DIFFERENTIAL - CCL Collected: Status: F Source: [facility] 08/07/2018 4:46 AM [facility] REPOSITORY TYPE CODE TESTS RESULT [...] 0.59 Low LAB AMONO 0.22-0.87 K/uL Abs Sutter 0.87 LAB AEOS 0.00-0.42 K/uL Abs Eos 0.04 LAB ABASO 0.00-0.15 K/uL Abs Baso 0.10 Performed By: #### CBCDFC, CA, CHM7, HFP, IPB, MGO #### [place] [address] [facility] [address] [place] [address] CALCIUM Collected: 08/07/2018 Status: F Source: [facility] 4:46 AM [facility] REPOSITORY TYPE CODE TESTS RESULT OUT OF REFERENCE UNITS RANGE LAB CA 8.6-10.5 mg/dL Low Calcium 8.0 Performed By: #### CBCDFC, CA, CHM7, HFP, IPB, MGO #### [facility] [address] [place] [address] [facility] [address] [place] [address] CHEM 7 Collected: 08/07/2018 Status: F Source: [facility] 4:46 AM [facility] REPOSITORY TYPE CODE TESTS RESULT [...] >60 mL/min/1.73 Low sqM Est GFR,non 18 Dutch LAB GFRA >60 mL/min/1.73 Low sqM Est GFR, 22 Performed By: #### CBCDFC, CA, CHM7, HFP, IPB, MGO #### [facility] [address] [place] [address] [facility] [address] [place] [address] HEPATIC FUNCTION Collected: 08/07/2018 Status: F Source: [facility] 4:46 AM [facility] REPOSITORY TYPE CODE TESTS RESULT [...] CA, CHM7, HFP, IPB, MGO #### [facility] [address] [place] [phone] [place] [address] [place] [address] INORGANIC PHOSPHATE Collected: 08/07/2018 Status: F Source: [facility] 4:46 AM [facility] REPOSITORY TYPE CODE TESTS RESULT OUT OF REFERENCE UNITS RANGE LAB IP 2.2-4.6 mg/dL Inorg Phosphate 4.3 Performed By: #### BOOMDFC, CA, CHM7, HFP, IPB, MGO #### [facility] [address] [place] [address] [place] [address] MAGNESIUM Collected: 08/07/2018 Status: F Source: [facility] 4:46 AM [facility] REPOSITORY TYPE CODE TESTS RESULT OUT OF REFERENCE UNITS RANGE LAB MG 1.6-2.6 mg/dL Magnesium 2.1 Performed By: #### CBCDFC, CA, CHM7, HFP, IPB, MGO #### [facility] [address] [place] [address] [place] [address] Observed: 08/07/2018 Status: F Source: [facility] URINE CULTURE -UHE 2:51 AM [facility] REPOSITORY SOURCE: URINE-CLEAN CATCH: RESULT: NO GROWTH REPORT STATUS: 08/08/2018 FINAL Performed By: #### UR #### [address] [address] Blood Cultures processed at: [facility] *POC GLUCOSE BATTERY Collected: 08/06/2018 Status: F Source: [facility] 9:12 PM [facility] REPOSITORY TYPE CODE TESTS RESULT OUT OF REFERENCE UNITS RANGE LAB GLUP 70-99 mg/dL High Glucose (poc 157 device) Result Comment: Notified RNread back No BRAVE per RN: PATIENT TYPE LAB PCSTYP *POC Capillary SAMPLE TYPE Blood *POC GLUCOSE BATTERY Collected: 08/06/2018 Status: F Source: [facility] 5:48 PM [facility] REPOSITORY TYPE CODE TESTS RESULT OUT OF REFERENCE UNITS RANGE LAB GLUP 70-99 mg/dL High Glucose (poc 172 device) Result Comment: No BRAVE per RN: PATIENT TYPE LAB PCSTYP *POC Capillary SAMPLE TYPE Blood Observed: 08/06/2018 Status: F Source: [facility] BLOOD:ROUTINE I 3:35 PM [facility] REPOSITORY SOURCE: BLOOD, PERIPHERAL: Site not specified RESULT: NO GROWTH DAY OF 5 REPORT STATUS: 08/11/2018 FINAL Performed By: #### JARAD #### [address] [address] Blood Cultures processed at: [facility] Observed: 08/06/2018 Status: F Source: [facility] BLOOD: LINE ASSESSMENT 3:25 PM [facility] REPOSITORY SOURCE: MICHAEL GARNETT: RESULT: NO GROWTH DAY 5 OF 5 REPORT STATUS: 08/11/2018 FINAL Performed By: #### TAMIR #### [address] [address] Blood Cultures processed at: [facility] AMMONIA Collected: 08/06/2018 Status: F Source: [facility] 1:55 PM [facility] REPOSITORY TYPE CODE TESTS RESULT OUT OF REFERENCE UNITS RANGE LAB NH3 6-47 umol/L High Ammonia 51 Performed By: #### NH3B #### [facility] [address] [place] [address] [place] [address] URINALYSIS Collected: 08/06/2018 Status: F Source: [facility] 1:55 PM [facility] REPOSITORY TYPE CODE TESTS RESULT OUT OF RANGE REFERENCE UNITS LAB PROCESS CHECKER Clear Appearance Abnormal Urine Turbid LAB SPGR 1.001-1.035 Specific [place] urine 1.016 LAB UGL Negative mg/dL Glucose [...] 2+ Performed By: #### URIN #### [facility] [address] [place] [address] [place] [address] *POC GLUCOSE BATTERY Collected: 08/06/2018 Status: F Source: [facility] 12:07 PM [facility] REPOSITORY TYPE CODE TESTS RESULT OUT OF REFERENCE UNITS RANGE LAB GLUP 70-99 mg/dL High Glucose (poc 175 device) Result Comment: No BRAVE per RN: PATIENT TYPE LAB PCSTYP *POC Capillary SAMPLE TYPE Blood *POC GLUCOSE BATTERY Collected: 08/06/2018 Status: F Source: [facility] 11:28 AM [facility] REPOSITORY TYPE CODE TESTS RESULT OUT OF REFERENCE UNITS RANGE LAB GLUP 70-99 mg/dL High Glucose (poc 194 device) Result Comment: No BRAVE per RN: PATIENT TYPE LAB PCSTYP *POC Capillary SAMPLE TYPE Blood *POC GLUCOSE BATTERY Collected: 08/06/2018 Status: F Source: [facility] 8:45 AM [facility] REPOSITORY TYPE CODE TESTS RESULT OUT OF REFERENCE UNITS RANGE LAB GLUP 70-99 mg/dL High Glucose (poc 186 device) Result Comment: No BRAVE per RN: PATIENT TYPE LAB PCSTYP *POC Capillary SAMPLE TYPE Blood *POC GLUCOSE BATTERY Collected: 08/06/2018 Status: F Source: [facility] 7:48 AM [facility] REPOSITORY TYPE CODE TESTS RESULT OUT OF REFERENCE UNITS RANGE LAB GLUP 70-99 mg/dL High Glucose (poc 157 device) Result Comment: No BRAVE per RN: PATIENT TYPE LAB PCSTYP *POC Capillary SAMPLE TYPE Blood Observed: 08/06/2018 Status: F Source: [facility] TYPE AND CROSS 5:15 AM [facility] REPOSITORY ABO/RH(D): O POSITIVE ANTIBODY SCREEN: NEGATIVE Performed By: #### XM #### [facility] [address] [place], [place] [address] [place] [address] [address] [place], [place] [address] CBC,PLATELET,DIFFERENTIAL - CCL Collected: Status: F Source: [facility] 08/06/2018 4:39 AM [facility] REPOSITORY TYPE CODE TESTS RESULT [...] 0.87 Low LAB AMONO 0.22-0.87 K/uL Abs [place] 0.95 High LAB AEOS 0.00-0.42 K/uL Abs Eos 0.04 LAB ABASO 0.00-0.15 K/uL Abs Baso 0.10 Performed By: #### CBCDFC, CA, CHM7, IPB, MGO #### [facility] [address] [place] [address] [address] [place] [address] [address] CALCIUM Collected: 08/06/2018 Status: F Source: [facility] 4:39 [facility] REPOSITORY TYPE CODE TESTS RESULT OUT OF REFERENCE UNITS RANGE LAB CA 8.6-10.5 mg/dL Low Calcium 8.3 Performed By: #### ELIJAH, CA, CHM7, IPB, MGO #### [facility] [address] [address] CHEM 7 Collected: 08/06/2018 Status: F Source: [facility] 4:39 [facility] REPOSITORY TYPE CODE TESTS RESULT [...] >60 mL/min/1.73 Low sqM Est GFR,non 21 Dutch LAB GFRA >60 mL/min/1.73 Low sqM Est GFR, 25 Performed By: #### CBCDFC, CA, CHM7, IPB, MGO #### [facility] [address] [place] [address] INORGANIC PHOSPHATE Collected: 08/06/2018 Status: F Source: [facility] 4:39 AM [facility] REPOSITORY TYPE CODE TESTS RESULT OUT OF REFERENCE UNITS RANGE LAB IP 2.2-4.6 mg/dL Inorg Phosphate 3.8 Performed By: #### CBCDFC, CA, CHM7, IPB, MGO #### [facility] [address] [place] [id number] [place] [address] [place] [address] MAGNESIUM Collected: 08/06/2018 Status: F Source: [facility] 4:39 AM [facility] REPOSITORY TYPE CODE TESTS RESULT OUT OF REFERENCE UNITS RANGE LAB MG 1.6-2.6 mg/dL Magnesium 2.0 Performed By: #### CBCDFC, CA, CHM7, IPB, MGO #### [facility] [address] [place] [address] [place] [address] *POC GLUCOSE BATTERY Collected: 08/05/2018 Status: F Source: [facility] 9:14 PM [facility] REPOSITORY TYPE CODE TESTS RESULT OUT OF REFERENCE UNITS RANGE LAB GLUP 70-99 mg/dL High Glucose (poc 125 device) Result Comment: Notified RNread back No BRAVE per RN: PATIENT TYPE LAB PCSTYP *POC Capillary SAMPLE TYPE Blood *POC GLUCOSE BATTERY Collected: 08/05/2018 Status: F Source: [facility] 5:00 PM [facility] REPOSITORY TYPE CODE TESTS RESULT OUT OF REFERENCE UNITS RANGE LAB GLUP 70-99 mg/dL High Glucose (poc 201 device) Result Comment: Notified RNread back No BRAVE per RN: PATIENT TYPE LAB PCSTYP *POC Capillary SAMPLE TYPE Blood AMMONIA Collected: 08/05/2018 Status: F Source: [facility] 1:07 PM [facility] REPOSITORY TYPE CODE TESTS RESULT OUT OF REFERENCE UNITS RANGE LAB NH3 6-47 umol/L High Ammonia 53 Performed By: #### NH3B #### [facility] [address] [place] [address] [place] [address] *POC GLUCOSE BATTERY Collected: 08/05/2018 Status: F Source: [facility] 11:05 AM [facility] REPOSITORY TYPE CODE TESTS RESULT OUT OF REFERENCE UNITS RANGE LAB GLUP 70-99 mg/dL High Glucose (poc 191 device) Result Comment: Notified RNread back No BRAVE per RN: PATIENT TYPE LAB PCSTYP *POC Capillary SAMPLE TYPE Blood *POC GLUCOSE BATTERY Collected: 08/05/2018 Status: F Source: [facility] 8:18 AM [facility] REPOSITORY TYPE CODE TESTS RESULT OUT OF REFERENCE UNITS RANGE LAB GLUP 70-99 mg/dL High Glucose (poc 154 device) Result Comment: No BRAVE per RN: PATIENT TYPE LAB PCSTYP *POC Capillary SAMPLE TYPE Blood CBC,PLATELET,DIFFERENTIAL - CCL Collected: Status: F Source: [facility] 08/05/2018 3:56 AM [facility] REPOSITORY TYPE CODE TESTS RESULT [...] 0.70 Low LAB AMONO 0.22-0.87 K/uL Abs [place] 0.67 LAB AEOS 0.00-0.42 K/uL Abs Eos 0.09 LAB ABASO 0.00-0.15 K/uL Abs Baso 0.06 Performed By: #### CBCDFC, CA, CHM7, HFP, IPB, MGO #### [facility] [address] [place] [id number] [place] [address] [place] [address] CALCIUM Collected: 08/05/2018 Status: F Source: [facility] 3:56 AM [facility] REPOSITORY TYPE CODE TESTS RESULT OUT OF REFERENCE UNITS RANGE LAB CA 8.6-10.5 mg/dL Low Calcium 8.1 Performed By: #### CBCDFC, CA, CHM7, HFP, IPB, MGO #### [facility] [address] [place] [address] [address] CHEM 7 Collected: 08/05/2018 Status: F Source: [facility] 3:56 [facility] REPOSITORY TYPE CODE TESTS RESULT [...] >60 mL/min/1.73 Low sqM Est GFR,non 27 Dutch LAB GFRA >60 mL/min/1.73 Low sqM Est GFR, 33 Performed By: #### CBCDFC, CA, CHM7, HFP, IPB, MGO #### [facility] [address] [place] [id number] [place] [address] [place] [address] HEPATIC FUNCTION Collected: 08/05/2018 Status: F Source: [facility] 3:56 AM [facility] REPOSITORY TYPE CODE TESTS RESULT [...] CA, CHM7, HFP, IPB, MGO #### [facility] [address] [place] [phone] [place] [address] [place] [address] INORGANIC PHOSPHATE Collected: 08/05/2018 Status: F Source: [facility] 3:56 AM [facility] REPOSITORY TYPE CODE TESTS RESULT OUT OF REFERENCE UNITS RANGE LAB IP 2.2-4.6 mg/dL Inorg Phosphate 3.4 Performed By: #### CBCDFC, CA, CHM7, HFP, IPB, MGO #### [facility] [address] [place] [address] [place] [address] MAGNESIUM Collected: 08/05/2018 Status: F Source: [facility] 3:56 AM [facility] REPOSITORY TYPE CODE TESTS RESULT OUT OF REFERENCE UNITS RANGE LAB MG 1.6-2.6 mg/dL Magnesium 2.0 Performed By: #### CBCDFC, CA, CHM7, HFP, IPB, MGO #### [facility] [address] [place] [address] [place] [address] *POC GLUCOSE BATTERY Collected: 08/04/2018 Status: F Source: [facility] 9:00 PM [facility] REPOSITORY TYPE CODE TESTS RESULT OUT OF REFERENCE UNITS RANGE LAB GLUP 70-99 mg/dL High Glucose (poc 154 device) Result Comment: Notified RNread back No BRAVE per RN: PATIENT TYPE LAB PCSTYP *POC Capillary SAMPLE TYPE Blood *POC GLUCOSE BATTERY Collected: 08/04/2018 Status: F Source: [facility] 5:04 PM [facility] REPOSITORY TYPE CODE TESTS RESULT OUT OF REFERENCE UNITS RANGE LAB GLUP 70-99 mg/dL High Glucose (poc 147 device) Result Comment: Notified RNread back No BRAVE per RN: PATIENT TYPE LAB PCSTYP *POC Capillary SAMPLE TYPE Blood *POC GLUCOSE BATTERY Collected: 08/04/2018 Status: F Source: [facility] 11:25 AM [facility] REPOSITORY TYPE CODE TESTS RESULT OUT OF REFERENCE UNITS RANGE LAB GLUP 70-99 mg/dL High Glucose (poc 200 device) Result Comment: Notified RNread back No BRAVE per RN: PATIENT TYPE LAB PCSTYP *POC Capillary SAMPLE TYPE Blood *POC GLUCOSE BATTERY Collected: 08/04/2018 Status: F Source: [facility] 7:28 AM [facility] REPOSITORY TYPE CODE TESTS RESULT OUT OF REFERENCE UNITS RANGE LAB GLUP 70-99 mg/dL High Glucose (poc 166 device) Result Comment: Notified RNread back No BRAVE per RN: PATIENT TYPE LAB PCSTYP *POC Capillary SAMPLE TYPE Blood CBC,PLATELET,DIFFERENTIAL - CCL Collected: Status: F Source: [facility] 08/04/2018 5:24 AM [facility] REPOSITORY TYPE CODE TESTS RESULT [...] 0.70 Low LAB AMONO 0.22-0.87 K/uL Abs [place] 0.72 LAB AEOS 0.00-0.42 K/uL Abs Eos 0.04 LAB ABASO 0.00-0.15 K/uL Abs Baso 0.05 Performed By: #### CBCDFC, CA, CHM7, IPB, MGO #### [facility] [address] [place] [address] CALCIUM Collected: 08/04/2018 Status: F Source: [facility] 5:24 AM [facility] REPOSITORY TYPE CODE TESTS RESULT OUT OF REFERENCE UNITS RANGE LAB CA 8.6-10.5 mg/dL Low Calcium 8.0 Performed By: #### CBCDFC, CA, CHM7, IPB, MGO #### [facility] [address] [place] [address] CHEM 7 Collected: 08/04/2018 Status: F Source: [facility] 5:24 AM [facility] REPOSITORY TYPE CODE TESTS RESULT [...] >60 mL/min/1.73 Low sqM Est GFR,non 28 Dutch LAB GFRA >60 mL/min/1.73 Low sqM Est GFR, 34 Performed By: #### CBCDFC, CA, CHM7, IPB, MGO #### [facility] [address] [place] [address] [facility] [address] [place] [address] INORGANIC PHOSPHATE Collected: 08/04/2018 Status: F Source: [facility] 5:24 AM [facility] REPOSITORY TYPE CODE TESTS RESULT OUT OF REFERENCE UNITS RANGE LAB IP 2.2-4.6 mg/dL Inorg Phosphate 2.6 Performed By: #### CBCDFC, CA, CHM7, IPB, MGO #### [facility] [address] [place], [place] [phone] [place] [address] [place] [address] MAGNESIUM Collected: 08/04/2018 Status: F Source: [facility] 5:24 AM [facility] REPOSITORY TYPE CODE TESTS RESULT OUT OF REFERENCE UNITS RANGE LAB MG 1.6-2.6 mg/dL Magnesium 1.8 Performed By: #### CBCDFC, CA, CHM7, IPB, MGO #### [facility] [address] [place] [id number] [place] [address] [address] [place] [address] *POC GLUCOSE BATTERY Collected: 08/03/2018 Status: F Source: [facility] 9:46 PM [facility] REPOSITORY TYPE CODE TESTS RESULT OUT OF REFERENCE UNITS RANGE LAB GLUP 70-99 mg/dL High Glucose (poc 194 device) Result Comment: No BRAVE per RN: PATIENT TYPE LAB PCSTYP *POC Capillary SAMPLE TYPE Blood *POC GLUCOSE BATTERY Collected: 08/03/2018 Status: F Source: [facility] 4:59 PM [facility] REPOSITORY TYPE CODE TESTS RESULT OUT OF REFERENCE UNITS RANGE LAB GLUP 70-99 mg/dL High Glucose (poc 221 device) Result Comment: No BRAVE per RN: PATIENT TYPE LAB PCSTYP *POC Capillary SAMPLE TYPE Blood *POC GLUCOSE BATTERY Collected: 08/03/2018 Status: F Source: [facility] 4:06 PM [facility] REPOSITORY TYPE CODE TESTS RESULT OUT OF REFERENCE UNITS RANGE LAB GLUP 70-99 mg/dL High Glucose (poc 191 device) Result Comment: No BRAVE per RN: PATIENT TYPE LAB PCSTYP *POC Capillary SAMPLE TYPE Blood *POC GLUCOSE BATTERY Collected: 08/03/2018 Status: F Source: [facility] 2:01 PM [facility] REPOSITORY TYPE CODE TESTS RESULT OUT OF REFERENCE UNITS RANGE LAB GLUP 70-99 mg/dL High Glucose (poc 211 device) Result Comment: No BRAVE per RN: PATIENT TYPE LAB PCSTYP *POC Capillary SAMPLE TYPE Blood *POC GLUCOSE BATTERY Collected: 08/03/2018 Status: F Source: [facility] 11:29 AM [facility] REPOSITORY TYPE CODE TESTS RESULT OUT OF REFERENCE UNITS RANGE LAB GLUP 70-99 mg/dL High Glucose (poc 122 device) Result Comment: No BRAVE per RN: PATIENT TYPE LAB PCSTYP *POC Capillary SAMPLE TYPE Blood Observed: 08/03/2018 Status: F Source: [facility] BAL CONSULT 9:42 AM [facility] REPOSITORY 90 7 3 rare Cellular specimen consisting predominantly of alveolar macrophages. Rare budding yeast is seen. Correlation with gram stain and culture results is recommended. Anita Ngo M.D. Performed By: #### BAL #### [place] [address] Observed: 08/03/2018 Status: F Source: [facility] RESPIRATORY CULTURE 9:42 AM [facility] REPOSITORY SOURCE: BRONCHIAL ALVEOLAR LAVAGE, QUANTITATIVE: Right [...] 08/05/2018 FINAL Performed By: #### RES #### [place] [address] Blood Cultures processed at: [facility] Observed: 08/03/2018 Status: I Source: [facility] FUNGUS [facility] -UHE 9:42 [facility] REPOSITORY SOURCE: BRONCHIAL ALVEOLAR LAVAGE: Right Upper Lobe COMMENT: Cultures held 28 days. Cloudy 20MLS RESULT: YEAST NOT CRYPTOCOCCUS : 3 COLONIES (NOTE) Growth of yeast (not Cryptococcus) from respiratory secretions rarely indicates invasive disease and should not be treated with antifungal therapy. (Mau BRUNSON et al (2009). Clin Infect Dis. 48:503-35). REPORT STATUS: PENDING Performed By: #### FUN #### [place] [address] Blood Cultures processed at: [facility] ASPERGILLUS ANTIGEN, Collected: 08/03/2018 Status: F Source: [facility] 9:42 AM [facility] REPOSITORY TYPE CODE TESTS RESULT [...] Penicillium marneffei and Cryptococcus. Test Performed by [facility], [facility], [address] [place] [id number] Colin Fleming M.D., Ph.D., Director of Laboratories , CLIA [id number] Reported by [facility] Performed By: #### XASGFL #### Reference lab information reported with result PNEUMOCYSTIS Collected: 08/03/2018 Status: C Source: [facility] JIROVECI,PCR 9:42 AM [facility] REPOSITORY TYPE CODE TESTS RESULT OUT OF REFERENCE UNITS RANGE LAB PNRP PN Specimen BRONCHIAL Source ALVEOLAR LAVAGE: Result Comment: CORRECTED ON 08/07 AT 0717: PREVIOUSLY REPORTED BRONCHIAL ALVEOLAR LAVAGE: LAB PNRPR Not Applicable Pneumocystis jiroveci,PCR resu Negative Result Comment: (NOTE) ADDITIONAL INFORMATION This test was developed and its performance characteristics determined by [facility] in a manner consistent with CLIA requirements. This test has not been cleared or approved by the [place]. Food and Drug Administration. LAB PNRPI Pneumocystis Not applicable jiroveci,PCR comm LAB PNRPRS PN RESULT STATUS Not applicable Result Comment: Test performed by [facility] Dpt of Lab Med & Pathology Performed By: #### YPNRP #### Reference lab information reported with result *POC GLUCOSE BATTERY Collected: 08/03/2018 Status: F Source: [facility] 7:16 AM [facility] REPOSITORY TYPE CODE TESTS RESULT OUT OF REFERENCE UNITS RANGE LAB GLUP 70-99 mg/dL High Glucose (poc 123 device) Result Comment: No BRAVE per RN: PATIENT TYPE LAB PCSTYP *POC Capillary SAMPLE TYPE Blood PT*PTT Collected: 08/03/2018 Status: F Source: [facility] 4:06 AM [facility] REPOSITORY TYPE CODE TESTS RESULT OUT OF RANGE REFERENCE UNITS LAB PT 11.9-14.2 sec High PT 18.0 LAB INR 0.9-1.1 High INR 1.5 LAB PTT 24.0-34.3 sec High PTT 38.0 Performed By: #### PTPTT, CA, CHM7, HFP, IPB, MGO, CBCDFC #### [facility] [address] [place] [address] [address] [place] [address] CALCIUM Collected: 08/03/2018 Status: F Source: [facility] 4:06 AM [facility] REPOSITORY TYPE CODE TESTS RESULT OUT OF REFERENCE UNITS RANGE LAB CA 8.6-10.5 mg/dL Low Calcium 8.0 Performed By: #### TALIA, CA, CHM7, HFP, IPB, MGO, CBCDFC #### [facility] [address] [place] [address] [facility] [address] [place] [address] CHEM 7 Collected: 08/03/2018 Status: F Source: [facility] 4:06 AM [facility] REPOSITORY TYPE CODE TESTS RESULT [...] >60 mL/min/1.73 Low sqM Est GFR,non 29 Dutch LAB GFRA >60 mL/min/1.73 Low sqM Est GFR, 35 Performed By: #### TALIA, CA, CHM7, HFP, IPB, MGO, CBCDFC #### [facility] [address] [place], [place] [id number] [facility] [address] [place] [address] HEPATIC FUNCTION Collected: 08/03/2018 Status: F Source: [facility] PANEL 4:06 AM [facility] REPOSITORY TYPE CODE TESTS RESULT [...] CHM7, HFP, IPB, MGO, CBCDFC #### [facility] [address] [place] [id number] [place] [address] [place] [address] INORGANIC PHOSPHATE Collected: 08/03/2018 Status: F Source: [facility] 4:06 AM [facility] REPOSITORY TYPE CODE TESTS RESULT OUT OF REFERENCE UNITS RANGE LAB IP 2.2-4.6 mg/dL Inorg Phosphate 3.2 Performed By: #### PTPTT, CA, CHM7, HFP, IPB, MGO, CBCDFC #### [facility] [address] [place] [id number] [place] [address] [place] [address] MAGNESIUM Collected: 08/03/2018 Status: F Source: [facility] 4:06 AM [facility] REPOSITORY TYPE CODE TESTS RESULT OUT OF REFERENCE UNITS RANGE LAB MG 1.6-2.6 mg/dL Magnesium 1.8 Performed By: #### PTPTT, CA, CHM7, HFP, IPB, MGO, CBCDFC #### [facility] [address] [place] [phone] [facility] [address] [place] [address] CBC,PLATELET,DIFFERENTIAL - CCL Collected: Status: F Source: [facility] 08/03/2018 4:06 AM [facility] REPOSITORY TYPE CODE TESTS RESULT [...] 0.67 Low LAB AMONO 0.22-0.87 K/uL Abs [place] 0.06 Low LAB AEOS 0.00-0.42 K/uL Abs Eos 0.06 LAB ABASO 0.00-0.15 K/uL Abs Baso 0.11 LAB AMETA 0.00 K/uL Abs [place] 0.06 High LAB OVALO OVALOCYTES Present LAB POLYCH POLYCHROMASIA 1+ LAB TEARDR TEARDROP CELLS Present LAB PLTEST PLATELET ESTIMATE Automated platelet count confirmed by manual slide review. Performed By: #### PTPTT, CA, CHM7, HFP, IPB, MGO, CBCDFC #### [facility] [place] [address] [place] [address] [address] [place] [address] *POC GLUCOSE BATTERY Collected: 08/02/2018 Status: F Source: [facility] 9:03 PM [facility] REPOSITORY TYPE CODE TESTS RESULT OUT OF REFERENCE UNITS RANGE LAB GLUP 70-99 mg/dL High Glucose (poc 166 device) Result Comment: No BRAVE per RN: PATIENT TYPE LAB PCSTYP *POC Capillary SAMPLE TYPE Blood *POC GLUCOSE BATTERY Collected: 08/02/2018 Status: F Source: [facility] 5:11 PM [facility] REPOSITORY TYPE CODE TESTS RESULT OUT OF REFERENCE UNITS RANGE LAB GLUP 70-99 mg/dL High Glucose (poc 173 device) Result Comment: No BRAVE per RN: PATIENT TYPE LAB PCSTYP *POC Capillary SAMPLE TYPE Blood *POC GLUCOSE BATTERY Collected: 08/02/2018 Status: F Source: [facility] 11:49 AM [facility] REPOSITORY TYPE CODE TESTS RESULT OUT OF REFERENCE UNITS RANGE LAB GLUP 70-99 mg/dL High Glucose (poc 178 device) Result Comment: No BRAVE per RN: PATIENT TYPE LAB PCSTYP *POC Capillary SAMPLE TYPE Blood Observed: 08/02/2018 Status: I Source: [facility] BLOOD: FUNGUS 9:06 AM [facility] REPOSITORY SOURCE: BLOOD, FUNGAL: RESULT: NO GROWTH TO DATE REPORT STATUS: PENDING Performed By: #### FBLD #### [place] [address] Blood Cultures processed at: [facility] CRYPTOCOCCUS Collected: 08/02/2018 Status: F Source: [facility] ANTIGEN,SERUM 9:06 AM [facility] REPOSITORY TYPE CODE TESTS RESULT OUT OF REFERENCE UNITS RANGE LAB CRAG Negative Cryptococcus Antigen,serum Negative Result Comment: This test should not be used to screen asymptomatic patients. Performed By: #### CRAG #### [facility] [place] [address] [place] [address] #### YASPR, YFFUNG, YFHIST, YHISID, YSCOC #### Reference lab information reported with result ASPERGILLUS ANTIGEN Collected: 08/02/2018 Status: F Source: [facility] 9:06 [facility] REPOSITORY TYPE CODE TESTS RESULT [...] Penicillium marneffei and Cryptococcus. Test Performed by [employer] [place], [facility], [address] [place] [address] Colin Fleming M.D., Ph.D., Director of Laboratories , [facility] [id number] LAB ASPERI <0.50 Aspergillus Index Value 0.12 Result Comment: Reported by [employer] Lab Performed By: #### CRAG #### [facility] [place] [address] [place] [address] #### YASPR, YFFUNG, YFHIST, YHISID, YSCOC #### Reference lab information reported with result FUNGITELL ASSAY Collected: 08/02/2018 Status: F Source: [facility] 9:06 [facility] REPOSITORY TYPE CODE TESTS RESULT OUT OF REFERENCE UNITS RANGE LAB FFUNG <60 pg/mL Fungitell Result <31 LAB FUNINT Fungitell Interpretation Negative Result Comment: (NOTE) This assay is for the presumptive diagnosis of fungal infections and should be used in conjunction with other diagnostic procedures. (1->3)-uzuv-U-lkkfgn values of <60 pg/mL are considered negative and indicate the presumptive absence of fungal infection. Glucan values of >=60 but <79 pg/mL are considered indeterminate, and glucan values of >=80 pg/mL are considered positive and indicate the presumptive presence of a fungal infection. This assay may not detect certain fungal species that do not produce or produce low levels of (1->3)-vcle-W-sxpquf including: Cryptococcus, Absidia, Mucor, Rhizopus, and the yeast phase of Blastomyces dermatitidis. Test Performed by [place], [employer] [facility], [address] [place] [address] Colin Fleming M.D., Ph.D., Director of Laboratories , [facility] [id number] Reported by [facility] Performed By: #### CRAG #### [facility] [place] [address] #### YASPR, YFFUNG, YFHIST, YHISID, YSCOC #### Reference lab information reported with result HISTOPLASMA ANTIGEN, Collected: 08/02/2018 Status: F Source: [facility] SERUM 9:06 AM [facility] REPOSITORY TYPE CODE TESTS RESULT [...] developed and its performance characteristics determined by [employer]. It has not been cleared or approved by the FDA; however, FDA clearance or approval is not currently required for clinical use. The results are not intended to be used as the sole means for clinical diagnosis or patient management decisions. Test Performed by: [employer] [address] [facility] [address] Performed By: #### CRAG #### [facility] [place] [address] #### YASPR, YFFUNG, YFHIST, YHISID, YSCOC #### Reference lab information reported with result HISTOPLASMA ANTIBODY, Collected: 08/02/2018 Status: F Source: [facility] IMMUNODIFFUSION 9:06 AM [facility] REPOSITORY TYPE CODE TESTS RESULT [...] 10% of proven cases). Test Performed by [facility], [facility], [address] [place] [address] Colin Fleming M.D., Ph.D., Director of Laboratories , [facility] [id number] Reported by [employer] Lab Performed By: #### CRAG #### [facility] [place] [address] [place] [address] [place] [address] #### YASPR, YFFUNG, YFHIST, YHISID, YSCOC #### Reference lab information reported with result COCCIDIOIDES AB, SERUM Collected: 08/02/2018 Status: F Source: [facility] 9:06 AM [facility] REPOSITORY TYPE CODE TESTS RESULT [...] weeks if clinically indicated. Test performed by [facility] Dpt of Lab & Pathology [employer] Performed By: #### CRAG #### [facility] [address] [place] [address] [facility] [address] [place], [place] [address] #### YASPR, YFFUNG, YFHIST, YHISID, YSCOC #### Reference lab information reported with result HISTOPLASMA AG, U Collected: 08/02/2018 Status: F Source: [facility] 9:06 [facility] REPOSITORY TYPE CODE TESTS RESULT [...] developed and its performance characteristics determined by [facility] in a manner consistent with CLIA requirements. This test has not been cleared or approved by the U.S. Food and Drug Administration. Test performed by [facility] Dpt of Lab & Pathology [employer] Performed By: #### YHISTG #### Reference lab information reported with result BLASTOMYCES ANTIGEN Collected: 08/02/2018 Status: C Source: [facility] 9:06 [facility] REPOSITORY TYPE CODE TESTS RESULT [...] developed and its performance characteristics determined by [employer]. It has not been cleared or approved by the FDA; however, FDA clearance or approval is not currently required for clinical use. The results are not intended to be used as the sole means for clinical diagnosis or patient management decisions. Test Performed by: [facility] [place] [address] LAB BLRES ng/mL Blastomyces NONE RESULT: DETECTED Performed By: #### YBLASG #### Reference lab information reported with result BLASTOMYCES ANTIGEN Collected: 08/02/2018 Status: C Source: [facility] 9:06 AM [facility] REPOSITORY TYPE CODE TESTS RESULT [...] developed and its performance characteristics determined by [employer]. It has not been cleared or approved by the FDA; however, FDA clearance or approval is not currently required for clinical use. The results are not intended to be used as the sole means for clinical diagnosis or patient management decisions. Test Performed by: [employer] [address] [employer] [place] [address] LAB BLRES ng/mL Blastomyces NONE RESULT: DETECTED Performed By: #### YBLASG #### Reference lab information reported with result *POC GLUCOSE BATTERY Collected: 08/02/2018 Status: F Source: [facility] 7:23 [facility] REPOSITORY TYPE CODE TESTS RESULT OUT OF REFERENCE UNITS RANGE LAB GLUP 70-99 mg/dL High Glucose (poc 103 device) Result Comment: No BRAVE per RN: PATIENT TYPE LAB PCSTYP *POC Capillary SAMPLE TYPE Blood CALCIUM Collected: 08/02/2018 Status: F Source: [facility] 4:21 AM [facility] REPOSITORY TYPE CODE TESTS RESULT OUT OF REFERENCE UNITS RANGE LAB CA 8.6-10.5 mg/dL Low Calcium 8.0 Performed By: #### CA, CHM7, IPB, MGO, CBCDFC #### [facility] [address] [place] [id number] [place] [address] [place] [address] CHEM 7 Collected: 08/02/2018 Status: F Source: [facility] 4:21 AM [facility] REPOSITORY TYPE CODE TESTS RESULT [...] >60 mL/min/1.73 Low sqM Est GFR,non 34 Dutch LAB GFRA >60 mL/min/1.73 Low sqM Est GFR, 41 Performed By: #### CA, CHM7, IPB, MGO, CBCDFC #### U [facility] [address] [place] [id number] [place] [address] [place] [address] INORGANIC PHOSPHATE Collected: 08/02/2018 Status: F Source: [facility] 4:21 AM [facility] REPOSITORY TYPE CODE TESTS RESULT OUT OF REFERENCE UNITS RANGE LAB IP 2.2-4.6 mg/dL Inorg Phosphate 3.0 Performed By: #### CA, CHM7, IPB, MGO, CBCDFC #### [facility] [address] [place] [address] [facility] [address] [place], [place] [address] MAGNESIUM Collected: 08/02/2018 Status: F Source: [facility] 4:21 AM [facility] REPOSITORY TYPE CODE TESTS RESULT OUT OF REFERENCE UNITS RANGE LAB MG 1.6-2.6 mg/dL Magnesium 1.8 Performed By: #### CA, CHM7, IPB, MGO, CBCDFC #### [facility] [address] [place] [address] [facility] [address] [place], [place] [address] CBC,PLATELET,DIFFERENTIAL - CCL Collected: Status: F Source: [facility] 08/02/2018 4:21 AM [facility] REPOSITORY TYPE CODE TESTS RESULT [...] 0.39 Low LAB AMONO 0.22-0.87 K/uL Abs Sutter 0.26 LAB AEOS 0.00-0.42 K/uL Abs Eos 0.00 LAB ABASO 0.00-0.15 K/uL Abs Baso 0.00 LAB AMYEL 0.00 K/uL Abs Myelo 0.13 High LAB OVALO OVALOCYTES Present LAB POLYCH POLYCHROMASIA 1+ LAB TEARDR TEARDROP CELLS Present LAB PLTEST PLATELET ESTIMATE Automated platelet count confirmed by manual slide review. Performed By: #### CA, CHM7, IPB, MGO, CBCDFC #### [facility] [address] [place] [address] [facility] [address] [place] [address] *POC GLUCOSE BATTERY Collected: 08/01/2018 Status: F Source: [facility] 8:15 PM [facility] REPOSITORY TYPE CODE TESTS RESULT OUT OF REFERENCE UNITS RANGE LAB GLUP 70-99 mg/dL High Glucose (poc 185 device) Result Comment: Notified RNread back No BRAVE per RN: PATIENT TYPE LAB PCSTYP *POC Capillary SAMPLE TYPE Blood CT CHEST WITHOUT Observed: 08/01/2018 Status: F Source: [facility] CONTRAST 5:47 PM [facility] REPOSITORY EXAM: CT CHEST WITHOUT CONTRAST, 08/01/2018 [...] GLUCOSE BATTERY Collected: 08/01/2018 Status: F Source: [facility] 5:12 PM [facility] REPOSITORY TYPE CODE TESTS RESULT OUT OF REFERENCE UNITS RANGE LAB GLUP 70-99 mg/dL High Glucose (poc 155 device) Result Comment: No BRAVE per RN: PATIENT TYPE LAB PCSTYP *POC Capillary SAMPLE TYPE Blood *POC GLUCOSE BATTERY Collected: 08/01/2018 Status: F Source: [facility] 11:48 AM [facility] REPOSITORY TYPE CODE TESTS RESULT OUT OF REFERENCE UNITS RANGE LAB GLUP 70-99 mg/dL High Glucose (poc 190 device) Result Comment: No BRAVE per RN: PATIENT TYPE LAB PCSTYP *POC Capillary SAMPLE TYPE Blood *POC GLUCOSE BATTERY Collected: 08/01/2018 Status: F Source: [facility] 7:26 AM [facility] REPOSITORY TYPE CODE TESTS RESULT OUT OF REFERENCE UNITS RANGE LAB GLUP 70-99 mg/dL High Glucose (poc 148 device) Result Comment: No BRAVE per RN: PATIENT TYPE LAB PCSTYP *POC Capillary SAMPLE TYPE Blood CALCIUM Collected: 08/01/2018 Status: F Source: [facility] 4:57 AM [facility] REPOSITORY TYPE CODE TESTS RESULT OUT OF REFERENCE UNITS RANGE LAB CA 8.6-10.5 mg/dL Low Calcium 8.1 Performed By: #### CA, CHM7, CKB, IPB, MGO, CBCDFC #### [facility] [address] [place] [address] [place] [address] CHEM 7 Collected: 08/01/2018 Status: F Source: [facility] 4:57 AM [facility] REPOSITORY TYPE CODE TESTS RESULT [...] >60 mL/min/1.73 Low sqM Est GFR,non 30 Dutch LAB GFRA >60 mL/min/1.73 Low sqM Est GFR, 36 Performed By: #### CA, CHM7, CKB, IPB, MGO, CBCDFC #### U [facility] [address] [place] [address] CK Collected: 08/01/2018 Status: F Source: [facility] 4:57 AM [facility] REPOSITORY TYPE CODE TESTS RESULT OUT OF REFERENCE UNITS RANGE LAB CK 30-184 U/L Creatine 49 Kinase Performed By: #### CA, CHM7, CKB, IPB, MGO, CBCDFC #### U [facility] [address] [place] [address] INORGANIC PHOSPHATE Collected: 08/01/2018 Status: F Source: [facility] 4:57 AM [facility] REPOSITORY TYPE CODE TESTS RESULT OUT OF REFERENCE UNITS RANGE LAB IP 2.2-4.6 mg/dL Inorg Phosphate 3.1 Performed By: #### CA, CHM7, CKB, IPB, MGO, CBCDFC #### [facility] [address] [place] [address] [address] [place] [address] MAGNESIUM Collected: 08/01/2018 Status: F Source: [facility] 4:57 AM [facility] REPOSITORY TYPE CODE TESTS RESULT OUT OF REFERENCE UNITS RANGE LAB MG 1.6-2.6 mg/dL Magnesium 1.9 Performed By: #### CA, CHM7, CKB, IPB, MGO, CBCDFC #### [facility] [address] [place] [address] [facility] [address] [place], [place] [address] CBC,PLATELET,DIFFERENTIAL - CCL Collected: Status: F Source: [facility] 08/01/2018 4:57 AM [facility] REPOSITORY TYPE CODE TESTS RESULT [...] 0.54 Low LAB AMONO 0.22-0.87 K/uL Abs [place] 0.28 LAB AEOS 0.00-0.42 K/uL Abs Eos 0.00 LAB ABASO 0.00-0.15 K/uL Abs Baso 0.14 LAB AMYEL 0.00 K/uL Abs Myelo 0.28 High LAB POLYCH POLYCHROMASIA 1+ LAB TEARDR TEARDROP CELLS Present LAB PLTEST PLATELET ESTIMATE Automated platelet count confirmed by manual slide review. Performed By: #### CA, CHM7, CKB, IPB, MGO, CBCDFC #### [facility] [address] [place] [address] [facility] [address] [place] [address] XR CHEST PORTABLE Observed: 07/31/2018 Status: F Source: [facility] 8:23 PM [facility] REPOSITORY EXAM: XR CHEST PORTABLE, 07/31/2018 19:25 [...] GLUCOSE BATTERY Collected: 07/31/2018 Status: F Source: [facility] 8:15 PM [facility] REPOSITORY TYPE CODE TESTS RESULT OUT OF REFERENCE UNITS RANGE LAB GLUP 70-99 mg/dL High Glucose (poc 175 device) Result Comment: No BRAVE per RN: PATIENT TYPE LAB PCSTYP *POC Capillary SAMPLE TYPE Blood *POC GLUCOSE BATTERY Collected: 07/31/2018 Status: F Source: [facility] 5:07 PM [facility] REPOSITORY TYPE CODE TESTS RESULT OUT OF REFERENCE UNITS RANGE LAB GLUP 70-99 mg/dL High Glucose (poc 215 device) Result Comment: No BRAVE per RN: PATIENT TYPE LAB PCSTYP *POC Capillary SAMPLE TYPE Blood *POC GLUCOSE BATTERY Collected: 07/31/2018 Status: F Source: [facility] 11:04 AM [facility] REPOSITORY TYPE CODE TESTS RESULT OUT OF REFERENCE UNITS RANGE LAB GLUP 70-99 mg/dL High Glucose (poc 164 device) Result Comment: No BRAVE per RN: PATIENT TYPE LAB PCSTYP *POC Capillary SAMPLE TYPE Blood *POC GLUCOSE BATTERY Collected: 07/31/2018 Status: F Source: [facility] 7:41 AM [facility] REPOSITORY TYPE CODE TESTS RESULT OUT OF REFERENCE UNITS RANGE LAB GLUP 70-99 mg/dL High Glucose (poc 154 device) Result Comment: No BRAVE per RN: PATIENT TYPE LAB PCSTYP *POC Capillary SAMPLE TYPE Blood *POC GLUCOSE BATTERY Collected: 07/31/2018 Status: F Source: [facility] 6:50 AM [facility] REPOSITORY TYPE CODE TESTS RESULT OUT OF REFERENCE UNITS RANGE LAB GLUP 70-99 mg/dL High Glucose (poc 140 device) Result Comment: No BRAVE per RN: PATIENT TYPE LAB PCSTYP *POC Capillary SAMPLE TYPE Blood AMMONIA Collected: 07/31/2018 Status: F Source: [facility] 4:28 AM [facility] REPOSITORY TYPE CODE TESTS RESULT OUT OF REFERENCE UNITS RANGE LAB NH3 6-47 umol/L High Ammonia 49 Performed By: #### NH3B #### U [facility] [address] [place] [id number] [place] [address] [place] [address] CALCIUM Collected: 07/31/2018 Status: F Source: [facility] 4:28 [facility] REPOSITORY TYPE CODE TESTS RESULT OUT OF REFERENCE UNITS RANGE LAB CA 8.6-10.5 mg/dL Low Calcium 7.7 Performed By: #### CA, CHM7, HFP, IPB, MGO, CBCDFC #### U [facility] [address] [place] [address] [facility] [address] [place] [address] CHEM 7 Collected: 07/31/2018 Status: F Source: [facility] 4:28 [facility] REPOSITORY TYPE CODE TESTS RESULT [...] >60 mL/min/1.73 Low sqM Est GFR,non 29 Dutch LAB GFRA >60 mL/min/1.73 Low sqM Est GFR, 35 Performed By: #### CA, CHM7, HFP, IPB, MGO, CBCDFC #### [facility] [address] [place] [id number] [facility] [address] [place] [address] HEPATIC FUNCTION Collected: 07/31/2018 Status: F Source: [facility] 4:28 [facility] REPOSITORY TYPE CODE TESTS RESULT [...] CHM7, HFP, IPB, MGO, CBCDFC #### [facility] [address] [place] [id number] [place] [address] [place] [address] INORGANIC PHOSPHATE Collected: 07/31/2018 Status: F Source: [facility] 4:28 [facility] REPOSITORY TYPE CODE TESTS RESULT OUT OF REFERENCE UNITS RANGE LAB IP 2.2-4.6 mg/dL Inorg Phosphate 3.3 Performed By: #### CA, CHM7, HFP, IPB, MGO, CBCDFC #### [facility] [address] [place] [address] [facility] [address] [place] [address] MAGNESIUM Collected: 07/31/2018 Status: F Source: [facility] 4:28 [facility] REPOSITORY TYPE CODE TESTS RESULT OUT OF REFERENCE UNITS RANGE LAB MG 1.6-2.6 mg/dL Magnesium 1.9 Performed By: #### CA, CHM7, HFP, IPB, MGO, CBCDFC #### [facility] [address] [place] [address] [facility] [address] [place], [place] [address] CBC,PLATELET,DIFFERENTIAL - CCL Collected: Status: F Source: [facility] 07/31/2018 4:28 AM [facility] REPOSITORY TYPE CODE TESTS RESULT [...] 0.66 Low LAB AMONO 0.22-0.87 K/uL Abs [place] 0.61 LAB AEOS 0.00-0.42 K/uL Abs Eos 0.00 LAB ABASO 0.00-0.15 K/uL Abs Baso 0.00 LAB AMETA 0.00 K/uL Abs [place] 0.22 High LAB AMYEL 0.00 K/uL Abs Myelo 0.11 High LAB OVALO OVALOCYTES Present LAB POLYCH POLYCHROMASIA 1+ LAB PLTEST PLATELET ESTIMATE Automated platelet count confirmed by manual slide review. LAB RMORPH Red Cell RBC Morphology indices confirmed by manual smear review. Performed By: #### CA, CHM7, HFP, IPB, MGO, CBCDFC #### [facility] [address] [place] [id number] [place] [address] [address] [place] [address] *POC GLUCOSE BATTERY Collected: 07/30/2018 Status: F Source: [facility] 9:14 PM [facility] REPOSITORY TYPE CODE TESTS RESULT OUT OF REFERENCE UNITS RANGE LAB GLUP 70-99 mg/dL High Glucose (poc 227 device) Result Comment: No BRAVE per RN: PATIENT TYPE LAB PCSTYP *POC Capillary SAMPLE TYPE Blood *POC GLUCOSE BATTERY Collected: 07/30/2018 Status: F Source: [facility] 4:45 PM [facility] REPOSITORY TYPE CODE TESTS RESULT OUT OF REFERENCE UNITS RANGE LAB GLUP 70-99 mg/dL High Glucose (poc 173 device) Result Comment: No BRAVE per RN: PATIENT TYPE LAB PCSTYP *POC Capillary SAMPLE TYPE Blood *POC GLUCOSE BATTERY Collected: 07/30/2018 Status: F Source: [facility] 12:39 PM [facility] REPOSITORY TYPE CODE TESTS RESULT OUT OF REFERENCE UNITS RANGE LAB GLUP 70-99 mg/dL High Glucose (poc 138 device) Result Comment: No BRAVE per RN: PATIENT TYPE LAB PCSTYP *POC Capillary SAMPLE TYPE Blood MEDIPORT PLACEMENT Observed: 07/30/2018 Status: F Source: [facility] 12:08 PM [facility] REPOSITORY EXAM: IR MEDIPORT PLACEMENT, 07/30/2018 11:57 [...] Route: Intravenous; 11:23 AM 07/30/18 lidocaine-epinephrine 2 %-[id number] injection 20 mL 17 mL Route: Other; [...] medication(s), I spent 20 minutes of continuous nkok-[id number] time with the patient prior to the [...] 0.2 minutes Rad Dose: 1 mGy IR [employer] Event Details User 10:45 AM 07/30/18 Timeout: [...] Intravenous KP 11:23 AM 07/30/18 lidocaine-epinephrine 2 %-[id number] injection 20 mL 17 mL Given Rate: [...] GLUCOSE BATTERY Collected: 07/30/2018 Status: F Source: [facility] 8:24 AM [facility] REPOSITORY TYPE CODE TESTS RESULT OUT OF REFERENCE UNITS RANGE LAB GLUP 70-99 mg/dL High Glucose (poc 107 device) Result Comment: No BRAVE per RN: PATIENT TYPE LAB PCSTYP *POC Capillary SAMPLE TYPE Blood CALCIUM Collected: 07/30/2018 Status: F Source: [facility] 1:17 AM [facility] REPOSITORY TYPE CODE TESTS RESULT OUT OF REFERENCE UNITS RANGE LAB CA 8.6-10.5 mg/dL Low Calcium 7.8 Performed By: #### CA, CHM7, IPB, MGO, CBCDFC #### [facility] [address] [place] [address] [facility] [address] [place] [address] CHEM 7 Collected: 07/30/2018 Status: F Source: [facility] 1:17 AM [facility] REPOSITORY TYPE CODE TESTS RESULT [...] >60 mL/min/1.73 Low sqM Est GFR,non 28 Dutch LAB GFRA >60 mL/min/1.73 Low sqM Est GFR, 34 Performed By: #### CA, CHM7, IPB, MGO, CBCDFC #### [facility] [address] [place] [address] [place] [address] INORGANIC PHOSPHATE Collected: 07/30/2018 Status: F Source: [facility] 1:17 AM [facility] REPOSITORY TYPE CODE TESTS RESULT OUT OF REFERENCE UNITS RANGE LAB IP 2.2-4.6 mg/dL Inorg Phosphate 2.7 Performed By: #### CA, CHM7, IPB, MGO, CBCDFC #### [facility] [address] [place] [address] [place] [address] MAGNESIUM Collected: 07/30/2018 Status: F Source: [facility] 1:17 AM [facility] REPOSITORY TYPE CODE TESTS RESULT OUT OF REFERENCE UNITS RANGE LAB MG 1.6-2.6 mg/dL Magnesium 1.8 Performed By: #### CA, CHM7, IPB, MGO, CBCDFC #### [facility] [address] [place] [address] [place] [address] CBC,PLATELET,DIFFERENTIAL - CCL Collected: Status: F Source: [facility] 07/30/2018 1:17 AM [facility] REPOSITORY TYPE CODE TESTS RESULT [...] 0.79 Low LAB AMONO 0.22-0.87 K/uL Abs [place] 0.39 LAB AEOS 0.00-0.42 K/uL Abs Eos 0.10 LAB ABASO 0.00-0.15 K/uL Abs Baso 0.10 LAB AMETA 0.00 K/uL Abs [place] 0.19 High LAB AMYEL 0.00 K/uL Abs Myelo 0.19 High LAB OVALO OVALOCYTES Present LAB POLYCH POLYCHROMASIA 1+ LAB PLTEST PLATELET ESTIMATE Automated platelet count confirmed by manual slide review. Performed By: #### CA, CHM7, IPB, MGO, CBCDFC #### [facility] [address] [place] [address] [facility] [address] [place] [address] *POC GLUCOSE BATTERY Collected: 07/29/2018 Status: F Source: [facility] 10:34 PM [facility] REPOSITORY TYPE CODE TESTS RESULT OUT OF REFERENCE UNITS RANGE LAB GLUP 70-99 mg/dL High Glucose (poc 196 device) Result Comment: No BRAVE per RN: PATIENT TYPE LAB PCSTYP *POC Capillary SAMPLE TYPE Blood *POC GLUCOSE BATTERY Collected: 07/29/2018 Status: F Source: [facility] 3:44 PM [facility] REPOSITORY TYPE CODE TESTS RESULT OUT OF REFERENCE UNITS RANGE LAB GLUP 70-99 mg/dL High Glucose (poc 184 device) Result Comment: No BRAVE per RN: PATIENT TYPE LAB PCSTYP *POC Capillary SAMPLE TYPE Blood *POC GLUCOSE BATTERY Collected: 07/29/2018 Status: F Source: [facility] 11:07 AM [facility] REPOSITORY TYPE CODE TESTS RESULT OUT OF REFERENCE UNITS RANGE LAB GLUP 70-99 mg/dL High Glucose (poc 175 device) Result Comment: No BRAVE per RN: PATIENT TYPE LAB PCSTYP *POC Capillary SAMPLE TYPE Blood *POC GLUCOSE BATTERY Collected: 07/29/2018 Status: F [facility] [place] 7:51 AM [facility] REPOSITORY TYPE CODE TESTS RESULT OUT OF REFERENCE UNITS RANGE LAB GLUP 70-99 mg/dL High Glucose (poc 123 device) Result Comment: No BRAVE per RN: PATIENT TYPE LAB PCSTYP *POC Capillary SAMPLE TYPE Blood CALCIUM Collected: 07/29/2018 Status: F Source: [facility] 3:00 AM [facility] REPOSITORY TYPE CODE TESTS RESULT OUT OF REFERENCE UNITS RANGE LAB CA 8.6-10.5 mg/dL Low Calcium 8.2 Performed By: #### CA, CHM7, HFP, IPB, MGO, CBCDFC #### [facility] [place] [address] CHEM 7 Collected: 07/29/2018 Status: F Source: [facility] 3:00 AM [facility] REPOSITORY TYPE CODE TESTS RESULT [...] >60 mL/min/1.73 Low sqM Est GFR,non 27 Dutch LAB GFRA >60 mL/min/1.73 Low sqM Est GFR, 33 Performed By: #### CA, CHM7, HFP, IPB, MGO, CBCDFC #### [facility] [address] [place] [address] [facility] [address] [place] [address] HEPATIC FUNCTION Collected: 07/29/2018 Status: F Source: [facility] 3:00 AM [facility] REPOSITORY TYPE CODE TESTS RESULT [...] CA, CHM7, HFP, IPB, MGO, CBCDFC #### [facility] [address] [place] [id number] [place] [address] [address] [place] [address] INORGANIC PHOSPHATE Collected: 07/29/2018 Status: F Source: [facility] 3:00 AM [facility] REPOSITORY TYPE CODE TESTS RESULT OUT OF REFERENCE UNITS RANGE LAB IP 2.2-4.6 mg/dL Inorg Phosphate 2.8 Performed By: #### CA, CHM7, HFP, IPB, MGO, CBCDFC #### [facility] [address] [place] [address] [facility] [address] [place] [address] MAGNESIUM Collected: 07/29/2018 Status: F Source: [facility] 3:00 AM [facility] REPOSITORY TYPE CODE TESTS RESULT OUT OF REFERENCE UNITS RANGE LAB MG 1.6-2.6 mg/dL Magnesium 1.8 Performed By: #### CA, CHM7, HFP, IPB, MGO, CBCDFC #### [facility] [address] [place] [address] [facility] [address] [place], [place] [address] CBC,PLATELET,DIFFERENTIAL - CCL Collected: Status: F Source: [facility] 07/29/2018 3:00 AM [facility] REPOSITORY TYPE CODE TESTS RESULT [...] 0.81 Low LAB AMONO 0.22-0.87 K/uL Abs [place] 1.10 High LAB AEOS 0.00-0.42 K/uL Abs Eos 0.00 LAB ABASO 0.00-0.15 K/uL Abs Baso 0.00 LAB AMETA 0.00 K/uL Abs [place] 0.23 High LAB AMYEL 0.00 K/uL Abs Myelo 0.18 High LAB POLYCH POLYCHROMASIA 1+ LAB PLTEST PLATELET ESTIMATE Automated platelet count confirmed by manual slide review. Performed By: #### CA, CHM7, HFP, IPB, MGO, CBCDFC #### [facility] [address] [place] [address] [facility] [address] [place], [place] [address] *POC GLUCOSE BATTERY Collected: 07/28/2018 Status: F Source: [facility] 9:08 PM [facility] REPOSITORY TYPE CODE TESTS RESULT OUT OF REFERENCE UNITS RANGE LAB GLUP 70-99 mg/dL High Glucose (poc 219 device) Result Comment: No BRAVE per RN: PATIENT TYPE LAB PCSTYP *POC Capillary SAMPLE TYPE Blood *POC GLUCOSE BATTERY Collected: 07/28/2018 Status: F Source: [facility] 4:10 PM [facility] REPOSITORY TYPE CODE TESTS RESULT OUT OF REFERENCE UNITS RANGE LAB GLUP 70-99 mg/dL High Glucose (poc 165 device) Result Comment: Notified RNread back No BRAVE per RN: PATIENT TYPE LAB PCSTYP *POC Capillary SAMPLE TYPE Blood *POC GLUCOSE BATTERY Collected: 07/28/2018 Status: F Source: [facility] 11:51 AM [facility] REPOSITORY TYPE CODE TESTS RESULT OUT OF REFERENCE UNITS RANGE LAB GLUP 70-99 mg/dL High Glucose (poc 227 device) Result Comment: No BRAVE per RN: PATIENT TYPE LAB PCSTYP *POC Capillary SAMPLE TYPE Blood *POC GLUCOSE BATTERY Collected: 07/28/2018 Status: F Source: [facility] 8:02 AM [facility] REPOSITORY TYPE CODE TESTS RESULT OUT OF REFERENCE UNITS RANGE LAB GLUP 70-99 mg/dL High Glucose (poc 122 device) Result Comment: No BRAVE per RN: PATIENT TYPE LAB PCSTYP *POC Capillary SAMPLE TYPE Blood CALCIUM Collected: 07/28/2018 Status: F Source: [facility] 4:01 AM [facility] REPOSITORY TYPE CODE TESTS RESULT OUT OF REFERENCE UNITS RANGE LAB CA 8.6-10.5 mg/dL Low Calcium 8.1 Performed By: #### CA, CHM7, IPB, MGO, CBCDFC #### [facility] [address] [place] [address] [facility] [address] [place] [address] CHEM 7 Collected: 07/28/2018 Status: F Source: [facility] 4:01 AM [facility] REPOSITORY TYPE CODE TESTS RESULT [...] >60 mL/min/1.73 Low sqM Est GFR,non 25 Dutch LAB GFRA >60 mL/min/1.73 Low sqM Est GFR, 31 Performed By: #### CA, CHM7, IPB, MGO, CBCDFC #### [facility] [address] [place] [address] [address] [place] [address] INORGANIC PHOSPHATE Collected: 07/28/2018 Status: F Source: [facility] 4:01 AM [facility] REPOSITORY TYPE CODE TESTS RESULT OUT OF REFERENCE UNITS RANGE LAB IP 2.2-4.6 mg/dL Inorg Phosphate 2.6 Performed By: #### CA, CHM7, IPB, MGO, CBCDFC #### [facility] [address] [address] MAGNESIUM Collected: 07/28/2018 Status: F Source: [facility] 4:01 [facility] REPOSITORY TYPE CODE TESTS RESULT OUT OF REFERENCE UNITS RANGE LAB MG 1.6-2.6 mg/dL Magnesium 1.8 Performed By: #### CA, CHM7, IPB, MGO, CBCDFC #### [facility] [address] [address] CBC,PLATELET,DIFFERENTIAL - CCL Collected: Status: F Source: [facility] 07/28/2018 4:01 [facility] REPOSITORY TYPE CODE TESTS RESULT [...] 1.02 Low LAB AMONO 0.22-0.87 K/uL Abs [place] 0.41 LAB AEOS 0.00-0.42 K/uL Abs Eos 0.05 LAB ABASO 0.00-0.15 K/uL Abs Baso 0.00 LAB AMETA 0.00 K/uL Abs [place] 0.10 High LAB AMYEL 0.00 K/uL Abs Myelo 0.10 High LAB APRO 0.00 K/uL Abs Promyelo 0.05 High LAB OVALO OVALOCYTES Present LAB POLYCH POLYCHROMASIA 2+ LAB PLTEST PLATELET ESTIMATE Automated platelet count confirmed by manual slide review. Performed By: #### CA, CHM7, IPB, MGO, CBCDFC #### [facility] [address] [place] [address] [address] [place] [address] *POC GLUCOSE BATTERY Collected: 07/27/2018 Status: F Source: [facility] 9:01 PM [facility] REPOSITORY TYPE CODE TESTS RESULT OUT OF REFERENCE UNITS RANGE LAB GLUP 70-99 mg/dL High Glucose (poc 178 device) Result Comment: Notified RNread back No BRAVE per RN: PATIENT TYPE LAB PCSTYP *POC Capillary SAMPLE TYPE Blood *POC GLUCOSE BATTERY Collected: 07/27/2018 Status: F Source: [facility] 5:28 PM [facility] REPOSITORY TYPE CODE TESTS RESULT OUT OF REFERENCE UNITS RANGE LAB GLUP 70-99 mg/dL High Glucose (poc 143 device) Result Comment: No BRAVE per RN: PATIENT TYPE LAB PCSTYP *POC Capillary SAMPLE TYPE Blood *POC GLUCOSE BATTERY Collected: 07/27/2018 Status: F Source: [facility] 12:25 PM [facility] REPOSITORY TYPE CODE TESTS RESULT OUT OF REFERENCE UNITS RANGE LAB GLUP 70-99 mg/dL High Glucose (poc 139 device) Result Comment: No BRAVE per RN: PATIENT TYPE LAB PCSTYP *POC Capillary SAMPLE TYPE Blood *POC GLUCOSE BATTERY Collected: 07/27/2018 Status: F Source: [facility] 10:23 AM [facility] REPOSITORY TYPE CODE TESTS RESULT OUT OF REFERENCE UNITS RANGE LAB GLUP 70-99 mg/dL High Glucose (poc 164 device) Result Comment: No BRAVE per RN: PATIENT TYPE LAB PCSTYP *POC Capillary SAMPLE TYPE Blood *POC GLUCOSE BATTERY Collected: 07/27/2018 Status: F Source: [facility] 7:57 AM [facility] REPOSITORY TYPE CODE TESTS RESULT OUT OF REFERENCE UNITS RANGE LAB GLUP 70-99 mg/dL Glucose (poc 85 device) Result Comment: No BRAVE per RN: PATIENT TYPE LAB PCSTYP *POC Capillary SAMPLE TYPE Blood *POC GLUCOSE BATTERY Collected: 07/27/2018 Status: F Source: [facility] 6:26 AM [facility] REPOSITORY TYPE CODE TESTS RESULT OUT OF REFERENCE UNITS RANGE LAB GLUP 70-99 mg/dL High Glucose (poc 116 device) Result Comment: No BRAVE per RN: PATIENT TYPE LAB PCSTYP *POC Capillary SAMPLE TYPE Blood *POC GLUCOSE BATTERY Collected: 07/27/2018 Status: F Source: [facility] 6:04 AM [facility] REPOSITORY TYPE CODE TESTS RESULT OUT OF REFERENCE UNITS RANGE LAB GLUP 70-99 mg/dL Low Glucose (poc 52 device) Result Comment: Notified RNread back No BRAVE per RN: PATIENT TYPE LAB PCSTYP *POC Capillary SAMPLE TYPE Blood HEPATIC FUNCTION Collected: 07/27/2018 Status: F Source: [facility] PANEL 4:50 AM [facility] REPOSITORY TYPE CODE TESTS RESULT [...] CHM7, CA, IPB, MGO, CBCDFC #### [facility] [address] [place] [address] CHEM 7 Collected: 07/27/2018 Status: F Source: [facility] 4:50 AM [facility] REPOSITORY TYPE CODE TESTS RESULT [...] CHM7, CA, IPB, MGO, CBCDFC #### [facility] [address] [place] [address] CALCIUM Collected: 07/27/2018 Status: F Source: [facility] 4:50 AM [facility] REPOSITORY TYPE CODE TESTS RESULT OUT OF REFERENCE UNITS RANGE LAB CA 8.6-10.5 mg/dL Low Calcium 8.2 Performed By: #### HFP, CHM7, CA, IPB, MGO, CBCDFC #### [facility] [address] [place] [address] [place] [address] INORGANIC PHOSPHATE Collected: 07/27/2018 Status: F Source: [facility] 4:50 AM [facility] REPOSITORY TYPE CODE TESTS RESULT OUT OF REFERENCE UNITS RANGE LAB IP 2.2-4.6 mg/dL Inorg Phosphate 2.8 Performed By: #### HFP, CHM7, CA, IPB, MGO, CBCDFC #### [facility] [address] [place] [address] [place] [address] MAGNESIUM Collected: 07/27/2018 Status: F Source: [facility] 4:50 AM [facility] REPOSITORY TYPE CODE TESTS RESULT OUT OF REFERENCE UNITS RANGE LAB MG 1.6-2.6 mg/dL Magnesium 1.8 Performed By: #### HFP, CHM7, CA, IPB, MGO, CBCDFC #### [facility] [address] [place] [address] [place] [address] CBC,PLATELET,DIFFERENTIAL - CCL Collected: Status: F Source: [facility] 07/27/2018 4:50 AM [facility] REPOSITORY TYPE CODE TESTS RESULT [...] 0.53 Low LAB AMONO 0.22-0.87 K/uL Abs [place] 0.70 LAB AEOS 0.00-0.42 K/uL Abs Eos [...] CHM7, CA, IPB, MGO, CBCDFC #### [facility] [address] [place] [address] [address] [place] [address] *POC GLUCOSE BATTERY Collected: 07/26/2018 Status: F Source: [facility] 9:05 PM [facility] REPOSITORY TYPE CODE TESTS RESULT OUT OF REFERENCE UNITS RANGE LAB GLUP 70-99 mg/dL High Glucose (poc 132 device) Result Comment: Notified RNread back No BRAVE per RN: PATIENT TYPE LAB PCSTYP *POC Capillary SAMPLE TYPE Blood *POC GLUCOSE BATTERY Collected: 07/26/2018 Status: F Source: [facility] 4:57 PM [facility] REPOSITORY TYPE CODE TESTS RESULT OUT OF REFERENCE UNITS RANGE LAB GLUP 70-99 mg/dL High Glucose (poc 127 device) Result Comment: No BRAVE per RN: PATIENT TYPE LAB PCSTYP *POC Capillary SAMPLE TYPE Blood XR CHEST PORTABLE Observed: 07/26/2018 Status: F Source: [facility] 1:57 PM [facility] REPOSITORY EXAM: XR CHEST PORTABLE, 07/26/2018 13:44 [...] GLUCOSE BATTERY Collected: 07/26/2018 Status: F Source: [facility] 10:50 AM [facility] REPOSITORY TYPE CODE TESTS RESULT OUT OF REFERENCE UNITS RANGE LAB GLUP 70-99 mg/dL High Glucose (poc 178 device) Result Comment: No BRAVE per RN: PATIENT TYPE LAB PCSTYP *POC Capillary SAMPLE TYPE Blood *POC GLUCOSE BATTERY Collected: 07/26/2018 Status: F Source: [facility] 8:25 AM [facility] REPOSITORY TYPE CODE TESTS RESULT OUT OF REFERENCE UNITS RANGE LAB GLUP 70-99 mg/dL High Glucose (poc 142 device) Result Comment: No BRAVE per RN: PATIENT TYPE LAB PCSTYP *POC Capillary SAMPLE TYPE Blood CALCIUM Collected: 07/26/2018 Status: F Source: [facility] 3:32 AM [facility] REPOSITORY TYPE CODE TESTS RESULT OUT OF REFERENCE UNITS RANGE LAB CA 8.6-10.5 mg/dL Low Calcium 8.0 Performed By: #### CA, CHM7, IPB, MGO, CBCDFC #### [facility] [address] [place] [address] [address] [place] [address] CHEM 7 Collected: 07/26/2018 Status: F Source: [facility] 3:32 AM [facility] REPOSITORY TYPE CODE TESTS RESULT [...] >60 mL/min/1.73 Low sqM Est GFR,non 25 Dutch LAB GFRA >60 mL/min/1.73 Low sqM Est GFR, 30 Performed By: #### CA, CHM7, IPB, MGO, CBCDFC #### [facility] [address] [place] [address] [place] [address] INORGANIC PHOSPHATE Collected: 07/26/2018 Status: F Source: [facility] 3:32 AM [facility] REPOSITORY TYPE CODE TESTS RESULT OUT OF REFERENCE UNITS RANGE LAB IP 2.2-4.6 mg/dL Inorg Phosphate 3.4 Performed By: #### CA, CHM7, IPB, MGO, CBCDFC #### [facility] [address] [place] [address] [place] [address] MAGNESIUM Collected: 07/26/2018 Status: F Source: [facility] 3:32 AM [facility] REPOSITORY TYPE CODE TESTS RESULT OUT OF REFERENCE UNITS RANGE LAB MG 1.6-2.6 mg/dL Magnesium 1.9 Performed By: #### CA, CHM7, IPB, MGO, CBCDFC #### [facility] [address] [place] [address] [place] [address] CBC,PLATELET,DIFFERENTIAL - CCL Collected: Status: F Source: [facility] 07/26/2018 3:32 AM [facility] REPOSITORY TYPE CODE TESTS RESULT [...] 0.76 Low LAB AMONO 0.22-0.87 K/uL Abs [place] 0.37 LAB AEOS 0.00-0.42 K/uL Abs Eos [...] CA, CHM7, IPB, MGO, CBCDFC #### [facility] [address] [place] [address] [address] [place] [address] *POC GLUCOSE BATTERY Collected: 07/25/2018 Status: F Source: [facility] 9:12 PM [facility] REPOSITORY TYPE CODE TESTS RESULT OUT OF REFERENCE UNITS RANGE LAB GLUP 70-99 mg/dL High Glucose (poc 229 device) Result Comment: No BRAVE per RN: PATIENT TYPE LAB PCSTYP *POC Capillary SAMPLE TYPE Blood *POC GLUCOSE BATTERY Collected: 07/25/2018 Status: F Source: [facility] 6:34 PM [facility] REPOSITORY TYPE CODE TESTS RESULT OUT OF REFERENCE UNITS RANGE LAB GLUP 70-99 mg/dL High Glucose (poc 146 device) Result Comment: No BRAVE per RN: PATIENT TYPE LAB PCSTYP *POC Capillary SAMPLE TYPE Blood *POC GLUCOSE BATTERY Collected: 07/25/2018 Status: F Source: [facility] 1:24 PM [facility] REPOSITORY TYPE CODE TESTS RESULT OUT OF REFERENCE UNITS RANGE LAB GLUP 70-99 mg/dL High Glucose (poc 140 device) Result Comment: No BRAVE per RN: PATIENT TYPE LAB PCSTYP *POC Capillary SAMPLE TYPE Blood *POC GLUCOSE BATTERY Collected: 07/25/2018 Status: F Source: [facility] 11:37 AM [facility] REPOSITORY TYPE CODE TESTS RESULT OUT OF REFERENCE UNITS RANGE LAB GLUP 70-99 mg/dL High Glucose (poc 155 device) Result Comment: No BRAVE per RN: PATIENT TYPE LAB PCSTYP *POC Capillary SAMPLE TYPE Blood *POC GLUCOSE BATTERY Collected: 07/25/2018 Status: F Source: [facility] 10:34 AM [facility] REPOSITORY TYPE CODE TESTS RESULT OUT OF REFERENCE UNITS RANGE LAB GLUP 70-99 mg/dL Low Glucose (poc 69 device) Result Comment: No BRAVE per RN: PATIENT TYPE LAB PCSTYP *POC Capillary SAMPLE TYPE Blood MRI TIBIA LEFT Observed: 07/25/2018 Status: F Source: [facility] WITHOUT CONTRAST 10:13 AM [facility] REPOSITORY EXAM: MRI TIBIA LEFT WITHOUT CONTRAST, [...] this appearance. Observed: 07/25/2018 Status: F Source: [facility] URINE CULTURE -UHE 8:19 AM [facility] REPOSITORY SOURCE: URINE-CLEAN CATCH: RESULT: NO GROWTH REPORT STATUS: 07/26/2018 FINAL Performed By: #### UR #### [address] [address] Blood Cultures processed at: [facility] CALCIUM Collected: 07/25/2018 Status: F Source: [facility] 3:11 AM [facility] REPOSITORY TYPE CODE TESTS RESULT OUT OF REFERENCE UNITS RANGE LAB CA 8.6-10.5 mg/dL Low Calcium 8.2 Performed By: #### CA, CHM7, CKB, IPB, MGO, IAPTHD, CBCDFC #### [facility] [address] [place] [address] [facility] [address] [place] [address] CHEM 7 Collected: 07/25/2018 Status: F Source: [facility] 3:11 AM [facility] REPOSITORY TYPE CODE TESTS RESULT [...] >60 mL/min/1.73 Low sqM Est GFR,non 25 Dutch LAB GFRA >60 mL/min/1.73 Low sqM Est GFR, 31 Performed By: #### CA, CHM7, CKB, IPB, MGO, IAPTHD, CBCDFC #### [facility] [address] [place] [address] [place] [address] CK Collected: 07/25/2018 Status: F Source: [facility] 3:11 AM [facility] REPOSITORY TYPE CODE TESTS RESULT OUT OF REFERENCE UNITS RANGE LAB CK 30-184 U/L Creatine 82 Kinase Performed By: #### CA, CHM7, CKB, IPB, MGO, IAPTHD, CBCDFC #### [facility] [address] [place] [address] [facility] [address] [place] [address] INORGANIC PHOSPHATE Collected: 07/25/2018 Status: F Source: [facility] 3:11 AM [facility] REPOSITORY TYPE CODE TESTS RESULT OUT OF REFERENCE UNITS RANGE LAB IP 2.2-4.6 mg/dL Low Inorg Phosphate 1.8 Performed By: #### CA, CHM7, CKB, IPB, MGO, IAPTHD, CBCDFC #### [facility] [address] [place] [address] [facility] [address] [place] [address] MAGNESIUM Collected: 07/25/2018 Status: F Source: [facility] 3:11 AM [facility] REPOSITORY TYPE CODE TESTS RESULT OUT OF REFERENCE UNITS RANGE LAB MG 1.6-2.6 mg/dL Magnesium 1.8 Performed By: #### CA, CHM7, CKB, IPB, MGO, IAPTHD, CBCDFC #### [facility] [address] [place] [id number] [place] [address] [address] [place] [address] PATHOLOGIST DIFFERENTIAL Collected: 07/25/2018 Status: F Source: [facility] 3:11 AM [facility] REPOSITORY TYPE CODE TESTS RESULT [...] CKB, IPB, MGO, IAPTHD, CBCDFC #### [facility] [address] [place], [place] [id number] [facility] [address] [place] [address] CBC,PLATELET,DIFFERENTIAL - CCL Collected: Status: F Source: [facility] 07/25/2018 3:11 AM [facility] REPOSITORY TYPE CODE TESTS RESULT [...] 0.55 Low LAB AMONO 0.22-0.87 K/uL Abs [place] 0.13 Low LAB AEOS 0.00-0.42 K/uL Abs [...] CKB, IPB, MGO, IAPTHD, CBCDFC #### [facility] [address] [place] [address] [address] [place] [address] Observed: 07/25/2018 Status: F Source: [facility] BLOOD:ROUTINE II 12:30 AM [facility] REPOSITORY SOURCE: BLOOD, PERIPHERAL: Left Hand RESULT: NO GROWTH DAY 5 OF 5 REPORT STATUS: 07/30/2018 FINAL Performed By: #### FAST2 #### [address] [address] Blood Cultures processed at: [facility] Observed: 07/25/2018 Status: F Source: [facility] BLOOD:ROUTINE I 12:20 AM [facility] REPOSITORY SOURCE: BLOOD, PERIPHERAL: Right Hand RESULT: NO GROWTH DAY 5 OF 5 REPORT STATUS: 07/30/2018 FINAL Performed By: #### JARAD #### [address] [address] Blood Cultures processed at: [facility] *POC GLUCOSE BATTERY Collected: 07/24/2018 Status: F Source: [facility] 9:14 PM [facility] REPOSITORY TYPE CODE TESTS RESULT OUT OF REFERENCE UNITS RANGE LAB GLUP 70-99 mg/dL High Glucose (poc 197 device) Result Comment: Notified RNread back No BRAVE per RN: PATIENT TYPE LAB PCSTYP *POC Capillary SAMPLE TYPE Blood *POC GLUCOSE BATTERY Collected: 07/24/2018 Status: F Source: [facility] 6:50 PM [facility] REPOSITORY TYPE CODE TESTS RESULT OUT OF REFERENCE UNITS RANGE LAB GLUP 70-99 mg/dL High Glucose (poc 171 device) Result Comment: No BRAVE per RN: PATIENT TYPE LAB PCSTYP *POC Capillary SAMPLE TYPE Blood Observed: 07/24/2018 Status: F Source: [facility] CATHETER TIP CULTURE 5:24 PM [facility] REPOSITORY SOURCE: CATHETER, PICC: RESULT: NO GROWTH DAY 2 REPORT STATUS: 07/26/2018 FINAL Performed By: #### CTIP #### [facility] [address] [place] [address] Blood Cultures processed at: [facility] VANCOMYCIN, TROUGH Collected: 07/24/2018 Status: F Source: [facility] 3:48 PM [facility] REPOSITORY TYPE CODE TESTS RESULT OUT OF REFERENCE UNITS RANGE LAB VANCTR 10.0-20.0 mcg/mL 18.1 Vancomycin, Trough Performed By: #### VANCTR #### [facility] [address] [place] [address] [facility] [address] [place], [place] [address] Observed: 07/24/2018 Status: F Source: [facility] FUNGUS: SKIN, HAIR, 2:57 PM [facility] REPOSITORY SOURCE: SKIN: Punch Biopsy Tissue Left Leg COMMENT: Cultures held 28 days. Tiny Tissue RESULT: NO GROWTH TO DATE REPORT STATUS: 08/21/2018 FINAL Performed By: #### SHNF #### [facility] [address] [place] [address] Blood Cultures processed at: [facility] SURGICAL PATHOLOGY Observed: 07/24/2018 Status: F Source: [facility] 2:48 PM [facility] REPOSITORY Surgical Pathology Report Patient Name: KIM DILLON Med. Rec #: [id number] Submitting Physician: JAZMYN MI --- Clinical History [...] of edema. Clinical-pathologic correlation may be helpful. [email or web address]:07/30/2018 Electronically Signed By BLAYNE MAYS MD 07/30/2018 08:26:11 Professional Interpretation performed at location: [address] [place] [address] ---SPECIMEN(S) RECEIVED:--- SBX A: Skin, BX, not [...] bisected. TE 1 Lab Use Only: JobID [id number] Gross description by: Nita Huddleston Performed By: #### SURGP #### [facility] [address] [place] [address] [facility] [address] [place], [place] [address] BACT CULTURE/DIR Observed: Status: F Source: [place] [facility],LESION,TISSUE,DEVICE-E 07/24/2018 1:28 [facility] REPOSITORY SOURCE: SKIN: Punch Biopsy Tissue Left Leg COMMENT: Tiny Tissue MICROSCOPIC: Neutrophils, None NO ORGANISMS SEEN Gram Stain read at [facility] QUANTITATION: <<NOT APPLICABLE>> RESULT: NO GROWTH DAY 2 REPORT STATUS: 07/26/2018 FINAL Performed By: #### #### [address] [address] Blood Cultures processed at: [facility] Observed: 07/24/2018 Status: I Source: [facility] AFB: TISSUE -UHE 1:28 PM [facility] REPOSITORY SOURCE: SKIN: Punch Biopsy Tissue Left Leg COMMENT: Tiny Tissue MICROSCOPIC: No Acid Fast Bacillus Seen :Examined by Fluorochrome Stain RESULT: NO GROWTH DAY 33 OF 42 REPORT STATUS: PENDING Performed By: #### AFBT #### [address] [address] Blood Cultures processed at: [facility] Observed: 07/24/2018 Status: F Source: [facility] ANAEROBE CULTURE -UHE 1:28 PM [facility] REPOSITORY SOURCE: SKIN: Punch Biopsy Tissue Left Leg COMMENT: Tiny Tissue MICROSCOPIC: See Routine Culture RESULT: NO ANAEROBIC GROWTH REPORT STATUS: 07/30/2018 FINAL Performed By: #### REINALDO #### [facility] [address] [place] [address] Blood Cultures processed at: [facility] *POC GLUCOSE BATTERY Collected: 07/24/2018 Status: F Source: [facility] 12:59 PM [facility] REPOSITORY TYPE CODE TESTS RESULT OUT OF REFERENCE UNITS RANGE LAB GLUP 70-99 mg/dL High Glucose (poc 145 device) Result Comment: No BRAVE per RN: PATIENT TYPE LAB PCSTYP *POC Capillary SAMPLE TYPE Blood [facility] Observed: 07/24/2018 Status: F Source: [facility] CONSULT 11:59 AM [facility] REPOSITORY [facility] [address] [place] [address] [facility] Consult 07/22/18 0939 MR#: [id number] Acct: [id number] Name: KIM DILLON Rep #: [id number] : 1955 63 From: Rita BALLESTEROS PCP: ELSLI Chang Status: REG RCR Y Location: WC [...] is a closer facility than driving to [place] daily. She started HBOT in [place] a couple weeks ago before her first [...] this issue further with her physicians in [place]. 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) Code Visit Office Visits / Consults: 98697 OV L4 Est 07/24/18 1159 <Electronically signed by Rita BALLESTEROS> Date Rita BALLESTEROS CC: Signed Observed: 07/24/2018 Status: F Source: [facility] TRANSFUSE PLATELETS 11:19 [facility] REPOSITORY CROSSMATCH EXPIRATION: 07/25/2018 UNIT NUMBER: [id number] BLOOD COMPONENT TYPE: Platelet Pheresis,Leukoreduced,[id number] STATUS OF UNIT: Issued, Final TRANSFUSION STATUS: OK TO TRANSFUSE Performed By: #### TPLT #### [facility] [address] [place] [address] [place] [address] BACT CULTURE/DIR Observed: Status: F Source: [place] [facility],LESION,TISSUE,DEVICE-UHE 07/24/2018 10:26 [facility] REPOSITORY SOURCE: WOUND: Right Knee Drainage COMMENT: eSwab transport medium sent MICROSCOPIC: Neutrophils, None Acellular debris present NO ORGANISMS SEEN QUANTITATION: <<NOT APPLICABLE>> RESULT: NO GROWTH DAY 2 REPORT STATUS: 07/26/2018 FINAL Performed By: #### GEN #### [address] [address] Blood Cultures processed at: [facility] *POC GLUCOSE BATTERY Collected: 07/24/2018 Status: F Source: [facility] 8:08 AM [facility] REPOSITORY TYPE CODE TESTS RESULT OUT OF REFERENCE UNITS RANGE LAB GLUP 70-99 mg/dL High Glucose (poc 133 device) Result Comment: No BRAVE per RN: PATIENT TYPE LAB PCSTYP *POC Capillary SAMPLE TYPE Blood CBC,PLATELET,DIFFERENTIAL - CCL Collected: Status: F Source: [facility] 07/24/2018 5:17 AM [facility] REPOSITORY TYPE CODE TESTS RESULT [...] CBCDFC, CA, CHM7, HFP, IPB, MGO #### [facility] [address] [place] [address] [place] [address] CALCIUM Collected: 07/24/2018 Status: F Source: [facility] 5:17 AM [facility] REPOSITORY TYPE CODE TESTS RESULT OUT OF REFERENCE UNITS RANGE LAB CA 8.6-10.5 mg/dL Low Calcium 8.0 Performed By: #### CBCDFC, CA, CHM7, HFP, IPB, MGO #### [facility] [address] [place] [address] [place] [address] CHEM 7 Collected: 07/24/2018 Status: F Source: [facility] 5:17 AM [facility] REPOSITORY TYPE CODE TESTS RESULT [...] >60 mL/min/1.73 Low sqM Est GFR,non 30 Dutch LAB GFRA >60 mL/min/1.73 Low sqM Est GFR, 36 Performed By: #### CBCDFC, CA, CHM7, HFP, IPB, MGO #### [facility] [address] [place] [address] [place] [address] HEPATIC FUNCTION Collected: 07/24/2018 Status: F Source: [facility] 5:17 AM [facility] REPOSITORY TYPE CODE TESTS RESULT [...] CBCDFC, CA, CHM7, HFP, IPB, MGO #### [facility] [address] [place] [address] [place] [address] [place] [address] INORGANIC PHOSPHATE Collected: 07/24/2018 Status: F Source: [facility] 5:17 AM [facility] REPOSITORY TYPE CODE TESTS RESULT OUT OF REFERENCE UNITS RANGE LAB IP 2.2-4.6 mg/dL Inorg Phosphate 2.2 Performed By: #### CBCDFC, CA, CHM7, HFP, IPB, MGO #### [facility] [address] [place] [address] [facility] [address] [address] MAGNESIUM Collected: 07/24/2018 Status: F Source: [facility] 5:17 AM [facility] REPOSITORY TYPE CODE TESTS RESULT OUT OF REFERENCE UNITS RANGE LAB MG 1.6-2.6 mg/dL Magnesium 1.8 Performed By: #### CBCDFC, CA, CHM7, HFP, IPB, MGO #### [facility] [address] [place] [address] [facility] [address] [place] [address] *POC GLUCOSE BATTERY Collected: 07/23/2018 Status: F Source: [facility] 9:09 PM [facility] REPOSITORY TYPE CODE TESTS RESULT OUT OF REFERENCE UNITS RANGE LAB GLUP 70-99 mg/dL High Glucose (poc 153 device) Result Comment: No BRAVE per RN: PATIENT TYPE LAB PCSTYP *POC Capillary SAMPLE TYPE Blood *POC GLUCOSE BATTERY Collected: 07/23/2018 Status: F Source: [facility] 5:28 PM [facility] REPOSITORY TYPE CODE TESTS RESULT OUT OF REFERENCE UNITS RANGE LAB GLUP 70-99 mg/dL High Glucose (poc 132 device) Result Comment: No BRAVE per RN: PATIENT TYPE LAB PCSTYP *POC Capillary SAMPLE TYPE Blood CBC,PLATELET,DIFFERENTIAL - CCL Collected: Status: F Source: [facility] 07/23/2018 3:35 PM [facility] REPOSITORY TYPE CODE TESTS RESULT [...] 0.0 Performed By: #### CBCDFC #### [facility] [address] [place], [place] [address] [place] [address] [address] [place] [address] *POC GLUCOSE BATTERY Collected: 07/23/2018 Status: F Source: [facility] 11:47 AM [facility] REPOSITORY TYPE CODE TESTS RESULT OUT OF REFERENCE UNITS RANGE LAB GLUP 70-99 mg/dL High Glucose (poc 159 device) Result Comment: No BRAVE per RN: PATIENT TYPE LAB PCSTYP *POC Capillary SAMPLE TYPE Blood *POC GLUCOSE BATTERY Collected: 07/23/2018 Status: F Source: [facility] 8:03 AM [facility] REPOSITORY TYPE CODE TESTS RESULT OUT OF REFERENCE UNITS RANGE LAB GLUP 70-99 mg/dL High Glucose (poc 149 device) Result Comment: No BRAVE per RN: PATIENT TYPE LAB PCSTYP *POC Capillary SAMPLE TYPE Blood CBC,PLATELET,DIFFERENTIAL - CCL Collected: Status: F Source: [facility] 07/23/2018 5:17 AM [facility] REPOSITORY TYPE CODE TESTS RESULT OUT OF REFERENCE UNITS RANGE LAB WBC 3.99-11.19 K/uL <0.30 WBC Result below Count linearity Result Comment: Called to and read back by RENALDO HILL [id number] [id number] LAB RBC 3.91-5.04 M/uL Low RBC Count [...] CBCDFC, CA, CHM7, IPB, MGO #### [facility] [address] [place] [address] [facility] [address] [place] [address] CALCIUM Collected: 07/23/2018 Status: F Source: [facility] 5:17 AM [facility] REPOSITORY TYPE CODE TESTS RESULT OUT OF REFERENCE UNITS RANGE LAB CA 8.6-10.5 mg/dL Low Calcium 7.8 Performed By: #### CBCDFC, CA, CHM7, IPB, MGO #### [facility] [address] [place] [address] [facility] [address] [place] [address] CHEM 7 Collected: 07/23/2018 Status: F Source: [facility] 5:17 [facility] REPOSITORY TYPE CODE TESTS RESULT [...] >60 mL/min/1.73 Low sqM Est GFR,non 32 Dutch LAB GFRA >60 mL/min/1.73 Low sqM Est GFR, 39 Performed By: #### CBCDFC, CA, CHM7, IPB, MGO #### U [facility] [address] [place] [address] [facility] [address] [place] [address] INORGANIC PHOSPHATE Collected: 07/23/2018 Status: F Source: [facility] 5:17 [facility] REPOSITORY TYPE CODE TESTS RESULT OUT OF REFERENCE UNITS RANGE LAB IP 2.2-4.6 mg/dL Inorg Phosphate 2.9 Performed By: #### CBCDFC, CA, CHM7, IPB, MGO #### [facility] [address] [place] [address] [facility] [address] [place], [place] [address] MAGNESIUM Collected: 07/23/2018 Status: F Source: [facility] 5:17 AM [facility] REPOSITORY TYPE CODE TESTS RESULT OUT OF REFERENCE UNITS RANGE LAB MG 1.6-2.6 mg/dL Magnesium 1.9 Performed By: #### CBCDFC, CA, CHM7, IPB, MGO #### [facility] [address] [place] [address] [facility] [address] [place], [place] [address] *POC GLUCOSE BATTERY Collected: 07/22/2018 Status: F Source: [facility] 11:10 PM [facility] REPOSITORY TYPE CODE TESTS RESULT OUT OF REFERENCE UNITS RANGE LAB GLUP 70-99 mg/dL High Glucose (poc 148 device) Result Comment: No BRAVE per RN: PATIENT TYPE LAB PCSTYP *POC Capillary SAMPLE TYPE Blood XR CHEST PA AND Observed: 07/22/2018 Status: F Source: [facility] LATERAL 6:30 PM [facility] REPOSITORY EXAM: XR CHEST PA AND LATERAL, [...] LEFT 3+ Observed: 07/22/2018 Status: F Source: [facility] VIEWS 6:17 PM [facility] REPOSITORY EXAM: XR FOOT LEFT 3 VIEWS, XR ANKLE LEFT 3+ VIEWS, 07/22/2018 17:52 PM (accession [id number]), 07/22/2018 17:51 PM (accession [id number]) COMPARISON: No prior studies available for comparison. [...] F Source: [facility] V[facility] 6:17 PM [facility] REPOSITORY EXAM: XR FOOT LEFT 3 VIEWS, XR ANKLE LEFT 3+ VIEWS, 07/22/2018 17:52 PM (accession [id number]), 07/22/2018 17:51 PM (accession [id number]) COMPARISON: No prior studies available for comparison. [...] AND FIBULA Observed: 07/22/2018 Status: F Source: [facility] LEFT 6:07 PM [facility] REPOSITORY EXAM: XR TIBIA AND FIBULA LEFT, [...] 2 VIEWS Observed: 07/22/2018 Status: F Source: [facility] 6:06 PM [facility] REPOSITORY EXAM: XR HIP LEFT 2 VIEWS,, [...] W/ MICROSCOPIC-CHRI Collected: 07/22/2018 Status: F Source: [facility] 4:54 PM [facility] REPOSITORY TYPE CODE TESTS RESULT OUT OF RANGE REFERENCE UNITS LAB PROCESS CHECKER Clear Appearance Urine Clear LAB SPGR 1.001-1.035 Specific [place] urine 1.020 LAB UPH 5.0-7.0 pH Urine [...] 2+ Performed By: #### URNJ #### U [facility] [address] [place] [address] [facility] [address] [place], [place] [address] *POC GLUCOSE BATTERY Collected: 07/22/2018 Status: F Source: [facility] 4:48 PM [facility] REPOSITORY TYPE CODE TESTS RESULT OUT OF REFERENCE UNITS RANGE LAB GLUP 70-99 mg/dL High Glucose (poc 133 device) Result Comment: No BRAVE per RN: PATIENT TYPE LAB PCSTYP *POC Capillary SAMPLE TYPE Blood CBC WITH DIFF ENOCH Collected: 07/22/2018 Status: X Source: [facility] 4:26 PM [facility] REPOSITORY TYPE CODE TESTS RESULT OUT OF REFERENCE UNITS RANGE LAB CBCDFJ CBC WITH This DIFF ENOCH result has been cancelled. Performed By: #### CBCDFJ #### [facility] (DEFAULT) [address] [place] [address] LACTATE, BLOOD Collected: 07/22/2018 Status: F Source: [facility] 4:25 PM [facility] REPOSITORY TYPE CODE TESTS RESULT OUT OF RANGE REFERENCE UNITS LAB LACT 0.5-1.6 mmol/L High Lactate, 2.9 Blood Performed By: #### LACT #### [facility] [address] [place] [address] [facility] [address] [place] [address] URINALYSIS W REFLEX Collected: 07/22/2018 Status: F Source: [facility] CULTURE -CHRI 4:25 PM [facility] REPOSITORY TYPE CODE TESTS RESULT OUT OF RANGE REFERENCE UNITS LAB PROCESS CHECKER Clear Appearance Urine Clear LAB SPGR 1.001-1.035 Specific [place] urine 1.020 LAB UGL Negative mg/dL Glucose [...] None Performed By: #### URN1J #### U [facility] [address] [place] [id number] [place] [address] [place] [address] PT*PTT - CHRI Collected: 07/22/2018 Status: F Source: [facility] 4:25 PM [facility] REPOSITORY TYPE CODE TESTS RESULT OUT OF RANGE REFERENCE UNITS LAB PT 11.9-14.2 sec High PT 17.4 LAB INR 0.9-1.1 High INR 1.4 LAB PTT 24.0-34.3 sec PTT 33.7 Performed By: #### CBCDFJ #### [facility], [facility] [address] [place] [address] #### CRP, ESR #### [facility] [address] [place] [id number] [place] [address] [place] [address] CHEM 6 - CHRI Collected: 07/22/2018 Status: F Source: [facility] 4:25 PM [facility] REPOSITORY TYPE CODE TESTS RESULT OUT OF REFERENCE UNITS RANGE LAB BUN 7-22 mg/dL BUN High 43 LAB CREA 0.50-1.20 mg/dL High Creatinine 1.61 LAB NA 133-143 mmol/L Sodium 137 LAB K 3.5-5.0 mmol/L Potassium 3.5 LAB CL 98-108 mmol/L Chloride 107 LAB CO2 22-30 mmol/L Low Carbon Dioxide 21 LAB GFR >60 mL/min/1.73 Low sqM Est GFR,non 32 Dutch LAB GFRA >60 mL/min/1.73 Low sqM Est GFR, 39 LAB GAP 7-17 mmol/L Anion Gap 13 Performed By: #### CBCDFJ #### nEoch [facility], [facility] [address] [place] [address] #### CRP, ESR #### [facility] [address] [place] [address] [place] [address] [place] [address] INORG PHOSPHATE - CHRI Collected: 07/22/2018 Status: F Source: [facility] 4:25 PM [facility] REPOSITORY TYPE CODE TESTS RESULT OUT OF REFERENCE UNITS RANGE LAB IP 2.2-4.6 mg/dL Inorg Phosphate 2.2 Performed By: #### CBCDFJ #### [facility], [facility] [address] [place] [address] #### CRP, ESR #### [facility] [address] [place] [phone] [place] [address] [place] [address] MAGNESIUM - CHRI Collected: 07/22/2018 Status: F Source: [facility] 4:25 PM [facility] REPOSITORY TYPE CODE TESTS RESULT OUT OF REFERENCE UNITS RANGE LAB MG 1.6-2.6 mg/dL Magnesium 2.0 Performed By: #### CBCDFJ #### [facility]ch [facility], [facility] [address] [place] [address] #### CRP, ESR #### U [facility] [address] [place] [address] [facility] [address] [place] [address] CBC WITH DIFF ENOCH Collected: 07/22/2018 Status: F Source: [facility] 4:25 [facility] REPOSITORY TYPE CODE TESTS RESULT [...] RBC Performed By: #### CBCDFJ #### [facility] [address] [place] [address] #### CRP, ESR #### U [facility] [address] [place] [id number] [place] [address] [address] [place] [address] TROPONIN - CHRI Collected: 07/22/2018 Status: F Source: [facility] 4:25 PM [facility] REPOSITORY TYPE CODE TESTS RESULT OUT OF REFERENCE UNITS RANGE LAB TROP <0.11 ng/mL Troponin I 0.02 Performed By: #### CBCDFJ #### [facility] [address] [place] [address] #### CRP, ESR #### U [facility] [address] [place] [address] [facility] [address] [place] [address] C REACTIVE PROTEIN Collected: 07/22/2018 Status: F Source: [facility] 4:25 [facility] REPOSITORY TYPE CODE TESTS RESULT OUT OF REFERENCE UNITS RANGE LAB CRP <10.00 mg/L C High Reactive 31.90 Protein Performed By: #### CBCDFJ #### [facility] [address] [place] [address] #### CRP, ESR #### U [facility] [address] [place] [address] [facility] [address] [place] [address] ESR WESTERGREN Collected: 07/22/2018 Status: F Source: [facility] 4:25 PM [facility] REPOSITORY TYPE CODE TESTS RESULT OUT OF REFERENCE UNITS RANGE LAB ESR <30 mm/hr ESR Westergren 2 Performed By: #### CBCDFJ #### [facility], [facility] [address] [place] [address] #### CRP, ESR #### [facility] [address] [place] [address] [facility] [address] [place] [address] Observed: 07/22/2018 Status: F Source: [facility] BLOOD:ROUTINE II 4:15 PM [facility] REPOSITORY SOURCE: BLOOD, PERIPHERAL: Site not specified RESULT: NO GROWTH DAY 5 OF 5 REPORT STATUS: 07/27/2018 FINAL Performed By: #### FAST2 #### [facility] [address] [place] [address] Blood Cultures processed at: [facility] Observed: 07/22/2018 Status: F Source: [facility] BLOOD: LINE ASSESSMENT 4:00 PM [facility] REPOSITORY SOURCE: LINE, PICC: PURPLE RESULT: NO GROWTH DAY 5 OF 5 REPORT STATUS: 07/27/2018 FINAL Performed By: #### LINE #### [place] [address] Blood Cultures processed at: [facility] Observed: 07/22/2018 Status: F Source: [facility] TYPE AND CROSS 12:25 PM [facility] REPOSITORY ABO/RH(D): O POSITIVE ANTIBODY SCREEN: NEGATIVE UNIT NUMBER: [id number] BLOOD COMPONENT TYPE: Red Cell,Leukoreduced,[id number] STATUS OF UNIT: Issued, Final TRANSFUSION STATUS: OK TO TRANSFUSE CROSSMATCH RESULT: Electronically Compatible Performed By: #### XM #### [facility] [place] [address] Observed: 07/22/2018 Status: F Source: [facility] TRANSFUSE PLATELETS 12:06 PM [facility] REPOSITORY CROSSMATCH EXPIRATION: 07/23/2018 UNIT NUMBER: [id number] BLOOD COMPONENT TYPE: Platelet Pheresis,Leukoreduced,[id number] STATUS OF UNIT: REL FROM ALLOC TRANSFUSION STATUS: OK TO TRANSFUSE UNIT NUMBER: [id number] BLOOD COMPONENT TYPE: Platelet Pheresis,Leukoreduced,[id number] STATUS OF UNIT: Issued, Final TRANSFUSION STATUS: OK TO TRANSFUSE UNIT NUMBER: [id number] BLOOD COMPONENT TYPE: Platelet Pheresis,Leukoreduced,[id number] STATUS OF UNIT: Issued, Final TRANSFUSION STATUS: OK TO TRANSFUSE Performed By: #### TPLT #### [facility] [address] [place] [address] [facility] [address] [place], [place] [address] COMPREHENSIVE METABOLIC Collected: 07/21/2018 Status: F Source: [facility] 9:50 AM [facility] RE[facility] Order Comment: IF CRITICAL CALL [phone] TYPE CODE TESTS RESULT OUT OF RANGE [...] GAP 8 Performed By: #### L500.4050 #### [facility] [place], [address] CBC W/DIFF, AUTOMATED Collected: 07/21/2018 Status: C Source: [facility] 9:50 AM [facility] REPOS[facility] Order Comment: IF CRITICAL CALL [phone] TYPE CODE TESTS RESULT OUT OF RANGE [...] Bill Kenney M.D. 07/21/18 AMENDED REPORT 07/21/18 7269 PATH REV previously reported as: December Performed By: #### L100.0100 #### [facility] [address] [place], [address] *POC GLUCOSE BATTERY Collected: 07/16/2018 Status: F Source: [facility] 1:43 PM [facility] REPOSITORY TYPE CODE TESTS RESULT OUT OF REFERENCE UNITS RANGE LAB GLUP 70-99 mg/dL High Glucose (poc 282 device) Result Comment: No BRAVE per RN: PATIENT TYPE LAB PCSTYP *POC Capillary SAMPLE TYPE Blood *POC GLUCOSE BATTERY Collected: 07/16/2018 Status: F Source: [facility] 10:47 AM [facility] REPOSITORY TYPE CODE TESTS RESULT OUT OF REFERENCE UNITS RANGE LAB GLUP 70-99 mg/dL High Glucose (poc 241 device) Result Comment: No BRAVE per RN: PATIENT TYPE LAB PCSTYP *POC Capillary SAMPLE TYPE Blood *POC GLUCOSE BATTERY Collected: 07/16/2018 Status: F Source: [facility] 10:19 AM [facility] REPOSITORY TYPE CODE TESTS RESULT OUT OF REFERENCE UNITS RANGE LAB GLUP 70-99 mg/dL High Glucose (poc 266 device) Result Comment: No BRAVE per RN: PATIENT TYPE LAB PCSTYP *POC Capillary SAMPLE TYPE Blood *POC GLUCOSE BATTERY Collected: 07/16/2018 Status: F Source: [facility] 6:34 AM [facility] REPOSITORY TYPE CODE TESTS RESULT OUT OF REFERENCE UNITS RANGE LAB GLUP 70-99 mg/dL High Glucose (poc 176 device) Result Comment: No BRAVE per RN: PATIENT TYPE LAB PCSTYP *POC Capillary SAMPLE TYPE Blood CALCIUM Collected: 07/16/2018 Status: F Source: [facility] 4:16 AM [facility] REPOSITORY TYPE CODE TESTS RESULT OUT OF REFERENCE UNITS RANGE LAB CA 8.6-10.5 mg/dL Low Calcium 8.4 Performed By: #### CA, CHM7, HFP, IPB, LDO, MGO, URICB, CBCDFC #### [facility] [id number] [place] [address] [place] [address] CHEM 7 Collected: 07/16/2018 Status: F Source: [facility] 4:16 AM [facility] REPOSITORY TYPE CODE TESTS RESULT [...] >60 mL/min/1.73 Low sqM Est GFR,non 37 Dutch LAB GFRA >60 mL/min/1.73 Low sqM Est GFR, 44 Performed By: #### CA, CHM7, HFP, IPB, LDO, MGO, URICB, CBCDFC #### [facility] [address] [place] [address] HEPATIC FUNCTION Collected: 07/16/2018 Status: F Source: [facility] PANEL 4:16 AM [facility] REPOSITORY TYPE CODE TESTS RESULT [...] HFP, IPB, LDO, MGO, URICB, CBCDFC #### [facility] [address] [facility] [address] [place] [address] INORGANIC PHOSPHATE Collected: 07/16/2018 Status: F Source: [facility] 4:16 AM [facility] REPOSITORY TYPE CODE TESTS RESULT OUT OF REFERENCE UNITS RANGE LAB IP 2.2-4.6 mg/dL Inorg Phosphate 3.3 Performed By: #### CA, CHM7, HFP, IPB, LDO, MGO, URICB, CBCDFC #### [facility] [address] [place] [phone] [place] [address] [place] [address] [phone] LD TOTAL Collected: 07/16/2018 Status: F Source: [facility] 4:16 [facility] REPOSITORY TYPE CODE TESTS RESULT OUT OF RANGE REFERENCE UNITS LAB LD 100-190 U/L High LD Total 283 Performed By: #### CA, CHM7, HFP, IPB, LDO, MGO, URICB, CBCDFC #### [facility] [address] [place] [address] [place] [address]019 MAGNESIUM Collected: 07/16/2018 Status: F Source: [facility] 4:16 [facility] REPOSITORY TYPE CODE TESTS RESULT OUT OF REFERENCE UNITS RANGE LAB MG 1.6-2.6 mg/dL Magnesium 1.9 Performed By: #### CA, CHM7, HFP, IPB, LDO, MGO, URICB, CBCDFC #### [facility] [address] [place] [address] [place] [address] 68825 URIC ACID Collected: 07/16/2018 Status: F Source: [facility] 4:16 [facility] REPOSITORY TYPE CODE TESTS RESULT OUT OF RANGE REFERENCE UNITS LAB URIC 2.8-6.0 mg/dL High Uric Acid 6.3 Performed By: #### CA, CHM7, HFP, IPB, LDO, MGO, URICB, CBCDFC #### [facility] [address] [place] [phone] [place] [address] [place] [address] 02512 CBC,PLATELET,DIFFERENTIAL - CCL Collected: Status: F Source: [facility] 07/16/2018 4:16 AM [facility] REPOSITORY TYPE CODE TESTS RESULT [...] 0.09 Low LAB AMONO 0.22-0.87 K/uL Abs Sutter 0.00 Low LAB AEOS 0.00-0.42 K/uL Abs Eos 0.00 LAB ABASO 0.00-0.15 K/uL Abs Baso 0.00 LAB OVALO OVALOCYTES Present LAB PLTEST PLATELET Automated ESTIMATE platelet count confirmed by manual slide review. Performed By: #### CA, CHM7, HFP, IPB, LDO, MGO, URICB, CBCDFC #### [facility] [address] [place] [address] [place] [address] *POC GLUCOSE BATTERY Collected: 07/15/2018 Status: F Source: [facility] 9:06 PM [facility] REPOSITORY TYPE CODE TESTS RESULT OUT OF REFERENCE UNITS RANGE LAB GLUP 70-99 mg/dL High Glucose (poc 373 device) Result Comment: No BRAVE per RN: PATIENT TYPE LAB PCSTYP *POC Capillary SAMPLE TYPE Blood *POC GLUCOSE BATTERY Collected: 07/15/2018 Status: F Source: [facility] 5:24 PM [facility] REPOSITORY TYPE CODE TESTS RESULT OUT OF REFERENCE UNITS RANGE LAB GLUP 70-99 mg/dL High Glucose (poc 377 device) Result Comment: No BRAVE per RN: PATIENT TYPE LAB PCSTYP *POC Capillary SAMPLE TYPE Blood CALCIUM Collected: 07/15/2018 Status: F Source: [facility] 4:57 PM [facility] REPOSITORY TYPE CODE TESTS RESULT OUT OF REFERENCE UNITS RANGE LAB CA 8.6-10.5 mg/dL Low Calcium 8.2 Performed By: #### CA, CHM7, IPB, LDO, URICB #### [facility] [address] [place] [address] [place] [address] CHEM 7 Collected: 07/15/2018 Status: F Source: [facility] 4:57 PM [facility] REPOSITORY TYPE CODE TESTS RESULT [...] >60 mL/min/1.73 Low sqM Est GFR,non 34 Dutch LAB GFRA >60 mL/min/1.73 Low sqM Est GFR, 41 Performed By: #### CA, CHM7, IPB, LDO, URICB #### [facility] [address] [place] [phone] [place] [address] [place] [address] INORGANIC PHOSPHATE Collected: 07/15/2018 Status: F Source: [facility] 4:57 PM [facility] REPOSITORY TYPE CODE TESTS RESULT OUT OF REFERENCE UNITS RANGE LAB IP 2.2-4.6 mg/dL Inorg Phosphate 3.2 Performed By: #### CA, CHM7, IPB, LDO, URICB #### [facility] [address] [place] [address] [place] [address] 49799 LD TOTAL Collected: 07/15/2018 Status: F Source: [facility] 4:57 PM [facility] REPOSITORY TYPE CODE TESTS RESULT OUT OF RANGE REFERENCE UNITS LAB LD 100-190 U/L High LD Total 294 Performed By: #### CA, CHM7, IPB, LDO, URICB #### [facility] [address] [place] [address] [place] [address] URIC ACID Collected: 07/15/2018 Status: F Source: [facility] 4:57 PM [facility] REPOSITORY TYPE CODE TESTS RESULT OUT OF RANGE REFERENCE UNITS LAB URIC 2.8-6.0 mg/dL Uric Acid 6.0 Performed By: #### CA, CHM7, IPB, LDO, URICB #### [facility] [address] [place] [address] [place] [address] *POC GLUCOSE BATTERY Collected: 07/15/2018 Status: F Source: [facility] 12:33 PM [facility] REPOSITORY TYPE CODE TESTS RESULT OUT OF REFERENCE UNITS RANGE LAB GLUP 70-99 mg/dL High Glucose (poc 384 device) Result Comment: No BRAVE per RN: PATIENT TYPE LAB PCSTYP *POC Capillary SAMPLE TYPE Blood *POC GLUCOSE BATTERY Collected: 07/15/2018 Status: F Source: [facility] 10:15 AM [facility] REPOSITORY TYPE CODE TESTS RESULT OUT OF REFERENCE UNITS RANGE LAB GLUP 70-99 mg/dL High Glucose (poc 305 device) Result Comment: No BRAVE per RN: PATIENT TYPE LAB PCSTYP *POC Capillary SAMPLE TYPE Blood *POC GLUCOSE BATTERY Collected: 07/15/2018 Status: F Source: [facility] 7:58 AM [facility] REPOSITORY TYPE CODE TESTS RESULT OUT OF REFERENCE UNITS RANGE LAB GLUP 70-99 mg/dL High Glucose (poc 263 device) Result Comment: No BRAVE per RN: PATIENT TYPE LAB PCSTYP *POC Capillary SAMPLE TYPE Blood *POC GLUCOSE BATTERY Collected: 07/15/2018 Status: F Source: [facility] 7:19 AM [facility] REPOSITORY TYPE CODE TESTS RESULT OUT OF REFERENCE UNITS RANGE LAB GLUP 70-99 mg/dL High Glucose (poc 248 device) Result Comment: No BRAVE per RN: PATIENT TYPE LAB PCSTYP *POC Capillary SAMPLE TYPE Blood Observed: 07/15/2018 Status: F Source: [facility] TYPE AND CROSS 4:39 AM [facility] REPOSITORY ABO/RH(D): O POSITIVE ANTIBODY SCREEN: NEGATIVE UNIT NUMBER: [id number] BLOOD COMPONENT TYPE: Red Cell,Leukoreduced,[id number] STATUS OF UNIT: Issued, Final TRANSFUSION STATUS: OK TO TRANSFUSE CROSSMATCH RESULT: Electronically Compatible Performed By: #### XM #### [place] [address] CALCIUM Collected: 07/15/2018 Status: F Source: [facility] 4:36 AM [facility] REPOSITORY TYPE CODE TESTS RESULT OUT OF REFERENCE UNITS RANGE LAB CA 8.6-10.5 mg/dL Low Calcium 8.2 Performed By: #### CA, CHM7, HFP, IPB, LDO, MGO, URICB, CBCDFC #### [place] [address] CHEM 7 Collected: 07/15/2018 Status: F Source: [facility] 4:36 AM [facility] REPOSITORY TYPE CODE TESTS RESULT [...] >60 mL/min/1.73 Low sqM Est GFR,non 38 Dutch LAB GFRA >60 mL/min/1.73 Low sqM Est GFR, 46 Performed By: #### CA, CHM7, HFP, IPB, LDO, MGO, URICB, CBCDFC #### [facility] [address] [place] [address] [place] [address] HEPATIC FUNCTION Collected: 07/15/2018 Status: F Source: [facility] 4:36 AM [facility] REPOSITORY TYPE CODE TESTS RESULT [...] IPB, LDO, MGO, URICB, CBCDFC #### [facility] [address] [place] [address] [place] [address] 98252 INORGANIC PHOSPHATE Collected: 07/15/2018 Status: F Source: [facility] 4:36 AM [facility] REPOSITORY TYPE CODE TESTS RESULT OUT OF REFERENCE UNITS RANGE LAB IP 2.2-4.6 mg/dL Inorg Phosphate 3.4 Performed By: #### CA, CHM7, HFP, IPB, LDO, MGO, URICB, CBCDFC #### [facility] [address] [place] [phone] [place] [address] [address] [place] [address] 96635 LD TOTAL Collected: 07/15/2018 Status: F Source: [facility] 4:36 AM [facility] REPOSITORY TYPE CODE TESTS RESULT OUT OF RANGE REFERENCE UNITS LAB LD 100-190 U/L High LD Total 264 Performed By: #### CA, CHM7, HFP, IPB, LDO, MGO, URICB, CBCDFC #### [facility] [address] [place] [address] [facility] [address] [place] [address] 19111 MAGNESIUM Collected: 07/15/2018 Status: F Source: [facility] 4:36 AM [facility] REPOSITORY TYPE CODE TESTS RESULT OUT OF REFERENCE UNITS RANGE LAB MG 1.6-2.6 mg/dL Magnesium 2.0 Performed By: #### CA, CHM7, HFP, IPB, LDO, MGO, URICB, CBCDFC #### [facility] [address] [place] [phone] [place] [address] [place] [address] 99069 URIC ACID Collected: 07/15/2018 Status: F Source: [facility] 4:36 AM [facility] REPOSITORY TYPE CODE TESTS RESULT OUT OF RANGE REFERENCE UNITS LAB URIC 2.8-6.0 mg/dL High Uric Acid 6.2 Performed By: #### CA, CHM7, HFP, IPB, LDO, MGO, URICB, CBCDFC #### [facility] [address] [place] [phone] [place] [address] [address] [place] [address] 81528 CBC,PLATELET,DIFFERENTIAL - CCL Collected: Status: F Source: [facility] 07/15/2018 4:36 AM [facility] REPOSITORY TYPE CODE TESTS RESULT [...] 0.00 Low LAB AMONO 0.22-0.87 K/uL Abs Sutter 0.00 Low LAB AEOS 0.00-0.42 K/uL Abs Eos 0.00 LAB ABASO 0.00-0.15 K/uL Abs Baso 0.00 LAB OVALO OVALOCYTES Present LAB POLYCH POLYCHROMASIA 1+ LAB PLTEST PLATELET ESTIMATE Automated platelet count confirmed by manual slide review. Performed By: #### CA, CHM7, HFP, IPB, LDO, MGO, URICB, CBCDFC #### [facility] [address] [place] [address] [place] [address] *POC GLUCOSE BATTERY Collected: 07/14/2018 Status: F Source: [facility] 11:46 PM [facility] REPOSITORY TYPE CODE TESTS RESULT OUT OF REFERENCE UNITS RANGE LAB GLUP 70-99 mg/dL High Glucose (poc 301 device) Result Comment: No BRAVE per RN: PATIENT TYPE LAB PCSTYP *POC Capillary SAMPLE TYPE Blood *POC GLUCOSE BATTERY Collected: 07/14/2018 Status: F Source: [facility] 8:59 PM [facility] REPOSITORY TYPE CODE TESTS RESULT OUT OF REFERENCE UNITS RANGE LAB GLUP 70-99 mg/dL High Glucose (poc 361 device) Result Comment: No BRAVE per RN: PATIENT TYPE LAB PCSTYP *POC Capillary SAMPLE TYPE Blood *POC GLUCOSE BATTERY Collected: 07/14/2018 Status: F Source: [facility] 5:57 PM [facility] REPOSITORY TYPE CODE TESTS RESULT OUT OF REFERENCE UNITS RANGE LAB GLUP 70-99 mg/dL High Glucose (poc 337 device) Result Comment: No BRAVE per RN: PATIENT TYPE LAB PCSTYP *POC Capillary SAMPLE TYPE Blood CALCIUM Collected: 07/14/2018 Status: F Source: [facility] 5:48 PM [facility] REPOSITORY TYPE CODE TESTS RESULT OUT OF REFERENCE UNITS RANGE LAB CA 8.6-10.5 mg/dL Low Calcium 8.0 Performed By: #### CA, CHM7, IPB, LDO, URICB #### [facility] [address] [place] [phone] [place] [address] [place] [address] 50154 CHEM 7 Collected: 07/14/2018 Status: F Source: [facility] 5:48 PM [facility] REPOSITORY TYPE CODE TESTS RESULT [...] >60 mL/min/1.73 Low sqM Est GFR,non 36 Dutch LAB GFRA >60 mL/min/1.73 Low sqM Est GFR, 43 Performed By: #### CA, CHM7, IPB, LDO, URICB #### [facility] [address] [place] [phone] [place] [address] [address] [place] [address] 76832 INORGANIC PHOSPHATE Collected: 07/14/2018 Status: F Source: [facility] 5:48 PM [facility] REPOSITORY TYPE CODE TESTS RESULT OUT OF REFERENCE UNITS RANGE LAB IP 2.2-4.6 mg/dL Inorg Phosphate 3.2 Performed By: #### CA, CHM7, IPB, LDO, URICB #### [facility] [address] [place] [phone] [facility] [address] [place] [address] 38706 LD TOTAL Collected: 07/14/2018 Status: F Source: [facility] 5:48 PM [facility] REPOSITORY TYPE CODE TESTS RESULT OUT OF RANGE REFERENCE UNITS LAB LD 100-190 U/L High LD Total 331 Performed By: #### CA, CHM7, IPB, LDO, URICB #### [facility] [address] [place] [phone] [place] [address] [place] [address] 57003 URIC ACID Collected: 07/14/2018 Status: F Source: [facility] 5:48 PM [facility] REPOSITORY TYPE CODE TESTS RESULT OUT OF RANGE REFERENCE UNITS LAB URIC 2.8-6.0 mg/dL High Uric Acid 6.2 Performed By: #### CA, CHM7, IPB, LDO, URICB #### [facility] [address] [place] [phone] [place] [address] [place] [address] 92894 XR FLUORO LUMBAR Observed: 07/14/2018 Status: F Source: [facility] PUNCTURE WITH 4:19 PM [facility] REPOSITORY EXAM: IR XR FLUORO LUMBAR [...] ELET COUNT Collected: 07/14/2018 Status: F Source: [facility] 1:07 PM [facility] REPOSITORY TYPE CODE TESTS RESULT OUT OF REFERENCE UNITS RANGE LAB PLT 150-393 K/uL Low Platelet Count 56 LAB MPV 8.5-12.2 fL Mean Platelet 11.0 Volume Performed By: #### PLAT #### [facility] [address] [place] [address] *POC GLUCOSE BATTERY Collected: 07/14/2018 Status: F Source: [facility] 11:31 AM [facility] REPOSITORY TYPE CODE TESTS RESULT OUT OF REFERENCE UNITS RANGE LAB GLUP 70-99 mg/dL High Glucose (poc 278 device) Result Comment: No BRAVE per RN: PATIENT TYPE LAB PCSTYP *POC Capillary SAMPLE TYPE Blood *POC GLUCOSE BATTERY Collected: 07/14/2018 Status: F Source: [facility] 10:34 AM [facility] REPOSITORY TYPE CODE TESTS RESULT OUT OF REFERENCE UNITS RANGE LAB GLUP 70-99 mg/dL High Glucose (poc 268 device) Result Comment: No BRAVE per RN: PATIENT TYPE LAB PCSTYP *POC Capillary SAMPLE TYPE Blood *POC GLUCOSE BATTERY Collected: 07/14/2018 Status: F Source: [facility] 8:21 AM [facility] REPOSITORY TYPE CODE TESTS RESULT OUT OF REFERENCE UNITS RANGE LAB GLUP 70-99 mg/dL High Glucose (poc 237 device) Result Comment: No BRAVE per RN: PATIENT TYPE LAB PCSTYP *POC Capillary SAMPLE TYPE Blood Observed: 07/14/2018 Status: F Source: [facility] TRANSFUSE PLATELETS 7:19 AM [facility] REPOSITORY CROSSMATCH EXPIRATION: 07/15/2018 UNIT NUMBER: [id number] BLOOD COMPONENT TYPE: Platelet Pheresis,Leukoreduced,[id number] STATUS OF UNIT: Issued, Final TRANSFUSION STATUS: OK TO TRANSFUSE Performed By: #### TPLT #### [facility] [address] [place] [address] [place] [address] CSF PROT & GLUC Collected: 07/14/2018 Status: F Source: [facility] 7:14 [facility] REPOSITORY TYPE CODE TESTS RESULT OUT OF REFERENCE UNITS RANGE LAB CFG 40-70 mg/dL High CSF Glucose 135 LAB CFP 15-45 mg/dL CSF Protein 45 Performed By: #### CFPG, CSFLDB, GIPP #### [facility] [address] [place] [address] [place] [address] 04468 CSF FLUID BATTERY Collected: 07/14/2018 Status: F Source: [facility] 7:14 [facility] REPOSITORY TYPE CODE TESTS RESULT [...] By: #### CFPG, CSFLDB, GIPP #### [facility] [address] [place] [address] IMMUNOPHENOTYPING, Collected: Status: F Source: [facility] FLUID/TISSUE 07/14/2018 7:14 AM [facility] REPOSITORY TYPE CODE TESTS RESULT OUT OF REFERENCE UNITS RANGE LAB ICINT3 Immunophenotyping FL SEE NOTES Result Comment: (NOTE) IMMUNOPHENOTYPING DIAGNOSIS PATIENT NAME: KIM DILLON : 1955 ACCN#: [id number] REVIEWED BY: Neo Jorge M.D. [id number] SAMPLE TYPE: Cerebral Spinal Fluid LABORATORY INTERPRETATION: [...] determined The Flow Cytometry Laboratory at [facility]. It has not been cleared or approved by the FDA. This laboratory is certified under the Clinical Laboratory Improvement Amendments (CLIA) as qualified to perform high complexity clinical laboratory testing. This test is used for clinical purposes. It should not be regarded as investigational or for research. The [facility] Flow Cytometry Laboratory lower limit of CLL MRD detection is 0.1% of the gated lymphocytes. Performed By: #### CFPG, CSFLDB, GIPP #### [facility] [address] [place] [address] CYTOLOGY- NON-LEGAL ACTIVITY ADJUDICATOR Observed: 07/14/2018 Status: F Source: [facility] 7:14 AM [facility] REPOSITORY Cytology Report Patient Name: KIM DILLON Med. Rec. #: [id number] Submitting Physician: KAREN BRIGGS ---Clinical History:--- - 63-year-old female with history of diffuse large B-cell lymphoma ---Source of Specimen(s):--- A: Cerebrospinal Fluid Cytologic Diagnosis CEREBROSPINAL FLUID (CYTOLOGY): - No Malignant Cells Are Identified. - Abundant Monocytes. suar02/[id number]:07/16/2018 ---Electronically Signed Out By Sergey Howe MD--- Waybill Clerk: JL Mitchlel(ASCP) ---Procedures/Addenda--- Performed By: #### NONGN #### [place] [address] PT/INR BATTERY Collected: 07/14/2018 Status: F Source: [facility] 6:42 AM [facility] REPOSITORY TYPE CODE TESTS RESULT OUT OF RANGE REFERENCE UNITS LAB PT 11.9-14.2 sec High PT 17.3 LAB INR 0.9-1.1 High INR 1.4 Performed By: #### PTI #### [facility] [place] [address] *POC GLUCOSE BATTERY Collected: 07/14/2018 Status: F Source: [facility] 6:31 AM [facility] REPOSITORY TYPE CODE TESTS RESULT OUT OF REFERENCE UNITS RANGE LAB GLUP 70-99 mg/dL High Glucose (poc 222 device) Result Comment: No BRAVE per RN: PATIENT TYPE LAB PCSTYP *POC Capillary SAMPLE TYPE Blood CBC,PLATELET,DIFFERENTIAL - CCL Collected: Status: F Source: [facility] 07/14/2018 4:19 AM [facility] REPOSITORY TYPE CODE TESTS RESULT [...] 0.09 Low LAB AMONO 0.22-0.87 K/uL Abs Sutter 0.46 LAB AEOS 0.00-0.42 K/uL Abs Eos <0.04 LAB ABASO 0.00-0.15 K/uL Abs Baso <0.04 Performed By: #### CBCDFC, CA, CHM7, HFP, IPB, LDO, MGO, URICB #### [facility] [address] [place] [phone] [place] [address] [address] [place], [place] [address] CALCIUM Collected: 07/14/2018 Status: F Source: [facility] 4:19 AM [facility] REPOSITORY TYPE CODE TESTS RESULT OUT OF REFERENCE UNITS RANGE LAB CA 8.6-10.5 mg/dL Low Calcium 7.9 Performed By: #### CBCDFC, CA, CHM7, HFP, IPB, LDO, MGO, URICB #### [facility] [address] [place] [address] [facility] [address] [place] [address] CHEM 7 Collected: 07/14/2018 Status: F Source: [facility] 4:19 AM [facility] REPOSITORY TYPE CODE TESTS RESULT [...] >60 mL/min/1.73 Low sqM Est GFR,non 34 Dutch LAB GFRA >60 mL/min/1.73 Low sqM Est GFR, 41 Performed By: #### CBCDFC, CA, CHM7, HFP, IPB, LDO, MGO, URICB #### [facility] [address] [place] [phone] [facility] [address] [place] [address] HEPATIC FUNCTION Collected: 07/14/2018 Status: F Source: [facility] PANEL 4:19 AM [facility] REPOSITORY TYPE CODE TESTS RESULT [...] CHM7, HFP, IPB, LDO, MGO, URICB #### [facility] [address] [place] [address] [facility] [address] [place] [address] 74574 INORGANIC PHOSPHATE Collected: 07/14/2018 Status: F Source: [facility] 4:19 AM [facility] REPOSITORY TYPE CODE TESTS RESULT OUT OF REFERENCE UNITS RANGE LAB IP 2.2-4.6 mg/dL Inorg Phosphate 3.5 Performed By: #### CBCDFC, CA, CHM7, HFP, IPB, LDO, MGO, URICB #### [facility] [address] [place] [address] [place] [address] LD TOTAL Collected: 07/14/2018 Status: F Source: [facility] 4:19 AM [facility] REPOSITORY TYPE CODE TESTS RESULT OUT OF RANGE REFERENCE UNITS LAB LD 100-190 U/L High LD Total 285 Performed By: #### CBCDFC, CA, CHM7, HFP, IPB, LDO, MGO, URICB #### [facility] [address] [place] [address] [place] [address] [phone] MAGNESIUM Collected: 07/14/2018 Status: F Source: [facility] 4:19 AM [facility] REPOSITORY TYPE CODE TESTS RESULT OUT OF REFERENCE UNITS RANGE LAB MG 1.6-2.6 mg/dL Magnesium 2.0 Performed By: #### CBCDFC, CA, CHM7, HFP, IPB, LDO, MGO, URICB #### [facility] [address] [place] [id number] [place] [address] [address] [place] [id number] URIC ACID Collected: 07/14/2018 Status: F Source: [facility] 4:19 AM [facility] REPOSITORY TYPE CODE TESTS RESULT OUT OF RANGE REFERENCE UNITS LAB URIC 2.8-6.0 mg/dL High Uric Acid 6.2 Performed By: #### CBCDFC, CA, CHM7, HFP, IPB, LDO, MGO, URICB #### [facility] [address] [place] [phone] [place] [address] [address] [place] [address] AMMONIA Collected: 07/14/2018 Status: F Source: [facility] 4:19 AM [facility] REPOSITORY TYPE CODE TESTS RESULT OUT OF REFERENCE UNITS RANGE LAB NH3 6-47 umol/L Ammonia 44 Performed By: #### NH3B #### [facility] [address] [place] [address] [place] [address] *POC GLUCOSE BATTERY Collected: 07/14/2018 Status: F Source: [facility] 1:34 AM [facility] REPOSITORY TYPE CODE TESTS RESULT OUT OF REFERENCE UNITS RANGE LAB GLUP 70-99 mg/dL High Glucose (poc 307 device) Result Comment: Notified RNread back No BRAVE per RN: PATIENT TYPE LAB PCSTYP *POC Capillary SAMPLE TYPE Blood *POC GLUCOSE BATTERY Collected: 07/14/2018 Status: F Source: [facility] 12:24 AM [facility] REPOSITORY TYPE CODE TESTS RESULT OUT OF REFERENCE UNITS RANGE LAB GLUP 70-99 mg/dL High Glucose (poc 328 device) Result Comment: No BRAVE per RN: PATIENT TYPE LAB PCSTYP *POC Capillary SAMPLE TYPE Blood *POC GLUCOSE BATTERY Collected: 07/13/2018 Status: F Source: [facility] 9:50 PM [facility] REPOSITORY TYPE CODE TESTS RESULT OUT OF REFERENCE UNITS RANGE LAB GLUP 70-99 mg/dL High Glucose (poc 332 device) Result Comment: Notified RNread back No BRAVE per RN: PATIENT TYPE LAB PCSTYP *POC Capillary SAMPLE TYPE Blood CALCIUM Collected: 07/13/2018 Status: F Source: [facility] 6:35 PM [facility] REPOSITORY TYPE CODE TESTS RESULT OUT OF REFERENCE UNITS RANGE LAB CA 8.6-10.5 mg/dL Low Calcium 7.9 Performed By: #### CA, CHM7, IPB, LDO, URICB #### [facility] [address] [place] [id number] [place] [address] [place] [address] CHEM 7 Collected: 07/13/2018 Status: F Source: [facility] 6:35 PM [facility] REPOSITORY TYPE CODE TESTS RESULT [...] >60 mL/min/1.73 Low sqM Est GFR,non 32 Dutch LAB GFRA >60 mL/min/1.73 Low sqM Est GFR, 39 Performed By: #### CA, CHM7, IPB, LDO, URICB #### [facility] [address] [place] [address] [place] [address] INORGANIC PHOSPHATE Collected: 07/13/2018 Status: F Source: [facility] 6:35 PM [facility] REPOSITORY TYPE CODE TESTS RESULT OUT OF REFERENCE UNITS RANGE LAB IP 2.2-4.6 mg/dL Inorg Phosphate 3.8 Performed By: #### CA, CHM7, IPB, LDO, URICB #### [facility] [address] [place] [address] [place] [address] 24105 LD TOTAL Collected: 07/13/2018 Status: F Source: [facility] 6:35 PM [facility] REPOSITORY TYPE CODE TESTS RESULT OUT OF RANGE REFERENCE UNITS LAB LD 100-190 U/L High LD Total 325 Performed By: #### CA, CHM7, IPB, LDO, URICB #### [facility] [address] [place] [address] [place] [address] 28183 URIC ACID Collected: 07/13/2018 Status: F Source: [facility] 6:35 PM [facility] REPOSITORY TYPE CODE TESTS RESULT OUT OF RANGE REFERENCE UNITS LAB URIC 2.8-6.0 mg/dL Uric Acid 6.0 Performed By: #### CA, CHM7, IPB, LDO, URICB #### [facility] [address] [place] [id number] [place] [address] [place] [address] *POC GLUCOSE BATTERY Collected: 07/13/2018 Status: F Source: [facility] 4:39 PM [facility] REPOSITORY TYPE CODE TESTS RESULT OUT OF REFERENCE UNITS RANGE LAB GLUP 70-99 mg/dL High Glucose (poc 209 device) Result Comment: No BRAVE per RN: PATIENT TYPE LAB PCSTYP *POC Arterial SAMPLE TYPE PT*PTT Collected: 07/13/2018 Status: F Source: [facility] 1:51 PM [facility] REPOSITORY TYPE CODE TESTS RESULT OUT OF RANGE REFERENCE UNITS LAB PT 11.9-14.2 sec High PT 17.1 LAB INR 0.9-1.1 High INR 1.4 LAB PTT 24.0-34.3 sec PTT 28.2 Performed By: #### PTPTT #### [facility] [address] [place] [address] [place] [address] *POC GLUCOSE BATTERY Collected: 07/13/2018 Status: F Source: [facility] 11:32 AM [facility] REPOSITORY TYPE CODE TESTS RESULT OUT OF REFERENCE UNITS RANGE LAB GLUP 70-99 mg/dL High Glucose (poc 244 device) Result Comment: No BRAVE per RN: PATIENT TYPE LAB PCSTYP *POC Capillary SAMPLE TYPE Blood IMMUNOPHENOTYPING, Collected: Status: X Source: [facility] FLUID/TISSUE 07/13/2018 9:55 AM [facility] REPOSITORY TYPE CODE TESTS RESULT OUT OF RANGE REFERENCE UNITS LAB GIPP This result Immunophenot has been yping, cancelled. fluid/tissue Performed By: #### GIPP #### [facility] (DEFAULT) [address] [place] [address] *POC GLUCOSE BATTERY Collected: 07/13/2018 Status: F Source: [facility] 9:29 AM [facility] REPOSITORY TYPE CODE TESTS RESULT OUT OF REFERENCE UNITS RANGE LAB GLUP 70-99 mg/dL High Glucose (poc 181 device) Result Comment: No BRAVE per RN: PATIENT TYPE LAB PCSTYP *POC Capillary SAMPLE TYPE Blood Observed: 07/13/2018 Status: F Source: [facility] TRANSFUSE FFP 7:35 AM [facility] REPOSITORY CROSSMATCH EXPIRATION: 07/14/2018 UNIT NUMBER: [id number] BLOOD COMPONENT TYPE: Thawed [id number] STATUS OF UNIT: REL FROM [facility] TRANSFUSION STATUS: OK TO TRANSFUSE UNIT NUMBER: [id number] BLOOD COMPONENT TYPE: Thawed [id number] STATUS OF UNIT: Issued, Final TRANSFUSION STATUS: OK TO TRANSFUSE Performed By: #### TFFP #### [facility] [address] [place] [address] *POC GLUCOSE BATTERY Collected: 07/13/2018 Status: F Source: [facility] 7:17 AM [facility] REPOSITORY TYPE CODE TESTS RESULT OUT OF REFERENCE UNITS RANGE LAB GLUP 70-99 mg/dL High Glucose (poc 177 device) Result Comment: No BRAVE per RN: PATIENT TYPE LAB PCSTYP *POC Capillary SAMPLE TYPE Blood *POC GLUCOSE BATTERY Collected: 07/13/2018 Status: F Source: [facility] 6:53 AM [facility] REPOSITORY TYPE CODE TESTS RESULT OUT OF REFERENCE UNITS RANGE LAB GLUP 70-99 mg/dL High Glucose (poc 174 device) Result Comment: Notified RNread back No BRAVE per RN: PATIENT TYPE LAB PCSTYP *POC Capillary SAMPLE TYPE Blood CBC,PLATELET,DIFFERENTIAL - CCL Collected: Status: F Source: [facility] 07/13/2018 3:32 AM [facility] REPOSITORY TYPE CODE TESTS RESULT [...] 0.17 Low LAB AMONO 0.22-0.87 K/uL Abs [facility]utter 0.26 LAB AEOS 0.00-0.42 K/uL Abs Eos <0.04 LAB ABASO 0.00-0.15 K/uL Abs Baso <0.04 Performed By: #### CBCDFC, CA, CHM7, HFP, IPB, LDO, MGO, URICB, PTPTT #### [facility] [address] [place] [address] [place] [address] CALCIUM Collected: 07/13/2018 Status: F Source: [facility] 3:32 [facility] REPOSITORY TYPE CODE TESTS RESULT OUT OF REFERENCE UNITS RANGE LAB CA 8.6-10.5 mg/dL Low Calcium 7.8 Performed By: #### CBCDFC, CA, CHM7, HFP, IPB, LDO, MGO, URICB, PTPTT #### [facility] [address] [place] [address] [place] [address] CHEM 7 Collected: 07/13/2018 Status: F Source: [facility] 3:32 [facility] REPOSITORY TYPE CODE TESTS RESULT [...] >60 mL/min/1.73 Low sqM Est GFR,non 30 Dutch LAB GFRA >60 mL/min/1.73 Low sqM Est GFR, 36 Performed By: #### CBCDFC, CA, CHM7, HFP, IPB, LDO, MGO, URICB, PTPTT #### [facility] [address] [address] HEPATIC FUNCTION Collected: 07/13/2018 Status: F Source: [facility] 3:32 AM [facility] REPOSITORY TYPE CODE TESTS RESULT [...] IPB, LDO, MGO, URICB, PTPTT #### [facility] [phone] [place] [address] INORGANIC PHOSPHATE Collected: 07/13/2018 Status: F Source: [facility] 3:32 AM [facility] REPOSITORY TYPE CODE TESTS RESULT OUT OF REFERENCE UNITS RANGE LAB IP 2.2-4.6 mg/dL Inorg Phosphate 4.1 Performed By: #### CBCDFC, CA, CHM7, HFP, IPB, LDO, MGO, URICB, PTPTT #### [facility] [address] [place] [address] [facility] [address] [place] [address] 04017 LD TOTAL Collected: 07/13/2018 Status: F Source: [facility] 3:32 AM [facility] REPOSITORY TYPE CODE TESTS RESULT OUT OF RANGE REFERENCE UNITS LAB LD 100-190 U/L High LD Total 305 Performed By: #### CBCDFC, CA, CHM7, HFP, IPB, LDO, MGO, URICB, PTPTT #### [facility] [address] [place] [phone] [place] [address] [place] [address] MAGNESIUM Collected: 07/13/2018 Status: F Source: [facility] 3:32 [facility] REPOSITORY TYPE CODE TESTS RESULT OUT OF REFERENCE UNITS RANGE LAB MG 1.6-2.6 mg/dL Magnesium 1.8 Performed By: #### CBCDFC, CA, CHM7, HFP, IPB, LDO, MGO, URICB, PTPTT #### [facility] [address] [place] [id number] [place] [address] [place] [address]11 URIC ACID Collected: 07/13/2018 Status: F Source: [facility] 3:32 [facility] REPOSITORY TYPE CODE TESTS RESULT OUT OF RANGE REFERENCE UNITS LAB URIC 2.8-6.0 mg/dL High Uric Acid 6.3 Performed By: #### CBCDFC, CA, CHM7, HFP, IPB, LDO, MGO, URICB, PTPTT #### [facility] [address] [place] [phone] [place] [address] [place] [address] PT*PTT Collected: 07/13/2018 Status: F Source: [facility] 3:32 AM [facility] REPOSITORY TYPE CODE TESTS RESULT OUT OF RANGE REFERENCE UNITS LAB PT 11.9-14.2 sec High PT 17.7 LAB INR 0.9-1.1 High INR 1.5 LAB PTT 24.0-34.3 sec PTT 30.5 Performed By: #### CBCDFC, CA, CHM7, HFP, IPB, LDO, MGO, URICB, PTPTT #### [facility] [address] [place] [phone] [place] [address] [address] [place] [address] AMMONIA Collected: 07/13/2018 Status: F Source: [facility] 3:32 AM [facility] REPOSITORY TYPE CODE TESTS RESULT OUT OF REFERENCE UNITS RANGE LAB NH3 6-47 umol/L High Ammonia 61 Performed By: #### NH3B #### [facility] [address] [place] [address] [place] [address] *POC GLUCOSE BATTERY Collected: 07/12/2018 Status: F Source: [facility] 9:05 PM [facility] REPOSITORY TYPE CODE TESTS RESULT OUT OF REFERENCE UNITS RANGE LAB GLUP 70-99 mg/dL High Glucose (poc 253 device) Result Comment: Notified RNread back No BRAVE per RN: PATIENT TYPE LAB PCSTYP *POC Capillary SAMPLE TYPE Blood CALCIUM Collected: 07/12/2018 Status: F Source: [facility] 5:27 PM [facility] REPOSITORY TYPE CODE TESTS RESULT OUT OF REFERENCE UNITS RANGE LAB CA 8.6-10.5 mg/dL Low Calcium 7.6 Performed By: #### CA, CHM7, IPB, LDO, URICB #### [facility] [address] [place] [address] [place] [address] 6[address] CHEM 7 Collected: 07/12/2018 Status: F Source: [facility] 5:27 PM [facility] REPOSITORY TYPE CODE TESTS RESULT [...] >60 mL/min/1.73 Low sqM Est GFR,non 35 Dutch LAB GFRA >60 mL/min/1.73 Low sqM Est GFR, 43 Performed By: #### CA, CHM7, IPB, LDO, URICB #### [facility] [address] [place] [phone] [place] [address] [place] [address] 265[address] INORGANIC PHOSPHATE Collected: 07/12/2018 Status: F Source: [facility] 5:27 PM [facility] REPOSITORY TYPE CODE TESTS RESULT OUT OF REFERENCE UNITS RANGE LAB IP 2.2-4.6 mg/dL Inorg Phosphate 3.5 Performed By: #### CA, CHM7, IPB, LDO, URICB #### [facility] [address] [place] [address] [place] [address] LD TOTAL Collected: 07/12/2018 Status: F Source: [facility] 5:27 PM [facility] REPOSITORY TYPE CODE TESTS RESULT OUT OF RANGE REFERENCE UNITS LAB LD 100-190 U/L High LD Total 310 Performed By: #### CA, CHM7, IPB, LDO, URICB #### [facility] [address] [place] [address] [place] [address] [id number] URIC ACID Collected: 07/12/2018 Status: F Source: [facility] 5:27 PM [facility] REPOSITORY TYPE CODE TESTS RESULT OUT OF RANGE REFERENCE UNITS LAB URIC 2.8-6.0 mg/dL Uric Acid 5.7 Performed By: #### CA, CHM7, IPB, LDO, URICB #### [facility] [address] [place] [phone] [place] [address] [address] [place] [address] *POC GLUCOSE BATTERY Collected: 07/12/2018 Status: F Source: [facility] 4:59 PM [facility] REPOSITORY TYPE CODE TESTS RESULT OUT OF REFERENCE UNITS RANGE LAB GLUP 70-99 mg/dL High Glucose (poc 331 device) Result Comment: No BRAVE per RN: PATIENT TYPE LAB PCSTYP *POC Capillary SAMPLE TYPE Blood Observed: 07/12/2018 Status: F Source: [facility] TYPE AND CROSS 1:40 PM [facility] REPOSITORY ABO/RH(D): O POSITIVE ANTIBODY SCREEN: NEGATIVE UNIT NUMBER: [id number] BLOOD COMPONENT TYPE: Red Cell,Leukoreduced,[id number] STATUS OF UNIT: Issued, Final TRANSFUSION STATUS: OK TO TRANSFUSE CROSSMATCH RESULT: Electronically Compatible UNIT NUMBER: [id number] BLOOD COMPONENT TYPE: Red Cell,Leukoreduced,[id number] STATUS OF UNIT: Issued, Final TRANSFUSION STATUS: OK TO TRANSFUSE CROSSMATCH RESULT: Electronically Compatible Performed By: #### XM #### [place] [address] [place] [address] *POC GLUCOSE BATTERY Collected: 07/12/2018 Status: F Source: [facility] 11:42 AM [facility] REPOSITORY TYPE CODE TESTS RESULT OUT OF REFERENCE UNITS RANGE LAB GLUP 70-99 mg/dL High Glucose (poc 316 device) Result Comment: No BRAVE per RN: PATIENT TYPE LAB PCSTYP *POC Capillary SAMPLE TYPE Blood *POC GLUCOSE BATTERY Collected: 07/12/2018 Status: F Source: [facility] 7:24 AM [facility] REPOSITORY TYPE CODE TESTS RESULT OUT OF REFERENCE UNITS RANGE LAB GLUP 70-99 mg/dL High Glucose (poc 285 device) Result Comment: No BRAVE per RN: PATIENT TYPE LAB PCSTYP *POC Capillary SAMPLE TYPE Blood AMMONIA Collected: 07/12/2018 Status: F Source: [facility] 5:17 AM [facility] REPOSITORY TYPE CODE TESTS RESULT OUT OF REFERENCE UNITS RANGE LAB NH3 6-47 umol/L High Ammonia 54 Performed By: #### NH3B #### [place] [address] CALCIUM Collected: 07/12/2018 Status: F Source: [facility] 5:17 AM [facility] REPOSITORY TYPE CODE TESTS RESULT OUT OF REFERENCE UNITS RANGE LAB CA 8.6-10.5 mg/dL Low Calcium 7.4 Performed By: #### CA, CHM7, HFP, IPB, LDO, MGO, URICB, CBCDFC #### [facility] [phone] [place] [address] [address] CHEM 7 Collected: 07/12/2018 Status: F Source: [facility] 5:17 AM [facility] REPOSITORY TYPE CODE TESTS RESULT [...] >60 mL/min/1.73 Low sqM Est GFR,non 45 Dutch LAB GFRA >60 mL/min/1.73 Low sqM Est GFR, 54 Performed By: #### CA, CHM7, HFP, IPB, LDO, MGO, URICB, CBCDFC #### [facility] [address] [place] [address] HEPATIC FUNCTION Collected: 07/12/2018 Status: F Source: [facility] PANEL 5:17 AM [facility] REPOSITORY TYPE CODE TESTS RESULT [...] HFP, IPB, LDO, MGO, URICB, CBCDFC #### [facility] [address] [facility] [address] [place] [address] INORGANIC PHOSPHATE Collected: 07/12/2018 Status: F Source: [facility] 5:17 AM [facility] REPOSITORY TYPE CODE TESTS RESULT OUT OF REFERENCE UNITS RANGE LAB IP 2.2-4.6 mg/dL Inorg Phosphate 2.8 Performed By: #### CA, CHM7, HFP, IPB, LDO, MGO, URICB, CBCDFC #### [facility] [address] [place] [address] [place] [address] LD TOTAL Collected: 07/12/2018 Status: F Source: [facility] 5:17 AM [facility] REPOSITORY TYPE CODE TESTS RESULT OUT OF RANGE REFERENCE UNITS LAB LD 100-190 U/L High LD Total 288 Performed By: #### CA, CHM7, HFP, IPB, LDO, MGO, URICB, CBCDFC #### [facility] [address] [place] [address] [address] MAGNESIUM Collected: 07/12/2018 Status: F Source: [facility] 5:17 [facility] REPOSITORY TYPE CODE TESTS RESULT OUT OF REFERENCE UNITS RANGE LAB MG 1.6-2.6 mg/dL Magnesium 1.7 Performed By: #### CA, CHM7, HFP, IPB, LDO, MGO, URICB, CBCDFC #### [facility] [address] [place] [address] [place] [address] URIC ACID Collected: 07/12/2018 Status: F Source: [facility] 5:17 [facility] REPOSITORY TYPE CODE TESTS RESULT OUT OF RANGE REFERENCE UNITS LAB URIC 2.8-6.0 mg/dL Uric Acid 5.9 Performed By: #### CA, CHM7, HFP, IPB, LDO, MGO, URICB, CBCDFC #### [facility] [address] [place] [phone] [place] [address] [address] CBC,PLATELET,DIFFERENTIAL - CCL Collected: Status: F Source: [facility] 07/12/2018 5:17 AM [facility] REPOSITORY TYPE CODE TESTS RESULT [...] 0.03 Low LAB AMONO 0.22-0.87 K/uL Abs [facility] 0.00 Low LAB AEOS 0.00-0.42 K/uL Abs Eos 0.00 LAB ABASO 0.00-0.15 K/uL Abs Baso 0.00 LAB POLYCH POLYCHROMASIA 1+ LAB TEARDR TEARDROP CELLS Present LAB PLTEST PLATELET ESTIMATE Automated platelet count confirmed by manual slide review. Performed By: #### CA, CHM7, HFP, IPB, LDO, MGO, URICB, CBCDFC #### [facility] [address] [place] [address] *POC GLUCOSE BATTERY Collected: 07/11/2018 Status: F Source: [facility] 9:12 PM [facility] REPOSITORY TYPE CODE TESTS RESULT OUT OF REFERENCE UNITS RANGE LAB GLUP 70-99 mg/dL High Glucose (poc 269 device) Result Comment: Notified RNread back No BRAVE per RN: PATIENT TYPE LAB PCSTYP *POC Capillary SAMPLE TYPE Blood *POC GLUCOSE BATTERY Collected: 07/11/2018 Status: F Source: [facility] 5:28 PM [facility] REPOSITORY TYPE CODE TESTS RESULT OUT OF REFERENCE UNITS RANGE LAB GLUP 70-99 mg/dL High Glucose (poc 144 device) Result Comment: No BRAVE per RN: PATIENT TYPE LAB PCSTYP *POC Capillary SAMPLE TYPE Blood CALCIUM Collected: 07/11/2018 Status: F Source: [facility] 4:40 PM [facility] REPOSITORY TYPE CODE TESTS RESULT OUT OF REFERENCE UNITS RANGE LAB CA 8.6-10.5 mg/dL Low Calcium 7.5 Performed By: #### CA, CHM7, IPB, LDO, URICB #### [facility] [address] [place] [address] CHEM 7 Collected: 07/11/2018 Status: F Source: [facility] 4:40 PM [facility] REPOSITORY TYPE CODE TESTS RESULT [...] >60 mL/min/1.73 Low sqM Est GFR,non 39 Dutch LAB GFRA >60 mL/min/1.73 Low sqM Est GFR, 47 Performed By: #### CA, CHM7, IPB, LDO, URICB #### [facility] [id number] [place] [address] [place] [address] INORGANIC PHOSPHATE Collected: 07/11/2018 Status: F Source: [facility] 4:40 PM [facility] REPOSITORY TYPE CODE TESTS RESULT OUT OF REFERENCE UNITS RANGE LAB IP 2.2-4.6 mg/dL Inorg Phosphate 2.3 Performed By: #### CA, CHM7, IPB, LDO, URICB #### [facility] [address] [place] [address] [place] [address] LD TOTAL Collected: 07/11/2018 Status: F Source: [facility] 4:40 PM [facility] REPOSITORY TYPE CODE TESTS RESULT OUT OF RANGE REFERENCE UNITS LAB LD 100-190 U/L High LD Total 295 Performed By: #### CA, CHM7, IPB, LDO, URICB #### [facility] [address] [place] [address] [place] [address] URIC ACID Collected: 07/11/2018 Status: F Source: [facility] 4:40 PM [facility] REPOSITORY TYPE CODE TESTS RESULT OUT OF RANGE REFERENCE UNITS LAB URIC 2.8-6.0 mg/dL High Uric Acid 6.3 Performed By: #### CA, CHM7, IPB, LDO, URICB #### [facility] [address] [place] [address] [place] [address] *POC GLUCOSE BATTERY Collected: 07/11/2018 Status: F Source: [facility] 12:01 PM [facility] REPOSITORY TYPE CODE TESTS RESULT OUT OF REFERENCE UNITS RANGE LAB GLUP 70-99 mg/dL High Glucose (poc 206 device) Result Comment: No BRAVE per RN: PATIENT TYPE LAB PCSTYP *POC Capillary SAMPLE TYPE Blood *POC GLUCOSE BATTERY Collected: 07/11/2018 Status: F Source: [facility] 7:32 AM [facility] REPOSITORY TYPE CODE TESTS RESULT OUT OF REFERENCE UNITS RANGE LAB GLUP 70-99 mg/dL High Glucose (poc 107 device) Result Comment: No BRAVE per RN: PATIENT TYPE LAB PCSTYP *POC Capillary SAMPLE TYPE Blood CBC,PLATELET,DIFFERENTIAL - CCL Collected: Status: F Source: [facility] 07/11/2018 4:22 AM [facility] REPOSITORY TYPE CODE TESTS RESULT [...] 0.99 Low LAB AMONO 0.22-0.87 K/uL Abs [place]utter 0.40 LAB AEOS 0.00-0.42 K/uL Abs Eos 0.23 LAB ABASO 0.00-0.15 K/uL Abs Baso <0.04 Performed By: #### CBCDFC, CA, CHM7, HFP, IPB, LDO, MGO, URICB #### [facility] [address] [place] [address] [place] [address] CALCIUM Collected: 07/11/2018 Status: F Source: [facility] 4:22 AM [facility] REPOSITORY TYPE CODE TESTS RESULT OUT OF REFERENCE UNITS RANGE LAB CA 8.6-10.5 mg/dL Low Calcium 7.9 Performed By: #### CBCDFC, CA, CHM7, HFP, IPB, LDO, MGO, URICB #### [facility] [address] [place] [phone] [place] [address] [place] [address] CHEM 7 Collected: 07/11/2018 Status: F Source: [facility] 4:22 AM [facility] REPOSITORY TYPE CODE TESTS RESULT [...] >60 mL/min/1.73 Low sqM Est GFR,non 33 Dutch LAB GFRA >60 mL/min/1.73 Low sqM Est GFR, 40 Performed By: #### CBCDFC, CA, CHM7, HFP, IPB, LDO, MGO, URICB #### [facility] [address] [place] [address] [place] [address] HEPATIC FUNCTION Collected: 07/11/2018 Status: F Source: [facility] PANEL 4:22 AM [facility] REPOSITORY TYPE CODE TESTS RESULT [...] CHM7, HFP, IPB, LDO, MGO, URICB #### [facility] [address] [place] [phone] [place] [address] [place] [address] INORGANIC PHOSPHATE Collected: 07/11/2018 Status: F Source: [facility] 4:22 AM [facility] REPOSITORY TYPE CODE TESTS RESULT OUT OF REFERENCE UNITS RANGE LAB IP 2.2-4.6 mg/dL Inorg Phosphate 2.4 Performed By: #### CBCDFC, CA, CHM7, HFP, IPB, LDO, MGO, URICB #### [facility] [address] [place] [address] [address] [place] [address] LD TOTAL Collected: 07/11/2018 Status: F Source: [facility] 4:22 [facility] REPOSITORY TYPE CODE TESTS RESULT OUT OF RANGE REFERENCE UNITS LAB LD 100-190 U/L High LD Total 302 Performed By: #### CBCDFC, CA, CHM7, HFP, IPB, LDO, MGO, URICB #### [facility] [address] [place] [address] [place] [address] MAGNESIUM Collected: 07/11/2018 Status: F Source: [facility] 4:22 [facility] REPOSITORY TYPE CODE TESTS RESULT OUT OF REFERENCE UNITS RANGE LAB MG 1.6-2.6 mg/dL Magnesium 1.8 Performed By: #### CBCDFC, CA, CHM7, HFP, IPB, LDO, MGO, URICB #### [facility] [address] [place] [id number] [place] [address] [place], [place] [id number] URIC ACID Collected: 07/11/2018 Status: F Source: [facility] 4:22 [facility] REPOSITORY TYPE CODE TESTS RESULT OUT OF RANGE REFERENCE UNITS LAB URIC 2.8-6.0 mg/dL High Uric Acid 7.0 Performed By: #### CBCDFC, CA, CHM7, HFP, IPB, LDO, MGO, URICB #### [facility] [address] [place] [address] [place] [address] [facility] [address] [place], [place] [address] AMMONIA Collected: 07/11/2018 Status: F Source: [facility] 4:22 AM [facility] REPOSITORY TYPE CODE TESTS RESULT OUT OF REFERENCE UNITS RANGE LAB NH3 6-47 umol/L Ammonia 42 Performed By: #### NH3B #### [facility] [address] [place] [address] [facility] [address] [place], [place] [address] *POC GLUCOSE BATTERY Collected: 07/10/2018 Status: F Source: [facility] 9:22 PM [facility] REPOSITORY TYPE CODE TESTS RESULT OUT OF REFERENCE UNITS RANGE LAB GLUP 70-99 mg/dL High Glucose (poc 144 device) Result Comment: No BRAVE per RN: PATIENT TYPE LAB PCSTYP *POC Capillary SAMPLE TYPE Blood *POC GLUCOSE BATTERY Collected: 07/10/2018 Status: F Source: [facility] 8:04 PM [facility] REPOSITORY TYPE CODE TESTS RESULT OUT OF REFERENCE UNITS RANGE LAB GLUP 70-99 mg/dL High Glucose (poc 182 device) Result Comment: No BRAVE per RN: PATIENT TYPE LAB PCSTYP *POC Capillary SAMPLE TYPE Blood *POC GLUCOSE BATTERY Collected: 07/10/2018 Status: F Source: [facility] 5:34 PM [facility] REPOSITORY TYPE CODE TESTS RESULT OUT OF REFERENCE UNITS RANGE LAB GLUP 70-99 mg/dL High Glucose (poc 170 device) Result Comment: No BRAVE per RN: PATIENT TYPE LAB PCSTYP *POC Capillary SAMPLE TYPE Blood *POC GLUCOSE BATTERY Collected: 07/10/2018 Status: F Source: [facility] 11:22 AM [facility] REPOSITORY TYPE CODE TESTS RESULT OUT OF REFERENCE UNITS RANGE LAB GLUP 70-99 mg/dL High Glucose (poc 159 device) Result Comment: No BRAVE per RN: PATIENT TYPE LAB PCSTYP *POC Capillary SAMPLE TYPE Blood *POC GLUCOSE BATTERY Collected: 07/10/2018 Status: F Source: [facility] 10:00 AM [facility] REPOSITORY TYPE CODE TESTS RESULT OUT OF REFERENCE UNITS RANGE LAB GLUP 70-99 mg/dL High Glucose (poc 170 device) Result Comment: No BRAVE per RN: PATIENT TYPE LAB PCSTYP *POC Capillary SAMPLE TYPE Blood *POC GLUCOSE BATTERY Collected: 07/10/2018 Status: F Source: [facility] 7:39 AM [facility] REPOSITORY TYPE CODE TESTS RESULT OUT OF REFERENCE UNITS RANGE LAB GLUP 70-99 mg/dL High Glucose (poc 115 device) Result Comment: No BRAVE per RN: PATIENT TYPE LAB PCSTYP *POC Capillary SAMPLE TYPE Blood *POC GLUCOSE BATTERY Collected: 07/10/2018 Status: F Source: [facility] 7:19 AM [facility] REPOSITORY TYPE CODE TESTS RESULT OUT OF REFERENCE UNITS RANGE LAB GLUP 70-99 mg/dL High Glucose (poc 104 device) Result Comment: No BRAVE per RN: PATIENT TYPE LAB PCSTYP *POC Capillary SAMPLE TYPE Blood CBC,PLATELET,DIFFERENTIAL - CCL Collected: Status: F Source: [facility] 07/10/2018 12:05 [facility] REPOSITORY TYPE CODE TESTS RESULT [...] 0.84 Low LAB AMONO 0.22-0.87 K/uL Abs Sutter 0.41 LAB AEOS 0.00-0.42 K/uL Abs Eos 0.23 LAB ABASO 0.00-0.15 K/uL Abs Baso <0.04 Performed By: #### CBCDFC, CA, CHM7, HFP, IPB, LDO, MGO, URICB #### [facility] [address] [place] [address] [address] [place] [address] CALCIUM Collected: 07/10/2018 Status: F Source: [facility] 12:05 AM [facility] REPOSITORY TYPE CODE TESTS RESULT OUT OF REFERENCE UNITS RANGE LAB CA 8.6-10.5 mg/dL Low Calcium 7.9 Performed By: #### CBCDFC, CA, CHM7, HFP, IPB, LDO, MGO, URICB #### [place] [address] CHEM 7 Collected: 07/10/2018 Status: F Source: [facility] 12:05 AM [facility] REPOSITORY TYPE CODE TESTS RESULT [...] >60 mL/min/1.73 Low sqM Est GFR,non 31 Dutch LAB GFRA >60 mL/min/1.73 Low sqM Est GFR, 38 Performed By: #### CBCDFC, CA, CHM7, HFP, IPB, LDO, MGO, URICB #### [facility] [address] [place] [address] HEPATIC FUNCTION Collected: 07/10/2018 Status: F Source: [facility] 12:05 AM [facility] REPOSITORY TYPE CODE TESTS RESULT [...] CHM7, HFP, IPB, LDO, MGO, URICB #### [facility] [address] [place] [address] INORGANIC PHOSPHATE Collected: 07/10/2018 Status: F Source: [facility] 12:05 [facility] REPOSITORY TYPE CODE TESTS RESULT OUT OF REFERENCE UNITS RANGE LAB IP 2.2-4.6 mg/dL Inorg Phosphate 2.3 Performed By: #### CBCDFC, CA, CHM7, HFP, IPB, LDO, MGO, URICB #### [facility] [address] [place] [address] [address] LD TOTAL Collected: 07/10/2018 Status: F Source: [facility] 12:05 AM [facility] REPOSITORY TYPE CODE TESTS RESULT OUT OF RANGE REFERENCE UNITS LAB LD 100-190 U/L High LD Total 259 Performed By: #### CBCDFC, CA, CHM7, HFP, IPB, LDO, MGO, URICB #### [facility] [address] [place] [address] [address] MAGNESIUM Collected: 07/10/2018 Status: F Source: [facility] 12:05 AM [facility] REPOSITORY TYPE CODE TESTS RESULT OUT OF REFERENCE UNITS RANGE LAB MG 1.6-2.6 mg/dL Magnesium 1.7 Performed By: #### CBCDFC, CA, CHM7, HFP, IPB, LDO, MGO, URICB #### [facility] [address] [place] [id number] [place] [address] [place] [address] URIC ACID Collected: 07/10/2018 Status: F Source: [facility] 12:05 AM [facility] REPOSITORY TYPE CODE TESTS RESULT OUT OF RANGE REFERENCE UNITS LAB URIC 2.8-6.0 mg/dL High Uric Acid 7.1 Performed By: #### CBCDFC, CA, CHM7, HFP, IPB, LDO, MGO, URICB #### [facility] [address] [place] [address] [place] [address] AMMONIA Collected: 07/10/2018 Status: F Source: [facility] 12:05 AM [facility] REPOSITORY TYPE CODE TESTS RESULT OUT OF REFERENCE UNITS RANGE LAB NH3 6-47 umol/L High Ammonia 59 Performed By: #### NH3B #### [facility] [address] [place] [id number] [place] [address] [place] [address] *POC GLUCOSE BATTERY Collected: 07/09/2018 Status: F Source: [facility] 5:56 PM [facility] REPOSITORY TYPE CODE TESTS RESULT OUT OF REFERENCE UNITS RANGE LAB GLUP 70-99 mg/dL High Glucose (poc 152 device) Result Comment: Notified RNread back No BRAVE per RN: PATIENT TYPE LAB PCSTYP *POC Capillary SAMPLE TYPE Blood *POC GLUCOSE BATTERY Collected: 07/09/2018 Status: F Source: [facility] 5:16 PM [facility] REPOSITORY TYPE CODE TESTS RESULT OUT OF REFERENCE UNITS RANGE LAB GLUP 70-99 mg/dL High Glucose (poc 158 device) Result Comment: No BRAVE per RN: PATIENT TYPE LAB PCSTYP *POC Capillary SAMPLE TYPE Blood *POC GLUCOSE BATTERY Collected: 07/09/2018 Status: F Source: [facility] 2:47 PM [facility] REPOSITORY TYPE CODE TESTS RESULT OUT OF REFERENCE UNITS RANGE LAB GLUP 70-99 mg/dL High Glucose (poc 178 device) Result Comment: No BRAVE per RN: PATIENT TYPE LAB PCSTYP *POC Capillary SAMPLE TYPE Blood AMMONIA Collected: 07/09/2018 Status: F Source: [facility] 1:56 PM [facility] REPOSITORY TYPE CODE TESTS RESULT OUT OF REFERENCE UNITS RANGE LAB NH3 6-47 umol/L High Ammonia 66 Performed By: #### NH3B #### [facility] [address] [place] [address] [facility] [address] [place] [address] *POC GLUCOSE BATTERY Collected: 07/09/2018 Status: F Source: [facility] 11:31 AM [facility] REPOSITORY TYPE CODE TESTS RESULT OUT OF REFERENCE UNITS RANGE LAB GLUP 70-99 mg/dL High Glucose (poc 135 device) Result Comment: Notified RNread back No BRAVE per RN: PATIENT TYPE LAB PCSTYP *POC Capillary SAMPLE TYPE Blood *POC GLUCOSE BATTERY Collected: 07/09/2018 Status: F Source: [facility] 7:26 AM [facility] REPOSITORY TYPE CODE TESTS RESULT OUT OF REFERENCE UNITS RANGE LAB GLUP 70-99 mg/dL High Glucose (poc 119 device) Result Comment: Notified RNread back No BRAVE per RN: PATIENT TYPE LAB PCSTYP *POC Capillary SAMPLE TYPE Blood CBC,PLATELET,DIFFERENTIAL - CCL Collected: Status: F Source: [facility] 07/09/2018 4:26 AM [facility] REPOSITORY TYPE CODE TESTS RESULT [...] 0.76 Low LAB AMONO 0.22-0.87 K/uL Abs Sutter 0.40 LAB AEOS 0.00-0.42 K/uL Abs Eos 0.29 LAB ABASO 0.00-0.15 K/uL Abs Baso 0.04 Performed By: #### CBCDFC, CA, CHM7, HFP, IPB, LDO, MGO, URICB #### [facility] [address] [place] [address] CALCIUM Collected: 07/09/2018 Status: F Source: [facility] 4:26 [facility] REPOSITORY TYPE CODE TESTS RESULT OUT OF REFERENCE UNITS RANGE LAB CA 8.6-10.5 mg/dL Low Calcium 7.7 Performed By: #### CBCDFC, CA, CHM7, HFP, IPB, LDO, MGO, URICB #### [facility] [address] [place] [address] CHEM 7 Collected: 07/09/2018 Status: F Source: [facility] 4:26 [facility] REPOSITORY TYPE CODE TESTS RESULT [...] >60 mL/min/1.73 Low sqM Est GFR,non 30 Dutch LAB GFRA >60 mL/min/1.73 Low sqM Est GFR, 37 Performed By: #### CBCDFC, CA, CHM7, HFP, IPB, LDO, MGO, URICB #### [facility] [address] [place] [address] [place] [address] HEPATIC FUNCTION Collected: 07/09/2018 Status: F Source: [facility] 4:26 AM [facility] REPOSITORY TYPE CODE TESTS RESULT [...] CHM7, HFP, IPB, LDO, MGO, URICB #### [facility] [address] [place] [address] INORGANIC PHOSPHATE Collected: 07/09/2018 Status: F Source: [facility] 4:26 AM [facility] REPOSITORY TYPE CODE TESTS RESULT OUT OF REFERENCE UNITS RANGE LAB IP 2.2-4.6 mg/dL Inorg Phosphate 2.5 Performed By: #### CBCDFC, CA, CHM7, HFP, IPB, LDO, MGO, URICB #### [facility] [address] [place] [address] [address] [place] [address] LD TOTAL Collected: 07/09/2018 Status: F Source: [facility] 4:26 AM [facility] REPOSITORY TYPE CODE TESTS RESULT OUT OF RANGE REFERENCE UNITS LAB LD 100-190 U/L High LD Total 220 Performed By: #### CBCDFC, CA, CHM7, HFP, IPB, LDO, MGO, URICB #### [facility] [address] [place] [id number] [place] [address] [place] [address] MAGNESIUM Collected: 07/09/2018 Status: F Source: [facility] 4:26 AM [facility] REPOSITORY TYPE CODE TESTS RESULT OUT OF REFERENCE UNITS RANGE LAB MG 1.6-2.6 mg/dL Magnesium 1.8 Performed By: #### CBCDFC, CA, CHM7, HFP, IPB, LDO, MGO, URICB #### [facility] [address] [place] [phone] [place] [address] [place] [address] URIC ACID Collected: 07/09/2018 Status: F Source: [facility] 4:26 AM [facility] REPOSITORY TYPE CODE TESTS RESULT OUT OF RANGE REFERENCE UNITS LAB URIC 2.8-6.0 mg/dL High Uric Acid 7.1 Performed By: #### CBCDFC, CA, CHM7, HFP, IPB, LDO, MGO, URICB #### [facility] [address] [place] [id number] [place] [address] [place] [address] *POC GLUCOSE BATTERY Collected: 07/08/2018 Status: F Source: [facility] 9:06 PM [facility] REPOSITORY TYPE CODE TESTS RESULT OUT OF REFERENCE UNITS RANGE LAB GLUP 70-99 mg/dL High Glucose (poc 148 device) Result Comment: No BRAVE per RN: PATIENT TYPE LAB PCSTYP *POC Capillary SAMPLE TYPE Blood *POC GLUCOSE BATTERY Collected: 07/08/2018 Status: F Source: [facility] 6:49 PM [facility] REPOSITORY TYPE CODE TESTS RESULT OUT OF REFERENCE UNITS RANGE LAB GLUP 70-99 mg/dL High Glucose (poc 148 device) Result Comment: Notified RNread back No BRAVE per RN: PATIENT TYPE LAB PCSTYP *POC Capillary SAMPLE TYPE Blood SURGICAL PATHOLOGY Observed: 07/08/2018 Status: F Source: [facility] 3:11 PM [facility] REPOSITORY Surgical Pathology Report Patient Name: KIM DILLON Med. Rec #: [id number] Submitting Physician: AMRIT SHEN --- Clinical History --- NHL ---Final [...] 07/12/2018 12:25:41 Professional Interpretation performed at location: [address] [place] [address] ---MICROSCOPIC:--- BONE MARROW REPORT The following specimens [...] Performed and resulted in a separate report ([id number]). Immunohistochemical stains were performed in addition to [...] developed by and are performed at the [facility] Clinical Laboratory, [address] [place] [address]. All tests reported here, except those addressing [...] with the guidelines of the [employer] for the reporting of cancer specimens. [...] after decalcification. Lab Use Only: Job ID [id number] Gross description by: Jennifer Alba Performed By: #### SURGP #### [facility] [address] [place] [address] [place] [address] PACKAGE 3 Collected: 07/08/2018 Status: F Source: [facility] 2:35 PM [facility] REPOSITORY TYPE CODE TESTS RESULT OUT OF REFERENCE UNITS RANGE LAB BMBXJ BM Biopsy Doctor to - CHRI interpret test LAB BMFEJ BM Iron Doctor to Stain interpret test Performed By: #### P3J #### [facility], [facility] [address] [place] [address] #### BMIPP #### [facility] [address] [place] [address] [place] [address] BM IMMUNOPHENOTYPING Collected: Status: F Source: [facility] 07/08/2018 2:35 PM [facility] REPOSITORY TYPE CODE TESTS RESULT OUT OF REFERENCE UNITS RANGE LAB ICINT1 Immunophenotyping BM SEE NOTES Result Comment: (NOTE) IMMUNOPHENOTYPING DIAGNOSIS PATIENT NAME: KIM DILLON : 1955 ACCN#: [id number] [facility] od: Humberto Hare M.D., Ph.D. [id number] SAMPLE TYPE: Bone Marrow LABORATORY INTERPRETATION: There [...] % are B cells (CD19+) with a [place]:Lambda ratio of 4:2 , 82.8 % are [...] determined The Flow Cytometry Laboratory at [facility]. It has not been cleared or approved by the FDA. This laboratory is certified under the Clinical Laboratory Improvement Amendments (CLIA) as qualified to perform high complexity clinical laboratory testing. This test is used for clinical purposes. It should not be regarded as investigational or for research. The [facility] Flow Cytometry Laboratory lower limit of CLL MRD detection is 0.1% of the gated lymphocytes. Performed By: #### P3J #### Enoch SWANN, [facility] [address] [place] [address] #### BMIPP #### [facility] [address] [place], [place] [id number] [place] [address] [address] [place], [place] [address] CYTOGENETICS Observed: 07/08/2018 Status: F Source: [facility] 2:15 PM [facility] REPOSITORY Cytogenetics Report Patient Name: KIM DILLON Med. Rec #: [id number] Submitting Physician: AMRIT SHEN Clinical History Aggressive [...] Electronically Signed By Purvi Remy, PhD, AB, [facility] 07/24/2018 11:41:57 LABORATORY DATA Band Level: 450 [...] probes (analyte specific reagents, ASRs) developed by [employer] (and/or [employer], [employer]) to interphase (non-dividing) nuclei isolated from peripheral blood/bone marrow. These are specific DNA probes that detect a number of commonly observed aberrations in hematologic malignancies. This test was developed and its performance characteristics determined by the Cytogenetics Lab at [facility]. It has not been cleared or approved [...] FACMG Performed By: #### CYTOG #### [facility] [place] [address] *POC GLUCOSE BATTERY Collected: 07/08/2018 Status: F Source: [facility] 1:46 PM [facility] REPOSITORY TYPE CODE TESTS RESULT OUT OF REFERENCE UNITS RANGE LAB GLUP 70-99 mg/dL High Glucose (poc 107 device) Result Comment: Notified RNread back No BRAVE per RN: PATIENT TYPE LAB PCSTYP *POC Capillary SAMPLE TYPE Blood NUC PET LYMPHOMA Observed: 07/08/2018 Status: F Source: [facility] 1:08 PM [facility] REPOSITORY EXAM: NUC PET LYMPHOMA, 07/08/2018 12:49 [...] GLUCOSE BATTERY Collected: 07/08/2018 Status: F Source: [facility] 10:56 AM [facility] REPOSITORY TYPE CODE TESTS RESULT OUT OF REFERENCE UNITS RANGE LAB GLUP 70-99 mg/dL High Glucose (poc 100 device) Result Comment: No BRAVE per RN: PATIENT TYPE LAB PCSTYP *POC Capillary SAMPLE TYPE Blood BK VIRAL LOAD, Collected: 07/08/2018 Status: F Source: [facility] PLASMA - UHE 8:09 AM [facility] REPOSITORY TYPE CODE TESTS RESULT OUT OF REFERENCE UNITS RANGE LAB BKBPT <500 copies/mL BK Viral <500 Load, plasma Result Comment: This test was performed using a real time PCR assay. The dynamic range for this assay is 500-5,000,000 copies/mL. This test was developed and its performance characteristics determined by The Clinical Microbiology Laboratory at [facility]. It has not been cleared or approved by the FDA. The laboratory is regulated under CLIA as qualified to perform high-complexity testing. This test is used for clinical purposes. It should not be regarded as investigational or for research Performed By: #### BKBP #### [place] [address] *POC GLUCOSE BATTERY Collected: 07/08/2018 Status: F Source: [facility] 7:38 AM [facility] REPOSITORY TYPE CODE TESTS RESULT OUT OF REFERENCE UNITS RANGE LAB GLUP 70-99 mg/dL High Glucose (poc 123 device) Result Comment: Notified RNread back No BRAVE per RN: PATIENT TYPE LAB PCSTYP *POC Capillary SAMPLE TYPE Blood *POC GLUCOSE BATTERY Collected: 07/08/2018 Status: F Source: [facility] 6:30 AM [facility] REPOSITORY TYPE CODE TESTS RESULT OUT OF REFERENCE UNITS RANGE LAB GLUP 70-99 mg/dL High Glucose (poc 127 device) Result Comment: No BRAVE per RN: PATIENT TYPE LAB PCSTYP *POC Capillary SAMPLE TYPE Blood IMMUNOPHENOTYPING, Collected: Status: X Source: [facility] FLUID/TISSUE 07/08/2018 5:35 AM [facility] REPOSITORY TYPE CODE TESTS RESULT OUT OF RANGE REFERENCE UNITS LAB GIPP This result Immunophenot has been yping, cancelled. fluid/tissue Performed By: #### GIPP #### [facility] (DEFAULT) [address] [place] [address] #### PBIPP #### [facility] [address] [place] [address] [facility] [address] [place], [place] [address] IMMUNOPHENOTYPING, BLOOD Collected: Status: F Source: [facility] 07/08/2018 5:35 AM [facility] REPOSITORY TYPE CODE TESTS RESULT OUT OF REFERENCE UNITS RANGE LAB ICINT Immunophenotyping (PBIPP) SEE NOTES Result Comment: (NOTE) IMMUNOPHENOTYPING DIAGNOSIS PATIENT NAME: KIM DILLON : 1955 ACCN#: [id number] REVIEWED BY: Diann Serna M.D., Ph.D. [id number] SAMPLE TYPE: Peripheral Blood LABORATORY INTERPRETATION: There [...] % are B cells (CD19+) with a Point [place]:Lambda ratio of 6:3 , 83.1 % are T cells (CD3+) with a CD4:CD8 ratio of 2.5 and an absolute CD4+/CD3+ count of 425 ABS/mm3 and 5.8 % are NK cells (positive for CD56 and/or CD16 and negative for CD3). MARKER DESCRIPTION LYM REG% ABS/mm3 NORMAL % NML ABS ABSOLUTE LYMPHOCYTE COUNT [id number] CD19+ B CELL 9.8 69 2.0-21.0 20-1008 [...] determined The Flow Cytometry Laboratory at [facility]. It has not been cleared or approved by the FDA. This laboratory is certified under the Clinical Laboratory Improvement Amendments (CLIA) as qualified to perform high complexity clinical laboratory testing. This test is used for clinical purposes. It should not be regarded as investigational or for research. The [facility] Flow Cytometry Laboratory lower limit of CLL MRD detection is 0.1% of the gated lymphocytes. [id number] KIM DILLON Page 1 of 1 Performed By: #### GIPP #### [facility] (DEFAULT) [address] [place] [address] #### PBIPP #### [facility] [address] [place] [address] [facility] [address] [place] [address] CBC,PLATELET,DIFFERENTIAL - CCL Collected: Status: F Source: [facility] 07/08/2018 5:35 AM [facility] REPOSITORY TYPE CODE TESTS RESULT OUT OF REFERENCE UNITS RANGE LAB WBC 3.99-11.19 K/uL WBC Count 4.19 LAB RBC 3.91-5.04 M/uL Low RBC Count 2.53 LAB HGB 11.4-15.2 g/dL Low alert Hemoglobin 6.9 Result Comment: This result has been called to RENALDO ELIAS by [facility] on 07 08 2018 at 0648, and [...] 0.70 Low LAB AMONO 0.22-0.87 K/uL Abs Sutter 0.32 LAB AEOS 0.00-0.42 K/uL Abs Eos 0.19 LAB ABASO 0.00-0.15 K/uL Abs Baso <0.04 Performed By: #### CBCDFC, CHM7, CA, URICB, IPB, MGO, LDO, QIMM, HIV, HEP3B, B2M, SIMFXB, SPEB #### [facility] [place] [address] [place] [address] #### EBVPCR, CMVPCR #### [address] [address] CHEM 7 Collected: 07/08/2018 Status: F Source: [facility] 5:35 AM [facility] REPOSITORY TYPE CODE TESTS RESULT [...] >60 mL/min/1.73 Low sqM Est GFR,non 38 Dutch LAB GFRA >60 mL/min/1.73 Low sqM Est GFR, 46 Performed By: #### CBCDFC, CHM7, CA, URICB, IPB, MGO, LDO, QIMM, HIV, HEP3B, B2M, SIMFXB, SPEB #### [facility] [id number] [place] [address] #### EBVPCR, CMVPCR #### [address] [address] CALCIUM Collected: 07/08/2018 Status: F Source: [facility] 5:35 AM [facility] REPOSITORY TYPE CODE TESTS RESULT OUT OF REFERENCE UNITS RANGE LAB CA 8.6-10.5 mg/dL Low Calcium 7.8 Performed By: #### CBCDFC, CHM7, CA, URICB, IPB, MGO, LDO, QIMM, HIV, HEP3B, B2M, SIMFXB, SPEB #### [facility] [address] [place] [address] #### EBVPCR, CMVPCR #### [place] [address] URIC ACID Collected: 07/08/2018 Status: F Source: [facility] 5:35 AM [facility] REPOSITORY TYPE CODE TESTS RESULT OUT OF RANGE REFERENCE UNITS LAB URIC 2.8-6.0 mg/dL Uric Acid 6.0 Performed By: #### CBCDFC, CHM7, CA, URICB, IPB, MGO, LDO, QIMM, HIV, HEP3B, B2M, SIMFXB, SPEB #### [facility] [address] [place] [address] #### EBVPCR, CMVPCR #### [address] [address] INORGANIC PHOSPHATE Collected: 07/08/2018 Status: F Source: [facility] 5:35 AM [facility] [facility]ENTER REPOSITORY TYPE CODE TESTS RESULT OUT OF REFERENCE UNITS RANGE LAB IP 2.2-4.6 mg/dL Inorg Phosphate 2.7 Performed By: #### CBCDFC, CHM7, CA, URICB, IPB, MGO, LDO, QIMM, HIV, HEP3B, B2M, SIMFXB, SPEB #### [facility] [address] [place] [address] [facility] [address] [address] #### EBVPCR, CMVPCR #### [address] [address] MAGNESIUM Collected: 07/08/2018 Status: F Source: [facility] 5:35 AM [facility] REPOSITORY TYPE CODE TESTS RESULT OUT OF REFERENCE UNITS RANGE LAB MG 1.6-2.6 mg/dL Magnesium 2.0 Performed By: #### CBCDFC, CHM7, CA, URICB, IPB, MGO, LDO, QIMM, HIV, HEP3B, B2M, SIMFXB, SPEB #### [facility] [id number] [place] [address] [address] [place] [address] [address] #### EBVPCR, CMVPCR #### [place] [address] LD TOTAL Collected: 07/08/2018 Status: F Source: [facility] 5:35 AM [facility] REPOSITORY TYPE CODE TESTS RESULT OUT OF RANGE REFERENCE UNITS LAB LD 100-190 U/L High LD Total 213 Performed By: #### CBCDFC, CHM7, CA, URICB, IPB, MGO, LDO, QIMM, HIV, HEP3B, B2M, SIMFXB, SPEB #### [facility] [id number] [place] [address] [address] #### EBVPCR, CMVPCR #### [address] [address] QUANTITATIVE Collected: 07/08/2018 Status: F Source: [facility] IMMUNOGLOBULINS 5:35 AM [facility] REPOSITORY TYPE CODE TESTS RESULT OUT OF RANGE REFERENCE UNITS LAB IGG 600-1560 mg/dL IgG 883 LAB IGA 90-410 mg/dL IgA 345 LAB IGM 30-360 mg/dL IgM 128 Performed By: #### CBCDFC, CHM7, CA, URICB, IPB, MGO, LDO, QIMM, HIV, HEP3B, B2M, SIMFXB, SPEB #### [facility] [address] [place] [address] [facility] [address] [place] [address] #### EBVPCR, CMVPCR #### [address] [address] HIV-1/HIV-2 AB WITH P24 Collected: 07/08/2018 Status: F Source: [facility] ANTIGEN 5:35 AM [facility] REPOSITORY TYPE CODE TESTS RESULT OUT OF REFERENCE UNITS RANGE LAB HIV NONREACTIVE NONREACTIVE HIV-1/HIV-2 AB with p24 Antige Performed By: #### CBCDFC, CHM7, CA, URICB, IPB, MGO, LDO, QIMM, HIV, HEP3B, B2M, SIMFXB, SPEB #### [facility] [address] [place] [id number] [place] [address] [place] [address] #### EBVPCR, CMVPCR #### [address] [address] CHRONIC HEPATITIS B Collected: 07/08/2018 Status: F Source: [facility] PACKAGE 5:35 AM [facility] REPOSITORY TYPE CODE TESTS RESULT OUT OF REFERENCE UNITS RANGE LAB HBSAG Negative Hep B Surface Ag Negative LAB HBSAB Negative Hep B Surface Ab Negative LAB HBCBG Negative Hep B Core Ab,Total Negative (IgG+IgM) LAB HCAB Negative Hepatitis C Negative Antibody Performed By: #### CBCDFC, CHM7, CA, URICB, IPB, MGO, LDO, QIMM, HIV, HEP3B, B2M, SIMFXB, SPEB #### [facility] [address] [place] [address] [facility] [address] [place] [address] #### EBVPCR, CMVPCR #### [place] [address] BETA 2 MICROGLOBULIN Collected: 07/08/2018 Status: F Source: [facility] 5:35 AM [facility] REPOSITORY TYPE CODE TESTS RESULT OUT OF REFERENCE UNITS RANGE LAB B2M 0.60-2.11 mg/L Beta 2 High Microglobulin 6.5 Performed By: #### CBCDFC, CHM7, CA, URICB, IPB, MGO, LDO, QIMM, HIV, HEP3B, B2M, SIMFXB, SPEB #### [address] [address] [place] [address] #### EBVPCR, CMVPCR #### [address] [address] EBV BY PCR, QUANT, Collected: 07/08/2018 Status: F Source: [facility] BLOOD [facility] 5:35 AM [facility] REPOSITORY TYPE CODE TESTS RESULT [...] by The [facility] at [facility]. It has not been cleared or approved by the FDA. The laboratory is regulated under CLIA as qualified to perform high-complexity testing. This test is used for clinical purposes. It should not be regarded as investigational or for research Performed By: #### CBCDFC, CHM7, CA, URICB, IPB, MGO, LDO, QIMM, HIV, HEP3B, B2M, SIMFXB, SPEB #### [place] [address] #### EBVPCR, CMVPCR #### [address] [address] QUANTITATIVE CMV BY PCR Collected: 07/08/2018 Status: F Source: [facility] 5:35 AM [facility] REPOSITORY TYPE CODE TESTS RESULT [...] QIMM, HIV, HEP3B, B2M, SIMFXB, SPEB #### [facility] [address] [address] #### EBVPCR, CMVPCR #### [address] [address] *IMMUNOFIXATION,*SERUM Collected: Status: F Source: [facility] 07/08/2018 5:35 AM [facility] REPOSITORY TYPE CODE TESTS RESULT OUT OF RANGE REFERENCE UNITS LAB MPRO 0 mg/dL High *SERUM 40.5 *MONOCLONAL *PROTEIN Performed By: #### CBCDFC, CHM7, CA, URICB, IPB, MGO, LDO, QIMM, HIV, HEP3B, B2M, SIMFXB, SPEB #### [place] [address] #### EBVPCR, CMVPCR #### [address] [address] PROTEIN ELECTROPHORESIS Collected: 07/08/2018 Status: F Source: [facility] WITH REFLEX 5:35 AM [facility] REPOSITORY TYPE CODE TESTS RESULT [...] HIV, HEP3B, B2M, SIMFXB, SPEB #### [facility] [address] [place] [address] [facility] [address] [place] [address] #### EBVPCR, CMVPCR #### [address] [address] *POC GLUCOSE BATTERY Collected: 07/08/2018 Status: F Source: [facility] 1:28 AM [facility] REPOSITORY TYPE CODE TESTS RESULT OUT OF REFERENCE UNITS RANGE LAB GLUP 70-99 mg/dL High Glucose (poc 208 device) Result Comment: No BRAVE per RN: PATIENT TYPE LAB PCSTYP *POC Capillary SAMPLE TYPE Blood *POC GLUCOSE BATTERY Collected: 07/08/2018 Status: F Source: [facility] 12:45 AM [facility] REPOSITORY TYPE CODE TESTS RESULT OUT OF REFERENCE UNITS RANGE LAB GLUP 70-99 mg/dL High Glucose (poc 234 device) Result Comment: No BRAVE per RN: PATIENT TYPE LAB PCSTYP *POC Capillary SAMPLE TYPE Blood *POC GLUCOSE BATTERY Collected: 07/08/2018 Status: F Source: [facility] 12:02 AM [facility] REPOSITORY TYPE CODE TESTS RESULT OUT OF REFERENCE UNITS RANGE LAB GLUP 70-99 mg/dL High Glucose (poc 248 device) Result Comment: No BRAVE per RN: PATIENT TYPE LAB PCSTYP *POC Capillary SAMPLE TYPE Blood *POC GLUCOSE BATTERY Collected: 07/07/2018 Status: F Source: [facility] 9:33 PM [facility] REPOSITORY TYPE CODE TESTS RESULT OUT OF REFERENCE UNITS RANGE LAB GLUP 70-99 mg/dL High Glucose (poc 123 device) Result Comment: No BRAVE per RN: PATIENT TYPE LAB PCSTYP *POC Capillary SAMPLE TYPE Blood *POC GLUCOSE BATTERY Collected: 07/07/2018 Status: F Source: [facility] 5:50 PM [facility] REPOSITORY TYPE CODE TESTS RESULT OUT OF REFERENCE UNITS RANGE LAB GLUP 70-99 mg/dL Glucose (poc 86 device) Result Comment: No BRAVE per RN: PATIENT TYPE LAB PCSTYP *POC Capillary SAMPLE TYPE Blood *POC GLUCOSE BATTERY Collected: 07/07/2018 Status: F Source: [facility] 4:52 PM [facility] REPOSITORY TYPE CODE TESTS RESULT OUT OF REFERENCE UNITS RANGE LAB GLUP 70-99 mg/dL Glucose (poc 77 device) Result Comment: No BRAVE per RN: PATIENT TYPE LAB PCSTYP *POC Capillary SAMPLE TYPE Blood *POC GLUCOSE BATTERY Collected: 07/07/2018 Status: F Source: [facility] 4:50 PM [facility] REPOSITORY TYPE CODE TESTS RESULT OUT OF REFERENCE UNITS RANGE LAB GLUP 70-99 mg/dL Glucose (poc 75 device) Result Comment: No BRAVE per RN: PATIENT TYPE LAB PCSTYP *POC Capillary SAMPLE TYPE Blood *POC GLUCOSE BATTERY Collected: 07/07/2018 Status: F Source: [facility] 2:36 PM [facility] REPOSITORY TYPE CODE TESTS RESULT OUT OF REFERENCE UNITS RANGE LAB GLUP 70-99 mg/dL Glucose (poc 85 device) Result Comment: No BRAVE per RN: PATIENT TYPE LAB PCSTYP *POC Capillary SAMPLE TYPE Blood *POC GLUCOSE BATTERY Collected: 07/07/2018 Status: F Source: [facility] 11:57 AM [facility] REPOSITORY TYPE CODE TESTS RESULT OUT OF REFERENCE UNITS RANGE LAB GLUP 70-99 mg/dL High Glucose (poc 100 device) Result Comment: No BRAVE per RN: PATIENT TYPE LAB PCSTYP *POC Capillary SAMPLE TYPE Blood *POC GLUCOSE BATTERY Collected: 07/07/2018 Status: F Source: [facility] 8:25 AM [facility] REPOSITORY TYPE CODE TESTS RESULT OUT OF REFERENCE UNITS RANGE LAB GLUP 70-99 mg/dL High Glucose (poc 111 device) Result Comment: No BRAVE per RN: PATIENT TYPE LAB PCSTYP *POC Capillary SAMPLE TYPE Blood Observed: 07/07/2018 Status: F Source: [facility] TRANSFUSE PLATELETS 8:16 AM [facility] REPOSITORY CROSSMATCH EXPIRATION: 07/11/2018 UNIT NUMBER: [id number] BLOOD COMPONENT TYPE: Platelet Pheresis,Leukoreduced,[id number] STATUS OF UNIT: Issued, Final TRANSFUSION STATUS: OK TO TRANSFUSE Performed By: #### TPLT #### [facility] [address] [place] [id number] [place] [address] [place] [address] Observed: 07/07/2018 Status: F Source: [facility] [place] [facility] TYPE AND CROSS 4:00 AM [facility] REPOSITORY ABO/RH(D): O POSITIVE ANTIBODY SCREEN: NEGATIVE UNIT NUMBER: [id number] BLOOD COMPONENT TYPE: Red Cell,Leukoreduced,[id number] STATUS OF UNIT: Issued, Final TRANSFUSION STATUS: OK TO TRANSFUSE CROSSMATCH RESULT: Electronically Compatible Performed By: #### XM #### [facility] [address] [place] [address] HEMOGRAM (CBC AND Collected: 07/07/2018 Status: F Source: [facility] PLATELET) 3:51 AM [facility] REPOSITORY TYPE CODE TESTS RESULT [...] HEMOGC, ESR, CHM6, CRP, MGO, PTI #### [facility] [address] [place] [address] ESR WESTERGREN Collected: 07/07/2018 Status: F Source: [facility] 3:51 AM [facility] REPOSITORY TYPE CODE TESTS RESULT OUT OF REFERENCE UNITS RANGE LAB ESR <30 mm/hr ESR Westergren 3 Performed By: #### HEMOGC, ESR, CHM6, CRP, MGO, PTI #### [facility] [address] [facility] [address] [place] [address] CHEM 6 Collected: 07/07/2018 Status: F Source: [facility] 3:51 AM [facility] REPOSITORY TYPE CODE TESTS RESULT [...] >60 mL/min/1.73 Low sqM Est GFR,non 32 Dutch LAB GFRA >60 mL/min/1.73 Low sqM Est GFR, 39 Performed By: #### HEMOGC, ESR, CHM6, CRP, MGO, PTI #### [facility] [address] [place] [address] [place] [address] C REACTIVE PROTEIN Collected: 07/07/2018 Status: F Source: [facility] 3:51 AM [facility] REPOSITORY TYPE CODE TESTS RESULT OUT OF REFERENCE UNITS RANGE LAB CRP <10.00 mg/L C High Reactive 17.30 Protein Performed By: #### HEMOGC, ESR, CHM6, CRP, MGO, PTI #### [facility] [address] [place] [id number] [place] [address] [place] [address] MAGNESIUM Collected: 07/07/2018 Status: F Source: [facility] 3:51 AM [facility] REPOSITORY TYPE CODE TESTS RESULT OUT OF REFERENCE UNITS RANGE LAB MG 1.6-2.6 mg/dL Magnesium 1.9 Performed By: #### HEMOGC, ESR, CHM6, CRP, MGO, PTI #### [facility] [address] [place] [address] [facility] [address] [place] [address] PT/INR BATTERY Collected: 07/07/2018 Status: F Source: [facility] 3:51 AM [facility] REPOSITORY TYPE CODE TESTS RESULT OUT OF RANGE REFERENCE UNITS LAB PT 11.9-14.2 sec High PT 17.1 LAB INR 0.9-1.1 High INR 1.4 Performed By: #### HEMOGC, ESR, CHM6, CRP, MGO, PTI #### [facility] [address] [place], [place] [address] [place] [address] [address] [place] [address] *POC GLUCOSE BATTERY Collected: 07/06/2018 Status: F Source: [facility] 11:37 PM [facility] REPOSITORY TYPE CODE TESTS RESULT OUT OF REFERENCE UNITS RANGE LAB GLUP 70-99 mg/dL High Glucose (poc 162 device) Result Comment: No BRAVE per RN: PATIENT TYPE LAB PCSTYP *POC Capillary SAMPLE TYPE Blood *POC GLUCOSE BATTERY Collected: 07/06/2018 Status: F Source: [facility] 8:56 PM [facility] REPOSITORY TYPE CODE TESTS RESULT OUT OF REFERENCE UNITS RANGE LAB GLUP 70-99 mg/dL High Glucose (poc 154 device) Result Comment: No BRAVE per RN: PATIENT TYPE LAB PCSTYP *POC Capillary SAMPLE TYPE Blood ECHOCARDIOGRAM Observed: 07/06/2018 Status: F Source: [facility] 6:01 PM [facility] REPOSITORY ? Echo is negative for vegetation [...] GLUCOSE BATTERY Collected: 07/06/2018 Status: F Source: [facility] 5:35 PM [facility] REPOSITORY TYPE CODE TESTS RESULT OUT OF REFERENCE UNITS RANGE LAB GLUP 70-99 mg/dL High Glucose (poc 133 device) Result Comment: No BRAVE per RN: PATIENT TYPE LAB PCSTYP *POC Capillary SAMPLE TYPE Blood *B-NHL*FISH Observed: 07/06/2018 Status: F Source: [facility] (*BCL2*BCL6MYC) - MARA 12:04 PM [facility] REPOSITORY NOT DETECTED NOT DETECTED NOT DETECTED No rearrangements of the BCL2, BCL6 or MYC genes are detected by FISH. The clinical relevance of this result should be interpreted in the context of the tissue morphology and immunophenotyping. Fransico Jackson MD,PhD LIVER MASS, NEEDLE CORE BIOPSY [id number] Result Comment: BLOCK A1 Performed By: #### BHGFI #### [facility] [address] [place] [address] [facility] [address] [place] [address] *POC GLUCOSE BATTERY Collected: 07/06/2018 Status: F Source: [facility] 11:35 AM [facility] REPOSITORY TYPE CODE TESTS RESULT OUT OF REFERENCE UNITS RANGE LAB GLUP 70-99 mg/dL High Glucose (poc 149 device) Result Comment: No BRAVE per RN: PATIENT TYPE LAB PCSTYP *POC Capillary SAMPLE TYPE Blood *POC GLUCOSE BATTERY Collected: 07/06/2018 Status: F Source: [facility] 7:46 AM [facility] REPOSITORY TYPE CODE TESTS RESULT OUT OF REFERENCE UNITS RANGE LAB GLUP 70-99 mg/dL High Glucose (poc 121 device) Result Comment: No BRAVE per RN: PATIENT TYPE LAB PCSTYP *POC Capillary SAMPLE TYPE Blood HEMOGRAM (CBC AND Collected: 07/06/2018 Status: F Source: [facility] PLATELET) 2:53 AM [facility] REPOSITORY TYPE CODE TESTS RESULT [...] Performed By: #### HEMOGC, CHM6, MGO #### [facility] [address] [place] [id number] [place] [address] [place] [address] CHEM 6 Collected: 07/06/2018 Status: F Source: [facility] 2:53 AM [facility] REPOSITORY TYPE CODE TESTS RESULT [...] >60 mL/min/1.73 Low sqM Est GFR,non 32 Dutch LAB GFRA >60 mL/min/1.73 Low sqM Est GFR, 39 Performed By: #### HEMANDREWC, DERRELLM6, MGO #### [facility] [address] [place] [address] [place] [address] MAGNESIUM Collected: 07/06/2018 Status: F Source: [facility] 2:53 [facility] REPOSITORY TYPE CODE TESTS RESULT OUT OF REFERENCE UNITS RANGE LAB MG 1.6-2.6 mg/dL Magnesium 2.0 Performed By: #### HEMOGC, CHM6, MGO #### [facility] [address] [place] [address] [place] [address] BARTONELLA, DNA, PCR Collected: 07/06/2018 Status: F Source: [facility] 2:53 [facility] REPOSITORY TYPE CODE TESTS RESULT OUT OF REFERENCE UNITS RANGE LAB BRSOUR BR Source BLOOD, PERIPHERAL: LAB BARRP See below Bartonella, DNA, PCR Result Comment: (NOTE) TESTS RESULTS--------UNITS--REF. RANGE--- Source WHOLE BLOOD BARTONELLA HENSELAE DNA NOT DETECTED BARTONELLA CAM DNA NOT DETECTED REFERENCE RANGE: NOT DETECTED This test was developed and its analytical performance characteristics have been determined by [facility]. It has not been cleared or approved by FDA. This assay has been validated pursuant to the CLIA regulations and is used for clinical purposes. Results Received 07/10/18 Reference lab accession: [id number] Test performed by [facility], [address] [place] [address] Concrete Block Layer: Nima Alfonso MD Test Reported by [facility], [facility], [address] [place] [address] Colin Fleming M.D., Ph.D., Director of Laboratories , CLIA [id number] Reported by [facility] Lab Performed By: #### YBARRP #### Reference lab information reported with result *POC GLUCOSE BATTERY Collected: 07/05/2018 Status: F Source: [facility] 8:51 PM [facility] REPOSITORY TYPE CODE TESTS RESULT OUT OF REFERENCE UNITS RANGE LAB GLUP 70-99 mg/dL High Glucose (poc 198 device) Result Comment: No BRAVE per RN: PATIENT TYPE LAB PCSTYP *POC Capillary SAMPLE TYPE Blood URIC ACID Collected: 07/05/2018 Status: F Source: [facility] 8:36 PM [facility] REPOSITORY TYPE CODE TESTS RESULT OUT OF RANGE REFERENCE UNITS LAB URIC 2.8-6.0 mg/dL Uric Acid 5.4 Performed By: #### URICB #### [facility] [address] [place] [address] [place] [address] XR ANKLE RIGHT 3+ Observed: 07/05/2018 Status: F Source: [facility] VIEWS 6:10 PM [facility] REPOSITORY EXAM: XR ANKLE RIGHT 3 VIEWS, [...] GLUCOSE BATTERY Collected: 07/05/2018 Status: F Source: [facility] 5:54 PM [facility] REPOSITORY TYPE CODE TESTS RESULT OUT OF REFERENCE UNITS RANGE LAB GLUP 70-99 mg/dL High Glucose (poc 175 device) Result Comment: No BRAVE per RN: PATIENT TYPE LAB PCSTYP *POC Capillary SAMPLE TYPE Blood *POC GLUCOSE BATTERY Collected: 07/05/2018 Status: F Source: [facility] 11:22 AM [facility] REPOSITORY TYPE CODE TESTS RESULT OUT OF REFERENCE UNITS RANGE LAB GLUP 70-99 mg/dL High Glucose (poc 219 device) Result Comment: No BRAVE per RN: PATIENT TYPE LAB PCSTYP *POC Capillary SAMPLE TYPE Blood *POC GLUCOSE BATTERY Collected: 07/05/2018 Status: F Source: [facility] 7:44 AM [facility] REPOSITORY TYPE CODE TESTS RESULT OUT OF REFERENCE UNITS RANGE LAB GLUP 70-99 mg/dL Glucose (poc 98 device) Result Comment: No BRAVE per RN: PATIENT TYPE LAB PCSTYP *POC Capillary SAMPLE TYPE Blood HEMOGRAM (CBC AND Collected: 07/05/2018 Status: F Source: [facility] PLATELET) 2:44 AM [facility] REPOSITORY TYPE CODE TESTS RESULT [...] Performed By: #### HEMPATI, CHM6 #### [facility] [address] [place] [id number] [place] [address] [place] [address] CHEM 6 Collected: 07/05/2018 Status: F Source: [facility] 2:44 AM [facility] REPOSITORY TYPE CODE TESTS RESULT [...] >60 mL/min/1.73 Low sqM Est GFR,non 32 Dutch LAB GFRA >60 mL/min/1.73 Low sqM Est GFR, 39 Performed By: #### HEMPATI, CHM6 #### [facility] [address] [place] [id number] [place] [address] [place] [address] *POC GLUCOSE BATTERY Collected: 07/04/2018 Status: F Source: [facility] 9:13 PM [facility] REPOSITORY TYPE CODE TESTS RESULT OUT OF REFERENCE UNITS RANGE LAB GLUP 70-99 mg/dL High Glucose (poc 241 device) Result Comment: No BRAVE per RN: PATIENT TYPE LAB PCSTYP *POC Capillary SAMPLE TYPE Blood *POC GLUCOSE BATTERY Collected: 07/04/2018 Status: F Source: [facility] 4:17 PM [facility] REPOSITORY TYPE CODE TESTS RESULT OUT OF REFERENCE UNITS RANGE LAB GLUP 70-99 mg/dL High Glucose (poc 193 device) Result Comment: Notified RNread back No BRAVE per RN: PATIENT TYPE LAB PCSTYP *POC Capillary SAMPLE TYPE Blood *POC GLUCOSE BATTERY Collected: 07/04/2018 Status: F Source: [facility] 11:46 AM [facility] REPOSITORY TYPE CODE TESTS RESULT OUT OF REFERENCE UNITS RANGE LAB GLUP 70-99 mg/dL High Glucose (poc 205 device) Result Comment: Notified RNread back No BRAVE per RN: PATIENT TYPE LAB PCSTYP *POC Capillary SAMPLE TYPE Blood *POC GLUCOSE BATTERY Collected: 07/04/2018 Status: F Source: [facility] 7:46 AM [facility] REPOSITORY TYPE CODE TESTS RESULT OUT OF REFERENCE UNITS RANGE LAB GLUP 70-99 mg/dL Glucose (poc 81 device) Result Comment: Notified RNread back No BRAVE per RN: PATIENT TYPE LAB PCSTYP *POC Capillary SAMPLE TYPE Blood HEMOGRAM (CBC AND Collected: 07/04/2018 Status: F Source: [facility] PLATELET) 2:09 AM [facility] REPOSITORY TYPE CODE TESTS RESULT [...] By: #### HEMOGC, CHM6, HFP #### [facility] [address] [place] [address] [place] [address] CHEM 6 Collected: 07/04/2018 Status: F Source: [facility] 2:09 AM [facility] REPOSITORY TYPE CODE TESTS RESULT [...] >60 mL/min/1.73 Low sqM Est GFR,non 35 Dutch LAB GFRA >60 mL/min/1.73 Low sqM Est GFR, 42 Performed By: #### HEMOGC, CHM6, [facility] #### [facility] [address] [place] [address] HEPATIC FUNCTION Collected: 07/04/2018 Status: F Source: [facility] 2:09 AM [facility] REPOSITORY TYPE CODE TESTS RESULT [...] Protein 4.7 Performed By: #### HEMOGC, M6, [facility] #### [place] [address] BARTONELLA, DNA, PCR Collected: 07/04/2018 Status: F Source: [facility] 2:09 AM [facility] REPOSITORY TYPE CODE TESTS RESULT OUT OF REFERENCE UNITS RANGE LAB BRSOUR BR Source BLOOD, PERIPHERAL: LAB BARRP See below Bartonella, DNA, PCR Result Comment: (NOTE) TESTS RESULTS--------UNITS--REF. RANGE--- Source WHOLE BLOOD BARTONELLA HENSELAE DNA NOT DETECTED BARTONELLA CAM DNA NOT DETECTED REFERENCE RANGE: NOT DETECTED This test was developed and its analytical performance characteristics have been determined by [facility]. It has not been cleared or approved by FDA. This assay has been validated pursuant to the CLIA regulations and is used for clinical purposes. Results Received 07/09/18 Reference lab accession: [id number] Test performed by [facility], [address] [place] [address] Concrete Block Layer: Nima Alfonso MD Test Reported by [facility], [facility], [address] [place] [address] Colin Fleming M.D., Ph.D., Director of Laboratories , CLIA [id number] Reported by [facility] Lab Performed By: #### YBARRP #### Reference lab information reported with result *POC GLUCOSE BATTERY Collected: 07/03/2018 Status: F Source: [facility] 9:07 PM [facility] REPOSITORY TYPE CODE TESTS RESULT OUT OF REFERENCE UNITS RANGE LAB GLUP 70-99 mg/dL High Glucose (poc 228 device) Result Comment: No BRAVE per RN: PATIENT TYPE LAB PCSTYP *POC Capillary SAMPLE TYPE Blood HGB & HCT Collected: 07/03/2018 Status: F Source: [facility] 5:41 PM [facility] REPOSITORY TYPE CODE TESTS RESULT OUT OF REFERENCE UNITS RANGE LAB HGB 11.4-15.2 g/dL Low Hemoglobin 9.3 LAB HCT 34.9-44.3 % Low Hematocrit 28.1 Performed By: #### HH #### [facility] [place] [address] [place] [address] [place] [address] *POC GLUCOSE BATTERY Collected: 07/03/2018 Status: F Source: [facility] 4:58 PM [facility] REPOSITORY TYPE CODE TESTS RESULT OUT OF REFERENCE UNITS RANGE LAB GLUP 70-99 mg/dL High Glucose (poc 206 device) Result Comment: No BRAVE per RN: PATIENT TYPE LAB PCSTYP *POC Capillary SAMPLE TYPE Blood US RENAL Observed: 07/03/2018 Status: F Source: [facility] 11:58 AM [facility] REPOSITORY EXAM: US RENAL, 07/03/2018 11:30 AM [...] GLUCOSE BATTERY Collected: 07/03/2018 Status: F Source: [facility] 11:42 AM [facility] REPOSITORY TYPE CODE TESTS RESULT OUT OF REFERENCE UNITS RANGE LAB GLUP 70-99 mg/dL High Glucose (poc 182 device) Result Comment: No BRAVE per RN: PATIENT TYPE LAB PCSTYP *POC Capillary SAMPLE TYPE Blood CREATININE, URINE - Collected: 07/03/2018 Status: F Source: [facility] RANDOM 7:47 AM [facility] REPOSITORY TYPE CODE TESTS RESULT OUT OF RANGE REFERENCE UNITS LAB CREU1 mg/dL 10.00 Creatinine, urine mg/dL Result Comment: The reference range has not been established for random urine specimens. The test result should be integrated into the clinical context for interpretation. Performed By: #### UCRER, ULYTR #### [facility] [address] [place] [address] [place] [address] LYTES (NA,K,CL), URINE Collected: 07/03/2018 Status: F Source: [facility] 7:47 AM [facility] REPOSITORY TYPE CODE TESTS RESULT [...] Performed By: #### UCRER, ULYTR #### [facility] [address] [place] [id number] [place] [address] [address] [place] [address] *POC GLUCOSE BATTERY Collected: 07/03/2018 Status: F Source: [facility] 7:43 AM [facility] REPOSITORY TYPE CODE TESTS RESULT OUT OF REFERENCE UNITS RANGE LAB GLUP 70-99 mg/dL High Glucose (poc 103 device) Result Comment: No BRAVE per RN: PATIENT TYPE LAB PCSTYP *POC Capillary SAMPLE TYPE Blood CBC,PLATELET,DIFFERENTIAL - CCL Collected: Status: F Source: [facility] 07/03/2018 5:51 AM [facility] REPOSITORY TYPE CODE TESTS RESULT [...] 0.88 Low LAB AMONO 0.22-0.87 K/uL Abs Sutter 0.42 LAB AEOS 0.00-0.42 K/uL Abs Eos 0.47 High LAB ABASO 0.00-0.15 K/uL Abs Baso 0.04 Performed By: #### ELIJAH, [facility] #### [facility] [address] [place] [address] [place] [address] CHEM 6 Collected: 07/03/2018 Status: F Source: [facility] 5:51 AM [facility] REPOSITORY TYPE CODE TESTS RESULT [...] >60 mL/min/1.73 Low sqM Est GFR,non 37 Dutch LAB GFRA >60 mL/min/1.73 Low sqM Est GFR, 44 Performed By: #### CBCHIEN, CHM6 #### [facility] [address] [place] [address] [place] [address] HGB & HCT Collected: 07/02/2018 Status: F Source: [facility] 10:14 PM [facility] REPOSITORY TYPE CODE TESTS RESULT OUT OF REFERENCE UNITS RANGE LAB HGB 11.4-15.2 g/dL Low Hemoglobin 8.3 LAB HCT 34.9-44.3 % Low Hematocrit 25.6 Performed By: #### HH #### [facility] [address] [place] [address] [facility] [address] [place] [address] *POC GLUCOSE BATTERY Collected: 07/02/2018 Status: F Source: [facility] 9:34 PM [facility] REPOSITORY TYPE CODE TESTS RESULT OUT OF REFERENCE UNITS RANGE LAB GLUP 70-99 mg/dL High Glucose (poc 136 device) Result Comment: No BRAVE per RN: PATIENT TYPE LAB PCSTYP *POC Capillary SAMPLE TYPE Blood VANCOMYCIN, TROUGH Collected: 07/02/2018 Status: F Source: [facility] 7:39 PM [facility] REPOSITORY TYPE CODE TESTS RESULT OUT OF REFERENCE UNITS RANGE LAB VANCTR 10.0-20.0 mcg/mL 11.0 Vancomycin, Trough Performed By: #### VANCTR #### [facility] [address] [place] [address] [place] [address] *POC GLUCOSE BATTERY Collected: 07/02/2018 Status: F Source: [facility] 4:26 PM [facility] REPOSITORY TYPE CODE TESTS RESULT OUT OF REFERENCE UNITS RANGE LAB GLUP 70-99 mg/dL High Glucose (poc 168 device) Result Comment: No BRAVE per RN: PATIENT TYPE LAB PCSTYP *POC Capillary SAMPLE TYPE Blood HGB & HCT Collected: 07/02/2018 Status: F Source: [facility] 1:57 PM [facility] REPOSITORY TYPE CODE TESTS RESULT OUT OF REFERENCE UNITS RANGE LAB HGB 11.4-15.2 g/dL Low Hemoglobin 9.1 LAB HCT 34.9-44.3 % Low Hematocrit 28.2 Performed By: #### HH #### [facility] [address] [place] [address] [place] [address] *POC GLUCOSE BATTERY Collected: 07/02/2018 Status: F Source: [facility] 10:56 AM [facility] REPOSITORY TYPE CODE TESTS RESULT OUT OF REFERENCE UNITS RANGE LAB GLUP 70-99 mg/dL High Glucose (poc 176 device) Result Comment: Notified RNread back No BRAVE per RN: PATIENT TYPE LAB PCSTYP *POC Capillary SAMPLE TYPE Blood SURG PATH ADD-ON Observed: 07/02/2018 Status: F Source: [facility] ORDER 7:59 AM [facility] REPOSITORY Test will be added on to an earlier surg path specimen Tissue has been submitted to testing laboratory. Performed By: #### SPAOB #### [facility] [address] [place], [place] [id number] [place] [address] [address] [place] [address] *POC GLUCOSE BATTERY Collected: 07/02/2018 Status: F Source: [facility] 7:23 AM [facility] REPOSITORY TYPE CODE TESTS RESULT OUT OF REFERENCE UNITS RANGE LAB GLUP 70-99 mg/dL High Glucose (poc 104 device) Result Comment: No BRAVE per RN: PATIENT TYPE LAB PCSTYP *POC Capillary SAMPLE TYPE Blood CBC,PLATELET,DIFFERENTIAL - CCL Collected: Status: F Source: [facility] 07/02/2018 5:55 AM [facility] REPOSITORY TYPE CODE TESTS RESULT [...] 0.77 Low LAB AMONO 0.22-0.87 K/uL Abs Sutter 0.49 LAB AEOS 0.00-0.42 K/uL Abs Eos 0.44 High LAB ABASO 0.00-0.15 K/uL Abs Baso 0.04 Performed By: #### ELIJAH, M6 #### [facility] [address] [place] [address] #### YCAT #### Reference lab information reported with result CHEM 6 Collected: 07/02/2018 Status: F Source: [facility] 5:55 AM [facility] REPOSITORY TYPE CODE TESTS RESULT [...] >60 mL/min/1.73 Low sqM Est GFR,non 39 Dutch LAB GFRA >60 mL/min/1.73 Low sqM Est GFR, 47 Performed By: #### ELIJAH, [facility] #### [place] [address] #### YCAT #### Reference lab information reported with result BARTONELLA AB PANEL Collected: 07/02/2018 Status: F Source: [facility] 5:55 AM [facility] REPOSITORY TYPE CODE TESTS RESULT OUT OF REFERENCE UNITS RANGE LAB BARTHG <1:128 titer Juventino Henselae <1:128 IgG LAB BARTHM <1:20 titer Juventino Henselae <1:20 IgM LAB BARTQG <1:128 titer Juventino Cam <1:128 IgG LAB BARTQM <1:20 titer Juventino Cam <1:20 IgM Result Comment: (NOTE) ADDITIONAL INFORMATION This test was developed and its performance characteristics determined by [facility] in a manner consistent with CLIA requirements. This test has not been cleared or approved by the U.S. Food and Drug Administration. Test performed by [facility] Dpt of Lab & Pathology [facility] Performed By: #### CBCDFC, CH6 #### [facility] [id number] [place] [address] [address] [place] [address] #### YCAT #### Reference lab information reported with result HGB & HCT Collected: 07/01/2018 Status: F Source: [facility] 11:42 PM [facility] REPOSITORY TYPE CODE TESTS RESULT OUT OF REFERENCE UNITS RANGE LAB HGB 11.4-15.2 g/dL Low Hemoglobin 8.8 LAB HCT 34.9-44.3 % Low Hematocrit 25.8 Performed By: #### HH #### [facility] [address] [place] [id number] [place] [address] [place] [address] *POC GLUCOSE BATTERY Collected: 07/01/2018 Status: F Source: [facility] 8:54 PM [facility] REPOSITORY TYPE CODE TESTS RESULT OUT OF REFERENCE UNITS RANGE LAB GLUP 70-99 mg/dL High Glucose (poc 199 device) Result Comment: No BRAVE per RN: PATIENT TYPE LAB PCSTYP *POC Capillary SAMPLE TYPE Blood *POC GLUCOSE BATTERY Collected: 07/01/2018 Status: F Source: [facility] 5:58 PM [facility] REPOSITORY TYPE CODE TESTS RESULT OUT OF REFERENCE UNITS RANGE LAB GLUP 70-99 mg/dL High Glucose (poc 104 device) Result Comment: No BRAVE per RN: PATIENT TYPE LAB PCSTYP *POC Capillary SAMPLE TYPE Blood HGB & HCT Collected: 07/01/2018 Status: F Source: [facility] 5:49 PM [facility] REPOSITORY TYPE CODE TESTS RESULT OUT OF REFERENCE UNITS RANGE LAB HGB 11.4-15.2 g/dL Low Hemoglobin 8.8 LAB HCT 34.9-44.3 % Low Hematocrit 27.0 Performed By: #### HH #### [facility] [address] [place] [address] [facility] [address] [place] [id number] US HEPATIC MASS Observed: 07/01/2018 Status: F Source: [facility] BIOPSY 5:00 PM [facility] REPOSITORY EXAM: BIR US HEPATIC MASS BIOPSY, [...] Versed, I spent 30 minutes of continuous cfuf-bi-zudx time with the patient. Position: The patient [...] ICAL PATHOLOGY Observed: 07/01/2018 Status: F Source: [facility] 3:59 PM [facility] REPOSITORY Surgical Pathology Report Patient Name: KIM DILLON [facility] Rec #: [id number] Submitting Physician: SUSY KIMBLE --- Clinical History [...] developed by and are performed at the [facility] Clinical Laboratory, [address] [place] [address]. All tests reported here, except those addressing [...] both CD10 and MUM1 expression in DLBCL. WE86-xtbadlkq, MUM1-positive DLBCLs are classified as GCB subtype [...] with the guidelines of the College of [place] [employer] for the reporting of cancer specimens. Lymphoid neoplasms are classified according to NICOLE Shi et al. (Eds.). (2017) WHO Classification of Tumours of Haematopoietic and Lymphoid Tissue (revised 4th edition). Styles, Qi: International Agency for Research on Cancer. mg03/STEFAN:07/06/2018 Electronically Signed By IVONNE Elena 07/06/2018 14:09:55 Professional Interpretation performed at location: [address] [place] [address] ---Addendum Report--- [employer] addendum Date Ordered: 07/06/2018 [...] molecular pathologist to select an area with customer loyalty representative lesional cells, formalin-fixed paraffin-embedded tissue sections from this case were evaluated by interphase fluorescence in situ hybridization (FISH). For each assay, up to 100 interphase cells from different mata were scored by a technologist using computer assisted technology (ProtoStar Image Analysis System) with results confirmed and [...] and performance characteristics were determined by [facility], [facility] , [address] [place] [address] (CLIA: [id number]). Performance characteristics refer to the analytical performance [...] NEEDLE CORE BIOPSY B-NHL FISH case number [id number] B-NHL Material Tested [id number] BLOCK A1 Addendum Date Ordered: 07/07/2018 Status: [...] tests reported here were performed at the [facility], Clinical Laboratory, [address] [place] [address]. On 2017, Lindsey Petersen CNP submitted an order for additional stains/tests Warthin-Starry staining and the tissue block(s) was submitted to the [facility] clinical histology laboratory for additional processing and [...] TE 2 Lab Use Only: Job ID [id number] Gross description by: Nita Huddleston Performed By: #### SURGP #### [place] [address] *POC GLUCOSE BATTERY Collected: 07/01/2018 Status: F Source: [facility] 12:05 PM [facility] REPOSITORY TYPE CODE TESTS RESULT OUT OF REFERENCE UNITS RANGE LAB GLUP 70-99 mg/dL High Glucose (poc 109 device) Result Comment: No BRAVE per RN: PATIENT TYPE LAB PCSTYP *POC Capillary SAMPLE TYPE Blood *POC GLUCOSE BATTERY Collected: 07/01/2018 Status: F Source: [facility] 8:22 AM [facility] REPOSITORY TYPE CODE TESTS RESULT OUT OF REFERENCE UNITS RANGE LAB GLUP 70-99 mg/dL High Glucose (poc 111 device) Result Comment: No BRAVE per RN: PATIENT TYPE LAB PCSTYP *POC Capillary SAMPLE TYPE Blood HGB & HCT Collected: 07/01/2018 Status: F Source: [facility] 6:20 AM [facility] REPOSITORY TYPE CODE TESTS RESULT OUT OF REFERENCE UNITS RANGE LAB HGB 11.4-15.2 g/dL Low Hemoglobin 8.0 LAB HCT 34.9-44.3 % Low Hematocrit 24.2 Performed By: #### HH, PTI #### [place] [address] PT/INR BATTERY Collected: 07/01/2018 Status: F Source: [facility] 6:20 AM [facility] REPOSITORY TYPE CODE TESTS RESULT OUT OF RANGE REFERENCE UNITS LAB PT 11.9-14.2 sec High PT 16.7 LAB INR 0.9-1.1 High INR 1.3 Performed By: #### HH, PTI #### [place] [address] Observed: 07/01/2018 Status: F Source: [facility] TYPE AND CROSS 12:20 AM [facility] REPOSITORY ABO/RH(D): O POSITIVE ANTIBODY SCREEN: NEGATIVE UNIT NUMBER: [id number] BLOOD COMPONENT TYPE: Red Cells, Leukoreduced_[id number] STATUS OF UNIT: Issued, Final TRANSFUSION STATUS: OK TO TRANSFUSE CROSSMATCH RESULT: Electronically Compatible UNIT NUMBER: [id number] BLOOD COMPONENT TYPE: Red Cells, Leukoreduced_[id number] STATUS OF UNIT: Issued, Final TRANSFUSION STATUS: OK TO TRANSFUSE CROSSMATCH RESULT: Electronically Compatible Performed By: #### XM #### [facility] [address] [place] [address] [address] [place], [place] [address] CBC,PLATELET,DIFFERENTIAL - CCL Collected: Status: F Source: [facility] 07/01/2018 12:10 [facility] REPOSITORY TYPE CODE TESTS RESULT [...] 0.72 Low LAB AMONO 0.22-0.87 K/uL Abs Sutter 0.58 LAB AEOS 0.00-0.42 K/uL Abs Eos 0.28 LAB ABASO 0.00-0.15 K/uL Abs Baso <0.04 Performed By: #### CBCDFC, CHM6 #### [facility] [address] [place] [address] [place] [address] [place] [address] CHEM 6 Collected: 07/01/2018 Status: F Source: [facility] 12:10 AM [facility] REPOSITORY TYPE CODE TESTS RESULT [...] >60 mL/min/1.73 Low sqM Est GFR,non 41 Dutch LAB GFRA >60 mL/min/1.73 Low sqM Est GFR, 49 Performed By: #### CBCDFC, CHM6 #### [facility] [address] [place] [address] [place] [address] *POC GLUCOSE BATTERY Collected: 06/30/2018 Status: F Source: [facility] 9:53 PM [facility] REPOSITORY TYPE CODE TESTS RESULT OUT OF REFERENCE UNITS RANGE LAB GLUP 70-99 mg/dL High Glucose (poc 212 device) Result Comment: No BRAVE per RN: PATIENT TYPE LAB PCSTYP *POC Capillary SAMPLE TYPE Blood *POC GLUCOSE BATTERY Collected: 06/30/2018 Status: F Source: [facility] 6:18 PM [facility] REPOSITORY TYPE CODE TESTS RESULT OUT OF REFERENCE UNITS RANGE LAB GLUP 70-99 mg/dL High Glucose (poc 242 device) Result Comment: Notified RNread back No BRAVE per RN: PATIENT TYPE LAB PCSTYP *POC Capillary SAMPLE TYPE Blood HGB & HCT Collected: 06/30/2018 Status: F Source: [facility] 5:25 PM [facility] REPOSITORY TYPE CODE TESTS RESULT OUT OF REFERENCE UNITS RANGE LAB HGB 11.4-15.2 g/dL Low Hemoglobin 8.1 LAB HCT 34.9-44.3 % Low Hematocrit 25.2 Performed By: #### HH #### [facility] [id number] [place] [address] [place] [address] BACT CULTURE/DIR Observed: Status: F Source: [place] [facility],LESION,TISSUE,DEVICE-UHE 06/30/2018 1:37 [facility] REPOSITORY SOURCE: WOUND: Left Dorsum Wrist COMMENT: eSwab transport medium sent MICROSCOPIC: Neutrophils, Heavy Red Blood Cells Present Mononuclear cells present NO ORGANISMS SEEN Gram Stain read at [facility] QUANTITATION: <<NOT APPLICABLE>> RESULT: PASTEURELLA MULTOCIDA : 1 COLONY :Identification by MALDI- TOF mass spectrometer. ---> RVW (NOTE) Susceptibilities not routinely performed. Identification was performed on the MALDI-TOF mass spectrometer [employer]per. This test was developed and its performance characteristics determined by [facility] at [facility]. It has not been cleared or approved by the FDA. The laboratory is regulated under CLIA as qualified to perform high -complexity testing. This test is used for clinical purposes. It should not be regarded as investigational or for research REPORT STATUS: 07/02/2018 FINAL Performed By: #### GEN #### [address] [address] Blood Cultures processed at: [facility] Observed: 06/30/2018 Status: F Source: [facility] CULTURE -E 1:37 PM [facility] REPOSITORY SOURCE: WOUND: Left Dorsum Wrist COMMENT: eSwab transport medium sent MICROSCOPIC: See Routine Culture RESULT: NO ANAEROBIC GROWTH REPORT STATUS: 07/06/2018 FINAL Performed By: #### REINALDO #### [address] [address] Blood Cultures processed at: [facility] Observed: 06/30/2018 Status: F Source: [facility] ACID FAST CULTURE 1:36 PM [facility] REPOSITORY SOURCE: WOUND: Left Dorsum Wrist COMMENT: eSwab transport medium sent MICROSCOPIC: No Acid Fast Bacillus Seen :Examined by Fluorochrome Stain RESULT: NO GROWTH DAY 42 OF 42 REPORT STATUS: 08/11/2018 FINAL Performed By: #### AFB #### [address] [address] Blood Cultures processed at: [facility] Observed: 06/30/2018 Status: F Source: [facility] FUNGUS CULTURE -UHE 1:35 PM [facility] REPOSITORY SOURCE: WOUND: Left Dorsum Wrist COMMENT: Cultures held 28 days. eSwab transport medium sent RESULT: NO GROWTH TO DATE REPORT STATUS: 07/28/2018 FINAL Performed By: #### FUN #### [address] [address] Blood Cultures processed at: [facility] HGB & HCT Collected: 06/30/2018 Status: F Source: [facility] 12:43 PM [facility] REPOSITORY TYPE CODE TESTS RESULT OUT OF REFERENCE UNITS RANGE LAB HGB 11.4-15.2 g/dL Low Hemoglobin 7.9 LAB HCT 34.9-44.3 % Low Hematocrit 24.2 Performed By: #### HH, PTI #### U [address] [address] PT/INR BATTERY Collected: 06/30/2018 Status: F Source: [facility] 12:43 PM [facility] REPOSITORY TYPE CODE TESTS RESULT OUT OF RANGE REFERENCE UNITS LAB PT 11.9-14.2 sec High PT 16.9 LAB INR 0.9-1.1 High INR 1.4 Performed By: #### HH, PTI #### U [id number] [place] [address] [place] [address] *POC GLUCOSE BATTERY Collected: 06/30/2018 Status: F Source: [facility] 12:16 PM [facility] REPOSITORY TYPE CODE TESTS RESULT OUT OF REFERENCE UNITS RANGE LAB GLUP 70-99 mg/dL High Glucose (poc 133 device) Result Comment: No BRAVE per RN: PATIENT TYPE LAB PCSTYP *POC Capillary SAMPLE TYPE Blood *POC GLUCOSE BATTERY Collected: 06/30/2018 Status: F Source: [facility] 11:43 AM [facility] REPOSITORY TYPE CODE TESTS RESULT OUT OF REFERENCE UNITS RANGE LAB GLUP 70-99 mg/dL High Glucose (poc 141 device) Result Comment: No BRAVE per RN: PATIENT TYPE LAB PCSTYP *POC Capillary SAMPLE TYPE Blood BACT CULTURE/DIR Observed: Status: F Source: [place] [facility],LESION,TISSUE,DEVICE-UHE 06/30/2018 11:29 [facility] REPOSITORY SOURCE: WOUND: Left Wrist JOINT COMMENT: eSwab transport medium sent MICROSCOPIC: Neutrophils, None Red Blood Cells Present NO ORGANISMS SEEN Gram Stain read at [facility] QUANTITATION: <<NOT APPLICABLE>> RESULT: PASTEURELLA MULTOCIDA : 1 COLONY :Identification by MALDI- TOF mass spectrometer. ---> RVW (NOTE) Susceptibilities not routinely performed. Identification was performed on the MALDI-TOF mass spectrometer [employer]r. This test was developed and its performance characteristics determined by [facility] at [facility]. It has not been cleared or approved by the FDA. The laboratory is regulated under CLIA as qualified to perform high -complexity testing. This test is used for clinical purposes. It should not be regarded as investigational or for research REPORT STATUS: 07/02/2018 FINAL Performed By: #### GEN #### [place] [address] Blood Cultures processed at: [facility] Observed: 06/30/2018 Status: F Source: [facility] ACID FAST CULTURE 11:29 [facility] REPOSITORY SOURCE: WOUND: Left Wrist JOINT COMMENT: eSwab transport medium sent MICROSCOPIC: No Acid Fast Bacillus Seen :Examined by Fluorochrome Stain RESULT: NO GROWTH DAY 42 OF 42 REPORT STATUS: 08/11/2018 FINAL Performed By: #### AFB #### [address] [address] Blood Cultures processed at: [facility] Observed: 06/30/2018 Status: F Source: [facility] FUNGUS CULTURE -UHE 11:29 [facility] REPOSITORY SOURCE: WOUND: Right Wrist JOINT COMMENT: Cultures held 28 days. eSwab transport medium sent RESULT: NO GROWTH TO DATE REPORT STATUS: 07/28/2018 FINAL Performed By: #### FUN #### [address] [address] Blood Cultures processed at: [facility] Observed: 06/30/2018 Status: F Source: [facility] ANAEROBE CULTURE -E 11:29 [facility] REPOSITORY SOURCE: WOUND: Left Wrist JOINT COMMENT: eSwab transport medium sent MICROSCOPIC: See Routine Culture RESULT: NO ANAEROBIC GROWTH (NOTE) Specimen incubated up to 14 days REPORT STATUS: 07/14/2018 FINAL Performed By: #### REINALDO #### [facility] [address] [place] [address] Blood Cultures processed at: [facility] *POC GLUCOSE BATTERY Collected: 06/30/2018 Status: F Source: [facility] 8:00 AM [facility] REPOSITORY TYPE CODE TESTS RESULT OUT OF REFERENCE UNITS RANGE LAB GLUP 70-99 mg/dL High Glucose (poc 138 device) Result Comment: Notified RNread back No BRAVE per RN: PATIENT TYPE LAB PCSTYP *POC Capillary SAMPLE TYPE Blood HGB & HCT Collected: 06/30/2018 Status: F Source: [facility] 6:00 AM [facility] REPOSITORY TYPE CODE TESTS RESULT OUT OF REFERENCE UNITS RANGE LAB HGB 11.4-15.2 g/dL Low Hemoglobin 7.2 LAB HCT 34.9-44.3 % Low Hematocrit 21.8 Performed By: #### HH #### [facility] [address] [place] [id number] [place] [address] [place] [address] CBC,PLATELET,DIFFERENTIAL - CCL Collected: Status: F Source: [facility] 06/30/2018 12:01 [facility] REPOSITORY TYPE CODE TESTS RESULT [...] 0.69 Low LAB AMONO 0.22-0.87 K/uL Abs Sutter 0.71 LAB AEOS 0.00-0.42 K/uL Abs Eos 0.38 LAB ABASO 0.00-0.15 K/uL Abs Baso <0.04 Performed By: #### ELIJAH, CHM6 #### [facility] [address] [place] [address] CHEM 6 Collected: 06/30/2018 Status: F Source: [facility] 12:01 AM [facility] REPOSITORY TYPE CODE TESTS RESULT [...] >60 mL/min/1.73 Low sqM Est GFR,non 41 Dutch LAB GFRA >60 mL/min/1.73 Low sqM Est GFR, 50 Performed By: #### ELIJAH, CHM6 #### [facility] [address] [address] [facility] [address] [place] [address] *POC GLUCOSE BATTERY Collected: 06/29/2018 Status: F Source: [facility] 9:38 PM [facility] REPOSITORY TYPE CODE TESTS RESULT OUT OF REFERENCE UNITS RANGE LAB GLUP 70-99 mg/dL High Glucose (poc 220 device) Result Comment: No BRAVE per RN: PATIENT TYPE LAB PCSTYP *POC Capillary SAMPLE TYPE Blood *POC GLUCOSE BATTERY Collected: 06/29/2018 Status: F Source: [facility] 6:16 PM [facility] REPOSITORY TYPE CODE TESTS RESULT OUT OF REFERENCE UNITS RANGE LAB GLUP 70-99 mg/dL High Glucose (poc 203 device) Result Comment: No BRAVE per RN: PATIENT TYPE LAB PCSTYP *POC Capillary SAMPLE TYPE Blood HGB & HCT Collected: 06/29/2018 Status: F Source: [facility] 5:57 PM [facility] REPOSITORY TYPE CODE TESTS RESULT OUT OF REFERENCE UNITS RANGE LAB HGB 11.4-15.2 g/dL Low Hemoglobin 7.1 LAB HCT 34.9-44.3 % Low Hematocrit 21.8 Performed By: #### HH #### [facility] [place] [address] *POC GLUCOSE BATTERY Collected: 06/29/2018 Status: F Source: [facility] 3:44 PM [facility] REPOSITORY TYPE CODE TESTS RESULT OUT OF REFERENCE UNITS RANGE LAB GLUP 70-99 mg/dL High Glucose (poc 263 device) Result Comment: Notified RNread back No BRAVE per RN: PATIENT TYPE LAB PCSTYP *POC Capillary SAMPLE TYPE Blood XR FEMUR LEFT Observed: 06/29/2018 Status: F Source: [facility] 2:28 PM [facility] REPOSITORY EXAM: XR PELVIS MIN 3 VIEWS, XR FEMUR LEFT, 06/29/2018 14:04 PM (accession [id number]), 06/29/2018 14:05 PM (accession [id number]) COMPARISON: CT abdomen/pelvis 06/27/2018, left femur radiographs [...] MIN 3 Observed: 06/29/2018 Status: F Source: [facility] VIEWS 2:28 PM [facility] REPOSITORY EXAM: XR PELVIS MIN 3 VIEWS, XR FEMUR LEFT, 06/29/2018 14:04 PM (accession [id number]), 06/29/2018 14:05 PM (accession [id number]) COMPARISON: CT abdomen/pelvis 06/27/2018, left femur radiographs [...] & HCT Collected: 06/29/2018 Status: F Source: [facility] 12:24 PM [facility] REPOSITORY TYPE CODE TESTS RESULT OUT OF REFERENCE UNITS RANGE LAB HGB 11.4-15.2 g/dL Low Hemoglobin 7.3 LAB HCT 34.9-44.3 % Low Hematocrit 22.6 Performed By: #### HH #### [facility] [address] [place] [address] [facility] [address] [place] [address] *POC GLUCOSE BATTERY Collected: 06/29/2018 Status: F Source: [facility] 11:39 AM [facility] REPOSITORY TYPE CODE TESTS RESULT OUT OF REFERENCE UNITS RANGE LAB GLUP 70-99 mg/dL High Glucose (poc 212 device) Result Comment: Notified RNread back No BRAVE per RN: PATIENT TYPE LAB PCSTYP *POC Capillary SAMPLE TYPE Blood *POC GLUCOSE BATTERY Collected: 06/29/2018 Status: F Source: [facility] 7:44 AM [facility] REPOSITORY TYPE CODE TESTS RESULT OUT OF REFERENCE UNITS RANGE LAB GLUP 70-99 mg/dL High Glucose (poc 168 device) Result Comment: Notified RNread back No BRAVE per RN: PATIENT TYPE LAB PCSTYP *POC Capillary SAMPLE TYPE Blood HGB & HCT Collected: 06/29/2018 Status: F Source: [facility] 5:38 AM [facility] REPOSITORY TYPE CODE TESTS RESULT OUT OF REFERENCE UNITS RANGE LAB HGB 11.4-15.2 g/dL Low Hemoglobin 7.5 LAB HCT 34.9-44.3 % Low Hematocrit 23.1 Performed By: #### HH #### [facility] [address] [place] [address] [place] [address] IMMUNOCOMPROMISED Collected: Status: F Source: [facility] RESPIRATORY PANEL 06/29/2018 1:55 AM [facility] REPOSITORY TYPE CODE TESTS RESULT [...] accid assay. Performed By: #### ICRESP #### [place] [address] CBC,PLATELET,DIFFERENTIAL - CCL Collected: Status: F Source: [facility] 06/29/2018 12:22 [facility] REPOSITORY TYPE CODE TESTS RESULT [...] 0.76 Low LAB AMONO 0.22-0.87 K/uL Abs [facility] 0.65 LAB AEOS 0.00-0.42 K/uL Abs Eos 0.20 LAB ABASO 0.00-0.15 K/uL Abs Baso <0.04 Performed By: #### CBCDFC, CHM6, HFP, IPB, MGO #### [facility] [address] [place] [phone] [place] [address] [address] CHEM 6 Collected: 06/29/2018 Status: F Source: [facility] 12:22 [facility] REPOSITORY TYPE CODE TESTS RESULT [...] >60 mL/min/1.73 Low sqM Est GFR,non 33 Dutch LAB GFRA >60 mL/min/1.73 Low sqM Est GFR, 40 Performed By: #### CBCDFC, CHM6, HFP, IPB, MGO #### [facility] [address] [place] [id number] [place] [address] [address] [place] [address] HEPATIC FUNCTION Collected: 06/29/2018 Status: F Source: [facility] 12:22 [facility] REPOSITORY TYPE CODE TESTS RESULT [...] CBCDFC, CHM6, HFP, IPB, MGO #### [facility] [address] [place] [phone] [place] [address] [place] [address] INORGANIC PHOSPHATE Collected: 06/29/2018 Status: F Source: [facility] 12:22 AM [facility] REPOSITORY TYPE CODE TESTS RESULT OUT OF REFERENCE UNITS RANGE LAB IP 2.2-4.6 mg/dL Inorg Phosphate 3.4 Performed By: #### CBCDFC, CHM6, HFP, IPB, MGO #### [facility] [address] [place] [id number] [place] [address] [address] [place] [address] MAGNESIUM Collected: 06/29/2018 Status: F Source: [facility] 12:22 AM [facility] REPOSITORY TYPE CODE TESTS RESULT OUT OF REFERENCE UNITS RANGE LAB MG 1.6-2.6 mg/dL Magnesium 2.2 Performed By: #### CBCDFC, CHM6, HFP, IPB, MGO #### [facility] [address] [place] [phone] [place] [address] [address] [place] [address] *POC GLUCOSE BATTERY Collected: 06/28/2018 Status: F Source: [facility] 9:07 PM [facility] REPOSITORY TYPE CODE TESTS RESULT OUT OF REFERENCE UNITS RANGE LAB GLUP 70-99 mg/dL High Glucose (poc 225 device) Result Comment: No BRAVE per RN: PATIENT TYPE LAB PCSTYP *POC Capillary SAMPLE TYPE Blood *POC GLUCOSE BATTERY Collected: 06/28/2018 Status: F Source: [facility] 6:31 PM [facility] REPOSITORY TYPE CODE TESTS RESULT OUT OF REFERENCE UNITS RANGE LAB GLUP 70-99 mg/dL High Glucose (poc 220 device) Result Comment: Notified RNread back No BRAVE per RN: PATIENT TYPE LAB PCSTYP *POC Capillary SAMPLE TYPE Blood HGB & HCT Collected: 06/28/2018 Status: F Source: [facility] 5:35 PM [facility] REPOSITORY TYPE CODE TESTS RESULT OUT OF REFERENCE UNITS RANGE LAB HGB 11.4-15.2 g/dL Low alert Hemoglobin 6.2 Result Comment: This result has been called to RN SAHIL BEAVERS by Felipe Baker on 06 28 2018 at 1836, and has been read back. LAB HCT 34.9-44.3 % Hematocrit Low 19.5 Performed By: #### HH #### [facility] [address] [place] [address] [place] [address] *POC GLUCOSE BATTERY Collected: 06/28/2018 Status: F Source: [facility] 11:48 AM [facility] REPOSITORY TYPE CODE TESTS RESULT OUT OF REFERENCE UNITS RANGE LAB GLUP 70-99 mg/dL High Glucose (poc 247 device) Result Comment: No BRAVE per RN: PATIENT TYPE LAB PCSTYP *POC Capillary SAMPLE TYPE Blood HGB & HCT Collected: 06/28/2018 Status: F Source: [facility] 11:46 AM [facility] REPOSITORY TYPE CODE TESTS RESULT OUT OF REFERENCE UNITS RANGE LAB HGB 11.4-15.2 g/dL Low Hemoglobin 7.1 LAB HCT 34.9-44.3 % Low Hematocrit 21.6 Performed By: #### HH #### [facility] [address] [place] [address] [place] [address] CHEST WITHOUT Observed: 06/28/2018 Status: F Source: [facility] CONTRAST 11:08 AM [facility] REPOSITORY EXAM: CT CHEST WITHOUT CONTRAST, 06/28/2018 [...] HEAD WITHOUT Observed: 06/28/2018 Status: F Source: [facility] CONTRAST 10:35 AM [facility] REPOSITORY EXAM: CT HEAD WITHOUT CONTRAST, 06/28/2018 [...] ONIN I Collected: 06/28/2018 Status: F Source: [facility] 10:21 AM [facility] REPOSITORY TYPE CODE TESTS RESULT OUT OF REFERENCE UNITS RANGE LAB TROP <0.11 ng/mL Troponin I 0.01 Performed By: #### TROP #### [facility] [address] [place] [address] XR CHEST AP PORTABLE Observed: 06/28/2018 Status: F Source: [facility] ED 8:53 AM [facility] REPOSITORY EXAM: XR CHEST AP PORTABLE ED, [...] ATE, BLOOD Collected: 06/28/2018 Status: F Source: [facility] 7:56 AM [facility] REPOSITORY TYPE CODE TESTS RESULT OUT OF RANGE REFERENCE UNITS LAB LACT 0.5-1.6 mmol/L Lactate, 1.2 Blood Performed By: #### LACT #### [place] [address] HGB & HCT Collected: 06/28/2018 Status: F Source: [facility] 6:12 AM [facility] REPOSITORY TYPE CODE TESTS RESULT OUT OF REFERENCE UNITS RANGE LAB HGB 11.4-15.2 g/dL Low Hemoglobin 7.0 LAB HCT 34.9-44.3 % Low Hematocrit 21.1 Performed By: #### HH, TROP #### [facility] [address] [place] [address] TROPONIN I Collected: 06/28/2018 Status: F Source: [facility] 6:12 AM [facility] REPOSITORY TYPE CODE TESTS RESULT OUT OF REFERENCE UNITS RANGE LAB TROP <0.11 ng/mL Troponin I 0.01 Performed By: #### HH, TROP #### [facility] [address] [place], [place] [phone] [place] [address] [address] [place], [place] [address] FLUID BATTERY Collected: 06/28/2018 Status: C Source: [facility] 1:48 AM [facility] REPOSITORY TYPE CODE TESTS RESULT [...] be accurate. LAB FRBC /uL RBC FLUID [id number] Result Comment: The reference range and other [...] Performed By: #### FLDB, FCRYSB #### [facility] [address] [place], [place] [phone] [place] [address] [address] [place], [place] [address] FLUID CRYSTALS Collected: 06/28/2018 Status: F Source: [facility] 1:48 AM [facility] REPOSITORY TYPE CODE TESTS RESULT OUT OF RANGE REFERENCE UNITS LAB FCRYS Negative Calcium Abnormal CRYSTALS pyrophosphate FLUID crystals are present. Result Comment: RARE LAB RB17 Reviewed by: Dr. Lianne Villalta MD, PhD Performed By: #### FLDB, FCRYSB #### [facility] [address] [place] [address] [address] [place], [place] [address] Observed: 06/28/2018 Status: F Source: [facility] BODY FLUID CULTURE 1:48 AM [facility] REPOSITORY SOURCE: Synovial Fluid: Left Wrist COMMENT: Results may be compromised due to the limited volume of specimen received. Bloody .2MLS MICROSCOPIC: Neutrophils, Heavy Mononuclear cells present NO ORGANISMS SEEN Final Report, verified by Microbiology RESULT: NO GROWTH DAY 2 REPORT STATUS: 06/30/2018 FINAL Performed By: #### BENOIT #### [address] [address] Blood Cultures processed at: [facility] Observed: 06/28/2018 Status: F Source: [facility] FUNGUS CULTURE -UHE 1:48 AM [facility] REPOSITORY SOURCE: Synovial Fluid: Left Wrist COMMENT: Bloody .2MLS RESULT: NO GROWTH TO DATE REPORT STATUS: 07/27/2018 FINAL Performed By: #### FUN #### [address] [address] Blood Cultures processed at: [facility] HEMOGRAM (CBC AND Collected: 06/28/2018 Status: F Source: [facility] PLATELET) 1:38 AM [facility] REPOSITORY TYPE CODE TESTS RESULT [...] CHM7, HFP, MGO, TROP, PTPTT #### [facility] [address] [place] [address] [place] [address] CHEM 7 Collected: 06/28/2018 Status: F Source: [facility] 1:38 AM [facility] REPOSITORY TYPE CODE TESTS RESULT [...] >60 mL/min/1.73 Low sqM Est GFR,non 26 Dutch LAB GFRA >60 mL/min/1.73 Low sqM Est GFR, 32 Performed By: #### HEMOGC, CHM7, HFP, MGO, TROP, PTPTT #### [facility] [address] [place] [id number] [place] [address] [address] [place] [address] HEPATIC FUNCTION Collected: 06/28/2018 Status: F Source: [facility] PANEL 1:38 AM [facility] REPOSITORY TYPE CODE TESTS RESULT [...] HEMOGC, CHM7, HFP, MGO, TROP, PTPTT #### [facility] [address] [place] [address] [place] [address] MAGNESIUM Collected: 06/28/2018 Status: F Source: [facility] 1:38 AM [facility] REPOSITORY TYPE CODE TESTS RESULT OUT OF REFERENCE UNITS RANGE LAB MG 1.6-2.6 mg/dL Magnesium 2.2 Performed By: #### HEMOGC, CHM7, HFP, MGO, TROP, PTPTT #### [facility] [address] [place] [address] [place] [address] TROPONIN I Collected: 06/28/2018 Status: F Source: [facility] 1:38 AM [facility] REPOSITORY TYPE CODE TESTS RESULT OUT OF REFERENCE UNITS RANGE LAB TROP <0.11 ng/mL Troponin I 0.02 Performed By: #### HEMOGC, CHM7, HFP, MGO, TROP, PTPTT #### [facility] [address] [place] [address] [place] [address] PT*PTT Collected: 06/28/2018 Status: F Source: [facility] 1:38 AM [facility] REPOSITORY TYPE CODE TESTS RESULT OUT OF RANGE REFERENCE UNITS LAB PT 11.9-14.2 sec High PT 17.6 LAB INR 0.9-1.1 High INR 1.4 LAB PTT 24.0-34.3 sec PTT 30.8 Performed By: #### HEMOGC, CHM7, HFP, MGO, TROP, PTPTT #### [facility] [address] [place] [phone] [place] [address] [address] [place] [address] STREP PNEUMONIAE Collected: 06/28/2018 Status: F Source: [facility] ANTIGEN,URINE 1:38 AM [facility] REPOSITORY TYPE CODE TESTS RESULT OUT OF REFERENCE UNITS RANGE LAB PNEUMO Negative Strep Pneumoniae Negative Antigen,urine Performed By: #### PNEUMO #### [facility] [address] [place] [address] [address] [place] [address] LEGIONELLA URINARY Collected: 06/28/2018 Status: F Source: [facility] ANTIGEN 1:38 [facility] REPOSITORY TYPE CODE TESTS RESULT OUT OF RANGE REFERENCE UNITS LAB LEGION Negative Abnormal Legionella Bloody, Urinary Antigen cannot perform assay Result Comment: Called to and read back by RENALDO BEAVERS AT 0831 06/28/2018 Performed By: #### LEGION #### [facility] [address] [place] [address] [address] [place] [address] Observed: 06/28/2018 Status: F Source: [facility] INFLUENZA A AND B, 1:38 AM [facility] RSV, PCR - [facility] REPOSITORY NASOPHARYNX: NOT DETECTED This test was performed using a multiplex real time PCR assay. This result does not rule out co-infections with pathogens that were not screened for by this test. Results should be used in conjun ction with other clinical and laboratory findings. NOT DETECTED NOT DETECTED Performed By: #### RVPCR #### [address] [address] C REACTIVE PROTEIN Collected: 06/28/2018 Status: F Source: [facility] 1:26 AM [facility] REPOSITORY TYPE CODE TESTS RESULT OUT OF REFERENCE UNITS RANGE LAB CRP <10.00 mg/L C High Reactive 50.80 Protein Performed By: #### CRP, ESR #### [facility] [address] [place] [address] [facility] [address] [place], [place] [address] ESR WESTERGREN Collected: 06/28/2018 Status: F Source: [facility] 1:26 AM [facility] REPOSITORY TYPE CODE TESTS RESULT OUT OF REFERENCE UNITS RANGE LAB ESR <30 mm/hr ESR Westergren 3 Performed By: #### CRP, ESR #### [facility] [address] [place] [address] [facility] [address] [place], [place] [address] *POC GLUCOSE BATTERY Collected: 06/27/2018 Status: F Source: [facility] 11:57 PM [facility] REPOSITORY TYPE CODE TESTS RESULT OUT OF REFERENCE UNITS RANGE LAB GLUP 70-99 mg/dL High Glucose (poc 189 device) Result Comment: No BRAVE per RN: PATIENT TYPE LAB PCSTYP *POC Capillary SAMPLE TYPE Blood CBC WITH DIFF ENOCH Collected: 06/27/2018 Status: F Source: [facility] 11:50 PM [facility] REPOSITORY TYPE CODE TESTS RESULT [...] 0.99 Low LAB AMONO 0.22-0.87 K/uL Abs [facility]utter 0.93 High LAB AEOS 0.00-0.42 K/uL Abs Eos 0.10 LAB ABASO 0.00-0.15 K/uL Abs Baso <0.04 Performed By: #### PEDRO #### [facility], [facility] [address] [place] [address] BASIC METABOLIC Collected: 06/27/2018 Status: F Source: [facility] PANEL-CHRI 11:50 PM [facility] REPOSITORY TYPE CODE TESTS RESULT [...] >60 mL/min/1.73 Low sqM Est GFR,non 27 Dutch LAB GFRA >60 mL/min/1.73 Low sqM Est GFR, 32 Performed By: #### PEDRO #### [facility], [facility] [address] [place] [address] TROPONIN - CHRI Collected: 06/27/2018 Status: F Source: [facility] 11:05 PM [facility] REPOSITORY TYPE CODE TESTS RESULT OUT OF REFERENCE UNITS RANGE LAB TROP <0.11 ng/mL Troponin I 0.02 CT ABDOMEN/PELVIS WITHOUT Observed: 06/27/2018 Status: F Source: [facility] 8:50 PM [facility] REPOSITORY EXAM: CT ABDOMEN/PELVIS WITHOUT CONTRAST, 06/27/2018 [...] - CHRI Collected: 06/27/2018 Status: F Source: [facility] 7:36 PM [facility] REPOSITORY TYPE CODE TESTS RESULT OUT OF REFERENCE UNITS RANGE LAB HGB 11.4-15.2 g/dL Low alert Hemoglobin 5.1 Result Comment: This result has been called to URMILA CLAROS RN by Roseanna Velásquez on 06 27 2018 at 2005, and has been read back. LAB HCT 34.9-44.3 % Hematocrit Low 15.9 Performed By: #### ALONZO ###Kannan Connell [facility], [facility] [address] [place], [place] [address] TROPONIN - CHRI Collected: 06/27/2018 Status: F Source: [facility] 7:36 PM [facility] REPOSITORY TYPE CODE TESTS RESULT OUT OF REFERENCE UNITS RANGE LAB TROP <0.11 ng/mL Troponin I 0.02 Performed By: #### ALONZO ###Kannan Connell [facility], [facility] [address] [place], [place] [address] Observed: 06/27/2018 Status: F Source: [facility] BLOOD:ROUTINE II 5:32 PM [facility] REPOSITORY SOURCE: BLOOD, PERIPHERAL: Right Antecubital RESULT: NO GROWTH DAY 5 OF 5 REPORT STATUS: 07/02/2018 FINAL Performed By: #### FAST2 #### [address] [address] Blood Cultures processed at: [facility] XR FOREARM LEFT Observed: 06/27/2018 Status: F Source: [facility] 5:10 PM [facility] REPOSITORY EXAM: XR WRIST LEFT 4 VIEWS, [...] LEFT 3 Observed: 06/27/2018 Status: F Source: [facility] VIEWS 5:10 PM [facility] REPOSITORY EXAM: XR WRIST LEFT 4 VIEWS, [...] W REFLEX Collected: 06/27/2018 Status: F Source: [facility] CULTURE -CHRI 4:31 PM [facility] REPOSITORY TYPE CODE TESTS RESULT OUT OF RANGE REFERENCE UNITS LAB PROCESS CHECKER Clear Appearance Turbid Abnormal Urine LAB SPGR 1.001-1.035 Specific 1.020 [place] urine LAB UGL Negative mg/dL Glucose Negative [...] URINE Performed By: #### [id number] #### [facility] [address] [place] [address] [facility] [address] [place], [place] [address] Observed: 06/27/2018 Status: F Source: [facility] URINE CULTURE -[facility] 4:31 PM [facility] REPOSITORY SOURCE: URINE-CLEAN CATCH: RESULT: NO SIGNIFICANT GROWTH. Routine cultures are evaluated for significant uropathogens >10,000 CFU/mL. REPORT STATUS: 06/29/2018 FINAL Performed By: #### UR #### [facility] [address] [place] [address] Blood Cultures processed at: [facility] Observed: 06/27/2018 Status: F Source: [facility] BLOOD:ROUTINE I 4:15 PM [facility] REPOSITORY SOURCE: BLOOD, PERIPHERAL: Left Antecubital RESULT: NO GROWTH DAY 5 OF 5 REPORT STATUS: 07/02/2018 FINAL Performed By: #### FAST #### [place] [address] Blood Cultures processed at: [facility] Observed: 06/27/2018 Status: F Source: [facility] TYPE AND CROSS 4:12 PM [facility] REPOSITORY ABO/RH(D): O POSITIVE ANTIBODY SCREEN: NEGATIVE UNIT NUMBER: [id number] BLOOD COMPONENT TYPE: Red Cells, Leukoreduced_[id number] STATUS OF UNIT: Issued, Final TRANSFUSION STATUS: OK TO TRANSFUSE CROSSMATCH RESULT: Electronically Compatible UNIT NUMBER: [id number] BLOOD COMPONENT TYPE: Red Cells, Leukoreduced_[id number] STATUS OF UNIT: Issued, Final TRANSFUSION STATUS: OK TO TRANSFUSE CROSSMATCH RESULT: Electronically Compatible UNIT NUMBER: [id number] BLOOD COMPONENT TYPE: Red Cells, Leukoreduced_[id number] STATUS OF UNIT: Issued, Final TRANSFUSION STATUS: OK TO TRANSFUSE CROSSMATCH RESULT: Electronically Compatible UNIT NUMBER: [id number] BLOOD COMPONENT TYPE: Apheresis Red Cells, Leukoreduced_[id number] STATUS OF UNIT: Issued, Final TRANSFUSION STATUS: OK TO TRANSFUSE CROSSMATCH RESULT: Electronically Compatible UNIT NUMBER: [id number] BLOOD COMPONENT TYPE: Red Cells, Leukoreduced_[id number] STATUS OF UNIT: Issued, Final TRANSFUSION STATUS: OK TO TRANSFUSE CROSSMATCH RESULT: Electronically Compatible UNIT NUMBER: [id number] BLOOD COMPONENT TYPE: Red Cells, Leukoreduced_[id number] STATUS OF UNIT: Issued, Final TRANSFUSION STATUS: OK TO TRANSFUSE CROSSMATCH RESULT: Electronically Compatible UNIT NUMBER: [id number] BLOOD COMPONENT TYPE: Apheresis Red Cells, Leukoreduced_[id number] STATUS OF UNIT: Issued, Final TRANSFUSION STATUS: OK TO TRANSFUSE CROSSMATCH RESULT: Electronically Compatible Performed By: #### XM #### [facility] [address] [place] [address] [place] [address] PT*PTT - CHRI Collected: 06/27/2018 Status: F Source: [facility] 3:32 PM [facility] REPOSITORY TYPE CODE TESTS RESULT OUT OF RANGE REFERENCE UNITS LAB PT 11.9-14.2 sec High PT 16.7 LAB INR 0.9-1.1 High INR 1.4 LAB PTT 24.0-34.3 sec PTT 29.8 Performed By: #### CBCDFJ #### E[facility]ch CCCT, [facility] [address] [place] [address] CBC WITH DIFF ENOCH Collected: 06/27/2018 Status: F Source: [facility] 3:32 PM [facility] REPOSITORY TYPE CODE TESTS RESULT [...] 0.78 Low LAB AMONO 0.22-0.87 K/uL Abs Sutter 1.10 High LAB AEOS 0.00-0.42 K/uL Abs Eos 0.07 LAB ABASO 0.00-0.15 K/uL Abs Baso <0.04 Performed By: #### CBCDFJ #### [facility], [facility] [address] [place], [place] [address] BASIC METABOLIC Collected: 06/27/2018 Status: F Source: [facility] PANEL-CHRI 3:32 PM [facility] REPOSITORY TYPE CODE TESTS RESULT [...] >60 mL/min/1.73 Low sqM Est GFR,non 25 Dutch LAB GFRA >60 mL/min/1.73 Low sqM Est GFR, 31 Performed By: #### PEDRO #### [facility], [facility] [address] [place] [address] HEPATIC FUNCTIONS - Collected: 06/27/2018 Status: F Source: [facility] 3:32 PM [facility] REPOSITORY TYPE CODE TESTS RESULT [...] 5.7 Performed By: #### ISSACJ #### Enoch [facility], [facility] [address] [place] [address] INORG PHOSPHATE - CHRI Collected: 06/27/2018 Status: F Source: [facility] 3:32 PM [facility] REPOSITORY TYPE CODE TESTS RESULT OUT OF REFERENCE UNITS RANGE LAB IP 2.2-4.6 mg/dL Inorg Phosphate 3.6 Performed By: #### ISSACJ #### Enoch [facility], [facility] [address] [place] [address] MAGNESIUM - CHRI Collected: 06/27/2018 Status: F Source: [facility] 3:32 PM [facility] REPOSITORY TYPE CODE TESTS RESULT OUT OF REFERENCE UNITS RANGE LAB MG 1.6-2.6 mg/dL Magnesium 2.2 Performed By: #### ISSACJ #### Enoch [facility], [facility] [address] [place] [address] TROPONIN - CHRI Collected: 06/27/2018 Status: F Source: [facility] 3:32 PM [facility] REPOSITORY TYPE CODE TESTS RESULT OUT OF REFERENCE UNITS RANGE LAB TROP <0.11 ng/mL Troponin I 0.02 B-TYPE NATRIURETIC Collected: 06/27/2018 Status: F Source: [facility] PEPTIDE - CHRI 3:32 PM [facility] REPOSITORY TYPE CODE TESTS RESULT OUT OF REFERENCE UNITS RANGE LAB BNP 0-100 pg/mL B-Type High Natriuretic 343 Peptide XR HIP RIGHT 2 Observed: 06/22/2018 Status: F Source: [facility] 2:02 PM [facility] REPOSITORY EXAM: XR HIP RIGHT 3 VIEWS,, [...] FEMUR LEFT Observed: 06/22/2018 Status: F Source: [facility] 1:52 PM [facility] REPOSITORY EXAM: XR FEMUR LEFT 2 views, [...] - CHRI Collected: 06/22/2018 Status: F Source: [facility] 12:16 PM [facility] REPOSITORY TYPE CODE TESTS RESULT OUT OF RANGE REFERENCE UNITS LAB PT 11.9-14.2 sec High PT 15.4 LAB INR 0.9-1.1 High INR 1.2 LAB PTT 24.0-34.3 sec PTT 31.5 Performed By: #### CBCDFJ #### [facility] [address] [place] [address] #### AFPTMR #### [facility] [address] [place] [address] [place] [address] CMPN WITHOUT GLUCOSE Collected: 06/22/2018 Status: F Source: [facility] 12:16 PM [facility] REPOSITORY TYPE CODE TESTS RESULT [...] Performed By: #### CBCDFJ #### Enoch CCCIsrrael, [facility] [address] [place] [address] #### AFPTMR #### [facility] [address] [place] [id number] [place] [address] [address] [place] [address] LD - CHRI Collected: 06/22/2018 Status: F Source: [facility] 12:16 PM [facility] REPOSITORY TYPE CODE TESTS RESULT OUT OF RANGE REFERENCE UNITS LAB LD 100-190 U/L High LD Total 239 Performed By: #### CBCDFJ #### Enoch [facility], [facility] [address] [place], [place] [address] #### AFPTMR #### [facility] [address] [place] [address] [facility] [address] [place], [place] [address] CBC WITH DIFF ENOCH Collected: 06/22/2018 Status: F Source: [facility] 12:16 PM [facility] REPOSITORY TYPE CODE TESTS RESULT [...] 0.83 Low LAB AMONO 0.22-0.87 K/uL Abs Sutter 0.49 LAB AEOS 0.00-0.42 K/uL Abs Eos 0.34 LAB ABASO 0.00-0.15 K/uL Abs Baso 0.04 Performed By: #### CBCDFJ #### [facility] [address] [place] [address] #### AFPTMR #### [facility] [address] [place] [address] [facility] [address] [place] [address] ALPHAFETOPROTEIN TUMOR Collected: 06/22/2018 Status: F Source: [facility] 12:16 PM [facility] REPOSITORY TYPE CODE TESTS RESULT OUT OF REFERENCE UNITS RANGE LAB AFPTMR <8.5 ng/mL Alphafetoprotein Tumor Marker 2.7 Performed By: #### CBCDFJ #### E[facility] [address] [place] [address] #### AFPTMR #### [facility] [address] [place] [address] [facility] [address] [place] [address] U DRUG SCREEN Collected: 06/20/2018 Status: F Source: [facility] 11:32 AM [facility] REPOSITORY TYPE CODE TESTS RESULT OUT OF RANGE REFERENCE UNITS LAB 11579957(L OINC) U Normal Amph Scr NEGATIVE LAB 60860263(L OINC) U Normal Jen Scr NEGATIVE LAB 98886597(L OINC) U Normal Benzodia Scr POSITIVE LAB 01509437(L OINC) U Normal Cannab Scr NEGATIVE LAB 34281812(L OINC) U Normal Cocaine Scr NEGATIVE LAB 96187591(L OINC) U Normal Opiate Scr POSITIVE LAB 24014407(L OINC) U Normal PCP Scr NEGATIVE Performed By: #### [id number] #### DL Rem[facility] [place] [address] OFFICE VISIT Observed: 06/19/2018 Status: UNK Source: [facility] ([facility]AL) 12:00 PM [facility] REPOSITORY Chief Complaint [...] Subcutaneous SolutionINJECT SUBCUTANEOUSLY DIRECTED.PMH: Depression with anxiety Vincent 5-325 MG Oral TabletTAKE 1 TABLET EVERY [...] coordination was normal. In both upper extremities, fhwgpf-phyj-uaoegk was intact without dysmetria or overshoot. In both lower extremities, roko-ve-vhei was intact. Rapid alternating move ments were [...] to have her sleep study done at [facility].; Due:[id number];Ordered; For:Sleep apnea; Ordered By:Aaron Narayan; Precautions : [...] MRI ABDOMEN/PELVIS Observed: 06/09/2018 Status: F Source: [facility] WITHOUT AND WITH CONTRAST 1:16 PM [facility] REPOSITORY EXAM: MRI ABDOMEN/PELVIS WITHOUT AND WITH [...] T2-weighted images. Axial T1-weighted images, in and cbb-ix-goppt, with and without fat suppression, and pre [...] nonspecific in the setting of cirrhosis. A customer loyalty representative node in the gastrohepatic ligament measures [...] POC DEVICE Collected: 06/05/2018 Status: F Source: [facility] 2:04 PM [facility] REPOSITORY TYPE CODE TESTS RESULT OUT OF REFERENCE UNITS RANGE LAB CREPC 0.50-1.20 mg/dL High Creatinine (poc 1.25 device) LAB GFRPC >60 mL/min/1.7 Low 3 sq m est GFR, (poc device) 46 LAB PCSTYP *POC SAMPLE TYPE Venous PT Collected: 05/22/2018 Status: F Source: [facility] 1:43 PM [facility] REPOSITORY TYPE CODE TESTS RESULT OUT OF RANGE REFERENCE UNITS LAB 07696826(LO 1.0-1.2 INC) High INR 1.3 Result Comment: INR Recommended Therapeuptic Ranges: Prophylaxis/treatment of DVT and PE?2.0-3.0 Prevention of systemic embolism?.2.0-3.0 Mechanical prosthetic values?2.5-3.5 CRITICAL VALUES?.>4.0 LAB 46868567(LOINC) 11.6-14.6 second(s) High PT 15.3 Performed By: #### [id number] #### DL Hemat[facility] Automated Subsection [address] [place] [address] BMP Collected: 05/22/2018 Status: F Source: [facility] 1:43 PM [facility] REPOSITORY TYPE CODE TESTS RESULT OUT OF RANGE REFERENCE UNITS LAB 96449842(L 70-99 mg/dL OINC) Abnormal Alert Glucose Lvl 427 Result Comment: Critical Result (s) Called to and read back by: DR HOSKINS at: 05/22/2018 18:45:42 by:SYMARILIA 4 ATTEMPTS TO CALL ORDERING PHYSICIAN; NO RESPONSE CALLED AFP Tameka CASTELLANOS IS LISTED PCP LAB 62110877(LOINC) 6-23 mg/dL BUN High 40 LAB 3346806(LOINC) 0.6-1.3 mg/dL High Creatinine 1.8 LAB 17225659(LOINC) 5.4-30.0 ratio Normal BUN/Creat Ratio 22.2 LAB 71567380(LOINC) 8.6-10.3 mg/dL Calcium Normal Lvl 9.0 LAB 17883404(LOINC) 136-145 mEq/L Low Sodium Lvl 133 LAB 55320612(LOINC) 3.5-5.3 mEq/L Normal Potassium Lvl 5.3 LAB 97614404(LOINC) 98-107 mEq/L Chloride Normal 105 LAB 33261688(LOINC) 21.0-32.0 mEq/L CO2 Normal 21.0 LAB 61986182(LOINC) 10-20 mEq/L AGAP Normal 12 Performed By: #### [id number] #### DL [facility] [address] [place] [address] HEP FUNC PANEL Collected: 05/22/2018 Status: F Source: [facility] 1:43 PM [facility] REPOSITORY TYPE CODE TESTS RESULT OUT OF RANGE REFERENCE UNITS LAB 63825765(L 7-45 Int._Unit/L OINC) Normal ALT 17 LAB 99847442(L 9-39 Int._Unit/L OINC) Normal AST 22 LAB 84331053(L 3.4-5.0 G/DL OINC) Normal Albumin Lvl 3.5 LAB 67322920(L 2.0-4.0 G/DL OINC) Normal Globulin 3.0 LAB 16234312(L 1.1-1.9 ratio OINC) Normal A/G Ratio 1.2 LAB 12588434(L 33-136 Int._Unit/L OINC) High Alk Phos 163 LAB 88403079(L .00-.30 mg/dL OINC) High Bili Direct .80 LAB 05597489(L OINC) Normal Bili Indirect 1.5 LAB 40131571(L 0.0-1.2 mg/dL OINC) High Bili Total 2.3 LAB 42546175(L 6.4-8.2 gm/dL OINC) Low Total Protein 6.3 Performed By: #### [id number] #### DL [employer] [facility] [place] [address] EGFR Collected: 05/22/2018 Status: F Source: [facility] 1:43 [facility] REPOSITORY Order Comment: Order added by Discern Expert. TYPE CODE TESTS RESULT OUT OF RANGE REFERENCE UNITS LAB 26103132(LO mL/min/1.73 INC) m2 Normal eGFR 28 LAB 97897287(LO mL/min/1.73 INC) m2 Normal eGFR AA 34 Performed By: #### [id number] #### DL [employer] [facility] [place] [address] CBC W/ AUTO DIFF Collected: 05/22/2018 Status: F Source: [facility] 1:43 [facility] REPOSITORY TYPE CODE TESTS RESULT OUT OF RANGE REFERENCE UNITS LAB 06790869(L 3.6-11.0 E3/mcL OINC) Normal WBC 4.5 LAB 71546117(L 3.90-5.40 E6/mcL OINC) Low RBC 3.70 LAB 03207656(L 12.0-16.0 G/DL OINC) Low Hgb 10.8 LAB 14683085(L 36.0-48.0 % OINC) Low Hct 32.4 LAB 68523214(L 11.5-14.5 % OINC) High RDW 17.2 LAB 53971712(L 27.0-31.0 pg OINC) Normal MCH 29.2 LAB 06813796(L 33.0-37.0 G/DL OINC) Normal MCHC 33.5 LAB 63154116(L 78.0-100.0 fL OINC) Normal MCV 87.4 LAB 09317468(L 7.4-11.0 fL OINC) Normal MPV 8.3 LAB 33770668(L 130-400 E3/mcL OINC) Low Platelet 70 Performed By: #### [id number] #### DL Rem[employer]emo [address] [place] [address] MORPH Collected: 05/22/2018 Status: F Source: [facility] 1:43 [facility] REPOSITORY Order Comment: Order Added by Discern Expert. TYPE CODE TESTS RESULT OUT OF REFERENCE UNITS RANGE LAB 28535362( LOINC) RBC Morph SEE Normal MORPHOLOGY LAB 82800849( LOINC) 1+ Normal Anisocytosis Performed By: #### [id number] #### DL RemHemo [address] [place] [address] ZZPLT MORPH Collected: 05/22/2018 Status: F Source: [facility] 1:43 PM [facility] REPOSITORY TYPE CODE TESTS RESULT OUT OF RANGE REFERENCE UNITS LAB 26650917(L OINC) Normal Platelet DECREASED Estimate LAB 08161321(L OINC) Normal Platelet Morph NORMAL Performed By: #### [id number] #### [facility] Rem[facility] [address] [place] [address] AUTO DIFF Collected: 05/22/2018 Status: F Source: [facility] 1:43 [facility] REPOSITORY Order Comment: Order Added by Discern Expert. TYPE CODE TESTS RESULT OUT OF RANGE REFERENCE UNITS LAB 46886371(L 37.0-75.0 % OINC) Normal Neutro Auto 67.1 LAB 36317445(L 20.0-55.0 % OINC) Low Lymph Auto 17.5 LAB 06301523(L 0.0-10.0 % OINC) Normal Sutter Auto 9.1 LAB 62673992(L 0.0-11.0 % OINC) Normal Eos Auto 5.7 LAB 57586896(L 0.0-2.0 % OINC) Normal Basophil Auto 0.6 LAB 09948796(L 1.4-6.5 E3/mcL OINC) Normal Neutro 3.0 Absolute LAB 37347710(L 1.2-3.4 E3/mcL OINC) Low Lymph Absolute 0.8 LAB 41642335(L 0.0-0.7 E3/mcL OINC) Normal Sutter Absolute 0.4 LAB 87812656(L 0.0-0.7 E3/mcL OINC) Normal Eos Absolute 0.3 LAB 17801704(L 0.0-0.2 E3/mcL OINC) Normal Basophil 0.0 Absolute Performed By: #### [id number] #### DL Rem[employer] [address] [place] [address] PT Collected: 05/06/2018 Status: F Source: [facility] 1:10 PM [facility] REPOSITORY TYPE CODE TESTS RESULT OUT OF RANGE REFERENCE UNITS LAB 62143018(LO 1.0-1.2 INC) High INR 1.3 Result Comment: INR Recommended Therapeuptic Ranges: Prophylaxis/treatment of DVT and PE?2.0-3.0 Prevention of systemic embolism?.2.0-3.0 Mechanical prosthetic values?2.5-3.5 CRITICAL VALUES?.>4.0 LAB 02906592(LOINC) 11.6-14.6 second(s) High PT 15.5 Performed By: #### [id number] #### DL Hematology Automated Subsection [address] [place] [address] BMP Collected: 05/06/2018 Status: F Source: [facility] 1:10 PM [facility] REPOSITORY TYPE CODE TESTS RESULT OUT OF RANGE REFERENCE UNITS LAB 38193900(L 70-99 mg/dL OINC) Glucose Abnormal Lvl 415 Alert LAB 18735122(L 6-23 mg/dL OINC) High BUN 38 LAB 2197885(LO 0.6-1.3 mg/dL INC) High Creatinine 1.7 LAB 14420694(L 5.4-30.0 ratio OINC) Normal BUN/Creat Ratio 22.4 LAB 38616448(L 8.6-10.3 mg/dL OINC) Normal Calcium Lvl 8.7 LAB 35207152(L 136-145 mEq/L OINC) Low Sodium Lvl 134 LAB 31045616(L 3.5-5.3 mEq/L OINC) Normal Potassium Lvl 4.9 LAB 85459735(L 98-107 mEq/L OINC) Normal Chloride 106 LAB 37982255(L 21.0-32.0 mEq/L OINC) Low CO2 20.0 Performed By: #### [id number] #### DL [employer] [place] [address] HEP FUNC PANEL Collected: 05/06/2018 Status: C Source: [facility] 1:10 PM [facility] REPOSITORY TYPE CODE TESTS RESULT OUT OF RANGE REFERENCE UNITS LAB 88567630(L 7-45 Int._Unit/L OINC) Normal ALT 15 LAB 63700950(L 9-39 Int._Unit/L OINC) Normal AST 24 LAB 75594405(L 3.4-5.0 G/DL OINC) Low Albumin Lvl 3.3 LAB 10991073(L 2.0-4.0 G/DL OINC) Normal Globulin 3.0 LAB 43857702(L 1.1-1.9 ratio OINC) Low A/G Ratio 1.0 LAB 89551635(L 33-136 Int._Unit/L OINC) High Alk Phos 164 LAB 26384859(L .00-.30 mg/dL OINC) High Bili Direct .80 LAB 26515189(L 0.0-0.9 mg/dL OINC) High Bili Indirect 1.9 LAB 86119063(L 0.0-1.2 mg/dL OINC) High Bili Total 2.7 LAB 33782080(L 6.4-8.2 gm/dL OINC) Normal Total Protein 6.5 Performed By: #### [id number] #### DL [employer] [place] [address] EGFR Collected: 05/06/2018 Status: F Source: [facility] 1:10 PM [facility] REPOSITORY Order Comment: Order added by Discern Expert. TYPE CODE TESTS RESULT OUT OF RANGE REFERENCE UNITS LAB 60936771(LO mL/min/1.73 INC) m2 Normal eGFR 31 LAB 39286861(LO mL/min/1.73 INC) m2 Normal eGFR AA 38 Performed By: #### [id number] #### DL [facility] [address] [place] [address]18[address] CBC W/ AUTO DIFF Collected: 05/06/2018 Status: F Source: [facility] 1:10 PM [facility] REPOSITORY TYPE CODE TESTS RESULT OUT OF RANGE REFERENCE UNITS LAB 18012022(L 3.6-11.0 E3/mcL OINC) Normal WBC 4.2 LAB 78080034(L 3.90-5.40 E6/mcL OINC) Low RBC 3.84 LAB 96011537(L 12.0-16.0 G/DL OINC) Low Hgb 11.0 LAB 60275167(L 36.0-48.0 % OINC) Low Hct 33.3 LAB 91821449(L 11.5-14.5 % OINC) High RDW 17.0 LAB 99002743(L 27.0-31.0 pg OINC) Normal MCH 28.6 LAB 00404232(L 33.0-37.0 G/DL OINC) Normal MCHC 33.0 LAB 10898286(L 78.0-100.0 fL OINC) Normal MCV 86.6 LAB 97473618(L 7.4-11.0 fL OINC) Normal MPV 7.8 LAB 55352909(L 130-400 E3/mcL OINC) Low Platelet 82 Performed By: #### [id number] #### DL RemHemo [address] [place] [id number] MORPH Collected: 05/06/2018 Status: F Source: [facility] 1:10 PM [facility] REPOSITORY Order Comment: Order Added by Discern Expert. TYPE CODE TESTS RESULT OUT OF REFERENCE UNITS RANGE LAB 13461060( LOINC) RBC Morph SEE Normal MORPHOLOGY LAB 69779246( LOINC) Hypochromasia 1+ Normal LAB 47659545( LOINC) Anisocytosis 2+ Normal Performed By: #### [id number] #### DL [facility] [place] [address] ZZPLT MORPH Collected: 05/06/2018 Status: F Source: [facility] 1:10 PM [facility] REPOSITORY TYPE CODE TESTS RESULT OUT OF RANGE REFERENCE UNITS LAB 35193644(L OINC) Normal Platelet DECREASED Estimate LAB 69506195(L OINC) Normal Platelet Morph NORMAL Performed By: #### [id number] #### DL Wolfe[employer]emo [address] [place] [address] AUTO DIFF Collected: 05/06/2018 Status: F Source: [facility] 1:10 PM [facility] REPOSITORY Order Comment: Order Added by Discern Expert. TYPE CODE TESTS RESULT OUT OF RANGE REFERENCE UNITS LAB 32521936(L 37.0-75.0 % OINC) Normal Neutro Auto 69.0 LAB 66692447(L 20.0-55.0 % OINC) Low Lymph Auto 18.7 LAB 87321743(L 0.0-10.0 % OINC) Normal Sutter Auto 6.7 LAB 24132762(L 0.0-11.0 % OINC) Normal Eos Auto 4.9 LAB 76772470(L 0.0-2.0 % OINC) Normal Basophil Auto 0.7 LAB 52265434(L 1.4-6.5 E3/mcL OINC) Normal Neutro 2.9 Absolute LAB 01302345(L 1.2-3.4 E3/mcL OINC) Low Lymph Absolute 0.8 LAB 90006438(L 0.0-0.7 E3/mcL OINC) Normal Sutter Absolute 0.3 LAB 79743304(L 0.0-0.7 E3/mcL OINC) Normal Eos Absolute 0.2 LAB 12353129(L 0.0-0.2 E3/mcL OINC) Normal Basophil 0.0 Absolute Performed By: #### [id number] #### DL WolfeHemo [address] [place], [place] [address] PT Collected: 04/17/2018 Status: F Source: [facility] 11:32 AM [facility] REPOSITORY TYPE CODE TESTS RESULT OUT OF RANGE REFERENCE UNITS LAB 26649116(LO 1.0-1.2 INC) Normal INR 1.1 Result Comment: INR Recommended Therapeuptic Ranges: Prophylaxis/treatment of DVT and PE?2.0-3.0 Prevention of systemic embolism?.2.0-3.0 Mechanical prosthetic values?2.5-3.5 CRITICAL VALUES?.>4.0 LAB 22098027(LOINC) 11.6-14.6 second(s) Normal 14.0 PT Performed By: #### [id number] #### DL Hematology Automated Subsection [facility] [place] [address] SODIUM Collected: 04/17/2018 Status: F Source: [facility] 11:32 AM [facility] REPOSITORY TYPE CODE TESTS RESULT OUT OF RANGE REFERENCE UNITS LAB 50914940(LO 136-145 mEq/L INC) Normal Sodium Lvl 138 Performed By: #### [id number] #### DL [employer] [address] [place] [address] POTASSIUM Collected: 04/17/2018 Status: F Source: [facility] 11:32 AM [facility] REPOSITORY TYPE CODE TESTS RESULT OUT OF RANGE REFERENCE UNITS LAB 78697168(L 3.5-5.1 mEq/L OINC) Normal Potassium Lvl 4.7 Performed By: #### [id number] #### DL [employer] [address] [place] [address] LYTES Collected: 04/17/2018 Status: F Source: [facility] 11:32 AM [facility] REPOSITORY TYPE CODE TESTS RESULT OUT OF RANGE REFERENCE UNITS LAB 38603756(L 136-145 mEq/L OINC) Normal Sodium Lvl 136 LAB 42571384(L 3.5-5.1 mEq/L OINC) Normal Potassium Lvl 4.7 LAB 37781958(L 98-107 mEq/L OINC) Normal Chloride 106 LAB 82772372(L 24.0-30.0 mEq/L OINC) Low CO2 20.1 Performed By: #### [id number] #### DL [employer] [address] [place] [address] BUN Collected: 04/17/2018 Status: F Source: [facility] 11:32 AM [facility] REPOSITORY TYPE CODE TESTS RESULT OUT OF RANGE REFERENCE UNITS LAB 73853397(LO 7-18 mg/dL INC) High BUN 28 Performed By: #### [id number] #### DL [facility] [address] [place] [address] CREATININE Collected: 04/17/2018 Status: F Source: [facility] 11:32 AM [facility] REPOSITORY TYPE CODE TESTS RESULT OUT OF REFERENCE UNITS RANGE LAB 7572350(LO 0.6-1.3 mg/dL INC) High Creatinine 1.5 Performed By: #### [id number] #### DL [facility] [address] [place] [address] EGFR Collected: 04/17/2018 Status: F Source: [facility] 11:32 AM [facility] REPOSITORY Order Comment: Order added by Discern Expert. TYPE CODE TESTS RESULT OUT OF RANGE REFERENCE UNITS LAB 91237818(LO mL/min/1.73 INC) m2 Normal eGFR 35 LAB 05931553(LO mL/min/1.73 INC) m2 Normal eGFR AA 42 Performed By: #### [id number] #### DL [facility] [address] [place] [address] HEP FUNC PANEL Collected: 04/17/2018 Status: F Source: [facility] 11:32 [facility] REPOSITORY TYPE CODE TESTS RESULT OUT OF RANGE REFERENCE UNITS LAB 56069517(L 10-40 Int._Unit/L OINC) Normal ALT 24 LAB 44527433(L 10-42 Int._Unit/L OINC) High AST 44 LAB 64700183(L 3.2-5.0 G/DL OINC) Low Albumin Lvl 3.0 LAB 90212297(L 2.0-4.0 G/DL OINC) Normal Globulin 3.0 LAB 75736480(L 1.1-1.9 ratio OINC) Low A/G Ratio 1.0 LAB 01244443(L 42-121 Int._Unit/L OINC) High Alk Phos 149 LAB 66649551(L .00-.20 mg/dL OINC) High Bili Direct .75 LAB 84562120(L OINC) Normal Bili Indirect 1.6 Result Comment: No established ranges available for the Indirect Biliruben. LAB 79016595(LOINC) 0.2-1.0 mg/dL High Bili Total 2.4 LAB 63954885(LOINC) 6.4-8.3 G/DL Low Total Protein 6.0 Performed By: #### [id number] #### DL [facility] [address] [place] [address] PHOSPHORUS Collected: 04/17/2018 Status: F Source: [facility] 11:32 [facility] REPOSITORY TYPE CODE TESTS RESULT OUT OF RANGE REFERENCE UNITS LAB 51891689(L 2.5-4.6 mg/dL OINC) Normal Phosphorus 3.6 Performed By: #### [id number] #### DL [facility] [place] [address] CBC W/ AUTO DIFF Collected: 04/17/2018 Status: F Source: [facility] 11:32 [facility] TYPE CODE TESTS RESULT OUT OF RANGE REFERENCE UNITS LAB 18456234(L 3.6-11.0 E3/mcL OINC) Normal WBC 3.9 LAB 73768476(L 3.90-5.40 E6/mcL OINC) Low RBC 3.74 LAB 54864391(L 12.0-16.0 G/DL OINC) Low Hgb 10.8 LAB 02822230(L 36.0-48.0 % OINC) Low Hct 32.7 LAB 62981372(L 11.5-14.5 % OINC) High RDW 18.2 LAB 82589299(L 27.0-31.0 pg OINC) Normal MCH 28.8 LAB 44165764(L 33.0-37.0 G/DL OINC) Normal MCHC 33.0 LAB 26962174(L 78.0-100.0 fL OINC) Normal MCV 87.3 LAB 18020985(L 7.4-11.0 fL OINC) Low MPV 7.2 LAB 34038840(L 130-400 E3/mcL OINC) Low Platelet 80 Performed By: #### [id number] #### DL RemHemo [address] [id number] MORPH Collected: 04/17/2018 Status: F Source: ALEVISM 11:32 [facility] REPOSITORY Order Comment: Order Added by Discern Expert. TYPE CODE TESTS RESULT OUT OF REFERENCE UNITS RANGE LAB 11143090( LOINC) RBC Morph SEE Normal MORPHOLOGY LAB 72555082( LOINC) Hypochromasia 1+ Normal LAB 36639607( LOINC) Anisocytosis 1+ Normal Performed By: #### [id number] #### DL RemHemo [facility] [place] [address] [id number] MORPH Collected: 04/17/2018 Status: F Source: ALEVISM 11:32 AM [facility] REPOSITORY TYPE CODE TESTS RESULT OUT OF RANGE REFERENCE UNITS LAB 15928649(L OINC) Normal Platelet DECREASED Estimate LAB 23873928(L OINC) Normal Platelet Morph ENLARGED Performed By: #### [id number] #### DL RemHemo [address] [place] [address] AUTO DIFF Collected: 04/17/2018 Status: F Source: ALEVISM 11:32 [facility] REPOSITORY Order Comment: Order Added by Discern Expert. TYPE CODE TESTS RESULT OUT OF RANGE REFERENCE UNITS LAB 67985341(L 37.0-75.0 % OINC) Normal Neutro Auto 64.7 LAB 04783970(L 20.0-55.0 % OINC) Normal Lymph Auto 20.3 LAB 05233033(L 0.0-10.0 % OINC) Normal Sutter Auto 9.2 LAB 33994370(L 0.0-11.0 % OINC) Normal Eos Auto 4.8 LAB 78475007(L 0.0-2.0 % OINC) Normal Basophil Auto 1.0 LAB 30137747(L 1.4-6.5 E3/mcL OINC) Normal Neutro 2.5 Absolute LAB 77847321(L 1.2-3.4 E3/mcL OINC) Low Lymph Absolute 0.8 LAB 19337796(L 0.0-0.7 E3/mcL OINC) Normal Sutter Absolute 0.4 LAB 62333701(L 0.0-0.7 E3/mcL OINC) Normal Eos Absolute 0.2 LAB 43289430(L 0.0-0.2 E3/mcL OINC) Normal Basophil 0.0 Absolute Performed By: #### [id number] #### DL RemHemo [facility] [facility] [place] [address] CALCIUM Collected: 04/17/2018 Status: F Source: [place] 11:23 AM [facility] REPOSITORY TYPE CODE TESTS RESULT OUT OF RANGE REFERENCE UNITS LAB 18752147(LO 8.4-10.2 mg/dL INC) Normal Calcium Lvl 8.5 Performed By: #### [id number] #### DL [facility] [address] [place] [address] CT CHEST WITHOUT Observed: 04/16/2018 Status: F Source: [place] [facility] 3:23 PM [facility] REPOSITORY EXAM: CT CHEST WITHOUT CONTRAST, 04/16/2018 [...] numbers are related to this dose report {[id number]}: [id number] The dose indicators for CT are the [...] ABDOMEN/PELVIS WITHOUT Observed: 04/16/2018 Status: F Source: [place] [facility] 10:56 AM [facility] REPOSITORY EXAM: CT ABDOMEN/PELVIS WITHOUT CONTRAST, 04/16/2018 [...] numbers are related to this dose report {[id number]}: [id number] The dose indicators for CT are the [...] 5. Other ancillary findings as above. [facility] Collected: 04/08/2018 Status: F Source: [place] 10:26 AM [facility] REPOSITORY TYPE CODE TESTS RESULT OUT OF RANGE REFERENCE UNITS LAB 49517851(L 70-99 mg/dL OINC) High Glucose Lvl 165 LAB 69473789(L 8.4-10.2 mg/dL OINC) Calcium Normal Lvl 8.6 LAB 47872941(L 136-145 mEq/L OINC) Sodium Normal Lvl 139 LAB 00244010(L 3.5-5.1 mEq/L OINC) Normal Potassium Lvl 4.6 LAB 06847256(L 98-107 mEq/L OINC) High Chloride 108 LAB 16093730(L 24.0-30.0 mEq/L OINC) Low CO2 21.5 LAB 30554027(L 7-18 mg/dL OINC) High BUN 21 LAB 9998424(LO 0.6-1.3 mg/dL INC) High Creatinine 1.4 LAB 52562101(L 5.4-30.0 ratio OINC) Normal BUN/Creat Ratio 15.0 Performed By: #### [id number] #### DL [facility] [place] [address] PT Collected: 04/08/2018 Status: F Source: [place] 10:26 AM [facility] REPOSITORY TYPE CODE TESTS RESULT OUT OF RANGE REFERENCE UNITS LAB 27753553(LO 1.0-1.2 INC) High INR 1.4 Result Comment: INR Recommended Therapeuptic Ranges: Prophylaxis/treatment of DVT and PE?2.0-3.0 Prevention of systemic embolism?.2.0-3.0 Mechanical prosthetic values?2.5-3.5 CRITICAL VALUES?.>4.0 LAB 61740900(LOINC) 11.6-14.6 second(s) High PT 15.9 Performed By: #### [id number] #### DL Hematology Automated Subsection [address] [place] [address] HEP FUNC PANEL Collected: 04/08/2018 Status: F Source: [place] 10:26 AM [facility] REPOSITORY TYPE CODE TESTS RESULT OUT OF RANGE REFERENCE UNITS LAB 22410113(L 10-40 Int._Unit/L OINC) Normal ALT 22 LAB 92348446(L 10-42 Int._Unit/L OINC) Normal AST 35 LAB 04143270(L 3.2-5.0 G/DL OINC) Low Albumin Lvl 3.0 LAB 45616277(L 2.0-4.0 G/DL OINC) Normal Globulin 3.1 LAB 55022489(L 1.1-1.9 ratio OINC) Low A/G Ratio 1.0 LAB 82842171(L 42-121 Int._Unit/L OINC) High Alk Phos 132 LAB 65276211(L .00-.20 mg/dL OINC) High Bili Direct .57 LAB 32229843(L OINC) Normal Bili Indirect 1.5 Result Comment: No established ranges available for the Indirect Biliruben. LAB 24197699(LOINC) 0.2-1.0 mg/dL High Bili Total 2.1 LAB 84365431(LOINC) 6.4-8.3 G/DL Low Total Protein 6.1 Performed By: #### [id number] #### DL [facility] [address] [place] [address] EGFR Collected: 04/08/2018 Status: F Source: [place] 10:26 AM [facility] REPOSITORY Order Comment: Order added by Discern Expert. TYPE CODE TESTS RESULT OUT OF RANGE REFERENCE UNITS LAB 86708247(LO mL/min/1.73 INC) m2 Normal eGFR 38 LAB 32608981(LO mL/min/1.73 INC) m2 Normal eGFR AA 46 Performed By: #### [id number] #### DL [facility] [address] [place] [address] CBC W/ AUTO DIFF Collected: 04/08/2018 Status: F Source: [place] 10:26 AM [facility] REPOSITORY TYPE CODE TESTS RESULT OUT OF RANGE REFERENCE UNITS LAB 58358432(L 3.6-11.0 E3/mcL OINC) Low WBC 3.5 LAB 58051862(L 3.90-5.40 E6/mcL OINC) Low RBC 3.81 LAB 87515748(L 12.0-16.0 G/DL OINC) Low Hgb 11.1 LAB 17197421(L 36.0-48.0 % OINC) Low Hct 33.3 LAB 12105083(L 11.5-14.5 % OINC) High RDW 20.4 LAB 57004156(L 27.0-31.0 pg OINC) Normal MCH 29.0 LAB 28666353(L 33.0-37.0 G/DL OINC) Normal MCHC 33.2 LAB 58739640(L 78.0-100.0 fL OINC) Normal MCV 87.4 LAB 70906537(L 7.4-11.0 fL OINC) Low MPV 7.2 LAB 23698199(L 130-400 E3/mcL OINC) Low Platelet 70 Performed By: #### [id number] #### DL [facility] [place] [address] MORPH Collected: 04/08/2018 Status: F Source: [place] 10:26 AM [facility] REPOSITORY Order Comment: Order Added by Discern Expert. TYPE CODE TESTS RESULT OUT OF RANGE REFERENCE UNITS LAB 94912632(L OINC) SEE Normal RBC MORPHOLOGY Morph Performed By: #### [id number] #### DL [facility] [place] [address] ZZPLT MORPH Collected: 04/08/2018 Status: F Source: [place] 10:26 AM [facility] REPOSITORY TYPE CODE TESTS RESULT OUT OF RANGE REFERENCE UNITS LAB 40060023(L OINC) Normal Platelet DECREASED Estimate LAB 89693780(L OINC) Normal Platelet Morph NORMAL Performed By: #### [id number] #### DL [facility] [place] [address] AUTO DIFF Collected: 04/08/2018 Status: F Source: [place] 10:26 AM [facility] REPOSITORY Order Comment: Order Added by Discern Expert. TYPE CODE TESTS RESULT OUT OF RANGE REFERENCE UNITS LAB 94686214(L 37.0-75.0 % OINC) Normal Neutro Auto 58.4 LAB 80564021(L 20.0-55.0 % OINC) Normal Lymph Auto 24.2 LAB 77635229(L 0.0-10.0 % OINC) Normal Sutter Auto 9.5 LAB 29759068(L 0.0-11.0 % OINC) Normal Eos Auto 6.5 LAB 02308566(L 0.0-2.0 % OINC) Normal Basophil Auto 1.4 LAB 32565296(L 1.4-6.5 E3/mcL OINC) Normal Neutro 2.0 Absolute LAB 15813226(L 1.2-3.4 E3/mcL OINC) Low Lymph Absolute 0.8 LAB 78600660(L 0.0-0.7 E3/mcL OINC) Normal Sutter Absolute 0.3 LAB 63501848(L 0.0-0.7 E3/mcL OINC) Normal Eos Absolute 0.2 LAB 15524755(L 0.0-0.2 E3/mcL OINC) Normal Basophil 0.1 Absolute Performed By: #### [id number] #### DL [facility] [place] [address] CBC W/DIFF, AUTOMATED Collected: 03/16/2018 Status: F Source: [place] 6:50 AM [facility] Order Comment: ROOM 104 TYPE CODE [...] Normal 1+ Performed By: #### L100.0100 #### [facility] [address] [place], [place], [address] COMPREHENSIVE METABOLIC Collected: 03/16/2018 Status: F Source: [facility] 6:50 AM [facility] Order Comment: ROOM 104 TYPE CODE [...] GAP 12 Performed By: #### L500.4050 #### [facility] [address] [place], [address] AMMONIA Collected: 03/09/2018 Status: F Source: [place] 10:00 AM [facility] Order Comment: ROOM 104 TYPE CODE TESTS RESULT OUT OF REFERENCE UNITS RANGE LAB L503.5510 11-32 umol/L High AMMONIA 88.0 Performed By: #### L503.5510 #### [facility] [address] [place], [address] CBC W/DIFF, AUTOMATED Collected: 03/09/2018 Status: F Source: [place] 10:00 AM [facility] Order Comment: ROOM 104 TYPE CODE [...] 1+ ANISO. Performed By: #### L100.0100 #### [facility] [address] [place], [address] COMPREHENSIVE METABOLIC Collected: 03/09/2018 Status: F Source: [facility] 10:00 AM [facility] Order Comment: ROOM 104 TYPE CODE [...] GAP 11 Performed By: #### L500.4050 #### [facility] [address] [place], [place], [address] MRI BRAIN W/O Observed: 03/05/2018 Status: F Source: [place] CONTRAST 1:50 PM [facility] REPOSITORY Exam Date/Time: 03/05/2018 14:33 EDT Reason for Exam: NEW HEADACHE Report STUDY: MRI Brain w/o Contrast; 03/05/2018 2:33 pm INDICATION: NEW HEADACHE. Dizziness, headaches, frequent falls, headache starting and left sabianism and across forehead than 2 in-house tire head for 3 months. Fell with multiple alexander in head at the end of January 2018. COMPARISON: 01/31/[address] ACCESSION NUMBER(S): [id number] ORDERING CLINICIAN: Srini Rodríguez TECHNIQUE: Axial T2, [...] pm Signed by: Manuel Stroud MD Technologist: [facility] AMMONIA Collected: 03/02/2018 Status: F Source: [place] 8:05 AM [facility] REPOSITORY TYPE CODE TESTS RESULT OUT OF REFERENCE UNITS RANGE LAB L503.5510 11-32 umol/L High AMMONIA 82.0 Performed By: #### L503.5510 #### [facility] [address] [place], [place], [address] CBC W/DIFF, AUTOMATED Collected: 03/02/2018 Status: F Source: [place] 8:05 AM [facility] REPOSITORY TYPE CODE TESTS RESULT OUT OF [...] 1+ ANISO. Performed By: #### L100.0100 #### [facility] [address] [facility]. [place], [place], [address] VITAMIN B12 Collected: 03/02/2018 Status: F Source: [place] 8:05 AM [facility]POS[facility] TYPE CODE TESTS RESULT OUT OF RANGE REFERENCE UNITS [facility] L503.0105 211-911 pg/mL Normal Vitamin B12 877 Performed By: #### L503.0105 #### [facility] [address] [place], [place], [address] COMPREHENSIVE METABOLIC Collected: 03/02/2018 Status: F Source: [place] 8:05 AM [facility] Order Comment: Is Patient Taking Vitamins [...] Performed By: #### L500.4050, L501.9520, L506.0250 #### [facility] [address] [place], [address] THYROID STIM HORMONE Collected: 03/02/2018 Status: F Source: [place] (TSH) 8:05 AM [facility] Order Comment: Is Patient Taking Vitamins or Folic Acid Supplements? N TYPE CODE TESTS RESULT OUT OF RANGE REFERENCE UNITS LAB L501.9520 0.358-3.74 uIU/mL High TSH 4.94 Performed By: #### L500.4050, L501.9520, L506.0250 #### [facility] [address] [place], [address] FOLATES, (FOLIC ACID) Collected: 03/02/2018 Status: F Source: [place] 8:05 AM [facility] Order Comment: Is Patient Taking Vitamins or Folic Acid Supplements? N TYPE CODE TESTS RESULT OUT OF RANGE REFERENCE UNITS LAB L506.0250 3.1-55.4 ng/mL Normal FOLATES 6.90 Performed By: #### L500.4050, L501.9520, L506.0250 #### [facility] [address] [place], [address] MARY + PROTEIN ELECT, Collected: 03/02/2018 Status: F Source: [place]UM 8:05 AM [facility] Order Comment: Is Patient Fasting? Y TYPE CODE TESTS RESULT OUT OF RANGE REFERENCE UNITS LAB L3100.3500 6.0-8.5 g/dL Normal PROTEIN,TOTAL 6.0 LAB L3200.0505 107-0648 mg/dL Normal IMMUNO G 1550 LAB L3200.1400 87-352 mg/dL High IMMUNO A 495 LAB L3200.1500 26-217 mg/dL Normal IMMUNOGL M 149 LAB L3200.1510 2.9-4.4 g/dL Low ALBUMIN 2.8 LAB L3200.1520 0.0-0.4 g/dL Normal XIOEM-2-CGOG 0.2 LAB L3200.1530 0.4-1.0 g/dL Normal NSHMB-3-ZMRE 0.4 LAB L3200.1540 0.7-1.3 g/dL Normal BETA [...] scan will follow via computer, mail, or local sales associate delivery. Performed at: [facility] [id number] Corporate Executive: Isaiah Blake PhD, Phone: [phone] Performed By: #### L3100.3425 #### [facility] (refer to report for specific site) refer to report for address and phone number [facility] Collected: 03/02/2018 Status: F [facility] Order Comment: Is Patient Fasting? Y [...] 03/02/2018 Status: F Source: [place] 8:05 AM [facility] Order Comment: Is Patient Fasting? Y TYPE CODE TESTS RESULT OUT OF RANGE REFERENCE UNITS LAB L3200.8264 166-5931 mg/dL Normal IMMUNO G 1454 Performed By: #### L3130.0010, L3200.1300, L3200.1400, L3200.1500 #### [facility] (refer to report for specific site) refer to report for address and phone number IMMUNOGLOBULIN A Collected: 03/02/2018 Status: F Source: [place] 8:05 AM [facility] Order Comment: Is Patient Fasting? Y TYPE CODE TESTS RESULT OUT OF REFERENCE UNITS RANGE LAB L3200.1400 87-352 mg/dL High IMMUNO A 502 Performed By: #### L3130.0010, L3200.1300, L3200.1400, L3200.1500 #### [facility] (refer to report for specific site) refer to report for address and phone number IMMUNOGLOBULIN M Collected: 03/02/2018 Status: F Source: [place] 8:05 AM [facility] Order Comment: Is Patient Fasting? Y TYPE CODE TESTS RESULT OUT OF RANGE REFERENCE UNITS LAB L3200.1500 26-217 mg/dL Normal IMMUNOGL M 150 Result Comment: Performed at: [facility] [place] [id number] Corporate Executive: Isaiah Blake PhD, Phone: [phone] Performed By: #### L3130.0010, L3200.1300, L3200.1400, L3200.1500 #### [facility] (refer to report for specific site) refer to report for address and phone number COMPREHENSIVE METABOLIC Collected: 02/23/2018 Status: F [facility] Order Comment: 104 NOT FASTING TYPE [...] GAP 8 Performed By: #### L500.4050 #### [facility] [address] [place], [address] AMMONIA Collected: 02/23/2018 Status: F Source: [place] 8:45 AM [facility] Order Comment: 104 TYPE CODE TESTS RESULT OUT OF REFERENCE UNITS RANGE LAB L503.5510 11-32 umol/L High AMMONIA 75.0 Performed By: #### L503.5510 #### [facility] [address] [place], [address] CBC W/DIFF, AUTOMATED Collected: 02/23/2018 Status: F Source: [place] 8:45 [facility] Order [...] Normal 1+ Performed By: #### L100.0100 #### [facility] [address] [facility] [place], [place], [address] AMMONIA Collected: 02/17/2018 Status: F Source: [place] 7:20 AM [facility] Order Comment: ROOM 104 TYPE CODE TESTS RESULT OUT OF REFERENCE UNITS RANGE LAB L503.5510 11-32 umol/L High AMMONIA 76.0 Performed By: #### L503.5510 #### [facility] [address] [facility] [place], [address] CBC W/DIFF, AUTOMATED Collected: 02/17/2018 Status: F Source: [place] 7:20 AM [facility] Order Comment: ROOM 104 TYPE CODE [...] Normal 2+ Performed By: #### L100.0100 #### [facility] [address] [place], [place], [address] COMPREHENSIVE METABOLIC Collected: 02/17/2018 Status: F [facility] AM [facility] Order Comment: ROOM 104 TYPE CODE [...] GAP 8 Performed By: #### L500.4050 #### [facility] [place], [address] VENOUS ACCESS Observed: 02/16/2018 Status: F Source: [place] [facility] 4:37 PM [facility] REPOSITORY EXAM: IR VENOUS ACCESS REMOVAL, 02/16/2018 [...] Status: F Source: [place] LEVEL 2:00 PM [facility] Order Comment: Time Medication is to [...] (Ventilator/Healtcare Associated) -Sepsis PLEASE CONTACT PHARMACY SERVICES (#[id number]) FOR INTERPRETATION OF RESULTS. Performed By: #### L501.8820 #### [facility] [address] [place], [address] CHEM 6 - CHRI Collected: 02/10/2018 Status: F Source: [facility] 7:51 AM [facility] REPOSITORY TYPE CODE TESTS RESULT OUT OF REFERENCE UNITS RANGE LAB BUN 7-22 mg/dL BUN 20 LAB CREA 0.50-1.20 mg/dL Creatinine 1.17 LAB NA 133-143 mmol/L Sodium 138 LAB K 3.5-5.0 mmol/L Potassium 4.0 LAB CL 98-108 mmol/L Chloride 108 LAB CO2 22-30 mmol/L Carbon Dioxide 23 LAB GFR >60 mL/min/1.73 Low sqM Est GFR,non 47 Dutch LAB GFRA >60 mL/min/1.73 Low sqM Est GFR, 57 LAB GAP 7-17 mmol/L Anion Gap 11 Performed By: #### CBCDFJ #### E[facility], [facility] [address] [place], [place] [address] CBC WITH DIFF ENOCH Collected: 02/10/2018 Status: F Source: [facility] 7:51 AM [facility] REPOSITORY TYPE CODE TESTS RESULT [...] 0.78 Low LAB AMONO 0.24-0.86 K/uL Abs Sutter 0.35 LAB AEOS <0.37 K/uL Abs Eos 0.33 LAB ABASO <0.09 K/uL Abs Baso 0.03 Performed By: #### CBCDFJ #### [facility], [facility] [address] [place], [place] [address] VANCOMYCIN, PEAK LEVEL Collected: 02/09/2018 Status: F Source: [place] 5:05 PM [facility] Order Comment: Time Medication is to [...] - 26.0 mcg/dL PLEASE CONTACT PHARMACY SERVICES (#[id number]) FOR INTERPRETATION OF RESULTS Performed By: #### L501.8800 #### [place] [facility] [address] [place], [address] GLUCOSE POC Collected: 02/06/2018 Status: F Source: [place] 7:12 AM [facility] REPOSITORY TYPE CODE TESTS RESULT OUT OF RANGE REFERENCE UNITS LAB 10489999(LO 70-99 mg/dL INC) Normal Glucose POC 87 Performed By: #### [id number] #### DL POC Subsection [address] [place] [address] CMP Collected: 02/06/2018 Status: F Source: [place] 5:25 AM [facility] REPOSITORY TYPE CODE TESTS RESULT OUT OF RANGE REFERENCE UNITS LAB 72247719(L 70-99 mg/dL OINC) Glucose Normal Lvl 90 LAB 25902361(L 8.4-10.2 mg/dL OINC) Calcium Normal Lvl 8.7 LAB 45286042(L 136-145 mEq/L OINC) Sodium Normal Lvl 140 LAB 68148923(L 3.5-5.1 mEq/L OINC) Normal Potassium Lvl 4.0 LAB 49421313(L 98-107 mEq/L OINC) High Chloride 112 LAB 35265913(L 24.0-30.0 mEq/L OINC) Low CO2 23.6 LAB 31102226(L 7-18 mg/dL OINC) BUN Normal 15 LAB 6688334(LO 0.6-1.3 mg/dL INC) Normal Creatinine 1.2 LAB 86298710(L 42-121 Int._Unit/ OINC) High L Alk Phos 155 LAB 31511175(L 0.2-1.0 mg/dL OINC) High Bili Total 2.3 LAB 77579308(L 3.2-5.0 G/DL OINC) Low Albumin Lvl 2.6 LAB 79399840(L 6.4-8.3 G/DL OINC) Low Total Protein 6.3 LAB 88347059(L 10-40 Int._Unit/ OINC) L ALT Normal 16 LAB 15226869(L 10-42 Int._Unit/ OINC) L AST Normal 41 LAB 42265642(L 5.4-30.0 ratio OINC) Normal BUN/Creat Ratio 12.5 LAB 49676305(L 2.0-4.0 G/DL OINC) Globulin Normal 3.7 LAB 17402663(L 1.1-1.9 ratio OINC) Low A/G Ratio 0.7 Performed By: #### [id number] #### DL [facility] [address] [place] [address] AMMONIA Collected: 02/06/2018 Status: F Source: [place] 5:25 AM [facility] REPOSITORY TYPE CODE TESTS RESULT OUT OF RANGE REFERENCE UNITS LAB 67376833(LO 7-35 mcmol INC) Normal Ammonia 30 Performed By: #### [id number] #### DL [facility] [place] [address] EGFR Collected: 02/06/2018 Status: F Source: [place] 5:25 AM [facility] REPOSITORY Order Comment: Order added by Discern Expert. TYPE CODE TESTS RESULT OUT OF RANGE REFERENCE UNITS LAB 34490701(LO mL/min/1.73 INC) m2 Normal eGFR 45 LAB 20695384(LO mL/min/1.73 INC) m2 Normal eGFR AA 55 Performed By: #### [id number] #### DL [facility] [place] [address] CBC W/ MANUAL DIFF Collected: 02/06/2018 Status: F Source: [place] 5:25 AM [facility] REPOSITORY TYPE CODE TESTS RESULT OUT OF REFERENCE UNITS RANGE LAB 87072409(LO 3.6-11.0 E3/mcL INC) Low WBC 3.3 LAB 91700168(LO 3.90-5.40 E6/mcL INC) Low RBC 3.80 LAB 56044232(LO 12.0-16.0 G/DL INC) Low Hgb 9.6 LAB 53437596(LO 36.0-48.0 % INC) Low Hct 29.5 LAB 77280520(LO 11.5-14.5 % INC) High RDW 20.8 LAB 34330936(LO 27.0-31.0 pg INC) Low MCH 25.3 LAB 99479918(LO 33.0-37.0 G/DL INC) Low MCHC 32.5 LAB 97865890(LO 78.0-100.0 fL INC) Low MCV 77.7 LAB 07697046(LO 7.4-11.0 fL INC) Low MPV 7.2 LAB 64850265(LO 130-400 E3/mcL INC) Low Platelet 72 Performed By: #### [id number] #### DL [facility] [place] [address] MANUAL DIFF Collected: 02/06/2018 Status: F Source: [place] 5:25 AM [facility] REPOSITORY Order Comment: Order added by Discern Expert. TYPE CODE TESTS RESULT OUT OF REFERENCE UNITS RANGE LAB 36625513( 37-75 % LOINC) Segs Man 57 Normal LAB 05387983( 0-1 LOINC) Band Man 3 High LAB 74198677( 14-48 % LOINC) Lymph Man 30 Normal LAB 06787214( 1-11 % LOINC) Monocyte Man 5 Normal LAB 14721828( 0-5 % LOINC) Eos Man 5 Normal LAB 29278053( 0-1 % LOINC) Basophil Man 0 Normal LAB 15404481( LOINC) RBC Morph SEE Normal MORPHOLOGY LAB 68281741( LOINC) Hypochromasia 1+ Normal LAB 21063164( LOINC) Poikilocytosis 1+ Normal LAB 02850009( LOINC) Polychromasia 1+ Normal LAB 50518062( LOINC) Anisocytosis 2+ Normal Performed By: #### [id number] #### DL RemHemo [address] [place] [address] ZZPLT MORPH Collected: 02/06/2018 Status: F Source: [place] 5:25 AM [facility] TYPE CODE TESTS RESULT OUT OF RANGE REFERENCE UNITS LAB 75515374(L OINC) Normal Platelet DECREASED Estimate LAB 48645637(L OINC) Normal Platelet Morph NORMAL Performed By: #### [id number] #### DL RemHemo [address] [place] [address] .MANUAL ABS Collected: 02/06/2018 Status: F Source: [place] 5:25 AM [facility] REPOSITORY Order Comment: Order added by Discern Expert. TYPE CODE TESTS RESULT OUT OF RANGE REFERENCE UNITS LAB 99529990(L 1.4-6.5 10x3/ OINC) Normal Segs Abs Man 1.9 LAB 52923722(L 1.2-3.4 10x3/ OINC) Low Lymph Abs Man 1.0 LAB 05797550(L 0.0-0.7 10x3/ OINC) Normal Sutter Abs Man 0.2 LAB 48301965(L 0.0-0.5 10x3/ OINC) Normal Eos Abs Man 0.2 LAB 73388841(L 0.0-0.2 10x3/ OINC) Normal Basophil Abs 0.0 Man Performed By: #### [id number] #### DL RemHemo [address] [place] [address] GLUCOSE POC Collected: 02/05/2018 Status: F Source: [place] 8:46 PM [facility] REPOSITORY TYPE CODE TESTS RESULT OUT OF REFERENCE UNITS RANGE LAB 95411563(LO 70-99 mg/dL INC) High Glucose POC 171 Performed By: #### [id number] #### DL POC Subsection [address] [place] [address] GLUCOSE POC Collected: 02/05/2018 Status: F Source: [place] 4:57 PM [facility] REPOSITORY TYPE CODE TESTS RESULT OUT OF RANGE REFERENCE UNITS LAB 76334556(LO 70-99 mg/dL INC) Normal Glucose POC 84 Performed By: #### [id number] #### DL POC Subsection [address] [place] [address] GLUCOSE POC Collected: 02/05/2018 Status: F Source: [place] 11:23 AM [facility] REPOSITORY TYPE CODE TESTS RESULT OUT OF REFERENCE UNITS RANGE LAB 09049501(LO 70-99 mg/dL INC) High Glucose POC 142 Performed By: #### [id number] #### DL POC Subsection [address] [place] [address] CBC W/DIFF, AUTOMATED Collected: 01/19/2018 Status: F Source: [place] 11:30 AM [facility] [place] [place] TYPE CODE TESTS RESULT OUT OF [...] 0.81 Performed By: #### L100.0100, L101.9900 #### [facility] [address] [place], [place], [address] ERYTHROCYTE SED RATE Collected: 01/19/2018 Status: F Source: [place] 11:30 AM [facility] [place] [place]POS[place] TYPE CODE TESTS RESULT OUT OF RANGE REFERENCE UNITS LAB L102.0000 0-30 mm/hr Normal SED RATE 9 Performed By: #### L100.0100, L101.9900 #### [facility] [address] [place], [address] VANCOMYCIN, TROUGH Collected: 01/19/2018 Status: F Source: [place] 11:30 AM [facility] [place]POSIT[facility] Order Comment: Time Medication is to [...] (Ventilator/Healtcare Associated) -Sepsis PLEASE CONTACT PHARMACY SERVICES (#[id number]) FOR INTERPRETATION OF RESULTS. Performed By: #### [id number] #### [facility] [address] [place], [place], [id number] BASIC METABOLIC Collected: 01/19/2018 Status: F Source: [place] PROFILE (BMP) 11:30 AM [facility] [place] TYPE CODE TESTS RESULT OUT OF [...] Performed By: #### L500.2500, L500.3400, L501.6710 #### [facility] [address] [place], [address] LIVER PROFILE Collected: 01/19/2018 Status: F Source: [place] 11:30 AM [facility] [place]POS[place] TYPE CODE TESTS RESULT OUT OF [...] Performed By: #### L500.2500, L500.3400, L501.6710 #### [facility] [address] [place], [address] CRP Collected: 01/19/2018 Status: F Source: [place] 11:30 AM [facility] [place] REPOS[place] TYPE CODE TESTS RESULT OUT OF RANGE REFERENCE UNITS LAB L501.6710 0.0-3.0 mg/L High 9.50 C-REACTIVE PROT Result Comment: C-Reactive Protein (CRP) provides useful information for the diagnosis, therapy and monitoring of inflammatory processes and associated diseases. For the evaluation of Relative Risk for Cardiovascular Disease, a High Sensitivity CRP (HSCRP) should be ordered. Performed By: #### L500.2500, L500.3400, L501.6710 #### [facility] [address] [facility] [place], [address] *POC GLUCOSE BATTERY Collected: 01/15/2018 Status: F Source: [facility] 7:42 AM [facility] REPOSITORY TYPE CODE TESTS RESULT OUT OF REFERENCE UNITS RANGE LAB GLUP 70-99 mg/dL High Glucose (poc 123 device) Result Comment: No BRAVE per RN: PATIENT TYPE LAB PCSTYP *POC Capillary SAMPLE TYPE Blood *POC GLUCOSE BATTERY Collected: 01/14/2018 Status: F Source: [facility] 10:13 PM [facility] REPOSITORY TYPE CODE TESTS RESULT OUT OF REFERENCE UNITS RANGE LAB GLUP 70-99 mg/dL High Glucose (poc 185 device) Result Comment: No BRAVE per RN: PATIENT TYPE LAB PCSTYP *POC Capillary SAMPLE TYPE Blood *POC GLUCOSE BATTERY Collected: 01/14/2018 Status: F Source: [facility] 4:08 PM [facility] REPOSITORY TYPE CODE TESTS RESULT OUT OF REFERENCE UNITS RANGE LAB GLUP 70-99 mg/dL High Glucose (poc 165 device) Result Comment: No BRAVE per RN: PATIENT TYPE LAB PCSTYP *POC Capillary SAMPLE TYPE Blood *POC GLUCOSE BATTERY Collected: 01/14/2018 Status: F Source: [facility] 11:23 AM [facility] REPOSITORY TYPE CODE TESTS RESULT OUT OF REFERENCE UNITS RANGE LAB GLUP 70-99 mg/dL High Glucose (poc 218 device) Result Comment: No BRAVE per RN: PATIENT TYPE LAB PCSTYP *POC Capillary SAMPLE TYPE Blood XR CHEST PORTABLE Observed: 01/14/2018 Status: F Source: [facility] 9:42 AM [facility] REPOSITORY EXAM: XR CHEST PORTABLE, 01/13/2018 23:09 [...] GLUCOSE BATTERY Collected: 01/14/2018 Status: F Source: [facility] 7:49 AM [facility] REPOSITORY TYPE CODE TESTS RESULT OUT OF REFERENCE UNITS RANGE LAB GLUP 70-99 mg/dL High Glucose (poc 116 device) Result Comment: No BRAVE per RN: PATIENT TYPE LAB PCSTYP *POC Capillary SAMPLE TYPE Blood HEMOGRAM (CBC AND Collected: 01/14/2018 Status: F Source: [facility] [place]) 3:31 AM [facility] REPOSITORY TYPE CODE TESTS RESULT [...] PTPTT, CHM7, HFP, MGO, TSH #### [facility] [address] [place] [id number] [place] [address] [place] [address] PT*PTT Collected: 01/14/2018 Status: F Source: [facility] 3:31 AM [facility] REPOSITORY TYPE CODE TESTS RESULT OUT OF RANGE REFERENCE UNITS LAB PT 11.9-14.2 sec High PT 18.6 LAB INR 0.9-1.1 High INR 1.6 LAB PTT 24.0-34.3 sec High PTT 38.8 Performed By: #### HEMOGC, PTPTT, CHM7, HFP, MGO, TSH #### [facility] [address] [place] [id number] [place] [address] [address] CHEM 7 Collected: 01/14/2018 Status: F Source: [facility] 3:31 AM [facility] REPOSITORY TYPE CODE TESTS RESULT [...] >60 mL/min/1.73 Low sqM Est GFR,non 43 Dutch LAB GFRA >60 mL/min/1.73 Low sqM Est GFR, 51 Performed By: #### HEMOGC, PTPTT, CHM7, HFP, MGO, TSH #### [facility] [address] [place] [address] [place] [address] HEPATIC FUNCTION Collected: 01/14/2018 Status: F Source: [facility] 3:31 AM [facility] REPOSITORY TYPE CODE TESTS RESULT [...] HEMOGC, PTPTT, CHM7, HFP, MGO, TSH #### [facility] [address] [place] [address] [place] [address] MAGNESIUM Collected: 01/14/2018 Status: F Source: [facility] 3:31 AM [facility] REPOSITORY TYPE CODE TESTS RESULT OUT OF REFERENCE UNITS RANGE LAB MG 1.6-2.6 mg/dL Magnesium 1.9 Performed By: #### HEMOGC, PTPTT, CHM7, HFP, MGO, TSH #### [facility] [address] [place] [address] [place] [address] TSH, HIGH SENSITIVITY Collected: 01/14/2018 Status: F Source: [facility] 3:31 AM [facility] REPOSITORY TYPE CODE TESTS RESULT OUT OF REFERENCE UNITS RANGE LAB TSH 0.550-4.780 uIU/mL TSH, High Sensitivity 3.200 Performed By: #### HEMOGC, PTPTT, CHM7, HFP, MGO, TSH #### [facility] [address] [place] [address] [place] [address] AMMONIA Collected: 01/14/2018 Status: F Source: [facility] 3:31 AM [facility] REPOSITORY TYPE CODE TESTS RESULT OUT OF REFERENCE UNITS RANGE LAB NH3 6-47 umol/L High Ammonia 70 Performed By: #### NH3B #### [facility] [address] [place] [address] [facility] [address] [place], [place] [address] *POC GLUCOSE BATTERY Collected: 01/13/2018 Status: F Source: [facility] 8:30 PM [facility] REPOSITORY TYPE CODE TESTS RESULT OUT OF REFERENCE UNITS RANGE LAB GLUP 70-99 mg/dL High Glucose (poc 210 device) Result Comment: No BRAVE per RN: PATIENT TYPE LAB PCSTYP *POC Capillary SAMPLE TYPE Blood *POC GLUCOSE BATTERY Collected: 01/13/2018 Status: F Source: [facility] 6:11 PM [facility] REPOSITORY TYPE CODE TESTS RESULT OUT OF REFERENCE UNITS RANGE LAB GLUP 70-99 mg/dL High Glucose (poc 197 device) Result Comment: No BRAVE per RN: PATIENT TYPE LAB PCSTYP *POC Capillary SAMPLE TYPE Blood *POC GLUCOSE BATTERY Collected: 01/13/2018 Status: F Source: [facility] 3:44 PM [facility] REPOSITORY TYPE CODE TESTS RESULT OUT OF REFERENCE UNITS RANGE LAB GLUP 70-99 mg/dL High Glucose (poc 116 device) Result Comment: Notified RNread back No BRAVE per RN: PATIENT TYPE LAB PCSTYP *POC Capillary SAMPLE TYPE Blood *POC GLUCOSE BATTERY Collected: 01/13/2018 Status: F Source: [facility] 9:00 AM [facility] REPOSITORY TYPE CODE TESTS RESULT OUT OF REFERENCE UNITS RANGE LAB GLUP 70-99 mg/dL Glucose (poc 94 device) Result Comment: No BRAVE per RN: PATIENT TYPE LAB PCSTYP *POC Capillary SAMPLE TYPE Blood Observed: 01/13/2018 Status: F Source: [facility] BLOOD:ROUTINE I 4:05 AM [facility] REPOSITORY SOURCE: BLOOD, PERIPHERAL: Site not specified RESULT: NO GROWTH DAY 5 OF 5 REPORT STATUS: 01/18/2018 FINAL Performed By: #### FAST #### [place] [address] Blood Cultures processed at: [facility] CBC WITH DIFF ENOCH Collected: 01/13/2018 Status: F Source: [facility] 4:04 AM [facility] REPOSITORY TYPE CODE TESTS RESULT [...] 0.77 Low LAB AMONO 0.24-0.86 K/uL Abs Sutter 0.32 LAB AEOS <0.37 K/uL Abs Eos 0.20 LAB ABASO <0.09 K/uL Abs Baso <0.04 Performed By: ###Kannan VASQUEZ #### [facility] [address] [place] [address] CHEM 7 ED - CHRI Collected: 01/13/2018 Status: F Source: [facility] 4:04 [facility] REPOSITORY TYPE CODE TESTS RESULT [...] >60 mL/min/1.73 Low sqM Est GFR,non 38 Dutch LAB GFRA >60 mL/min/1.73 Low sqM Est GFR, 46 LAB GAP 7-17 mmol/L Anion Gap 11 LAB BC BUN/CREA Ratio 15 LAB OSMC 278-305 mOsm/kg Osmolality 294 (Calc) Performed By: #### PEDRO #### [facility] [address] [place] [address] TROPONIN - CHRI Collected: 01/13/2018 Status: F Source: [facility] 4:04 [facility] REPOSITORY TYPE CODE TESTS RESULT OUT OF REFERENCE UNITS RANGE LAB TROP <0.11 ng/mL Troponin I 0.01 Performed By: #### PEDRO #### [facility] [address] [place] [address] GASES - BLOOD Collected: 01/12/2018 Status: F Source: [place] 11:14 PM [facility] REPOSITORY TYPE CODE TESTS RESULT OUT OF RANGE REFERENCE UNITS LAB [id number](L OINC) Arterial Normal Sample Type. LAB 82877310(L 7.350-7.450 OINC) 7.384 Normal pH. LAB 62634941(L 35.0-45.0 mmHg OINC) 40.9 Normal P CO2. LAB 30171725(L 80-100 mmHg OINC) Low 32 P O2. LAB 51687437(L 22-28 mmol/L OINC) 26 Normal CO2 Tot. LAB 68842398(L 22.0-26.0 mmol/L OINC) 24.5 Normal HCO#. LAB 46955039(L 95-100 % OINC) Low 62 O2 Sat. LAB 81560503(L -2-3 mmol/L OINC) -1 Normal Base Excess. LAB 44236161(L % OINC) 21 Normal FiO2. LAB 73424088(L OINC) L rad Normal Sample Site. LAB 41699307(L OINC) Neg Normal Allens Test. LAB 68969665(L OINC) Room Air Normal O2 Devices. LAB 43659281(L OINC) NOT Normal Vent Mode. CALCULATED LAB 57054459(L OINC) NOT Normal Set CALCULATED RR(b/min). LAB 79769347(L OINC) NOT Normal CPAP/PEEP(cmH CALCULATED 2O). LAB 63686587(L OINC) NOT Normal Tidal CALCULATED Volume(mL). LAB 17418353(L OINC) NOT Normal PSV/IP(cmH2O) CALCULATED . LAB 59969356(L DegC OINC) NOT Normal Patient Temp. CALCULATED LAB 53543527(L OINC) [id number] Normal OPID. Performed By: #### [id number] #### DL POC Subsection [address] [place] [address] PT Collected: 01/12/2018 Status: F Source: [place] 11:13 PM [facility] REPOSITORY TYPE CODE TESTS RESULT OUT OF RANGE REFERENCE UNITS LAB 72128325(LO 1.0-1.2 INC) High INR 1.5 Result Comment: INR Recommended Therapeuptic Ranges: Prophylaxis/treatment of DVT and PE?2.0-3.0 Prevention of systemic embolism?.2.0-3.0 Mechanical prosthetic values?2.5-3.5 CRITICAL VALUES?.>4.0 LAB 28563969(LOINC) 11.6-14.6 second(s) High PT 17.1 Performed By: #### [id number] #### DL Hematology Automated Subsection [address] [place] [address] CBC W/ AUTO DIFF Collected: 01/12/2018 Status: F Source: [place] 11:13 [facility] REPOSITORY TYPE CODE TESTS RESULT OUT OF RANGE REFERENCE UNITS LAB 39562697(L 3.6-11.0 E3/mcL OINC) Low WBC 2.8 LAB 93610017(L 3.90-5.40 E6/mcL OINC) Low RBC 2.89 LAB 22427672(L 12.0-16.0 G/DL OINC) Low Hgb 8.0 LAB 43854673(L 36.0-48.0 % OINC) Low Hct 24.4 LAB 10095383(L 11.5-14.5 % OINC) High RDW 20.9 LAB 66646760(L 27.0-31.0 pg OINC) Normal MCH 27.7 LAB 98964773(L 33.0-37.0 G/DL OINC) Low MCHC 32.8 LAB 67522665(L 78.0-100.0 fL OINC) Normal MCV 84.4 LAB 06616238(L 7.4-11.0 fL OINC) Low MPV 6.8 LAB 33993089(L 130-400 E3/mcL OINC) Low Platelet 75 Performed By: #### [id number] #### DL [employer] [address] [id number] MORPH Collected: 01/12/2018 Status: F Source: [place] 11:13 [facility] REPOSITORY Order Comment: Order Added by Discern Expert. TYPE CODE TESTS RESULT OUT OF REFERENCE UNITS RANGE LAB 00134045( LOINC) RBC Morph SEE Normal MORPHOLOGY LAB 07903098( LOINC) Hypochromasia 2+ Normal LAB 60379285( LOINC) Anisocytosis 1+ Normal Performed By: #### [id number] #### DL [facility] [id number] ZZPLT MORPH Collected: 01/12/2018 Status: F Source: [place] 11:13 [facility] REPOSITORY TYPE CODE TESTS RESULT OUT OF RANGE REFERENCE UNITS LAB 30310769(L OINC) Normal Platelet DECREASED Estimate LAB 18365487(L OINC) Normal Platelet Morph NORMAL Performed By: #### [id number] #### DL Hen[place] [place], [place] [address] AUTO DIFF Collected: 01/12/2018 Status: F Source: [place] 11:13 [facility] REPOSITORY Order Comment: Order Added by Discern Expert. TYPE CODE TESTS RESULT OUT OF RANGE REFERENCE UNITS LAB 51720036(L 37.0-75.0 % OINC) Normal Neutro Auto 47.2 LAB 68834401(L 20.0-55.0 % OINC) Normal Lymph Auto 29.2 LAB 86065749(L 0.0-10.0 % OINC) High Sutter Auto 13.8 LAB 22952659(L 0.0-11.0 % OINC) Normal Eos Auto 8.4 LAB 46330045(L 0.0-2.0 % OINC) Normal Basophil Auto 1.4 LAB 60119323(L 1.4-6.5 E3/mcL OINC) Low Neutro 1.3 Absolute LAB 57674766(L 1.2-3.4 E3/mcL OINC) Low Lymph Absolute 0.8 LAB 72263902(L 0.0-0.7 E3/mcL OINC) Normal Sutter Absolute 0.4 LAB 17198194(L 0.0-0.7 E3/mcL OINC) Normal Eos Absolute 0.2 LAB 54695434(L 0.0-0.2 E3/mcL OINC) Normal Basophil 0.0 Absolute Performed By: #### [id number] #### DL [facility] [place] [id number] CMP Collected: 01/12/2018 Status: F Source: [place] 11:13 [facility] REPOSITORY TYPE CODE TESTS RESULT OUT OF RANGE REFERENCE UNITS LAB 86268016(L 70-99 mg/dL OINC) High Glucose Lvl 131 LAB 21156681(L 8.4-10.2 mg/dL OINC) Calcium Normal Lvl 8.8 LAB 39980034(L 136-145 mEq/L OINC) Sodium Normal Lvl 138 LAB 24738973(L 3.5-5.1 mEq/L OINC) Normal Potassium Lvl 4.1 LAB 73152252(L 98-107 mEq/L OINC) Chloride Normal 105 LAB 95501877(L 24.0-30.0 mEq/L OINC) CO2 Normal 24.0 LAB 82149408(L 7-18 mg/dL OINC) High BUN 21 LAB 4891092(LO 0.6-1.3 mg/dL INC) High Creatinine 1.5 LAB 17096391(L 42-121 Int._Unit/ OINC) L Alk Phos Normal 121 LAB 29859440(L 0.2-1.0 mg/dL OINC) High Bili Total 3.4 LAB 69911456(L 3.2-5.0 G/DL OINC) Albumin Normal Lvl 3.2 LAB 07720832(L 6.4-8.3 G/DL OINC) Total Normal Protein 6.5 LAB 97481255(L 10-40 Int._Unit/ OINC) L ALT Normal 19 LAB 15313890(L 10-42 Int._Unit/ OINC) High L AST 49 LAB 74375071(L 5.4-30.0 ratio OINC) Normal BUN/Creat Ratio 14.0 LAB 84300372(L 2.0-4.0 G/DL OINC) Globulin Normal 3.3 LAB 47270905(L 1.1-1.9 ratio OINC) Low A/G Ratio 1.0 Performed By: #### [id number] #### DL [employer] [place] [address] EGFR Collected: 01/12/2018 Status: F Source: [place] 11:13 PM [facility] REPOSITORY Order Comment: Order added by Discern Expert. TYPE CODE TESTS RESULT OUT OF RANGE REFERENCE UNITS LAB 55143962(LO mL/min/1.73 INC) m2 Normal eGFR 35 LAB 92186675(LO mL/min/1.73 INC) m2 Normal eGFR AA 43 Performed By: #### [id number] #### DL Brenda [address] [place] [address] INSERTION CVC TUNNELED Observed: 01/12/2018 Status: F Source: [facility] 1:49 PM [facility] REPOSITORY EXAM: IR INSERTION CVC TUNNELED, 01/12/2018 [...] Route: Intravenous; 9:27 AM 01/12/18 lidocaine-epinephrine 2 %-1:677144 injection 20 mL 12 mL Route: Other; [...] medication(s), I spent 30 minutes of continuous eegk-[id number]-[id number] time with the patient. COMPARISON: Chest radiograph, [...] guidance the vein was accessed and a 5-Uzbek dilator was placed. Local anesthesia was given [...] Intravenous AB 9:27 AM 01/12/18 lidocaine-epinephrine 2 %-1:708947 injection 20 mL 12 mL Given Rate: [...] GLUCOSE BATTERY Collected: 01/12/2018 Status: F Source: [facility] 11:14 AM [facility] REPOSITORY TYPE CODE TESTS RESULT OUT OF REFERENCE UNITS RANGE LAB GLUP 70-99 mg/dL High Glucose (poc 154 device) Result Comment: No BRAVE per RN: PATIENT TYPE LAB PCSTYP *POC Capillary SAMPLE TYPE Blood *POC GLUCOSE BATTERY Collected: 01/12/2018 Status: F Source: [facility] 7:24 AM [facility] REPOSITORY TYPE CODE TESTS RESULT OUT OF REFERENCE UNITS RANGE LAB GLUP 70-99 mg/dL High Glucose (poc 143 device) Result Comment: No BRAVE per RN: PATIENT TYPE LAB PCSTYP *POC Capillary SAMPLE TYPE Blood Observed: 01/12/2018 Status: F Source: [facility] URINE CULTURE -UHE 7:21 AM [facility] REPOSITORY SOURCE: URINE-CLEAN CATCH: RESULT: NO GROWTH REPORT STATUS: 01/13/2018 FINAL Performed By: #### UR #### [place] [address] Blood Cultures processed at: [facility] HEMOGRAM (CBC AND Collected: 01/12/2018 Status: F Source: [facility]) 1:53 AM [facility] REPOSITORY TYPE CODE TESTS RESULT [...] HEMOGC, CHM7, HFP, MGO, PTPTT #### [facility] [address] [place] [address] [facility] [address] [place] [address] CHEM 7 Collected: 01/12/2018 Status: F Source: [facility] 1:53 AM [facility] REPOSITORY TYPE CODE TESTS RESULT [...] >60 mL/min/1.73 Low sqM Est GFR,non 38 Dutch LAB GFRA >60 mL/min/1.73 Low sqM Est GFR, 46 Performed By: #### HEMOGC, CHM7, HFP, MGO, PTPTT #### [facility] [address] [place] [address] [address] [address] HEPATIC FUNCTION Collected: 01/12/2018 Status: F Source: [facility] PANEL 1:53 AM [facility] REPOSITORY TYPE CODE TESTS RESULT [...] HEMOGC, CHM7, HFP, MGO, PTPTT #### [facility] [address] [place] [address] [facility] [address] [place] [address] MAGNESIUM Collected: 01/12/2018 Status: F Source: [facility] 1:53 AM [facility] REPOSITORY TYPE CODE TESTS RESULT OUT OF REFERENCE UNITS RANGE LAB MG 1.6-2.6 mg/dL Magnesium 2.0 Performed By: #### HEMOGC, CHM7, HFP, MGO, PTPTT #### [facility] [address] [place] [id number] [place] [address] [address] [place] [address] PT*PTT Collected: 01/12/2018 Status: F Source: [facility] 1:53 AM [facility] REPOSITORY TYPE CODE TESTS RESULT OUT OF RANGE REFERENCE UNITS LAB PT 11.9-14.2 sec High PT 17.0 LAB INR 0.9-1.1 High INR 1.4 LAB PTT 24.0-34.3 sec High PTT 35.6 Performed By: #### HEMOGC, CHM7, HFP, MGO, PTPTT #### [facility] [address] [place] [address] [place] [address] *POC GLUCOSE BATTERY Collected: 01/11/2018 Status: F Source: [facility] 11:04 PM [facility] REPOSITORY TYPE CODE TESTS RESULT OUT OF REFERENCE UNITS RANGE LAB GLUP 70-99 mg/dL High Glucose (poc 194 device) Result Comment: No BRAVE per RN: PATIENT TYPE LAB PCSTYP *POC Capillary SAMPLE TYPE Blood *POC GLUCOSE BATTERY Collected: 01/11/2018 Status: F Source: [facility] 8:35 PM [facility] REPOSITORY TYPE CODE TESTS RESULT OUT OF REFERENCE UNITS RANGE LAB GLUP 70-99 mg/dL High Glucose (poc 183 device) Result Comment: No BRAVE per RN: PATIENT TYPE LAB PCSTYP *POC Capillary SAMPLE TYPE Blood *POC GLUCOSE BATTERY Collected: 01/11/2018 Status: F Source: [facility] 4:32 PM [facility] REPOSITORY TYPE CODE TESTS RESULT OUT OF REFERENCE UNITS RANGE LAB GLUP 70-99 mg/dL High Glucose (poc 215 device) Result Comment: No BRAVE per RN: PATIENT TYPE LAB PCSTYP *POC Capillary SAMPLE TYPE Blood HGB & HCT Collected: 01/11/2018 Status: F Source: [facility] 2:30 PM [facility] REPOSITORY TYPE CODE TESTS RESULT OUT OF REFERENCE UNITS RANGE LAB HGB 11.2-15.7 g/dL Low Hemoglobin 7.8 LAB HCT 34.1-44.9 % Low Hematocrit 24.5 Performed By: #### HH #### [facility] [address] [place] [id number] [place] [address] [address] [place] [address] *POC GLUCOSE BATTERY Collected: 01/11/2018 Status: F Source: [facility] 11:16 AM [facility] REPOSITORY TYPE CODE TESTS RESULT OUT OF REFERENCE UNITS RANGE LAB GLUP 70-99 mg/dL High Glucose (poc 228 device) Result Comment: No BRAVE per RN: PATIENT TYPE LAB PCSTYP *POC Capillary SAMPLE TYPE Blood IRON*TIBC (TRANSFERRIN) Collected: 01/11/2018 Status: F Source: [facility] 7:48 AM [facility] REPOSITORY TYPE CODE TESTS RESULT OUT OF REFERENCE UNITS RANGE LAB IRON 40-174 mcg/dL Iron 68 LAB TIBC 298-596 mcg/dL Total Iron Binding Capacity 364 LAB IRONS 20-55 % Low *Iron*Saturation 19 LAB MORALES 200-400 mg/dL Transferrin 244 Performed By: #### IRBC #### [facility] [address] [place] [address] [place] [address] FERRITIN Collected: 01/11/2018 Status: F Source: [facility] 7:48 AM [facility] REPOSITORY TYPE CODE TESTS RESULT OUT OF RANGE REFERENCE UNITS LAB FERI 10-291 ng/mL *Ferritin 20 Performed By: #### FERIB #### [facility] [address] [place] [address] [place] [address] *POC GLUCOSE BATTERY Collected: 01/11/2018 Status: F Source: [facility] 7:09 AM [facility] REPOSITORY TYPE CODE TESTS RESULT OUT OF REFERENCE UNITS RANGE LAB GLUP 70-99 mg/dL High Glucose (poc 112 device) Result Comment: No BRAVE per RN: PATIENT TYPE LAB PCSTYP *POC Capillary SAMPLE TYPE Blood Observed: 01/11/2018 Status: F Source: [facility] TYPE AND CROSS 5:10 AM [facility] REPOSITORY ABO/RH(D): O POSITIVE ANTIBODY SCREEN: NEGATIVE UNIT NUMBER: [id number] BLOOD COMPONENT TYPE: Red Cells, [id number] STATUS OF UNIT: Issued, Final TRANSFUSION STATUS: OK TO TRANSFUSE CROSSMATCH RESULT: Electronically Compatible Performed By: #### XM #### [facility] [address] [place], [place] [address] [place] [address] [place] [address] HEMOGRAM (CBC AND Collected: 01/11/2018 Status: F Source: [facility] [place]) 1:51 AM [facility] REPOSITORY TYPE CODE TESTS RESULT [...] HEMOGC, CHM7, HFP, MGO, PTPTT #### [facility] [address] [place] [address] [facility] [address] [place] [address] CHEM 7 Collected: 01/11/2018 Status: F Source: [facility] 1:51 AM [facility] REPOSITORY TYPE CODE TESTS RESULT [...] >60 mL/min/1.73 Low sqM Est GFR,non 38 Dutch LAB GFRA >60 mL/min/1.73 Low sqM Est GFR, 46 Performed By: #### HEMOGC, CHM7, HFP, MGO, PTPTT #### [facility] [address] [place] [address] [place] [address] HEPATIC FUNCTION Collected: 01/11/2018 Status: F Source: [facility] 1:51 AM [facility] REPOSITORY TYPE CODE TESTS RESULT [...] #### HEMOGC, CHM7, HFP, MGO, PTPTT #### [facility] [address] [place] [address] [place] [id number] MAGNESIUM Collected: 01/11/2018 Status: F Source: [facility] 1:51 AM [facility] REPOSITORY TYPE CODE TESTS RESULT OUT OF REFERENCE UNITS RANGE LAB MG 1.6-2.6 mg/dL Magnesium 1.9 Performed By: #### HEMOGC, CHM7, HFP, MGO, PTPTT #### [facility] [address] [place] [id number] [facility] [address] [place] [id number] PT*PTT Collected: 01/11/2018 Status: F Source: [facility] 1:51 AM [facility] REPOSITORY TYPE CODE TESTS RESULT OUT OF RANGE REFERENCE UNITS LAB PT 11.9-14.2 sec High PT 17.9 LAB INR 0.9-1.1 High INR 1.5 LAB PTT 24.0-34.3 sec High PTT 35.6 Performed By: #### HEMOGC, CHM7, HFP, MGO, PTPTT #### [facility] [address] [place] [place] [address] [address] [place] [address] *POC GLUCOSE BATTERY Collected: 01/10/2018 Status: F Source: [facility] 9:50 PM [facility] REPOSITORY TYPE CODE TESTS RESULT OUT OF REFERENCE UNITS RANGE LAB GLUP 70-99 mg/dL High Glucose (poc 149 device) Result Comment: No BRAVE per RN: PATIENT TYPE LAB PCSTYP *POC Capillary SAMPLE TYPE Blood *POC GLUCOSE BATTERY Collected: 01/10/2018 Status: F Source: [facility] 8:39 PM [facility] REPOSITORY TYPE CODE TESTS RESULT OUT OF REFERENCE UNITS RANGE LAB GLUP 70-99 mg/dL High Glucose (poc 154 device) Result Comment: No BRAVE per RN: PATIENT TYPE LAB PCSTYP *POC Capillary SAMPLE TYPE Blood *POC GLUCOSE BATTERY Collected: 01/10/2018 Status: F Source: [facility] 4:50 PM [facility] REPOSITORY TYPE CODE TESTS RESULT OUT OF REFERENCE UNITS RANGE LAB GLUP 70-99 mg/dL High Glucose (poc 131 device) Result Comment: No BRAVE per RN: PATIENT TYPE LAB PCSTYP *POC Capillary SAMPLE TYPE Blood *POC GLUCOSE BATTERY Collected: 01/10/2018 Status: F Source: [facility] 11:31 AM [facility] REPOSITORY TYPE CODE TESTS RESULT OUT OF REFERENCE UNITS RANGE LAB GLUP 70-99 mg/dL High Glucose (poc 244 device) Result Comment: No BRAVE per RN: PATIENT TYPE LAB PCSTYP *POC Capillary SAMPLE TYPE Blood *POC GLUCOSE BATTERY Collected: 01/10/2018 Status: F Source: [facility] 7:17 AM [facility] REPOSITORY TYPE CODE TESTS RESULT OUT OF REFERENCE UNITS RANGE LAB GLUP 70-99 mg/dL High Glucose (poc 110 device) Result Comment: No BRAVE per RN: PATIENT TYPE LAB PCSTYP *POC Capillary SAMPLE TYPE Blood HEMOGRAM (CBC AND Collected: 01/10/2018 Status: F Source: [facility] PLATELET) 2:49 AM [facility] REPOSITORY TYPE CODE TESTS RESULT [...] HEMOGC, CHM7, HFP, MGO, PTPTT #### [facility] [address] [place] [address] [place] [address] CHEM 7 Collected: 01/10/2018 Status: F Source: [facility] 2:49 AM [facility] REPOSITORY TYPE CODE TESTS RESULT [...] >60 mL/min/1.73 Low sqM Est GFR,non 38 Dutch LAB GFRA >60 mL/min/1.73 Low sqM Est GFR, 46 Performed By: #### HEMOGC, CHM7, HFP, MGO, PTPTT #### [facility] [address] [place] [address] [place] [address] HEPATIC FUNCTION Collected: 01/10/2018 Status: F Source: [facility] PANEL 2:49 AM [facility] REPOSITORY TYPE CODE TESTS RESULT [...] #### HEMOGC, CHM7, HFP, MGO, PTPTT #### [facility] [address] [place] [address] [place] [address] MAGNESIUM Collected: 01/10/2018 Status: F Source: [facility] 2:49 AM [facility] REPOSITORY TYPE CODE TESTS RESULT OUT OF REFERENCE UNITS RANGE LAB MG 1.6-2.6 mg/dL Magnesium 2.0 Performed By: #### HEMOGC, CHM7, HFP, MGO, PTPTT #### [facility] [address] [place] [address] [place] [address] PT*PTT Collected: 01/10/2018 Status: F Source: [facility] 2:49 AM [facility] REPOSITORY TYPE CODE TESTS RESULT OUT OF RANGE REFERENCE UNITS LAB PT 11.9-14.2 sec High PT 17.3 LAB INR 0.9-1.1 High INR 1.4 LAB PTT 24.0-34.3 sec High PTT 36.6 Performed By: #### HEMOGC, CHM7, HFP, MGO, PTPTT #### [facility] [address] [place] [address] [address] [address] VANCOMYCIN, TROUGH Collected: 01/09/2018 Status: F Source: [facility] 9:58 PM [facility] REPOSITORY TYPE CODE TESTS RESULT OUT OF REFERENCE UNITS RANGE LAB VANCTR 10.0-20.0 mcg/mL 18.8 Vancomycin, Trough Performed By: #### VANCTR #### [facility] [address] [place] [address] [facility] [address] [place], [place] [address] *POC GLUCOSE BATTERY Collected: 01/09/2018 Status: F Source: [facility] 8:42 PM [facility] REPOSITORY TYPE CODE TESTS RESULT OUT OF REFERENCE UNITS RANGE LAB GLUP 70-99 mg/dL High Glucose (poc 127 device) Result Comment: No BRAVE per RN: PATIENT TYPE LAB PCSTYP *POC Capillary SAMPLE TYPE Blood *POC GLUCOSE BATTERY Collected: 01/09/2018 Status: F Source: [facility] 4:38 PM [facility] REPOSITORY TYPE CODE TESTS RESULT OUT OF REFERENCE UNITS RANGE LAB GLUP 70-99 mg/dL High Glucose (poc 150 device) Result Comment: No BRAVE per RN: PATIENT TYPE LAB PCSTYP *POC Capillary SAMPLE TYPE Blood Observed: 01/09/2018 Status: F Source: [facility] URINE CULTURE -UHE 1:27 PM [facility] REPOSITORY SOURCE: URINE-CLEAN CATCH: RESULT: NO GROWTH REPORT STATUS: 01/10/2018 FINAL Performed By: #### UR #### [address] [address] Blood Cultures processed at: [facility] URINALYSIS Collected: 01/09/2018 Status: F Source: [facility] 1:11 PM [facility] REPOSITORY TYPE CODE TESTS RESULT OUT OF RANGE REFERENCE UNITS LAB PROCESS CHECKER Clear Appearance Turbid Abnormal Urine LAB SPGR 1.001-1.035 Specific 1.015 [place] urine LAB UGL Negative mg/dL Glucose 100 [...] Epithelial Performed By: #### URIN #### [facility] [id number] [place] [address] [place], [place] [id number] *POC GLUCOSE BATTERY Collected: 01/09/2018 Status: F Source: [facility] 11:16 AM [facility] REPOSITORY TYPE CODE TESTS RESULT OUT OF REFERENCE UNITS RANGE LAB GLUP 70-99 mg/dL High Glucose (poc 109 device) Result Comment: Notified RNread back No BRAVE per RN: PATIENT TYPE LAB PCSTYP *POC Capillary SAMPLE TYPE Blood *POC GLUCOSE BATTERY Collected: 01/09/2018 Status: F Source: [facility] 8:33 AM [facility] REPOSITORY TYPE CODE TESTS RESULT OUT OF REFERENCE UNITS RANGE LAB GLUP 70-99 mg/dL Glucose (poc 97 device) Result Comment: Notified RNread back No BRAVE per RN: PATIENT TYPE LAB PCSTYP *POC Capillary SAMPLE TYPE Blood *POC GLUCOSE BATTERY Collected: 01/09/2018 Status: F Source: [facility] 7:13 AM [facility] REPOSITORY TYPE CODE TESTS RESULT OUT OF REFERENCE UNITS RANGE LAB GLUP 70-99 mg/dL Glucose (poc 76 device) Result Comment: Notified RNread back No BRAVE per RN: PATIENT TYPE LAB PCSTYP *POC Capillary SAMPLE TYPE Blood HEMOGRAM (CBC AND Collected: 01/09/2018 Status: F Source: [facility] PLATELET) 2:21 AM [facility] REPOSITORY TYPE CODE TESTS RESULT [...] HEMOGC, CHM7, HFP, MGO, PTPTT #### [facility] [address] [place] [address] [place] [address] CHEM 7 Collected: 01/09/2018 Status: F Source: [facility] 2:21 AM [facility] REPOSITORY TYPE CODE TESTS RESULT [...] >60 mL/min/1.73 Low sqM Est GFR,non 35 Dutch LAB GFRA >60 mL/min/1.73 Low sqM Est GFR, 42 Performed By: #### HEMOGC, CHM7, HFP, MGO, PTPTT #### [facility] [address] [place] [id number] [place] [address] [place] [address] HEPATIC FUNCTION Collected: 01/09/2018 Status: F Source: [facility] 2:21 AM [facility] REPOSITORY TYPE CODE TESTS RESULT [...] #### HEMOGC, CHM7, HFP, MGO, PTPTT #### [facility] [address] [place] [address] [place] [address] MAGNESIUM Collected: 01/09/2018 Status: F Source: [facility] 2:21 AM [facility] REPOSITORY TYPE CODE TESTS RESULT OUT OF REFERENCE UNITS RANGE LAB MG 1.6-2.6 mg/dL Magnesium 2.2 Performed By: #### HEMOGC, CHM7, HFP, MGO, PTPTT #### [facility] [address] [place] [id number] [place] [address] [place] [address] PT*PTT Collected: 01/09/2018 Status: F Source: [facility] 2:21 AM [facility] REPOSITORY TYPE CODE TESTS RESULT OUT OF RANGE REFERENCE UNITS LAB PT 11.9-14.2 sec High PT 17.0 LAB INR 0.9-1.1 High INR 1.4 LAB PTT 24.0-34.3 sec High PTT 36.4 Performed By: #### HEMOGC, CHM7, HFP, MGO, PTPTT #### [facility] [address] [place], [place] [address] [place] [address] [address] [place] [address] *POC GLUCOSE BATTERY Collected: 01/08/2018 Status: F Source: [facility] 8:32 PM [facility] REPOSITORY TYPE CODE TESTS RESULT OUT OF REFERENCE UNITS RANGE LAB GLUP 70-99 mg/dL Glucose (poc 88 device) Result Comment: No BRAVE per RN: PATIENT TYPE LAB PCSTYP *POC Capillary SAMPLE TYPE Blood *POC GLUCOSE BATTERY Collected: 01/08/2018 Status: F Source: [facility] 4:58 PM [facility] REPOSITORY TYPE CODE TESTS RESULT OUT OF REFERENCE UNITS RANGE LAB GLUP 70-99 mg/dL High Glucose (poc 117 device) Result Comment: No BRAVE per RN: PATIENT TYPE LAB PCSTYP *POC Capillary SAMPLE TYPE Blood *POC GLUCOSE BATTERY Collected: 01/08/2018 Status: F Source: [facility] 11:23 AM [facility] REPOSITORY TYPE CODE TESTS RESULT OUT OF REFERENCE UNITS RANGE LAB GLUP 70-99 mg/dL High Glucose (poc 139 device) Result Comment: No BRAVE per RN: PATIENT TYPE LAB PCSTYP *POC Capillary SAMPLE TYPE Blood *POC GLUCOSE BATTERY Collected: 01/08/2018 Status: F Source: [facility] 7:35 AM [facility] REPOSITORY TYPE CODE TESTS RESULT OUT OF REFERENCE UNITS RANGE LAB GLUP 70-99 mg/dL Glucose (poc 78 device) Result Comment: No BRAVE per RN: PATIENT TYPE LAB PCSTYP *POC Capillary SAMPLE TYPE Blood HEMOGRAM (CBC AND Collected: 01/08/2018 Status: F Source: [facility] PLATELET) 2:51 AM [facility] REPOSITORY TYPE CODE TESTS RESULT [...] HEMOGC, PTPTT, CHM7, HFP, MGO #### [facility] [address] [place] [address] [place] [address] PT*PTT Collected: 01/08/2018 Status: F Source: [facility] 2:[address] [place] [address] REPOSITORY TYPE CODE TESTS RESULT OUT OF RANGE REFERENCE UNITS LAB PT 11.9-14.2 sec High PT 17.6 LAB INR 0.9-1.1 High INR 1.5 LAB PTT 24.0-34.3 sec High PTT 38.0 Performed By: #### HEMOGC, PTPTT, CHM7, HFP, MGO #### [facility] [address] [place] [address] [address] [address] CHEM 7 Collected: 01/08/2018 Status: F Source: [facility] 2:[address] [place] [address] REPOSITORY TYPE CODE TESTS RESULT OUT OF [...] >60 mL/min/1.73 Low sqM Est GFR,non 35 Dutch LAB GFRA >60 mL/min/1.73 Low sqM Est GFR, 43 Performed By: #### HEMOGC, PTPTT, CHM7, HFP, MGO #### [facility] [address] [place] [address] HEPATIC FUNCTION Collected: 01/08/2018 Status: F Source: [facility] PANEL 2:51 AM [facility] REPOSITORY TYPE CODE TESTS RESULT [...] #### HEMOGC, PTPTT, CHM7, HFP, MGO #### [facility] [address] [address] MAGNESIUM Collected: 01/08/2018 Status: F Source: [facility] 2:51 AM [facility] REPOSITORY TYPE CODE TESTS RESULT OUT OF REFERENCE UNITS RANGE LAB MG 1.6-2.6 mg/dL Magnesium 2.4 Performed By: #### HEMOGC, PTPTT, CHM7, HFP, MGO #### [place] [address] VANCOMYCIN, TROUGH Collected: 01/07/2018 Status: F Source: [facility] 9:55 PM [facility] REPOSITORY TYPE CODE TESTS RESULT OUT OF REFERENCE UNITS RANGE LAB VANCTR 10.0-20.0 mcg/mL 18.6 Vancomycin, Trough Performed By: #### VANCTR #### [facility] [address] [address] *POC GLUCOSE BATTERY Collected: 01/07/2018 Status: F Source: [facility] 9:11 PM [facility] REPOSITORY TYPE CODE TESTS RESULT OUT OF REFERENCE UNITS RANGE LAB GLUP 70-99 mg/dL High Glucose (poc 141 device) Result Comment: No BRAVE per RN: PATIENT TYPE LAB PCSTYP *POC Capillary SAMPLE TYPE Blood *POC GLUCOSE BATTERY Collected: 01/07/2018 Status: F Source: [facility] 5:01 PM [facility] REPOSITORY TYPE CODE TESTS RESULT OUT OF REFERENCE UNITS RANGE LAB GLUP 70-99 mg/dL High Glucose (poc 105 device) Result Comment: No BRAVE per RN: PATIENT TYPE LAB PCSTYP *POC Capillary SAMPLE TYPE Blood *POC GLUCOSE BATTERY Collected: 01/07/2018 Status: F Source: [facility] 10:54 AM [facility] REPOSITORY TYPE CODE TESTS RESULT OUT OF REFERENCE UNITS RANGE LAB GLUP 70-99 mg/dL High Glucose (poc 218 device) Result Comment: No BRAVE per RN: PATIENT TYPE LAB PCSTYP *POC Capillary SAMPLE TYPE Blood *POC GLUCOSE BATTERY Collected: 01/07/2018 Status: F Source: [facility] 7:24 AM [facility] REPOSITORY TYPE CODE TESTS RESULT OUT OF REFERENCE UNITS RANGE LAB GLUP 70-99 mg/dL Glucose (poc 81 device) Result Comment: No BRAVE per RN: PATIENT TYPE LAB PCSTYP *POC Capillary SAMPLE TYPE Blood HEMOGRAM (CBC AND Collected: 01/07/2018 Status: F Source: [facility] PLATELET) 2:45 AM [facility] REPOSITORY TYPE CODE TESTS RESULT [...] #### HEMOGC, CHM7, HFP, MGO, PTPTT #### [facility] [address] [place] [address] [facility] [address] [place] [address] CHEM 7 Collected: 01/07/2018 Status: F Source: [facility] 2:45 AM [facility] REPOSITORY TYPE CODE TESTS RESULT [...] >60 mL/min/1.73 Low sqM Est GFR,non 36 Dutch LAB GFRA >60 mL/min/1.73 Low sqM Est GFR, 44 Performed By: #### HEMOGC, CHM7, HFP, MGO, PTPTT #### [facility] [address] [address] HEPATIC FUNCTION Collected: 01/07/2018 Status: F Source: [facility] PANEL 2:45 AM [facility] REPOSITORY TYPE CODE TESTS RESULT [...] #### HEMOGC, CHM7, HFP, MGO, PTPTT #### [facility] [address] [address] [facility] [address] [place] [address] MAGNESIUM Collected: 01/07/2018 Status: F Source: [facility] 2:45 AM [facility] REPOSITORY TYPE CODE TESTS RESULT OUT OF REFERENCE UNITS RANGE LAB MG 1.6-2.6 mg/dL Magnesium 2.4 Performed By: #### HEMOGC, CHM7, HFP, MGO, PTPTT #### [facility] [address] [place] [address] [facility] [address] [place] [address] PT*PTT Collected: 01/07/2018 Status: F Source: [facility] 2:45 AM [facility] REPOSITORY TYPE CODE TESTS RESULT OUT OF RANGE REFERENCE UNITS LAB PT 11.9-14.2 sec High PT 17.9 LAB INR 0.9-1.1 High INR 1.5 LAB PTT 24.0-34.3 sec High PTT 38.7 Performed By: #### HEMOGC, CHM7, HFP, MGO, PTPTT #### [facility] [address] [place] [id number] [place] [address] [place] [address] *POC GLUCOSE BATTERY Collected: 01/06/2018 Status: F Source: [facility] 8:41 PM [facility] REPOSITORY TYPE CODE TESTS RESULT OUT OF REFERENCE UNITS RANGE LAB GLUP 70-99 mg/dL High Glucose (poc 149 device) Result Comment: Notified RNread back No BRAVE per RN: PATIENT TYPE LAB PCSTYP *POC Capillary SAMPLE TYPE Blood *POC GLUCOSE BATTERY Collected: 01/06/2018 Status: F Source: [facility] 11:21 AM [facility] REPOSITORY TYPE CODE TESTS RESULT OUT OF REFERENCE UNITS RANGE LAB GLUP 70-99 mg/dL High Glucose (poc 128 device) Result Comment: No BRAVE per RN: PATIENT TYPE LAB PCSTYP *POC Capillary SAMPLE TYPE Blood *POC GLUCOSE BATTERY Collected: 01/06/2018 Status: F Source: [facility] 7:39 AM [facility] REPOSITORY TYPE CODE TESTS RESULT OUT OF REFERENCE UNITS RANGE LAB GLUP 70-99 mg/dL Glucose (poc 91 device) Result Comment: No BRAVE per RN: PATIENT TYPE LAB PCSTYP *POC Capillary SAMPLE TYPE Blood HEMOGRAM (CBC AND Collected: 01/06/2018 Status: F Source: [facility] PLATELET) 2:07 AM [facility] REPOSITORY TYPE CODE TESTS RESULT [...] #### HEMOGC, CHM7, HFP, MGO, PTPTT #### [place] [address] CHEM 7 Collected: 01/06/2018 Status: F Source: [facility] 2:07 AM [facility] REPOSITORY TYPE CODE TESTS RESULT [...] >60 mL/min/1.73 Low sqM Est GFR,non 37 Dutch LAB GFRA >60 mL/min/1.73 Low sqM Est GFR, 44 Performed By: #### HEMOGC, CHM7, HFP, MGO, PTPTT #### [facility] [address] [facility] [address] [place] [address] HEPATIC FUNCTION Collected: 01/06/2018 Status: F Source: [facility] 2:07 AM [facility] REPOSITORY TYPE CODE TESTS RESULT [...] #### HEMOGC, CHM7, HFP, MGO, PTPTT #### [facility] [address] [place] [address] [address] [address] MAGNESIUM Collected: 01/06/2018 Status: F Source: [facility] 2:07 AM [facility] REPOSITORY TYPE CODE TESTS RESULT OUT OF REFERENCE UNITS RANGE LAB MG 1.6-2.6 mg/dL Magnesium 2.2 Performed By: #### HEMOGC, CHM7, HFP, MGO, PTPTT #### [facility] [address] [place] [address] [place] [address] PT*PTT Collected: 01/06/2018 Status: F Source: [facility] 2:07 AM [facility] REPOSITORY TYPE CODE TESTS RESULT OUT OF RANGE REFERENCE UNITS LAB PT 11.9-14.2 sec High PT 17.9 LAB INR 0.9-1.1 High INR 1.5 LAB PTT 24.0-34.3 sec High PTT 35.1 Performed By: #### HEMOGC, CHM7, HFP, MGO, PTPTT #### [facility] [address] [place] [address] [place] [address] *POC GLUCOSE BATTERY Collected: 01/05/2018 Status: F Source: [facility] 8:47 PM [facility] REPOSITORY TYPE CODE TESTS RESULT OUT OF REFERENCE UNITS RANGE LAB GLUP 70-99 mg/dL High Glucose (poc 184 device) Result Comment: No BRAVE per RN: PATIENT TYPE LAB PCSTYP *POC Capillary SAMPLE TYPE Blood *POC GLUCOSE BATTERY Collected: 01/05/2018 Status: F Source: [facility] 3:49 PM [facility] REPOSITORY TYPE CODE TESTS RESULT OUT OF REFERENCE UNITS RANGE LAB GLUP 70-99 mg/dL Glucose (poc 87 device) Result Comment: No BRAVE per RN: PATIENT TYPE LAB PCSTYP *POC Capillary SAMPLE TYPE Blood SURGICAL PATHOLOGY Observed: 01/05/2018 Status: F Source: [facility] 2:35 PM [facility] REPOSITORY Surgical Pathology Report Patient Name: KIM DILLON [facility]. Rec #: [id number] Submitting Physician: TYE CHAPA --- Clinical History [...] 01/07/2018 13:00:15 Professional Interpretation performed at location: [address] [place] [id number] ---SPECIMEN(S) RECEIVED:--- SR A: Tissue, debridement/abscess ---GROSS [...] TE 1 Lab Use Only: Job ID [id number] Gross description by: Matthew Pederson Performed By: #### SURGP #### [facility] [address] [place] [address] [facility] [address] [place] [id number] *POC GLUCOSE BATTERY Collected: 01/05/2018 Status: F Source: [facility] 2:29 PM [facility] REPOSITORY TYPE CODE TESTS RESULT OUT OF REFERENCE UNITS RANGE LAB GLUP 70-99 mg/dL Glucose (poc 88 device) Result Comment: No BRAVE per RN: PATIENT TYPE LAB PCSTYP *POC Capillary SAMPLE TYPE Blood Observed: 01/05/2018 Status: F Source: [facility] [employer]: TISSUE -UHE 2:22 PM [facility] REPOSITORY SOURCE: BONE: Left Fibula COMMENT: Tiny MICROSCOPIC: No Acid Fast Bacillus Seen :Examined by Fluorochrome Stain RESULT: NO GROWTH DAY 43 OF 43 REPORT STATUS: 02/17/2018 FINAL Performed By: #### AFBT #### [address] [address] Blood Cultures processed at: [facility] BACT CULTURE/DIR Observed: Status: F Source: [place] [facility],LESION,TISSUE,DEVICE-[facility] 01/05/2018 2:22 [facility] REPOSITORY SOURCE: SURGICAL WOUND: Leg COMMENT: Small Tissue MICROSCOPIC: Neutrophils, Moderate Red Blood Cells Present Mononuclear cells present NO ORGANISMS SEEN Gram Stain read at [facility] QUANTITATION: Total Microbial Growth, Light RESULT: GERARD PARAPSILOSIS COMPLEX :Identification by MALDI-TOF mass spectrometer. ---> RVW (NOTE) Identification was performed on the MALDI-TOF mass spectrometer Biotyper. This test was developed and its performance characteristics determined by [facility] at [facility]. It has not been cleared or approved by the FDA. The laboratory is regulated under CLIA as qualified to perform high- complexity testing. This test is used for cl inical purposes. It should not be regarded as investigational or for research REPORT STATUS: 01/08/2018 FINAL Performed By: #### #### [address] [address] Blood Cultures processed at: [facility] BACT CULTURE/DIR Observed: Status: F Source: [place] [facility],LESION,TISSUE,DEVICE-[facility] 01/05/2018 2:22 [facility] REPOSITORY SOURCE: BONE: Left Fibula COMMENT: Tiny MICROSCOPIC: Neutrophils, Light Red Blood Cells Present Mononuclear cells present NO ORGANISMS SEEN Gram Stain read at [facility] QUANTITATION: <<NOT APPLICABLE>> RESULT: NO GROWTH DAY 2 REPORT STATUS: 01/07/2018 FINAL Performed By: #### GEN #### [address] [address] Blood Cultures processed at: [facility] Observed: 01/05/2018 Status: F Source: [facility] [employer]: TISSUE -E 2:22 PM [facility] REPOSITORY SOURCE: SURGICAL WOUND: Leg COMMENT: Small Tissue MICROSCOPIC: No Acid Fast Bacillus Seen :Examined by Fluorochrome Stain RESULT: NO GROWTH DAY 43 OF 43 REPORT STATUS: 02/17/2018 FINAL Performed By: #### AFBT #### [address] [address] Blood Cultures processed at: [facility] Observed: 01/05/2018 Status: F Source: [facility] FUNGUS CULTURE -E 2:22 PM [facility] REPOSITORY SOURCE: BONE: Left Fibula COMMENT: Cultures held 28 days. Tiny RESULT: NO GROWTH TO DATE REPORT STATUS: 02/02/2018 FINAL Performed By: #### FUN #### [address] [address] Blood Cultures processed at: [facility] Observed: 01/05/2018 Status: F Source: [facility] FUNGUS [facility] -UHE 2:22 PM [facility] REPOSITORY SOURCE: SURGICAL WOUND: Leg COMMENT: Cultures held 28 days. Small Tissue RESULT: GERARD PARAPSILOSIS COMPLEX :Unable to quantitate growing directly from tissue :Identification by MALDI-TOF mass spectrometer. ---> RVW (NOTE) Identification was performed on the MALDI-TOF mass spectrometer Pagevampyper. This test was developed and its performance characteristics determined by [facility] at [facility]. It has not been cleared or approved by the FDA. The laboratory is regulated under CLIA as qualified to perform high- complexity testing. This test is used for cl inical purposes. It should not be regarded as investigational or for research REPORT STATUS: 02/02/2018 FINAL Performed By: #### FUN #### [address] [address] Blood Cultures processed at: [facility] Observed: 01/05/2018 Status: F [facility] REPOSITORY SOURCE: BONE: Left Fibula COMMENT: Tiny MICROSCOPIC: See Routine Culture RESULT: NO ANAEROBIC GROWTH (NOTE) Specimen incubated up to 14 days REPORT STATUS: 01/19/2018 FINAL Performed By: #### REINALDO #### [address] [address] Blood Cultures processed at: [facility] Observed: 01/05/2018 Status: F Source: [facility] ANAEROBE CULTURE -UHE 2:22 PM [facility] REPOSITORY SOURCE: SURGICAL WOUND: Leg COMMENT: Small Tissue MICROSCOPIC: See Routine Culture RESULT: NO ANAEROBIC GROWTH REPORT STATUS: 01/11/2018 FINAL Performed By: #### REINALDO #### [place] [address] Blood Cultures processed at: [facility] *POC GLUCOSE BATTERY Collected: 01/05/2018 Status: F Source: [facility] 12:18 PM [facility] REPOSITORY TYPE CODE TESTS RESULT OUT OF REFERENCE UNITS RANGE LAB GLUP 70-99 mg/dL High Glucose (poc 103 device) Result Comment: No BRAVE per RN: PATIENT TYPE LAB PCSTYP *POC Capillary SAMPLE TYPE Blood *POC GLUCOSE BATTERY Collected: 01/05/2018 Status: F Source: [facility] 7:46 AM [facility] REPOSITORY TYPE CODE TESTS RESULT OUT OF REFERENCE UNITS RANGE LAB GLUP 70-99 mg/dL High Glucose (poc 111 device) Result Comment: No BRAVE per RN: PATIENT TYPE LAB PCSTYP *POC Capillary SAMPLE TYPE Blood HEMOGRAM (CBC AND Collected: 01/05/2018 Status: F Source: [facility] PLATELET) 3:18 AM [facility] REPOSITORY TYPE CODE TESTS RESULT [...] HEMANDREWC, CHM7, HFP, MGO, PTPTT #### [facility] [address] [place] [address] [facility] [address] [place], [place] [address] CHEM 7 Collected: 01/05/2018 Status: F Source: [facility] 3:18 AM [facility] REPOSITORY TYPE CODE TESTS RESULT [...] >60 mL/min/1.73 Low sqM Est GFR,non 42 [facility] GFRA >60 mL/min/1.73 Low sqM Est GFR, 51 Performed By: #### HEMOGC, CHM7, HFP, MGO, PTPTT #### [facility] [address] [place] [address] [facility] [address] [place], [place] [address] HEPATIC FUNCTION Collected: 01/05/2018 Status: F Source: [facility] PANEL 3:18 AM [facility] REPOSITORY TYPE CODE TESTS RESULT [...] #### HEMOGC, CHM7, HFP, MGO, PTPTT #### [facility] [address] [place] [address] [place] [address] MAGNESIUM Collected: 01/05/2018 Status: F Source: [facility] 3:18 AM [facility] REPOSITORY TYPE CODE TESTS RESULT OUT OF REFERENCE UNITS RANGE LAB MG 1.6-2.6 mg/dL Magnesium 2.3 Performed By: #### HEMOGC, CHM7, HFP, MGO, PTPTT #### [facility] [address] [place] [address] [place] [address] PT*PTT Collected: 01/05/2018 Status: F Source: [facility] 3:18 AM [facility] REPOSITORY TYPE CODE TESTS RESULT OUT OF RANGE REFERENCE UNITS LAB PT 11.9-14.2 sec High PT 17.2 LAB INR 0.9-1.1 High INR 1.4 LAB PTT 24.0-34.3 sec High PTT 34.9 Performed By: #### HEMOGC, CHM7, HFP, MGO, PTPTT #### [facility] [address] [place] [address] [place] [address] *POC GLUCOSE BATTERY Collected: 01/04/2018 Status: F Source: [facility] 9:41 PM [facility] REPOSITORY TYPE CODE TESTS RESULT OUT OF REFERENCE UNITS RANGE LAB GLUP 70-99 mg/dL High Glucose (poc 146 device) Result Comment: No BRAVE per RN: PATIENT TYPE LAB PCSTYP *POC Capillary SAMPLE TYPE Blood *POC GLUCOSE BATTERY Collected: 01/04/2018 Status: F Source: [facility] 4:26 PM [facility] REPOSITORY TYPE CODE TESTS RESULT OUT OF REFERENCE UNITS RANGE LAB GLUP 70-99 mg/dL High Glucose (poc 145 device) Result Comment: No BRAVE per RN: PATIENT TYPE LAB PCSTYP *POC Capillary SAMPLE TYPE Blood *POC GLUCOSE BATTERY Collected: 01/04/2018 Status: F Source: [facility] 10:44 AM [facility] REPOSITORY TYPE CODE TESTS RESULT OUT OF REFERENCE UNITS RANGE LAB GLUP 70-99 mg/dL High Glucose (poc 235 device) Result Comment: Notified RNread back No BRAVE per RN: PATIENT TYPE LAB PCSTYP *POC Capillary SAMPLE TYPE Blood *POC GLUCOSE BATTERY Collected: 01/04/2018 Status: F Source: [facility] 7:45 AM [facility] REPOSITORY TYPE CODE TESTS RESULT OUT OF REFERENCE UNITS RANGE LAB GLUP 70-99 mg/dL High Glucose (poc 102 device) Result Comment: Notified RNread back No BRAVE per RN: PATIENT TYPE LAB PCSTYP *POC Capillary SAMPLE TYPE Blood HEMOGRAM (CBC AND Collected: 01/04/2018 Status: F Source: [facility] PLATELET) 5:22 AM [facility] REPOSITORY TYPE CODE TESTS RESULT [...] HEMOGC, PTPTT, CHM7, HFP, MGO #### [facility] [address] [place] [address] [facility] [address] [place] [address] PT*PTT Collected: 01/04/2018 Status: F Source: [facility] 5:22 AM [facility] REPOSITORY TYPE CODE TESTS RESULT OUT OF RANGE REFERENCE UNITS LAB PT 11.9-14.2 sec High PT 16.5 LAB INR 0.9-1.1 High INR 1.4 LAB PTT 24.0-34.3 sec PTT 34.0 Performed By: #### HEMOGC, PTPTT, CHM7, HFP, MGO #### [facility] [address] [place] [id number] [place] [address] [address] [place] [address] CHEM 7 Collected: 01/04/2018 Status: F Source: [facility] 5:22 [facility] REPOSITORY TYPE CODE TESTS RESULT [...] >60 mL/min/1.73 Low sqM Est GFR,non 36 [facility] LAB GFRA >60 mL/min/1.73 Low sqM Est GFR, 44 Performed By: #### HEMOGC, PTPTT, CHM7, HFP, MGO #### [facility] [address] [place] [address] [facility] [address] [place] [address] HEPATIC FUNCTION Collected: 01/04/2018 Status: F Source: [facility] 5:22 AM [facility] REPOSITORY TYPE CODE TESTS RESULT [...] #### HEMOGC, PTPTT, CHM7, HFP, MGO #### [facility] [address] [place] [address] [place] [address] MAGNESIUM Collected: 01/04/2018 Status: F Source: [facility] 5:22 AM [facility] REPOSITORY TYPE CODE TESTS RESULT OUT OF REFERENCE UNITS RANGE LAB MG 1.6-2.6 mg/dL Magnesium 2.4 Performed By: #### HEMOGC, PTPTT, CHM7, HFP, MGO #### [facility] [address] [place] [address] [place] [address] *POC GLUCOSE BATTERY Collected: 01/03/2018 Status: F Source: [facility] 9:06 PM [facility] REPOSITORY TYPE CODE TESTS RESULT OUT OF REFERENCE UNITS RANGE LAB GLUP 70-99 mg/dL High Glucose (poc 198 device) Result Comment: No BRAVE per RN: PATIENT TYPE LAB PCSTYP *POC Capillary SAMPLE TYPE Blood VANCOMYCIN, TROUGH Collected: 01/03/2018 Status: F Source: [facility] 8:48 PM [facility] REPOSITORY TYPE CODE TESTS RESULT OUT OF REFERENCE UNITS RANGE LAB VANCTR 10.0-20.0 mcg/mL 13.9 Vancomycin, Trough Performed By: #### VANCTR #### [facility] [address] [place] [address] [place] [address] *POC GLUCOSE BATTERY Collected: 01/03/2018 Status: F Source: [facility] 4:14 PM [facility] REPOSITORY TYPE CODE TESTS RESULT OUT OF REFERENCE UNITS RANGE LAB GLUP 70-99 mg/dL High Glucose (poc 142 device) Result Comment: No BRAVE per RN: PATIENT TYPE LAB PCSTYP *POC Capillary SAMPLE TYPE Blood *POC GLUCOSE BATTERY Collected: 01/03/2018 Status: F Source: [facility] 10:44 AM [facility] REPOSITORY TYPE CODE TESTS RESULT OUT OF REFERENCE UNITS RANGE LAB GLUP 70-99 mg/dL High Glucose (poc 239 device) Result Comment: Notified RNread back No BRAVE per RN: PATIENT TYPE LAB PCSTYP *POC Capillary SAMPLE TYPE Blood MRI ANKLE LEFT WITH Observed: 01/03/2018 Status: F Source: [place] [facility] 9:25 AM [facility] REPOSITORY EXAM: MRI ANKLE LEFT WITH AND [...] GLUCOSE BATTERY Collected: 01/03/2018 Status: F Source: [facility] 7:17 AM [facility] REPOSITORY TYPE CODE TESTS RESULT OUT OF REFERENCE UNITS RANGE LAB GLUP 70-99 mg/dL Glucose (poc 89 device) Result Comment: Notified RNread back No BRAVE per RN: PATIENT TYPE LAB PCSTYP *POC Capillary SAMPLE TYPE Blood HEMOGRAM (CBC AND Collected: 01/03/2018 Status: F Source: [facility] PLATELET) 2:37 AM [facility] REPOSITORY TYPE CODE TESTS RESULT [...] HEMOGC, PTPTT, CHM7, HFP, MGO #### [facility] [address] [place] [address] [place] [address] PT*PTT Collected: 01/03/2018 Status: F Source: [facility] 2:37 AM [facility] REPOSITORY TYPE CODE TESTS RESULT OUT OF RANGE REFERENCE UNITS LAB PT 11.9-14.2 sec High PT 16.7 LAB INR 0.9-1.1 High INR 1.4 LAB PTT 24.0-34.3 sec High PTT 34.6 Performed By: #### HEMOGC, PTPTT, CHM7, HFP, MGO #### [facility] [address] [place] [id number] [facility] [address] [place] [address] CHEM 7 Collected: 01/03/2018 Status: F Source: [facility] 2:37 AM [facility] REPOSITORY TYPE CODE TESTS RESULT [...] >60 mL/min/1.73 Low sqM Est GFR,non 33 [facility] GFRA >60 mL/min/1.73 Low sqM Est GFR, 40 Performed By: #### HEMOGC, PTPTT, CHM7, HFP, MGO #### [facility] [address] [place] [address] [facility] [address] [place] [address] HEPATIC FUNCTION Collected: 01/03/2018 Status: F Source: [facility] 2:37 [facility] REPOSITORY TYPE CODE TESTS RESULT [...] HEMOGC, PTPTT, CHM7, HFP, MGO #### [facility] [address] [place] [address] [facility] [address] [place] [address] MAGNESIUM Collected: 01/03/2018 Status: F Source: [facility] 2:37 AM [facility] REPOSITORY TYPE CODE TESTS RESULT OUT OF REFERENCE UNITS RANGE LAB MG 1.6-2.6 mg/dL Magnesium 2.5 Performed By: #### HEMOGC, PTPTT, CHM7, HFP, MGO #### [facility] [address] [place] [address] [facility] [address] [place] [address] *POC GLUCOSE BATTERY Collected: 01/02/2018 Status: F Source: [facility] 9:08 PM [facility] REPOSITORY TYPE CODE TESTS RESULT OUT OF REFERENCE UNITS RANGE LAB GLUP 70-99 mg/dL High Glucose (poc 152 device) Result Comment: No BRAVE per RN: PATIENT TYPE LAB PCSTYP *POC Capillary SAMPLE TYPE Blood *POC GLUCOSE BATTERY Collected: 01/02/2018 Status: F Source: [facility] 4:26 PM [facility] REPOSITORY TYPE CODE TESTS RESULT OUT OF REFERENCE UNITS RANGE LAB GLUP 70-99 mg/dL High Glucose (poc 150 device) Result Comment: No BRAVE per RN: PATIENT TYPE LAB PCSTYP *POC Capillary SAMPLE TYPE Blood *POC GLUCOSE BATTERY Collected: 01/02/2018 Status: F Source: [facility] 11:05 AM [facility] REPOSITORY TYPE CODE TESTS RESULT OUT OF REFERENCE UNITS RANGE LAB GLUP 70-99 mg/dL High Glucose (poc 231 device) Result Comment: No BRAVE per RN: PATIENT TYPE LAB PCSTYP *POC Capillary SAMPLE TYPE Blood *POC GLUCOSE BATTERY Collected: 01/02/2018 Status: F Source: [facility] 9:07 AM [facility] REPOSITORY TYPE CODE TESTS RESULT OUT OF REFERENCE UNITS RANGE LAB GLUP 70-99 mg/dL High Glucose (poc 200 device) Result Comment: No BRAVE per RN: PATIENT TYPE LAB PCSTYP *POC Capillary SAMPLE TYPE Blood *POC GLUCOSE BATTERY Collected: 01/02/2018 Status: F Source: [facility] 7:40 AM [facility] REPOSITORY TYPE CODE TESTS RESULT OUT OF REFERENCE UNITS RANGE LAB GLUP 70-99 mg/dL High Glucose (poc 110 device) Result Comment: No BRAVE per RN: PATIENT TYPE LAB PCSTYP *POC Capillary SAMPLE TYPE Blood HEMOGRAM (CBC AND Collected: 01/02/2018 Status: F Source: [facility] PLATELET) 2:04 AM [facility] REPOSITORY TYPE CODE TESTS RESULT [...] HEMOGC, CHM7, HFP, MGO, PTPTT #### [facility] [address] [place] [address] [place] [address] CHEM 7 Collected: 01/02/2018 Status: F Source: [facility] 2:04 AM [facility] REPOSITORY TYPE CODE TESTS RESULT [...] >60 mL/min/1.73 Low sqM Est GFR,non 33 [facility] GFRA >60 mL/min/1.73 Low sqM Est GFR, 40 Performed By: #### HEMOGC, CHM7, HFP, MGO, PTPTT #### [facility] [address] [place] [phone] [place] [address] [place] [id number] HEPATIC FUNCTION Collected: 01/02/2018 Status: F Source: [facility] 2:04 [facility] REPOSITORY TYPE CODE TESTS RESULT [...] #### HEMOGC, CHM7, HFP, MGO, PTPTT #### [facility] [address] [place] [address] [place] [address] MAGNESIUM Collected: 01/02/2018 Status: F Source: [facility] 2:04 AM [facility] REPOSITORY TYPE CODE TESTS RESULT OUT OF REFERENCE UNITS RANGE LAB MG 1.6-2.6 mg/dL Magnesium 2.4 Performed By: #### HEMOGC, CHM7, HFP, MGO, PTPTT #### [facility] [address] [place] [id number] [place] [address] [place] [address] PT*PTT Collected: 01/02/2018 Status: F Source: [facility] 2:04 AM [facility] REPOSITORY TYPE CODE TESTS RESULT OUT OF RANGE REFERENCE UNITS LAB PT 11.9-14.2 sec High PT 16.1 LAB INR 0.9-1.1 High INR 1.3 LAB PTT 24.0-34.3 sec High PTT 35.8 Performed By: #### HEMOGC, CHM7, HFP, MGO, PTPTT #### [facility] [address] [place], [place] [address] [place] [address] [address] [place] [address] *POC GLUCOSE BATTERY Collected: 01/01/2018 Status: F Source: [facility] 9:23 PM [facility] REPOSITORY TYPE CODE TESTS RESULT OUT OF REFERENCE UNITS RANGE LAB GLUP 70-99 mg/dL High Glucose (poc 171 device) Result Comment: Notified RNread back No BRAVE per RN: PATIENT TYPE LAB PCSTYP *POC Capillary SAMPLE TYPE Blood *POC GLUCOSE BATTERY Collected: 01/01/2018 Status: F Source: [facility] 4:51 PM [facility] REPOSITORY TYPE CODE TESTS RESULT OUT OF REFERENCE UNITS RANGE LAB GLUP 70-99 mg/dL High Glucose (poc 153 device) Result Comment: No BRAVE per RN: PATIENT TYPE LAB PCSTYP *POC Capillary SAMPLE TYPE Blood *POC GLUCOSE BATTERY Collected: 01/01/2018 Status: F Source: [facility] 11:44 AM [facility] REPOSITORY TYPE CODE TESTS RESULT OUT OF REFERENCE UNITS RANGE LAB GLUP 70-99 mg/dL High Glucose (poc 216 device) Result Comment: No BRAVE per RN: PATIENT TYPE LAB PCSTYP *POC Capillary SAMPLE TYPE Blood *POC GLUCOSE BATTERY Collected: 01/01/2018 Status: F Source: [facility] 10:08 AM [facility] REPOSITORY TYPE CODE TESTS RESULT OUT OF REFERENCE UNITS RANGE LAB GLUP 70-99 mg/dL High Glucose (poc 235 device) Result Comment: No BRAVE per RN: PATIENT TYPE LAB PCSTYP *POC Capillary SAMPLE TYPE Blood HEMOGRAM (CBC AND Collected: 01/01/2018 Status: F Source: [facility] PLATELET) 7:26 AM [facility] REPOSITORY TYPE CODE TESTS RESULT [...] 0.4 Performed By: #### HEMOGC #### [facility] [address] [place] [address] [place] [address] *POC GLUCOSE BATTERY Collected: 01/01/2018 Status: F Source: [facility] 7:15 AM [facility] REPOSITORY TYPE CODE TESTS RESULT OUT OF REFERENCE UNITS RANGE LAB GLUP 70-99 mg/dL Glucose (poc 99 device) Result Comment: No BRAVE per RN: PATIENT TYPE LAB PCSTYP *POC Capillary SAMPLE TYPE Blood CHEM 7 Collected: 01/01/2018 Status: F Source: [facility] 2:05 AM [facility] REPOSITORY TYPE CODE TESTS RESULT [...] >60 mL/min/1.73 Low sqM Est GFR,non 34 [facility] GFRA >60 mL/min/1.73 Low sqM Est GFR, 41 Performed By: #### CHM7, HFP, MGO, PTPTT #### [facility] [address] [place] [address] HEPATIC FUNCTION Collected: 01/01/2018 Status: F Source: [facility] PANEL 2:05 AM [facility] REPOSITORY TYPE CODE TESTS RESULT [...] By: #### CHM7, HFP, MGO, PTPTT #### [facility] [address] [place] [address] [address] [place] [address] MAGNESIUM Collected: 01/01/2018 Status: F Source: [facility] 2:05 AM [facility] REPOSITORY TYPE CODE TESTS RESULT OUT OF REFERENCE UNITS RANGE LAB MG 1.6-2.6 mg/dL Magnesium 2.3 Performed By: #### DERRELLM7, HFP, MGO, PTPTT #### [facility] [address] [place] [address] PT*PTT Collected: 01/01/2018 Status: F Source: [facility] 2:05 AM [facility] REPOSITORY TYPE CODE TESTS RESULT OUT OF RANGE REFERENCE UNITS LAB PT 11.9-14.2 sec High PT 15.4 LAB INR 0.9-1.1 High INR 1.2 LAB PTT 24.0-34.3 sec High PTT 36.1 Performed By: #### CHM7, HFP, MGO, PTPTT #### [facility] [address] [place] [address] *POC GLUCOSE BATTERY Collected: 12/31/2017 Status: F Source: [facility] 9:04 PM [facility] REPOSITORY TYPE CODE TESTS RESULT OUT OF REFERENCE UNITS RANGE LAB GLUP 70-99 mg/dL High Glucose (poc 169 device) Result Comment: No BRAVE per RN: PATIENT TYPE LAB PCSTYP *POC Capillary SAMPLE TYPE Blood *POC GLUCOSE BATTERY Collected: 12/31/2017 Status: F Source: [facility] 7:14 PM [facility] REPOSITORY TYPE CODE TESTS RESULT OUT OF REFERENCE UNITS RANGE LAB GLUP 70-99 mg/dL High Glucose (poc 177 device) Result Comment: No BRAVE per RN: PATIENT TYPE LAB PCSTYP *POC Capillary SAMPLE TYPE Blood *POC GLUCOSE BATTERY Collected: 12/31/2017 Status: F Source: [facility] 4:48 PM [facility] REPOSITORY TYPE CODE TESTS RESULT OUT OF REFERENCE UNITS RANGE LAB GLUP 70-99 mg/dL High Glucose (poc 122 device) Result Comment: No BRAVE per RN: PATIENT TYPE LAB PCSTYP *POC Capillary SAMPLE TYPE Blood VANCOMYCIN, TROUGH Collected: 12/31/2017 Status: F Source: [facility] 4:24 PM [facility] REPOSITORY TYPE CODE TESTS RESULT OUT OF REFERENCE UNITS RANGE LAB VANCTR 10.0-20.0 mcg/mL 14.3 Vancomycin, Trough Performed By: #### VANCTR #### [facility] [address] [place] [address] [place] [address] *POC GLUCOSE BATTERY Collected: 12/31/2017 Status: F Source: [facility] 11:47 AM [facility] REPOSITORY TYPE CODE TESTS RESULT OUT OF REFERENCE UNITS RANGE LAB GLUP 70-99 mg/dL High Glucose (poc 172 device) Result Comment: No BRAVE per RN: PATIENT TYPE LAB PCSTYP *POC Capillary SAMPLE TYPE Blood BACT CULTURE/DIR Observed: Status: F Source: [place] SMEAR,LESION,TISSUE,DEVICE-UHE 12/31/2017 10:42 [facility] REPOSITORY SOURCE: SURGICAL WOUND: Left Lower Leg Tissue COMMENT: Tiny Tissue MICROSCOPIC: Neutrophils, None Red Blood Cells Present NO ORGANISMS SEEN Gram Stain read at [facility] QUANTITATION: <<NOT APPLICABLE>> RESULT: NO GROWTH DAY 2 REPORT STATUS: 01/02/2018 FINAL Performed By: #### GEN #### [address] [address] Blood Cultures processed at: [facility] Observed: 12/31/2017 Status: F Source: [facility] AF[employer]: TISSUE -UHE 10:42 [facility] REPOSITORY SOURCE: SURGICAL WOUND: Left Lower Tissue COMMENT: Tiny Tissue MICROSCOPIC: No Acid Fast Bacillus Seen :Examined by Fluorochrome Stain RESULT: NO GROWTH DAY 42 42 REPORT STATUS: 02/11/2018 FINAL Performed By: #### AFBT #### [address] [address] Blood Cultures processed at: [facility] Observed: 12/31/2017 Status: F Source: [facility] FUNGUS CULTURE -UHE 10:42 [facility] REPOSITORY SOURCE: SURGICAL WOUND: Left Lower Leg Tissue COMMENT: Cultures held 28 days. Tiny Tissue RESULT: GERARD PARAPSILOSIS COMPLEX : 1 COLONY :Identification by MALDI-TOF mass spectrometer. ---> FARIDA (NOTE) Identification was performed on the MALDI-TOF mass spectrometer Biotyper. This test was developed and its performance characteristics determined by [facility] at [facility]. It has not been cleared or approved by the FDA. The laboratory is regulated under CLIA as qualified to perform high- complexity testing. This test is used for cl inical purposes. It should not be regarded as investigational or for research REPORT STATUS: 01/28/2018 FINAL Performed By: #### FUN #### [address] [address] Blood Cultures processed at: [facility] Observed: 12/31/2017 Status: F Source: [facility] ANAEROBE CULTURE -UHE 10:42 AM [facility] REPOSITORY SOURCE: SURGICAL WOUND: Left Lower Leg Tissue COMMENT: Tiny Tissue MICROSCOPIC: See Routine Culture RESULT: NO ANAEROBIC GROWTH REPORT STATUS: 01/06/2018 FINAL Performed By: #### REINALDO #### [address] [address] Blood Cultures processed at: [facility] *POC GLUCOSE BATTERY Collected: 12/31/2017 Status: F Source: [facility] 7:14 AM [facility] REPOSITORY TYPE CODE TESTS RESULT OUT OF REFERENCE UNITS RANGE LAB GLUP 70-99 mg/dL Glucose (poc 83 device) Result Comment: Notified RNread back No BRAVE per RN: PATIENT TYPE LAB PCSTYP *POC Capillary SAMPLE TYPE Blood HEMOGRAM (CBC AND Collected: 12/31/2017 Status: F Source: [facility] PLATELET) 2:40 AM [facility] REPOSITORY TYPE CODE TESTS RESULT [...] HEMOGC, PTPTT, CHM7, HFP, MGO #### [facility] [address] [place] [address] [place] [address] PT*PTT Collected: 12/31/2017 Status: F Source: [facility] 2:40 AM [facility] REPOSITORY TYPE CODE TESTS RESULT OUT OF RANGE REFERENCE UNITS LAB PT 11.9-14.2 sec High PT 15.4 LAB INR 0.9-1.1 High INR 1.2 LAB PTT 24.0-34.3 sec High PTT 38.4 Performed By: #### HEMOGC, PTPTT, CHM7, HFP, MGO #### [facility] [address] [place] [address] [place] [address] CHEM 7 Collected: 12/31/2017 Status: F Source: [facility] 2:40 AM [facility] REPOSITORY TYPE CODE TESTS RESULT [...] >60 mL/min/1.73 Low sqM Est GFR,non 39 [facility] GFRA >60 mL/min/1.73 Low sqM Est GFR, 47 Performed By: #### HEMOGC, PTPTT, CHM7, HFP, MGO #### [facility] [address] [place] [address] [place] [address] HEPATIC FUNCTION Collected: 12/31/2017 Status: F Source: [facility] PANEL 2:40 AM [facility] REPOSITORY TYPE CODE TESTS RESULT [...] HEMOGC, PTPTT, CHM7, HFP, MGO #### [facility] [address] [place] [address] [place] [address] MAGNESIUM Collected: 12/31/2017 Status: F Source: [facility] 2:40 AM [facility] REPOSITORY TYPE CODE TESTS RESULT OUT OF REFERENCE UNITS RANGE LAB MG 1.6-2.6 mg/dL Magnesium 2.2 Performed By: #### HEMOGC, PTPTT, CHM7, HFP, MGO #### [facility] [address] [place] [address] [place] [address] *POC GLUCOSE BATTERY Collected: 12/30/2017 Status: F Source: [facility] 8:51 PM [facility] REPOSITORY TYPE CODE TESTS RESULT OUT OF REFERENCE UNITS RANGE LAB GLUP 70-99 mg/dL High Glucose (poc 165 device) Result Comment: Notified RNread back No BRAVE per RN: PATIENT TYPE LAB PCSTYP *POC Capillary SAMPLE TYPE Blood *POC GLUCOSE BATTERY Collected: 12/30/2017 Status: F Source: [facility] 4:30 PM [facility] REPOSITORY TYPE CODE TESTS RESULT OUT OF REFERENCE UNITS RANGE LAB GLUP 70-99 mg/dL High Glucose (poc 179 device) Result Comment: No BRAVE per RN: PATIENT TYPE LAB PCSTYP *POC Capillary SAMPLE TYPE Blood *POC GLUCOSE BATTERY Collected: 12/30/2017 Status: F Source: [facility] 11:15 AM [facility] REPOSITORY TYPE CODE TESTS RESULT OUT OF REFERENCE UNITS RANGE LAB GLUP 70-99 mg/dL High Glucose (poc 232 device) Result Comment: No BRAVE per RN: PATIENT TYPE LAB PCSTYP *POC Capillary SAMPLE TYPE Blood *POC GLUCOSE BATTERY Collected: 12/30/2017 Status: F Source: [facility] 7:28 AM [facility] REPOSITORY TYPE CODE TESTS RESULT OUT OF REFERENCE UNITS RANGE LAB GLUP 70-99 mg/dL High Glucose (poc 106 device) Result Comment: No BRAVE per RN: PATIENT TYPE LAB PCSTYP *POC Capillary SAMPLE TYPE Blood HEMOGRAM (CBC AND Collected: 12/30/2017 Status: F Source: [facility] PLATELET) 2:32 AM [facility] REPOSITORY TYPE CODE TESTS RESULT [...] HEMOGC, CHM7, HFP, MGO, PTPTT #### [facility] [address] [place] [id number] [facility] [address] [place] [id number] CHEM 7 Collected: 12/30/2017 Status: F Source: [facility] 2:32 [facility] REPOSITORY TYPE CODE TESTS RESULT [...] >60 mL/min/1.73 Low sqM Est GFR,non 36 Dutch LAB GFRA >60 mL/min/1.73 Low sqM Est GFR, 43 Performed By: #### HEMOGC, CHM7, HFP, MGO, PTPTT #### [facility] [address] [place] [id number] [place] [address] [place] [id number] HEPATIC FUNCTION Collected: 12/30/2017 Status: F Source: [facility] PANEL 2:32 [facility] REPOSITORY TYPE CODE TESTS RESULT [...] HEMOGC, CHM7, HFP, MGO, PTPTT #### [facility] [address] [place] [id number] [facility] [address] [place] [id number] MAGNESIUM Collected: 12/30/2017 Status: F Source: [facility] 2:32 AM [facility] REPOSITORY TYPE CODE TESTS RESULT OUT OF REFERENCE UNITS RANGE LAB MG 1.6-2.6 mg/dL Magnesium 2.3 Performed By: #### HEMOGC, CHM7, HFP, MGO, PTPTT #### [facility] [address] [place] [id number] [facility] [address] [place] [id number] PT*PTT Collected: 12/30/2017 Status: F Source: [facility] 2:32 AM [facility] REPOSITORY TYPE CODE TESTS RESULT OUT OF RANGE REFERENCE UNITS LAB PT 11.9-14.2 sec High PT 15.6 LAB INR 0.9-1.1 High INR 1.3 LAB PTT 24.0-34.3 sec High PTT 36.8 Performed By: #### HEMOGC, CHM7, HFP, MGO, PTPTT #### [facility] [address] [place] [phone] [place] [address] [address] [place] [address] *POC GLUCOSE BATTERY Collected: 12/29/2017 Status: F Source: [facility] 8:45 PM [facility] REPOSITORY TYPE CODE TESTS RESULT OUT OF REFERENCE UNITS RANGE LAB GLUP 70-99 mg/dL High Glucose (poc 199 device) Result Comment: Notified RNread back No BRAVE per RN: PATIENT TYPE LAB PCSTYP *POC Capillary SAMPLE TYPE Blood *POC GLUCOSE BATTERY Collected: 12/29/2017 Status: F Source: [facility] 4:23 PM [facility] REPOSITORY TYPE CODE TESTS RESULT OUT OF REFERENCE UNITS RANGE LAB GLUP 70-99 mg/dL High Glucose (poc 225 device) Result Comment: No BRAVE per RN: PATIENT TYPE LAB PCSTYP *POC Capillary SAMPLE TYPE Blood *POC GLUCOSE BATTERY Collected: 12/29/2017 Status: F Source: [facility] 12:55 PM [facility] REPOSITORY TYPE CODE TESTS RESULT OUT OF REFERENCE UNITS RANGE LAB GLUP 70-99 mg/dL High Glucose (poc 213 device) Result Comment: No BRAVE per RN: PATIENT TYPE LAB PCSTYP *POC Capillary SAMPLE TYPE Blood US RENAL Observed: 12/29/2017 Status: F Source: [facility] 11:40 AM [facility] REPOSITORY EXAM: US RENAL, 12/29/2017 11:22 AM [...] ALYSIS REFLEX Collected: 12/29/2017 Status: F Source: [facility] CULTURE 9:08 AM [facility] REPOSITORY TYPE CODE TESTS RESULT OUT OF RANGE REFERENCE UNITS LAB PROCESS CHECKER Clear Appearance Clear Urine LAB SPGR 1.001-1.035 Specific 1.014 [place] urine LAB UGL Negative mg/dL Glucose Negative Urine LAB UKET Negative Ketones Negative Urine LAB UBLD Negative Blood Urine Large Abnormal LAB UPH 5.0-7.0 pH Urine 6.0 LAB UPR Negative mg/dL Protein 100 Abnormal Urine LAB UNTR Negative Nitrites Negative Urine LAB ULEU Negative Leukocyte Negative Esterase LAB COLR Yellow Color Lamar - Abnormal Result of urine dipstick analysis may be inaccurate due to color interference. Clinical correlation is recommended. LAB UURO <2.0 EU/dL 1.0 Urobilinogen urine LAB UWBC 0-5 /HPF WBC Urine 0-5 LAB URBC 0-2 /HPF RBC Urine >20 Abnormal LAB BACT Absent Bacteria Absent LAB UCOM COMMENT None URINE LAB EPIS /HPF Squamous 1+ Epithelial Performed By: #### URIN1 #### [facility] [address] [place] [address] CREATININE, URINE - Collected: 12/29/2017 Status: F Source: [facility] RANDOM 9:08 AM [facility] REPOSITORY TYPE CODE TESTS RESULT OUT OF RANGE REFERENCE UNITS LAB CREU1 mg/dL 58.00 Creatinine, urine mg/dL Result Comment: The reference range has not been established for random urine specimens. The test result should be integrated into the clinical context for interpretation. Performed By: #### UCRER, UNAR #### [facility] [address] [place] [id number] [place] [address] [address] [place] [id number] SODIUM, URINE - Collected: 12/29/2017 Status: F Source: [facility] RANDOM 9:08 AM [facility] REPOSITORY TYPE CODE TESTS RESULT OUT OF REFERENCE UNITS RANGE LAB NAU1 mmol/L URINE SODIUM 54 Result Comment: The reference range has not been established for random urine specimens. The test result should be integrated into the clinical context for interpretation. Performed By: #### UCRER, UNAR #### [facility] [address] [place] [phone] [place] [address] [place] [id number] *POC GLUCOSE BATTERY Collected: 12/29/2017 Status: F Source: [facility] 9:07 AM [facility] REPOSITORY TYPE CODE TESTS RESULT OUT OF REFERENCE UNITS RANGE LAB GLUP 70-99 mg/dL High Glucose (poc 140 device) Result Comment: No BRAVE per RN: PATIENT TYPE LAB PCSTYP *POC Capillary SAMPLE TYPE Blood HEMOGRAM (CBC AND Collected: 12/29/2017 Status: F Source: [facility] PLATELET) 2:26 AM [facility] REPOSITORY TYPE CODE TESTS RESULT [...] HEMANDREWC, CHM7, HFP, MGO, PTPTT #### [facility] [address] [place] [phone] [place] [address] [place] [id number] CHEM 7 Collected: 12/29/2017 Status: F Source: [facility] 2:26 AM [facility] REPOSITORY TYPE CODE TESTS RESULT [...] >60 mL/min/1.73 Low sqM Est GFR,non 27 Dutch LAB GFRA >60 mL/min/1.73 Low sqM Est GFR, 32 Performed By: #### HEMANDREWC, CHM7, HFP, MGO, PTPTT #### [facility] [address] [place] [phone] [place] [address] [place] [id number] HEPATIC FUNCTION Collected: 12/29/2017 Status: F Source: [facility] PANEL 2:26 AM [facility] REPOSITORY TYPE CODE TESTS RESULT [...] HEMOGC, CHM7, HFP, MGO, PTPTT #### [facility] [address] [place] [phone] [place] [address] [place] [id number] MAGNESIUM Collected: 12/29/2017 Status: F Source: [facility] 2:26 AM [facility] REPOSITORY TYPE CODE TESTS RESULT OUT OF REFERENCE UNITS RANGE LAB MG 1.6-2.6 mg/dL Magnesium 2.0 Performed By: #### HEMOGC, CHM7, HFP, MGO, PTPTT #### [facility] [address] [place] [phone] [place] [address] [address] [place] [address] PT*PTT Collected: 12/29/2017 Status: F Source: [facility] 2:26 AM [facility] REPOSITORY TYPE CODE TESTS RESULT OUT OF RANGE REFERENCE UNITS LAB PT 11.9-14.2 sec High PT 16.3 LAB INR 0.9-1.1 High INR 1.3 LAB PTT 24.0-34.3 sec High PTT 40.6 Performed By: #### HEMOGC, CHM7, HFP, MGO, PTPTT #### [facility] [address] [place] [address] [place] [address] *POC GLUCOSE BATTERY Collected: 12/28/2017 Status: F Source: [facility] 9:07 PM [facility] REPOSITORY TYPE CODE TESTS RESULT OUT OF REFERENCE UNITS RANGE LAB GLUP 70-99 mg/dL High Glucose (poc 223 device) Result Comment: Notified RNread back No BRAVE per RN: PATIENT TYPE LAB PCSTYP *POC Capillary SAMPLE TYPE Blood *POC GLUCOSE BATTERY Collected: 12/28/2017 Status: F Source: [facility] 4:33 PM [facility] REPOSITORY TYPE CODE TESTS RESULT OUT OF REFERENCE UNITS RANGE LAB GLUP 70-99 mg/dL High Glucose (poc 179 device) Result Comment: No BRAVE per RN: PATIENT TYPE LAB PCSTYP *POC Capillary SAMPLE TYPE Blood *POC GLUCOSE BATTERY Collected: 12/28/2017 Status: F Source: [facility] 11:44 AM [facility] REPOSITORY TYPE CODE TESTS RESULT OUT OF REFERENCE UNITS RANGE LAB GLUP 70-99 mg/dL High Glucose (poc 265 device) Result Comment: No BRAVE per RN: PATIENT TYPE LAB PCSTYP *POC Capillary SAMPLE TYPE Blood HEMOGRAM (CBC AND Collected: 12/28/2017 Status: F Source: [facility] PLATELET) 2:58 AM [facility] REPOSITORY TYPE CODE TESTS RESULT [...] HEMOGC, CHM7, HFP, MGO, PTPTT #### [facility] [address] [place] [address] [place] [address] CHEM 7 Collected: 12/28/2017 Status: F Source: [facility] 2:58 AM [facility] REPOSITORY TYPE CODE TESTS RESULT [...] >60 mL/min/1.73 Low sqM Est GFR,non 33 Dutch LAB GFRA >60 mL/min/1.73 Low sqM Est GFR, 40 Performed By: #### HEMOGC, CHM7, HFP, MGO, PTPTT #### [facility] [address] [place] [id number] [facility] [address] [place] [address] HEPATIC FUNCTION Collected: 12/28/2017 Status: F Source: [facility] 2:58 AM [facility] REPOSITORY TYPE CODE TESTS RESULT [...] #### HEMOGC, CHM7, HFP, MGO, PTPTT #### [facility] [address] [place] [address] [place] [address] MAGNESIUM Collected: 12/28/2017 Status: F Source: [facility] 2:58 AM [facility] REPOSITORY TYPE CODE TESTS RESULT OUT OF REFERENCE UNITS RANGE LAB MG 1.6-2.6 mg/dL Magnesium 1.9 Performed By: #### HEMOGC, CHM7, HFP, MGO, PTPTT #### [facility] [address] [place] [phone] [place] [address] [address] [place] [address] PT*PTT Collected: 12/28/2017 Status: F Source: [facility] 2:58 AM [facility] REPOSITORY TYPE CODE TESTS RESULT OUT OF RANGE REFERENCE UNITS LAB PT 11.9-14.2 sec High PT 16.4 LAB INR 0.9-1.1 High INR 1.3 LAB PTT 24.0-34.3 sec High PTT 45.3 Performed By: #### HEMOGC, CHM7, HFP, MGO, PTPTT #### [facility] [address] [place], [place] [phone] [place] [address] [address] [place] [address] *POC GLUCOSE BATTERY Collected: 12/27/2017 Status: F Source: [facility] 9:05 PM [facility] REPOSITORY TYPE CODE TESTS RESULT OUT OF REFERENCE UNITS RANGE LAB GLUP 70-99 mg/dL High Glucose (poc 216 device) Result Comment: No BRAVE per RN: PATIENT TYPE LAB PCSTYP *POC Capillary SAMPLE TYPE Blood *POC GLUCOSE BATTERY Collected: 12/27/2017 Status: F Source: [facility] 4:11 PM [facility] REPOSITORY TYPE CODE TESTS RESULT OUT OF REFERENCE UNITS RANGE LAB GLUP 70-99 mg/dL High Glucose (poc 222 device) Result Comment: No BRAVE per RN: PATIENT TYPE LAB PCSTYP *POC Capillary SAMPLE TYPE Blood *POC GLUCOSE BATTERY Collected: 12/27/2017 Status: F Source: [facility] 1:35 PM [facility] REPOSITORY TYPE CODE TESTS RESULT OUT OF REFERENCE UNITS RANGE LAB GLUP 70-99 mg/dL High Glucose (poc 179 device) Result Comment: No BRAVE per RN: PATIENT TYPE LAB PCSTYP *POC Capillary SAMPLE TYPE Blood *POC GLUCOSE BATTERY Collected: 12/27/2017 Status: F Source: [facility] 10:50 AM [facility] REPOSITORY TYPE CODE TESTS RESULT OUT OF REFERENCE UNITS RANGE LAB GLUP 70-99 mg/dL High Glucose (poc 212 device) Result Comment: No BRAVE per RN: PATIENT TYPE LAB PCSTYP *POC Capillary SAMPLE TYPE Blood *POC GLUCOSE BATTERY Collected: 12/27/2017 Status: F Source: [facility] 7:06 AM [facility] REPOSITORY TYPE CODE TESTS RESULT OUT OF REFERENCE UNITS RANGE LAB GLUP 70-99 mg/dL High Glucose (poc 161 device) Result Comment: Notified RNread back No BRAVE per RN: PATIENT TYPE LAB PCSTYP *POC Capillary SAMPLE TYPE Blood HEMOGRAM (CBC AND Collected: 12/27/2017 Status: F Source: [facility] PLATELET) 3:31 AM [facility] REPOSITORY TYPE CODE TESTS RESULT [...] HEMOGC, PTPTT, CHM7, HFP, MGO #### [facility] [address] [place] [address] [place] [address] PT*PTT Collected: 12/27/2017 Status: F Source: [facility] 3:31 AM [facility] REPOSITORY TYPE CODE TESTS RESULT OUT OF RANGE REFERENCE UNITS LAB PT 11.9-14.2 sec High PT 16.9 LAB INR 0.9-1.1 High INR 1.4 LAB PTT 24.0-34.3 sec High PTT 38.1 Performed By: #### HEMOGC, PTPTT, CHM7, HFP, MGO #### [facility] [address] [place] [address] [place] [address] CHEM 7 Collected: 12/27/2017 Status: F Source: [facility] 3:31 [facility] REPOSITORY TYPE CODE TESTS RESULT [...] >60 mL/min/1.73 Low sqM Est GFR,non 33 Dutch LAB GFRA >60 mL/min/1.73 Low sqM Est GFR, 39 Performed By: #### HEMOGC, PTPTT, CHM7, HFP, MGO #### [facility] [address] [place] [address] [place] [address] HEPATIC FUNCTION Collected: 12/27/2017 Status: F Source: [facility] PANEL 3:31 AM [facility] REPOSITORY TYPE CODE TESTS RESULT [...] HEMOGC, PTPTT, CHM7, HFP, MGO #### [facility] [address] [place] [address] [place] [address] MAGNESIUM Collected: 12/27/2017 Status: F Source: [facility] 3:31 AM [facility] REPOSITORY TYPE CODE TESTS RESULT OUT OF REFERENCE UNITS RANGE LAB MG 1.6-2.6 mg/dL Magnesium 2.0 Performed By: #### HEMOGC, PTPTT, CHM7, HFP, MGO #### [facility] [address] [place] [address] [place] [address] *POC GLUCOSE BATTERY Collected: 12/26/2017 Status: F Source: [facility] 9:04 PM [facility] REPOSITORY TYPE CODE TESTS RESULT OUT OF REFERENCE UNITS RANGE LAB GLUP 70-99 mg/dL High Glucose (poc 184 device) Result Comment: Notified RNread back No BRAVE per RN: PATIENT TYPE LAB PCSTYP *POC Capillary SAMPLE TYPE Blood *POC GLUCOSE BATTERY Collected: 12/26/2017 Status: F Source: [facility] 4:47 PM [facility] REPOSITORY TYPE CODE TESTS RESULT OUT OF REFERENCE UNITS RANGE LAB GLUP 70-99 mg/dL High Glucose (poc 252 device) Result Comment: Notified RNread back No BRAVE per RN: PATIENT TYPE LAB PCSTYP *POC Capillary SAMPLE TYPE Blood *POC GLUCOSE BATTERY Collected: 12/26/2017 Status: F Source: [facility] 11:30 AM [facility] REPOSITORY TYPE CODE TESTS RESULT OUT OF REFERENCE UNITS RANGE LAB GLUP 70-99 mg/dL High Glucose (poc 202 device) Result Comment: No BRAVE per RN: PATIENT TYPE LAB PCSTYP *POC Capillary SAMPLE TYPE Blood *POC GLUCOSE BATTERY Collected: 12/26/2017 Status: F Source: [facility] 7:22 AM [facility] REPOSITORY TYPE CODE TESTS RESULT OUT OF REFERENCE UNITS RANGE LAB GLUP 70-99 mg/dL High Glucose (poc 118 device) Result Comment: No BRAVE per RN: PATIENT TYPE LAB PCSTYP *POC Capillary SAMPLE TYPE Blood NUC LUNG VENTILATION/PERFUSION Observed: Status: F Source: [facility] 12/26/2017 6:03 AM [facility] REPOSITORY EXAM: NUC LUNG VENTILATION/PERFUSION, 12/26/2017 05:36 [...] GRAM ENOCH Collected: 12/26/2017 Status: F Source: [facility] 5:37 AM [facility] REPOSITORY TYPE CODE TESTS RESULT [...] 0.0 Performed By: #### HEMOGJ #### [facility] [address] [place] [address] #### IRBC #### [facility] [address] [place] [address] [place] [address] PT*PTT - CHRI Collected: 12/26/2017 Status: F Source: [facility] 5:37 AM [facility] REPOSITORY TYPE CODE TESTS RESULT OUT OF RANGE REFERENCE UNITS LAB PT 11.9-14.2 sec High PT 16.6 LAB INR 0.9-1.1 High INR 1.4 LAB PTT 24.0-34.3 sec High PTT 34.7 Performed By: #### HEMOGJ #### [facility], [facility] [address] [place] [address] #### IRBC #### [facility] [address] [place] [address] [place] [address] HEPATIC FUNCTIONS - Collected: 12/26/2017 Status: F Source: [facility] 5:37 AM [facility] REPOSITORY TYPE CODE TESTS RESULT [...] 6.3 Performed By: #### HEMOGTaylor #### [facility] [address] [place] [id number] #### IRBC #### [facility] [address] [place] [phone] [place] [address] [place] [id number] CHEM 7 - CHRI Collected: 12/26/2017 Status: F Source: [facility] 5:37 AM [facility] REPOSITORY TYPE CODE TESTS RESULT [...] >60 mL/min/1.73 Low sqM Est GFR,non 40 Dutch LAB GFRA >60 mL/min/1.73 Low sqM Est GFR, 48 LAB GAP 7-17 mmol/L Anion Gap 11 LAB BC BUN/CREA Ratio 14 LAB OSMC 278-305 mOsm/kg Osmolality 288 (Calc) Performed By: #### HEMOGJ #### [facility] [address] [place] [address] #### IRBC #### [facility] [address] [place] [address] [facility] [address] [place] [address] MAGNESIUM - CHRI Collected: 12/26/2017 Status: F Source: [facility] 5:37 AM [facility] REPOSITORY TYPE CODE TESTS RESULT OUT OF REFERENCE UNITS RANGE LAB MG 1.6-2.6 mg/dL Magnesium 2.1 Performed By: #### HEMOGJ #### [facility], [facility] [address] [place], [place] [id number] #### IRBC #### [facility] [address] [place] [id number] [facility] [address] [place] [address] [id number] IRON*TIBC (TRANSFERRIN) Collected: 12/26/2017 Status: F Source: [facility] 5:37 AM [facility] REPOSITORY TYPE CODE TESTS RESULT OUT OF REFERENCE UNITS RANGE LAB IRON 40-174 mcg/dL Iron 82 LAB TIBC 298-596 mcg/dL Total Iron Binding Capacity 390 LAB IRONS 20-55 % *Iron*Saturation 21 LAB MORALES 200-400 mg/dL Transferrin 262 Performed By: #### HEMOGJ #### [facility], [facility] [address] [place] [address] #### IRBC #### [facility] [address] [place] [address] [place] [id number] FERRITIN Collected: 12/26/2017 Status: F Source: [facility] 5:37 AM [facility] REPOSITORY TYPE CODE TESTS RESULT OUT OF RANGE REFERENCE UNITS LAB FERI 10-291 ng/mL *Ferritin 30 Performed By: #### FERIB, B12B, FOLSB #### [facility] [address] [place] [address] [place] [address] VITAMIN B12 Collected: 12/26/2017 Status: F Source: [facility] 5:37 AM [facility] REPOSITORY TYPE CODE TESTS RESULT OUT OF RANGE REFERENCE UNITS LAB B12 211-911 pg/mL High 1277 *Vitamin*B12 Performed By: #### FERIB, B12B, FOLSB #### [facility] [address] [place] [address] [facility] [address] [place] [address] FOLATE, SERUM Collected: 12/26/2017 Status: F Source: [facility] 5:37 AM [facility] REPOSITORY TYPE CODE TESTS RESULT OUT OF RANGE REFERENCE UNITS LAB FOLS >5.38 ng/mL 5.89 *Folate*Seru m Performed By: #### FERIB, B12B, FOLSB #### [facility] [address] [place] [address] [place] [address] [facility] [address] [place], [place] [address] XR CHEST AP PORTABLE Observed: 12/26/2017 Status: F Source: [facility] ED 2:33 AM [facility] REPOSITORY EXAM: XR CHEST AP PORTABLE ED, [...] - CHRI Collected: 12/26/2017 Status: F Source: [facility] 12:41 AM [facility] REPOSITORY TYPE CODE TESTS RESULT OUT OF RANGE REFERENCE UNITS LAB PT 11.9-14.2 sec High PT 16.0 LAB INR 0.9-1.1 High INR 1.3 LAB PTT 24.0-34.3 sec High PTT 36.5 Performed By: #### CBCDFJ #### [facility], [facility] [address] [place] [address] CHEM 7 - CHRI Collected: 12/26/2017 Status: F Source: [facility] 12:41 AM [facility] REPOSITORY TYPE CODE TESTS RESULT [...] >60 mL/min/1.73 Low sqM Est GFR,non 45 Dutch LAB GFRA >60 mL/min/1.73 Low sqM Est GFR, 54 LAB GAP 7-17 mmol/L Anion Gap 10 LAB BC BUN/CREA Ratio 17 LAB OSMC 278-305 mOsm/kg Osmolality 283 (Calc) Performed By: #### ISSACJ #### Enoch [facility] [address] [place] [address] CALCIUM - CHRI Collected: 12/26/2017 Status: F Source: [facility] 12:41 AM [facility] REPOSITORY TYPE CODE TESTS RESULT OUT OF REFERENCE UNITS RANGE LAB CA 8.6-10.5 mg/dL Calcium 8.8 Performed By: #### ISSACJ #### Enoch [facility], [facility] [address] [place] [address] HEPATIC FUNCTIONS - Collected: 12/26/2017 Status: F [facility] REPOSITORY TYPE CODE TESTS RESULT [...] 6.5 Performed By: #### BOOMDFJ #### Enoch [facility] [address] [place] [address] INORG PHOSPHATE - CHRI Collected: 12/26/2017 Status: F Source: [facility] 12:41 [facility] REPOSITORY TYPE CODE TESTS RESULT OUT OF REFERENCE UNITS RANGE LAB IP 2.2-4.6 mg/dL Inorg Phosphate 3.4 Performed By: #### BOOMDFJ #### Enoch [facility] [address] [place] [address] MAGNESIUM - CHRI Collected: 12/26/2017 Status: F Source: [facility] 12:41 [facility] REPOSITORY TYPE CODE TESTS RESULT OUT OF REFERENCE UNITS RANGE LAB MG 1.6-2.6 mg/dL Magnesium 2.1 Performed By: #### CBCDFJ #### Enoch [facility] [address] [place] [address]20 TROPONIN - CHRI Collected: 12/26/2017 Status: F Source: [facility] 12:41 AM [facility] REPOSITORY TYPE CODE TESTS RESULT OUT OF REFERENCE UNITS RANGE LAB TROP <0.11 ng/mL Troponin I 0.01 Performed By: #### CBCDFJ #### Enoch [facility], [facility] [address] [place], [place] [address] CBC WITH DIFF ENOCH Collected: 12/26/2017 Status: F Source: [facility] 12:41 AM [facility] REPOSITORY TYPE CODE TESTS RESULT [...] 0.98 Low LAB AMONO 0.24-0.86 K/uL Abs Sutter 0.65 LAB AEOS 0.04-0.36 K/uL Abs Eos 0.25 LAB ABASO 0.01-0.08 K/uL Abs Baso 0.04 Performed By: #### CBCDFJ #### Enoch [facility], [facility] [address] [place], [place] [address] Observed: 12/26/2017 Status: F Source: [facility] BLOOD:ROUTINE I 12:41 AM [facility] REPOSITORY SOURCE: BLOOD, PERIPHERAL: Site not specified RESULT: NO GROWTH DAY 5 OF 5 REPORT STATUS: 12/31/2017 FINAL Performed By: #### FAST #### [address] [address] Blood Cultures processed at: [facility] Observed: 12/26/2017 Status: F Source: [facility] BLOOD:ROUTINE II 12:41 AM [facility] REPOSITORY SOURCE: BLOOD, PERIPHERAL: Site not specified RESULT: NO GROWTH DAY 5 OF 5 REPORT STATUS: 12/31/2017 FINAL Performed By: #### FAST2 #### [place] [id number] Blood Cultures processed at: [facility] XR ANKLE 3+ VIEWS Observed: 12/25/2017 Status: F Source: [facility] [place] 7:18 PM [facility] REPOSITORY Exam Date/Time: 12/25/2017 19:29 EDT Reason for Exam: Pain Report Exam: Left ankle, 3 views INDICATION: Pain FINDINGS: There is soft tissue swelling over the lateral malleolus. There is no fracture or dislocation. IMPRESSION: Soft tissue swelling. FINAL REPORT Dictated: 12/25/2017 7:59 pm Ramiro Valdez MD Signed (Electronic Signature): 12/25/2017 7:59 pm Signed by: Ramiro Valdez MD Technologist: [facility] BMP Collected: 12/25/2017 Status: F Source: [facility] 7:01 PM [facility] REPOSITORY TYPE CODE TESTS RESULT OUT OF RANGE REFERENCE UNITS LAB 57862098(L 70-99 mg/dL OINC) High Glucose Lvl 199 LAB 00760598(L 8.4-10.2 mg/dL OINC) Low Calcium Lvl 8.2 LAB 64119575(L 136-145 mEq/L OINC) Low Sodium Lvl 130 LAB 03310971(L 3.5-5.1 mEq/L OINC) Normal Potassium Lvl 3.8 LAB 39431355(L 98-107 mEq/L OINC) Chloride Normal 102 LAB 66191239(L 24.0-30.0 mEq/L OINC) Low CO2 21.0 LAB 51808331(L 7-18 mg/dL OINC) High BUN 20 LAB 8706207(LO 0.6-1.3 mg/dL INC) Normal Creatinine 1.3 LAB 50830667(L 5.4-30.0 ratio OINC) Normal BUN/Creat Ratio 15.4 Performed By: #### [id number] #### DLMali Wolfe[facility]5 [place] [id number] EGFR Collected: 12/25/2017 Status: F Source: [place] [address] [place] [address] REPOSITORY Order Comment: Order added by Discern Expert. TYPE CODE TESTS RESULT OUT OF RANGE REFERENCE UNITS LAB 26854756(LO mL/min/1.73 INC) m2 Normal eGFR 41 LAB 95288745(LO mL/min/1.73 INC) m2 Normal eGFR AA 50 Performed By: #### [id number] #### DL [employer] [facility] [place] [address] LACTIC ACID Collected: 12/25/2017 Status: F Source: [place] [address] [place] [address] REPOSITORY TYPE CODE TESTS RESULT OUT OF RANGE REFERENCE UNITS LAB 26042024(LO 0.5-2.2 mmol/L INC) Normal Lactic Acid 1.6 Lvl Performed By: #### [id number] #### [facility] [address] [place] [address] CBC W/ AUTO DIFF Collected: 12/25/2017 Status: F Source: [facility] [address] [place] [address] REPOSITORY TYPE CODE TESTS RESULT OUT OF RANGE REFERENCE UNITS LAB 62309154(L 3.6-11.0 E3/mcL OINC) Low WBC 3.5 LAB 34297717(L 3.90-5.40 E6/mcL OINC) Low RBC 3.16 LAB 08459093(L 12.0-16.0 G/DL OINC) Low Hgb 8.7 LAB 20070489(L 36.0-48.0 % OINC) Low Hct 25.9 LAB 23137984(L 11.5-14.5 % OINC) High RDW 19.0 LAB 60245683(L 27.0-31.0 pg OINC) Normal MCH 27.5 LAB 92383695(L 33.0-37.0 G/DL OINC) Normal MCHC 33.5 LAB 86406070(L 78.0-100.0 fL OINC) Normal MCV 82.0 LAB 97449582(L 7.4-11.0 fL OINC) Low MPV 6.6 LAB 59757850(L 130-400 E3/mcL OINC) Low Platelet 81 Performed By: #### [id number] #### DL RemHemo [address] [place] [address] MORPH Collected: 12/25/2017 Status: F Source: [place] [address]:[address] [place] [address] REPOSITORY Order Comment: Order Added by Discern Expert. TYPE CODE TESTS RESULT OUT OF REFERENCE UNITS RANGE LAB 47062355( LOINC) RBC Morph SEE Normal MORPHOLOGY LAB 60211967( LOINC) Hypochromasia 2+ Normal LAB 69073625( LOINC) Poikilocytosis 1+ Normal LAB 07220528( LOINC) Anisocytosis 1+ Normal Performed By: #### [id number] #### DL WolfeHemo [address] [place] [address] ZZPLT MORPH Collected: 12/25/2017 Status: F Source: [place] [address]:[address] [place] [address] REPOSITORY TYPE CODE TESTS RESULT OUT OF RANGE REFERENCE UNITS LAB 81895478(L OINC) Normal Platelet DECREASED Estimate LAB 86580835(L OINC) Normal Platelet Morph NORMAL Performed By: #### [id number] #### DL RemHemo [address] [place] [address] AUTO DIFF Collected: 12/25/2017 Status: F Source: [place] [address]:[address] [place] [address] REPOSITORY Order Comment: Order Added by Discern Expert. TYPE CODE TESTS RESULT OUT OF RANGE REFERENCE UNITS LAB 60947246(L 37.0-75.0 % OINC) Normal Neutro Auto 59.5 LAB 66513705(L 20.0-55.0 % OINC) Normal Lymph Auto 22.9 LAB 68035730(L 0.0-10.0 % OINC) High Sutter Auto 11.1 LAB 09585629(L 0.0-11.0 % OINC) Normal Eos Auto 5.3 LAB 35134459(L 0.0-2.0 % OINC) Normal Basophil Auto 1.2 LAB 85337661(L 1.4-6.5 E3/mcL OINC) Normal Neutro 2.1 Absolute LAB 49767292(L 1.2-3.4 E3/mcL OINC) Low Lymph Absolute 0.8 LAB 57648007(L 0.0-0.7 E3/mcL OINC) Normal Sutter Absolute 0.4 LAB 29032118(L 0.0-0.7 E3/mcL OINC) Normal Eos Absolute 0.2 LAB 78271117(L 0.0-0.2 E3/mcL OINC) Normal Basophil 0.0 Absolute Performed By: #### [id number] #### DL RemHemo [address] [place] [address] Observed: 12/25/2017 Status: F Source: [place] BLOOD 7:01 PM [facility] REPOSITORY Final Report: No growth at 5 Days Performed By: #### [id number] #### DL Microbiology Automated Subsection [address] [place] [address] Observed: 12/22/2017 Status: F Source: [place] WOUND 2:57 PM [facility] REPOSITORY Final Report: No growth Gram Stain Report: No organisms seen. Performed By: #### [id number] #### DL Microbiology Subsection [address] [place] [address] GLUCOSE POC Collected: 12/19/2017 Status: F Source: [facility] 11:27 AM [facility] REPOSITORY TYPE CODE TESTS RESULT OUT OF REFERENCE UNITS RANGE LAB 53567951(LO 70-99 mg/dL INC) High Glucose POC 255 Performed By: #### [id number] #### DL POC Subsection [address] [place] [address] GLUCOSE POC Collected: 12/19/2017 Status: F Source: [place] 7:42 AM [facility] REPOSITORY TYPE CODE TESTS RESULT OUT OF REFERENCE UNITS RANGE LAB 47959983(LO 70-99 mg/dL INC) High Glucose POC 106 Performed By: #### [id number] #### DL POC Subsection [address] [place] [address] BMP Collected: 12/19/2017 Status: F Source: [place] 5:54 AM [facility] REPOSITORY TYPE CODE TESTS RESULT OUT OF RANGE REFERENCE UNITS LAB 34745775(L 70-99 mg/dL OINC) High Glucose Lvl 101 LAB 45535436(L 7-18 mg/dL OINC) High BUN 22 LAB 7646592(LO 0.6-1.3 mg/dL INC) High Creatinine 1.4 LAB 27858601(L 5.4-30.0 ratio OINC) Normal BUN/Creat Ratio 15.7 LAB 32006780(L 8.4-10.2 mg/dL OINC) Low Calcium Lvl 8.0 LAB 40014733(L 136-145 mEq/L OINC) Sodium Normal Lvl 137 LAB 52777587(L 3.5-5.1 mEq/L OINC) Normal Potassium Lvl 3.9 LAB 84959757(L 98-107 mEq/L OINC) High Chloride 110 LAB 68940817(L 24.0-30.0 mEq/L OINC) Low CO2 22.5 Performed By: #### [id number] #### DL Rem[facility]5 [place] [address] EGFR Collected: 12/19/2017 Status: F Source: [place] 5:54 AM [facility] REPOSITORY Order Comment: Order added by Discern Expert. TYPE CODE TESTS RESULT OUT OF RANGE REFERENCE UNITS LAB 27910282(LO mL/min/1.73 INC) m2 Normal eGFR 38 LAB 46910065(LO mL/min/1.73 INC) m2 Normal eGFR AA 46 Performed By: #### [id number] #### DL [employer] [facility] [place] [address] CBC W/ AUTO DIFF Collected: 12/19/2017 Status: F Source: [place] 5:54 AM [facility] REPOSITORY TYPE CODE TESTS RESULT OUT OF RANGE REFERENCE UNITS LAB 56097016(L 3.6-11.0 E3/mcL OINC) Normal WBC 4.1 LAB 25810819(L 3.90-5.40 E6/mcL OINC) Low RBC 3.13 LAB 77008788(L 12.0-16.0 G/DL OINC) Low Hgb 8.8 LAB 84869045(L 36.0-48.0 % OINC) Low Hct 25.5 LAB 59867485(L 11.5-14.5 % OINC) High RDW 18.0 LAB 44179407(L 27.0-31.0 pg OINC) Normal MCH 27.9 LAB 68810618(L 33.0-37.0 G/DL OINC) Normal MCHC 34.3 LAB 78870304(L 78.0-100.0 fL OINC) Normal MCV 81.5 LAB 65767733(L 7.4-11.0 fL OINC) Low MPV 7.0 LAB 03577091(L 130-400 E3/mcL OINC) Low Platelet 82 Performed By: #### [id number] #### DL RemH[facility] [place] [address] MORPH Collected: 12/19/2017 Status: F Source: [place] 5:54 AM [facility] REPOSITORY Order Comment: Order Added by Discern Expert. TYPE CODE TESTS RESULT OUT OF REFERENCE UNITS RANGE LAB 63977920( LOINC) RBC Morph SEE Normal MORPHOLOGY LAB 84186166( LOINC) 1+ Normal Anisocytosis Performed By: #### [id number] #### DL [facility] [address] [place] [address] ZZPLT MORPH Collected: 12/19/2017 Status: F Source: [place] 5:54 AM [facility] REPOSITORY TYPE CODE TESTS RESULT OUT OF RANGE REFERENCE UNITS LAB 02308142(L OINC) Normal Platelet DECREASED Estimate LAB 09143438(L OINC) Normal Platelet Morph NORMAL Performed By: #### [id number] #### DL RemHemo [address] [place] [address] AUTO DIFF Collected: 12/19/2017 Status: F Source: [place] 5:54 AM [facility] REPOSITORY Order Comment: Order Added by Discern Expert. TYPE CODE TESTS RESULT OUT OF RANGE REFERENCE UNITS LAB 08305249(L 37.0-75.0 % OINC) Normal Neutro Auto 68.8 LAB 53326696(L 20.0-55.0 % OINC) Low Lymph Auto 15.9 LAB 99512061(L 0.0-10.0 % OINC) Normal Sutter Auto 9.2 LAB 88452667(L 0.0-11.0 % OINC) Normal Eos Auto 5.2 LAB 27730204(L 0.0-2.0 % OINC) Normal Basophil Auto 0.9 LAB 32758165(L 1.4-6.5 E3/mcL OINC) Normal Neutro 2.8 Absolute LAB 51550590(L 1.2-3.4 E3/mcL OINC) Low Lymph Absolute 0.7 LAB 50450719(L 0.0-0.7 E3/mcL OINC) Normal Sutter Absolute 0.4 LAB 85154757(L 0.0-0.7 E3/mcL OINC) Normal Eos Absolute 0.2 LAB 17775226(L 0.0-0.2 E3/mcL OINC) Normal Basophil 0.0 Absolute Performed By: #### [id number] #### DL Rem[employer]emo [address] [place] [address] GLUCOSE POC Collected: 12/18/2017 Status: F Source: [place] 8:22 PM [facility] REPOSITORY TYPE CODE TESTS RESULT OUT OF REFERENCE UNITS RANGE LAB 88735231(LO 70-99 mg/dL INC) High Glucose POC 253 Performed By: #### [id number] #### DL POC Subsection [address] [place] [address] GLUCOSE POC Collected: 12/18/2017 Status: F Source: [place] 4:42 PM [facility] REPOSITORY TYPE CODE TESTS RESULT OUT OF REFERENCE UNITS RANGE LAB 86690337(LO 70-99 mg/dL INC) High Glucose POC 282 Performed By: #### [id number] #### DL POC Subsection [facility] [place] [address] MRI ANKLE W/O Observed: 12/18/2017 Status: F Source: [place] CONTRAST LEFT 12:10 PM [facility] REPOSITORY Exam Date/Time: 12/18/2017 [...] GLUCOSE POC Collected: 12/18/2017 Status: F Source: [place] 11:31 AM [facility] REPOSITORY TYPE CODE TESTS RESULT OUT OF REFERENCE UNITS RANGE LAB 04795177(LO 70-99 mg/dL INC) High Glucose POC 138 Performed By: #### [id number] #### [place] [address] GLUCOSE POC Collected: 12/18/2017 Status: F Source: [place] 7:42 AM [facility] REPOSITORY TYPE CODE TESTS RESULT OUT OF REFERENCE UNITS RANGE LAB 42672185(LO 70-99 mg/dL INC) High Glucose POC 144 Performed By: #### [id number] #### DL POC Subsection [address] [place] [id number] BMP Collected: 12/18/2017 Status: F Source: [place] 6:05 AM [facility] REPOSITORY TYPE CODE TESTS RESULT OUT OF RANGE REFERENCE UNITS LAB 62825092(L 70-99 mg/dL OINC) High Glucose Lvl 148 LAB 20817251(L 7-18 mg/dL OINC) High BUN 23 LAB 6998420(LO 0.6-1.3 mg/dL INC) High Creatinine 1.5 LAB 81370732(L 5.4-30.0 ratio OINC) Normal BUN/Creat Ratio 15.3 LAB 85440349(L 8.4-10.2 mg/dL OINC) Low Calcium Lvl 8.1 LAB 76099817(L 136-145 mEq/L OINC) Sodium Normal Lvl 138 LAB 59279411(L 3.5-5.1 mEq/L OINC) Normal Potassium Lvl 4.3 LAB 20733229(L 98-107 mEq/L OINC) High Chloride 111 LAB 18860495(L 24.0-30.0 mEq/L OINC) Low CO2 20.9 Performed By: #### [id number] #### DL [employer] [address] [place] [address] EGFR Collected: 12/18/2017 Status: F Source: [place] 6:05 AM [facility] REPOSITORY Order Comment: Order added by Discern Expert. TYPE CODE TESTS RESULT OUT OF RANGE REFERENCE UNITS LAB 00601397(LO mL/min/1.73 INC) m2 Normal eGFR 35 LAB 74588939(LO mL/min/1.73 INC) m2 Normal eGFR AA 43 Performed By: #### [id number] #### DL [employer] [address] [place], [place] [address] CBC W/ AUTO DIFF Collected: 12/18/2017 Status: F Source: [place] 6:05 AM [facility] REPOSITORY TYPE CODE TESTS RESULT OUT OF RANGE REFERENCE UNITS LAB 08582714(L 3.6-11.0 E3/mcL OINC) Normal WBC 4.4 LAB 33770614(L 3.90-5.40 E6/mcL OINC) Low RBC 2.98 LAB 61289180(L 12.0-16.0 G/DL OINC) Low Hgb 8.3 LAB 76294799(L 36.0-48.0 % OINC) Low Hct 24.7 LAB 89397275(L 11.5-14.5 % OINC) High RDW 18.3 LAB 79753371(L 27.0-31.0 pg OINC) Normal MCH 28.0 LAB 63968721(L 33.0-37.0 G/DL OINC) Normal MCHC 33.8 LAB 30469641(L 78.0-100.0 fL OINC) Normal MCV 82.8 LAB 42057600(L 7.4-11.0 fL OINC) Low MPV 7.2 LAB 79145826(L 130-400 E3/mcL OINC) Low Platelet 83 Performed By: #### [id number] #### DL RemH[facility] [place] [address] MORPH Collected: 12/18/2017 Status: F Source: [place] 6:05 AM [facility] REPOSITORY Order Comment: Order Added by Discern Expert. TYPE CODE TESTS RESULT OUT OF REFERENCE UNITS RANGE LAB 57228830( LOINC) RBC Morph SEE Normal MORPHOLOGY LAB 05205263( LOINC) Hypochromasia 1+ Normal LAB 02792821( LOINC) Polychromasia 1+ Normal LAB 26435040( LOINC) Anisocytosis 1+ Normal Performed By: #### [id number] #### DL Rem[facility] [place] [address] ZZPLT MORPH Collected: 12/18/2017 Status: F Source: [place] 6:05 AM [facility] REPOSITORY TYPE CODE TESTS RESULT OUT OF RANGE REFERENCE UNITS LAB 02931188(L OINC) Normal Platelet DECREASED Estimate LAB 26232989(L OINC) Normal Platelet Morph NORMAL Performed By: #### [id number] #### DL RemHemo [address] [place] [address] AUTO DIFF Collected: 12/18/2017 Status: F Source: [place] 6:05 AM [facility] REPOSITORY Order Comment: Order Added by Discern Expert. TYPE CODE TESTS RESULT OUT OF RANGE REFERENCE UNITS LAB 74988120(L 37.0-75.0 % OINC) Normal Neutro Auto 68.3 LAB 68953940(L 20.0-55.0 % OINC) Low Lymph Auto 15.8 LAB 84888199(L 0.0-10.0 % OINC) Normal Sutter Auto 9.7 LAB 53656335(L 0.0-11.0 % OINC) Normal Eos Auto 5.1 LAB 71443714(L 0.0-2.0 % OINC) Normal Basophil Auto 1.1 LAB 97786549(L 1.4-6.5 E3/mcL OINC) Normal Neutro 3.0 Absolute LAB 42167259(L 1.2-3.4 E3/mcL OINC) Low Lymph Absolute 0.7 LAB 27927237(L 0.0-0.7 E3/mcL OINC) Normal Sutter Absolute 0.4 LAB 70495406(L 0.0-0.7 E3/mcL OINC) Normal Eos Absolute 0.2 LAB 70138241(L 0.0-0.2 E3/mcL OINC) Normal Basophil 0.0 Absolute Performed By: #### [id number] #### DL RemHemo [address] [place] [address] GLUCOSE POC Collected: 12/17/2017 Status: F Source: [place] 9:00 PM [facility] REPOSITORY TYPE CODE TESTS RESULT OUT OF REFERENCE UNITS RANGE LAB 28087129(LO 70-99 mg/dL INC) High Glucose POC 157 Performed By: #### [id number] #### DL POC Subsection [address] [place] [address] GLUCOSE POC Collected: 12/17/2017 Status: F Source: [place] 4:09 PM [facility] REPOSITORY TYPE CODE TESTS RESULT OUT OF REFERENCE UNITS RANGE LAB 42760706(LO 70-99 mg/dL INC) High Glucose POC 204 Performed By: #### [id number] #### DL POC Subsection [address] [place] [address] GLUCOSE POC Collected: 12/17/2017 Status: F Source: [place] 11:39 AM [facility] REPOSITORY TYPE CODE TESTS RESULT OUT OF REFERENCE UNITS RANGE LAB 09094369(LO 70-99 mg/dL INC) High Glucose POC 177 Performed By: #### [id number] #### DL POC Subsection [address] [place] [address] GLUCOSE POC Collected: 12/17/2017 Status: F Source: [place] 7:37 AM [facility] REPOSITORY TYPE CODE TESTS RESULT OUT OF REFERENCE UNITS RANGE LAB 07655805(LO 70-99 mg/dL INC) High Glucose POC 122 Performed By: #### [id number] #### DL POC Subsection [address] [place] [address] BMP Collected: 12/17/2017 Status: F Source: [place] 5:30 AM [facility] REPOSITORY TYPE CODE TESTS RESULT OUT OF RANGE REFERENCE UNITS LAB 87963258(L 70-99 mg/dL OINC) High Glucose Lvl 111 LAB 10779910(L 7-18 mg/dL OINC) High BUN 25 LAB 4038934(LO 0.6-1.3 mg/dL INC) High Creatinine 1.5 LAB 82982680(L 5.4-30.0 ratio OINC) Normal BUN/Creat Ratio 16.7 LAB 56369709(L 8.4-10.2 mg/dL OINC) Low Calcium Lvl 7.9 LAB 26452633(L 136-145 mEq/L OINC) Sodium Normal Lvl 138 LAB 25980182(L 3.5-5.1 mEq/L OINC) Normal Potassium Lvl 4.5 LAB 06864600(L 98-107 mEq/L OINC) High Chloride 111 LAB 17965462(L 24.0-30.0 mEq/L OINC) Low CO2 21.4 Performed By: #### [id number] #### DL [employer] [address] [place] [address] EGFR Collected: 12/17/2017 Status: F Source: [place] 5:30 AM [facility] REPOSITORY Order Comment: Order added by Discern Expert. TYPE CODE TESTS RESULT OUT OF RANGE REFERENCE UNITS LAB 16904382(LO mL/min/1.73 INC) m2 Normal eGFR 35 LAB 39595666(LO mL/min/1.73 INC) m2 Normal eGFR AA 43 Performed By: #### [id number] #### DL [employer] [address] [place] [address] CBC W/ AUTO DIFF Collected: 12/17/2017 Status: F Source: [place] 5:30 AM [facility] REPOSITORY TYPE CODE TESTS RESULT OUT OF RANGE REFERENCE UNITS LAB 92601914(L 3.6-11.0 E3/mcL OINC) Normal WBC 5.1 LAB 71733282(L 3.90-5.40 E6/mcL OINC) Low RBC 3.16 LAB 89520207(L 12.0-16.0 G/DL OINC) Low Hgb 8.9 LAB 17038284(L 36.0-48.0 % OINC) Low Hct 26.0 LAB 56201807(L 11.5-14.5 % OINC) High RDW 18.3 LAB 15289641(L 27.0-31.0 pg OINC) Normal MCH 28.3 LAB 01134661(L 33.0-37.0 G/DL OINC) Normal MCHC 34.3 LAB 38957199(L 78.0-100.0 fL OINC) Normal MCV 82.4 LAB 53368619(L 7.4-11.0 fL OINC) Low MPV 7.1 LAB 57748614(L 130-400 E3/mcL OINC) Low Platelet 91 Performed By: #### [id number] #### DL WolfeHemo [facility] [place] [id number] MORPH Collected: 12/17/2017 Status: F Source: [place] 5:30 AM [facility] REPOSITORY Order Comment: Order Added by Discern Expert. TYPE CODE TESTS RESULT OUT OF REFERENCE UNITS RANGE LAB 90993292( LOINC) RBC Morph SEE Normal MORPHOLOGY LAB 49783313( LOINC) Hypochromasia 1+ Normal LAB 31545734( LOINC) Poikilocytosis 1+ Normal LAB 34173780( LOINC) Anisocytosis 2+ Normal Performed By: #### [id number] #### DL WolfeHemo [address] [place], [place] [address] ZZPLT MORPH Collected: 12/17/2017 Status: F Source: [place] 5:30 AM [facility] REPOSITORY TYPE CODE TESTS RESULT OUT OF RANGE REFERENCE UNITS LAB 70562590(L OINC) Normal Platelet DECREASED Estimate LAB 00371230(L OINC) Normal Platelet Morph NORMAL Performed By: #### [id number] #### DL RemHemo [facility] [place] [address] AUTO DIFF Collected: 12/17/2017 Status: F Source: [place] 5:30 AM [facility] REPOSITORY Order Comment: Order Added by Discern Expert. TYPE CODE TESTS RESULT OUT OF RANGE REFERENCE UNITS LAB 34384064(L 37.0-75.0 % OINC) Normal Neutro Auto 69.9 LAB 13950042(L 20.0-55.0 % OINC) Low Lymph Auto 14.5 LAB 07920892(L 0.0-10.0 % OINC) Normal Sutter Auto 8.8 LAB 00737203(L 0.0-11.0 % OINC) Normal Eos Auto 5.8 LAB 45193526(L 0.0-2.0 % OINC) Normal Basophil Auto 1.0 LAB 85093290(L 1.4-6.5 E3/mcL OINC) Normal Neutro 3.6 Absolute LAB 31305835(L 1.2-3.4 E3/mcL OINC) Low Lymph Absolute 0.7 LAB [id number](L 0.0-0.7 E3/mcL OINC) Normal Sutter Absolute 0.5 LAB [id number](L 0.0-0.7 E3/mcL OINC) Normal Eos Absolute 0.3 LAB [id number](L 0.0-0.2 E3/mcL OINC) Normal Basophil 0.1 Absolute Performed By: #### [id number] #### DL [employer] [address] [place] [address] GLUCOSE POC Collected: 12/16/2017 Status: F Source: ALEVISM 8:23 PM [facility] REPOSITORY TYPE CODE TESTS RESULT OUT OF REFERENCE UNITS RANGE LAB [id number](LO 70-99 mg/dL INC) High Glucose POC 234 Performed By: #### [id number] #### DL POC Subsection [address] [place] [id number] GLUCOSE POC Collected: 12/16/2017 Status: F Source: ALEVISM 4:31 PM [facility] REPOSITORY TYPE CODE TESTS RESULT OUT OF REFERENCE UNITS RANGE LAB [id number](LO 70-99 mg/dL INC) High Glucose POC 172 Performed By: #### [id number] #### DL POC Subsection [address] [place], [place] [id number] PATRICIA TEST Collected: 12/16/2017 Status: F Source: ALEVISM 3:20 PM [facility] REPOSITORY TYPE CODE TESTS RESULT OUT OF RANGE REFERENCE UNITS LAB [id number](LO Negative INC) Normal PATRICIA Negative Test Performed By: #### [id number] #### DL Misc Micro SubSection , VANCO TROUGH Collected: 12/16/2017 Status: F Source: ALEVISM 12:43 PM [facility] REPOSITORY TYPE CODE TESTS RESULT OUT OF RANGE REFERENCE UNITS LAB [id number](LO 15.0-20.0 microgram/m INC) L Normal Vanco Tr 18.9 Result Comment: Guidelines taken from the August 2008 [facility] report: It is recommended that therapeutic monitoring of vancomycin in adult patients be done using the TROUGH serum vancomycin concentration. It is the MOST ACCURATE and practical method for monitoring efficacy. DESIRED CONC: TROUGH 15-20 ug/ml CRITICAL >30 UG/ML Performed By: #### [id number] #### DL [employer] [address] [place] [address] GLUCOSE POC Collected: 12/16/2017 Status: F Source: ALEVISM 12:22 PM [facility] REPOSITORY TYPE CODE TESTS RESULT OUT OF REFERENCE UNITS RANGE LAB [id number](LO 70-99 mg/dL INC) High Glucose POC 145 Performed By: #### [id number] #### DL POC Subsection [address] [place] [address] MRI ANKLE W/O Observed: 12/16/2017 Status: F Source: ALEVISM CONTRAST LEFT 11:00 AM [facility] REPOSITORY Exam Date/Time: 12/16/2017 [...] GLUCOSE POC Collected: 12/16/2017 Status: F Source: ALEVISM 7:23 AM [facility] REPOSITORY TYPE CODE TESTS RESULT OUT OF REFERENCE UNITS RANGE LAB [id number](LO 70-99 mg/dL INC) High Glucose POC 160 Performed By: #### [id number] #### DL POC Subsection [address] [place] [address] BMP Collected: 12/16/2017 Status: F Source: ALEVISM 5:30 AM [facility] REPOSITORY TYPE CODE TESTS RESULT OUT OF RANGE REFERENCE UNITS LAB 94307966(L 70-99 mg/dL OINC) High Glucose Lvl 132 LAB 84398690(L 7-18 mg/dL OINC) High BUN 27 LAB 3940473(LO 0.6-1.3 mg/dL INC) High Creatinine 1.7 LAB 50902941(L 5.4-30.0 ratio OINC) Normal BUN/Creat Ratio 15.9 LAB 30686803(L 8.4-10.2 mg/dL OINC) Low Calcium Lvl 7.7 LAB 29871854(L 136-145 mEq/L OINC) Low Sodium Lvl 133 LAB 61919523(L 3.5-5.1 mEq/L OINC) Normal Potassium Lvl 4.0 LAB 69186803(L 98-107 mEq/L OINC) Chloride Normal 107 LAB 67196885(L 24.0-30.0 mEq/L OINC) Low CO2 19.6 Performed By: #### [id number] #### DL [employer] [address] [place] [address] EGFR Collected: 12/16/2017 Status: F Source: ALEVISM 5:30 AM [facility] REPOSITORY Order Comment: Order added by Discern Expert. TYPE CODE TESTS RESULT OUT OF RANGE REFERENCE UNITS LAB 84440728(LO mL/min/1.73 INC) m2 Normal eGFR 30 LAB 62674878(LO mL/min/1.73 INC) m2 Normal eGFR AA 37 Performed By: #### [id number] #### DL [employer] [address] [place] [address] CBC W/ AUTO DIFF Collected: 12/16/2017 Status: F Source: ALEVISM 5:30 AM [facility] REPOSITORY TYPE CODE TESTS RESULT OUT OF RANGE REFERENCE UNITS LAB 28685256(L 3.6-11.0 E3/mcL OINC) Normal WBC 4.2 LAB 51266403(L 3.90-5.40 E6/mcL OINC) Low RBC 2.91 LAB 28047054(L 12.0-16.0 G/DL OINC) Low Hgb 8.2 LAB 40127506(L 36.0-48.0 % OINC) Low Hct 24.1 LAB 61854640(L 11.5-14.5 % OINC) High RDW 18.4 LAB 36791351(L 27.0-31.0 pg OINC) Normal MCH 28.3 LAB 34959083(L 33.0-37.0 G/DL OINC) Normal MCHC 34.2 LAB 41742540(L 78.0-100.0 fL OINC) Normal MCV 82.8 LAB 84055647(L 7.4-11.0 fL OINC) Low MPV 7.3 LAB 62396595(L 130-400 E3/mcL OINC) Low Platelet 78 Performed By: #### [id number] #### DL [employer]fe[employer] [address] [place] [address] MORPH Collected: 12/16/2017 Status: F Source: ALEVISM 5:30 AM [facility] REPOSITORY Order Comment: Order Added by Discern Expert. TYPE CODE TESTS RESULT OUT OF REFERENCE UNITS RANGE LAB 64252646( LOINC) RBC Morph SEE Normal MORPHOLOGY LAB 04354461( LOINC) Hypochromasia 1+ Normal LAB 87938624( LOINC) Poikilocytosis 1+ Normal LAB 82178838( LOINC) Anisocytosis 1+ Normal Performed By: #### [id number] #### DL RemHemo [address] [place] [address] ZZPLT MORPH Collected: 12/16/2017 Status: F Source: ALEVISM 5:30 AM [facility] REPOSITORY TYPE CODE TESTS RESULT OUT OF RANGE REFERENCE UNITS LAB 42895814(L OINC) Normal Platelet DECREASED Estimate LAB 50479204(L OINC) Normal Platelet Morph NORMAL Performed By: #### [id number] #### DL RemHemo [address] [place], [place] [address] AUTO DIFF Collected: 12/16/2017 Status: F Source: ALEVISM 5:30 AM [facility] REPOSITORY Order Comment: Order Added by Discern Expert. TYPE CODE TESTS RESULT OUT OF RANGE REFERENCE UNITS LAB 94687422(L 37.0-75.0 % OINC) Normal Neutro Auto 67.5 LAB 62299670(L 20.0-55.0 % OINC) Low Lymph Auto 14.9 LAB 78856777(L 0.0-10.0 % OINC) High Sutter Auto 10.4 LAB 32248645(L 0.0-11.0 % OINC) Normal Eos Auto 6.1 LAB 57165206(L 0.0-2.0 % OINC) Normal Basophil Auto 1.1 LAB 71021583(L 1.4-6.5 E3/mcL OINC) Normal Neutro 2.8 Absolute LAB 44947496(L 1.2-3.4 E3/mcL OINC) Low Lymph Absolute 0.6 LAB 33139102(L 0.0-0.7 E3/mcL OINC) Normal Sutter Absolute 0.4 LAB 49072175(L 0.0-0.7 E3/mcL OINC) Normal Eos Absolute 0.3 LAB 40223779(L 0.0-0.2 E3/mcL OINC) Normal Basophil 0.0 Absolute Performed By: #### [id number] #### DL RemHemo [address] [place] [address] GLUCOSE POC Collected: 12/15/2017 Status: F Source: ALEVISM 8:38 PM [facility] REPOSITORY TYPE CODE TESTS RESULT OUT OF REFERENCE UNITS RANGE LAB 74712340(LO 70-99 mg/dL INC) High Glucose POC 232 Performed By: #### [id number] #### DL POC Subsection [address] [place] [address] PT Collected: 12/15/2017 Status: F Source: ALEVISM 5:55 PM [facility] REPOSITORY TYPE CODE TESTS RESULT OUT OF RANGE REFERENCE UNITS LAB 84723025(LO 1.0-1.2 INC) High INR 1.5 Result Comment: INR Recommended Therapeuptic Ranges: Prophylaxis/treatment of DVT and PE?2.0-3.0 Prevention of systemic embolism?.2.0-3.0 Mechanical prosthetic values?2.5-3.5 CRITICAL VALUES?.>4.0 LAB 02668248(LOINC) 11.6-14.6 second(s) High PT 17.0 Performed By: #### [id number] #### DL Hematology Automated Subsection [address] [place] [address] GLUCOSE POC Collected: 12/15/2017 Status: F Source: ALEVISM 4:02 PM [facility] REPOSITORY TYPE CODE TESTS RESULT OUT OF REFERENCE UNITS RANGE LAB 95286358(LO 70-99 mg/dL INC) High Glucose POC 311 Performed By: #### [id number] #### DL POC Subsection [address] [place] [address] GLUCOSE POC Collected: 12/15/2017 Status: F Source: ALEVISM 11:12 AM [facility] REPOSITORY TYPE CODE TESTS RESULT OUT OF REFERENCE UNITS RANGE LAB 15508958(LO 70-99 mg/dL INC) High Glucose POC 300 Performed By: #### [id number] #### DL POC Subsection [address] [place] [address] CT ANKLE W/O CONTRAST Observed: 12/15/2017 Status: F Source: ALEVISM [facility] 10:01 AM [facility] REPOSITORY Exam Date/Time: 12/15/2017 [...] GLUCOSE POC Collected: 12/15/2017 Status: F Source: ALEVISM 7:47 AM [facility] REPOSITORY TYPE CODE TESTS RESULT OUT OF REFERENCE UNITS RANGE LAB 75132105(LO 70-99 mg/dL INC) High Glucose POC 173 Performed By: #### [id number] #### DL POC [address] Collected: 12/15/2017 Status: F Source: ALEVISM 5:36 AM [facility] REPOSITORY TYPE CODE TESTS RESULT OUT OF RANGE REFERENCE UNITS LAB 18191495(L 70-99 mg/dL OINC) High Glucose Lvl 175 LAB 21621125(L 7-18 mg/dL OINC) High BUN 30 LAB 6120387(LO 0.6-1.3 mg/dL INC) High Creatinine 1.7 LAB 38451917(L 5.4-30.0 ratio OINC) Normal BUN/Creat Ratio 17.6 LAB 62986814(L 8.4-10.2 mg/dL OINC) Low Calcium Lvl 7.4 LAB 55264998(L 136-145 mEq/L OINC) Low Sodium Lvl 133 LAB 58821409(L 3.5-5.1 mEq/L OINC) Normal Potassium Lvl 4.3 LAB 12868342(L 98-107 mEq/L OINC) Chloride Normal 106 LAB 60431968(L 24.0-30.0 mEq/L OINC) Low CO2 20.6 Performed By: #### [id number] #### DL [employer] [address] [place] [address] EGFR Collected: 12/15/2017 Status: F Source: ALEVISM 5:36 AM [facility] REPOSITORY Order Comment: Order added by Discern Expert. TYPE CODE TESTS RESULT OUT OF RANGE REFERENCE UNITS LAB 75489318(LO mL/min/1.73 INC) m2 Normal eGFR 30 LAB 58317311(LO mL/min/1.73 INC) m2 Normal eGFR AA 37 Performed By: #### [id number] #### DL [employer] [address] [place], [place] [address] CBC W/ AUTO DIFF Collected: 12/15/2017 Status: F Source: ALEVISM 5:36 AM [facility] REPOSITORY TYPE CODE TESTS RESULT OUT OF RANGE REFERENCE UNITS LAB 90415673(L 3.6-11.0 E3/mcL OINC) Normal WBC 5.0 LAB 80206869(L 3.90-5.40 E6/mcL OINC) Low RBC 2.95 LAB 04878803(L 12.0-16.0 G/DL OINC) Low Hgb 8.2 LAB 45485058(L 36.0-48.0 % OINC) Low Hct 24.4 LAB 91812515(L 11.5-14.5 % OINC) High RDW 18.6 LAB 76830087(L 27.0-31.0 pg OINC) Normal MCH 27.9 LAB 00774433(L 33.0-37.0 G/DL OINC) Normal MCHC 33.8 LAB 61646298(L 78.0-100.0 fL OINC) Normal MCV 82.5 LAB 20076845(L 7.4-11.0 fL OINC) Low MPV 7.2 LAB 69692251(L 130-400 E3/mcL OINC) Low Platelet 75 Performed By: #### [id number] #### DL RemHemo [address] [place] [address] MORPH Collected: 12/15/2017 Status: F Source: ALEVISM 5:36 AM [facility] REPOSITORY Order Comment: Order Added by Discern Expert. TYPE CODE TESTS RESULT OUT OF REFERENCE UNITS RANGE LAB 28832802( LOINC) RBC Morph SEE Normal MORPHOLOGY LAB 28670390( LOINC) 1+ Normal Anisocytosis LAB 97394933( LOINC) Ovalocytes 1+ Normal Performed By: #### [id number] #### DL RemHemo [address] [place] [address] ZZPLT MORPH Collected: 12/15/2017 Status: F Source: ALEVISM 5:36 AM [facility] REPOSITORY TYPE CODE TESTS RESULT OUT OF RANGE REFERENCE UNITS LAB 61291067(L OINC) Normal Platelet DECREASED Estimate LAB 12827783(L OINC) Normal Platelet Morph NORMAL Performed By: #### [id number] #### DL RemHemo [address] [place] [address] AUTO DIFF Collected: 12/15/2017 Status: F Source: ALEVISM 5:36 AM [facility] REPOSITORY Order Comment: Order Added by Discern Expert. TYPE CODE TESTS RESULT OUT OF RANGE REFERENCE UNITS LAB 43960821(L 37.0-75.0 % OINC) Normal Neutro Auto 70.7 LAB 27758647(L 20.0-55.0 % OINC) Low Lymph Auto 15.0 LAB 46222633(L 0.0-10.0 % OINC) Normal Sutter Auto 9.8 LAB 88722088(L 0.0-11.0 % OINC) Normal Eos Auto 3.7 LAB 46694400(L 0.0-2.0 % OINC) Normal Basophil Auto 0.8 LAB 70994701(L 1.4-6.5 E3/mcL OINC) Normal Neutro 3.6 Absolute LAB 01766218(L 1.2-3.4 E3/mcL OINC) Low Lymph Absolute 0.8 LAB 92101871(L 0.0-0.7 E3/mcL OINC) Normal Sutter Absolute 0.5 LAB 31205905(L 0.0-0.7 E3/mcL OINC) Normal Eos Absolute 0.2 LAB 92057513(L 0.0-0.2 E3/mcL OINC) Normal Basophil 0.0 Absolute Performed By: #### [id number] #### DL RemHemo [address] [place] [address] GLUCOSE POC Collected: 12/14/2017 Status: F Source: ALEVISM 8:41 PM [facility] REPOSITORY TYPE CODE TESTS RESULT OUT OF REFERENCE UNITS RANGE LAB 21184280(LO 70-99 mg/dL INC) High Glucose POC 300 Performed By: #### [id number] #### DL POC Subsection [address] [place] [address] IFOB OCCULT BLOOD Collected: 12/14/2017 Status: F Source: ALEVISM 6:07 PM [facility] REPOSITORY TYPE CODE TESTS RESULT OUT OF RANGE REFERENCE UNITS LAB 757788826( LOINC) Abnormal Occult Positive Blood iFOB LAB CD:1742125 601(LOINC) Normal Occult Positive Bld iFOB Int Ctl Performed By: #### [id number] #### DL Misc Micro SubSection , GLUCOSE POC Collected: 12/14/2017 Status: F Source: ALEVISM 4:44 PM [facility] REPOSITORY TYPE CODE TESTS RESULT OUT OF REFERENCE UNITS RANGE LAB 34252301(LO 70-99 mg/dL INC) High Glucose POC 292 Performed By: #### [id number] #### DL POC Subsection [address] [place] [address] HCT & HGB Collected: 12/14/2017 Status: F Source: ALEVISM 3:45 PM [facility] REPOSITORY TYPE CODE TESTS RESULT OUT OF RANGE REFERENCE UNITS LAB 98587441(LO 12.0-16.0 G/DL INC) Low Hgb 8.7 LAB 43797779(LO 36.0-48.0 % INC) Low Hct 25.5 Performed By: #### [id number] #### DL RemHemo [address] [address] GLUCOSE POC Collected: 12/14/2017 Status: F Source: ALEVISM 11:01 AM [facility] REPOSITORY TYPE CODE TESTS RESULT OUT OF REFERENCE UNITS RANGE LAB 54618948(LO 70-99 mg/dL INC) High Glucose POC 328 Performed By: #### [id number] #### DL POC Subsection [facility] [place] [address] GLUCOSE POC Collected: 12/14/2017 Status: F Source: ALEVISM 7:22 AM [facility] REPOSITORY TYPE CODE TESTS RESULT OUT OF REFERENCE UNITS RANGE LAB 86433103(LO 70-99 mg/dL INC) High Glucose POC 164 Performed By: #### [id number] #### DL POC Subsection [facility] [place] [address] BMP Collected: 12/14/2017 Status: F Source: ALEVISM 5:56 AM [facility] REPOSITORY TYPE CODE TESTS RESULT OUT OF RANGE REFERENCE UNITS LAB 61325278(L 70-99 mg/dL OINC) High Glucose Lvl 149 LAB 38544184(L 7-18 mg/dL OINC) High BUN 32 LAB 0845587(LO 0.6-1.3 mg/dL INC) High Creatinine 1.6 LAB 92608332(L 5.4-30.0 ratio OINC) Normal BUN/Creat Ratio 20.0 LAB 11908236(L 8.4-10.2 mg/dL OINC) Low Calcium Lvl 7.0 LAB 29165098(L 136-145 mEq/L OINC) Low Sodium Lvl 129 LAB 38302444(L 3.5-5.1 mEq/L OINC) Normal Potassium Lvl 3.9 LAB 81126129(L 98-107 mEq/L OINC) Chloride Normal 105 LAB 40774102(L 24.0-30.0 mEq/L OINC) Low CO2 18.4 Performed By: #### [id number] #### DL Rem[employer] [facility] [place] [address] EGFR Collected: 12/14/2017 Status: F Source: ALEVISM 5:56 AM [facility] REPOSITORY Order Comment: Order added by Discern Expert. TYPE CODE TESTS RESULT OUT OF RANGE REFERENCE UNITS LAB 09856835(LO mL/min/1.73 INC) m2 Normal eGFR 33 LAB 59393217(LO mL/min/1.73 INC) m2 Normal eGFR AA 39 Performed By: #### [id number] #### DL [employer] [address] [place] [address] CBC W/ AUTO DIFF Collected: 12/14/2017 Status: F Source: ALEVISM 5:56 AM [facility] REPOSITORY TYPE CODE TESTS RESULT OUT OF RANGE REFERENCE UNITS LAB 39380516(L 3.6-11.0 E3/mcL OINC) Normal WBC 4.4 LAB 87875294(L 3.90-5.40 E6/mcL OINC) Low RBC 2.86 LAB 62183324(L 12.0-16.0 G/DL OINC) Low Hgb 8.1 LAB 26288632(L 36.0-48.0 % OINC) Low Hct 23.8 LAB 89736522(L 11.5-14.5 % OINC) High RDW 18.4 LAB 56282807(L 27.0-31.0 pg OINC) Normal MCH 28.2 LAB 88317520(L 33.0-37.0 G/DL OINC) Normal MCHC 33.9 LAB 77679067(L 78.0-100.0 fL OINC) Normal MCV 83.3 LAB 32489489(L 7.4-11.0 fL OINC) Normal MPV 7.8 LAB 45044267(L 130-400 E3/mcL OINC) Low Platelet 73 Performed By: #### [id number] #### DL WolfeHemo [address] [place] [address] MORPH Collected: 12/14/2017 Status: F Source: ALEVISM 5:56 AM [facility] REPOSITORY Order Comment: Order Added by Discern Expert. TYPE CODE TESTS RESULT OUT OF REFERENCE UNITS RANGE LAB 80241961( LOINC) RBC Morph SEE Normal MORPHOLOGY LAB 15584699( LOINC) Hypochromasia 1+ Normal LAB 25281425( LOINC) Anisocytosis 1+ Normal Performed By: #### [id number] #### DL RemHemo [address] [place] [address] ZZPLT MORPH Collected: 12/14/2017 Status: F Source: ALEVISM 5:56 AM [facility] REPOSITORY TYPE CODE TESTS RESULT OUT OF RANGE REFERENCE UNITS LAB 89268847(L OINC) Normal Platelet DECREASED Estimate LAB 83465492(L OINC) Normal Platelet Morph NORMAL Performed By: #### [id number] #### DL RemHemo [facility] [place] [address] AUTO DIFF Collected: 12/14/2017 Status: F Source: ALEVISM 5:56 AM [facility] REPOSITORY Order Comment: Order Added by Discern Expert. TYPE CODE TESTS RESULT OUT OF RANGE REFERENCE UNITS LAB 67442831(L 37.0-75.0 % OINC) Normal Neutro Auto 64.6 LAB 30391170(L 20.0-55.0 % OINC) Low Lymph Auto 16.4 LAB 77025918(L 0.0-10.0 % OINC) High Sutter Auto 13.3 LAB 89091449(L 0.0-11.0 % OINC) Normal Eos Auto 4.6 LAB 95116190(L 0.0-2.0 % OINC) Normal Basophil Auto 1.1 LAB 29547159(L 1.4-6.5 E3/mcL OINC) Normal Neutro 2.8 Absolute LAB 93414478(L 1.2-3.4 E3/mcL OINC) Low Lymph Absolute 0.7 LAB 64125993(L 0.0-0.7 E3/mcL OINC) Normal Sutter Absolute 0.6 LAB 08004153(L 0.0-0.7 E3/mcL OINC) Normal Eos Absolute 0.2 LAB 75245669(L 0.0-0.2 E3/mcL OINC) Normal Basophil 0.0 Absolute Performed By: #### [id number] #### DL RemHemo [address] [place], [place] [address] GLUCOSE POC Collected: 12/13/2017 Status: F Source: ALEVISM 8:18 PM [facility] REPOSITORY TYPE CODE TESTS RESULT OUT OF REFERENCE UNITS RANGE LAB 79969358(LO 70-99 mg/dL INC) High Glucose POC 277 Performed By: #### [id number] #### DL POC Subsection [facility] [place] [address] GLUCOSE POC Collected: 12/13/2017 Status: F Source: ALEVISM 4:51 PM [facility] REPOSITORY TYPE CODE TESTS RESULT OUT OF REFERENCE UNITS RANGE LAB 86774399(LO 70-99 mg/dL INC) High Glucose POC 247 Performed By: #### [id number] #### DL POC Subsection [address] [place] [address] GLUCOSE POC Collected: 12/13/2017 Status: F Source: ALEVISM 11:37 AM [facility] REPOSITORY TYPE CODE TESTS RESULT OUT OF REFERENCE UNITS RANGE LAB 77319830(LO 70-99 mg/dL INC) High Glucose POC 300 Performed By: #### [id number] #### DL POC Subsection [address] [place] [address] ABO/RH ECHO Collected: 12/13/2017 Status: F Source: ALEVISM 9:43 AM [facility] REPOSITORY TYPE CODE TESTS RESULT OUT OF RANGE REFERENCE UNITS LAB 35972962(LO INC) ABO/Rh E O POS Interp... Performed By: #### [id number] #### DL Blood Bank Subsection [address] [place] [address] ANTIBODY SCREEN Collected: 12/13/2017 Status: F Source: ALEVISM CAP... 9:43 AM [facility] REPOSITORY TYPE CODE TESTS RESULT OUT OF RANGE REFERENCE UNITS LAB 99774580(L OINC) Normal Screen Negative Interp... Performed By: #### [id number] #### DL Blood Bank Subsection [address] [place] [address] RCO Collected: 12/13/2017 Status: F Source: ALEVISM 9:06 AM [facility] REPOSITORY TYPE CODE TESTS RESULT OUT OF RANGE REFERENCE UNITS LAB 00651087(L OINC) Normal Product Type None Required Performed By: #### [id number] #### DL Blood Bank Subsection [address] [place] [address] GLUCOSE POC Collected: 12/13/2017 Status: F Source: ALEVISM 7:24 AM [facility] REPOSITORY TYPE CODE TESTS RESULT OUT OF REFERENCE UNITS RANGE LAB 55147638(LO 70-99 mg/dL INC) High Glucose POC 206 Performed By: #### [id number] #### DL POC Subsection [address] [place] [address] BMP Collected: 12/13/2017 Status: F Source: ALEVISM 5:17 AM [facility] REPOSITORY TYPE CODE TESTS RESULT OUT OF RANGE REFERENCE UNITS LAB 98951942(L 70-99 mg/dL OINC) High Glucose Lvl 179 LAB 37941231(L 7-18 mg/dL OINC) High BUN 33 LAB 0771202(LO 0.6-1.3 mg/dL INC) High Creatinine 1.5 LAB 26286928(L 5.4-30.0 ratio OINC) Normal BUN/Creat Ratio 22.0 LAB 57806867(L 8.4-10.2 mg/dL OINC) Low Calcium Lvl 7.2 LAB 81069277(L 136-145 mEq/L OINC) Low Sodium Lvl 135 LAB 25386475(L 3.5-5.1 mEq/L OINC) Normal Potassium Lvl 4.2 LAB 33299557(L 98-107 mEq/L OINC) High Chloride 110 LAB 16341294(L 24.0-30.0 mEq/L OINC) Low CO2 19.5 Performed By: #### [id number] #### DL [employer] [facility] [place] [address] EGFR Collected: 12/13/2017 Status: F Source: ALEVISM 5:17 AM [facility] REPOSITORY Order Comment: Order added by Discern Expert. TYPE CODE TESTS RESULT OUT OF RANGE REFERENCE UNITS LAB 90857134(LO mL/min/1.73 INC) m2 Normal eGFR 35 LAB 35152155(LO mL/min/1.73 INC) m2 Normal eGFR AA 43 Performed By: #### [id number] #### DL [employer] [facility] [place] [address] CBC W/ AUTO DIFF Collected: 12/13/2017 Status: F Source: ALEVISM 5:17 AM [facility] REPOSITORY TYPE CODE TESTS RESULT OUT OF RANGE REFERENCE UNITS LAB 81661952(L 3.6-11.0 E3/mcL OINC) Normal WBC 3.7 LAB 61568984(L 3.90-5.40 E6/mcL OINC) Low RBC 2.55 LAB 95708473(L 12.0-16.0 G/DL OINC) Low Hgb 7.3 LAB 77603600(L 36.0-48.0 % OINC) Low Hct 21.6 LAB 16700224(L 11.5-14.5 % OINC) High RDW 18.5 LAB 60847604(L 27.0-31.0 pg OINC) Normal MCH 28.5 LAB 69077380(L 33.0-37.0 G/DL OINC) Normal MCHC 33.8 LAB 61677222(L 78.0-100.0 fL OINC) Normal MCV 84.5 LAB 71666065(L 7.4-11.0 fL OINC) Normal MPV 7.5 LAB 03621731(L 130-400 E3/mcL OINC) Low Platelet 58 Performed By: #### [id number] #### DL Rem[employer] [address] [place] [address] MORPH Collected: 12/13/2017 Status: F Source: ALEVISM 5:17 AM [facility] REPOSITORY Order Comment: Order Added by Discern Expert. TYPE CODE TESTS RESULT OUT OF REFERENCE UNITS RANGE LAB 75239901( LOINC) RBC Morph SEE Normal MORPHOLOGY LAB 01619268( LOINC) 1+ Normal Anisocytosis Performed By: #### [id number] #### DL RemHemo [facility] [place] [address] ZZPLT MORPH Collected: 12/13/2017 Status: F Source: ALEVISM 5:17 AM [facility] REPOSITORY TYPE CODE TESTS RESULT OUT OF RANGE REFERENCE UNITS LAB 08205926(L OINC) Normal Platelet DECREASED Estimate LAB 09107600(L OINC) Normal Platelet Morph NORMAL Performed By: #### [id number] #### DL Rem[employer] [facility] [place] [address] AUTO DIFF Collected: 12/13/2017 Status: F Source: ALEVISM 5:17 AM [facility] REPOSITORY Order Comment: Order Added by Discern Expert. TYPE CODE TESTS RESULT OUT OF RANGE REFERENCE UNITS LAB 78285670(L 37.0-75.0 % OINC) Normal Neutro Auto 67.3 LAB 79186885(L 20.0-55.0 % OINC) Low Lymph Auto 15.3 LAB 89171521(L 0.0-10.0 % OINC) High Sutter Auto 13.2 LAB 19530397(L 0.0-11.0 % OINC) Normal Eos Auto 3.7 LAB 11669708(L 0.0-2.0 % OINC) Normal Basophil Auto 0.5 LAB 64287318(L 1.4-6.5 E3/mcL OINC) Normal Neutro 2.5 Absolute LAB 03196666(L 1.2-3.4 E3/mcL OINC) Low Lymph Absolute 0.6 LAB 07188550(L 0.0-0.7 E3/mcL OINC) Normal Sutter Absolute 0.5 LAB 87217402(L 0.0-0.7 E3/mcL OINC) Normal Eos Absolute 0.1 LAB 73282680(L 0.0-0.2 E3/mcL OINC) Normal Basophil 0.0 Absolute Performed By: #### [id number] #### DL Rem[employer]emo [address] [place] [address] GLUCOSE POC Collected: 12/12/2017 Status: F Source: ALEVISM 8:54 PM [facility] REPOSITORY TYPE CODE TESTS RESULT OUT OF REFERENCE UNITS RANGE LAB 22872213(LO 70-99 mg/dL INC) High Glucose POC 217 Performed By: #### [id number] #### DL POC Subsection [address] [place] [address] GLUCOSE POC Collected: 12/12/2017 Status: F Source: ALEVISM 4:40 PM [facility] REPOSITORY TYPE CODE TESTS RESULT OUT OF REFERENCE UNITS RANGE LAB 66725317(LO 70-99 mg/dL INC) High Glucose POC 232 Performed By: #### [id number] #### DL POC Subsection [address] [place] [address] HCT & HGB Collected: 12/12/2017 Status: F Source: ALEVISM 12:47 PM [facility] REPOSITORY TYPE CODE TESTS RESULT OUT OF RANGE REFERENCE UNITS LAB 77888371(LO 12.0-16.0 G/DL INC) Low Hgb 8.2 LAB 16358273(LO 36.0-48.0 % INC) Low Hct 24.4 Performed By: #### [id number] #### DL Rem[employer] [address] [place] [address] GLUCOSE POC Collected: 12/12/2017 Status: F Source: ALEVISM 11:39 AM [facility] REPOSITORY TYPE CODE TESTS RESULT OUT OF REFERENCE UNITS RANGE LAB 64092376(LO 70-99 mg/dL INC) High Glucose POC 311 Performed By: #### [id number] #### DL POC Subsection [address] [place] [address] GLUCOSE POC Collected: 12/12/2017 Status: F Source: ALEVISM 7:13 AM [facility] REPOSITORY TYPE CODE TESTS RESULT OUT OF REFERENCE UNITS RANGE LAB [id number](LO 70-99 mg/dL INC) High Glucose POC 190 Performed By: #### [id number] #### DL POC Subsection [address] [place] [id number] BMP Collected: 12/12/2017 Status: F Source: ALEVISM 6:16 AM [facility] REPOSITORY TYPE CODE TESTS RESULT OUT OF RANGE REFERENCE UNITS LAB [id number](L 70-99 mg/dL OINC) High Glucose Lvl 162 LAB [id number](L 7-18 mg/dL OINC) High BUN 33 LAB 3361571(LO 0.6-1.3 mg/dL INC) High Creatinine 1.6 LAB [id number](L 5.4-30.0 ratio OINC) Normal BUN/Creat Ratio 20.6 LAB [id number](L 8.4-10.2 mg/dL OINC) Low Calcium Lvl 7.3 LAB 10165856(L 136-145 mEq/L OINC) Sodium Normal Lvl 142 LAB 58017588(L 3.5-5.1 mEq/L OINC) Normal Potassium Lvl 4.1 LAB 48942352(L 98-107 mEq/L OINC) High Chloride 115 LAB 61103944(L 24.0-30.0 mEq/L OINC) Low CO2 21.7 Performed By: #### [id number] #### DL [facility] [address] [place], [place] [id number] EGFR Collected: 12/12/2017 Status: F Source: ALEVISM 6:16 AM [facility] REPOSITORY Order Comment: Order added by Discern Expert. TYPE CODE TESTS RESULT OUT OF RANGE REFERENCE UNITS LAB [id number](LO mL/min/1.73 INC) m2 Normal eGFR 33 LAB 99959033(LO mL/min/1.73 INC) m2 Normal eGFR AA 39 Performed By: #### [id number] #### DL [facility] [address] [place], [place] [id number] CBC W/ AUTO DIFF Collected: 12/12/2017 Status: F Source: ALEVISM 6:16 AM [facility] REPOSITORY TYPE CODE TESTS RESULT OUT OF RANGE REFERENCE UNITS LAB [id number](L 3.6-11.0 E3/mcL OINC) Normal WBC 4.5 LAB 31909007(L 3.90-5.40 E6/mcL OINC) Low RBC 2.65 LAB 35199863(L 12.0-16.0 G/DL OINC) Low Hgb 7.7 LAB 36005607(L 36.0-48.0 % OINC) Low Hct 22.6 LAB 29125729(L 11.5-14.5 % OINC) High RDW 18.6 LAB 77574588(L 27.0-31.0 pg OINC) Normal MCH 29.0 LAB 90008094(L 33.0-37.0 G/DL OINC) Normal MCHC 34.0 LAB 57476957(L 78.0-100.0 fL OINC) Normal MCV 85.1 LAB 13104739(L 7.4-11.0 fL OINC) Normal MPV 7.7 LAB 66174280(L 130-400 E3/mcL OINC) Low Platelet 66 Performed By: #### [id number] #### DL [facility] [address] [place] [address] MORPH Collected: 12/12/2017 Status: F Source: ALEVISM 6:16 [facility] REPOSITORY Order Comment: Order Added by Discern Expert. TYPE CODE TESTS RESULT OUT OF RANGE REFERENCE UNITS LAB [id number](LO INC) Normal RBC Morph NORMAL Performed By: #### [id number] #### DL RemHemo [facility] [place] [address] ZZPLT MORPH Collected: 12/12/2017 Status: F Source: ALEVISM 6:16 AM [facility] REPOSITORY TYPE CODE TESTS RESULT OUT OF RANGE REFERENCE UNITS LAB [id number](L OINC) Normal Platelet DECREASED Estimate LAB 95583841(L OINC) Normal Platelet Morph NORMAL Performed By: #### [id number] #### DL RemHemo [address] [place] [address] AUTO DIFF Collected: 12/12/2017 Status: F Source: ALEVISM 6:16 AM [facility] REPOSITORY Order Comment: Order Added by Discern Expert. TYPE CODE TESTS RESULT OUT OF RANGE REFERENCE UNITS LAB [id number](L 37.0-75.0 % OINC) Normal Neutro Auto 71.1 LAB 09742811(L 20.0-55.0 % OINC) Low Lymph Auto 13.7 LAB 68405871(L 0.0-10.0 % OINC) High Sutter Auto 11.3 LAB 25748454(L 0.0-11.0 % OINC) Normal Eos Auto 3.3 LAB 36937287(L 0.0-2.0 % OINC) Normal Basophil Auto 0.6 LAB 68544318(L 1.4-6.5 E3/mcL OINC) Normal Neutro 3.2 Absolute LAB 39827573(L 1.2-3.4 E3/mcL OINC) Low Lymph Absolute 0.6 LAB 47403043(L 0.0-0.7 E3/mcL OINC) Normal Sutter Absolute 0.5 LAB 64693929(L 0.0-0.7 E3/mcL OINC) Normal Eos Absolute 0.1 LAB 72701743(L 0.0-0.2 E3/mcL OINC) Normal Basophil 0.0 Absolute Performed By: #### [id number] #### DL RemHemo [address] [place] [address] GLUCOSE POC Collected: 12/11/2017 Status: F Source: ALEVISM 9:23 PM [facility] REPOSITORY TYPE CODE TESTS RESULT OUT OF REFERENCE UNITS RANGE LAB 73423267(LO 70-99 mg/dL INC) High Glucose POC 248 Performed By: #### [id number] #### DL POC Subsection [address] [place] [address] GLUCOSE POC Collected: 12/11/2017 Status: F Source: ALEVISM 4:26 PM [facility] REPOSITORY TYPE CODE TESTS RESULT OUT OF REFERENCE UNITS RANGE LAB 61342152(LO 70-99 mg/dL INC) High Glucose POC 194 Performed By: #### [id number] #### DL POC Subsection [address] [place] [address] GLUCOSE POC Collected: 12/11/2017 Status: F Source: ALEVISM 11:15 AM [facility] REPOSITORY TYPE CODE TESTS RESULT OUT OF REFERENCE UNITS RANGE LAB 57521963(LO 70-99 mg/dL INC) High Glucose POC 362 Performed By: #### [id number] #### DL POC Subsection [facility] [place] [address] GLUCOSE POC Collected: 12/11/2017 Status: F Source: ALEVISM 7:12 AM [facility] REPOSITORY TYPE CODE TESTS RESULT OUT OF REFERENCE UNITS RANGE LAB 74514195(LO 70-99 mg/dL INC) High Glucose POC 273 Performed By: #### [id number] #### DL POC Subsection [address] [place] [address] BMP Collected: 12/11/2017 Status: F Source: ALEVISM 5:45 AM [facility] REPOSITORY TYPE CODE TESTS RESULT OUT OF RANGE REFERENCE UNITS LAB 67624457(L 70-99 mg/dL OINC) High Glucose Lvl 283 LAB 88288133(L 7-18 mg/dL OINC) High BUN 35 LAB 5713597(LO 0.6-1.3 mg/dL INC) High Creatinine 1.6 LAB 31155352(L 5.4-30.0 ratio OINC) Normal BUN/Creat Ratio 21.9 LAB 32577103(L 8.4-10.2 mg/dL OINC) Low Calcium Lvl 7.6 LAB 59828095(L 136-145 mEq/L OINC) Low Sodium Lvl 132 LAB 60732544(L 3.5-5.1 mEq/L OINC) Normal Potassium Lvl 4.2 LAB 57620219(L 98-107 mEq/L OINC) High Chloride 108 LAB 87511140(L 24.0-30.0 mEq/L OINC) Low CO2 16.8 Performed By: #### [id number] #### DL RemChem [address] [place], [place] [address] EGFR Collected: 12/11/2017 Status: F Source: ALEVISM 5:45 AM [facility] REPOSITORY Order Comment: Order added by Discern Expert. TYPE CODE TESTS RESULT OUT OF RANGE REFERENCE UNITS LAB 61979484(LO mL/min/1.73 INC) m2 Normal eGFR 33 LAB 58441168(LO mL/min/1.73 INC) m2 Normal eGFR AA 39 Performed By: #### [id number] #### DL RemChem [address] [place], [place] [address] GLUCOSE POC Collected: 12/11/2017 Status: F Source: ALEVISM 1:40 AM [facility] REPOSITORY TYPE CODE TESTS RESULT OUT OF REFERENCE UNITS RANGE LAB 37681954(LO 70-99 mg/dL INC) High Glucose POC 207 Performed By: #### [id number] #### DL POC Subsection [facility] [place] [address] UA COMPLETE Collected: 12/10/2017 Status: F Source: ALEVISM 9:18 PM [facility] REPOSITORY Order Comment: Straight Cath as needed TYPE CODE TESTS RESULT OUT OF RANGE REFERENCE UNITS LAB 43285941( Yellow LOINC) Normal UA Color Yellow LAB 18343254( Clear LOINC) UA Clarity Abnormal SltCloudy LAB 98837240( Negative LOINC) UA Glucose 1+ Abnormal LAB 33785029( Negative LOINC) Normal UA Bili Negative LAB 62408100( Negative LOINC) Normal UA Ketones Negative LAB 88256173( 1.003-1.030 LOINC) Normal UA Spec Grav 1.013 LAB 17616059( 4.6-8.0 LOINC) Normal UA pH 5.0 LAB 90360847( Negative LOINC) UA Protein 1+ Abnormal LAB 55212518( mg/dL LOINC) UA Abnormal Urobilinogen 2.0 LAB 82725986( Negative LOINC) Normal UA Nitrite Negative LAB 81520014( Negative LOINC) UA Blood 2+ Abnormal LAB 69338300( Negative LOINC) Normal UA Leuk Est Negative LAB 62131970( 0-3 /HPF LOINC) UA RBC Abnormal 5-10 LAB 06041425( 0-5 /HPF LOINC) Normal UA WBC 0-5 LAB 80712100( 0-2 /LPF LOINC) Normal UA Hyal Cast 0-2 LAB 10123685( 0-5 /HPF LOINC) Normal UA Squam Epithelial 0-5 LAB 17319144( Trace /LPF LOINC) UA Mucous Abnormal Trace Performed By: #### [id number] #### DL Urinalysis Automated Subsection [facility] [place] [address] PT Collected: 12/10/2017 Status: F Source: ALEVISM 8:39 PM [facility] REPOSITORY TYPE CODE TESTS RESULT OUT OF RANGE REFERENCE UNITS LAB 74930275(LO 1.0-1.2 INC) High INR 1.4 Result Comment: INR Recommended Therapeuptic Ranges: Prophylaxis/treatment of DVT and PE?2.0-3.0 Prevention of systemic embolism?.2.0-3.0 Mechanical prosthetic values?2.5-3.5 CRITICAL VALUES?.>4.0 LAB 24871927(LOINC) 11.6-14.6 second(s) High PT 15.9 Performed By: #### [id number] #### DL Hematology Automated Subsection [address] [place] [address] PTT Collected: 12/10/2017 Status: F Source: ALEVISM 8:39 [facility] REPOSITORY TYPE CODE TESTS RESULT OUT OF RANGE REFERENCE UNITS LAB 96821962(LO 23.2-36.4 second(s) INC) Normal PTT 31.4 Performed By: #### [id number] #### DL Hematology Automated Subsection [address] [place] [address] PTT CONTROL RATIO Collected: 12/10/2017 Status: F Source: ALEVISM 8:39 [facility] REPOSITORY Order Comment: Order added by Discern Expert. TYPE CODE TESTS RESULT OUT OF RANGE REFERENCE UNITS LAB 23712375(LO 0.8-1.2 ratio INC) Normal PTT Ratio 1.1 Performed By: #### [id number] #### DL Hematology Automated Subsection [address] [place] [address] BMP Collected: 12/10/2017 Status: F Source: ALEVISM 8:39 [facility] REPOSITORY TYPE CODE TESTS RESULT OUT OF RANGE REFERENCE UNITS LAB 04132311(L 70-99 mg/dL OINC) High Glucose Lvl 234 LAB 10742250(L 8.4-10.2 mg/dL OINC) Low Calcium Lvl 8.1 LAB 60373738(L 136-145 mEq/L OINC) Low Sodium Lvl 128 LAB 16205483(L 3.5-5.1 mEq/L OINC) Normal Potassium Lvl 3.9 LAB 41403906(L 98-107 mEq/L OINC) Chloride Normal 102 LAB 29305299(L 24.0-30.0 mEq/L OINC) Low CO2 17.1 LAB 61848450(L 7-18 mg/dL OINC) High BUN 36 LAB 2124954(LO 0.6-1.3 mg/dL INC) High Creatinine 1.6 LAB 93211918(L 5.4-30.0 ratio OINC) Normal BUN/Creat Ratio 22.5 Performed By: #### [id number] #### LD Rem5th Finger [facility] [place] [address] LACTIC ACID Collected: 12/10/2017 Status: F Source: ALEVISM 8:39 PM [facility] REPOSITORY TYPE CODE TESTS RESULT OUT OF RANGE REFERENCE UNITS LAB 20334502(LO 0.5-2.2 mmol/L INC) Normal Lactic Acid 1.2 Lvl Performed By: #### [id number] #### DL Rem5th Finger [facility] [place] [address] HEP FUNC PANEL Collected: 12/10/2017 Status: F Source: ALEVISM 8:39 [facility] REPOSITORY TYPE CODE TESTS RESULT OUT OF RANGE REFERENCE UNITS LAB 95231423(L 10-40 Int._Unit/L OINC) Normal ALT 17 LAB 68927762(L 10-42 Int._Unit/L OINC) Normal AST 24 LAB 63409395(L 3.2-5.0 G/DL OINC) Normal Albumin Lvl 3.2 LAB 58119905(L 2.0-4.0 G/DL OINC) Normal Globulin 3.8 LAB 68756650(L 1.1-1.9 ratio OINC) Low A/G Ratio 0.8 LAB 55462156(L 42-121 Int._Unit/L OINC) Normal Alk Phos 89 LAB 30462461(L .00-.20 mg/dL OINC) High Bili Direct .73 LAB 59335669(L OINC) Normal Bili Indirect 1.9 Result Comment: No established ranges available for the Indirect Biliruben. LAB 99944315(LOINC) 0.2-1.0 mg/dL High Bili Total 2.6 LAB 72053569(LOINC) 6.4-8.3 G/DL Normal Total Protein 7.0 Performed By: #### [id number] #### DL [facility] [address] [place] [address] EGFR Collected: 12/10/2017 Status: F Source: ALEVISM 8:39 [facility] REPOSITORY Order Comment: Order added by Discern Expert. TYPE CODE TESTS RESULT OUT OF RANGE REFERENCE UNITS LAB 62968651(LO mL/min/1.73 INC) m2 Normal eGFR 33 LAB 38715987(LO mL/min/1.73 INC) m2 Normal eGFR AA 39 Performed By: #### [id number] #### DL RemChem [facility] [place] [address] LIPASE LEVEL Collected: 12/10/2017 Status: F Source: ALEVISM 8:39 [facility] REPOSITORY TYPE CODE TESTS RESULT OUT OF RANGE REFERENCE UNITS LAB 46776317(LO 8-57 U/L INC) Normal Lipase Lvl 26 Performed By: #### [id number] #### DL [place] [address] [place] [address] CBC W/ AUTO DIFF Collected: 12/10/2017 Status: F Source: ALEVISM 8:39 [facility] REPOSITORY TYPE CODE TESTS RESULT OUT OF RANGE REFERENCE UNITS LAB 95852027(L 3.6-11.0 E3/mcL OINC) Normal WBC 5.3 LAB 29667309(L 3.90-5.40 E6/mcL OINC) Low RBC 2.98 LAB 23685436(L 12.0-16.0 G/DL OINC) Low Hgb 8.6 LAB 46282825(L 36.0-48.0 % OINC) Low Hct 25.3 LAB 46261354(L 11.5-14.5 % OINC) High RDW 18.6 LAB 79952980(L 27.0-31.0 pg OINC) Normal MCH 28.9 LAB 37129624(L 33.0-37.0 G/DL OINC) Normal MCHC 34.1 LAB 78755052(L 78.0-100.0 fL OINC) Normal MCV 84.7 LAB 00554993(L 7.4-11.0 fL OINC) Normal MPV 7.6 LAB 30005593(L 130-400 E3/mcL OINC) Low Platelet 68 Performed By: #### [id number] #### DL RemHemo [address] [place] [address] MANUAL DIFF Collected: 12/10/2017 Status: F Source: ALEVISM 8:39 [facility] REPOSITORY Order Comment: Order Added by Discern Expert. TYPE CODE TESTS RESULT OUT OF REFERENCE UNITS RANGE LAB 59558453( 37-75 % LOINC) Segs Man 69 Normal LAB 43181489( 14-48 % LOINC) Lymph Man 21 Normal LAB 48638335( 1-11 % LOINC) Monocyte 6 Normal Man LAB 37869432( 0-5 % LOINC) Eos Man 2 Normal LAB 78242135( 0-1 % LOINC) Basophil 0 Normal Man LAB 27016941( % LOINC) React Lymph 2 Normal Man LAB 01140000( LOINC) RBC Morph SEE Normal MORPHOLOGY LAB 48845488( LOINC) 1+ Normal Anisocytosis Performed By: #### [id number] #### DL RemHemo [address] [place] [address] ZZPLT MORPH Collected: 12/10/2017 Status: F Source: ALEVISM 8:39 [facility] REPOSITORY TYPE CODE TESTS RESULT OUT OF RANGE REFERENCE UNITS LAB 00251780(L OINC) Normal Platelet DECREASED Estimate LAB 69543972(L OINC) Normal Platelet Morph NORMAL Performed By: #### [id number] #### [facility] [address] [place] [address] .MANUAL ABS Collected: 12/10/2017 Status: F Source: ALEVISM 8:39 [facility] REPOSITORY Order Comment: Order Added by Discern Expert. TYPE CODE TESTS RESULT OUT OF RANGE REFERENCE UNITS LAB 52073042(L 1.4-6.5 10x3/ OINC) Normal Segs Abs Man 3.7 LAB 45858524(L 1.2-3.4 10x3/ OINC) Low Lymph Abs Man 1.1 LAB 24433767(L 0.0-0.7 10x3/ OINC) Normal Sutter Abs Man 0.3 LAB 45279159(L 0.0-0.5 10x3/ OINC) Normal Eos Abs Man 0.1 LAB 45439891(L 0.0-0.2 10x3/ OINC) Normal Basophil Abs 0.0 Man Performed By: #### [id number] #### DL RemHemo [address] [place] [id number] Observed: 12/10/2017 Status: F Source: ALEVISM C BLOOD 8:39 PM [facility] REPOSITORY Order Comment: Lab Collect Final Report: No growth at 5 Days Performed By: #### [id number] #### DL Microbiology Automated Subsection [address] [place] [id number] Observed: 12/10/2017 Status: F Source: ALEVISM C BLOOD 8:39 PM [facility] REPOSITORY Order Comment: Lab Collect Final Report: No growth at 5 Days Performed By: #### [id number] #### DL Microbiology Automated Subsection [address] [place] [address] XR TIB/FIB LEFT 2 Observed: 12/08/2017 Status: F Source: ALEVISM VIEW 8:23 PM [facility] REPOSITORY Exam Date/Time: 12/08/2017 [...] pm Signed by: Yonatan Rosas MD Technologist: [facility] CT HEAD OR BRAIN W/O Observed: 12/08/2017 Status: F Source: ALEVISM CONTRAST 7:16 PM [facility] REPOSITORY Exam Date/Time: 12/08/2017 [...] LACTIC ACID Collected: 12/08/2017 Status: F Source: ALEVISM 7:00 PM [facility] REPOSITORY TYPE CODE TESTS RESULT OUT OF RANGE REFERENCE UNITS LAB 36889132(LO 0.5-2.2 mmol/L INC) Normal Lactic Acid 2.0 Lvl Performed By: #### [id number] #### DL RemChem [facility] [place] [address] AMMONIA Collected: 12/08/2017 Status: F Source: ALEVISM 7:00 PM [facility] REPOSITORY TYPE CODE TESTS RESULT OUT OF REFERENCE UNITS RANGE LAB 34301886(LO 7-35 mcmol INC) High Ammonia 54 Performed By: #### [id number] #### DL RemChem [facility] [place] [address] PT Collected: 12/08/2017 Status: F Source: ALEVISM 6:55 PM [facility] REPOSITORY TYPE CODE TESTS RESULT OUT OF RANGE REFERENCE UNITS LAB 76165835(LO 1.0-1.2 INC) High INR 1.5 Result Comment: INR Recommended Therapeuptic Ranges: Prophylaxis/treatment of DVT and PE?2.0-3.0 Prevention of systemic embolism?.2.0-3.0 Mechanical prosthetic values?2.5-3.5 CRITICAL VALUES?.>4.0 LAB 87112772(LOINC) 11.6-14.6 second(s) High PT 16.7 Performed By: #### [id number] #### DL Hematology Automated Subsection [address] [place] [address] CMP Collected: 12/08/2017 Status: F Source: ALEVISM 6:55 PM [facility] REPOSITORY TYPE CODE TESTS RESULT OUT OF RANGE REFERENCE UNITS LAB 74022917(L 42-121 Int._Unit/ OINC) L Alk Phos Normal 96 LAB 12121990(L 0.2-1.0 mg/dL OINC) High Bili Total 4.5 LAB 87917282(L 3.2-5.0 G/DL OINC) Albumin Normal Lvl 3.6 LAB 18298260(L 6.4-8.3 G/DL OINC) Total Normal Protein 7.1 LAB 00434222(L 10-40 Int._Unit/ OINC) L ALT Normal 19 LAB 54555526(L 10-42 Int._Unit/ OINC) L AST Normal 31 LAB 68824373(L 2.0-4.0 G/DL OINC) Globulin Normal 3.5 LAB 85622436(L 1.1-1.9 ratio OINC) Low A/G Ratio 1.0 LAB 00134874(L 70-99 mg/dL OINC) High Glucose Lvl 351 LAB 44572667(L 7-18 mg/dL OINC) High BUN 31 LAB 7816546(LO 0.6-1.3 mg/dL INC) High Creatinine 1.5 LAB 62867104(L 8.4-10.2 mg/dL OINC) Calcium Normal Lvl 9.0 LAB 69418449(L 136-145 mEq/L OINC) Low Sodium Lvl 129 LAB 24921597(L 3.5-5.1 mEq/L OINC) Normal Potassium Lvl 4.9 LAB 85387459(L 98-107 mEq/L OINC) Chloride Normal 104 LAB 87553846(L 24.0-30.0 mEq/L OINC) Low CO2 13.4 LAB 06703400(L 5.4-30.0 ratio OINC) Normal BUN/Creat Ratio 20.7 Performed By: #### [id number] #### DL Rem[facility] [address] [place], [place] [address] LIPASE LEVEL Collected: 12/08/2017 Status: F Source: ALEVISM 6:55 PM [facility] REPOSITORY TYPE CODE TESTS RESULT OUT OF RANGE REFERENCE UNITS LAB 48048871(LO 8-57 U/L INC) Normal Lipase Lvl 15 Performed By: #### [id number] #### DL Rem[facility] [address] [place] [address] EGFR Collected: 12/08/2017 Status: F Source: ALEVISM 6:55 [facility] REPOSITORY Order Comment: Order added by Discern Expert. TYPE CODE TESTS RESULT OUT OF RANGE REFERENCE UNITS LAB 53966745(LO mL/min/1.73 INC) m2 Normal eGFR 35 LAB 81715855(LO mL/min/1.73 INC) m2 Normal eGFR AA 43 Performed By: #### [id number] #### DL RemChem [facility] [place] [address] CBC W/ AUTO DIFF Collected: 12/08/2017 Status: F Source: [place] [address]:[address] [place] [address] REPOSITORY TYPE CODE TESTS RESULT OUT OF RANGE REFERENCE UNITS LAB 43915080(L 3.6-11.0 E3/mcL OINC) Normal WBC 7.5 LAB 69130437(L 3.90-5.40 E6/mcL OINC) Low RBC 3.02 LAB 01537245(L 12.0-16.0 G/DL OINC) Low Hgb 8.7 LAB 33493330(L 36.0-48.0 % OINC) Low Hct 25.9 LAB 98077293(L 11.5-14.5 % OINC) High RDW 18.6 LAB 94612065(L 27.0-31.0 pg OINC) Normal MCH 28.7 LAB 07967794(L 33.0-37.0 G/DL OINC) Normal MCHC 33.5 LAB 95444103(L 78.0-100.0 fL OINC) Normal MCV 85.8 LAB 10082255(L 7.4-11.0 fL OINC) Normal MPV 8.0 LAB 62578175(L 130-400 E3/mcL OINC) Low Platelet 57 Performed By: #### [id number] #### DL RemHemo [facility] [place] [address] MANUAL DIFF Collected: 12/08/2017 Status: F Source: ALEVISM 6:55 [facility] REPOSITORY Order Comment: Order Added by Discern Expert. TYPE CODE TESTS RESULT OUT OF REFERENCE UNITS RANGE LAB 17589500( 37-75 % LOINC) Segs Man 62 Normal LAB 87524796( 0-1 LOINC) Band Man 16 High LAB 26305468( 14-48 % LOINC) Low Lymph Man 12 LAB 99432277( 1-11 % LOINC) Monocyte Man 10 Normal LAB 74190392( 0-5 % LOINC) Eos Man 0 Normal LAB 70473675( 0-1 % LOINC) Basophil Man 0 Normal LAB 14740095( LOINC) RBC Morph SEE Normal MORPHOLOGY LAB 90473124( LOINC) Polychromasia 1+ Normal LAB 75617211( LOINC) Acanthocytes 1+ Normal Performed By: #### [id number] #### DL RemHemo [address] [place] [address] ZZPLT MORPH Collected: 12/08/2017 Status: F Source: [place] [address]:[address] [place] [address] REPOSITORY TYPE CODE TESTS RESULT OUT OF RANGE REFERENCE UNITS LAB 79645836(L OINC) Normal Platelet DECREASED Estimate LAB 28059201(L OINC) Normal Platelet Morph NORMAL Performed By: #### [id number] #### DL RemHemo [address] [place] [address] .MANUAL ABS Collected: 12/08/2017 Status: F Source: ALEVISM 6:[address] [place] [address] REPOSITORY Order Comment: Order Added by Discern Expert. TYPE CODE TESTS RESULT OUT OF RANGE REFERENCE UNITS LAB 59545304(L 1.4-6.5 10x3/ OINC) Normal Segs Abs Man 4.6 LAB 83967968(L 1.2-3.4 10x3/ OINC) Low Lymph Abs Man 0.9 LAB 10324509(L 0.0-0.7 10x3/ OINC) High Sutter Abs Man 0.8 LAB 00827842(L 0.0-0.5 10x3/ OINC) Normal Eos Abs Man 0.0 LAB 99600108(L 0.0-0.2 10x3/ OINC) Normal Basophil Abs 0.0 Man Performed By: #### [id number] #### DL RemHemo [facility] [place] [address] ABO/RH ECHO Collected: 12/08/2017 Status: F Source: [place] [address]:55 PM [facility] REPOSITORY TYPE CODE TESTS RESULT OUT OF RANGE REFERENCE UNITS LAB 23803024(LO INC) ABO/Rh E O POS Interp... Performed By: #### [id number] #### DL Blood Bank Subsection [address] [place] [address] ANTIBODY SCREEN Collected: 12/08/2017 Status: F Source: ALEVISM CAP... 6:55 PM [facility] REPOSITORY TYPE CODE TESTS RESULT OUT OF RANGE REFERENCE UNITS LAB 33324043(L OINC) Normal Screen Negative Interp... Performed By: #### [id number] #### DL Blood Bank Subsection [address] [place] [address] XR CHEST AP PORTABLE Observed: 12/08/2017 Status: F Source: ALEVISM 6:41 PM [facility] REPOSITORY Exam Date/Time: 12/08/2017 18:51 [...] pm Signed by: Maurice Islas MD Technologist: [facility] HCT & HGB Collected: 12/05/2017 Status: F Source: ALEVISM 9:38 AM [facility] REPOSITORY TYPE CODE TESTS RESULT OUT OF RANGE REFERENCE UNITS LAB 02086722(LO 12.0-16.0 G/DL INC) Low Hgb 8.9 LAB 06739438(LO 36.0-48.0 % INC) Low Hct 26.9 Performed By: #### [id number] #### DL RemHemo [address] [place], [place] [address] ALBUMIN Collected: 12/05/2017 Status: F Source: ALEVISM 9:38 AM [facility] REPOSITORY TYPE CODE TESTS RESULT OUT OF RANGE REFERENCE UNITS LAB 58250427(LO 3.2-5.0 G/DL INC) Normal Albumin Lvl 3.6 Performed By: #### [id number] #### DL RemChem [address] [place] [address] PHOSPHORUS Collected: 12/05/2017 Status: F Source: ALEVISM 9:38 AM [facility] REPOSITORY TYPE CODE TESTS RESULT OUT OF RANGE REFERENCE UNITS LAB 83776918(L 2.5-4.6 mg/dL OINC) Normal Phosphorus 3.8 Performed By: #### [id number] #### DL RemChem [facility] [place] [address] BUN Collected: 12/05/2017 Status: F Source: ALEVISM 9:38 AM [facility] REPOSITORY TYPE CODE TESTS RESULT OUT OF RANGE REFERENCE UNITS LAB 68024503(LO 7-18 mg/dL INC) High BUN 24 Performed By: #### [id number] #### DL RemChem [facility] [place] [address] CREATININE Collected: 12/05/2017 Status: F Source: ALEVISM 9:38 AM [facility] REPOSITORY TYPE CODE TESTS RESULT OUT OF REFERENCE UNITS RANGE LAB 2867493(LO 0.6-1.3 mg/dL INC) High Creatinine 1.6 Performed By: #### [id number] #### DL RemChem [facility] [place] [address] EGFR Collected: 12/05/2017 Status: F Source: ALEVISM 9:38 AM [facility] REPOSITORY Order Comment: Order added by Discern Expert. TYPE CODE TESTS RESULT OUT OF RANGE REFERENCE UNITS LAB 02195439(LO mL/min/1.73 INC) m2 Normal eGFR 33 LAB 36254230(LO mL/min/1.73 INC) m2 Normal eGFR AA 39 Performed By: #### [id number] #### DL RemChem [facility] [place] [address] LYTES Collected: 12/05/2017 Status: F Source: ALEVISM 9:38 AM [facility] REPOSITORY TYPE CODE TESTS RESULT OUT OF REFERENCE UNITS RANGE LAB 18911091(L 136-145 mEq/L OINC) Low Sodium Lvl 133 LAB 98442705(L 3.5-5.1 mEq/L OINC) High Potassium Lvl 5.4 LAB 39989563(L 98-107 mEq/L OINC) High Chloride 109 LAB 68660379(L 24.0-30.0 mEq/L OINC) Low CO2 19.2 Performed By: #### [id number] #### DL [facility] [address] [place] [address] CALCIUM Collected: 12/05/2017 Status: F Source: ALEVISM 9:38 AM [facility] REPOSITORY TYPE CODE TESTS RESULT OUT OF RANGE REFERENCE UNITS LAB 48868889(LO 8.4-10.2 mg/dL INC) Normal Calcium Lvl 9.3 Performed By: #### [id number] #### DL [facility] [address] [place] [address] U CREATININE Collected: 12/05/2017 Status: F Source: ALEVISM 9:38 AM [facility] REPOSITORY TYPE CODE TESTS RESULT OUT OF RANGE REFERENCE UNITS LAB 72752873(L 20-300 mg/dL OINC) U Normal Creatinine 72 Performed By: #### [id number] #### DL [facility] [address] [place] [address] U PROTEIN Collected: 12/05/2017 Status: F Source: ALEVISM 9:38 AM [facility] REPOSITORY TYPE CODE TESTS RESULT OUT OF REFERENCE UNITS RANGE LAB 89373789(LO 1-14 mg/dL INC) Ur High Total Protein 49 Performed By: #### [id number] #### DL RemChem [facility] [place] [address] AMMONIA Collected: 11/27/2017 Status: F Source: ALEVISM 3:42 PM [facility] REPOSITORY TYPE CODE TESTS RESULT OUT OF REFERENCE UNITS RANGE LAB 10936538(LO 7-35 mcmol INC) High Ammonia 77 Performed By: #### [id number] #### DL RemChem [facility] [place] [address] BMP Collected: 11/21/2017 Status: F Source: ALEVISM 11:34 AM [facility] REPOSITORY TYPE CODE TESTS RESULT OUT OF RANGE REFERENCE UNITS LAB [id number](L 70-99 mg/dL OINC) High Glucose Lvl 177 LAB 16085103(L 8.4-10.2 mg/dL OINC) Calcium Normal Lvl 9.2 LAB 93120551(L 136-145 mEq/L OINC) Low Sodium Lvl 132 LAB 80360292(L 3.5-5.1 mEq/L OINC) Normal Potassium Lvl 4.5 LAB 94053536(L 98-107 mEq/L OINC) Chloride Normal 101 LAB 24069109(L 24.0-30.0 mEq/L OINC) Low CO2 21.7 LAB 65927461(L 7-18 mg/dL OINC) High BUN 35 LAB 3514101(LO 0.6-1.3 mg/dL INC) High Creatinine 1.8 LAB 29732625(L 5.4-30.0 ratio OINC) Normal BUN/Creat Ratio 19.4 Performed By: #### [id number] #### DL [facility] [facility] [place] [address] EGFR Collected: 11/21/2017 Status: F Source: ALEVISM 11:34 AM [facility] REPOSITORY Order Comment: Order added by Discern Expert. TYPE CODE TESTS RESULT OUT OF RANGE REFERENCE UNITS LAB [id number](LO mL/min/1.73 INC) m2 Normal eGFR 28 LAB 89427168(LO mL/min/1.73 INC) m2 Normal eGFR AA 34 Performed By: #### [id number] #### DL [employer] [facility] [place] [id number] CBC W/ AUTO DIFF Collected: 11/21/2017 Status: F Source: ALEVISM 11:34 AM [facility] REPOSITORY TYPE CODE TESTS RESULT OUT OF RANGE REFERENCE UNITS LAB [id number](L 3.6-11.0 E3/mcL OINC) Normal WBC 5.8 LAB 54057638(L 3.90-5.40 E6/mcL OINC) Low RBC 3.72 LAB 06158418(L 12.0-16.0 G/DL OINC) Low Hgb 10.9 LAB 61288482(L 36.0-48.0 % OINC) Low Hct 31.9 LAB 27727935(L 11.5-14.5 % OINC) High RDW 17.6 LAB 52535206(L 27.0-31.0 pg OINC) Normal MCH 29.2 LAB 69699280(L 33.0-37.0 G/DL OINC) Normal MCHC 34.1 LAB 38621398(L 78.0-100.0 fL OINC) Normal MCV 85.6 LAB 62038191(L 7.4-11.0 fL OINC) Normal MPV 8.3 LAB 53076274(L 130-400 E3/mcL OINC) Low Platelet 84 Performed By: #### [id number] #### DL [employer] [facility] [place] [address] MORPH Collected: 11/21/2017 Status: F Source: ALEVISM 11:34 AM [facility] REPOSITORY Order Comment: Order Added by Discern Expert. TYPE CODE TESTS RESULT OUT OF REFERENCE UNITS RANGE LAB [id number]( LOINC) RBC Morph SEE Normal MORPHOLOGY LAB 89778529( LOINC) 1+ Normal Anisocytosis Performed By: #### [id number] #### DL Wolfe[facility]emo [facility] [place] [address] ZZPLT MORPH Collected: 11/21/2017 Status: F Source: [facility]LEVISM 11:34 AM [facility] REPOSITORY TYPE CODE TESTS RESULT OUT OF RANGE REFERENCE UNITS LAB 38411073(L OINC) Normal Platelet DECREASED Estimate LAB 54008213(L OINC) Normal Platelet Morph NORMAL Performed By: #### [id number] #### [place] [address] AUTO DIFF Collected: 11/21/2017 Status: F Source: ALEVISM 11:34 AM [facility] REPOSITORY Order Comment: Order Added by Discern Expert. TYPE CODE TESTS RESULT OUT OF RANGE REFERENCE UNITS LAB [id number](L 37.0-75.0 % OINC) Normal Neutro Auto 58.6 LAB [id number](L 20.0-55.0 % OINC) Normal Lymph Auto 22.6 LAB 29469352(L 0.0-10.0 % OINC) Normal Sutter Auto 9.4 LAB 76178547(L 0.0-11.0 % OINC) Normal Eos Auto 7.5 LAB 98116016(L 0.0-2.0 % OINC) Normal Basophil Auto 1.9 LAB 88622718(L 1.4-6.5 E3/mcL OINC) Normal Neutro 3.4 Absolute LAB 22748250(L 1.2-3.4 E3/mcL OINC) Normal Lymph Absolute 1.3 LAB 94777588(L 0.0-0.7 E3/mcL OINC) Normal Sutter Absolute 0.5 LAB 98688312(L 0.0-0.7 E3/mcL OINC) Normal Eos Absolute 0.4 LAB 50227600(L 0.0-0.2 E3/mcL OINC) Normal Basophil 0.1 Absolute Performed By: #### [id number] #### DL Rem[facility] [address] [place] [address] VIT B12 Collected: 11/21/2017 Status: F Source: ALEVISM 11:34 AM [facility] REPOSITORY TYPE CODE TESTS RESULT OUT OF REFERENCE UNITS RANGE LAB [id number](LO 180-914 pg/mL INC) High Vitamin B12 1192 Lvl Performed By: #### [id number] #### DL [facility] [address] [place] [address] HGBA1C Collected: 11/21/2017 Status: F Source: ALEVISM 11:34 AM [facility] REPOSITORY TYPE CODE TESTS RESULT OUT OF REFERENCE UNITS RANGE LAB [id number]( 4.0-6.3 % LOINC) High Hemoglobin A1c 6.9 Performed By: #### [id number] #### DL Chemistry Manual Subsection [facility] [place] [address] *CRE/GFR POC DEVICE Collected: 11/06/2017 Status: F Source: [facility] 9:40 AM [facility] REPOSITORY TYPE CODE TESTS RESULT OUT OF REFERENCE UNITS RANGE LAB CREPC 0.50-1.20 mg/dL High Creatinine (poc 2.12 device) LAB GFRPC >60 mL/min/1.7 Low 3 sq m est GFR, (poc device) 25 Observed: 11/03/2017 Status: F Source: [facility] 5:38 PM [facility] REPOSITORY Final Report: Moderate Escherichia coli Moderate [...] Vanc : 0.5 S Performed By: #### [id number] #### DL Microbiology Subsection [address] [place], [place] [id number] CT ABDOMEN/PELVIS WITHOUT Observed: 10/22/2017 Status: F Source: [facility] 10:27 PM [facility] REPOSITORY EXAM: CT ABDOMEN/PELVIS WITHOUT CONTRAST, 10/16/2017 [...] numbers are related to this dose report {[id number]}: [id number] The dose indicators for CT are the [...] SIVE CARDIOLOGY Observed: 10/21/2017 Status: F Source: [facility] CATH PROCEDURE 8:51 AM [facility] REPOSITORY [facility] Summary: No occlusive CAD RCA with minimal [...] Procedure Ordering Physician: Valerie Sanon Order #: [id number] Study Date: 10/20/2017 Patient Information Name MRN Description Kim Dillon [id number] y.o. Female Location Name Address [facility] [address] [facility] [id number] Physicians Panel Physicians Referring Physician Case Authorizing [...] Indications Pre-operative cardiovascular examination [Z01.810 (ICD-10-CM)] Conclusion [facility] Summary: No occlusive CAD RCA with minimal [...] cpap Provider Overweight(278.02) Provider Peripheral neuropathy ([facility]) Provider Renal disease Provider Splenomegaly Provider Medical History - Pertinent Negatives Pertinent Negative Date Comment Source Arrhythmia 09/15/2017 Provider Asthma 09/15/2017 Provider CAD (coronary artery disease) 09/15/2017 Provider Congestive heart failure ([facility]) 09/15/2017 Provider COPD (chronic obstructive pulmonary disease) ([facility]) 09/15/2017 Provider Hyperlipidemia 09/15/2017 Provider Hyperthyroidism 09/15/2017 Provider Hypothyroidism 09/15/2017 Provider AK (myocardial infarction) 09/15/2017 Provider Pacemaker 06/08/2015 Provider Seizure ([facility]) 06/08/2015 Provider Stroke ([facility]) 09/15/2017 Provider TIA (transient ischemic attack) 09/15/2017 Provider Vascular disease 09/15/2017 Provider Procedure The risks and alternatives of the procedure and conscious sedation were explained. Informed consent was obtained. The patient was brought to the labourers and placed on the table. The planned [...] MD - 10/20/2017 3:32 PM EDT Cardiac Salon Professional Attending Physician Statement and Signature I have [...] GLUCOSE BATTERY Collected: 10/20/2017 Status: F Source: [facility] 3:38 PM [facility] REPOSITORY TYPE CODE TESTS RESULT OUT OF REFERENCE UNITS RANGE LAB GLUP 70-99 mg/dL High Glucose (poc 258 device) Result Comment: No BRAVE per RN: PATIENT TYPE LAB PCSTYP *POC Capillary SAMPLE TYPE Blood *POC GLUCOSE BATTERY Collected: 10/20/2017 Status: F Source: [facility] 10:42 AM [facility] REPOSITORY TYPE CODE TESTS RESULT OUT OF REFERENCE UNITS RANGE LAB GLUP 70-99 mg/dL High Glucose (poc 287 device) Result Comment: No BRAVE per RN: PATIENT TYPE LAB PCSTYP *POC SAMPLE TYPE Venous HEMOGRAM (CBC AND Collected: 10/20/2017 Status: F Source: [facility] PLATELET) 10:11 AM [facility] REPOSITORY TYPE CODE TESTS RESULT [...] By: #### HEMOGC, CHM6, PTI #### [facility] [address] [place] [address] CHEM 6 Collected: 10/20/2017 Status: F Source: [facility] 10:11 AM [facility] REPOSITORY TYPE CODE TESTS RESULT [...] >60 mL/min/1.73 Low sqM Est GFR,non 34 Dutch LAB GFRA >60 mL/min/1.73 Low sqM Est GFR, 41 Performed By: #### HEMOGC, CHM6, PTI #### U [facility] [address] [place] [address] [facility] [address] [place] [address] PT/INR BATTERY Collected: 10/20/2017 Status: F Source: [facility] 10:11 AM [facility] REPOSITORY TYPE CODE TESTS RESULT OUT OF RANGE REFERENCE UNITS LAB PT 11.9-14.2 sec High PT 15.7 LAB INR 0.9-1.1 High INR 1.3 Performed By: #### HEMOGC, CHM6, PTI #### [facility] [address] [place], [place] [address] [place] [address] [address] [place] [address] PT*PTT - CHRI Collected: 10/16/2017 Status: F Source: [facility] 1:20 PM [facility] REPOSITORY TYPE CODE TESTS RESULT OUT OF RANGE REFERENCE UNITS LAB PT 11.9-14.2 sec High PT 15.4 LAB INR 0.9-1.1 High INR 1.2 LAB PTT 24.0-34.3 sec PTT 30.5 Performed By: #### BOOMDFJ #### Enoch [facility] [address] [place] [address] ALBUMIN - CHRI Collected: 10/16/2017 Status: F Source: [facility] 1:20 PM [facility] REPOSITORY TYPE CODE TESTS RESULT OUT OF REFERENCE UNITS RANGE LAB ALB 3.5-5.0 g/dL Albumin 3.8 Performed By: #### ISSACJ #### E[facility] [address] [place] [address] ALP*ALT*AST - CHRI Collected: 10/16/2017 Status: F Source: [facility] 1:20 PM [facility] REPOSITORY TYPE CODE TESTS RESULT OUT OF REFERENCE UNITS RANGE LAB ALT 9-48 U/L ALT 17 LAB AST 14-40 U/L AST 23 LAB ALP 32-126 U/L Alkaline High Phosphatase 130 Performed By: #### BOOMDFJ #### [facility] [address] [place] [address] BILIRUBIN - CHRI Collected: 10/16/2017 Status: F Source: [facility] 1:20 PM [facility] REPOSITORY TYPE CODE TESTS RESULT OUT OF REFERENCE UNITS RANGE LAB BILT <1.5 mg/dL High Bilirubin Total 5.0 LAB BILD <0.3 mg/dL High Bilirubin 1.2 Direct Performed By: #### CBCDFJ #### Enoch [facility], [facility] [address] [place], [place] [address] CALCIUM - CHRI Collected: 10/16/2017 Status: F Source: [facility] 1:20 PM [facility] REPOSITORY TYPE CODE TESTS RESULT OUT OF REFERENCE UNITS RANGE LAB CA 8.6-10.5 mg/dL Calcium 9.4 Performed By: #### CBCDFJ #### [facility]T, [facility] [address] [place] [address] CHEM 7 - CHRI Collected: 10/16/2017 Status: F Source: [facility] 1:20 PM [facility] REPOSITORY TYPE CODE TESTS RESULT [...] >60 mL/min/1.73 Low sqM Est GFR,non 35 Dutch LAB GFRA >60 mL/min/1.73 Low sqM Est GFR, 42 LAB GAP 7-17 mmol/L Anion Gap 13 LAB BC BUN/CREA Ratio 23 LAB OSMC 278-305 mOsm/kg Osmolality 295 (Calc) Performed By: #### CBCDFJ #### Enoch [facility], [facility] [address] [place], [place] [address] CBC WITH DIFF ENOCH Collected: 10/16/2017 Status: F Source: [facility] 1:20 PM [facility] REPOSITORY TYPE CODE TESTS RESULT [...] 1.07 Low LAB AMONO 0.24-0.86 K/uL Abs Sutter 0.42 LAB AEOS 0.04-0.36 K/uL Abs Eos 0.40 High LAB ABASO 0.01-0.08 K/uL Abs Baso 0.05 Performed By: #### CBCDFJ #### Enoch [facility], [facility] [address] [address] [address] CHEST WITHOUT Observed: 10/16/2017 Status: F Source: [facility] 12:31 PM [facility] REPOSITORY EXAM: CT CHEST WITHOUT CONTRAST, 10/16/2017 [...] numbers are related to this dose report {[id number]}: [id number] The dose indicators for CT are the [...] CANCER, FISH Collected: 10/16/2017 Status: F Source: [facility] 11:43 AM [facility] REPOSITORY TYPE CODE TESTS RESULT OUT OF REFERENCE UNITS RANGE LAB YBRES Bladder See below Cancer, FISH Result Comment: (NOTE) CYTOGENETIC RESULTS Cytogenetic Reference #: [id number] Test Setup Date: 10/17/2017 Test Completion Date: [...] of this assay have been determined by [place] The modifications have not been cleared or approved by the FDA. This assay has been validated pursuant to the CLIA regulations and is used for clinical purposes. For a review of the performance characteristics of the UroVysion assay, see Adv Carola Pathol 2008;15:279-86. FISH ISCN: nuc marilia(D3Z1,D7Z1,CDKN2A,D17Z1)x2 Electronic Signature on File Toro Alonso, Ph.D., [facility] Director, Cytogenetics and Genomics, Test Performed by [facility], [facility], [address] [place] [address] Colin Fleming M.D., Ph.D., Director of Laboratories , [facility] [id number] Test sent to [employer] Lab Performed By: #### YBFISH #### Reference lab information reported with result HLA SINGLE LOCUS Collected: 09/15/2017 Status: F Source: [facility] 3:00 PM [facility] REPOSITORY TYPE CODE TESTS RESULT [...] for FDA approval. Testing performed by the [facility] Clinical Histocompatibility Laboratory. [facility] number: [id number]. CLIA number: [id number], Director: Manuelito Mcconnell, PhD, D([facility]). Performed By: #### HLALOC #### [address] [place] [address] Observed: 09/15/2017 Status: F Source: [facility] TYPE AND SCREEN - 1:[address] [facility] REPOSITORY ABO/RH(D): O POSITIVE ANTIBODY SCREEN: NEGATIVE Performed By: #### TYSC #### [address] [place] [address] ALCOHOL, URINE Collected: 09/15/2017 Status: F Source: [facility] 12:04 PM [facility] REPOSITORY TYPE CODE TESTS RESULT OUT OF REFERENCE UNITS RANGE LAB ALCOUU <10 mg/dL NONE DETECTED Alcohol, Urine Performed By: #### ALCOUU, UDRG #### [address] [place] [address] URINE DRUG SCREEN Collected: 09/15/2017 Status: F Source: [facility] 12:04 PM [facility] REPOSITORY TYPE CODE TESTS RESULT OUT OF REFERENCE UNITS RANGE LAB AURES URINE DRUGS DETECTED Result Comment: CAFFEINE ZOLPIDEM Diphenhydramine SERTRALINE LAB AUDRG For Medical Purposes Urine Drug Only, Non-forensic, Screen screen results are presumptive. No confirmatory testing will follow. Result Comment: This Liquid Chromatography Mass Spectrometry (LC/MS/MS) test was developed and its performance characteristics determined by Toxicology Laboratory at [facility]. It has not been cleared or approved [...] Amitriptyline(50), Amphetamine(250), Atenolol(500), Barbiturates(200), Benzoylecgonine(50), Buprenorphine(500), Bupropion(25), Caffeine([address]), Cannabinoids(THC)(50), Chlordiazepoxide(50), Chlorpheniramine(100), Chlorpromazine(50), Citalopram(100), Clonazepam(200), Cocaine(25), [...] Zolpidem(200) Performed By: #### ALCOUU, UDRG #### [place] [address] PT*PTT Collected: 09/15/2017 Status: F Source: [facility] 12:03 [facility] REPOSITORY TYPE CODE TESTS RESULT OUT OF RANGE REFERENCE UNITS LAB PT 11.9-14.2 sec High PT 15.4 LAB INR 0.9-1.1 High INR 1.2 LAB PTT 24.0-34.3 sec PTT 29.8 Performed By: #### PTPTT, ALB, BILI, CA, CHM7, ENZ3, ALCOSU, CBCDFC, A1CB, SERDRG, HBSAB, HBSAG, HCAB, TOXOG, HAABG, HBCBG, HIV, EBVG, HSVG12, SYPHG, RUBOIB, VZISB, CMVG, QFTB, AFPTMR, THCCMS #### [place] [address] #### HLAB #### [facility] (DEFAULT) [address] [place] [address] ALBUMIN Collected: 09/15/2017 Status: F Source: [facility] 12:03 [facility] REPOSITORY TYPE CODE TESTS RESULT OUT OF REFERENCE UNITS RANGE LAB ALB 3.5-5.0 g/dL Albumin 3.7 Performed By: #### PTPTT, ALB, BILI, CA, CHM7, ENZ3, ALCOSU, CBCDFC, A1CB, SERDRG, HBSAB, HBSAG, HCAB, TOXOG, HAABG, HBCBG, HIV, EBVG, HSVG12, SYPHG, RUBOIB, VZISB, CMVG, QFTB, AFPTMR, THCCMS #### [facility] [address] [place] [address] [facility] [address] [place] [address] #### HLAB #### [facility] (DEFAULT) [address] [place] [address] BILIRUBIN, TOTAL AND Collected: 09/15/2017 Status: F Source: [facility] DIRECT 12:03 PM [facility] REPOSITORY TYPE CODE TESTS RESULT OUT OF REFERENCE UNITS RANGE LAB BILT <1.5 mg/dL High Bilirubin Total 4.5 LAB BILD <0.3 mg/dL High Bilirubin 1.2 Direct Performed By: #### PTPTT, ALB, BILI, CA, CHM7, ENZ3, ALCOSU, CBCDFC, A1CB, SERDRG, HBSAB, HBSAG, HCAB, TOXOG, HAABG, HBCBG, HIV, EBVG, HSVG12, SYPHG, RUBOIB, VZISB, CMVG, QFTB, AFPTMR, THCCMS #### [facility] [address] [place] [address] [facility] [address] [place] [address] #### HLAB #### [facility] (DEFAULT) [address] [place] [address] CALCIUM Collected: 09/15/2017 Status: F Source: [facility] 12:03 PM [facility] REPOSITORY TYPE CODE TESTS RESULT OUT OF REFERENCE UNITS RANGE LAB CA 8.6-10.5 mg/dL Calcium 8.9 Performed By: #### PTPTT, ALB, BILI, CA, CHM7, ENZ3, ALCOSU, CBCDFC, A1CB, SERDRG, HBSAB, HBSAG, HCAB, TOXOG, HAABG, HBCBG, HIV, EBVG, HSVG12, SYPHG, RUBOIB, VZISB, CMVG, QFTB, AFPTMR, THCCMS #### [facility] [address] [address] #### HLAB #### [facility] (DEFAULT) [address] [place] [address] CHEM 7 Collected: 09/15/2017 Status: F Source: [facility] 12:03 [facility] REPOSITORY TYPE CODE TESTS RESULT [...] >60 mL/min/1.73 Low sqM Est GFR,non 30 Dutch LAB GFRA >60 mL/min/1.73 Low sqM Est GFR, 36 Performed By: #### PTPTT, ALB, BILI, CA, CHM7, ENZ3, ALCOSU, CBCDFC, A1CB, SERDRG, HBSAB, HBSAG, HCAB, TOXOG, HAABG, HBCBG, HIV, EBVG, HSVG12, SYPHG, RUBOIB, VZISB, CMVG, QFTB, AFPTMR, THCCMS #### [facility] [address] [address] #### HLAB #### [facility] (DEFAULT) [address] [place] [address] ALP*ALT*AST Collected: 09/15/2017 Status: F Source: [facility] 12:03 [facility] REPOSITORY TYPE CODE TESTS RESULT OUT OF REFERENCE UNITS RANGE LAB ALP 32-126 U/L Alkaline High Phosphatase 144 LAB ALT 9-48 U/L ALT 20 LAB AST 14-40 U/L AST 22 Performed By: #### PTPTT, ALB, BILI, CA, CHM7, ENZ3, ALCOSU, CBCDFC, A1CB, SERDRG, HBSAB, HBSAG, HCAB, TOXOG, HAABG, HBCBG, HIV, EBVG, HSVG12, SYPHG, RUBOIB, VZISB, CMVG, QFTB, AFPTMR, THCCMS #### [facility] [address] [address] #### HLAB #### [facility] (DEFAULT) [address] [place] [address] ALCOHOL,WHOLE BLOOD/SERUM Collected: 09/15/2017 Status: F Source: [facility] 12:03 [facility] REPOSITORY TYPE CODE TESTS RESULT OUT OF REFERENCE UNITS RANGE LAB ALCOSU <10 mg/dL <10 Alcohol,Whol e Blood/Serum Result Comment: For Medical Purposes Only, Non forensic Performed By: #### PTPTT, ALB, BILI, CA, CHM7, ENZ3, ALCOSU, CBCDFC, A1CB, SERDRG, HBSAB, HBSAG, HCAB, TOXOG, HAABG, HBCBG, HIV, EBVG, HSVG12, SYPHG, RUBOIB, VZISB, CMVG, QFTB, AFPTMR, THCCMS #### [facility] [address] [address] #### HLAB #### [facility] (DEFAULT) [address] [address] CBC,PLATELET,DIFFERENTIAL - CCL Collected: Status: F Source: [facility] 09/15/2017 12:03 [facility] REPOSITORY TYPE CODE TESTS RESULT OUT OF [...] 0.65 Low LAB AMONO 0.24-0.86 K/uL Abs Sutter 0.26 LAB AEOS 0.04-0.36 K/uL Abs Eos 0.16 LAB ABASO 0.01-0.08 K/uL Abs Baso 0.02 Performed By: #### PTPTT, ALB, BILI, CA, CHM7, ENZ3, ALCOSU, CBCDFC, A1CB, SERDRG, HBSAB, HBSAG, HCAB, TOXOG, HAABG, HBCBG, HIV, EBVG, HSVG12, SYPHG, RUBOIB, VZISB, CMVG, QFTB, AFPTMR, THCCMS #### [facility] [address] [place] [address] [place] [address] #### HLAB #### [facility] (DEFAULT) [address] [place] [address] HEMOGLOBIN A1C Collected: 09/15/2017 Status: F Source: [facility] 12:03 PM [facility] REPOSITORY TYPE CODE TESTS RESULT OUT OF REFERENCE UNITS RANGE LAB A1C 4.7-5.6 % High Hemoglobin A1C 7.3 LAB EAG mg/dL Estimated 163 Average Glucose Performed By: #### PTPTT, ALB, BILI, CA, CHM7, ENZ3, ALCOSU, CBCDFC, A1CB, SERDRG, HBSAB, HBSAG, HCAB, TOXOG, HAABG, HBCBG, HIV, EBVG, HSVG12, SYPHG, RUBOIB, VZISB, CMVG, QFTB, AFPTMR, THCCMS #### [facility] [address] [place] [address] [facility] [address] [place] [address] #### HLAB #### [facility] (DEFAULT) [address] [place] [address] BLOOD DRUG SCREEN Collected: 09/15/2017 Status: F Source: [facility] 12:03 PM [facility] REPOSITORY TYPE CODE TESTS RESULT [...] characteristics determined by Toxicology Laboratory at [facility]. It has not been cleared or approved [...] Amitriptyline(50), Amphetamine(250), Atenolol(500), Barbiturates(1000), Benzoylecgonine(50), Buprenorphine(50), Bupropion(25), Caffeine([address]), Chlordiazepoxide(50), Chlorpheniramine(100), Chlorpromazine(50), Citalopram(100), Clonazepam(200), Cocaine(25), Codeine(200), [...] VZISB, CMVG, QFTB, AFPTMR, THCCMS #### U [facility] [address] [place] [address] #### HLAB #### [facility] (DEFAULT) [address] [place] [address] HLA TYPING Collected: 09/15/2017 Status: X Source: [facility] 12:03 [facility] REPOSITORY TYPE CODE TESTS RESULT OUT OF REFERENCE UNITS RANGE LAB HLAB HLA TYPING This result has been cancelled. Performed By: #### PTPTT, ALB, BILI, CA, CHM7, ENZ3, ALCOSU, CBCDFC, A1CB, SERDRG, HBSAB, HBSAG, HCAB, TOXOG, HAABG, HBCBG, HIV, EBVG, HSVG12, SYPHG, RUBOIB, VZISB, CMVG, QFTB, AFPTMR, THCCMS #### [facility] [address] [place] [address] [address] [address] #### HLAB #### [facility] (DEFAULT) [address] [place] [address] HEP B SURFACE AB Collected: 09/15/2017 Status: F Source: [facility] 12:03 [facility] REPOSITORY TYPE CODE TESTS RESULT OUT OF REFERENCE UNITS RANGE LAB HBSAB Hep B Surface Negative Ab Performed By: #### PTPTT, ALB, BILI, CA, CHM7, ENZ3, ALCOSU, CBCDFC, A1CB, SERDRG, HBSAB, HBSAG, HCAB, TOXOG, HAABG, HBCBG, HIV, EBVG, HSVG12, SYPHG, RUBOIB, VZISB, CMVG, QFTB, AFPTMR, THCCMS #### [facility] [address] [place] [address] [place] [address] [address] [place] [address] #### HLAB #### [facility] (DEFAULT) [address] [place] [address] HEP B SURFACE AG Collected: 09/15/2017 Status: F Source: [facility] 12:03 PM [facility] REPOSITORY TYPE CODE TESTS RESULT OUT OF REFERENCE UNITS RANGE LAB HBSAG Negative Hep B Surface Negative Ag Performed By: #### PTPTT, ALB, BILI, CA, CHM7, ENZ3, ALCOSU, CBCDFC, A1CB, SERDRG, HBSAB, HBSAG, HCAB, TOXOG, HAABG, HBCBG, HIV, EBVG, HSVG12, SYPHG, RUBOIB, VZISB, CMVG, QFTB, AFPTMR, THCCMS #### [facility] [address] [place] [address] [address] [place] [address] #### HLAB #### [facility] (DEFAULT) [address] [place] [address] HEPATITIS C ANTIBODY Collected: 09/15/2017 Status: F Source: [facility] 12:03 [facility] REPOSITORY TYPE CODE TESTS RESULT OUT OF REFERENCE UNITS RANGE LAB HCAB Negative Hepatitis C Negative Antibody Performed By: #### PTPTT, ALB, BILI, CA, CHM7, ENZ3, ALCOSU, CBCDFC, A1CB, SERDRG, HBSAB, HBSAG, HCAB, TOXOG, HAABG, HBCBG, HIV, EBVG, HSVG12, SYPHG, RUBOIB, VZISB, CMVG, QFTB, AFPTMR, THCCMS #### [facility] [address] [place] [id number] [place] [address] [address] #### HLAB #### [facility] (DEFAULT) [address] [place] [address] TOXOPLASMA IGG Collected: 09/15/2017 Status: F Source: [facility] ANTIBODY 12:03 PM [facility] REPOSITORY TYPE CODE TESTS RESULT OUT OF REFERENCE UNITS RANGE LAB TOXOG Negative Toxoplasma IgG Negative Antibody Result Comment: [employer] XP Toxo IgG Chemiluminescence Performed By: #### PTPTT, ALB, BILI, CA, CHM7, ENZ3, ALCOSU, CBCDFC, A1CB, SERDRG, HBSAB, HBSAG, HCAB, TOXOG, HAABG, HBCBG, HIV, EBVG, HSVG12, SYPHG, RUBOIB, VZISB, CMVG, QFTB, AFPTMR, THCCMS #### [facility] [address] [place] [address] #### HLAB #### [facility] (DEFAULT) [address] [place] [address] HEP A AB, (IGG+IGM) Collected: 09/15/2017 Status: F Source: [facility] 12:03 PM [facility] REPOSITORY TYPE CODE TESTS RESULT OUT OF RANGE REFERENCE UNITS LAB HAABG Negative Abnormal Hep A POSITIVE Ab, (IgG+IgM) Performed By: #### PTPTT, ALB, BILI, CA, CHM7, ENZ3, ALCOSU, CBCDFC, A1CB, SERDRG, HBSAB, HBSAG, HCAB, TOXOG, HAABG, HBCBG, HIV, EBVG, HSVG12, SYPHG, RUBOIB, VZISB, CMVG, QFTB, AFPTMR, THCCMS #### [place] [facility] [address] [place] [address] [address] [place] [address] #### HLAB #### [place] [facility] (DEFAULT) 410 [place] [address] HEP B CORE AB,TOTAL Collected: 09/15/2017 Status: F Source: [facility] (IGG+IGM) 12:03 PM [facility] REPOSITORY TYPE CODE TESTS RESULT OUT OF RANGE REFERENCE UNITS LAB HBCBG Negative Normal Hep B Negative Core Ab,Total (IgG+IgM) Result Comment: Results inconsistent with the patient's previous results Performed By: #### PTPTT, ALB, BILI, CA, CHM7, ENZ3, ALCOSU, CBCDFC, A1CB, SERDRG, HBSAB, HBSAG, HCAB, TOXOG, HAABG, HBCBG, HIV, EBVG, HSVG12, SYPHG, RUBOIB, VZISB, CMVG, QFTB, AFPTMR, THCCMS #### [facility] [address] [place] [address] #### HLAB #### [facility] (DEFAULT) [address] [place] [address] HIV-1/HIV-2 AB WITH P24 Collected: 09/15/2017 Status: F Source: [facility] 12:03 [facility] REPOSITORY TYPE CODE TESTS RESULT OUT OF REFERENCE UNITS RANGE LAB HIV NONREACTIVE NONREACTIVE HIV-1/HIV-2 AB with p24 Antige Performed By: #### PTPTT, ALB, BILI, CA, CHM7, ENZ3, ALCOSU, CBCDFC, A1CB, SERDRG, HBSAB, HBSAG, HCAB, TOXOG, HAABG, HBCBG, HIV, EBVG, HSVG12, SYPHG, RUBOIB, VZISB, CMVG, QFTB, AFPTMR, THCCMS #### [facility] [address] [place] [address] #### HLAB #### [facility] (DEFAULT) [address] [place] [address] EBV VCA IGG ANTIBODY Collected: 09/15/2017 Status: F Source: [facility] 12:03 [facility] REPOSITORY TYPE CODE TESTS RESULT OUT OF RANGE REFERENCE UNITS LAB EBVG Negative Abnormal EBV VCA IgG POSITIVE Antibody Performed By: #### PTPTT, ALB, BILI, CA, CHM7, ENZ3, ALCOSU, CBCDFC, A1CB, SERDRG, HBSAB, HBSAG, HCAB, TOXOG, HAABG, HBCBG, HIV, EBVG, HSVG12, SYPHG, RUBOIB, VZISB, CMVG, QFTB, AFPTMR, THCCMS #### [facility] [address] [place] [address] #### HLAB #### [facility] (DEFAULT) [address] [address] HSV I&II IGG ANTIBODY Collected: 09/15/2017 Status: F Source: [facility] 12:03 PM [facility] REPOSITORY TYPE CODE TESTS RESULT OUT OF RANGE REFERENCE UNITS LAB HSVG1 Negative Abnormal HSV 1 IgG POSITIVE Antibody LAB HSVG2 Negative HSV 2 IgG Negative Antibody Performed By: #### PTPTT, ALB, BILI, CA, CHM7, ENZ3, ALCOSU, CBCDFC, A1CB, SERDRG, HBSAB, HBSAG, HCAB, TOXOG, HAABG, HBCBG, HIV, EBVG, HSVG12, SYPHG, RUBOIB, VZISB, CMVG, QFTB, AFPTMR, THCCMS #### [facility] [address] [place] [address] #### HLAB #### [facility] (DEFAULT) 410 [place] [address] SYPHILIS IGG AB WITH Collected: 09/15/2017 Status: F Source: [facility] REFLEX RPR 12:03 [facility] REPOSITORY TYPE CODE TESTS RESULT OUT OF REFERENCE UNITS RANGE LAB SYPHG Negative Syphilis IgG Negative AB with Reflex RP Performed By: #### PTPTT, ALB, BILI, CA, CHM7, ENZ3, ALCOSU, CBCDFC, A1CB, SERDRG, HBSAB, HBSAG, HCAB, TOXOG, HAABG, HBCBG, HIV, EBVG, HSVG12, SYPHG, RUBOIB, VZISB, CMVG, QFTB, AFPTMR, THCCMS #### [facility] [address] [place] [address] #### HLAB #### [facility] (DEFAULT) [address] [address] MEASLES RUBEOLA Collected: 09/15/2017 Status: F Source: [facility] IMMUNE STATUS AB 12:03 PM [facility] REPOSITORY TYPE CODE TESTS RESULT [...] VZISB, CMVG, QFTB, AFPTMR, THCCMS #### [facility] [address] [place] [address] #### HLAB #### U [facility] (DEFAULT) [address] [address] VARICELLA IMMUNE Collected: 09/15/2017 Status: F Source: [facility] STATUS IGG ANTIBODY 12:03 PM [facility] REPOSITORY TYPE CODE TESTS RESULT [...] RUBOIB, VZISB, CMVG, QFTB, AFPTMR, THCCMS #### [facility] [address] [place] [address] [facility] [address] [place] [address] #### HLAB #### U [facility] (DEFAULT) [address] [address] CMV IGG ANTIBODY Collected: 09/15/2017 Status: F Source: [facility] 12:03 PM [facility] REPOSITORY TYPE CODE TESTS RESULT OUT OF RANGE REFERENCE UNITS LAB CMVG Negative Abnormal CMV IgG POSITIVE Antibody Performed By: #### PTPTT, ALB, BILI, CA, CHM7, ENZ3, ALCOSU, CBCDFC, A1CB, SERDRG, HBSAB, HBSAG, HCAB, TOXOG, HAABG, HBCBG, HIV, EBVG, HSVG12, SYPHG, RUBOIB, VZISB, CMVG, QFTB, AFPTMR, THCCMS #### [facility] [address] [place] [address] #### HLAB #### [facility] (DEFAULT) [address] [address] QUANTIFERON TB GOLD IN Collected: 09/15/2017 Status: F Source: [facility] 12:03 PM [facility] REPOSITORY TYPE CODE TESTS RESULT [...] RUBOIB, VZISB, CMVG, QFTB, AFPTMR, THCCMS #### [facility] [address] [place] [address] [facility] [address] [place] [address] #### HLAB #### [facility] (DEFAULT) [address] [place] [address] ALPHAFETOPROTEIN TUMOR Collected: 09/15/2017 Status: F Source: [facility] MARKER 12:03 [facility] REPOSITORY TYPE CODE TESTS RESULT OUT OF REFERENCE UNITS RANGE LAB AFPTMR <8.5 ng/mL Alphafetoprotein Tumor Marker 2.5 Performed By: #### PTPTT, ALB, BILI, CA, CHM7, ENZ3, ALCOSU, CBCDFC, A1CB, SERDRG, HBSAB, HBSAG, HCAB, TOXOG, HAABG, HBCBG, HIV, EBVG, HSVG12, SYPHG, RUBOIB, VZISB, CMVG, QFTB, AFPTMR, THCCMS #### [facility] [address] [place] [address] [address] [place] [address] #### HLAB #### U [facility] (DEFAULT) [address] [address] THC GCMS CONFIRMATION Collected: 09/15/2017 Status: F Source: [facility] 12:03 [facility] REPOSITORY TYPE CODE TESTS RESULT OUT OF REFERENCE UNITS RANGE LAB THCCMS 5 ng/mL THC GCMS Confirmation NONE DETECTED Result Comment: This Gas Chromatography Mass Spectrometry (GC/MS) test was developed and its performance characteristics determined by Toxicology Laboratory at [facility]. It has not been cleared or approved [...] VZISB, CMVG, QFTB, AFPTMR, THCCMS #### [facility] [address] [place] [address] [facility] [address] [place] [address] #### HLAB #### U [facility] (DEFAULT) [address] [place] [address] VOLUME MEASURED Collected: 09/15/2017 Status: F Source: [facility] 12:03 PM [facility] REPOSITORY TYPE CODE TESTS RESULT OUT OF REFERENCE UNITS RANGE LAB VOL 0-6000 mL Volume 2417 LAB INT hrs Interval 24 Performed By: #### JETHROB, UPCR24 #### [facility] [address] [place] [address] [facility] [address] [place] [address] PROTEIN/CREAT Collected: 09/15/2017 Status: F Source: [facility] RATIO,URINE, 24 HR 12:03 PM [facility] REPOSITORY TYPE CODE TESTS RESULT OUT OF RANGE REFERENCE UNITS LAB CREU1 mg/dL 47.00 Creatinine, urine mg/dL LAB CREU2 0.6-1.8 g/24 hrs 1.14 *CREATININE, UR, 24HR LAB PROT3 mg/dL PROTEIN, 26 urine mg/dL LAB PROT4 40-225 mg/24 hrs High Protein, 628 urine 24 hr LAB PRCR2 mg prot/mg crea 0.553 PROT/CREAT RATIO Performed By: #### VOLB, UPCR24 #### U [facility] [address] [place] [address] [facility] [address] [place] [address] ALLERGIES ALLERGIES DATE TYPE / CODE NAME / CODE REACTION SEVERITY SOURCE 07/21/2018 Drug Iodinated Shortness of Unknown [place] Allergy/416 Contrast- Oral breath Community 136763([facility] ED CT) Dye/[id number](R Repository XNORM) Drug/465341 Contrast Dye [id number] Severe Mu-Ism 003([facility] CT) System Repository ENCOUNTERS ENCOUNTERS ADMIT/DISCHARGE ACCOUNT NUMBER ADMITTING ENCOUNTER LOCATION SOURCE CLASS 08/14/2018 [id number] Ambulatory [facility] ng:WC Repository 08/06/2018 [id number] Ambulatory Building:[address] Repository 08/06/2018 [id number] Ambulatory Building:[address] Repository 07/27/2018 [id number] Ambulatory [facility] ng:OMD Repository 07/23/2018 [id number] Ambulatory [facility] ng:MEDOUTP Repository 07/23/2018 [id number] Ambulatory Building:[address] Repository 07/23/2018 [id number] Ambulatory Building:[address] Repository 07/22/2018/ [id number] [facility] In[facility] Building:[place] [address] [facility] Encounter oom: 1115Bed: [facility] Repository 07/22/2018 [id number] Ambulatory Building:[address] Repository 07/22/2018 [id number] Ambulatory Building:[address] Repository 07/22/2018 [id number] Ambulatory Building:[address] Repository 07/22/2018 [id number] Ambulatory Building:[address] Repository 07/22/2018 [id number] Ambulatory Building:[address] Repository 07/22/2018 [id number] Ambulatory Building:[facility] Repository 07/22/2018 [id number] Ambulatory Building:[facility] Repository 07/22/2018 [id number] Ambulatory BMSBuilding:BM [place] [facility] Repository 07/21/2018/ [id number] Ambulatory [address] ng:WC Repository 07/21/2018 [id number] Ambulatory [facility] ng:[facility] Repository 07/21/2018 [id number] Ambulatory [address] [place] [address] Repository 07/17/2018 [id number] Ambulatory Building:S93HY [facility] Repository 07/16/2018 [id number] Ambulatory Building:S93HY [facility] Repository 07/15/2018 [id number] Ambulatory Building:S93HY [facility] Repository 07/14/2018 [id number] Inpatient Building:S93HY [facility] Repository 07/13/2018 [id number] Inpatient Building:S93HY [facility] Repository 07/10/2018 [id number] Inpatient Building:S93HY [facility] Repository 07/09/2018 [id number] Inpatient Building:S93[facility] Repository 07/09/2018 [id number] Inpatient Building:S93[facility] Repository 07/08/2018 [id number] [facility] 07/07/2018 [id number] [facility] 07/07/2018 [id number] IHISSPATRICIA, Ambulatory Building:D2NEN [facility] Repository 06/27/2018/ [id number] SHARON, Inpatient Building:C16CR [facility] 018 PHILICIA S Encounter oom: 1629Bed: [facility] Repository 06/22/2018 [id number] Ambulatory Building:[facility] Repository 06/22/2018 [id number] Ambulatory Building:[facility] Repository 06/22/2018 [id number] Ambulatory Building:[facility] Repository 06/22/2018 [id number] Ambulatory Building:[facility] Repository 06/20/2018/ [id number] Helene, Ambulatory Mu-Ism Mu-Is[address] Regional ng:[facility] Repository 06/20/2018 [id number] Ambulatory [address] [place] [address] Repository 06/19/2018 [id number] Ambulatory [address] [place] [address] Repository 06/19/2018/ [id number] Helene, Ambulatory Mu-Ism Mu-Ism 018 [facility] Regional ng:[facility] Repository 06/19/2018 [id number] Ambulatory [address] [place] [address] Repository 06/05/2018 [id number] Ambulatory Building:[facility] Repository 04/30/2018/ [id number] Azul Castellanos [facility] 018 [facility] ng:[employer] 1,2,3 Listo om: Room 2 System Repository 04/21/2018 [id number] [facility] Repository 04/17/2018/ [id number] Ulysses, Ambulatory Mu-Ism Mu-Ism 018 [facility] Regional ng:[facility] Repository 04/17/2018 [id number] Ambulatory [address] [place] [address] Repository 04/16/2018 [id number] Ambulatory Building:FL[facility] Repository 04/16/2018 [id number] Ambulatory Building:BS1UR [facility] Repository 04/16/2018 [id number] Ambulatory Building:CT1CT [facility] Repository 04/16/2018 [id number] Ambulatory Building:CT1CT [facility] Repository 04/08/2018/ [id number] Maverick Luna Ambulatory Mu-Ism Mu-Ism 018 A [facility] Regional ng:[facility] Repository 04/08/2018 [id number] Ambulatory [address] [place] [address] Repository 03/31/2018/ [id number] Emanuel Azul Ambulatory [facility] Mu-Ism 018 L [facility] ng:[place] In om: Room 2 System Repository 03/16/2018 [id number] Ambulatory [facility] ng:OLS.AVEB Repository 03/10/2018 [id number] Ambulatory [facility] Repository 03/09/2018 [id number] Ambulatory [facility] ng:OLS.AVEB Repository 03/05/2018/ [id number] Srini Rodríguez Ambulatory [facility] 018 [facility] ng:[facility] Repository 03/05/2018 [id number] Ambulatory [address] [place] [address] Repository 03/02/2018 [id number] Ambulatory [facility] ng:OLS.AVEB Repository 02/24/2018 [id number] Ambulatory Building:[facility] Repository 02/23/2018 [id number] Ambulatory [facility] ng:OLS.AVEB Repository 02/17/2018 [id number] Ambulatory [facility] ng:OLS.AVEB Repository 02/16/2018/ [id number] BONNIE ARAUZ Ambulatory Building:[address] RRoom: [facility] Repository 02/13/2018/ [id number] [place] [address] lding:[facility] Repository 02/11/2018 [id number] Ambulatory [facility] ng:LAB Repository 02/10/2018 [id number] Ambulatory [facility] ng:OLS.AVEB Repository 02/10/2018 [id number] Ambulatory Building[facility] Repository 02/10/2018 [id number] Ambulatory Building:[address] Repository 02/09/2018 [id number] [facility] ng:OLS.AVEB Repository 02/02/2018/ [id number] Ambulatory [address] ng:[facility] Repository 01/31/2018 [id number] Ambulatory 9509 [facility] Repository 01/29/2018/ [id number] Ambulatory [place] 018 [facility] ng:HHLAB Repository 01/28/2018 [id number] Ambulatory Building:RDSPV [facility] Repository 01/28/2018 [id number] Ambulatory Building:[facility] Repository 01/26/2018 [id number] Ambulatory Building:GHNGA [facility] Repository 01/21/2018 [id number] Ambulatory Building:[facility] Repository 01/16/2018/ [id number] [facility]18 [facility] ng:[facility] Repository 01/13/2018/ [id number] [facility] Inpatient Building:[place] [address] KM LONNY Encounter oom: 1179Bed: [facility] Repository 01/13/2018 [id number] Ambulatory [address] [place] [address] Repository 01/12/2018/ [id number] Hiral, Emergency Mu-Ism Mu-Ism 018 [facility] ng: EDRoom: Critical access hospital System Repository 01/12/2018 [id number] Ambulatory [address] [place] [address] Repository 01/08/2018/ [id number] Ambulatory Samariran Mu-Ism 018 [facility] ng:[facility] Repository 01/08/2018/ [id number] Ambulatory [facility] Mu-Ism 018 [facility] ng:[facility] Repository 12/31/2017/ [id number] [facility]ulatory [facility] 018 [facility] Repository 12/26/2017/ [id number] SRINI MAURICIO Inpatient Building:R[address]ER[address] [place] [address] J Encounter om: 0920Bed: [facility] Repository 12/25/2017/ [id number] Sara, Emergency Mu-Ism Mu-Ism 018 Radames A [facility] ng: EDRoom: Health System Repository 12/22/2017/ [id number] EmanuelAzul goldberg Ambulatory Mu-Ism Mu-Ism 018 L [facility] ng:[facility] System Repository 12/22/2017/ [id number] EmanuelAzul Ambulatory [facility] Mu-Ism 018 L [facility] ng:[facility] oom: Room 2 System Repository 12/15/2017/ [id number] Ambulatory [facility] Mu-Ism 018 [facility] ng:[facility] Repository 12/10/2017/ [id number] Enoch Duckworth Inpatient Mu-Ism Mu-Ism 018 Encounter [facility] ng:Critical access hospital m: 0306Bed: 01 System Repository 12/08/2017/ [id number] Hiral, Emergency Mu-Ism Mu-Ism 018 Saulius [facility] ng: EDRoom: Critical access hospital System Repository 12/05/2017/ [id number] Ulysses, Ambulatory Mu-Ism Mu-Ism 018 Kyle [facility] ng:[facility] Repository 11/27/2017/ [id number] EmanuelAzul Ambulatory Mu-Ism Mu-Ism 018 L [facility] ng:[facility] System Repository 11/27/2017/ [id number] EmanuelAzul Ambulatory [facility] Mu-Ism 018 L [facility] System Repository 11/21/2017/ [id number] EmanuelAzul Ambulatory Mu-Ism Mu-Ism 018 L [facility] ng:[facility] Repository 11/21/2017/ [id number] Mago Dumont Ambulatory Mu-Ism Mu-Ism 018 M [facility] ng:[facility] Repository 11/14/2017/ [id number] Emanuel Azul Ambulatory [facility] Mu-Ism 018 L [facility] ng:[facility] oom: Room 1 System Repository 11/06/2017 [id number] Ambulatory Building:[facility] Repository 11/06/2017 [id number] Ambulatory Building:[facility] Repository 11/03/2017/ [id number] Emanuel, Azul Ambulatory Mu-Ism Mu-Ism 018 L [facility] ng:[facility] System Repository 11/03/2017/ [id number] Emanuel, Azul Ambulatory [facility] Mu-Ism 018 L [facility] ng:[facility] oom: Room 1 System Repository 10/20/2017/ [id number] EFRAIN, Ambulatory Building:[place] [address] [facility] SRoom: [facility] Repository 10/16/2017 [id number] Ambulatory Building:[address] Repository 10/16/2017 [id number] Ambulatory Building:[address] Repository 10/16/2017 [id number] Ambulatory Building:[facility] Repository 10/16/2017 [id number] Ambulatory Building:[facility] Repository 09/15/2017 [id number] Ambulatory Building:[address] Repository 09/15/2017 [id number] Ambulatory Building:[facility] Repository 09/02/2017 [id number] Ambulatory Building:[facility] Repository 09/01/2017 [id number] Ambulatory Building:[address] Repository PAYERS PAYERS ENCOUNTER GUARANTOR PAYER SUBSCRIBER SOURCE 08/14/2018 ALYCIA Davalos [id number] CR Insurance:MEDICARE MURPHYDOB: [address] PART A BPolicy [id number] Hospital [address]Czy: (419) Number: Repository [phone] () [id number] Date:2018-07-20 08/14/2018 Secondary ALYCIA H [place] Insurance:MEDICAL MURPHYDOB: [facility] [id number] Hospital Number: Repository [id number] Date:[id number] [address]JC: 08/14/2018 Tertiary NOT GIVENUNK [place] Insurance:SELF PAY [facility] Number: Effective Repository Date:2018-08-04 08/06/2018 KIM Louis Primary IKM Louis [facility] MURPHYDOB: Insurance:MEDICARE A MURPHYDOB: [place] [id number] AND BPolicy Number: [id number] [facility] [id number] Date:1422-37-46Dien [address] [place] [address] Repository 07[address]Lnh: (997) Name:CARE [id number]: () [phone] (HP) 08/06/2018 Secondary ALYCIA H [facility] Insurance:MMOPolicy MURPHYDOB: [place] Number: [id number] [facility] [id number] Date:8200-97-41Jbbx [address] [place] [address] Repository Name:MANAGED CARE [id number]: () 08/06/2018 Tertiary KIM Louis [facility] Insurance:MEDICAIDPol MURPHYDOB: [place] icy Number: [id number] [facility] [id number] Date:9723-32-85Ftnq [address] [place] [address] Repository Name:CAID [id number]: () 08/06/2018 KIM Louis Primary KIM Louis [facility] MURPHYDOB: Insurance:MEDICARE A MURPHYDOB: [place] [id number] AND BPolicy Number: [id number] [facility] [id number] [address] [place] [address] Date:9050-66-12Rwsa [address] [place] [address] Repository 819[address]Gbx: (531) Name:CARE 45223Yos: () [phone] (HP) 08/06/2018 Secondary ALYCIA Castellon [facility] Insurance:MMOPolicy MURPHYDOB: [place] Number: [id number] [facility] [id number] [address] [place] [address] Date:7013-77-67Mrsj [address] [place] [address] Repository Name:MANAGED CARE 76227Zvu: () 08/06/2018 Tertiary KIM Louis [facility] Insurance:MEDICAIDPol MURPHYDOB: [facility] Number: [id number] [facility] [id number] Date:4793-22-78Tpmk [address] [place] [address] Repository Name:CAID [id number]: () 07/27/2018 ALYCIA H Primary KIM Davalos [id number] CR Insurance:MEDICARE MURPHYDOB: [address] PART A [facility] [id number] [facility] [address]Jyh: 419) Number: Repository [phone] () [id number] Date:2018-07-20 07/27/2018 Secondary ALYCIA Ravinder [place] Insurance:MEDICAL MURPHYB: [facility] [id number] Hospital Number: Repository [id number] Date:0932-43-43AN[address] [address]GX: 07/27/2018 Tertiary NOT GIVENUNK [place] Insurance:SELF PAY [facility] Number: Effective Repository Date:2018-07-20 07/23/2018 ALYCIA H Primary KIM Louis [place] [id number] CR Insurance:MEDICARE MURPHYDOB: [address] A [facility] [id number] Hospital [address]Nsc: (419) Number: Repository [phone] () [id number] Date:2018-07-21 07/23/2018 Secondary ALYCIA H [place] Insurance:MEDICAL MURPHYDOB: [facility] [id number] Hospital Number: Repository [id number] Date:7390-56-58LV [address] [place] [address]JR: 07/23/2018 Tertiary NOT GIVENUNK [place] Insurance:SELF PAY Community INSURANCESt. [facility] Number: Effective Repository Date:2018-07-21 07/23/2018 KIM Louis Primary KIM Louis [facility] MURPHYDOB: Insurance:MEDICARE A SANTANADOB: [place] [id number] AND BPolicy Number: [id number] [facility] [id number] Date:7026-83-47Eqyt [address] [place] [address] Repository 32727Wcp: 419) Name:CARE [id number]: (HP) [phone] (HP) 07/23/2018 Secondary [facility] Insurance:MMOPolicy [facility] [place] Number: [id number] [facility] [id number] Date:2574-45-31Daom [address] [place] [address] Repository Name:MANAGED CARE [id number]: (HP) 07/23/2018 Tertiary KIM Louis [facility] Insurance:MEDICAIDPol [facility]: [place] icy Number: [id number] [facility] [id number] Date:9202-83-30Becp [address] [place] [address] Repository Name:CAID [id number]: (HP) 07/23/2018 KIM Louis Primary KIM Louis [facility] MURPHYDOB: Insurance:MEDICARE A SANTANADOB: [place] [id number] AND BPolicy Number: [id number] [facility] [id number] Date:7281-11-31Bejf [address] [place] [address] Repository 50854Swe: 419) Name:CARE [id number]: (HP) [phone] (HP) 07/23/2018 Secondary [facility] Insurance:MMOPolicy MURPHYDOB: University Number: [id number] [facility] [id number] Date:1240-74-48Sngp [address] [place] [address] Repository Name:MANAGED CARE [id number]: () 07/23/2018 Tertiary KIM Louis [facility] Insurance:MEDICAIDPol MURPHYDOB: [place] icy Number: [id number] [facility] [id number] Date:4411-54-62Jtyf [address] [place] [address] Repository Name:[facility] [id number]: () 07/22/2018 KIM M Primary KIM Louis [facility] MURPHYDOB: Insurance:MEDICARE A SANTANADOB: [place] [id number] AND BPolicy Number: [id number] [facility] [id number] Date:8221-37-77Svik [address] [place] [address] Repository 83092Nki: (670) Name:CARE [id number]: () [phone] () 07/22/2018 Secondary [facility] Insurance:MMOPolicy SANTANADOB: University Number: [id number] [facility] [id number] Date:9918-39-27Uqeq [address] [place] [address] Repository Name:MANAGED CARE [id number]: () 07/22/2018 Tertiary KIM Louis [facility] Insurance:MEDICAIDPol MURPHYDOB: [place] icy Number: [id number] [facility] [id number] Date:2166-59-89Ihai [address] [place] [address] Repository Name:CAID [id number]: () 07/22/2018 KIM M Primary KIM Louis [facility] MURPHYDOB: Insurance:MEDICARE A MURPHYDOB: [place] [id number] AND BPolicy Number: [id number] [facility] [id number] Date:7583-39-46Tlnh [address] [place] [address] Repository 70561Oop: (419) Name:CARE [id number]: (HP) [phone] (HP) 07/22/2018 Secondary ALYCIA H [facility] Insurance:MMOPolicy ALEXB: University Number: [id number] [facility] [id number] Date:1356-19-96Glty [address] [place] [address] Repository Name:MANAGED CARE [id number]: (HP) 07/22/2018 Tertiary KIM Louis [facility] Insurance:MEDICAIDPol SANTANAB: [place] icy Number: [id number] [facility] [id number] Date:6949-48-21Wdvh [address] [place] [address] Repository Name:CAID [id number]: (HP) 07/22/2018 [facility]LEX[facility] Insurance:MEDICARE A ALEXB: [place] [id number] AND BPolicy Number: [id number] [facility] [id number] Date:9804-12-28Knid [address] [place] [address] Repository 16029Mhc: (419) Name:CARE [id number]: (HP) [phone] (HP) 07/22/2018 Secondary ALYCIA H [facility] Insurance:MMOPolicy ALEXB: University Number: [id number] [facility] [id number] Date:2823-04-06Lffg [address] [place] [address] Repository Name:MANAGED CARE [id number]: (HP) 07/22/2018 Tertiary KIM Louis [facility] Insurance:MEDICAIDPol ALEXB: [place] icy Number: [id number] [facility] [id number] Date:1512-30-19Wmwq [address] [place] [address] Repository Name:MARITZA [id number]: (HP) 07/22/2018 KIM Louis Primary KIM Louis [facility] MURPHYDOB: Insurance:MEDICARE A MURPHYDOB: [place] [id number] AND BPolicy Number: [id number] [facility] [id number] Date:7701-74-64Gkwy [address] [place] [address] Repository 39595Oog: (413) Name:CARE [id number]: (HP) [phone] (HP) 07/22/2018 Secondary [facility] Insurance:MMOPolicy MURPHYDOB: University Number: [id number] [facility] [id number] Date:9811-36-21Tvlf [address] [place] [address] Repository Name:MANAGED CARE [id number]: (HP) 07/22/2018 Tertiary KIM M [facility] Insurance:MEDICAIDPol MURPHYDOB: [place] icy Number: [id number] [facility] [id number] Date:7334-32-19Vqvy [address] [place] [address] Repository Name:MARITZA [id number]: (HP) 07/22/2018 KIM Louis Primary KIM Louis [facility] MURPHYDOB: Insurance:MEDICARE A MURPHYDOB: [place] [id number] AND BPolicy Number: [id number] [facility] [id number] Date:0393-80-13Wzkz [address] [place] [address] Repository 22543Gmm: (459) Name:CARE [id number]: (HP) [phone] (HP) 07/22/2018 Secondary [facility] Insurance:MMOPolicy MURPHYDOB: University Number: [id number] [facility] [id number] Date:5415-98-23Tbcx [address] [place] [address] Repository Name:MANAGED CARE [id number]: () 07/22/2018 Tertiary KIM Louis [facility] Insurance:MEDICAIDPol MURPHYDOB: University icy Number: [id number] [facility] [id number] Date:8957-61-43Xewv [address] [place] [address] Repository Name:[facility] [id number]: () 07/22/2018 KIM M Primary KIM Louis [facility] MURPHYDOB: Insurance:MEDICARE A SANTANADOB: [place] [id number] AND BPolicy Number: [id number] [facility] [id number] Date:7652-81-95Riay [address] [place] [address] Repository 33223Gbs: (268) Name:CARE [id number]: (HP) [phone] (HP) 07/22/2018 Secondary [facility] Insurance:MMOPolicy SANTANADOB: University Number: [id number] [facility] [id number] Date:9784-46-64Ftlo [address] [place] [address] Repository Name:MANAGED CARE [id number]: (HP) 07/22/2018 Tertiary KIM Louis [facility] Insurance:MEDICAIDPol MURPHYDOB: [place] icy Number: [id number] [facility] [id number] Date:4424-58-59Vrjn [address] [place] [address] Repository Name:MARITZA [id number]: (HP) 07/22/2018 KIM M Primary KIM Louis [facility] MURPHYDOB: Insurance:MEDICARE A MURPHYDOB: [place] [id number] AND BPolicy Number: [id number] [facility] [id number] Date:1603-54-31Maes [address] [place] [address] Repository 46809Cgp: 419) Name:CARE [id number]: (HP) [phone] (HP) 07/22/2018 Secondary ALYCIA H [facility] Insurance:MMOPolicy ALEXB: University Number: [id number] [facility] [id number] Date:8829-15-29Unyo [address] [place] [address] Repository Name:MANAGED CARE [id number]: () 07/22/2018 Tertiary KIM Louis [facility] Insurance:MEDICAIDPol SANTANAB: [place] icy Number: [id number] [facility] [id number] Date:7933-10-64Qhii [address] [place] [address] [facility] [id number]: (HP) 07/22/2018 [facility] SANTANADOB: Insurance:MEDICARE A ALEXB: [place] [id number] AND BPolicy Number: [id number] [facility] [id number] Date:7213-28-70Uirs [address] [place] [address] Repository 90251Jhr: (419) Name:CARE [id number]: (HP) [phone] (HP) 07/22/2018 Secondary [facility] Insurance:MMOPolicy SANTANADOB: University Number: [id number] [facility] [id number] Date:8096-04-76Gmrk [address] [place] [address] Repository Name:MANAGED CARE [id number]: (HP) 07/22/2018 Tertiary KIM Louis [facility] Insurance:MEDICAIDPol SANTANADOB: [place] icy Number: [id number] [facility] [id number] [address] [place] [address] Date:7652-34-59Skxi[address] Repository Name:MARITZA [id number]: () 07/22/2018 ALYCIA Castellon Primary KIM Davalos [id number] CR Insurance:MEDICARE MURPHYDOB: [address] [facility] [id number] [facility] 91552Qkd: 419) Number: Repository [phone] () [id number] Date:2018-07-20 07/22/2018 Secondary ALYCIA H [place] Insurance:MEDICAL MURPHYDOB: [facility] 7154-08-77IST Hospital Number: Repository [id number] Date:8589-22-22DR [address] [address]MD: 07/22/2018 Tertiary NOT GIVENUNK [place] Insurance:SELF PAY [facility] Number: Effective Repository Date:2018-07-22 07/21/2018 ALYCIA H Primary KIM Davalos [id number] CR Insurance:MEDICARE MURPHYDOB: [address] [facility] [id number] Hospital 02473Pxy: 419) Number: Repository [phone] () [id number] Date:2018-07-20 07/21/2018 Secondary ALYCIA H [place] Insurance:MEDICAL MURPHYDOB: [facility] [id number] Hospital Number: Repository [id number] Date:5037-53-24RP [address] [place] [address]DA: 07/21/2018 Tertiary NOT GIVENUNK [place] Insurance:SELF PAY [facility] Number: Effective Repository Date:2018-07-20 07/21/2018 ALYCIA H Primary KIM Davalos [id number] CR Insurance:MEDICARE MURPHYDOB: [address] [facility] [id number] Hospital 45469Vwe: (419) Number: Repository [phone] () [id number] Date:2018-07-20 07/21/2018 Secondary ALYCIA H [place] Insurance:MEDICAL MURPHYDOB: [facility] [id number] Hospital Number: Repository [id number] Date:0289-62-99TK[address] [address]TR: 07/21/2018 Tertiary [facility] [place] Insurance:SELF PAY [facility] Number: Effective Repository Date:2018-07-20 07/21/2018 [facility] MURPHYDOB: Insurance:MedicarePol [facility] [id number] icy Number: [id number] [facility] [id number] Date:Plan Name:[address] [id number]: A [id number]: (KM) () 07/21/2018 Secondary [facility] Insurance:MedicarePol [place]: [facility] icy Number: [id number] Repository [id number] Date:Plan Name:[address] B [id number]: () 07/21/2018 [facility] Insurance:Medical MURPHYDOB: [facility] [id number] Repository Number: [id number] Date:Plan Name:Health 07/21/2018 [facility] Insurance:Medical MURPHYDOB: [facility] [id number] Repository Number: [id number] Date:Plan Name:Health 07/17/2018 KIMLTAC, [facility] MURPHYDOB: Insurance:MEDICARE A MURPHYDOB: [place] [id number] AND BPolicy Number: [id number] [facility] [id number] [address] [place] [address] Date:1057-49-80Lhcc[address] Repository 71126Jld: (557) Name:CARE [id number]: (HP) [phone] (HP) 07/17/2018 Secondary [facility] Insurance:MMOPoldanay JOHNSONB: University Number: [id number] [facility] [id number] Date:8840-60-50Wvmy [address] [place] [address] Repository Name:MANAGED CARE [id number]: (HP) 07/17/2018 Tertiary KIM Louis [facility] Insurance:MEDICAIDPol [facility] [place] icy Number: [id number] [facility] [id number] Date:5440-06-87Mbrz [address] [place] [address] Repository Name:MARITZA [id number]: () 07/16/2018 KIM M Primary KIM Louis [facility] MURPHYDOB: Insurance:MEDICARE A ALEXB: [place] [id number] AND BPolicy Number: [id number] [facility] [id number] Date:6962-49-80Bluw [address] [place] [address] Repository 43037Vxr: (084) Name:CARE [id number]: (HP) [phone] () 07/16/2018 Secondary [facility] Insurance:MMOPoldanay DILLONB: University Number: [id number] [facility] [id number] Date:4523-18-58Zafm [address] [place] [address] Repository Name:MANAGED CARE [id number]: () 07/16/2018 Tertiary KIM Louis [facility] Insurance:MEDICAIDPol MURPHYDOB: [place] icy Number: [id number] [facility] [id number] Date:9117-00-38Fncm [address] [place] [address] Repository Name:MARITZA [id number]: (HP) 07/15/2018 KIM Louis Primary KIM Louis [facility] MURPHYDOB: Insurance:MEDICARE A MURPHYDOB: [place] [id number] AND BPolicy Number: [id number] [facility] [id number] Date:3096-75-96Lcub [address] [place] [address] Repository 92192Gea: (153) Name:CARE [id number]: (HP) [phone] (HP) 07/15/2018 Secondary [facility] Insurance:MMOPolicy SANTANADOB: University Number: [id number] [facility] [id number] Date:8826-59-82Jyvc [address] [place] [address] Repository Name:MANAGED CARE [id number]: () 07/15/2018 Tertiary KIM Louis [facility] Insurance:MEDICAIDPol [facility] [place] icy Number: [id number] [facility] [id number] Date:2512-85-23Lywr [address] [place] [address] Repository Name:CAID [id number]: () 07/14/2018 KIM Louis Primary KIM Louis [facility] MURPHYDOB: Insurance:MEDICARE A SANTANADOB: [place] [id number] AND BPolicy Number: [id number] [facility] [id number] Date:4003-23-51Wuve [address] [place] [address] Repository 07767Zmh: (762) Name:CARE [id number]: (HP) [phone] (HP) 07/14/2018 Secondary [facility] Insurance:MMOPolicy MURPHYDOB: University Number: [id number] [facility] [id number] Date:9676-24-75Grlm [address] [place] [address] Repository Name:MANAGED CARE [id number]: (HP) 07/14/2018 Tertiary KIM Louis [facility] Insurance:MEDICAIDPol MURPHYDOB: [place] icy Number: [id number] [facility] [id number] Date:7598-55-49Cwdu [address] [place] [address] Repository Name:MARITZA [id number]: (HP) 07/13/2018 KIM Louis Primary KIM Louis [facility] MURPHYDOB: Insurance:MEDICARE A MURPHYDOB: [place] [id number] AND BPolicy Number: [id number] [facility] [id number] Date:1620-12-70Iiie [address] [place] [address] Repository 90719Wiw: (668) Name:CARE [id number]: (HP) [phone] (HP) 07/13/2018 Secondary ALYCIA H [facility] Insurance:MMOPolicy MURPHYDOB: University Number: [id number] [facility] [id number] Date:1967-99-06Ojyu [address] [place] [address] Repository Name:MANAGED CARE [id number]: () 07/13/2018 Tertiary KIM Louis [facility] Insurance:MEDICAIDPol MURPHYDOB: [place] icy Number: [id number] [facility] [id number] Date:1849-96-95Hbwd [address] [place] [address] Repository Name:RICHARDDeepa [id number]: (HP) 07/10/2018 KIM Louis Primary KIM Louis [facility] MURPHYDOB: Insurance:MEDICARE A MURPHYDOB: [place] [id number] AND BPolicy Number: [id number] [facility] [id number] Date:6030-36-66Lagc [address] [place] [address] Repository 42504Yca: 143) Name:CARE [id number]: (HP) [phone] (HP) 07/10/2018 Secondary [facility] Insurance:MMOPoldanay DILLONDOB: University Number: [id number] [facility] [id number] Date:9378-19-26Yito [address] [place] [address] Repository Name:MANAGED CARE [id number]: (HP) 07/10/2018 Tertiary KIM Louis [facility] Insurance:MEDICAIDPol [place]: [place] icy Number: [id number] [facility] [id number] Date:0641-33-72Oben [address] [place] [address] Repository Name:CAID [id number]: () 07/09/2018 KIM Heriberto Primary KIM M [facility] MURPHYDOB: Insurance:MEDICARE A ALEXB: [place] [id number] AND BPolicy Number: [id number] [facility] [id number] Date:1947-91-00Jwmz [address] [place] [address] Repository 84189Otw: (399) Name:CARE [id number]: (HP) [phone] (HP) 07/09/2018 Secondary [facility] Insurance:MMOPolicy ALEXB: University Number: [id number] [facility] [id number] Date:9533-24-44Nfwn [address] [place] [address] Repository Name:MANAGED CARE [id number]: (HP) 07/09/2018 Tertiary KIM Louis [facility] Insurance:MEDICAIDPol MURPHYDOB: [place] icy Number: [id number] [facility] [id number] Date:3133-59-50Yrmg [address] [place] [address] Repository Name:CAID [id number]: () 07/09/2018 KIM Louis Primary KIM M [facility] MURPHYDOB: Insurance:MEDICARE A MURPHYDOB: [place] [id number] AND BPolicy Number: [id number] [facility] [id number] Date:3400-72-11Rgvb [address] [place] [address] Repository 63994Jys: (535) Name:CARE [id number]: (HP) [phone] (HP) 07/09/2018 Secondary ALYCIA H [facility] Insurance:MMOPolicy SANTANADOB: University Number: [id number] [facility] [id number] Date:6377-86-43Uzcj [address] [place] [address] Repository Name:MANAGED CARE [id number]: (HP) 07/09/2018 Tertiary KIM Louis [facility] Insurance:MEDICAIDPol SANTANADOB: [place] icy Number: [id number] [facility] [id number] Date:1167-94-15Zzcg [address] [place] [address] Repository Name:CAID [id number]: (HP) 07/08/2018 KIM Louis Primary KIM Louis [facility] MURPHYDOB: Insurance:MEDICARE A SANTANADOB: [place] [id number] AND BPolicy Number: [id number] [facility] [id number] Date:2004-96-12Mcic [address] [place] [address] Repository 74713Wpi: (083) Name:CARE [id number]: (HP) [phone] (HP) 07/08/2018 Secondary ALYCIA H [facility] Insurance:MMOPolicy MURPHYDOB: University Number: [id number] [facility] [id number] Date:9067-52-70Mrcy [address] [place] [address] Repository Name:MANAGED CARE [id number]: (HP) 07/08/2018 Tertiary KIM Louis [facility] Insurance:MEDICAIDPol MURPHYDOB: [place] icy Number: [id number] [facility] [id number] Date:8854-34-53Ggzu [address] [place] [address] Repository Name:MARITZA [id number]: (HP) 07/07/2018 KIM Louis Primary KIM Louis [facility] MURPHYDOB: Insurance:MEDICARE A MURPHYDOB: [place] [id number] AND BPolicy Number: [id number] [facility] [id number] Date:3902-94-94Cimq [address] [place] [address] Repository 65333Uwm: (569) Name:CARE [id number]: (HP) [phone] (HP) 07/07/2018 Secondary ALYCIA H [facility] Insurance:MMOPolicy MURPHYDOB: University Number: [id number] [facility] [id number] Date:9512-74-17Tbhe [address] [place] [address] Repository Name:MANAGED CARE [id number]: (HP) 07/07/2018 Tertiary IKM Louis [facility] Insurance:MEDICAIDPol MURPHYDOB: [place] icy Number: [id number] [facility] [id number] Date:0826-51-69Hopd [address] [place] [address] Repository Name:MARITZA [id number]: (HP) 07/07/2018 KIM Louis Primary KIM Louis [facility] MURPHYDOB: Insurance:MEDICARE A MURPHYDOB: [place] [id number] AND BPolicy Number: [id number] [facility] [id number] Date:3042-47-92Exzm [address] [place] [address] Repository 90276Wxt: (628) Name:CARE [id number]: (HP) [phone] (HP) 07/07/2018 Secondary ALYCIA H [facility] Insurance:MMOPolicy SANTANADOB: University Number: [id number] [facility] [id number] Date:6832-65-41Wkxh [address] [place] [address] Repository Name:MANAGED CARE [id number]: () 07/07/2018 Tertiary KIM Louis [facility] Insurance:MEDICAIDPol MURPHYDOB: [place] icy Number: [id number] [facility] [id number] Date:[id number] [address] [place] [address] Repository Name:[facility] [id number]: () 06/27/2018 KIM Heriberto Primary KIM M [facility] MURPHYDOB: Insurance:MEDICARE A SANTANADOB: [place] [id number] AND BPolicy Number: [id number] [facility] [id number] Date:[id number] [address] [place] [address] Repository 67398Xbp: (694) Name:CARE [id number]: (HP) [phone] () 06/27/2018 Secondary [facility] Insurance:MMOPolicy SANTANADOB: University Number: [id number] [facility] [id number] Date:8507-46-75Bkzy [address] [place] [address] Repository Name:MANAGED CARE [id number]: () 06/27/2018 Tertiary KIM Louis [facility] Insurance:MEDICAIDPol MURPHYDOB: [place] icy Number: [id number] [facility] [id number] Date:5041-42-22Iuma [address] [place] [address] Repository Name:CAID [id number]: () 06/22/2018 KIM M Primary KIM Louis [facility] MURPHYDOB: Insurance:MEDICARE A MURPHYDOB: [place] [id number] AND BPolicy Number: [id number] [facility] [id number] Date:2842-56-40Vvlo [address] [place] [address] Repository 26340Ilf: (621) Name:CARE [id number]: (HP) [phone] (HP) 06/22/2018 [facility] Insurance:MMOPolicy SANTANADOB: University Number: [id number] [facility] [id number] Date:9405-83-58Tflw [address] [place] [address] Repository Name:MANAGED CARE [id number]: (HP) 06/22/2018 Tertiary KIM M [facility] Insurance:MEDICAIDPol SANTANADOB: [place] icy Number: [id number] [facility] [id number] Date:6370-34-92Zycb [address] [place] [address] Repository Name:CAID [id number]: (HP) 06/22/2018 KIM Louis Primary KIM M [facility] ALEXB: Insurance:MEDICARE A [facility]: [place] [id number] AND BPolicy Number: [id number] [facility] [id number] Date:6919-87-41Bmvh [address] [place] [address] Repository 32539Vgc: (529) Name:CARE [id number]: (HP) [phone] (HP) 06/22/2018 Secondary [facility] Insurance:MMOPolicy MURPHYDOB: University Number: [id number] [facility] [id number] Date:5655-63-50Usar [address] [place] [address] Repository Name:MANAGED CARE [id number]: (HP) 06/22/2018 Tertiary KIM Louis [facility] Insurance:MEDICAIDPol MURPHYDOB: [place] icy Number: [id number] [facility] [id number] Date:7778-07-00Hbvz [address] [place] [address] Repository Name:MARITZA [id number]: (HP) 06/22/2018 KIM Louis Primary KIM Louis [facility] MURPHYDOB: Insurance:MEDICARE A MURPHYDOB: [place] [id number] AND BPolicy Number: [id number] [facility] [id number] Date:3618-79-14Svmk [address] [place] [address] Repository 21733Knf: (859) Name:CARE [id number]: (HP) [phone] (HP) 06/22/2018 Secondary ALYCIA H [facility] Insurance:MMOPolicy MURPHYDOB: University Number: [id number] [facility] [id number] Date:5481-27-46Cwem [address] [place] [address] Repository Name:MANAGED CARE [id number]: (HP) 06/22/2018 Tertiary KIM Louis [facility] Insurance:MEDICAIDPol MURPHYDOB: [place] icy Number: [id number] [facility] [id number] Date:9802-34-88Tybe [address] [place] [address] Repository Name:MARITZA [id number]: (HP) 06/22/2018 KIM Louis Primary KIM Louis [facility] MURPHYDOB: Insurance:MEDICARE A MURPHYDOB: [place] [id number] AND BPolicy Number: [id number] [facility] [id number] Date:9465-16-37Ouxu [address] [place] [address] Repository 35732Tra: (565) Name:CARE [id number]: (HP) [phone] (HP) 06/22/2018 Secondary ALYCIA [facility] Insurance:MMOPolicy MURPHYDOB: University Number: [id number] [facility] [id number] Date:1903-89-22Nmfk[address] Repository Name:[facility] CARE [id number]: () 06/22/2018 [facility]:MEDICAIDPol [facility]: University icy Number: [id number] [facility] [id number] Date:4920-11-11Pgsw[address] Repository Name:[facility] 55814Wyl: () 06/20/2018 [facility] ALEXB: Insurance:MedicarePol [facility]: Hospitals [id number] icy Number: [id number] [facility] [id number] [place] [address] Date:Plan Name:[address] [id number]: A [id number]: (OX) () 06/20/2018 [facility] Insurance:MedicarePol MURPHYDOB: [facility] icy Number: [id number] Repository [id number] Date:Plan Name:[address] B [id number]: () 06/20/2018 [facility] Insurance:Medical MURPHYDOB: [facility] [id number] Repository Number: [id number] Date:Plan Name:Health 06/20/2018 [facility] Insurance:Medical MURPHYDOB: [facility] [id number] Repository Number: [id number] Date:Plan Name:Health 06/19/2018 [facility] ALEXB[facility] Insurance:MedicarePol MURPHYDOB: Hospitals [id number] icy Number: [id number] [address]ository [facility] [id number] [address] Date:Plan Name:[address] [id number]: A [id number]: (HK) (HP) 06/19/2018 [facility] Insurance:MedicarePol MURPHYDOB: Hospitals icy Number: [id number] Repository [id number] [address] Date:Plan Name:[address] B [id number]: (HP) 06/19/2018 [facility] Insurance:Medical MURPHYDOB: [facility] [id number] Repository Number: [id number] Date:Plan Name:Health 06/19/2018 [facility] MURPHYDOB: Insurance:MedicarePol MURPHYDOB: Hospitals [id number] icy Number: [id number] [address]ository [facility] [id number] Date:Plan Name:[address] [id number]: A [id number]: (HP) (HP) 06/19/2018 [facility] Insurance:MedicarePol MURPHYDOB: Hospitals icy Number: [id number] Repository [id number] [address] Date:Plan Name:[address] [id number]: (HP) 06/19/2018 [facility] Insurance:Medical MURPHYDOB: [facility] [id number] Repository Number: [id number] Date:Plan Name:Health 06/19/2018 [facility] Insurance:Medical MURPHYDOB: [facility] [id number] Repository Number: [id number] Date:Plan Name:Health 06/05/2018 KIM M Primary KIM M [place] MURPHYDOB: Insurance:MEDICARE A MURPHYDOB: [place] [id number] AND BPolicy Number: [id number] [facility] [id number] Date:3450-97-09Odth [address] [place] [address] Repository 40361Ptg: (386) Name:CARE [id number]: (HP) [phone] (HP) 06/05/2018 [facility] Insurance:MMOPolicy MURPHYDOB: University Number: [id number] [facility] [id number] Date:2840-03-16Bxnu [address] [place] [address] Repository Name:MANAGED CARE [id number]: (HP) 06/05/2018 Tertiary KIM Louis [facility] Insurance:MEDICAIDPol MURPHYB: [place] icy Number: [id number] [facility] [id number] Date:5514-21-30Crif [address] [place] [address] Repository Name:CAID [id number]: (HP) 04/21/2018 KIM M Primary KIM Louis [facility] MURPHYDOB: Insurance:MEDICARE A [facility]: [place] [id number] AND BPolicy Number: [id number] [facility] [id number] [address] [place] [address] Date:6359-13-36Uuwc [address] [place] [address] Repository 91630Aeu: (741) Name:CARE [id number]: (HP) [phone] (HP) 04/21/2018 [facility] Insurance:MMOPolicy MURPHYDOB: University Number: [id number] [facility] [id number] Date:2470-67-48Tjih [address] [place] [address] Repository Name:MANAGED CARE [id number]: (HP) 04/17/2018 [facility] MURPHYDOB: Insurance:MedicarePol [place]: [facility] [id number] icy Number: [id number] [facility] [id number] Date:Plan Name:[address] [id number]: A [id number]: (HP) (HP) 04/17/2018 [facility] Insurance:MedicarePol [place]ODOB: Hospitals icy Number: [id number] Repository [id number] Date:Plan Name:[address] B [id number]: (HP) 04/17/2018 [facility] Insurance:Medical MURPHYDOB: [facility] [id number] Repository Number: [id number] Date:Plan Name:Health 04/17/2018 [facility] Insurance:Medical MURPHYDOB: [facility] [id number] Repository Number: [id number] Date:Plan Name:Health 04/16/2018 KIM [facility] KIMCorey HospitalDOB: Insurance:MEDICARE A [facility]: [place] [id number] AND BPolicy Number: [id number] [facility] [id number] Date:7274-86-42Rhfm[address] Repository 97724Zqs: 419) Name:CARE [id number]: (HP) [phone] (HP) 04/16/2018 Secondary [facility] Insurance:MMOPolicy [place]ODOB: University Number: [id number] [facility] [id number] [address] [place] [address] Date:7692-86-43Kveo [address] [place] [address] Repository Name:MANAGED CARE [id number]: (HP) 04/16/2018 KIM Louis Primary ALYCIA H [facility] MURPHYDOB: Insurance:MMOPoldanay DILLONDOB: [place] [id number] Number: [id number] [facility] [id number] Date:8306-26-58Apdf [address] [place] [address] Repository 01387Pog: (906) Name:MANAGED CARE [id number]: (HP) [phone] (HP) 04/16/2018 Secondary KIM Louis [facility] Insurance:MEDICARE A MURPHYDOB: [place] AND BPolicy Number: [id number] [facility] [id number] Date:0080-98-84Lliv [address] [place] [address] Repository Name:CARE [id number]: () 04/16/2018 KIM Heriberto Primary ALYCIA H [facility] MURPHYDOB: Insurance:MMOPoldanay DILLONDOB: [place] [id number] Number: [id number] [facility] [id number] Date:6618-42-95Ehny [address] [place] [address] Repository 57830Tay: (419) Name:MANAGED CARE [id number]: (HP) [phone] () 04/16/2018 Secondary KIM Louis [facility] Insurance:MEDICARE A MURPHYDOB: [place] AND BPolicy Number: [id number] [facility] [id number] Date:3835-11-02Mwjn [address] [place] [address] Repository Name:CARE [id number]: () 04/16/2018 KIM M Primary ALYCIA H [facility] MURPHYDOB: Insurance:MMOPolicherson MURPHYDOB: [place] [id number] Number: [id number] [facility] [id number] Date:1315-65-52Irgu [address] [place] [address] Repository 82926Itw: (820) Name:MANAGED CARE [id number]: (HP) [phone] (HP) 04/16/2018 Secondary KIM M [facility] Insurance:MEDICARE A MURPHYDOB: University AND BPolicy Number: [id number] [facility] [id number] Date:0760-93-15Ivkn[address] Repository Name:CARE [id number]: (HP) 04/08/2018 [facility] MURPHYDOB: Insurance:MedicarePol [facility]: [facility] [id number] icy Number: [id number] Repository [facility] [id number] Date:Plan Name:[address] [id number]: A [id number]: () (HP) 04/08/2018 [facility] Insurance:MedicarePol [place]LANDODOB: Hospitals icy Number: [id number] Repository [id number] Date:Plan Name:[address] B [id number]: () 04/08/2018 [facility] Insurance:Medical MURPHYDOB: [facility] [id number] Repository Number: [id number] Date:Plan Name:Health 04/08/2018 [facility] Insurance:Medical MURPHYDOB: [facility] [id number] Repository Number: [id number] Date:Plan Name:Health 03/16/2018 [facility] Susannah [id number] Insurance:SELF PAY [address] [address]Bmx: (057) Number: Effective Repository [phone] (HP) Date:2018-03-16 03/10/2018 [facility] MURPHYDOB: Insurance:MEDICARE A MURPHYDOB: University [id number] AND BPolicy Number: [id number] [facility] [id number] Date:7970-99-44Oyzg [address] [place] [address] Repository 08650Yyj: (419) Name:CARE [id number]: (HP) [phone] (HP) 03/10/2018 Secondary [facility] Insurance:MMOPolicy MURPHYDOB: University Number: [id number] [facility] [id number] [address] [place] [address] Date:8638-29-84Jjsc [address] [place] [address] Repository Name:MANAGED CARE [id number]: (HP) 03/09/2018 [facility] Susannah [id number] Cr Insurance:SELF PAY [address] 6[address]Gel: (419) Number: Effective Repository [phone] (HP) Date:2018-03-09 03/05/2018 [facility] MURPHYDOB: Insurance:MedicarePol [facility]: Hospitals [id number] icy Number: [id number] [facility] [id number] Date:Plan Name:[address] [id number]: A [id number]: (HP) (HP) 03/05/2018 Secondary [facility] Insurance:MedicarePol [facility]: Hospitals icy Number: [id number] Repository [id number] Date:Plan Name:[address] B [id number]: (HP) 03/05/2018 Tertiary [facility] Insurance:Medical MURPHYDOB: [facility] [id number] Repository Number: [id number] Date:Plan Name:Health 03/05/2018 Tertiary [facility] Insurance:Medical [facility] Repository Number: [id number] Date:Plan Name:Health 03/02/2018 Alycia Primary NOT GIVENUNK [place] [id number] Cr Insurance:SELF PAY [address] [address]27[address]Ces: (419) Number: Effective Repository [phone] (HP) Date:2018-03-02 02/24/2018 KIM Louis Primary KIM Louis [facility] SANTANADOB: Insurance:MEDICARE A ALEXB: [place] [id number] AND BPolicy Number: [id number] [facility] [id number] Date:0372-98-83Ybrw [address] [place] [address] Repository 14938Hsx: (783) Name:CARE [id number]: (HP) [phone] () 02/24/2018 Secondary ALYCIA H [facility] Insurance:[facility] [place] Number: [id number] [facility] [id number] [address] [place] [address] Date:1705-72-14Xnkz [address] [place] [address] Repository Name:MANAGED CARE [id number]: (HP) 02/23/2018 Alycia Primary NOT GIVENUNK Susannah [id number] Cr Insurance:SELF PAY [address] 48272Woy: (419) Number: Effective Repository [phone] () Date:2018-02-23 02/17/2018 Alycia Primary NOT GIVENUNK [place] [id number] Cr Insurance:SELF PAY [address] 77747Ger: (419) Number: Effective Repository [phone] (HP) Date:2018-02-17 02/16/2018 KIM Louis Primary KIM Louis [facility] ALEXB: Insurance:MEDICARE A ALEXB: [place] [id number] AND BPolicy Number: [id number] [facility] [id number] Date:1498-27-22Aqxi [address] [place] [address] Repository 19159Wfi: (494) Name:CARE [id number]: (HP) [phone] (HP) 02/16/2018 Secondary ALYCIA H [facility] Insurance:Kolton JOHNSONB: [place] Number: [id number] [facility] [id number] Date:6086-15-75Bbdy [address] [place] [address] Repository Name:MANAGED CARE [id number]: () 02/11/2018 Alycia Primary KIM Davalos [id number] Cr Insurance:MEDICARE [place]: [address] PART A [facility] [id number] 17468Prk: (419) Number: Repository [phone] () [id number] Date:2018-01-19 02/11/2018 Secondary Alycia [place] [facility]ICAL [facility] [id number] Hospital Number: Repository [id number] Date:3526-85-40XR[address] [address]QP: 02/11/2018 Tertiary NOT GIVENUNK [place] Insurance:SELF PAY [facility] Number: Effective Repository Date:2018-02-01 02/10/2018 Alycia Primary NOT GIVENUNK [place] [id number] Cr Insurance:SELF PAY [address] 03971Dkg: (419) Number: Effective Repository [phone] () Date:2018-02-10 02/10/2018 KIM M Primary ALYCIA H [facility] MURPHYDOB: Insurance:[facility]AUnion Medical Centerdanay [facility]: [place] [id number] Number: [id number] [facility] [id number] Date:8068-00-21Ksql [address] [place] [address] Repository 92880Btc: (688) Name:MANAGED CARE [id number]: (HP) [phone] () 02/10/2018 Secondary KIM M [facility] Insurance:MEDICARE A MURPHYDOB: [place] AND BPolicy Number: [id number] [facility] [id number] [address] [place] [address] Date:6798-75-21Fzbe [address] [place] [address] Repository Name:CARE [id number]: (HP) 02/10/2018 KIM Louis Primary KIM Louis [facility] MURPHYDOB: Insurance:MEDICARE A SANTANADOB: [place] [id number] AND BPolicy Number: [id number] [facility] [id number] Date:6108-67-60Yeak [address] [place] [address] Repository 30002Bay: (330) Name:CARE [id number]: (HP) [phone] (HP) 02/10/2018 Secondary ALYCIA H [facility] Insurance:MMOPolicy SANTANADOB: [place] Number: [id number] [facility] [id number] [address] [place] [address] Date:4705-72-10Qirr [address] [place] [address] Repository Name:MANAGED CARE [id number]: (HP) 02/09/2018 Alycia Primary NOT GIVENUNK [place] [id number] Cr Insurance:SELF PAY [address] 76[address]Kjo: (419) Number: Effective Repository [phone] (HP) Date:2018-02-09 02/02/2018 KIM Louis Primary KIM [facility] ALEXB: Insurance:MedicarePol [place]ODOB: [facility] [id number] icy Number: Effective [id number] [facility] [address] Date:2018-01-[address] Repository [address] [place] [address] 7353-29-97Dtbx [address] [place] [address]Ntv: Name:CD:[id number] [address]Rtb: [id number], [place] (HP) [id number]: (800) (HP) [phone] (WP) 02/02/2018 Secondary ALYCIA Ravinder Cruz Insurance:Medical MURPHYDOB: [facility] Number: [id number] System Effective [address] Repository Date:2018-01-22 - [address] [place] [address] 1154-06-48Eofh [address]Vjo: Name:[facility] [address] [place] [address] (HP)Tel: [phone]) [phone]: (wp) [phone] 01/31/2018 [facility] MURPHYDOB: Insurance:MedicarePol MURPHYDOB: [facility] [id number] icy Number: [id number] Repository [facility] [id number] [address] [place] [address] Date:Plan Name:[address] [id number]: A [id number]: (VG) () 01/31/2018 [facility] Insurance:MedicarePol MURPHYDOB: [facility] icy Number: [id number] Repository [id number] Date:Plan Name:[address] B [id number]: () 01/31/2018 [facility] Insurance:Medical MURPHYDOB: [facility] [id number] Repository Number: [id number] Date:Plan Name:Health 01/31/2018 [facility] Insurance:Medical Hospitals [facility] Repository Number: [id number] Date:Plan Name:Health 01/29/2018 [facility] KIM Heriberto Davalos [id number] Insurance:MEDICARE MURPHYDOB: [address] PART A BPolicy [id number] [facility] 15527God: (419) Number: Repository [phone] () [id number] Date:2018-01-19 01/29/2018 Secondary Alycia [place] Insurance:MEDICAL MurphyDOB: [facility] [id number] Hospital Number: Repository [id number] Date:7876-15-63AE[address] [address]ZN: 01/29/2018 Tertiary NOT GIVENUNK [place] Insurance:SELF PAY [facility] Number: Effective Repository Date:2018-01-19 01/28/2018 KIM Louis Primary KIM Louis [facility] MURPHYDOB: Insurance:MEDICARE A SANTANADOB: [place] [id number] AND BPolicy Number: [id number] [facility] [id number] Date:9111-71-04Dzyj [address] [place] [address] Repository 24839Dma: (928) Name:CARE [id number]: (HP) [phone] (HP) 01/28/2018 Secondary [facility] Insurance:MMOPolicy SANTANADOB: University Number: [id number] [facility] [id number] Date:3834-84-86Kldf [address] [place] [address] Repository Name:MANAGED CARE [id number]: (HP) 01/28/2018 KIM Louis Primary KIM Louis [facility] MURPHYDOB: Insurance:MEDICARE A SANTANADOB: [place] [id number] AND BPolicy Number: [id number] [facility] [id number] Date:3009-27-98Smvh [address] [place] [address] Repository 39466Dzw: (849) Name:CARE [id number]: (HP) [phone] (HP) 01/28/2018 Secondary [facility] Insurance:MMOPolicy MURPHYDOB: University Number: [id number] [facility] [id number] Date:8821-40-05Inhn [address] [place] [address] Repository Name:MANAGED CARE [id number]: (HP) 01/26/2018 KIM Louis Primary KIM Louis [facility] MURPHYDOB: Insurance:MEDICARE A MURPHYDOB: [place] [id number] AND BPolicy Number: [id number] [facility] [id number] Date:8171-30-56Rutf [address] [place] [address] Repository 17395Yuq: (330) Name:CARE [id number]: (HP) [phone] (HP) 01/26/2018 Secondary ALYCIA H [facility] Insurance:MMOPolicy ALEXB: University Number: [id number] [facility] [id number] Date:1778-43-84Vbwk [address] [place] [address] Repository Name:MANAGED CARE [id number]: () 01/21/2018 KIM M Primary KIM Louis [facility] SANTANADOB: Insurance:MEDICARE A SANTANADOB: [place] [id number] AND BPolicy Number: [id number] [facility] [id number] Date:[id number] [address] [place] [address] Repository [id number]: (330) Name:CARE [id number]: (HP) [phone] (HP) 01/21/2018 Secondary ALYCIA H [facility] Insurance:MMOPolcarolay ALEXB: University Number: [id number] [facility] [id number] Date:7512-43-34Fulz [address] [place] [address] Repository Name:MANAGED CARE [id number]: () 01/16/2018 KIM Louis Primary KIM Louis Mu-Ism ALEXB: Insurance:MedicarePol MURPHYDOB: [facility] [id number] icy Number: Effective [id number] [facility] Date:2018-01-12 [facility] Repository [address] [place] [address] 3061-16-50Yhrw [address] [place] [address]Fwb: Name:CD:[id number] [address] [address]Lwk: [id number], [place] (XW) [phone]: (800) (HP) 000-0000 (WP) 01/16/2018 Secondary ALYCIA H Mu-Ism Insurance:Medical MURPHYDOB[facility]: [id number] System Effective [address] [place] [address] Repository Date:2018-01-[address] [place] [address] 3196-60-59Mawm [address]Nqb: Name:Medical MutualPO [address] [place] [address] (HP)Tel: [phone]) [phone]: (WP) [phone] 01/13/2018 KIM Lousi Primary KIM Louis [facility] MURPHYDOB: Insurance:MEDICARE A ORLANDODOB: [place] [id number] AND BPolicy Number: [id number] [facility] [id number] [address] [place] [address] Date:2860-13-56Udgn [address] [place] [address] Repository 91534Fyy: (919) Name:CARE [id number]: (HP) [phone] (HP) 01/13/2018 Secondary ALYCIA [facility] Insurance:MMOPolic ALEXB: [place] Number: [id number] [facility] [id number] [address] [place] [address] Date:9445-89-33Enfc [address] [place] [address] Repository Name:MANAGED CARE 15334Zzy: (HP) 01/13/2018 KIM [place] ALEXB: Insurance:MedicarePol [facility]: [facility] [id number] icy Number: [id number] [facility] [id number] Date:Plan Name:[address] [id number]: A [id number]: (HP) (HP) 01/13/2018 [facility] Insurance:MedicarePol MURPHYDOB: Hospitals icy Number: [id number] Repository [id number] [address] [place] [address] ROAD Date:Plan Name:[address] B [id number]: (HP) 01/13/2018 [facility] Insurance:Medical MURPHYDOB: [facility] [id number] Repository Number: [id number] Date:Plan Name:Health 01/12/2018 [facility]:MedicarePol [facility]: [facility] [id number] icy Number: Effective [id number] Date:2018-01-[address] Repository [address] [place] [address] 8020-89-27Uwrv [address] [place] [address]Xsh: Name:CD:[id number] [address] [address]Ygw: [id number], [place] (HP) [phone]: 800) (HP) 000-0000 (WP) 01/12/2018 [facility] Insurance:Medical ORLANDODOB: [facility] Number: [id number] System Effective [address] [place] [address] ROAD Repository Date:2018-01-[address] [place] [address] 6097-07-94Vsgl [address]Esq: Name:Medical [facility] [address] [place] [address] (HP)Tel: [phone]) [phone]: (WP) [phone] 01/12/2018 KIM Louis [facility] MURPHYDOB: Insurance:MedicarePol MURPHYDOB: Hospitals [id number] icy Number: [id number] [address] [facility] [id number] [address] [facility] [address] [address] [place] [address] Date:Plan Name:[address] [id number]: A [id number]: (HP) (HP) 01/12/2018 [facility] Insurance:MedicarePol MURPHYDOB: Hospitals icy Number: [id number] Repository [id number] 79 [facility] Date:Plan Name:[address] B [id number]: (HP) 01/12/2018 [facility] Insurance:Medical ORLANDODOB: [facility] [id number] Repository Number: [id number] Date:Plan Name:Health 01/12/2018 [facility] Insurance:[facility] Repository Number: [id number] Date:Plan Name:Health 01/08/2018 [facility] Primary [facility] MURPHYDOB: Insurance:1500 MURPHYDOB: [facility] [id number] MEDICARE [id number] System [facility] PRIMARYPolicy Number: 79 [facility] Repository [address] [place] [address] [place] [address]Npd: Date:2017-12-22 [address]Cct: 0381-55-42Gwec (HP) Name:CD:[id number] O ()Tel: (915) OOY 83259ZOCLTPANX, 000-0000 () [place] [address]HJ: 01/08/2018 Secondary [facility] Insurance:1500 MURPHYDOB: [facility] [id number] System Number: Effective [address] [facility] [address] [address] Repository Date:2017-12-[address] [place] [address] 2271-85-29Krwg [address]Mqi: Name:CD:[id number] [address] [place] [address] (HP)Tel: [phone]) [phone]: (WP) [phone] 01/08/2018 KIM Louis Primary KIM Cruz ALEXB: Insurance:[facility]Well[facility] HospitalB: [facility] [id number] icy Number: Effective [id number] [facility] Date:2017-12-31 [facility] Repository [address] [place] [address] 4978-27-22Mupi [address] [place] [address]Ckd: Name:CD:[id number] [address] [address]Cej: [id number], [place] (HP) [phone]: (168) (HP) 000-0000 (WP) 01/08/2018 Secondary ALYCIA Cruz Insurance:Medical [facility]: [facility] MutualPolicy Number: [id number] System Effective 79 [facility] Repository Date:2017-12-31 - [address] [place] [address] 0758-97-40Ojln [address]Ers: Name:Medical MutualPO [address] [place] [address] (HP)Tel: [phone]) [phone]: (WP) [phone] 12/31/2017 KIM Louis Primary KIM Cruz ALEXB: Insurance:[address] [place], [place] [address]B: [facility] [id number] MEDICARE [id number] System [facility] PRIMARYPolicy Number: 79 [facility] Repository [address] [place] [address] [place] [address]Kup: Date:2017-12-22 [address]Rym: 2100-12-31plan (HP) Name:CD:[id number] O (HP)Tel: (000) [address] [address]DNCUHPXNH, 000-0000 (WP) [place] [address]PV: 12/31/2017 Secondary ALYCIA Guerraaritan Insurance:1500 MURPHYDOB: [facility] [id number] System Number: Effective [address] [place] [address] Repository Date:2017-12-22 - [address] [place] [address] 6149-53-03Uowq [address]Afg: Name:CD:[id number] [address] [place] [address] (HP)Tel: ([phone]) [phone]: (WP) [phone] 12/26/2017 KIM Heriberto Primary KIM M [facility] MURPHYDOB: Insurance:MEDICARE A [facility]: [place] [id number] AND BPolicy Number: [id number] [facility] [id number] [address] [place] [address] Date:6603-04-52Myra [address] [place] [address] Repository 94488Dez: 330) Name:CARE 01877Rsi: (HP) [phone] (HP) 12/26/2017 Secondary ALYCIA [facility] Insurance:MMOPolicy ORLANDODOB: University Number: [id number] [facility] [id number] [address] [place] [address] Date:8816-74-97Ylfz [address] [place] [address] Repository Name:MANAGED CARE 40414Tdu: (HP) 12/25/2017 KIM Louis Primary KIM M Mu-Ism [facility]: Insurance:MedicarePol [facility]B: [facility] [id number] icy Number: Effective [id number] [facility] RO[address] Date:2017-12-25 [facility] Repository [address] [place] [address] 3894-34-62Ayur [address] [place] [address]Vnc: Name:CD:[id number] [address] [address]Rmk: [id number], [place] (HP) [phone]: (418) (HP) 000-0000 (WP) 12/25/2017 Secondary ALYCIA H Mu-Ism Insurance:Medical MURPHYDOB: [facility] MutualPolicy Number: [id number] System Effective [address] Repository Date:2017-12-25 - [address] [place] [address] 2898-84-93Uait [address]Ptq: Name:Medical MutualPO [address] [place] [address] (HP)Tel: [phone]) [phone]: (WP) [phone] 12/22/2017 KIM Louis Primary KIM JOHNSONB: Insurance:MedicarePol MURPHYDOB: [facility] [id number] icy Number: Effective [id number] [facility] Date:2017-12-22 - [address] Repository [address] [place] [address] 9424-54-08Pmip [address] [place] [address]Msj: Name::[id number] [address] [address]Gaz: [id number], [place] (HP) [phone]: ([phone]) (HP) [phone] (WP) 12/22/2017 Secondary ALYCIA H Mu-Ism Insurance:Medical MURPHYDOB: [facility] Number[facility] [id number] System Effective [address] [facility] [address] [address] Repository Date:2017-12-22 - [address] [place] [address] 0726-66-16Nfpt [address]97[address]Rac: Name:Medical MutualPO [address] [place] [address] (HP)Tel: [phone]) [phone]: (WP) [phone] 12/22/2017 KIM Louis Primary KIM JOHNSONB: Insurance:1500 MURPHYDOB: [facility] [id number] MEDICARE [id number] [address] [facility] PRIMARYPolicy Number: [address] Repository [address] [place] [address] [place] [address]Wpi: Date:2017-12-2242124-8837Dfv: 9359-98-21Mxpb (HP) Name:CD:[id number] O (HP)Tel: (000) [address] [address]GOUFPDBBS, 000-0000 (WP) [place] [address]QG: 12/22/2017 Secondary ALYCIA H Mu-Ism Insurance:1500 MURPHYDOB: [facility] [id number] System Number: Effective 79 [facility] Repository Date:2017-12-22 - [address] [place] [address] 7479-06-79Frrk [address]Ppa: Name:CD:[id number] [address] [place] [address] ()Tel: [phone]) [phone]: (WP) [phone] 12/15/2017 KIM M Primary [facility] Insurance:1500 [facility]B: [facility] [id number] MEDICARE [id number] System [facility] PRIMARYPolicy Number: 79 [facility] Repository [address] [place] [address] [place] [address] [id number]: Date:2017-11-27 [id number]: 5162-85-55Trvj (HP) Name:CD:[id number] O (HP)Tel: (000) [address] [address]PEWVDIQMS, 000-0000 (WP) [place] [address]JT: 12/15/2017 Secondary ALYCIA H Mu-Ism Insurance:1500 MURPHYDOB: [facility]aPolicy [id number] System Number: Effective 79 [facility] Repository Date:2017-11-27 - [address] [place] [address] 1507-19-47Fhtm [address]Uvx: Name:CD:[id number] [address] [place] [address] (HP)Tel: ([phone]) [phone]: (WP) [phone] 12/10/2017 KIM M Primary KIM Cruz SANTANADOB: Insurance:MedicarePol MURPHYDOB: [facility] icy Number: Effective [id number] [address] [facility] Date:2017-12-[address] [facility] [address] [address] Repository [address] [place] [address] 5629-90-89Ovgm [address] [place] [address]Efm: Name:CD:[id number] [address] [address]Mza: [id number] [place] [address] (HP) [phone]: (800) (HP) [phone] (WP) 12/10/2017 Secondary ALYCIA H Mu-Ism Insurance:Medical MURPHYDOB: [facility] Number: [id number] System Effective [address] [facility] [address] Repository Date:2017-12-[address] [place] [address] 0350-63-41Wueg [address]Otc: Name:Medical [address]PO [address] [place] [address] (HP)Tel: [phone]) [phone]: (WP) [phone] 12/08/2017 KIM M Primary KIM Cruz ALEXB: Insurance:MedicarePol [facility]: [facility] icy Number: Effective [id number] Date:2017-12-[address] [facility] [address] Repository [address] [place] [address] 3754-22-76Mkkl [address] [place] [address]Cjl: Name:CD:[id number] [address] [address]Hsw: [id number] [place] [address] (HP) [phone]: (800) (HP) 000-0000 (WP) 12/08/2017 Secondary ALYCIA H Mu-Ism Insurance:Medical MURPHYDOB: [facility] Center[facility] Number: [id number] System Effective [address] Repository Date:2017-12-[address] [place] [address] 9700-31-26Byas [address]Dkt: Name:Medical MutualPO [address] [place] [address] (HP)Tel: [phone]) [phone]: (WP) [phone] 12/05/2017 KIM M Primary KIM Guerraaritan ALEXB: Insurance:MedicarePol MURPHYDOB: [facility] [id number] icy Number: Effective [id number] [address] [facility] Date:2017-12-05 [facility] Repository [address] [place] [address] 9453-50-18Lncd [address] [place] [address]Gcx: Name:CD:[id number] [facility] [address]Nxw: [id number], [place] (HP) [phone]: 800) (HP) [phone] (WP) 12/05/2017 Secondary ALYCIA H Mu-Ism Insurance:Medical MURPHYDOB: [facility] CenterPolicy Number: [id number] System Effective [address] [facility] [address] [address] Repository Date:2017-12-[address] [place] [address] 8075-25-33Oaon [address]Ehx: Name:Medical MutualPO [address] [place] [address] (HP)Tel: [phone]) [phone]: (WP) [phone] 11/27/2017 KIM Louis Primary KIM Louis Gideon JOHNSONB: Insurance:MedicarePol MURPHYDOB: [facility] icy Number: Effective [id number] [facility] [address] Date:2017-11-[address] [facility] [address] [address] Repository [address] [place] [address] 7045-02-80Ohhb [address] [place] [address] [id number]: Name:CD:[id number] [id number]: [id number], [place] (HP) [phone]: (333) (HP) [phone] (WP) 11/27/2017 Secondary ALYCIA H Mu-Ism Insurance:Medical MURPHYDOB: [facility] CenterPolicy Number: [id number] System Effective [address] [facility] [address] [address] Repository Date:2017-11-27 - [address] [place] [address] 3610-59-99Mcru [address]Hqs: Name:Medical MutualPO [address] [place] [address] ()Tel: (003) [phone]: (WP) [phone] 11/27/2017 KIM Louis Primary KIM JOHNSONB: Insurance:1500 [facility]: [facility] [id number] MEDICARE [id number] System [facility] PRIMARYPolicy Number: [address] [facility] Repository [address] [place] [address] [place] [address] [id number]: Date:2017-11-14 [id number]: 6023-09-50Gclm () Name:CD:[id number] O ()Tel: 000) [address] [address]FTLIVQUWM, 000-0000 (WP) [place] [address]IT: 11/27/2017 Secondary ALYCIA H Mu-Ism Insurance:1500 MURPHYDOB: [facility] [id number] System Number: Effective [address] [facility] [address] [address] Repository Date:2017-11-14 - [address] [place] [address] 8743-10-91Uoez [address]Knb: Name:CD:[id number] [address] [place] [address] ()Tel: ([phone]) [phone]: (WP) [phone] 11/21/2017 KIM Louis Primary KIM JOHNSONB: Insurance:MedicarePol [place]ODOB: [facility] icy Number: Effective [id number] System [facility] Date:2017-11-[address] Repository [address] [place] [address] 5120-43-11Nykp [address] [place] [address] [id number]: Name:CD:[id number] [address]Nhl: [id number], [place] (HP) [phone]: (800) (HP) [phone] (WP) 11/21/2017 Secondary ALYCIA Cruz Insurance:Medical MURPHYDOB: [facility] CenterPolicy Number: [id number] System Effective [address] [place] [address] ROAD Repository Date:2017-11-[address] [place] [address] 2716-41-94Booh [address]Xhl: Name:Medical MutualPO [address] [place] [address] (HP)Tel: ([phone]) [phone]: (WP) [phone] 11/21/2017 KIM Louis Primary KIM DILLONDOB: Insurance:MedicarePol [facility]: [facility] [id number] icy Number: Effective [id number] [facility] [address] Date:2017-11-[address] [facility] Repository [address] [place] [address] 4127-17-01Ecxo [address] [place] [address] [id number]: Name:CD:[id number] [address]Vhz: [id number] [place] [address] (HP) [phone]: (800) (HP) 000-0000 (WP) 11/21/2017 Secondary ALYCIA Mu-Ism Insurance:Medical MURPHYDOB: [facility] CenterPolicy Number: [id number] System Effective [address] [place] [address] ROAD Repository Date:2017-11-[address] [place] [address] 7919-66-21Ehvw [address]Dxd: Name:Medical MutualPO [address] [place] [address] (HP)Tel: ([phone]) [phone]: (WP) [phone] 11/14/2017 KIM Louis Primary KIM M Mu-Ism MURPHYDOB: Insurance:1500 [facility]: [facility] [id number] MEDICARE [id number] [facility] PRIMARYPolicy Number: [address] Effective [address] [place] [address] [id number]: Date:2017-08-12 [id number]: 2100-12-31plan (HP) Name:CD:[id number] O (HP)Tel: (294) [address] [address]YOIGIIGRY, 000-0000 (WP) [place] [address]PP: 11/14/2017 Secondary ALYCIA Cruz Insurance:1500 ORLANDODOB: [facility] MUTUALPolicy [id number] System Number: Effective [facility] Date:2017-08-12 - [address] [place] [address] 7132-35-69Okye [address]Lcd: Name:CD:[id number] [address] [place] [address] (HP)Tel: (573) [phone]: (WP) [phone] 11/06/2017 KIM Heriberto Primary KIM M [facility] MURPHYDOB: Insurance:MEDICARE A SANTANADOB: [place] [id number] AND BPolicy Number: [id number] [facility] [id number] [address] [place] [address] Date:7520-86-22Wzkj [address] [place] [address] Repository 99231Jfo: (330) Name:[facility] 57438Zcs: (HP) [phone] (HP) 11/06/2017 Secondary ALYCIA H [facility] Insurance:MMOPolicy MURPHYDOB: [place] Number: [id number] [facility] [id number] [address] [place] [address] Date:4562-68-16Bqsu [address] [place] [address] Repository Name:MANAGED CARE 49756Zet: (HP) 11/06/2017 KIM M Primary KIM Louis [facility] MURPHYDOB: Insurance:MEDICARE A MURPHYDOB: [place] [id number] AND BPolicy Number: [id number] [facility] [id number] [address] [place] [address] Date:3157-10-67Flcb [address] [place] [address] Repository 46646Qzp: (759) Name:CARE 48902Iaq: (HP) [phone] (HP) 11/06/2017 Secondary ALYCIA Castellon [facility] Insurance:[facility]ol[facility] SANTANADOB: [place] Number: [id number] [facility] [id number] [address] [place] [address] Date:0873-35-26Ozji [address] [place] [address] Repository Name:MANAGED CARE 73577Htm: (HP) 11/03/2017 KIM M Primary ALYCIA Castellon Mu-Ism MURPHYDOB: Insurance:Medical MURPHYDOB: [facility] [id number] MutualPolicy Number: [id number] [facility] Effective [address] [place] [address] [place] [address] Date:2017-11-[address] [place] [address] [id number]: 6013-62-36Sulr [address]Xjb: Name:Medical MutualPO () [address] [address]XCSEGWKGU, (HP)Tel: [facility]) [place] [address]DX: [phone] (WP) 11/03/2017 Secondary KIM Heriberto Mu-Ism Insurance:MedicarePol [place]ODOB: [facility] icy Number: Effective [id number] System Date:2017-11-03 [facility] Repository 6970-32-91Nkqo [address] [place] [address] Name:CD:[id number] [id number]: 649200KSYCPAKXKC, [place] [address]OF: (800) (HP) [phone] (WP) 11/03/2017 KIM Heriberto Primary KIMSUE Guerraaritan MURPHYDOB: Insurance:1500 OR[place]ODOB: [facility] [id number] MEDICARE [id number] [facility] PRIMARYPolicy Number: [address] Effective [address] [place] [address] [id number]: Date:2017-11-03 [id number]: 2100-12-31Plan (HP) Name:CD:[id number] O (HP)Tel: 000) [address] [address]PXWCMLTGS, 000-0000 (WP) [place] [address]WR: 11/03/2017 Secondary ALYCIA Ravinder Cruz Insurance:1500 ORLANDODOB: [facility]aPolicy [id number] System Number: Effective [facility] Date:2017-11-03 - [address] [place] [address] 1413-16-44Byzv [address]Slq: Name:CD:[id number] [address] [place] [address] (HP)Tel: (332) [phone]: (WP) [phone] 10/20/2017 KIM M Primary KIM M [facility] MURPHYDOB: Insurance:MEDICARE A SANTANADOB: [place] [id number] AND BPolicy Number: [id number] [facility] [id number] [address] [place] [address] Date:3404-91-02Uuee [address] [place] [address] Repository 42429Rqt: (330) Name:CARE [address]25Cqf: (HP) [phone] (HP) 10/20/2017 Secondary ALYCIA H [facility] Insurance:MMOPolicy MURPHYDOB: [place] Number: [id number] [facility] [id number] [address] [place] [address] Date:3745-97-16Wrnj [address] [place] [address] Repository Name:MANAGED CARE 65268Ftu: (HP) 10/16/2017 KIM Louis Primary KIM Louis [facility] MURPHYDOB: Insurance:MEDICARE A MURPHYDOB: [place] [id number] AND BPolicy Number: [id number] [facility] [id number] Date:6954-57-94Pluz [address] [place] [address] Repository 01984Nuq: (330) Name:CARE [id number]: (HP) [id number] (HP) 10/16/2017 Secondary [facility] Insurance:MMOPolicy SANTANADOB: University Number: [id number] [facility] [id number] Date:8005-68-31Lzeh [address] [place] [address] Repository Name:MANAGED CARE [id number]: (HP) 10/16/2017 KIM Louis Primary KIM Louis [facility] MURPHYDOB: Insurance:MEDICARE A SANTANADOB: [place] [id number] AND BPolicy Number: [id number] [facility] [id number] Date:1115-95-97Tlkp [address] [place] [address] Repository [id number]: (330) Name:CARE [id number]: (HP) [id number] (HP) 10/16/2017 Secondary [facility] Insurance:MMOPoldanay DILLONDOB: University Number: [id number] [facility] [id number] Date:9382-15-56Kgxw [address] [place] [address] Repository Name:MANAGED CARE [id number]: (HP) 10/16/2017 KIM Louis Primary KIM Louis [facility] MURPHYDOB: Insurance:MEDICARE A MURPHYDOB: [place] [id number] AND BPolicy Number: [id number] [facility] [id number] Date:3700-48-44Sxcj [address] [place] [address] Repository [id number]: (330) Name:CARE [id number]: (HP) [id number] (HP) 10/16/2017 Secondary ALYCIA H [facility] Insurance:[place] ALEXB: University Number: [id number] [facility] [id number] Date:8310-86-39Axvm [address] [place] [address] Repository Name:MANAGED CARE [id number]: (HP) 10/16/2017 KIM Louis Primary KIM Louis [facility] SANTANADOB: Insurance:MEDICARE A SANTANADOB: [place] [id number] AND BPolicy Number: [id number] [facility] [id number] Date:6543-59-41Hkew [address] [place] [address] Repository 11660Hru: (330) Name:CARE [id number]: (HP) [id number] (HP) 10/16/2017 Secondary ALYCIA H [facility] Insurance:ANITHALydiadanay ALEXB: University Number: [id number] [facility] [id number] Date:6331-17-30Nlil [address] [place] [address] Repository Name:MANAGED CARE [id number]: (HP) 09/15/2017 KIM Louis Primary KIM Heriberto [facility] SANTANADOB: Insurance:MEDICARE A MURPHYDOB: [place] [id number] AND BPolicy Number: [id number] [facility] [id number] Date:[id number] [address] [place] [address] Repository [id number]: (330) Name:CARE [id number]: (HP) [id number] (HP) 09/15/2017 Secondary ALYCIA H [facility] Insurance:MMOPoldanay JOHNSONB: University Number: [id number] [facility] [id number] Date:[id number] [address] [place] [address] Repository Name:MANAGED CARE [id number]: (HP) 09/15/2017 KIM Louis Primary KIM Louis [facility] SANTANADOB: Insurance:MEDICARE A SANTANADOB: [place] [id number] AND BPolicy Number: [id number] [facility] [id number] Date:[id number] [address] [place] [address] Repository [id number]: (394) Name:CARE [id number]: (HP) [phone] (HP) 09/15/2017 Secondary [facility] Insurance:MMRemy DILLONB: University Number: [id number] [facility] [id number] Date:[id number] [address] [place] [address] Repository Name:MANAGED CARE [id number]: (HP) 09/02/2017 KIM Louis Primary KIM Louis [facility] SANTANADOB: Insurance:MEDICARE A SANTANADOB: [place] [id number] AND BPolicy Number: [id number] [facility] [id number] Date:2394-21-36Dcef [address] [place] [address] Repository [id number]: (775) Name:CARE [id number]: (HP) [id number] (HP) 09/02/2017 Secondary ALYCIA H [facility] Insurance:MMOPolicherson DILLONDOB: University Number: [id number] [facility] [id number] Date:[id number] [address] [place] [address] Repository Name:MANAGED CARE [id number]: (HP) 09/01/2017 KIM Louis Primary KIM Louis [facility] SANTANADOB: Insurance:MEDICARE A ALEXB: [place] [id number] AND [facility] Number: [id number] [facility] [id number] [address] [place] [address] Date:[id number] [address] [place] [address] Repository [id number]: (331) Name:CARE [id number]: () [phone] () 09/01/2017 Secondary ALYCIA Castellon [facility] Insurance:MMOPoldanay JOHNSONB: [place] Number: [id number] [facility] [id number] [address] [place] [address] Date:[id number] [address] [place] [address] Repository Name:MANAGED CARE [id number]: ()
== END 2018-08-03 23:59 ==
LOC: WC 12:09
PROVIDERS: Family Provider Nurse Practitioner Family; PCP Nurse Practitioner Family; Visit Provider Nurse Practitioner Family
DX: L59.8 Other specified disorders of the skin and subcutaneous tissue related to radiation (principal); Y84.2 Radiological procedure and radiotherapy as the cause of abnormal reaction of the patient, or of later complication, without mention of misadventure at the time of the procedure; C67.9 Malignant neoplasm of bladder, unspecified; C79.89 Secondary malignant neoplasm of other specified sites; N30.10 Interstitial cystitis (chronic) without hematuria; Z87.891 Personal history of nicotine dependence
CPT/HCPCS: 99213; G0463